=== PATIENT | female | born 1965 | race Caucasian/White ===

== ENCOUNTER → 2018-04-14 | Outpatient (CLI) | payer OTHER ==
[~2018-04-14] MED LIST: ACET-1487 PO; ALBUAER2 INH; ALPR-411 PO; ASPI81TA28 PO; CALCTAB5 PO; CHOL100010 PO; CYAN100T PO; DICL1GEL12 TOP; IPRASOL4 INH; LEVO50TA6 PO; LINA1CAP2 PO; LPT40 PO; METO25TA56 PO; MOME200A INH; OMEP20CA9 PO; PARO1TAB29 PO; PRED10TA PO; TIOTCAP INH; ZNF/4 PO
== END | disposition home or self-care (01) ==
LOC: C.LAB 15:24
PROVIDERS: ATTEND Nurse Practitioner Family
DX: J44.9 Chronic obstructive pulmonary disease, unspecified (principal); G47.34 Idiopathic sleep related nonobstructive alveolar hypoventilation

== ENCOUNTER 2019-08-23 18:13 | Inpatient (IN) ==
[2019-08-23] MEDS ORDERED: methylPREDNISolone 125 MG/2 ML VIAL IV STA (20:21)
[2019-08-23] MEDS ORDERED: ALBUT/IPRATROP 3MG/0.5MG NEB 3 ML VIAL NEB ONE (20:21)
--- NOTE | 2019-08-23 21:10 | XRay Report ---
XR chest 1V portable CLINICAL HISTORY: sob, fever COMPARISON STUDY: Chest CT February 04, 2016. FINDINGS: Severe emphysema is noted. Postoperative findings within the left lung apex are noted. No p neumothorax or pleural effusion. There is no consolidation to suggest pneumonia. Cardiomediastinal si lhouette is normal. Appearance of the chest is unchanged. IMPRESSION: 1. No acute cardiopulmonary findings. 2. Severe emphysema. Electronically signed by: Shaheed Xiong M.D. 08/23/2019 9:09 PM
[2019-08-23 21:14] LABS: Basophils # (auto) 0.02 K/uL (0-0.2); Basophils % (auto) 0.1 %; Eosinophils # (auto) 0.22 K/uL (0-0.5); Eosinophils % (auto) 1.5 %; Hemoglobin 15.3 g/dL (12.0-16.0); Immature Granulocytes # (auto) 0.04 K/uL (0.00-0.02); Immature Granulocytes % (auto) 0.3 %; Lymphocytes # (auto) 2.85 K/uL (1.2-3.4); Mean Corpuscular Hemoglobin 33.7 pg (25-34); Mean Corpuscular Hgb Conc 35.6 g/dL (32-36); Mean Corpuscular Volume 94.7 fL (80-100); Mean Platelet Volume 9.6 fL (7.4-10.4); Monocytes # (auto) 0.78 K/uL (0.11-0.59); Monocytes % (auto) 5.2 %; Neutrophils # (auto) 11.07 K/uL (1.4-6.5); Neutrophils % (auto) 73.9 %; Platelet Count 328 K/uL (130-400); RDW Coefficient of Variation 13.1 % (11.5-14.5); RDW Standard Deviation 45.5 fL (36.4-46.3); Red Blood Count 4.54 M/uL (4.2-5.4); White Blood Count 14.98 K/uL (4.8-10.8)
[2019-08-23 21:29] LABS: INR 1.1 (0.9-1.1); Partial Thromboplastin Ratio 1.1; Partial Thromboplastin Time 28.8 Seconds (21.0-31.0); Prothrombin Time 11.3 Seconds (9.0-12.0)
[2019-08-23 21:53] LABS: Alanine Aminotransferase 31 U/L (12-78); Albumin Globulin Ratio 1.1 (0.9-2); Albumin Level 3.5 gm/dl (3.4-5.0); Alkaline Phosphatase 82 U/L (45-117); Aspartate Aminotransferase 11 U/L (15-37); BUN Creatinine Ratio 7.1 (10-20); Bilirubin,Total 0.7 mg/dl (0.2-1); Blood Urea Nitrogen 6 mg/dl (7-18); Calcium 8.7 mg/dl (8.5-10.1); Carbon Dioxide 33 mmol/L (21-32); Chloride 101 mmol/L (98-107); Creatinine Clr Calc Pharmacy 75.6 ml/min; Est GFR (African American) 94.8; Est GFR (Non-African American) 81.8; Globulin 3.2 gm/dl (2.5-4.0); Glucose 114 mg/dl (70-99); Lipase 42 U/L (73-393); Potassium 2.5 mmol/L (3.5-5.1); Sodium 140 mmol/L (136-145); Total Protein 6.7 gm/dl (6.4-8.2); Troponin I < 0.015 ng/ml (0-0.045)
[2019-08-23] MEDS ORDERED: POTASSIUM CHLORIDE 20 MEQ TABCR PO STA ×2 (21:57→23:46)
[2019-08-23] MEDS ORDERED: POTASSIUM CHLORIDE / WTR 10 MEQ/100 ML PLCT IV ONE (21:57)
[2019-08-23 22:39] LABS: Magnesium 2.3 mg/dl (1.8-2.4); Phosphorus 2.5 mg/dl (2.5-4.9); Thyroid Stimulating Hormone 2.67 uIu/ml (0.300-4.500)
[2019-08-23] MEDS ORDERED: MAGNESIUM SULFATE / D5W 1 GM/100 ML BAG IV STA (22:49)
[2019-08-23 23:18] LABS: Influenza A virus by PCR Neg for Influ A (Neg); Influenza B virus by PCR Neg for Influ B (Neg)
--- NOTE | 2019-08-23 23:43 | History & Physical Report ---
Date of Service August 23, 2019 Assessment & Plan (1) COPD exacerbation: Complicated bronchitis No sepsis Failed outpatient treatment Hemoptysis secondary to above Rule out PE given pleuritic chest pain complaints chronic systolic heart failure (EF 45% TTE 2017), patient euvolemic to dry CAD status post angioplasty/stent Hypokalemia secondary to emesis symptoms hypertension, slight elevated Abdominal pain nausea emesis secondary to acute viral gastroenteritis rule out bowel obstruction hx cerebellar angioma stable as per outpatient [facility] [place] neurosurgery follow-up 2015 Hyperglycemia secondary to recent outpatient steroid administration, possible prediabetes, outpatient hemoglobin A1c of 5.29 September 2018 Medical telemetry Doxycycline, nebs, prednisone course CT chest PE study RE hemoptysis, chest pain Pulmonary consult RE hemoptysis Trend H&H, appropriate to hold aspirin for now given hemoptysis symptoms Replace potassium CT abdomen pelvis RE abdominal pain Insulin sliding scale, basal insulin given anticipated hyperglycemia from steroid Rx, check hemoglobin A1c DVT prophylaxis. SCDs RE hemoptysis. May need anticoagulation if CT chest shows pulmonary embolism. Full code History of Present Illness Chief Complaint: Hemoptysis, S OB Primary Care Provider: Chery Khan MD History obtained from patient and records. Medical history significant for chronic systolic heart failure (EF 45% TTE 2018), CAD status post angioplasty/stent, COPD, history recurrent spontaneous pneumothorax status post thoracotomy, past tobacco abuse, hypertension, gastroparesis, neurofibromatosis, cerebellar angioma as per records, IBS constipation predominant Recent confinement November 2014 for COPD exacerbation. One week history of worsening junky cough symptoms occasionally blood streaked followed by emesis, pleuritic chest pain with palpitations and worsening shortness of breath. Generalized achy abdominal discomfort without diarrhea/dysuria symptoms. Unsure if she had sick contacts as she had visited a new grandchild in the hospital. 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 Respiratory PCR positive for rhinovirus/enterovirus. IV steroids administered. No improvement in symptoms. At the ER, patient received Solu-Medrol and neb treatment for COPD exacerbation. Medical History as above Surgical History : Current section, cervical conization, diagnostic laparoscopy, BTL, tonsillectomy, ganglion cyst removal, hernia repair, lung thoracotomy Family History : Rheumatoid arthritis, lymphoma, diabetes, heart disease, stroke Personal/Social history : Past tobacco abuse, occasional EtOH intake, disabled Allergies Allergy/AdvReac Type Severity Reaction Status Date / Time adhesive Allergy Unknown BANDAIDS Verified 10/01/19 20:35 SKIN ABRASION milk Allergy Unknown PATIENT Verified 08/23/19 20:35 REPORTS HIVES TO COOL WHIP Sulfa (Sulfonamide Allergy Unknown HIVES Verified 08/23/19 20:35 Antibiotics) tramadol Allergy Unknown . Verified 08/23/19 20:35 meperidine AdvReac Unknown MOOD SWINGS Verified 08/23/19 20:35 Home Medications Home Medications Medication Instructions Recorded Confirmed Type albuterol sulfate [Ventolin HFA] 2 puff INHALATION Q4H PRN #0 12/25/08 08/23/19 History metoprolol tartrate 25 mg PO QAM #0 02/26/11 08/23/19 History acetaminophen 650 mg PO Q8H PRN #0 tab 09/17/14 08/23/19 History omeprazole magnesium [Prilosec OTC] 20 mg PO BID #0 cap 09/17/14 08/23/19 History aspirin 81 mg PO QAM #0 12/12/14 08/23/19 History atorvastatin [Lipitor] 40 mg PO DAILY #0 12/12/14 08/23/19 History ipratropium-albuterol 3 ml INHALATION TID PRN #0 inh 12/12/14 08/23/19 History levothyroxine [Synthroid] 75 mcg PO QAM #0 12/12/14 08/23/19 History linaclotide [Linzess] 290 mcg PO DAILY PRN #0 12/12/14 08/23/19 History tizanidine 4 mg PO BID PRN #0 12/12/14 08/23/19 History thpjwobzpie-gjoaqears-ofresvxq 1 inh INHALATION QAM 08/23/19 08/23/19 History [Trelegy Ellipta] ondansetron HCl [Zofran] 4 mg PO QAM PRN 08/23/19 08/23/19 History Past Med/Surg History Social History Preferred Language: Mohawk Communication Ability: Effective Adult Remedial Education Instructor Required: No Beliefs That Will Affect Care: None Current Living Situation: Spouse Other Information That Helps Us Care for You: No Feels Safe at Home: Yes Safety Concerns: Feels Safe At This Time Smoking Status: Former smoker Tobacco Type: cigarettes ; Do You Dip or Chew Tobacco: No ; Second Hand Exposure: Yes ; Hx Alcohol Use: Yes Hx Substance Use: No Review of Systems Review of Systems: As per HPI, all 10 systems reviewed, all other ROS negative Physical Exam Physical Exam: GENERAL: Slightly uncomfortable, slightly anxious, no respiratory distress SKIN: Normal color, warm HEENT: [employer] palpebral conjunctivae, no ptosis, dry buccal mucosa NECK : Supple, no tenderness CHEST : Decreased breath sounds, expiratory wheezes , no tenderness HEART : Tachycardic, systolic murmur ABDOMEN: Some distention, nontender EXTREMITIES : No LE swelling/tenderness, no other conspicuous deformities noted NEUROLOGIC : Coherent, no facial asymmetry, no other gross focality Results & Data Vital Signs (Past 12 Hours) Vital Signs Temp Pulse Pulse Resp BP Pulse Ox 08/23/19 21:00 90 27 H 134/87 99 08/23/19 20:31 91 H 16 93 08/23/19 18:43 37.2 C 87 20 106/74 94 Laboratory Results Laboratory Results WBC 14.98 K/uL (4.8-10.8) H 08/23/19 19:46 RBC 4.54 M/uL (4.2-5.4) 08/23/19 19:46 Hgb 15.3 g/dL (12.0-16.0) 08/23/19 19:46 Hct 43.0 % (37-47) 08/23/19 19:46 MCV 94.7 fL (80-100) 08/23/19 19:46 MCH 33.7 pg (25-34) 08/23/19 19:46 MCHC 35.6 g/dL (32-36) 08/23/19 19:46 RDW Std Deviation 45.5 fL (36.4-46.3) 08/23/19 19:46 RDW Coeff of Akiko 13.1 % (11.5-14.5) 08/23/19 19:46 Plt Count 328 K/uL (130-400) 08/23/19 19:46 MPV 9.6 fL (7.4-10.4) 08/23/19 19:46 Immature Gran % (Auto) 0.3 % 08/23/19 19:46 Neut % (Auto) 73.9 % 08/23/19 19:46 Lymph % (Auto) 19.0 % 08/23/19 19:46 [place] % (Auto) 5.2 % 08/23/19 19:46 Eos % (Auto) 1.5 % 08/23/19 19:46 Baso % (Auto) 0.1 % 08/23/19 19:46 Immature Gran # (Auto) 0.04 K/uL (0.00-0.02) H 08/23/19 19:46 Neut # (Auto) 11.07 K/uL (1.4-6.5) H 08/23/19 19:46 Lymph # (Auto) 2.85 K/uL (1.2-3.4) 08/23/19 19:46 [place] # (Auto) 0.78 K/uL (0.11-0.59) H 08/23/19 19:46 Eos # (Auto) 0.22 K/uL (0-0.5) 08/23/19 19:46 Baso # (Auto) 0.02 K/uL (0-0.2) 08/23/19 19:46 PT 11.3 Seconds (9.0-12.0) 08/23/19 19:46 INR 1.1 (0.9-1.1) 08/23/19 19:46 APTT 28.8 Seconds (21.0-31.0) 08/23/19 19:46 PTT Ratio 1.1 08/23/19 19:46 Sodium 140 mmol/L (136-145) 08/23/19 19:46 Potassium 2.5 mmol/L (3.5-5.1) L* 08/23/19 19:46 Chloride 101 mmol/L (98-107) 08/23/19 19:46 Carbon Dioxide 33 mmol/L (21-32) H 08/23/19 19:46 Anion Gap 5.0 (3-11) 08/23/19 19:46 BUN 6 mg/dl (7-18) L 08/23/19 19:46 Creatinine 0.81 mg/dl (0.6-1.2) 08/23/19 19:46 Est Cr Clr Drug Dosing 75.6 ml/min 08/23/19 19:46 Est GFR ( Amer) 94.8 08/23/19 19:46 Est GFR (Non-Af Amer) 81.8 08/23/19 19:46 BUN/Creatinine Ratio 7.1 (10-20) L 08/23/19 19:46 Glucose 114 mg/dl (70-99) H 08/23/19 19:46 Lactate 1.1 mmol/L (0.4-2.0) 08/23/19 20:46 Calcium 8.7 mg/dl (8.5-10.1) 08/23/19 19:46 Phosphorus 2.5 mg/dl (2.5-4.9) 08/23/19 19:46 Magnesium 2.3 mg/dl (1.8-2.4) 08/23/19 19:46 Total Bilirubin 0.7 mg/dl (0.2-1) 08/23/19 19:46 AST 11 U/L (15-37) L 08/23/19 19:46 ALT 31 U/L (12-78) 08/23/19 19:46 Alkaline Phosphatase 82 U/L (45-117) 08/23/19 19:46 Troponin I < 0.015 ng/ml (0-0.045) 08/23/19 19:46 Total Protein 6.7 gm/dl (6.4-8.2) 08/23/19 19:46 Albumin 3.5 gm/dl (3.4-5.0) 08/23/19 19:46 Globulin 3.2 gm/dl (2.5-4.0) 08/23/19 19:46 Albumin/Globulin Ratio 1.1 (0.9-2) 08/23/19 19:46 Lipase 42 U/L (73-393) L 08/23/19 19:46 TSH 2.670 uIu/ml (0.300-4.500) 08/23/19 19:46 Influenza Type A Ag Neg for Influ A (Neg) 08/23/19 20:46 Influenza Type A (PCR) Neg for Influ A (Neg) 08/23/19 20:48 Influenza Type B Ag Neg for Influ B (Neg) 08/23/19 20:46 Influenza Type B (PCR) Neg for Influ B (Neg) 08/23/19 20:48 Diagnostic Findings Chest x-ray : Severe emphysema EKG as per my interpretation : Rate 80, NSR, normal axis, incomplete right bundle branch block, T wave flattening lateral leads
[2019-08-24] MEDS ORDERED: GLUCAGON FOR INJ 1 MG VIAL SQ PRN (00:10)
[2019-08-24] MEDS ORDERED: GLUCOSE 40% GEL 15 GM TUBE PO PRN (00:10)
[2019-08-24] MEDS ORDERED: DEXTROSE 50% 50 ML SYRINGE IV PRN (00:10)
[2019-08-24] MEDS ORDERED: OPTIRAY 320 125ml IV PRN (00:10)
[2019-08-24] MEDS ORDERED: GLUCOSE 10 TABS/TUBE PO PRN (00:10)
[2019-08-24] MEDS ORDERED: CARBOHYDRATES FOR HYPOGLYCEMIA PO PRN (00:10)
--- NOTE | 2019-08-24 00:42 | Emergency Department Note ---
Entered by Dottie Kirk acting as a scribe for Berlin Chen M.D. History of Present Illness General Chief complaint: Illness Stated complaint: FEVER, VOMITING, +ASTROVIRUS- <3 AND LUNG ISSUES Source: patient and family History of Present Illness Provider complaint: illness Onset (ago): week(s) 1 Pain Consistency: + other (episode) Maximum Pain Intensity: 7 Quality: + other (illness) Associated symptoms: + cough (productive with green mucous), + fever/chills, + nausea/vomiting and + other (gassy, hard to stand up, O2 sat has been running low in the 80's and worsens with movement, chest and back hurt when she breaths, drastic weight loss recently, thought she was having a heart attack 3 days ago) Treatments prior to arrival: NSAID (Tylenol) The patient is a 54 year old female who presents to the ED with complaints of an episode of an illness that started 1 week ago. The patient states that she saw her PCP and they said she had a virus so they prescribed her Solu-Medrol. The patient states that once the medication ran out, her fever and vomiting came back. The patient states that she feels gassy and it is hard to stand up. The patient notes that she also has a productive cough and has been bringing up green mucous. The patient states that she normally wears O2 at home, but notes that her O2 sat has been running low in the 80s. The patient states that her O2 sat decreases even more when she is moving around. The patient notes that her chest and back hurt when she breathes. Per daughter, the patient has lost a lot of weight recently secondary to trouble eating, nausea, vomiting and low oxygen levels. The patient states that she thought she was having a heart attack 3 days ago. The patient notes that she took Tylenol today to control the fever. Home Medications Home Medications Medication Instructions Recorded Confirmed Type albuterol sulfate [Ventolin HFA] 2 puff INHALATION Q4H PRN #0 12/25/08 08/23/19 History metoprolol tartrate 25 mg PO QAM #0 02/26/11 08/23/19 History acetaminophen 650 mg PO Q8H PRN #0 tab 09/17/14 08/23/19 History omeprazole magnesium [Prilosec OTC] 20 mg PO BID #0 cap 09/17/14 08/23/19 History aspirin 81 mg PO QAM #0 12/12/14 08/23/19 History atorvastatin [Lipitor] 40 mg PO DAILY #0 12/12/14 08/23/19 History ipratropium-albuterol 3 ml INHALATION TID PRN #0 inh 12/12/14 08/23/19 History levothyroxine [Synthroid] 75 mcg PO QAM #0 12/12/14 08/23/19 History linaclotide [Linzess] 290 mcg PO DAILY PRN #0 12/12/14 08/23/19 History tizanidine 4 mg PO BID PRN #0 12/12/14 08/23/19 History qydymwsggup-twpsemwav-hlfaxswd 1 inh INHALATION QAM 08/23/19 08/23/19 History [Trelegy Ellipta] ondansetron HCl [Zofran] 4 mg PO QAM PRN 08/23/19 08/23/19 History Allergies Allergy/AdvReac Type Severity Reaction Status Date / Time adhesive Allergy Unknown BANDAIDS Verified 08/23/19 20:35 SKIN ABRASION milk Allergy Unknown PATIENT Verified 08/23/19 20:35 REPORTS HIVES TO COOL WHIP Sulfa (Sulfonamide Allergy Unknown HIVES Verified 08/23/19 20:35 Antibiotics) tramadol Allergy Unknown . Verified 08/23/19 20:35 meperidine AdvReac Unknown MOOD SWINGS Verified 08/23/19 20:35 Past Med/Surg History Medical History Cellulitis (Acute) Gastroparesis (Chronic) Pneumothorax (Resolved) Acute bronchitis (Acute) Acute exacerbation of chronic obstructive pulmonary disease (COPD) (Acute) Asthma exacerbation in COPD (Acute) Hypokalemia (Acute) Seizure (Acute) Myocardial infarction Surgical History History of hernia repair Social History Preferred Language: Thai Feels Safe at Home: Yes Smoking Status: Former smoker Review of Systems See HPI for pertinent positives & negatives. and A total of 10 systems reviewed and were otherwise negative Physical Exam Vital Signs Vital Signs - 24 hr 08/23/19 18:43 08/23/19 20:31 08/23/19 21:00 Temperature 37.2 C Temperature Source Oral Sepsis Recent Fever Within 48 Hours No Sepsis New/Unexplained Change in Mental Status No Sepsis Action Taken by Nursing No Action Required Pulse Rate 87 90 Pulse Rate [Right Radial] 91 H Pulse Rate from SpO2 Sensor 92 H Pulse Rhythm Regular Pulse Strength Normal Respiratory Rate 20 16 27 H Respiratory Effort / Characteristics Non-Labored Spontaneous Non-Labored Spontaneous Respiratory Depth Normal Respiratory Pattern Regular Blood Pressure 106/74 134/87 Blood Pressure Mean 84 102 Blood Pressure Position Sitting Pulse Oximetry 94 93 99 Oxygen Delivery Method Room Air Room Air Nebulizer 08/23/19 22:00 08/23/19 23:00 08/24/19 00:22 Temperature Temperature Source Sepsis Recent Fever Within 48 Hours Sepsis New/Unexplained Change in Mental Status Sepsis Action Taken by Nursing Pulse Rate 100 H 109 H Pulse Rate [Right Radial] Pulse Rate from SpO2 Sensor 98 H 111 H 90 Pulse Rhythm Pulse Strength Respiratory Rate 22 29 H Respiratory Effort / Characteristics Respiratory Depth Respiratory Pattern Blood Pressure 128/68 122/98 128/82 Blood Pressure Mean 88 106 97 Blood Pressure Position Pulse Oximetry 92 95 92 Oxygen Delivery Method Room Air 08/24/19 00:30 Temperature Temperature Source Sepsis Recent Fever Within 48 Hours Sepsis New/Unexplained Change in Mental Status Sepsis Action Taken by Nursing Pulse Rate Pulse Rate [Right Radial] Pulse Rate from SpO2 Sensor Pulse Rhythm Pulse Strength Respiratory Rate Respiratory Effort / Characteristics Respiratory Depth Respiratory Pattern Blood Pressure Blood Pressure Mean Blood Pressure Position Pulse Oximetry Oxygen Delivery Method Room Air GENERAL: Awake, alert, fatigued-appearing HENT: Normocephalic, atraumatic. EYES: Normal conjunctiva. Sclera non-icteric. NECK: Supple. No nuchal rigidity. RESPIRATORY: Expiratory wheezes. Slight increased work of breathing. CARDIAC: Normal rate. Normal rhythm. Extremities warm and well perfused. GI: Soft, non-distended. Slight epigastric tenderness to palpation. No rebound. No masses. RECTAL: Deferred. MUSCULOSKELETAL: Atraumatic. Chest examination reveals no tenderness. LOWER EXTREMITIES: Calves are equal size bilaterally and non-tender. No edema NEURO: Normal sensorium. No sensory or motor deficits noted. No facial droop. SKIN: Warm and dry. No rash or jaundice noted. Course 2011: Past medical records reviewed. The patient was evaluated in room C9. A complete history and physical exam was performed. 2155: I updated the patient on the test results and plan fro admission. She verbally agrees and understands. 2202: I discussed the patient's case with Dr. Bethel Rogel Hospitalist. He will evaluate the patient for further management. Consultations Consultation #1: I discussed the patient's [facility] He will evaluate the patient for further management. Time: 22:03 Administered Medications Ioversol (Optiray 320 125ml) 118 ml IV ONCE PRN PRN Reason: Interaction Checking Stop: 08/28/19 00:09 Last Admin: 08/24/19 00:11 Dose: 118 ml Documented by: [id number] Discontinued Medications Albuterol (Duoneb) 12 ml NEB ONE ONE Stop: 08/23/19 20:22 Last Admin: 08/23/19 20:28 Dose: 12 ml Documented by: [id number] Potassium Chloride (K Pete / Wtr) 10 meq in 100 mls @ 100 mls/hr IV ONE ONE Stop: 08/23/19 22:56 Last Infusion: 08/23/19 23:16 Dose: 0 mls/hr Documented by: [id number] Admin: 08/23/19 22:20 Dose: 100 mls/hr Documented by: [id number] Methylprednisolone (Solumedrol) 125 mg IV NOW STA Stop: 08/23/19 20:22 Last Admin: 08/23/19 20:45 Dose: 125 mg Documented by: [id number] Potassium Chloride (Klor-Con M20) 40 meq PO NOW STA Stop: 08/23/19 21:58 Last Admin: 08/24/19 00:23 Dose: 40 meq Documented by: [id number] Medical Decision Making Differential Diagnosis Differential diagnosis: Etiologies such as infections, reactive airway disease, COPD, pneumonia, pleural effusion, pulmonary edema, ARDS, pneumothorax, CHF, cardiac ischemia, cardiac tamponade, dysrhythmia, anemia, pulmonary embolism, musculoskeletal, gastrointestinal process, as well as others were entertained. Medical Records Attestation: I reviewed the patient's medical records. Home Medications Current Medication List: was personally reviewed by me Laboratory Data Attestation: I reviewed the patient's lab results. Result diagrams: 08/23/19 19:46 08/23/19 19:46 Lab Results 08/23/19 08/23/19 08/23/19 Range/Units 19:46 19:46 19:46 WBC 14.98 H (4.8-10.8) K/uL RBC 4.54 (4.2-5.4) M/uL Hgb 15.3 (12.0-16.0) g/dL Hct 43.0 (37-47) % MCV 94.7 (80-100) fL MCH 33.7 (25-34) pg MCHC 35.6 (32-36) g/dL RDW Std Deviation 45.5 (36.4-46.3) fL RDW Coeff of Akiko 13.1 (11.5-14.5) % Plt Count 328 (130-400) K/uL MPV 9.6 (7.4-10.4) fL Immature Gran % (Auto) 0.3 % Neut % (Auto) 73.9 % Lymph % (Auto) 19.0 % [place] % (Auto) 5.2 % Eos % (Auto) 1.5 % Baso % (Auto) 0.1 % Immature Gran # (Auto) 0.04 H (0.00-0.02) K/uL Neut # (Auto) 11.07 H (1.4-6.5) K/uL Lymph # (Auto) 2.85 (1.2-3.4) K/uL [place] # (Auto) 0.78 H (0.11-0.59) K/uL Eos # (Auto) 0.22 (0-0.5) K/uL Baso # (Auto) 0.02 (0-0.2) K/uL PT 11.3 (9.0-12.0) Seconds INR 1.1 (0.9-1.1) APTT 28.8 (21.0-31.0) Seconds PTT Ratio 1.1 Sodium 140 (136-145) mmol/L Potassium 2.5 L* (3.5-5.1) mmol/L Chloride 101 (98-107) mmol/L Carbon Dioxide 33 H (21-32) mmol/L Anion Gap 5.0 (3-11) BUN 6 L (7-18) mg/dl Creatinine 0.81 (0.6-1.2) mg/dl Est Cr Clr Drug Dosing 75.6 ml/min Est GFR ( Amer) 94.8 Est GFR (Non-Af Amer) 81.8 BUN/Creatinine Ratio 7.1 L (10-20) Glucose 114 H (70-99) mg/dl Lactate (0.4-2.0) mmol/L Calcium 8.7 (8.5-10.1) mg/dl Phosphorus (2.5-4.9) mg/dl Magnesium (1.8-2.4) mg/dl Total Bilirubin 0.7 (0.2-1) mg/dl AST 11 L (15-37) U/L ALT 31 (12-78) U/L Alkaline Phosphatase 82 (45-117) U/L Troponin I < 0.015 (0-0.045) ng/ml Total Protein 6.7 (6.4-8.2) gm/dl Albumin 3.5 (3.4-5.0) gm/dl Globulin 3.2 (2.5-4.0) gm/dl Albumin/Globulin Ratio 1.1 (0.9-2) Lipase 42 L (73-393) U/L TSH (0.300-4.500) uIu/ml Influenza Type A Ag (Neg) Influenza Type A (PCR) (Neg) Influenza Type B Ag (Neg) Influenza Type B (PCR) (Neg) 08/23/19 08/23/19 08/23/19 Range/Units 19:46 20:46 20:46 WBC (4.8-10.8) K/uL RBC (4.2-5.4) M/uL Hgb (12.0-16.0) g/dL Hct (37-47) % MCV (80-100) fL MCH (25-34) pg MCHC (32-36) g/dL RDW Std Deviation (36.4-46.3) fL RDW Coeff of Akiko (11.5-14.5) % Plt Count (130-400) K/uL MPV (7.4-10.4) fL Immature Gran % (Auto) % Neut % (Auto) % Lymph % (Auto) % [place] % (Auto) % Eos % (Auto) % Baso % (Auto) % Immature Gran # (Auto) (0.00-0.02) K/uL Neut # (Auto) (1.4-6.5) K/uL Lymph # (Auto) (1.2-3.4) K/uL [place] # (Auto) (0.11-0.59) K/uL Eos # (Auto) (0-0.5) K/uL Baso # (Auto) (0-0.2) K/uL PT (9.0-12.0) Seconds INR (0.9-1.1) APTT (21.0-31.0) Seconds PTT Ratio Sodium (136-145) mmol/L Potassium (3.5-5.1) mmol/L Chloride (98-107) mmol/L Carbon Dioxide (21-32) mmol/L Anion Gap (3-11) BUN (7-18) mg/dl Creatinine (0.6-1.2) mg/dl Est Cr Clr Drug Dosing ml/min Est GFR ( Amer) Est GFR (Non-Af Amer) BUN/Creatinine Ratio (10-20) Glucose (70-99) mg/dl Lactate 1.1 (0.4-2.0) mmol/L Calcium (8.5-10.1) mg/dl Phosphorus 2.5 (2.5-4.9) mg/dl Magnesium 2.3 (1.8-2.4) mg/dl Total Bilirubin (0.2-1) mg/dl AST (15-37) U/L ALT (12-78) U/L Alkaline Phosphatase (45-117) U/L Troponin I (0-0.045) ng/ml Total Protein (6.4-8.2) gm/dl Albumin (3.4-5.0) gm/dl Globulin (2.5-4.0) gm/dl Albumin/Globulin Ratio (0.9-2) Lipase (73-393) U/L TSH 2.670 (0.300-4.500) uIu/ml Influenza Type A Ag Neg for Influ A (Neg) Influenza Type A (PCR) (Neg) Influenza Type B Ag Neg for Influ B (Neg) Influenza Type B (PCR) (Neg) 08/23/19 Range/Units 20:48 WBC (4.8-10.8) K/uL RBC (4.2-5.4) M/uL Hgb (12.0-16.0) g/dL Hct (37-47) % MCV (80-100) fL MCH (25-34) pg MCHC (32-36) g/dL RDW Std Deviation (36.4-46.3) fL RDW Coeff of Akiko (11.5-14.5) % Plt Count (130-400) K/uL MPV (7.4-10.4) fL Immature Gran % (Auto) % Neut % (Auto) % Lymph % (Auto) % [place] % (Auto) % Eos % (Auto) % Baso % (Auto) % Immature Gran # (Auto) (0.00-0.02) K/uL Neut # (Auto) (1.4-6.5) K/uL Lymph # (Auto) (1.2-3.4) K/uL [place] # (Auto) (0.11-0.59) K/uL Eos # (Auto) (0-0.5) K/uL Baso # (Auto) (0-0.2) K/uL PT (9.0-12.0) Seconds INR (0.9-1.1) APTT (21.0-31.0) Seconds PTT Ratio Sodium (136-145) mmol/L Potassium (3.5-5.1) mmol/L Chloride (98-107) mmol/L Carbon Dioxide (21-32) mmol/L Anion Gap (3-11) BUN (7-18) mg/dl Creatinine (0.6-1.2) mg/dl Est Cr Clr Drug Dosing ml/min Est GFR ( Amer) Est GFR (Non-Af Amer) BUN/Creatinine Ratio (10-20) Glucose (70-99) mg/dl Lactate (0.4-2.0) mmol/L Calcium (8.5-10.1) mg/dl Phosphorus (2.5-4.9) mg/dl Magnesium (1.8-2.4) mg/dl Total Bilirubin (0.2-1) mg/dl AST (15-37) U/L ALT (12-78) U/L Alkaline Phosphatase (45-117) U/L Troponin I (0-0.045) ng/ml Total Protein (6.4-8.2) gm/dl Albumin (3.4-5.0) gm/dl Globulin (2.5-4.0) gm/dl Albumin/Globulin Ratio (0.9-2) Lipase (73-393) U/L TSH (0.300-4.500) uIu/ml Influenza Type A Ag (Neg) Influenza Type A (PCR) Neg for Influ A (Neg) Influenza Type B Ag (Neg) Influenza Type B (PCR) Neg for Influ B (Neg) Imaging Data Radiologist's Impression: Radiology results as stated below per my review and the radiologist's interpretation: XR chest 1V portable CLINICAL HISTORY: sob, fever COMPARISON STUDY: Chest CT February 04, 2016. FINDINGS: Severe emphysema is noted. Postoperative findings within the left lung apex are noted. No pneumothorax or pleural effusion. There is no consolidation to suggest pneumonia. Cardiomediastinal silhouette is normal. Appearance of the chest is unchanged. IMPRESSION: 1. No acute cardiopulmonary findings. 2. Severe emphysema. Electronically signed by: Shaheed Xiong M.D. 08/23/2019 9:09 PM ECG Data Attestation: I personally reviewed and interpreted this ECG as follows: Indication: vomiting Rate (beats per minute): 79 Rhythm: sinus with SA Findings: + RBBB (incomplete); no ST elevation Blood Pressure Blood Pressure Findings: Elevated blood pressure Blood Pressure Disposition: further management by hospitalist VIJI Narrative Patient is a 54-year-old female with a history of COPD and gastroparesis as well as a prior cardiac history presenting today complaining of fever and vomiting intermittently over the past week. Had some breathing issues last week and cough associated with this. Her outpatient administrative hearing officer gave her 2 days of Solu-Medrol in the outpatient setting. Tested positive for a viral illness. Today worsened again with fever and difficulty breathing. States her pulse ox has dropped into the 80s and normally does not wear oxygen during the day. Wheezing on exam. X-ray obtained to exclude pneumonia. Doubt pneumothorax, PE, dissection. EKG troponin was sent to exclude ACS. Basic labs are completed including lipase. No significant abdominal tenderness and doubt acute surgical intra-abdominal process. No evidence of hepatitis or pancreatitis. Given Solu- Medrol here and a DuoNeb. Patient did have some improvement of respiratory status with this. Flu antigen testing negative. Lactate normal. Leukocytosis of almost 15 notable. Patient hypokalemic with a potassium of 2.5. Oral and IV repletion ordered. Likely COPD exacerbation now requiring electrolyte correction. Again do not see evidence of pneumonia.Discussed with the patient recommendation for admission and she was in agreement. Discussed with the [facility] betancourt hospitalist. Impression & Plan COPD exacerbation, Hypokalemia, Nausea Discharge Plan Visit Data Chief Complaint: Illness Stated Complaint: FEVER, VOMITING, +ASTROVIRUS- <3 AND LUNG ISSUES ED Provider: Berlin Chen Discharge Problem: COPD exacerbation, Hypokalemia, Nausea Patient Disposition: Being Evaluated by Hospitalist Discharge Instructions Interventions: ED Discharge Assessment Last Done: 08/24/19 00:30 Forms Stand Alone Forms: My [facility] Prescriptions Prescriptions: No Action albuterol sulfate [Ventolin HFA] 90 mcg/actuation Hfa Aerosol Inhaler 2 puff INHALATION Q4H PRN (Reason: Shortness Of Breath) Qty: 0 RF: 0 metoprolol tartrate 25 mg Tablet 25 mg PO QAM Qty: 0 RF: 0 acetaminophen 325 mg Tablet 650 mg PO Q8H PRN (Reason: Pain) Qty: 0 RF: 0 Prilosec OTC 20 mg Tablet,Delayed Release (Dr/Ec) 20 mg PO BID Qty: 0 RF: 0 atorvastatin [Lipitor] 40 mg Tablet 40 mg PO DAILY Qty: 0 RF: 0 ipratropium-albuterol 0.5 mg-3 mg(2.5 mg base)/3 mL Solution For Nebulization 3 ml INHALATION TID PRN (Reason: copd) Qty: 0 RF: 0 tizanidine 4 mg Tablet 4 mg PO BID PRN (Reason: Muscle Spasm) Qty: 0 RF: 0 levothyroxine [Synthroid] 75 mcg Tablet 75 mcg PO QAM Qty: 0 RF: 0 Linzess 290 mcg Capsule 290 mcg PO DAILY PRN (Reason: Gastrointestinal Spasms Or Cramping) Qty: 0 RF: 0 aspirin 81 mg Tablet,Delayed Release (Dr/Ec) 81 mg PO QAM Qty: 0 RF: 0 ondansetron HCl [Zofran] 4 mg Tablet 4 mg PO QAM PRN (Reason: Nausea) RF: 0 Trelegy Ellipta 100-62.5-25 mcg Blister With Device 1 inh INHALATION QAM RF: 0 Referrals Referrals: Chery Khan MD [Primary Care Provider] - The scribe's documentation has been prepared under my direction and personally reviewed by me in its entirety. I confirm that the note above accurately reflects all work, treatment, procedures, and medical decision making performed by me.
[2019-08-24] MEDS ORDERED: DOXYCYCLINE HYCLATE 100 MG in DEXTROSE 5% 100 ML IV STA (01:37)
[2019-08-24] MEDS ORDERED: PROMETHAZINE HCL 12.5 MG in SODIUM CHLORIDE 0.9% 50 ML IV PRN (01:59)
[2019-08-24] MEDS ORDERED: NITROGLYCERIN SL 0.4 MG/TAB TAB SL PRN (01:59)
[2019-08-24] MEDS ORDERED: OXYCODONE HCL IR 5 MG TAB (IMMEDIATE RELEASE) PO PRN (01:59)
[2019-08-24] MEDS ORDERED: TIZANIDINE HCL 4 MG TABLET PO PRN (01:59)
[2019-08-24] MEDS ORDERED: MoRPHine SULFATE 2 MG/ML CARP IV PRN (01:59)
[2019-08-24] MEDS ORDERED: ACETAMINOPHEN 325 MG TAB PO PRN (01:59)
[2019-08-24] MEDS ORDERED: XOPENEX/ATROVENT 1.25mg/0.5MG NEB COMBO NEB SCH (01:59)
[2019-08-24] MEDS: METOPROLOL SUCC 25MG EXT REL TAB PO SCH (02:26)
[2019-08-24] MEDS ORDERED: LANTUS PER UNIT CHARGE SQ ONE (02:30)
[2019-08-24] MEDS: INSULIN ASPART 100 UNITS/ML 3 ML PEN SC SCH ×5 (02:31→20:33)
[2019-08-24] MEDS ORDERED: POTASSIUM CHLORIDE 10 MEQ TABCR PO ONE (02:45)
[2019-08-24] MEDS: POTASSIUM CHLORIDE 40 MEQ in SODIUM CHLORIDE 0.9% 1000ML 1,000 ML IV SCH ×2 (02:48→15:51)
[2019-08-24] MEDS ORDERED: INSULIN GLARGINE SOLOSTAR 100 UNITS/ML 3 ML PEN SQ STA (03:01)
[2019-08-24] MEDS: TRAZODONE HCL 100 MG TAB PO SCH ×2 (03:54→20:32)
[2019-08-24 05:39] LABS: Appearance Urine Clear (Clear); Bacteria Urine Automated 4+ (Negative); Bilirubin Urine Negative (Negative); Blood Urine Negative (Negative); Cast Urine Automated 0 /lpf (0-5); Color Urine Yellow; Glucose Urine UA 2+ (Negative); Ketones Urine Negative (Negative); Leukocyte Esterase Urine Negative (Negative); Nitrite Urine Positive (Negative); Protein Urine Negative (Negative); RBC Urine Automated 0-4 /hpf (0-4); Urobilinogen Urine Negative (Negative)
[2019-08-24] MEDS: LEVOTHYROXINE SODIUM 75 MCG TABLET PO SCH (06:14)
[2019-08-24] MEDS ORDERED: INFLUENZA ADMINISTRATION CHARGE ONE (06:45)
[2019-08-24] MEDS ORDERED: INFLUENZA VIRUS QUAD VACCINE 0.5 ML SYR IM ONE (06:45)
--- NOTE | 2019-08-24 06:51 | CT Scan Report ---
CT ANGIOGRAM OF THE CHEST CLINICAL HISTORY: Severe cough, shortness of breath. Possible pulmonary embolism. COMPARISON STUDY: 02/04/2016 TECHNIQUE: Following the IV administration of 118 mL of Optiray-320, CT angiogram of the thorax was p erformed from the thoracic inlet to the lung bases utilizing the pulmonary embolus protocol. Images a re reviewed in the axial, sagittal, and coronal planes. IV contrast was administered without complica tion. MIP imaging was performed. A dose lowering technique was utilized adhering to the principles o f ALARA. CT DOSE: 548.99 mGy.cm FINDINGS: There is hepatic steatosis. No pathologically enlarged axillary mediastinal or hilar lymph nodes were visualized. There was no evidence of thoracic aortic dilatation. There were no pulmonary artery filling defects to indicate acute pulmonary embolism. No pleural effusions are visualized. There is pulmonary emphysema. There is apical scarring. There is a stable 6 mm left apical pulmonary nodule. There is no acute parenchymal consolidation. There are areas of lower lobe bronchial wall thi ckening and mucous plugging. There is a focally dilated 6 mm right lower lobe bronchus with surroundi ng bronchial wall thickening, versus a small cavitary nodule. A six-month follow-up CT scan is recomm ended.. There is a stable 1 cm left paraspinal nodule. There is a small pericardial effusion. IMPRESSION: 1. No evidence of acute pulmonary embolism 2. Severe pulmonary emphysema 3. No evidence of acute parenchymal consolidation 4. Lower lobe bronchial wall thickening and mucous plugging 5. Focally dilated 6 mm right lower lobe bronchus versus small cavitary nodule. A six-month follow-up CT scan is recommended 6. Stable 1 cm left paraspinal nodule Electronically signed by: Umer Lam M.D. 08/24/2019 6:49 AM
[2019-08-24 07:33] LABS: Basophils # (auto) 0.01 K/uL (0-0.2); Basophils % (auto) 0.1 %; Hematocrit (blood only) 40.8 % (37-47); Hemoglobin 14.1 g/dL (12.0-16.0); Immature Granulocytes # (auto) 0.04 K/uL (0.00-0.02); Immature Granulocytes % (auto) 0.4 %; Lymphocytes # (auto) 0.89 K/uL (1.2-3.4); Lymphocytes % (auto) 8.2 %; Mean Corpuscular Hemoglobin 32.9 pg (25-34); Mean Corpuscular Hgb Conc 34.6 g/dL (32-36); Mean Corpuscular Volume 95.1 fL (80-100); Mean Platelet Volume 9.5 fL (7.4-10.4); Monocytes % (auto) 0.9 %; Neutrophils # (auto) 9.78 K/uL (1.4-6.5); Neutrophils % (auto) 90.4 %; Platelet Count 276 K/uL (130-400); RDW Coefficient of Variation 13.2 % (11.5-14.5); RDW Standard Deviation 45.9 fL (36.4-46.3); Red Blood Count 4.29 M/uL (4.2-5.4); White Blood Count 10.82 K/uL (4.8-10.8)
[2019-08-24] MEDS: LEVALBUTEROL 1.25MG/0.5ML NEB INH SCH ×3 (07:54→18:42)
[2019-08-24] MEDS: IPRATROPIUM BROMIDE NEB SOLN 0.02% 2.5 ML VIAL INH SCH ×3 (07:55→18:42)
[2019-08-24 08:01] LABS: Estimated Average Glucose 120 mg/dl; Hemoglobin A1C 5.8 % (4.5-5.6)
--- NOTE | 2019-08-24 08:01 | CT Scan Report ---
CT abd pelvis IV con only CLINICAL HISTORY: 54 years-old Female presenting with severe coughing and vomiting today, generalized abdominal pain. TECHNIQUE: Multidetector CT of the abdomen and pelvis was performed after the administration of intra venous contrast. IV contrast: 180 mL of Optiray 320. One or more dose lowering techniques were used c onsistent with the principles of ALARA (as low as reasonably achievable), including automatic exposur e control, mA or kV adjustment to individual patient size, and/or use of iterative reconstruction. COMPARISON: PET/CT from 2012. CT DOSE (mGy.cm): The estimated cumulative dose is 548.99. FINDINGS: Distribution System Operator topogram: Unremarkable. Lung bases: Normal heart size. No pericardial or pleural effusion. Centrilobular emphysema, which is severe. Cystic nodule at the right lung base measuring 7 mm (series 6 image 25). Please see separatel y dictated CTA chest. Liver: Normal morphology. Density consistent with hepatic steatosis. More severe focal fat deposition or perfusional variation noted along the fissure for the ligament teres. No focal lesion. Patent hep atic vasculature. Biliary: No intrahepatic or extrahepatic biliary ductal dilatation. Gallbladder likely physiologicall y distended. No gallbladder wall thickening or pericholecystic diameter change. Pancreas: Mild parenchymal atrophy. Spleen: Normal. Adrenal glands: Normal. 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 No nephrolithiasis or hydronephrosis. Bladder: Circumferential bladder wall thickening. Pelvic organs: Uterus and ovaries normal. Bowel: Apparent mild wall thickening of the ascending colon and cecum with suspected intramural fat d eposition, nonspecific and likely chronic. Normal appendix. No bowel obstruction. Peritoneal cavity: No free fluid or intraperitoneal gas. Lymph nodes: No enlarged lymph nodes in the abdomen or pelvis. Vasculature: Atherosclerosis of the normal caliber abdominal aorta. IVC patent. Abdominal wall: Normal. Musculoskeletal: Degenerative changes of the spine. IMPRESSION: 1. Bladder wall thickening could be due to underdistention or suggest cystitis. Correlate with urina lysis. 2. No other evidence of acute intra-abdominal pathology. Electronically signed by: Issa Bethea M.D. 08/24/2019 8:00 AM
[2019-08-24 08:10] LABS: BUN Creatinine Ratio 6.3 (10-20); Blood Urea Nitrogen 5 mg/dl (7-18); Calcium 8.7 mg/dl (8.5-10.1); Carbon Dioxide 28 mmol/L (21-32); Chloride 106 mmol/L (98-107); Creatinine Clr Calc Pharmacy 84.5 ml/min; Est GFR (African American) 107.5; Est GFR (Non-African American) 92.7; Glucose 141 mg/dl (70-99); Potassium 3.7 mmol/L (3.5-5.1); Sodium 140 mmol/L (136-145)
[2019-08-24] MEDS: BENZONATATE 100 MG CAPSULE PO PRN ×2 (08:18→17:42)
[2019-08-24 08:19] LABS: Troponin I < 0.015 ng/ml (0-0.045)
[2019-08-24] MEDS: predniSONE 20 MG TAB PO SCH (08:19)
[2019-08-24] MEDS: ATORVASTATIN 40 MG TAB PO SCH (08:19)
[2019-08-24] MEDS: PANTOprazole 40 MG TAB PO SCH ×2 (08:19→20:32)
[2019-08-24] MEDS ORDERED: ONDANSETRON 4 MG OD TAB PO PRN (10:35)
--- NOTE | 2019-08-24 12:18 | Pulmonary Consultation ---
Date of Consultation August 24, 2019 Assessment & Plan (1) Acute exacerbation of chronic obstructive pulmonary disease (COPD): Patient follows with [facility] medical group at [facility] and has been seen both in [place] and in [place] Most recently seen in the office as an outpatient received IM injection of methylprednisolone on 08/20/2019 Patient received methylprednisolone on arrival in the emergency department as well and is currently on 40 mg p.o. of prednisone daily Would agree with steroids but would change back to methylprednisolone 40 mg 3 times daily Patient also afebrile with no leukocytosis * Continue 5-day course of antibiotics There is no sputum production. Will provide antitussive support Patient observed with liquid diet. Appears to have some level of aspiration * Place swallow eval request Continue supportive care (2) Pneumothorax: History of resolved pneumothorax Prior pneumothoraces included spontaneous pneumothorax on the right and left Patient had blebectomy completed on the left at [facility] Patient with pleurodesis on the right at [facility] Last pneumothorax was several years ago Severe emphysema on CT scan Follow clinically (3) Hypokalemia: Potassium is repleted Magnesium 2.3 Follow serial labs Thank you for including us in the care of this patient. Please refer to Dr. Munoz's addendum for further recommendations. (4) Pulmonary nodule: Patient has left upper lobe pulmonary nodule which has been present since 2012 unchanged. Patient has right lower lobe nodule like density could very well likely be inflamed bronc. We will just repeat CT chest in 6 months. Present on Admission?: Yes Supervising Physician Co-Signing Physician Notes I saw and evaluated the patient with Bihn Vargas, and agree with findings and plan as documented in the note. Patient CAT scan personally reviewed and compared to previous CAT scan the last one being in 2011. Patient has severe paraseptal and central emphysema. Left upper lobe nodule has been unchanged since 2012. Right lower lobe nodular density we will follow-up in 6 months. Patient is already on triple therapy at home. Continue with steroids, antibiotic for 5 days. Inhaled therapy. If patient still has more than 1 COPD exacerbation in a year chronic azithromycin could be considered. [facility] Will let them decide whether the patient is candidate for Roflumilast as they have her PFTs. History of Present Illness Attending Physician: Prince Ugalde MD History of Present Illness Attending: Dr. Munoz Is a very pleasant 54-year-old female with a long history of emphysema originally diagnosed when she was 24 years old. She is a smoking history beginning at age 11. She quit smoking approximately 1 year ago. She typically would smoke 1 pack/day. She is and her also is a smoker but smokes just 3 to 4 cigarettes/day. [place] she [place] part of a family. She has a history of blebectomy on the left and pleuro desis on the right for multiple spontaneous pneumothoraces. She is followed with [facility] pulmonology for many years. She is scheduled for repeat PFTs at the end of this month at [facility] with the [facility] pulmonology group. The patient was not feeling well for the past several days and presented emergency department where she was found to be in respiratory distress as well as hypokalemic with a potassium of 2.5. Her other electrolytes were balanced including a magnesium level of 2.3 Patient states that she has intermittently followed with pulmonary and is much as after Dr. Perez had his stroke there was no real consistent pulmonology coverage. She has continued with mandatory testing and is mentioned above is scheduled for PFTs at the end of this month. She is on supplemental O2 at 2 L/min via nasal cannula at bedtime and during the day as needed with exertion. She does have a personal pulse oximeter and states that the lowest her SaO2 is been is 87% with exertion. The patient does not have CPAP or other noninvasive ventilator modalities at home. She does have a history of recurrent bronchitis as well as history of pneumonia. Home pulmonary medications include DuoNeb nebulizer which she uses up to 3 times a day when she is short of breath and feeling ill. She also has a albuterol rescue inhaler. She was recently started on Trelegy Ellipta. She denies prev ious use of Pulmicort, Symbicort, or Spiriva. She was previously on Advair Diskus but reports that this caused nausea and vomiting. The patient denies any history of aspiration. She has no fever, chills, sweats, rigors. She has no hemoptysis. She denies any chest pain or tightness other than associated with long periods of cough. She has no other acute complaints at this time. Allergies Allergy/AdvReac Type Severity Reaction Status Date / Time adhesive Allergy Unknown BANDAIDS Verified 08/23/19 20:35 SKIN ABRASION milk Allergy Unknown PATIENT Verified 08/23/19 20:35 REPORTS HIVES TO COOL WHIP Sulfa (Sulfonamide Allergy Unknown HIVES Verified 08/23/19 20:35 Antibiotics) tramadol Allergy Unknown . Verified 08/23/19 20:35 meperidine AdvReac Unknown MOOD SWINGS Verified 08/23/19 20:35 Home Medications Home Medications Medication Instructions Recorded Confirmed Type albuterol sulfate [Ventolin HFA] 2 puff INHALATION Q4H PRN #0 12/25/08 08/23/19 History metoprolol tartrate 25 mg PO QAM #0 02/26/11 08/23/19 History acetaminophen 650 mg PO Q8H PRN #0 tab 09/17/14 08/23/19 History omeprazole magnesium [Prilosec OTC] 20 mg PO BID #0 cap 09/17/14 08/23/19 History aspirin 81 mg PO QAM #0 12/12/14 08/23/19 History atorvastatin [Lipitor] 40 mg PO DAILY #0 12/12/14 08/23/19 History ipratropium-albuterol 3 ml INHALATION TID PRN #0 inh 12/12/14 08/23/19 History levothyroxine [Synthroid] 75 mcg PO QAM #0 12/12/14 08/23/19 History linaclotide [Linzess] 290 mcg PO DAILY PRN #0 12/12/14 08/23/19 History tizanidine 4 mg PO BID PRN #0 12/12/14 08/23/19 History uuctedwcoti-nvkhqwwgt-ihnurkkq 1 inh INHALATION QAM 08/23/19 08/23/19 History [Trelegy Ellipta] ondansetron HCl [Zofran] 4 mg PO QAM PRN 08/23/19 08/23/19 History Patient History Medical History Cellulitis (Acute) Gastroparesis (Chronic) Pneumothorax (Resolved) Acute bronchitis (Acute) Acute exacerbation of chronic obstructive pulmonary disease (COPD) (Acute) Asthma exacerbation in COPD (Acute) Hypokalemia (Acute) Seizure (Acute) Myocardial infarction Surgical History History of hernia repair Family History Father Lung disease Severe emphysema Social History Preferred Language: Malawian Communication Ability: Effective Shank Piece Tacker Required: No Beliefs That Will Affect Care: None Current Living Situation: Spouse Other Information That Helps Us Care for You: No Feels Safe at Home: Yes Safety Concerns: Feels Safe At This Time Smoking Status: Former smoker Tobacco Type: cigarettes ; Age Started Using Tobacco: 11 ; Age Quit Using Tobacco: 53 ; packs per day: 1 ; Years Smoked: 42 ; Do You Dip or Chew Tobacco: No ; Number of Years Since Quit: 1 ; Second Hand Exposure: Yes ; Hx Alcohol Use: Yes Hx Substance Use: No Review of Systems Review of Systems: All systems reviewed & are unremarkable except as noted in HPI & below Physical Exam Physical Exam: GENERAL : No acute distress at rest. Patient did develop significant cough with talking EYES: No icterus, gaze conjugate NOSE: No evidence of epistaxis MOUTH: No lesions or candidiasis. Patient wears upper and lower dentures which are currently not in place. No evidence of abrasion to the gingiva NECK: Supple. No evidence of stridor LUNGS: Scattered wheezes. Decreased breath sounds at the bases HEART: Regular, rate controlled in the 80s ABDOMEN: Soft, NT, ND, BS Present EXTREMITIES: No LE edema, pedal pulses intact NEURO: A&OX3 Results & Data Vital Signs (Past 12 Hours) Vital Signs Temp Pulse Pulse Pulse Resp BP BP 08/24/19 07:58 78 16 08/24/19 07:45 71 08/24/19 07:43 36.6 C 74 18 96/64 L 08/24/19 05:29 85 08/24/19 04:09 36.8 C 84 20 145/60 H 08/24/19 03:12 36.7 C 75 20 93/60 L 08/24/19 00:22 128/82 Pulse Ox 08/24/19 07:58 92 08/24/19 07:45 08/24/19 07:43 95 08/24/19 05:29 08/24/19 04:09 90 08/24/19 03:12 96 08/24/19 00:22 92 Laboratory Results 08/24/19 06:53 08/24/19 06:[address] ANGIOGRAM OF THE CHEST CLINICAL HISTORY: Severe cough, shortness of breath. Possible pulmonary embolism. COMPARISON STUDY: 02/04/2016 TECHNIQUE: Following the IV administration of 118 mL of Optiray-320, CT angiogram of the thorax was performed from the thoracic inlet to the lung bases utilizing the pulmonary embolus protocol. Images are reviewed in the axial, sagittal, and coronal planes. IV contrast was administered without complication. MIP imaging was performed. A dose lowering technique was utilized adhering to the principles of ALARA. CT DOSE: 548.99 mGy.cm FINDINGS: There is hepatic steatosis. No pathologically enlarged axillary mediastinal or hilar lymph nodes were visualized. There was no evidence of thoracic aortic dilatation. There were no pulmonary artery filling defects to indicate acute pulmonary embolism. No pleural effusions are visualized. There is pulmonary emphysema. There is apical scarring. There is a stable 6 mm left apical pulmonary nodule. There is no acute parenchymal consolidation. There are areas of lower lobe bronchial wall thickening and mucous plugging. There is a focally dilated 6 mm right lower lobe bronchus with surrounding bronchial wall thickening, versus a small cavitary nodule. A six-month follow-up CT scan is recommended.. There is a stable 1 cm left paraspinal nodule. There is a small pericardial effusion. IMPRESSION: 1. No evidence of acute pulmonary embolism 2. Severe pulmonary emphysema 3. No evidence of acute parenchymal consolidation 4. Lower lobe bronchial wall thickening and mucous plugging 5. Focally dilated 6 mm right lower lobe bronchus versus small cavitary nodule. A six-month follow-up CT scan is recommended 6. Stable 1 cm left paraspinal nodule Electronically signed by: Umer Lam M.D. 08/24/2019 6:49 AM PG Care Time/CCT Total # of Minutes Spent Total Time Spent with Patient: Total time spent is greater than 50% in coordina tion of care (as documented) at patient's floor/unit and/or counseling patient: 60
[2019-08-24] MEDS: HYDROCODONE/HOMATROPINE SYRUP 5MG/1.5MG 5ML UDP PO PRN ×2 (12:43→20:40)
[2019-08-24] MEDS: NYSTATIN SUSP 500,000 U/5 ML UDC PO SCH ×2 (17:55→20:31)
--- NOTE | 2019-08-24 18:01 | Hospitalist Progress Note ---
Date of Service August 24, 2019 Assessment & Plan (1) COPD exacerbation: Complicated bronchitis No sepsis Failed outpatient treatment Hemoptysis secondary to above CT of the chest-no pulmonary embolism but showed severe pulmonary emphysema. A small cavitary lesion right lower lobe-recommended recent CT Rule out PE given pleuritic chest pain complaints Has been on steroid and will continue for 5 days in total Continue bronchodilators Appreciate pulmonary input and recommendation Clinically better this morning History of pneumothorax with pleurodesis No pneumothorax as per CT of the chest Chronic systolic heart failure (EF 45% TTE 2017), patient euvolemic to dry CAD status post angioplasty/stent We will continue current medication Hypertension, slight elevated Abdominal pain nausea emesis secondary to acute viral gastroenteritis rule out bowel obstruction CT of the abdomen and pelvis: Possible bladder wall thickening could be due to under distention versus a cystitis. Urine examination has been negative History of cerebellar angioma stable as per outpatient [facility] neurosurgery follow- up 2015 No acute symptoms Hyperglycemia secondary to recent outpatient steroid administration, possible prediabetes, outpatient hemoglobin A1c of 5.29 September 2018 Insulin sliding scale, basal insulin given anticipated hyperglycemia from steroid Rx, Check hemoglobin A1c-5.8 DVT prophylaxis. SCDs RE hemoptysis. Full code Subjective 08/24 The patient was seen and examined in medical floor She has been complaining of a lot of cough but no more shortness of breath at rest Denies any chest pain no palpitation No fever and/or chills Review of Systems Review of Systems: All systems reviewed and are unremarkable except as noted below Respiratory: + cough and + dyspnea on exertion Physical Exam Physical Exam: Lying in bed comfortably Constitutional: well developed and well nourished; no acute distress and not ill appearing Eyes: PERRL, conjunctivae normal, anicteric sclerae ENMT: external ear and nose normal, oropharynx normal Neck: trachea midline, no thyromegaly Respiratory: normal respiratory effort Auscultation: + diminished lung sounds and + crackles (Minimal crackles and wheezing bibasilar) Cardiovascular: Rate/Rhythm: regular rate and regular rhythm Heart Sounds: no murmur Gastrointestinal (Abdomen): Inspection/Auscultation: abdomen normal to inspection and normal bowel sounds Percussion/Palpation: abdomen soft Musculoskeletal: No acute arthritis in any of the joint Neurologic: moves all extremities; no focal motor deficits Results & Data Vital Signs (Past 12 Hours) Vital Signs Temp Pulse Pulse Pulse Resp BP Pulse Ox 08/24/19 16:00 67 08/24/19 15:21 37 C 72 16 96/62 L 92 08/24/19 13:52 69 20 97 08/24/19 07:58 78 16 92 08/24/19 07:45 71 08/24/19 07:43 36.6 C 74 18 96/64 L 95 Laboratory Results Short CBC 08/23/19 08/24/19 Range/Units 19:46 06:53 WBC 14.98 H 10.82 H (4.8-10.8) K/uL Hgb 15.3 14.1 (12.0-16.0) g/dL Hct 43.0 40.8 (37-47) % Plt Count 328 276 (130-400) K/uL BMP 08/23/19 08/24/19 19:46 06:53 Sodium 140 140 Potassium 2.5 L* 3.7 D Chloride 101 106 Carbon Dioxide 33 H 28 BUN 6 L 5 L Creatinine 0.81 0.73 Glucose 114 H 141 H Calcium 8.7 8.7 Cardiac Enzymes 08/23/19 08/24/19 Range/Units 19:46 06:53 Troponin I < 0.015 < 0.015 (0-0.045) ng/ml Liver Function 08/23/19 Range/Units 19:46 Total Bilirubin 0.7 (0.2-1) mg/dl AST 11 L (15-37) U/L ALT 31 (12-78) U/L Alkaline Phosphatase 82 (45-117) U/L Albumin 3.5 (3.4-5.0) gm/dl Urine 08/24/19 Range/Units Unknown Urine Color Yellow Urine Appearance Clear (Clear) Urine pH 7.0 (4.5-7.5) Ur Specific [place] 1.030 (1.000-1.030) Urine Protein Negative (Negative) Urine Glucose (UA) 2+ H (Negative) Medications Administered Current Inpatient Medications Acetaminophen (Tylenol) 650 mg PO Q4H PRN PRN Reason: Pain or Fever Stop: 09/23/19 01:58 Atorvastatin Calcium (Lipitor) 40 mg PO DAILY JUDITH Stop: 09/23/19 08:59 Last Admin: 08/24/19 08:19 Dose: 40 mg Documented by: Benzonatate (Tessalon Perle) 100 mg PO TID PRN PRN Reason: Cough Stop: 09/23/19 01:58 Last Admin: 08/24/19 08:18 Dose: 100 mg Documented by: Dextrose (Dextrose 50%) 25 - 50 ml IV UD PRN; Protocol PRN Reason: Hypoglycemia Protocol Stop: 09/23/19 00:09 Doxycycline Hyclate (Vibramycin) 100 mg PO BID JUDITH Stop: 08/31/19 20:59 Glucagon (Glucagen) 1 mg SQ UD PRN; Protocol PRN Reason: Hypoglycemia Protocol Stop: 09/23/19 00:09 Glucose (Dex4 Glucose) 4 - 8 tabs PO UD PRN; Protocol PRN Reason: Hypoglycemia Protocol Stop: 09/23/19 00:09 Glucose (Glucose 40%) 15 - 30 gm PO UD PRN; Protocol PRN Reason: Hypoglycemia Protocol Stop: 09/23/19 00:09 Hydrocodone Bit/Homatropine Methylb (Hycodan) 5 ml PO Q6H PRN PRN Reason: Cough Stop: 09/07/19 12:25 Last Admin: 08/24/19 12:43 Dose: 5 ml Documented by: Potassium Chloride 40 meq/ (Sodium Chloride) 1,020 mls @ 75 mls/hr IV .[id number] [facility] Stop: 09/23/19 01:59 Last Admin: 08/24/19 15:51 Dose: 75 mls/hr Documented by: Promethazine HCl 12.5 mg/ (Sodium Chloride) 50.5 mls @ 202 mls/hr IV Q6H PRN PRN Reason: Nausea And Vomiting Stop: 09/23/19 01:58 Insulin Aspart (Novolog Flexpen) 0 units SC ACHS [facility] Stop: 09/23/19 02:29 Last Admin: 08/24/19 17:46 Dose: Not Given Documented by: Insulin Glargine (Lantus Solostar Pen) 10 units SQ DAILY [facility] Stop: 09/24/19 08:59 Ioversol (Optiray 320 125ml) 118 ml IV ONCE PRN PRN Reason: Interaction Checking Stop: 08/28/19 00:09 Last Admin: 08/24/19 00:11 Dose: 118 ml Documented by: Ipratropium [place] (Atrovent 0.02% 0.5mg/2.5ml) 0.5 mg INH Q6R [facility] Stop: 09/23/19 06:59 Last Admin: 08/24/19 13:50 Dose: 0.5 mg Documented by: Levalbuterol HCl (Xopenex 1.25mg/0.5ml Neb) 1.25 mg INH Q6R [facility] Stop: 09/23/19 06:59 Last Admin: 08/24/19 13:50 Dose: 1.25 mg Documented by: Levothyroxine Sodium (Synthroid) 75 mcg PO DAILYBB [facility] Stop: 09/23/19 06:29 Last Admin: 08/24/19 06:14 Dose: 75 mcg Documented by: Metoprolol Succinate (Toprol Xl) 25 mg PO QAM [facility] Stop: 09/23/19 00:39 Last Admin: 08/24/19 02:26 Dose: 25 mg Documented by: Miscellaneous (Carbohydrates For Hypoglycemia) 15 - 30 gm PO UD PRN PRN Reason: Hypoglycemia Treatment Stop: 09/23/19 00:09 Miscellaneous (Order Awaiting Action) 1 ea N/A QS [facility] Stop: 09/23/19 07:59 Last Admin: 08/24/19 16:50 Dose: Not Given Documented by: Morphine Sulfate (Morphine Sulfate) 2 mg IV Q4H PRN PRN Reason: Pain Stop: 09/07/19 01:58 Nitroglycerin (Nitrostat) 0.4 mg SL UD PRN PRN Reason: Chest Pain Stop: 09/23/19 01:58 Nystatin (Mycostatin) 5 ml PO QID [facility] Stop: 08/27/19 16:59 Ondansetron HCl (Zofran Odt) 4 mg PO Q6H PRN PRN Reason: Nausea Stop: 09/23/19 10:34 Oxycodone HCl (Roxicodone Immediate Rel) 5 mg PO Q4H PRN PRN Reason: Pain Stop: 09/07/19 01:58 Pantoprazole Sodium (Protonix) 40 mg PO BID [facility] Stop: 09/23/19 08:59 Last Admin: 08/24/19 08:19 Dose: 40 mg Documented by: Prednisone (Prednisone) 40 mg PO DAILY [facility] Stop: 08/28/19 08:59 Last Admin: 08/24/19 08:19 Dose: 40 mg Documented by: Tizanidine HCl (Zanaflex) 4 mg PO BID PRN PRN Reason: Muscle Spasm Stop: 09/23/19 01:58 Trazodone HCl (Desyrel) 100 mg PO [facility] Stop: 09/23/19 03:29 Last Admin: 08/24/19 03:54 Dose: 100 mg Documented by:
[2019-08-24] MEDS: DOXYCYCLINE HYCLATE 100 MG CAP PO SCH (20:33)
[2019-08-25] MEDS: IPRATROPIUM BROMIDE NEB SOLN 0.02% 2.5 ML VIAL INH SCH ×4 (01:07→19:37)
[2019-08-25] MEDS: LEVALBUTEROL 1.25MG/0.5ML NEB INH SCH ×4 (01:07→19:37)
[2019-08-25] MEDS: POTASSIUM CHLORIDE 40 MEQ in SODIUM CHLORIDE 0.9% 1000ML 1,000 ML IV SCH ×2 (05:36→18:25)
[2019-08-25] MEDS: LEVOTHYROXINE SODIUM 75 MCG TABLET PO SCH (05:49)
[2019-08-25 06:51] LABS: Basophils # (auto) 0.01 K/uL (0-0.2); Basophils % (auto) 0.1 %; Eosinophils # (auto) 0.02 K/uL (0-0.5); Eosinophils % (auto) 0.2 %; Hematocrit (blood only) 37.5 % (37-47); Hemoglobin 12.4 g/dL (12.0-16.0); Immature Granulocytes # (auto) 0.05 K/uL (0.00-0.02); Immature Granulocytes % (auto) 0.5 %; Lymphocytes # (auto) 1.98 K/uL (1.2-3.4); Lymphocytes % (auto) 18.1 %; Mean Corpuscular Hemoglobin 32.5 pg (25-34); Mean Corpuscular Hgb Conc 33.1 g/dL (32-36); Mean Corpuscular Volume 98.4 fL (80-100); Mean Platelet Volume 9.4 fL (7.4-10.4); Monocytes # (auto) 0.75 K/uL (0.11-0.59); Monocytes % (auto) 6.9 %; Neutrophils # (auto) 8.12 K/uL (1.4-6.5); Neutrophils % (auto) 74.2 %; Platelet Count 258 K/uL (130-400); RDW Coefficient of Variation 13.8 % (11.5-14.5); RDW Standard Deviation 49.6 fL (36.4-46.3); Red Blood Count 3.81 M/uL (4.2-5.4); White Blood Count 10.93 K/uL (4.8-10.8)
[2019-08-25 07:24] LABS: BUN Creatinine Ratio 7.7 (10-20); Calcium 8.1 mg/dl (8.5-10.1); Creatinine Clr Calc Pharmacy 85.2 ml/min; Est GFR (African American) 111.1; Est GFR (Non-African American) 95.9; Magnesium 1.8 mg/dl (1.8-2.4); Potassium 4.4 mmol/L (3.5-5.1)
[2019-08-25] MEDS: INSULIN ASPART 100 UNITS/ML 3 ML PEN SC SCH ×4 (08:03→21:02)
[2019-08-25] MEDS: DOXYCYCLINE HYCLATE 100 MG CAP PO SCH ×2 (08:05→20:23)
[2019-08-25] MEDS: ATORVASTATIN 40 MG TAB PO SCH (08:05)
[2019-08-25] MEDS: METOPROLOL SUCC 25MG EXT REL TAB PO SCH (08:05)
[2019-08-25] MEDS: predniSONE 20 MG TAB PO SCH (08:05)
[2019-08-25] MEDS: PANTOprazole 40 MG TAB PO SCH ×2 (08:05→20:23)
[2019-08-25] MEDS: INSULIN GLARGINE SOLOSTAR 100 UNITS/ML 3 ML PEN SQ SCH (08:06)
[2019-08-25] MEDS: NYSTATIN SUSP 500,000 U/5 ML UDC PO SCH ×4 (08:06→20:22)
[2019-08-25] MEDS: HYDROCODONE/HOMATROPINE SYRUP 5MG/1.5MG 5ML UDP PO PRN ×3 (08:15→21:24)
[2019-08-25] MEDS ORDERED: INSULIN GLARGINE SOLOSTAR 100 UNITS/ML 3 ML PEN SQ SCH (09:00)
--- NOTE | 2019-08-25 14:14 | Pulmonology Progress Note ---
Date of Service August 25, 2019 Assessment & Plan (1) Acute exacerbation of chronic obstructive pulmonary disease (COPD): Patient follows with [facility] medical group at [facility] and has been seen both in [place] and in [place] Most recently seen in the office as an outpatient received IM injection of methylprednisolone on 08/20/2019 Patient received methylprednisolone on arrival in the emergency department as well and is currently on 40 mg p.o. of prednisone daily Patient also afebrile with no leukocytosis * Complete 5-day course of antibiotics Sputum is yellow with no hemoptysis Cough is improved Swallow eval requested (2) Pneumothorax: History of resolved pneumothorax Prior pneumothoraces included spontaneous pneumothorax on the right and left Patient had blebectomy completed on the left at [facility] Patient with pleurodesis on the right at [facility] Last pneumothorax was several years ago Severe emphysema on CT scan but no evidence of current pneumothorax (3) Hypokalemia: Potassium is repleted Follow serial labs Thank you for including us in the care of this patient. Please refer to Dr. Munoz's addendum for further recommendations. (4) Pulmonary nodule: Patient has left upper lobe pulmonary nodule which has been present since 2012 unchanged. Patient has right lower lobe nodule like density could very well likely be inflamed bronc. We will just repeat CT chest in 6 months. Supervising Physician Co-Signing Physician Notes I saw and evaluated the patient with Binh Vargas, and agree with findings and plan as documented in the note. Patient doing better than yesterday. No wheezing appreciated on auscultation. Patient still states that she gets short of breath. She is saturating 98% on 1 L nasal cannula with heart rate of 88 at rest. Recommend tapering of steroids give 40 mg of prednisone for 3 days followed by 20 mg for 3 days. Patient is to follow with her pulmonary doctor within 1 to 2 weeks of discharge. Patient already has continuous home O2. Continue with Trelegy inhaler on discharge. Patient follows up with pulmonology with [facility]. Will let them decide whether the patient is candidate for Roflumilast as they have her PFTs. No further recommendation from pulmonary perspective. Recall if necessary. Subjective Attending: Dr. Munoz Patient states that she is doing much better today. Cough is now productive of yellow sputum. No hemoptysis. No chest pain or tightness. Denies fever or chills. Feels "worn out". No acute complaints Review of Systems Review of Systems: All systems reviewed & are unremarkable except as noted in HPI & below Physical Exam Constitutional: No acute distress. Pleasant Eyes: PERRL, conjunctivae normal, anicteric sclerae Neck: No appreciation of stridor or carotid bruits Respiratory: normal respiratory effort; no respiratory distress Auscultation: lungs clear to auscultation bilaterally and + diminished lung sounds Cardiovascular: Rate/Rhythm: regular rate and regular rhythm Musculoskeletal: Head/Neck/Chest: + abnormal palpation of chest wall Neurologic: A&OX3. Results & Data Vital Signs (Past 12 Hours) Vital Signs Temp Pulse Pulse Pulse Resp BP Pulse Ox 08/25/19 13:25 72 18 97 08/25/19 11:15 37.1 C 72 18 114/77 94 08/25/19 08:12 77 08/25/19 07:01 80 18 99 08/25/19 06:53 36.7 C 77 18 103/74 96 08/25/19 03:48 36.7 C 86 16 102/69 96 Laboratory Results 08/25/19 06:10 08/25/19 06:10 Diagnostic Findings No new diagnostic imaging since 08/23/19 PG Care Time/CCT Total # of Minutes Spent Total Time Spent with Patient: Total time spent is greater than 50% in coordination of care (as documented) at patient's floor/unit and/or counseling patient: 30
--- NOTE | 2019-08-25 14:25 | Hospitalist Progress Note ---
Date of Service August 25, 2019 Assessment & Plan (1) COPD exacerbation: Complicated bronchitis No sepsis Failed outpatient treatment Hemoptysis secondary to above CT of the chest-no pulmonary embolism but showed severe pulmonary emphysema. A small cavitary lesion right lower lobe-recommended recent CT Rule out PE given pleuritic chest pain complaints Has been on steroid and will continue for 5 days in total Continue bronchodilators Appreciate pulmonary input and recommendation Clinically better this morning He has been ambulating without any difficulty Will discharge home tomorrow History of pneumothorax with pleurodesis No pneumothorax as per CT of the chest Chronic systolic heart failure (EF 45% TTE 2018), patient euvolemic to dry CAD status post angioplasty/stent We will continue current medication No symptoms of fluid overload Hypertension, slight elevated Abdominal pain nausea emesis secondary to acute viral gastroenteritis rule out bowel obstruction CT of the abdomen and pelvis: Possible bladder wall thickening could be due to under distention versus a cystitis. Urine examination has been negative History of cerebellar angioma stable as per outpatient [facility] [place] follow- up 2015 No acute symptoms Hyperglycemia secondary to recent outpatient steroid administration, possible prediabetes, outpatient hemoglobin A1c of 5.29 September 2018 Insulin sliding scale, basal insulin given anticipated hyperglycemia from steroid Rx, Check hemoglobin A1c-5.8 DVT prophylaxis. SCDs RE hemoptysis. Full code Subjective 08/24 The patient was seen and examined in medical floor She has been complaining of a lot of cough but no more shortness of breath at rest Denies any chest pain no palpitation No fever and/or chills 08/25 The patient was seen and examined in the medical floor She has been feeling a lot better Less cough less shortness of breath Has been ambulating without any difficulty Review of Systems Review of Systems: All systems reviewed and are unremarkable except as noted below Respiratory: + cough and + dyspnea on exertion Physical Exam Physical Exam: Lying in bed comfortably Constitutional: well developed and well nourished; no acute distress and not ill appearing Eyes: PERRL, conjunctivae normal, anicteric sclerae ENMT: external ear and nose normal, oropharynx normal Neck: trachea midline, no thyromegaly Respiratory: normal respiratory effort; no respiratory distress Auscultation: + diminished lung sounds (Diminished lung sounds bilaterally secondary to severe emphysema) and + crackles (Minimal crackles and wheezing bibasilar) Cardiovascular: Rate/Rhythm: regular rate and regular rhythm Heart Sounds: no murmur Gastrointestinal (Abdomen): Inspection/Auscultation: abdomen normal to inspection and normal bowel sounds Percussion/Palpation: abdomen soft Neurologic: moves all extremities; no focal motor deficits Lymphatic: no cervical or axillary lymphadenopathy Results & Data Vital Signs (Past 12 Hours) Vital Signs Temp Pulse Pulse Pulse Resp BP Pulse Ox 08/25/19 13:25 72 18 97 08/25/19 11:15 37.1 C 72 18 114/77 94 08/25/19 08:12 77 08/25/19 07:01 80 18 99 08/25/19 06:53 36.7 C 77 18 103/74 96 08/25/19 03:48 36.7 C 86 16 102/69 96 Laboratory Results Short CBC 08/25/19 Range/Units 06:10 WBC 10.93 H (4.8-10.8) K/uL Hgb 12.4 (12.0-16.0) g/dL Hct 37.5 (37-47) % Plt Count 258 (130-400) K/uL BMP 08/25/19 06:10 Sodium 143 Potassium 4.4 D Chloride 111 H Carbon Dioxide 26 BUN 6 L Creatinine 0.71 Glucose 119 H Calcium 8.1 L Medications Administered Current Inpatient Medications Acetaminophen (Tylenol) 650 mg PO Q4H PRN PRN Reason: Pain or Fever Stop: 09/23/19 01:58 Atorvastatin Calcium (Lipitor) 40 mg PO DAILY [facility] Stop: 09/23/19 08:59 Last Admin: 08/25/19 08:05 Dose: 40 mg Documented by: Benzonatate (Tessalon Perle) 100 mg PO TID PRN PRN Reason: Cough Stop: 09/23/19 01:58 Last Admin: 08/24/19 17:42 Dose: 100 mg Documented by: Dextrose (Dextrose 50%) 25 - 50 ml IV UD PRN; Protocol PRN Reason: Hypoglycemia Protocol Stop: 09/23/19 00:09 Doxycycline Hyclate (Vibramycin) 100 mg PO BID [facility] Stop: 08/31/19 20:59 Last Admin: 08/25/19 08:05 Dose: 100 mg Documented by: Glucagon (Glucagen) 1 mg SQ UD PRN; Protocol PRN Reason: Hypoglycemia Protocol Stop: 09/23/19 00:09 Glucose (Dex4 Glucose) 4 - 8 tabs PO UD PRN; Protocol PRN Reason: Hypoglycemia Protocol Stop: 09/23/19 00:09 Glucose (Glucose 40%) 15 - 30 gm PO UD PRN; Protocol PRN Reason: Hypoglycemia Protocol Stop: 09/23/19 00:09 Hydrocodone Bit/Homatropine Methylb (Hycodan) 5 ml PO Q6H PRN PRN Reason: Cough Stop: 09/07/19 12:25 Last Admin: 08/25/19 08:15 Dose: 5 ml Documented by: Potassium Chloride 40 meq/ (Sodium Chloride) 1,020 mls @ 75 mls/hr IV .[id number] [facility] Stop: 09/23/19 01:59 Last Admin: 08/25/19 05:36 Dose: 75 mls/hr Documented by: Promethazine HCl 12.5 mg/ (Sodium Chloride) 50.5 mls @ 202 mls/hr IV Q6H PRN PRN Reason: Nausea And Vomiting Stop: 09/23/19 01:58 Insulin Aspart (Novolog Flexpen) 0 units SC ACHS [facility] Stop: 09/23/19 02:29 Last Admin: 08/25/19 12:18 Dose: Not Given Documented by: Insulin Glargine (Lantus Solostar Pen) 10 units SQ DAILY [facility] Stop: 09/24/19 08:59 Last Admin: 08/25/19 08:06 Dose: 10 units Documented by: Ioversol (Optiray 320 125ml) 118 ml IV ONCE PRN PRN Reason: Interaction Checking Stop: 08/28/19 00:09 Last Admin: 08/24/19 00:11 Dose: 118 ml Documented by: Ipratropium [place] (Atrovent 0.02% 0.5mg/2.5ml) 0.5 mg INH Q6R [facility] Stop: 09/23/19 06:59 Last Admin: 08/25/19 13:19 Dose: 0.5 mg Documented by: Levalbuterol HCl (Xopenex 1.25mg/0.5ml Neb) 1.25 mg INH Q6R [facility] Stop: 09/23/19 06:59 Last Admin: 08/25/19 13:19 Dose: 1.25 mg Documented by: Levothyroxine Sodium (Synthroid) 75 mcg PO DAILYBB [facility] Stop: 09/23/19 06:29 Last Admin: 08/25/19 05:49 Dose: 75 mcg Documented by: Metoprolol Succinate (Toprol Xl) 25 mg PO QAM [facility] Stop: 09/23/19 00:39 Last Admin: 08/25/19 08:05 Dose: 25 mg Documented by: Miscellaneous (Carbohydrates For Hypoglycemia) 15 - 30 gm PO UD PRN PRN Reason: Hypoglycemia Treatment Stop: 09/23/19 00:09 Miscellaneous (Order Awaiting Action) 1 ea N/A QS [facility] Stop: 09/23/19 07:59 Last Admin: 08/25/19 08:02 Dose: Not Given Documented by: Morphine Sulfate (Morphine Sulfate) 2 mg IV Q4H PRN PRN Reason: Pain Stop: 09/07/19 01:58 Nitroglycerin (Nitrostat) 0.4 mg SL UD PRN PRN Reason: Chest Pain Stop: 09/23/19 01:58 Nystatin (Mycostatin) 5 ml PO QID [facility] Stop: 08/27/19 16:59 Last Admin: 08/25/19 14:00 Dose: 5 ml Documented by: Ondansetron HCl (Zofran Odt) 4 mg PO Q6H PRN PRN Reason: Nausea Stop: 09/23/19 10:34 Oxycodone HCl (Roxicodone Immediate Rel) 5 mg PO Q4H PRN PRN Reason: Pain Stop: 09/07/19 01:58 Pantoprazole Sodium (Protonix) 40 mg PO BID [facility] Stop: 09/23/19 08:59 Last Admin: 08/25/19 08:05 Dose: 40 mg Documented by: Prednisone (Prednisone) 40 mg PO DAILY [facility] Stop: 08/28/19 08:59 Last Admin: 08/25/19 08:05 Dose: 40 mg Documented by: Tizanidine HCl (Zanaflex) 4 mg PO BID PRN PRN Reason: Muscle Spasm Stop: 09/23/19 01:58 Trazodone HCl (Desyrel) 100 mg PO HS [facility] Stop: 09/23/19 03:29 Last Admin: 08/24/19 20:32 Dose: 100 mg Documented by:
[2019-08-25] MEDS: TRAZODONE HCL 100 MG TAB PO SCH (20:23)
[2019-08-26] MEDS: IPRATROPIUM BROMIDE NEB SOLN 0.02% 2.5 ML VIAL INH SCH ×3 (01:19→13:06)
[2019-08-26] MEDS: LEVALBUTEROL 1.25MG/0.5ML NEB INH SCH ×3 (01:19→13:06)
[2019-08-26] MEDS: POTASSIUM CHLORIDE 40 MEQ in SODIUM CHLORIDE 0.9% 1000ML 1,000 ML IV SCH (05:58)
[2019-08-26] MEDS: LEVOTHYROXINE SODIUM 75 MCG TABLET PO SCH (05:59)
[2019-08-26] MEDS: HYDROCODONE/HOMATROPINE SYRUP 5MG/1.5MG 5ML UDP PO PRN ×2 (06:04→12:49)
[2019-08-26] MEDS: INSULIN ASPART 100 UNITS/ML 3 ML PEN SC SCH ×2 (08:12→12:06)
[2019-08-26] MEDS: INSULIN GLARGINE SOLOSTAR 100 UNITS/ML 3 ML PEN SQ SCH (08:12)
[2019-08-26] MEDS: NYSTATIN SUSP 500,000 U/5 ML UDC PO SCH ×2 (08:13→12:07)
[2019-08-26] MEDS: ATORVASTATIN 40 MG TAB PO SCH (08:13)
[2019-08-26] MEDS: PANTOprazole 40 MG TAB PO SCH (08:14)
[2019-08-26] MEDS: DOXYCYCLINE HYCLATE 100 MG CAP PO SCH (08:14)
[2019-08-26] MEDS: predniSONE 20 MG TAB PO SCH (08:14)
[2019-08-26] MEDS: METOPROLOL SUCC 25MG EXT REL TAB PO SCH (08:21)
--- NOTE | 2019-08-26 09:23 | Pulmonology Progress Note ---
Date of Service August 26, 2019 Assessment & Plan (1) Acute exacerbation of chronic obstructive pulmonary disease (COPD): Patient follows with [facility] medical group at [facility] and has been seen both in [place] and in [place] Most recently seen in the office as an outpatient received IM injection of methylprednisolone on 08/20/2019 Patient received methylprednisolone on arrival in the emergency department as well and is currently on 40 mg p.o. of prednisone daily Patient also afebrile with no leukocytosis * Complete total 5-day course of antibiotics * Taper steroids over the next 5 days 40mg for 3 days followed by 20mg for 2 days. No further pulmonary recommendation. Will sign off. Recall if necessary. (2) Pneumothorax: History of resolved pneumothorax Prior pneumothoraces included spontaneous pneumothorax on the right and left Patient had blebectomy completed on the left at [facility] Patient with pleurodesis on the right at [facility] Last pneumothorax was several years ago Severe emphysema on CT scan but no evidence of current pneumothorax (3) Pulmonary nodule: Patient has left upper lobe pulmonary nodule which has been present since 2011 unchanged. Patient has right lower lobe nodule like density could very well likely be inflamed bronc. We will just repeat CT chest in 6 months. Subjective Patient seen and examined at bedside. No acute distress, no adverse events overnight. Patient was sleeping calmly. On waking up patient states she feels much better. Shortness of breath is improved, cough is decreased in intensity. No headache, no nausea, no vomiting, no chest pain. Patient saturating 98% on 1.5 L nasal cannula with heart rate of 76 at rest. Review of Systems Review of Systems: All systems reviewed & are unremarkable except as noted in HPI & below Physical Exam Physical Exam: Constitutional: No acute distress. Eyes: PERRL, conjunctivae normal, anicteric sclerae Neck: No appreciation of stridor or carotid bruits Respiratory: normal respiratory effort; no respiratory distress Auscultation: lungs clear to auscultation bilaterally and + diminished lung sounds, no wheeze or crackles Cardiovascular: Rate/Rhythm: regular rate and regular rhythm Musculoskeletal: Head/Neck/Chest Neurologic: A&OX3. Skin: no rashes, warm and dry Lymphatic: no cervical or axillary lymphadenopathy Results & Data Vital Signs (Past 12 Hours) Vital Signs Temp Pulse Pulse Resp BP Pulse Ox 08/26/19 08:22 83 08/26/19 07:07 36.5 C 57 L 18 121/77 99 08/26/19 07:00 64 16 99 08/26/19 03:36 36.8 C 73 18 121/77 98 08/26/19 01:19 81 16 98 08/25/19 23:11 36.8 C 63 18 124/81 98 Laboratory Results 08/25/19 06:10 08/25/19 06:10 PG Care Time/CCT Total # of Minutes Spent Total Time Spent with Patient: Total time spent is greater than 50% in coordination of care (as documented) at patient's floor/unit and/or counseling patient:
[2019-08-26] MEDS ORDERED: LINACLOTIDE 72 MCG CAPSULE PO PRN (09:32)
--- NOTE | 2019-08-26 11:29 | Hospitalist Progress Note ---
Date of Service August 26, 2019 Assessment & Plan (1) COPD exacerbation: Complicated bronchitis No sepsis Failed outpatient treatment Hemoptysis secondary to above CT of the chest-no pulmonary embolism but showed severe pulmonary emphysema. A small cavitary lesion right lower lobe-recommended recent CT Rule out PE given pleuritic chest pain complaints Has been on steroid and will continue for 5 days in total-will liz steroid slowly Continue bronchodilators Appreciate pulmonary input and recommendation Clinically better this morning He has been ambulating without any difficulty Will discharge home tomorrow History of pneumothorax with pleurodesis No pneumothorax as per CT of the chest Chronic systolic heart failure (EF 45% TTE 2018), patient euvolemic to dry CAD status post angioplasty/stent We will continue current medication No symptoms of fluid overload Hypertension, slight elevated Abdominal pain nausea emesis secondary to acute viral gastroenteritis rule out bowel obstruction CT of the abdomen and pelvis: Possible bladder wall thickening could be due to under distention versus a cystitis. Urine examination has been negative History of cerebellar angioma stable as per outpatient [facility] [place] neurosurgery follow- up 2015 No acute symptoms Hyperglycemia secondary to recent outpatient steroid administration, possible prediabetes, outpatient hemoglobin A1c of 5.29 September 2018 Insulin sliding scale, basal insulin given anticipated hyperglycemia from steroid Rx, Check hemoglobin A1c-5.8 DVT prophylaxis. SCDs RE hemoptysis. Full code Discharge home this afternoon Subjective 10/2 The patient was seen and examined in medical floor She has been complaining of a lot of cough but no more shortness of breath at rest Denies any chest pain no palpitation No fever and/or chills 103 The patient was seen and examined in the medical floor She has been feeling a lot better Less cough less shortness of breath Has been ambulating without any difficulty 08/26 The patient was seen and examined in the medical floor He has been feeling a lot Denies any cough no shortness of breath at rest Has been ambulating Sent home today Review of Systems Review of Systems: All systems reviewed and unremarkable except as noted below Respiratory: + dyspnea on exertion; no cough and no dyspnea Physical Exam Physical Exam: Lying in bed comfortably Constitutional: well developed and well nourished; no acute distress and not ill appearing Eyes: PERRL, conjunctivae normal, anicteric sclerae ENMT: external ear and nose normal, oropharynx normal Neck: trachea midline, no thyromegaly Respiratory: normal respiratory effort; no respiratory distress Auscultation: + diminished lung sounds (Diminished lung sounds bilaterally secondary to severe emphysema) and + crackles (Minimal crackles and wheezing bibasilar) Cardiovascular: Rate/Rhythm: regular rate and regular rhythm Heart Sounds: no murmur Gastrointestinal (Abdomen): Inspection/Auscultation: abdomen normal to inspection and normal bowel sounds Percussion/Palpation: abdomen soft Musculoskeletal: No acute joint Neurologic: moves all extremities; no focal motor deficits Lymphatic: no cervical or axillary lymphadenopathy Results & Data Vital Signs (Past 12 Hours) Vital Signs Temp Pulse Pulse Pulse Resp BP BP 08/26/19 11:07 36.8 C 82 18 106/76 08/26/19 08:22 83 08/26/19 08:15 66 08/26/19 07:07 36.5 C 57 L 18 121/77 08/26/19 07:00 64 16 08/26/19 03:36 36.8 C 73 18 121/77 08/26/19 01:19 81 16 Pulse Ox 08/26/19 11:07 96 08/26/19 08:22 08/26/19 08:15 08/26/19 07:07 99 08/26/19 07:00 99 08/26/19 03:36 98 08/26/19 01:19 98 Medications Administered Current Inpatient Medications Acetaminophen (Tylenol) 650 mg PO Q4H PRN PRN Reason: Pain or Fever Stop: 09/23/19 01:58 Atorvastatin Calcium (Lipitor) 40 mg PO DAILY [facility] BEDS AT [facility] Stop: 09/23/19 08:59 Last Admin: 08/26/19 08:13 Dose: 40 mg Documented by: Benzonatate (Tessalon Perle) 100 mg PO TID PRN PRN Reason: Cough Stop: 09/23/19 01:58 Last Admin: 08/24/19 17:42 Dose: 100 mg Documented by: Dextrose (Dextrose 50%) 25 - 50 ml IV UD PRN; Protocol PRN Reason: Hypoglycemia Protocol Stop: 09/23/19 00:09 Doxycycline Hyclate (Vibramycin) 100 mg PO BID [facility]S [facility]CLUDE 234 BEDS AT [facility] Stop: 08/31/19 20:59 Last Admin: 08/26/19 08:14 Dose: 100 mg Documented by: Glucagon (Glucagen) 1 mg SQ UD PRN; Protocol PRN Reason: Hypoglycemia Protocol Stop: 09/23/19 00:09 Glucose (Dex4 Glucose) 4 - 8 tabs PO UD PRN; Protocol PRN Reason: Hypoglycemia Protocol Stop: 09/23/19 00:09 Glucose (Glucose 40%) 15 - 30 gm PO UD PRN; Protocol PRN Reason: Hypoglycemia Protocol Stop: 09/23/19 00:09 Hydrocodone Bit/Homatropine Methylb (Hycodan) 5 ml PO Q6H PRN PRN Reason: Cough Stop: 09/07/19 12:25 Last Admin: 08/26/19 06:04 Dose: 5 ml Documented by: Potassium Chloride 40 meq/ (Sodium Chloride) 1,020 mls @ 75 mls/hr IV .[id number] COUNTS INCLUDE 234 BEDS AT [facility] Stop: 09/23/19 01:59 Last Admin: 08/26/19 05:58 Dose: 75 mls/hr Documented by: Promethazine HCl 12.5 mg/ (Sodium Chloride) 50.5 mls @ 202 mls/hr IV Q6H PRN PRN Reason: Nausea And Vomiting Stop: 09/23/19 01:58 Insulin Aspart (Novolog Flexpen) 0 units SC ACHS [facility]S [facility]CLUDE 234 BEDS AT [facility] Stop: 09/23/19 02:29 Last Admin: 08/26/19 08:12 Dose: Not Given Documented by: Insulin Glargine (Lantus Solostar Pen) 10 units SQ DAILY [facility] Stop: 09/24/19 08:59 Last Admin: 08/26/19 08:12 Dose: 10 units Documented by: Ioversol (Optiray 320 125ml) 118 ml IV ONCE PRN PRN Reason: Interaction Checking Stop: 08/28/19 00:09 Last Admin: 08/24/19 00:11 Dose: 118 ml Documented by: Ipratropium [place] (Atrovent 0.02% 0.5mg/2.5ml) 0.5 mg INH Q6R [facility] Stop: 09/23/19 06:59 Last Admin: 08/26/19 07:00 Dose: 0.5 mg Documented by: Levalbuterol HCl (Xopenex 1.25mg/0.5ml Neb) 1.25 mg INH Q6R [facility] Stop: 09/23/19 06:59 Last Admin: 08/26/19 07:00 Dose: 1.25 mg Documented by: Levothyroxine Sodium (Synthroid) 75 mcg PO DAILYBB COUNTS INCLUDE 234 BEDS AT [facility] Stop: 09/23/19 06:29 Last Admin: 08/26/19 05:59 Dose: 75 mcg Documented by: Linaclotide (Linzess) 288 mcg PO DAILY PRN PRN Reason: gi spasm Stop: 09/25/19 09:31 Metoprolol Succinate (Toprol Xl) 25 mg PO QAM [facility]S INCLUDE 234 BEDS AT [facility] Stop: 09/23/19 00:39 Last Admin: 08/26/19 08:21 Dose: 25 mg Documented by: Miscellaneous (Carbohydrates For Hypoglycemia) 15 - 30 gm PO UD PRN PRN Reason: Hypoglycemia Treatment Stop: 09/23/19 00:09 Morphine Sulfate (Morphine Sulfate) 2 mg IV Q4H PRN PRN Reason: Pain Stop: 09/07/19 01:58 Nitroglycerin (Nitrostat) 0.4 mg SL UD PRN PRN Reason: Chest Pain Stop: 09/23/19 01:58 Nystatin (Mycostatin) 5 ml PO QID [facility]CLUDE 234 BEDS AT [facility] Stop: 08/27/19 16:59 Last Admin: 08/26/19 08:13 Dose: 5 ml Documented by: Ondansetron HCl (Zofran Odt) 4 mg PO Q6H PRN PRN Reason: Nausea Stop: 09/23/19 10:34 Oxycodone HCl (Roxicodone Immediate Rel) 5 mg PO Q4H PRN PRN Reason: Pain Stop: 09/07/19 01:58 Pantoprazole Sodium (Protonix) 40 mg PO BID [facility]S [facility]CLUDE 234 BEDS AT [facility] Stop: 09/23/19 08:59 Last Admin: 08/26/19 08:14 Dose: 40 mg Documented by: Prednisone (Prednisone) 40 mg PO DAILY [facility]CLUDE 234 BEDS AT [facility] Stop: 08/28/19 08:59 Last Admin: 08/26/19 08:14 Dose: 40 mg Documented by: Tizanidine HCl (Zanaflex) 4 mg PO BID PRN PRN Reason: Muscle Spasm Stop: 09/23/19 01:58 Trazodone HCl (Desyrel) 100 mg PO HS [facility]S [facility]CLUDE 234 BEDS AT [facility] Stop: 09/23/19 03:29 Last Admin: 08/25/19 20:23 Dose: 100 mg Documented by:
--- NOTE | 2019-08-26 17:34 | Discharge Summary ---
Date of Service August 26, 2019 Admission HPI Per Admitting Provider History obtained from patient and records. Medical history significant for chronic systolic heart failure (EF 45% TTE 2018), CAD status post angioplasty/stent, COPD, history recurrent spontaneous pneumothorax status post thoracotomy, past tobacco abuse, hypertension, gastroparesis, neurofibromatosis, cerebellar angioma as per records, IBS constipation predominant Recent confinement November 2014 for COPD exacerbation. One week history of worsening junky cough symptoms occasionally blood streaked followed by emesis, pleuritic chest pain with palpitations and worsening shortness of breath. Generalized achy abdominal discomfort without diarrhea/dysuria symptoms. Unsure if she had sick contacts as she had visited a new grandchild in the hospital. Patient seen at director of medical staff services office last week. Respiratory PCR positive for rhinovirus/enterovirus. IV steroids administered. No improvement in symptoms. At the ER, patient received Solu-Medrol and neb treatment for COPD exacerbation. Medical History as above Surgical History : Current section, cervical conization, diagnostic laparoscopy, BTL, tonsillectomy, ganglion cyst removal, hernia repair, lung thoracotomy Family History : Rheumatoid arthritis, lymphoma, diabetes, heart disease, stroke Personal/Social history : Past tobacco abuse, occasional EtOH intake, disabled Admission Exam Per Admitting Provider Physical Exam: GENERAL: Slightly uncomfortable, slightly anxious, no respiratory distress SKIN: Normal color, warm HEENT: [place] palpebral conjunctivae, no ptosis, dry buccal mucosa NECK : Supple, no tenderness CHEST : Decreased breath sounds, expiratory wheezes , no tenderness HEART : Tachycardic, systolic murmur ABDOMEN: Some distention, nontender EXTREMITIES : No LE swelling/tenderness, no other conspicuous deformities noted NEUROLOGIC : Coherent, no facial asymmetry, no other gross focality Principal Diagnosis COPD exacerbation, complicated bronchitis, hypertension, chronic systolic heart failure Discharge Exam Constitutional well developed and well nourished; no acute distress and not ill appearing Eyes PERRL, conjunctivae normal, anicteric sclerae ENMT external ear and nose normal, oropharynx normal Neck trachea midline, no thyromegaly Respiratory normal respiratory effort; no respiratory distress Auscultation: + diminished lung sounds (Diminished lung sounds bilaterally secondary to severe emphysema) and + crackles (Minimal crackles and wheezing bibasilar) Cardiovascular Rate/Rhythm: regular rate and regular rhythm Heart Sounds: no murmur Gastrointestinal (Abdomen) Inspection/Auscultation: abdomen normal to inspection and normal bowel sounds Percussion/Palpation: abdomen soft Neurologic moves all extremities; no focal motor deficits Lymphatic no cervical or axillary lymphadenopathy Discharge Data Allergies Allergy/AdvReac Type Severity Reaction Status Date / Time adhesive Allergy Unknown BANDAIDS Verified 08/23/19 20:35 SKIN ABRASION milk Allergy Unknown PATIENT Verified 08/23/19 20:35 REPORTS HIVES TO COOL WHIP Sulfa (Sulfonamide Allergy Unknown HIVES Verified 08/23/19 20:35 Antibiotics) tramadol Allergy Unknown . Verified 08/23/19 20:35 meperidine AdvReac Unknown MOOD SWINGS Verified 08/23/19 20:35 Consultations 08/23/19 22:03 ED Decision to Admit Stat 08/24/19 01:59 Consult Pulmonology Routine Ordered Studies 08/23/19 22:20 CT abd pelvis IV con only Urgent CT angio chest PE protocol Urgent Hospital Course (1) COPD exacerbation: Complicated bronchitis No sepsis Failed outpatient treatment Hemoptysis secondary to above CT of the chest-no pulmonary embolism but showed severe pulmonary emphysema. A small cavitary lesion right lower lobe-recommended recent CT Rule out PE given pleuritic chest pain complaints Has been on steroid and will continue for 5 days in total-will liz steroid slowly Continue bronchodilators Appreciate pulmonary input and recommendation Clinically better this morning He has been ambulating without any difficulty Will discharge home tomorrow History of pneumothorax with pleurodesis No pneumothorax as per CT of the chest Chronic systolic heart failure (EF 45% TTE 2018), patient euvolemic to dry CAD status post angioplasty/stent We will continue current medication No symptoms of fluid overload Hypertension, slight elevated Abdominal pain nausea emesis secondary to acute viral gastroenteritis rule out bowel obstruction CT of the abdomen and pelvis: Possible bladder wall thickening could be due to under distention versus a cystitis. Urine examination has been negative History of cerebellar angioma stable as per outpatient [facility] [place] follow- up 2015 No acute symptoms Hyperglycemia secondary to recent outpatient steroid administration, possible prediabetes, outpatient hemoglobin A1c of 5.29 September 2018 Insulin sliding scale, basal insulin given anticipated hyperglycemia from steroid Rx, Check hemoglobin A1c-5.8 DVT prophylaxis. SCDs RE hemoptysis. Full code Discharge home this afternoon Total Time Total Time Spent Total Time Spent (In Minutes): 35 minutes Total Time Includes: Examination of the Patient, Discharge Planning, Medication Reconciliation and Communication With Other Providers Discharge Plan Discharge Items Patient Disposition: Home - Self-Care Reason For Visit: COPD EXACERBATION Discharge Diagnosis: COPD exacerbation, complicated bronchitis, hypertension, chronic systolic heart failure Condition on Discharge: Good Activity: Resume your previous activity Non-emergency contact: Primary Care Provider Call non-emergency contact if: you have any medication questions and your symptoms worsen Follow-up/Referrals: Chery Khan MD [Primary Care Provider] - (Please keep your appointments with your PCP and director of medical staff services.) Diet: Carb Consistent or DM2 and Heart Healthy Addtl Attending Provider Instructions: Take precaution to avoid falls Avoid any precipitants to avoid an attack as advised Continue oxygen as before Pending Studies at Discharge: No Stand-Alone Forms: My [facility] SiTime Medications and DC Order Prescriptions: New nystatin 100,000 unit/mL Suspension 5 ml PO QID 5 Days Qty: 100 RF: 0 doxycycline hyclate 100 mg Capsule 100 mg PO BID 5 Days Qty: 10 RF: 0 prednisone 10 mg tablet 10 mg PO UD Qty: 18 RF: 0 Continued albuterol sulfate [Ventolin HFA] 90 mcg/actuation Hfa Aerosol Inhaler 2 puff INHALATION Q4H PRN (Reason: Shortness Of Breath) Qty: 0 RF: 0 metoprolol tartrate 25 mg Tablet 25 mg PO QAM Qty: 0 RF: 0 acetaminophen 325 mg Tablet 650 mg PO Q8H PRN (Reason: Pain) Qty: 0 RF: 0 Prilosec OTC 20 mg Tablet,Delayed Release (Dr/Ec) 20 mg PO BID Qty: 0 RF: 0 atorvastatin [Lipitor] 40 mg Tablet 40 mg PO DAILY Qty: 0 RF: 0 ipratropium-albuterol 0.5 mg-3 mg(2.5 mg base)/3 mL Solution For Nebulization 3 ml INHALATION TID PRN (Reason: copd) Qty: 0 RF: 0 tizanidine 4 mg Tablet 4 mg PO BID PRN (Reason: Muscle Spasm) Qty: 0 RF: 0 levothyroxine [Synthroid] 75 mcg Tablet 75 mcg PO QAM Qty: 0 RF: 0 Linzess 290 mcg Capsule 290 mcg PO DAILY PRN (Reason: Gastrointestinal Spasms Or Cramping) Qty: 0 RF: 0 aspirin 81 mg Tablet,Delayed Release (Dr/Ec) 81 mg PO QAM Qty: 0 RF: 0 ondansetron HCl [Zofran] 4 mg Tablet 4 mg PO QAM PRN (Reason: Nausea) RF: 0 Trelegy Ellipta 100-62.5-25 mcg Blister With Device 1 inh INHALATION QAM RF: 0 Discharge Orders: Discharge Order (Routine); Ordered 08/26/19 Ordered By: Prince Ugalde Admission Data Admit Date/Time: 08/23/19 23:46 Attending Provider: Prince Ugalde Admit Provider: Lopez Eubanks Primary Care Provider: Chery Khan Other Providers: Lopez Eubanks ; Lopez Claudio Other Interventions: Discharge Summary Assessment (RN) Last Done: 08/26/19 13:41 DC Date/Time DO NOT enter until pt leaves facility: 08/26/19 14:21
== END 2019-08-26 14:21 | disposition home or self-care (01) | DRG 191 ==
LOC: ED 18:13 → 2W 08-24 00:30

== ENCOUNTER 2021-03-10 12:35 | Inpatient (IN) ==
[2021-03-10] MEDS ORDERED: ONDANSETRON INJ 2 MG/ML 2 ML VIAL IV STA (13:13)
[2021-03-10] MEDS ORDERED: SODIUM CHLORIDE 0.9% 1000ML 1,000 ML IV SCH (13:15)
--- NOTE | 2021-03-10 13:27 | Emergency Department Note ---
Impression & Plan Acute renal failure due to rhabdomyolysis, Hypokalemia, Weakness ED Provider Note NAME: ANISHA KINGSLEY AGE: 55 SEX: F : 1965 ARRIVES VIA: Walk-In INFORMANT: Patient, ED PROVIDER(S): Berlin Orona DO CHIEF COMPLAINT: Weakness HPI: The patient is a 55-year-old female who presented to the emergency department with multiple complaints. The patient states she has been getting weak. She describes the weakness as bilateral in both lower extremities. She states the weakness has been worsening over the course of the last 2 weeks. She denies having any vomiting but has had some nausea. She denies having any headache or recent falls. The patient also states she is getting short of breath with any exertion as well. She denies having any black or bloody bowel movements. The patient has not been seen by her primary care physician for the symptoms. The patient states symptoms are worsened with any exertion and re lieved partially with rest. The patient states that she has had similar symptoms in the past when her potassium is very low and she is dehydrated. The patient tried increasing her fluid intake without resolution of her symptoms. She was walking through her home today and noticed that her symptoms were significantly worse so she presented to the emergency department for further evaluation. ROS: See above HPI for pertinent positives & negatives. A total of 10 systems reviewed and were otherwise negative. PAST MEDICAL HISTORY: See Below PAST SURGICAL HISTORY: See Below FAMILY HISTORY: See Below SOCIAL HISTORY: See Below HOME MEDICATIONS: See Below ALLERGIES: See Below VITALS: See Below PHYSICAL EXAMINATION: GENERAL: Patient is awake alert in no acute distress patient is resting comfortably and showing no signs of anxiety EYES: The conjunctivae are clear. The pupils are round and reactive. EARS, NOSE, MOUTH AND THROAT: The nose is without any evidence of any deformity. Mucous membranes are moist. Tongue is midline. NECK: The neck is nontender and supple. RESPIRATORY: Normal respiratory effort is noted there is no evidence of wheezing rhonchi or rales CARDIOVASCULAR: Regular rate and rhythm noted there no murmurs rubs or gallops normal S1 normal S2. GASTROINTESTINAL: The abdomen is soft. Abdomen is nontender. MUSCULOSKELETAL/EXTREMITIES: There is no evidence of gross deformity full range of motion is noted in the hips and shoulders. SKIN: Skin is cool and dry. Skin is pale. There is no significant pedal edema. NEUROLOGIC: Patient is awake alert and oriented x3 strength is symmetric patellar reflexes are 2+ bilaterally MEDICAL DECISION MAKING: The patient is a 55-year-old female who presented to the emergency department with bilateral lower extremity weakness. The patient had no focal neurologic deficit but did have significant muscle pain. The patient was found to be in rhabdomyolysis with renal failure. Her potassium was also very low and I feel this is likely the reason for the muscle weakness. The patient was treated with IV fluids as well as oral potassium replacement. She was reevaluated multiple times. I discussed the patient's laboratory and radiographic studies with her. I also discussed her case with the on-call [facility]. They have agreed to evaluate the patient in the emergency department for further management and disposition. Triage Nursing notes reviewed. Prior medical records reviewed Vital Signs: reviewed and remarkable for no significant abnormalities Differential diagnosis: Infection, dehydration, metabolic abnormality, hypo/hyperglycemia, electrolyte disturbance, anemia, hypoxia, cardiac sources, intracerebral event, toxicologic, neurologic, as well as other pathologies. ER treatment provided: See below Diagnostics interpreted by me: ECG: EKG was obtained in the emergency department. My interpretation is sinus rhythm at 76 bpm. Frequent PVCs were noted. There was no acute ST segment abnormalities noted. This was compared to a tracing from November 222018. The ectopy is new otherwise no significant change compared to previous tracing. Cardiac Monitoring: An order was placed for continuous cardiac monitoring. The monitor shows a rate of 85 bpm with sinus rhythm. Laboratory studies: As stated above and show below. Imaging studies: See below Consultation(s): 1500: I discussed this case with Danae who is on-call for the [facility] group. They will evaluate the patient in the emergency department. Past Med/Surg History Medical History (Updated 03/10/21 @ 16:09 by Cecy Ribera PA-C) Acute exacerbation of chronic obstructive pulmonary disease (COPD) SEVERE EMPHYSEMA Gastroparesis Hx of bronchitis Hypokalemia CAN NOT TOLERATE PO POTASSIUM PILLS DUE TO GASTROPARESIS Myocardial infarction 2010 - CHEST PAIN -[facility] ER AND HAD HEART CATH WITH ONE STENT (BARE METAL) FOLLOW WITH [facility] C[facility] Pneumothorax AGE 24 - SURGERY TO REPAIR THE LEFT SIDE AND CHEMICAL TREATMENT ON THE RIGHT SIDE AT [facility] Seizure 2013 ONLY HAD ONE -- ADMITTED TO [facility] --- METABOLIC RELATED ---- NO MEDICATION Surgical History History of hernia repair UMBILICAL Hx of cardiac cath 2011 HEART CATH WITH ONE STENT Hx of section X2 Hx of colonoscopy Hx of vaginal surgery 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 Family History Father Lung disease Severe emphysema Social History Smoking Status: Current every day smoker Age Started Using Tobacco: 11; Age Quit Using Tobacco: 53; packs per day: 1; Years Smoked: 42; Number of Years Since Quit: 1; Second Hand Exposure: No; Hx Alcohol Use: Yes Hx Substance Use: No Preferred Language: Korean Communication Ability: Effective Forensic Specialist Required: No Beliefs That Will Affect Care: None Current Living Situation: Spouse Feels Safe at Home: Yes Assistive Devices: Denture - Upper and Denture - Lower Allergies Allergies Allergy/AdvReac Type Severity Reaction Status Date / Time adhesive Allergy Unknown BANDAIDS Verified 03/10/21 15:01 SKIN ABRASION milk Allergy Unknown PATIENT Verified 03/10/21 15:01 REPORTS HIVES TO COOL WHIP Sulfa (Sulfonamide Allergy Unknown HIVES Verified 03/10/21 15:01 Antibiotics) tramadol Allergy Unknown . Verified 03/10/21 15:01 meperidine AdvReac Unknown MOOD SWINGS Verified 03/10/21 15:01 Home Meds Home Medications Medication Instructions Recorded Confirmed albuterol sulfate [Ventolin HFA] 2 puff INHALATION Q4H PRN #0 12/25/08 03/10/21 omeprazole magnesium [Prilosec OTC] 20 mg PO BID #0 cap 09/17/14 03/10/21 aspirin 81 mg PO QAM #0 12/12/14 03/10/21 ipratropium-albuterol 3 ml INHALATION QID PRN #0 inh 12/12/14 03/10/21 levothyroxine [Synthroid] 75 mcg PO QAM #0 12/12/14 03/10/21 tizanidine 4 mg PO BID PRN #0 12/12/14 03/10/21 Trelegy Ellipta 1 inh INHALATION QAM 08/23/19 03/10/21 ondansetron HCl [Zofran] 4 mg PO QAM PRN 08/23/19 03/10/21 trazodone 25 mg PO HS 11/17/19 03/10/21 trazodone 100 mg PO HS 11/17/19 03/10/21 acetaminophen [Tylenol Extra 500 mg PO Q6H PRN 11/22/19 03/10/21 Strength] ibuprofen 600 mg PO Q6H PRN 11/22/19 03/10/21 prednisone 10 mg PO UD PRN 11/22/19 03/10/21 metoprolol succinate 37.5 mg PO UD 03/10/21 03/10/21 pregabalin 75 mg PO BID 03/10/21 03/10/21 rosuvastatin 40 mg PO DAILY 03/10/21 03/10/21 Results & Data (ED) Vital Signs Vital Signs - 24 hr 03/10/21 12:51 Temperature 36.9 C Temperature Source Temporal Artery Scan Pulse Rate 51 L Respiratory Rate 18 Respiratory Effort / Characteristics Non-Labored Respiratory Depth Normal Blood Pressure 148/46 H Blood Pressure Mean 80 Pulse Oximetry 98 Oxygen Delivery Method Room Air Sepsis Recent Fever Within 48 Hours No Sepsis New/Unexplained Change in Mental Status No Sepsis Action Taken by Nursing No Action Required Home Medications Current Medication List: was personally reviewed by me Laboratory Data Attestation: I reviewed the patient's lab results. Result diagrams: 03/10/21 13:37 03/10/21 13:37 Lab Results 03/10/21 03/10/21 03/10/21 Range/Units 13:37 13:37 13:37 WBC 8.63 (4.8-10.8) K/uL RBC 4.45 (4.2-5.4) M/uL Hgb 14.3 (12.0-16.0) g/dL Hct 39.0 (37-47) % MCV 87.6 (80-100) fL MCH 32.1 (25-34) pg MCHC 36.7 H (32-36) g/dL RDW Std Deviation 43.0 (36.4-46.3) fL RDW Coeff of Akiko 13.3 (11.5-14.5) % Plt Count 194 (130-400) K/uL MPV 10.6 H (7.4-10.4) fL Immature Gran % (Auto) 0.0 % Neut % (Auto) 71.9 % Lymph % (Auto) 18.4 % [place] % (Auto) 9.3 % Eos % (Auto) 0.3 % Baso % (Auto) 0.1 % Neut # (Auto) 6.20 (1.4-6.5) K/uL Lymph # (Auto) 1.59 (1.2-3.4) K/uL [place] # (Auto) 0.80 H (0.11-0.59) K/uL Eos # (Auto) 0.03 (0-0.5) K/uL Baso # (Auto) 0.01 (0-0.2) K/uL Immature Gran # (Auto) 0.00 (0.00-0.02) K/uL PT 10.4 (9.0-12.0) Seconds INR 1.0 (0.9-1.1) APTT 28.7 (21.0-31.0) Seconds PTT Ratio 1.1 Sodium 136 (136-145) mmol/L Potassium 2.7 L (3.5-5.1) mmol/L Chloride 99 (98-107) mmol/L Carbon Dioxide 24 (21-32) mmol/L Anion Gap 13.0 H (3-11) BUN 56 H (7-18) mg/dl Creatinine 6.06 H* (0.6-1.2) mg/dl Est Cr Clr Drug Dosing Not Reportable Est GFR ( Amer) 8.3 Est GFR (Non-Af Amer) 7.1 BUN/Creatinine Ratio 9.3 L (10-20) Glucose 129 H (70-99) mg/dl Calcium 8.6 (8.5-10.1) mg/dl Magnesium 2.6 H (1.8-2.4) mg/dl Total Bilirubin 0.3 (0.2-1) mg/dl AST 518 H (15-37) U/L ALT 318 H (12-78) U/L Alkaline Phosphatase 94 (45-117) U/L Total Creatine Kinase 76959 H (26-192) U/L Troponin I < 0.015 (0-0.045) ng/ml Total Protein 6.9 (6.4-8.2) gm/dl Albumin 3.0 L (3.4-5.0) gm/dl Globulin 3.9 (2.5-4.0) gm/dl Albumin/Globulin Ratio 0.8 L (0.9-2) TSH 0.112 L (0.300-4.500) uIu/ml Free T4 1.47 (0.8-1.6) ng/dl Administered Medications Discontinued Medications Sodium Chloride (Nss 1000ml) 1,000 mls @ 999 mls/hr IV .Q1H1M JUDITH Stop: 03/10/21 14:15 Last Admin: 03/10/21 13:58 Dose: 999 mls/hr Documented by: [id number] Sodium Chloride (Nss 1000ml) 1,000 mls @ 999 mls/hr IV .Q1H1M ONE Stop: 03/10/21 15:44 Last Admin: 03/10/21 16:39 Dose: 999 mls/hr Documented by: [id number] Potassium Chloride (K Pete / Wtr) 10 meq in 100 mls @ 100 mls/hr IV Q1H STA Stop: 03/10/21 16:57 Last Admin: 03/10/21 16:39 Dose: 100 mls/hr Documented by: [id number] Ondansetron HCl (Ondansetron Inj 2 Mg/Ml 2 Ml Vial) 4 mg IV NOW STA Stop: 03/10/21 13:14 Last Admin: 03/10/21 13:58 Dose: 4 mg Documented by: [id number] Potassium Chloride (Potassium Chloride Crtab 20 Meq Tabcr) 20 meq PO NOW STA Stop: 03/10/21 14:45 Last Admin: 03/10/21 16:41 Dose: 20 meq Documented by: [id number] Potassium Chloride (Potassium Chloride 10 Meq Tabcr) 20 meq PO NOW STA Stop: 03/10/21 15:59 Last Admin: 03/10/21 16:39 Dose: 20 meq Documented by: [id number] Imaging Data Radiologist's Impression: Chest X-Ray 03/10/21 13:13 XR chest 1V portable CLINICAL HISTORY: weakness COMPARISON STUDY: 11/22/2019 FINDINGS: The patient is hyperinflated. The heart is normal in size. There is no failure. There is no focal pulmonary consolidation. There are no pleural effusions.[Postsurgical changes involve the right lung apex. There is underlying pulmonary emphysema. IMPRESSION: Pulmonary emphysema. No acute findings. ACT 112: Negative or not required by law. Electronically signed by: Umer Lam M.D. 03/10/2021 1:[address] 03/10/21 13:13 CT head/brain wo con CLINICAL HISTORY: weakness COMPARISON STUDY: MRI the brain dated 04/06/2014, CT scan the head dated 03/19/2014 TECHNIQUE: Axial CT of the brain is performed from the vertex to the skull base. IV contrast was not administered for this examination. A dose lowering technique was utilized adhering to the principles of ALARA. CT DOSE: 537.48 mGy.cm FINDINGS: There is a 15 mm right cerebellar lesion, previously demonstrated to represent a cavernoma. There is no CT evidence of acute cortical infarction. There is no evidence of midline shift. There is no evidence of acute hemorrhage. There is no evidence of pathologic ventricular dilatation. There is no evidence of acute sinusitis IMPRESSION: 1. 15 mm right cerebellar lesion, consistent with the patient's known cavernous hemangioma 2. No acute intracranial findings. ACT 112: Negative or not required by law. Electronically signed by: Umer Lam M.D. 03/10/2021 1:56 PM Discharge Plan Visit Data Chief Complaint: Illness Stated Complaint: BLOOD IN URINE,CANT WALK,WEAKNESS ED Provider: Berlin Orona Discharge Problem: Acute renal failure due to rhabdomyolysis, Hypokalemia, Weakness Patient Disposition: Admitted As Inpatient Condition: Good Discharge Instructions Interventions: ED Discharge Assessment Last Done: 03/10/21 17:47
--- NOTE | 2021-03-10 13:43 | XRay Report ---
XR chest 1V portable CLINICAL HISTORY: weakness COMPARISON STUDY: 11/22/2019 FINDINGS: The patient is hyperinflated. The heart is normal in size. There is no failure. There is no focal pulmonary consolidation. There are no pleural effusions.[Postsurgical changes involve the righ t lung apex. There is underlying pulmonary emphysema. IMPRESSION: Pulmonary emphysema. No acute findings. ACT 112: Negative or not required by law. Electronically signed by: Umer Lam M.D. 03/10/2021 1:42 PM
[2021-03-10 13:45] LABS: Basophils # (auto) 0.01 K/uL (0-0.2); Basophils % (auto) 0.1 %; Eosinophils # (auto) 0.03 K/uL (0-0.5); Eosinophils % (auto) 0.3 %; Hemoglobin 14.3 g/dL (12.0-16.0); Lymphocytes # (auto) 1.59 K/uL (1.2-3.4); Lymphocytes % (auto) 18.4 %; Mean Corpuscular Hemoglobin 32.1 pg (25-34); Mean Corpuscular Hgb Conc 36.7 g/dL (32-36); Mean Corpuscular Volume 87.6 fL (80-100); Mean Platelet Volume 10.6 fL (7.4-10.4); Monocytes % (auto) 9.3 %; Neutrophils % (auto) 71.9 %; Platelet Count 194 K/uL (130-400); RDW Coefficient of Variation 13.3 % (11.5-14.5); Red Blood Count 4.45 M/uL (4.2-5.4); White Blood Count 8.63 K/uL (4.8-10.8)
--- NOTE | 2021-03-10 13:58 | CT Scan Report ---
CT head/brain wo con CLINICAL HISTORY: weakness COMPARISON STUDY: MRI the brain dated 04/06/2014, CT scan the head dated 03/19/2014 TECHNIQUE: Axial CT of the brain is performed from the vertex to the skull base. IV contrast was not administered for this examination. A dose lowering technique was utilized adhering to the principles of ALARA. CT DOSE: 537.48 mGy.cm FINDINGS: There is a 15 mm right cerebellar lesion, previously demonstrated to represent a cavernoma. There is no CT evidence of acute cortical infarction. There is no evidence of midline shift. There is no evide nce of acute hemorrhage. There is no evidence of pathologic ventricular dilatation. There is no evidence of acute sinusitis IMPRESSION: 1. 15 mm right cerebellar lesion, consistent with the patient's known cavernous hemangioma 2. No acute intracranial findings. ACT 112: Negative or not required by law. Electronically signed by: Umer Lam M.D. 03/10/2021 1:56 PM
[2021-03-10 14:08] LABS: Partial Thromboplastin Ratio 1.1; Partial Thromboplastin Time 28.7 Seconds (21.0-31.0); Prothrombin Time 10.4 Seconds (9.0-12.0)
[2021-03-10 14:16] LABS: Alanine Aminotransferase 318 U/L (12-78); Albumin Globulin Ratio 0.8 (0.9-2); Alkaline Phosphatase 94 U/L (45-117); Aspartate Aminotransferase 518 U/L (15-37); BUN Creatinine Ratio 9.3 (10-20); Bilirubin,Total 0.3 mg/dl (0.2-1); Blood Urea Nitrogen 56 mg/dl (7-18); Calcium 8.6 mg/dl (8.5-10.1); Carbon Dioxide 24 mmol/L (21-32); Chloride 99 mmol/L (98-107); Est GFR (African American) 8.3; Est GFR (Non-African American) 7.1; Globulin 3.9 gm/dl (2.5-4.0); Glucose 129 mg/dl (70-99); Magnesium 2.6 mg/dl (1.8-2.4); Potassium 2.7 mmol/L (3.5-5.1); Sodium 136 mmol/L (136-145); Total Protein 6.9 gm/dl (6.4-8.2); Troponin I < 0.015 ng/ml (0-0.045)
[2021-03-10 14:36] LABS: Thyroid Stimulating Hormone 0.112 uIu/ml (0.300-4.500)
[2021-03-10] MEDS ORDERED: SODIUM CHLORIDE 0.9% 1000ML 1,000 ML IV ONE (14:44)
[2021-03-10] MEDS ORDERED: POTASSIUM CHLORIDE CRTAB 20 MEQ TABCR PO STA (14:44)
[2021-03-10 14:48] LABS: Creatine Kinase 29078 U/L (26-192)
[2021-03-10 14:58] LABS: T4 Free Thyroxine 1.47 ng/dl (0.8-1.6)
--- NOTE | 2021-03-10 15:12 | History & Physical Report ---
Date of Service March 10, 2021 Assessment & Plan (1) Acute renal failure: -Admit to [facility] with telemetry -Creatinine elevated at 6.06 on admission, has a baseline of 0.6-0.8 as an outpatient -Likely worsened secondary to rhabdomyolysis with creatinine kinase of 29,078 -Question if this is secondary to statin therapy, has been on Crestor for many years, no other new medications or changes in dosages, no recent trauma or injury sustained, no changes in diet/p.o. intake. -Hold Crestor -Consult nephrology secondary to acute renal failure -Given 1L NSS in the ER, continue hydration with NSS x3 L at 150 mL/h, encourage oral hydration -Recheck BMP at 1999 (2) Rhabdomyolysis: -Elevated creatinine kinase as above, will aggressively hydrate (3) Hypokalemia: -2.7 on admission, replace with total of 40 meq p.o. and 40 meq IV -Repeat BMP this evening (4) CAD (coronary artery disease): -Follows with Angeline Madsen as an outpatient -Had most recent nuclear stress test echo on 02/21/2021 which showed normal LVEF of 55 to 59%, Moderate MR There is a small/moderate pericardial effusion, with fibrous strands suggesting this is a chronic issue. When looking back at old echo reports, she has had a small/moderate sized effusion for many years and is unchanged. -Continue ASA 81mg daily -Holding Crestor as above, will need to discuss with cardiology regarding luevano ging statin or discontinuing altogether (5) HLD (hyperlipidemia): -Statin as above (6) COPD (chronic obstructive pulmonary disease): - History of smoking 25-50 pack years, currently still smoking 1/2 pack daily, started at age 11, denies need for nicotine patch -Uses O2 2L via NC at bedtime and with exertion at baseline (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, stable as per CT of the head and brain -Follows with neurology as an outpatient but has not seen them in some time (8) Neurofibromatosis: -History of such, stable (9) Seizure: -Occurred 1 time many years ago, no further seizure-like events (10) Gastroparesis: -Stable, has been able to tolerate p.o., some mild nausea prior to presentation today improved with Zofran (11) DVT prophylaxis: - teds, scds, ambulatory CODE: Full code Dispo: From home, likely to remain in the hospital x 1-2 days History of Present Illness Primary Care Provider: Jayme Chamberlain MD PMHx Sheryl is a 55-year-old female with CAD (prior inferior STEMI BMS to RCA in 2010), HLD, severe COPD previously being evaluated for lung transplant at [place] in [place] for lung transplant however turned down because of history of neurofibromatosis), neurofibromatosis, small pericardial effusion and supraventricular ectopy. History of cerebellar cavernoma and possible history of remote hemorrhage., Neurology has followed her and has seen repeat findings on MRI of the brain showing cavernous malformation, however unfortunately location and risk of bleeding and possible if hemorrhage occurred it was deemed high risk to proceed with ischemic work-up including need for dual antiplatelet therapy therefore that has not been done. Patient presents to the ER today with feeling of weakness in her bilateral lower extremities. She reports feeling like her potassium was low and that she was dehydrated so has been drinking lots of fluids. This started 5 days ago. She reports that her muscle pain in her legs and in the left arm has progressively been getting worse. She also notices that her urine went from being a clear yellow to being cloudy and [id number]. She has only peed 2 times today. Patient has been able to tolerate p.o. intake until this morning when she became nauseous. Zofran has been given and is helping. Of note she has been taking all her medication as prescribed. Patient has been on Crestor for many years. She continues to smoke 1/2 pack cigarettes per day, wears supplemental oxygen at night at 2 L via NC as well as 2 L on exertion. Patient lives at home with her who is present here at bedside Today upon blood work completion, she was found to be in rhabdomyolysis with a creatinine kinase which is significantly elevated, and renal failure with creatinine of 6.06, and elevated AST and ALT. Allergies Allergy/AdvReac Type Severity Reaction Status Date / Time adhesive Allergy Unknown BANDAIDS Verified 03/10/21 15:01 SKIN ABRASION milk Allergy Unknown PATIENT Verified 03/10/21 15:01 REPORTS HIVES TO COOL WHIP Sulfa (Sulfonamide Allergy Unknown HIVES Verified 03/10/21 15:01 Antibiotics) tramadol Allergy Unknown . Verified 03/10/21 15:01 meperidine AdvReac Unknown MOOD SWINGS Verified 03/10/21 15:01 Home Medications Medication Instructions Recorded Confirmed Type albuterol sulfate [Ventolin HFA] 2 puff INHALATION Q4H PRN #0 12/25/08 03/10/21 History omeprazole magnesium [Prilosec OTC] 20 mg PO BID #0 cap 09/17/14 03/10/21 History aspirin 81 mg PO QAM #0 12/12/14 03/10/21 History ipratropium-albuterol 3 ml INHALATION QID PRN #0 inh 12/12/14 03/10/21 History levothyroxine [Synthroid] 75 mcg PO QAM #0 12/12/14 03/10/21 History tizanidine 4 mg PO BID PRN #0 12/12/14 03/10/21 History Trelegy Ellipta 1 inh INHALATION QAM 08/23/19 03/10/21 History ondansetron HCl [Zofran] 4 mg PO QAM PRN 08/23/19 03/10/21 History trazodone 25 mg PO HS 11/17/19 03/10/21 History trazodone 100 mg PO HS 11/17/19 03/10/21 History acetaminophen [Tylenol Extra 500 mg PO Q6H PRN 11/22/19 03/10/21 History Strength] ibuprofen 600 mg PO Q6H PRN 11/22/19 03/10/21 History prednisone 10 mg PO UD PRN 11/22/19 03/10/21 History metoprolol succinate 37.5 mg PO UD 03/10/21 03/10/21 History pregabalin 75 mg PO BID 03/10/21 03/10/21 History rosuvastatin 40 mg PO DAILY 03/10/21 03/10/21 History Past Med/Surg History Medical History (Updated 03/10/21 @ 16:09 by Cecy Ribera PA-C) Acute exacerbation of chronic obstructive pulmonary disease (COPD) SEVERE EMPHYSEMA Gastroparesis Hx of bronchitis Hypokalemia CAN NOT TOLERATE PO POTASSIUM PILLS DUE TO GASTROPARESIS Myocardial infarction 2010 - CHEST PAIN -[facility] ER AND HAD HEART CATH WITH ONE STENT (BARE METAL) FOLLOW WITH [facility] Pneumothorax AGE 24 - SURGERY TO REPAIR THE LEFT SIDE AND CHEMICAL TREATMENT ON THE RIGHT SIDE AT [facility] 2013 ONLY HAD ONE -- ADMITTED TO [facility] --- METABOLIC RELATED ---- NO MEDICATION Surgical History History of hernia repair UMBILICAL Hx of cardiac cath 2011 HEART CATH WITH ONE STENT Hx of section X2 Hx of colonoscopy Hx of vaginal surgery 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 Family History Father Lung disease Severe emphysema Social History Smoking Status: Current every day smoker Age Started Using Tobacco: 11; Age Quit Using Tobacco: 53; packs per day: 1; Years Smoked: 42; Number of Years Since Quit: 1; Second Hand Exposure: No; Hx Alcohol Use: Yes Hx Substance Use: No Preferred Language: [place] Communication Ability: Effective Probate Paralegal Required: No Beliefs That Will Affect Care: None Current Living Situation: Spouse Feels Safe at Home: Yes Assistive Devices: Denture - Upper and Denture - Lower Review of Systems Review of Systems: Constitutional: No fever, sweats or chills Eyes: No diplopia, no worsening or blurred vision ENT: normal hearing, no trouble swallowing Respiratory: + Chronic dry cough, no sputum, no dyspnea at rest or on exertion, wears supplemental O2 as per HPI Cardiovascular: No chest pain, tightness or palpitations Abdomen: + Lower abdominal pain, + nausea, no vomiting, diarrhea or constipation : Patient reports darkening urine, cloudy, urination x2 today Musculoskeletal: No joint pain, calf pain, swelling Neurologic: + Generalized weakness, no numbness/tingling, or balance problems Psychiatric: No anxiety or depression Skin: No rash or itch Physical Exam Physical Exam: General: awake, alert, no apparent distress, + thin Head: Normocephalic, atraumatic ENT: PERRL, EOMI, no pharyngeal exudate, mucous membranes moist Chest: + Barrel chested, on room air, + dry smoker's cough, diminished breath sounds throughout, no wheeze whereas no rhonchi Cardiac: Regular rate and rhythm, no murmur, no JVD, normal peripheral pulses, good capillary refill Abdominal: NABS x 4 quadrants, soft, nondistended, minimally tender in suprapubic region, otherwise nontender to palpation, no rebound or guarding Back: No CVA tenderness Extremities: Normal inspection, no peripheral edema or erythema, calfs nontender to palpation Psych: Normal mood and affect Neuro: AAO x 3, strength intact bilaterally and rated 5/5, no motor deficits, speech is clear, no peripheral sensory deficits Results & Data Results & Data ([facility]) Vital Signs (Past 12 Hours) Vital Signs Temp Pulse Resp BP Pulse Ox 03/10/21 12:51 36.9 C 51 L 18 148/46 H 98 Diagnostic Findings Chest X-Ray 03/10/21 13:13 XR chest 1V portable CLINICAL HISTORY: weakness COMPARISON STUDY: 11/22/2019 FINDINGS: The patient is hyperinflated. The heart is normal in size. There is no failure. There is no focal pulmonary consolidation. There are no pleural effusions.[Postsurgical changes involve the right lung apex. There is underlying pulmonary emphysema. IMPRESSION: Pulmonary emphysema. No acute findings. ACT 112: Negative or not required by law. Electronically signed by: Umer Lam M.D. 03/10/2021 1:[address] 03/10/21 13:13 CT head/brain wo con CLINICAL HISTORY: weakness COMPARISON STUDY: MRI the brain dated 04/06/2014, CT scan the head dated 03/19 TECHNIQUE: Axial CT of the brain is performed from the vertex to the skull base. IV contrast was not administered for this examination. A dose lowering technique was utilized adhering to the principles of ALARA. CT DOSE: 537.48 mGy.cm FINDINGS: There is a 15 mm right cerebellar lesion, previously demonstrated to represent a cavernoma. There is no CT evidence of acute cortical infarction. There is no evidence of midline shift. There is no evidence of acute hemorrhage. There is no evidence of pathologic ventricular dilatation. There is no evidence of acute sinusitis IMPRESSION: 1. 15 mm right cerebellar lesion, consistent with the patient's known cavernous hemangioma 2. No acute intracranial findings. ACT 112: Negative or not required by law. Electronically signed by: Umer Lam M.D. 03/10/2021 1:56 PM Code Status & VTE Plan Code Status Full code VTE Prophylaxis Plan VTE Prophylaxis will be ordered: Yes Supervising Physician Co-Signing Physician Notes Attending addendum: The patient was seen and examined in the emergency room in presence of the She has been complaining of pain in the legs and also right upper extremity for more than 1 week Has been having dark urine and weakness of the legs as well for the last day or 2 Denies any fever and/or chills, any abdominal pain, nausea and/or vomiting, no chest pain and/or palpitation On examination No apparent distress at rest Hemodynamically stable Chest-decreased breath sounds with occasional wheezing bilaterally Heart-S1-S2, regular Abdomen-benign, nontender, bowel sounds present Extremitiestrace edema bilaterally CNSalert, awake and oriented x3. No focal sensory and motor deficit appreciated Her labs, EKG and imaging studies reviewed Significant findings where increasing BUN and creatinine and hypokalemia with very high CPK level and abnormal liver function test Has rhabdomyolysis with UNRULY Will give generous IV fluid and monitor PRP and CK level Nephrology consulted Agree with assessment and plan as outlined above by Cecy Ugalde
[2021-03-10] MEDS ORDERED: POTASSIUM CHLORIDE / WTR 10 MEQ/100 ML PLCT IV STA (15:58)
[2021-03-10] MEDS ORDERED: POTASSIUM CHLORIDE 10 MEQ TABCR PO STA (15:58)
[2021-03-10 16:56] LABS: Influenza A virus by PCR Negative (Neg); Influenza B virus by PCR Negative (Neg); RSV by PCR Negative (Neg); SARS CoV2 RNA(COVID-19) InHosp NEGATIVE (Negative)
[2021-03-10] MEDS: SODIUM CHLORIDE 0.9% 1000ML 1,000 ML IV SCH (19:18)
[2021-03-10] MEDS ORDERED: MoRPHine SULFATE 2 MG/ML CARP IV STA (20:02)
[2021-03-10 20:38] LABS: BUN Creatinine Ratio 9.6 (10-20); Calcium 7.1 mg/dl (8.5-10.1); Creatinine Clr Calc Pharmacy 11.2 ml/min; Est GFR (African American) 9.8; Est GFR (Non-African American) 8.5; Potassium 3.3 mmol/L (3.5-5.1); Troponin I 0.038 ng/ml (0-0.045)
[2021-03-10] MEDS ORDERED: POTASSIUM CHLORIDE CRTAB 20 MEQ TABCR PO ONE (21:00)
[2021-03-10] MEDS: traZODone HCL 50 MG TAB PO SCH (21:12)
[2021-03-10] MEDS: PANTOprazole 40 MG TAB PO SCH (21:12)
[2021-03-10] MEDS: METOPROLOL SUCC 25MG EXT REL TAB PO SCH (21:15)
[2021-03-10 21:52] LABS: Appearance Urine Turbid (Clear); Bacteria Urine Automated Negative (Negative); Bilirubin Urine Negative (Negative); Blood Urine 3+ (Negative); Cast Urine Automated 0 /lpf (0-5); Color Urine Yellow; Glucose Urine UA Negative (Negative); Ketones Urine Negative (Negative); Leukocyte Esterase Urine 3+ (Negative); Nitrite Urine Positive (Negative); Protein Urine 2+ (Negative); RBC Urine Automated 0-4 /hpf (0-4); Urobilinogen Urine Negative (Negative); WBC Urine Automated >30 /hpf (0-5); pH Urine 5.5 (4.5-7.5)
[2021-03-11] MEDS: SODIUM CHLORIDE 0.9% 1000ML 1,000 ML IV SCH ×2 (01:04→06:03)
[2021-03-11] MEDS: LEVOTHYROXINE SODIUM 75 MCG TABLET PO SCH (06:03)
[2021-03-11 07:05] LABS: Hematocrit (blood only) 34.7 % (37-47); Hemoglobin 12.5 g/dL (12.0-16.0); Mean Corpuscular Hemoglobin 31.8 pg (25-34); Mean Corpuscular Volume 88.3 fL (80-100); Mean Platelet Volume 10.6 fL (7.4-10.4); Platelet Count 154 K/uL (130-400); RDW Coefficient of Variation 13.5 % (11.5-14.5); RDW Standard Deviation 44.4 fL (36.4-46.3); Red Blood Count 3.93 M/uL (4.2-5.4); White Blood Count 7.01 K/uL (4.8-10.8)
[2021-03-11] MEDS: ASPIRIN 81 MG ECTAB PO SCH (07:36)
[2021-03-11] MEDS: PANTOprazole 40 MG TAB PO SCH ×2 (07:37→20:50)
[2021-03-11] MEDS: FLUTICASONE FUROATE 100MCG 14 PUFFS/INHALER INH SCH (07:37)
[2021-03-11] MEDS: METOPROLOL SUCC 25MG EXT REL TAB PO SCH ×2 (07:37→20:53)
[2021-03-11] MEDS: UMECLIDINIUM/VILANTEROL 62.5/25MCG 7 PUFFS/INHALER INH SCH (07:37)
[2021-03-11 07:52] LABS: Alanine Aminotransferase 287 U/L (12-78); Albumin Globulin Ratio 0.7 (0.9-2); Albumin Level 2.1 gm/dl (3.4-5.0); Alkaline Phosphatase 70 U/L (45-117); Aspartate Aminotransferase 470 U/L (15-37); BUN Creatinine Ratio 8.8 (10-20); Bilirubin Direct < 0.1 mg/dl (0-0.2); Bilirubin,Total 0.3 mg/dl (0.2-1); Blood Urea Nitrogen 44 mg/dl (7-18); Calcium 7.8 mg/dl (8.5-10.1); Carbon Dioxide 17 mmol/L (21-32); Chloride 115 mmol/L (98-107); Creatinine Clr Calc Pharmacy 12.2 ml/min; Est GFR (African American) 10.4; Globulin 3.1 gm/dl (2.5-4.0); Glucose 87 mg/dl (70-99); Magnesium 2.1 mg/dl (1.8-2.4); Phosphorus 4.8 mg/dl (2.5-4.9); Potassium 3.8 mmol/L (3.5-5.1); Sodium 141 mmol/L (136-145); Total Protein 5.2 gm/dl (6.4-8.2); Troponin I 0.041 ng/ml (0-0.045)
--- NOTE | 2021-03-11 08:50 | Nephrology Consultation ---
Date of Consultation March 11, 2021 Assessment & Plan (1) Rhabdomyolysis: meets criteria for rhadomyolysis by CK and urine findings (dipstick blood w/o RBC on micro) supports this as well. Certainly the statin may have a role here. However rhabdomyolysis can also come on from hypokalemia and hyperthyroidism. Additionally, hypokalemia in the setting of statin use for example can pose heightened risk for rhabdomyolysis. Possible that her hypokalemia is brought on by NSAID use; few othe rfactors Trend basic metabolic panel and CK and uric acid, phos every 8 hours >> repeat CK stable essentially She needs continued aggressive fluid resuscitation, as aggressive as she can tolerate physically: will start her on bicarb gtt with K for now at 250 mL/hourly -Strict I's and O's are critical for this patient for the next 24 to 48 hours at least care coordinated w/ Dr Ugalde Present on Admission?: Yes (2) Acute renal failure: Baseline creatinine 0.9. Presenting creatinine 6.1 on March 10. Improved to 5 this morning. In the setting of rhabdomyolysis likely multifactorial. Significant hypokalemia on presentation which is improving; however with emerging nongap acidosis. Report of oliguria prior to admission, this has thankfully not been observed here. No obstruction or other lesions on ult rasound. 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 -Labs as above No current indication for dialysis but cannot rule out the need -Avoid all NSAIDs -would also minimize/avoid morphine w/ her degree of renal failure and ensure that other pain meds are redosed for current degree of renal failure (3) Transaminitis: Improving since admission with transaminases in the 100s and downtrending currently Check transaminases daily -Again no NSAIDs (4) Electrolyte abnormality: Hypokalemia on presentation. Patient with remote history of this. No offending medications apart from high-dose ibuProfen use dosed multiple times daily. -as above History of Present Illness Reason for Consultation: Acute renal failure, rhabdomyolysis Requesting Physician: Dr Owens Attending Physician: Prince Ugalde MD History of Present Illness 55-year-old female whom I am asked to evaluate for acute renal failure and rhabdomyolysis after she was admitted yesterday afternoon for same in the wake of presenting with 1.5 weeks of bilateral lower extremity weakness concerning to her for low potassium. Past medical history includes coronary artery disease (status post 2011 coronary stent), neurofibromatosis w/ associated lung disease >> severe centrilobular emphysema and hypoxia requiring 2 L oxygen with exertion and at bedtime, active tobacco abuse 1 pack/day, hypothyroid, sicca syndrome, gastroparesis, irritable bowel syndrome, degenerative disc disease, right cerebellar cavernoma deemed a bleeding risk by neurology and not a candidate for dual platelet therapy. She was evaluated previously for lung transplant but deemed not a candidate (?d/t neurofibromatosis). Also w/ known pelvic R kidney. Her baseline creatinine is 0.8-0.9, though last check is April 2020. She has had issues in the past with hypokalemia, with potassium running in the low threes at times; last issue with this was 2017. Does not take potassium supplements as an outpatient, reportedly not tolerated due to gastroparesis. She does take ibuprofen, at least bid 600 mg and at times more frequently. Her presenting creatinine was 6.1 yesterday afternoon, improved to 5 this morning with aggressive fluid resuscitation w/ NS. Admission chemistries remarkable also for presenting potassium 2.7. Improved to 3.8 this morning. Her bicarb was 24 on presentation, down to 17 this morning. Chloride has increa sed from normal range as well to 115 this morning. Phosphorus, calcium, magnesium within normal limits on presentation; albumin 3.0 on presentation. Creatinine kinase on presentation 29,078. Repeat level pending. Her presenting TSH was 0.112. Admission urine was remarkable for Blood and protein with some white cells and no bacteria. The patient reported concern for oliguria prior to admission and a few episodes of dark red/ "asael" urine. She has made in excess of 850 mL of urine since presentation (1 uncounted void). She has also received 5 L of fluid intra venously. She states that for past 1.5 weeks her breathing has been better but w/ intermittent gross hematuria above was concerned for UTI. No other voiding sx; no change in chronic urgency/frequency which hsa bene stable. She endorses ongoing full body cramps/aches, worse with extending her limbs, improved by staying "balled up." No edema, no increased abd girth. Ongoing generalized weakness: states that pulling up blankets "is a chore." Denies missed or doubled/increased doses of thryoid medication. No diarrhea, n/v; her gastroparesis has been stable. Allergies Allergy/AdvReac Type Severity Reaction Status Date / Time adhesive Allergy Unknown BANDAIDS Verified 03/10/21 15:01 SKIN ABRASION milk Allergy Unknown PATIENT Verified 03/10/21 15:01 REPORTS HIVES TO COOL WHIP Sulfa (Sulfonamide Allergy Unknown HIVES Verified 03/10/21 15:01 Antibiotics) tramadol Allergy Unknown . Verified 03/10/21 15:01 meperidine AdvReac Unknown MOOD SWINGS Verified 03/10/21 15:01 Home Medications Medication Instructions Recorded Confirmed Type albuterol sulfate [Ventolin HFA] 2 puff INHALATION Q4H PRN #0 12/25/08 03/10/21 History omeprazole magnesium [Prilosec OTC] 20 mg PO BID #0 cap 09/17/14 03/10/21 History aspirin 81 mg PO QAM #0 12/12/14 03/10/21 History ipratropium-albuterol 3 ml INHALATION QID PRN #0 inh 12/12/14 03/10/21 History levothyroxine [Synthroid] 75 mcg PO QAM #0 12/12/14 03/10/21 History tizanidine 4 mg PO BID PRN #0 12/12/14 03/10/21 History Trelegy Ellipta 1 inh INHALATION QAM 08/23/19 03/10/21 History ondansetron HCl [Zofran] 4 mg PO QAM PRN 08/23/19 03/10/21 History trazodone 25 mg PO HS 11/17/19 03/10/21 History trazodone 100 mg PO HS 11/17/19 03/10/21 History acetaminophen [Tylenol Extra 500 mg PO Q6H PRN 11/22/19 03/10/21 History Strength] ibuprofen 600 mg PO Q6H PRN 11/22/19 03/10/21 History prednisone 10 mg PO UD PRN 11/22/19 03/10/21 History metoprolol succinate 37.5 mg PO UD 03/10/21 03/10/21 History pregabalin 75 mg PO BID 03/10/21 03/10/21 History rosuvastatin 40 mg PO DAILY 03/10/21 03/10/21 History Patient History Medical History Acute exacerbation of chronic obstructive pulmonary disease (COPD) SEVERE EMPHYSEMA CAD (coronary artery disease) Cavernous hemangioma of brain Gastroparesis Hx of bronchitis Hypokalemia CAN NOT TOLERATE PO POTASSIUM PILLS DUE TO GASTROPARESIS Myocardial infarction 2010 - CHEST PAIN -[facility] AND HAD HEART CATH WITH ONE STENT (BARE METAL) FOLLOW WITH [facility] Neurofibromatosis Pneumothorax AGE 24 - SURGERY TO REPAIR THE LEFT SIDE AND CHEMICAL TREATMENT ON THE RIGHT SIDE AT [facility] 2013 ONLY HAD ONE -- ADMITTED TO [facility] --- METABOLIC RELATED ---- NO MEDICATION Surgical History History of hernia repair UMBILICAL Hx of cardiac cath 2010 HEART CATH WITH ONE STENT Hx of section X2 Hx of colonoscopy Hx of vaginal surgery 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 Family History Father Lung disease Severe emphysema, pneumothorax Social History Smoking Status: Current every day smoker Age Started Using Tobacco: 11; Age Quit Using Tobacco: 53; packs per day: 1; Years Smoked: 42; Cigarettes Per Day: 6; Number of Years Since Quit: 1; Second Hand Exposure: No; Do You Dip or Chew Tobacco: No; Tobacco Cessation Education Requested by Patient: No Hx Alcohol Use: Yes Alcohol type: hard liquor Hx Substance Use: Yes Last Used Substance: Days (ago) Preferred Language: Belarusian Communication Ability: Effective Airplane Coverer Required: No Beliefs That Will Affect Care: Roman Catholic Current Living Situation: Spouse and Family Other Information That Helps Us Care for You: No Feels Safe at Home: Yes Safety Concerns: Feels Safe At This Time Assistive Devices: Denture - Upper, Denture - Lower and Oxygen - at Night Review of Systems Review of Systems: All systems reviewed & are unremarkable except as noted in HPI & below Physical Exam Constitutional: well developed, well nourished, + thin and cooperative; no acute distress lying flat in bed on RA, maneuvers readily for exam Eyes: EOM intact bilaterally ENMT: Ears: no external ear abnormality Nose: no external nose abnormality Mouth: + dry oral mucous membranes and + edentulous Neck: no nuchal rigidity Respiratory: normal respiratory effort Auscultation: + diminished lung sounds (minimal air mvt); no crackles, no rales, no rhonchi and no wheezes Cardiovascular: RRR, no murmur, no edema Gastrointestinal (Abdomen): Inspection/Auscultation: normal bowel sounds; abdomen not distended Percussion/Palpation: abdomen soft; abdomen nontender Musculoskeletal: Extremities: strength 5/5 throughout Skin: no rashes, warm and dry Neurologic: norman, fluent speech, no tremor Psychiatric: Orientation: alert and oriented x 3 Speech: normal rate/rhythm/volume of speech Affect: + anxious affect and + tearful affect Genitourinary: no burton Results & Data ([facility]) Vital Signs (Past 12 Hours) Vital Signs Temp Pulse Pulse Resp BP BP Pulse Ox 03/11/21 07:13 36.4 C L 77 18 140/87 96 03/11/21 03:25 36.8 C 70 18 97/63 L 95 03/10/21 23:59 70 03/10/21 22:45 36.7 C 73 18 92/60 L 98 03/10/21 21:15 80 131/80 Laboratory Results 03/11/21 06:48 03/11/21 06:48 Covid, influenza, RSV PCR all negative Yesterday's urinalysis: Turbid yellow urine pH 5.5 specific gravity 1010, 2+ protein, 3+ blood, positive nitrates, positive leukocyte Estrace, greater than 30 white cells, 10-20 epithelial cells, no bacteria, no bilirubin no urobilinogen no ketones no glucose, 0-4 RBC/[place] [id number] Diagnostic Findings Renal ultrasound this morning FINDINGS: There is a right pelvic kidney. The kidney measures 9.4 cm in length. The left kidney measures 10.5 cm. There is no evidence of hydronephrosis. Th ere are no renal masses. There is suspected slight increase in renal cortical echogenicity. This may indicate medical renal disease There is a lobular bladder wall thickening. Urine within the bladder is somewhat echogenic. IMPRESSION : 1. Right-sided pelvic kidney 2. No evidence of hydronephrosis 2. Suspected slight increase in renal cortical echogenicity. This may indicate medical renal disease 4. Nonspecific lobular bladder wall thickening. Nonemergent urology consultation recommended. Head CT yesterday 1. 15 mm right cerebellar lesion, consistent with the patient's known cavernous hemangioma 2. No acute intracranial findings. Chest x-ray yesterday IMPRESSION: Pulmonary emphysema. No acute findings. (1) Acute renal failure Acute renal failure type: unspecified Qualified Code(s): N17.9 - Acute kidney failure, unspecified (2) Rhabdomyolysis Rhabdomyolysis type: non-traumatic Qualified Code(s): M62.82 - Rhabdomyolysis
[2021-03-11] MEDS ORDERED: PREGABALIN 75 MG CAP PO SCH ×2 (09:00→21:00)
--- NOTE | 2021-03-11 09:02 | Ultrasound Report ---
EXAMINATION: RENAL ULTRASOUND CLINICAL HISTORY: class 3 acute renal failure/ rhabdomyolysis COMPARISON STUDY: CT scan dated 08/23/2019 FINDINGS: There is a right pelvic kidney. The kidney measures 9.4 cm in length. The left kidney measu res 10.5 cm. There is no evidence of hydronephrosis. There are no renal masses. There is suspected slight increase in renal cortical echogenicity. This may indicate medical renal disease There is a lobular bladder wall thickening. Urine within the bladder is somewhat echogenic. IMPRESSION : 1. Right-sided pelvic kidney 2. No evidence of hydronephrosis 2. Suspected slight increase in renal cortical echogenicity. This may indicate medical renal disease 4. Nonspecific lobular bladder wall thickening. Nonemergent urology consultation recommended. ACT 112: Positive. There are findings on this exam that require communication between the performing entity and the patient following Patient Test Result Information Act ([place] Act 112) guidelines. Electronically signed by: Umer Lam M.D. 03/11/2021 9:00 AM
[2021-03-11] MEDS: oxyCODONE HCL SOLN 5 MG/5 ML UDC PO PRN ×3 (11:00→23:34)
[2021-03-11] MEDS ORDERED: SODIUM BICARBONATE 8.4% 150 MEQ, POTASSIUM CHLORIDE 20 MEQ in DEXTROSE 5% 1,000 ML IV STA (11:27)
[2021-03-11] MEDS: cefTRIAXone SODIUM 1,000 MG in DEXTROSE 5% 50 ML IV SCH (12:04)
--- NOTE | 2021-03-11 14:13 | Hospitalist Progress Note ---
Date of Service March 11, 2021 Assessment & Plan (1) Acute renal failure: -Creatinine elevated at 6.06 on admission, has a baseline of 0.6-0.8 as an outpatient -Likely worsened secondary to rhabdomyolysis with creatinine kinase of 29,078 -Question if this is secondary to statin therapy, has been on Crestor for many years, no other new medications or changes in dosages, no recent trauma or injury sustained, no changes in diet/p.o. intake. -Hold Crestor -Consult nephrology secondary to acute renal failure -Given 1L NSS in the ER, continue hydration with NSS x3 L at 200 mL/h, encourage oral hydration -Creatinine has been improving -Appreciate nephrology input and recommendation -Ultrasound of the kidney did not show right-sided pelvic kidney without any other significant abnormalities -Has been getting bicarb drip and will monitor PRP (2) Rhabdomyolysis: -Elevated creatinine kinase as above, will aggressively hydrate -Creatine kinase increased a little bit -We will continue with aggressive intravenous fluid with bicarb and monitor CK l evel (3) Hypokalemia: -2.7 on admission, replace with total of 40 meq p.o. and 40 meq IV -Getting potassium replacement -Monitor PRP (4) CAD (coronary artery disease): -Follows with Angeline Madsen as an outpatient -Had most recent nuclear stress test echo on 02/21/2021 which showed normal LVEF of 55 to 59%, Moderate MR There is a small/moderate pericardial effusion, with fibrous strands suggesting this is a chronic issue. When looking back at old echo reports, she has had a small/moderate sized effusion for many years and is unchanged. 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, stable as per CT of the head and brain -Follows with neurology as an outpatient but has not seen them in some time (8) Neurofibromatosis: -History of such, stable (9) Seizure: -Occurred 1 time many years ago, no further seizure-like events (10) Gastroparesis: -Stable, has been able to tolerate p.o., some mild nausea prior to presentation today improved with Zofran (11) DVT prophylaxis: - teds, scds, ambulatory CODE: Full code Dispo: From home, likely to remain in the hospital x 1-2 days Admission and Anticipated Discharge Date Admission Date: March 10, 2021 Subjective 03/11/2021 The patient was seen and examined in medical telemetry unit She was admitted with aches and pains in lower extremities right upper extremity with associated weakness Still complains to have some pain but feels better Denies any fever and/or chills Has been voiding normally Review of Systems Review of Systems: All systems reviewed and are unremarkable except as noted below Gastrointestinal: no abdominal pain, no nausea and no vomiting Musculoskeletal: Pain involving the muscles mostly lower extremities Physical Exam Physical Exam: Lying in bed comfortably Constitutional: + ill appearing and average body habitus Eyes: PERRL, conjunctivae normal, anicteric sclerae ENMT: external ear and nose normal, oropharynx normal Neck: trachea midline, no thyromegaly Respiratory: no respiratory distress Auscultation: + diminished lung sounds and + crackles (Occasional crackles) Cardiovascular: Rate/Rhythm: regular rate and regular rhythm Heart Sounds: no murmur Extremities: no edema Gastrointestinal (Abdomen): Inspection/Auscultation: normal bowel sounds; abdomen not distended Percussion/Palpation: abdomen soft; abdomen nontender Musculoskeletal: Pain in the muscles more than in joints Neurologic: Alert, awake and oriented x3 Psychiatric: A+Ox3, euthymic affect Lymphatic: no cervical or axillary lymphadenopathy Results & Data Results & Data ([facility]) Vital Signs (Past 12 Hours) Vital Signs Temp Pulse Pulse Resp BP BP Pulse Ox 03/11/21 11:37 36.9 C 63 16 120/83 97 03/11/21 08:00 75 03/11/21 07:13 36.4 C L 77 18 140/87 96 03/11/21 03:25 36.8 C 70 18 97/63 L 95 Laboratory Results Short CBC 03/11/21 Range/Units 06:48 WBC 7.01 (4.8-10.8) K/uL Hgb 12.5 (12.0-16.0) g/dL Hct 34.7 L (37-47) % Plt Count 154 (130-400) K/uL BMP 03/10/21 03/10/21 03/11/21 13:37 19:53 06:48 Sodium 136 140 141 Potassium 2.7 L 3.3 L D 3.8 D Chloride 99 110 H 115 H Carbon Dioxide 24 21 17 L BUN 56 H 51 H 44 H Creatinine 6.06 H* 5.25 H* D 4.99 H* Glucose 129 H 120 H 87 Calcium 8.6 7.1 L D 7.8 L Cardiac Enzymes 03/10/21 03/10/21 03/11/21 Range/Units 13:37 19:53 06:48 Total Creatine Kinase 77502 H (26-192) U/L Troponin I < 0.015 0.038 0.041 (0-0.045) ng/ml 03/11/21 Range/Units 06:48 Total Creatine Kinase 92967 H (26-192) U/L Troponin I (0-0.045) ng/ml Liver Function 03/10/21 03/11/21 Range/Units 13:37 06:48 Total Bilirubin 0.3 0.3 (0.2-1) mg/dl Direct Bilirubin < 0.1 (0-0.2) mg/dl AST 518 H 470 H (15-37) U/L ALT 318 H 287 H (12-78) U/L Alkaline Phosphatase 94 70 (45-117) U/L Albumin 3.0 L 2.1 L (3.4-5.0) gm/dl Urine 03/10/21 Range/Units 21:35 Urine Color Yellow Urine Appearance Turbid A (Clear) Urine pH 5.5 (4.5-7.5) Ur Specific [place] 1.010 (1.000-1.030) Urine Protein 2+ H (Negative) Urine Glucose (UA) Negative (Negative) Medications Administered Current Inpatient Medications Acetaminophen (Acetaminophen 325 Mg Tab) 650 mg PO Q4H PRN PRN Reason: Moderate Pain Stop: 04/09/21 18:22 Albuterol (Albuterol Hfa 8 Gm Inhaler) 2 puffs INH Q4R PRN PRN Reason: Shortness Of Breath Stop: 04/10/21 08:11 Albuterol (Albut/Ipratrop 3mg/0.5mg Neb 3 Ml Vial) 3 ml INH QIDR PRN PRN Reason: copd Stop: 04/10/21 08:11 Aspirin (Aspirin 81 Mg Ectab) [facility] Stop: 04/10/21 08:59 Last Admin: 03/11/21 07:36 Dose: 81 mg Documented by: Fluticasone Furoate (Fluticasone Furoate 100mcg 14 Puffs/Inhaler) 1 puffs INH [facility]; Protocol Stop: 04/10/21 08:59 Last Admin: 03/11/21 07:37 Dose: 1 puffs Documented by: Ceftriaxone Sodium 1,000 mg/ (Dextrose) 50 mls @ 100 mls/hr IV Q24H [facility]; Protocol Stop: 03/16/21 11:59 Last Infusion: 03/11/21 12:43 Dose: Infused Documented by: Sodium Bicarbonate 150 meq/Potassium Chloride 20 meq/Dextrose 1,160 mls @ 200 mls/hr IV .Q5H48M [facility] Stop: 03/11/21 17:14 Last Infusion: 03/11/21 12:44 Dose: 200 mls/hr Documented by: Levothyroxine Sodium (Levothyroxine Sodium 75 Mcg Tablet) [facility] Stop: 04/10/21 06:29 Last Admin: 03/11/21 06:03 Dose: 75 mcg Documented by: Metoprolol Succinate (Metoprolol Succ 25mg Ext Rel Tab) 25 mg [facility] Stop: 04/10/21 08:59 Last Admin: 03/11/21 07:37 Dose: 25 mg Documented by: Metoprolol Succinate (Metoprolol Succ 25mg Ext Rel Tab) 12.5 mg PO QPM [facility] Stop: 04/09/21 20:59 Last Admin: 03/10/21 21:15 Dose: 12.5 mg Documented by: Ondansetron HCl (Ondansetron Inj 2 Mg/Ml 2 Ml Vial) 4 mg IV Q4H PRN PRN Reason: Nausea And Vomiting Stop: 04/09/21 18:22 Oxycodone HCl (Oxycodone Hcl Soln 5 Mg/5 Ml Udc) 5 mg PO Q6H PRN PRN Reason: Pain Stop: 03/25/21 10:45 Last Admin: 03/11/21 11:00 Dose: 5 mg Documented by: Pantoprazole Sodium (Pantoprazole 40 Mg Tab) 40 mg PO BID [facility]; Protocol Stop: 04/09/21 20:59 Last Admin: 03/11/21 07:37 Dose: 40 mg Documented by: Pregabalin (Pregabalin 75 Mg Cap) 75 mg PO QAM [facility] Stop: 04/10/21 08:59 Last Admin: 03/11/21 08:14 Dose: 75 mg Documented by: Trazodone HCl (Trazodone Hcl 50 Mg Tab) 125 mg PO HS [facility] Stop: 04/09/21 20:59 Last Admin: 03/10/21 21:12 Dose: 125 mg Documented by: Umeclidinium/Vilanterol (Umeclidinium/Vilanterol 62.5/25mcg 7 Puffs/Inhaler) 1 puffs [facility]H [facility]; Protocol Stop: 04/10/21 08:59 Last Admin: 03/11/21 07:37 Dose: 1 puffs Documented by: (1) Acute renal failure Acute renal failure type: unspecified Qualified Code(s): N17.9 - Acute kidney failure, unspecified (2) Rhabdomyolysis Rhabdomyolysis type: non-traumatic Qualified Code(s): M62.82 - Rhabdomyolysis
[2021-03-11] MEDS: ACETAMINOPHEN 325 MG TAB PO PRN (15:57)
[2021-03-11 16:10] LABS: BUN Creatinine Ratio 8.6 (10-20); Calcium 7.4 mg/dl (8.5-10.1); Est GFR (African American) 10.2; Est GFR (Non-African American) 8.8; Phosphorus 4.5 mg/dl (2.5-4.9); Potassium 4.1 mmol/L (3.5-5.1)
--- NOTE | 2021-03-11 17:27 | Electrocardiogram Report ---
Test Reason : Blood Pressure : / mmHG Vent. Rate : 076 BPM Atrial Rate : 076 BPM P-R Int : 182 ms QRS Dur : 112 ms QT Int : 386 ms P-R-T Axes : 087 079 071 degrees QTc Int : 434 ms Sinus rhythm with sinus arrhythmia with frequent Premature ventricular complexes Incomplete right bundle branch block Borderline ECG When compared with ECG of 22-NOV-2019 14:20, Premature ventricular complexes are now Present Confirmed by Jesus Garzon ([id number]) on 03/11/2021 5:27:10 PM Referred By: REFERRED SELF Confirmed By:Connor Garzon
--- NOTE | 2021-03-11 17:31 | Electrocardiogram Report ---
Test Reason : Blood Pressure : / mmHG Vent. Rate : 083 BPM Atrial Rate : 083 BPM P-R Int : 194 ms QRS Dur : 096 ms QT Int : 360 ms P-R-T Axes : 074 076 054 degrees QTc Int : 423 ms Sinus rhythm with sinus arrhythmia with occasional Premature ventricular complexes Incomplete right bundle branch block Nonspecific ST and T wave abnormality Abnormal ECG When compared with ECG of 10-MAR-2021 15:01, (unconfirmed) ST now depressed in Anterior leads Confirmed by Jesus Garzon ([id number]) on 03/11/2021 5:30:52 PM Referred By: REFERRED SELF Confirmed By:Connor Garzon
[2021-03-11] MEDS: SODIUM BICARBONATE 8.4% 75 MEQ in SODIUM CHLORIDE 0.45 % 1,000 ML IV SCH ×2 (18:18→23:32)
[2021-03-11] MEDS: POTASSIUM CHLORIDE 10 MEQ TABCR PO SCH (20:48)
[2021-03-11] MEDS: traZODone HCL 50 MG TAB PO SCH (20:49)
[2021-03-11] MEDS: ONDANSETRON INJ 2 MG/ML 2 ML VIAL IV PRN (21:37)
[2021-03-12] MEDS: SODIUM BICARBONATE 8.4% 75 MEQ in SODIUM CHLORIDE 0.45 % 1,000 ML IV SCH ×2 (05:02→10:23)
[2021-03-12] MEDS: LEVOTHYROXINE SODIUM 75 MCG TABLET PO SCH (06:01)
[2021-03-12 06:23] LABS: Basophils # (auto) 0.02 K/uL (0-0.2); Basophils % (auto) 0.2 %; Eosinophils # (auto) 0.08 K/uL (0-0.5); Hematocrit (blood only) 35.4 % (37-47); Hemoglobin 12.4 g/dL (12.0-16.0); Lymphocytes # (auto) 1.46 K/uL (1.2-3.4); Mean Corpuscular Hemoglobin 30.8 pg (25-34); Mean Corpuscular Volume 88.1 fL (80-100); Mean Platelet Volume 10.4 fL (7.4-10.4); Monocytes # (auto) 0.67 K/uL (0.11-0.59); Monocytes % (auto) 8.3 %; Neutrophils # (auto) 5.86 K/uL (1.4-6.5); Neutrophils % (auto) 72.5 %; Platelet Count 164 K/uL (130-400); RDW Coefficient of Variation 13.4 % (11.5-14.5); RDW Standard Deviation 43.4 fL (36.4-46.3); Red Blood Count 4.02 M/uL (4.2-5.4); White Blood Count 8.09 K/uL (4.8-10.8)
[2021-03-12] MEDS: oxyCODONE HCL SOLN 5 MG/5 ML UDC PO PRN ×2 (06:36→20:17)
[2021-03-12 07:02] LABS: Albumin Globulin Ratio 0.7 (0.9-2); Albumin Level 2.2 gm/dl (3.4-5.0); BUN Creatinine Ratio 9.2 (10-20); Bilirubin,Total 0.5 mg/dl (0.2-1); Calcium 7.5 mg/dl (8.5-10.1); Creatinine Clr Calc Pharmacy 12.9 ml/min; Est GFR (African American) 11.2; Est GFR (Non-African American) 9.6; Globulin 3.2 gm/dl (2.5-4.0); Potassium 3.4 mmol/L (3.5-5.1); Total Protein 5.4 gm/dl (6.4-8.2)
--- NOTE | 2021-03-12 07:54 | Nephrology Progress Note ---
Date of Service March 12, 2021 Assessment & Plan (1) Rhabdomyolysis: meets criteria for rhadomyolysis by CK and urine findings (dipstick blood w/o RBC on micro) supports this as well. Certainly the statin may have a role here. However rhabdomyolysis can also come on from hypokalemia and hy perthyroidism. Additionally, hypokalemia in the setting of statin use for example can pose heightened risk for rhabdomyolysis. Possible that her hypokalemia is brought on by NSAID use; few other factors cont to Trend basic metabolic panel and CK and uric acid, phos every 8 hours >> CK remains plateau'd since admission, somewhat concerning but at least not uptrending She needs continued aggressive fluid resuscitation, as aggressive as she can tolerate physically: cont 1/2 NS w/ 75 mEq/L Na bic at 250 mL hourly; added K 10 mEq/L this am to IVF; may tolerate LR if needs more K than this -Strict I's and O's remain critical for this patient for the next 24 to 48 hours at least (2) Acute renal failure: Stage 3 nonoliguric UNRULY; baseline creatinine 0.9. Presenting creatinine 6.1 on March 10. Improved slowly to 4.7 this morning. In the setting of rhabdomyolysis likely multifactorial. Significant hypokalemia on presentation which is improving; w/ medical mgt, resolution of nongap acidosis. Report of oliguria prior to admission, this has thankfully not been observed here. No obstruction or other lesions on ultrasound. 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 -Labs as above No current indication for dialysis but cannot rule out the need -Avoid all NSAIDs now and at d/c -would also minimize/avoid morphine w/ her degree of renal failure and ensure that other pain meds are dosed for current degree of renal failure (3) Transaminitis: no longer downtrending; ? from statin Check transaminases daily -Again no NSAIDs >>defer to primary service > consider abd u/s >>given her medical complexity and multiorgan failure, low threshold for GI evaluation (4) Electrolyte abnormality: Hypokalemia on presentation. Patient with remote history of this. No offending medications apart from high-dose ibuProfen use dosed multiple times daily. -as above Admission and Anticipated Discharge Date Admission Date: March 10, 2021 Subjective slept well; no sob but notes more abd fullness; no edema; very worried about her family Review of Systems Review of Systems: All systems reviewed & are unremarkable except as noted in Subjective Physical Exam Constitutional: well developed, well nourished, + thin and cooperative; no acute distress Eyes: EOM intact bilaterally ENMT: Ears: no external ear abnormality Nose: no external nose abnormality Mouth: + dry oral mucous membranes and + edentulous Neck: no nuchal rigidity Respiratory: normal respiratory effort, able to speak in complete sentences and + tachypneic (slight); no respiratory distress and no cough Auscultation: + diminished lung sounds (minimal air mvt); no crackles, no rales, no rhonchi and no wheezes on RA Cardiovascular: RRR, no murmur, no edema Gastrointestinal (Abdomen): Inspection/Auscultation: normal bowel sounds; abdomen not distended Percussion/Palpation: abdomen soft; abdomen nontender Musculoskeletal: Extremities: strength 5/5 throughout Skin: no rashes, warm and dry Neurologic: norman, fluent speech, slight tremors noted Psychiatric: Orientation: alert and oriented x 3 Motor Behavior: + psychomotor retardation Affect: + anxious affect and + tearful affect Results & Data ([facility]) Vital Signs (Past 12 Hours) Vital Signs Temp Pulse Pulse Resp BP BP Pulse Ox 03/12/21 07:00 66 03/12/21 02:53 36.5 C 80 18 120/93 90 03/12/21 00:21 76 03/11/21 22:25 36.4 C L 74 18 119/77 95 03/11/21 20:52 67 114/68 Laboratory Results 03/12/21 05:27 03/12/21 05:27 (1) Acute renal failure Acute renal failure type: unspecified Qualified Code(s): N17.9 - Acute kidney failure, unspecified (2) Rhabdomyolysis Rhabdomyolysis type: non-traumatic Qualified Code(s): M62.82 - Rhabdomyolysis
[2021-03-12] MEDS: ASPIRIN 81 MG ECTAB PO SCH (08:03)
[2021-03-12] MEDS: UMECLIDINIUM/VILANTEROL 62.5/25MCG 7 PUFFS/INHALER INH SCH (08:03)
[2021-03-12] MEDS: FLUTICASONE FUROATE 100MCG 14 PUFFS/INHALER INH SCH (08:03)
[2021-03-12] MEDS: PANTOprazole 40 MG TAB PO SCH ×2 (08:03→20:19)
[2021-03-12] MEDS: METOPROLOL SUCC 25MG EXT REL TAB PO SCH ×2 (08:04→20:19)
[2021-03-12] MEDS: POTASSIUM CHLORIDE 10 MEQ TABCR PO SCH ×2 (08:04→20:20)
--- NOTE | 2021-03-12 10:01 | Ultrasound Report ---
US liver CLINICAL HISTORY: High transaminases COMPARISON STUDY: CT of the abdomen and pelvis August 23, 2019. FINDINGS: No hepatic lesions are identified. No intrahepatic biliary ductal dilatation is identified. Portal and dilatation of the common bile duct measuring 7 mm is noted. No common bile duct calculi a re identified by sonography. The gallbladder is mildly distended. There is no gallbladder wall thicke mejia. No gallstones are noted. The pancreas is obscured by overlying bowel gas. There is no right hyd ronephrosis. IMPRESSION: 1. No gallstones. Mild gallbladder distention without gallbladder wall thickening. 2. Top normal caliber common bile duct. 3. Obscured pancreas. ACT 112: Negative or not required by law. Electronically signed by: Shaheed Xiong M.D. 03/12/2021 9:59 AM
[2021-03-12] MEDS: ONDANSETRON INJ 2 MG/ML 2 ML VIAL IV PRN ×2 (10:15→23:08)
[2021-03-12] MEDS: SODIUM BICARBONATE 8.4% 75 MEQ, POTASSIUM CHLORIDE 10 MEQ in SODIUM CHLORIDE 0.45 % 1,0... IV SCH ×3 (10:16→20:04)
[2021-03-12] MEDS: PROMETHAZINE HCL 6.25 MG in SODIUM CHLORIDE 0.9% 50 ML IV PRN (12:03)
--- NOTE | 2021-03-12 12:31 | Hospitalist Progress Note ---
Date of Service March 12, 2021 Assessment & Plan (1) Acute renal failure: -Creatinine elevated at 6.06 on admission, has a baseline of 0.6-0.8 as an outpatient -Likely worsened secondary to rhabdomyolysis with creatinine kinase of 29,078 -Question if this is secondary to statin therapy, has been on Crestor for many years, no other new medications or changes in dosages, no recent trauma or injury sustained, no changes in diet/p.o. intake. -Hold Crestor -Consult nephrology secondary to acute renal failure -Given 1L NSS in the ER, continue hydration with NSS x3 L at 200 mL/h, encourage oral hydration -Creatinine has been improving -Appreciate nephrology input and recommendation -Ultrasound of the kidney did not show right-sided pelvic kidney without any other significant abnormalities -Kidney function has been improving with creatinine down to 4.72 today -Continue current intravenous fluid as advised by the husbandry technician (2) Rhabdomyolysis: -Elevated creatinine kinase as above, will aggressively hydrate -Creatine kinase increased a little bit -We will continue with aggressive intravenous fluid with bicarb and monitor CK level -CK level is minimally improved at 26,630 from 30,000 721 -We will monitor CPK Elevated hepatic enzymes Likely secondary to side effect of Crestor Does not seems to be obstructive and ultrasound of the liver was unremarkable We will monitor liver enzymes (3) Hypokalemia: -2.7 on admission, replace with total of 40 meq p.o. and 40 meq IV -Getting potassium replacement -Monitor PRP (4) CAD (coronary artery disease): -Follows with Angeline Madsen as an outpatient -Had most recent nuclear stress test echo on 02/21/2021 which showed normal LVEF of 55 to 59%, Moderate MR There is a small/moderate pericardial effusion, with fibrous strands suggesting this is a chronic issue. When looking back at old echo reports, she has had a small/moderate sized effusion for many years and is unchanged. 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, stable as per CT of the head and brain -Follows with neurology as an outpatient but has not seen them in some time (8) Neurofibromatosis: -History of such, stable (9) Seizure: -Occurred 1 time many years ago, no further seizure-like events (10) Gastroparesis: -Stable, has been able to tolerate p.o., some mild nausea prior to presentation today improved with Zofran (11) DVT prophylaxis: - teds, scds, ambulatory CODE: Full code Dispo: From home, likely to remain in the hospital x 1-2 days Admission and Anticipated Discharge Date Admission Date: March 10, 2021 Subjective 03/11/2021 The patient was seen and examined in medical telemetry unit She was admitted with aches and pains in lower extremities right upper extremity with associated weakness Still complains to have some pain but feels better Denies any fever and/or chills Has been voiding normally 03/12/2021 The patient was seen and examined in medical telemetry unit She still complains to have aches and pains in multiple areas of the body but no joint pain Complaints of nausea and is not controlled with intravenous Zofran Does not seems to be in acute confusion Review of Systems Review of Systems: All systems reviewed and are unremarkable except as noted below Musculoskeletal: Pain involving the muscles mostly lower extremities Physical Exam Physical Exam: Lying in bed some distress due to muscle pain Constitutional: + ill appearing and average body habitus Eyes: PERRL, conjunctivae normal, anicteric sclerae ENMT: external ear and nose normal, oropharynx normal Neck: trachea midline, no thyromegaly Respiratory: no respiratory distress Auscultation: + diminished lung sounds and + crackles (Occasional crackles) Cardiovascular: Rate/Rhythm: regular rate and regular rhythm Heart Sounds: no murmur Extremities: no edema Gastrointestinal (Abdomen): Inspection/Auscultation: normal bowel sounds; abdomen not distended Percussion/Palpation: abdomen soft; abdomen nontender Musculoskeletal: No acute arthritis in any joint Neurologic: Alert, awake and oriented x3. Generally weak but no focal neuro deficit Psychiatric: A+Ox3, euthymic affect Lymphatic: no cervical or axillary lymphadenopathy Results & Data Results & Data ([facility]) Vital Signs (Past 12 Hours) Vital Signs Temp Pulse Pulse Resp BP Pulse Ox 03/12/21 08:23 36.7 C 73 18 121/81 92 03/12/21 08:00 36.6 C 82 18 117/72 03/12/21 07:00 66 03/12/21 02:53 36.5 C 80 18 120/93 90 Laboratory Results Short CBC 03/12/21 Range/Units 05:27 WBC 8.09 (4.8-10.8) K/uL Hgb 12.4 (12.0-16.0) g/dL Hct 35.4 L (37-47) % Plt Count 164 (130-400) K/uL BMP 03/11/21 03/12/21 15:09 05:27 Sodium 139 139 Potassium 4.1 3.4 L D Chloride 112 H 106 Carbon Dioxide 21 29 BUN 43 H 44 H Creatinine 5.10 H* 4.72 H* D Glucose 116 H 95 Calcium 7.4 L 7.5 L Cardiac Enzymes 03/11/21 03/12/21 Range/Units 15:09 05:27 Total Creatine Kinase 54543 H 92867 H (26-192) U/L Liver Function 03/12/21 Range/Units 05:27 Total Bilirubin 0.5 (0.2-1) mg/dl AST 518 H (15-37) U/L ALT 376 H (12-78) U/L Alkaline Phosphatase 73 (45-117) U/L Albumin 2.2 L (3.4-5.0) gm/dl Medications Administered Current Inpatient Medications Acetaminophen (Acetaminophen 325 Mg Tab) 650 mg PO Q4H PRN PRN Reason: Moderate Pain Stop: 04/09/21 18:22 Last Admin: 03/11/21 15:57 Dose: 650 mg Documented by: Albuterol (Albuterol Hfa 8 Gm Inhaler) 2 puffs INH Q4R PRN PRN Reason: Shortness Of Breath Stop: 04/10/21 08:11 Albuterol (Albut/Ipratrop 3mg/0.5mg Neb 3 Ml Vial) 3 ml INH QIDR PRN PRN Reason: copd Stop: 04/10/21 08:11 Aspirin (Aspirin 81 Mg Ectab) 81 mg PO QAM [facility] Stop: 04/10/21 08:59 Last Admin: 03/12/21 08:03 Dose: 81 mg Documented by: Fluticasone Furoate (Fluticasone Furoate 100mcg 14 Puffs/Inhaler) 1 puffs INH [facility]; Protocol Stop: 04/10/21 08:59 Last Admin: 03/12/21 08:03 Dose: 1 puffs Documented by: Ceftriaxone Sodium 1,000 mg/ (Dextrose) 50 mls @ 100 mls/hr IV Q24H [facility]; Protocol Stop: 03/16/21 11:59 Last Infusion: 03/11/21 12:43 Dose: Infused Documented by: Sodium Bicarbonate 75 meq/Potassium Chloride 10 meq/Sodium Chloride 1,080 mls @ 250 mls/hr IV .Q4H20M [facility] Stop: 04/11/21 10:29 Last Infusion: 03/12/21 12:05 Dose: 0 mls/hr Documented by: Promethazine HCl 6.25 mg/ (Sodium Chloride) 50.25 mls @ 201 mls/hr IV Q6H PRN PRN Reason: Nausea And Vomiting Stop: 04/11/21 11:19 Last Admin: 03/12/21 12:03 Dose: 201 mls/hr Documented by: Levothyroxine Sodium (Levothyroxine Sodium 75 Mcg Tablet) [facility] Stop: 04/10/21 06:29 Last Admin: 03/12/21 06:01 Dose: 75 mcg Documented by: Metoprolol Succinate (Metoprolol Succ 25mg Ext Rel Tab) [facility] Stop: 04/10/21 08:59 Last Admin: 03/12/21 08:04 Dose: 25 mg Documented by: Metoprolol Succinate (Metoprolol Succ 25mg Ext Rel Tab) 12.5 mg PO QPM [facility] Stop: 04/09/21 20:59 Last Admin: 03/11/21 20:53 Dose: 12.5 mg Documented by: Ondansetron HCl (Ondansetron Inj 2 Mg/Ml 2 Ml Vial) 4 mg IV Q4H PRN PRN Reason: Nausea And Vomiting Stop: 04/09/21 18:22 Last Admin: 03/12/21 10:15 Dose: 4 mg Documented by: Oxycodone HCl (Oxycodone Hcl Soln 5 Mg/5 Ml Udc) 5 mg PO Q6H PRN PRN Reason: Pain Stop: 03/25/21 10:45 Last Admin: 03/12/21 06:36 Dose: 5 mg Documented by: Pantoprazole Sodium (Pantoprazole 40 Mg Tab) 40 mg PO BID [facility]; Protocol Stop: 04/09/21 20:59 Last Admin: 03/12/21 08:03 Dose: 40 mg Documented by: Potassium Chloride (Potassium Chloride 10 Meq Tabcr) 10 meq PO BID [facility] Stop: 04/10/21 20:59 Last Admin: 03/12/21 08:04 Dose: 10 meq Documented by: Trazodone HCl (Trazodone Hcl 50 Mg Tab) 125 mg PO HS [facility] Stop: 04/09/21 20:59 Last Admin: 03/11/21 20:49 Dose: 100 mg Documented by: Umeclidinium/Vilanterol (Umeclidinium/Vilanterol 62.5/25mcg 7 Puffs/Inhaler) 1 puffs INH QAM [facility]; Protocol Stop: 04/10/21 08:59 Last Admin: 03/12/21 08:03 Dose: 1 puffs Documented by: (1) Acute renal failure Acute renal failure type: unspecified Qualified Code(s): N17.9 - Acute kidney failure, unspecified (2) Rhabdomyolysis Rhabdomyolysis type: non-traumatic Qualified Code(s): M62.82 - Rhabdomyolysis
[2021-03-12] MEDS: cefTRIAXone SODIUM 1,000 MG in DEXTROSE 5% 50 ML IV SCH (14:00)
[2021-03-12 15:32] LABS: BUN Creatinine Ratio 8.9 (10-20); Calcium 7.9 mg/dl (8.5-10.1); Creatinine Clr Calc Pharmacy 13.2 ml/min; Est GFR (African American) 11.5; Est GFR (Non-African American) 9.9; Potassium 3.6 mmol/L (3.5-5.1)
[2021-03-12] MEDS: ALBUT/IPRATROP 3MG/0.5MG NEB 3 ML VIAL INH PRN (16:52)
[2021-03-12] MEDS ORDERED: Nursing to Pharmacy Communication SCH (19:15)
[2021-03-12] MEDS: LACTATED RINGER'S 1,000 ML IV SCH (19:52)
[2021-03-12] MEDS: traZODone HCL 50 MG TAB PO SCH (20:20)
[2021-03-13] MEDS: LACTATED RINGER'S 1,000 ML IV SCH ×3 (03:42→21:08)
[2021-03-13] MEDS: LEVOTHYROXINE SODIUM 75 MCG TABLET PO SCH (06:19)
[2021-03-13] MEDS: PROMETHAZINE HCL 6.25 MG in SODIUM CHLORIDE 0.9% 50 ML IV PRN ×2 (07:50→18:17)
[2021-03-13 08:06] LABS: Hematocrit (blood only) 34.9 % (37-47); Hemoglobin 12.3 g/dL (12.0-16.0); Mean Corpuscular Hemoglobin 31.4 pg (25-34); Mean Corpuscular Hgb Conc 35.2 g/dL (32-36); Mean Platelet Volume 10.7 fL (7.4-10.4); Platelet Count 167 K/uL (130-400); RDW Coefficient of Variation 13.7 % (11.5-14.5); RDW Standard Deviation 45.2 fL (36.4-46.3); Red Blood Count 3.92 M/uL (4.2-5.4); White Blood Count 7.37 K/uL (4.8-10.8)
[2021-03-13 08:13] LABS: INR 1.1 (0.9-1.1); Prothrombin Time 10.9 Seconds (9.0-12.0)
--- NOTE | 2021-03-13 08:36 | Nephrology Progress Note ---
Date of Service March 13, 2021 Assessment & Plan (1) Rhabdomyolysis: meets criteria for rhadomyolysis by CK and urine findings (dipstick blood w/o RBC on micro) supports this as well. Certainly the statin is likeliest culprit here. However rhabdomyolysis can also come on from hypokalemia and hyperthyroidism. Additionally, hypokalemia in the setting of statin use for example can pose heightened risk for rhabdomyolysis. Possible that her hypokalemia at admission was brought on by NSAID use; few other factors contributing cont to Trend basic metabolic panel and CK and uric acid, phos every 12-24 hours >> CK had improved last evening to 13,000, a promising trend but back up to 21K today >?if outlier yesterday She needs continued aggressive fluid resuscitation, though we can scale back somewhat: For now continue lactated Ringer's at 125 mL/h -Strict I's and O's remain critical for this patient for the next 24 to 48 hours at least Care coordinated w/ Dr Olvera >> he reports concerns late this afternoon about more sob >> plan to ck CXR; will also repeat bmp (2) Acute renal failure: Stage 3 nonoliguric UNRULY; baseline creatinine 0.9. Presenting creatinine 6.1 on March 10. Improved slowly to 4.7 this morning. In the setting of rhabdomyolysis likely multifactorial. Significant hypokalemia on presentation which is improving; w/ medical mgt, resolution of nongap acidosis. Report of oliguria prior to admission, this has thankfully not been observed here. No obstruction or other lesions on ultrasound. 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 At this point do not believe she will need dialysis emergently. -Labs as above pending and as above -Avoid all NSAIDs now and at d/c -would also minimize/avoid morphine w/ her degree of renal failure and ensure that other pain meds are dosed for current degree of renal failure -Potassium rich fluid and potassium supplements as above. We will likely be able to stop potassium supplements this morning but await labs (3) Transaminitis: no longer downtrending as of yesterday with today's labs pending; ? from statin Check transaminases daily -Again no NSAIDs >>defer to primary service > consider abd u/s >>given her medical complexity and multiorgan failure, low threshold for GI evaluation (4) Electrolyte abnormality: Hypokalemia on presentation. Patient with remote history of this. No offending medications apart from high-dose ibuProfen use dosed multiple times daily. -as above Admission and Anticipated Discharge Date Admission Date: March 10, 2021 Subjective pt seen and evaluated on rounds at 0930; very anxious about her course; needs to know how long she'll be admitted, some worsening sob, some cough; challenging to walk d/t weakness and gluteal/quad pain; no voiding concerns, no n/v/d Review of Systems Review of Systems: All systems reviewed & are unremarkable except as noted in Subjective Physical Exam Constitutional: well developed, well nourished, + acute distress (anxious, t earful), + thin and cooperative Eyes: EOM intact bilaterally ENMT: Ears: no external ear abnormality Nose: no external nose abnormality Mouth: + dry oral mucous membranes and + edentulous Neck: no nuchal rigidity Respiratory: normal respiratory effort, + cough (dry), able to speak in complete sentences and + tachypneic (slight); no respiratory distress Auscultation: + diminished lung sounds (minimal air mvt); no crackles, no rales, no rhonchi and no wheezes Cardiovascular: RRR, no murmur, no edema Gastrointestinal (Abdomen): Inspection/Auscultation: normal bowel sounds; abdomen not distended Percussion/Palpation: abdomen soft; abdomen nontender Musculoskeletal: Extremities: strength 5/5 throughout Skin: no rashes, warm and dry Neurologic: norman, fluent speech, no tremor Psychiatric: Orientation: alert and oriented x 3 Speech: normal rate /rhythm/volume of speech Affect: + anxious affect and + tearful affect Results & Data ([facility]) Vital Signs (Past 12 Hours) Vital Signs Temp Pulse Pulse Resp BP Pulse Ox 03/13/21 08:04 36.6 C 74 18 130/80 94 03/13/21 07:00 74 03/13/21 02:38 36.6 C 66 18 110/68 96 03/13/21 00:20 72 03/12/21 22:33 36.7 C 88 18 107/67 97 Laboratory Results 03/13/21 07:39 03/13/21 07:39 ck [id number] (1) Acute renal failure Acute renal failure type: unspecified Qualified Code(s): N17.9 - Acute kidney failure, unspecified (2) Rhabdomyolysis Rhabdomyolysis type: non-traumatic Qualified Code(s): M62.82 - Rhabdomyolysis
[2021-03-13] MEDS: ASPIRIN 81 MG ECTAB PO SCH (08:38)
[2021-03-13] MEDS: FLUTICASONE FUROATE 100MCG 14 PUFFS/INHALER INH SCH (08:38)
[2021-03-13] MEDS: POTASSIUM CHLORIDE 10 MEQ TABCR PO SCH ×2 (08:38→20:54)
[2021-03-13] MEDS: METOPROLOL SUCC 25MG EXT REL TAB PO SCH ×2 (08:38→20:54)
[2021-03-13] MEDS: UMECLIDINIUM/VILANTEROL 62.5/25MCG 7 PUFFS/INHALER INH SCH (08:39)
[2021-03-13] MEDS: PANTOprazole 40 MG TAB PO SCH ×2 (08:39→20:54)
[2021-03-13 09:03] LABS: Albumin Globulin Ratio 0.7 (0.9-2); Albumin Level 2.1 gm/dl (3.4-5.0); BUN Creatinine Ratio 8.6 (10-20); Bilirubin,Total 0.4 mg/dl (0.2-1); Calcium 8.3 mg/dl (8.5-10.1); Creatinine Clr Calc Pharmacy 13.5 ml/min; Est GFR (African American) 11.8; Est GFR (Non-African American) 10.2; Potassium 3.6 mmol/L (3.5-5.1); Total Protein 5.1 gm/dl (6.4-8.2)
[2021-03-13] MEDS: oxyCODONE HCL SOLN 5 MG/5 ML UDC PO PRN (10:52)
[2021-03-13] MEDS: cefTRIAXone SODIUM 1,000 MG in DEXTROSE 5% 50 ML IV SCH (12:17)
--- NOTE | 2021-03-13 12:47 | Hospitalist Progress Note ---
Date of Service March 13, 2021 Assessment & Plan (1) Acute renal failure: -Creatinine elevated at 6.06 on admission, has a baseline of 0.6-0.8 as an outpatient. -Today down to 4.52. -CK of 29,000 on admission. Today 21,000 from 13,000 yesterday -Possibly contributed by Crestor however patient has been on it for many years. -Appreciate nephrology input. -Continue with maintenance IV fluids. -Continue monitor daily ins and outs. -Ultrasound of the kidney did not show right-sided pelvic kidney without any other significant abnormalities. (2) Rhabdomyolysis: CK of 29,000 on admission, today 21,000 from 13,000 yesterday. Continue aggressive fluid resuscitation. Continue to monitor daily CK levels. Elevated hepatic enzymes Likely secondary to side effect of Crestor Does not seems to be obstructive and ultrasound of the liver was unremarkable (3) Hypokalemia: resolved (4) CAD (coronary artery disease): -Follows with Angeline Madsen as an outpatient -Had most recent nuclear stress test echo on 02/21/2021 which showed normal LVEF of 55 to 59%, Moderate MR There is a small/moderate pericardial effusion, with fibrous strands suggesting this is a chronic issue. When looking back at old echo reports, she has had a small/moderate sized effusion for many years and is unchanged. 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, stable as per CT of the head and brain -Follows with neurology as an outpatient but has not seen them in some time (8) Neurofibromatosis: -History of such, stable (9) Seizure: -Occurred 1 time many years ago, no further seizure-like events (10) Gastroparesis: -Stable, has been able to tolerate p.o., some mild nausea prior to presentation today improved with Zofran (11) DVT prophylaxis: - teds, scds, ambulatory CODE: Full code Dispo: From home, likely to remain in the hospital x 1-2 days Admission and Anticipated Discharge Date Admission Date: March 10, 2021 Subjective Patient reports she is not feeling good. Reports her body is very crampy. Feeling fatigue. Denies any chest pain, shortness of breath, abdominal pain, diarrhea or dysuria. Denies any headache or dizziness. Review of Systems Review of Systems: All systems reviewed & are unremarkable except as noted in HPI & below Physical Exam Physical Exam: General: A&Ox3 HENT: NCAT, MMM, EOMI Eyes: PERRLA Neck: Supple, normal range of motion CVS: normal rate and rhythm Resp: b/l good breath sounds Abdomen: Soft, ND/NT, +BS Extremities: No c/c/e Neuro: face symmetric, no gross focal deficits appreciated Skin: warm and dry, no rashes/lesions/errythema MSK: normal ROM, no joint swelling/erythema Results & Data Results & Data ([facility]) Vital Signs (Past 12 Hours) Vital Signs Temp Pulse Pulse Resp BP Pulse Ox 03/13/21 11:50 36.8 C 81 20 122/89 97 03/13/21 08:04 36.6 C 74 18 130/80 94 03/13/21 07:00 74 03/13/21 02:38 36.6 C 66 18 110/68 96 (1) Acute renal failure Acute renal failure type: unspecified Qualified Code(s): N17.9 - Acute kidney failure, unspecified (2) Rhabdomyolysis Rhabdomyolysis type: non-traumatic Qualified Code(s): M62.82 - Rhabdomyolysis
[2021-03-13] MEDS ORDERED: DOCUSATE SODIUM 100 MG CAP PO STA (16:41)
[2021-03-13] MEDS ORDERED: POLYETHYLENE (MIRALAX) 17 GM PACK PO ONE (16:45)
[2021-03-13] MEDS: ONDANSETRON INJ 2 MG/ML 2 ML VIAL IV PRN (17:04)
[2021-03-13] MEDS: SENNA 8.6 MG TAB PO SCH (17:06)
[2021-03-13] MEDS: ALBUT/IPRATROP 3MG/0.5MG NEB 3 ML VIAL INH PRN (17:41)
--- NOTE | 2021-03-13 17:47 | XRay Report ---
XR chest 1V portable CLINICAL HISTORY: Hypoxia COMPARISON STUDY: 03/10/2021 FINDINGS: The heart is normal in size. There is pulmonary emphysema. There is apical pleural thickeni ng. Postsurgical changes are present at the left apex.[There is subtle interstitial thickening within the left mid to lower lung zone. IMPRESSION: 1. Pulmonary emphysema 2. Subtle nonspecific interstitial thickening within the left mid to lower lung zone. This could repr esent a subtle interstitial infectious/inflammatory process. Clinical and radiographic follow-up alphonso mmended. ACT 112: Negative or not required by law. Electronically signed by: Umer Lam M.D. 03/13/2021 5:46 PM
[2021-03-13 18:38] LABS: Albumin Globulin Ratio 0.6 (0.9-2); BUN Creatinine Ratio 8.2 (10-20); Bilirubin,Total 0.4 mg/dl (0.2-1); Calcium 8.4 mg/dl (8.5-10.1); Creatinine Clr Calc Pharmacy 13.7 ml/min; Est GFR (Non-African American) 10.4; Globulin 3.3 gm/dl (2.5-4.0); Total Protein 5.3 gm/dl (6.4-8.2)
[2021-03-13 19:15] LABS: Potassium 3.3 mmol/L (3.5-5.1)
[2021-03-13] MEDS: traZODone HCL 50 MG TAB PO SCH (20:54)
--- NOTE | 2021-03-13 22:26 | Communication Note ---
Date of Service: March 13, 2021 cxr this evening clear; labs this evening w/ slow improvement in creatinine and lower K > increased bid K supplement to 40 mEq bid first dose this evening; also had 10 mEq at 2100; may need to add K to ivf in am; >overnight will continue ivf at current rate unless worsening hypoxia
[2021-03-13] MEDS: POTASSIUM CHLORIDE CRTAB 20 MEQ TABCR PO SCH (23:33)
[2021-03-14] MEDS: oxyCODONE HCL SOLN 5 MG/5 ML UDC PO PRN ×3 (00:23→19:40)
[2021-03-14] MEDS: ALBUTEROL HFA 8 GM INHALER INH PRN (05:10)
[2021-03-14] MEDS: ALBUT/IPRATROP 3MG/0.5MG NEB 3 ML VIAL INH PRN ×3 (05:15→16:23)
[2021-03-14] MEDS: LACTATED RINGER'S 1,000 ML IV SCH ×3 (05:16→19:41)
[2021-03-14] MEDS: LEVOTHYROXINE SODIUM 75 MCG TABLET PO SCH (06:12)
[2021-03-14 06:40] LABS: Basophils # (auto) 0.02 K/uL (0-0.2); Basophils % (auto) 0.2 %; Eosinophils # (auto) 0.07 K/uL (0-0.5); Eosinophils % (auto) 0.8 %; Hematocrit (blood only) 33.2 % (37-47); Hemoglobin 11.6 g/dL (12.0-16.0); Immature Granulocytes # (auto) 0.01 K/uL (0.00-0.02); Immature Granulocytes % (auto) 0.1 %; Lymphocytes # (auto) 1.26 K/uL (1.2-3.4); Lymphocytes % (auto) 15.3 %; Mean Corpuscular Hemoglobin 31.3 pg (25-34); Mean Corpuscular Hgb Conc 34.9 g/dL (32-36); Mean Corpuscular Volume 89.5 fL (80-100); Mean Platelet Volume 10.7 fL (7.4-10.4); Monocytes # (auto) 0.59 K/uL (0.11-0.59); Monocytes % (auto) 7.2 %; Neutrophils % (auto) 76.4 %; Platelet Count 147 K/uL (130-400); RDW Coefficient of Variation 13.9 % (11.5-14.5); RDW Standard Deviation 45.8 fL (36.4-46.3); Red Blood Count 3.71 M/uL (4.2-5.4); White Blood Count 8.25 K/uL (4.8-10.8)
[2021-03-14 07:08] LABS: BUN Creatinine Ratio 8.3 (10-20); Calcium 8.1 mg/dl (8.5-10.1); Creatinine Clr Calc Pharmacy 13.8 ml/min; Est GFR (African American) 12.1; Est GFR (Non-African American) 10.4
[2021-03-14 07:36] LABS: Albumin Globulin Ratio 0.6 (0.9-2); Bilirubin,Total 0.4 mg/dl (0.2-1); Globulin 3.1 gm/dl (2.5-4.0); Total Protein 5.1 gm/dl (6.4-8.2)
[2021-03-14] MEDS: ASPIRIN 81 MG ECTAB PO SCH (08:22)
[2021-03-14] MEDS: POTASSIUM CHLORIDE CRTAB 20 MEQ TABCR PO SCH ×2 (08:23→20:21)
[2021-03-14] MEDS: METOPROLOL SUCC 25MG EXT REL TAB PO SCH ×2 (08:23→20:20)
[2021-03-14] MEDS: PANTOprazole 40 MG TAB PO SCH ×2 (08:23→20:21)
[2021-03-14] MEDS: FLUTICASONE FUROATE 100MCG 14 PUFFS/INHALER INH SCH (08:24)
[2021-03-14] MEDS: UMECLIDINIUM/VILANTEROL 62.5/25MCG 7 PUFFS/INHALER INH SCH (08:24)
[2021-03-14] MEDS: SENNA 8.6 MG TAB PO SCH (08:25)
[2021-03-14] MEDS ORDERED: ALPRAZolam 0.5 MG TABLET PO ONE ×2 (09:17→15:36)
[2021-03-14] MEDS: cefTRIAXone SODIUM 1,000 MG in DEXTROSE 5% 50 ML IV SCH (11:36)
--- NOTE | 2021-03-14 11:45 | Hospitalist Progress Note ---
Date of Service March 14, 2021 Assessment & Plan (1) Acute renal failure: -Creatinine elevated at 6.06 on admission, has a baseline of 0.6-0.8 as an outpatient. Today down to 4.42. -[place] of 29,000 [place] [id number] from . -Possibly contributed by Crestor however patient has been on it for many years. -Continue with maintenance IV fluids. -Continue monitor daily ins and outs. -Appreciate nephrology input. No indication for emergent dialsysi. -Ultrasound of the kidney did not show right-sided pelvic kidney without any other significant abnormalities. Work with PT/OT today. Overall patient appears to doing okay. She is requesting for alprazolam for anxiety which she used to occasionally take at home. (2) Rhabdomyolysis: [place] of 29,000 [place] [id number] [place] . Continue aggressive fluid resuscitation. Continue to monitor daily CK levels. Elevated hepatic enzymes Likely secondary to side effect of Crestor Does not seems to be obstructive and ultrasound of the liver was unremarkable. Contineu to monitor LFTs. (3) Hypokalemia: resolved (4) CAD (coronary artery disease): -Follows with Angeline Madsen as an outpatient -Had most recent nuclear stress test echo on 02/21/2021 which showed normal LVEF of 55 to 59%, Moderate MR There is a small/moderate pericardial effusion, with fibrous strands suggesting this is a chronic issue. When looking back at old echo reports, she has had a small/moderate sized effusion for many years and is unchanged. 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, stable as per CT of the head and brain -Follows with neurology as an outpatient but has not seen them in some time (8) Neurofibromatosis: -History of such, stable (9) Seizure: -Occurred 1 time many years ago, no further seizure-like events (10) Gastroparesis: -Stable, has been able to tolerate p.o., some mild nausea prior to presentation today improved with Zofran (11) DVT prophylaxis: - teds, scds, ambulatory CODE: Full code Dispo: From home, likely to remain in the hospital x 1-2 days Admission and Anticipated Discharge Date Admission Date: March 10, 2021 Subjective Reports she is not feeling good. She continues to feel short of breath along with nonproductive cough. Currently on 2 L of nasal cannula that she uses at home. Denies any chest pain or abdominal pain. Denies any diarrhea or dysuria. Urine output has been adequate. Review of Systems Review of Systems: All systems reviewed & are unremarkable except as noted in HPI & below Physical Exam Physical Exam: General: A&Ox3 HENT: NCAT, MMM, EOMI Eyes: PERRLA Neck: Supple, normal range of motion CVS: normal rate and rhythm Resp: b/l good breath sounds Abdomen: Soft, ND/NT, +BS Extremities: No c/c/e Neuro: face symmetric, no gross focal deficits appreciated Skin: warm and dry, no rashes/lesions/errythema MSK: normal ROM, no joint swelling/erythema Results & Data Results & Data ([facility]) Vital Signs (Past 12 Hours) Vital Signs Temp Pulse Pulse Resp BP BP Pulse Ox 03/14/21 11:19 36.6 C 86 18 86/54 L 94 03/14/21 08:30 79 03/14/21 07:46 91 H 16 96 03/14/21 07:40 36.3 C L 82 18 105/71 99 03/14/21 05:15 94 H 18 94 03/14/21 05:10 94 H 18 94 03/14/21 03:46 36.9 C 71 16 117/66 96 03/14/21 00:10 80 (1) Acute renal failure Acute renal failure type: unspecified Qualified Code(s): N17.9 - Acute kidney failure, unspecified (2) Rhabdomyolysis Rhabdomyolysis type: non-traumatic Qualified Code(s): M62.82 - Rhabdomyolysis
--- NOTE | 2021-03-14 14:39 | Nephrology Progress Note ---
Date of Service March 14, 2021 Assessment & Plan (1) Rhabdomyolysis: meets criteria for rhadomyolysis by CK and urine findings (dipstick blood w/o RBC on micro) supports this as well. Certainly the statin is likeliest culprit here. However rhabdomyolysis can also come on from hypokalemia and hyperthyroidism. Additionally, hypokalemia in the setting of statin use for example can pose heightened risk for rhabdomyolysis. Possible that her hypokalemia at admission was brought on by NSAID use; few other factors contributing cont to Trend basic metabolic panel and CK every 24 hours >> CK improved this morning to 13,000, a promising trend She needs continued aggressive fluid resuscitation but has fluid overload, so we have scaled back somewhat: For now continue lactated Ringer's at 125 mL/h -continue aggressive potassium supplements but will lower dose from 40 mEq bid to 20 mEq -Strict I's and O's remain critical for this patient for the next 24 to 48 hours at least Care coordinated w/ Dr Olvera >> he reports concerns late this afternoon about more sob >> plan to ck CXR; will also repeat bmp (2) Acute renal failure: Stage 3 nonoliguric UNRULY; baseline creatinine 0.9. Presenting creatinine 6.1 on March 10. Improved slowly to 4.5 this morning. In the setting of rhabdomyolysis likely multifactorial. Significant hypokalemia on presentation which is improving; w/ medical mgt, resolution of nongap acidosis. Report of oliguria prior to admission, this has thankfully not been observed here. No obstruction or other lesions on ultrasound. 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 At this point do not believe she will need dialysis emergently. -Labs as above pending and as above -Avoid all NSAIDs now and at d/c -would also minimize/avoid morphine w/ her degree of renal failure and ensure that other pain meds are dosed for current degree of renal failure -Potassium rich fluid and potassium supplements as above. (3) Transaminitis: very slow downtrend; ? from statin Check transaminases daily -Again no NSAIDs >>defer to primary service >>given her medical complexity and multiorgan failure, low threshold for GI evaluation (4) Electrolyte abnormality: Hypokalemia on presentation. Patient with remote history of this. No offending medications apart from high-dose ibuProfen use dosed multiple times daily. -as above Admission and Anticipated Discharge Date Admission Date: March 10, 2021 Subjective Had Xanax and feels calmer and thinking more clearly she states. Very worried about weight gain and fullness of her bilateral thighs. I feels breathing at baseline. Review of Systems Review of Systems: All systems reviewed & are unremarkable except as noted in Subjective Physical Exam Constitutional: well developed, well nourished, + thin and cooperative; no acute distress (But still anxious, tearful) Eyes: EOM intact bilaterally ENMT: Ears: no external ear abnormality Nose: no external nose abnormality Mouth: + dry oral mucous membranes and + edentulous Neck: no nuchal rigidity Respiratory: normal respiratory effort, + cough (dry), able to speak in complete sentences and + tachypneic (slight); no respiratory distress Auscultation: + diminished lung sounds (minimal air mvt); no crackles, no rales, no rhonchi and no wheezes Cardiovascular: Rate/Rhythm: regular rate and regular rhythm Heart Sounds: no murmur Extremities: + edema (Trace lower extremity edema) Gastrointestinal (Abdomen): Inspection/Auscultation: normal bowel sounds; abd omen not distended Percussion/Palpation: abdomen soft; abdomen nontender Musculoskeletal: Extremities: strength 5/5 throughout Skin: no rashes, warm and dry Psychiatric: Orientation: alert and oriented x 3 Motor Behavior: + psychomotor retardation Speech: normal rate/rhythm/volume of speech Affect: + anxious affect and + tearful affect Results & Data ([facility]) Vital Signs (Past 12 Hours) Vital Signs Temp Pulse Pulse Resp BP BP Pulse Ox 03/14/21 11:19 36.6 C 86 18 86/54 L 94 03/14/21 08:30 79 03/14/21 07:46 91 H 16 96 03/14/21 07:40 36.3 C L 82 18 105/71 99 03/14/21 05:15 94 H 18 94 03/14/21 05:10 94 H 18 94 03/14/21 03:46 36.9 C 71 16 117/66 96 Laboratory Results 03/14/21 06:19 03/14/21 06:19 (1) Rhabdomyolysis Rhabdomyolysis type: non-traumatic Qualified Code(s): M62.82 - Rhabdomyolysis (2) Acute renal failure Acute renal failure type: unspecified Qualified Code(s): N17.9 - Acute kidney failure, unspecified
[2021-03-14] MEDS: traZODone HCL 50 MG TAB PO SCH (20:21)
[2021-03-14] MEDS: ACETAMINOPHEN 325 MG TAB PO PRN (20:23)
[2021-03-15] MEDS: LACTATED RINGER'S 1,000 ML IV SCH ×3 (04:17→21:16)
[2021-03-15] MEDS: LEVOTHYROXINE SODIUM 75 MCG TABLET PO SCH (06:18)
[2021-03-15] MEDS: ALBUT/IPRATROP 3MG/0.5MG NEB 3 ML VIAL INH PRN ×4 (07:29→23:14)
[2021-03-15 08:31] LABS: BUN Creatinine Ratio 8.4 (10-20); Calcium 8.7 mg/dl (8.5-10.1); Creatinine Clr Calc Pharmacy 14.3 ml/min; Est GFR (African American) 12.6; Est GFR (Non-African American) 10.9; Potassium 4.6 mmol/L (3.5-5.1)
--- NOTE | 2021-03-15 08:47 | XRay Report ---
XR chest 1V portable CLINICAL HISTORY: Shortness of breath COMPARISON STUDY: 03/13/2021 FINDINGS: There is radiographic evidence of pulmonary emphysema. There are small bilateral pleural ef fusions. There are left basilar airspace opacities, atelectatic versus pneumonia.[ IMPRESSION: 1. Pulmonary emphysema 2. Small lateral pleural effusions 2. Left basilar airspace opacities, atelectasis versus pneumonia. ACT 112: Negative or not required by law. Electronically signed by: Umer Lam M.D. 03/15/2021 8:45 AM
--- NOTE | 2021-03-15 08:47 | Nephrology Progress Note ---
Date of Service March 15, 2021 Assessment & Plan (1) Rhabdomyolysis: meets criteria for rhadomyolysis by CK and urine findings (dipstick blood w/o RBC on micro): statin is likeliest culprit here. However rhabdomyolysis can also come from hypokalemia and hyperthyroidism. Additionally, hypokalemia in the setting of statin use for example can pose heightened risk for rhabdomyolysis. Possible that her hypokalemia at admission was brought on by NSAID use; few other factors contributing cont to Trend basic metabolic panel and CK every 24 hours >> CK improved 03/14 morning to 13,000, a promising trend > down to 8922 today >>>She needs continued aggressive fluid resuscitation but has mild fluid overload, so we have scaled back somewhat: For now continue lactated Ringer's at 125 mL/h when she will allow; she asked to have it stopped today d/t her sx >> we stopped in am >>stopped potassium supplements bid 20 mEq -Strict I's and O's remain critical for this patient for the next 24 to 48 hours at least (2) Acute renal failure: Stage 3 nonoliguric UNRULY; baseline creatinine 0.9. Presenting creatinine 6.1 on March 10. Improved slowly to 4.3 this morning. In the setting of rhabdomyolysis likely multifactorial. Significant hypokalemia on presentation which is improving; w/ medical mgt, resolution of nongap acidosis. Report of oliguria prior to admission, this has thankfully not been observed here. No obstruction or other lesions on ultrasound. 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 At this point do not believe she will need dialysis emergently. -Labs as above pending and as above -Avoid all NSAIDs now and at d/c -would also minimize/avoid morphine w/ her degree of renal failure and ensure that other pain meds are dosed for current degree of renal failure -stopped K supplements for now; cont K rich fluids if she will allow (3) Transaminitis: very slow downtrend as of yesterday; ? from statin -Again no NSAIDs >>defer to primary service >>given her medical complexity and multiorgan failure, low threshold for GI evaluation IP or outpt (4) Electrolyte abnormality: Hypokalemia on presentation. Patient with remote history of this. No offending medications apart from high-dose ibuProfen use dosed multiple times d aily. -as above Admission and Anticipated Discharge Date Admission Date: March 10, 2021 Subjective remains agitated about d/c plan; very concerned about weight gain, "tight legs," about sob, about generalized weakness Review of Systems Review of Systems: All systems reviewed & are unremarkable except as noted in Subjective Physical Exam Constitutional: well developed, well nourished, + thin and cooperative; no acute distress (But still anxious, tearful) Eyes: EOM intact bilaterally ENMT: Ears: no external ear abnormality Nose: no external nose abnormality Mouth: + dry oral mucous membranes and + edentulous Neck: no nuchal rigidity Respiratory: normal respiratory effort, + cough (dry) and able to speak in complete sentences; no respiratory distress and not tachypneic Auscultation: + diminished lung sounds (minimal air mvt) and + wheezes (today for first time R base); no crackles, no rales and no rhonchi Cardiovascular: RRR, no murmur, no edema Rate/Rhythm: regular rate and regular rhythm Heart Sounds: no murmur Extremities: + edema (Trace lower extremity edema) Gastrointestinal (Abdomen): Inspection/Auscultation: normal bowel sounds; abdomen not distended Percussion/Palpation: abdomen soft; abdomen nontender Musculoskeletal: Extremities: strength 5/5 throughout Skin: no rashes, warm and dry Psychiatric: Orientation: alert and oriented x 3 Motor Behavior: + psychomotor retardation Speech: normal rate/rhythm/volume of speech Affect: + anxious affect and + tearful affect Results & Data ([facility]) Vital Signs (Past 12 Hours) Vital Signs Temp Pulse Pulse Resp BP BP Pulse Ox 03/15/21 07:47 36.3 C L 91 H 16 127/83 95 03/15/21 07:30 19 95 03/15/21 04:54 36.6 C 75 20 90/55 L 92 03/14/21 23:51 82 03/14/21 23:24 36.8 C 78 20 96/61 L 94 Laboratory Results 03/14/21 06:19 03/15/21 07:43 (1) Acute renal failure Acute renal failure type: unspecified Qualified Code(s): N17.9 - Acute kidney failure, unspecified (2) Rhabdomyolysis Rhabdomyolysis type: non-traumatic Qualified Code(s): M62.82 - Rhabdomyolysis
[2021-03-15] MEDS: SENNA 8.6 MG TAB PO SCH (08:52)
[2021-03-15] MEDS: METOPROLOL SUCC 25MG EXT REL TAB PO SCH ×2 (08:52→21:18)
[2021-03-15] MEDS: POTASSIUM CHLORIDE CRTAB 20 MEQ TABCR PO SCH (08:52)
[2021-03-15] MEDS: FLUTICASONE FUROATE 100MCG 14 PUFFS/INHALER INH SCH (08:53)
[2021-03-15] MEDS: PANTOprazole 40 MG TAB PO SCH ×2 (08:53→21:17)
[2021-03-15] MEDS: UMECLIDINIUM/VILANTEROL 62.5/25MCG 7 PUFFS/INHALER INH SCH (08:53)
[2021-03-15] MEDS: ASPIRIN 81 MG ECTAB PO SCH (08:54)
[2021-03-15] MEDS: oxyCODONE HCL SOLN 5 MG/5 ML UDC PO PRN (08:57)
[2021-03-15] MEDS: cefTRIAXone SODIUM 1,000 MG in DEXTROSE 5% 50 ML IV SCH (12:42)
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
[2021-03-15] MEDS: LORazepam 0.5 MG TAB PO PRN (13:06)
[2021-03-15] MEDS ORDERED: Nursing to Pharmacy Communication SCH (17:45)
--- NOTE | 2021-03-15 18:31 | Hospitalist Progress Note ---
Date of Service March 15, 2021 Assessment & Plan (1) Acute renal failure: -Creatinine elevated at 6.06 on admission, has a baseline of 0.6-0.8 as an outpatient. Today down to 4.26 -CK of 29,000 [place] admission[place] [id number] from . -Possibly contributed by Crestor however patient has been on it for many years. -Continue with maintenance IV fluids. -Continue monitor daily ins and outs. -Appreciate nephrology input. No indication for emergent dialsysi. -Ultrasound of the kidney did not show right-sided pelvic kidney without any other significant abnormalities. -has been refused IVF -Discussed with patient and agreed to resume the IVF later -Pt was encouraged to increased her oral intake -Continue monitor BMP (2) Rhabdomyolysis: CK of 29,000 on admission CPK continue to trend down from 29k--> 21k--> 13K --> 8922 Continue IV fluid, but pt has been refused it Continue to monitor daily CK levels. Elevated hepatic enzymes Likely secondary to side effect of Crestor Does not seems to be obstructive and ultrasound of the liver was unremarkable. Continue to monitor LFTs. (3) Hypokalemia: K 4.6 Resolved (4) CAD (coronary artery disease): -Follows with Angeline Madsen as an outpatient -Had most recent nuclear stress test echo on 02/21/2021 which showed normal LVEF of 55 to 59%, Moderate MR There is a small/moderate pericardial effusion, with fibrous strands suggesting this is a chronic issue. When looking back at old echo reports, she has had a small/moderate sized effusion for many years and is unchanged. -Continue ASA 81mg daily -Holding Crestor as above, will need to discuss with cardiology regarding changing statin or discontinuing altogether (5) HLD (hyperlipidemia): Continue to hols statin (6) COPD (chronic obstructive pulmonary disease): - History of smoking 25-50 pack years, currently still smoking 1/2 pack daily, started at age 11, denies need for nicotine patch -Uses O2 2L via NC at bedtime and with exertion at baseline -Continue with her usual inhalers and nebulized bronchodilator -Continue oxygen supplement -Monitor resp status if narcotic and benzo given (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, stable as per CT of the head and brain -Follows with neurology as an outpatient but has not seen them in some time (8) Neurofibromatosis: -History of such, stable (9) Anxiety: (10) Depression: Pt has been asking for benzo Psych on board recommended hydroxyzine 25mg po, but pt declined to start it Pt might benefit as well from SSRI, but does not want to start it now 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 (11) Seizure: -Occurred 1 time many years ago, no further seizure-like events (12) Gastroparesis: -Stable, has been able to tolerate p.o., some mild nausea prior to presentation today improved with Zofran (13) DVT prophylaxis: - teds, scds, ambulatory CODE: Full code Dispo: From home, likely to remain in the hospital x 1-2 days Admission and Anticipated Discharge Date Admission Date: March 10, 2021 Subjective Pt was seen and examined for follow up of rhabdo Sitting in bed with no distress Pt said that she has been getting too much fluid She has been refused the IVF She said that she is very anxious and asking for benzo She said that she had dyspnea early while walking to the bathroom Review of Systems Review of Systems: All systems reviewed & are unremarkable except as noted in Subjective Physical Exam Physical Exam: General: A&Ox3 HENT: NCAT, MMM, EOMI Eyes: PERRLA Neck: Supple, normal range of motion CVS: normal rate and rhythm Resp: b/l good breath sounds Abdomen: Soft, ND/NT, +BS Extremities: No c/c/e Neuro: face symmetric, no gross focal deficits appreciated Skin: warm and dry, no rashes/lesions/errythema MSK: normal ROM, no joint swelling/erythema Results & Data Results & Data ([facility]) Vital Signs (Past 12 Hours) Vital Signs Temp Pulse Pulse Resp BP Pulse Ox Pulse Ox 03/15/21 15:36 36.8 C 78 16 99/65 L 98 03/15/21 15:13 95 03/15/21 12:02 36.8 C 90 16 111/69 95 03/15/21 11:20 91 H 19 94 03/15/21 08:00 65 03/15/21 07:47 36.3 C L 91 H 16 127/83 95 03/15/21 07:30 19 95 (1) Acute renal failure Acute renal failure type: unspecified Qualified Code(s): N17.9 - Acute kidney failure, unspecified (2) Rhabdomyolysis Rhabdomyolysis type: non-traumatic Qualified Code(s): M62.82 - Rhabdomyolysis
[2021-03-15] MEDS: traZODone HCL 50 MG TAB PO SCH (21:22)
[2021-03-16] MEDS: LACTATED RINGER'S 1,000 ML IV SCH ×2 (04:41→14:33)
[2021-03-16] MEDS: LEVOTHYROXINE SODIUM 75 MCG TABLET PO SCH (07:20)
[2021-03-16] MEDS: ALBUT/IPRATROP 3MG/0.5MG NEB 3 ML VIAL INH PRN (07:32)
[2021-03-16] MEDS: PANTOprazole 40 MG TAB PO SCH ×2 (08:03→20:57)
[2021-03-16] MEDS: METOPROLOL SUCC 25MG EXT REL TAB PO SCH ×2 (08:03→20:55)
[2021-03-16] MEDS: UMECLIDINIUM/VILANTEROL 62.5/25MCG 7 PUFFS/INHALER INH SCH (08:04)
[2021-03-16] MEDS: SENNA 8.6 MG TAB PO SCH (08:04)
[2021-03-16] MEDS: ASPIRIN 81 MG ECTAB PO SCH (08:04)
[2021-03-16] MEDS: FLUTICASONE FUROATE 100MCG 14 PUFFS/INHALER INH SCH (08:05)
[2021-03-16] MEDS: oxyCODONE HCL SOLN 5 MG/5 ML UDC PO PRN ×2 (08:16→14:33)
[2021-03-16 08:23] LABS: BUN Creatinine Ratio 7.6 (10-20); Calcium 8.2 mg/dl (8.5-10.1); Creatinine Clr Calc Pharmacy 14.3 ml/min; Est GFR (African American) 12.6; Est GFR (Non-African American) 10.9; Potassium 4.5 mmol/L (3.5-5.1)
[2021-03-16] MEDS: ALBUTEROL HFA 8 GM INHALER INH PRN (09:08)
--- NOTE | 2021-03-16 09:59 | Nephrology Progress Note ---
Date of Service March 16, 2021 Assessment & Plan (1) Rhabdomyolysis: meets criteria for rhadomyolysis by CK and urine findings (dipstick blood w/o RBC on micro): statin is likeliest culprit here. However rhabdomyolysis can also come from hypokalemia and hyperthyroidism. Additionally, hypokalemia in the setting of statin use for example can pose heightened risk for rhabdomyolysis. CK is down to 5000 on 03/16/2021 For now continue lactated Ringer's at 125 mL/h -Strict I's and O's (2) Acute renal failure: Stage 3 nonoliguric UNRULY; baseline creatinine 0.9. Presenting creatinine 6.1 on March 10. Creatinine stable at 4.2. In the setting of rhabdomyolysis likely multifactorial. Significant hypokalemia on presentation which is improving; w/ medical mgt, resolution of nongap acidosis. Report of oliguria prior to admission, this has thankfully not been observed here. No obstruction or other lesions on ultrasound. 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 At this point do not believe she will need dialysis emergently. -Daily BMP -Avoid all NSAIDs now and at d/c -would also minimize/avoid morphine w/ her degree of renal failure and ensure that other pain meds are dosed for current degree of renal failure (3) Transaminitis: Improving -Again no NSAIDs -Continue conservative management (4) Electrolyte abnormality: Hypokalemia on presentation. Patient with remote history of this. No offending medications apart from high-dose ibuProfen use dosed multiple times daily. -as above Admission and Anticipated Discharge Date Admission Date: March 10, 2021 Subjective Seen in follow-up for acute kidney injury. Main complaint this morning is shortness of breath. She is not moving her bowels. Creatinine stable. Review of Systems Review of Systems: All systems reviewed & are unremarkable except as noted in HPI & below Physical Exam Physical Exam: General exam: Appears comfortable, no acute distress HEENT: Pupils are equal and reactive to light Neck: No JVD, neck is supple trachea is midline Respiratory system: Clear breath sounds bilaterally. Gastrointestinal: Abdomen is soft, non distended, non tender, bowel sounds are present CVS: Regular rate and rhythm. No murmurs, rubs or gallops Musculoskeletal: No joint or muscle tenderness Extremities: Non tender, 1+ edema, peripheral pulses are present Neuro: Oriented, no tremors, no focal neurological deficits Skin: No rashes Results & Data ([facility]) Vital Signs (Past 12 Hours) Vital Signs Temp Pulse Pulse Resp BP Pulse Ox 03/16/21 09:09 23 03/16/21 07:37 88 03/16/21 07:33 94 H 18 96 03/16/21 07:01 37.0 C 93 H 20 118/74 98 03/16/21 04:04 36.9 C 88 20 98/64 L 93 03/16/21 01:32 99 H 03/15/21 23:25 37.0 C 64 18 111/67 94 03/15/21 23:14 97 H 20 94 Laboratory Results 03/16/21 07:36 (1) Rhabdomyolysis Rhabdomyolysis type: non-traumatic Qualified Code(s): M62.82 - Rhabdomyolysis (2) Acute renal failure Acute renal failure type: unspecified Qualified Code(s): N17.9 - Acute kidney failure, unspecified
--- NOTE | 2021-03-16 12:35 | Hospitalist Progress Note ---
Date of Service March 16, 2021 Assessment & Plan (1) Acute renal failure: -Creatinine elevated at 6.06 on admission, has a baseline of 0.6-0.8 as an outpatient. Today down to 4.26 -[place] 29,000 [place] [address] [place] . -Possibly contributed by Crestor however patient has been on it for many years. -Continue with maintenance IV fluids. -Continue monitor daily ins and outs. -Appreciate nephrology input. No indication for emergent dialsysi. -Ultrasound of the kidney did not show right-sided pelvic kidney without any other significant abnormalities. -has been refused IVF -Pt was encouraged to increased her oral intake -Will decrease IVF to half -Continue monitor BMP (2) Rhabdomyolysis: CK of 29,000 on admission CPK continue to trend down from 29k--> 21k--> 13K --> 8922 -> 5510 Continue IV fluid, but pt has been refused it Continue to monitor daily CK levels. Elevated hepatic enzymes Likely secondary to side effect of Crestor Does not seems to be obstructive and ultrasound of the liver was unremarkable. Continue to monitor LFTs. (3) Hypokalemia: K 4.5 Resolved (4) CAD (coronary artery disease): -Follows with Angeline Madsen as an outpatient -Had most recent nuclear stress test echo on 02/21/2021 which showed normal LVEF of 55 to 59%, Moderate MR There is a small/moderate pericardial effusion, with fibrous strands suggesting this is a chronic issue. When looking back at old echo reports, she has had a small/moderate sized effusion for many years and is unchanged. -Continue ASA 81mg daily -Holding Crestor as above, will need to discuss with cardiology regarding changing statin or discontinuing altogether (5) HLD (hyperlipidemia): Continue to hols statin (6) COPD (chronic obstructive pulmonary disease): - History of smoking 25-50 pack years, currently still smoking 1/2 pack daily, started at age 11, denies need for nicotine patch -Uses O2 2L via NC at bedtime and with exertion at baseline -Continue with her usual inhalers and nebulized bronchodilator (Order modify that she can get her Neb treatment QID) -Continue oxygen supplement -Monitor resp status if narcotic and benzo given (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, stable as per CT of the head and brain -Follows with neurology as an outpatient but has not seen them in some time (8) Neurofibromatosis: -History of such, stable (9) Anxiety: (10) Depression: Pt has been asking for benzo Psych on board recommended hydroxyzine 25mg po, but pt declined to start it Pt might benefit as well from SSRI, but does not want to start it now 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 (11) Seizure: -Occurred 1 time many years ago, no further seizure-like events (12) Gastroparesis: -Stable, has been able to tolerate p.o., some mild nausea prior to presentation today improved with Zofran (13) DVT prophylaxis: - teds, scds, ambulatory CODE: Full code Dispo: From home, likely to remain in the hospital x 1-2 days Admission and Anticipated Discharge Date Admission Date: March 10, 2021 Subjective Pt was seen and examined for follow up of rhabdo Sitting in bed with no distress watching TV Pt said that because of her COPD/advanced lung disease, any exertion she becomes SOB She said that she takes Neb treatment QID and rescue inhaler in between She said that she has been getting too much IVF She said that she is very anxious and asking for benzo She wants her rescue inhaler to stay at her baseline that she can have access to it when she needs She has been asking to transfer to [place] because she is not happy with her car I explained to her about the transfer process that we transfer when there is a service that we cannot provide at our facility and [facility] I told her that if the transfer is because of family preference that she might get a bill in the mail for the transfer Review of Systems Review of Systems: All systems reviewed & are unremarkable except as noted in Subjective Physical Exam Physical Exam: General: A&Ox3 HENT: NCAT, MMM, EOMI Eyes: PERRLA Neck: Supple, normal range of motion CVS: normal rate and rhythm Resp: b/l good breath sounds Abdomen: Soft, ND/NT, +BS Extremities: No c/c/e Neuro: face symmetric, no gross focal deficits appreciated Skin: warm and dry, no rashes/lesions/errythema MSK: normal ROM, no joint swelling/erythema Results & Data Results & Data ([facility]) Vital Signs (Past 12 Hours) Vital Signs Temp Pulse Pulse Resp BP Pulse Ox 03/16/21 12:14 36.8 C 91 H 18 113/77 96 03/16/21 09:09 23 03/16/21 07:37 88 03/16/21 07:33 94 H 18 96 03/16/21 07:01 37.0 C 93 H 20 118/74 98 03/16/21 04:04 36.9 C 88 20 98/64 L 93 03/16/21 01:32 99 H (1) Acute renal failure Acute renal failure type: unspecified Qualified Code(s): N17.9 - Acute kidney failure, unspecified (2) Rhabdomyolysis Rhabdomyolysis type: non-traumatic Qualified Code(s): M62.82 - Rhabdomyolysis
[2021-03-16] MEDS: guaiFENesin SUGAR FREE 200 MG/10 ML UDC PO SCH ×2 (14:34→20:53)
[2021-03-16] MEDS: ALBUT/IPRATROP 3MG/0.5MG NEB 3 ML VIAL INH SCH ×2 (15:23→19:41)
[2021-03-16] MEDS: ONDANSETRON INJ 2 MG/ML 2 ML VIAL IV PRN (19:35)
[2021-03-16] MEDS ORDERED: Nursing to Pharmacy Communication SCH (20:45)
[2021-03-16] MEDS: LORazepam 0.5 MG TAB PO PRN (20:57)
[2021-03-16] MEDS: traZODone HCL 50 MG TAB PO SCH (22:52)
[2021-03-17] MEDS: ALBUT/IPRATROP 3MG/0.5MG NEB 3 ML VIAL INH SCH ×4 (04:16→19:52)
[2021-03-17] MEDS: guaiFENesin SUGAR FREE 200 MG/10 ML UDC PO SCH ×3 (04:43→20:12)
[2021-03-17 06:34] LABS: BUN Creatinine Ratio 7.5 (10-20); Calcium 8.5 mg/dl (8.5-10.1); Creatinine Clr Calc Pharmacy 13.9 ml/min; Est GFR (African American) 12.1; Est GFR (Non-African American) 10.5; Potassium 4.2 mmol/L (3.5-5.1)
[2021-03-17] MEDS: LEVOTHYROXINE SODIUM 75 MCG TABLET PO SCH (07:04)
[2021-03-17] MEDS: LACTATED RINGER'S 1,000 ML IV SCH (07:05)
--- NOTE | 2021-03-17 09:31 | Nephrology Progress Note ---
Date of Service March 17, 2021 Assessment & Plan (1) Rhabdomyolysis: meets criteria for rhadomyolysis by CK and urine findings (dipstick blood w/o RBC on micro): statin is likeliest culprit here. However rhabdomyolysis can also come from hypokalemia and hyperthyroidism. Additionally, hypokalemia in the setting of statin use for example can pose heightened risk for rhabdomyolysis. CK is down to 4.4k on 03/17/2021 For now continue lactated Ringer's at 60 mL/h -Strict I's and O's (2) Acute renal failure: Stage 3 nonoliguric UNRULY; baseline creatinine 0.9. Presenting creatinine 6.1 on March 10. Creatinine stable at 4.4. In the setting of rhabdomyolysis likely multifactorial. Significant hypokalemia on presentation which is improving; w/ medical mgt, resolution of nongap acidosis. Report of oliguria prior to admission, this has thankfully not been observed here. No obstruction or other lesions on ultrasound. 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 -Daily BMP -Avoid all NSAIDs now and at d/c -would also minimize/avoid morphine w/ her degree of renal failure and ensure that other pain meds are dosed for current degree of renal failure (3) Transaminitis: Improving -Again no NSAIDs -Continue conservative management (4) Electrolyte abnormality: Hypokalemia on presentation. Patient with remote history of this. No offending medications apart from high-dose ibuProfen use dosed multiple times daily. -as above Admission and Anticipated Discharge Date Admission Date: March 10, 2021 Subjective Seen in follow-up for acute kidney injury and rhabdo. Her breathing is better today. She wants to have a rescue inhaler at her disposal. She is also asking for pulmonology consult. She is making urine. Creatinine levelling off around 4.4 today Review of Systems Review of Systems: All systems reviewed & are unremarkable except as noted in HPI & below Physical Exam Physical Exam: General exam: Appears comfortable, no acute distress HEENT: Pupils are equal and reactive to light Neck: No JVD, neck is supple trachea is midline Respiratory system: Clear breath sounds bilaterally. Gastrointestinal: Abdomen is soft, non distended, non tender, bowel sounds are present CVS: Regular rate and rhythm. No murmurs, rubs or gallops Musculoskeletal: No joint or muscle tenderness Extremities: Non tender, 1+ edema, peripheral pulses are present Neuro: Oriented, no tremors, no focal neurological deficits Skin: No rashes Results & Data ([facility]) Vital Signs (Past 12 Hours) Vital Signs Temp Pulse Pulse Resp BP BP Pulse Ox 03/17/21 08:00 36.9 C 86 18 101/68 95 03/17/21 04:23 36.7 C 99 H 20 126/79 91 03/17/21 04:16 98 H 18 96 03/17/21 03:24 90 03/16/21 23:44 37.0 C 89 20 103/64 92 Laboratory Results 03/17/21 05:16 (1) Rhabdomyolysis Rhabdomyolysis type: non-traumatic Qualified Code(s): M62.82 - Rhabdomyolysis (2) Acute renal failure Acute renal failure type: unspecified Qualified Code(s): N17.9 - Acute kidney failure, unspecified
[2021-03-17] MEDS: oxyCODONE HCL SOLN 5 MG/5 ML UDC PO PRN (09:35)
[2021-03-17] MEDS: FLUTICASONE FUROATE 100MCG 14 PUFFS/INHALER INH SCH (09:36)
[2021-03-17] MEDS: ASPIRIN 81 MG ECTAB PO SCH (09:36)
[2021-03-17] MEDS: UMECLIDINIUM/VILANTEROL 62.5/25MCG 7 PUFFS/INHALER INH SCH (09:36)
[2021-03-17] MEDS: SENNA 8.6 MG TAB PO SCH (09:36)
[2021-03-17] MEDS: PANTOprazole 40 MG TAB PO SCH ×2 (09:36→21:29)
[2021-03-17] MEDS: METOPROLOL SUCC 25MG EXT REL TAB PO SCH ×2 (09:36→21:28)
[2021-03-17] MEDS: ALBUTEROL HFA 8 GM INHALER INH PRN (13:33)
--- NOTE | 2021-03-17 15:22 | Hospitalist Progress Note ---
Date of Service March 17, 2021 Assessment & Plan (1) Acute renal failure: -Creatinine elevated at 6.06 on admission, has a baseline of 0.6-0.8 as an outpatient. Creatinine increased to 4.4 today -[place] of 29,000 [place] [address] [place] . -Possibly contributed by Crestor however patient has been on it for many years. -Continue with maintenance IV fluids. -Continue monitor daily ins and outs. -Appreciate nephrology input. No indication for emergent dialsysi. -Ultrasound of the kidney did not show right-sided pelvic kidney without any other significant abnormalities. -has been refused IVF due to her advanced lung disease -Continue gentle IV hydration for now -Continue monitor BMP -Continue monitor while for volume overload while on IVF (2) Rhabdomyolysis: CK of 29,000 on admission CPK continue to trend down from 29k--> 21k--> 13K --> 8922 -> 5510-->4446 Continue IV fluid, but pt has been refused it Continue to monitor daily CK levels. Elevated hepatic enzymes Likely secondary to side effect of Crestor Does not seems to be obstructive and ultrasound of the liver was unremarkable. Continue to monitor LFTs. (3) Hypokalemia: K 4.5 Resolved (4) CAD (coronary artery disease): -Follows with Angeline Madsen as an outpatient -Had most recent nuclear stress test echo on 02/21/2021 which showed normal LVEF of 55 to 59%, Moderate MR There is a small/moderate pericardial effusion, with fibrous strands suggesting this is a chronic issue. When looking back at old echo reports, she has had a small/moderate sized effusion for many years and is unchanged. -Continue ASA 81mg daily -Holding Crestor as above, will need to discuss with cardiology regarding changing statin or discontinuing altogether (5) HLD (hyperlipidemia): Continue to hols statin (6) COPD (chronic obstructive pulmonary disease): - History of smoking 25-50 pack years, currently still smoking 1/2 pack daily, started at age 11, denies need for nicotine patch -Uses O2 2L via NC at bedtime and with exertion at baseline -Continue with her usual inhalers and nebulized bronchodilator (Order modify that she can get her Neb treatment QID) -Continue oxygen supplement -Monitor resp status if narcotic and benzo given - Will get CXR today -Pulm consult as per pt request since she said that her breathing has been getting worst (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, stable as per CT of the head and brain -Follows with neurology as an outpatient but has not seen them in some time (8) Neurofibromatosis: -History of such, stable (9) Anxiety: (10) Depression: Pt has been asking for benzo Psych on board recommended hydroxyzine 25mg po, but pt declined to start it Pt might benefit as well from SSRI, but does not want to start it now 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 Will add hydroxyzine prn consider to avoid benzo due to her respiratory status (11) Seizure: -Occurred 1 time many years ago, no further seizure-like events (12) Gastroparesis: -Stable, has been able to tolerate p.o., some mild nausea prior to presentation today improved with Zofran (13) DVT prophylaxis: - teds, scds, ambulatory CODE: Full code Disposition Consider inpatient rehab Admission and Anticipated Discharge Date Admission Date: March 10, 2021 Subjective Pt was seen and examined for follow up of rhabdo Sitting in bed with no acute distress Pt said that because of her COPD/advanced lung disease, any exertion she becomes SOB She continues complaint about getting too much IVF She said that she is very anxious and asking for benzo and tearful about it She wants her rescue inhaler to stay at her baseline, but ok for it to stay in the cabinet in her home She requested to see pulmonology while in the hospital for her COPD She is interested to go to rehab before she feels weak Review of Systems Review of Systems: All systems reviewed & are unremarkable except as noted in Subjective Physical Exam Physical Exam: General: A&Ox3 HENT: NCAT, MMM, EOMI Eyes: PERRLA Neck: Supple, normal range of motion CVS: normal rate and rhythm Resp: b/l good breath sounds Abdomen: Soft, ND/NT, +BS Extremities: No c/c/e Neuro: face symmetric, no gross focal deficits appreciated Skin: warm and dry, no rashes/lesions/errythema MSK: normal ROM, no joint swelling/erythema Results & Data Results & Data ([facility]) Vital Signs (Past 12 Hours) Vital Signs Temp Pulse Pulse Resp BP BP Pulse Ox 03/17/21 11:24 92 H 18 93 03/17/21 08:00 36.9 C 90 86 18 101/68 95 03/17/21 04:23 36.7 C 99 H 20 126/79 91 03/17/21 04:16 98 H 18 96 03/17/21 03:24 90 (1) Acute renal failure Acute renal failure type: unspecified Qualified Code(s): N17.9 - Acute kidney failure, unspecified (2) Rhabdomyolysis Rhabdomyolysis type: non-traumatic Qualified Code(s): M62.82 - Rhabdomyolysis
--- NOTE | 2021-03-17 17:59 | XRay Report ---
XR chest 1V portable CLINICAL HISTORY: Shortness of breath COMPARISON STUDY: Chest radiograph March 15, 2021. FINDINGS: There is no pneumothorax. Small bilateral pleural effusions, left larger than right, are ag ain noted. Left basilar opacity is noted. There is subtle interstitial thickening. Underlying emphyse ma is present. Cardiac size is normal. IMPRESSION: 1. Small bilateral pleural effusions with interstitial thickening suggestive of mild pulmonary edema. 2. Left basilar opacity which may reflect consolidation or atelectasis. Radiographic follow up is rec ommended. ACT 112: Negative or not required by law. Electronically signed by: Shaheed Xiong M.D. 03/17/2021 5:58 PM
[2021-03-17] MEDS: PROMETHAZINE HCL 6.25 MG in SODIUM CHLORIDE 0.9% 50 ML IV PRN (18:14)
[2021-03-17] MEDS: traZODone HCL 50 MG TAB PO SCH (22:17)
[2021-03-18] MEDS: ALBUTEROL HFA 8 GM INHALER INH PRN (03:41)
[2021-03-18] MEDS: guaiFENesin SUGAR FREE 200 MG/10 ML UDC PO SCH ×3 (04:22→19:50)
[2021-03-18] MEDS: LEVOTHYROXINE SODIUM 75 MCG TABLET PO SCH (05:43)
[2021-03-18] MEDS: ALBUT/IPRATROP 3MG/0.5MG NEB 3 ML VIAL INH SCH ×4 (07:01→20:03)
[2021-03-18 07:54] LABS: Albumin Globulin Ratio 0.6 (0.9-2); Albumin Level 1.8 gm/dl (3.4-5.0); BUN Creatinine Ratio 7.1 (10-20); Bilirubin,Total 0.3 mg/dl (0.2-1); Calcium 8.5 mg/dl (8.5-10.1); Creatinine Clr Calc Pharmacy 13.3 ml/min; Est GFR (African American) 11.6; Globulin 3.3 gm/dl (2.5-4.0); Potassium 4.2 mmol/L (3.5-5.1); Total Protein 5.1 gm/dl (6.4-8.2)
[2021-03-18] MEDS: PROMETHAZINE HCL 6.25 MG in SODIUM CHLORIDE 0.9% 50 ML IV PRN ×2 (08:38→22:11)
[2021-03-18] MEDS ORDERED: POTASSIUM CHLORIDE CRTAB 20 MEQ TABCR PO STA (09:16)
--- NOTE | 2021-03-18 09:31 | Progress Notes ---
DATE: 03/18/2021 NEPHROLOGY PROGRESS NOTE SUBJECTIVE: Overnight, IV fluid was stopped because of increasing lower extremity edema. Her urine output is not adequate for her current condition. She made about 900 mL of urine. She is still complaining of some shortness of breath, although she feels slightly better today. OBJECTIVE: VITAL SIGNS: Blood pressure 106/74, pulse rate 96, and 96% on room air, although she has a clearcut pursed lip consistent with emphysema. NECK: Supple. No jugular venous distention. HEENT: Mucous membrane is moist. RESPIRATORY: Decreased breath sounds bilaterally with occasional wheezing. CARDIOVASCULAR: Regular rate and rhythm, no murmur heard. EXTREMITIES: Show 1-2+ edema bilaterally, pitting type. SKIN: No rashes, although skin over her lower extremities seems very stressed and thin. LABORATORY TESTS: Creatinine this morning was 4.59, which is similar to what she has had for the last few days. Her admission creatinine was 6.06. Chest x-ray done yesterday shows bilateral pleural effusion with interstitial thickening suggestive of mild pulmonary edema. ASSESSMENT AND PLAN: A 55-year-old female admitted with acute renal failure secondary to rhabdomyolysis. At this time, rhabdomyolysis is presumed from statin, although could be from hypokalemia and hyperthyroidism also. RECOMMENDATION FOR TODAY: 1. She needs to have more urine output than 900 per day. She has pulmonary edema, shortness of breath and significant lower extremity edema. Given this, I would give her Lasix 80 mg IV now and twice daily. Regardless of the creatinine, we need to make the volume status better to avoid full blown respiratory failure. 2. Daily labs at this point. 3. Correct electrolytes appropriately. I would also give her 20 mEq of potassium to compensate for the IV Lasix.
[2021-03-18] MEDS: UMECLIDINIUM/VILANTEROL 62.5/25MCG 7 PUFFS/INHALER INH SCH (10:22)
[2021-03-18] MEDS: FLUTICASONE FUROATE 100MCG 14 PUFFS/INHALER INH SCH (10:22)
[2021-03-18] MEDS: FUROSEMIDE 80 MG in SYRINGE 0 ML IV SCH ×2 (10:22→16:29)
[2021-03-18] MEDS: SENNA 8.6 MG TAB PO SCH (10:23)
[2021-03-18] MEDS: ASPIRIN 81 MG ECTAB PO SCH (10:23)
[2021-03-18] MEDS: PANTOprazole 40 MG TAB PO SCH ×2 (10:24→22:01)
[2021-03-18] MEDS: METOPROLOL SUCC 25MG EXT REL TAB PO SCH ×2 (10:24→21:56)
--- NOTE | 2021-03-18 13:04 | Hospitalist Progress Note ---
Date of Service March 18, 2021 Assessment & Plan (1) Acute renal failure: -Creatinine elevated at 6.06 on admission, has a baseline of 0.6-0.8 as an outpatient. Creatinine increased to 4.59 today -CK of 29,000 on admission. Today down to 2617 -Possibly contributed by Crestor however patient has been on it for many years. -Continue monitor daily ins and outs. -Appreciate nephrology input. No indication for emergent dialsyis. Started on Lasix 80 mg BID. -Ultrasound of the kidney did not show right-sided pelvic kidney without any other significant abnormalities. -Continue monitor BMP. (2) Rhabdomyolysis: CK of 29,000 on admission CPK continue to trend down from 29k--> 21k--> 13K --> 8922 -> 5510-->4446-->2617 Continue IV fluid, but pt has been refused it Continue to monitor daily CK levels. Elevated hepatic enzymes Likely secondary to side effect of Crestor Does not seems to be obstructive and ultrasound of the liver was unremarkable. Continue to monitor LFTs. (3) Hypokalemia: K 4.2 Resolved (4) CAD (coronary artery disease): -Follows with Angeline Madsen as an outpatient -Had most recent nuclear stress test echo on 02/21/2021 which showed normal LVEF of 55 to 59%, Moderate MR There is a small/moderate pericardial effusion, with fibrous strands suggesting this is a chronic issue. When looking back at old echo reports, she has had a small/moderate sized effusion for many years and is unchanged. -Continue ASA 81mg daily -Holding Crestor as above, will need to discuss with cardiology regarding changing statin or discontinuing altogether (5) HLD (hyperlipidemia): Continue to hols statin (6) COPD (chronic obstructive pulmonary disease): - History of smoking 25-50 pack years, currently still smoking 1/2 pack daily, started at age 11, denies need for nicotine patch -Uses O2 2L via NC at bedtime and with exertion at baseline -Continue with her usual inhalers and nebulized bronchodilator (Order modify that she can get her Neb treatment QID) -Continue oxygen supplement -Monitor resp status if narcotic and benzo given - CXR with Small bilateral pleural effusions with interstitial thickening suggestive of mild pulmonary edema. 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 (11) Seizure: -Occurred 1 time many years ago, no further seizure-like events (12) Gastroparesis: -Stable, has been able to tolerate p.o. (13) DVT prophylaxis: - teds, scds, ambulatory CODE: Full code Disposition Consider inpatient rehab Admission and Anticipated Discharge Date Admission Date: March 10, 2021 Subjective Reports she feels better but she continues to feel weak. States her shortness of breath is improved. Anxiety continues to be her primary issue. Denies any chest pain or abdominal pain. Denies any further nausea or vomiting. Does have persistent cough. Review of Systems Review of Systems: All systems reviewed & are unremarkable except as noted in HPI & below Physical Exam Physical Exam: General: A&Ox3 HENT: NCAT, MMM, EOMI Eyes: PERRLA Neck: Supple, normal range of motion CVS: normal rate and rhythm Resp: b/l good breath sounds Abdomen: Soft, ND/NT, +BS Extremities: No c/c/e Neuro: face symmetric, no gross focal deficits appreciated Skin: warm and dry, no rashes/lesions/errythema MSK: normal ROM, no joint swelling/erythema Results & Data Results & Data ([facility]) Vital Signs (Past 12 Hours) Vital Signs Temp Pulse Pulse Resp BP BP Pulse Ox 03/18/21 12:22 37.3 C 100 H 24 120/81 95 03/18/21 11:15 99 H 16 94 03/18/21 07:38 96 H 03/18/21 07:21 36.9 C 98 H 18 106/74 96 03/18/21 07:04 81 16 98 03/18/21 06:38 103 H 03/18/21 04:00 36.8 C 96 H 18 117/75 97 (1) Acute renal failure Acute renal failure type: unspecified Qualified Code(s): N17.9 - Acute kidney failure, unspecified (2) Rhabdomyolysis Rhabdomyolysis type: non-traumatic Qualified Code(s): M62.82 - Rhabdomyolysis
[2021-03-18] MEDS: oxyCODONE HCL SOLN 5 MG/5 ML UDC PO PRN ×2 (13:07→19:51)
--- NOTE | 2021-03-18 15:35 | Pulmonary Consultation ---
Date of Consultation March 18, 2021 Assessment & Plan (1) Shortness of breath: 55-year-old female with a past medical history of COPD, chronic hypoxemic respiratory failure and anxiety who now has severe volume overload secondary to acute kidney injury from rhabdomyolysis. She is mildly hypoxemic requiring 2 L of nasal cannula. Shortness of breath: Multifactorial related to her longstanding history of COPD and exacerbated by pulmonary edema and volume overload state given her UNRULY from rhabdomyolysis. She is fluid overloaded at this time and receiving IV diuretics as ordered by nephrology. I do not think that she is currently in a COPD exacerbation. I suspect her shortness of breath will improve with diuresis. She is currently 18 L positive. Anxiolysis per primary team. Psychiatry is also involved and has seen the patient. COPD: Continue her current inhaler regimen. Follow-up with her outpatient is project manager. Discharge her home on Trelegy which is her home inhaler upon discharge. No other specific interventions from pulmonary at this time. Thank you for the consultation. We are available on an as-needed basis. Please do not hesitate to call with questions. (2) Acute respiratory failure with hypoxia: (3) COPD (chronic obstructive pulmonary disease): (4) Volume overload: (5) Acute renal failure: Acute renal failure type: unspecified Qualified Code(s): N17.9 - Acute kidney failure, unspecified History of Present Illness Reason for Consultation: Acute hypoxic respiratory failure Attending Physician: Jonatan Olvera MD History of Present Illness 55-year-old female with a past medical history of coronary artery disease, hyperlipidemia, COPD dependent on chronic oxygen, neurofibromatosis and supraventricular tachycardia who presents to the hospital due to weakness and dehydration. She was found to be in rhabdomyolysis thought to be secondary to statin induced myopathy. She has had trouble with shortness of breath during her hospitalization and is clearly volume overloaded. She notes that she has been progressively feeling more short of breath and her legs have been progressively more edematous since the beginning of her hospitalization. Her rhabdomyolysis has been improving and her CPK has been trending down. Nephrology is following the patient and she was given 80 mg of IV Lasix today. She notes that she has been very emotional and anxious lately. She was requesting alprazolam earlier during the hospitalization and was becoming frustrated that she was not getting the medications that she wanted including albuterol inhaler available in her room. Psychiatry was consulted and hydroxyzine was recommended to be used as needed for anxiety. She has an extensive smoking history. She smoked for 42 years starting at the age of 11. She smoked roughly 1 to 1.5 packs/day. She quit approximately 1 year ago. She is currently on disability. 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 She does endorse a mildly productive cough. No hemoptysis. No chest pain presently. No fevers or chills. Allergies Allergy/AdvReac Type Severity Reaction Status Date / Time adhesive Allergy Unknown BANDAIDS Verified 03/10/21 15:01 SKIN ABRASION Sulfa (Sulfonamide Allergy Unknown HIVES Verified 03/10/21 15:01 Antibiotics) tramadol Allergy Unknown . Verified 03/10/21 15:01 meperidine AdvReac Unknown MOOD SWINGS Verified 03/10/21 15:01 Home Medications Medication Instructions Recorded Confirmed Type albuterol sulfate [Ventolin HFA] 2 puff INHALATION Q4H PRN #0 12/25/08 03/10/21 History omeprazole magnesium [Prilosec OTC] 20 mg PO BID #0 cap 09/17/14 03/10/21 History aspirin 81 mg PO QAM #0 12/12/14 03/10/21 History ipratropium-albuterol 3 ml INHALATION QID PRN #0 inh 12/12/14 03/10/21 History levothyroxine [Synthroid] 75 mcg PO QAM #0 12/12/14 03/10/21 History tizanidine 4 mg PO BID PRN #0 12/12/14 03/10/21 History Trelegy Ellipta 1 inh INHALATION QAM 08/23/19 03/10/21 History ondansetron HCl [Zofran] 4 mg PO QAM PRN 08/23/19 03/10/21 History trazodone 25 mg PO HS 11/17/19 03/10/21 History trazodone 100 mg PO HS 11/17/19 03/10/21 History acetaminophen [Tylenol Extra 500 mg PO Q6H PRN 11/22/19 03/10/21 History Strength] ibuprofen 600 mg PO Q6H PRN 11/22/19 03/10/21 History prednisone 10 mg PO UD PRN 11/22/19 03/10/21 History metoprolol succinate 37.5 mg PO UD 03/10/21 03/10/21 History pregabalin 75 mg PO BID 03/10/21 03/10/21 History rosuvastatin 40 mg PO DAILY 03/10/21 03/10/21 History Patient History Medical History Acute exacerbation of chronic obstructive pulmonary disease (COPD) SEVERE EMPHYSEMA CAD (coronary artery disease) Cavernous hemangioma of brain Gastroparesis Hx of bronchitis Hypokalemia CAN NOT TOLERATE PO POTASSIUM PILLS DUE TO GASTROPARESIS Myocardial infarction 2010 - CHEST PAIN -[facility] ER AND HAD HEART CATH WITH ONE STENT (BARE METAL) FOLLOW WITH [facility] Neurofibromatosis Pneumothorax AGE 24 - SURGERY TO REPAIR THE LEFT SIDE AND CHEMICAL TREATMENT ON THE RIGHT SIDE AT [facility] 2014 ONLY HAD ONE -- ADMITTED TO [facility] --- METABOLIC RELATED ---- NO MEDICATION Surgical History History of hernia repair UMBILICAL Hx of cardiac cath 2010 HEART CATH WITH ONE STENT Hx of section X2 Hx of colonoscopy Hx of vaginal surgery 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 Family History Father Lung disease Severe emphysema, pneumothorax Social History Smoking Status: Current every day smoker Age Started Using Tobacco: 11; Age Quit Using Tobacco: 53; packs per day: 1; Years Smoked: 42; Cigarettes Per Day: 6; Number of Years Since Quit: 1; Second Hand Exposure: No; Do You Dip or Chew Tobacco: No; Tobacco Cessation Education Requested by Patient: No Hx Alcohol Use: Yes Alcohol type: hard liquor Hx Substance Use: Yes Last Used Substance: Days (ago) Preferred Language: Dutch Communication Ability: Effective Brake Rider Required: No Beliefs That Will Affect Care: Hoahaoism marital status: Current Living Situation: Spouse and Family Other Information That Helps Us Care for You: No Feels Safe at Home: Yes Safety Concerns: Feels Safe At This Time Assistive Devices: Oxygen - at Night, Oxygen - Continuous and Walker Review of Systems Review of Systems: All systems reviewed & are unremarkable except as noted in HPI & below Physical Exam Constitutional: Frail and thin appearing female no apparent distress. Nasal cannula in place. Eyes: PERRL, conjunctivae normal, anicteric sclerae Respiratory: Bilateral crackles noted with diminished lung sounds at the bases. Cardiovascular: Rate/Rhythm: regular rate and regular rhythm Heart Sounds: normal S1 and normal S2 Extremities: + edema Gastrointestinal (Abdomen): normal bowel sounds, soft, nontender, no hepatosplenomegaly Musculoskeletal: no cyanosis or clubbing, extremities motor strength 5/5 Skin: no rashes, warm and dry Neurologic: PERRL, EOMI, accommodation nl, no face palsy, no dysarthria Psychiatric: A+Ox3, euthymic affect Results & Data Results & Data ([facility]) Vital Signs (Past 12 Hours) Vital Signs Temp Pulse Pulse Pulse Resp BP BP 03/18/21 15:13 99.0 F 91 H 18 97/65 L 03/18/21 15:07 97 H 18 03/18/21 12:22 99.1 F 100 H 24 120/81 03/18/21 11:15 99 H 16 03/18/21 07:38 96 H 03/18/21 07:21 98.4 F 98 H 18 106/74 03/18/21 07:04 81 16 03/18/21 06:38 103 H 03/18/21 04:00 98.2 F 96 H 18 117/75 Pulse Ox 03/18/21 15:13 95 03/18/21 15:07 94 03/18/21 12:22 95 03/18/21 11:15 94 03/18/21 07:38 03/18/21 07:21 96 03/18/21 07:04 98 03/18/21 06:38 03/18/21 04:00 97 vital signs, labs and imaging reviewed. No significant leukocytosis seen. Chest x-ray completed 03/17/2021 reviewed which demonstrated small bilateral ef fusions and interstitial thickening consistent with pulmonary edema. Left basilar opacity noted likely atelectasis. PG Care Time/CCT Total # of Minutes Spent Total Time Spent with Patient: Total time spent is greater than 50% in coordination of care (as documented) at patient's floor/unit and/or counseling patient: Coding Level of Care Code 55839 Inpt Consult Level 4 Diagnoses Shortness of breath R06.02 Acute respiratory failure with hypoxia J96.01 COPD (chronic obstructive pulmonary disease) J44.9 Volume overload E87.70 Acute renal failure N17.9 Acute renal failure type: unspecified
[2021-03-18] MEDS: traZODone HCL 50 MG TAB PO SCH (21:58)
[2021-03-19] MEDS: guaiFENesin SUGAR FREE 200 MG/10 ML UDC PO SCH ×3 (03:41→21:54)
[2021-03-19] MEDS: LEVOTHYROXINE SODIUM 75 MCG TABLET PO SCH (06:17)
[2021-03-19] MEDS: ALBUT/IPRATROP 3MG/0.5MG NEB 3 ML VIAL INH SCH ×4 (07:08→20:01)
[2021-03-19] MEDS: ONDANSETRON INJ 2 MG/ML 2 ML VIAL IV PRN (08:15)
[2021-03-19] MEDS: METOPROLOL SUCC 25MG EXT REL TAB PO SCH ×2 (08:17→21:57)
[2021-03-19] MEDS: PANTOprazole 40 MG TAB PO SCH ×2 (08:17→21:55)
[2021-03-19] MEDS: ASPIRIN 81 MG ECTAB PO SCH (08:18)
[2021-03-19] MEDS: FLUTICASONE FUROATE 100MCG 14 PUFFS/INHALER INH SCH (08:19)
[2021-03-19] MEDS: FUROSEMIDE 80 MG in SYRINGE 0 ML IV SCH ×2 (08:19→17:07)
[2021-03-19] MEDS: SENNA 8.6 MG TAB PO SCH (08:19)
[2021-03-19] MEDS: UMECLIDINIUM/VILANTEROL 62.5/25MCG 7 PUFFS/INHALER INH SCH (09:10)
[2021-03-19 09:13] LABS: Albumin Globulin Ratio 0.6 (0.9-2); Albumin Level 2.1 gm/dl (3.4-5.0); BUN Creatinine Ratio 6.3 (10-20); Bilirubin,Total 0.5 mg/dl (0.2-1); Calcium 8.6 mg/dl (8.5-10.1); Creatinine Clr Calc Pharmacy 12.8 ml/min; Est GFR (Non-African American) 9.5; Globulin 3.5 gm/dl (2.5-4.0); Potassium 3.7 mmol/L (3.5-5.1); Total Protein 5.6 gm/dl (6.4-8.2)
--- NOTE | 2021-03-19 11:41 | Hospitalist Progress Note ---
Date of Service March 19, 2021 Assessment & Plan (1) Acute renal failure: -Creatinine elevated at 6.06 on admission, has a baseline of 0.6-0.8 as an outpatient. Creatinine increased to 4.78 today -CK of 29,000 on admission. Today down to 2124 -Possibly contributed by Crestor however patient has been on it for many years. -Continue monitor daily ins and outs. -Appreciate nephrology input. No indication for emergent dialsyis. Started on Lasix 80 mg BID. -Ultrasound of the kidney did not show right-sided pelvic kidney without any other significant abnormalities. -Continue monitor BMP. (2) Rhabdomyolysis: CK of 29,000 on admission CPK continue to trend down from 29k--> 21k--> 13K --> 8922 -> 5510-->4446-->2617--->2125 Continue IV fluid, but pt has been refused it Continue to monitor daily CK levels. Elevated hepatic enzymes Likely secondary to side effect of Crestor Does not seems to be obstructive and ultrasound of the liver was unremarkable. Continue to monitor LFTs. (3) Hypokalemia: K 3.7 Resolved (4) CAD (coronary artery disease): -Follows with Angeline Madsen as an outpatient -Had most recent nuclear stress test echo on 02/21/2021 which showed normal LVEF of 55 to 59%, Moderate MR There is a small/moderate pericardial effusion, with fibrous strands suggesting this is a chronic issue. When looking back at old echo reports, she has had a small/moderate sized effusion for many years and is unchanged. -Continue ASA 81mg daily -Holding Crestor as above, will need to discuss with cardiology regarding changing statin or discontinuing altogether (5) HLD (hyperlipidemia): Continue to hols statin (6) COPD (chronic obstructive pulmonary disease): - History of smoking 25-50 pack years, currently still smoking 1/2 pack daily, started at age 11, denies need for nicotine patch -Uses O2 2L via NC at bedtime and with exertion at baseline -Continue with her usual inhalers and nebulized bronchodilator (Order modify that she can get her Neb treatment QID) -Continue oxygen supplement -Monitor resp status if narcotic and benzo given - CXR with Small bilateral pleural effusions with interstitial thickening suggestive of mild pulmonary edema. -Appreciate pulmonary medicine input. Follow-up as an outpatient. (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, stable as per CT of the head and brain -Follows with neurology as an outpatient but has not seen them in some time (8) Neurofibromatosis: -History of such, stable (9) Anxiety: (10) Depression: Pt has been asking for benzo Psych on board recommended hydroxyzine 25mg po, but pt declined to start it Pt might benefit as well from SSRI, but does not want to start it now Will avoid Benzo due to respiratory/SHROUDMAN depression and opioid and marijuana used Will add hydroxyzine prn. (11) Seizure: -Occurred 1 time many years ago, no further seizure-like events (12) Gastroparesis: -Stable, has been able to tolerate p.o. (13) DVT prophylaxis: - teds, scds, ambulatory CODE: Full code Disposition Consider inpatient rehab Admission and Anticipated Discharge Date Admission Date: March 10, 2021 Subjective Reports she feels better today. Breathing is much better. Continues to have nonproductive cough. Review of systems negative. Review of Systems Review of Systems: All systems reviewed & are unremarkable except as noted in HPI & below Physical Exam Physical Exam: General: A&Ox3 HENT: NCAT, MMM, EOMI Eyes: PERRLA Neck: Supple, normal range of motion CVS: normal rate and rhythm Resp: b/l good breath sounds Abdomen: Soft, ND/NT, +BS Extremities: No c/c/e Neuro: face symmetric, no gross focal deficits appreciated Skin: warm and dry, no rashes/lesions/errythema MSK: normal ROM, no joint swelling/erythema Results & Data Results & Data ([facility]) Vital Signs (Past 12 Hours) Vital Signs Temp Pulse Pulse Pulse Resp BP BP 03/19/21 11:34 37.0 C 93 H 18 91/57 L 03/19/21 10:48 79 20 03/19/21 09:42 115 H 03/19/21 08:11 37.1 C 91 H 19 97/67 L 03/19/21 07:09 87 20 03/19/21 04:07 36.9 C 91 H 18 83/54 L 03/19/21 00:31 36.8 C 89 18 81/52 L 03/19/21 00:17 87 Pulse Ox 03/19/21 11:34 93 03/19/21 10:48 94 03/19/21 09:42 03/19/21 08:11 95 03/19/21 07:09 92 03/19/21 04:07 94 03/19/21 00:31 95 03/19/21 00:17 (1) Acute renal failure Acute renal failure type: unspecified Qualified Code(s): N17.9 - Acute kidney failure, unspecified (2) Rhabdomyolysis Rhabdomyolysis type: non-traumatic Qualified Code(s): M62.82 - Rhabdomyolysis
--- NOTE | 2021-03-19 11:45 | Nephrology Progress Note ---
Date of Service March 19, 2021 Assessment & Plan Admission and Anticipated Discharge Date Admission Date: March 10, 2021 Subjective NEPHROLOGY PROGRESS NOTE SUBJECTIVE: Overnight, iv lasix and made about 4 litre urine. Still SOB but better OBJECTIVE: NECK: Supple. No jugular venous distention. HEENT: Mucous membrane is moist. RESPIRATORY: Decreased breath sounds bilaterally with occasional wheezing. CARDIOVASCULAR: Regular rate and rhythm, no murmur heard. EXTREMITIES: Show 1-2+ edema bilaterally, pitting type. SKIN: No rashes, although skin over her lower extremities seems very stressed and thin. LABORATORY TESTS: Creatinine this morning was 4.7 which is slightly higher. Her admission creatinine was 6.06. Chest x-ray done yesterday shows bilateral pleural effusion with interstitial thickening suggestive of mild pulmonary edema. ASSESSMENT AND PLAN: A 55-year-old female admitted with acute renal failure secondary to rhabdomyolysis. At this time, rhabdomyolysis is presumed from statin, although could be from hypokalemia and hyperthyroidism also. RECOMMENDATION FOR TODAY: 1. Continue iv lasix 80 iv bid. She has pulmonary edema, shortness of breath and significant lower extremity edema. Regardless of the creatinine, we need to make the volume status better to avoid full blown respiratory failure. No need of dialysis today 2. Daily labs at this point. 3. Correct electrolytes appropriately. Results & Data ([facility]) Vital Signs (Past 12 Hours) Vital Signs Temp Pulse Pulse Pulse Resp BP BP 03/19/21 11:34 37.0 C 93 H 18 91/57 L 03/19/21 10:48 79 20 03/19/21 09:42 115 H 03/19/21 08:11 37.1 C 91 H 19 97/67 L 03/19/21 07:09 87 20 03/19/21 04:07 36.9 C 91 H 18 83/54 L 03/19/21 00:31 36.8 C 89 18 81/52 L 03/19/21 00:17 87 Pulse Ox 03/19/21 11:34 93 03/19/21 10:48 94 03/19/21 09:42 03/19/21 08:11 95 03/19/21 07:09 92 03/19/21 04:07 94 03/19/21 00:31 95 03/19/21 00:17
[2021-03-19] MEDS: POTASSIUM CHLORIDE CRTAB 20 MEQ TABCR PO SCH ×2 (12:56→21:59)
--- NOTE | 2021-03-19 14:10 | Electrocardiogram Report ---
Test Reason : Blood Pressure : / mmHG Vent. Rate : 093 BPM Atrial Rate : 093 BPM P-R Int : 130 ms QRS Dur : 096 ms QT Int : 368 ms P-R-T Axes : 078 074 207 degrees QTc Int : 457 ms Normal sinus rhythm with sinus arrhythmia T wave abnormality, consider anterolateral ischemia Abnormal ECG When compared with ECG of 10-MAR-2021 19:33, Premature ventricular complexes are no longer Present ST no longer depressed in Anterior leads Nonspecific T wave abnormality now evident in Inferior leads T wave inversion more evident in Anterolateral leads Confirmed by Berlin Rod ([id number]) on 03/19/2021 2:10:08 PM Referred By: REFERRED SELF Confirmed By:Berlin Rod
[2021-03-19] MEDS: LORazepam 0.5 MG TAB PO PRN (17:06)
[2021-03-19] MEDS: oxyCODONE HCL SOLN 5 MG/5 ML UDC PO PRN (20:14)
[2021-03-19] MEDS: traZODone HCL 50 MG TAB PO SCH (22:05)
[2021-03-20] MEDS: guaiFENesin SUGAR FREE 200 MG/10 ML UDC PO SCH ×3 (04:12→21:38)
[2021-03-20] MEDS: LEVOTHYROXINE SODIUM 75 MCG TABLET PO SCH (04:17)
[2021-03-20] MEDS: ALBUT/IPRATROP 3MG/0.5MG NEB 3 ML VIAL INH SCH ×4 (07:22→19:16)
[2021-03-20] MEDS: ASPIRIN 81 MG ECTAB PO SCH (09:00)
[2021-03-20] MEDS: POTASSIUM CHLORIDE CRTAB 20 MEQ TABCR PO SCH ×2 (09:21→21:39)
[2021-03-20] MEDS: SENNA 8.6 MG TAB PO SCH (09:21)
[2021-03-20] MEDS: PANTOprazole 40 MG TAB PO SCH ×2 (09:22→21:39)
[2021-03-20] MEDS: METOPROLOL SUCC 25MG EXT REL TAB PO SCH ×2 (09:22→21:37)
[2021-03-20] MEDS: UMECLIDINIUM/VILANTEROL 62.5/25MCG 7 PUFFS/INHALER INH SCH (09:23)
[2021-03-20] MEDS: FLUTICASONE FUROATE 100MCG 14 PUFFS/INHALER INH SCH (09:23)
--- NOTE | 2021-03-20 09:33 | Nephrology Progress Note ---
Date of Service March 20, 2021 Assessment & Plan Admission and Anticipated Discharge Date Admission Date: March 10, 2021 Subjective NEPHROLOGY PROGRESS NOTE SUBJECTIVE: Overnight, iv lasix and made about 4.8 litre urine. Still SOB but better. BP low. OBJECTIVE: NECK: Supple. No jugular venous distention. HEENT: Mucous membrane is moist. RESPIRATORY: Decreased breath sounds bilaterally with occasional wheezing. CARDIOVASCULAR: Regular rate and rhythm, no murmur heard. EXTREMITIES: Show 1-2+ edema bilaterally, pitting type. SKIN: No rashes, although skin over her lower extremities seems very stressed and thin. LABORATORY TESTS: Creatinine this morning was 4.7 which is slightly higher. Her admission creatinine was 6.06. Chest x-ray done yesterday shows bilateral pleural effusion with interstitial thickening suggestive of mild pulmonary edema. ASSESSMENT AND PLAN: A 55-year-old female admitted with acute renal failure secondary to rhabdomyolysis. At this time, rhabdomyolysis is presumed from statin, although could be from hypokalemia and hyperthyroidism also. RECOMMENDATION FOR TODAY: 1. Stop iv lasix given low BP. She has pulmonary edema, shortness of breath and significant lower extremity edema. Regardless of the creatinine, we need to make the volume status better to avoid full blown respiratory failure. No need of dialysis today 2. Daily labs at this point. pending today 3. Correct electrolytes appropriately. 4 Change to lasix 80 po bid. 5 Also use midodrine 5 tid po for raising BP. Not senior living though. Results & Data ([facility]) Vital Signs (Past 12 Hours) Vital Signs Temp Pulse Pulse Pulse Resp BP Pulse Ox 03/20/21 08:14 87/58 L 03/20/21 07:34 93 H 03/20/21 07:23 82 19 98 03/20/21 07:22 36.8 C 96 H 18 80/56 L 96 03/20/21 04:15 105 H 18 90/56 L 03/20/21 03:00 36.9 C 81 18 72/54 L 95 03/20/21 01:40 93 H 03/19/21 23:00 36.9 C 76 20 92/63 L 94
[2021-03-20] MEDS: FUROSEMIDE 80 MG in SYRINGE 0 ML IV SCH (10:03)
[2021-03-20] MEDS: ONDANSETRON INJ 2 MG/ML 2 ML VIAL IV PRN ×2 (11:23→21:55)
[2021-03-20] MEDS: MIDODRINE HCL 2.5 MG TAB PO SCH ×2 (13:17→18:18)
[2021-03-20] MEDS: LORazepam 0.5 MG TAB PO PRN (13:20)
--- NOTE | 2021-03-20 15:22 | Hospitalist Progress Note ---
Date of Service March 20, 2021 Assessment & Plan (1) Acute renal failure: Acute renal failure on CKD stage III -Possible secondary to rhabdomyolysis, Crestor discontinued -Creatinine elevated at 6.06 on admission, has a baseline of 0.6-0.8 as an outpatient. -CK of 29,000 on admission. Gradually improving -Possibly contributed by Crestor however patient has been on it for many years. -s. -Appreciate nephrology input. No indication for emergent dialsyis. Patient was started on IV Lasix, will hold today's dose secondary to hypotension -Ultrasound of the kidney did not show right-sided pelvic kidney without any other significant abnormalities. -Continue monitor BMP. Hypotension SBP remains 90s80s Order to hold Lasix for today, Started on midodrine by nephrology, continue to monitor (2) Rhabdomyolysis: CK of 29,000 on admission CPK continue to trend down Statin is discontinued, will be added to patient's drug allergies/adverse reaction list Continue to monitor daily CK levels. Elevated hepatic enzymes Secondary to rhabdomyolysis ultrasound of the liver was unremarkable. Does not have any GI symptoms (3) Hypokalemia: (4) CAD (coronary artery disease): -Follows with Angeline Madsen as an outpatient -Had most recent nuclear stress test echo on 02/21/2021 which showed normal LVEF of 55 to 59%, Moderate MR There is a small/moderate pericardial effusion, with fibrous strands suggesting this is a chronic issue. When looking back at old echo reports, she has had a small/moderate sized effusion for many years and is unchanged. -Continue ASA 81mg daily -Crestor discontinued for rhabdomyolysis (5) HLD (hyperlipidemia): Crestor discontinued for rhabdomyolysis (6) COPD (chronic obstructive pulmonary disease): - History of smoking 25-50 pack years, currently still smoking 1/2 pack daily, started at age 11, denies need for nicotine patch -Uses O2 2L via NC at bedtime and with exertion at baseline -Continue with her usual inhalers and nebulized bronchodilator (Order modify that she can get her Neb treatment QID) -Continue oxygen supplement -Does not have any episode of exacerbation - -Appreciate pulmonary medicine input. Follow-up as an outpatient. 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 (13) DVT prophylaxis: - teds, scds, ambulatory CODE: Full code Disposition Order for PT OT Consider inpatient rehab Admission and Anticipated Discharge Date Admission Date: March 10, 2021 Subjective Patient states that she is feeling better her cough and shortness of breath improved Worried that she did not had a repeat chest x-ray for last couple of days No complaint of abdominal pain or discomfort, no cough no fever or chills, Remains persistently hypotensive, patient denies of any dizzy spell or lightheadedness Review of Systems Review of Systems: All systems reviewed & are unremarkable except as noted in Subjective Physical Exam Physical Exam: Physical exam: General: No acute distress, alert awake oriented x3 HEENT: PERRLA, EOMI, Heart: Regular S1-S2, no carotid bruit, no JVD, bilaterally +1 pitting edema edema Lungs: Clear to auscultate, no wheeze or rales Abdomen: Soft nontender, no organomegaly Extremity: +12 pitting edema bilaterally Neuro: No focal neurological deficit normal speech, normal visual field, Motor strength : normal both upper and lower extremity, sensation intact Psych: Alert awake oriented x3, normal affect Results & Data Results & Data ([facility]) Vital Signs (Past 12 Hours) Vital Signs Temp Pulse Pulse Pulse Resp BP Pulse Ox 03/20/21 11:14 37.0 C 90 18 82/49 L 92 03/20/21 11:09 87 18 94 03/20/21 08:14 87/58 L 03/20/21 07:34 93 H 03/20/21 07:23 82 19 98 03/20/21 07:22 36.8 C 96 H 18 80/56 L 96 03/20/21 04:15 105 H 18 90/56 L (1) Acute renal failure Acute renal failure type: unspecified Qualified Code(s): N17.9 - Acute kidney failure, unspecified (2) Rhabdomyolysis Rhabdomyolysis type: non-traumatic Qualified Code(s): M62.82 - Rhabdomyolysis
[2021-03-20] MEDS ORDERED: FUROSEMIDE 80 MG TAB PO SCH (17:00)
[2021-03-20] MEDS: oxyCODONE HCL SOLN 5 MG/5 ML UDC PO PRN (18:18)
[2021-03-20] MEDS: traZODone HCL 50 MG TAB PO SCH (21:46)
[2021-03-21] MEDS: LEVOTHYROXINE SODIUM 75 MCG TABLET PO SCH (06:03)
[2021-03-21] MEDS: guaiFENesin SUGAR FREE 200 MG/10 ML UDC PO SCH ×3 (06:04→19:39)
[2021-03-21 06:17] LABS: Basophils # (auto) 0.03 K/uL (0-0.2); Basophils % (auto) 0.4 %; Eosinophils # (auto) 0.39 K/uL (0-0.5); Eosinophils % (auto) 5.1 %; Hematocrit (blood only) 27.8 % (37-47); Hemoglobin 9.3 g/dL (12.0-16.0); Immature Granulocytes # (auto) 0.01 K/uL (0.00-0.02); Immature Granulocytes % (auto) 0.1 %; Lymphocytes # (auto) 1.44 K/uL (1.2-3.4); Lymphocytes % (auto) 18.9 %; Mean Corpuscular Hemoglobin 31.4 pg (25-34); Mean Corpuscular Hgb Conc 33.5 g/dL (32-36); Mean Corpuscular Volume 93.9 fL (80-100); Mean Platelet Volume 9.6 fL (7.4-10.4); Monocytes # (auto) 0.59 K/uL (0.11-0.59); Monocytes % (auto) 7.7 %; Neutrophils # (auto) 5.16 K/uL (1.4-6.5); Neutrophils % (auto) 67.8 %; Platelet Count 268 K/uL (130-400); RDW Coefficient of Variation 14.7 % (11.5-14.5); RDW Standard Deviation 50.3 fL (36.4-46.3); Red Blood Count 2.96 M/uL (4.2-5.4); White Blood Count 7.62 K/uL (4.8-10.8)
[2021-03-21] MEDS: ONDANSETRON INJ 2 MG/ML 2 ML VIAL IV PRN (06:34)
[2021-03-21 07:03] LABS: BUN Creatinine Ratio 5.1 (10-20); Calcium 7.7 mg/dl (8.5-10.1); Creatinine Clr Calc Pharmacy 11.8 ml/min; Est GFR (Non-African American) 8.6; Potassium 3.4 mmol/L (3.5-5.1)
[2021-03-21] MEDS: ALBUT/IPRATROP 3MG/0.5MG NEB 3 ML VIAL INH SCH ×4 (07:06→19:06)
[2021-03-21] MEDS: FLUTICASONE FUROATE 100MCG 14 PUFFS/INHALER INH SCH (08:59)
[2021-03-21] MEDS: UMECLIDINIUM/VILANTEROL 62.5/25MCG 7 PUFFS/INHALER INH SCH (08:59)
[2021-03-21] MEDS: MIDODRINE HCL 2.5 MG TAB PO SCH (09:00)
[2021-03-21] MEDS: PANTOprazole 40 MG TAB PO SCH ×2 (09:00→22:24)
[2021-03-21] MEDS: ASPIRIN 81 MG ECTAB PO SCH (09:00)
[2021-03-21] MEDS: POTASSIUM CHLORIDE CRTAB 20 MEQ TABCR PO SCH (09:01)
[2021-03-21] MEDS: SENNA 8.6 MG TAB PO SCH (09:02)
[2021-03-21] MEDS: METOPROLOL SUCC 25MG EXT REL TAB PO SCH ×2 (09:02→19:39)
--- NOTE | 2021-03-21 10:06 | Nephrology Progress Note ---
Date of Service March 21, 2021 Assessment & Plan Admission and Anticipated Discharge Date Admission Date: March 10, 2021 Subjective NEPHROLOGY PROGRESS NOTE SUBJECTIVE: Overnight, iv lasix and made about 2.1 litre urine. Still SOB but better. BP low. OBJECTIVE: NECK: Supple. No jugular venous distention. HEENT: Mucous membrane is moist. RESPIRATORY: Decreased breath sounds bilaterally with occasional wheezing. CARDIOVASCULAR: Regular rate and rhythm, no murmur heard. EXTREMITIES: Show 1+ edema bilaterally, pitting type. SKIN: No rashes, although skin over her lower extremities seems very stressed and thin. LABORATORY TESTS: Creatinine this morning was slightly higher. Her admission creatinine was 6.06. Chest x-ray done yesterday shows bilateral pleural effusion with interstitial thickening suggestive of mild pulmonary edema. ASSESSMENT AND PLAN: A 55-year-old female admitted with acute renal failure secondary to rhabdomyolysis. At this time, rhabdomyolysis is presumed from statin, although could be from hypokalemia and hyperthyroidism also. RECOMMENDATION FOR TODAY: 1. Stop lasix given low BP. No dialysis today 2. Daily labs at this point. 3. Correct electrolytes appropriately. 4 raise midodrine 10 tid po for raising BP. Not intermediate though. 5 Look for other causes of Low BP also Results & Data ([facility]) Vital Signs (Past 12 Hours) Vital Signs Temp Pulse Pulse Resp BP Pulse Ox 03/21/21 07:35 101 H 03/21/21 07:20 37.3 C 107 H 18 86/60 L 94 03/21/21 07:06 94 H 18 94 03/21/21 03:33 36.9 C 96 H 22 85/55 L 92 03/20/21 23:11 36.9 C 94 H 20 89/63 L 94 03/20/21 22:20 87
[2021-03-21] MEDS: hydrOXYzine HCl 25 MG TAB PO PRN (10:55)
[2021-03-21] MEDS: MIDODRINE HCL 10 MG TAB PO SCH ×2 (13:10→16:58)
--- NOTE | 2021-03-21 14:14 | Communication Note ---
Date of Service: March 21, 2021 pt is very upset and angry , that nothing has been done for her in the last 8 days she is still feeling very sick , her kidney functions are not getting better she has end stage lung disease , no one paid attention to it she has very serious anxiety issues , upset instead of talking to her and addressing her concern Psych was consulted no one took care of her or bathed her since she is been here she is very dissatisfied with care at [facility] , want to be transferred to [place] pt is counselled , transferred to higher level of care is required or approved in cases where care / speciality is not available in current hospital she has been very slowly improving , [place] [facility] most likely refuse to accept the pt for transfer , as no different care will be provided there D/w Assistant Manager Bilingual : given her acute renal failure due to Rhabdomyolysis , it will take time for renal function to be improved her volume status currently stable was treated with Lasix initially but later had to be kept on hold due to low BP pt complains of not getting boost , nutirtionist consulted upset that no lung specialist has seen her when she has end stage emphysema pt was seen by Safety Advisor on 03/18/21, she is not happy with that ," every one just spends few minutes , when she needs more care given complexitiy of her medical condition . will ask Pulm to have a visit to pt again ordered for Chest Xray Hypotension improved , SBP in 99 with out any dizzy spell or lightheadness Midodrine dose adjusted will call [place] transfer center later today with request for transfer Natalie Royal MD
--- NOTE | 2021-03-21 14:20 | XRay Report ---
XR chest 1V portable HISTORY: 55 years-old Female CHF acute shortness of breath with congestive heart failure COMPARISON: Chest radiograph 03/17/2021, CTA chest 11/22/2019 TECHNIQUE: Portable AP view of the chest FINDINGS: Cardiac silhouette is normal in size. Severe emphysema with chronic interstitial coarsening. Postoper ative changes of the left lung apex. Chronic blunting of the costophrenic angles. There is improved a eration with mild persistent ill-defined opacities of the left lung base. Pulmonary vascular congesti on. IMPRESSION: 1. Pulmonary vascular congestion without overt pulmonary edema. 2. Severe emphysema with chronic interstitial coarsening. 3. Improved aeration of the left lung base with mild persistent opacities suggestive of atelectasis v ersus pneumonitis. ACT 112: Negative or not required by law. The above report was generated using voice recognition software. It may contain grammatical, syntax o r spelling errors. Electronically signed by: Po Santos M.D. 03/21/2021 2:19 PM
--- NOTE | 2021-03-21 15:35 | Hospitalist Progress Note ---
Date of Service March 21, 2021 Assessment & Plan (1) Acute renal failure: Acute renal failure on CKD stage III -Possible secondary to rhabdomyolysis/statin induced: Crestor discontinued -Creatinine elevated at 6.06 on admission, has a baseline of 0.6-0.8 as an outpatient. -CK of 29,000 on admission. Gradually improving -Possibly contributed by Crestor however patient has been on it for many years. -Appreciate nephrology input. Mariana kept on hold secondary to hypotension Discussed at length with nephrology, given acute renal failure secondary to rhabdomyolysis -recovery is going to remain slow given underlying comorbidities So far patient had noted need dialysis wants to hold off as patient is still able to make urine -. -Continue monitor BMP. Hypotension SBP remains 90s80s Continue to hold Lasix Started on midodrine by nephrology dose increased to 10 mg 3 times daily (2) Rhabdomyolysis: CK of 29,000 on admission CPK continue to trend down 600 today Statin is discontinued, will be added to patient's drug allergies/adverse reaction list Avoid IV hydration for concern of volume overload Elevated hepatic enzymes Secondary to rhabdomyolysis ultrasound of the liver was unremarkable. Does not have any GI symptoms (3) Hypokalemia: K 3.7 Resolved (4) CAD (coronary artery disease): -Follows with Angeline Madsen as an outpatient -Had most recent nuclear stress test echo on 02/21/2021 which showed normal LVEF of 55 to 59%, Moderate MR -Continue ASA 81mg daily -Crestor discontinued for rhabdomyolysis (5) HLD (hyperlipidemia): Crestor discontinued for rhabdomyolysis (6) COPD (chronic obstructive pulmonary disease): - History of smoking 25-50 pack years, currently still smoking 1/2 pack daily, started at age 11, denies need for nicotine patch -Uses O2 2L via NC at bedtime and with exertion at baseline -Continue with her usual inhalers and nebulized bronchodilator (Order modify that she can get her Neb treatment QID) -Continue oxygen supplement -Does not have any episode of exacerbation -Chest x-ray shows improvement of pulmonary congestion -Appreciate pulmonary medicine input. Follow-up as an outpatient. (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, stable as per CT of the head and brain -Follows with neurology as an outpatient but has not seen them in some time (8) Neurofibromatosis: -History of such, stable (9) Anxiety: (10) Depression: Psych on board recommended hydroxyzine 25mg po, but pt declined to start it Pt might benefit as well from SSRI, but does not want to start it now Will avoid Benzo due to respiratory/[employer] depression and opioid and marijuana used (11) Seizure: - (12) Gastroparesis: -Stable, has been able to tolerate p.o. (13) DVT prophylaxis: - teds, scds, ambulatory CODE: Full code Disposition Patient is dissatisfied with care at [facility] Request to be transferred to [facility], Will reach out to [facility] hospitalist Admission and Anticipated Discharge Date Admission Date: March 10, 2021 Subjective No chest pain or discomfort no orthopnea, Said that she is not getting better after being in the hospital more than 7 days Does not appear to be volume overloaded still able to urinate in spite of creatinine continues to worsen No fever or chills no cough Review of Systems Review of Systems: All systems reviewed & are unremarkable except as noted in Subjective Physical Exam Physical Exam: Physical exam: General: No acute distress, alert awake oriented x3 HEENT: PERRLA, EOMI, Heart: Regular S1-S2, no carotid bruit, no JVD, bilaterally +1 pitting edema edema Lungs: Clear to auscultate, no wheeze or rales Abdomen: Soft nontender, no organomegaly Extremity: +12 pitting edema bilaterally Neuro: No focal neurological deficit normal speech, normal visual field, Motor strength : normal both upper and lower extremity, sensation intact Psych: Alert awake oriented x3, normal affect Results & Data Results & Data ([facility]) Vital Signs (Past 12 Hours) Vital Signs Temp Pulse Pulse Resp BP BP Pulse Ox 03/21/21 15:07 37.1 C 100 H 18 85/56 L 94 03/21/21 14:19 79 H 95 03/21/21 11:40 37.1 C 86 18 99/66 L 94 03/21/21 11:03 89 18 95 03/21/21 07:35 101 H 03/21/21 07:20 37.3 C 107 H 18 86/60 L 94 03/21/21 07:06 94 H 18 94 03/21/21 03:33 36.9 C 96 H 22 85/55 L 92 (1) Acute renal failure Acute renal failure type: unspecified Qualified Code(s): N17.9 - Acute kidney failure, unspecified (2) Rhabdomyolysis Rhabdomyolysis type: non-traumatic Qualified Code(s): M62.82 - Rhabdomyolysis
[2021-03-21] MEDS: oxyCODONE HCL SOLN 5 MG/5 ML UDC PO PRN (16:59)
--- NOTE | 2021-03-21 17:36 | Communication Note ---
Date of Service: March 21, 2021 Reached out to [facility], currently does not have any available bed, Transfer may not happen today or late tomorrow. Patient and family updated Natalie Royal MD
--- NOTE | 2021-03-21 17:56 | Communication Note ---
Date of Service: March 21, [address] Jerel Muñoz , pt can be transferred to [place] no bed available in [place] currently , pt will be on list Pt's and pt updated Natalie Royal MD
[2021-03-21] MEDS: traZODone HCL 50 MG TAB PO SCH (22:23)
[2021-03-22 05:59] LABS: Basophils # (auto) 0.03 K/uL (0-0.2); Basophils % (auto) 0.4 %; Eosinophils # (auto) 0.43 K/uL (0-0.5); Eosinophils % (auto) 5.9 %; Hematocrit (blood only) 29.1 % (37-47); Hemoglobin 9.4 g/dL (12.0-16.0); Immature Granulocytes # (auto) 0.01 K/uL (0.00-0.02); Immature Granulocytes % (auto) 0.1 %; Lymphocytes # (auto) 1.53 K/uL (1.2-3.4); Mean Corpuscular Hemoglobin 30.9 pg (25-34); Mean Corpuscular Hgb Conc 32.3 g/dL (32-36); Mean Corpuscular Volume 95.7 fL (80-100); Mean Platelet Volume 9.5 fL (7.4-10.4); Monocytes # (auto) 0.57 K/uL (0.11-0.59); Monocytes % (auto) 7.8 %; Neutrophils # (auto) 4.72 K/uL (1.4-6.5); Neutrophils % (auto) 64.8 %; Platelet Count 265 K/uL (130-400); RDW Coefficient of Variation 14.8 % (11.5-14.5); RDW Standard Deviation 51.5 fL (36.4-46.3); Red Blood Count 3.04 M/uL (4.2-5.4); White Blood Count 7.29 K/uL (4.8-10.8)
[2021-03-22] MEDS: guaiFENesin SUGAR FREE 200 MG/10 ML UDC PO SCH ×4 (06:16→20:46)
[2021-03-22] MEDS: PROMETHAZINE HCL 6.25 MG in SODIUM CHLORIDE 0.9% 50 ML IV PRN (06:26)
[2021-03-22 06:34] LABS: BUN Creatinine Ratio 5.3 (10-20); Calcium 7.9 mg/dl (8.5-10.1); Creatinine Clr Calc Pharmacy 12.3 ml/min; Est GFR (African American) 10.5; Est GFR (Non-African American) 9.1; Potassium 3.4 mmol/L (3.5-5.1)
[2021-03-22] MEDS: LEVOTHYROXINE SODIUM 75 MCG TABLET PO SCH (06:50)
[2021-03-22] MEDS: ALBUT/IPRATROP 3MG/0.5MG NEB 3 ML VIAL INH SCH ×4 (07:24→19:17)
[2021-03-22] MEDS: SENNA 8.6 MG TAB PO SCH (08:43)
[2021-03-22] MEDS: ASPIRIN 81 MG ECTAB PO SCH (08:43)
[2021-03-22] MEDS: METOPROLOL SUCC 25MG EXT REL TAB PO SCH ×2 (08:43→20:45)
[2021-03-22] MEDS: PANTOprazole 40 MG TAB PO SCH ×2 (08:44→20:45)
[2021-03-22] MEDS: MIDODRINE HCL 10 MG TAB PO SCH ×3 (08:44→17:00)
[2021-03-22] MEDS: FLUTICASONE FUROATE 100MCG 14 PUFFS/INHALER INH SCH (08:46)
[2021-03-22] MEDS: UMECLIDINIUM/VILANTEROL 62.5/25MCG 7 PUFFS/INHALER INH SCH (08:46)
[2021-03-22] MEDS: hydrOXYzine HCl 25 MG TAB PO PRN (09:13)
--- NOTE | 2021-03-22 09:17 | Nephrology Progress Note ---
Date of Service March 22, 2021 Assessment & Plan Admission and Anticipated Discharge Date Admission Date: March 10, 2021 Subjective NEPHROLOGY PROGRESS NOTE SUBJECTIVE: patient angry that she is still here and wanted to be transferred to [facility] even though there is no medical reason to. Making urine. BP slightly better. Labs trending better now. OBJECTIVE: NECK: Supple. No jugular venous distention. HEENT: Mucous membrane is moist. RESPIRATORY: Decreased breath sounds bilaterally with occasional wheezing. CARDIOVASCULAR: Regular rate and rhythm, no murmur heard. EXTREMITIES: Show 1+ edema bilaterally, pitting type--but getting less SKIN: No rashes, although skin over her lower extremities seems very stressed and thin. LABORATORY TESTS: Creatinine this morning was slightly lower. Her admission creatinine was 6.06. ASSESSMENT AND PLAN: A 55-year-old female admitted with acute renal failure secondary to rhabdomyolysis. At this time, rhabdomyolysis is presumed from statin, although could be from hypokalemia and hyperthyroidism also. RECOMMENDATION FOR TODAY: 1. Creat trending down now finally after many days. NO ivf and no iv lasix. BP slightly better. 2. Daily labs at this point. 3. Correct electrolytes appropriately. 4 Continue midodrine 10 tid po for raising BP. Not long term care administrator though. 5 I tried to explain that creat trending down means she has started the slow recovery process from ARF from rhabdo and will likely trend better in the coming days. Most likely discharge within next 2 days or so. I told her that it makes no sense to transfer her but she is adamant to be transferred. Results & Data ([facility]) Vital Signs (Past 12 Hours) Vital Signs Temp Pulse Pulse Resp BP Pulse Ox 03/22/21 07:50 80 03/22/21 07:24 85 16 97 03/22/21 07:00 37 C 83 18 93/61 L 95 03/22/21 03:00 37 C 81 20 99/66 L 95 03/21/21 22:28 37.2 C 88 20 100/67 94
[2021-03-22] MEDS: ONDANSETRON INJ 2 MG/ML 2 ML VIAL IV PRN (11:00)
--- NOTE | 2021-03-22 11:20 | Hospitalist Progress Note ---
Date of Service March 22, 2021 Assessment & Plan (1) Acute renal failure: Acute renal failure on CKD stage III -secondary to rhabdomyolysis/statin induced: Crestor discontinued -Creatinine elevated at 6.06 on admission, has a baseline of 0.6-0.8 as an outpatient. -CK was 29,000 on admission. Improved to 400 today -Possibly contributed by Crestor however patient has been on it for many years. Patient developed volume overload after receiving IV fluids for rhabdomyolysis Was treated with IV Lasix -Appreciate nephrology input. 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 Does not have any GI symptoms (3) Hypokalemia: K 3.7 Resolved (4) CAD (coronary artery disease): -Follows with Angeline Madsen as an outpatient -Had most recent nuclear stress test echo on 02/21/2021 which showed normal LVEF of 55 to 59%, Moderate MR -Continue ASA 81mg daily -Crestor discontinued for rhabdomyolysis (5) HLD (hyperlipidemia): Crestor discontinued for rhabdomyolysis (6) COPD (chronic obstructive pulmonary disease): - History of smoking 25-50 pack years, currently still smoking 1/2 pack daily, started at age 11, denies need for nicotine patch -Uses O2 2L via NC at bedtime and with exertion at baseline -Continue with her usual inhalers and nebulized bronchodilator (Order modify that she can get her Neb treatment QID) -Continue oxygen supplement -Does not have any episode of exacerbation -Chest x-ray shows improvement of pulmonary congestion -Appreciate pulmonary medicine input. Follow-up as an outpatient. (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, stable as per CT of the head and brain -Follows with neurology as an outpatient but has not seen them in some time (8) Neurofibromatosis: -History of such, stable (9) Anxiety: (10) Depression: Psych on board recommended hydroxyzine 25mg po, but pt declined to start it Pt might benefit as well from SSRI, but does not want to start it now Will avoid Benzo due to respiratory/[employer] depression and opioid and marijuana used (11) Seizure: - (12) Gastroparesis: -Stable, has been able to tolerate p.o. (13) DVT prophylaxis: - teds, scds, ambulatory CODE: Full code Disposition [facility] in [place] was reached out yesterday for possible transfer, Patient was accepted but stayed overnight secondary to bed issue, Will call back to transfer center again today Admission and Anticipated Discharge Date Admission Date: March 10, 2021 Subjective Patient is sitting up, no complaint of shortness of breath or orthopnea Cough has improved, no fever or chills Upset thatshe is still not being transferred to [facility], Patient is updated regarding bed situation in [place], will reach out to transfer center again today Review of Systems Review of Systems: All systems reviewed & are unremarkable except as noted in Subjective Physical Exam Physical Exam: Physical exam: General: No acute distress, alert awake oriented x3 HEENT: PERRLA, EOMI, Heart: Regular S1-S2, no carotid bruit, no JVD, bilaterally +1 pitting edema edema Lungs: Clear to auscultate, no wheeze or rales Abdomen: Soft nontender, no organomegaly Extremity: +12 pitting edema bilaterally Neuro: No focal neurological deficit normal speech, normal visual field, Motor strength : normal both upper and lower extremity, sensation intact Psych: Alert awake oriented x3, normal affect Results & Data Results & Data ([facility]) Vital Signs (Past 12 Hours) Vital Signs Temp Pulse Pulse Resp BP Pulse Ox 03/22/21 11:11 37.2 C 66 18 93/65 L 99 03/22/21 07:50 80 03/22/21 07:24 85 16 97 03/22/21 07:00 37 C 83 18 93/61 L 95 03/22/21 03:00 37 C 81 20 99/66 L 95 (1) Acute renal failure Acute renal failure type: unspecified Qualified Code(s): N17.9 - Acute kidney failure, unspecified (2) Rhabdomyolysis Rhabdomyolysis type: non-traumatic Qualified Code(s): M62.82 - Rhabdomyolysis
[2021-03-22] MEDS: oxyCODONE HCL SOLN 5 MG/5 ML UDC PO PRN ×2 (12:24→18:43)
--- NOTE | 2021-03-22 16:20 | Communication Note ---
Date of Service: March 22, 2021 Reached out to [facility] today spoke with triage hospitalist Dr. Kamari Irwin [facility] does not have any available bed, very unlikely any bed will be available overnight, Currently they have almost 21 patient waiting for bed. Understands that patient is clinically improving, transfer to [place] is entirely patient's decision/choice there is no underlying medical necessity There is no need for higher level of care, medical care will be same in [facility] Given the current bed situation, patient cannot be accepted to be transferred Asked to call back in a.m. to assess bed opening in [place] Mrs. Brown updated regarding no bed available in [place], and no transfer can be done today, she is agreeable Natalie Royal MD
[2021-03-22] MEDS: traZODone HCL 50 MG TAB PO SCH (21:04)
[2021-03-23] MEDS ORDERED: diphenhydrAMINE Capsule 25 MG CAP PO ONE (00:55)
[2021-03-23] MEDS: guaiFENesin SUGAR FREE 200 MG/10 ML UDC PO SCH ×3 (02:24→20:49)
[2021-03-23 06:04] LABS: Basophils # (auto) 0.03 K/uL (0-0.2); Basophils % (auto) 0.4 %; Eosinophils # (auto) 0.36 K/uL (0-0.5); Eosinophils % (auto) 4.3 %; Hematocrit (blood only) 30.8 % (37-47); Immature Granulocytes # (auto) 0.02 K/uL (0.00-0.02); Immature Granulocytes % (auto) 0.2 %; Lymphocytes # (auto) 1.45 K/uL (1.2-3.4); Lymphocytes % (auto) 17.4 %; Mean Corpuscular Hgb Conc 32.5 g/dL (32-36); Mean Corpuscular Volume 95.4 fL (80-100); Mean Platelet Volume 9.6 fL (7.4-10.4); Monocytes # (auto) 0.56 K/uL (0.11-0.59); Monocytes % (auto) 6.7 %; Neutrophils # (auto) 5.92 K/uL (1.4-6.5); Platelet Count 291 K/uL (130-400); RDW Standard Deviation 52.8 fL (36.4-46.3); Red Blood Count 3.23 M/uL (4.2-5.4); White Blood Count 8.34 K/uL (4.8-10.8)
[2021-03-23] MEDS: PROMETHAZINE HCL 6.25 MG in SODIUM CHLORIDE 0.9% 50 ML IV PRN (06:19)
[2021-03-23 06:37] LABS: BUN Creatinine Ratio 5.5 (10-20); Calcium 7.8 mg/dl (8.5-10.1); Creatinine Clr Calc Pharmacy 12.9 ml/min; Est GFR (African American) 11.2; Est GFR (Non-African American) 9.6; Potassium 3.4 mmol/L (3.5-5.1)
[2021-03-23] MEDS: LEVOTHYROXINE SODIUM 75 MCG TABLET PO SCH (06:59)
[2021-03-23] MEDS: ALBUT/IPRATROP 3MG/0.5MG NEB 3 ML VIAL INH SCH ×4 (07:16→19:16)
[2021-03-23] MEDS: MIDODRINE HCL 10 MG TAB PO SCH ×3 (07:48→16:12)
[2021-03-23] MEDS: METOPROLOL SUCC 25MG EXT REL TAB PO SCH (07:48)
[2021-03-23] MEDS: ASPIRIN 81 MG ECTAB PO SCH (07:48)
[2021-03-23] MEDS: SENNA 8.6 MG TAB PO SCH (07:48)
[2021-03-23] MEDS: UMECLIDINIUM/VILANTEROL 62.5/25MCG 7 PUFFS/INHALER INH SCH (07:49)
[2021-03-23] MEDS: FLUTICASONE FUROATE 100MCG 14 PUFFS/INHALER INH SCH (07:49)
[2021-03-23] MEDS: PANTOprazole 40 MG TAB PO SCH ×2 (07:49→22:01)
[2021-03-23] MEDS ORDERED: POTASSIUM CHLORIDE CRTAB 20 MEQ TABCR PO ONE (08:30)
[2021-03-23] MEDS: hydrOXYzine HCl 25 MG TAB PO PRN (11:26)
--- NOTE | 2021-03-23 12:52 | Nephrology Progress Note ---
Date of Service March 23, 2021 Assessment & Plan (1) Rhabdomyolysis: meets criteria for rhadomyolysis by CK and urine findings (dipstick blood w/o RBC on micro): statin is likeliest culprit here. However rhabdomyolysis can also come from hypokalemia and hyperthyroidism. Additionally, hypokalemia in the setting of statin use for example can pose heightened risk for rhabdomyolysis. CK is down to 450s today. cont to monitor. no indication for ivf at this point (2) Acute renal failure: Severe/ stage 3 nonoliguric UNRULY; baseline creatinine 0.9. Presenting creatinine 6.1 on March 10. Creatinine improved slightly to 4.7 today from 5 yesterday. In the setting of rhabdomyolysis likely multifactorial. Significant hypokalemia on presentation which is improving though still needing potassium supplementation; w/ medical mgt, resolution of nongap acidosis. Report of oliguria prior to admission, this has thankfully not been observed here. No obstruction or other lesions on ultrasound. 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 ->>Daily BMP -Avoid all NSAIDs now and at d/c -would also minimize/avoid morphine w/ her degree of renal failure and ensure that other pain meds are dosed for current degree of renal failure ->>Still with significant renal failure and unclear how much recovery she will have ->>Continue blood pressure support; no indication today for IV fluids or for Lasix (3) Transaminitis: Improving as of 03/19 but still significant >>>> Recommend recheck 03/24 and so ordered -Again no NSAIDs -Continue conservative management (4) Electrolyte abnormality: Hypokalemia on presentation. Patient with remote history of this. No offending medications apart from high-dose ibuProfen use dosed multiple times daily. -as above >> supplement as needed (5) Hypotension: unexpected >> ? if d/t increased betablocker in setting of narcotics but given fluid overload ongoing and hypotension despite max dose midodrine, reasonable to check TTE; did d/w Dr Royal but will leave to primary service to d/w pt -cont midodrine -? if possible to titrate down on beta lynne (though she is on home dose currently) Present on Admission?: Yes (6) Shortness of breath: Improving/at baseline. She is satting 93% on room air but prefers to wear oxygen. cxr from 03/21 still w/ plm vasc congestion Present on Admission?: Yes (7) Anxiety: A chronic issue for her. per hospitalist. I tried repeatedly today to reassure her that her opinions matter, that we are listening to her and trying to balance her clinical needs; I apologized for her feeling like she is not being listened to. Present on Admission?: Yes Admission and Anticipated Discharge Date Admission Date: March 10, 2021 Subjective ongoing hypotension; pain with reasonable control. Ongoing and significant anxiety. Ongoing cough. Tolerating p.o. No voiding concerns. Feels her edema is pretty much resolved. Goal is on her standpoint [facility]. Continues to feel her clinical needs have not been met at [facility] Review of Systems Review of Systems: All systems reviewed & are unremarkable except as noted in Subjective Physical Exam Constitutional: well developed, well nourished, + thin and cooperative; no acute distress (But still anxious) Eyes: EOM intact bilaterally ENMT: Ears: no external ear abnormality Nose: no external nose abnormality Mouth: + dry oral mucous membranes and + edentulous Neck: no nuchal rigidity Respiratory: normal respiratory effort, + cough (dry) and able to speak in complete sentences; no respiratory distress and not tachypneic Auscultation: + diminished lung sounds (minimal air mvt) and + rhonchi (Occasional); no crackles, no rales and no wheezes Cardiovascular: Rate/Rhythm: regular rate and regular rhythm Heart Sounds: no murmur Extremities: + edema (2+ pedal right) Gastrointestinal (Abdomen): Inspection/Auscultation: normal bowel sounds; abdomen not distended Percussion/Palpation: abdomen soft; abdomen nontender Musculoskeletal: Extremities: + abnormal strength (Generalized weakness and notable muscle atrophy lateral upper and lower ext) Skin: no rashes, warm and dry Neurologic: Moves all extremities, fluent speech, mild resting right upper extremity tremor Psychiatric: Orientation: alert and oriented x 3 Speech: normal rate/rhythm/volume of speech Affect: + anxious affect Insight: good insight and + limited insight Judgement: good judgement and + limited judgement Results & Data ([facility]) Vital Signs (Past 12 Hours) Vital Signs Temp Pulse Pulse Resp BP Pulse Ox 03/23/21 11:32 36.9 C 79 18 92/63 L 93 03/23/21 10:10 81 18 95 03/23/21 08:00 80 03/23/21 07:49 36.8 C 71 18 92/60 L 96 03/23/21 07:16 83 18 95 03/23/21 03:17 36.8 C 85 18 90/65 L 95 Laboratory Results 03/23/21 05:54 03/23/21 05:54 (1) Acute renal failure Acute renal failure type: unspecified Qualified Code(s): N17.9 - Acute kidney failure, unspecified (2) Rhabdomyolysis Rhabdomyolysis type: non-traumatic Qualified Code(s): M62.82 - Rhabdomyolysis
[2021-03-23] MEDS: oxyCODONE HCL SOLN 5 MG/5 ML UDC PO PRN (13:13)
--- NOTE | 2021-03-23 13:42 | Hospitalist Progress Note ---
Date of Service March 23, 2021 Assessment & Plan (1) Acute renal failure: Acute renal failure on CKD stage III -secondary to rhabdomyolysis/statin induced: Crestor discontinued -Creatinine elevated at 6.06 on admission, has a baseline of 0.6-0.8 as an outpatient. -CK was 29,000 on admission. continues to improve - Patient developed volume overload after receiving IV fluids for rhabdomyolysis Was treated with IV Lasix -Appreciate nephrology input. Volume status has been stable, Lasix has been kept on hold Creatinine gradually improving 4.7 today urine out put adequate, vol status and electroyte remains stable pt feels much better since admission wiling to stay in [facility] and later possibly getting discharged to rehab early next week Hypotension SBP remains 90s80s No symptoms of dizzy spell lightheadedness Started on midodrine by nephrology dose increased to 10 mg 3 times daily ECHO in am (2) Rhabdomyolysis: CK of 29,000 on admission CPK continue to trend down 600-400 Statin is discontinued, added to patient's drug allergies/adverse reaction list Elevated hepatic enzymes Secondary to rhabdomyolysis ultrasound of the liver was unremarkable. Does not have any GI symptoms (3) Hypokalemia: K 3.7 Resolved (4) CAD (coronary artery disease): stable , no complain of chest pain , sob -Follows with Angeline Madsen as an outpatient -Had most recent nuclear stress test echo on 02/21/2021 which showed normal LVEF of 55 to 59%, Moderate MR -Continue ASA 81mg daily -Crestor discontinued for rhabdomyolysis (5) HLD (hyperlipidemia): Crestor discontinued for rhabdomyolysis (6) COPD (chronic obstructive pulmonary disease): - History of smoking 25-50 pack years, currently still smoking 1/2 pack daily, started at age 11, denies need for nicotine patch -Uses O2 2L via NC at bedtime and with exertion at baseline -Continue with her usual inhalers and nebulized bronchodilator (Order modify that she can get her Neb treatment QID) -Continue oxygen supplement -Does not have any episode of exacerbation -Chest x-ray shows improvement of pulmonary congestion -Appreciate pulmonary medicine input. Follow-up as an outpatient. 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 (11) Seizure: - (12) Gastroparesis: -Stable, has been able to tolerate p.o.diet (13) DVT prophylaxis: - will order SC heparin CODE: Full code Disposition pt is wiling to stay at [facility] , wants to be discharged to rehab at [place] when medically stable CM updated Admission and Anticipated Discharge Date Admission Date: March 10, 2021 Subjective pt says she feels better today does not feel short of breath , cough has resolved no fever or chills complains of heart healthy diet as it does not have any seasoning as she is continuing to do well , she may be able to be discharged to rehab on thursday going to [place] then getting discharge will not be be appropriate pt agrees , willing to stay and getting treatment at [facility] Review of Systems Review of Systems: All systems reviewed & are unremarkable except as noted in Subjective Physical Exam Physical Exam: Physical exam: General: No acute distress, alert awake oriented x3 HEENT: PERRLA, EOMI, Heart: Regular S1-S2, no carotid bruit, no JVD, bilaterally +1 pitting edema ed jewel Lungs: Clear to auscultate, no wheeze or rales Abdomen: Soft nontender, no organomegaly Extremity: +12 pitting edema bilaterally Neuro: No focal neurological deficit normal speech, normal visual field, Motor strength : normal both upper and lower extremity, sensation intact Psych: Alert awake oriented x3, normal affect Results & Data Results & Data ([facility]) Vital Signs (Past 12 Hours) Vital Signs Temp Pulse Pulse Resp BP Pulse Ox 03/23/21 11:32 36.9 C 79 18 92/63 L 93 03/23/21 10:10 81 18 95 03/23/21 08:00 80 03/23/21 07:49 36.8 C 71 18 92/60 L 96 03/23/21 07:16 83 18 95 03/23/21 03:17 36.8 C 85 18 90/65 L 95 (1) Acute renal failure Acute renal failure type: unspecified Qualified Code(s): N17.9 - Acute kidney failure, unspecified (2) Rhabdomyolysis Rhabdomyolysis type: non-traumatic Qualified Code(s): M62.82 - Rhabdomyolysis
[2021-03-23] MEDS: SODIUM CHLORIDE 0.65% NA SOLN 45 ML (OCEAN) SCH ×2 (14:35→20:49)
[2021-03-23] MEDS: HEPARIN SOD 5,000 UNIT/0.5 ML VIAL SQ SCH ×2 (16:11→22:02)
--- NOTE | 2021-03-23 16:55 | Communication Note ---
Date of Service: March 23, 2021 pt remains hypotensive 85/59 d/w Nephrology , echo ordered beta lynne dose adjusted ( HR in 80-70's ) Toprol XL 12.5 mg PO daily was on 25 mg in Am /12.5 mg in PM not on IV morphine any more utilizing oxycodone 5 mg Q6 hrs PRN will reduce Trazodone to 100 mg HS cont to monitor
[2021-03-23] MEDS: traZODone HCL 100 MG TAB PO SCH (22:01)
[2021-03-24] MEDS: SODIUM CHLORIDE 0.65% NA SOLN 45 ML (OCEAN) SCH ×4 (01:47→20:54)
[2021-03-24] MEDS: ONDANSETRON INJ 2 MG/ML 2 ML VIAL IV PRN ×2 (03:18→17:21)
[2021-03-24] MEDS: LEVOTHYROXINE SODIUM 75 MCG TABLET PO SCH (05:02)
[2021-03-24] MEDS: guaiFENesin SUGAR FREE 200 MG/10 ML UDC PO SCH ×3 (05:02→21:33)
[2021-03-24] MEDS: HEPARIN SOD 5,000 UNIT/0.5 ML VIAL SQ SCH ×3 (05:03→21:35)
[2021-03-24 06:12] LABS: BUN Creatinine Ratio 5.4 (10-20); Bilirubin Direct 0.2 mg/dl (0-0.2); Calcium 7.7 mg/dl (8.5-10.1); Creatinine Clr Calc Pharmacy 13.9 ml/min; Est GFR (African American) 12.2; Est GFR (Non-African American) 10.6; Potassium 3.4 mmol/L (3.5-5.1)
[2021-03-24 06:15] LABS: Bilirubin,Total 0.5 mg/dl (0.2-1); Total Protein 5.5 gm/dl (6.4-8.2)
[2021-03-24] MEDS: ALBUT/IPRATROP 3MG/0.5MG NEB 3 ML VIAL INH SCH ×4 (07:38→19:37)
[2021-03-24] MEDS: oxyCODONE HCL SOLN 5 MG/5 ML UDC PO PRN (08:17)
[2021-03-24] MEDS: SENNA 8.6 MG TAB PO SCH ×2 (08:18→08:25)
[2021-03-24] MEDS: METOPROLOL SUCC 25MG EXT REL TAB PO SCH (08:19)
[2021-03-24] MEDS: MIDODRINE HCL 10 MG TAB PO SCH ×3 (08:19→17:18)
[2021-03-24] MEDS: PANTOprazole 40 MG TAB PO SCH ×2 (08:19→21:34)
[2021-03-24] MEDS: ASPIRIN 81 MG ECTAB PO SCH (08:20)
[2021-03-24] MEDS: FLUTICASONE FUROATE 100MCG 14 PUFFS/INHALER INH SCH (08:20)
[2021-03-24] MEDS: UMECLIDINIUM/VILANTEROL 62.5/25MCG 7 PUFFS/INHALER INH SCH (08:21)
--- NOTE | 2021-03-24 08:25 | Communication Note ---
Date of Service: March 24, 2021 AM lab reviewed, Creatinine improved to 4.3, normal CK level Normal LFTs, Clinically continues to improve, BP : 101/68 Plan to discharge to rehab tomorrow, if insurance approval and bed availability confirmed Natalie Royal MD
[2021-03-24] MEDS ORDERED: POTASSIUM CHLORIDE CRTAB 20 MEQ TABCR PO ONE (09:00)
--- NOTE | 2021-03-24 09:45 | XRay Report ---
XR chest 1V portable HISTORY: 55 years-old Female SOB acute shortness of breath COMPARISON: Chest radiograph 03/21/2021 TECHNIQUE: Portable AP view of the chest FINDINGS: Cardiomediastinal and hilar silhouettes are within normal limits. Pulmonary vascular congestion. Reba re emphysema with chronic interstitial coarsening. Mildly progressed left lung base opacities. Chroni c blunting of the costophrenic angles. No pneumothorax. Postoperative changes of the left lung apex. Degenerative changes of the shoulders and spine. IMPRESSION: 1. Mildly progressed left lung base opacities suspicious for pneumonia. 2. Severe emphysema. ACT 112: Negative or not required by law. The above report was generated using voice recognition software. It may contain grammatical, syntax o r spelling errors. Electronically signed by: Po Santos M.D. 03/24/2021 9:43 AM
[2021-03-24] MEDS: DOXYCYCLINE HYCLATE 100 MG CAP PO SCH ×2 (14:01→21:34)
--- NOTE | 2021-03-24 14:33 | Hospitalist Progress Note ---
Date of Service March 24, 2021 Assessment & Plan (1) Acute renal failure: Acute renal failure on CKD stage III -secondary to rhabdomyolysis CK was 29,000 on admission. /statin induced was on Crestor: Discontinued -Creatinine elevated at 6.06 on admission, has a baseline of 0.6-0.8 as an outpatient. -Renal function continues to improve --Appreciate nephrology input. Volume status has been stable, Lasix has been kept on hold Creatinine gradually improving 4.7 -4.3 urine out put adequate, Avoid NSAIDs and contrast studies, repeat BMP in a.m.' Patient will need weekly outpatient lab: BMP check until renal function improves to baseline pt feels much better since admission Patient is comfortable to receive her care at [facility] with expectation to be discharged in next 24-48 hours Hypotension Not sure of the etiology, no evidence of sepsis, no dehydration noted, normal p.o. intake BP has improved, 102/67 No symptoms of dizzy spell lightheadedness We will hold off antihypertensive/beta-lynne Started on midodrine by nephrology dose increased to 10 mg 3 times daily ECHO in am (2) Rhabdomyolysis: Statin induced-resolved now/CK level normalized Crestor discontinued/added to patient's drug allergies/adverse reaction list CK of 29,000 on admission Received IV fluids on admission as per standard treatment guidelines for rhabdomyolysis/acute renal failure Later developed volume overload, was treated with IV Lasix Volume status has been stable since, has not required any IV fluids or Lasix for last few days Joint Cutter being involved closely CPK continued to trended down CK normal level today Patient updated of the test result Elevated hepatic enzymes Secondary to rhabdomyolysis Left is normalized with resolution of rhabdomyolysis ultrasound of the liver was unremarkable. (3) Hypokalemia: Corrected (4) CAD (coronary artery disease): stable , no complain of chest pain , sob -Follows with Angeline Madsen as an outpatient -Had most recent nuclear stress test echo on 02/21/2021 which showed normal LVEF of 55 to 59%, Moderate MR -Continue ASA 81mg daily -Crestor discontinued for rhabdomyolysis DC beta-lynne for persistent hypotension, (5) HLD (hyperlipidemia): Crestor discontinued for rhabdomyolysis Patient may not be a candidate for statin treatment in future for severe advanced reaction Will be followed up by her cardiology for all alternative treatment as indicated (6) COPD (chronic obstructive pulmonary disease): Speech status stable no wheeze, no shortness of breath, no hypoxia - History of smoking 25-50 pack years, currently still smoking 1/2 pack daily, started at age 11, denies need for nicotine patch -Uses O2 2L via NC at bedtime and with exertion at baseline -Continue with her usual inhalers and nebulized bronchodilator (Order modify that she can get her Neb treatment QID) -Continue oxygen supplement -Appreciate pulmonary medicine input. Follow-up as an outpatient. Chest x-ray today shows severe emphysema, improvement of pulmonary congestion, possible left basilar pneumonia Started on p.o. 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 history of opioid and marijuana abuse Patient will be encouraged to follow-up with psychiatry as outpatient (11) Seizure: -No episode (12) Gastroparesis: -Stable, has been able to tolerate p.o.diet (13) DVT prophylaxis: - Subcu heparin CODE: Full code Disposition pt is wiling to stay at [facility] , wants to be discharged to rehab at [place] when medically stable Patient wishes to go to [facility] only CM updated , referral made to [facility] over the weekend, Patient will need updated PT OT evaluation, ordered Admission and Anticipated Discharge Date Admission Date: March 10, 2021 Subjective Patient reports of feeling well today, has nonproductive cough, which has been unchanged since admission: No shortness of breath, no dyspnea on exertion, no fever or chills Denies of any orthopnea, lower extremity edema has completely resolved Normal appetite, no nausea or abdominal pain Admitted under creatinine level has been improving with normalization of CK level Hopeful to be discharged to rehab/[facility] tomorrow Patient feels returning home with home health is not an option Her works full-time there is nobody at home during the daytime to take care of her. Review of Systems Review of Systems: All systems reviewed & are unremarkable except as noted in Subjective Physical Exam Physical Exam: Physical exam: General: No acute distress, alert awake oriented x3 HEENT: PERRLA, EOMI, Heart: Regular S1-S2, no carotid bruit, no JVD, bilaterally , no lower extremity edema Lungs: Diminished breath sound no wheeze or rales Abdomen: Soft nontender, no organomegaly Extremity: No rash or deformity, Neuro: No focal neurological deficit normal speech, normal visual field, Motor strength : normal both upper and lower extremity, sensation intact Psych: Alert awake oriented x3, normal affect Results & Data Results & Data ([facility]) Vital Signs (Past 12 Hours) Vital Signs Temp Pulse Resp BP Pulse Ox 03/24/21 11:20 64 102/67 03/24/21 11:08 83 20 93 03/24/21 07:40 36.9 C 87 20 101/68 92 03/24/21 03:26 37.0 C 87 18 92/59 L 96 (1) Acute renal failure Acute renal failure type: unspecified Qualified Code(s): N17.9 - Acute kidney failure, unspecified (2) Rhabdomyolysis Rhabdomyolysis type: non-traumatic Qualified Code(s): M62.82 - Rhabdomyolysis
[2021-03-24] MEDS: hydrOXYzine HCl 25 MG TAB PO PRN (17:18)
[2021-03-24] MEDS: ALBUTEROL HFA 8 GM INHALER INH PRN (20:59)
[2021-03-24] MEDS: PROMETHAZINE HCL 6.25 MG in SODIUM CHLORIDE 0.9% 50 ML IV PRN (21:12)
[2021-03-24] MEDS: traZODone HCL 100 MG TAB PO SCH (21:34)
[2021-03-25] MEDS: SODIUM CHLORIDE 0.65% NA SOLN 45 ML (OCEAN) SCH ×4 (01:55→20:07)
[2021-03-25] MEDS: guaiFENesin SUGAR FREE 200 MG/10 ML UDC PO SCH ×3 (05:09→20:42)
[2021-03-25] MEDS: HEPARIN SOD 5,000 UNIT/0.5 ML VIAL SQ SCH ×3 (06:09→20:43)
[2021-03-25] MEDS: LEVOTHYROXINE SODIUM 75 MCG TABLET PO SCH (06:09)
[2021-03-25] MEDS: ONDANSETRON INJ 2 MG/ML 2 ML VIAL IV PRN ×2 (06:19→20:40)
[2021-03-25 07:18] LABS: Albumin Level 2.1 gm/dl (3.4-5.0); BUN Creatinine Ratio 5.4 (10-20); Bilirubin Direct 0.2 mg/dl (0-0.2); Calcium 8.7 mg/dl (8.5-10.1); Creatinine Clr Calc Pharmacy 14.8 ml/min; Est GFR (African American) 13.2; Est GFR (Non-African American) 11.4; Potassium 3.4 mmol/L (3.5-5.1)
[2021-03-25 07:21] LABS: Bilirubin,Total 0.6 mg/dl (0.2-1); Total Protein 5.9 gm/dl (6.4-8.2)
[2021-03-25] MEDS: ALBUT/IPRATROP 3MG/0.5MG NEB 3 ML VIAL INH SCH ×4 (07:22→19:17)
[2021-03-25] MEDS ORDERED: POTASSIUM CHLORIDE CRTAB 20 MEQ TABCR PO STA (07:31)
[2021-03-25] MEDS: hydrOXYzine HCl 25 MG TAB PO PRN (08:31)
--- NOTE | 2021-03-25 08:31 | Nephrology Progress Note ---
Date of Service March 25, 2021 Assessment & Plan (1) Rhabdomyolysis: now resolved; at admission met criteria for rhabdomyolysis by CK and urine findings (dipstick blood w/o RBC on micro): statin is likeliest culprit here, complicated by chronic hypokalemia and hypothyroidism. CK has normalized as of March 24. Complicated by stage III acute kidney injury and transaminitis (2) Acute renal failure: Severe/ stage 3 nonoliguric UNRULY; baseline creatinine 0.9. Presenting creatinine 6.1 on March 10. Creatinine improved again today to 4.1. In the setting of rhabdomyolysis likely multifactorial. Significant hypokalemia on presentation which is improving though still needing potassium supplementation; no other significant electrolyte issues apart from metabolic acidosis at admission resolved. Also with significant hypotension and new onset systolic heart failure. Report of oliguria prior to admission, this has thankfully not been observed here. No obstruction or other lesions on ultrasound. 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 Still with significant renal insufficiency and unclear what her new baseline will be ->>Daily BMP -Avoid all NSAIDs now and at d/c -would also minimize/avoid morphine w/ her degree of renal failure and ensure that other pain meds are dosed for current degree of renal failure ->>Continue blood pressure support; no indication today for IV fluids or for Lasix -will collect repeat urine specimen and prot/creat prior to hospital d/c DISCHARGE RECS: -lower midodrine to 5 mg bid at d/c Started potassium 20 mEq twice daily which should continue at discharge >>>NO NSAIDS; will need alternate pain mgt program >>will need weekly bmp and urine testing after d/c (to be ordered by my nursing staff) and f/u w/ me or Dr Khan in CKD clinic w/in 2-3 wks of hospital d/c -est w/ cardiology as OP; pulmonary also recommended OP pulm f/u if not already doing so Care coordinated w/ Dr Royal (3) Hypotension: unexpected but not new. Her outpatient blood pressures run generally 90s to 100s systolic for at least the past year and longer>> ? Due to biventricular heart failure -We will lower midodrine to 5 mg 3 times daily, since blood pressure is at baseline Beta-lynne on hold and would not resume for cardiology follow-up as outpatient (4) Shortness of breath: Improving/at baseline. She is satting 93% on room air but prefers to wear oxygen. cxr from 03/21 still w/ plm vasc congestion>> left lung base findings concerning for pneumonia (despite exam), still with vascular congestion x-ray in the setting of severe emphysema (5) Anxiety: A chronic issue for her. per hospitalist. I tried repeatedly today to reassure her that her opinions matter, that we are listening to her and trying to balance her clinical needs; I apologized for her feeling like she is not being listened to. Hydroxyzine can prolong the QT interval and needs to be used with caution in COPD patients. Recommend rechecking ECG Admission and Anticipated Discharge Date Admission Date: March 10, 2021 Subjective no interval events. N and R arm pain when I saw her this am > getting phenergan. no worsening sob or cough or edema. Review of Systems Review of Systems: All systems reviewed & are unremarkable except as noted in Subjective Physical Exam 2 Constitutional: well developed, well nourished, + thin and cooperative; no acute distress (But still anxious) Eyes: EOM intact bilaterally ENMT: Ears: no external ear abnormality Nose: no external nose abnormality Mouth: + dry oral mucous membranes and + edentulous Neck: no nuchal rigidity Respiratory: normal respiratory effort, + cough (dry) and able to speak in complete sentences; no respiratory distress and not tachypneic Auscultation: + diminished lung sounds (minimal air mvt) and + crackles (R base); no rales, no rhonchi and no wheezes Cardiovascular: RRR, no murmur, no edema Heart Sounds: no murmur Gastrointestinal (Abdomen): Inspection/Auscultation: normal bowel sounds; abdomen not distended Percussion/Palpation: abdomen soft; abdomen nontender Musculoskeletal: Extremities: + abnormal strength (Generalized weakness and notable muscle atrophy lateral upper and lower ext) Skin: no rashes, warm and dry Neurologic: norman, fluent speech, no tremor Psychiatric: Orientation: alert and oriented x 3 Motor Behavior: + psychomotor retardation (slight) Speech: normal rate/rhythm/volume of speech Affect: + anxious affect Insight: good insight and + limited insight Judgement: good judgement and + limited judgement Results & Data ([facility]) Vital Signs (Past 12 Hours) Vital Signs Temp Pulse Resp BP Pulse Ox 03/25/21 08:00 36.4 C L 66 12 102/78 100 03/25/21 07:23 88 18 97 03/24/21 22:57 37.2 C 92 H 18 89/57 L 96 Laboratory Results 03/23/21 05:54 03/25/21 06:21 Diagnostic Findings TTE March 24 Mild concentric LVH. No significant valvular pathology. Ejection fraction 45%. Grade 1 diastolic dysfunction. Mild to moderate right ventricular hypertrophy. (1) Acute renal failure Acute renal failure type: unspecified Qualified Code(s): N17.9 - Acute kidney failure, unspecified (2) Rhabdomyolysis Rhabdomyolysis type: non-traumatic Qualified Code(s): M62.82 - Rhabdomyolysis
[2021-03-25] MEDS: PANTOprazole 40 MG TAB PO SCH ×2 (08:32→20:46)
[2021-03-25] MEDS: SENNA 8.6 MG TAB PO SCH (08:33)
[2021-03-25] MEDS: ASPIRIN 81 MG ECTAB PO SCH (08:33)
[2021-03-25] MEDS: DOXYCYCLINE HYCLATE 100 MG CAP PO SCH ×2 (08:34→20:45)
[2021-03-25] MEDS: MIDODRINE HCL 10 MG TAB PO SCH (08:34)
[2021-03-25] MEDS: UMECLIDINIUM/VILANTEROL 62.5/25MCG 7 PUFFS/INHALER INH SCH (08:35)
[2021-03-25] MEDS: FLUTICASONE FUROATE 100MCG 14 PUFFS/INHALER INH SCH (08:36)
[2021-03-25] MEDS: oxyCODONE HCL SOLN 5 MG/5 ML UDC PO PRN (10:19)
[2021-03-25] MEDS: PROMETHAZINE HCL 6.25 MG in SODIUM CHLORIDE 0.9% 50 ML IV PRN (10:45)
[2021-03-25] MEDS: MIDODRINE HCL 2.5 MG TAB PO SCH ×2 (12:54→17:18)
[2021-03-25] MEDS: traZODone HCL 100 MG TAB PO SCH (20:45)
[2021-03-25] MEDS: POTASSIUM CHLORIDE CRTAB 20 MEQ TABCR PO SCH (20:47)
[2021-03-25] MEDS ORDERED: oxyCODONE HCL IR 5 MG TAB (IMMEDIATE RELEASE) PO STA (20:47)
[2021-03-25 22:26] LABS: Appearance Urine Clear (Clear); Bacteria Urine Automated Negative (Negative); Bilirubin Urine Negative (Negative); Blood Urine Trace (Negative); Color Urine Yellow; Epithelial Cell Urine Auto >30 /lpf (0-5); Glucose Urine UA Negative (Negative); Ketones Urine Negative (Negative); Leukocyte Esterase Urine Negative (Negative); Nitrite Urine Negative (Negative); Specific Gravity Urine 1.012 (1.000-1.030); Urobilinogen Urine Negative (Negative); pH Urine >= 9.0 (4.5-7.5)
[2021-03-25 22:38] LABS: Protein Urine 1+ (Negative)
[2021-03-25 22:40] LABS: Creatinine Urine Random 64.5 mg/dl; Protein Creatinine Ratio Urine 1.3 (0-0.2); Total Protein Urine Random 83.7 mg/dl (0-11.9)
--- NOTE | 2021-03-25 23:24 | Hospitalist Progress Note ---
Date of Service March 25, 2021 Assessment & Plan (1) Acute renal failure: Acute renal failure on CKD stage III -secondary to rhabdomyolysis CK was 29,000 on admission. /statin induced was on Crestor: Discontinued -Creatinine elevated at 6.06 on admission, has a baseline of 0.6-0.8 as an outpatient. -Renal function continues to improve --Appreciate nephrology input. Volume status has been stable, Lasix has been kept on hold Creatinine gradually improving 4.7 -4.3-. 4.1 urine out put adequate, Avoid NSAIDs and contrast studies, repeat BMP in a.m.' Patient will need weekly outpatient lab: BMP check until renal function improves to baseline Appreciate input from nephrology, patient will need weekly kidney function check on discharge, Nephrology follow-up in clinic in 4 weeks Due to generalized deconditioning will need to go to rehab after discharge from hospital Hypotension BP has improved, 102/67 No symptoms of dizzy spell lightheadedness Melissa kept on hold for hypotension bradycardia Midodrine dose reduced, echo shows CHF with systolic dysfunction EF of 35% Patient currently appears to be in stable volume status (2) Rhabdomyolysis: Resolved, CK level normalized Statin induced-resolved now/CK level normalized Crestor discontinued/added to patient's drug allergies/adverse reaction list CK of 29,000 on admission Received IV fluids on admission as per standard treatment guidelines for rhabdomyolysis/acute renal failure Later developed volume overload, was treated with IV Lasix Volume status has been stable since, has not required any IV fluids or Lasix for last few days Gut Dropper being involved closely CK normal level today Patient updated of the test result Elevated hepatic enzymes Secondary to rhabdomyolysis Liver function normalized with resolution of rhabdomyolysis ultrasound of the liver was unremarkable. (3) Hypokalemia: Corrected (4) CAD (coronary artery disease): stable , no complain of chest pain , sob -Follows with Angeline Madsen as an outpatient -Had most recent nuclear stress test echo on 02/21/2021 which showed normal LVEF of 55 to 59%, Moderate MR Echo shows worsening of ejection fraction to 35% -Continue ASA 81mg daily -Crestor discontinued for rhabdomyolysis The melissa kept on hold for bradycardia, hypotension (5) HLD (hyperlipidemia): Crestor discontinued for rhabdomyolysis Patient may not be a candidate for statin treatment in future for severe advanced reaction Will be followed up by her cardiology for all alternative treatment as indicated (6) COPD (chronic obstructive pulmonary disease): Speech status stable no wheeze, no shortness of breath, no hypoxia - History of smoking 25-50 pack years, currently still smoking 1/2 pack daily, started at age 11, denies need for nicotine patch -Uses O2 2L via NC at bedtime and with exertion at baseline -Continue with her usual inhalers and nebulized bronchodilator (Order modify that she can get her Neb treatment QID) -Continue oxygen supplement -Appreciate pulmonary medicine input. Follow-up as an outpatient. Chest x-ray today shows severe emphysema, improvement of pulmonary congestion, possible left basilar pneumonia Started on p.o. doxycycline, will need 5-7 days of treatment (7) Cavernous hemangioma of brain: -stable as per CT of the head and brain -Follows with neurology as an outpatient but has not seen them in some time (8) Neurofibromatosis: -, stable (9) Anxiety: (10) Depression: Psych on board recommended hydroxyzine 25mg po as needed, but pt declined to start it Pt might benefit as well from SSRI, but does not want to start it now We will try to avoid benzo due to respiratory/[employer] depression and history of opioid and marijuana abuse Patient will be encouraged to follow-up with psychiatry as outpatient (11) Seizure: -No episode (12) Gastroparesis: -Stable, has been able to tolerate p.o.diet (13) DVT prophylaxis: - Subcu heparin CODE: Full code Disposition pt is wiling to stay at [facility] -to complete her treatment, does not want to be transferred to [place] , wants to be discharged to rehab/ Patient wishes to go to [facility] only CM updated , Had OT evaluation today showed needs rehab, PT evaluation pending Admission and Anticipated Discharge Date Admission Date: March 10, 2021 Subjective Patient was very upset, frustrated that the OT person evaluated to her in the morning, left her sitting at the bedside, and never came back She she is upset with almost everybody in the hospital, including myself(not listening to her complaint, not getting adequate treatment, she has been lying in this hospital bed for 2 weeks not getting any better) Very frustrated on the nursing staff It takes her hours to get anything after requesting. Feels like she is getting charged, mistreated, neglected Says nobody made her bed, she did not get cleaned days , finally after much requesting managed to get clean up Then physical therapy showed up in the afternoon She refused PT as she was already too exhausted after sitting on the bedside for extended time, Very frustrated, tearful in evening, as she still does not have any insurance authorization to go to [facility] yet, None of the care: PT /OT /nursing was coordinated Very difficult situation, will continue to work with her closely, Told her that I will try to coordinate first thing in the morning with physical therapy so the PT note can be faxed and insurance authorization can be obtained timely. Kidney function continues to improve, patient worries about her shortness of breath, lung condition, now sign of developing pneumonia in chest x-ray. Does not have any fever or chills, Has nonproductive cough Blood pressure remains borderline systolic in the 90s heart rate in 80s/70s with no dizzy spell or lightheadedness standing up Review of Systems Review of Systems: All systems reviewed & are unremarkable except as noted in Subjective Physical Exam Physical Exam: Physical exam: General: No acute distress, alert awake oriented x3 HEENT: PERRLA, EOMI, Heart: Regular S1-S2, no carotid bruit, no JVD, bilaterally , no lower extremity edema Lungs: Diminished breath sound no wheeze or rales Abdomen: Soft nontender, no organomegaly Extremity: No rash or deformity, Neuro: No focal neurological deficit normal speech, normal visual field, Motor strength : normal both upper and lower extremity, sensation intact Psych: Alert awake oriented x3, normal affect Results & Data Results & Data ([facility]) Vital Signs (Past 12 Hours) Vital Signs Temp Pulse Pulse Pulse Resp BP Pulse Ox 03/25/21 22:00 36.8 C 91 H 18 117/71 93 03/25/21 20:15 37.0 C 106 H 18 125/86 94 03/25/21 19:31 37.1 C 72 18 96/65 L 95 03/25/21 19:18 79 18 96 03/25/21 16:00 36.6 C 80 22 104/70 95 03/25/21 15:57 79 18 96 03/25/21 11:45 99 H 18 94 (1) Acute renal failure Acute renal failure type: unspecified Qualified Code(s): N17.9 - Acute kidney failure, unspecified (2) Rhabdomyolysis Rhabdomyolysis type: non-traumatic Qualified Code(s): M62.82 - Rhabdomyolysis
[2021-03-26] MEDS: SODIUM CHLORIDE 0.65% NA SOLN 45 ML (OCEAN) SCH ×4 (02:27→21:15)
[2021-03-26] MEDS: HEPARIN SOD 5,000 UNIT/0.5 ML VIAL SQ SCH ×3 (06:04→21:15)
[2021-03-26] MEDS: guaiFENesin SUGAR FREE 200 MG/10 ML UDC PO SCH ×2 (06:04→12:16)
[2021-03-26] MEDS: LEVOTHYROXINE SODIUM 75 MCG TABLET PO SCH (06:05)
[2021-03-26] MEDS: ALBUT/IPRATROP 3MG/0.5MG NEB 3 ML VIAL INH SCH ×4 (07:35→19:56)
[2021-03-26] MEDS: ONDANSETRON INJ 2 MG/ML 2 ML VIAL IV PRN (07:44)
[2021-03-26] MEDS: hydrOXYzine HCl 25 MG TAB PO PRN (07:54)
--- NOTE | 2021-03-26 08:41 | Electrocardiogram Report ---
Test Reason : Blood Pressure : / mmHG Vent. Rate : 082 BPM Atrial Rate : 082 BPM P-R Int : 142 ms QRS Dur : 096 ms QT Int : 436 ms P-R-T Axes : 080 075 140 degrees QTc Int : 509 ms Normal sinus rhythm T wave abnormality, consider anterolateral ischemia Prolonged QT Abnormal ECG When compared with ECG of 19-MAR-2021 13:04, QT has lengthened Otherwise no significant change Confirmed by Raul Godfrey ([id number]) on 03/26/2021 8:40:45 AM Referred By: REFERRED SELF Confirmed By:Raul Godfrey
[2021-03-26] MEDS: DOXYCYCLINE HYCLATE 100 MG CAP PO SCH ×2 (08:58→21:15)
[2021-03-26] MEDS: ASPIRIN 81 MG ECTAB PO SCH (08:58)
[2021-03-26] MEDS: FLUTICASONE FUROATE 100MCG 14 PUFFS/INHALER INH SCH (08:59)
[2021-03-26] MEDS: UMECLIDINIUM/VILANTEROL 62.5/25MCG 7 PUFFS/INHALER INH SCH (08:59)
[2021-03-26] MEDS: PANTOprazole 40 MG TAB PO SCH ×2 (09:01→21:15)
[2021-03-26] MEDS: SENNA 8.6 MG TAB PO SCH (09:01)
[2021-03-26] MEDS ORDERED: LORazepam 0.5 MG/1 ML VIAL IV STA (09:22)
[2021-03-26] MEDS ORDERED: NITROGLYCERIN SL 0.4 MG/TAB TAB SL STA (09:22)
[2021-03-26] MEDS ORDERED: NITROGLYCERIN SL 0.4 MG/TAB TAB ONE (09:23)
[2021-03-26] MEDS ORDERED: METOPROLOL TARTRATE 25 MG TAB PO SCH (09:30)
--- NOTE | 2021-03-26 09:35 | Electrocardiogram Report ---
Test Reason : Blood Pressure : / mmHG Vent. Rate : 102 BPM Atrial Rate : 102 BPM P-R Int : 130 ms QRS Dur : 094 ms QT Int : 350 ms P-R-T Axes : 081 071 142 degrees QTc Int : 456 ms Poor data quality, interpretation may be adversely affected Sinus tachycardia T wave abnormality, consider anterolateral ischemia Abnormal ECG When compared with ECG of 25-MAR-2021 15:04, T-wave inversion in Anterior leads less pronounced Confirmed by Raul Godfrey ([id number]) on 03/26/2021 9:34:45 AM Referred By: REFERRED SELF Confirmed By:Raul Godfrey
[2021-03-26] MEDS: MIDODRINE HCL 2.5 MG TAB PO SCH (09:37)
[2021-03-26] MEDS: POTASSIUM CHLORIDE CRTAB 20 MEQ TABCR PO SCH ×2 (09:37→21:15)
--- NOTE | 2021-03-26 10:14 | Nephrology Progress Note ---
Date of Service March 26, 2021 Assessment & Plan (1) Rhabdomyolysis: now resolved; at admission met criteria for rhabdomyolysis by CK and urine findings (dipstick blood w/o RBC on micro): statin is likeliest culprit here, complicated by chronic hypokalemia and hypothyroidism. CK has normalized as of March 24. Complicated by stage III acute kidney injury and transaminitis (2) Acute renal failure: Severe/ stage 3 nonoliguric UNRULY; baseline creatinine 0.9. Presenting creatinine 6.1 on March 10. Creatinine improved again yesterday to 4.1; today's lab pending (3.9). In the setting of rhabdomyolysis likely multifactorial. Significant hypokalemia on presentation which is improving though still needing potassium supplementation; no other significant electrolyte issues apart from metabolic acidosis at admission resolved. Also with significant hypotension and new onset systolic heart failure. Report of oliguria prior to admission, this has thankfully not been observed here. No obstruction or other lesions on ultrasound. 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 Still with significant renal insufficiency and unclear what her new baseline will be. On repeat urine specimen and prot/creat prior to hospital d/c >> still w/ microhematuria and proteinuria, read here as 1.3 gm/day ->>Daily BMP -Avoid all NSAIDs now and at d/c -would also minimize/avoid morphine w/ her degree of renal failure and ensure that other pain meds are dosed for current degree of renal failure ->>Continue blood pressure support; no indication today for IV fluids or for Lasix DISCHARGE RECS: -lower midodrine to 5 mg bid at d/c current order for potassium 20 mEq twice daily should continue at discharge >>>NO NSAIDS; will need alternate pain mgt program >>will need weekly bmp and urine testing after d/c (to be ordered by my nursing staff) and f/u w/ me or Dr Khan in CKD clinic w/in 2-3 wks of hospital d/c -est w/ cardiology as OP; pulmonary also recommended OP pulm f/u if not already doing so (3) Hypotension: unexpected but not new. Her outpatient blood pressures run generally 90s to 100s systolic for at least the past year and longer>> ? Due to biventricular heart failure -We yesterday lowered midodrine to 5 mg 3 times daily >> did put hold parameters on midodrine today Beta-lynne has been resumed w/ chest pain for cardiology follow-up as outpatient (4) Shortness of breath: Improving/at baseline. She was satting 93% on room air but prefers to wear oxygen. cxr from 03/21 still w/ plm vasc congestion>> left lung base findi ngs concerning for pneumonia (despite exam), still with vascular congestion x- ray in the setting of severe emphysema; CXR 03/26 improved from volume standpoint -obtain sats on RA; have impression 02nc more for comfort than hypoxia at least at times (5) Anxiety: A chronic issue for her. per hospitalist. Hydroxyzine can prolong the QT interval and needs to be used with caution in COPD patients. QTc is stable after tx w/ this med, however Admission and Anticipated Discharge Date Admission Date: March 10, 2021 Subjective pt moved to telemetry this am after she developed chest pain and dyspnea while emotionally agitated and tearful; she was frustrated at not transferring to [facility]. ECG w/o ST-T wave changes. PT eval pending. she denies any cp, worsenign sob, cough, worsening edema when i evaluated her at about 11 am, after ativan and BB Review of Systems Review of Systems: All systems reviewed & are unremarkable except as noted in Subjective Physical Exam Constitutional: well developed, well nourished, + thin and cooperative; no acute distress Eyes: EOM intact bilaterally ENMT: Ears: no external ear abnormality Nose: no external nose abnormality Mouth: + dry oral mucous membranes and + edentulous Neck: no nuchal rigidity Respiratory: normal respiratory effort, + cough (dry) and able to speak in complete sentences; no respiratory distress and not tachypneic Auscultation: + diminished lung sounds (minimal air mvt); no crackles, no rales, no rhonchi and no wheezes Cardiovascular: RRR, no murmur, no edema Rate/Rhythm: regular rate and regular rhythm Heart Sounds: no murmur Extremities: + edema (trace BL ankles) Gastrointestinal (Abdomen): Inspection/Auscultation: normal bowel sounds; abdomen not distended Percussion/Palpation: abdomen soft; abdomen nontender Musculoskeletal: Extremities: + abnormal strength (Generalized weakness and notable muscle atrophy lateral upper and lower ext) Skin: no rashes, warm and dry Psychiatric: Orientation: alert and oriented x 3 Motor Behavior: + psychomotor retardation (slight) Speech: normal rate/rhythm/volume of speech Affect: + blunted affect Results & Data ([facility]) Vital Signs (Past 12 Hours) Vital Signs Temp Pulse Resp BP Pulse Ox 03/26/21 08:53 108 H 18 142/90 H 94 03/26/21 07:35 103 H 18 95 03/26/21 07:17 37.0 C 103 H 16 123/83 95 Laboratory Results 03/23/21 05:54 bmp from today reviewed Diagnostic Findings cxr today reviewed > ? L pl effusion; no other fluid issues (1) Acute renal failure Acute renal failure type: unspecified Qualified Code(s): N17.9 - Acute kidney failure, unspecified (2) Rhabdomyolysis Rhabdomyolysis type: non-traumatic Qualified Code(s): M62.82 - Rhabdomyolysis
[2021-03-26 10:19] LABS: Calcium 8.5 mg/dl (8.5-10.1); Creatinine Clr Calc Pharmacy 15.8 ml/min; Est GFR (African American) 14.2; Est GFR (Non-African American) 12.3; Potassium 3.8 mmol/L (3.5-5.1)
--- NOTE | 2021-03-26 11:16 | XRay Report ---
XR chest 1V portable HISTORY: 55 years-old Female pneumonia /CHF chronic shortness of breath with pneumonia COMPARISON: Chest radiograph 03/24/2021 TECHNIQUE: Portable AP view of the chest FINDINGS: Emphysema. Cardiac mediastinal and hilar silhouettes are unchanged. Mild bibasilar opacities, left gr eater than right. Slightly improved aeration of the left lung base. Equivocal left pleural effusion. Degenerative changes of the shoulders and spine. IMPRESSION: 1. Mild bibasilar opacities have slightly improved on the left. 2. Emphysema. ACT 112: Negative or not required by law. The above report was generated using voice recognition software. It may contain grammatical, syntax o r spelling errors. Electronically signed by: Po Santos M.D. 03/26/2021 11:15 AM
[2021-03-26] MEDS ORDERED: hydrOXYzine HCl 25 MG TAB PO PRN (11:37)
[2021-03-26] MEDS: BENZONATATE 100 MG CAPSULE PO SCH ×3 (12:16→21:15)
--- NOTE | 2021-03-26 14:05 | Hospitalist Progress Note ---
Date of Service March 26, 2021 Assessment & Plan (1) Acute renal failure: Acute renal failure on CKD stage III -secondary to rhabdomyolysis CK was 29,000 on admission. /statin induced was on Crestor: Discontinued -Creatinine elevated at 6.06 on admission, has a baseline of 0.6-0.8 as an outpatient. -Renal function continues to improve; 3.7 --Appreciate nephrology input. Volume status has been stable, Lasix has been kept on hold urine out put adequate, Avoid NSAIDs and contrast studies Patient will need weekly outpatient lab: BMP check until renal function improves to baseline Appreciate input from nephrology, patient will need weekly kidney function check on discharge, Nephrology follow-up in clinic in 4 weeks Due to generalized deconditioning will need to go to rehab after discharge from hospital Had OT eval yesterday -recommends rehab pt noted to have significant deconditioning during PT eval , tachypnic , tachycardic , per PT -pt will require rehab on discharge from hospital Hypotension SBP was 140 this AM , with Tachycardia, pt was symptomatic : SOB , Diaphoretic , chest heaviness symptoms improved after SL nitro and PRN Ativan Lopressor resumed in lower dose 12.5 mg DC Mododrine , (2) Rhabdomyolysis: Resolved, CK level normalized Statin induced-resolved now/CK level normalized Crestor discontinued/added to patient's drug allergies/adverse reaction list CK of 29,000 on admission Received IV fluids on admission as per standard treatment guidelines for rhabdomyolysis/acute renal failure Later developed volume overload, was treated with IV Lasix Volume status has been stable since, has not required any IV fluids or Lasix for last few days Clinical Lab Specialist being involved closely Elevated hepatic enzymes Secondary to rhabdomyolysis Liver function normalized with resolution of rhabdomyolysis ultrasound of the liver was unremarkable. (3) Hypokalemia: Corrected (4) CAD (coronary artery disease): -Follows with Angeline Madsen as an outpatient Chronic CHF with systolic dysfunction : echo shows CHF with sysolic dysfunction EF of 45% ( mildly reduced from prior EF or 55% on 02/21 ) Vol status stable cont to hold diuretics due to renal failure once renal function normalized pt will need either ACEI or low dose lasix for chronic CHF need to follow up with Cardiology for recommendation Patient currently appears to be in stable volume status -Continue ASA 81mg daily -Crestor discontinued for rhabdomyolysis beta lynne resumed : as pt developed tachycardia , hypertensive episode this AM (5) HLD (hyperlipidemia): Crestor discontinued for rhabdomyolysis Patient may not be a candidate for statin treatment in future for severe advanced reaction Will be followed up by her cardiology for all alternative treatment as indicated (6) COPD (chronic obstructive pulmonary disease): Speech status stable no wheeze, no shortness of breath, no hypoxia - History of smoking 25-50 pack years, currently still smoking 1/2 pack daily, started at age 11, denies need for nicotine patch -Uses O2 2L via NC at bedtime and with exertion at baseline -Continue with her usual inhalers and nebulized bronchodilator (Order modify that she can get her Neb treatment QID) -Continue oxygen supplement -Appreciate pulmonary medicine input. Follow-up as an outpatient. Chest x-ray today shows severe emphysema, improvement of pulmonary congestion, possible left basilar pneumonia Started on p.o. doxycycline, will need 5-7 days of treatment (7) Cavernous hemangioma of brain: -stable as per CT of the head and brain -Follows with neurology as an outpatient but has not seen them in some time (8) Neurofibromatosis: -, stable (9) Anxiety: (10) Depression: Psych on board recommended hydroxyzine 25mg po as needed, but pt declined to start it Pt might benefit as well from SSRI, but does not want to start it now We will try to avoid benzo due to respiratory/[employer] depression and history of opioid and marijuana abuse Patient will be encouraged to follow-up with psychiatry as outpatient (11) Seizure: -No episode (12) Gastroparesis: -Stable, has been able to tolerate p.o.diet (13) DVT prophylaxis: - Subcu heparin CODE: Full code Disposition pt will need in patient rehab on discharged from hospital PT/OT polaal appreciated referral made to [facility] to dc to rehab tomorrow if insurance auth approved Admission and Anticipated Discharge Date Admission Date: March 10, 2021 Subjective pt was upset and tearful -developed chest pain , SOB this am as tachycardic HR in 100's , SHIRA 140/80 she felt like getting a heart attack bed side ekg shows sinus tachycardia with no ST-T wave changes given Iv Ativan , and lopressor , HR and BP improved pt and her upset -why there is continued delay for her to go to [facility] was told by Thursday she should be discharged from hospital had OT eval yesterday , PT eval still pending insurance Auth can not be obtained without both PT and OT eval unable to participate in PT is am pt is transferred to medical floor PT is asked to eval pt in afternoon when she is settled down a bit has non productive cough , symptoms worsened today , worried about her pneumonia getting worse Review of Systems Review of Systems: All systems reviewed and are unremarkable except as noted below Respiratory: + cough and + dyspnea Musculoskeletal: Pain involving the muscles mostly lower extremities Psychiatric: + irritability and + panic attacks Physical Exam Physical Exam: Physical exam: General: No acute distress, alert awake oriented x3 HEENT: PERRLA, EOMI, Heart: tchycardic Lungs: Diminished breath sound no wheeze or rales Abdomen: Soft nontender, no organomegaly Extremity: No rash or deformity, Neuro: No focal neurological deficit normal speech, normal visual field, Motor strength : normal both upper and lower extremity, sensation intact Psych: Alert awake oriented x3, normal affect Results & Data Results & Data ([facility]) Vital Signs (Past 12 Hours) Vital Signs Temp Pulse Pulse Resp BP BP Pulse Ox 03/26/21 12:37 102 H 03/26/21 12:30 102 H 20 03/26/21 12:19 106 H 28 H 96/74 L 03/26/21 12:00 114 H 17 03/26/21 11:30 108 H 29 H 03/26/21 11:13 90 18 96 03/26/21 11:00 86 17 03/26/21 10:16 101 H 28 H 114/62 94 03/26/21 08:53 108 H 18 142/90 H 94 03/26/21 07:35 103 H 18 95 03/26/21 07:17 37.0 C 103 H 16 123/83 95 (1) Acute renal failure Acute renal failure type: unspecified Qualified Code(s): N17.9 - Acute kidney failure, unspecified (2) Rhabdomyolysis Rhabdomyolysis type: non-traumatic Qualified Code(s): M62.82 - Rhabdomyolysis
[2021-03-26] MEDS: guaiFENesin/DEXTROM SYRUP 100MG/10MG 5ML UDC PO PRN (14:49)
[2021-03-26] MEDS: LORazepam 0.5 MG TAB PO PRN (16:52)
[2021-03-26] MEDS: ACETAMINOPHEN 325 MG TAB PO PRN (18:00)
[2021-03-26] MEDS ORDERED: PREGABALIN 75 MG CAP PO STA (20:54)
[2021-03-26] MEDS: traZODone HCL 100 MG TAB PO SCH (21:15)
[2021-03-27] MEDS: guaiFENesin/DEXTROM SYRUP 100MG/10MG 5ML UDC PO PRN (00:56)
[2021-03-27] MEDS: ALBUTEROL HFA 8 GM INHALER INH PRN (01:00)
[2021-03-27] MEDS: SODIUM CHLORIDE 0.65% NA SOLN 45 ML (OCEAN) SCH ×2 (05:54→07:49)
[2021-03-27] MEDS: HEPARIN SOD 5,000 UNIT/0.5 ML VIAL SQ SCH (05:54)
[2021-03-27] MEDS: LEVOTHYROXINE SODIUM 75 MCG TABLET PO SCH (05:54)
[2021-03-27 06:24] LABS: BUN Creatinine Ratio 5.5 (10-20); Calcium 8.2 mg/dl (8.5-10.1); Creatinine Clr Calc Pharmacy 15.5 ml/min; Est GFR (African American) 14.3; Est GFR (Non-African American) 12.3; Potassium 3.8 mmol/L (3.5-5.1)
[2021-03-27] MEDS: ALBUT/IPRATROP 3MG/0.5MG NEB 3 ML VIAL INH SCH ×2 (07:09→11:10)
[2021-03-27] MEDS: LORazepam 0.5 MG TAB PO PRN ×2 (07:49→12:03)
[2021-03-27] MEDS: FLUTICASONE FUROATE 100MCG 14 PUFFS/INHALER INH SCH (07:51)
[2021-03-27] MEDS: DOXYCYCLINE HYCLATE 100 MG CAP PO SCH (07:51)
[2021-03-27] MEDS: UMECLIDINIUM/VILANTEROL 62.5/25MCG 7 PUFFS/INHALER INH SCH (07:51)
[2021-03-27] MEDS: ASPIRIN 81 MG ECTAB PO SCH (07:52)
[2021-03-27] MEDS: METOPROLOL SUCC 25MG EXT REL TAB PO SCH (07:53)
[2021-03-27] MEDS: PANTOprazole 40 MG TAB PO SCH (07:54)
[2021-03-27] MEDS: BENZONATATE 100 MG CAPSULE PO SCH (07:54)
[2021-03-27] MEDS: SENNA 8.6 MG TAB PO SCH (07:55)
[2021-03-27] MEDS: POTASSIUM CHLORIDE CRTAB 20 MEQ TABCR PO SCH (07:55)
[2021-03-27] MEDS: PROMETHAZINE HCL 6.25 MG in SODIUM CHLORIDE 0.9% 50 ML IV PRN (08:15)
[2021-03-27] MEDS ORDERED: LORazepam 0.5 MG TAB PO STA (12:40)
[2021-03-27] MEDS ORDERED: ALBUT/IPRATROP 3MG/0.5MG NEB 3 ML VIAL NEB PRN (12:56)
--- NOTE | 2021-03-27 13:18 | Discharge Summary ---
Date of Service March 27, 2021 Principal Diagnosis Acute renal failure due to rhabdomyolysis-improved Rhabdomyolysis possible statin induced-resolved Advanced COPD chronic respiratory failure-chronic Chronic CHF with systolic dysfunction Discharge Exam Physical exam: General: No acute distress, alert awake oriented x3 HEENT: PERRLA, EOMI, Heart: Regular S1-S2, no carotid bruit, no JVD, no lower extremity edema Lungs: Clear to auscultate, no wheeze or rales Abdomen: Soft nontender, no organomegaly Extremity: No cyanosis, no deformity, normal strength 5 out of 5 with upper and lower Neuro: No focal neurological deficit normal speech, normal visual field, Motor strength : normal both upper and lower extremity, sensation intact Psych: Alert awake oriented x3, normal affect Discharge Data Allergies Allergy/AdvReac Type Severity Reaction Status Date / Time adhesive Allergy Unknown BANDAIDS Verified 03/10/21 15:01 SKIN ABRASION Sulfa (Sulfonamide Allergy Unknown HIVES Verified 03/10/21 15:01 Antibiotics) tramadol Allergy Unknown . Verified 03/10/21 15:01 rosuvastatin [From Crestor] AdvReac Intermediate Weakness Verified 03/21/21 13: 56 meperidine AdvReac Unknown MOOD SWINGS Verified 03/10/21 15:01 Consultations 03/10/21 15:01 ED Decision to Admit Stat 03/10/21 18:23 Consult Nephrology Routine 03/14/21 15:37 Consult Psychiatry Routine 03/18/21 07:53 Consult Pulmonology Routine Ordered Studies 03/10/21 13:13 CT head/brain wo con Stat 03/11/21 07:27 US renal/blad retro comp Stat 03/12/21 09:30 US liver Routine Hospital Course (1) Acute renal failure: Acute renal failure on CKD stage III -secondary to rhabdomyolysis CK was 29,000 on admission. /statin induced was on Crestor: Discontinued -Creatinine elevated at 6.06 on admission, has a baseline of 0.6-0.8 as an outpatient. -Renal function continues to improve; 3.7 -3.4 --Appreciate nephrology input. Volume status has been stable, Lasix has been kept on hold urine out put adequate, Avoid NSAIDs and contrast studies Patient will need weekly outpatient lab: BMP check until renal function improves to baseline Appreciate input from nephrology, patient will need weekly kidney function check on discharge, Nephrology follow-up in clinic in 4 weeks Patient did not receive insurance authorization for [facility]. Wants to be discharged home today Blood pressure/hypotension. Resolved, blood pressure remained stable, episode of tachycardia noted Toprol-XL resumed 25 mg p.o. daily(was on 37.5 mg daily) Hyperthyroidism: TSH very low with elevated T4 Levothyroxine dose adjusted/reduced to 50 MCG daily, was on 75 MCG daily Repeat TSH in 6 weeks (2) Rhabdomyolysis: Resolved, CK level normalized Statin induced-resolved now/CK level normalized Crestor discontinued/added to patient's drug allergies/adverse reaction list CK of 29,000 on admission Received IV fluids on admission as per standard treatment guidelines for rhabdomyolysis/acute renal failure Later developed volume overload, was treated with IV Lasix Volume status has been stable since, has not required any IV fluids or Lasix for last few days Die Caster being involved closely Elevated hepatic enzymes Secondary to rhabdomyolysis Liver function normalized with resolution of rhabdomyolysis ultrasound of the liver was unremarkable. (3) Hypokalemia: Corrected (4) CAD (coronary artery disease): -Follows with Angeline Madsen as an outpatient Chronic CHF with systolic dysfunction : echo shows CHF with sysolic dysfunction EF of 45% ( mildly reduced from prior EF or 55% on 02/21 ) Vol status stable cont to hold diuretics due to renal failure once renal function normalized pt will need either ACEI or low dose lasix for chronic CHF need to follow up with Cardiology for recommendation Patient currently appears to be in stable volume status -Continue ASA 81mg daily -Crestor discontinued for rhabdomyolysis beta lynne resumed : Discharged on Toprol-XL 25 mg daily (5) HLD (hyperlipidemia): Crestor discontinued for rhabdomyolysis Patient may not be a candidate for statin treatment in future for severe advanced reaction Will be followed up by her cardiology for all alternative treatment as indicated (6) COPD (chronic obstructive pulmonary disease): Speech status stable no wheeze, no shortness of breath, no hypoxia - History of smoking 25-50 pack years, currently still smoking 1/2 pack daily, started at age 11, denies need for nicotine patch -Uses O2 2L via NC at bedtime and with exertion at baseline -Continue with her usual inhalers and nebulized bronchodilator (Order modify that she can get her Neb treatment QID) -Continue oxygen supplement -Appreciate pulmonary medicine input. Follow-up as an outpatient. Chest x-ray today shows severe emphysema, improvement of pulmonary congestion, possible left basilar pneumonia Started on p.o. doxycycline, will need 5-7 days of treatment (7) Cavernous hemangioma of brain: -stable as per CT of the head and brain -Follows with neurology as an outpatient but has not seen them in some time (8) Neurofibromatosis: -, stable (9) Anxiety: (10) Depression: Psych on board recommended hydroxyzine 25mg po as needed, but pt declined to start it Pt might benefit as well from SSRI, but does not want to start it now Patient will be encouraged to follow-up with psychiatry as outpatient (11) Seizure: -No episode (12) Gastroparesis: -Stable, has been able to tolerate p.o.diet (13) DVT prophylaxis: - Subcu heparin CODE: Full code Disposition Patient did not receive insurance authorization for [facility] today, Very upset with over all hospital stay, once to go home, plans to follow-up with [facility] in [place] after discharge Patient has stable blood pressure, lab work looks acceptable, discharged home today with home health Total Time Total Time Spent Total Time Spent (In Minutes): Approximately 35 minutes Total Time Includes: Examination of the Patient, Discharge Planning and Medication Reconciliation Discharge Plan Discharge Items Patient Disposition: Home - Home Health Services Reason For Visit: ACUTE RENAL FAILURE, RHABDOMYOLYSIS Discharge Diagnosis: Acute renal failure due to rhabdomyolysis-improved Rhabdomyolysis possible statin induced-resolved Advanced COPD chronic respiratory failure-chronic Chronic CHF with systolic dysfunction Condition on Discharge: Good Activity: Resume your previous activity Non-emergency contact: Primary Care Provider Call non-emergency contact if: you have any medication questions Follow-up/Referrals: Naveed Khan MD [Surgeon] - 04/12/21 3:00 pm (Date & Time 04/12/2021 3:00 PM Provider Naveed Khan MD Department Nephrology, [facility] ) Mónica Chamberlain MD [Physician] - (Date & Time 04/02/2021 2:00 PM Provider Mónica Chamberlain MD Department General Internal Medicine [facility] ) Angeline Madsen PA-C [Physician [employer]] - (Cardiology follow up in 4 weeks ) Diet: Heart Healthy Addtl Attending Provider Instructions: Please take all medications as instructed on discharge list below. It is recommended that you follow-up with your primary care physician within 1-2 weeks of hospital discharge to ensure you are still doing well. DO NOT TAKE CRESTOR Please call if you have any questions or problems. You can reach a [facility] hospitalist on duty at [facility] 24 hours a day by calling [phone] Antibiotic : take Doxycycline for 5 more days : Pneumonia Repeat Chest Xray in 1 week : left basilar pneumonia /end stage COPD Lab work: Basic metabolic panel in a 1 week and weekly untill seen by Die Caster Follow-up with nephrology as scheduled levothyroxine dose reduced to 50 mcg daily ( was on 75 mcg daily ) repeat TSH level /thyroid function test in 6 weeks Metoprolol XL dose reduced to 25 mg daily Discharge recommendations: weekly basic metabolic panel checked, nephrology clinic will order for that Follow up with [facility] Cardiology in 4 weeks need to establish with [facility] clinic Call your Primary Care doctor if any of the following symptoms or problems start or get worse: * Shortness of breath or difficulty breathing * Wake up at night short of breath * Chest pain * Cough * Swelling of your hands, feet, or legs * More fatigued or tired with your normal activity * Palpitations - sudden fast heart beats WEIGHT * Weigh yourself every morning after using the bathroom. * Use the same scale. * Wear the same amount of clothing. * Write your weight down on a chart. * Call your Primary Care doctor if you gain more than 2-3 pounds in 1-2 days. MEDICATIONS * Use this discharge instruction sheet for medication instructions. * Take your medications at the time your doctor ordered. * Do not skip a dose of your medicines. * If you miss a dose of medicine, take it as soon as possible, but DO NOT DOUBLE A DOSE. * Read your medicine information when you get home. * Know all of the side effects of your medicine. If in doubt, ask your pharmacist * Call your Primary Care doctor's office if you have any side effects. * Be sure all of your doctors know what medicine and herbs you take (including cold, flu, and herbal medicine). Take the following with you to your follow-up doctor appointments: * Weight Chart * Medication List * List of questions Do not drink excessive alcohol, beer or wine. Addtl Set Staff Fitter Provider Instructions: Do not take group of medications belonging to NSAIDs group -can cause worsening of your kidney function. List Of these medications includes but not limited to: Diclofenac Ibuprofen, Motrin, Advil Toradol,ketorolac Naproxen, Aleve, Naprosyn You can take Tylenol as needed for pain or fever When buying [id number] pain medications please consult with pharmacy if you are not sure regarding ingredients, as a lot of the pain medications have combination of NSAIDs and Tylenol. Pending Studies at Discharge: No Stand-Alone Forms: My [facility] Events, Smoking Cessation Medications and DC Order Prescriptions: New doxycycline hyclate 100 mg Capsule 100 mg PO BID Qty: 10 RF: 0 potassium chloride [Klor-Con M20] 20 mEq Tablet,Er Particles/Crystals 20 meq PO BID Qty: 60 RF: 0 benzonatate [Tessalon Perles] 100 mg Capsule 100 mg PO TID PRN (Reason: cough) 30 Days Qty: 90 RF: 0 levothyroxine 50 mcg capsule 50 mcg PO DAILY Qty: 30 RF: 0 metoprolol succinate 25 mg capsule,sprinkle,ER 24hr 25 mg PO DAILY Qty: 30 RF: 2 lorazepam [Ativan] 0.5 mg tablet 0.5 mg PO Q12H PRN (Reason: anxiety) Qty: 20 RF: 0 Continued albuterol sulfate [Ventolin HFA] 90 mcg/actuation Hfa Aerosol Inhaler 2 puff INHALATION Q4H PRN (Reason: Shortness Of Breath) Qty: 0 RF: 0 omeprazole magnesium [Prilosec OTC] 20 mg Tablet,Delayed Release (Dr/Ec) 20 mg PO BID Qty: 0 RF: 0 ipratropium-albuterol 0.5 mg-3 mg(2.5 mg base)/3 mL Solution For Nebulization 3 ml INHALATION QID PRN (Reason: copd) Qty: 0 RF: 0 tizanidine 4 mg Tablet 4 mg PO BID PRN (Reason: Muscle Spasm) Qty: 0 RF: 0 aspirin 81 mg Tablet,Delayed Release (Dr/Ec) 81 mg PO QAM Qty: 0 RF: 0 trazodone 50 mg Tablet 25 mg PO HS RF: 0 trazodone 100 mg Tablet 100 mg PO HS RF: 0 acetaminophen [Tylenol Extra Strength] 500 mg Tablet 500 mg PO Q6H PRN (Reason: Pain) RF: 0 prednisone 10 mg tablet 10 mg PO UD PRN (Reason: Rescue) RF: 0 ondansetron HCl [Zofran] 4 mg Tablet 4 mg PO QAM PRN (Reason: Nausea) RF: 0 Trelegy Ellipta 100-62.5-25 mcg Blister With Device 1 inh INHALATION QAM RF: 0 pregabalin 75 mg capsule 75 mg PO BID RF: 0 Discontinued levothyroxine [Synthroid] 75 mcg Tablet 75 mcg PO QAM Qty: 0 RF: 0 ibuprofen 200 mg Tablet 600 mg PO Q6H PRN (Reason: Pain) RF: 0 metoprolol succinate 25 mg 37.5 mg PO UD RF: 0 rosuvastatin 40 mg tablet 40 mg PO DAILY RF: 0 Discharge Orders: Discharge Order (Routine); Ordered 03/27/21 Ordered By: Natalie Royal Admission Data Admit Date/Time: 03/10/21 15:16 Attending Provider: Natalie Royal Admit Provider: Prince Ugalde Primary Care Provider: Jayme Chamberlain Other Providers: Jonatan Olvera ; [facility] ; [facility] ; Prince Ugalde ; Naveed Khan ; Antonia Stewart ; Lex Modi Other Interventions: Discharge Summary Assessment (RN) Last Done: 03/27/21 12:35
== END 2021-03-27 13:25 | disposition home health service (06) | DRG 682 ==
LOC: ED 12:35 → SUATTDRO 15:16 → 2N 15:16 → 3N 03-25 20:22 → 1E 03-26 09:25 → 2S 03-26 19:07

== ENCOUNTER 2022-03-10 03:46 | Inpatient (IN) ==
--- NOTE | 2022-03-10 04:32 | Emergency Department Note ---
Impression & Plan Influenza A, Acute respiratory distress, Acute exacerbation of chronic obstructive pulmonary disease Admit to the [facility] ED Provider Note NAME: ANISHA KINGSLEY AGE: 56 SEX: F ARRIVES VIA: Ambulance INFORMANT: Patient ED PROVIDER(S): Sho Glass DO CHIEF COMPLAINT: Shortness of breath and fever PLAN: Disposition: Admit to the [facility] Condition: Guarded MEDICAL DECISION MAKING: This is a 56-year-old female patient with history of COPD who presents to the emergency department with increasing shortness of breath cough, and fever. The patient was brought to the emergency department on CPAP by EMS maintaining O2 saturations. She was given IV acetaminophen by EMS and her temp came down by the time she reached the emergency department. She was switched over to BiPAP. She had mild leukocytosis with a normal-appearing chest x-ray. Influenza A was positive. Covid testing was negative. Patient had increased oxygen r equirements and was maintained on BiPAP. I suggested we use IV Solu-Medrol as the patient had been wheezing quite a bit earlier but used her own DuoNeb treatment at home. She refused steroids stating that she had been told in the past she should not receive them because of her kidneys. I discussed the case with the [facility]ist and they will evaluate for further management. Triage Nursing notes reviewed and agree with them. Additional history obtained from EMS Prior medical records reviewed Vital Signs: reviewed and unremarkable Differential diagnosis: Pneumonia, bronchitis, COVID-19, influenza, COPD exacerbation ER treatment provided: Diagnostics interpreted by me: ECG: Normal sinus rhythm at a rate of 100 with PVCs. There is no obvious ischemia noted. Cardiac Monitoring: Normal sinus rhythm ED Laboratory studies: See below Imaging studies: See below HPI: 56/F arrives for evaluation of shortness of breath and fever. Patient explains that she developed increasing shortness of breath 3 days ago. She then developed a nonproductive cough and a fever over the past 24 hours. Patient has been vaccinated and booster against COVID-19. She tried using a DuoNeb treatment at home but got no relief of her increasing shortness of breath. EMS administered Tylenol for a fever of 103.5. Upon arrival here in the emergency department, the fever has subsided. ROS: See above HPI for pertinent positives & negatives. A total of 10 systems reviewed and were otherwise negative. PAST MEDICAL HISTORY:COPD PAST SURGICAL HISTORY:See Below FAMILY HISTORY:See Below SOCIAL HISTORY:The patient still smokes 5 cigarettes/day HOME MEDICATIONS:See Below ALLERGIES:See Below VITALS:See Below PHYSICAL EXAMINATION: HEENT: Head - normocephalic and atraumatic. Pupils are equal, round, and reactive to light. Extraocular eye muscles are intact, and sclera are anicteric. Nose - moist nasal mucosa without discharge. Mouth - moist buccal mucosa. Oropharynx is nonerythematous and there is no tonsillar exudate or edema noted. Neck: Supple; no JVD or cervical lymphadenopathy Heart: Regular rate and rhythm. There is a normal S1 and S2 with no murmurs, clicks, or gallops appreciated. Lungs: Manage breath sounds in all lung jerry with rhonchi at both bases. Abdomen: Soft, completely nontender, nondistended, with good bowel sounds. There are no palpable pulsatile masses or hepatosplenomegaly. There is no guarding, rigidity, or rebound noted. Extremities: No evidence of cyanosis, clubbing, or edema. There are easily palpable peripheral pulses. Skin: warm and dry with good turgor and no rashes. ED COURSE: Times/Reassessments: 0400: The patient was evaluated in room A3. A complete history and physical was performed. Laboratory studies were drawn as above. Septic protocol was completed. A Covid/influenza/RSV test was obtained. A portable chest x-ray was performed. A twelve-lead EKG was obtained. An order was placed for continuous cardiac monitoring. Patient was in a normal sinus rhythm at a rate of 88. I ordered IV Solu-Medrol but the patient refused stating that would affect her kidneys and she was told that she should never take steroids. Sho Glass DO Past Med/Surg History Social History Smoking Status: Current every day smoker Tobacco Type: Cigarettes Results & Data (ED) Vital Signs Vital Signs - 24 hr 03/10/22 03:56 03/10/22 03:58 03/10/22 04:08 Temperature 37.5 C Temperature Source Oral Pulse Rate 79 52 L 103 H Pulse Rate from SpO2 Sensor Respiratory Rate 22 19 38 H Respiratory Effort / Characteristics Short of Breath Labored Respiratory Depth Deep Deep Respiratory Pattern Tachypnea Tachypnea Blood Pressure 122/99 122/99 Blood Pressure Mean 106 106 Pulse Oximetry 98 99 97 Oxygen Delivery Method BiPAP BiPAP Fraction of Inspired Oxygen 40 Sepsis Recent Fever Within 48 Hours Yes Sepsis New/Unexplained Change in Mental Status No Sepsis Action Taken by Nursing No Action Required 03/10/22 04:10 03/10/22 04:18 03/10/22 04:22 Temperature Temperature Source Pulse Rate Pulse Rate from SpO2 Sensor Respiratory Rate Respiratory Effort / Characteristics Labored Respiratory Depth Respiratory Pattern Blood Pressure Blood Pressure Mean Pulse Oximetry 100 100 Oxygen Delivery Method BiPAP BiPAP BiPAP Fraction of Inspired Oxygen Sepsis Recent Fever Within 48 Hours Sepsis New/Unexplained Change in Mental Status Sepsis Action Taken by Nursing 03/10/22 04:25 03/10/22 04:31 03/10/22 04:40 Temperature Temperature Source Pulse Rate 80 97 H Pulse Rate from SpO2 Sensor 76 Respiratory Rate 35 H 27 H Respiratory Effort / Characteristics Accessory Muscle Use Labored Short of Breath Labored Respiratory Depth Deep Respiratory Pattern Gasping Rapid/Deep Tachypnea Blood Pressure 97/73 L Blood Pressure Mean 81 Pulse Oximetry 99 98 Oxygen Delivery Method BiPAP Fraction of Inspired Oxygen 30 Sepsis Recent Fever Within 48 Hours Sepsis New/Unexplained Change in Mental Status Sepsis Action Taken by Nursing 03/10/22 05:00 03/10/22 05:30 03/10/22 06:00 Temperature Temperature Source Pulse Rate 79 90 88 Pulse Rate from SpO2 Sensor Respiratory Rate 27 H 23 19 Respiratory Effort / Characteristics Labored Labored Respiratory Depth Respiratory Pattern Blood Pressure 103/69 122/69 117/75 Blood Pressure Mean 80 86 89 Pulse Oximetry 95 94 97 Oxygen Delivery Method BiPAP BiPAP BiPAP Fraction of Inspired Oxygen Sepsis Recent Fever Within 48 Hours Sepsis New/Unexplained Change in Mental Status Sepsis Action Taken by Nursing 03/10/22 06:58 Temperature Temperature Source Pulse Rate 88 Pulse Rate from SpO2 Sensor Respiratory Rate 23 Respiratory Effort / Characteristics Spontaneous Short of Breath Respiratory Depth Normal Respiratory Pattern Regular Blood Pressure Blood Pressure Mean Pulse Oximetry 98 Oxygen Delivery Method Fraction of Inspired Oxygen 30 Sepsis Recent Fever Within 48 Hours Sepsis New/Unexplained Change in Mental Status Sepsis Action Taken by Nursing Laboratory Data Result diagrams: 03/10/22 04:37 03/10/22 04:37 Lab Results 03/10/22 03/10/22 03/10/22 Range/Units 04:00 04:13 04:37 WBC 5.97 (4.8-10.8) K/uL RBC 3.99 L (4.2-5.4) M/uL Hgb 12.7 (12.0-16.0) g/dL Hct 37.7 (37-47) % MCV 94.5 (80-100) fL MCH 31.8 (25-34) pg MCHC 33.7 (32-36) g/dL RDW Std Deviation 46.2 (36.4-46.3) fL RDW Coeff of Akiko 13.3 (11.5-14.5) % Plt Count 174 (130-400) K/uL MPV 10.7 H (7.4-10.4) fL Immature Gran % (Auto) 0.0 % Neut % (Auto) 80.8 % Lymph % (Auto) 12.1 % [place] % (Auto) 6.9 % Eos % (Auto) 0.0 % Baso % (Auto) 0.2 % Neut # (Auto) 4.83 (1.4-6.5) K/uL Lymph # (Auto) 0.72 L (1.2-3.4) K/uL [place] # (Auto) 0.41 (0.11-0.59) K/uL Eos # (Auto) 0.00 (0-0.5) K/uL Baso # (Auto) 0.01 (0-0.2) K/uL Immature Gran # (Auto) 0.00 (0.00-0.02) K/uL PT (9.0-12.0) Seconds INR (0.9-1.1) APTT (21.0-31.0) Seconds PTT Ratio Sodium (136-145) mmol/L Potassium (3.5-5.1) mmol/L Chloride (98-107) mmol/L Carbon Dioxide (21-32) mmol/L Anion Gap (3-11) BUN (6-23) mg/dl Creatinine (0.6-1.2) mg/dl Est Cr Clr Drug Dosing ml/min Est GFR ( Amer) ml/min Est GFR (Non-Af Amer) ml/min BUN/Creatinine Ratio (10-20) Glucose (70-99(Fasting)) mg/dl Lactate 0.8 (0.4-2.0) mmol/L Calcium (8.5-10.1) mg/dl Magnesium (1.7-2.4) mg/dl Total Bilirubin (0.2-1.0) mg/dl AST (13-39) U/L ALT (7-52) U/L Alkaline Phosphatase (34-104) U/L Total Protein (6.0-8.3) gm/dl Albumin (3.4-5.0) gm/dl Globulin (2.5-4.0) gm/dl Albumin/Globulin Ratio (0.9-2) SARS-CoV-2 (PCR) NEGATIVE (Negative) Influenza Type A (PCR) Positive A* (Neg) Influenza Type B (PCR) Negative (Neg) RSV (RT-PCR) Negative (Neg) 03/10/22 03/10/22 Range/Units 04:37 04:37 WBC (4.8-10.8) K/uL RBC (4.2-5.4) M/uL Hgb (12.0-16.0) g/dL Hct (37-47) % MCV (80-100) fL MCH (25-34) pg MCHC (32-36) g/dL RDW Std Deviation (36.4-46.3) fL RDW Coeff of Akiko (11.5-14.5) % Plt Count (130-400) K/uL MPV (7.4-10.4) fL Immature Gran % (Auto) % Neut % (Auto) % Lymph % (Auto) % [place] % (Auto) % Eos % (Auto) % Baso % (Auto) % Neut # (Auto) (1.4-6.5) K/uL Lymph # (Auto) (1.2-3.4) K/uL [place] # (Auto) (0.11-0.59) K/uL Eos # (Auto) (0-0.5) K/uL Baso # (Auto) (0-0.2) K/uL Immature Gran # (Auto) (0.00-0.02) K/uL PT 10.9 (9.0-12.0) Seconds INR 1.0 (0.9-1.1) APTT 35.1 H (21.0-31.0) Seconds PTT Ratio 1.3 Sodium 135 L (136-145) mmol/L Potassium 3.3 L (3.5-5.1) mmol/L Chloride 104 (98-107) mmol/L Carbon Dioxide 25 (21-32) mmol/L Anion Gap 6 (3-11) BUN 9 (6-23) mg/dl Creatinine 1.22 H (0.6-1.2) mg/dl Est Cr Clr Drug Dosing 46.8 ml/min Est GFR ( Amer) 56.9 ml/min Est GFR (Non-Af Amer) 49.1 ml/min BUN/Creatinine Ratio 7.4 L (10-20) Glucose 142 H (70-99(Fasting)) mg/dl Lactate (0.4-2.0) mmol/L Calcium 8.2 L (8.5-10.1) mg/dl Magnesium 1.8 (1.7-2.4) mg/dl Total Bilirubin 0.3 (0.2-1.0) mg/dl AST 12 L (13-39) U/L ALT 5 L (7-52) U/L Alkaline Phosphatase 45 (34-104) U/L Total Protein 6.5 (6.0-8.3) gm/dl Albumin 3.6 (3.4-5.0) gm/dl Globulin 2.9 (2.5-4.0) gm/dl Albumin/Globulin Ratio 1.2 (0.9-2) SARS-CoV-2 (PCR) (Negative) Influenza Type A (PCR) (Neg) Influenza Type B (PCR) (Neg) RSV (RT-PCR) (Neg) Administered Medications Potassium Chloride (K Pete / Wtr) 10 meq in 100 mls @ 100 mls/hr IV Q1H STA; Protocol Stop: 03/10/22 07:38 Last Admin: 03/10/22 06:46 Dose: Not Given Documented by: [id number] Discontinued Medications Methylprednisolone (Methylprednisolone 125 Mg/2 Ml Vial) 125 mg IV NOW STA Stop: 03/10/22 04:39 Last Admin: 03/10/22 04:46 Dose: Not Given Documented by: [id number] Oseltamivir Phosphate (Oseltamivir Phosphate 75 Mg Cap) 75 mg PO NOW STA; Protocol Stop: 03/10/22 06:39 Last Admin: 03/10/22 06:45 Dose: 75 mg Documented by: [id number] Discharge Plan Visit Data Chief Complaint: Shortness of Breath/Dyspnea Stated Complaint: Fever, SOB ED Provider: Sho Glass Discharge Problem: Influenza A, Acute respiratory distress, Acute exacerbation of chronic obstructive pulmonary disease Forms Stand Alone Forms: My [facility] Referrals Referrals: PCP,NO [Physician] -
[2022-03-10] MEDS ORDERED: methylPREDNISolone 125 MG/2 ML VIAL IV STA (04:38)
[2022-03-10 04:53] LABS: Basophils # (auto) 0.01 K/uL (0-0.2); Basophils % (auto) 0.2 %; Hematocrit (blood only) 37.7 % (37-47); Hemoglobin 12.7 g/dL (12.0-16.0); Lymphocytes # (auto) 0.72 K/uL (1.2-3.4); Lymphocytes % (auto) 12.1 %; Mean Corpuscular Hemoglobin 31.8 pg (25-34); Mean Corpuscular Hgb Conc 33.7 g/dL (32-36); Mean Corpuscular Volume 94.5 fL (80-100); Mean Platelet Volume 10.7 fL (7.4-10.4); Monocytes # (auto) 0.41 K/uL (0.11-0.59); Monocytes % (auto) 6.9 %; Neutrophils # (auto) 4.83 K/uL (1.4-6.5); Neutrophils % (auto) 80.8 %; Platelet Count 174 K/uL (130-400); RDW Coefficient of Variation 13.3 % (11.5-14.5); RDW Standard Deviation 46.2 fL (36.4-46.3); Red Blood Count 3.99 M/uL (4.2-5.4); White Blood Count 5.97 K/uL (4.8-10.8)
[2022-03-10 05:02] LABS: Influenza B virus by PCR Negative (Neg); RSV by PCR Negative (Neg); SARS CoV2 RNA(COVID-19) InHosp NEGATIVE (Negative)
[2022-03-10 05:04] LABS: Partial Thromboplastin Ratio 1.3; Partial Thromboplastin Time 35.1 Seconds (21.0-31.0); Prothrombin Time 10.9 Seconds (9.0-12.0)
[2022-03-10 05:12] LABS: Albumin Globulin Ratio 1.2 (0.9-2); Albumin Level 3.6 gm/dl (3.4-5.0); BUN Creatinine Ratio 7.4 (10-20); Bilirubin,Total 0.3 mg/dl (0.2-1.0); Calcium 8.2 mg/dl (8.5-10.1); Creatinine Clr Calc Pharmacy 46.8 ml/min; Est GFR (African American) 56.9 ml/min; Est GFR (Non-African American) 49.1 ml/min; Globulin 2.9 gm/dl (2.5-4.0); Magnesium 1.8 mg/dl (1.7-2.4); Potassium 3.3 mmol/L (3.5-5.1); Total Protein 6.5 gm/dl (6.0-8.3)
[2022-03-10 05:49] LABS: Influenza A virus by PCR Positive (Neg)
[2022-03-10] MEDS ORDERED: OSELTAMIVIR PHOSPHATE 75 MG CAP PO STA (06:38)
[2022-03-10] MEDS ORDERED: POTASSIUM CHLORIDE / WTR 10 MEQ/100 ML PLCT IV STA (06:39)
[2022-03-10 07:24] LABS: Allen Test Pos (Pos); HCO3 ABG 26 mmol/L (19-24); Oxygen Saturation ABG 98.4 % (90-95); PCO2 ABG 46 mmHg (35-46); PO2 ABG 122 mmHg (80-95); pH ABG 7.37 (7.35-7.45)
--- NOTE | 2022-03-10 08:19 | XRay Report ---
XR chest 1V portable CLINICAL HISTORY: SEPSIS TECHNIQUE: Single frontal radiograph of the chest was obtained. Comparison: None available at the time of this dictation. FINDINGS: No lines and tubes are seen. The cardiomediastinal silhouette is normal. The lungs are clear. No evid ence of pleural effusion or pneumothorax. IMPRESSION: No acute chest disease. ACT 112: Negative or not required by law. Electronically signed by: Jose Antonio Doll M.D. 03/10/2022 8:18 AM
[2022-03-10] MEDS ORDERED: XOPENEX/ATROVENT 1.25mg/0.5MG NEB COMBO NEB STA (08:21)
[2022-03-10] MEDS ORDERED: IPRATROPIUM BROMIDE NEB SOLN 0.02% 2.5 ML VIAL ONE (08:34)
[2022-03-10] MEDS ORDERED: LEVALBUTEROL 1.25MG/0.5ML NEB ONE (08:34)
--- NOTE | 2022-03-10 09:44 | History and Physical Report ---
DATE OF ADMISSION: 03/10/2022. CHIEF COMPLAINT: Shortness of breath. HISTORY OF PRESENT ILLNESS: This 56-year-old female with past medical history significant for hypothyroidism, hyperlipidemia, COPD on home oxygen 2lts, history of chronic diastolic congestive heart failure, history of cerebellar hemangioma, history of pericardial effusion, history of irritable bowel syndrome with constipation, history of gastroparesis, vitamin D deficiency, chronic kidney disease stage III, degenerative disk disease, generalized osteoarthritis, chronic pain, ongoing tobacco abuse, smokes five cigarettes every day, CAD status post stent placement, mixed incontinence, generalized anxiety disorder, depression, statin intolerance, lives at home, comes with shortness of breath. Shortness of breath has been going since last Thursday, got progressively worse and also having cough and fever since last Thursday. Today, temperature was 103. Because of ongoing symptoms, she called EMS and EMS placed her on CPAP brought to the hospital.In ER placed On BiPAP she is saturating okay. Her labs were okay except for potassium of 3.3. She is vaccinated for COVID and her COVID is negative but influenza A PCR came back positive. Somewhat tachypneic. The patient does not want the steroids, because she says the steroids is going to damage her kidneys. Denies any chest pain, has some headache, no blurred visions. Has some runny nose. No sore throat. No nausea, no abdominal pain. Normal bowel and bladder movements. ALLERGIES: TRAMADOL, CRESTOR, DEMEROL, IBUPROFEN, MEPERIDINE, NSAIDS, SULFA ANTIBIOTICS. PAST MEDICAL HISTORY: As mentioned above. PAST SURGICAL HISTORY: , colonoscopy, conization of cervix, EGD, EGD with biopsy, injection of lumbar cervical spine, laparoscopic diagnostic for fertility problems, ligation of oviduct, rectal-vaginal fistula, tonsillectomy, removal of the left wrist ganglion, repair of incisional hernia, thoracotomy with repair of the lung or pneumothorax. MEDICATIONS: As per [facility], patient is on Repatha subcutaneous every month, Synthroid 75 mcg p.o. daily, Zanaflex 2 mg p.o. t.i.d. p.r.n., metoprolol succinate 25 mg in a.m. and 12.5 mg in p.m., Ativan 0.5 mg p.o. daily p.r.n., cyanocobalamin 1000 mcg injection every 30 days, calcium tablet daily, vitamin C 500 mg daily, vitamin D 50 mcg daily, folic acid 1 mg daily, DuoNebs q.i.d. p.r.n., pregabalin 75 mg p.o. t.i.d., albuterol HFA 2 puffs every 4 hours p.r.n., Flovent HFA 110 mcg 2 puffs b.i.d., Stiolto Respimat 2 puffs daily, trazodone 100 mg p.o. at bedtime, omeprazole 20 mg p.o. b.i.d., Zofran 4 mg p.o. q. 8 hours p.r.n., aspirin 81 mg p.o. daily. FAMILY HISTORY: Significant for mother has rheumatoid arthritis; father has NM, stroke; aunt has colon cancer, brother has diabetes, sister has diabetes and stroke, daughter has arthritis. SOCIAL HISTORY: . Currently smokes patient says five cigarettes a day for many years. Alcohol, rarely. No drug use. REVIEW OF SYSTEMS: As per HPI. Rest of the review of systems is negative. PHYSICAL EXAMINATION: GENERAL: The patient is alert and awake, no respiratory distress. VITAL SIGNS: Temperature 37.5, pulse 80, respiratory rate 19, blood pressure 117/75, oxygen 97% on BiPAP. HEENT: Pupils equal, round and reactive to light. NECK: No JVD, no neck masses. CARDIOVASCULAR: S1 and S2 heard. Regular rate and rhythm. No murmur, no gallop. RESPIRATORY SYSTEM: Normal AP diameter. Some tachypnea present. Diminished breath sounds. No wheezing, no crackles. ABDOMEN: Soft, bowel sounds present, nontender, no distention. CENTRAL NERVOUS SYSTEM: Cranial nerves II-XII grossly intact, nonfocal. EXTREMITIES: No edema, no erythema. LABORATORY DATA: WBC 5.9, hemoglobin 12.7, hematocrit 37.7, platelets 174. PT 10.9, INR 1, APTT 35.1. Sodium 135, potassium 3.3, chloride 104, bicarbonate 25, BUN 9, creatinine 1.2, serum glucose 122. Lactate 0.8, calcium 8.2, magnesium 1.8, total bilirubin 0.3, AST 12, ALT 5, alkaline phosphatase 45. SARS-CoV-2 PCR negative. RSV PCR negative. Influenza A PCR positive. Influenza A and B PCR negative. IMAGING DATA: Chest x-ray, no acute findings. EKG: Poor quality undetermined rhythm, rate of 100, Incomplete right bundle- branch block. ASSESSMENT AND PLAN: This is a 56-year-old female who presents with shortness of breath found to have acute on chronic respiratory failure. 1. Acute on chronic respiratory failure secondary to chronic obstructive pulmonary disease exacerbation and secondary to influenza A. The patient does not want to be on steroids. We will place her on Tamiflu. Nebs around the clock and p.r.n. inhalers. We will follow the ABG . Will Follow the troponin levels. Closely monitor in the tele floor. Consult Pulmonary for further recommendations. 2. History of coronary artery disease, status post stent, on aspirin. The patient gets Repatha infusions and metoprolol. Follow troponin levels. 3. History of hypothyroidism, continue Synthroid. 4. Chronic kidney disease stage III, her creatinine is at 1.2 which is baseline, we will follow the labs. 5. Ongoing tobacco abuse, needs counseling. 6. Gastroesophageal reflux disease, on omeprazole. 7. Deep venous thrombosis prophylaxis, we will place on Lovenox. DISPOSITION: Closely monitor in tele floor. Level 1 full code. PT, OT prior to discharge. Social service to help with discharge planning. Job ID: [id number] [facility]ITALVitaly
[2022-03-10] MEDS ORDERED: tiZANidine HCL 4 MG TABLET PO PRN (10:32)
[2022-03-10] MEDS ORDERED: LEVALBUTEROL 1.25MG/0.5ML NEB INH SCH (10:32)
[2022-03-10] MEDS ORDERED: POLYETHYLENE (MIRALAX) 17 GM PACK PO PRN (10:32)
[2022-03-10] MEDS ORDERED: XOPENEX/ATROVENT 1.25mg/0.5MG NEB COMBO NEB SCH (10:32)
[2022-03-10] MEDS ORDERED: NITROGLYCERIN SL 0.4 MG/TAB TAB SL PRN (10:32)
[2022-03-10] MEDS: LORazepam 0.5 MG TAB PO PRN (11:15)
[2022-03-10] MEDS: FLUTICASONE FUROATE 200MCG 14 PUFFS/INHALER INH SCH (11:16)
[2022-03-10] MEDS: UMECLIDINIUM BROMIDE 62.5MCG/BLISTER 7 PUFFS/INHALER INH SCH (11:16)
--- NOTE | 2022-03-10 11:20 | Pulmonary Consultation ---
Date of Consultation March 10, 2022 Assessment & Plan (1) Acute exacerbation of chronic obstructive pulmonary disease: Patient agreeable to initiating IV steroids for a short period of time. We will give the patient 80 mg IV Solu-Medrol now and then continue with 40 mg twice daily likely switch to p.o. in the next 1 to 2 days. Suspect that her COPD was exacerbated by influenza. Continue with DuoNebs every 6 hours. Continue with doxycycline. Complete smoking cessation advised. Patient would benefit from updated PFTs as an outpatient. She may have an asthma component and may benefit from biologics as an outpatient. Consider RAST testing and IgE level as an outpatient. (2) Influenza A: Agree with Tamiflu. (3) Acute respiratory distress: Continue with supplemental oxygen and BiPAP support as needed. Avoid hyperoxia. Maintain sats of 88 to 92%. I did world travel counselor the patient regarding her diagnosis and treatment plan and she expressed understanding. Greater than 50% of the time was spent [id number] with the patient counseling them on their diagnosis and treatment plan. This note was dictated using voice recognition software and may include gr ammatical errors, extra words, word substitutions and other inaccuracies due to errors in the voice recognition software and differences in speech patterns. History of Present Illness Reason for Consultation: Acute on chronic hypoxic respiratory failure Attending Physician: Lopez Shane MD History of Present Illness 56-year-old female with a past medical history of coronary artery disease, hyperlipidemia, COPD dependent on chronic oxygen, neurofibromatosis, supraventricular tachycardia and a history of tobacco abuse since the age of 11 presenting to the hospital due to increasing shortness of breath. She was brought via EMS on CPAP. She was switched over to BiPAP in the emergency department. She was found to have influenza A on testing today. Apparently the patient was refusing steroids despite being told that she has a COPD exacerbation. Patient endorses increasing cough, shortness of breath and chest tightness. Labs reviewed including CBC without any evidence of leukocytosis. Mild lymphopenia seen. Eosinophil count 0. ABG reviewed with a pH of 7.37. PCO2 46. PO2 122. Chest x-ray demonstrates hyperinflation with no acute infiltrate. Last echo in our system was 03/24/2021. EF 45 to 50%. Grade 1 diastolic dysfunction. Mild to moderate right ventricular hypertrophy. Small loculated pericardial effusion. Allergies Allergy/AdvReac Type Severity Reaction Status Date / Time ibuprofen Allergy Intermediate Unknown Verified 03/10/22 08:38 NSAIDS (Non-Steroidal Allergy Intermediate Unknown Verified 03/10/22 08:38 Anti-Inflamma Sulfa (Sulfonamide Allergy Intermediate HIVES Verified 03/10/22 08:38 Antibiotics) adhesive Allergy Mild BANDAIDS Verified 03/10/22 08:38 SKIN ABRASION ketorolac [From Toradol] Allergy Mild Unknown Verified 03/10/22 08:38 adhesive tape Allergy Unknown Unknown Verified 03/10/22 08:38 tramadol Allergy Unknown . Verified 03/10/22 08:19 rosuvastatin [From Crestor] AdvReac Intermediate Weakness Verified 03/10/22 08:19 prednisone AdvReac Mild Patient Unverified 03/10/22 08:38 Reports Contraindication in Kidney Failure meperidine AdvReac Unknown MOOD SWINGS Verified 03/10/22 08:19 Home Medications Medication Instructions Recorded Confirmed Type albuterol sulfate 90 mcg/actuation 2 puff INHALATION Q4H PRN 03/10/22 03/10/22 History aerosol inhaler ascorbic acid (vitamin C) 500 mg 500 mg PO DAILY 03/10/22 03/10/22 History tablet (Vitamin C) aspirin 81 mg tablet,delayed 81 mg PO DAILY 03/10/22 03/10/22 History release calcium carbonate 600 mg-vitamin 1 tab PO DAILY 03/10/22 03/10/22 History D3 10 mcg (400 unit) tablet (Calcium 600 + D(3)) cholecalciferol (vitamin D3) 50 50 mcg PO DAILY 03/10/22 03/10/22 History mcg (2,000 unit) tablet (Vitamin D3) cyanocobalamin (vitamin B-12) 100 mcg IM MO 03/10/22 03/10/22 History 1,000 mcg/mL injection solution evolocumab 420 mg/3.5 mL 420 mg SUBCUT MO 03/10/22 03/10/22 History subcutaneous wearable injector (Repatha Pushtronex) fluticasone propionate 110 2 puff INHALATION BID 03/10/22 03/10/22 History mcg/actuation HFA aerosol inhaler (Flovent HFA) folic acid 1 mg tablet 1 mg PO DAILY 03/10/22 03/10/22 History ipratropium 0.5 mg-albuterol 3 mg 3 ml INHALATION QID PRN 03/10/22 03/10/22 History (2.5 mg base)/3 mL nebulization soln levothyroxine 75 mcg tablet 75 mcg PO DAILY 03/10/22 03/10/22 History (Synthroid) lorazepam 0.5 mg tablet 0.5 mg PO DAILY PRN 03/10/22 03/10/22 History metoprolol succinate 25 mg 12.5 mg PO HS 03/10/22 03/10/22 History tablet,extended release 24 hr metoprolol succinate 25 mg 25 mg PO QAM 03/10/22 03/10/22 History tablet,extended release 24 hr omeprazole 20 mg capsule,delayed 20 mg PO BID 03/10/22 03/10/22 History release pregabalin 75 mg capsule 75 mg PO TID 03/10/22 03/10/22 History tiotropium 2.5 mcg-olodaterol 2.5 2 puff INHALATION DAILY 03/10/22 03/10/22 History mcg/actuation mist for inhalation (Stiolto Respimat) tizanidine 4 mg tablet 2 mg PO Q8H PRN 03/10/22 03/10/22 History trazodone 100 mg tablet 100 mg PO HS 03/10/22 03/10/22 History Patient History Medical History (Updated 03/10/22 @ 08:19 by Nancy Fowler) Acute exacerbation of chronic obstructive pulmonary disease (COPD) SEVERE EMPHYSEMA Acute respiratory failure with hypoxia CAD (coronary artery disease) Cavernous hemangioma of brain Gastroparesis Hx of bronchitis Hypokalemia CAN NOT TOLERATE PO POTASSIUM PILLS DUE TO GASTROPARESIS Myocardial infarction 2010 - CHEST PAIN -[facility] ER AND HAD HEART CATH WITH ONE STENT (BARE METAL) FOLLOW WITH [facility] Neurofibromatosis Pneumothorax AGE 24 - SURGERY TO REPAIR THE LEFT SIDE AND CHEMICAL TREATMENT ON THE RIGHT SIDE AT [facility] 2013 ONLY HAD ONE -- ADMITTED TO [facility] --- METABOLIC RELATED ---- NO MEDICATION Shortness of breath Volume overload Surgical History (System 03/10/22 @ 08:19 by Nancy Fowler) History of hernia repair UMBILICAL Hx of cardiac cath 2010 HEART CATH WITH ONE STENT Hx of section X2 Hx of colonoscopy Hx of vaginal surgery 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 Family History Father Lung disease Severe emphysema, pneumothorax Social History (System 03/10/22 @ 08:19 by Nancy Fowler) Smoking Status: Current every day smoker Tobacco Type: Cigarettes Age Started Using Tobacco: 11; Age Quit Using Tobacco: 53; packs per day: 1; Years Smoked: 42; Cigarettes Per Day: 5; Number of Years Since Quit: 1; Second Hand Exposure: No; Hx Alcohol Use: No Hx Substance Use: No Preferred Language: Dominican Communication Ability: Effective Genetic Physician Required: No Beliefs That Will Affect Care: None marital status: Current Living Situation: Spouse Other Information That Helps Us Care for You: No Feels Safe at Home: Yes Safety Concerns: Feels Safe At This Time Assistive Devices: Denture - Upper, Denture - Lower and Oxygen - Continuous Review of Systems Review of Systems: 10 point ROS negative unless noted elsewhere Physical Exam Physical Exam: Constitutional: Frail appearing female laying in bed. No apparent distress. BiPAP mask in place. Eyes: Pupils are equal round and reactive to light. Conjunctivae are normal. Anicteric sclera. Ears nose, mouth and throat: Difficult to examine given the BiPAP mask placement. Neck: Trachea is midline. Visual inspection is normal. Respiratory: Diminished lung sounds bilaterally. Diffuse end expiratory wheezes with mildly increased work of breathing. Cardiovascular: Regular rate and rhythm. No murmurs. No edema. Gastrointestinal: Normal bowel sounds, soft, nontender and nondistended. No hepatosplenomegaly noted. Musculoskeletal: No cyanosis. Patient is able to move all extremities. Skin: No rashes, warm dry and intact. Neurologic: No obvious focal neurological deficits seen. Psychiatric: Mildly anxious appearing. Alert and oriented x3. Results & Data Results & Data ([facility]) Vital Signs (Past 12 Hours) Vital Signs Temp Pulse Pulse Pulse Resp BP BP 03/10/22 10:15 36.6 C 95 H 26 H 115/93 03/10/22 10:11 90 36 H 03/10/22 09:30 88 20 115/84 03/10/22 09:01 86 20 115/84 03/10/22 09:00 91 H 22 03/10/22 08:40 86 98 H 21 03/10/22 08:30 83 24 03/10/22 08:01 85 26 H 106/84 03/10/22 08:00 89 22 03/10/22 07:30 93 H 13 126/85 03/10/22 07:18 87 15 117/74 03/10/22 07:00 85 18 03/10/22 06:58 88 23 03/10/22 06:00 88 19 117/75 03/10/22 05:30 90 23 122/69 03/10/22 05:00 79 27 H 103/69 03/10/22 04:40 97 H 27 H 03/10/22 04:31 97/73 L 03/10/22 04:25 80 35 H 03/10/22 04:18 03/10/22 04:10 03/10/22 04:08 103 H 38 H 122/99 03/10/22 03:58 37.5 C 52 L 19 122/99 03/10/22 03:56 79 22 Pulse Ox 03/10/22 10:15 95 03/10/22 10:11 95 03/10/22 09:30 97 03/10/22 09:01 95 03/10/22 09:00 95 03/10/22 08:40 98 03/10/22 08:30 97 03/10/22 08:01 97 03/10/22 08:00 96 03/10/22 07:30 95 03/10/22 07:18 98 03/10/22 07:00 96 03/10/22 06:58 98 03/10/22 06:00 97 03/10/22 05:30 94 03/10/22 05:00 95 03/10/22 04:40 98 03/10/22 04:31 03/10/22 04:25 99 03/10/22 04:18 100 03/10/22 04:10 100 03/10/22 04:08 97 03/10/22 03:58 99 03/10/22 03:56 98 PG Care Time/CCT Total # of Minutes Spent Total Time Spent with Patient: Total time spent is greater than 50% in coordination of care (as documented) at patient's floor/unit and/or counseling patient: Coding Level of Care Code 09216 Inpt Consult Level 5 Diagnoses Influenza A J10.1 Acute respiratory distress R06.03 Acute exacerbation of chronic obstructive pulmonary disease J44.1
[2022-03-10] MEDS: LEVALBUTEROL HCL 1.25 MG/3 ML NEB NEB PRN ×3 (11:24→22:39)
[2022-03-10] MEDS: IPRATROPIUM BROMIDE NEB SOLN 0.02% 2.5 ML VIAL INH PRN ×2 (11:24→22:38)
[2022-03-10] MEDS ORDERED: methylPREDNISolone 80 MG in SYRINGE 0 ML IV ONE (11:45)
[2022-03-10] MEDS: ASPIRIN 81 MG ECTAB PO SCH (12:00)
[2022-03-10] MEDS: ENOXAPARIN INJ 40 MG/0.4 ML SYR SQ SCH (12:00)
[2022-03-10] MEDS: DOXYCYCLINE HYCLATE 100 MG CAP PO SCH ×2 (12:01→21:18)
[2022-03-10] MEDS: METOPROLOL SUCC 25MG EXT REL TAB PO SCH (12:01)
[2022-03-10] MEDS: PANTOprazole 40 MG TAB PO SCH (12:01)
[2022-03-10] MEDS: FOLIC ACID 1 MG TAB PO SCH (12:02)
[2022-03-10] MEDS: CHOLECALCIFEROL 1,000 UNITS 25 MCG TAB PO SCH (12:03)
[2022-03-10] MEDS: PREGABALIN 75 MG CAP PO SCH ×2 (12:05→21:15)
[2022-03-10] MEDS: LEVALBUTEROL 1.25MG/0.5ML NEB INH SCH ×2 (13:24→19:15)
[2022-03-10] MEDS: IPRATROPIUM BROMIDE NEB SOLN 0.02% 2.5 ML VIAL INH SCH ×2 (13:24→19:15)
--- NOTE | 2022-03-10 14:07 | Communication Note ---
Date of Service: March 10, 2022 Patient was seen and examined at bedside in presence of family. Admitted earlier today for acute respiratory distress due to COPD exacerbation from influenza A. Remains on BIPAP but feels improving. AAOx3, chest with decreased breath sounds, minimal wheezes during my exam, normal heart sounds, abdomen benign, no edema. She has been started on tamiflu. Seen by pulm, now agreeable and started on solumedrol. Continue nebs and doxy. Will start on gentle IVF. Trial off of bipap as tolerated. Will follow. Refer to H&P note for other details.
--- NOTE | 2022-03-10 14:10 | Electrocardiogram Report ---
Test Reason : Blood Pressure : / mmHG Vent. Rate : 100 BPM Atrial Rate : 100 BPM P-R Int : 134 ms QRS Dur : 096 ms QT Int : 354 ms P-R-T Axes : 082 085 080 degrees QTc Int : 456 ms Poor data quality, interpretation may be adversely affected Sinus rhythm with frequent and consecutive PVCs Incomplete right bundle branch block Right atrial enlargement Borderline ECG No previous ECGs available Confirmed by Jesus Garzon ([id number]) on 03/10/2022 2:10:13 PM Referred By: REFERRED SELF Confirmed By:Connor Garzon
[2022-03-10] MEDS: SODIUM CHLORIDE 0.9% 1000ML 1,000 ML IV SCH (14:42)
[2022-03-10 16:05] LABS: Appearance Urine Cloudy (Clear); Bacteria Urine Automated 2+ (Negative); Bilirubin Urine Negative (Negative); Blood Urine 1+ (Negative); Color Urine Yellow; Epithelial Cell Urine Auto >30 /lpf (0-5); Glucose Urine UA Negative (Negative); Ketones Urine Negative (Negative); Leukocyte Esterase Urine 3+ (Negative); Nitrite Urine Negative (Negative); Protein Urine 1+ (Negative); RBC Urine Automated 0-4 /hpf (0-4); Specific Gravity Urine 1.015 (1.000-1.030); Urobilinogen Urine Negative (Negative); WBC Urine Automated >30 /hpf (0-5)
[2022-03-10] MEDS: cefTRIAXone SODIUM 1,000 MG in DEXTROSE 5% 50 ML IV SCH (16:57)
[2022-03-10] MEDS: ONDANSETRON INJ 2 MG/ML 2 ML VIAL IV PRN (20:55)
[2022-03-10] MEDS ORDERED: traZODone HCL 100 MG TAB PO SCH (21:00)
[2022-03-10] MEDS ORDERED: OSELTAMIVIR PHOSPHATE 75 MG CAP PO SCH (21:00)
[2022-03-10] MEDS ORDERED: METOPROLOL SUCC 25MG EXT REL TAB PO SCH (21:00)
[2022-03-10] MEDS: OSELTAMIVIR PHOSPHATE SUSP 30 MG/5 ML UDP PO SCH (21:16)
[2022-03-10] MEDS: methylPREDNISolone 40 MG in SYRINGE 0 ML IV SCH (21:16)
[2022-03-11] MEDS: IPRATROPIUM BROMIDE NEB SOLN 0.02% 2.5 ML VIAL INH SCH ×4 (00:54→20:04)
[2022-03-11] MEDS: LEVALBUTEROL 1.25MG/0.5ML NEB INH SCH ×4 (00:54→20:04)
[2022-03-11] MEDS: SODIUM CHLORIDE 0.9% 1000ML 1,000 ML IV SCH ×2 (02:16→11:39)
[2022-03-11] MEDS: IPRATROPIUM BROMIDE NEB SOLN 0.02% 2.5 ML VIAL INH PRN ×3 (03:35→13:22)
[2022-03-11] MEDS: LEVALBUTEROL HCL 1.25 MG/3 ML NEB NEB PRN ×3 (03:35→13:22)
[2022-03-11] MEDS: LORazepam 0.5 MG TAB PO PRN ×2 (03:51→07:36)
[2022-03-11 05:54] LABS: Basophils # (auto) 0.01 K/uL (0-0.2); Basophils % (auto) 0.2 %; Hematocrit (blood only) 40.2 % (37-47); Hemoglobin 13.3 g/dL (12.0-16.0); Immature Granulocytes # (auto) 0.01 K/uL (0.00-0.02); Immature Granulocytes % (auto) 0.2 %; Lymphocytes # (auto) 0.61 K/uL (1.2-3.4); Lymphocytes % (auto) 10.6 %; Mean Corpuscular Hemoglobin 30.8 pg (25-34); Mean Corpuscular Hgb Conc 33.1 g/dL (32-36); Mean Corpuscular Volume 93.1 fL (80-100); Mean Platelet Volume 11.1 fL (7.4-10.4); Monocytes # (auto) 0.18 K/uL (0.11-0.59); Monocytes % (auto) 3.1 %; Neutrophils # (auto) 4.95 K/uL (1.4-6.5); Neutrophils % (auto) 85.9 %; Platelet Count 180 K/uL (130-400); RDW Coefficient of Variation 13.2 % (11.5-14.5); RDW Standard Deviation 44.9 fL (36.4-46.3); Red Blood Count 4.32 M/uL (4.2-5.4); White Blood Count 5.76 K/uL (4.8-10.8)
[2022-03-11 06:12] LABS: BUN Creatinine Ratio 18.7 (10-20); Calcium 8.5 mg/dl (8.5-10.1); Creatinine Clr Calc Pharmacy 56.6 ml/min; Est GFR (African American) 81.2 ml/min; Magnesium 1.9 mg/dl (1.7-2.4); Potassium 3.6 mmol/L (3.5-5.1)
[2022-03-11] MEDS: LEVOTHYROXINE SODIUM 75 MCG TABLET PO SCH (06:16)
[2022-03-11] MEDS: ONDANSETRON INJ 2 MG/ML 2 ML VIAL IV PRN (07:32)
--- NOTE | 2022-03-11 08:21 | Pulmonology Progress Note ---
Date of Service March 11, 2022 Assessment & Plan (1) Acute exacerbation of chronic obstructive pulmonary disease: Plan: Continue with IV Solu-Medrol 40 twice daily for today and then transition to p.o. prednisone tomorrow for a 5 to 7 day course. COPD exacerbation possibly exacerbated by influenza.Continue with DuoNebs every 6 hours. Continue with doxycycline. Complete smoking cessation advised. Patient would benefit from updated PFTs as an outpatient. She may have an asthma component and may benefit from biologics as an outpatient. Consider RAST testing and IgE level as an outpatient. (2) Influenza A: Plan: Agree with Tamiflu. (3) Acute respiratory distress: Plan: Continue with supplemental oxygen and BiPAP support as needed. Avoid hyperoxia. Maintain sats of 88 to 92%. She notes that she is on 2 L of oxygen at home. Plan: I did rehabilitation counsellor the patient regarding her diagnosis and treatment plan and she expressed understanding. Greater than 50% of the time was spent [id number] with the patient counseling them on their diagnosis and treatment plan. This note was dictated using voice recognition software and may include grammatical errors, extra words, word substitutions and other inaccuracies due to errors in the voice recognition software and differences in speech patterns. Admission and Anticipated Discharge Date Admission Date: March 10, 2022 Subjective Patient less anxious this morning. She was unable to tolerate being off BiPAP however for longer than 5 to 10 minutes. She is on minimal BiPAP settings. She is able to communicate easily through the BiPAP. She denies any chest pain, wheezing or fever. She does have shortness of breath with mild exertion. She is currently on 21% FiO2 via BiPAP. Review of Systems Review of Systems: All systems reviewed & are unremarkable except as noted in HPI & below Physical Exam Physical Exam: Constitutional: Frail appearing female laying in bed. No apparent distress. BiPAP mask in place. Eyes: Pupils are equal round and reactive to light. Conjunctivae are normal. Anicteric sclera. Ears nose, mouth and throat: Difficult to examine given the BiPAP mask placement. Neck: Trachea is midline. Visual inspection is normal. Respiratory: Prolonged phase of exhalation. Wheezing has diminished. Cardiovascular: Regular rate and rhythm. No murmurs. No edema. Gastrointestinal: Normal bowel sounds, soft, nontender and nondistended. No hepatosplenomegaly noted. Musculoskeletal: No cyanosis. Patient is able to move all extremities. Skin: No rashes, warm dry and intact. Neurologic: No obvious focal neurological deficits seen. Psychiatric: Mildly anxious appearing. Alert and oriented x3. Results & Data Results & Data ([facility]) Vital Signs (Past 12 Hours) Vital Signs Temp Pulse Pulse Resp BP BP Pulse Ox 03/11/22 07:05 105 H 24 99 03/11/22 04:00 36.6 C 93 H 16 140/98 98 03/11/22 03:36 91 H 91 H 24 97 03/11/22 00:55 87 22 98 03/10/22 22:58 36.6 C 94 H 18 138/90 97 03/10/22 22:41 101 H 101 H 24 98 PG Care Time/CCT Total # of Minutes Spent Total Time Spent with Patient: Total time spent is greater than 50% in coordination of care (as documented) at patient's floor/unit and/or counseling patient: Coding Level of Care Code 63121 Subseq Hosp Care Lvl 2 Diagnoses Acute exacerbation of chronic obstructive pulmonary disease J44.1 Influenza A J10.1 Acute respiratory distress R06.03
[2022-03-11] MEDS: methylPREDNISolone 40 MG in SYRINGE 0 ML IV SCH ×2 (09:39→21:01)
[2022-03-11] MEDS: ENOXAPARIN INJ 40 MG/0.4 ML SYR SQ SCH (09:41)
[2022-03-11] MEDS ORDERED: LORazepam 2 MG/1 ML VIAL IV PRN (11:05)
[2022-03-11] MEDS: FOLIC ACID 1 MG TAB PO SCH (11:35)
[2022-03-11] MEDS: DOXYCYCLINE HYCLATE 100 MG CAP PO SCH (11:35)
[2022-03-11] MEDS: ASPIRIN 81 MG ECTAB PO SCH (11:35)
[2022-03-11] MEDS: CHOLECALCIFEROL 1,000 UNITS 25 MCG TAB PO SCH (11:35)
[2022-03-11] MEDS: FLUTICASONE FUROATE 200MCG 14 PUFFS/INHALER INH SCH (11:35)
[2022-03-11] MEDS: UMECLIDINIUM BROMIDE 62.5MCG/BLISTER 7 PUFFS/INHALER INH SCH (11:36)
[2022-03-11] MEDS: OSELTAMIVIR PHOSPHATE SUSP 30 MG/5 ML UDP PO SCH ×2 (11:36→20:03)
[2022-03-11] MEDS: METOPROLOL SUCC 25MG EXT REL TAB PO SCH (11:36)
[2022-03-11] MEDS: PANTOprazole 40 MG TAB PO SCH (11:36)
[2022-03-11] MEDS: DOXYCYCLINE HYCLATE 100 MG in DEXTROSE 5% 100 ML IV SCH ×2 (12:00→21:02)
[2022-03-11] MEDS ORDERED: FLUMAZENIL 0.1 MG/1 ML 10 ML VIAL IV ONE (12:48)
[2022-03-11 12:53] LABS: iSTAT Allen Test Pass; iSTAT Art Bld Gas pCO2 Correct 101 mmHg (35-46); iSTAT Art Bld Gas pH Corrected 6.976 (7.35-7.45); iSTAT Arterial Blood Gas HCO3 24 meg/L (19-24); iSTAT Arterial Blood Gas pCO2 101 mmHg (35-46); iSTAT Arterial Blood Gas pH 6.98 (7.35-7.45); iSTAT Arterial Blood Gas pO2 > 420 mmHg (80-95); iSTAT Arterial Blood Gas pO2 C 429; iSTAT Carbon Dioxide 27 mmol/L (24-31); iSTAT FiO2 100 %; iSTAT Hematocrit 39 % (37-47); iSTAT Hemoglobin 13.3 g/dl (12.0-16.0); iSTAT Potassium 4.5 mmol/L (3.3-5.0); iSTAT Site R Radial; iSTAT Sodium 141 mmol/L (135-144)
[2022-03-11] MEDS ORDERED: STAT IV Infusion **Titration per Protocol STA ×2 (12:55→18:17)
[2022-03-11] MEDS: dexMEDEtomidine 200 MCG/50 ML BAG IV SCH ×3 (13:09→22:01)
--- NOTE | 2022-03-11 13:48 | XRay Report ---
XR chest 1V portable HISTORY: 56 years-old Female eval hypoxia acute hypoxia COMPARISON: Chest radiograph 03/10/2022, CTA chest 11/22/2019. TECHNIQUE: Portable AP view of the chest FINDINGS: The cardiomediastinal and hilar silhouettes are within normal limits. Postoperative changes of the le ft lung apex. There is no pneumothorax, or large pleural effusion. Ill-defined nodule versus airspace disease of the left lung apex. There is severe pulmonary emphysema with chronic interstitial coarsen ing. There are mildly progressed interstitial opacities noted within the left lung. Degenerative luevano ges of the shoulders and spine. IMPRESSION: 1. Severe emphysema with chronic interstitial coarsening. There are mildly progressed interstitial op acities throughout the left lung suggestive of asymmetric pulmonary edema versus a developing pneumon itis. 2. Ill-defined nodule versus airspace disease of the left upper lobe. Attention at follow-up recommen ded. ACT 112: Negative or not required by law. The above report was generated using voice recognition software. It may contain grammatical, syntax o r spelling errors. Electronically signed by: Silas Santos M.D. 03/11/2022 1:46 PM
[2022-03-11] MEDS ORDERED: FUROSEMIDE INJ 20 MG/2 ML VIAL IV ONE (13:54)
[2022-03-11] MEDS ORDERED: PREGABALIN 75 MG CAP PO SCH (14:00)
--- NOTE | 2022-03-11 14:02 | Communication Note ---
Date of Service: March 11, 2022 I was called by the hospitalist due to the patient's worsening hypercapnic respiratory failure upstairs. She received 2 doses of Ativan 0.5 mg earlier tonavid martinez due to anxiety. She had increasing work of breathing and confusion in the afternoon. An ABG was obtained which demonstrated severe hypercapnic respiratory failure with a metabolic acidosis component as well likely due to increased work of breathing. When I saw her in the ICU she was essentially obtunded. I gave her 0.2 mg of flumazenil with improvement of her mental status. She then had increasing anxiety and agitation. She was placed in restraints. Precedex infusion was ordered with improvement of her agitation. She remains tenuous with her respiratory status. She is currently on BiPAP. She was hyperoxic on her ABG so we are trying to avoid hyperoxygenation. Chest x-ray reviewed from today which demonstrates hyperinflation and mildly increased interstitial markings. We will give the patient 20 mg IV Lasix. DuoNeb given at bedside as well given wheezing and poor air movement. We will leave the patient on BiPAP today. Continue IV Solu-Medrol 40 mg twice daily. Continue broad-spectrum antibiotics. Urinalysis reviewed and is growing E. coli. Troponin ordered. Troponin from yesterday was trending upwards. We will need to consider anticoagulation with heparin and cardiology consultation depending on next troponin. Echo from 03/24/2021 reviewed with an LVEF of 45 to 50%. Moderate right ventricular hypertrophy. Grade 1 diastolic dysfunction. We will repeat an echo. Likely has cor pulmonale. Low threshold for intubation and mechanical ventilation. Will need close outpatient pulmonary monitoring with PFTs and evaluation for allergic asthma. CRITICAL CARE TIME - I have personally spent 44 minutes of critical care time in the direct management of this patient. This is a life/limb threatening event. This includes time spent evaluating patient, direct bedside care, chart review, placing orders, interpretation of diagnostic studies, discussion with consultants, patient, and family members, as well as other required patient management activities. This time is exclusive of all separately billable procedures, and teaching time and separate from and in addition to any other critical care service time. Coding Level of Care Code Critical Care 1st 30-74 mins Time Spent (min) 44
--- NOTE | 2022-03-11 14:26 | Electrocardiogram Report ---
Test Reason : Blood Pressure : / mmHG Vent. Rate : 118 BPM Atrial Rate : 118 BPM P-R Int : 112 ms QRS Dur : 098 ms QT Int : 444 ms P-R-T Axes : 092 083 100 degrees QTc Int : 622 ms Poor data quality, interpretation may be adversely affected Sinus tachycardia Incomplete right bundle branch block Prolonged QT Abnormal ECG When compared with ECG of 26-MAR-2021 09:27, Non-specific change in ST segment in Lateral leads T wave inversion less evident in Anterior leads Confirmed by Jesus Garzon ([id number]) on 03/11/2022 2:26:16 PM Referred By: REFERRED SELF Confirmed By:Connor Garzon
[2022-03-11 14:34] LABS: iSTAT Allen Test Pass; iSTAT Art Bld Gas pCO2 Correct 53 mmHg (35-46); iSTAT Art Bld Gas pH Corrected 7.218 (7.35-7.45); iSTAT Arterial Blood Gas HCO3 22 meg/L (19-24); iSTAT Arterial Blood Gas pCO2 54 mmHg (35-46); iSTAT Arterial Blood Gas pH 7.21 (7.35-7.45); iSTAT Arterial Blood Gas pO2 64 mmHg (80-95); iSTAT Arterial Blood Gas pO2 C 62; iSTAT Carbon Dioxide 23 mmol/L (24-31); iSTAT FiO2 24 %; iSTAT Hematocrit 36 % (37-47); iSTAT Hemoglobin 12.2 g/dl (12.0-16.0); iSTAT Potassium 3.9 mmol/L (3.3-5.0); iSTAT Site R Radial; iSTAT Sodium 140 mmol/L (135-144)
[2022-03-11] MEDS: PREGABALIN 75 MG CAP PO SCH (15:26)
--- NOTE | 2022-03-11 16:45 | Hospitalist Progress Note ---
Date of Service March 11, 2022 Assessment & Plan (1) Acute respiratory distress: (2) Acute respiratory failure with hypercapnia: (3) Influenza A: (4) Anxiety: Plan: Acute respiratory distress Acute hypercarbic respiratory failure COPD exacerbation Influenza A - Patient has tenuous respiratory status and unable to wean off BIPAP. Had increasing work of breathing with ABG showing severe hypercapnia and acidosis and transferred to ICU for closer monitoring and possible need for intubation. BIPAP setting uptitrated, repeat ABG. On precedex for anxiety. Hold off on benzos. - On steroids, nebs, ABx for COPD exacerbation - On tamiflu for influenza A - CXR shows mildly incrased interstitial markings- given a dose of lasix- monitor I and Os. IVF stopped. Echo pending - Repeat ABG shows improvement - Low threshold for intubation and mechanical ventilation - Further management per photostat operator Elevated trop- possible demand ischemia from respiratory distress. Trop trending up- continue to trend. Echo pending. On tele. Consider cardio eval. Anxiety- hold off on benzos. Now on precedex drip. CAD s/p stenting- on aspirin, betablocker. Gets repatha infusion as OP GERD- On PPI Hypothyroidism- on synthroid Sinus tachycardia- improving. Will consider changing oral betablocker to iv lopressor if unable to take po. DVT prophylaxis- sc lovenox Dispo- Transfer to ICU Admission and Anticipated Discharge Date Admission Date: March 10, 2022 Subjective Patient was seen and examined multiple times today. During my evaluation earlier today, she was on BIPAP, relatively stable from yesterday but was refusing all po meds as she was scared and unable to come off of BIPAP. Upon arrival to PCU, she was anxious, agitated and uncooperative and pulled off BIPAP and had an episode of urinary incontinence. She was given a dose of iv ativan. I was called at bedside. Upon my arrival, she was awake but responsive to painful stimuli, not answering any questions. She was in visible respiratory distress on BIPAP with her RR in 30, HR in 120s and increased work of breathing. Stat ABG was done which showed severe hypercarbia and acidosis. Updated photostat operator and transferred patient to ICU for possible need for intubation. She was given a dose of flumazenil, put on restraint, her BIPAP setting was uptitrated and started on precedex for her anxiety. Upon reevaluation, she was still agitated, anxious and not responding to me and her respiratory status were about the same. Physical Exam Physical Exam: General: Lying in bed on BIPAP, anxious, agitated, uncooperative HEENT: EOMI, BRITNI Chest: Increased work of breathing, tachypneic, diminished breath sounds CVS: Tachycardic, regular, normal heart sounds Abdomen: Soft, non tender, not distended, normal bowel sounds Neuro: Awake but not responding to questions Extremities: No cyanosis, clubbing or edema Results & Data Results & Data ([facility]) Vital Signs (Past 12 Hours) Vital Signs Pulse Pulse Resp BP BP Pulse Ox 03/11/22 14:25 110 H 24 94 03/11/22 14:00 109 H 31 H 107/74 92 03/11/22 13:25 127 H 32 H 92 03/11/22 12:53 128 H 20 142/83 H 96 03/11/22 12:15 124 H 124 H 26 H 96 03/11/22 11:30 128 H 35 H 140/90 99 03/11/22 10:13 124 H 22 92 03/11/22 09:53 102 H 22 96 03/11/22 08:00 92 H 26 H 122/89 98 03/11/22 07:05 105 H 24 99 03/11/22 07:00 105 H 20 97 Laboratory Results Short CBC 03/11/22 Range/Units 04:53 WBC 5.76 (4.8-10.8) K/uL Hgb 13.3 (12.0-16.0) g/dL Hct 40.2 (37-47) % Plt Count 180 (130-400) K/uL BMP 03/11/22 04:53 Sodium 139 Potassium 3.6 Chloride 107 Carbon Dioxide 22 BUN 17 Creatinine 0.91 D Glucose 131 H Calcium 8.5 Diagnostic Findings Chest X-Ray 03/11/22 13:30 XR chest 1V portable HISTORY: 56 years-old Female eval hypoxia acute hypoxia COMPARISON: Chest radiograph 03/10/2022, CTA chest 11/22/2019. TECHNIQUE: Portable AP view of the chest FINDINGS: The cardiomediastinal and hilar silhouettes are within normal limits. Postoperative changes of the left lung apex. There is no pneumothorax, or large pleural effusion. Ill-defined nodule versus airspace disease of the left lung apex. There is severe pulmonary emphysema with chronic interstitial coarsening. There are mildly progressed interstitial opacities noted within the left lung. Degenerative changes of the shoulders and spine. IMPRESSION: 1. Severe emphysema with chronic interstitial coarsening. There are mildly progressed interstitial opacities throughout the left lung suggestive of asymmetric pulmonary edema versus a developing pneumonitis. 2. Ill-defined nodule versus airspace disease of the left upper lobe. Attention at follow-up recommended. ACT 112: Negative or not required by law. The above report was generated using voice recognition software. It may contain grammatical, syntax or spelling errors. Electronically signed by: Silas Santos M.D. 03/11/2022 1:46 PM Medications Administered Current Inpatient Medications Acetaminophen (Acetaminophen 325 Mg Tab) 650 mg PO Q4H PRN PRN Reason: Pain or Fever Stop: 04/09/22 10:31 Aspirin (Aspirin 81 Mg Ectab) 81 mg PO DAILY [facility] Stop: 04/09/22 10:31 Last Admin: 03/11/22 11:35 Dose: Not Given Documented by: Enoxaparin Sodium (Enoxaparin Inj 40 Mg/0.4 Ml Syr) 40 mg SQ QAM [facility] Stop: 04/09/22 10:31 Last Admin: 03/11/22 09:41 Dose: 40 mg Documented by: Fluticasone Furoate (Fluticasone Furoate 200mcg 14 Puffs/Inhaler) 1 puffs INH DAILY [facility]; Protocol Stop: 04/09/22 10:59 Last Admin: 03/11/22 11:35 Dose: Not Given Documented by: Folic Acid (Folic Acid 1 Mg Tab) 1 mg PO QAM [facility] Stop: 04/09/22 10:31 Last Admin: 03/11/22 11:35 Dose: Not Given Documented by: Methylprednisolone 40 mg/ (Syringe) 0.64 mls @ 1.5 mls/min IV BID [facility] Stop: 04/09/22 20:59 Last Admin: 03/11/22 09:39 Dose: 1.5 mls/min Documented by: Ceftriaxone Sodium 1,000 mg/ (Dextrose) 50 mls @ 100 mls/hr IV Q24H [facility]; Protocol Stop: 03/15/22 16:29 Last Infusion: 03/10/22 17:39 Dose: Infused Documented by: Doxycycline Hyclate 100 mg/ (Dextrose) 110 mls @ 50 mls/hr IV Q12 [facility]; Protocol Stop: 03/18/22 11:29 Last Infusion: 03/11/22 14:12 Dose: Infused Documented by: Dexmedetomidine/Sodium Chloride (Precedex) 200 mcg in 50 mls @ 5.28 mls/hr IV .Q9H29M [facility]; Protocol Stop: 03/15/22 12:59 Last Titration: 03/11/22 16:05 Dose: 0.6 mcg/kg/hr, 7.9 mls/hr Documented by: Ipratropium [place] (Ipratropium [place] Neb Soln 0.02% 2.5 Ml Vial) 0.5 mg INH Q2R PRN PRN Reason: Shortness Of Breath Or Wheezing Stop: 04/09/22 10:31 Last Admin: 03/11/22 13:22 Dose: 0.5 mg Documented by: Ipratropium [place] (Ipratropium [place] Neb Soln 0.02% 2.5 Ml Vial) 0.5 mg INH Q6R [facility] Stop: 04/09/22 12:59 Last Admin: 03/11/22 12:14 Dose: 0.5 mg Documented by: Levalbuterol HCl (Levalbuterol Hcl 1.25 Mg/3 Ml Neb) 1.25 mg NEB Q2R PRN; Protocol PRN Reason: Shortness Of Breath Or Wheezing Stop: 04/09/22 10:31 Last Admin: 03/11/22 13:22 Dose: 1.25 mg Documented by: Levalbuterol HCl (Levalbuterol 1.25mg/0.5ml Neb) 1.25 mg INH Q6R [facility] Stop: 04/09/22 12:59 Last Admin: 03/11/22 12:14 Dose: 1.25 mg Documented by: Levothyroxine Sodium (Levothyroxine Sodium 75 Mcg Tablet) 75 mcg PO DAILYBB [facility] Stop: 04/10/22 06:29 Last Admin: 03/11/22 06:16 Dose: Not Given Documented by: Metoprolol Succinate (Metoprolol Succ 25mg Ext Rel Tab) 25 mg PO QAM [facility] Stop: 04/09/22 10:31 Last Admin: 03/11/22 11:36 Dose: Not Given Documented by: Metoprolol Succinate (Metoprolol Succ 25mg Ext Rel Tab) 12.5 mg PO QPM [facility] Stop: 04/09/22 20:59 Last Admin: 03/10/22 21:17 Dose: 12.5 mg Documented by: Nitroglycerin (Nitroglycerin Sl 0.4 Mg/Tab Tab) 0.4 mg SL UD PRN PRN Reason: Chest Pain Stop: 04/09/22 10:31 Ondansetron HCl (Ondansetron Inj 2 Mg/Ml 2 Ml Vial) 4 mg IV Q6H PRN PRN Reason: Nausea And Vomiting Stop: 04/09/22 20:41 Last Admin: 03/11/22 07:32 Dose: 4 mg Documented by: Oseltamivir Phosphate (Oseltamivir Phosphate Susp 30 Mg/5 Ml Udp) 30 mg PO BID [facility]; Protocol Stop: 03/14/22 21:01 Last Admin: 03/11/22 11:36 Dose: Not Given Documented by: Pantoprazole Sodium (Pantoprazole 40 Mg Tab) 40 mg PO DAILY [facility] Stop: 04/09/22 10:31 Last Admin: 03/11/22 11:36 Dose: Not Given Documented by: Polyethylene Glycol (Polyethylene (Miralax) 17 Gm Pack) 17 gm PO DAILY PRN PRN Reason: Constipation Stop: 04/09/22 10:31 Pregabalin (Pregabalin 75 Mg Cap) 75 mg PO TID [facility] Stop: 04/10/22 13:59 Last Admin: 03/11/22 14:14 Dose: Not Given Documented by: Tizanidine HCl (Tizanidine Hcl 4 Mg Tablet) 2 mg PO TID PRN PRN Reason: Muscle Spasm Stop: 04/09/22 10:31 Last Admin: 03/10/22 12:02 Dose: 2 mg Documented by: Umeclidinium [place] (Umeclidinium [place] 62.5mcg/Blister 7 Puffs/Inhaler) 1 puffs INH [facility]; Protocol Stop: 04/09/22 10:59 Last Admin: 03/11/22 11:36 Dose: Not Given Documented by: Vitamin D (Cholecalciferol 1,000 Units 25 Mcg Tab) 2,000 units PO QAM [facility] Stop: 04/09/22 10:31 Last Admin: 03/11/22 11:35 Dose: Not Given Documented by:
[2022-03-11] MEDS: cefTRIAXone SODIUM 1,000 MG in DEXTROSE 5% 50 ML IV SCH (16:47)
[2022-03-11] MEDS ORDERED: Heparin IV Adult Wt-Based Standard *NO* Bolus Protocol IV SCH (18:19)
[2022-03-11] MEDS: DOBUTamine / D5W 500 MG/250 ML BAG IV SCH (18:24)
[2022-03-11] MEDS ORDERED: HEPARIN 25000 UNIT/500 ML D5W IV ONE (18:36)
[2022-03-11] MEDS: HEPARIN SODIUM/DEXTROSE 25,000 UNITS/500 ML BAG IV SCH (19:38)
[2022-03-12] MEDS: IPRATROPIUM BROMIDE NEB SOLN 0.02% 2.5 ML VIAL INH SCH ×5 (00:34→20:18)
[2022-03-12] MEDS: LEVALBUTEROL 1.25MG/0.5ML NEB INH SCH ×4 (00:34→20:18)
[2022-03-12] MEDS: dexMEDEtomidine 200 MCG/50 ML BAG IV SCH ×3 (02:19→08:51)
[2022-03-12 03:01] LABS: Partial Thromboplastin Time 108.7 Seconds (21.0-31.0)
[2022-03-12] MEDS: LEVOTHYROXINE SODIUM 75 MCG TABLET PO SCH (04:19)
[2022-03-12 05:52] LABS: iSTAT Allen Test Pass; iSTAT Arterial Blood Gas HCO3 23 meg/L (19-24); iSTAT Arterial Blood Gas pCO2 44 mmHg (35-46); iSTAT Arterial Blood Gas pH 7.33 (7.35-7.45); iSTAT Arterial Blood Gas pO2 257 mmHg (80-95); iSTAT Carbon Dioxide 25 mmol/L (24-31); iSTAT FiO2 28 %; iSTAT Site R Radial
[2022-03-12 06:14] LABS: Basophils # (auto) 0.01 K/uL (0-0.2); Basophils % (auto) 0.1 %; Hematocrit (blood only) 38.3 % (37-47); Immature Granulocytes # (auto) 0.01 K/uL (0.00-0.02); Immature Granulocytes % (auto) 0.1 %; Lymphocytes # (auto) 1.01 K/uL (1.2-3.4); Lymphocytes % (auto) 10.6 %; Mean Corpuscular Hemoglobin 31.6 pg (25-34); Mean Corpuscular Hgb Conc 33.9 g/dL (32-36); Mean Corpuscular Volume 93.2 fL (80-100); Mean Platelet Volume 10.5 fL (7.4-10.4); Monocytes % (auto) 4.2 %; Neutrophils # (auto) 8.14 K/uL (1.4-6.5); Platelet Count 152 K/uL (130-400); RDW Coefficient of Variation 13.3 % (11.5-14.5); RDW Standard Deviation 45.7 fL (36.4-46.3); Red Blood Count 4.11 M/uL (4.2-5.4); White Blood Count 9.57 K/uL (4.8-10.8)
[2022-03-12 06:51] LABS: Troponin I High Sensitivity 89.5 pg/ml (0-14)
[2022-03-12] MEDS: LEVALBUTEROL HCL 1.25 MG/3 ML NEB NEB PRN ×3 (07:25→12:55)
--- NOTE | 2022-03-12 08:06 | Critical Care Progress Note ---
Date of Service March 12, 2022 Assessment & Plan (1) Acute respiratory failure with hypercapnia: (2) Acute exacerbation of chronic obstructive pulmonary disease: (3) Acute systolic heart failure: (4) Anxiety: Plan: 56-year-old female with a past medical history of coronary artery disease and advanced COPD presenting to the hospital due to a COPD exacerbation and now found to have acute systolic CHF with an LVEF of 20 to 25%. Neurologic: Patient remains agitated and anxious. Currently on Precedex infusion. Avoid sedating medications otherwise given the risk of hypercapnic respiratory failure. Pulmonary: Unable to wean off BiPAP at this time due to his severity of her COPD exacerbation and underlying systolic CHF. Methylprednisone increased to 40 mg 3 times daily 03/12/2022. Low threshold for intubation or mechanical ventilation. ABG today demonstrates improving hypercapnic respiratory failure. She was apparently evaluated for lung transplant at an outside facility in the past and was not deemed a good candidate. Cardiovascular: Acute decompensated systolic CHF. Continue low-dose dobutamine infusion. Cardiology consultation appreciated. Considering left and right heart catheterization versus transfer to a tertiary care center for mechanical support of her cardiac output. Heparin drip is ordered due to high troponin levels and concern for coronary ischemia. Troponin levels appear to have plateaued and trending down. proBNP ordered for today. Viral myocarditis remains a possibility given her acute influenza infection. CK-MB levels ordered. Loculated pericardial effusion seen on echo as well. No indication for pericardiocentesis per cardiology at this time. Gastrointestinal: LFTs unremarkable 03/10/2022 Renal: Replace electrolytes per protocol. Urine output adequate. Lactic acid level ordered. Infectious disease: Influenza positive on Tamiflu. Urine and blood cultures negative to date. Patient empirically on Rocephin and doxycycline. Obtain procalcitonin today. If Pro-Jin negative, will discontinue antibiotics. Hematologic: Heparin infusion. Hemoglobin and platelet count Stable. Endocrine: TSH mildly low, but free T4 limits. F/E/N: N.p.o. Lines and tubes: Peripheral IV [place] catheter in place VTE prophylaxis: Heparin infusion CODE STATUS: Full code Family at bedside: Not available bedside at this time Disposition: ICU I have personally spent 52 minutes of critical care time in the direct ma nagement of this patient. This is a life/limb threatening event. This includes time spent evaluating patient, direct bedside care, chart review, placing orders, interpretation of diagnostic studies, discussion with consultants, patient, and family members, as well as other required patient management activities. This time is exclusive of all separately billable procedures, and teaching time and separate from and in addition to any other critical care service time. Thank you for allowing us to participate in the care of this patient. Admission and Anticipated Discharge Date Admission Date: March 10, 2022 Subjective Patient seen and examined this morning. Continues to be very anxious still requiring BiPAP support. She has increased work of breathing. She describes that she is short of breath. Denies chest pain. He is currently on a dobutamine infusion, Precedex infusion and heparin infusion. Review of Systems Review of Systems: All systems reviewed & are unremarkable except as noted in HPI & below Physical Exam Physical Exam: Constitutional: Frail appearing female laying in bed. Mild distress. BiPAP mask in place. Eyes: Pupils are equal round and reactive to light. Conjunctivae are normal. Anicteric sclera. Ears nose, mouth and throat: Difficult to examine given the BiPAP mask place ment. Neck: Trachea is midline. Visual inspection is normal. Respiratory: Prolonged phase of exhalation. Diffuse expiratory wheeze. Cardiovascular: Tachycardic. Regular rhythm.No murmurs. No edema. Gastrointestinal: Normal bowel sounds, soft, nontender and nondistended. No hepatosplenomegaly noted. Musculoskeletal: No cyanosis. Patient is able to move all extremities. Skin: No rashes, warm dry and intact. Neurologic: No obvious focal neurological deficits seen. Psychiatric: Mildly anxious appearing. Alert and oriented x3. Results & Data Results & Data ([facility]) Vital Signs (Past 12 Hours) Vital Signs Temp Pulse Pulse Resp BP Pulse Ox 03/12/22 07:26 113 H 113 H 22 97 03/12/22 06:00 93 H 7 L 141/96 H 97 03/12/22 05:24 101 H 101 H 24 99 03/12/22 05:00 106 H 7 L 148/101 H 100 03/12/22 04:00 36.5 C 93 H 10 L 138/95 100 03/12/22 03:30 92 H 22 99 03/12/22 03:00 93 H 26 H 137/107 H 100 03/12/22 02:15 93 H 22 123/99 100 03/12/22 01:00 92 H 21 122/87 100 03/12/22 00:37 90 21 99 03/12/22 00:31 92 H 26 H 133/92 100 03/12/22 00:00 36.6 C 92 H 19 112/88 100 03/11/22 23:39 83 23 99 03/11/22 23:00 90 22 133/86 100 03/11/22 22:00 90 21 125/89 100 03/11/22 21:00 89 20 117/82 100 03/11/22 20:05 96 H 96 H 25 H 99 03/11/22 20:00 36.5 C 98 H 26 H 125/92 100 Coding Level of Care Code Critical Care 1st 30-74 mins Diagnoses Acute respiratory failure with hypercapnia J96.02 Acute exacerbation of chronic obstructive pulmonary disease J44.1 Acute systolic heart failure I50.21 Anxiety F41.9 Time Spent (min) 52
[2022-03-12] MEDS: ASPIRIN 81 MG ECTAB PO SCH (08:44)
[2022-03-12] MEDS: methylPREDNISolone 40 MG in SYRINGE 0 ML IV SCH ×3 (08:44→20:46)
[2022-03-12] MEDS: FOLIC ACID 1 MG TAB PO SCH (08:45)
[2022-03-12] MEDS: CHOLECALCIFEROL 1,000 UNITS 25 MCG TAB PO SCH (08:45)
[2022-03-12] MEDS: UMECLIDINIUM BROMIDE 62.5MCG/BLISTER 7 PUFFS/INHALER INH SCH (08:45)
[2022-03-12] MEDS: FLUTICASONE FUROATE 200MCG 14 PUFFS/INHALER INH SCH (08:45)
[2022-03-12] MEDS: OSELTAMIVIR PHOSPHATE SUSP 30 MG/5 ML UDP PO SCH (08:46)
[2022-03-12] MEDS: DOXYCYCLINE HYCLATE 100 MG in DEXTROSE 5% 100 ML IV SCH ×2 (08:51→20:46)
[2022-03-12] MEDS: IPRATROPIUM BROMIDE NEB SOLN 0.02% 2.5 ML VIAL INH PRN (10:08)
--- NOTE | 2022-03-12 10:16 | Cardiology Consultation ---
Date of Consultation March 12, 2022 Assessment & Plan (1) Acute systolic heart failure: (2) Acute respiratory failure with hypercapnia: (3) Influenza A: (4) Neurofibromatosis: (5) Acute exacerbation of chronic obstructive pulmonary disease: (6) Cavernous hemangioma of brain: (7) Chronic pericarditis with effusion: Very complex patient admitted with influenza way and respiratory failure. Which is multifactorial including exacerbation of COPD and systolic heart failure. Agree with the management so far. History of Present Illness Attending Physician: Sanchez Hutchinson MD History of Present Illness This is a very complicated 56-year-old female. She has been seen in our clinic most recently in January. She has a history of coronary artery disease and had an inferior wall myocardial infarction interrupted with a bare-metal stent in 2010. She also has a history of severe COPD and previous smoking history. She was evaluated for lung transplant at [facility] in [place] and was turned down. She has a history of a chronic pericardial effusion and on the most recent echoes has remained stable and small. She has a history of a cerebellar cavernoma. The cavernosum malformation has been deemed as a risk for bleeding if started on dual antiplatelet therapy or long-term anticoagulation. She has a history of acute renal failure and rhabdomyolysis after starting Crestor. She has a history of symptomatic PACs that have been treated with metoprolol. The patient was admitted to the ICU Influenza a, hypercapnia and respiratory failure. An echocardiogram obtained this hospital admission shows a dilated left ventricle with severe global hypokinesis and estimated left ventricular ejection fraction of around 20 to 25%. It also shows thickening of the pericardium and a small pericardial effusion consistent with chronic pericarditis. Probable not tamponade but certainly possibility of constrictive process cannot be excluded by echocardiography. Earlier this morning the patient was intubated and placed on a respirator. She is receiving dobutamine for inotropic support. Currently stable. Past medical history: 1.History of CAD (BMS to RCA in 2010), negative nuclear stress test 02/2021. No anginal symptoms. 2.COPD - f/u with pulm. Oxygen dependent. 3.Supraventricular ectopy and SVT - controlled with metoprolol. 4.Rhabdomyolysis March 2021 due to statin. Statin contraindicated 5.Dyslipidemia - goal < 70 given history of CAD 6.Right cerebellar cavernoma - high risk for bleeding/hemorrhage per neurology and recent MRI, avoid dual antiplatelet therapy/anticoagulation. 7.Pericardial effusion, small/chronic - unchanged 8.Hypotension - asymptomatic. Allergies Allergy/AdvReac Type Severity Reaction Status Date / Time ibuprofen Allergy Intermediate Unknown Verified 03/10/22 08:38 NSAIDS (Non-Steroidal Allergy Intermediate Unknown Verified 03/10/22 08:38 Anti-Inflamma Sulfa (Sulfonamide Allergy Intermediate HIVES Verified 03/10/22 08:38 Antibiotics) adhesive Allergy Mild BANDAIDS Verified 03/10/22 08:38 SKIN ABRASION ketorolac [From Toradol] Allergy Mild Unknown Verified 03/10/22 08:38 adhesive tape Allergy Unknown Unknown Verified 03/10/22 08:38 tramadol Allergy Unknown . Verified 03/10/22 08:19 rosuvastatin [From Crestor] AdvReac Intermediate Weakness Verified 03/10/22 08:19 prednisone AdvReac Mild Patient Unverified 03/10/22 08:38 Reports Contraindication in Kidney Failure meperidine AdvReac Unknown MOOD SWINGS Verified 03/10/22 08:19 Home Medications Medication Instructions Recorded Confirmed Type albuterol sulfate 90 mcg/actuation 2 puff INHALATION Q4H PRN 03/10/22 03/10/22 History aerosol inhaler ascorbic acid (vitamin C) 500 mg 500 mg PO DAILY 03/10/22 03/10/22 History tablet (Vitamin C) aspirin 81 mg tablet,delayed 81 mg PO DAILY 03/10/22 03/10/22 History release calcium carbonate 600 mg-vitamin 1 tab PO DAILY 03/10/22 03/10/22 History D3 10 mcg (400 unit) tablet (Calcium 600 + D(3)) cholecalciferol (vitamin D3) 50 50 mcg PO DAILY 03/10/22 03/10/22 History mcg (2,000 unit) tablet (Vitamin D3) cyanocobalamin (vitamin B-12) 100 mcg IM MO 03/10/22 03/10/22 History 1,000 mcg/mL injection solution evolocumab 420 mg/3.5 mL 420 mg SUBCUT MO 03/10/22 03/10/22 History subcutaneous wearable injector (Repatha Pushtronex) fluticasone propionate 110 2 puff INHALATION BID 03/10/22 03/10/22 History mcg/actuation HFA aerosol inhaler (Flovent HFA) folic acid 1 mg tablet 1 mg PO DAILY 03/10/22 03/10/22 History ipratropium 0.5 mg-albuterol 3 mg 3 ml INHALATION QID PRN 03/10/22 03/10/22 History (2.5 mg base)/3 mL nebulization soln levothyroxine 75 mcg tablet 75 mcg PO DAILY 03/10/22 03/10/22 History (Synthroid) lorazepam 0.5 mg tablet 0.5 mg PO DAILY PRN 03/10/22 03/10/22 History metoprolol succinate 25 mg 12.5 mg PO HS 03/10/22 03/10/22 History tablet,extended release 24 hr metoprolol succinate 25 mg 25 mg PO QAM 03/10/22 03/10/22 History tablet,extended release 24 hr omeprazole 20 mg capsule,delayed 20 mg PO BID 03/10/22 03/10/22 History release pregabalin 75 mg capsule 75 mg PO TID 03/10/22 03/10/22 History tiotropium 2.5 mcg-olodaterol 2.5 2 puff INHALATION DAILY 03/10/22 03/10/22 History mcg/actuation mist for inhalation (Stiolto Respimat) tizanidine 4 mg tablet 2 mg PO Q8H PRN 03/10/22 03/10/22 History trazodone 100 mg tablet 100 mg PO HS 03/10/22 03/10/22 History Patient History Medical History (Updated 03/13/22 @ 08:40 by Lex Modi MD) Acute exacerbation of chronic obstructive pulmonary disease (COPD) SEVERE EMPHYSEMA Acute respiratory failure with hypoxia Acute systolic heart failure UNRULY (acute kidney injury) CAD (coronary artery disease) Cavernous hemangioma of brain Gastroparesis Hx of bronchitis Hypokalemia CAN NOT TOLERATE PO POTASSIUM PILLS DUE TO GASTROPARESIS Myocardial infarction 2010 - CHEST PAIN -[facility] ER AND HAD HEART CATH WITH ONE STENT (BARE METAL) FOLLOW WITH [facility] Neurofibromatosis Pneumothorax AGE 24 - SURGERY TO REPAIR THE LEFT SIDE AND CHEMICAL TREATMENT ON THE RIGHT SIDE AT [facility] 2013 ONLY HAD ONE -- ADMITTED TO [facility] --- METABOLIC RELATED ---- NO MEDICATION Shortness of breath Volume overload Surgical History History of hernia repair UMBILICAL Hx of cardiac cath 2010 HEART CATH WITH ONE STENT Hx of section X2 Hx of colonoscopy Hx of vaginal surgery 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 Family History Father Lung disease Severe emphysema, pneumothorax Social History Smoking Status: Current every day smoker Tobacco Type: Cigarettes Age Started Using Tobacco: 11; Age Quit Using Tobacco: 53; packs per day: 1; Years Smoked: 42; Cigarettes Per Day: 5; Number of Years Since Quit: 1; Second Hand Exposure: No; Hx Alcohol Use: No Hx Substance Use: No Preferred Language: Icelandic Communication Ability: Unable Sorter Operator Required: No Beliefs That Will Affect Care: None marital status: Current Living Situation: Spouse Other Information That Helps Us Care for You: No Feels Safe at Home: Yes Safety Concerns: Feels Safe At This Time Assistive Devices: Denture - Upper, Denture - Lower and Oxygen - Continuous Review of Systems Review of Systems: Not obtainable Physical Exam Physical Exam: General: Sedated and on the ventilator Head: normocephalic, no masses, lesions, tenderness or abnormalities Eyes: conjunctiva are pink and non-injected, sclera clear Neck: supple, no adenopathy, no bruits, normal jugular venous pulse, no hepatojugular reflux Chest: normal shape and normal respiratory effort Lungs: clear to auscultation and percussion Cardiac Exam: - regular rate & rhythm, no murmurs gallops or rubs - normal S1, normal S2 Pulses: 2(+) throughout Abdomen: abdomen soft, non-tender, no abnormal masses and no hepatosplenomegaly Musculoskeletal: no gait disturbance, no joint inflammation, no deforming arthritis Extremities: no edema and no cyanosis Neuro: grossly normal exam Results & Data ([facility]) Vital Signs (Past 12 Hours) Vital Signs Temp Pulse Pulse Resp BP Pulse Ox 03/12/22 10:09 103 H 105 H 20 98 03/12/22 07:26 113 H 113 H 22 97 03/12/22 06:00 93 H 7 L 141/96 H 97 03/12/22 05:24 101 H 101 H 24 99 03/12/22 05:00 106 H 7 L 148/101 H 100 03/12/22 04:00 36.5 C 93 H 10 L 138/95 100 03/12/22 03:30 92 H 22 99 03/12/22 03:00 93 H 26 H 137/107 H 100 03/12/22 02:15 93 H 22 123/99 100 03/12/22 01:00 92 H 21 122/87 100 03/12/22 00:37 90 21 99 03/12/22 00:31 92 H 26 H 133/92 100 03/12/22 00:00 36.6 C 92 H 19 112/88 100 03/11/22 23:39 83 23 99 03/11/22 23:00 90 22 133/86 100 Laboratory Results Laboratory Results - last 24 hr 03/11/22 03/11/22 03/11/22 13:56 14:19 18:14 WBC RBC Hgb POC Hgb 12.2 Hct POC Hct 36 L MCV MCH MCHC RDW Std Deviation RDW Coeff of Akiko Plt Count MPV Immature Gran % (Auto) Neut % (Auto) Lymph % (Auto) [place] % (Auto) Eos % (Auto) Baso % (Auto) Neut # (Auto) Lymph # (Auto) [place] # (Auto) Eos # (Auto) Baso # (Auto) Immature Gran # (Auto) APTT PTT Ratio Sample Site R Radial POC pH 7.21 L POC pCO2 54 H POC pO2 64 L POC HCO3 22 POC Total CO2 23 L POC Base Excess -6.0 ABG pH (Temp Correct) 7.218 L ABG pCO2 (Temp Corrct 53 H POC ABG pO2 at Pt Temp 62 POC ABG O2 Sat 87.0 L Joao Test Pass O2 Delivery Device BIPAP POC O2 Rate 18 Minute Ventilation POC FiO2 24 Tidal Volume PEEP IPAP 16 POC Sodium 140 Sodium POC Potassium 3.9 Potassium Chloride Carbon Dioxide Anion Gap BUN Creatinine Est Cr Clr Drug Dosing Est GFR ( Amer) Est GFR (Non-Af Amer) BUN/Creatinine Ratio Glucose POC Glucose 152 H Lactate Calcium Phosphorus Magnesium Creatine Kinase Total Creatine Kinase CK-MM (CK-3) CK-MB (CK-2) CK-BB (CK-1) Creatine Kinase Interp Troponin I High Sens 96.8 H* D B-Natriuretic Peptide Procalcitonin Nasal Screen MRSA (PCR) 03/11/22 03/11/22 03/12/22 19:14 19:14 01:48 WBC RBC Hgb POC Hgb Hct POC Hct MCV MCH MCHC RDW Std Deviation RDW Coeff of Akiko Plt Count MPV Immature Gran % (Auto) Neut % (Auto) Lymph % (Auto) [place] % (Auto) Eos % (Auto) Baso % (Auto) Neut # (Auto) Lymph # (Auto) [place] # (Auto) Eos # (Auto) Baso # (Auto) Immature Gran # (Auto) APTT PTT Ratio Sample Site POC pH POC pCO2 POC pO2 POC HCO3 POC Total CO2 POC Base Excess ABG pH (Temp Correct) ABG pCO2 (Temp Corrct POC ABG pO2 at Pt Temp POC ABG O2 Sat Joao Test O2 Delivery Device POC O2 Rate Minute Ventilation POC FiO2 Tidal Volume PEEP IPAP POC Sodium Sodium POC Potassium Potassium Chloride Carbon Dioxide Anion Gap BUN Creatinine Est Cr Clr Drug Dosing Est GFR ( Amer) Est GFR (Non-Af Amer) BUN/Creatinine Ratio Glucose POC Glucose Lactate Calcium Phosphorus Magnesium Creatine Kinase Pending Total Creatine Kinase 340 H CK-MM (CK-3) Pending CK-MB (CK-2) Pending CK-BB (CK-1) Pending Creatine Kinase Interp Pending Troponin I High Sens 130.1 H* D B-Natriuretic Peptide Procalcitonin Nasal Screen MRSA (PCR) 03/12/22 03/12/22 03/12/22 01:48 05:36 05:53 WBC 9.57 RBC 4.11 L Hgb 13.0 POC Hgb Hct 38.3 POC Hct MCV 93.2 MCH 31.6 MCHC 33.9 RDW Std Deviation 45.7 RDW Coeff of Akiko 13.3 Plt Count 152 MPV 10.5 H Immature Gran % (Auto) 0.1 Neut % (Auto) 85.0 Lymph % (Auto) 10.6 [place] % (Auto) 4.2 Eos % (Auto) 0.0 Baso % (Auto) 0.1 Neut # (Auto) 8.14 H Lymph # (Auto) 1.01 L [place] # (Auto) 0.40 Eos # (Auto) 0.00 Baso # (Auto) 0.01 Immature Gran # (Auto) 0.01 APTT 108.7 H* PTT Ratio 4.0 Sample Site R Radial POC pH 7.33 L POC pCO2 44 POC pO2 257 H POC HCO3 23 POC Total CO2 25 POC Base Excess -3.0 ABG pH (Temp Correct) ABG pCO2 (Temp Corrct POC ABG pO2 at Pt Temp POC ABG O2 Sat 100.0 H Joao Test Pass O2 Delivery Device BIPAP POC O2 Rate 18 Minute Ventilation POC FiO2 28 Tidal Volume PEEP IPAP 16 POC Sodium Sodium POC Potassium Potassium Chloride Carbon Dioxide Anion Gap BUN Creatinine Est Cr Clr Drug Dosing Est GFR ( Amer) Est GFR (Non-Af Amer) BUN/Creatinine Ratio Glucose POC Glucose Lactate Calcium Phosphorus Magnesium Creatine Kinase Total Creatine Kinase CK-MM (CK-3) CK-MB (CK-2) CK-BB (CK-1) Creatine Kinase Interp Troponin I High Sens B-Natriuretic Peptide Procalcitonin Nasal Screen MRSA (PCR) 03/12/22 03/12/22 03/12/22 05:53 08:31 08:31 WBC RBC Hgb POC Hgb Hct POC Hct MCV MCH MCHC RDW Std Deviation RDW Coeff of Akiko Plt Count MPV Immature Gran % (Auto) Neut % (Auto) Lymph % (Auto) [place] % (Auto) Eos % (Auto) Baso % (Auto) Neut # (Auto) Lymph # (Auto) [place] # (Auto) Eos # (Auto) Baso # (Auto) Immature Gran # (Auto) APTT PTT Ratio Sample Site POC pH POC pCO2 POC pO2 POC HCO3 POC Total CO2 POC Base Excess ABG pH (Temp Correct) ABG pCO2 (Temp Corrct POC ABG pO2 at Pt Temp POC ABG O2 Sat Joao Test O2 Delivery Device POC O2 Rate Minute Ventilation POC FiO2 Tidal Volume PEEP IPAP POC Sodium Sodium Pending POC Potassium Potassium Pending Chloride Pending Carbon Dioxide Pending Anion Gap Pending BUN Pending Creatinine Pending Est Cr Clr Drug Dosing Pending Est GFR ( Amer) Pending Est GFR (Non-Af Amer) Pending BUN/Creatinine Ratio Pending Glucose Pending POC Glucose Lactate 0.8 Calcium Pending Phosphorus Pending Magnesium Pending Creatine Kinase Total Creatine Kinase CK-MM (CK-3) CK-MB (CK-2) CK-BB (CK-1) Creatine Kinase Interp Troponin I High Sens 89.5 H* D 97.3 H* B-Natriuretic Peptide Procalcitonin Nasal Screen MRSA (PCR) 03/12/22 03/12/22 03/12/22 08:31 08:31 09:45 WBC RBC Hgb POC Hgb Hct POC Hct MCV MCH MCHC RDW Std Deviation RDW Coeff of Akiko Plt Count MPV Immature Gran % (Auto) Neut % (Auto) Lymph % (Auto) [place] % (Auto) Eos % (Auto) Baso % (Auto) Neut # (Auto) Lymph # (Auto) [place] # (Auto) Eos # (Auto) Baso # (Auto) Immature Gran # (Auto) APTT PTT Ratio Sample Site POC pH POC pCO2 POC pO2 POC HCO3 POC Total CO2 POC Base Excess ABG pH (Temp Correct) ABG pCO2 (Temp Corrct POC ABG pO2 at Pt Temp POC ABG O2 Sat Joao Test O2 Delivery Device POC O2 Rate Minute Ventilation POC FiO2 Tidal Volume PEEP IPAP POC Sodium Sodium POC Potassium Potassium Chloride Carbon Dioxide Anion Gap BUN Creatinine Est Cr Clr Drug Dosing Est GFR ( Amer) Est GFR (Non-Af Amer) BUN/Creatinine Ratio Glucose POC Glucose Lactate Calcium Phosphorus Magnesium Creatine Kinase Total Creatine Kinase CK-MM (CK-3) CK-MB (CK-2) CK-BB (CK-1) Creatine Kinase Interp Troponin I High Sens B-Natriuretic Peptide 682 H Procalcitonin 5.92 H Nasal Screen MRSA (PCR) Pending 03/12/22 03/12/22 10:04 12:50 WBC RBC Hgb POC Hgb Hct POC Hct MCV MCH MCHC RDW Std Deviation RDW Coeff of Akiko Plt Count MPV Immature Gran % (Auto) Neut % (Auto) Lymph % (Auto) [place] % (Auto) Eos % (Auto) Baso % (Auto) Neut # (Auto) Lymph # (Auto) [place] # (Auto) Eos # (Auto) Baso # (Auto) Immature Gran # (Auto) APTT 73.4 H* PTT Ratio 2.7 Sample Site R Radial POC pH 7.27 L POC pCO2 48 H POC pO2 82 POC HCO3 22 POC Total CO2 23 L POC Base Excess -5.0 ABG pH (Temp Correct) ABG pCO2 (Temp Corrct POC ABG pO2 at Pt Temp POC ABG O2 Sat 94.0 Joao Test Pass O2 Delivery Device Ventilator POC O2 Rate 20 Minute Ventilation 8 POC FiO2 40 Tidal Volume 400 PEEP 5 IPAP POC Sodium Sodium POC Potassium Potassium Chloride Carbon Dioxide Anion Gap BUN Creatinine Est Cr Clr Drug Dosing Est GFR ( Amer) Est GFR (Non-Af Amer) BUN/Creatinine Ratio Glucose POC Glucose Lactate Calcium Phosphorus Magnesium Creatine Kinase Total Creatine Kinase CK-MM (CK-3) CK-MB (CK-2) CK-BB (CK-1) Creatine Kinase Interp Troponin I High Sens B-Natriuretic Peptide Procalcitonin Nasal Screen MRSA (PCR) Medications Administered Current Inpatient Medications Acetaminophen (Acetaminophen 325 Mg Tab) 650 mg PO Q4H PRN PRN Reason: Pain or Fever Stop: 04/09/22 10:31 Aspirin (Aspirin 81 Mg Ectab) 81 mg PO DAILY [facility] Stop: 04/09/22 10:31 Last Admin: 03/12/22 08:44 Dose: 81 mg Documented by: Enoxaparin Sodium (Enoxaparin Inj 40 Mg/0.4 Ml Syr) 40 mg SQ QAM [facility] Stop: 04/09/22 10:31 Last Admin: 03/11/22 09:41 Dose: 40 mg Documented by: Enteral Nutritional Formula (Peptamen 1.5 Jin 1,000 Ml Bag) 1,000 ml OG UD [facility]; Protocol Stop: 04/11/22 13:14 Fentanyl Citrate (Fentanyl Bolus From Bag) 50 mcg IV Q60M PRN PRN Reason: Pain or Agitation Stop: 03/26/22 10:46 Fluticasone/Vilanterol (Fluticasone/Vilanterol 100/25mcg 14 Puffs/Inhaler) 1 puffs INH DAILY [facility] Stop: 04/11/22 10:59 Last Admin: 03/12/22 11:03 Dose: Not Given Documented by: Folic Acid (Folic Acid 1 Mg Tab) 1 mg PO QAM [facility] Stop: 04/09/22 10:31 Last Admin: 03/12/22 08:45 Dose: Not Given Documented by: Doxycycline Hyclate 100 mg/ (Dextrose) 110 mls @ 50 mls/hr IV Q12 [facility]; Protocol Stop: 03/18/22 11:29 Last Infusion: 03/12/22 11:57 Dose: Infused Documented by: Dexmedetomidine/Sodium Chloride (Precedex) 200 mcg in 50 mls @ 5.28 mls/hr IV .Q9H29M [facility]; Protocol Stop: 03/15/22 12:59 Last Titration: 03/12/22 11:57 Dose: Infused Documented by: Dobutamine HCl/Dextrose (Dobutamine / D5w) 500 mg in 250 mls @ 3.96 mls/hr IV .Q24H [facility]; Protocol Stop: 04/10/22 18:29 Last Titration: 03/12/22 11:57 Dose: 2.5 mcg/kg/min, 4 mls/hr Documented by: Heparin Sodium/Dextrose (Heparin Sodium/Dextrose) 25,000 units in 500 mls @ 15 mls/hr IV .Q24H [facility]; Protocol Stop: 04/10/22 18:44 Last Titration: 03/12/22 12:02 Dose: 750 units/hr, 15 mls/hr Documented by: Methylprednisolone 40 mg/ (Syringe) 0.64 mls @ 1.5 mls/min IV TID [facility] Stop: 04/11/22 08:59 Last Admin: 03/12/22 08:44 Dose: 1.5 mls/min Documented by: Pantoprazole Sodium 40 mg/ (Syringe) 10 mls @ 5 mls/min IV DAILY@1100 [facility] Stop: 04/11/22 10:59 Last Admin: 03/12/22 11:04 Dose: 5 mls/min Documented by: Propofol (Diprivan) 1,000 mg in 100 mls @ 6.372 mls/hr IV .[id number] [facility]; Protocol Stop: 03/15/22 10:59 Last Titration: 03/12/22 11:57 Dose: 20 mcg/kg/min, 6.4 mls/hr Documented by: Fentanyl Citrate (Fentanyl Citrate) 2,500 mcg in 250 mls @ 15 mls/hr IV .[id number] [facility]; Protocol Stop: 03/26/22 10:59 Last Titration: 03/12/22 11:57 Dose: 150 mcg/hr, 15 mls/hr Documented by: Cefepime HCl 2,000 mg/ Syringe 20 mls @ 5 mls/min IV Q12H [facility]; Protocol Stop: 03/19/22 11:59 Last Admin: 03/12/22 12:02 Dose: 5 mls/min Documented by: Ipratropium [place] (Ipratropium [place] Neb Soln 0.02% 2.5 Ml Vial) 0.5 mg INH Q2R PRN PRN Reason: Shortness Of Breath Or Wheezing Stop: 04/09/22 10:31 Last Admin: 03/12/22 10:08 Dose: 0.5 mg Documented by: Ipratropium [place] (Ipratropium [place] Neb Soln 0.02% 2.5 Ml Vial) 0.5 mg INH Q6R [facility] Stop: 04/09/22 12:59 Last Admin: 03/12/22 12:55 Dose: 0.5 mg Documented by: Levalbuterol HCl (Levalbuterol Hcl 1.25 Mg/3 Ml Neb) 1.25 mg NEB Q2R PRN; Protocol PRN Reason: Shortness Of Breath Or Wheezing Stop: 04/09/22 10:31 Last Admin: 03/12/22 12:55 Dose: 1.25 mg Documented by: Levalbuterol HCl (Levalbuterol 1.25mg/0.5ml Neb) 1.25 mg INH Q6R [facility] Stop: 04/09/22 12:59 Last Admin: 03/12/22 12:55 Dose: Not Given Documented by: Levothyroxine Sodium (Levothyroxine Sodium 75 Mcg Tablet) 75 mcg PO DAILYBB [facility] Stop: 04/10/22 06:29 Last Admin: 03/12/22 04:19 Dose: Not Given Documented by: Metoprolol Succinate (Metoprolol Succ 25mg Ext Rel Tab) 25 mg PO QAM [facility] Stop: 04/09/22 10:31 Last Admin: 03/11/22 11:36 Dose: Not Given Documented by: Metoprolol Succinate (Metoprolol Succ 25mg Ext Rel Tab) 12.5 mg PO QPM [facility] Stop: 04/09/22 20:59 Last Admin: 03/10/22 21:17 Dose: 12.5 mg Documented by: Nitroglycerin (Nitroglycerin Sl 0.4 Mg/Tab Tab) 0.4 mg SL UD PRN PRN Reason: Chest Pain Stop: 04/09/22 10:31 Ondansetron HCl (Ondansetron Inj 2 Mg/Ml 2 Ml Vial) 4 mg IV Q6H PRN PRN Reason: Nausea And Vomiting Stop: 04/09/22 20:41 Last Admin: 03/11/22 07:32 Dose: 4 mg Documented by: Pantoprazole Sodium (Pantoprazole 40 Mg Tab) 40 mg PO DAILY [facility] Stop: 04/09/22 10:31 Last Admin: 03/11/22 11:36 Dose: Not Given Documented by: Polyethylene Glycol (Polyethylene (Miralax) 17 Gm Pack) 17 gm PO DAILY PRN PRN Reason: Constipation Stop: 04/09/22 10:31 Pregabalin (Pregabalin 75 Mg Cap) 75 mg PO TID [facility] Stop: 04/10/22 13:59 Last Admin: 03/11/22 14:14 Dose: Not Given Documented by: Propofol (Propofol Bolus From Bag) 20 mg IV Q5M PRN PRN Reason: Sedation Stop: 03/15/22 10:46 Sterile Water (Tube Feeding Water Flush) 30 ml OG Q4H [facility] Stop: 04/11/22 12:59 Tizanidine HCl (Tizanidine Hcl 4 Mg Tablet) 2 mg PO TID PRN PRN Reason: Muscle Spasm Stop: 04/09/22 10:31 Last Admin: 03/10/22 12:02 Dose: 2 mg Documented by: Umeclidinium [place] (Umeclidinium [place] 62.5mcg/Blister 7 Puffs/Inhaler) 1 puffs INH [facility]; Protocol Stop: 04/09/22 10:59 Last Admin: 03/12/22 08:45 Dose: 1 puffs Documented by: Vitamin D (Cholecalciferol 1,000 Units 25 Mcg Tab) 2,000 units PO QAM [facility] Stop: 04/09/22 10:31 Last Admin: 03/12/22 08:45 Dose: Not Given Documented by:
[2022-03-12] MEDS ORDERED: STAT IV Infusion **Titration per Protocol STA ×2 (10:47→17:13)
[2022-03-12] MEDS ORDERED: ROCURONIUM BROMIDE 10 MG/ML 5 ML VIAL IV STA (10:47)
[2022-03-12] MEDS ORDERED: ETOMIDATE 2 MG/ML 20 ML VIAL IV ONE (10:47)
[2022-03-12 10:55] LABS: Partial Thromboplastin Ratio 2.7
[2022-03-12] MEDS: fentaNYL citrate 2,500 MCG/250 ML BAG IV SCH ×2 (11:03→22:07)
[2022-03-12] MEDS: FLUTICASONE/VILANTEROL 100/25MCG 14 PUFFS/INHALER INH SCH (11:03)
[2022-03-12] MEDS: propofoL 1,000 MG/100 ML VIAL IV SCH ×2 (11:03→20:00)
[2022-03-12] MEDS: PANTOprazole 40 MG in SYRINGE 0 ML IV SCH (11:04)
--- NOTE | 2022-03-12 11:39 | Procedure Note ---
Procedure Note Date of Service March 12, 2022 Supervising Physician Co-Signing Physician Notes INTUBATION PROCEDURE NOTE: Dr. Lex Modi A time-out was completed verifying correct patient, procedure, site, positioning. Patient was evaluated and required intubation for hypoxemic respiratory failure Sedative agent used: 20 mg of etomidate Paralysis agent used: 35 mg rocuronium Emergent consent was implied given patients rapidly declining clinical status and need for airway protection. Number of attempts: 1 The patient was prepared in the appropriate fashion. Sedation was achieved utilizing etomidate and rocuronium. The patient was easily ventilated using [id number] to achieve adequate oxygenation. A 7.5 Filipino endotracheal tube was placed under video laryngoscope guidance to 22 cm at the lip. The stylette was removed and balloon was inflated with 10mL of air. Appropriate Colorimetric change was appreciated. Bilateral breath sounds were heard without air sounds in the abdomen. Post Intubation Chest X-ray ordered Patient tolerated the procedure well and there were no immediate complications. Coding CPT Codes Resuscitation - Resuscitation: 56535 Endotracheal Intubation, emergency ([id number]) [facility] [place] Procedure Codes (Charges) Resuscitation Resuscitation: 13535 Endotracheal Intubation, emergency
[2022-03-12 11:41] LABS: Partial Thromboplastin Time 73.4 Seconds (21.0-31.0)
[2022-03-12] MEDS: CEFEPIME 2,000 MG in SYRINGE 0 ML IV SCH ×2 (12:02→23:25)
--- NOTE | 2022-03-12 12:07 | XRay Report ---
XR chest 1V portable CLINICAL HISTORY: s/p intubation COMPARISON STUDY: Chest radiograph March 11, 2022. FINDINGS: Tip of endotracheal tube is 3.7 cm above the yue. Tip of nasogastric tube is below the l ower aspect of this image but at least within the body of the stomach. No pneumothorax or pleural eff usion is noted. Emphysema is present. Mild left lung airspace opacities have improved. Left apical po stoperative findings are incidentally noted. IMPRESSION: 1. Satisfactory positioning of the endotracheal tube. 2. Interval improvement in left lung airspace opacities. 3. Emphysema. ACT 112: Negative or not required by law. Electronically signed by: Shaheed Xiong M.D. 03/12/2022 12:05 PM
[2022-03-12 13:14] LABS: iSTAT Allen Test Pass; iSTAT Arterial Blood Gas HCO3 22 meg/L (19-24); iSTAT Arterial Blood Gas pCO2 48 mmHg (35-46); iSTAT Arterial Blood Gas pH 7.27 (7.35-7.45); iSTAT Arterial Blood Gas pO2 82 mmHg (80-95); iSTAT Carbon Dioxide 23 mmol/L (24-31); iSTAT FiO2 40 %; iSTAT Site R Radial
[2022-03-12] MEDS: TUBE FEEDING WATER FLUSH OG SCH ×3 (14:01→20:47)
[2022-03-12 14:54] LABS: Calcium 8.9 mg/dl (8.5-10.1); Magnesium 2.2 mg/dl (1.7-2.4); Potassium 4.3 mmol/L (3.5-5.1)
[2022-03-12 15:03] LABS: BUN Creatinine Ratio 26.9 (10-20); Creatinine Clr Calc Pharmacy 43.7 ml/min; Est GFR (African American) 58.7 ml/min; Est GFR (Non-African American) 50.6 ml/min; Phosphorus 3.5 mg/dl (2.5-4.9)
--- NOTE | 2022-03-12 15:31 | Hospitalist Progress Note ---
Date of Service March 12, 2022 Assessment & Plan (1) Acute respiratory distress: Plan: Acute hypercarbic respiratory failure COPD exacerbation Influenza A CXR showed Ill-defined nodule versus airspace disease of the left upper lobe. Repeat CXR showed Interval improvement in left lung airspace opacities. - Patient has tenuous respiratory status and unable to wean off BIPAP. Had increasing work of breathing with ABG showing severe hypercapnia and acidosis and transferred to ICU for closer monitoring and possible need for intubation. 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 IVF stopped. Echo pending - Continue monitor closely in the ICU Elevated trop possible demand ischemia from respiratory distress. Trop slightly increased to 0.041 Currently on heparin drip Cadiology on board Systolic heart failure BNP on admission 682 ECHO showed dilated left ventricle with severe global hypokinesis and estimated left ventricular ejection fraction of around 20 to 25%.Thickening of the pericardium and a small pericardial effusion consistent with chronic pericarditis. Intubated on Vent support Cardiology on board Anxiety- hold off on benzos. Now on precedex drip. CAD s/p stenting Continue aspirin, betablocker and IV heparin drip GERD- On PPI Hypothyroidism- on synthroid DVT prophylaxis- Heparin drip Disposition Continue monitor closely in the ICU Admission and Anticipated Discharge Date Admission Date: March 10, 2022 Subjective Pt was seen and examined for follow up of respiratory failure Sedated and Intubated on vent support Nurse said pt asked to get intubated this morning because she said that she could not breath When I entered her room, was present. Pt opened eyed and she was gaging Nurse was able to suctioning her Review of Systems Review of Systems: All systems reviewed & are unremarkable except as noted in Subjective Physical Exam Physical Exam: General- Vent support on sedation Head- atraumatic Eyes- PERRL, EOMI, ENT- Intubated Neck- supple, no JVD Lungs- Diminished BS Heart- regular rhythm; no murmur Abdomen- normal bowel sounds, soft, nontender Extremities- no calf tenderness Neuro- Vent support, sedated Skin- warm & dry Results & Data Results & Data ([facility]) Vital Signs (Past 12 Hours) Vital Signs Temp Pulse Pulse Resp BP Pulse Ox 03/12/22 15:00 36.8 C 107 H 24 81/61 L 99 03/12/22 14:19 36.7 C 116 H 24 97/68 L 100 03/12/22 14:00 36.6 C 110 H 24 99 03/12/22 13:30 36.7 C 113 H 24 93/66 L 03/12/22 13:25 36.7 C 120 H 24 111/77 92 03/12/22 13:15 36.8 C 107 H 24 03/12/22 13:10 36.8 C 122 H 24 89/68 L 03/12/22 13:08 36.8 C 125 H 24 99/72 L 100 03/12/22 13:07 36.8 C 124 H 24 89/65 L 100 03/12/22 13:03 36.8 C 90 24 98 03/12/22 13:00 36.8 C 88 20 03/12/22 12:00 97 H 20 115/83 99 03/12/22 11:40 99 H 20 173/111 H 100 03/12/22 11:38 105 H 18 174/114 H 100 03/12/22 11:35 118 H 18 184/121 H 100 03/12/22 11:33 116 H 18 178/126 H 100 03/12/22 11:30 94 H 18 156/103 H 100 03/12/22 11:27 92 H 157/107 H 100 03/12/22 11:25 101 H 18 150/108 H 100 03/12/22 11:23 95 H 21 149/112 H 100 03/12/22 11:20 95 H 20 163/105 H 100 03/12/22 11:17 100 H 27 H 150/97 H 100 03/12/22 11:15 106 H 18 130/90 100 03/12/22 11:13 109 H 18 178/108 H 100 03/12/22 11:00 110 H 21 167/114 H 97 03/12/22 10:17 105 H 24 183/105 H 100 03/12/22 10:09 103 H 105 H 20 98 03/12/22 10:00 36.5 C 108 H 20 98 03/12/22 09:00 107 H 18 125/101 H 96 03/12/22 08:30 109 H 152/95 H 96 03/12/22 08:00 112 H 22 121/94 98 03/12/22 07:30 110 H 23 153/108 H 100 03/12/22 07:26 113 H 113 H 22 97 03/12/22 07:00 116 H 25 H 153/106 H 97 03/12/22 06:00 93 H 7 L 141/96 H 97 03/12/22 05:24 101 H 101 H 24 99 03/12/22 05:00 106 H 7 L 148/101 H 100 03/12/22 04:00 36.5 C 93 H 10 L 138/95 100 03/12/22 03:30 92 H 22 99
[2022-03-12] MEDS: PEPTAMEN 1.5 CAL 1,000 ML BAG OG SCH (16:02)
[2022-03-12] MEDS ORDERED: NOREPINEPHRINE/D5W 8 MG/508 ML IV ONE (17:14)
[2022-03-12] MEDS ORDERED: NOREPINEPHRINE/D5W 8 MG/508 ML BAG IV SCH (17:15)
[2022-03-12 19:36] LABS: Partial Thromboplastin Ratio 3.2
[2022-03-12 19:41] LABS: Partial Thromboplastin Time 88.2 Seconds (21.0-31.0)
[2022-03-13] MEDS: IPRATROPIUM BROMIDE NEB SOLN 0.02% 2.5 ML VIAL INH SCH ×4 (00:57→19:28)
[2022-03-13] MEDS: LEVALBUTEROL 1.25MG/0.5ML NEB INH SCH ×4 (00:57→19:28)
[2022-03-13] MEDS: TUBE FEEDING WATER FLUSH OG SCH ×6 (02:08→20:23)
[2022-03-13 02:26] LABS: Partial Thromboplastin Ratio 2.1
[2022-03-13 02:29] LABS: Partial Thromboplastin Time 57.1 Seconds (21.0-31.0)
[2022-03-13] MEDS: HEPARIN SODIUM/DEXTROSE 25,000 UNITS/500 ML BAG IV SCH (05:28)
[2022-03-13] MEDS: DOBUTamine / D5W 500 MG/250 ML BAG IV SCH ×2 (05:28→18:14)
[2022-03-13] MEDS: propofoL 1,000 MG/100 ML VIAL IV SCH ×2 (05:29→17:17)
[2022-03-13 06:00] LABS: iSTAT Allen Test Pass; iSTAT Art Bld Gas pCO2 Correct 44 mmHg (35-46); iSTAT Art Bld Gas pH Corrected 7.315 (7.35-7.45); iSTAT Arterial Blood Gas HCO3 23 meg/L (19-24); iSTAT Arterial Blood Gas pCO2 45 mmHg (35-46); iSTAT Arterial Blood Gas pH 7.31 (7.35-7.45); iSTAT Arterial Blood Gas pO2 90 mmHg (80-95); iSTAT Arterial Blood Gas pO2 C 87; iSTAT Carbon Dioxide 24 mmol/L (24-31); iSTAT FiO2 30 %; iSTAT Hematocrit 34 % (37-47); iSTAT Hemoglobin 11.6 g/dl (12.0-16.0); iSTAT Potassium 3.6 mmol/L (3.3-5.0); iSTAT Site R Radial; iSTAT Sodium 140 mmol/L (135-144)
[2022-03-13 06:01] LABS: Basophils # (auto) 0.02 K/uL (0-0.2); Basophils % (auto) 0.3 %; Hematocrit (blood only) 36.5 % (37-47); Hemoglobin 12.2 g/dL (12.0-16.0); Immature Granulocytes # (auto) 0.02 K/uL (0.00-0.02); Immature Granulocytes % (auto) 0.3 %; Lymphocytes # (auto) 0.64 K/uL (1.2-3.4); Mean Corpuscular Hemoglobin 31.1 pg (25-34); Mean Corpuscular Hgb Conc 33.4 g/dL (32-36); Mean Corpuscular Volume 93.1 fL (80-100); Mean Platelet Volume 10.6 fL (7.4-10.4); Monocytes # (auto) 0.25 K/uL (0.11-0.59); Monocytes % (auto) 4.3 %; Neutrophils # (auto) 4.88 K/uL (1.4-6.5); Neutrophils % (auto) 84.1 %; Platelet Count 158 K/uL (130-400); RDW Coefficient of Variation 13.9 % (11.5-14.5); RDW Standard Deviation 47.4 fL (36.4-46.3); Red Blood Count 3.92 M/uL (4.2-5.4); White Blood Count 5.81 K/uL (4.8-10.8)
[2022-03-13] MEDS: LEVOTHYROXINE SODIUM 75 MCG TABLET PO SCH (06:10)
[2022-03-13 06:29] LABS: Partial Thromboplastin Ratio 1.9
[2022-03-13 06:31] LABS: BUN Creatinine Ratio 26.7 (10-20); Calcium 8.3 mg/dl (8.5-10.1); Creatinine Clr Calc Pharmacy 43.9 ml/min; Est GFR (African American) 52.3 ml/min; Est GFR (Non-African American) 45.1 ml/min; Magnesium 2.2 mg/dl (1.7-2.4); Phosphorus 2.6 mg/dl (2.5-4.9); Potassium 3.6 mmol/L (3.5-5.1)
[2022-03-13 06:58] LABS: Partial Thromboplastin Time 52.8 Seconds (21.0-31.0)
[2022-03-13 07:00] LABS: Troponin I High Sensitivity 64.6 pg/ml (0-14)
--- NOTE | 2022-03-13 07:02 | XRay Report ---
XR chest 1V portable HISTORY: 56 years-old Female f/u acute respiratory failure COMPARISON: Chest radiograph 03/12/2022 TECHNIQUE: Portable AP view of the chest FINDINGS: Endotracheal tube overlies the midline, 3.1 cm superior to the yue. Enteric tube courses below the diaphragm with distal tip outside the [id number]. Surgical suture material of the left lung apex. The cardiomediastinal and hilar silhouettes are within normal limits. There is no pneumothorax, pleu ral effusion or overt pulmonary edema. Emphysema with chronic interstitial coarsening. Mild persisten t asymmetric left lung ill-defined interstitial opacities. The bones appear grossly intact. IMPRESSION: 1. The endotracheal and enteric tubes appear to be in satisfactory positioning. 2. Emphysema with mild persistent left lung opacities which may represent asymmetric pulmonary edema versus pneumonia. ACT 112: Negative or not required by law. The above report was generated using voice recognition software. It may contain grammatical, syntax o r spelling errors. Electronically signed by: Silas Santos M.D. 03/13/2022 7:01 AM
[2022-03-13] MEDS: LEVALBUTEROL HCL 1.25 MG/3 ML NEB NEB PRN ×2 (07:06→13:10)
[2022-03-13] MEDS: FOLIC ACID 1 MG TAB PO SCH (07:42)
[2022-03-13] MEDS: CHOLECALCIFEROL 1,000 UNITS 25 MCG TAB PO SCH (07:42)
[2022-03-13] MEDS: FLUTICASONE/VILANTEROL 100/25MCG 14 PUFFS/INHALER INH SCH (07:43)
[2022-03-13] MEDS: ASPIRIN 81 MG ECTAB PO SCH (07:43)
[2022-03-13] MEDS: UMECLIDINIUM BROMIDE 62.5MCG/BLISTER 7 PUFFS/INHALER INH SCH (07:44)
[2022-03-13] MEDS: methylPREDNISolone 40 MG in SYRINGE 0 ML IV SCH ×3 (07:50→20:23)
[2022-03-13] MEDS: DOXYCYCLINE HYCLATE 100 MG in DEXTROSE 5% 100 ML IV SCH ×2 (07:51→20:23)
[2022-03-13] MEDS ORDERED: ASPIRIN 81 MG CHEW ONE (07:59)
[2022-03-13] MEDS: ASPIRIN 81 MG CHEW NG SCH (08:00)
[2022-03-13] MEDS: fentaNYL citrate 2,500 MCG/250 ML BAG IV SCH ×2 (08:00→20:22)
--- NOTE | 2022-03-13 08:38 | Critical Care Progress Note ---
Date of Service March 13, 2022 Assessment & Plan (1) Acute respiratory failure with hypercapnia: (2) Acute exacerbation of chronic obstructive pulmonary disease: (3) Acute systolic heart failure: (4) Anxiety: (5) UNRULY (acute kidney injury): Plan: 56-year-old female with a past medical history of coronary artery disease and advanced COPD presenting to the hospital due to a COPD exacerbation and now found to have acute systolic CHF with an LVEF of 20 to 25%. Neurologic: Currently sedated with propofol and fentanyl. No evidence of encephalopathy prior to intubation. Pulmonary: Intubated 03/12/2022 due to hypercapnic respiratory failure. Continue 40 mg Solu -Medrol 3 times daily. She was apparently evaluated for lung transplant at an outside facility in the past and was not deemed a good candidate. Cardiovascular: Acute decompensated systolic CHF. Continue low-dose dobutamine infusion. Cardiology consultation appreciated. Considering left and right heart catheterization versus transfer to a tertiary care center for mechanical support of her cardiac output if her condition worsens. Heparin drip for 48 hours total. Troponin levels appear to have plateaued and trending down. proBNP 682. Viral myocarditis remains a possibility given her acute influenza infection. CK-MB levels ordered. Loculated pericardial effusion seen on echo as well. No indication for pericardiocentesis per cardiology at this time. Gastrointestinal: LFTs unremarkable 03/10/2022 Renal: Replace electrolytes per protocol. Urine output adequate. Mild UNRULY likely due to hypotension. Infectious disease: Influenza positive. Urine and blood cultures negative to date. Patient empirically on Rocephin and doxycycline. Obtain procalcitonin today. If Pro- Jin negative, will discontinue antibiotics. Hematologic: Heparin infusion. Hemoglobin and platelet count Stable. Endocrine: TSH mildly low, but free T4 limits. F/E/N: N.p.o. Lines and tubes: Peripheral IV Altamirano catheter in place VTE prophylaxis: Heparin infusion CODE STATUS: Full code Family at bedside: Not available bedside at this time Disposition: ICU I have personally spent 39 minutes of critical care time in the direct management of this patient. This is a life/limb threatening event. This includes time spent evaluating patient, direct bedside care, chart review, placing orders, interpretation of diagnostic studies, discussion with consultants, patient, and family members, as well as other required patient management activities. This time is exclusive of all separately billable procedures, and teaching time and separate from and in addition to any other critical care service time. Thank you for allowing us to participate in the care of this patient. Admission and Anticipated Discharge Date Admission Date: March 10, 2022 Subjective Patient seen and examined. Intubated and sedated presently. Appears comfortable. No significant rhinitis. Remains on low-dose Levophed and dobutamine. Review of Systems Review of Systems: Unobtainable due to endotracheal tube Physical Exam Physical Exam: Constitutional: Intubated and sedated Eyes: Pupils are equal round and reactive to light. Conjunctivae are normal. Anicteric sclera. Ears nose, mouth and throat: ET tube in place. Neck: Trachea is midline. Visual inspection is normal. Respiratory: Prolonged phase of exhalation. Diffuse expiratory wheeze. Cardiovascular: Tachycardic. Regular rhythm. No murmurs. No edema. Gastrointestinal: Normal bowel sounds, soft, nontender and nondistended. No hepatosplenomegaly noted. Musculoskeletal: No cyanosis. Patient is able to move all extremities. Skin: No rashes, warm dry and intact. Neurologic: Follows intermittent commands Psychiatric: Unable to assess due to intubation status Results & Data Results & Data ([facility]) Vital Signs (Past 12 Hours) Vital Signs Temp Pulse Pulse Resp BP Pulse Ox 03/13/22 07:05 103 H 24 97 03/13/22 07:00 37.0 C 103 H 24 103/68 96 03/13/22 06:00 37.1 C 108 H 24 93/64 L 97 03/13/22 05:00 36.9 C 98 H 24 117/76 98 03/13/22 04:30 36.9 C 102 H 24 117/78 98 03/13/22 04:00 36.9 C 107 H 24 119/83 98 03/13/22 03:30 36.8 C 107 H 24 116/77 98 03/13/22 03:00 36.8 C 107 H 24 109/75 98 03/13/22 02:30 36.8 C 111 H 24 99/75 L 97 03/13/22 02:00 36.8 C 114 H 24 105/69 97 03/13/22 01:30 36.7 C 114 H 24 99/71 L 98 03/13/22 01:14 36.6 C 111 H 24 107/70 98 03/13/22 01:02 110 H 24 97 04/21/22 01:00 36.6 C 104 H 21 106/73 96 03/13/22 00:00 36.6 C 112 H 24 105/78 97 03/12/22 23:53 36.6 C 106 H 25 H 114/77 97 03/12/22 23:30 36.2 C L 103 H 24 128/88 97 03/12/22 23:01 25.6 C L 111 H 24 117/82 89 L 03/12/22 23:00 36.5 C 112 H 24 95 03/12/22 22:30 36.7 C 111 H 24 115/73 95 03/12/22 22:00 36.7 C 116 H 24 103/66 03/12/22 21:02 94 H 24 98 03/12/22 21:00 36.6 C 120 H 24 111/77 97 Coding Level of Care Code Critical Care 1st 30-74 mins Diagnoses Acute respiratory failure with hypercapnia J96.02 Acute exacerbation of chronic obstructive pulmonary disease J44.1 Acute systolic heart failure I50.21 Anxiety F41.9 UNRULY (acute kidney injury) N17.9 Time Spent (min) 39
[2022-03-13] MEDS ORDERED: CALCIUM GLUCONATE 10% 1,000 MG in DEXTROSE 5% 50 ML IV ONE (08:40)
[2022-03-13] MEDS ORDERED: STAT IV STA (08:40)
--- NOTE | 2022-03-13 09:53 | Cardiology Progress Note ---
Date of Service March 13, 2022 Assessment & Plan (1) Acute systolic heart failure: (2) Acute respiratory failure with hypercapnia: (3) Influenza A: (4) Neurofibromatosis: (5) Acute exacerbation of chronic obstructive pulmonary disease: (6) Cavernous hemangioma of brain: (7) Chronic pericarditis with effusion: Plan: Very complex patient admitted with influenza A and respiratory failure. Which is multifactorial including exacerbation of COPD and systolic heart failure. The patient is making some progress. She is currently on a small amount of dobutamine and a small amount of Levophed was added for blood pressure while on propofol. Urine output is adequate. Hopefully she will move towards extubation soon. Admission and Anticipated Discharge Date Admission Date: March 10, 2022 Subjective The patient is intubated and sedated. Review of Systems Review of Systems: Not obtainable Physical Exam Physical Exam: General: Sedated and on the ventilator Head: normocephalic, no masses, lesions, tenderness or abnormalities Eyes: conjunctiva are pink and non-injected, sclera clear Neck: supple, no adenopathy, no bruits, normal jugular venous pulse, no hepatojugular reflux Chest: normal shape and normal respiratory effort Lungs: clear to auscultation and percussion Cardiac Exam: - regular rate & rhythm, no murmurs gallops or rubs - normal S1, normal S2 Pulses: 2(+) throughout Abdomen: abdomen soft, non-tender, no abnormal masses and no hepatosplenomegaly Musculoskeletal: no gait disturbance, no joint inflammation, no deforming a rthritis Extremities: no edema and no cyanosis Neuro: grossly normal exam Results & Data ([facility]) Vital Signs (Past 12 Hours) Vital Signs Temp Pulse Pulse Resp BP Pulse Ox 03/13/22 07:05 103 H 24 97 03/13/22 07:00 37.0 C 103 H 24 103/68 96 03/13/22 06:00 37.1 C 108 H 24 93/64 L 97 03/13/22 05:00 36.9 C 98 H 24 117/76 98 03/13/22 04:30 36.9 C 102 H 24 117/78 98 03/13/22 04:00 36.9 C 107 H 24 119/83 98 03/13/22 03:30 36.8 C 107 H 24 116/77 98 03/13/22 03:00 36.8 C 107 H 24 109/75 98 03/13/22 02:30 36.8 C 111 H 24 99/75 L 97 03/13/22 02:00 36.8 C 114 H 24 105/69 97 03/13/22 01:30 36.7 C 114 H 24 99/71 L 98 03/13/22 01:14 36.6 C 111 H 24 107/70 98 03/13/22 01:02 110 H 24 97 03/13/22 01:00 36.6 C 104 H 21 106/73 96 03/13/22 00:00 36.6 C 112 H 24 105/78 97 03/12/22 23:53 36.6 C 106 H 25 H 114/77 97 03/12/22 23:30 36.2 C L 103 H 24 128/88 97 03/12/22 23:01 25.6 C L 111 H 24 117/82 89 L 03/12/22 23:00 36.5 C 112 H 24 95 03/12/22 22:30 36.7 C 111 H 24 115/73 95 03/12/22 22:00 36.7 C 116 H 24 103/66 Laboratory Results Laboratory Results - last 24 hr 03/12/22 03/12/22 03/12/22 05:53 08:31 09:45 WBC RBC Hgb POC Hgb Hct POC Hct MCV MCH MCHC RDW Std Deviation RDW Coeff of Akiko Plt Count MPV Immature Gran % (Auto) Neut % (Auto) Lymph % (Auto) Cache % (Auto) Eos % (Auto) Baso % (Auto) Neut # (Auto) Lymph # (Auto) Cache # (Auto) Eos # (Auto) Baso # (Auto) Immature Gran # (Auto) APTT PTT Ratio Sample Site POC pH POC pCO2 POC pO2 POC HCO3 POC Total CO2 POC Base Excess ABG pH (Temp Correct) ABG pCO2 (Temp Corrct POC ABG pO2 at Pt Temp POC ABG O2 Sat Joao Test O2 Delivery Device POC O2 Rate Minute Ventilation POC FiO2 Tidal Volume PEEP POC Sodium Sodium 150 H D POC Potassium Potassium 4.3 Chloride 119 H Carbon Dioxide 14 L Anion Gap 17 H BUN 32 H Creatinine 1.19 Est Cr Clr Drug Dosing 43.7 Est GFR ( Amer) 58.7 Est GFR (Non-Af Amer) 50.6 BUN/Creatinine Ratio 26.9 H Glucose 149 H Calcium 8.9 Phosphorus 3.5 Magnesium 2.2 Troponin I High Sens Procalcitonin 5.92 H Nasal Screen MRSA (PCR) Uninterpretable 03/12/22 03/12/22 03/12/22 10:04 12:50 18:42 WBC RBC Hgb POC Hgb Hct POC Hct MCV MCH MCHC RDW Std Deviation RDW Coeff of Akiko Plt Count MPV Immature Gran % (Auto) Neut % (Auto) Lymph % (Auto) Cache % (Auto) Eos % (Auto) Baso % (Auto) Neut # (Auto) Lymph # (Auto) Cache # (Auto) Eos # (Auto) Baso # (Auto) Immature Gran # (Auto) APTT 73.4 H* 88.2 H* PTT Ratio 2.7 3.2 Sample Site R Radial POC pH 7.27 L POC pCO2 48 H POC pO2 82 POC HCO3 22 POC Total CO2 23 L POC Base Excess -5.0 ABG pH (Temp Correct) ABG pCO2 (Temp Corrct POC ABG pO2 at Pt Temp POC ABG O2 Sat 94.0 Joao Test Pass O2 Delivery Device Ventilator POC O2 Rate 20 Minute Ventilation 8 POC FiO2 40 Tidal Volume 400 PEEP 5 POC Sodium Sodium POC Potassium Potassium Chloride Carbon Dioxide Anion Gap BUN Creatinine Est Cr Clr Drug Dosing Est GFR ( Amer) Est GFR (Non-Af Amer) BUN/Creatinine Ratio Glucose Calcium Phosphorus Magnesium Troponin I High Sens Procalcitonin Nasal Screen MRSA (PCR) 03/13/22 03/13/22 03/13/22 01:50 05:47 05:52 WBC 5.81 RBC 3.92 L Hgb 12.2 POC Hgb 11.6 L Hct 36.5 L POC Hct 34 L MCV 93.1 MCH 31.1 MCHC 33.4 RDW Std Deviation 47.4 H RDW Coeff of Akiko 13.9 Plt Count 158 MPV 10.6 H Immature Gran % (Auto) 0.3 Neut % (Auto) 84.1 Lymph % (Auto) 11.0 Cache % (Auto) 4.3 Eos % (Auto) 0.0 Baso % (Auto) 0.3 Neut # (Auto) 4.88 Lymph # (Auto) 0.64 L Cache # (Auto) 0.25 Eos # (Auto) 0.00 Baso # (Auto) 0.02 Immature Gran # (Auto) 0.02 APTT 57.1 H* PTT Ratio 2.1 Sample Site R Radial POC pH 7.31 L POC pCO2 45 POC pO2 90 POC HCO3 23 POC Total CO2 24 POC Base Excess -4.0 ABG pH (Temp Correct) 7.315 L ABG pCO2 (Temp Corrct 44 POC ABG pO2 at Pt Temp 87 POC ABG O2 Sat 96.0 H Jooa Test Pass O2 Delivery Device Ventilator POC O2 Rate 24 Minute Ventilation 9.6 POC FiO2 30 Tidal Volume 400 PEEP 5 POC Sodium 140 Sodium POC Potassium 3.6 Potassium Chloride Carbon Dioxide Anion Gap BUN Creatinine Est Cr Clr Drug Dosing Est GFR ( Amer) Est GFR (Non-Af Amer) BUN/Creatinine Ratio Glucose Calcium Phosphorus Magnesium Troponin I High Sens Procalcitonin Nasal Screen MRSA (PCR) 03/13/22 03/13/22 03/13/22 05:52 05:52 05:52 WBC RBC Hgb POC Hgb Hct POC Hct MCV MCH MCHC RDW Std Deviation RDW Coeff of Akiko Plt Count MPV Immature Gran % (Auto) Neut % (Auto) Lymph % (Auto) Cache % (Auto) Eos % (Auto) Baso % (Auto) Neut # (Auto) Lymph # (Auto) Cache # (Auto) Eos # (Auto) Baso # (Auto) Immature Gran # (Auto) APTT 52.8 H* PTT Ratio 1.9 Sample Site POC pH POC pCO2 POC pO2 POC HCO3 POC Total CO2 POC Base Excess ABG pH (Temp Correct) ABG pCO2 (Temp Corrct POC ABG pO2 at Pt Temp POC ABG O2 Sat Joao Test O2 Delivery Device POC O2 Rate Minute Ventilation POC FiO2 Tidal Volume PEEP POC Sodium Sodium 138 D POC Potassium Potassium 3.6 Chloride 108 H Carbon Dioxide 22 Anion Gap 8 BUN 35 H Creatinine 1.31 H Est Cr Clr Drug Dosing 43.9 Est GFR ( Amer) 52.3 Est GFR (Non-Af Amer) 45.1 BUN/Creatinine Ratio 26.7 H Glucose 206 H Calcium 8.3 L Phosphorus 2.6 Magnesium 2.2 Troponin I High Sens 64.6 H* D Procalcitonin Pending Nasal Screen MRSA (PCR) Medications Administered Current Inpatient Medications Acetaminophen (Acetaminophen 325 Mg Tab) 650 mg PO Q4H PRN PRN Reason: Pain or Fever Stop: 04/09/22 10:31 Aspirin (Aspirin 81 Mg Chew) 81 mg NG QAM [facility] Stop: 04/12/22 08:59 Last Admin: 03/13/22 08:00 Dose: 81 mg Documented by: Enoxaparin Sodium (Enoxaparin Inj 40 Mg/0.4 Ml Syr) 40 mg SQ QAM [facility] Stop: 04/09/22 10:31 Last Admin: 03/11/22 09:41 Dose: 40 mg Documented by: Enteral Nutritional Formula (Peptamen 1.5 Jin 1,000 Ml Bag) 1,000 ml OG UD [facility]; Protocol Stop: 04/11/22 13:14 Last Admin: 03/12/22 16:02 Dose: 1,000 ml Documented by: Fentanyl Citrate (Fentanyl Bolus From Bag) 50 mcg IV Q60M PRN PRN Reason: Pain or Agitation Stop: 03/26/22 10:46 Fluticasone/Vilanterol (Fluticasone/Vilanterol 100/25mcg 14 Puffs/Inhaler) 1 puffs INH DAILY [facility] Stop: 04/11/22 10:59 Last Admin: 03/13/22 07:43 Dose: Not Given Documented by: Folic Acid (Folic Acid 1 Mg Tab) 1 mg PO QAM [facility] Stop: 04/09/22 10:31 Last Admin: 03/13/22 07:42 Dose: 1 mg Documented by: Doxycycline Hyclate 100 mg/ (Dextrose) 110 mls @ 50 mls/hr IV Q12 [facility]; Protocol Stop: 03/18/22 11:29 Last Admin: 03/13/22 07:51 Dose: 50 mls/hr Documented by: Dexmedetomidine/Sodium Chloride (Precedex) 200 mcg in 50 mls @ 5.28 mls/hr IV .Q9H29M [facility]; Protocol Stop: 03/15/22 12:59 Last Titration: 03/12/22 11:57 Dose: Infused Documented by: Dobutamine HCl/Dextrose (Dobutamine / D5w) 500 mg in 250 mls @ 3.96 mls/hr IV .Q24H [facility]; Protocol Stop: 04/10/22 18:29 Last Titration: 03/13/22 07:01 Dose: 4.99 mcg/kg/min, 7.9 mls/hr Documented by: Heparin Sodium/Dextrose (Heparin Sodium/Dextrose) 25,000 units in 500 mls @ 13 mls/hr IV .Q24H [facility]; Protocol Stop: 04/10/22 18:44 Last Titration: 03/13/22 07:01 Dose: 650 units/hr, 13 mls/hr Documented by: Methylprednisolone 40 mg/ (Syringe) 0.64 mls @ 1.5 mls/min IV TID [facility] Stop: 04/11/22 08:59 Last Admin: 03/13/22 07:50 Dose: 1.5 mls/min Documented by: Pantoprazole Sodium 40 mg/ (Syringe) 10 mls @ 5 mls/min IV DAILY@1100 [facility] Stop: 04/11/22 10:59 Last Admin: 03/12/22 11:04 Dose: 5 mls/min Documented by: Propofol (Diprivan) 1,000 mg in 100 mls @ 9.558 mls/hr IV .[id number] [facility]; Protocol Stop: 03/15/22 10:59 Last Titration: 03/13/22 07:02 Dose: 30 mcg/kg/min, 9.6 mls/hr Documented by: Fentanyl Citrate (Fentanyl Citrate) 2,500 mcg in 250 mls @ 20 mls/hr IV .[id number] [facility]; Protocol Stop: 03/26/22 10:59 Last Admin: 03/13/22 08:00 Dose: 200 mcg/hr, 20 mls/hr Documented by: Cefepime HCl 2,000 mg/ Syringe 20 mls @ 5 mls/min IV Q12H [facility]; Protocol Stop: 03/19/22 11:59 Last Admin: 03/12/22 23:25 Dose: 5 mls/min Documented by: Norepinephrine Bitartrate (Levophed/D5w) 8 mg in 508 mls @ 4.046 mls/hr IV .Q24H [facility]; Protocol Stop: 04/11/22 17:14 Last Titration: 03/13/22 07:03 Dose: 0.02 mcg/kg/min, 4 mls/hr Documented by: Ipratropium [place] (Ipratropium [place] Neb Soln 0.02% 2.5 Ml Vial) 0.5 mg INH Q2R PRN PRN Reason: Shortness Of Breath Or Wheezing Stop: 04/09/22 10:31 Last Admin: 03/12/22 10:08 Dose: 0.5 mg Documented by: Ipratropium [place] (Ipratropium [place] Neb Soln 0.02% 2.5 Ml Vial) 0.5 mg INH Q6R [facility] Stop: 04/09/22 12:59 Last Admin: 03/13/22 07:07 Dose: 0.5 mg Documented by: Levalbuterol HCl (Levalbuterol Hcl 1.25 Mg/3 Ml Neb) 1.25 mg NEB Q2R PRN; Protocol PRN Reason: Shortness Of Breath Or Wheezing Stop: 04/09/22 10:31 Last Admin: 03/13/22 07:06 Dose: 1.25 mg Documented by: Levalbuterol HCl (Levalbuterol 1.25mg/0.5ml Neb) 1.25 mg INH Q6R [facility] Stop: 04/09/22 12:59 Last Admin: 03/13/22 07:07 Dose: Not Given Documented by: Levothyroxine Sodium (Levothyroxine Sodium 75 Mcg Tablet) 75 mcg PO DAILYBB [facility] Stop: 04/10/22 06:29 Last Admin: 03/13/22 06:10 Dose: 75 mcg Documented by: Metoprolol Succinate (Metoprolol Succ 25mg Ext Rel Tab) 25 mg PO QAM [facility] Stop: 04/09/22 10:31 Last Admin: 03/11/22 11:36 Dose: Not Given Documented by: Metoprolol Succinate (Metoprolol Succ 25mg Ext Rel Tab) 12.5 mg PO QPM [facility] Stop: 04/09/22 20:59 Last Admin: 03/10/22 21:17 Dose: 12.5 mg Documented by: Nitroglycerin (Nitroglycerin Sl 0.4 Mg/Tab Tab) 0.4 mg SL UD PRN PRN Reason: Chest Pain Stop: 04/09/22 10:31 Ondansetron HCl (Ondansetron Inj 2 Mg/Ml 2 Ml Vial) 4 mg IV Q6H PRN PRN Reason: Nausea And Vomiting Stop: 04/09/22 20:41 Last Admin: 03/11/22 07:32 Dose: 4 mg Documented by: Pantoprazole Sodium (Pantoprazole 40 Mg Tab) 40 mg PO DAILY [facility] Stop: 04/09/22 10:31 Last Admin: 03/11/22 11:36 Dose: Not Given Documented by: Polyethylene Glycol (Polyethylene (Miralax) 17 Gm Pack) 17 gm PO DAILY PRN PRN Reason: Constipation Stop: 04/09/22 10:31 Pregabalin (Pregabalin 75 Mg Cap) 75 mg PO TID [facility] Stop: 04/10/22 13:59 Last Admin: 03/11/22 14:14 Dose: Not Given Documented by: Propofol (Propofol Bolus From Bag) 20 mg IV Q5M PRN PRN Reason: Sedation Stop: 03/15/22 10:46 Sterile Water (Tube Feeding Water Flush) 30 ml OG Q4H [facility] Stop: 04/11/22 12:59 Last Admin: 03/13/22 07:43 Dose: 30 ml Documented by: Tizanidine HCl (Tizanidine Hcl 4 Mg Tablet) 2 mg PO TID PRN PRN Reason: Muscle Spasm Stop: 04/09/22 10:31 Last Admin: 03/10/22 12:02 Dose: 2 mg Documented by: Umeclidinium [place] (Umeclidinium [place] 62.5mcg/Blister 7 Puffs/Inhaler) 1 puffs [facility]; Protocol Stop: 04/09/22 10:59 Last Admin: 03/13/22 07:44 Dose: Not Given Documented by: Vitamin D (Cholecalciferol 1,000 Units 25 Mcg Tab) 2,000 units PO QAM [facility] Stop: 04/09/22 10:31 Last Admin: 03/13/22 07:42 Dose: 2,000 units Documented by:
[2022-03-13] MEDS: PANTOprazole 40 MG in SYRINGE 0 ML IV SCH (10:18)
[2022-03-13] MEDS ORDERED: POTASSIUM CHLORIDE 20 MEQ/15 ML UDC PO ONE (10:45)
[2022-03-13] MEDS: SENNOSIDES 8.8 MG/5 ML UDC PO SCH ×2 (11:35→20:23)
[2022-03-13] MEDS: DOCUSATE SODIUM SYRUP 100 MG/10 ML UDC PO SCH ×2 (11:35→20:24)
[2022-03-13] MEDS: LANSOPRAZOLE 30 MG SOLTAB NG SCH (11:36)
[2022-03-13] MEDS: CEFEPIME 2,000 MG in SYRINGE 0 ML IV SCH (11:40)
[2022-03-13] MEDS ORDERED: LACTATED RINGER'S 500 ML IV ONE (14:17)
--- NOTE | 2022-03-13 16:37 | Hospitalist Progress Note ---
Date of Service March 13, 2022 Assessment & Plan (1) Acute respiratory distress: Plan: Acute hypercarbic respiratory failure COPD exacerbation Influenza A CXR showed Ill-defined nodule versus airspace disease of the left upper lobe. Repeat CXR showed Interval improvement in left lung airspace opacities. - Patient has tenuous respiratory status and unable to wean off BIPAP. Had increasing work of breathing with ABG showing severe hypercapnia and acidosis and transferred to ICU for closer monitoring and possible need for intubation. 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 IVF stopped. Echo pending - Continue monitor closely in the ICU Elevated trop possible demand ischemia from respiratory distress. Trop slightly increased to 0.041 Currently on heparin drip Cadiology on board Systolic heart failure BNP on admission 682 ECHO showed dilated left ventricle with severe global hypokinesis and estimated left ventricular ejection fraction of around 20 to 25%.Thickening of the pericardium and a small pericardial effusion consistent with chronic pericarditis. Intubated on Vent support Continue Low dose Dobutamine drip Cardiology on board Hypotension Levophed discontinued BP stable Anxiety- hold off on benzos. Now on precedex drip. CAD s/p stenting Continue aspirin, betablocker and IV heparin drip GERD- On PPI Hypothyroidism- on synthroid DVT prophylaxis- Heparin drip Disposition Continue monitor closely in the ICU Admission and Anticipated Discharge Date Admission Date: March 10, 2022 Subjective Pt was seen and examined for follow up of respiratory failure Sedated and Intubated on vent support with at bedside She was able to open her eyes when I touched her legs does not seem to be in any acute distress Review of Systems Review of Systems: All systems reviewed & are unremarkable except as noted in Subjective Physical Exam Physical Exam: General- Vent support on sedation Head- atraumatic Eyes- PERRL, EOMI, ENT- Intubated Neck- supple, no JVD Lungs- Diminished BS Heart- regular rhythm; no murmur Abdomen- normal bowel sounds, soft, nontender Extremities- no calf tenderness Neuro- Vent support, sedated Skin- warm & dry Results & Data Results & Data ([facility]) Vital Signs (Past 12 Hours) Vital Signs Temp Pulse Resp BP Pulse Ox 03/13/22 16:00 98 H 03/13/22 15:30 37.3 C 92 H 24 122/73 95 03/13/22 15:00 37.3 C 93 H 24 116/81 98 03/13/22 14:30 37.4 C 94 H 24 102/67 96 03/13/22 14:10 100 H 24 98 03/13/22 14:00 37.3 C 94 H 24 112/66 96 03/13/22 13:30 37.3 C 92 H 24 108/68 97 03/13/22 13:02 103 H 98 03/13/22 13:00 37.3 C 82 24 118/68 98 03/13/22 12:30 37.4 C 87 24 118/74 97 03/13/22 12:00 37.5 C 87 24 109/69 96 03/13/22 11:31 33.7 C L 96 H 24 121/70 94 03/13/22 11:00 37.0 C 90 24 108/66 96 03/13/22 10:40 100 H 24 98 03/13/22 10:00 37.1 C 99 H 21 117/74 98 03/13/22 09:30 37.1 C 99 H 24 106/64 97 03/13/22 09:00 37.1 C 104 H 24 105/66 97 03/13/22 08:30 37.1 C 111 H 24 98/68 L 97 03/13/22 08:00 37.1 C 115 H 24 104/68 97 03/13/22 07:30 37.0 C 113 H 24 91/63 L 03/13/22 07:05 103 H 24 97 03/13/22 07:00 37.0 C 103 H 24 103/68 96 03/13/22 06:00 37.1 C 108 H 24 93/64 L 97 03/13/22 05:00 36.9 C 98 H 24 117/76 98
[2022-03-13 16:43] LABS: BUN Creatinine Ratio 27.3 (10-20); Calcium 8.5 mg/dl (8.5-10.1); Creatinine Clr Calc Pharmacy 44.9 ml/min; Est GFR (African American) 53.7 ml/min; Est GFR (Non-African American) 46.4 ml/min; Potassium 4.5 mmol/L (3.5-5.1)
[2022-03-13] MEDS: ICU ELECTROLYTE REPLACEMENT PROTOCOL SCH (16:50)
[2022-03-13] MEDS: PEPTAMEN 1.5 CAL 1,000 ML BAG OG SCH (19:41)
[2022-03-13] MEDS: HEPARIN SOD 5,000 UNIT/0.5 ML VIAL SC SCH (20:23)
[2022-03-14] MEDS: CEFEPIME 2,000 MG in SYRINGE 0 ML IV SCH ×3 (00:05→23:36)
[2022-03-14] MEDS: LEVALBUTEROL 1.25MG/0.5ML NEB INH SCH ×4 (01:21→19:35)
[2022-03-14] MEDS: IPRATROPIUM BROMIDE NEB SOLN 0.02% 2.5 ML VIAL INH SCH ×4 (01:21→19:34)
[2022-03-14] MEDS: TUBE FEEDING WATER FLUSH OG SCH ×6 (01:55→20:19)
[2022-03-14] MEDS: ACETAMINOPHEN 325 MG TAB PO PRN ×3 (01:55→20:18)
[2022-03-14] MEDS: propofoL 1,000 MG/100 ML VIAL IV SCH ×3 (02:22→12:34)
[2022-03-14] MEDS: dexMEDEtomidine 200 MCG/50 ML BAG IV SCH ×4 (02:56→21:56)
[2022-03-14] MEDS: PROPOFOL BOLUS FROM BAG IV PRN ×2 (03:30→05:11)
[2022-03-14 05:54] LABS: Basophils # (auto) 0.01 K/uL (0-0.2); Basophils % (auto) 0.1 %; Hematocrit (blood only) 34.5 % (37-47); Hemoglobin 11.2 g/dL (12.0-16.0); Immature Granulocytes # (auto) 0.04 K/uL (0.00-0.02); Immature Granulocytes % (auto) 0.6 %; Lymphocytes % (auto) 8.6 %; Mean Corpuscular Hemoglobin 31.2 pg (25-34); Mean Corpuscular Hgb Conc 32.5 g/dL (32-36); Mean Corpuscular Volume 96.1 fL (80-100); Mean Platelet Volume 11.2 fL (7.4-10.4); Monocytes # (auto) 0.43 K/uL (0.11-0.59); Monocytes % (auto) 6.2 %; Neutrophils # (auto) 5.89 K/uL (1.4-6.5); Neutrophils % (auto) 84.5 %; Platelet Count 179 K/uL (130-400); RDW Coefficient of Variation 14.1 % (11.5-14.5); RDW Standard Deviation 50.2 fL (36.4-46.3); Red Blood Count 3.59 M/uL (4.2-5.4); White Blood Count 6.97 K/uL (4.8-10.8)
[2022-03-14 06:00] LABS: Partial Thromboplastin Ratio 0.9; Partial Thromboplastin Time 24.9 Seconds (21.0-31.0)
[2022-03-14] MEDS: LEVOTHYROXINE SODIUM 75 MCG TABLET PO SCH (06:24)
[2022-03-14 06:32] LABS: Est GFR (African American) 55.8 ml/min; Est GFR (Non-African American) 48.2 ml/min
[2022-03-14 06:33] LABS: Calcium 8.6 mg/dl (8.5-10.1); Creatinine Clr Calc Pharmacy 46.4 ml/min; Magnesium 2.3 mg/dl (1.7-2.4)
[2022-03-14] MEDS ORDERED: GLUCAGON FOR INJ 1 MG VIAL SQ PRN ×2 (06:38→06:39)
[2022-03-14] MEDS ORDERED: DEXTROSE 50% 50 ML SYRINGE IV PRN ×2 (06:38→06:39)
[2022-03-14] MEDS ORDERED: GLUCOSE 40% GEL 15 GM TUBE PO PRN ×2 (06:38→06:39)
[2022-03-14] MEDS ORDERED: GLUCOSE 10 TABS/TUBE PO PRN ×2 (06:38→06:39)
[2022-03-14] MEDS ORDERED: CARBOHYDRATES FOR HYPOGLYCEMIA PO PRN ×2 (06:38→06:39)
[2022-03-14] MEDS ORDERED: PHARMACY GLYCEMIC MGMT CONSULT PRN (06:39)
[2022-03-14] MEDS: LEVALBUTEROL HCL 1.25 MG/3 ML NEB NEB PRN ×3 (07:16→14:50)
[2022-03-14] MEDS ORDERED: INSULIN ASPART PER UNIT SC SCH (07:30)
[2022-03-14 07:31] LABS: iSTAT Allen Test Pass; iSTAT Arterial Blood Gas HCO3 24 meg/L (19-24); iSTAT Arterial Blood Gas pCO2 47 mmHg (35-46); iSTAT Arterial Blood Gas pH 7.32 (7.35-7.45); iSTAT Arterial Blood Gas pO2 80 mmHg (80-95); iSTAT Carbon Dioxide 25 mmol/L (24-31); iSTAT FiO2 30 %; iSTAT Site L Radial
[2022-03-14] MEDS ORDERED: SODIUM PHOSPHATE 3 MMOL/1 ML INFUSION IV STA (08:27)
[2022-03-14 08:34] LABS: Estimated Average Glucose 114 mg/dl; Hemoglobin A1C 5.6 % (4.5-5.6)
[2022-03-14] MEDS: ICU ELECTROLYTE REPLACEMENT PROTOCOL SCH ×2 (08:35→14:41)
[2022-03-14] MEDS ORDERED: LORazepam 0.5 MG TAB PO STA (08:48)
--- NOTE | 2022-03-14 08:48 | Critical Care Progress Note ---
Date of Service March 14, 2022 Assessment & Plan (1) Acute systolic heart failure: (2) Acute respiratory failure with hypercapnia: (3) Influenza A: (4) Chronic pericarditis with effusion: (5) Anxiety: Plan: 56-year-old female with a past medical history of coronary artery disease and advanced COPD presenting to the hospital due to a COPD exacerbation and now found to have acute systolic CHF with an LVEF of 20 to 25%. Neurologic: Patient currently on sedation vacation. May need to add Precedex given anxiety. Patient normally on Lyrica 75 mg p.o. 3 times daily. We will change her to gabapentin 100 TID. We will give a dose of 0.5 mg p.o. Ativan now due to anxiety. Pulmonary: Intubated 03/12/2022 due to hypercapnic respiratory failure. Continue 40 mg Solu-Medrol 3 times daily. She was apparently evaluated for lung transplant at an outside facility in the past and was not deemed a good candidate. Cardiovascular: Acute decompensated systolic CHF. Dobutamine held at this time. Considering left and right heart catheterization versus transfer to a tertiary care center for mechanical support of her cardiac output if her condition worsens. Heparin drip discontinued. Troponin levels appear to have plateaued and trending down. proBNP 682. Viral myocarditis remains a possibility given her acute influenza infection. CK-MB levels ordered. Loculated pericardial effusion seen on echo as well. No indication for pericardiocentesis per cardiology at this time. Gastrointestinal: LFTs unremarkable 03/10/2022. Renal: Replace electrolytes per protocol. Urine output adequate. URNULY improving with fluid administration. Infectious disease: Influenza positive. Urine and blood cultures negative to date. Patient empirically on Rocephin and doxycycline.Procalcitonin remains elevated, will continue with antibiotics. We will obtain a new MRSA screen given that the last 1 was "uninterpretable". Hematologic: CBC stable. Endocrine: TSH mildly low, but free T4 limits. F/E/N: Tube feeds Lines and tubes: Peripheral IV Altamirano catheter in place VTE prophylaxis: Heparin 5000 units subcu twice daily CODE STATUS: Full code Family at bedside: Not available bedside at this time Disposition: ICU I have personally spent 44 minutes of critical care time in the direct management of this patient. This is a life/limb threatening event. This includes time spent evaluating patient, direct bedside care, chart review, placing orders, interpretation of diagnostic studies, discussion with consultants, patient, and family members, as well as other required patient management activities. This time is exclusive of all separately billable procedures, and teaching time and separate from and in addition to any other critical care service time. Thank you for allowing us to participate in the care of this patient. Admission and Anticipated Discharge Date Admission Date: March 10, 2022 Subjective Patient seen and examined. She was placed on a sedation vacation. She does follow commands intermittently. She became tachycardic during the spontaneous breathing trial to the heart rate in the 140s. We have discontinued the dobutamine at this time. She is off of Levophed as well. Tube feeds are on hold. No significant overnight events. Blood pressure remained stable. Review of Systems Review of Systems: All systems reviewed & are unremarkable except as noted in HPI & below Physical Exam Physical Exam: Constitutional: Intubated and appears anxious. Eyes: Pupils are equal round and reactive to light. Conjunctivae are normal. Anicteric sclera. Ears nose, mouth and throat: ET tube in place. Neck: Trachea is midline. Visual inspection is normal. Respiratory: Prolonged phase of exhalation. Wheezing improved compared to yesterday. Cardiovascular: Tachycardic. Regular rhythm. No murmurs. No edema. Gastrointestinal: Normal bowel sounds, soft, nontender and nondistended. No hepatosplenomegaly noted. Musculoskeletal: No cyanosis. Patient is able to move all extremities. Skin: No rashes, warm dry and intact. Neurologic: Follows intermittent commands Psychiatric: Unable to assess due to intubation status Results & Data Results & Data ([facility]) Vital Signs (Past 12 Hours) Vital Signs Temp Pulse Resp BP Pulse Ox 03/14/22 07:05 86 25 H 97 03/14/22 06:00 37.7 C H 80 24 96/54 L 96 03/14/22 05:41 37.7 C H 85 24 100/63 97 03/14/22 05:30 37.7 C H 85 24 100/63 96 03/14/22 05:12 37.7 C H 103 H 24 94/64 L 95 03/14/22 05:00 37.6 C H 129 H 22 98/68 L 95 03/14/22 04:30 37.5 C 85 24 112/64 96 03/14/22 04:00 37.5 C 83 24 108/61 97 03/14/22 03:46 37.5 C 82 24 112/66 98 03/14/22 03:45 96 H 25 H 97 03/14/22 03:30 37.5 C 85 24 110/65 97 03/14/22 03:00 37.5 C 86 24 116/66 97 03/14/22 02:30 37.5 C 97 H 24 132/58 L 97 03/14/22 02:00 37.6 C H 88 24 101/61 97 03/14/22 01:30 37.5 C 92 H 24 119/65 97 03/14/22 01:25 89 97 03/14/22 01:00 37.5 C 80 24 121/76 98 03/14/22 00:30 37.6 C H 77 24 123/68 97 03/14/22 00:00 37.6 C H 79 24 116/66 98 03/13/22 23:30 37.7 C H 87 24 116/73 96 03/13/22 23:00 37.7 C H 99 H 24 116/75 94 03/13/22 22:57 37.6 C H 97 H 24 118/77 93 03/13/22 22:55 105 H 25 H 97 03/13/22 22:30 37.6 C H 100 H 24 161/101 H 94 03/13/22 22:00 37.5 C 87 24 141/83 H 97 03/13/22 21:53 37.5 C 90 24 147/85 H 97 03/13/22 21:30 37.5 C 96 H 24 148/90 H 97 03/13/22 21:00 37.5 C 87 24 118/72 97 Coding Level of Care Code Critical Care 1st 30-74 mins Diagnoses Acute systolic heart failure I50.21 Acute respiratory failure with hypercapnia J96.02 Influenza A J10.1 Chronic pericarditis with effusion I31.8 Anxiety F41.9 Time Spent (min) 44
[2022-03-14] MEDS: INSULIN ASPART PER UNIT SC SCH ×5 (08:51→23:36)
[2022-03-14] MEDS: methylPREDNISolone 40 MG in SYRINGE 0 ML IV SCH ×2 (08:52→20:19)
[2022-03-14] MEDS: HEPARIN SOD 5,000 UNIT/0.5 ML VIAL SC SCH ×2 (08:52→20:19)
[2022-03-14] MEDS ORDERED: SODIUM PHOSPHATE 15 MMOL in SODIUM CHLORIDE 0.9% 250 ML IV ONE (09:00)
--- NOTE | 2022-03-14 09:01 | Cardiology Progress Note ---
Date of Service March 14, 2022 Assessment & Plan (1) Acute systolic heart failure: (2) Acute respiratory failure with hypercapnia: (3) Influenza A: (4) Neurofibromatosis: (5) Acute exacerbation of chronic obstructive pulmonary disease: (6) Cavernous hemangioma of brain: (7) Chronic pericarditis with effusion: Plan: The patient is having a trial off sedation to see if she is ready to be extubated. Currently off of dobutamine. Admission and Anticipated Discharge Date Admission Date: March 10, 2022 Subjective Intubated. Alert off sedation. Review of Systems Review of Systems: Not obtainable Physical Exam Physical Exam: General: Alert currently off sedation Head: normocephalic, no masses, lesions, tenderness or abnormalities Eyes: conjunctiva are pink and non-injected, sclera clear Neck: supple, no adenopathy, no bruits, normal jugular venous pulse, no hepatojugular reflux Chest: normal shape and normal respiratory effort Lungs: clear to auscultation and percussion Cardiac Exam: - regular rate & rhythm, no murmurs gallops or rubs - normal S1, normal S2 Pulses: 2(+) throughout Abdomen: abdomen soft, non-tender, no abnormal masses and no hepatosplenomegaly Musculoskeletal: no gait disturbance, no joint inflammation, no deforming arthritis Extremities: no edema and no cyanosis Neuro: grossly normal exam Results & Data ([facility]) Vital Signs (Past 12 Hours) Vital Signs Temp Pulse Resp BP Pulse Ox 03/14/22 07:05 86 25 H 97 03/14/22 06:00 37.7 C H 80 24 96/54 L 96 03/14/22 05:41 37.7 C H 85 24 100/63 97 03/14/22 05:30 37.7 C H 85 24 100/63 96 03/14/22 05:12 37.7 C H 103 H 24 94/64 L 95 03/14/22 05:00 37.6 C H 129 H 22 98/68 L 95 03/14/22 04:30 37.5 C 85 24 112/64 96 03/14/22 04:00 37.5 C 83 24 108/61 97 03/14/22 03:46 37.5 C 82 24 112/66 98 03/14/22 03:45 96 H 25 H 97 03/14/22 03:30 37.5 C 85 24 110/65 97 03/14/22 03:00 37.5 C 86 24 116/66 97 03/14/22 02:30 37.5 C 97 H 24 132/58 L 97 03/14/22 02:00 37.6 C H 88 24 101/61 97 03/14/22 01:30 37.5 C 92 H 24 119/65 97 03/14/22 01:25 89 97 03/14/22 01:00 37.5 C 80 24 121/76 98 03/14/22 00:30 37.6 C H 77 24 123/68 97 03/14/22 00:00 37.6 C H 79 24 116/66 98 03/13/22 23:30 37.7 C H 87 24 116/73 96 03/13/22 23:00 37.7 C H 99 H 24 116/75 94 03/13/22 22:57 37.6 C H 97 H 24 118/77 93 03/13/22 22:55 105 H 25 H 97 03/13/22 22:30 37.6 C H 100 H 24 161/101 H 94 03/13/22 22:00 37.5 C 87 24 141/83 H 97 03/13/22 21:53 37.5 C 90 24 147/85 H 97 03/13/22 21:30 37.5 C 96 H 24 148/90 H 97 03/13/22 21:00 37.5 C 87 24 118/72 97 Laboratory Results Laboratory Results - last 24 hr 03/13/22 03/13/22 03/13/22 05:52 15:58 15:58 WBC RBC Hgb Hct MCV MCH MCHC RDW Std Deviation RDW Coeff of Akiko Plt Count MPV Immature Gran % (Auto) Neut % (Auto) Lymph % (Auto) Bartholomew % (Auto) Eos % (Auto) Baso % (Auto) Neut # (Auto) Lymph # (Auto) Bartholomew # (Auto) Eos # (Auto) Baso # (Auto) Immature Gran # (Auto) APTT PTT Ratio Sample Site POC pH POC pCO2 POC pO2 POC HCO3 POC Total CO2 POC Base Excess POC ABG O2 Sat Joao Test O2 Delivery Device POC O2 Rate POC FiO2 Tidal Volume PEEP Sodium 135 L Potassium 4.5 D Chloride 108 H Carbon Dioxide 22 Anion Gap 5 BUN 35 H Creatinine 1.28 H Est Cr Clr Drug Dosing 44.9 Est GFR ( Amer) 53.7 Est GFR (Non-Af Amer) 46.4 BUN/Creatinine Ratio 27.3 H Glucose 203 H POC Glucose Estimat Average Glucose Hemoglobin A1c Lactate 1.0 Calcium 8.5 Phosphorus Magnesium Procalcitonin 4.57 H 03/14/22 03/14/22 03/14/22 05:11 05:11 05:11 WBC 6.97 RBC 3.59 L Hgb 11.2 L Hct 34.5 L MCV 96.1 MCH 31.2 MCHC 32.5 RDW Std Deviation 50.2 H RDW Coeff of Akiko 14.1 Plt Count 179 MPV 11.2 H Immature Gran % (Auto) 0.6 Neut % (Auto) 84.5 Lymph % (Auto) 8.6 Bartholomew % (Auto) 6.2 Eos % (Auto) 0.0 Baso % (Auto) 0.1 Neut # (Auto) 5.89 Lymph # (Auto) 0.60 L Bartholomew # (Auto) 0.43 Eos # (Auto) 0.00 Baso # (Auto) 0.01 Immature Gran # (Auto) 0.04 H APTT 24.9 PTT Ratio 0.9 Sample Site POC pH POC pCO2 POC pO2 POC HCO3 POC Total CO2 POC Base Excess POC ABG O2 Sat Joao Test O2 Delivery Device POC O2 Rate POC FiO2 Tidal Volume PEEP Sodium 135 L Potassium Chloride 108 H Carbon Dioxide 23 Anion Gap 4 BUN 31 H Creatinine 1.24 H Est Cr Clr Drug Dosing 46.4 Est GFR ( Amer) 55.8 Est GFR (Non-Af Amer) 48.2 BUN/Creatinine Ratio 25.0 H Glucose 226 H POC Glucose Estimat Average Glucose Hemoglobin A1c Lactate Calcium 8.6 Phosphorus 2.0 L Magnesium 2.3 Procalcitonin 03/14/22 03/14/22 03/14/22 05:11 07:15 07:17 WBC RBC Hgb Hct MCV MCH MCHC RDW Std Deviation RDW Coeff of Akiko Plt Count MPV Immature Gran % (Auto) Neut % (Auto) Lymph % (Auto) Bartholomew % (Auto) Eos % (Auto) Baso % (Auto) Neut # (Auto) Lymph # (Auto) Bartholomew # (Auto) Eos # (Auto) Baso # (Auto) Immature Gran # (Auto) APTT PTT Ratio Sample Site L Radial POC pH 7.32 L POC pCO2 47 H POC pO2 80 POC HCO3 24 POC Total CO2 25 POC Base Excess -2.0 POC ABG O2 Sat 94.0 Joao Test Pass O2 Delivery Device Ventilator POC O2 Rate 24 POC FiO2 30 Tidal Volume 400 PEEP 5 Sodium Potassium 4.5 Chloride Carbon Dioxide Anion Gap BUN Creatinine Est Cr Clr Drug Dosing Est GFR ( Amer) Est GFR (Non-Af Amer) BUN/Creatinine Ratio Glucose POC Glucose Estimat Average Glucose 114 Hemoglobin A1c 5.6 Lactate Calcium Phosphorus Magnesium Procalcitonin 03/14/22 08:30 WBC RBC Hgb Hct MCV MCH MCHC RDW Std Deviation RDW Coeff of Akiko Plt Count MPV Immature Gran % (Auto) Neut % (Auto) Lymph % (Auto) Bartholomew % (Auto) Eos % (Auto) Baso % (Auto) Neut # (Auto) Lymph # (Auto) Bartholomew # (Auto) Eos # (Auto) Baso # (Auto) Immature Gran # (Auto) APTT PTT Ratio Sample Site POC pH POC pCO2 POC pO2 POC HCO3 POC Total CO2 POC Base Excess POC ABG O2 Sat Joao Test O2 Delivery Device POC O2 Rate POC FiO2 Tidal Volume PEEP Sodium Potassium Chloride Carbon Dioxide Anion Gap BUN Creatinine Est Cr Clr Drug Dosing Est GFR ( Amer) Est GFR (Non-Af Amer) BUN/Creatinine Ratio Glucose POC Glucose 195 H Estimat Average Glucose Hemoglobin A1c Lactate Calcium Phosphorus Magnesium Procalcitonin Medications Administered Current Inpatient Medications Acetaminophen (Acetaminophen 325 Mg Tab) 650 mg PO Q4H PRN PRN Reason: Pain or Fever Stop: 04/09/22 10:31 Last Admin: 03/14/22 01:55 Dose: 650 mg Documented by: Aspirin (Aspirin 81 Mg Chew) 81 mg NG QAM [facility] Stop: 04/12/22 08:59 Last Admin: 03/13/22 08:00 Dose: 81 mg Documented by: Dextrose (Dextrose 50% 50 Ml Syringe) 25 - 50 ml IV UD PRN; Protocol PRN Reason: Hypoglycemia Protocol Stop: 04/13/22 06:38 Docusate Sodium (Docusate Sodium Syrup 100 Mg/10 Ml Udc) 100 mg PO BID [facility] Stop: 04/12/22 10:44 Last Admin: 03/13/22 20:24 Dose: 100 mg Documented by: Enteral Nutritional Formula (Peptamen 1.5 Jin 1,000 Ml Bag) 1,000 ml OG UD JUDITH; Protocol Stop: 04/11/22 13:14 Last Admin: 03/13/22 19:41 Dose: 1,000 ml Documented by: Fentanyl Citrate (Fentanyl Bolus From Bag) 50 mcg IV Q60M PRN PRN Reason: Pain or Agitation Stop: 03/26/22 10:46 Last Admin: 03/14/22 05:00 Dose: 50 mcg Documented by: Fluticasone/Vilanterol (Fluticasone/Vilanterol 100/25mcg 14 Puffs/Inhaler) 1 puffs INH DAILY [facility]ITH Stop: 04/11/22 10:59 Last Admin: 03/13/22 07:43 Dose: Not Given Documented by: Folic Acid (Folic Acid 1 Mg Tab) 1 mg PO QAM [facility] Stop: 04/09/22 10:31 Last Admin: 03/13/22 07:42 Dose: 1 mg Documented by: Gabapentin (Gabapentin 100 Mg Cap) 100 mg PO TID [facility] Stop: 04/13/22 08:59 Glucagon (Glucagon For Inj 1 Mg Vial) 1 mg SQ UD PRN; Protocol PRN Reason: Hypoglycemia Protocol Stop: 04/13/22 06:38 Glucose (Glucose 10 Tabs/Tube) 4 - 8 tabs PO UD PRN; Protocol PRN Reason: Hypoglycemia Protocol Stop: 04/13/22 06:38 Glucose (Glucose 40% Gel 15 Gm Tube) 15 - 30 gm PO UD PRN; Protocol PRN Reason: Hypoglycemia Protocol Stop: 04/13/22 06:38 Heparin Sodium (Porcine) (Heparin Sod 5,000 Unit/0.5 Ml Vial) 5,000 units SC Q12 [facility] Stop: 04/12/22 20:59 Last Admin: 03/14/22 08:52 Dose: 5,000 units Documented by: Doxycycline Hyclate 100 mg/ (Dextrose) 110 mls @ 50 mls/hr IV Q12 [facility]; Protocol Stop: 03/18/22 11:29 Last Infusion: 03/13/22 23:09 Dose: Infused Documented by: Dobutamine HCl/Dextrose (Dobutamine / D5w) 500 mg in 250 mls @ 3.96 mls/hr IV .Q24H [facility]; Protocol Stop: 04/10/22 18:29 Last Titration: 03/14/22 08:38 Dose: 0 mcg/kg/min, 0 mls/hr Documented by: Methylprednisolone 40 mg/ (Syringe) 0.64 mls @ 1.5 mls/min IV TID JUDITH Stop: 04/11/22 08:59 Last Admin: 03/14/22 08:52 Dose: 1.5 mls/min Documented by: Propofol (Diprivan) 1,000 mg in 100 mls @ 11.151 mls/hr IV .Q8H59M JUDITH; Protocol Stop: 03/15/22 10:59 Last Titration: 03/14/22 06:51 Dose: 35 mcg/kg/min, 11.2 mls/hr Documented by: Fentanyl Citrate (Fentanyl Citrate) 2,500 mcg in 250 mls @ 20 mls/hr IV .[id number] JUDITH; Protocol Stop: 03/26/22 10:59 Last Titration: 03/14/22 06:51 Dose: 200 mcg/hr, 20 mls/hr Documented by: Cefepime HCl 2,000 mg/ Syringe 20 mls @ 5 mls/min IV Q12H [facility]; Protocol Stop: 03/19/22 11:59 Last Admin: 03/14/22 00:05 Dose: 5 mls/min Documented by: Norepinephrine Bitartrate (Levophed/D5w) 8 mg in 508 mls @ 0 mls/hr IV .Q0M JUDITH; Protocol Stop: 04/11/22 17:14 Last Titration: 03/13/22 18:47 Dose: 0 mcg/kg/min, 0 mls/hr Documented by: Sodium Phosphate 15 mmol/ (Sodium Chloride) 255 mls @ 88 mls/hr IV ONE ONE Stop: 03/14/22 11:53 Last Admin: 03/14/22 08:52 Dose: 88 mls/hr Documented by: Insulin Aspart (Insulin Aspart Per Unit) 0 units SC Q4 [facility]; Protocol Stop: 04/13/22 07:29 Last Admin: 03/14/22 08:51 Dose: 7 units Documented by: Ipratropium [place] (Ipratropium [place] Neb Soln 0.02% 2.5 Ml Vial) 0.5 mg INH Q2R PRN PRN Reason: Shortness Of Breath Or Wheezing Stop: 04/09/22 10:31 Last Admin: 03/12/22 10:08 Dose: 0.5 mg Documented by: Ipratropium [place] (Ipratropium [place] Neb Soln 0.02% 2.5 Ml Vial) 0.5 mg INH Q6R [facility] Stop: 04/09/22 12:59 Last Admin: 03/14/22 07:16 Dose: 0.5 mg Documented by: Lansoprazole (Lansoprazole 30 Mg Soltab) 30 mg NG QAM [facility] Stop: 04/12/22 10:44 Last Admin: 03/13/22 11:36 Dose: 30 mg Documented by: Levalbuterol HCl (Levalbuterol Hcl 1.25 Mg/3 Ml Neb) 1.25 mg NEB Q2R PRN; Protocol PRN Reason: Shortness Of Breath Or Wheezing Stop: 04/09/22 10:31 Last Admin: 03/14/22 07:16 Dose: 1.25 mg Documented by: Levalbuterol HCl (Levalbuterol 1.25mg/0.5ml Neb) 1.25 mg INH Q6R [facility] Stop: 04/09/22 12:59 Last Admin: 03/14/22 07:16 Dose: Not Given Documented by: Levothyroxine Sodium (Levothyroxine Sodium 75 Mcg Tablet) [facility] Stop: 04/10/22 06:29 Last Admin: 03/14/22 06:24 Dose: 75 mcg Documented by: Metoprolol Succinate (Metoprolol Succ 25mg Ext Rel Tab) 25 [facility] [place] Stop: 04/09/22 10:31 Last Admin: 03/11/22 11:36 Dose: Not Given Documented by: Metoprolol Succinate (Metoprolol Succ 25mg Ext Rel Tab) 12.5 mg PO QPM [facility] Stop: 04/09/22 20:59 Last Admin: 03/10/22 21:17 Dose: 12.5 mg Documented by: Miscellaneous (Icu Electrolyte Replacement Protocol) 1 ea N/A BID@ [facility]; Protocol Stop: 03/20/22 17:59 Last Admin: 03/14/22 08:35 Dose: 1 ea Documented by: Miscellaneous (Carbohydrates For Hypoglycemia ) 15 - 30 gm PO UD PRN PRN Reason: Hypoglycemia Protocol Stop: 04/13/22 06:38 Miscellaneous Information (Pharmacy Glycemic Mgmt Consult) 1 ea N/A UD PRN; Protocol PRN Reason: Consult Stop: 04/13/22 06:38 Nitroglycerin (Nitroglycerin Sl 0.4 Mg/Tab Tab) 0.4 mg SL UD PRN PRN Reason: Chest Pain Stop: 04/09/22 10:31 Ondansetron HCl (Ondansetron Inj 2 Mg/Ml 2 Ml Vial) 4 mg IV Q6H PRN PRN Reason: Nausea And Vomiting Stop: 04/09/22 20:41 Last Admin: 03/11/22 07:32 Dose: 4 mg Documented by: Polyethylene Glycol (Polyethylene (Miralax) 17 Gm Pack) 17 gm PO DAILY PRN PRN Reason: Constipation Stop: 04/09/22 10:31 Pregabalin (Pregabalin 75 Mg Cap) 75 mg PO TID [facility] Stop: 04/10/22 13:59 Last Admin: 03/11/22 14:14 Dose: Not Given Documented by: Propofol (Propofol Bolus From Bag) 20 mg IV Q5M PRN PRN Reason: Sedation Stop: 03/15/22 10:46 Last Admin: 03/14/22 05:11 Dose: 20 mg Documented by: Sennosides (Sennosides 8.8 Mg/5 Ml Udc) 8.8 mg PO BID [facility] Stop: 04/12/22 10:44 Last Admin: 03/13/22 20:23 Dose: 8.8 mg Documented by: Sterile Water (Tube Feeding Water Flush) 30 ml OG Q4H [facility] Stop: 04/11/22 12:59 Last Admin: 03/14/22 06:18 Dose: 30 ml Documented by: Tizanidine HCl (Tizanidine Hcl 4 Mg Tablet) 2 mg PO TID PRN PRN Reason: Muscle Spasm Stop: 04/09/22 10:31 Last Admin: 03/10/22 12:02 Dose: 2 mg Documented by: Umeclidinium [place] (Umeclidinium [place] 62.5mcg/Blister 7 Puffs/Inhaler) 1 p uffs INH [facility]; Protocol Stop: 04/09/22 10:59 Last Admin: 03/13/22 07:44 Dose: Not Given Documented by: Vitamin D (Cholecalciferol 1,000 Units 25 Mcg Tab) 2,000 units PO [facility] Stop: 04/09/22 10:31 Last Admin: 03/13/22 07:42 Dose: 2,000 units Documented by:
[2022-03-14] MEDS ORDERED: METOPROLOL TARTRATE 1 MG/ML VIAL IV ONE (09:02)
[2022-03-14] MEDS: DOXYCYCLINE HYCLATE 100 MG in DEXTROSE 5% 100 ML IV SCH ×2 (09:17→20:19)
[2022-03-14] MEDS: GABAPENTIN 100 MG CAP PO SCH ×3 (09:44→21:02)
[2022-03-14] MEDS: CHOLECALCIFEROL 1,000 UNITS 25 MCG TAB PO SCH (09:45)
[2022-03-14] MEDS: DOCUSATE SODIUM SYRUP 100 MG/10 ML UDC PO SCH ×2 (09:45→20:19)
[2022-03-14] MEDS: ASPIRIN 81 MG CHEW NG SCH (09:45)
[2022-03-14] MEDS: FOLIC ACID 1 MG TAB PO SCH (09:46)
[2022-03-14] MEDS: LANSOPRAZOLE 30 MG SOLTAB NG SCH (09:46)
[2022-03-14] MEDS: SENNOSIDES 8.8 MG/5 ML UDC PO SCH ×2 (09:46→20:19)
[2022-03-14] MEDS: FLUTICASONE/VILANTEROL 100/25MCG 14 PUFFS/INHALER INH SCH (10:05)
[2022-03-14] MEDS: UMECLIDINIUM BROMIDE 62.5MCG/BLISTER 7 PUFFS/INHALER INH SCH (10:05)
[2022-03-14] MEDS ORDERED: STAT IV Infusion **Titration per Protocol STA ×2 (10:07→14:16)
[2022-03-14 10:53] LABS: Appearance Urine Clear (Clear); Bacteria Urine Automated Negative (Negative); Bilirubin Urine Negative (Negative); Blood Urine Negative (Negative); Color Urine Yellow; Glucose Urine UA Negative (Negative); Ketones Urine Trace (Negative); Leukocyte Esterase Urine Negative (Negative); Nitrite Urine Negative (Negative); Protein Urine 1+ (Negative); RBC Urine Automated 0-4 /hpf (0-4); Specific Gravity Urine 1.025 (1.000-1.030); Urobilinogen Urine Negative (Negative); pH Urine 6.5 (4.5-7.5)
--- NOTE | 2022-03-14 10:58 | Pharmacy Report ---
Pharmacy Glycemic Short Note 2 - Date of Service March 14, 2022 - Glycemic Short BSG Results (Last 24 hours): 03/13/22 03/14/22 03/14/22 15:58 05:11 08:30 Glucose 203 H 226 H POC Glucose 195 H OUTPATIENT ANTIDIABETIC REGIMEN: * None * HbA1c = 5.6% (03/14/22) ASSESSMENT: * 56 yo F admitted on 03/10/22 secondary to acute exacerbation of COPD. Acute respiratory failure progressed throughout stay, and patient was intubated on 03/12/22. Peptamen 1.5 tube feeds started on 03/12/22 as well. Patient was also on IV methylprednisolone at the time for COPD. * Combination of steroid-induced hyperglycemia, increased stressors and addition of tube feeds lead to ICU hyperglycemia protocol being met. * Remains intubated today. TF at 40 cc/hr. Solumedrol weaned from TID to BID. * Will start Novolog based on weight/stress of three with accuchecks q4h to mimic basal insulin. Targeting lower goal range of 110-140 mg/dL. PLAN FOR INPATIENT GLYCEMIC CONTROL: * Basal insulin * None * Bolus insulin * NovoLog per scale ACHS or Q6hrs while NPO * Goal Range: Low 110 mg/dL - High 140 mg/dL * Correction Factor: 25 mg/dL/unit * Nutritional / Prandial insulin per carb ratio of 1 unit per 8 grams CHO consumed DISCHARGE RECOMMENDATIONS: * Patient is not diabetic. Will not require any diabetic medications upon discharge regardless of steroid use.
[2022-03-14] MEDS: fentaNYL citrate 2,500 MCG/250 ML BAG IV SCH (12:09)
[2022-03-14] MEDS ORDERED: NOREPINEPHRINE/D5W 8 MG/508 ML BAG IV SCH (14:30)
[2022-03-14] MEDS: IPRATROPIUM BROMIDE NEB SOLN 0.02% 2.5 ML VIAL INH PRN (14:50)
[2022-03-14] MEDS: DOBUTamine / D5W 500 MG/250 ML BAG IV SCH (15:46)
[2022-03-14] MEDS ORDERED: fentaNYL citrate 100 MCG/2 ML VIAL IV STA (19:54)
[2022-03-14] MEDS: PEPTAMEN 1.5 CAL 1,000 ML BAG OG SCH (20:22)
--- NOTE | 2022-03-14 22:34 | Hospitalist Progress Note ---
Date of Service March 14, 2022 Assessment & Plan (1) Acute respiratory distress: Plan: Acute hypercarbic respiratory failure COPD exacerbation Influenza A CXR showed Ill-defined nodule versus airspace disease of the left upper lobe. Repeat CXR showed Interval improvement in left lung airspace opacities. - Patient has tenuous respiratory status and unable to wean off BIPAP. Had increasing work of breathing with ABG showing severe hypercapnia and acidosis and transferred to ICU for closer monitoring and possible need for intubation. - Intubated on vent support management by outpatient coder - Continue IV cefepime and IV doxycycline - Continue Precedex and propofo - Continue IV steroids, nebs treatment - Continue tamiflu for influenza A - CXR shows mildly incrased interstitial markings- given a dose of lasix- monitor I and Os. IVF stopped. - ECHO showed pericardial space suggests organizing pericardial effusion -Failed Weaning trial with HR increased and tachypneic -Continue monitor closely in the ICU Elevated trop possible demand ischemia from respiratory distress. Trop slightly increased to 0.041 Currently on heparin drip Cadiology on board Systolic heart failure BNP on admission 682 ECHO showed dilated left ventricle with severe global hypokinesis and estimated left ventricular ejection fraction of around 20 to 25%.Thickening of the pericardium and a small pericardial effusion consistent with chronic pericar ditis. Intubated on Vent support Continue Low dose Dobutamine drip Cardiology on board Hypotension Levophed discontinued BP stable Anxiety- hold off on benzos. Now on precedex drip. CAD s/p stenting Continue aspirin, betablocker and IV heparin drip GERD- On PPI Hypothyroidism- on synthroid DVT prophylaxis- Heparin drip Disposition Continue monitor closely in the ICU Admission and Anticipated Discharge Date Admission Date: March 10, 2022 Subjective Pt was seen and examined for follow up of respiratory failure Sedated and Intubated on vent support with at bedside She seems to be calm and comfortable She became tachycardia when they tried weaning her off the vent Denies any chest pain, palpitation, dizziness and SOB Review of Systems Review of Systems: All systems reviewed & are unremarkable except as noted in Subjective Physical Exam Physical Exam: General- Vent support on sedation Head- atraumatic Eyes- PERRL, EOMI, ENT- Intubated Neck- supple, no JVD Lungs- Diminished BS Heart- regular rhythm; no murmur Abdomen- normal bowel sounds, soft, nontender Extremities- no calf tenderness Neuro- Vent support, sedated Skin- warm & dry Results & Data Results & Data ([facility]) Vital Signs (Past 12 Hours) Vital Signs Temp Pulse Resp BP Pulse Ox 03/14/22 19:35 112 H 28 H 99 03/14/22 18:00 37.3 C 73 24 108/68 99 03/14/22 17:45 37.4 C 74 24 106/64 99 03/14/22 17:30 37.4 C 76 24 106/66 98 03/14/22 17:15 37.4 C 79 24 103/66 98 03/14/22 17:00 37.4 C 82 24 131/76 98 03/14/22 16:45 37.4 C 84 24 145/84 H 98 03/14/22 16:30 37.3 C 98 H 23 155/93 H 98 03/14/22 16:15 37.3 C 102 H 23 156/90 H 97 03/14/22 16:00 37.2 C 97 H 26 H 141/85 H 98 03/14/22 15:45 37.2 C 83 24 126/79 97 03/14/22 15:30 37.2 C 77 24 124/76 99 03/14/22 15:15 37.3 C 72 24 120/74 99 03/14/22 15:00 37.3 C 77 24 119/71 99 03/14/22 14:55 37.3 C 77 24 124/76 98 03/14/22 14:50 37.3 C 70 24 119/71 98 03/14/22 14:45 37.4 C 78 22 113/70 98 03/14/22 14:40 37.4 C 77 22 107/70 98 03/14/22 14:35 37.4 C 79 22 117/69 98 03/14/22 14:30 37.4 C 79 24 129/73 97 03/14/22 14:25 37.4 C 82 25 H 135/79 97 03/14/22 14:20 37.4 C 91 H 23 143/92 H 97 03/14/22 14:15 37.4 C 98 H 23 147/82 H 96 03/14/22 14:10 37.4 C 111 H 25 H 151/89 H 96 03/14/22 14:05 37.4 C 87 25 H 124/73 97 03/14/22 14:00 37.4 C 81 25 H 115/72 96 03/14/22 13:55 37.4 C 87 24 96/60 L 96 03/14/22 13:50 37.4 C 83 24 84/57 L 97 03/14/22 13:45 37.4 C 83 24 83/53 L 96 03/14/22 13:40 37.4 C 84 24 87/54 L 96 03/14/22 13:35 37.5 C 86 22 82/53 L 96 03/14/22 13:30 37.5 C 86 24 82/55 L 96 03/14/22 13:25 37.5 C 86 24 83/54 L 96 03/14/22 13:20 37.5 C 88 24 92/55 L 96 03/14/22 13:15 37.5 C 95 H 24 101/67 95 03/14/22 13:12 37.5 C 94 H 24 92/61 L 97 03/14/22 13:11 37.5 C 88 24 69/41 L 95 03/14/22 13:10 37.6 C H 88 21 71/47 L 95 03/14/22 13:05 37.6 C H 87 24 71/50 L 96 03/14/22 13:04 37.6 C H 89 24 78/46 L 96 03/14/22 13:00 37.6 C H 89 24 71/47 L 96 03/14/22 12:30 37.7 C H 108 H 24 127/76 96 03/14/22 12:01 37.6 C H 134 H 26 H 180/95 H 92 03/14/22 12:00 37.6 C H 131 H 24 91 03/14/22 11:30 37.7 C H 104 H 24 138/86 95 03/14/22 11:00 38.1 C H 116 H 24 130/85 93
[2022-03-15] MEDS: LEVALBUTEROL 1.25MG/0.5ML NEB INH SCH ×6 (00:03→23:31)
[2022-03-15] MEDS: IPRATROPIUM BROMIDE NEB SOLN 0.02% 2.5 ML VIAL INH SCH ×6 (00:03→23:30)
[2022-03-15] MEDS: dexMEDEtomidine 200 MCG/50 ML BAG IV SCH ×4 (00:32→07:38)
[2022-03-15] MEDS: TUBE FEEDING WATER FLUSH OG SCH ×5 (01:26→20:55)
[2022-03-15] MEDS ORDERED: fentaNYL citrate 100 MCG/2 ML VIAL IV PRN (02:33)
[2022-03-15] MEDS ORDERED: fentaNYL citrate 100 MCG/2 ML VIAL ONE (02:35)
[2022-03-15] MEDS: GABAPENTIN 100 MG CAP PO SCH ×4 (02:47→20:51)
[2022-03-15] MEDS: INSULIN ASPART PER UNIT SC SCH ×6 (03:24→23:31)
[2022-03-15 04:35] LABS: Basophils # (auto) 0.01 K/uL (0-0.2); Basophils % (auto) 0.1 %; Hematocrit (blood only) 34.9 % (37-47); Hemoglobin 11.5 g/dL (12.0-16.0); Immature Granulocytes # (auto) 0.06 K/uL (0.00-0.02); Immature Granulocytes % (auto) 0.9 %; Lymphocytes # (auto) 0.75 K/uL (1.2-3.4); Mean Corpuscular Hemoglobin 31.4 pg (25-34); Mean Corpuscular Volume 95.4 fL (80-100); Mean Platelet Volume 10.9 fL (7.4-10.4); Monocytes # (auto) 0.38 K/uL (0.11-0.59); Monocytes % (auto) 5.6 %; Neutrophils % (auto) 82.4 %; Platelet Count 154 K/uL (130-400); RDW Coefficient of Variation 13.8 % (11.5-14.5); RDW Standard Deviation 48.1 fL (36.4-46.3); Red Blood Count 3.66 M/uL (4.2-5.4)
[2022-03-15 04:58] LABS: BUN Creatinine Ratio 31.4 (10-20); Est GFR (African American) 70.7 ml/min; Magnesium 2.1 mg/dl (1.7-2.4); Phosphorus 2.2 mg/dl (2.5-4.9); Potassium 4.6 mmol/L (3.5-5.1)
[2022-03-15 05:28] LABS: iSTAT Allen Test Pass; iSTAT Art Bld Gas pCO2 Correct 48 mmHg (35-46); iSTAT Art Bld Gas pH Corrected 7.257 (7.35-7.45); iSTAT Arterial Blood Gas HCO3 21 meg/L (19-24); iSTAT Arterial Blood Gas pCO2 47 mmHg (35-46); iSTAT Arterial Blood Gas pH 7.27 (7.35-7.45); iSTAT Arterial Blood Gas pO2 92 mmHg (80-95); iSTAT Arterial Blood Gas pO2 C 96; iSTAT Carbon Dioxide 23 mmol/L (24-31); iSTAT FiO2 30 %; iSTAT Hematocrit 37 % (37-47); iSTAT Hemoglobin 12.6 g/dl (12.0-16.0); iSTAT Potassium 4.4 mmol/L (3.3-5.0); iSTAT Site R Radial; iSTAT Sodium 135 mmol/L (135-144)
[2022-03-15] MEDS ORDERED: INSULIN HUMAN REGULAR PER UNIT 6 UNITS in SYRINGE 0 ML IV ONE (05:30)
[2022-03-15] MEDS: ICU ELECTROLYTE REPLACEMENT PROTOCOL SCH ×2 (05:43→16:44)
[2022-03-15] MEDS ORDERED: SODIUM PHOSPHATE 3 MMOL/1 ML INFUSION IV STA (05:45)
[2022-03-15] MEDS ORDERED: SODIUM PHOSPHATE 15 MMOL in SODIUM CHLORIDE 0.9% 250 ML IV ONE (06:00)
[2022-03-15] MEDS: LEVOTHYROXINE SODIUM 75 MCG TABLET PO SCH (06:05)
[2022-03-15] MEDS: methylPREDNISolone 40 MG in SYRINGE 0 ML IV SCH (07:17)
[2022-03-15] MEDS: SENNOSIDES 8.8 MG/5 ML UDC PO SCH ×2 (07:18→20:54)
[2022-03-15] MEDS: FOLIC ACID 1 MG TAB PO SCH (07:19)
[2022-03-15] MEDS: DOCUSATE SODIUM SYRUP 100 MG/10 ML UDC PO SCH ×2 (07:19→20:51)
[2022-03-15] MEDS: CHOLECALCIFEROL 1,000 UNITS 25 MCG TAB PO SCH (07:19)
[2022-03-15] MEDS: ASPIRIN 81 MG CHEW NG SCH (07:20)
[2022-03-15] MEDS: HEPARIN SOD 5,000 UNIT/0.5 ML VIAL SC SCH ×2 (07:20→20:53)
[2022-03-15] MEDS: LANSOPRAZOLE 30 MG SOLTAB NG SCH (07:21)
[2022-03-15] MEDS: UMECLIDINIUM BROMIDE 62.5MCG/BLISTER 7 PUFFS/INHALER INH SCH (07:22)
[2022-03-15] MEDS ORDERED: MoRPHine SULFATE 2 MG/ML CARP IV STA (07:41)
--- NOTE | 2022-03-15 07:44 | Critical Care Progress Note ---
Date of Service March 15, 2022 Assessment & Plan (1) Acute systolic heart failure: (2) Acute respiratory failure with hypercapnia: (3) Influenza A: (4) Chronic pericarditis with effusion: (5) Anxiety: Plan: 56-year-old female with a past medical history of coronary artery disease and advanced COPD presenting to the hospital due to a COPD exacerbation and now found to have acute systolic CHF with an LVEF of 20 to 25%. Neurologic: Continue Precedex for anxiety. Patient normally on Lyrica 75 mg p.o. 3 times daily. Gabapentin 100 mg 3 times daily added 03/14. We will schedule Ativan. We will give a dose of 2 mg IV morphine now. Pulmonary: Intubated 03/12/2022 due to hypercapnic respiratory failure. Continue 40 mg Solu-Medrol 2 times daily. She was apparently evaluated for lung transplant at an outside facility in the past and was not deemed a good candidate. If patient unable to be successfully intubated, will need to consider tracheostomy. Cardiovascular: Acute decompensated systolic CHF. Dobutamine held at this time. Considering left and right heart catheterization versus transfer to a tertiary care center for mechanical support of her cardiac output if her condition worsens. Heparin drip discontinued. Troponin levels appear to have plateaued and trending down. proBNP 682. Viral myocarditis remains a possibility given her acute influenza infection. CK-MB levels ordered. Loculated pericardial effusion seen on echo as well. No indication for pericardiocentesis per cardiology at this time. Metoprolol on hold. Maintain mean arterial pressure above 65 mmHg. Gastrointestinal: LFTs unremarkable 03/10/2022. Renal: Replace electrolytes per protocol. Urine output adequate. UNRULY improved. Infectious disease: Influenza positive. Urine and blood cultures negative to date. Patient empirically on Rocephin and doxycycline. Procalcitonin remains elevated, will continue with antibiotics. MRSA screen negative. Hematologic: CBC stable. Endocrine: TSH mildly low, but free T4 limits. F/E/N: Tube feeds Lines and tubes: Peripheral IV Altamirano catheter in place VTE prophylaxis: Heparin 5000 units subcu twice daily CODE STATUS: Full code Family at bedside: Not available bedside at this time Disposition: ICU I have personally spent 42 minutes of critical care time in the direct management of this patient. This is a life/limb threatening event. This includes time spent evaluating patient, direct bedside care, chart review, placing orders, interpretation of diagnostic studies, discussion with consultants, patient, and family members, as well as other required patient management activities. This time is exclusive of all separately billable procedures, and teaching time and separate from and in addition to any other critical care service time. Thank you for allowing us to participate in the care of this patient. Admission and Anticipated Discharge Date Admission Date: March 10, 2022 Subjective Patient seen and examined this morning. She is alert and oriented. She is tachypneic on the ventilator. She is currently on spontaneous breathing trial. Hemodynamically stable. No overnight events. Review of Systems Review of Systems: All systems reviewed & are unremarkable except as noted in HPI & below Physical Exam Physical Exam: Constitutional: Intubated and appears anxious. Eyes: Pupils are equal round and reactive to light. Conjunctivae are normal. Anicteric sclera. Ears nose, mouth and throat: ET tube in place. Neck: Trachea is midline. Visual inspection is normal. Respiratory: Prolonged phase of exhalation. Wheezing improved compared to yesterday. Cardiovascular: Tachycardic. Regular rhythm. No murmurs. No edema. Gastrointestinal: Normal bowel sounds, soft, nontender and nondistended. No hepatosplenomegaly noted. Musculoskeletal: No cyanosis. Patient is able to move all extremities. Skin: No rashes, warm dry and intact. Neurologic: Follows intermittent commands Psychiatric: Unable to assess due to intubation status Results & Data Results & Data ([facility]) Vital Signs (Past 12 Hours) Vital Signs Temp Pulse Pulse Resp BP BP Pulse Ox 03/15/22 06:30 37.6 C H 89 26 H 98 03/15/22 06:00 37.7 C H 95 H 94 H 29 H 153/101 H 168/100 H 97 03/15/22 05:47 37.7 C H 95 H 34 H 119/93 96 03/15/22 05:41 37.7 C H 98 H 32 H 162/95 H 96 03/15/22 05:30 37.7 C H 113 H 31 H 96 03/15/22 05:15 26 H 03/15/22 05:00 37.5 C 116 H 28 H 189/109 H 97 03/15/22 04:30 37.3 C 105 H 28 H 179/110 H 99 03/15/22 04:22 37.3 C 84 19 159/102 H 98 04/23/22 04:00 37.3 C 90 23 160/91 H 98 03/15/22 03:30 37.2 C 88 22 137/76 98 03/15/22 03:00 37.1 C 92 H 20 140/89 99 03/15/22 02:50 109 H 29 H 98 03/15/22 02:30 37.0 C 105 H 24 175/106 H 99 03/15/22 02:00 36.9 C 83 22 133/77 98 03/15/22 01:30 37.0 C 84 22 119/76 99 03/15/22 01:00 37.0 C 86 24 150/83 H 98 03/15/22 00:35 37.0 C 87 24 99 03/15/22 00:04 87 24 99 03/15/22 00:00 37.1 C 74 24 147/83 H 99 03/14/22 23:30 37.2 C 81 24 132/79 99 03/14/22 23:25 37.2 C 76 24 121/71 03/14/22 23:04 96 H 27 H 99 03/14/22 23:00 37.2 C 86 25 H 111/77 99 03/14/22 22:30 37.2 C 89 25 H 123/85 99 03/14/22 22:05 37.3 C 91 H 25 H 145/90 H 98 03/14/22 22:00 37.3 C 91 H 23 129/72 99 03/14/22 21:30 37.5 C 93 H 26 H 128/77 98 03/14/22 21:00 37.8 C H 100 H 26 H 150/88 H 97 03/14/22 20:30 37.9 C H 102 H 24 119/76 98 03/14/22 20:25 37.9 C H 103 H 23 98 03/14/22 20:24 38.0 C H 104 H 23 109/70 03/14/22 20:09 37.9 C H 136 H 23 96 Coding Level of Care Code Critical Care 1st 30-74 mins Diagnoses Acute systolic heart failure I50.21 Acute respiratory failure with hypercapnia J96.02 Influenza A J10.1 Chronic pericarditis with effusion I31.8 Anxiety F41.9 Time Spent (min) 42
[2022-03-15] MEDS ORDERED: LORazepam 0.5 MG TAB ONE (07:57)
[2022-03-15] MEDS: LORazepam 0.5 MG TAB PO SCH ×3 (07:58→20:51)
[2022-03-15] MEDS ORDERED: METOPROLOL TARTRATE 1 MG/ML VIAL IV STA ×4 (07:59→20:25)
--- NOTE | 2022-03-15 08:51 | XRay Report ---
XR chest 1V portable CLINICAL HISTORY: Respiratory failure. COMPARISON STUDY: Chest radiograph March 13, 2022. FINDINGS: Tip of endotracheal tube is 5.2 cm above the yue. Tip of nasogastric tube is at least wi thin the body of the stomach. There is no pneumothorax or pleural effusion. No evidence for pulmonary edema. Emphysema is present. Subtle reticulonodular interstitial thickening within the left lung is unchanged. IMPRESSION: 1. Satisfactory positioning of the endotracheal tube. 2. Emphysema. 3. No change in subtle reticulonodular interstitial thickening within the left lung. This could refle ct an infectious process. ACT 112: Negative or not required by law. Electronically signed by: Shaheed Xiong M.D. 03/15/2022 8:49 AM
[2022-03-15] MEDS: DOXYCYCLINE HYCLATE 100 MG in DEXTROSE 5% 100 ML IV SCH ×2 (09:27→20:50)
[2022-03-15] MEDS: FLUTICASONE/VILANTEROL 100/25MCG 14 PUFFS/INHALER INH SCH (09:35)
--- NOTE | 2022-03-15 11:47 | Cardiology Progress Note ---
Date of Service March 15, 2022 Assessment & Plan (1) Acute respiratory failure with hypoxia: (2) Acute systolic heart failure: (3) Influenza A: Plan: 56-year-old female with history of COPD, significant left lung disease that she had been referred for consideration of lung transplantation in the past (felt to not be a good candidate). Presented with progressive respiratory insufficiency, influenza A, ultimately requiring ventilator support. Has previous history of mild left ventricular systolic dysfunction, nonischemic past stress testing, and acute LV systolic dysfunction this admission with a somewhat mild and flat elevation in her HS troponin. Question if echo is entry level marketing representative of an acute decline in LV systolic function due to stress-induced cardiomyopathy. Continue supportive care. Resume metoprolol as heart and blood pressure tolerate. Continue aspirin. Agree with antibiotic therapy and corticosteroid therapy as ordered by critical care. Continue subcutaneous heparin for DVT prophylaxis. Admission and Anticipated Discharge Date Admission Date: March 10, 2022 Subjective Patient seen in cardiology follow-up, previously followed by Dr. Monaco this hospital stay. At the time my assessment in ICU room 102, preparations were in process for weaning her from the ventilator, and she has since been transitioned to BiPAP FiO2 30%. Dobutamine and norepinephrine infusions had been weaned. Telemetry with findings of sinus rhythm in the 80s. Physical Exam Constitutional: no acute distress Respiratory: Reduced breath sounds bilaterally at the bases Cardiovascular: RRR, no murmur, no edema Gastrointestinal (Abdomen): normal bowel sounds, soft, nontender, no hepatosplenomegaly Results & Data ([facility]) Vital Signs (Past 12 Hours) Vital Signs Temp Pulse Pulse Resp BP BP Pulse Ox 03/15/22 10:00 37.2 C 84 20 115/68 97 03/15/22 09:45 37.3 C 84 16 122/68 99 03/15/22 09:38 84 14 99 03/15/22 09:30 37.3 C 87 17 128/76 96 03/15/22 09:15 37.4 C 81 9 L 119/67 97 03/15/22 09:00 37.4 C 90 11 L 112/68 97 03/15/22 08:45 37.5 C 90 16 131/75 99 03/15/22 08:30 37.6 C H 93 H 10 L 130/84 100 03/15/22 08:15 37.6 C H 97 H 13 128/94 100 04/23/22 08:00 37.6 C H 109 H 23 168/97 H 99 03/15/22 07:45 37.5 C 112 H 32 H 95 03/15/22 07:39 113 H 30 H 97 03/15/22 07:30 37.4 C 94 H 26 H 168/102 H 99 03/15/22 07:15 37.4 C 84 36 H 98 03/15/22 07:00 37.4 C 84 36 H 135/86 98 03/15/22 06:45 37.5 C 87 32 H 98 03/15/22 06:30 37.6 C H 89 26 H 98 03/15/22 06:00 37.7 C H 95 H 94 H 29 H 153/101 H 168/100 H 97 03/15/22 05:47 37.7 C H 95 H 34 H 119/93 96 03/15/22 05:41 37.7 C H 98 H 32 H 162/95 H 96 03/15/22 05:30 37.7 C H 113 H 31 H 96 03/15/22 05:15 26 H 03/15/22 05:00 37.5 C 116 H 28 H 189/109 H 97 03/15/22 04:30 37.3 C 105 H 28 H 179/110 H 99 03/15/22 04:22 37.3 C 84 19 159/102 H 98 03/15/22 04:00 37.3 C 90 23 160/91 H 98 03/15/22 03:30 37.2 C 88 22 137/76 98 03/15/22 03:00 37.1 C 92 H 20 140/89 99 03/15/22 02:50 109 H 29 H 98 03/15/22 02:30 37.0 C 105 H 24 175/106 H 99 03/15/22 02:00 36.9 C 83 22 133/77 98 03/15/22 01:30 37.0 C 84 22 119/76 99 03/15/22 01:00 37.0 C 86 24 150/83 H 98 03/15/22 00:35 37.0 C 87 24 99 03/15/22 00:04 87 24 99 03/15/22 00:00 37.1 C 74 24 147/83 H 99 Diagnostic Findings EKG performed 03/11/2022 revealed sinus tachycardia at 118 bpm, with incomplete right bundle branch block, nonspecific T wave flattening Echocardiogram performed this admission 03/11/2022 with images reviewed independently, severe diffuse global left ventricular hypokinesis noted, LVEF 20-25%. A small circumferential, mostly anterior pericardial effusion noted. Compared to prior study performed at this institution 03/24/2022, there have been interval decline in the left ventricular systolic function, with LVEF in the range of 45 to 50% at that time. The pericardial effusion is unchanged.
[2022-03-15] MEDS: LEVALBUTEROL HCL 1.25 MG/3 ML NEB NEB PRN ×2 (11:56→23:30)
[2022-03-15] MEDS ORDERED: MoRPHine SULFATE 2 MG/ML CARP IM PRN (12:30)
[2022-03-15] MEDS: METOPROLOL TARTRATE 25 MG TAB PO SCH (13:03)
[2022-03-15] MEDS: MoRPHine SULFATE 2 MG/ML CARP IV PRN (13:36)
[2022-03-15] MEDS: CEFEPIME 2,000 MG in SYRINGE 0 ML IV SCH (13:49)
[2022-03-15] MEDS ORDERED: INSULIN ASPART PER UNIT SC ONE (14:15)
--- NOTE | 2022-03-15 17:07 | Hospitalist Progress Note ---
Date of Service March 15, 2022 Assessment & Plan (1) Acute respiratory distress: Plan: Acute hypercarbic respiratory failure COPD exacerbation Influenza A CXR showed Ill-defined nodule versus airspace disease of the left upper lobe. Repeat CXR showed Interval improvement in left lung airspace opacities. - Patient has tenuous respiratory status and unable to wean off BIPAP. Had increasing work of breathing with ABG showing severe hypercapnia and acidosis and transferred to ICU for closer monitoring and possible need for intubation. -S/P mechanical vent support, then extuabetd on 03/15 -Propofol and Precedex drips discontinued - Continue IV doxycycline. IV cefepime changed to Zosyn - Continue IV steroids, nebs treatment - CXR shows mildly incrased interstitial markings - Repeat cxr showed no change in subtle reticulonodular interstitial thickening within the left lung. This could reflect an infectious process. - Continue monitor closely in the ICU - Will consult speech Elevated troponin possible demand ischemia from respiratory distress. Trop slightly increased to 0.041 IV heparin drip was discontinued Cardiology on board Metoprolol resumed and continue aspirin Systolic heart failure BNP on admission 682 ECHO showed dilated left ventricle with severe global hypokinesis and estimated left ventricular ejection fraction of around 20 to 25%.Thickening of the pericardium and a small pericardial effusion consistent with chronic pericarditis. Dobutamine drip discontinued Cardiology on board Hypotension Levophed discontinued BP stable Anxiety IV precedex drip discontinued Continue gabapentin CAD s/p stenting Continue aspirin, betablocker GERD- On PPI Hypothyroidism Continue synthroid DVT prophylaxis- Heparin subq Disposition Continue monitor closely in the ICU Admission and Anticipated Discharge Date Admission Date: March 10, 2022 Subjective Pt was seen and examined for follow up of respiratory failure Lying in bed with no acute distress with at bedside. Pt was extubated this morning Denies any chest pain, palpitation, dizziness and near Review of Systems Review of Systems: All systems reviewed & are unremarkable except as noted in Subjective Physical Exam Physical Exam: General- Vent support on sedation Head- atraumatic Eyes- PERRL, EOMI, ENT- Intubated Neck- supple, no JVD Lungs- Diminished BS Heart- regular rhythm; no murmur Abdomen- normal bowel sounds, soft, nontender Extremities- no calf tenderness Neuro- Vent support, sedated Skin- warm & dry Results & Data Results & Data ([facility]) Vital Signs (Past 12 Hours) Vital Signs Temp Pulse Pulse Resp BP BP Pulse Ox 03/15/22 16:00 38.2 C H 117 H 17 196/109 H 99 03/15/22 15:44 109 H 18 100 03/15/22 15:30 38.2 C H 109 H 17 176/106 H 100 03/15/22 15:00 38.2 C H 111 H 19 185/109 H 100 03/15/22 14:30 38.1 C H 115 H 21 185/109 H 99 03/15/22 14:00 38.1 C H 108 H 21 98 03/15/22 13:30 37.9 C H 124 H 45 H 218/127 H 88 L 03/15/22 13:21 37.8 C H 118 H 18 191/126 H 03/15/22 13:16 37.8 C H 107 H 35 H 205/142 H 75 L 03/15/22 13:00 37.6 C H 101 H 28 H 177/105 H 100 03/15/22 12:45 37.4 C 96 H 16 175/98 H 99 03/15/22 12:30 37.2 C 120 H 28 H 213/154 H 97 03/15/22 12:15 37.1 C 115 H 22 177/118 H 99 03/15/22 12:00 37.0 C 89 14 155/86 H 98 03/15/22 11:52 88 18 98 03/15/22 11:45 37.0 C 81 13 140/80 98 03/15/22 11:30 37.0 C 81 15 146/79 H 98 03/15/22 11:15 37.0 C 75 17 108/66 97 03/15/22 11:00 37.0 C 76 17 100/68 97 03/15/22 10:45 37.1 C 78 16 112/64 97 03/15/22 10:30 37.1 C 79 17 106/69 97 03/15/22 10:15 37.2 C 79 17 105/69 97 03/15/22 10:00 37.2 C 84 20 115/68 97 03/15/22 09:45 37.3 C 84 16 122/68 99 03/15/22 09:38 84 14 99 03/15/22 09:30 37.3 C 87 17 128/76 96 03/15/22 09:15 37.4 C 81 9 L 119/67 97 03/15/22 09:00 37.4 C 90 11 L 112/68 97 03/15/22 08:45 37.5 C 90 16 131/75 99 03/15/22 08:30 37.6 C H 93 H 10 L 130/84 100 03/15/22 08:15 37.6 C H 97 H 13 128/94 100 03/15/22 08:00 37.6 C H 109 H 23 168/97 H 99 03/15/22 07:45 37.5 C 112 H 32 H 95 03/15/22 07:39 113 H 30 H 97 03/15/22 07:30 37.4 C 94 H 26 H 168/102 H 99 03/15/22 07:15 37.4 C 84 36 H 98 03/15/22 07:00 37.4 C 84 36 H 135/86 98 03/15/22 06:45 37.5 C 87 32 H 98 03/15/22 06:30 37.6 C H 89 26 H 98 03/15/22 06:00 37.7 C H 95 H 94 H 29 H 153/101 H 168/100 H 97 03/15/22 05:47 37.7 C H 95 H 34 H 119/93 96 03/15/22 05:41 37.7 C H 98 H 32 H 162/95 H 96 03/15/22 05:30 37.7 C H 113 H 31 H 96 03/15/22 05:15 26 H
[2022-03-15 17:24] LABS: CK Iso Interpretation BB BAND PRESENT.; CK Total 331 U/L (29-143); CK-MB 11 % (<5); CK-MM 88 % (95-100)
[2022-03-15] MEDS ORDERED: PIPERACILL/TAZOBAC CONSULT ACTIVE PRN (20:24)
[2022-03-15] MEDS ORDERED: ACETAMINOPHEN 1,000 MG/100 ML VIAL IV STA (20:28)
--- NOTE | 2022-03-15 20:29 | Communication Note ---
Date of Service: March 15, 2022 RN requesting for PCU transfer orders. (0K with ICU provider as patient not on ICU patient list as per ICU provider as per RN.) Patient noted to be febrile and tachycardic. A.m. chest x-ray showed subtle reticulonodular interstitial thickening within the left lung. (Not present on 03/10 admission CXR) AP Sepsis secondary to HAP/possible aspiration given history of recent endotracheal intubation Continue doxycycline Change Cefepime to Zosyn for additional anaerobic coverage Will relay to AM provider.
[2022-03-15] MEDS ORDERED: PIPERACILLIN/TAZOBACTAM 4.5 GM in DEXTROSE 5% 100 ML IV ONE (21:00)
[2022-03-16] MEDS: PIPERACILLIN/TAZOBACTAM 3.375 GM in DEXTROSE 5% 100 ML IV SCH ×3 (01:13→16:58)
[2022-03-16] MEDS: TUBE FEEDING WATER FLUSH OG SCH ×6 (01:13→20:51)
[2022-03-16] MEDS ORDERED: METOPROLOL TARTRATE 1 MG/ML VIAL IV STA (02:41)
[2022-03-16] MEDS: INSULIN ASPART PER UNIT SC SCH ×6 (04:04→23:45)
[2022-03-16 04:35] LABS: Nucleated RBC # (auto) 0.02 K/uL (0-0); Nucleated RBC % (auto) 0.1 %
[2022-03-16 04:49] LABS: Hematocrit (blood only) 39.4 % (37-47); Hemoglobin 13.3 g/dL (12.0-16.0); Mean Corpuscular Hemoglobin 31.4 pg (25-34); Mean Corpuscular Hgb Conc 33.8 g/dL (32-36); Mean Corpuscular Volume 93.1 fL (80-100); Mean Platelet Volume 10.3 fL (7.4-10.4); Platelet Count 302 K/uL (130-400); RDW Coefficient of Variation 13.9 % (11.5-14.5); RDW Standard Deviation 47.3 fL (36.4-46.3); Red Blood Count 4.23 M/uL (4.2-5.4); White Blood Count 16.52 K/uL (4.8-10.8)
[2022-03-16 05:01] LABS: BUN Creatinine Ratio 31.2 (10-20); Calcium 8.4 mg/dl (8.5-10.1); Creatinine Clr Calc Pharmacy 60.7 ml/min; Est GFR (African American) 79.1 ml/min; Est GFR (Non-African American) 68.2 ml/min; Phosphorus 1.9 mg/dl (2.5-4.9); Potassium 4.2 mmol/L (3.5-5.1)
[2022-03-16] MEDS: METOPROLOL TARTRATE 1 MG/ML VIAL IV SCH ×3 (05:46→16:59)
[2022-03-16] MEDS: LEVOTHYROXINE SODIUM 75 MCG TABLET PO SCH (05:51)
[2022-03-16 06:42] LABS: Basophilic Stippling 1+; Basophils # (auto) 0.01 K/uL (0-0.2); Basophils % (auto) 0.1 %; Eosinophils # (auto) 0.03 K/uL (0-0.5); Eosinophils % (auto) 0.2 %; Immature Granulocytes # (auto) 0.22 K/uL (0.00-0.02); Immature Granulocytes % (auto) 1.3 %; Lymphocytes # (auto) 3.88 K/uL (1.2-3.4); Lymphocytes % (auto) 23.5 %; Monocytes # (auto) 1.61 K/uL (0.11-0.59); Monocytes % (auto) 9.7 %; Neutrophils # (auto) 10.77 K/uL (1.4-6.5); Neutrophils % (auto) 65.2 %
[2022-03-16] MEDS: LEVALBUTEROL 1.25MG/0.5ML NEB INH SCH ×4 (06:59→23:07)
[2022-03-16] MEDS: LEVALBUTEROL HCL 1.25 MG/3 ML NEB NEB PRN ×3 (06:59→23:06)
[2022-03-16] MEDS: IPRATROPIUM BROMIDE NEB SOLN 0.02% 2.5 ML VIAL INH SCH ×4 (06:59→23:06)
[2022-03-16] MEDS: FLUTICASONE/VILANTEROL 100/25MCG 14 PUFFS/INHALER INH SCH (08:09)
[2022-03-16] MEDS: UMECLIDINIUM BROMIDE 62.5MCG/BLISTER 7 PUFFS/INHALER INH SCH (08:10)
[2022-03-16] MEDS: HEPARIN SOD 5,000 UNIT/0.5 ML VIAL SC SCH ×2 (08:11→20:44)
[2022-03-16] MEDS: DOXYCYCLINE HYCLATE 100 MG in DEXTROSE 5% 100 ML IV SCH ×2 (08:12→20:43)
[2022-03-16] MEDS ORDERED: SODIUM PHOSPHATE 3 MMOL/1 ML INFUSION IV STA (08:19)
[2022-03-16] MEDS ORDERED: SODIUM PHOSPHATE 12 MMOL in SODIUM CHLORIDE 0.9% 250 ML IV ONE (08:45)
--- NOTE | 2022-03-16 08:50 | Cardiology Progress Note ---
Date of Service March 16, 2022 Assessment & Plan (1) Acute respiratory failure with hypoxia: (2) Acute systolic heart failure: (3) Influenza A: Plan: 56-year-old female with history of COPD, significant left lung disease that she had been referred for consideration of lung transplantation in the past (felt to not be a good candidate). Presented with progressive respiratory insufficiency, influenza A, ultimately requiring ventilator support. Has previous history of mild left ventricular systolic dysfunction, nonischemic past stress testing, and acute LV systolic dysfunction this admission with a somewhat mild and flat elevation in her HS troponin. Question if echo is retail field representative of an acute decline in LV systolic function due to stress-induced cardiomyopathy. Volume status appears stable based on exam and CXR from 03/15/22. Resume beta lynne , short acting metoprolol tartrate for now. If BP allows , will consider adding Entresto tomorrow as BP allows and perhaps spironolactone. Admission and Anticipated Discharge Date Admission Date: March 10, 2022 Subjective Patient seen in cardiology followup. Since yesterday, she was successfully weaned from the ventilator and from Bipap. Still with significant oxygen requirement. Sinus tachyardia at 107 bpm noted on telemetery. No acute complaints. Denies chest pain. Review of Systems Review of Systems: All systems reviewed & are unremarkable except as noted in HPI & below Physical Exam Constitutional: + ill appearing; no acute distress Respiratory: mildly decreased BS at the bases , otherwise clear Cardiovascular: RRR, no murmur, no edema Gastrointestinal (Abdomen): normal bowel sounds, soft, nontender, no hepatosplenomegaly Neurologic: PERRL, EOMI, accommodation nl, no face palsy, no dysarthria Results & Data ([facility] [place]) Vital Signs (Past 12 Hours) Vital Signs Temp Pulse Pulse Resp BP BP Pulse Ox 03/16/22 07:02 102 H 98 H 20 97 03/16/22 06:00 37.9 C H 99 H 16 157/98 H 97 03/16/22 05:46 98 H 165/95 H 03/16/22 05:00 37.9 C H 96 H 23 97 03/16/22 04:00 37.9 C H 97 H 19 165/95 H 97 03/16/22 03:57 37.8 C H 95 H 160/99 H 03/16/22 03:56 37.9 C H 97 H 14 160/99 H 97 03/16/22 03:29 109 H 15 97 03/16/22 03:07 108 H 156/99 H 03/16/22 03:00 37.9 C H 109 H 20 97 03/16/22 02:00 37.9 C H 110 H 17 156/99 H 97 03/16/22 01:51 37.9 C H 112 H 14 162/101 H 97 03/16/22 01:00 38.0 C H 113 H 24 97 03/16/22 00:11 116 H 03/16/22 00:00 37.9 C H 113 H 16 181/106 H 97 03/15/22 23:31 100 H 16 97 03/15/22 23:00 37.9 C H 98 H 21 97 03/15/22 22:51 95 H 16 97 03/15/22 22:30 37.9 C H 98 H 13 161/100 H 97 03/15/22 22:00 37.9 C H 96 H 16 173/102 H 98 03/15/22 21:30 38.0 C H 93 H 15 166/91 H 98 03/15/22 21:00 38.0 C H 106 H 16 98 03/15/22 20:50 105 H 183/101 H
[2022-03-16] MEDS ORDERED: ACETAMINOPHEN 65 ML IV ONE ×2 (09:00→18:00)
[2022-03-16] MEDS: ONDANSETRON INJ 2 MG/ML 2 ML VIAL IV PRN ×3 (09:32→20:55)
[2022-03-16] MEDS: GABAPENTIN 100 MG CAP PO SCH ×3 (10:45→20:51)
[2022-03-16] MEDS: LORazepam 0.5 MG TAB PO SCH ×3 (10:45→20:51)
--- NOTE | 2022-03-16 11:30 | Pulmonology Progress Note ---
Date of Service March 16, 2022 Assessment & Plan (1) Acute respiratory failure with hypercapnia: Plan: Continue with BiPAP at all times while sleeping and as needed with shortness of breath. Continue prednisone therapy for total 5 to 7 days. She transitioned off IV Solu-Medrol earlier this hospital course. Continue her maintenance inhalers and as needed nebs. She would benefit as an outpatient from pulmonary rehab and likely benefit from noninvasive ventilation such as trilogy. Recommend getting out of bed to chair. Flutter and incentive spirometer will be ordered. Continue empiric antibiotics at this time. (2) Acute systolic heart failure: Plan: EF found to be decreased to 20 to 25% this hospitalization. Cardiology managing. (3) Influenza A: Plan: Symptoms improved (4) Chronic pericarditis with effusion: Plan: Cardiology managing (5) Anxiety: Plan: Continue with as needed anxiolysis, but dose judiciously given propensity to go into hypercapnic respiratory failure. Plan: Pulmonary will sign off. Please call with questions. Thank you for the consult. Admission and Anticipated Discharge Date Admission Date: March 10, 2022 Subjective Patient seen and examined. Doing much better today. Shortness of breath is significantly improved. No fevers or chills this morning. No chest pain. She did spike fevers overnight. Cefepime was changed to Zosyn. Physical Exam Physical Exam: Constitutional: Frail appearing female laying in bed. No apparent distress. Eyes: Pupils are equal round and reactive to light. Conjunctivae are normal. Anicteric sclera. Ears nose, mouth and throat: Difficult to examine given the BiPAP mask placement. Neck: Trachea is midline. Visual inspection is normal. Respiratory: Prolonged phase of exhalation. Wheezing has diminished. Cardiovascular: Regular rate and rhythm. No murmurs. No edema. Gastrointestinal: Normal bowel sounds, soft, nontender and nondistended. No hepatosplenomegaly noted. Musculoskeletal: No cyanosis. Patient is able to move all extremities. Skin: No rashes, warm dry and intact. Neurologic: No obvious focal neurological deficits seen. Psychiatric: Mildly anxious appearing. Alert and oriented x3. Results & Data Results & Data ([facility]) Vital Signs (Past 12 Hours) Vital Signs Temp Pulse Pulse Resp BP BP Pulse Ox 03/16/22 10:16 99 H 03/16/22 10:00 38.0 C H 96 H 17 150/90 H 97 04/24/22 09:30 38.0 C H 105 H 15 98 03/16/22 09:00 38.0 C H 100 H 16 97 03/16/22 08:30 37.9 C H 107 H 19 98 03/16/22 08:00 37.9 C H 109 H 16 152/94 H 97 03/16/22 07:02 102 H 98 H 20 97 03/16/22 06:00 37.9 C H 99 H 16 157/98 H 97 03/16/22 05:46 98 H 165/95 H 03/16/22 05:00 37.9 C H 96 H 23 97 03/16/22 04:00 37.9 C H 97 H 19 165/95 H 97 03/16/22 03:57 37.8 C H 95 H 160/99 H 03/16/22 03:56 37.9 C H 97 H 14 160/99 H 97 03/16/22 03:29 109 H 15 97 03/16/22 03:07 108 H 156/99 H 03/16/22 03:00 37.9 C H 109 H 20 97 03/16/22 02:00 37.9 C H 110 H 17 156/99 H 97 03/16/22 01:51 37.9 C H 112 H 14 162/101 H 97 03/16/22 01:00 38.0 C H 113 H 24 97 03/16/22 00:11 116 H 03/16/22 00:00 37.9 C H 113 H 16 181/106 H 97 03/15/22 23:31 100 H 16 97 PG Care Time/CCT Total # of Minutes Spent Total Time Spent with Patient: Total time spent is greater than 50% in coordination of care (as documented) at patient's floor/unit and/or counseling patient: Coding Level of Care Code 12026 Subseq Hosp Care Lvl 2 Diagnoses Acute systolic heart failure I50.21 Acute respiratory failure with hypercapnia J96.02 Influenza A J10.1 Chronic pericarditis with effusion I31.8 Anxiety F41.9
--- NOTE | 2022-03-16 12:03 | Electrocardiogram Report ---
Test Reason : Blood Pressure : / mmHG Vent. Rate : 098 BPM Atrial Rate : 098 BPM P-R Int : 120 ms QRS Dur : 086 ms QT Int : 374 ms P-R-T Axes : 087 094 101 degrees QTc Int : 477 ms Poor data quality, interpretation may be adversely affected Sinus rhythm with occasional Premature ventricular complexes Right atrial enlargement Rightward axis T wave abnormality, consider anterolateral ischemia Prolonged QT Abnormal ECG When compared with ECG of 11-MAR-2022 13:46, Premature ventricular complexes are now Present Non-specific change in ST segment in Lateral leads T wave inversion more evident in Lateral leads Confirmed by Berlin Rod ([id number]) on 03/16/2022 12:02:34 PM Referred By: REFERRED SELF Confirmed By:Berlin Rod
[2022-03-16] MEDS: SENNOSIDES 8.8 MG/5 ML UDC PO SCH ×2 (12:23→20:51)
[2022-03-16] MEDS: FOLIC ACID 1 MG TAB PO SCH (12:23)
[2022-03-16] MEDS: METOPROLOL TARTRATE 25 MG TAB PO SCH (12:23)
[2022-03-16] MEDS: LANSOPRAZOLE 30 MG SOLTAB NG SCH (12:23)
[2022-03-16] MEDS: DOCUSATE SODIUM SYRUP 100 MG/10 ML UDC PO SCH ×2 (12:23→20:51)
[2022-03-16] MEDS: predniSONE 20 MG TAB PO SCH (12:23)
[2022-03-16] MEDS: CHOLECALCIFEROL 1,000 UNITS 25 MCG TAB PO SCH (12:24)
[2022-03-16] MEDS: ASPIRIN 81 MG CHEW NG SCH (12:24)
--- NOTE | 2022-03-16 13:25 | Pharmacy Report ---
Pharmacy Glycemic Short Note 2 - Date of Service March 16, 2022 - Glycemic Short BSG Results (Last 24 hours): 03/15/22 03/15/22 03/15/22 13:45 16:25 20:05 Glucose POC Glucose 206 H 130 H 105 H 03/15/22 03/16/22 03/16/22 23:24 04:02 04:20 Glucose 150 H POC Glucose 125 H 144 H 03/16/22 03/16/22 08:05 12:17 Glucose POC Glucose 171 H 127 H OUTPATIENT ANTIDIABETIC REGIMEN: * None * HbA1c = 5.6% (03/14/22) ASSESSMENT: 03/16/22 * BSGs yesterday were 249-287 (received IV 10 unit bolus)-[phone] mg/dL. Today's BSGs are 144-171-127 mg/dL. * Patient transitioned from Solu-Medrol 40 mg IV BID (received 1 dose on 03/15/22) to prednisone 40 mg daily today. * Patient extubated yesterday. Tube feedings stopped yesterday and patient subsequently NPO. * Patient is not diabetic at home so attempting to not use basal insulin. Patient does correct appropriate. Will continue with tight correction factor to prevent hypoglycemia from basal insulin. Background * 56 yo F admitted on 03/10/22 secondary to acute exacerbation of COPD. Acute respiratory failure progressed throughout stay, and patient was intubated on 03/12/22. Peptamen 1.5 tube feeds started on 03/12/22 as well. Patient was also on IV methylprednisolone at the time for COPD. * Combination of steroid-induced hyperglycemia, increased stressors and addition of tube feeds lead to ICU hyperglycemia protocol being met. * Remains intubated today. TF at 40 cc/hr. Solumedrol weaned from TID to BID. * Will start Novolog based on weight/stress of three with accuchecks q4h to mimic basal insulin. Targeting lower goal range of 110-140 mg/dL. PLAN FOR INPATIENT GLYCEMIC CONTROL: * Basal insulin * None * Bolus insulin * NovoLog per scale ACHS or Q6hrs while NPO * Goal Range: Low 110 mg/dL - High 140 mg/dL * Correction Factor: 20 mg/dL/unit * Nutritional / Prandial insulin per carb ratio of 1 unit per 7 grams CHO consumed DISCHARGE RECOMMENDATIONS: * Patient is not diabetic. Will not require any diabetic medications upon discharge regardless of steroid use.
--- NOTE | 2022-03-16 13:56 | Hospitalist Progress Note ---
Date of Service March 16, 2022 Assessment & Plan (1) Acute respiratory distress: Plan: Acute hypercarbic respiratory failure COPD exacerbation Influenza A CXR showed Ill-defined nodule versus airspace disease of the left upper lobe. Repeat CXR showed Interval improvement in left lung airspace opacities. - Patient has tenuous respiratory status and unable to wean off BIPAP. Had increasing work of breathing with ABG showing severe hypercapnia and acidosis and transferred to ICU for closer monitoring and possible need for intubation. -S/P mechanical vent support, then extuabetd on 03/15 -Propofol and Precedex drips discontinued - Continue IV doxycycline. IV cefepime changed to Zosyn - Continue IV steroids, nebs treatment - CXR shows mildly incrased interstitial markings - Repeat cxr showed no change in subtle reticulonodular interstitial thickening within the left lung. This could reflect an infectious process. - Continue monitor closely in the ICU - Speech on board - Pt does poor during swallow eval Elevated troponin possible demand ischemia from respiratory distress. Trop slightly increased to 0.041 IV heparin drip was discontinued Cardiology on board Metoprolol changed to IV since pt is NPO Continue aspirin Dysphagia Speech on board - Pt does poor during swallow eval Will keep NPO for now Plan for FEES tomorrow Systolic heart failure BNP on admission 682 ECHO showed dilated left ventricle with severe global hypokinesis and estimated left ventricular ejection fraction of around 20 to 25%.Thickening of the pericardium and a small pericardial effusion consistent with chronic pericarditis. Dobutamine drip discontinued Cardiology on board Hypotension Levophed discontinued BP stable Resolved Anxiety IV Precedex drip discontinued Continue gabapentin CAD s/p stenting Continue aspirin, betablocker GERD- On PPI Hypothyroidism Continue synthroid DVT prophylaxis- Heparin subq Disposition Will transfer out of ICU Admission and Anticipated Discharge Date Admission Date: March 10, 2022 Subjective Pt was seen and examined for follow up of respiratory failure Lying in bed with no acute distress Pt said that her breathing is getting better She spikes a fever this morning Nurse said that she did not do well during the swallow eval Denies any chest pain, palpitation, dizziness and SOB Review of Systems Review of Systems: All systems reviewed & are unremarkable except as noted in Subjective Physical Exam Physical Exam: General- Vent support on sedation Head- atraumatic Eyes- PERRL, EOMI, ENT- No trachea deviation, tongue midline Neck- supple, no JVD Lungs- Diminished BS Heart- regular rhythm; no murmur Abdomen- normal bowel sounds, soft, nontender Extremities- no calf tenderness Neuro- AA0x3, move all 4 extremities, EOMI Skin- warm & dry Results & Data Results & Data ([facility]) Vital Signs (Past 12 Hours) Vital Signs Temp Pulse Pulse Resp BP BP Pulse Ox 03/16/22 13:12 84 20 98 03/16/22 12:21 85 151/88 H 03/16/22 10:16 99 H 03/16/22 10:00 38.0 C H 96 H 17 150/90 H 97 03/16/22 09:30 38.0 C H 105 H 15 98 03/16/22 09:00 38.0 C H 100 H 16 97 03/16/22 08:30 37.9 C H 107 H 19 98 03/16/22 08:00 37.9 C H 109 H 16 152/94 H 97 03/16/22 07:02 102 H 98 H 20 97 03/16/22 06:00 37.9 C H 99 H 16 157/98 H 97 03/16/22 05:46 98 H 165/95 H 03/16/22 05:00 37.9 C H 96 H 23 97 03/16/22 04:00 37.9 C H 97 H 19 165/95 H 97 03/16/22 03:57 37.8 C H 95 H 160/99 H 03/16/22 03:56 37.9 C H 97 H 14 160/99 H 97 03/16/22 03:29 109 H 15 97 03/16/22 03:07 108 H 156/99 H 03/16/22 03:00 37.9 C H 109 H 20 97 03/16/22 02:00 37.9 C H 110 H 17 156/99 H 97
[2022-03-16] MEDS: MoRPHine SULFATE 2 MG/ML CARP IV PRN (23:14)
[2022-03-17] MEDS: METOPROLOL TARTRATE 1 MG/ML VIAL IV SCH ×4 (00:11→17:41)
[2022-03-17] MEDS: TUBE FEEDING WATER FLUSH OG SCH ×3 (00:11→08:38)
[2022-03-17] MEDS: PIPERACILLIN/TAZOBACTAM 3.375 GM in DEXTROSE 5% 100 ML IV SCH ×3 (00:11→17:06)
[2022-03-17] MEDS: INSULIN ASPART PER UNIT SC SCH ×4 (03:47→21:08)
[2022-03-17] MEDS: LEVOTHYROXINE SODIUM 75 MCG TABLET PO SCH (05:30)
[2022-03-17] MEDS: ONDANSETRON INJ 2 MG/ML 2 ML VIAL IV PRN (06:17)
[2022-03-17 06:36] LABS: BUN Creatinine Ratio 24.4 (10-20); Calcium 8.1 mg/dl (8.5-10.1); Creatinine Clr Calc Pharmacy 64.6 ml/min; Est GFR (African American) 82.3 ml/min; Phosphorus 2.4 mg/dl (2.5-4.9); Potassium 3.7 mmol/L (3.5-5.1)
[2022-03-17] MEDS: IPRATROPIUM BROMIDE NEB SOLN 0.02% 2.5 ML VIAL INH SCH ×4 (06:54→23:56)
[2022-03-17] MEDS: LEVALBUTEROL 1.25MG/0.5ML NEB INH SCH ×4 (06:54→23:56)
--- NOTE | 2022-03-17 08:16 | Pharmacy Report ---
Pharmacy Glycemic Short Note 2 - Date of Service March 17, 2022 - Glycemic Short BSG Results (Last 24 hours): 03/16/22 03/16/22 03/16/22 12:17 16:20 21:07 Glucose POC Glucose 127 H 137 H 124 H 03/16/22 03/17/22 03/17/22 23:32 03:22 05:54 Glucose 119 H POC Glucose 130 H 124 H 03/17/22 07:09 Glucose POC Glucose 129 H OUTPATIENT ANTIDIABETIC REGIMEN: * None * HbA1c = 5.6% (03/14/22) ASSESSMENT: 03/17/22 * Stressors stable - remains NPO on prednisone 40 mg daily * A total of 2 units of correctional insulin was required yesterday * Will extend interval from q4h to q6h and utilize regular insulin for now (in the event that tubefeeds are restarted) * Will loosen Novolog parameters as BSG's have been well controlled on minimal/no insulin and current parameters are quite tight 03/16/22 * BSGs yesterday were 249-287 (received IV 10 unit bolus)-[phone] mg/dL. Today's BSGs are 144-171-127 mg/dL. * Patient transitioned from Solu-Medrol 40 mg IV BID (received 1 dose on 03/15/22) to prednisone 40 mg daily today. * Patient extubated yesterday. Tube feedings stopped yesterday and patient subsequently NPO. * Patient is not diabetic at home so attempting to not use basal insulin. Patient does correct appropriate. Will continue with tight correction factor to prevent hypoglycemia from basal insulin. Background * 56 yo F admitted on 03/10/22 secondary to acute exacerbation of COPD. Acute respiratory failure progressed throughout stay, and patient was intubated on 03/12/22. Peptamen 1.5 tube feeds started on 03/12/22 as well. Patient was also on IV methylprednisolone at the time for COPD. * Combination of steroid-induced hyperglycemia, increased stressors and addition of tube feeds lead to ICU hyperglycemia protocol being met. * Remains intubated today. TF at 40 cc/hr. Solumedrol weaned from TID to BID. * Will start Novolog based on weight/stress of three with accuchecks q4h to mimic basal insulin. Targeting lower goal range of 110-140 mg/dL. PLAN FOR INPATIENT GLYCEMIC CONTROL: * Basal insulin * None * Bolus insulin * REGULAR INSULIN per scale Q6hrs while NPO * Goal Range: Low 110 mg/dL - High 140 mg/dL * Correction Factor: 30 mg/dL/unit * Nutritional / Prandial insulin per carb ratio of 1 unit per 10 grams CHO consumed DISCHARGE RECOMMENDATIONS: * Patient is not diabetic. Will not require any diabetic medications upon discharge regardless of steroid use.
[2022-03-17] MEDS: DOXYCYCLINE HYCLATE 100 MG in DEXTROSE 5% 100 ML IV SCH ×2 (08:19→20:39)
[2022-03-17] MEDS: HEPARIN SOD 5,000 UNIT/0.5 ML VIAL SC SCH ×2 (08:31→19:58)
[2022-03-17] MEDS: GABAPENTIN 100 MG CAP PO SCH ×3 (08:34→19:58)
[2022-03-17] MEDS: LORazepam 0.5 MG TAB PO SCH ×4 (08:35→20:32)
[2022-03-17] MEDS: ASPIRIN 81 MG CHEW NG SCH (08:35)
[2022-03-17] MEDS: CHOLECALCIFEROL 1,000 UNITS 25 MCG TAB PO SCH (08:35)
[2022-03-17] MEDS: LANSOPRAZOLE 30 MG SOLTAB NG SCH (08:35)
[2022-03-17] MEDS: FOLIC ACID 1 MG TAB PO SCH (08:35)
[2022-03-17] MEDS: DOCUSATE SODIUM SYRUP 100 MG/10 ML UDC PO SCH ×3 (08:35→20:04)
[2022-03-17] MEDS: FLUTICASONE/VILANTEROL 100/25MCG 14 PUFFS/INHALER INH SCH (08:36)
[2022-03-17] MEDS: predniSONE 20 MG TAB PO SCH (08:36)
[2022-03-17] MEDS: SENNOSIDES 8.8 MG/5 ML UDC PO SCH ×2 (08:36→20:01)
[2022-03-17] MEDS: UMECLIDINIUM BROMIDE 62.5MCG/BLISTER 7 PUFFS/INHALER INH SCH (08:37)
[2022-03-17] MEDS ORDERED: POTASSIUM PHOS 3 MMOL/1 ML INFUSION IV STA (11:00)
--- NOTE | 2022-03-17 11:05 | Cardiology Progress Note ---
Date of Service March 17, 2022 Assessment & Plan (1) Acute respiratory failure with hypoxia: (2) Acute systolic heart failure: (3) Influenza A: Plan: 56-year-old female with history of COPD, significant left lung disease that she had been referred for consideration of lung transplantation in the past (felt to not be a good candidate). Presented with progressive respiratory insufficiency, influenza A, ultimately requiring ventilator support. Has previous history of mild left ventricular systolic dysfunction, nonischemic past stress testing, and acute LV systolic dysfunction this admission with a somewhat mild and flat elevation in her HS troponin. Question if echo is rental representative of an acute decline in LV systolic function due to stress-induced cardiomyopathy. Volume status appears stable. Continue IV metoprolol, until confident with regards to aspiration risk, then change to oral. Will consider adding additional oral agents as tolerated once tolerating oral medication with confidence. Admission and Anticipated Discharge Date Admission Date: March 10, 2022 Subjective Pt seen in cardiology follow up of shortness of breath, LV systolic dysfunction. She is now in room 206. Pulse oxymetry 96% on 2 L oxymask, utilized BiPap overnight. Physical Exam Constitutional: + ill appearing; no acute distress Cardiovascular: RRR, no murmur, no edema Gastrointestinal (Abdomen): normal bowel sounds, soft, nontender, no hepatosplenomegaly Neurologic: PERRL, EOMI, accommodation nl, no face palsy, no dysarthria Results & Data ([facility] [place]) Vital Signs (Past 12 Hours) Vital Signs Temp Pulse Pulse Resp BP BP Pulse Ox 03/17/22 10:59 36.7 C 104 H 17 141/84 H 96 03/17/22 08:00 102 H 03/17/22 07:18 36.6 C 107 H 17 121/87 97 03/17/22 06:56 98 H 18 98 03/17/22 05:31 88 97/73 L 03/17/22 03:18 36.6 C 98 H 20 97/73 L 97 03/17/22 02:17 94 H 22 97 03/17/22 00:11 96 H 112/78 03/16/22 23:46 96 H 03/16/22 23:10 37.1 C 95 H 16 112/78 95 03/16/22 23:08 96 H 17 95
[2022-03-17] MEDS ORDERED: POTASSIUM PHOSPHATE 9 MMOL in SODIUM CHLORIDE 0.9% 250 ML IV ONE (11:30)
[2022-03-17] MEDS: MoRPHine SULFATE 2 MG/ML CARP IV PRN ×2 (11:44→22:36)
[2022-03-17] MEDS ORDERED: NovoLIN-R INSULIN PER UNIT CHARGE SQ SCH ×2 (12:00)
[2022-03-17] MEDS: LEVALBUTEROL HCL 1.25 MG/3 ML NEB NEB PRN (12:56)
[2022-03-17] MEDS: ACETAMINOPHEN 325 MG TAB PO PRN (20:03)
--- NOTE | 2022-03-17 20:38 | Hospitalist Progress Note ---
Date of Service March 17, 2022 Assessment & Plan (1) Acute respiratory distress: Plan: Acute hypercarbic respiratory failure COPD exacerbation Influenza A CXR showed Ill-defined nodule versus airspace disease of the left upper lobe. Repeat CXR showed Interval improvement in left lung airspace opacities. - Patient has tenuous respiratory status and unable to wean off BIPAP. Had increasing work of breathing with ABG showing severe hypercapnia and acidosis and transferred to ICU for closer monitoring and possible need for intubation. -S/P mechanical vent support, then extuabetd on 03/15 -Propofol and Precedex drips discontinued - Continue IV doxycycline. IV cefepime changed to Zosyn - Continue IV steroids, nebs treatment - CXR shows mildly increased interstitial markings - Repeat cxr showed no change in subtle reticulonodular interstitial thickening within the left lung. This could reflect an infectious process. - Continue monitor closely in the ICU - Speech on board- started on full liquid diet -PT/OT eval Elevated troponin possible demand ischemia from respiratory distress. Trop slightly increased to 0.041 IV heparin drip was discontinued Cardiology on board Metoprolol changed to IV since pt is NPO Continue aspirin Dysphagia Speech on board Starting on Full liquid diet, will advance Aspiration precaution Systolic heart failure BNP on admission 682 ECHO showed dilated left ventricle with severe global hypokinesis and estimated left ventricular ejection fraction of around 20 to 25%.Thickening of the pericardium and a small pericardial effusion consistent with chronic pericarditis. Dobutamine drip discontinued Cardiology on board Hypotension Levophed discontinued BP stable Resolved Anxiety IV Precedex drip discontinued Continue gabapentin CAD s/p stenting Continue aspirin, betablocker GERD- On PPI Hypothyroidism Continue synthroid DVT prophylaxis- Heparin subq Disposition Continue monitor in PCU Admission and Anticipated Discharge Date Admission Date: March 10, 2022 Subjective Pt was seen and examined for follow up of respiratory failure Lying in bed with no acute distress Pt said that her breathing is better She said that she is on 2 LNC oxygen at home Denies any chest pain, palpitation, dizziness and SOB Review of Systems Review of Systems: All systems reviewed & are unremarkable except as noted in Subjective Physical Exam Physical Exam: General- Vent support on sedation Head- atraumatic Eyes- PERRL, EOMI, ENT- No trachea deviation, tongue midline Neck- supple, no JVD Lungs- Diminished BS Heart- regular rhythm; no murmur Abdomen- normal bowel sounds, soft, nontender Extremities- no calf tenderness Neuro- AA0x3, move all 4 extremities, EOMI Skin- warm & dry Results & Data Results & Data ([facility]) Vital Signs (Past 12 Hours) Vital Signs Temp Pulse Pulse Resp BP BP Pulse Ox 03/17/22 19:15 96 H 18 98 03/17/22 19:08 36.9 C 98 H 18 140/85 97 03/17/22 17:41 101 H 123/74 03/17/22 16:00 90 03/17/22 15:09 36.9 C 93 H 18 127/73 97 03/17/22 12:58 94 H 20 98 03/17/22 11:39 101 H 141/84 H 03/17/22 10:59 36.7 C 104 H 17 141/84 H 96
[2022-03-17] MEDS ORDERED: DOXYCYCLINE HYCLATE 100 MG CAP PO STA (22:25)
[2022-03-18] MEDS: METOPROLOL TARTRATE 1 MG/ML VIAL IV SCH ×3 (00:27→17:25)
[2022-03-18] MEDS: PIPERACILLIN/TAZOBACTAM 3.375 GM in DEXTROSE 5% 100 ML IV SCH ×2 (00:36→17:25)
[2022-03-18] MEDS: oxyCODONE HCL IR 5 MG TAB (IMMEDIATE RELEASE) PO PRN ×3 (01:05→20:42)
[2022-03-18] MEDS: LEVOTHYROXINE SODIUM 75 MCG TABLET PO SCH (05:46)
[2022-03-18 06:39] LABS: Hematocrit (blood only) 35.5 % (37-47); Hemoglobin 11.9 g/dL (12.0-16.0); Mean Corpuscular Hemoglobin 31.1 pg (25-34); Mean Corpuscular Hgb Conc 33.5 g/dL (32-36); Mean Corpuscular Volume 92.7 fL (80-100); Mean Platelet Volume 9.9 fL (7.4-10.4); Platelet Count 302 K/uL (130-400); RDW Coefficient of Variation 13.9 % (11.5-14.5); RDW Standard Deviation 47.5 fL (36.4-46.3); Red Blood Count 3.83 M/uL (4.2-5.4); White Blood Count 12.24 K/uL (4.8-10.8)
[2022-03-18] MEDS: LORazepam 0.5 MG TAB PO SCH ×3 (06:49→20:43)
[2022-03-18] MEDS: LEVALBUTEROL HCL 1.25 MG/3 ML NEB NEB PRN (07:04)
[2022-03-18 07:05] LABS: BUN Creatinine Ratio 21.3 (10-20); Calcium 8.1 mg/dl (8.5-10.1); Creatinine Clr Calc Pharmacy 65.3 ml/min; Est GFR (African American) 83.4 ml/min; Est GFR (Non-African American) 71.9 ml/min; Phosphorus 2.8 mg/dl (2.5-4.9); Potassium 3.4 mmol/L (3.5-5.1)
[2022-03-18] MEDS: IPRATROPIUM BROMIDE NEB SOLN 0.02% 2.5 ML VIAL INH SCH (07:05)
[2022-03-18] MEDS: LEVALBUTEROL 1.25MG/0.5ML NEB INH SCH (07:05)
[2022-03-18] MEDS: INSULIN ASPART PER UNIT SC SCH ×4 (08:18→20:46)
[2022-03-18] MEDS ORDERED: POTASSIUM CHLORIDE 10 MEQ TABCR PO STA (08:38)
--- NOTE | 2022-03-18 09:20 | Electrocardiogram Report ---
Test Reason : Blood Pressure : / mmHG Vent. Rate : 109 BPM Atrial Rate : 109 BPM P-R Int : 116 ms QRS Dur : 090 ms QT Int : 360 ms P-R-T Axes : 084 089 097 degrees QTc Int : 484 ms Poor data quality, interpretation may be adversely affected Sinus tachycardia with frequent , and consecutive Premature ventricular complexes Right atrial enlargement T wave abnormality, consider anterior ischemia Abnormal ECG When compared with ECG of 17-MAR-2022 13:56, (unconfirmed) Premature ventricular complexes are now Present Nonspecific T wave abnormality has replaced inverted T waves in Lateral leads Confirmed by Berlin Rod ([id number]) on 03/18/2022 9:20:40 AM Referred By: REFERRED SELF Confirmed By:Berlin Rod
--- NOTE | 2022-03-18 09:20 | Electrocardiogram Report ---
Test Reason : Blood Pressure : / mmHG Vent. Rate : 098 BPM Atrial Rate : 098 BPM P-R Int : 122 ms QRS Dur : 090 ms QT Int : 340 ms P-R-T Axes : 082 089 097 degrees QTc Int : 434 ms Normal sinus rhythm Right atrial enlargement Abnormal ECG When compared with ECG of 16-MAR-2022 05:16, Premature ventricular complexes are no longer Present Confirmed by Berlin Rod ([id number]) on 03/18/2022 9:20:28 AM Referred By: REFERRED SELF Confirmed By:Berlin Rod
[2022-03-18] MEDS: CHOLECALCIFEROL 1,000 UNITS 25 MCG TAB PO SCH (09:30)
[2022-03-18] MEDS: ASPIRIN 81 MG CHEW NG SCH (09:30)
[2022-03-18] MEDS: DOXYCYCLINE HYCLATE 100 MG CAP PO SCH ×2 (09:31→21:37)
[2022-03-18] MEDS: DOCUSATE SODIUM SYRUP 100 MG/10 ML UDC PO SCH ×2 (09:32→21:37)
[2022-03-18] MEDS: FOLIC ACID 1 MG TAB PO SCH (09:33)
[2022-03-18] MEDS: GABAPENTIN 100 MG CAP PO SCH ×3 (09:33→20:43)
[2022-03-18] MEDS: SENNOSIDES 8.8 MG/5 ML UDC PO SCH ×2 (09:40→21:36)
[2022-03-18] MEDS: FLUTICASONE/VILANTEROL 100/25MCG 14 PUFFS/INHALER INH SCH (09:42)
[2022-03-18] MEDS: UMECLIDINIUM BROMIDE 62.5MCG/BLISTER 7 PUFFS/INHALER INH SCH (09:43)
[2022-03-18] MEDS: predniSONE 20 MG TAB PO SCH (09:43)
[2022-03-18] MEDS: LANSOPRAZOLE 30 MG SOLTAB NG SCH (09:44)
[2022-03-18] MEDS: HEPARIN SOD 5,000 UNIT/0.5 ML VIAL SC SCH ×2 (09:50→21:36)
--- NOTE | 2022-03-18 10:45 | Pharmacy Report ---
Pharmacy Glycemic Short Note 2 - Date of Service March 18, 2022 - Glycemic Short BSG Results (Last 24 hours): 03/17/22 03/17/22 03/17/22 11:23 16:07 20:31 Glucose POC Glucose 176 H 83 108 H 03/18/22 03/18/22 06:07 07:19 Glucose 102 H POC Glucose 101 H OUTPATIENT ANTIDIABETIC REGIMEN: * None * HbA1c = 5.6% (03/14/22) ASSESSMENT: 03/18: * Full liquid diet ordered - pt tolerating but poor appetite to start * Did not receive Prednisone on 03/16 or 03/17 due to NPO status. Did take Prednisone 40 mg this AM. * Received 3 units of correctional insulin yesterday - BSG trended down sharply after 3 units. * Was going to loosen parameters but will hold off given first dose of Prednisone this AM. 03/17: * Stressors stable - remains NPO on prednisone 40 mg daily * A total of 2 units of correctional insulin was required yesterday * Will extend interval from q4h to q6h and utilize regular insulin for now (in the event that tubefeeds are restarted) * Will loosen Novolog parameters as BSG's have been well controlled on minimal/no insulin and current parameters are quite tight 03/16: * BSGs yesterday were 249-287 (received IV 10 unit bolus)-185-229-390-105-125 mg/dL. Today's BSGs are 144-171-127 mg/dL. * Patient transitioned from Solu-Medrol 40 mg IV BID (received 1 dose on 03/15/22) to prednisone 40 mg daily today. * Patient extubated yesterday. Tube feedings stopped yesterday and patient subs equently NPO. * Patient is not diabetic at home so attempting to not use basal insulin. Patient does correct appropriate. Will continue with tight correction factor to prevent hypoglycemia from basal insulin. Background * 56 yo F admitted on 03/10/22 secondary to acute exacerbation of COPD. Acute respiratory failure progressed throughout stay, and patient was intubated on 03/12/22. Peptamen 1.5 tube feeds started on 03/12/22 as well. Patient was also on IV methylprednisolone at the time for COPD. * Combination of steroid-induced hyperglycemia, increased stressors and addition of tube feeds lead to ICU hyperglycemia protocol being met. * Remains intubated today. TF at 40 cc/hr. Solumedrol weaned from TID to BID. * Will start Novolog based on weight/stress of three with accuchecks q4h to [facility] basal insulin. Targeting lower goal range of 110-140 mg/dL. PLAN FOR INPATIENT GLYCEMIC CONTROL: * Basal insulin * None * Bolus insulin * REGULAR INSULIN per scale Q6hrs while NPO * Goal Range: Low 110 mg/dL - High 140 mg/dL * Correction Factor: 30 mg/dL/unit * Nutritional / Prandial insulin per carb ratio of 1 unit per 10 grams CHO consumed DISCHARGE RECOMMENDATIONS: * Patient is not diabetic. Will not require any diabetic medications upon discharge regardless of steroid use.
[2022-03-18] MEDS: ONDANSETRON INJ 2 MG/ML 2 ML VIAL IV PRN ×3 (11:04→23:20)
[2022-03-18] MEDS: AMOXICILLIN/CLAVULANATE 875 MG TAB PO SCH ×2 (11:04→21:36)
--- NOTE | 2022-03-18 14:47 | Cardiology Progress Note ---
Date of Service March 18, 2022 Assessment & Plan (1) Acute respiratory failure with hypoxia: (2) Acute systolic heart failure: (3) Influenza A: Plan: 56-year-old female with history of COPD, significant left lung disease that she had been referred for consideration of lung transplantation in the past (felt to not be a good candidate). Presented with progressive respiratory insufficiency, influenza A, ultimately requiring ventilator support. Has previous history of mild left ventricular systolic dysfunction, nonischemic past stress testing, and acute LV systolic dysfunction this admission with a somewhat mild and flat elevation in her HS troponin. Question if echo is sales representative printing of an acute decline in LV systolic function due to stress-induced cardiomyopathy. Volume status appears stable. Swallowing pills without difficulty , transition back to oral metoprolol succinate. Consider adding Entresto tomorrow. SQ heparin for DVT prophylaxis. Admission and Anticipated Discharge Date Admission Date: March 10, 2022 Subjective Pt seen in cardiology follow up. She is less energetic today and states she feels her breathing is more labored. Pule ox =97% on Oxymask, unchanged. Telemetry reveals sinus tachycardia 100-108 bpm. Physical Exam Constitutional: + ill appearing; no acute distress Cardiovascular: RRR, no murmur, no edema Gastrointestinal (Abdomen): normal bowel sounds, soft, nontender, no hepatosplenomegaly Neurologic: PERRL, EOMI, accommodation nl, no face palsy, no dysarthria Results & Data ([facility]) Vital Signs (Past 12 Hours) Vital Signs Temp Pulse Pulse Resp BP BP Pulse Ox 03/18/22 11:08 36.7 C 97 H 17 149/97 H 97 03/18/22 08:52 94 H 03/18/22 07:20 37.0 C 107 H 18 143/84 H 97 03/18/22 07:05 94 H 20 96 03/18/22 05:46 84 112/71 03/18/22 04:23 84 21 95 03/18/22 03:57 36.7 C 83 18 112/71 96
[2022-03-18] MEDS: METOPROLOL SUCC 25MG EXT REL TAB PO SCH (15:12)
--- NOTE | 2022-03-18 21:04 | Hospitalist Progress Note ---
Date of Service March 18, 2022 Assessment & Plan (1) Acute respiratory distress: Plan: Acute hypercarbic respiratory failure COPD exacerbation Influenza A CXR showed Ill-defined nodule versus airspace disease of the left upper lobe. Repeat CXR showed Interval improvement in left lung airspace opacities. - Patient has tenuous respiratory status and unable to wean off BIPAP. Had increasing work of breathing with ABG showing severe hypercapnia and acidosis and transferred to ICU for closer monitoring and possible need for intubation. -S/P mechanical vent support, then extuabetd on 03/15 -Propofol and Precedex drips discontinued - Continue IV doxycycline. IV cefepime changed to Zosyn - Continue IV steroids, nebs treatment - CXR shows mildly increased interstitial markings - Repeat cxr showed no change in subtle reticulonodular interstitial thickening within the left lung. This could reflect an infectious process. - Will d/c IV Zosyn then transition to augmentin - Will complete Doxycycline course tomorrow - Speech on board- Diet advanced to low fiber -Continue PT/OT eval - might require inpatient rehab Elevated troponin possible demand ischemia from respiratory distress. Trop slightly increased to 0.041 IV heparin drip was discontinued Cardiology on board Metoprolol changed to IV since pt is NPO Continue aspirin Dysphagia Speech on board Starting on Full liquid diet, will advance Aspiration precaution Systolic heart failure BNP on admission 682 ECHO showed dilated left ventricle with severe global hypokinesis and estimated left ventricular ejection fraction of around 20 to 25%.Thickening of the pericardium and a small pericardial effusion consistent with chronic pericarditis. Dobutamine drip discontinued Cardiology on board Plan to start on entresto in am Hypotension Levophed discontinued BP stable Resolved Anxiety IV Precedex drip discontinued Continue gabapentin /Lorazepam CAD s/p stenting Continue aspirin, betablocker GERD- On PPI Hypothyroidism Continue synthroid DVT prophylaxis- Heparin subq Disposition Continue monitor in PCU Admission and Anticipated Discharge Date Admission Date: March 10, 2022 Subjective Pt was seen and examined for follow up of respiratory failure Lying in bed with no acute distress Patient said she felt dizzy this morning when walking with therapy Denies any chest pain, palpitation, dizziness and SOB Review of Systems Review of Systems: All systems reviewed & are unremarkable except as noted in Subjective Physical Exam Physical Exam: General- Vent support on sedation Head- atraumatic Eyes- PERRL, EOMI, ENT- No trachea deviation, tongue midline Neck- supple, no JVD Lungs- Diminished BS Heart- regular rhythm; no murmur Abdomen- normal bowel sounds, soft, nontender Extremities- no calf tenderness Neuro- AA0x3, move all 4 extremities, EOMI Skin- warm & dry Results & Data Results & Data ([facility]) Vital Signs (Past 12 Hours) Vital Signs Temp Pulse Resp BP Pulse Ox 03/18/22 19:35 36.9 C 108 H 20 147/92 H 96 03/18/22 15:43 36.9 C 96 H 19 141/84 H 100 03/18/22 11:08 36.7 C 97 H 17 149/97 H 97
[2022-03-18] MEDS: MoRPHine SULFATE 2 MG/ML CARP IV PRN (22:38)
[2022-03-19] MEDS: oxyCODONE HCL IR 5 MG TAB (IMMEDIATE RELEASE) PO PRN ×4 (01:31→20:51)
[2022-03-19] MEDS: LEVOTHYROXINE SODIUM 75 MCG TABLET PO SCH (06:44)
[2022-03-19 08:06] LABS: BUN Creatinine Ratio 23.5 (10-20); Creatinine Clr Calc Pharmacy 68.4 ml/min; Est GFR (African American) 88.2 ml/min; Est GFR (Non-African American) 76.1 ml/min; Magnesium 2.1 mg/dl (1.7-2.4); Phosphorus 2.7 mg/dl (2.5-4.9)
[2022-03-19] MEDS: INSULIN ASPART PER UNIT SC SCH ×4 (08:10→21:58)
[2022-03-19] MEDS: LORazepam 0.5 MG TAB PO PRN ×3 (08:16→20:51)
[2022-03-19 08:19] LABS: Hematocrit (blood only) 39.4 % (37-47); Hemoglobin 13.3 g/dL (12.0-16.0); Mean Corpuscular Hemoglobin 30.6 pg (25-34); Mean Corpuscular Hgb Conc 33.8 g/dL (32-36); Mean Corpuscular Volume 90.8 fL (80-100); Platelet Count 421 K/uL (130-400); RDW Coefficient of Variation 13.7 % (11.5-14.5); RDW Standard Deviation 45.3 fL (36.4-46.3); Red Blood Count 4.34 M/uL (4.2-5.4); White Blood Count 18.43 K/uL (4.8-10.8)
[2022-03-19] MEDS: CHOLECALCIFEROL 1,000 UNITS 25 MCG TAB PO SCH (08:19)
[2022-03-19] MEDS: AMOXICILLIN/CLAVULANATE 875 MG TAB PO SCH ×2 (08:19→17:09)
[2022-03-19] MEDS: ASPIRIN 81 MG CHEW NG SCH (08:19)
[2022-03-19] MEDS: DOCUSATE SODIUM SYRUP 100 MG/10 ML UDC PO SCH ×2 (08:19→21:59)
[2022-03-19] MEDS: FLUTICASONE/VILANTEROL 100/25MCG 14 PUFFS/INHALER INH SCH (08:21)
[2022-03-19] MEDS: UMECLIDINIUM BROMIDE 62.5MCG/BLISTER 7 PUFFS/INHALER INH SCH (08:21)
[2022-03-19] MEDS: HEPARIN SOD 5,000 UNIT/0.5 ML VIAL SC SCH ×2 (08:22→20:50)
[2022-03-19] MEDS: GABAPENTIN 100 MG CAP PO SCH ×3 (08:22→20:51)
[2022-03-19] MEDS: METOPROLOL SUCC 25MG EXT REL TAB PO SCH (08:22)
[2022-03-19] MEDS: FOLIC ACID 1 MG TAB PO SCH (08:22)
[2022-03-19] MEDS: LANSOPRAZOLE 30 MG SOLTAB NG SCH (08:22)
[2022-03-19] MEDS: predniSONE 20 MG TAB PO SCH (08:23)
[2022-03-19] MEDS: SENNOSIDES 8.8 MG/5 ML UDC PO SCH ×2 (08:23→20:50)
--- NOTE | 2022-03-19 08:40 | Pharmacy Report ---
Pharmacy Glycemic Sign Off Nt - Date of Service March 19, 2022 - Assessment & Plan ASSESSMENT: * Pharmacy was consulted by Gallo Santiago PA-C, on 03/14/22 for glycemic control and to write orders per [facility] inpatient glycemic control protocol. * Patient is not a diabetic and has only required small amounts of correctional insulin given steroid use * Patient has been receiving/requiring 2-3 units of Novolog per day for adequate glycemic control * BSGs ranging 101-144 mg/dl * Patient remains on Prednisone 40 mg PO daily which will be tapered per provider. Appetite is still poor and may improve over the next 24-48 hours. However, do not expect BSGs to be elevated enough to warrant basal insulin. * Patient will not require any anti-diabetic medications upon discharge. PLAN FOR INPATIENT GLYCEMIC CONTROL: No changes needed to current regimen. * No basal insulin required * Continue NovoLog per scale ACHS/Q6hrs while NPO * Goal range = 110-140 mg/dl * CF = 45 mg/dl/unit * CR = 1 unit for ever 15 g CHO consumed * Pharmacy is signing off of glycemic consult and will no longer be making adjustments to inpatient regimen. Please feel free to re-consult if needed. Thank you.
[2022-03-19] MEDS: DOXYCYCLINE HYCLATE 100 MG CAP PO SCH ×2 (10:50→20:51)
[2022-03-19] MEDS: COLCHICINE 0.6 MG TAB PO SCH ×2 (11:35→20:51)
[2022-03-19] MEDS ORDERED: tiZANidine HCL 4 MG TABLET PO ONE (11:45)
--- NOTE | 2022-03-19 12:58 | Cardiology Progress Note ---
Date of Service March 19, 2022 Assessment & Plan (1) Acute respiratory failure with hypoxia: (2) Acute systolic heart failure: (3) Influenza A: Plan: 56-year-old female with history of COPD, significant left lung disease that she had been referred for consideration of lung transplantation in the past (felt to not be a good candidate). Presented with progressive respiratory insufficiency, influenza A, ultimately requiring ventilator support. Has previous history of mild left ventricular systolic dysfunction, nonischemic past stress testing, and acute LV systolic dysfunction this admission with a somewhat mild and flat elevation in her HS troponin. Question if echo is bank representative of an acute decline in LV systolic function due to stress-induced cardiomyopathy. Volume status appears stable. Repeat echo 03/19/22 reveals interval subtle improvement in the LVEF from 25% on 03/11/22 to 35-40%. The pericardial effusion however is a little bigger , moderate, no tamponade. Add Entresto to metoprolol. Add Colchicine to prednisone. OOBed to chair as tolerated. SQ heparin for DVT prophylaxis. Admission and Anticipated Discharge Date Admission Date: March 10, 2022 Subjective Pt seen in follow up. Resting comfortably in bed. Remains on oxymask 2L/m , pulse ox 96% Telemetry reveals SR in the 90s. Physical Exam Constitutional: + ill appearing; no acute distress Cardiovascular: RRR, no murmur, no edema Gastrointestinal (Abdomen): normal bowel sounds, soft, nontender, no hepatosplenomegaly Neurologic: PERRL, EOMI, accommodation nl, no face palsy, no dysarthria Results & Data ([facility]) Vital Signs (Past 12 Hours) Vital Signs Temp Pulse Pulse Resp BP Pulse Ox 03/19/22 11:12 36.9 C 89 18 148/85 H 96 03/19/22 07:49 90 03/19/22 06:57 36.6 C 112 H 18 166/97 H 96 03/19/22 03:49 37.0 C 81 18 127/84 95
[2022-03-19] MEDS: VALSARTAN/SACUBITRIL 26/24MG TAB PO SCH ×2 (13:35→20:49)
[2022-03-19] MEDS: ONDANSETRON INJ 2 MG/ML 2 ML VIAL IV PRN (16:05)
--- NOTE | 2022-03-19 16:42 | Hospitalist Progress Note ---
Date of Service March 19, 2022 Assessment & Plan (1) Acute respiratory distress: Plan: Acute hypercarbic respiratory failure COPD exacerbation Influenza A CXR showed Ill-defined nodule versus airspace disease of the left upper lobe. Repeat CXR showed Interval improvement in left lung airspace opacities. - Patient has tenuous respiratory status and unable to wean off BIPAP. Had increasing work of breathing with ABG showing severe hypercapnia and acidosis and transferred to ICU for closer monitoring and possible need for intubation. -S/P mechanical vent support, then extuabetd on 03/15 -Propofol and Precedex drips discontinued - Continue IV doxycycline. IV cefepime changed to Zosyn - Currently on PO prednisone, will taper prednisone - CXR shows mildly increased interstitial markings - Repeat cxr showed no change in subtle reticulonodular interstitial thickening within the left lung. This could reflect an infectious process. - IV Zosyn discontinued then transition to Augmentin - Will Complete Doxycycline course today - Speech on board- Diet advanced to low fiber - Continue PT/OT eval - Consider inpatient rehab Elevated troponin Stress induce d cardiomyopathy Trop slightly increased to 0.041 IV heparin drip was discontinued Cardiology on board Metoprolol changed to IV since pt is NPO Repeat ECHO showed Moderate diffuse Left ventricular Hypokinesis with EF 35-39% Continue aspirin and metoprolol Pericardial effusion ECHO showed moderate sized, loculated anterior and right lateral pericardial effusion Starting on Colchicine and prednisone Continue monitor Dysphagia Speech on board Starting on Full liquid diet, will advance Aspiration precaution Systolic heart failure BNP on admission 682 ECHO showed dilated left ventricle with severe global hypokinesis and estimated left ventricular ejection fraction of around 20 to 25%.Thickening of the pericardium and a small pericardial effusion consistent with chronic pericarditis. Repeat ECHO showed Moderate diffuse Left ventricular Hypokinesis with EF 35-39% Cardiology on board Starting on Entresto by cardiology Will monitor BMP Hypotension Levophed discontinued BP stable Resolved Anxiety IV Precedex drip discontinued Continue gabapentin /Lorazepam CAD s/p stenting Continue aspirin, metoprolol GERD- On PPI Hypothyroidism Continue Synthroid DVT prophylaxis- Heparin subq Disposition Continue monitor in PCU Admission and Anticipated Discharge Date Admission Date: March 10, 2022 Subjective Pt was seen and examined for follow up of respiratory failure Lying in bed with no acute distress She said that she is having alot of pain in her left arm that is chronic She did not want to participate in therapy this morning Denies any chest pain, palpitation, dizziness and SOB Review of Systems Review of Systems: All systems reviewed & are unremarkable except as noted in Subjective Physical Exam Physical Exam: General- Vent support on sedation Head- atraumatic Eyes- PERRL, EOMI, ENT- No trachea deviation, tongue midline Neck- supple, no JVD Lungs- Diminished BS Heart- regular rhythm; no murmur Abdomen- normal bowel sounds, soft, nontender Extremities- no calf tenderness, +left arm release Neuro- AA0x3, move all 4 extremities, EOMI Skin- warm & dry Results & Data Results & Data ([facility]) Vital Signs (Past 12 Hours) Vital Signs Temp Pulse Pulse Resp BP Pulse Ox 03/19/22 15:19 36.6 C 87 18 116/83 97 03/19/22 11:12 36.9 C 89 18 148/85 H 96 03/19/22 07:49 90 03/19/22 06:57 36.6 C 112 H 18 166/97 H 96
[2022-03-19] MEDS: tiZANidine HCL 4 MG TABLET PO SCH (20:49)
[2022-03-20] MEDS: ONDANSETRON INJ 2 MG/ML 2 ML VIAL IV PRN ×3 (02:50→22:12)
[2022-03-20] MEDS: oxyCODONE HCL IR 5 MG TAB (IMMEDIATE RELEASE) PO PRN ×3 (02:50→20:11)
[2022-03-20] MEDS: LORazepam 0.5 MG TAB PO PRN ×3 (02:50→20:21)
[2022-03-20] MEDS: INSULIN ASPART PER UNIT SC SCH ×4 (07:50→20:21)
[2022-03-20 08:49] LABS: BUN Creatinine Ratio 26.9 (10-20); Calcium 8.6 mg/dl (8.5-10.1); Est GFR (African American) 97.8 ml/min; Est GFR (Non-African American) 84.4 ml/min; Magnesium 1.9 mg/dl (1.7-2.4); Phosphorus 3.2 mg/dl (2.5-4.9); Potassium 3.8 mmol/L (3.5-5.1)
[2022-03-20] MEDS: FLUTICASONE/VILANTEROL 100/25MCG 14 PUFFS/INHALER INH SCH (08:55)
[2022-03-20] MEDS: COLCHICINE 0.6 MG TAB PO SCH ×2 (08:55→20:13)
[2022-03-20] MEDS: CHOLECALCIFEROL 1,000 UNITS 25 MCG TAB PO SCH (08:55)
[2022-03-20] MEDS: DOCUSATE SODIUM SYRUP 100 MG/10 ML UDC PO SCH ×2 (08:56→20:14)
[2022-03-20] MEDS: FOLIC ACID 1 MG TAB PO SCH (08:56)
[2022-03-20] MEDS: GABAPENTIN 100 MG CAP PO SCH ×3 (08:56→20:13)
[2022-03-20] MEDS: METOPROLOL SUCC 25MG EXT REL TAB PO SCH (08:58)
[2022-03-20] MEDS: LANSOPRAZOLE 30 MG SOLTAB NG SCH (08:58)
[2022-03-20] MEDS: SENNOSIDES 8.8 MG/5 ML UDC PO SCH ×2 (08:58→20:14)
[2022-03-20] MEDS: predniSONE 20 MG TAB PO SCH (08:58)
[2022-03-20] MEDS: tiZANidine HCL 4 MG TABLET PO SCH ×2 (08:59→20:12)
[2022-03-20] MEDS: UMECLIDINIUM BROMIDE 62.5MCG/BLISTER 7 PUFFS/INHALER INH SCH (08:59)
[2022-03-20] MEDS: VALSARTAN/SACUBITRIL 26/24MG TAB PO SCH ×2 (09:00→20:13)
[2022-03-20] MEDS: LEVOTHYROXINE SODIUM 75 MCG TABLET PO SCH (09:02)
[2022-03-20] MEDS: ASPIRIN 81 MG CHEW NG SCH (09:03)
[2022-03-20] MEDS: AMOXICILLIN/CLAVULANATE 875 MG TAB PO SCH ×2 (09:03→17:32)
[2022-03-20] MEDS: HEPARIN SOD 5,000 UNIT/0.5 ML VIAL SC SCH ×2 (09:04→20:11)
[2022-03-20 09:09] LABS: Thyroid Stimulating Hormone 8.775 uIu/ml (0.300-4.500)
[2022-03-20 09:46] LABS: T4 Free Thyroxine 1.04 ng/dl (0.61-1.60)
--- NOTE | 2022-03-20 10:33 | Hospitalist Progress Note ---
Date of Service March 20, 2022 Assessment & Plan (1) Acute respiratory distress: Plan: Acute hypercarbic respiratory failure COPD exacerbation Influenza A CXR showed Ill-defined nodule versus airspace disease of the left upper lobe. Repeat CXR showed Interval improvement in left lung airspace opacities. - Patient has tenuous respiratory status and unable to wean off BIPAP. Had increasing work of breathing with ABG showing severe hypercapnia and acidosis and transferred to ICU for closer monitoring and possible need for intubation. -S/P mechanical vent support, then extuabetd on 03/15 -Propofol and Precedex drips discontinued - Continue IV doxycycline. IV cefepime changed to Zosyn - Currently on PO prednisone, Continue taper prednisone - CXR shows mildly increased interstitial markings - Repeat cxr showed no change in subtle reticulonodular interstitial thickening within the left lung. This could reflect an infectious process. - IV Zosyn discontinued then transition to Augmentin - Continue Augmentin for now - Completed Doxycycline course - Speech on board- Diet advanced to low fiber - Continue PT/OT eval - Consider inpatient rehab Elevated troponin Stress induce d cardiomyopathy Trop slightly increased to 0.041 IV heparin drip was discontinued Cardiology on board Metoprolol changed to IV since pt is NPO Repeat ECHO showed Moderate diffuse Left ventricular Hypokinesis with EF 35-39% Continue aspirin and metoprolol Pericardial effusion ECHO showed moderate sized, loculated anterior and right lateral pericardial effusion Continue Colchicine and prednisone 20mg daily Continue monitor Dysphagia Speech on board Tolerated low fiber diet Aspiration precaution Systolic heart failure BNP on admission 682 ECHO showed dilated left ventricle with severe global hypokinesis and estimated left ventricular ejection fraction of around 20 to 25%.Thickening of the pericardium and a small pericardial effusion consistent with chronic pericarditis. Repeat ECHO showed Moderate diffuse Left ventricular Hypokinesis with EF 35-39% Cardiology on board Continue Entresto starting yesterday by cardiology Continue monitor BMP Hypotension Levophed discontinued BP stable Resolved Anxiety IV Precedex drip discontinued while in the ICU Continue gabapentin /Lorazepam CAD s/p stenting Continue aspirin, metoprolol GERD- On PPI Hypothyroidism Continue Synthroid DVT prophylaxis- Heparin subq Disposition Continue monitor in PCU Admission and Anticipated Discharge Date Admission Date: March 10, 2022 Subjective Pt was seen and examined for follow up of respiratory failure Lying in bed with no acute distress watching TV She said that she was able to wash herself She feels a lot better today She said her left arm pain improves significantly Denies any chest pain, palpitation, dizziness and SOB Review of Systems Review of Systems: All systems reviewed & are unremarkable except as noted in Subjective Physical Exam Physical Exam: General- Vent support on sedation Head- atraumatic Eyes- PERRL, EOMI, ENT- No trachea deviation, tongue midline Neck- supple, no JVD Lungs- Diminished BS Heart- regular rhythm; no murmur Abdomen- normal bowel sounds, soft, nontender Extremities- no calf tenderness, +left arm release Neuro- AA0x3, move all 4 extremities, EOMI Skin- warm & dry Results & Data Results & Data ([facility]) Vital Signs (Past 12 Hours) Vital Signs Temp Pulse Resp BP Pulse Ox 03/20/22 03:00 36.8 C 83 20 120/70 98 03/19/22 23:11 36.5 C 71 16 92/66 L 100
--- NOTE | 2022-03-20 10:55 | Cardiology Progress Note ---
Date of Service March 20, 2022 Assessment & Plan (1) Acute respiratory failure with hypoxia: (2) Left ventricular systolic dysfunction: (3) Pericardial effusion: (4) Influenza A: Plan: 56-year-old female with history of COPD, significant left lung disease that she had been referred for consideration of lung transplantation in the past (felt to not be a good candidate). Presented with progressive respiratory insufficiency, influenza A, ultimately requiring ventilator support. Has previous history of mild left ventricular systolic dysfunction, nonischemic past stress testing, and acute LV systolic dysfunction this admission with a somewhat mild and flat elevation in her HS troponin. Question if echo is artist's representative of an acute decline in LV systolic function due to stress-induced cardiomyopathy. Repeat echo 03/19/22 reveals interval subtle improvement in the LVEF from 25% on 03/11/22 to 35-40%. The pericardial effusion however is a little bigger , moderate sized , no tamponade. Pt appears normovolemic. Oxygen requirement improving. Continue aspirin, metoprolol, Entresto (added 03/19/22), Prednisone, colchicine. -Consider removing [place]. SQ heparin for DVT prophylaxis. Admission and Anticipated Discharge Date Admission Date: March 10, 2022 Subjective Patient seen in cardiology follow-up. Noted interval improvement. She is in the process of being assisted from the bed to the bedside chair. Telemetry reveals improved rates, sinus rhythm in the range of 80 to 90 bpm, on her prior to hospital dose of oral metoprolol. Physical Exam Constitutional: + thin; no acute distress Respiratory: Auscultation: lungs clear to auscultation bilaterally Cardiovascular: RRR, no murmur, no edema Gastrointestinal (Abdomen): normal bowel sounds, soft, nontender, no hepatosplenomegaly Neurologic: PERRL, EOMI, accommodation nl, no face palsy, no dysarthria Results & Data ([facility]) Vital Signs (Past 12 Hours) Vital Signs Temp Pulse Resp BP Pulse Ox 03/20/22 03:00 36.8 C 83 20 120/70 98 03/19/22 23:11 36.5 C 71 16 92/66 L 100 Laboratory Results Comprehensive Metabolic Panel 03/20/22 Range/Units 07:51 Sodium 138 (136-145) mmol/L Potassium 3.8 (3.5-5.1) mmol/L Chloride 102 (98-107) mmol/L Carbon Dioxide 30 (21-32) mmol/L BUN 21 (6-23) mg/dl Creatinine 0.78 (0.6-1.2) mg/dl Glucose 96 (70-99(Fasting)) mg/dl Calcium 8.6 (8.5-10.1) mg/dl Intake and Output 03/19/22 03/20/22 03/20/22 22:59 06:59 14:59 Output Total 550 / 1050 Balance -550 / -1050 Output: Urine Amount (Catheter) 550 / 1050 [place]/Indwelling 550 / 1050 Other: Weight 58.9 kg Weight Measurement Method Built in [facility]
[2022-03-20] MEDS: MoRPHine SULFATE 2 MG/ML CARP IV PRN (22:12)
[2022-03-21] MEDS: oxyCODONE HCL IR 5 MG TAB (IMMEDIATE RELEASE) PO PRN ×4 (05:09→21:01)
[2022-03-21] MEDS: LEVOTHYROXINE SODIUM 75 MCG TABLET PO SCH (05:09)
[2022-03-21] MEDS: tiZANidine HCL 4 MG TABLET PO SCH ×2 (05:33→21:03)
[2022-03-21] MEDS: ONDANSETRON INJ 2 MG/ML 2 ML VIAL IV PRN ×2 (05:38→17:04)
[2022-03-21 05:59] LABS: Hematocrit (blood only) 41.6 % (37-47); Hemoglobin 13.7 g/dL (12.0-16.0); Mean Corpuscular Hemoglobin 30.9 pg (25-34); Mean Corpuscular Hgb Conc 32.9 g/dL (32-36); Mean Corpuscular Volume 93.9 fL (80-100); Mean Platelet Volume 9.8 fL (7.4-10.4); Platelet Count 391 K/uL (130-400); RDW Standard Deviation 47.4 fL (36.4-46.3); Red Blood Count 4.43 M/uL (4.2-5.4); White Blood Count 14.34 K/uL (4.8-10.8)
[2022-03-21] MEDS ORDERED: LOPERAMIDE HCL 2 MG CAP PO STA (06:00)
[2022-03-21 06:24] LABS: BUN Creatinine Ratio 20.7 (10-20); Calcium 8.7 mg/dl (8.5-10.1); Creatinine Clr Calc Pharmacy 61.5 ml/min; Est GFR (African American) 80.1 ml/min; Est GFR (Non-African American) 69.1 ml/min; Potassium 3.4 mmol/L (3.5-5.1)
[2022-03-21] MEDS: DOCUSATE SODIUM SYRUP 100 MG/10 ML UDC PO SCH ×2 (07:22→21:02)
[2022-03-21] MEDS: SENNOSIDES 8.8 MG/5 ML UDC PO SCH ×2 (07:22→21:03)
[2022-03-21] MEDS: METOPROLOL SUCC 25MG EXT REL TAB PO SCH (07:34)
[2022-03-21] MEDS: COLCHICINE 0.6 MG TAB PO SCH ×2 (07:36→21:10)
[2022-03-21] MEDS: predniSONE 20 MG TAB PO SCH (07:36)
[2022-03-21] MEDS: VALSARTAN/SACUBITRIL 26/24MG TAB PO SCH (07:36)
[2022-03-21] MEDS: FOLIC ACID 1 MG TAB PO SCH (07:36)
[2022-03-21] MEDS: AMOXICILLIN/CLAVULANATE 875 MG TAB PO SCH ×2 (07:36→17:08)
[2022-03-21] MEDS: LANSOPRAZOLE 30 MG SOLTAB NG SCH (07:36)
[2022-03-21] MEDS: HEPARIN SOD 5,000 UNIT/0.5 ML VIAL SC SCH ×2 (07:37→21:10)
[2022-03-21] MEDS: FLUTICASONE/VILANTEROL 100/25MCG 14 PUFFS/INHALER INH SCH (07:37)
[2022-03-21] MEDS: GABAPENTIN 100 MG CAP PO SCH ×3 (07:37→21:03)
[2022-03-21] MEDS: CHOLECALCIFEROL 1,000 UNITS 25 MCG TAB PO SCH (07:38)
[2022-03-21] MEDS: ASPIRIN 81 MG CHEW NG SCH (07:44)
[2022-03-21] MEDS ORDERED: SODIUM CHLORIDE 0.9% 1000ML 1,000 ML IV SCH (07:45)
[2022-03-21] MEDS: INSULIN ASPART PER UNIT SC SCH ×4 (09:18→21:10)
[2022-03-21] MEDS ORDERED: POTASSIUM CHLORIDE CRTAB 20 MEQ TABCR PO STA (09:19)
[2022-03-21] MEDS: UMECLIDINIUM BROMIDE 62.5MCG/BLISTER 7 PUFFS/INHALER INH SCH (09:52)
[2022-03-21] MEDS: LORazepam 0.5 MG TAB PO PRN ×2 (09:58→21:01)
--- NOTE | 2022-03-21 11:03 | Cardiology Progress Note ---
Date of Service March 21, 2022 Assessment & Plan (1) Acute respiratory failure with hypoxia: (2) Left ventricular systolic dysfunction: (3) Pericardial effusion: (4) Influenza A: Plan: 56-year-old female with history of COPD, significant left lung disease that she had been referred for consideration of lung transplantation in the past (felt to not be a good candidate). Presented with progressive respiratory insufficiency, influenza A, ultimately requiring ventilator support. Has previous history of mild left ventricular systolic dysfunction, nonischemic past stress testing, and acute LV systolic dysfunction this admission with a somewhat mild and flat elevation in her HS troponin. Question if echo is billing customer service representative of an acute decline in LV systolic function due to stress-induced cardiomyopathy. Per my discussion with patient, she describes symptoms that prompted her presentation as feeling like she "had the flu". Intubated of 03/12/22, and weaned on 02/2322. Oxygen requirements improved. Patient describes history of complex regional pain syndrome with resultant left arm pain and her most significant concern is getting back on her home pain regimen. Repeat echo 03/19/22 reveals interval subtle improvement in the LVEF from 25% on 03/11/22 to 35-40%. The pericardial effusion however is a little bigger , moderate sized , no tamponade. Continue aspirin, metoprolol, Prednisone, colchicine. Entresto (added 03/19/22), will hold today, 03/21, as pt state systolic BP in the 90s is usual for her at time. This may explain why she is not on ACEI / or ARB as outpatient. Recommend as short a course possible of IV fluids. SQ heparin for DVT prophylaxis. Admission and Anticipated Discharge Date Admission Date: March 10, 2022 Subjective Pt seen in cardiology follow up. Sinus rhythm in the 90s noted. Pt describes having had loose stool, SBP now 90s, and to my surprise patient now on IV fluide normal saline at 125 ml/hr started at 7:45 am. Physical Exam Constitutional: + ill appearing and + thin; no acute distress Respiratory: Auscultation: lungs clear to auscultation bilaterally Cardiovascular: RRR, no murmur, no edema Gastrointestinal (Abdomen): normal bowel sounds, soft, nontender, no hepatosplenomegaly Neurologic: PERRL, EOMI, accommodation nl, no face palsy, no dysarthria Results & Data ([facility]) Vital Signs (Past 12 Hours) Vital Signs Temp Pulse Pulse Resp BP BP Pulse Ox 03/21/22 09:43 76 03/21/22 07:27 36.7 C 79 16 87/57 L 97 03/21/22 04:50 36.8 C 99 H 14 91/62 L 95 03/21/22 02:15 100/64 03/21/22 01:07 92/57 L 03/21/22 00:30 36.5 C 73 14 81/55 L 98 03/21/22 00:00 76
[2022-03-21] MEDS: MoRPHine SULFATE 2 MG/ML CARP IV PRN ×3 (11:17→23:56)
--- NOTE | 2022-03-21 13:47 | Electrocardiogram Report ---
Test Reason : Blood Pressure : / mmHG Vent. Rate : 084 BPM Atrial Rate : 084 BPM P-R Int : 120 ms QRS Dur : 092 ms QT Int : 366 ms P-R-T Axes : 087 089 142 degrees QTc Int : 432 ms Normal sinus rhythm with sinus arrhythmia Biatrial enlargement Abnormal ECG When compared with ECG of 17-MAR-2022 14:06, Premature ventricular complexes are no longer Present Nonspecific T wave abnormality now evident in Inferior leads QT has shortened Confirmed by Berlin Rod ([id number]) on 03/21/2022 1:46:56 PM Referred By: REFERRED SELF Confirmed By:Berlin Rod
--- NOTE | 2022-03-21 15:20 | Hospitalist Progress Note ---
Date of Service March 21, 2022 Assessment & Plan (1) Acute exacerbation of chronic obstructive pulmonary disease: Plan: Acute hypoxic and hypercarbic respiratory failure COPD exacerbation Complicated by Influenza A CXR showedIll-defined nodule versus airspace disease of the left upper lobe. Repeat CXR showed Interval improvement in left lung airspace opacities. - Patient has tenuous respiratory status and unable to wean off BIPAP. Had incr easing work of breathing with ABG showing severe hypercapnia and acidosis and transferred to ICU for closer monitoring and possible need for intubation. -S/P mechanical vent support, then extuabetd on 03/15 -Propofol and Precedex drips discontinued - Continue IV doxycycline. IV cefepime changed to Zosyn - Currently on PO prednisone, Continue taper prednisone - CXR shows mildly increased interstitial markings - Repeat cxrshowed no change in subtle reticulonodular interstitial thickening within the left lung. This could reflect an infectious process. - IV Zosyn discontinued then transition to Augmentin - Continue Augmentin for now - Completed Doxycycline course - Speech on board for issue with dysphagia- diet advanced to low fiber - Continue PT/OT eval - Consider inpatient rehab -Clinically stable and denies any significant symptoms -Awaiting placement (2) Influenza A: Plan: As above Finish the course of Tamiflu (3) Acute respiratory failure with hypoxia: Plan: As above Appreciate pulmonary input and recommendation (4) Left ventricular systolic dysfunction: Plan: Systolic heart failure BNP on admission 682 ECHO showed dilated left ventricle with severe global hypokinesis and estimated left ventricular ejection fraction of around 20 to 25%.Thickening of the pericardium and a small pericardial effusion consistent with chronic pericarditis. Repeat ECHO showed Moderate diffuse Left ventricular Hypokinesis with EF 35-39% Cardiology on board-appreciate input and recommendation Continue Entresto starting yesterday 03/19/22 by cardiology Continue monitor BMP (5) Pericardial effusion: Plan: Pericardial effusion ECHO showed moderate sized, loculated anterior and right lateral pericardial effusion Continue Colchicine and prednisone 20mg daily as per recommendation Continue monitor (6) CAD (coronary artery disease): Plan: Status post cardiac stent No acute cardiac symptoms right now Continue current medications Anxiety Received intravenous Precedex and Dilaudid discontinued while in ICU Will continue with gabapentin/lorazepam Hypothyroidism Continue supplement DVT prophylaxis Subcu heparin Admission and Anticipated Discharge Date Admission Date: March 10, 2022 Subjective 03/21/2022 The patient was seen and examined in telemetry unit She has been feeling much better and denies any significant symptoms She has noted to have low blood pressure at systolics 87 this morning and received a small volume of intravenous fluid Denies any shortness of breath, palpitation, chest pain, abdominal pain nausea and vomiting Review of Systems Review of Systems: All systems reviewed and are unremarkable except as noted below Physical Exam Physical Exam: Lying in bed comfortably Constitutional: well developed, well nourished, + ill appearing and + obese Eyes: PERRL, conjunctivae normal, anicteric sclerae ENMT: external ear and nose normal, oropharynx normal Neck: trachea midline, no thyromegaly Respiratory: no respiratory distress Auscultation: + diminished lung sounds and + crackles (Minimal crackles at the bases) Cardiovascular: Rate/Rhythm: regular rate and regular rhythm; not tachycardic Heart Sounds: normal S1 and normal S2; no murmur Extremities: no edema Gastrointestinal (Abdomen): Inspection/Auscultation: abdomen normal to inspection Percussion/Palpation: abdomen soft; abdomen nontender Musculoskeletal: No acute arthritis in any joint Neurologic: Alert, awake and oriented x3. Generally weak but no focal sensory and motor deficit appreciated Psychiatric: A+Ox3, euthymic affect Lymphatic: no cervical or axillary lymphadenopathy Results & Data Results & Data ([facility]) Vital Signs (Past 12 Hours) Vital Signs Temp Pulse Pulse Resp BP BP Pulse Ox 03/21/22 14:55 71 03/21/22 11:28 36.8 C 91 H 18 117/87 96 03/21/22 09:43 76 03/21/22 07:27 36.7 C 79 16 87/57 L 97 03/21/22 04:50 36.8 C 99 H 14 91/62 L 95 Laboratory Results Short CBC 03/21/22 Range/Units 05:40 WBC 14.34 H (4.8-10.8) K/uL Hgb 13.7 (12.0-16.0) g/dL Hct 41.6 (37-47) % Plt Count 391 (130-400) K/uL BMP 03/21/22 05:40 Sodium 136 Potassium 3.4 L Chloride 101 Carbon Dioxide 27 BUN 19 Creatinine 0.92 Glucose 107 H Calcium 8.7 Medications Administered Current Inpatient Medications Acetaminophen (Acetaminophen 325 Mg Tab) 650 mg PO Q6H PRN PRN Reason: Fever/pain Stop: 04/16/22 19:22 Last Admin: 03/17/22 20:03 Dose: 650 mg Documented by: Amoxicillin/Clavulanate Potassium (Amoxicillin/Clavulanate 875 Mg Tab) 1 tab PO BIDM [facility] Stop: 03/25/22 10:44 Last Admin: 03/21/22 07:36 Dose: 1 tab Documented by: Aspirin (Aspirin 81 Mg Chew) 81 mg NG QAM [facility] Stop: 04/12/22 08:59 Last Admin: 03/21/22 07:44 Dose: 81 mg Documented by: Colchicine (Colchicine 0.6 Mg Tab) 0.6 mg PO BID [facility] Stop: 04/18/22 11:14 Last Admin: 03/21/22 07:36 Dose: 0.6 mg Documented by: Dextrose (Dextrose 50% 50 Ml Syringe) 25 - 50 ml IV UD PRN; Protocol PRN Reason: Hypoglycemia Protocol Stop: 04/13/22 06:38 Docusate Sodium (Docusate Sodium Syrup 100 Mg/10 Ml Udc) 100 mg PO BID [facility] Stop: 04/12/22 10:44 Last Admin: 03/21/22 07:22 Dose: Not Given Documented by: Fluticasone/Vilanterol (Fluticasone/Vilanterol 100/25mcg 14 Puffs/Inhaler) 1 puffs INH DAILY [facility] Stop: 04/11/22 10:59 Last Admin: 03/21/22 07:37 Dose: 1 puffs Documented by: Folic Acid (Folic Acid 1 Mg Tab) 1 mg PO QAM [facility] Stop: 04/09/22 10:31 Last Admin: 03/21/22 07:36 Dose: 1 mg Documented by: Gabapentin (Gabapentin 100 Mg Cap) 100 mg PO TID [facility] Stop: 04/13/22 08:59 Last Admin: 03/21/22 14:16 Dose: 100 mg Documented by: Glucagon (Glucagon For Inj 1 Mg Vial) 1 mg SQ UD PRN; Protocol PRN Reason: Hypoglycemia Protocol Stop: 04/13/22 06:38 Glucose (Glucose 10 Tabs/Tube) 4 - 8 tabs PO UD PRN; Protocol PRN Reason: Hypoglycemia Protocol Stop: 04/13/22 06:38 Glucose (Glucose 40% Gel 15 Gm Tube) 15 - 30 gm PO UD PRN; Protocol PRN Reason: Hypoglycemia Protocol Stop: 04/13/22 06:38 Heparin Sodium (Porcine) (Heparin Sod 5,000 Unit/0.5 Ml Vial) 5,000 units SC Q12 [facility] Stop: 04/12/22 20:59 Last Admin: 03/21/22 07:37 Dose: 5,000 units Documented by: Insulin Aspart (Insulin Aspart Per Unit) 0 units SC ACHS [facility]; Protocol Stop: 04/16/22 16:29 Last Admin: 03/21/22 12:06 Dose: Not Given Documented by: Ipratropium [place] (Ipratropium [place] Neb Soln 0.02% 2.5 Ml Vial) 0.5 mg INH Q2R PRN PRN Reason: Shortness Of Breath Or Wheezing Stop: 04/09/22 10:31 Last Admin: 03/14/22 14:50 Dose: 0.5 mg Documented by: Lansoprazole (Lansoprazole 30 Mg Soltab) [facility] Stop: 04/12/22 10:44 Last Admin: 03/21/22 07:36 Dose: 30 mg Documented by: Levalbuterol HCl (Levalbuterol Hcl 1.25 Mg/3 Ml Neb) 1.25 mg NEB Q2R PRN; Protocol PRN Reason: Shortness Of Breath Or Wheezing Stop: 04/09/22 10:31 Last Admin: 03/18/22 07:04 Dose: 1.25 mg Documented by: Levothyroxine Sodium (Levothyroxine Sodium 75 Mcg Tablet) 75 mcg PO DAILYBB [facility] Stop: 04/10/22 06:29 Last Admin: 03/21/22 05:09 Dose: 75 mcg Documented by: Lorazepam (Lorazepam 0.5 Mg Tab) 0.5 mg PO TID PRN PRN Reason: Anxiety Stop: 04/17/22 06:29 Last Admin: 03/21/22 09:58 Dose: 0.5 mg Documented by: Metoprolol Succinate (Metoprolol Succ 25mg Ext Rel Tab) 25 mg PO QAM [facility] Stop: 04/17/22 14:14 Last Admin: 03/21/22 07:34 Dose: Not Given Documented by: Miscellaneous (Carbohydrates For Hypoglycemia ) 15 - 30 gm PO UD PRN PRN Reason: Hypoglycemia Protocol Stop: 04/13/22 06:38 Morphine Sulfate (Morphine Sulfate 2 Mg/Ml Carp) 2 mg IV Q8H PRN PRN Reason: pain not relieved by po meds Stop: 03/29/22 12:29 Last Admin: 03/21/22 11:17 Dose: 2 mg Documented by: Ondansetron HCl (Ondansetron Inj 2 Mg/Ml 2 Ml Vial) 4 mg IV Q6H PRN PRN Reason: Nausea And Vomiting Stop: 04/09/22 20:41 Last Admin: 03/21/22 05:38 Dose: 4 mg Documented by: Oxycodone HCl (Oxycodone Hcl Ir 5 Mg Tab (Immediate Release)) 5 mg PO Q4H PRN PRN Reason: Pain Stop: 03/31/22 22:05 Last Admin: 03/21/22 09:52 Dose: 5 mg Documented by: Prednisone (Prednisone 20 Mg Tab) 20 mg PO DAILY [facility] Stop: 04/19/22 08:59 Last Admin: 03/21/22 07:36 Dose: 20 mg Documented by: Pregabalin (Pregabalin 75 Mg Cap) 75 mg PO TID [facility] Stop: 04/10/22 13:59 Last Admin: 03/11/22 14:14 Dose: Not Given Documented by: Sacubitril/Valsartan (Valsartan/Sacubitril 26/24mg Tab) 1 tab PO BID [facility] Stop: 04/18/22 12:59 Last Admin: 03/21/22 07:36 Dose: 1 tab Documented by: Sennosides (Sennosides 8.8 Mg/5 Ml Udc) 8.8 mg PO BID [facility] Stop: 04/12/22 10:44 Last Admin: 03/21/22 07:22 Dose: Not Given Documented by: Tizanidine HCl (Tizanidine Hcl 4 Mg Tablet) 2 mg PO TID PRN PRN Reason: Muscle Spasm Stop: 04/09/22 10:31 Last Admin: 03/10/22 12:02 Dose: 2 mg Documented by: Tizanidine HCl (Tizanidine Hcl 4 Mg Tablet) 2 mg PO BID [facility] Stop: 04/18/22 20:59 Last Admin: 03/21/22 05:33 Dose: 2 mg Documented by: Umeclidinium [place] (Umeclidinium [place] 62.5mcg/Blister 7 Puffs/Inhaler) 1 puffs INH QAM [facility]; Protocol Stop: 04/09/22 10:59 Last Admin: 03/21/22 09:52 Dose: 1 puffs Documented by: Vitamin D (Cholecalciferol 1,000 Units 25 Mcg Tab) 2,000 units PO QAM [facility] Stop: 04/09/22 10:31 Last Admin: 03/21/22 07:38 Dose: 2,000 units Documented by:
[2022-03-21] MEDS: ACETAMINOPHEN 325 MG TAB PO PRN (23:55)
[2022-03-22] MEDS: oxyCODONE HCL IR 5 MG TAB (IMMEDIATE RELEASE) PO PRN ×4 (02:29→23:34)
[2022-03-22] MEDS: LEVOTHYROXINE SODIUM 75 MCG TABLET PO SCH (06:33)
[2022-03-22] MEDS: INSULIN ASPART PER UNIT SC SCH ×4 (08:44→20:42)
[2022-03-22] MEDS: AMOXICILLIN/CLAVULANATE 875 MG TAB PO SCH ×2 (09:08→17:27)
[2022-03-22] MEDS: FOLIC ACID 1 MG TAB PO SCH (09:09)
[2022-03-22] MEDS: predniSONE 20 MG TAB PO SCH (09:09)
[2022-03-22] MEDS: tiZANidine HCL 4 MG TABLET PO SCH ×2 (09:09→20:09)
[2022-03-22] MEDS: METOPROLOL SUCC 25MG EXT REL TAB PO SCH (09:09)
[2022-03-22] MEDS: GABAPENTIN 100 MG CAP PO SCH ×3 (09:10→20:09)
[2022-03-22] MEDS: COLCHICINE 0.6 MG TAB PO SCH ×2 (09:10→20:09)
[2022-03-22] MEDS: CHOLECALCIFEROL 1,000 UNITS 25 MCG TAB PO SCH (09:11)
[2022-03-22] MEDS: LANSOPRAZOLE 30 MG SOLTAB NG SCH (09:11)
[2022-03-22] MEDS: HEPARIN SOD 5,000 UNIT/0.5 ML VIAL SC SCH ×2 (09:12→20:09)
[2022-03-22] MEDS: FLUTICASONE/VILANTEROL 100/25MCG 14 PUFFS/INHALER INH SCH (09:12)
[2022-03-22] MEDS: DOCUSATE SODIUM SYRUP 100 MG/10 ML UDC PO SCH ×2 (09:12→20:08)
[2022-03-22] MEDS: MoRPHine SULFATE 2 MG/ML CARP IV PRN ×2 (09:13→17:18)
[2022-03-22] MEDS: SENNOSIDES 8.8 MG/5 ML UDC PO SCH ×2 (09:13→20:08)
[2022-03-22] MEDS: UMECLIDINIUM BROMIDE 62.5MCG/BLISTER 7 PUFFS/INHALER INH SCH (09:13)
--- NOTE | 2022-03-22 09:31 | Cardiology Progress Note ---
Date of Service March 22, 2022 Assessment & Plan (1) Acute respiratory failure with hypoxia: (2) Acute exacerbation of chronic obstructive pulmonary disease: (3) Influenza A: (4) CAD (coronary artery disease): (5) Left ventricular systolic dysfunction: (6) HLD (hyperlipidemia): Plan: Complex 56-year-old female admitted with acute respiratory failure requiring mechanical intubation. Course notable for reduced ejection fraction on echocardiogram and component of systolic heart failure. Patient appears to be gradually improving. LV function has improved though not return to full normal. Patient with documented history of chronic stable ischemic heart disease, hyperlipidemia with past statin induced rhabdomyolysis on Repatha Attempts to add Entresto to her regimen resulted in hypotension Current exam without heart failure Recommendations: Continue current therapies including metoprolol succinate 25 mg/day. Colchicine given history of chronic pericardial effusion Will trial low-dose ARB, losartan 25mg given limited tolerance of initial dose of Entresto Anticipate resuming Repatha on discharge Admission and Anticipated Discharge Date Admission Date: March 10, 2022 Subjective Patient was seen and examined, chart, medications, telemetry reviewed. Patient denies any acute complaints. Hemodynamically stable overnight. No productive cough though still wheezing. No fevers or chills. "Awaiting rehab" Review of Systems Review of Systems: All systems reviewed & are unremarkable except as noted in Subjective Physical Exam Constitutional: + thin; no acute distress Respiratory: Auscultation: + diminished lung sounds and + wheezes (With cough) Cardiovascular: Rate/Rhythm: regular rate and regular rhythm Heart Sounds: no murmur and no cardiac rub Vessels: no JVD Extremities: no edema Gastrointestinal (Abdomen): Percussion/Palpation: abdomen soft; abdomen nonte nder Results & Data ([facility]) Vital Signs (Past 12 Hours) Vital Signs Temp Pulse Pulse Resp BP Pulse Ox 03/22/22 08:08 36.7 C 93 H 19 125/78 94 03/22/22 04:01 36.8 C 65 18 110/59 L 98 03/21/22 23:50 36.8 C 80 16 115/57 L 99 03/21/22 22:20 73 Laboratory Results Laboratory Results - last 24 hr 03/21/22 03/21/22 03/22/22 11:16 20:46 07:22 POC Glucose 114 H 133 H 99
[2022-03-22 10:07] LABS: Basophils # (auto) 0.01 K/uL (0-0.2); Basophils % (auto) 0.1 %; Eosinophils # (auto) 0.31 K/uL (0-0.5); Eosinophils % (auto) 2.6 %; Hematocrit (blood only) 40.3 % (37-47); Hemoglobin 13.2 g/dL (12.0-16.0); Immature Granulocytes # (auto) 0.15 K/uL (0.00-0.02); Immature Granulocytes % (auto) 1.2 %; Lymphocytes # (auto) 4.77 K/uL (1.2-3.4); Lymphocytes % (auto) 39.6 %; Mean Corpuscular Hemoglobin 30.5 pg (25-34); Mean Corpuscular Hgb Conc 32.8 g/dL (32-36); Mean Corpuscular Volume 93.1 fL (80-100); Mean Platelet Volume 10.1 fL (7.4-10.4); Monocytes # (auto) 0.79 K/uL (0.11-0.59); Monocytes % (auto) 6.6 %; Neutrophils # (auto) 6.03 K/uL (1.4-6.5); Neutrophils % (auto) 49.9 %; Platelet Count 369 K/uL (130-400); RDW Coefficient of Variation 14.3 % (11.5-14.5); RDW Standard Deviation 48.5 fL (36.4-46.3); Red Blood Count 4.33 M/uL (4.2-5.4); White Blood Count 12.06 K/uL (4.8-10.8)
[2022-03-22 10:34] LABS: BUN Creatinine Ratio 14.5 (10-20); Calcium 8.9 mg/dl (8.5-10.1); Creatinine Clr Calc Pharmacy 62.8 ml/min; Est GFR (African American) 90.7 ml/min; Est GFR (Non-African American) 78.3 ml/min; Potassium 3.5 mmol/L (3.5-5.1)
[2022-03-22] MEDS: LOSARTAN POTASSIUM 25 MG TAB PO SCH (10:49)
[2022-03-22] MEDS: ASPIRIN 81 MG CHEW NG SCH (10:49)
[2022-03-22] MEDS: LORazepam 0.5 MG TAB PO PRN ×2 (12:52→20:12)
--- NOTE | 2022-03-22 15:48 | Hospitalist Progress Note ---
Date of Service March 22, 2022 Assessment & Plan (1) Acute exacerbation of chronic obstructive pulmonary disease: Plan: Acute hypoxic and hypercarbic respiratory failure COPD exacerbation Complicated by Influenza A CXR showedIll-defined nodule versus airspace disease of the left upper lobe. Repeat CXR showed Interval improvement in left lung airspace opacities. - Patient has tenuous respiratory status and unable to wean off BIPAP. Had incr easing work of breathing with ABG showing severe hypercapnia and acidosis and transferred to ICU for closer monitoring and possible need for intubation. -S/P mechanical vent support, then extuabetd on 03/15 -Propofol and Precedex drips discontinued - Continue IV doxycycline. IV cefepime changed to Zosyn - Currently on PO prednisone, Continue taper prednisone - CXR shows mildly increased interstitial markings - Repeat cxrshowed no change in subtle reticulonodular interstitial thickening within the left lung. This could reflect an infectious process. - IV Zosyn discontinued then transition to Augmentin - Continue Augmentin for now - Completed Doxycycline course - Speech on board for issue with dysphagia- diet advanced to low fiber - Continue PT/OT eval - Consider inpatient rehab -Clinically stable and denies any significant symptoms -Awaiting placement (2) Influenza A: Plan: As above Finished the course of Tamiflu (3) Acute respiratory failure with hypoxia: Plan: As above Appreciate pulmonary input and recommendation (4) Left ventricular systolic dysfunction: Plan: Systolic heart failure BNP on admission 682 ECHO showed dilated left ventricle with severe global hypokinesis and estimated left ventricular ejection fraction of around 20 to 25%.Thickening of the pericardium and a small pericardial effusion consistent with chronic pericarditis. Repeat ECHO showed Moderate diffuse Left ventricular Hypokinesis with EF 35-39% Cardiology on board-appreciate input and recommendation Continue Entresto starting yesterday 03/19/22 by cardiology Cardiac medications have been readjusted by the floor tiling professional with metoprolol succinate 25 mg/day, low-dose ARB, losartan 25 mg and continue colchicine for now PIP remains unremarkable (5) Pericardial effusion: Plan: Pericardial effusion ECHO showed moderate sized, loculated anterior and right lateral pericardial effusion Continue Colchicine and prednisone 20mg daily as per recommendation Continue monitor (6) CAD (coronary artery disease): Plan: Status post cardiac stent No acute cardiac symptoms right now Continue current medications Anxiety Received intravenous Precedex and Dilaudid discontinued while in ICU Will continue with gabapentin/lorazepam Hypothyroidism Continue supplement DVT prophylaxis Subcu heparin Admission and Anticipated Discharge Date Admission Date: March 10, 2022 Subjective 03/21/2022 The patient was seen and examined in telemetry unit She has been feeling much better and denies any significant symptoms She has noted to have low blood pressure at systolics 87 this morning and received a small volume of intravenous fluid Denies any shortness of breath, palpitation, chest pain, abdominal pain nausea and vomiting 03/22/2022 The patient was seen and examined in telemetry unit She has been stable without any acute symptoms Review of Systems Review of Systems: All systems reviewed and are unremarkable except as noted below Musculoskeletal: Remains generally weak and lethargic Physical Exam Physical Exam: Lying in bed comfortably Constitutional: well developed, well nourished, + ill appearing and + obese Eyes: PERRL, conjunctivae normal, anicteric sclerae ENMT: external ear and nose normal, oropharynx normal Neck: trachea midline, no thyromegaly Respiratory: no respiratory distress Auscultation: + diminished lung sounds and + crackles (Minimal crackles at the bases) Cardiovascular: Rate/Rhythm: regular rate and regular rhythm; not tachycardic Heart Sounds: normal S1 and normal S2; no murmur Extremities: no edema Gastrointestinal (Abdomen): Inspection/Auscultation: abdomen normal to inspection Percussion/Palpation: abdomen soft; abdomen nontender Psychiatric: A+Ox3, euthymic affect Lymphatic: no cervical or axillary lymphadenopathy Results & Data Results & Data ([facility]) Vital Signs (Past 12 Hours) Vital Signs Temp Pulse Pulse Resp BP Pulse Ox 03/22/22 15:29 36.8 C 74 18 131/70 94 03/22/22 11:54 36.8 C 75 18 107/66 92 03/22/22 08:08 36.7 C 93 H 19 125/78 94 03/22/22 08:00 67 03/22/22 04:01 36.8 C 65 18 110/59 L 98 Laboratory Results Short CBC 03/22/22 Range/Units 09:22 WBC 12.06 H (4.8-10.8) K/uL Hgb 13.2 (12.0-16.0) g/dL Hct 40.3 (37-47) % Plt Count 369 (130-400) K/uL BMP 03/22/22 09:22 Sodium 140 Potassium 3.5 Chloride 101 Carbon Dioxide 31 BUN 12 Creatinine 0.83 Glucose 98 Calcium 8.9 Medications Administered Current Inpatient Medications Acetaminophen (Acetaminophen 325 Mg Tab) 650 mg PO Q6H PRN PRN Reason: Fever/pain Stop: 04/16/22 19:22 Last Admin: 03/21/22 23:55 Dose: 650 mg Documented by: Amoxicillin/Clavulanate Potassium (Amoxicillin/Clavulanate 875 Mg Tab) 1 tab PO BIDM [facility] Stop: 03/25/22 10:44 Last Admin: 03/22/22 09:08 Dose: 1 tab Documented by: Aspirin (Aspirin 81 Mg Chew) 81 mg NG QAM [facility] Stop: 04/12/22 08:59 Last Admin: 03/22/22 10:49 Dose: 81 mg Documented by: Colchicine (Colchicine 0.6 Mg Tab) 0.6 mg PO BID [facility] Stop: 04/18/22 11:14 Last Admin: 03/22/22 09:10 Dose: 0.6 mg Documented by: Dextrose (Dextrose 50% 50 Ml Syringe) 25 - 50 ml IV UD PRN; Protocol PRN Reason: Hypoglycemia Protocol Stop: 04/13/22 06:38 Docusate Sodium (Docusate Sodium Syrup 100 Mg/10 Ml Udc) 100 mg PO BID [facility] Stop: 04/12/22 10:44 Last Admin: 03/22/22 09:12 Dose: Not Given Documented by: Fluticasone/Vilanterol (Fluticasone/Vilanterol 100/25mcg 14 Puffs/Inhaler) 1 puffs INH DAILY [facility] Stop: 04/11/22 10:59 Last Admin: 03/22/22 09:12 Dose: 1 puffs Documented by: Folic Acid (Folic Acid 1 Mg Tab) 1 mg PO QAM [facility] Stop: 04/09/22 10:31 Last Admin: 03/22/22 09:09 Dose: 1 mg Documented by: Gabapentin (Gabapentin 100 Mg Cap) 100 mg PO TID [facility] Stop: 04/13/22 08:59 Last Admin: 03/22/22 14:17 Dose: 100 mg Documented by: Glucagon (Glucagon For Inj 1 Mg Vial) 1 mg SQ UD PRN; Protocol PRN Reason: Hypoglycemia Protocol Stop: 04/13/22 06:38 Glucose (Glucose 10 Tabs/Tube) 4 - 8 tabs PO UD PRN; Protocol PRN Reason: Hypoglycemia Protocol Stop: 04/13/22 06:38 Glucose (Glucose 40% Gel 15 Gm Tube) 15 - 30 gm PO UD PRN; Protocol PRN Reason: Hypoglycemia Protocol Stop: 04/13/22 06:38 Heparin Sodium (Porcine) (Heparin Sod 5,000 Unit/0.5 Ml Vial) 5,000 units SC Q12 [facility] Stop: 04/12/22 20:59 Last Admin: 03/22/22 09:12 Dose: 5,000 units Documented by: Insulin Aspart (Insulin Aspart Per Unit) 0 units SC ACHS [facility]; Protocol Stop: 04/16/22 16:29 Last Admin: 03/22/22 12:14 Dose: 3 units Documented by: Ipratropium [place] (Ipratropium [place] Neb Soln 0.02% 2.5 Ml Vial) 0.5 mg INH Q2R PRN PRN Reason: Shortness Of Breath Or Wheezing Stop: 04/09/22 10:31 Last Admin: 03/14/22 14:50 Dose: 0.5 mg Documented by: Lansoprazole (Lansoprazole 30 Mg Soltab) 30 mg [facility] Stop: 04/12/22 10:44 Last Admin: 03/22/22 09:11 Dose: 30 mg Documented by: Levalbuterol HCl (Levalbuterol Hcl 1.25 Mg/3 Ml Neb) 1.25 mg NEB Q2R PRN; Protocol PRN Reason: Shortness Of Breath Or Wheezing Stop: 04/09/22 10:31 Last Admin: 03/18/22 07:04 Dose: 1.25 mg Documented by: Levothyroxine Sodium (Levothyroxine Sodium 75 Mcg Tablet) 75 mcg PO DAILYBB [facility] Stop: 04/10/22 06:29 Last Admin: 03/22/22 06:33 Dose: 75 mcg Documented by: Lorazepam (Lorazepam 0.5 Mg Tab) 0.5 mg PO TID PRN PRN Reason: Anxiety Stop: 04/17/22 06:29 Last Admin: 03/22/22 12:52 Dose: 0.5 mg Documented by: Losartan Potassium (Losartan Potassium 25 Mg Tab) 25 mg PO QAM [facility] Stop: 04/21/22 09:44 Last Admin: 03/22/22 10:49 Dose: 25 mg Documented by: Metoprolol Succinate (Metoprolol Succ 25mg Ext Rel Tab) 25 mg PO QAM [facility] Stop: 04/17/22 14:14 Last Admin: 03/22/22 09:09 Dose: 25 mg Documented by: Miscellaneous (Carbohydrates For Hypoglycemia ) 15 - 30 gm PO UD PRN PRN Reason: Hypoglycemia Protocol Stop: 04/13/22 06:38 Morphine Sulfate (Morphine Sulfate 2 Mg/Ml Carp) 2 mg IV Q8H PRN PRN Reason: pain not relieved by po meds Stop: 03/29/22 12:29 Last Admin: 03/22/22 09:13 Dose: 2 mg Documented by: Ondansetron HCl (Ondansetron Inj 2 Mg/Ml 2 Ml Vial) 4 mg IV Q6H PRN PRN Reason: Nausea And Vomiting Stop: 04/09/22 20:41 Last Admin: 03/21/22 17:04 Dose: 4 mg Documented by: Oxycodone HCl (Oxycodone Hcl Ir 5 Mg Tab (Immediate Release)) 5 mg PO Q4H PRN PRN Reason: Pain Stop: 03/31/22 22:05 Last Admin: 03/22/22 12:51 Dose: 5 mg Documented by: Prednisone (Prednisone 20 Mg Tab) 20 mg PO DAILY [facility] Stop: 04/19/22 08:59 Last Admin: 03/22/22 09:09 Dose: 20 mg Documented by: Pregabalin (Pregabalin 75 Mg Cap) 75 mg PO TID [facility] Stop: 04/10/22 13:59 Last Admin: 03/11/22 14:14 Dose: Not Given Documented by: Sacubitril/Valsartan (Valsartan/Sacubitril 26/24mg Tab) 1 tab PO BID [facility] Stop: 04/18/22 12:59 Last Admin: 03/21/22 07:36 Dose: 1 tab Documented by: Sennosides (Sennosides 8.8 Mg/5 Ml Udc) 8.8 mg PO BID [facility] Stop: 04/12/22 10:44 Last Admin: 03/22/22 09:13 Dose: Not Given Documented by: Tizanidine HCl (Tizanidine Hcl 4 Mg Tablet) 2 mg PO TID PRN PRN Reason: Muscle Spasm Stop: 04/09/22 10:31 Last Admin: 03/10/22 12:02 Dose: 2 mg Documented by: Tizanidine HCl (Tizanidine Hcl 4 Mg Tablet) 2 mg PO BID [facility] Stop: 04/18/22 20:59 Last Admin: 03/22/22 09:09 Dose: 2 mg Documented by: Umeclidinium [place] (Umeclidinium [place] 62.5mcg/Blister 7 Puffs/Inhaler) 1 puffs [facility]H [facility] [place]; Protocol Stop: 04/09/22 10:59 Last Admin: 03/22/22 09:13 Dose: 1 puffs Documented by: Vitamin D (Cholecalciferol 1,000 Units 25 Mcg Tab) 2,000 units PO [facility] [place] Stop: 04/09/22 10:31 Last Admin: 03/22/22 09:11 Dose: 2,000 units Documented by:
[2022-03-23] MEDS: MoRPHine SULFATE 2 MG/ML CARP IV PRN (02:04)
[2022-03-23] MEDS: oxyCODONE HCL IR 5 MG TAB (IMMEDIATE RELEASE) PO PRN ×3 (06:14→22:26)
[2022-03-23] MEDS: LEVOTHYROXINE SODIUM 75 MCG TABLET PO SCH (06:14)
[2022-03-23] MEDS: INSULIN ASPART PER UNIT SC SCH ×4 (07:56→22:34)
[2022-03-23] MEDS: UMECLIDINIUM BROMIDE 62.5MCG/BLISTER 7 PUFFS/INHALER INH SCH (08:06)
[2022-03-23] MEDS: FLUTICASONE/VILANTEROL 100/25MCG 14 PUFFS/INHALER INH SCH (08:07)
[2022-03-23] MEDS: HEPARIN SOD 5,000 UNIT/0.5 ML VIAL SC SCH ×2 (08:08→22:36)
[2022-03-23] MEDS: COLCHICINE 0.6 MG TAB PO SCH ×2 (08:08→22:36)
[2022-03-23] MEDS: GABAPENTIN 100 MG CAP PO SCH ×3 (08:08→22:37)
[2022-03-23] MEDS: AMOXICILLIN/CLAVULANATE 875 MG TAB PO SCH ×2 (08:08→16:57)
[2022-03-23] MEDS: tiZANidine HCL 4 MG TABLET PO SCH ×2 (08:08→22:28)
[2022-03-23] MEDS: METOPROLOL SUCC 25MG EXT REL TAB PO SCH (08:09)
[2022-03-23] MEDS: LOSARTAN POTASSIUM 25 MG TAB PO SCH (08:09)
[2022-03-23] MEDS: LANSOPRAZOLE 30 MG SOLTAB NG SCH (08:09)
[2022-03-23] MEDS: predniSONE 20 MG TAB PO SCH (08:09)
[2022-03-23] MEDS: FOLIC ACID 1 MG TAB PO SCH (08:09)
[2022-03-23] MEDS: CHOLECALCIFEROL 1,000 UNITS 25 MCG TAB PO SCH (08:10)
[2022-03-23] MEDS: SENNOSIDES 8.8 MG/5 ML UDC PO SCH ×2 (08:10→22:31)
[2022-03-23] MEDS: DOCUSATE SODIUM SYRUP 100 MG/10 ML UDC PO SCH ×2 (08:10→22:31)
[2022-03-23] MEDS: ASPIRIN 81 MG CHEW NG SCH (08:13)
[2022-03-23] MEDS: LORazepam 0.5 MG TAB PO PRN (08:13)
--- NOTE | 2022-03-23 10:00 | Cardiology Progress Note ---
Date of Service March 23, 2022 Assessment & Plan (1) Acute respiratory failure with hypoxia: (2) Acute exacerbation of chronic obstructive pulmonary disease: (3) Influenza A: (4) CAD (coronary artery disease): (5) Left ventricular systolic dysfunction: (6) HLD (hyperlipidemia): Plan: Complex 56-year-old female admitted with acute respiratory failure requiring mechanical intubation. Course notable for reduced ejection fraction on echocardiogram and component of systolic heart failure. Patient appears to be gradually improving. LV function has improved though not return to full normal. Patient with documented history of chronic stable ischemic heart disease, hyperlipidemia with past statin induced rhabdomyolysis on Repatha Attempts to add Entresto to her regimen resulted in hypotension Current exam without heart failure Recommendations: Continue current therapies including metoprolol succinate 25 mg/day. Colchicine given history of chronic pericardial effusion Continue losartan 25 mg/day for afterload reduction. Tolerating from blood pressure standpoint I's and O's equal without volume overload. Admission and Anticipated Discharge Date Admission Date: March 10, 2022 Subjective Patient was seen and examined, chart, medications, telemetry reviewed. Daily improvement. Hemodynamically stable without further hypotension. No respiratory distress. Still requiring pain medications. No chest pain or shortness of breath no productive cough Review of Systems Review of Systems: All systems reviewed & are unremarkable except as noted in Subjective Physical Exam Constitutional: + thin; no acute distress Respiratory: Auscultation: + diminished lung sounds and + wheezes (With cough) Cardiovascular: Rate/Rhythm: regular rate and regular rhythm Heart Sounds: no murmur and no cardiac rub Vessels: no JVD Extremities: no edema Gastrointestinal (Abdomen): Percussion/Palpation: abdomen soft; abdomen nontender Results & Data ([facility]) Vital Signs (Past 12 Hours) Vital Signs Temp Pulse Pulse Resp BP BP Pulse Ox 03/23/22 07:52 36.7 C 79 18 106/68 92 03/23/22 07:50 77 03/23/22 04:01 36.9 C 60 18 112/56 L 99 03/22/22 23:31 36.9 C 69 18 111/53 L 99 03/22/22 22:20 58 L Laboratory Results Laboratory Results - last 24 hr 03/22/22 03/22/22 03/22/22 09:22 09:22 11:20 WBC 12.06 H RBC 4.33 Hgb 13.2 Hct 40.3 MCV 93.1 MCH 30.5 MCHC 32.8 RDW Std Deviation 48.5 H RDW Coeff of Akiko 14.3 Plt Count 369 MPV 10.1 Immature Gran % (Auto) 1.2 Neut % (Auto) 49.9 Lymph % (Auto) 39.6 [place] % (Auto) 6.6 Eos % (Auto) 2.6 Baso % (Auto) 0.1 Neut # (Auto) 6.03 Lymph # (Auto) 4.77 H [place] # (Auto) 0.79 H Eos # (Auto) 0.31 Baso # (Auto) 0.01 Immature Gran # (Auto) 0.15 H Sodium 140 Potassium 3.5 Chloride 101 Carbon Dioxide 31 Anion Gap 8 BUN 12 Creatinine 0.83 Est Cr Clr Drug Dosing 62.8 Est GFR ( Amer) 90.7 Est GFR (Non-Af Amer) 78.3 BUN/Creatinine Ratio 14.5 Glucose 98 POC Glucose 95 Calcium 8.9 03/22/22 03/22/22 03/23/22 16:38 20:35 07:09 WBC RBC Hgb Hct MCV MCH MCHC RDW Std Deviation RDW Coeff of [place] Plt Count MPV Immature Gran % (Auto) Neut % (Auto) Lymph % (Auto) [place] % (Auto) Eos % (Auto) Baso % (Auto) Neut # (Auto) Lymph # (Auto) [place] # (Auto) Eos # (Auto) Baso # (Auto) Immature Gran # (Auto) Sodium Potassium Chloride Carbon Dioxide Anion Gap BUN Creatinine Est Cr Clr Drug Dosing Est GFR ( Amer) Est GFR (Non-Af Amer) BUN/Creatinine Ratio Glucose POC Glucose 121 H 124 H 88 Calcium
[2022-03-23] MEDS: ONDANSETRON INJ 2 MG/ML 2 ML VIAL IV PRN (12:05)
--- NOTE | 2022-03-23 14:14 | Hospitalist Progress Note ---
Date of Service March 23, 2022 Assessment & Plan (1) Acute exacerbation of chronic obstructive pulmonary disease: Plan: Acute hypoxic and hypercarbic respiratory failure COPD exacerbation Complicated by Influenza A CXR showedIll-defined nodule versus airspace disease of the left upper lobe. Repeat CXR showed Interval improvement in left lung airspace opacities. - Patient has tenuous respiratory status and unable to wean off BIPAP. Had increasing work of breathing with ABG showing severe hypercapnia and acidosis and transferred to ICU for closer monitoring and possible need for intubation. -S/P mechanical vent support, then extuabetd on 03/15 -Propofol and Precedex drips discontinued - Continue IV doxycycline. IV cefepime changed to Zosyn - Currently on PO prednisone, Continue taper prednisone - CXR shows mildly increased interstitial markings - Repeat cxrshowed no change in subtle reticulonodular interstitial thickening within the left lung. This could reflect an infectious process. - IV Zosyn discontinued then transition to Augmentin - Continue Augmentin for now - Completed Doxycycline course - Speech on board for issue with dysphagia- diet advanced to low fiber - Continue PT/OT eval - Consider inpatient rehab -Clinically stable and denies any significant symptoms -Remains stable and will decrease prednisone to 10 mg daily -Awaiting placement (2) Influenza A: Plan: As above Finished the course of Tamiflu (3) Acute respiratory failure with hypoxia: Plan: As above Appreciate pulmonary input and recommendation (4) Left ventricular systolic dysfunction: Plan: Systolic heart failure BNP on admission 682 ECHO showed dilated left ventricle with severe global hypokinesis and estimated left ventricular ejection fraction of around 20 to 25%.Thickening of the pericardium and a small pericardial effusion consistent with chronic pericarditis. 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 and corrosion engineer with metoprolol succinate 25 mg/day, low-dose ARB, losartan 25 mg and continue colchicine for now Kidney function has remained stable (5) Pericardial effusion: Plan: Pericardial effusion ECHO showed moderate sized, loculated anterior and right lateral pericardial effusion Continue Colchicine and prednisone 20mg daily as per recommendation Continue monitor (6) CAD (coronary artery disease): Plan: Status post cardiac stent No acute cardiac symptoms right now Continue current medications Anxiety Received intravenous Precedex and Dilaudid discontinued while in ICU Will continue with gabapentin/lorazepam Hypothyroidism Continue supplement DVT prophylaxis Subcu heparin Admission and Anticipated Discharge Date Admission Date: March 10, 2022 Subjective 03/21/2022 The patient was seen and examined in telemetry unit She has been feeling much better and denies any significant symptoms She has noted to have low blood pressure at systolics 87 this morning and received a small volume of intravenous fluid Denies any shortness of breath, palpitation, chest pain, abdominal pain nausea and vomiting 03/22/2022 The patient was seen and examined in telemetry unit She has been stable without any acute symptoms 03/23/2022 The patient was seen and examined in telemetry unit She denies any symptoms today and has been waiting to be placed No cough, wheezing and no shortness of breath Review of Systems Review of Systems: All systems reviewed and are unremarkable except as noted below Musculoskeletal: Remains generally weak and lethargic Physical Exam Physical Exam: Lying in bed comfortably Constitutional: well developed, well nourished, + ill appearing and + obese Eyes: PERRL, conjunctivae normal, anicteric sclerae ENMT: external ear and nose normal, oropharynx normal Neck: trachea midline, no thyromegaly Respiratory: no respiratory distress Auscultation: + diminished lung sounds and + crackles (Minimal crackles at the bases) Cardiovascular: Rate/Rhythm: regular rate and regular rhythm; not tachycardic Heart Sounds: normal S1 and normal S2; no murmur Extremities: no edema Gastrointestinal (Abdomen): Inspection/Auscultation: abdomen normal to inspection Percussion/Palpation: abdomen soft; abdomen nontender Musculoskeletal: No acute arthritis in any joint Neurologic: Alert, awake and oriented x3. No focal sensory or no motor deficit appreciated Psychiatric: A+Ox3, euthymic affect Lymphatic: no cervical or axillary lymphadenopathy Results & Data Results & Data ([facility]) Vital Signs (Past 12 Hours) Vital Signs Temp Pulse Pulse Resp BP BP Pulse Ox 03/23/22 11:43 36.6 C 77 19 107/58 L 93 03/23/22 07:52 36.7 C 79 18 106/68 92 03/23/22 07:50 77 03/23/22 04:01 36.9 C 60 18 112/56 L 99 Medications Administered Current Inpatient Medications Acetaminophen (Acetaminophen 325 Mg Tab) 650 mg PO Q6H PRN PRN Reason: Fever/pain Stop: 04/16/22 19:22 Last Admin: 03/21/22 23:55 Dose: 650 mg Documented by: Amoxicillin/Clavulanate Potassium (Amoxicillin/Clavulanate 875 Mg Tab) 1 tab PO BIDM [facility] Stop: 03/25/22 10:44 Last Admin: 03/23/22 08:08 Dose: 1 tab Documented by: Aspirin (Aspirin 81 Mg Chew) 81 mg NG QAM [facility] Stop: 04/12/22 08:59 Last Admin: 03/23/22 08:13 Dose: 81 mg Documented by: Colchicine (Colchicine 0.6 Mg Tab) 0.6 mg PO BID [facility] Stop: 04/18/22 11:14 Last Admin: 03/23/22 08:08 Dose: 0.6 mg Documented by: Dextrose (Dextrose 50% 50 Ml Syringe) 25 - 50 ml IV UD PRN; Protocol PRN Reason: Hypoglycemia Protocol Stop: 04/13/22 06:38 Docusate Sodium (Docusate Sodium Syrup 100 Mg/10 Ml Udc) 100 mg PO BID [facility] Stop: 04/12/22 10:44 Last Admin: 03/23/22 08:10 Dose: Not Given Documented by: Fluticasone/Vilanterol (Fluticasone/Vilanterol 100/25mcg 14 Puffs/Inhaler) 1 puffs INH DAILY [facility] Stop: 04/11/22 10:59 Last Admin: 03/23/22 08:07 Dose: 1 puffs Documented by: Folic Acid (Folic Acid 1 Mg Tab) 1 mg PO QAM [facility] Stop: 04/09/22 10:31 Last Admin: 03/23/22 08:09 Dose: 1 mg Documented by: Gabapentin (Gabapentin 100 Mg Cap) 100 mg PO TID JUDITH Stop: 04/13/22 08:59 Last Admin: 03/23/22 08:08 Dose: 100 mg Documented by: Glucagon (Glucagon For Inj 1 Mg Vial) 1 mg SQ UD PRN; Protocol PRN Reason: Hypoglycemia Protocol Stop: 04/13/22 06:38 Glucose (Glucose 10 Tabs/Tube) 4 - 8 tabs PO UD PRN; Protocol PRN Reason: Hypoglycemia Protocol Stop: 04/13/22 06:38 Glucose (Glucose 40% Gel 15 Gm Tube) 15 - 30 gm PO UD PRN; Protocol PRN Reason: Hypoglycemia Protocol Stop: 04/13/22 06:38 Heparin Sodium (Porcine) (Heparin Sod 5,000 Unit/0.5 Ml Vial) 5,000 units SC Q12 [facility] Stop: 04/12/22 20:59 Last Admin: 03/23/22 08:08 Dose: 5,000 units Documented by: Insulin Aspart (Insulin Aspart Per Unit) 0 units SC ACHS [facility]; Protocol Stop: 04/16/22 16:29 Last Admin: 03/23/22 11:46 Dose: 3 units Documented by: Ipratropium [place] (Ipratropium [place] Neb Soln 0.02% 2.5 Ml Vial) 0.5 mg INH Q2R PRN PRN Reason: Shortness Of Breath Or Wheezing Stop: 04/09/22 10:31 Last Admin: 03/14/22 14:50 Dose: 0.5 mg Documented by: Lansoprazole (Lansoprazole 30 Mg Soltab) 30 mg NG [facility] Stop: 04/12/22 10:44 Last Admin: 03/23/22 08:09 Dose: 30 mg Documented by: Levalbuterol HCl (Levalbuterol Hcl 1.25 Mg/3 Ml Neb) 1.25 mg NEB Q2R PRN; Protocol PRN Reason: Shortness Of Breath Or Wheezing Stop: 04/09/22 10:31 Last Admin: 03/18/22 07:04 Dose: 1.25 mg Documented by: Levothyroxine Sodium (Levothyroxine Sodium 75 Mcg Tablet) 75 mcg PO DAILYBB [facility] Stop: 04/10/22 06:29 Last Admin: 03/23/22 06:14 Dose: 75 mcg Documented by: Lorazepam (Lorazepam 0.5 Mg Tab) 0.5 mg PO TID PRN PRN Reason: Anxiety Stop: 04/17/22 06:29 Last Admin: 03/23/22 08:13 Dose: 0.5 mg Documented by: Losartan Potassium (Losartan Potassium 25 Mg Tab) 25 mg PO [facility] Stop: 04/21/22 09:44 Last Admin: 03/23/22 08:09 Dose: 25 mg Documented by: Metoprolol Succinate (Metoprolol Succ 25mg Ext Rel Tab) 25 mg PO [facility] Stop: 04/17/22 14:14 Last Admin: 03/23/22 08:09 Dose: 25 mg Documented by: Miscellaneous (Carbohydrates For Hypoglycemia ) 15 - 30 gm PO UD PRN PRN Reason: Hypoglycemia Protocol Stop: 04/13/22 06:38 Morphine Sulfate (Morphine Sulfate 2 Mg/Ml [place]) 2 mg IV Q8H PRN PRN Reason: pain not relieved by po meds Stop: 03/29/22 12:29 Last Admin: 03/23/22 02:04 Dose: 2 mg Documented by: Ondansetron HCl (Ondansetron Inj 2 Mg/Ml 2 Ml Vial) 4 mg IV Q6H PRN PRN Reason: Nausea And Vomiting Stop: 04/09/22 20:41 Last Admin: 03/23/22 12:05 Dose: 4 mg Documented by: Oxycodone HCl (Oxycodone Hcl Ir 5 Mg Tab (Immediate Release)) 5 mg PO Q4H PRN PRN Reason: Pain Stop: 03/31/22 22:05 Last Admin: 03/23/22 06:14 Dose: 5 mg Documented by: Prednisone (Prednisone 20 Mg Tab) 20 mg PO DAILY [facility] Stop: 04/19/22 08:59 Last Admin: 03/23/22 08:09 Dose: 20 mg Documented by: Pregabalin (Pregabalin 75 Mg Cap) 75 mg PO TID [facility] Stop: 04/10/22 13:59 Last Admin: 03/11/22 14:14 Dose: Not Given Documented by: Sacubitril/Valsartan (Valsartan/Sacubitril 26/24mg Tab) 1 tab PO BID [facility] Stop: 04/18/22 12:59 Last Admin: 03/21/22 07:36 Dose: 1 tab Documented by: Sennosides (Sennosides 8.8 Mg/5 Ml Udc) 8.8 mg PO BID [facility] Stop: 04/12/22 10:44 Last Admin: 03/23/22 08:10 Dose: Not Given Documented by: Tizanidine HCl (Tizanidine Hcl 4 Mg Tablet) 2 mg PO TID PRN PRN Reason: Muscle Spasm Stop: 04/09/22 10:31 Last Admin: 03/10/22 12:02 Dose: 2 mg Documented by: Tizanidine HCl (Tizanidine Hcl 4 Mg Tablet) 2 mg PO BID [facility] Stop: 04/18/22 20:59 Last Admin: 03/23/22 08:08 Dose: 2 mg Documented by: Umeclidinium [place] (Umeclidinium [place] 62.5mcg/Blister 7 Puffs/Inhaler) 1 puffs INH QAM [facility]; Protocol Stop: 04/09/22 10:59 Last Admin: 03/23/22 08:06 Dose: 1 puffs Documented by: Vitamin D (Cholecalciferol 1,000 Units 25 Mcg Tab) 2,000 units PO QAM [facility] Stop: 04/09/22 10:31 Last Admin: 03/23/22 08:10 Dose: 2,000 units Documented by:
[2022-03-23] MEDS: LEVALBUTEROL HCL 1.25 MG/3 ML NEB NEB PRN (20:54)
[2022-03-23] MEDS: IPRATROPIUM BROMIDE NEB SOLN 0.02% 2.5 ML VIAL INH PRN (20:55)
[2022-03-24] MEDS: MoRPHine SULFATE 2 MG/ML CARP IV PRN (01:18)
[2022-03-24] MEDS ORDERED: MoRPHine SULFATE 2 MG/ML CARP IV STA (05:33)
[2022-03-24] MEDS: LEVOTHYROXINE SODIUM 75 MCG TABLET PO SCH (05:52)
[2022-03-24 06:29] LABS: Basophils # (auto) 0.01 K/uL (0-0.2); Basophils % (auto) 0.1 %; Eosinophils # (auto) 0.17 K/uL (0-0.5); Eosinophils % (auto) 1.4 %; Hematocrit (blood only) 38.3 % (37-47); Hemoglobin 12.5 g/dL (12.0-16.0); Immature Granulocytes # (auto) 0.06 K/uL (0.00-0.02); Immature Granulocytes % (auto) 0.5 %; Lymphocytes # (auto) 4.68 K/uL (1.2-3.4); Lymphocytes % (auto) 37.7 %; Mean Corpuscular Hemoglobin 30.4 pg (25-34); Mean Corpuscular Hgb Conc 32.6 g/dL (32-36); Mean Corpuscular Volume 93.2 fL (80-100); Mean Platelet Volume 9.6 fL (7.4-10.4); Monocytes # (auto) 0.89 K/uL (0.11-0.59); Monocytes % (auto) 7.2 %; Neutrophils # (auto) 6.62 K/uL (1.4-6.5); Neutrophils % (auto) 53.1 %; Platelet Count 321 K/uL (130-400); RDW Coefficient of Variation 14.6 % (11.5-14.5); RDW Standard Deviation 48.9 fL (36.4-46.3); Red Blood Count 4.11 M/uL (4.2-5.4); White Blood Count 12.43 K/uL (4.8-10.8)
[2022-03-24 06:41] LABS: Calcium 8.9 mg/dl (8.5-10.1); Creatinine Clr Calc Pharmacy 60.6 ml/min; Est GFR (African American) 79.1 ml/min; Est GFR (Non-African American) 68.2 ml/min; Magnesium 1.8 mg/dl (1.7-2.4); Potassium 3.4 mmol/L (3.5-5.1)
[2022-03-24] MEDS: LEVALBUTEROL HCL 1.25 MG/3 ML NEB NEB PRN ×2 (07:22→19:55)
[2022-03-24] MEDS: IPRATROPIUM BROMIDE NEB SOLN 0.02% 2.5 ML VIAL INH PRN ×2 (07:22→19:55)
[2022-03-24] MEDS: SENNOSIDES 8.8 MG/5 ML UDC PO SCH ×2 (07:46→21:33)
[2022-03-24] MEDS: DOCUSATE SODIUM SYRUP 100 MG/10 ML UDC PO SCH ×2 (07:46→21:32)
[2022-03-24] MEDS ORDERED: POTASSIUM CHLORIDE CRTAB 20 MEQ TABCR PO STA (07:49)
[2022-03-24] MEDS: INSULIN ASPART PER UNIT SC SCH ×5 (07:57→21:32)
[2022-03-24] MEDS: GABAPENTIN 100 MG CAP PO SCH ×3 (09:21→21:36)
[2022-03-24] MEDS: tiZANidine HCL 4 MG TABLET PO SCH ×2 (09:21→21:35)
[2022-03-24] MEDS: COLCHICINE 0.6 MG TAB PO SCH ×2 (09:21→21:37)
[2022-03-24] MEDS: AMOXICILLIN/CLAVULANATE 875 MG TAB PO SCH ×2 (09:22→17:14)
[2022-03-24] MEDS: FOLIC ACID 1 MG TAB PO SCH (09:22)
[2022-03-24] MEDS: LANSOPRAZOLE 30 MG SOLTAB NG SCH (09:22)
[2022-03-24] MEDS: LOSARTAN POTASSIUM 25 MG TAB PO SCH (09:23)
[2022-03-24] MEDS: predniSONE 10 MG TABLET PO SCH (09:23)
[2022-03-24] MEDS: METOPROLOL SUCC 25MG EXT REL TAB PO SCH ×2 (09:23→09:30)
[2022-03-24] MEDS: CHOLECALCIFEROL 1,000 UNITS 25 MCG TAB PO SCH (09:24)
[2022-03-24] MEDS: FLUTICASONE/VILANTEROL 100/25MCG 14 PUFFS/INHALER INH SCH (09:24)
[2022-03-24] MEDS: UMECLIDINIUM BROMIDE 62.5MCG/BLISTER 7 PUFFS/INHALER INH SCH (09:24)
[2022-03-24] MEDS: HEPARIN SOD 5,000 UNIT/0.5 ML VIAL SC SCH ×2 (09:25→21:38)
[2022-03-24] MEDS: ASPIRIN 81 MG CHEW NG SCH (09:27)
[2022-03-24] MEDS: LORazepam 0.5 MG TAB PO PRN ×2 (10:46→18:32)
[2022-03-24] MEDS ORDERED: SODIUM CHLORIDE 0.9% 250 ML IV SCH (12:00)
--- NOTE | 2022-03-24 16:12 | Hospitalist Progress Note ---
Date of Service March 24, 2022 Assessment & Plan (1) Acute exacerbation of chronic obstructive pulmonary disease: Plan: Acute hypoxic and hypercarbic respiratory failure COPD exacerbation Complicated by Influenza A CXR showedIll-defined nodule versus airspace disease of the left upper lobe. Repeat CXR showed Interval improvement in left lung airspace opacities. - Patient has tenuous respiratory status and unable to wean off BIPAP. Had increasing work of breathing with ABG showing severe hypercapnia and acidosis and transferred to ICU for closer monitoring and possible need for intubation. -S/P mechanical vent support, then extuabetd on 03/15 -Propofol and Precedex drips discontinued - Continue IV doxycycline. IV cefepime changed to Zosyn - Currently on PO prednisone, Continue taper prednisone - CXR shows mildly increased interstitial markings - Repeat cxrshowed no change in subtle reticulonodular interstitial thickening within the left lung. This could reflect an infectious process. - IV Zosyn discontinued then transition to Augmentin - Continue Augmentin for now - Completed Doxycycline course - Speech on board for issue with dysphagia- diet advanced to low fiber - Continue PT/OT eval - Consider inpatient rehab -Clinically stable and denies any significant symptoms -Remains stable and will decrease prednisone to 10 mg daily -No acute symptoms. Medically stable to be discharged (2) Influenza A: Plan: As above Finished the course of Tamiflu (3) Acute respiratory failure with hypoxia: Plan: As above Appreciate pulmonary input and recommendation (4) Left ventricular systolic dysfunction: Plan: Systolic heart failure BNP on admission 682 ECHO showed dilated left ventricle with severe global hypokinesis and estimated left ventricular ejection fraction of around 20 to 25%.Thickening of the pericardium and a small pericardial effusion consistent with chronic pericarditis. Repeat ECHO showed Moderate diffuse Left ventricular Hypokinesis with EF 35-39% Cardiology on board-appreciate input and recommendation Continue Entresto starting yesterday 03/19/22 by cardiology Cardiac medications have been readjusted by the auto heater mechanic with metoprolol succinate 25 mg/day, low-dose ARB, losartan 25 mg and continue colchicine for now Kidney function has remained stable Noted to have low blood pressure and responded well to small volume of normal saline infusion (5) Pericardial effusion: Plan: Pericardial effusion ECHO showed moderate sized, loculated anterior and right lateral pericardial effusion Continue Colchicine and prednisone 20mg daily as per recommendation Continue monitor Prednisone dose has been decreased to 10 mg daily (6) CAD (coronary artery disease): Plan: Status post cardiac stent No acute cardiac symptoms right now Continue current medications Anxiety Received intravenous Precedex and Dilaudid discontinued while in ICU Will continue with gabapentin/lorazepam Hypothyroidism Continue supplement DVT prophylaxis Subcu heparin Admission and Anticipated Discharge Date Admission Date: March 10, 2022 Subjective 03/21/2022 The patient was seen and examined in telemetry unit She has been feeling much better and denies any significant symptoms She has noted to have low blood pressure at systolics 87 this morning and received a small volume of intravenous fluid Denies any shortness of breath, palpitation, chest pain, abdominal pain nausea and vomiting 03/22/2022 The patient was seen and examined in telemetry unit She has been stable without any acute symptoms 03/23/2022 The patient was seen and examined in telemetry unit She denies any symptoms today and has been waiting to be placed No cough, wheezing and no shortness of breath 03/24/2022 The patient was seen and examined in telemetry unit She has been stable and waiting to be transferred to rehab Denies any significant symptoms Review of Systems Review of Systems: All systems reviewed and are unremarkable except as noted below Musculoskeletal: Remains generally weak and lethargic Physical Exam Physical Exam: Lying in bed comfortably Constitutional: well developed, well nourished, + ill appearing and + obese Eyes: PERRL, conjunctivae normal, anicteric sclerae ENMT: external ear and nose normal, oropharynx normal Neck: trachea midline, no thyromegaly Respiratory: no respiratory distress Auscultation: + diminished lung sounds and + crackles (Minimal crackles at the bases) Cardiovascular: Rate/Rhythm: regular rate and regular rhythm; not tachycardic Heart Sounds: normal S1 and normal S2; no murmur Extremities: no edema Gastrointestinal (Abdomen): Inspection/Auscultation: abdomen normal to inspection Percussion/Palpation: abdomen soft; abdomen nontender Musculoskeletal: No acute arthritis in any joint Neurologic: normal touch/pain/proprioception and CN's II-XI intact bilaterally Psychiatric: A+Ox3, euthymic affect Lymphatic: no cervical or axillary lymphadenopathy Results & Data Results & Data ([facility]) Vital Signs (Past 12 Hours) Vital Signs Temp Pulse Pulse Resp BP Pulse Ox 03/24/22 15:00 71 03/24/22 14:57 97/64 L 03/24/22 13:08 85/50 L 03/24/22 11:50 82/50 L 03/24/22 11:32 65 03/24/22 08:00 83 03/24/22 07:28 36.6 C 69 18 106/52 L 100 03/24/22 07:22 67 20 97 03/24/22 05:07 82 18 133/79 97 Laboratory Results Short CBC 03/24/22 Range/Units 05:46 WBC 12.43 H (4.8-10.8) K/uL Hgb 12.5 (12.0-16.0) g/dL Hct 38.3 (37-47) % Plt Count 321 (130-400) K/uL BMP 03/24/22 05:46 Sodium 139 Potassium 3.4 L Chloride 101 Carbon Dioxide 30 BUN 13 Creatinine 0.93 Glucose 93 Calcium 8.9 Medications Administered Current Inpatient Medications Acetaminophen (Acetaminophen 325 Mg Tab) 650 mg PO Q6H PRN PRN Reason: Fever/pain Stop: 04/16/22 19:22 Last Admin: 03/21/22 23:55 Dose: 650 mg Documented by: Amoxicillin/Clavulanate Potassium (Amoxicillin/Clavulanate 875 Mg Tab) 1 tab PO BIDM [facility] Stop: 03/25/22 10:44 Last Admin: 03/24/22 09:22 Dose: 1 tab Documented by: Aspirin (Aspirin 81 Mg Chew) 81 mg NG QAM [facility] Stop: 04/12/22 08:59 Last Admin: 03/24/22 09:27 Dose: 81 mg Documented by: Colchicine (Colchicine 0.6 Mg Tab) 0.6 mg PO BID [facility] Stop: 04/18/22 11:14 Last Admin: 03/24/22 09:21 Dose: 0.6 mg Documented by: Dextrose (Dextrose 50% 50 Ml Syringe) 25 - 50 ml IV UD PRN; Protocol PRN Reason: Hypoglycemia Protocol Stop: 04/13/22 06:38 Docusate Sodium (Docusate Sodium Syrup 100 Mg/10 Ml Udc) 100 mg PO BID [facility] Stop: 04/12/22 10:44 Last Admin: 03/24/22 07:46 Dose: Not Given Documented by: Fluticasone/Vilanterol (Fluticasone/Vilanterol 100/25mcg 14 Puffs/Inhaler) 1 puffs INH DAILY [facility] Stop: 04/11/22 10:59 Last Admin: 03/24/22 09:24 Dose: 1 puffs Documented by: Folic Acid (Folic Acid 1 Mg Tab) 1 mg PO QAM [facility] Stop: 04/09/22 10:31 Last Admin: 03/24/22 09:22 Dose: 1 mg Documented by: Gabapentin (Gabapentin 100 Mg Cap) 100 mg PO TID [facility] Stop: 04/13/22 08:59 Last Admin: 03/24/22 13:06 Dose: 100 mg Documented by: Glucagon (Glucagon For Inj 1 Mg Vial) 1 mg SQ UD PRN; Protocol PRN Reason: Hypoglycemia Protocol Stop: 04/13/22 06:38 Glucose (Glucose 10 Tabs/Tube) 4 - 8 tabs PO UD PRN; Protocol PRN Reason: Hypoglycemia Protocol Stop: 04/13/22 06:38 Glucose (Glucose 40% Gel 15 Gm Tube) 15 - 30 gm PO UD PRN; Protocol PRN Reason: Hypoglycemia Protocol Stop: 04/13/22 06:38 Heparin Sodium (Porcine) (Heparin Sod 5,000 Unit/0.5 Ml Vial) 5,000 units SC Q12 [facility] Stop: 04/12/22 20:59 Last Admin: 03/24/22 09:25 Dose: 5,000 units Documented by: Insulin Aspart (Insulin Aspart Per Unit) 0 units SC ACHS [facility]; Protocol Stop: 04/16/22 16:29 Last Admin: 03/24/22 11:23 Dose: Not Given Documented by: Ipratropium [place] (Ipratropium [place] Neb Soln 0.02% 2.5 Ml Vial) 0.5 mg INH Q2R PRN PRN Reason: Shortness Of Breath Or Wheezing Stop: 04/09/22 10:31 Last Admin: 03/24/22 07:22 Dose: 0.5 mg Documented by: Lansoprazole (Lansoprazole 30 Mg Soltab) 30 mg NG QAM [facility] Stop: 04/12/22 10:44 Last Admin: 03/24/22 09:22 Dose: 30 mg Documented by: Levalbuterol HCl (Levalbuterol Hcl 1.25 Mg/3 Ml Neb) 1.25 mg NEB Q2R PRN; Protocol PRN Reason: Shortness Of Breath Or Wheezing Stop: 04/09/22 10:31 Last Admin: 03/24/22 07:22 Dose: 1.25 mg Documented by: Levothyroxine Sodium (Levothyroxine Sodium 75 Mcg Tablet) 75 mcg PO DAILYBB [facility] Stop: 04/10/22 06:29 Last Admin: 03/24/22 05:52 Dose: 75 mcg Documented by: Lorazepam (Lorazepam 0.5 Mg Tab) 0.5 mg PO TID PRN PRN Reason: Anxiety Stop: 04/17/22 06:29 Last Admin: 03/24/22 10:46 Dose: 0.5 mg Documented by: Losartan Potassium (Losartan Potassium 25 Mg Tab) [facility] Stop: 04/21/22 09:44 Last Admin: 03/24/22 09:23 Dose: 25 mg Documented by: Metoprolol Succinate (Metoprolol Succ 25mg Ext Rel Tab) 25 mg PO QAM [facility] Stop: 04/17/22 14:14 Last Admin: 03/24/22 09:23 Dose: 25 mg Documented by: Miscellaneous (Carbohydrates For Hypoglycemia ) 15 - 30 gm PO UD PRN PRN Reason: Hypoglycemia Protocol Stop: 04/13/22 06:38 Morphine Sulfate (Morphine Sulfate 2 Mg/Ml Carp) 2 mg IV Q8H PRN PRN Reason: pain not relieved by po meds Stop: 03/29/22 12:29 Last Admin: 03/24/22 01:18 Dose: 2 mg Documented by: Ondansetron HCl (Ondansetron Inj 2 Mg/Ml 2 Ml Vial) 4 mg IV Q6H PRN PRN Reason: Nausea And Vomiting Stop: 04/09/22 20:41 Last Admin: 03/23/22 12:05 Dose: 4 mg Documented by: Oxycodone HCl (Oxycodone Hcl Ir 5 Mg Tab (Immediate Release)) 5 mg PO Q4H PRN PRN Reason: Pain Stop: 03/31/22 22:05 Last Admin: 03/23/22 22:26 Dose: 5 mg Documented by: Prednisone (Prednisone 10 Mg Tablet) 10 mg PO DAILY [facility] Stop: 04/23/22 08:59 Last Admin: 03/24/22 09:23 Dose: 10 mg Documented by: Pregabalin (Pregabalin 75 Mg Cap) 75 mg PO TID [facility] Stop: 04/10/22 13:59 Last Admin: 03/11/22 14:14 Dose: Not Given Documented by: Sacubitril/Valsartan (Valsartan/Sacubitril 26/24mg Tab) 1 tab PO BID [facility] Stop: 04/18/22 12:59 Last Admin: 03/21/22 07:36 Dose: 1 tab Documented by: Sennosides (Sennosides 8.8 Mg/5 Ml Udc) 8.8 mg PO BID [facility] Stop: 04/12/22 10:44 Last Admin: 03/24/22 07:46 Dose: Not Given Documented by: Tizanidine HCl (Tizanidine Hcl 4 Mg Tablet) 2 mg PO TID PRN PRN Reason: Muscle Spasm Stop: 04/09/22 10:31 Last Admin: 03/10/22 12:02 Dose: 2 mg Documented by: Tizanidine HCl (Tizanidine Hcl 4 Mg Tablet) 2 mg PO BID [facility] Stop: 04/18/22 20:59 Last Admin: 03/24/22 09:21 Dose: 2 mg Documented by: Umeclidinium [place] (Umeclidinium [place] 62.5mcg/Blister 7 Puffs/Inhaler) [facility]; Protocol Stop: 04/09/22 10:59 Last Admin: 03/24/22 09:24 Dose: 1 puffs Documented by: Vitamin D (Cholecalciferol 1,000 Units 25 Mcg Tab) 2,000 units PO QAM [facility] Stop: 04/09/22 10:31 Last Admin: 03/24/22 09:24 Dose: 2,000 units Documented by:
[2022-03-25] MEDS ORDERED: SODIUM CHLORIDE 0.9% 1000ML 250 ML IV ONE ×2 (00:40→23:45)
[2022-03-25] MEDS: oxyCODONE HCL IR 5 MG TAB (IMMEDIATE RELEASE) PO PRN ×2 (04:04→16:16)
[2022-03-25 06:32] LABS: Hematocrit (blood only) 35.7 % (37-47); Hemoglobin 11.7 g/dL (12.0-16.0); Mean Corpuscular Hemoglobin 30.7 pg (25-34); Mean Corpuscular Hgb Conc 32.8 g/dL (32-36); Mean Corpuscular Volume 93.7 fL (80-100); Mean Platelet Volume 9.9 fL (7.4-10.4); Platelet Count 277 K/uL (130-400); RDW Coefficient of Variation 15.1 % (11.5-14.5); RDW Standard Deviation 50.2 fL (36.4-46.3); Red Blood Count 3.81 M/uL (4.2-5.4); White Blood Count 11.49 K/uL (4.8-10.8)
[2022-03-25] MEDS: LEVOTHYROXINE SODIUM 75 MCG TABLET PO SCH (06:39)
[2022-03-25] MEDS: DOCUSATE SODIUM SYRUP 100 MG/10 ML UDC PO SCH ×2 (07:09→19:46)
[2022-03-25] MEDS: LOSARTAN POTASSIUM 25 MG TAB PO SCH (07:09)
[2022-03-25] MEDS: IPRATROPIUM BROMIDE NEB SOLN 0.02% 2.5 ML VIAL INH PRN ×3 (07:16→15:17)
[2022-03-25] MEDS: LEVALBUTEROL HCL 1.25 MG/3 ML NEB NEB PRN ×3 (07:16→15:17)
[2022-03-25] MEDS: INSULIN ASPART PER UNIT SC SCH ×4 (07:33→20:10)
[2022-03-25] MEDS: UMECLIDINIUM BROMIDE 62.5MCG/BLISTER 7 PUFFS/INHALER INH SCH (07:38)
[2022-03-25] MEDS: FLUTICASONE/VILANTEROL 100/25MCG 14 PUFFS/INHALER INH SCH (07:38)
[2022-03-25] MEDS: tiZANidine HCL 4 MG TABLET PO SCH ×2 (07:39→19:48)
[2022-03-25] MEDS: COLCHICINE 0.6 MG TAB PO SCH ×3 (07:39→19:54)
[2022-03-25] MEDS: CHOLECALCIFEROL 1,000 UNITS 25 MCG TAB PO SCH (07:40)
[2022-03-25] MEDS: predniSONE 10 MG TABLET PO SCH (07:40)
[2022-03-25] MEDS: FOLIC ACID 1 MG TAB PO SCH (07:40)
[2022-03-25] MEDS: AMOXICILLIN/CLAVULANATE 875 MG TAB PO SCH (07:40)
[2022-03-25] MEDS: METOPROLOL SUCC 25MG EXT REL TAB PO SCH ×2 (07:41→07:59)
[2022-03-25] MEDS: GABAPENTIN 100 MG CAP PO SCH ×3 (07:41→19:46)
[2022-03-25] MEDS: LANSOPRAZOLE 30 MG SOLTAB NG SCH (07:41)
[2022-03-25] MEDS: SENNOSIDES 8.8 MG/5 ML UDC PO SCH ×2 (07:42→19:47)
[2022-03-25] MEDS: HEPARIN SOD 5,000 UNIT/0.5 ML VIAL SC SCH ×2 (07:42→19:47)
[2022-03-25] MEDS: ASPIRIN 81 MG CHEW NG SCH (07:44)
[2022-03-25] MEDS ORDERED: SODIUM CHLORIDE 0.9% 1000ML 500 ML IV SCH (10:45)
[2022-03-25] MEDS: LORazepam 0.5 MG TAB PO PRN (11:45)
--- NOTE | 2022-03-25 14:57 | Hospitalist Progress Note ---
Date of Service March 25, 2022 Assessment & Plan (1) Acute exacerbation of chronic obstructive pulmonary disease: Plan: Acute hypoxic and hypercarbic respiratory failure COPD exacerbation Complicated by Influenza A CXR showedIll-defined nodule versus airspace disease of the left upper lobe. Repeat CXR showed Interval improvement in left lung airspace opacities. - Patient has tenuous respiratory status and unable to wean off BIPAP. Had increasing work of breathing with ABG showing severe hypercapnia and acidosis and transferred to ICU for closer monitoring and possible need for intubation. -S/P mechanical vent support, then extuabetd on 03/15 -Propofol and Precedex drips discontinued - Continue IV doxycycline. IV cefepime changed to Zosyn - Currently on PO prednisone, Continue taper prednisone - CXR shows mildly increased interstitial markings - Repeat cxrshowed no change in subtle reticulonodular interstitial thickening within the left lung. This could reflect an infectious process. - IV Zosyn discontinued then transition to Augmentin - Continue Augmentin for now - Completed Doxycycline course - Speech on board for issue with dysphagia- diet advanced to low fiber - Continue PT/OT eval - Consider inpatient rehab -Clinically stable and denies any significant symptoms -Remains stable and will decrease prednisone to 10 mg daily -No acute symptoms. Medically stable to be discharged -Have awaiting placement Low blood pressure Blood pressure medicine is on hold Will decrease the medications on discharge (2) Influenza A: Plan: As above Finished the course of Tamiflu (3) Acute respiratory failure with hypoxia: Plan: As above Appreciate pulmonary input and recommendation (4) Left ventricular systolic dysfunction: Plan: Systolic heart failure BNP on admission 682 ECHO showed dilated left ventricle with severe global hypokinesis and estimated left ventricular ejection fraction of around 20 to 25%.Thickening of the pericardium and a small pericardial effusion consistent with chronic pericarditis. Repeat ECHO showed Moderate diffuse Left ventricular Hypokinesis with EF 35-39% Cardiology on board-appreciate input and recommendation Continue Entresto starting yesterday 03/19/22 by cardiology Cardiac medications have been readjusted by the clinical operations manager with metoprolol succinate 25 mg/day, low-dose ARB, losartan 25 mg and continue colchicine for now Kidney function has remained stable Noted to have low blood pressure and responded well to small volume of normal saline infusion (5) Pericardial effusion: Plan: Pericardial effusion ECHO showed moderate sized, loculated anterior and right lateral pericardial effusion Continue Colchicine and prednisone 20mg daily as per recommendation Continue monitor Prednisone dose has been decreased to 10 mg daily (6) CAD (coronary artery disease): Plan: Status post cardiac stent No acute cardiac symptoms right now Continue current medications Anxiety Received intravenous Precedex and Dilaudid discontinued while in ICU Will continue with gabapentin/lorazepam Has been very anxious as she is not being accepted yet Hypothyroidism Continue supplement DVT prophylaxis Subcu heparin Admission and Anticipated Discharge Date Admission Date: March 10, 2022 Subjective 03/21/2022 The patient was seen and examined in telemetry unit She has been feeling much better and denies any significant symptoms She has noted to have low blood pressure at systolics 87 this morning and received a small volume of intravenous fluid Denies any shortness of breath, palpitation, chest pain, abdominal pain nausea and vomiting 03/22/2022 The patient was seen and examined in telemetry unit She has been stable without any acute symptoms 03/23/2022 The patient was seen and examined in telemetry unit She denies any symptoms today and has been waiting to be placed No cough, wheezing and no shortness of breath 03/24/2022 The patient was seen and examined in telemetry unit She has been stable and waiting to be transferred to rehab Denies any significant symptoms 03/25/2022 The patient was seen and examined in telemetry unit She has been stable and is very anxious to get out of the hospital She has not been accepted yet Has been running low blood pressure and required a small bolus today Review of Systems Review of Systems: All systems reviewed and are unremarkable except as noted below Musculoskeletal: Remains generally weak and lethargic Physical Exam Physical Exam: Lying in bed comfortably Constitutional: well developed, well nourished, + ill appearing and + obese Eyes: PERRL, conjunctivae normal, anicteric sclerae ENMT: external ear and nose normal, oropharynx normal Neck: trachea midline, no thyromegaly Respiratory: no respiratory distress Auscultation: + diminished lung sounds and + crackles (Minimal crackles at the bases) Cardiovascular: Rate/Rhythm: regular rate and regular rhythm; not tachycardic Heart Sounds: normal S1 and normal S2; no murmur Extremities: no edema Gastrointestinal (Abdomen): Inspection/Auscultation: abdomen normal to inspection Percussion/Palpation: abdomen soft; abdomen nontender Musculoskeletal: No acute arthritis in any joint Neurologic: normal touch/pain/proprioception and CN's II-XI intact bilaterally Psychiatric: A+Ox3, euthymic affect Lymphatic: no cervical or axillary lymphadenopathy Results & Data Results & Data ([facility]) Vital Signs (Past 12 Hours) Vital Signs Temp Pulse Pulse Resp BP BP Pulse Ox 03/25/22 11:33 36.8 C 79 18 93/57 L 94 03/25/22 11:08 90/55 L 03/25/22 10:57 78 16 96 03/25/22 08:00 80 03/25/22 07:46 80 91/46 L 95 03/25/22 07:17 79 16 95 03/25/22 03:58 36.8 C 77 18 118/64 99 Laboratory Results Short CBC 03/25/22 Range/Units 05:46 WBC 11.49 H (4.8-10.8) K/uL Hgb 11.7 L (12.0-16.0) g/dL Hct 35.7 L (37-47) % Plt Count 277 (130-400) K/uL Medications Administered Current Inpatient Medications Acetaminophen (Acetaminophen 325 Mg Tab) 650 mg PO Q6H PRN PRN Reason: Fever/pain Stop: 04/16/22 19:22 Last Admin: 03/21/22 23:55 Dose: 650 mg Documented by: Aspirin (Aspirin 81 Mg Chew) 81 mg NG QAM [facility] Stop: 04/12/22 08:59 Last Admin: 03/25/22 07:44 Dose: 81 mg Documented by: Colchicine (Colchicine 0.6 Mg Tab) 0.6 mg PO BID [facility] Stop: 04/18/22 11:14 Last Admin: 03/25/22 07:39 Dose: 0.6 mg Documented by: Dextrose (Dextrose 50% 50 Ml Syringe) 25 - 50 ml IV UD PRN; Protocol PRN Reason: Hypoglycemia Protocol Stop: 04/13/22 06:38 Docusate Sodium (Docusate Sodium Syrup 100 Mg/10 Ml Udc) 100 mg PO BID [facility] Stop: 04/12/22 10:44 Last Admin: 03/25/22 07:09 Dose: Not Given Documented by: Fluticasone/Vilanterol (Fluticasone/Vilanterol 100/25mcg 14 Puffs/Inhaler) 1 puffs INH DAILY [facility] Stop: 04/11/22 10:59 Last Admin: 03/25/22 07:38 Dose: 1 puffs Documented by: Folic Acid (Folic Acid 1 Mg Tab) 1 mg PO QAM [facility] Stop: 04/09/22 10:31 Last Admin: 03/25/22 07:40 Dose: 1 mg Documented by: Gabapentin (Gabapentin 100 Mg Cap) 100 mg PO TID [facility] Stop: 04/13/22 08:59 Last Admin: 03/25/22 13:05 Dose: 100 mg Documented by: Glucagon (Glucagon For Inj 1 Mg Vial) 1 mg SQ UD PRN; Protocol PRN Reason: Hypoglycemia Protocol Stop: 04/13/22 06:38 Glucose (Glucose 10 Tabs/Tube) 4 - 8 tabs PO UD PRN; Protocol PRN Reason: Hypoglycemia Protocol Stop: 04/13/22 06:38 Glucose (Glucose 40% Gel 15 Gm Tube) 15 - 30 gm PO UD PRN; Protocol PRN Reason: Hypoglycemia Protocol Stop: 04/13/22 06:38 Heparin Sodium (Porcine) (Heparin Sod 5,000 Unit/0.5 Ml Vial) 5,000 units SC Q12 [facility] Stop: 04/12/22 20:59 Last Admin: 03/25/22 07:42 Dose: 5,000 units Documented by: Insulin Aspart (Insulin Aspart Per Unit) 0 units SC ACHS [facility]; Protocol Stop: 04/16/22 16:29 Last Admin: 03/25/22 11:40 Dose: 7 units Documented by: Ipratropium [place] (Ipratropium [place] Neb Soln 0.02% 2.5 Ml Vial) 0.5 mg INH Q2R PRN PRN Reason: Shortness Of Breath Or Wheezing Stop: 04/09/22 10:31 Last Admin: 03/25/22 10:57 Dose: 0.5 mg Documented by: Lansoprazole (Lansoprazole 30 Mg Soltab) 30 mg NG QAM [facility] Stop: 04/12/22 10:44 Last Admin: 03/25/22 07:41 Dose: 30 mg Documented by: Levalbuterol HCl (Levalbuterol Hcl 1.25 Mg/3 Ml Neb) 1.25 mg NEB Q2R PRN; Protocol PRN Reason: Shortness Of Breath Or Wheezing Stop: 04/09/22 10:31 Last Admin: 03/25/22 10:57 Dose: 1.25 mg Documented by: Levothyroxine Sodium (Levothyroxine Sodium 75 Mcg Tablet) 75 mcg PO DAILYBB [facility] Stop: 04/10/22 06:29 Last Admin: 03/25/22 06:39 Dose: 75 mcg Documented by: Lorazepam (Lorazepam 0.5 Mg Tab) 0.5 mg PO TID PRN PRN Reason: Anxiety Stop: 04/17/22 06:29 Last Admin: 03/25/22 11:45 Dose: 0.5 mg Documented by: Losartan Potassium (Losartan Potassium 25 Mg Tab) 25 mg PO QAM [facility] Stop: 04/21/22 09:44 Last Admin: 03/25/22 07:09 Dose: Not Given Documented by: Metoprolol Succinate (Metoprolol Succ 25mg Ext Rel Tab) [facility] [place] Stop: 04/17/22 14:14 Last Admin: 03/25/22 07:59 Dose: Not Given Documented by: Miscellaneous (Carbohydrates For Hypoglycemia ) 15 - 30 gm PO UD PRN PRN Reason: Hypoglycemia Protocol Stop: 04/13/22 06:38 Morphine Sulfate (Morphine Sulfate 2 Mg/Ml Carp) 2 mg IV Q8H PRN PRN Reason: pain not relieved by po meds Stop: 03/29/22 12:29 Last Admin: 03/24/22 01:18 Dose: 2 mg Documented by: Ondansetron HCl (Ondansetron Inj 2 Mg/Ml 2 Ml Vial) 4 mg IV Q6H PRN PRN Reason: Nausea And Vomiting Stop: 04/09/22 20:41 Last Admin: 03/23/22 12:05 Dose: 4 mg Documented by: Oxycodone HCl (Oxycodone Hcl Ir 5 Mg Tab (Immediate Release)) 5 mg PO Q4H PRN PRN Reason: Pain Stop: 03/31/22 22:05 Last Admin: 03/25/22 04:04 Dose: 5 mg Documented by: Prednisone (Prednisone 10 Mg Tablet) 10 mg PO DAILY [facility] Stop: 04/23/22 08:59 Last Admin: 03/25/22 07:40 Dose: 10 mg Documented by: Pregabalin (Pregabalin 75 Mg Cap) 75 mg PO TID [facility] Stop: 04/10/22 13:59 Last Admin: 03/11/22 14:14 Dose: Not Given Documented by: Sacubitril/Valsartan (Valsartan/Sacubitril 26/24mg Tab) 1 tab PO BID [facility] Stop: 04/18/22 12:59 Last Admin: 03/21/22 07:36 Dose: 1 tab Documented by: Sennosides (Sennosides 8.8 Mg/5 Ml Udc) 8.8 mg PO BID [facility] Stop: 04/12/22 10:44 Last Admin: 03/25/22 07:42 Dose: Not Given Documented by: Tizanidine HCl (Tizanidine Hcl 4 Mg Tablet) 2 mg PO TID PRN PRN Reason: Muscle Spasm Stop: 04/09/22 10:31 Last Admin: 03/10/22 12:02 Dose: 2 mg Documented by: Tizanidine HCl (Tizanidine Hcl 4 Mg Tablet) 2 mg PO BID [facility] Stop: 04/18/22 20:59 Last Admin: 03/25/22 07:39 Dose: 2 mg Documented by: Umeclidinium [place] (Umeclidinium [place] 62.5mcg/Blister 7 Puffs/Inhaler) 1 puffs INH [facility]; Protocol Stop: 04/09/22 10:59 Last Admin: 03/25/22 07:38 Dose: 1 puffs Documented by: Vitamin D (Cholecalciferol 1,000 Units 25 Mcg Tab) 2,000 units PO QAM [facility] Stop: 04/09/22 10:31 Last Admin: 03/25/22 07:40 Dose: 2,000 units Documented by:
[2022-03-25] MEDS: MoRPHine SULFATE 2 MG/ML CARP IV PRN (19:37)
[2022-03-26] MEDS: oxyCODONE HCL IR 5 MG TAB (IMMEDIATE RELEASE) PO PRN ×3 (01:22→20:37)
[2022-03-26] MEDS: LEVOTHYROXINE SODIUM 75 MCG TABLET PO SCH (06:10)
[2022-03-26] MEDS: LEVALBUTEROL HCL 1.25 MG/3 ML NEB NEB PRN ×2 (07:15→15:23)
[2022-03-26] MEDS: IPRATROPIUM BROMIDE NEB SOLN 0.02% 2.5 ML VIAL INH PRN ×2 (07:15→15:23)
[2022-03-26] MEDS: INSULIN ASPART PER UNIT SC SCH ×4 (08:32→20:55)
[2022-03-26] MEDS: ONDANSETRON INJ 2 MG/ML 2 ML VIAL IV PRN (08:32)
[2022-03-26] MEDS: LORazepam 0.5 MG TAB PO PRN ×3 (09:48→20:37)
[2022-03-26] MEDS: COLCHICINE 0.6 MG TAB PO SCH ×2 (10:00→20:37)
[2022-03-26] MEDS: GABAPENTIN 100 MG CAP PO SCH ×3 (10:00→20:37)
[2022-03-26] MEDS: FOLIC ACID 1 MG TAB PO SCH (10:00)
[2022-03-26] MEDS: ASPIRIN 81 MG CHEW NG SCH (10:00)
[2022-03-26] MEDS: CHOLECALCIFEROL 1,000 UNITS 25 MCG TAB PO SCH (10:00)
[2022-03-26] MEDS: LANSOPRAZOLE 30 MG SOLTAB NG SCH (10:01)
[2022-03-26] MEDS: LOSARTAN POTASSIUM 25 MG TAB PO SCH (10:02)
[2022-03-26] MEDS: METOPROLOL SUCC 25MG EXT REL TAB PO SCH (10:02)
[2022-03-26] MEDS: tiZANidine HCL 4 MG TABLET PO SCH ×2 (10:02→20:37)
[2022-03-26] MEDS: predniSONE 10 MG TABLET PO SCH (10:02)
[2022-03-26] MEDS: HEPARIN SOD 5,000 UNIT/0.5 ML VIAL SC SCH ×2 (10:07→20:33)
[2022-03-26] MEDS: DOCUSATE SODIUM SYRUP 100 MG/10 ML UDC PO SCH ×2 (10:08→20:30)
[2022-03-26] MEDS: FLUTICASONE/VILANTEROL 100/25MCG 14 PUFFS/INHALER INH SCH (10:08)
[2022-03-26] MEDS: SENNOSIDES 8.8 MG/5 ML UDC PO SCH ×2 (10:08→20:31)
[2022-03-26] MEDS: UMECLIDINIUM BROMIDE 62.5MCG/BLISTER 7 PUFFS/INHALER INH SCH (10:09)
--- NOTE | 2022-03-26 13:37 | Electrocardiogram Report ---
Test Reason : Blood Pressure : / mmHG Vent. Rate : 082 BPM Atrial Rate : 082 BPM P-R Int : 140 ms QRS Dur : 094 ms QT Int : 340 ms P-R-T Axes : 086 086 102 degrees QTc Int : 397 ms Normal sinus rhythm with sinus arrhythmia Abnormal ECG When compared with ECG of 21-MAR-2022 05:47, No significant change was found Confirmed by Oswaldo Avalos ([id number]) on 03/26/2022 1:37:03 PM Referred By: REFERRED SELF Confirmed By:Oswaldo Avalos
--- NOTE | 2022-03-26 15:17 | Hospitalist Progress Note ---
Date of Service March 26, 2022 Assessment & Plan (1) Acute exacerbation of chronic obstructive pulmonary disease: Plan: Acute hypoxic and hypercarbic respiratory failure COPD exacerbation Complicated by Influenza A CXR showedIll-defined nodule versus airspace disease of the left upper lobe. Repeat CXR showed Interval improvement in left lung airspace opacities. - Patient has tenuous respiratory status and unable to wean off BIPAP. Had increasing work of breathing with ABG showing severe hypercapnia and acidosis and transferred to ICU for closer monitoring and possible need for intubation. -S/P mechanical vent support, then extuabetd on 03/15 -Propofol and Precedex drips discontinued - Continue IV doxycycline. IV cefepime changed to Zosyn - Currently on PO prednisone, Continue taper prednisone - CXR shows mildly increased interstitial markings - Repeat cxrshowed no change in subtle reticulonodular interstitial thickening within the left lung. This could reflect an infectious process. - IV Zosyn discontinued then transition to Augmentin - Continue Augmentin for now - Completed Doxycycline course - Speech on board for issue with dysphagia- diet advanced to low fiber - Continue PT/OT eval - Consider inpatient rehab -Clinically stable and denies any significant symptoms -Remains stable and will decrease prednisone to 10 mg daily -No acute symptoms. Medically stable to be discharged -Has had PT evaluation and recommended rehab-awaiting placement Low blood pressure Blood pressure medicine is on hold Will decrease the medications on discharge We will decrease the blood pressure medication (2) Influenza A: Plan: As above Finished the course of Tamiflu (3) Acute respiratory failure with hypoxia: Plan: As above Appreciate pulmonary input and recommendation (4) Left ventricular systolic dysfunction: Plan: Systolic heart failure BNP on admission 682 ECHO showed dilated left ventricle with severe global hypokinesis and estimated left ventricular ejection fraction of around 20 to 25%.Thickening of the pericardium and a small pericardial effusion consistent with chronic pericarditis. Repeat ECHO showed Moderate diffuse Left ventricular Hypokinesis with EF 35-39% Cardiology on board-appreciate input and recommendation Continue Entresto starting yesterday 03/19/22 by cardiology Cardiac medications have been readjusted by the paving contractor with metoprolol succinate 25 mg/day, low-dose ARB, losartan 25 mg and continue colchicine for now Kidney function has remained stable Noted to have low blood pressure and responded well to small volume of normal saline infusion Was advised to drink more fluid (5) Pericardial effusion: Plan: Pericardial effusion ECHO showed moderate sized, loculated anterior and right lateral pericardial effusion Continue Colchicine and prednisone 20mg daily as per recommendation Continue monitor Prednisone dose has been decreased to 10 mg daily Will discontinue prednisone after about 2 to 3 days (6) CAD (coronary artery disease): Plan: Status post cardiac stent No acute cardiac symptoms right now Continue current medications Anxiety Received intravenous Precedex and Dilaudid discontinued while in ICU Will continue with gabapentin/lorazepam Has been very anxious as she is not being accepted yet Hypothyroidism Continue supplement DVT prophylaxis Subcu heparin Admission and Anticipated Discharge Date Admission Date: March 10, 2022 Subjective 03/21/2022 The patient was seen and examined in telemetry unit She has been feeling much better and denies any significant symptoms She has noted to have low blood pressure at systolics 87 this morning and received a small volume of intravenous fluid Denies any shortness of breath, palpitation, chest pain, abdominal pain nausea and vomiting 03/22/2022 The patient was seen and examined in telemetry unit She has been stable without any acute symptoms 03/23/2022 The patient was seen and examined in telemetry unit She denies any symptoms today and has been waiting to be placed No cough, wheezing and no shortness of breath 03/24/2022 The patient was seen and examined in telemetry unit She has been stable and waiting to be transferred to rehab Denies any significant symptoms 03/25/2022 The patient was seen and examined in telemetry unit She has been stable and is very anxious to get out of the hospital She has not been accepted yet Has been running low blood pressure and required a small bolus today 03/26/2022 The patient was seen and examined in telemetry unit He has been very upset this morning when she was told that she is doing pretty good and does not require any rehab Things are settling down right now Denies any significant symptoms but is noted to have low blood pressure without any symptoms We will get PT reevaluation Review of Systems Review of Systems: All systems reviewed and are unremarkable except as noted below Musculoskeletal: Remains generally weak and lethargic Physical Exam Physical Exam: Lying in bed comfortably Constitutional: well developed, well nourished, + ill appearing and + obese Eyes: PERRL, conjunctivae normal, anicteric sclerae ENMT: external ear and nose normal, oropharynx normal Neck: trachea midline, no thyromegaly Respiratory: no respiratory distress Auscultation: + diminished lung sounds and + crackles (Minimal crackles at the bases) Cardiovascular: Rate/Rhythm: regular rate and regular rhythm; not tachycardic Heart Sounds: normal S1 and normal S2; no murmur Extremities: no edema Gastrointestinal (Abdomen): Inspection/Auscultation: abdomen normal to inspection Percussion/Palpation: abdomen soft; abdomen nontender Musculoskeletal: No acute arthritis in any joint Neurologic: normal touch/pain/proprioception and CN's II-XI intact bilaterally Psychiatric: A+Ox3, euthymic affect Lymphatic: no cervical or axillary lymphadenopathy Results & Data Results & Data ([facility]) Vital Signs (Past 12 Hours) Vital Signs Temp Pulse Resp BP Pulse Ox 03/26/22 12:35 36.9 C 83 16 81/47 L 97 03/26/22 11:50 36.7 C 80 18 72/40 L 98 03/26/22 09:57 104 H 20 126/99 95 03/26/22 07:21 36.8 C 73 18 97/64 L 100 03/26/22 07:16 75 19 96 03/26/22 04:09 37 C 69 18 110/59 L 96 Medications Administered Current Inpatient Medications Acetaminophen (Acetaminophen 325 Mg Tab) 650 mg PO Q6H PRN PRN Reason: Fever/pain Stop: 04/16/22 19:22 Last Admin: 03/21/22 23:55 Dose: 650 mg Documented by: Aspirin (Aspirin 81 Mg Chew) 81 mg NG QAM [facility] Stop: 04/12/22 08:59 Last Admin: 03/26/22 10:00 Dose: 81 mg Documented by: Colchicine (Colchicine 0.6 Mg Tab) 0.6 mg PO BID [facility] Stop: 04/18/22 11:14 Last Admin: 03/26/22 10:00 Dose: 0.6 mg Documented by: Dextrose (Dextrose 50% 50 Ml Syringe) 25 - 50 ml IV UD PRN; Protocol PRN Reason: Hypoglycemia Protocol Stop: 04/13/22 06:38 Docusate Sodium (Docusate Sodium Syrup 100 Mg/10 Ml Udc) 100 mg PO BID [facility] Stop: 04/12/22 10:44 Last Admin: 03/26/22 10:08 Dose: Not Given Documented by: Fluticasone/Vilanterol (Fluticasone/Vilanterol 100/25mcg 14 Puffs/Inhaler) 1 pu ffs INH DAILY [facility] Stop: 04/11/22 10:59 Last Admin: 03/26/22 10:08 Dose: 1 puffs Documented by: Folic Acid (Folic Acid 1 Mg Tab) 1 mg PO QAM [facility] Stop: 04/09/22 10:31 Last Admin: 03/26/22 10:00 Dose: 1 mg Documented by: Gabapentin (Gabapentin 100 Mg Cap) 100 mg PO TID [facility] Stop: 04/13/22 08:59 Last Admin: 03/26/22 14:21 Dose: 100 mg Documented by: Glucagon (Glucagon For Inj 1 Mg Vial) 1 mg SQ UD PRN; Protocol PRN Reason: Hypoglycemia Protocol Stop: 04/13/22 06:38 Glucose (Glucose 10 Tabs/Tube) 4 - 8 tabs PO UD PRN; Protocol PRN Reason: Hypoglycemia Protocol Stop: 04/13/22 06:38 Glucose (Glucose 40% Gel 15 Gm Tube) 15 - 30 gm PO UD PRN; Protocol PRN Reason: Hypoglycemia Protocol Stop: 04/13/22 06:38 Heparin Sodium (Porcine) (Heparin Sod 5,000 Unit/0.5 Ml Vial) 5,000 units SC Q12 [facility] Stop: 04/12/22 20:59 Last Admin: 03/26/22 10:07 Dose: 5,000 units Documented by: Insulin Aspart (Insulin Aspart Per Unit) 0 units SC ACHS [facility]; Protocol Stop: 04/16/22 16:29 Last Admin: 03/26/22 12:30 Dose: 3 units Documented by: Ipratropium [place] (Ipratropium [place] Neb Soln 0.02% 2.5 Ml Vial) 0.5 mg INH Q2R PRN PRN Reason: Shortness Of Breath Or Wheezing Stop: 04/09/22 10:31 Last Admin: 03/26/22 07:15 Dose: 0.5 mg Documented by: Lansoprazole (Lansoprazole 30 Mg Soltab) 30 mg NG QAM [facility] Stop: 04/12/22 10:44 Last Admin: 03/26/22 10:01 Dose: 30 mg Documented by: Levalbuterol HCl (Levalbuterol Hcl 1.25 Mg/3 Ml Neb) 1.25 mg NEB Q2R PRN; Protocol PRN Reason: Shortness Of Breath Or Wheezing Stop: 04/09/22 10:31 Last Admin: 03/26/22 07:15 Dose: 1.25 mg Documented by: Levothyroxine Sodium (Levothyroxine Sodium 75 Mcg Tablet) 75 mcg PO DAILYBB [facility] Stop: 04/10/22 06:29 Last Admin: 03/26/22 06:10 Dose: 75 mcg Documented by: Lorazepam (Lorazepam 0.5 Mg Tab) 0.5 mg PO TID PRN PRN Reason: Anxiety Stop: 04/17/22 06:29 Last Admin: 03/26/22 14:30 Dose: 0.5 mg Documented by: Losartan Potassium (Losartan Potassium 25 Mg Tab) [facility]: 04/21/22 09:44 Last Admin: 03/26/22 10:02 Dose: 25 mg Documented by: Metoprolol Succinate (Metoprolol Succ 25mg Ext Rel Tab) [facility] Stop: 04/17/22 14:14 Last Admin: 03/26/22 10:02 Dose: 25 mg Documented by: Miscellaneous (Carbohydrates For Hypoglycemia ) 15 - 30 gm PO UD PRN PRN Reason: Hypoglycemia Protocol Stop: 04/13/22 06:38 Morphine Sulfate (Morphine Sulfate 2 Mg/Ml Carp) 2 mg IV Q8H PRN PRN Reason: pain not relieved by po meds Stop: 03/29/22 12:29 Last Admin: 03/25/22 19:37 Dose: 2 mg Documented by: Ondansetron HCl (Ondansetron Inj 2 Mg/Ml 2 Ml Vial) 4 mg IV Q6H PRN PRN Reason: Nausea And Vomiting Stop: 04/09/22 20:41 Last Admin: 03/26/22 08:32 Dose: 4 mg Documented by: Oxycodone HCl (Oxycodone Hcl Ir 5 Mg Tab (Immediate Release)) 5 mg PO Q4H PRN PRN Reason: Pain Stop: 03/31/22 22:05 Last Admin: 03/26/22 01:22 Dose: 5 mg Documented by: Prednisone (Prednisone 10 Mg Tablet) 10 mg PO DAILY [facility] Stop: 04/23/22 08:59 Last Admin: 03/26/22 10:02 Dose: 10 mg Documented by: Pregabalin (Pregabalin 75 Mg Cap) 75 mg PO TID [facility] Stop: 04/10/22 13:59 Last Admin: 03/11/22 14:14 Dose: Not Given Documented by: Sacubitril/Valsartan (Valsartan/Sacubitril 26/24mg Tab) 1 tab PO BID [facility] Stop: 04/18/22 12:59 Last Admin: 03/21/22 07:36 Dose: 1 tab Documented by: Sennosides (Sennosides 8.8 Mg/5 Ml Udc) 8.8 mg PO BID [facility] Stop: 04/12/22 10:44 Last Admin: 03/26/22 10:08 Dose: Not Given Documented by: Tizanidine HCl (Tizanidine Hcl 4 Mg Tablet) 2 mg PO TID PRN PRN Reason: Muscle Spasm Stop: 04/09/22 10:31 Last Admin: 03/10/22 12:02 Dose: 2 mg Documented by: Tizanidine HCl (Tizanidine Hcl 4 Mg Tablet) 2 mg PO BID [facility] Stop: 04/18/22 20:59 Last Admin: 03/26/22 10:02 Dose: 2 mg Documented by: Umeclidinium [place] (Umeclidinium [place] 62.5mcg/Blister 7 Puffs/Inhaler) 1 puffs INH [facility]; Protocol Stop: 04/09/22 10:59 Last Admin: 03/26/22 10:09 Dose: 1 puffs Documented by: Vitamin D (Cholecalciferol 1,000 Units 25 Mcg Tab) 2,000 [facility] Stop: 04/09/22 10:31 Last Admin: 03/26/22 10:00 Dose: 2,000 units Documented by:
[2022-03-27] MEDS: oxyCODONE HCL IR 5 MG TAB (IMMEDIATE RELEASE) PO PRN ×3 (00:53→16:16)
[2022-03-27] MEDS: LEVOTHYROXINE SODIUM 75 MCG TABLET PO SCH (05:53)
[2022-03-27 06:38] LABS: Basophils # (auto) 0.01 K/uL (0-0.2); Basophils % (auto) 0.1 %; Eosinophils # (auto) 0.15 K/uL (0-0.5); Eosinophils % (auto) 1.4 %; Hemoglobin 12.2 g/dL (12.0-16.0); Immature Granulocytes # (auto) 0.02 K/uL (0.00-0.02); Immature Granulocytes % (auto) 0.2 %; Lymphocytes # (auto) 4.18 K/uL (1.2-3.4); Lymphocytes % (auto) 39.4 %; Mean Corpuscular Hemoglobin 30.3 pg (25-34); Mean Corpuscular Hgb Conc 32.1 g/dL (32-36); Mean Corpuscular Volume 94.3 fL (80-100); Mean Platelet Volume 9.7 fL (7.4-10.4); Monocytes # (auto) 0.57 K/uL (0.11-0.59); Monocytes % (auto) 5.4 %; Neutrophils # (auto) 5.69 K/uL (1.4-6.5); Neutrophils % (auto) 53.5 %; Platelet Count 250 K/uL (130-400); RDW Coefficient of Variation 15.3 % (11.5-14.5); RDW Standard Deviation 52.1 fL (36.4-46.3); Red Blood Count 4.03 M/uL (4.2-5.4); White Blood Count 10.62 K/uL (4.8-10.8)
[2022-03-27 06:52] LABS: BUN Creatinine Ratio 10.1 (10-20); Calcium 8.9 mg/dl (8.5-10.1); Creatinine Clr Calc Pharmacy 63.6 ml/min; Est GFR (African American) 83.4 ml/min; Est GFR (Non-African American) 71.9 ml/min; Magnesium 1.7 mg/dl (1.7-2.4); Potassium 3.5 mmol/L (3.5-5.1)
[2022-03-27] MEDS: IPRATROPIUM BROMIDE NEB SOLN 0.02% 2.5 ML VIAL INH PRN (07:11)
[2022-03-27] MEDS: LEVALBUTEROL HCL 1.25 MG/3 ML NEB NEB PRN (07:11)
[2022-03-27] MEDS: DOCUSATE SODIUM SYRUP 100 MG/10 ML UDC PO SCH ×3 (08:39→20:22)
[2022-03-27] MEDS: SENNOSIDES 8.8 MG/5 ML UDC PO SCH ×2 (08:39→20:22)
[2022-03-27] MEDS: predniSONE 10 MG TABLET PO SCH (08:41)
[2022-03-27] MEDS: tiZANidine HCL 4 MG TABLET PO SCH ×2 (08:42→20:16)
[2022-03-27] MEDS: METOPROLOL SUCC 25MG EXT REL TAB PO SCH (08:43)
[2022-03-27] MEDS: CHOLECALCIFEROL 1,000 UNITS 25 MCG TAB PO SCH (08:43)
[2022-03-27] MEDS: HEPARIN SOD 5,000 UNIT/0.5 ML VIAL SC SCH ×2 (08:44→20:16)
[2022-03-27] MEDS: COLCHICINE 0.6 MG TAB PO SCH ×2 (08:45→20:16)
[2022-03-27] MEDS: GABAPENTIN 100 MG CAP PO SCH ×3 (08:45→20:16)
[2022-03-27] MEDS: FOLIC ACID 1 MG TAB PO SCH (08:46)
[2022-03-27] MEDS: FLUTICASONE/VILANTEROL 100/25MCG 14 PUFFS/INHALER INH SCH (08:47)
[2022-03-27] MEDS: LANSOPRAZOLE 30 MG SOLTAB NG SCH (08:48)
[2022-03-27] MEDS: LOSARTAN POTASSIUM 25 MG TAB PO SCH (08:48)
[2022-03-27] MEDS: UMECLIDINIUM BROMIDE 62.5MCG/BLISTER 7 PUFFS/INHALER INH SCH (08:49)
[2022-03-27] MEDS: ASPIRIN 81 MG CHEW NG SCH (08:57)
[2022-03-27] MEDS: LORazepam 0.5 MG TAB PO PRN ×3 (08:57→23:51)
[2022-03-27] MEDS: INSULIN ASPART PER UNIT SC SCH ×4 (09:58→21:04)
--- NOTE | 2022-03-27 14:01 | Hospitalist Progress Note ---
Date of Service March 27, 2022 Assessment & Plan (1) Acute exacerbation of chronic obstructive pulmonary disease: Plan: Acute hypoxic and hypercarbic respiratory failure COPD exacerbation Complicated by Influenza A CXR showedIll-defined nodule versus airspace disease of the left upper lobe. Repeat CXR showed Interval improvement in left lung airspace opacities. - Patient has tenuous respiratory status and unable to wean off BIPAP. Had increasing work of breathing with ABG showing severe hypercapnia and acidosis and transferred to ICU for closer monitoring and possible need for intubation. -S/P mechanical vent support, then extuabetd on 03/15 -Propofol and Precedex drips discontinued - Continue IV doxycycline. IV cefepime changed to Zosyn - Currently on PO prednisone, Continue taper prednisone - CXR shows mildly increased interstitial markings - Repeat cxrshowed no change in subtle reticulonodular interstitial thickening within the left lung. This could reflect an infectious process. - IV Zosyn discontinued then transition to Augmentin - Continue Augmentin for now - Completed Doxycycline course - Speech on board for issue with dysphagia- diet advanced to low fiber - Continue PT/OT eval - Consider inpatient rehab -Clinically stable and denies any significant symptoms -Remains stable and will decrease prednisone to 10 mg daily -No acute symptoms. Medically stable to be discharged -Has had PT evaluation and recommended rehab-awaiting placement -Continue physical therapy continue physical therapy Low blood pressure Blood pressure medicine is on hold Will decrease the medications on discharge We will decrease the blood pressure medication Blood pressure remains stable (2) Influenza A: Plan: As above Finished the course of Tamiflu (3) Acute respiratory failure with hypoxia: Plan: As above Appreciate pulmonary input and recommendation (4) Left ventricular systolic dysfunction: Plan: Systolic heart failure BNP on admission 682 ECHO showed dilated left ventricle with severe global hypokinesis and estimated left ventricular ejection fraction of around 20 to 25%.Thickening of the pericardium and a small pericardial effusion consistent with chronic pericarditis. Repeat ECHO showed Moderate diffuse Left ventricular Hypokinesis with EF 35-39% Cardiology on board-appreciate input and recommendation Continue Entresto starting yesterday 03/19/22 by cardiology Cardiac medications have been readjusted by the esl teacher with metoprolol succinate 25 mg/day, low-dose ARB, losartan 25 mg and continue colchicine for now Kidney function has remained stable Noted to have low blood pressure and responded well to small volume of normal saline infusion Was advised to drink more fluid (5) Pericardial effusion: Plan: Pericardial effusion ECHO showed moderate sized, loculated anterior and right lateral pericardial effusion Continue Colchicine and prednisone 20mg daily as per recommendation Continue monitor Prednisone dose has been decreased to 10 mg daily Will discontinue prednisone after about 2 to 3 days (6) CAD (coronary artery disease): Plan: Status post cardiac stent No acute cardiac symptoms right now Continue current medications Anxiety Received intravenous Precedex and Dilaudid discontinued while in ICU Will continue with gabapentin/lorazepam Has been very anxious as she is not being accepted yet Hypothyroidism Continue supplement DVT prophylaxis Subcu heparin Admission and Anticipated Discharge Date Admission Date: March 10, 2022 Subjective 03/21/2022 The patient was seen and examined in telemetry unit She has been feeling much better and denies any significant symptoms She has noted to have low blood pressure at systolics 87 this morning and received a small volume of intravenous fluid Denies any shortness of breath, palpitation, chest pain, abdominal pain nausea and vomiting 03/22/2022 The patient was seen and examined in telemetry unit She has been stable without any acute symptoms 03/23/2022 The patient was seen and examined in telemetry unit She denies any symptoms today and has been waiting to be placed No cough, wheezing and no shortness of breath 03/24/2022 The patient was seen and examined in telemetry unit She has been stable and waiting to be transferred to rehab Denies any significant symptoms 03/25/2022 The patient was seen and examined in telemetry unit She has been stable and is very anxious to get out of the hospital She has not been accepted yet Has been running low blood pressure and required a small bolus today 03/26/2022 The patient was seen and examined in telemetry unit He has been very upset this morning when she was told that she is doing pretty good and does not require any rehab Things are settling down right now Denies any significant symptoms but is noted to have low blood pressure without any symptoms We will get PT reevaluation 03/27/2022 Patient was seen and examined in telemetry unit She has been getting physical therapy and recommendation was to discharge to rehab Denies any symptoms except weakness Blood pressure seems to be stable Review of Systems Review of Systems: All systems reviewed and are unremarkable except as noted below Musculoskeletal: Remains generally weak and lethargic Physical Exam Physical Exam: Lying in bed comfortably Constitutional: well developed, well nourished, + ill appearing and + obese Eyes: PERRL, conjunctivae normal, anicteric sclerae ENMT: external ear and nose normal, oropharynx normal Neck: trachea midline, no thyromegaly Respiratory: no respiratory distress Auscultation: + diminished lung sounds and + crackles (Minimal crackles at the bases) Cardiovascular: Rate/Rhythm: regular rate and regular rhythm; not tachycardic Heart Sounds: normal S1 and normal S2; no murmur Extremities: no edema Gastrointestinal (Abdomen): Inspection/Auscultation: abdomen normal to inspection Percussion/Palpation: abdomen soft; abdomen nontender Musculoskeletal: No acute arthritis in any joint Neurologic: normal touch/pain/proprioception and CN's II-XI intact bilaterally Psychiatric: A+Ox3, euthymic affect Lymphatic: no cervical or axillary lymphadenopathy Results & Data Results & Data ([facility]) Vital Signs (Past 12 Hours) Vital Signs Temp Pulse Resp BP BP Pulse Ox 03/27/22 11:29 36.9 C 62 18 84/44 L 132/72 97 03/27/22 07:27 36.9 C 71 18 93/46 L 99 03/27/22 07:11 62 20 96 03/27/22 02:53 36.9 C 68 14 121/56 L 98 Laboratory Results Short CBC 03/27/22 Range/Units 06:05 WBC 10.62 (4.8-10.8) K/uL Hgb 12.2 (12.0-16.0) g/dL Hct 38.0 (37-47) % Plt Count 250 (130-400) K/uL BMP 03/27/22 06:05 Sodium 136 Potassium 3.5 Chloride 101 Carbon Dioxide 28 BUN 9 Creatinine 0.89 Glucose 86 Calcium 8.9 Medications Administered Current Inpatient Medications Acetaminophen (Acetaminophen 325 Mg Tab) 650 mg PO Q6H PRN PRN Reason: Fever/pain Stop: 04/16/22 19:22 Last Admin: 03/21/22 23:55 Dose: 650 mg Documented by: Aspirin (Aspirin 81 Mg Chew) 81 mg NG QAM [facility] Stop: 04/12/22 08:59 Last Admin: 03/27/22 08:57 Dose: 81 mg Documented by: Colchicine (Colchicine 0.6 Mg Tab) 0.6 mg PO BID [facility] Stop: 04/18/22 11:14 Last Admin: 03/27/22 08:45 Dose: 0.6 mg Documented by: Dextrose (Dextrose 50% 50 Ml Syringe) 25 - 50 ml IV UD PRN; Protocol PRN Reason: Hypoglycemia Protocol Stop: 04/13/22 06:38 Docusate Sodium (Docusate Sodium Syrup 100 Mg/10 Ml Udc) 100 mg PO BID [facility] Stop: 04/12/22 10:44 Last Admin: 03/27/22 08:52 Dose: Not Given Documented by: Fluticasone/Vilanterol (Fluticasone/Vilanterol 100/25mcg 14 Puffs/Inhaler) 1 puffs INH DAILY [facility] Stop: 04/11/22 10:59 Last Admin: 03/27/22 08:47 Dose: 1 puffs Documented by: Folic Acid (Folic Acid 1 Mg Tab) 1 mg PO QAM [facility] Stop: 04/09/22 10:31 Last Admin: 03/27/22 08:46 Dose: 1 mg Documented by: Gabapentin (Gabapentin 100 Mg Cap) 100 mg PO TID [facility] Stop: 04/13/22 08:59 Last Admin: 03/27/22 08:45 Dose: 100 mg Documented by: Glucagon (Glucagon For Inj 1 Mg Vial) 1 mg SQ UD PRN; Protocol PRN Reason: Hypoglycemia Protocol Stop: 04/13/22 06:38 Glucose (Glucose 10 Tabs/Tube) 4 - 8 tabs PO UD PRN; Protocol PRN Reason: Hypoglycemia Protocol Stop: 04/13/22 06:38 Glucose (Glucose 40% Gel 15 Gm Tube) 15 - 30 gm PO UD PRN; Protocol PRN Reason: Hypoglycemia Protocol Stop: 04/13/22 06:38 Heparin Sodium (Porcine) (Heparin Sod 5,000 Unit/0.5 Ml Vial) 5,000 units SC Q12 [facility] Stop: 04/12/22 20:59 Last Admin: 03/27/22 08:44 Dose: 5,000 units Documented by: Insulin Aspart (Insulin Aspart Per Unit) 0 units SC ACHS [facility]; Protocol Stop: 04/26/22 07:29 Last Admin: 03/27/22 12:19 Dose: 4 units Documented by: Ipratropium [place] (Ipratropium [place] Neb Soln 0.02% 2.5 Ml Vial) 0.5 mg INH Q2R PRN PRN Reason: Shortness Of Breath Or Wheezing Stop: 04/09/22 10:31 Last Admin: 03/27/22 07:11 Dose: 0.5 mg Documented by: Lansoprazole (Lansoprazole 30 Mg Soltab) 30 mg NG [facility] Stop: 04/12/22 10:44 Last Admin: 03/27/22 08:48 Dose: 30 mg Documented by: Levalbuterol HCl (Levalbuterol Hcl 1.25 Mg/3 Ml Neb) 1.25 mg NEB Q2R PRN; Protocol PRN Reason: Shortness Of Breath Or Wheezing Stop: 04/09/22 10:31 Last Admin: 03/27/22 07:11 Dose: 1.25 mg Documented by: Levothyroxine Sodium (Levothyroxine Sodium 75 Mcg Tablet) [facility] Stop: 04/10/22 06:29 Last Admin: 03/27/22 05:53 Dose: 75 mcg Documented by: Lorazepam (Lorazepam 0.5 Mg Tab) 0.5 mg PO TID PRN PRN Reason: Anxiety Stop: 04/17/22 06:29 Last Admin: 03/27/22 08:57 Dose: 0.5 mg Documented by: Losartan Potassium (Losartan Potassium 25 Mg Tab) 25 mg PO [facility] Stop: 04/21/22 09:44 Last Admin: 03/27/22 08:48 Dose: 25 mg Documented by: Metoprolol Succinate (Metoprolol Succ 25mg Ext Rel Tab) 25 mg PO [facility] Stop: 04/17/22 14:14 Last Admin: 03/27/22 08:43 Dose: 25 mg Documented by: Miscellaneous (Carbohydrates For Hypoglycemia ) 15 - 30 gm PO UD PRN PRN Reason: Hypoglycemia Protocol Stop: 04/13/22 06:38 Last Admin: 03/26/22 20:56 Dose: 15 gm Documented by: Morphine Sulfate (Morphine Sulfate 2 Mg/Ml Carp) 2 mg IV Q8H PRN PRN Reason: pain not relieved by po meds Stop: 03/29/22 12:29 Last Admin: 03/25/22 19:37 Dose: 2 mg Documented by: Ondansetron HCl (Ondansetron Inj 2 Mg/Ml 2 Ml Vial) 4 mg IV Q6H PRN PRN Reason: Nausea And Vomiting Stop: 04/09/22 20:41 Last Admin: 03/26/22 08:32 Dose: 4 mg Documented by: Oxycodone HCl (Oxycodone Hcl Ir 5 Mg Tab (Immediate Release)) 5 mg PO Q4H PRN PRN Reason: Pain Stop: 03/31/22 22:05 Last Admin: 03/27/22 04:52 Dose: 5 mg Documented by: Prednisone (Prednisone 10 Mg Tablet) 10 mg PO DAILY [facility] Stop: 04/23/22 08:59 Last Admin: 03/27/22 08:41 Dose: 10 mg Documented by: Pregabalin (Pregabalin 75 Mg Cap) 75 mg PO TID [facility] Stop: 04/10/22 13:59 Last Admin: 03/11/22 14:14 Dose: Not Given Documented by: Sacubitril/Valsartan (Valsartan/Sacubitril 26/24mg Tab) 1 tab PO BID [facility] Stop: 04/18/22 12:59 Last Admin: 03/21/22 07:36 Dose: 1 tab Documented by: Sennosides (Sennosides 8.8 Mg/5 Ml Udc) 8.8 mg PO BID [facility] Stop: 04/12/22 10:44 Last Admin: 03/27/22 08:39 Dose: 8.8 mg Documented by: Tizanidine HCl (Tizanidine Hcl 4 Mg Tablet) 2 mg PO TID PRN PRN Reason: Muscle Spasm Stop: 04/09/22 10:31 Last Admin: 03/10/22 12:02 Dose: 2 mg Documented by: Tizanidine HCl (Tizanidine Hcl 4 Mg Tablet) 2 mg PO BID [facility] Stop: 04/18/22 20:59 Last Admin: 03/27/22 08:42 Dose: 2 mg Documented by: Umeclidinium [place] (Umeclidinium [place] 62.5mcg/Blister 7 Puffs/Inhaler) 1 puffs INH [facility]; Protocol Stop: 04/09/22 10:59 Last Admin: 03/27/22 08:49 Dose: 1 puffs Documented by: Vitamin D (Cholecalciferol 1,000 Units 25 Mcg Tab) 2,000 units PO QAM [facility] Stop: 04/09/22 10:31 Last Admin: 03/27/22 08:43 Dose: 2,000 units Documented by:
[2022-03-27] MEDS: MoRPHine SULFATE 2 MG/ML CARP IV PRN (17:16)
[2022-03-28] MEDS: oxyCODONE HCL IR 5 MG TAB (IMMEDIATE RELEASE) PO PRN ×2 (03:39→15:55)
[2022-03-28] MEDS: MoRPHine SULFATE 2 MG/ML CARP IV PRN ×2 (05:26→10:37)
[2022-03-28] MEDS: LEVOTHYROXINE SODIUM 75 MCG TABLET PO SCH (06:09)
[2022-03-28 06:43] LABS: Hematocrit (blood only) 36.8 % (37-47); Hemoglobin 11.9 g/dL (12.0-16.0); Mean Corpuscular Hemoglobin 30.7 pg (25-34); Mean Corpuscular Hgb Conc 32.3 g/dL (32-36); Mean Corpuscular Volume 94.8 fL (80-100); Mean Platelet Volume 9.8 fL (7.4-10.4); Platelet Count 233 K/uL (130-400); RDW Standard Deviation 50.7 fL (36.4-46.3); Red Blood Count 3.88 M/uL (4.2-5.4); White Blood Count 10.45 K/uL (4.8-10.8)
[2022-03-28] MEDS: INSULIN ASPART PER UNIT SC SCH ×4 (08:30→20:53)
[2022-03-28] MEDS: LANSOPRAZOLE 30 MG SOLTAB NG SCH (08:52)
[2022-03-28] MEDS: METOPROLOL SUCC 25MG EXT REL TAB PO SCH (08:52)
[2022-03-28] MEDS: LOSARTAN POTASSIUM 25 MG TAB PO SCH (08:53)
[2022-03-28] MEDS: tiZANidine HCL 4 MG TABLET PO SCH ×2 (08:54→20:44)
[2022-03-28] MEDS: FOLIC ACID 1 MG TAB PO SCH (08:54)
[2022-03-28] MEDS: CHOLECALCIFEROL 1,000 UNITS 25 MCG TAB PO SCH (08:54)
[2022-03-28] MEDS: COLCHICINE 0.6 MG TAB PO SCH ×2 (08:55→20:43)
[2022-03-28] MEDS: predniSONE 10 MG TABLET PO SCH (08:55)
[2022-03-28] MEDS: FLUTICASONE/VILANTEROL 100/25MCG 14 PUFFS/INHALER INH SCH (08:55)
[2022-03-28] MEDS: GABAPENTIN 100 MG CAP PO SCH ×3 (08:55→20:43)
[2022-03-28] MEDS: HEPARIN SOD 5,000 UNIT/0.5 ML VIAL SC SCH ×2 (08:55→20:43)
[2022-03-28] MEDS: LORazepam 0.5 MG TAB PO PRN ×3 (09:29→22:03)
[2022-03-28] MEDS: DOCUSATE SODIUM SYRUP 100 MG/10 ML UDC PO SCH ×2 (09:30→20:44)
[2022-03-28] MEDS: ASPIRIN 81 MG CHEW NG SCH (09:30)
[2022-03-28] MEDS: SENNOSIDES 8.8 MG/5 ML UDC PO SCH ×2 (09:30→20:44)
[2022-03-28] MEDS: UMECLIDINIUM BROMIDE 62.5MCG/BLISTER 7 PUFFS/INHALER INH SCH (10:26)
--- NOTE | 2022-03-28 17:05 | Hospitalist Progress Note ---
Date of Service March 28, 2022 Assessment & Plan (1) Acute exacerbation of chronic obstructive pulmonary disease: Plan: Acute hypoxic and hypercarbic respiratory failure COPD exacerbation Complicated by Influenza A CXR showedIll-defined nodule versus airspace disease of the left upper lobe. Repeat CXR showed Interval improvement in left lung airspace opacities. - Patient has tenuous respiratory status and unable to wean off BIPAP. Had increasing work of breathing with ABG showing severe hypercapnia and acidosis and transferred to ICU for closer monitoring and possible need for intubation. -S/P mechanical vent support, then extuabetd on 03/15 -Propofol and Precedex drips discontinued - Continue IV doxycycline. IV cefepime changed to Zosyn - Currently on PO prednisone, Continue taper prednisone - CXR shows mildly increased interstitial markings - Repeat cxrshowed no change in subtle reticulonodular interstitial thickening within the left lung. This could reflect an infectious process. - IV Zosyn discontinued then transition to Augmentin - Continue Augmentin for now - Completed Doxycycline course - Speech on board for issue with dysphagia- diet advanced to low fiber - Continue PT/OT eval - Consider inpatient rehab -Clinically stable and denies any significant symptoms -Remains stable and will decrease prednisone to 10 mg daily -No acute symptoms. Medically stable to be discharged -Has had PT evaluation and recommended rehab-awaiting placement -Continue physical therapy continue physical therapy -Awaiting placement Low blood pressure Blood pressure medicine is on hold Will decrease the medications on discharge We will decrease the blood pressure medication Blood pressure remains stable Blood pressure remains in the lower side of normal at 90/59 without any symptom (2) Influenza A: Plan: As above Finished the course of Tamiflu (3) Acute respiratory failure with hypoxia: Plan: As above Appreciate pulmonary input and recommendation (4) Left ventricular systolic dysfunction: Plan: Systolic heart failure BNP on admission 682 ECHO showed dilated left ventricle with severe global hypokinesis and estimated left ventricular ejection fraction of around 20 to 25%.Thickening of the pericardium and a small pericardial effusion consistent with chronic pericarditis. Repeat ECHO showed Moderate diffuse Left ventricular Hypokinesis with EF 35-39% Cardiology on board-appreciate input and recommendation Continue Entresto starting yesterday 03/19/22 by cardiology Cardiac medications have been readjusted by the aquatics assistant department head with metoprolol succinate 25 mg/day, low-dose ARB, losartan 25 mg and continue colchicine for now Kidney function has remained stable Noted to have low blood pressure and responded well to small volume of normal saline infusion Was advised to drink more fluid (5) Pericardial effusion: Plan: Pericardial effusion ECHO showed moderate sized, loculated anterior and right lateral pericardial effusion Continue Colchicine and prednisone 20mg daily as per recommendation Continue monitor Prednisone dose has been decreased to 10 mg daily Will discontinue prednisone after about 2 to 3 days (6) CAD (coronary artery disease): Plan: Status post cardiac stent No acute cardiac symptoms right now Continue current medications Anxiety Received intravenous Precedex and Dilaudid discontinued while in ICU Will continue with gabapentin/lorazepam Has been very anxious as she is not being accepted yet Hypothyroidism Continue supplement DVT prophylaxis Subcu heparin Admission and Anticipated Discharge Date Admission Date: March 10, 2022 Subjective 03/21/2022 The patient was seen and examined in telemetry unit She has been feeling much better and denies any significant symptoms She has noted to have low blood pressure at systolics 87 this morning and received a small volume of intravenous fluid Denies any shortness of breath, palpitation, chest pain, abdominal pain nausea and vomiting 03/22/2022 The patient was seen and examined in telemetry unit She has been stable without any acute symptoms 03/23/2022 The patient was seen and examined in telemetry unit She denies any symptoms today and has been waiting to be placed No cough, wheezing and no shortness of breath 03/24/2022 The patient was seen and examined in telemetry unit She has been stable and waiting to be transferred to rehab Denies any significant symptoms 03/25/2022 The patient was seen and examined in telemetry unit She has been stable and is very anxious to get out of the hospital She has not been accepted yet Has been running low blood pressure and required a small bolus today 03/26/2022 The patient was seen and examined in telemetry unit He has been very upset this morning when she was told that she is doing pretty good and does not require any rehab Things are settling down right now Denies any significant symptoms but is noted to have low blood pressure without any symptoms We will get PT reevaluation 03/27/2022 Patient was seen and examined in telemetry unit She has been getting physical therapy and recommendation was to discharge to rehab Denies any symptoms except weakness Blood pressure seems to be stable 03/28/2022 The patient was seen and examined in telemetry unit in presence of the She has been stable and denies any significant symptoms She has been waiting to be placed Review of Systems Review of Systems: All systems reviewed and are unremarkable except as noted below Musculoskeletal: Remains generally weak and lethargic Physical Exam Physical Exam: Lying in bed comfortably Constitutional: well developed, well nourished, + ill appearing and + obese Eyes: PERRL, conjunctivae normal, anicteric sclerae ENMT: external ear and nose normal, oropharynx normal Neck: trachea midline, no thyromegaly Respiratory: no respiratory distress Auscultation: + diminished lung sounds and + crackles (Minimal crackles at the bases) Cardiovascular: Rate/Rhythm: regular rate and regular rhythm; not tachycardic Heart Sounds: normal S1 and normal S2; no murmur Extremities: no edema Gastrointestinal (Abdomen): Inspection/Auscultation: abdomen normal to inspection Percussion/Palpation: abdomen soft; abdomen nontender Musculoskeletal: No acute arthritis in any joint Neurologic: normal touch/pain/proprioception and CN's II-XI intact bilaterally Psychiatric: A+Ox3, euthymic affect Lymphatic: no cervical or axillary lymphadenopathy Results & Data Results & Data ([facility]) Vital Signs (Past 12 Hours) Vital Signs Temp Pulse Pulse Pulse Resp BP Pulse Ox 03/28/22 16:21 36.4 C L 87 18 90/59 L 97 03/28/22 12:47 93/60 L 03/28/22 12:32 37.0 C 67 16 82/46 L 95 03/28/22 11:52 68 03/28/22 10:30 95 03/28/22 08:50 99 H 104/57 L 03/28/22 08:41 36.9 C 92 H 16 124/66 16 L 03/28/22 05:25 109/65 Laboratory Results Short CBC 03/28/22 Range/Units 06:26 WBC 10.45 (4.8-10.8) K/uL Hgb 11.9 L (12.0-16.0) g/dL Hct 36.8 L (37-47) % Plt Count 233 (130-400) K/uL Medications Administered Current Inpatient Medications Acetaminophen (Acetaminophen 325 Mg Tab) 650 mg PO Q6H PRN PRN Reason: Fever/pain Stop: 04/16/22 19:22 Last Admin: 03/21/22 23:55 Dose: 650 mg Documented by: Aspirin (Aspirin 81 Mg Chew) 81 mg NG QAM [facility] Stop: 04/12/22 08:59 Last Admin: 03/28/22 09:30 Dose: 81 mg Documented by: Colchicine (Colchicine 0.6 Mg Tab) 0.6 mg PO BID JUDITH Stop: 04/18/22 11:14 Last Admin: 03/28/22 08:55 Dose: 0.6 mg Documented by: Dextrose (Dextrose 50% 50 Ml Syringe) 25 - 50 ml IV UD PRN; Protocol PRN Reason: Hypoglycemia Protocol Stop: 04/13/22 06:38 Docusate Sodium (Docusate Sodium Syrup 100 Mg/10 Ml Udc) 100 mg PO BID [facility] Stop: 04/12/22 10:44 Last Admin: 03/28/22 09:30 Dose: Not Given Documented by: Fluticasone/Vilanterol (Fluticasone/Vilanterol 100/25mcg 14 Puffs/Inhaler) 1 puffs INH DAILY JUDITH Stop: 04/11/22 10:59 Last Admin: 03/28/22 08:55 Dose: 1 puffs Documented by: Folic Acid (Folic Acid 1 Mg Tab) 1 mg PO QAM [facility] Stop: 04/09/22 10:31 Last Admin: 03/28/22 08:54 Dose: 1 mg Documented by: Gabapentin (Gabapentin 100 Mg Cap) 100 mg PO TID JUDITH Stop: 04/13/22 08:59 Last Admin: 03/28/22 13:56 Dose: 100 mg Documented by: Glucagon (Glucagon For Inj 1 Mg Vial) 1 mg SQ UD PRN; Protocol PRN Reason: Hypoglycemia Protocol Stop: 04/13/22 06:38 Glucose (Glucose 10 Tabs/Tube) 4 - 8 tabs PO UD PRN; Protocol PRN Reason: Hypoglycemia Protocol Stop: 04/13/22 06:38 Glucose (Glucose 40% Gel 15 Gm Tube) 15 - 30 gm PO UD PRN; Protocol PRN Reason: Hypoglycemia Protocol Stop: 04/13/22 06:38 Heparin Sodium (Porcine) (Heparin Sod 5,000 Unit/0.5 Ml Vial) 5,000 units SC Q12 JUDITH Stop: 04/12/22 20:59 Last Admin: 03/28/22 08:55 Dose: 5,000 units Documented by: Insulin Aspart (Insulin Aspart Per Unit) 0 units SC ACHS [facility]; Protocol Stop: 04/26/22 07:29 Last Admin: 03/28/22 12:11 Dose: Not Given Documented by: Ipratropium [place] (Ipratropium [place] Neb Soln 0.02% 2.5 Ml Vial) 0.5 mg INH Q2R PRN PRN Reason: Shortness Of Breath Or Wheezing Stop: 04/09/22 10:31 Last Admin: 03/27/22 07:11 Dose: 0.5 mg Documented by: Lansoprazole (Lansoprazole 30 Mg Soltab) [address] [facility] Stop: 04/12/22 10:44 Last Admin: 03/28/22 08:52 Dose: 30 mg Documented by: Levalbuterol HCl (Levalbuterol Hcl 1.25 Mg/3 Ml Neb) 1.25 mg NEB Q2R PRN; Protocol PRN Reason: Shortness Of Breath Or Wheezing Stop: 04/09/22 10:31 Last Admin: 03/27/22 07:11 Dose: 1.25 mg Documented by: Levothyroxine Sodium (Levothyroxine Sodium 75 Mcg Tablet) 75 mcg PO DAILYPSYCHIATRIC Stop: 04/10/22 06:29 Last Admin: 03/28/22 06:09 Dose: 75 mcg Documented by: Lorazepam (Lorazepam 0.5 Mg Tab) 0.5 mg PO TID PRN PRN Reason: Anxiety Stop: 04/17/22 06:29 Last Admin: 03/28/22 09:29 Dose: 0.5 mg Documented by: Losartan Potassium (Losartan Potassium 25 Mg Tab) [address] [facility] Stop: 04/21/22 09:44 Last Admin: 03/28/22 08:53 Dose: 25 mg Documented by: Metoprolol Succinate (Metoprolol Succ 25mg Ext Rel Tab) [address] [facility] Stop: 04/17/22 14:14 Last Admin: 03/28/22 08:52 Dose: 25 mg Documented by: Miscellaneous (Carbohydrates For Hypoglycemia ) 15 - 30 gm PO UD PRN PRN Reason: Hypoglycemia Protocol Stop: 04/13/22 06:38 Last Admin: 03/26/22 20:56 Dose: 15 gm Documented by: Morphine Sulfate (Morphine Sulfate 2 Mg/Ml Carp) 2 mg IV Q8H PRN PRN Reason: pain not relieved by po meds Stop: 03/29/22 12:29 Last Admin: 03/28/22 10:37 Dose: 2 mg Documented by: Ondansetron HCl (Ondansetron Inj 2 Mg/Ml 2 Ml Vial) 4 mg IV Q6H PRN PRN Reason: Nausea And Vomiting Stop: 04/09/22 20:41 Last Admin: 03/26/22 08:32 Dose: 4 mg Documented by: Oxycodone HCl (Oxycodone Hcl Ir 5 Mg Tab (Immediate Release)) 5 mg PO Q4H PRN PRN Reason: Pain Stop: 03/31/22 22:05 Last Admin: 03/28/22 15:55 Dose: 5 mg Documented by: Prednisone (Prednisone 10 Mg Tablet) 10 mg PO DAILY [facility] Stop: 04/23/22 08:59 Last Admin: 03/28/22 08:55 Dose: 10 mg Documented by: Pregabalin (Pregabalin 75 Mg Cap) 75 mg PO TID [facility] Stop: 04/10/22 13:59 Last Admin: 03/11/22 14:14 Dose: Not Given Documented by: Sacubitril/Valsartan (Valsartan/Sacubitril 26/24mg Tab) 1 tab PO BID [facility] Stop: 04/18/22 12:59 Last Admin: 03/21/22 07:36 Dose: 1 tab Documented by: Sennosides (Sennosides 8.8 Mg/5 Ml Udc) 8.8 mg PO BID [facility] Stop: 04/12/22 10:44 Last Admin: 03/28/22 09:30 Dose: Not Given Documented by: Tizanidine HCl (Tizanidine Hcl 4 Mg Tablet) 2 mg PO TID PRN PRN Reason: Muscle Spasm Stop: 04/09/22 10:31 Last Admin: 03/10/22 12:02 Dose: 2 mg Documented by: Tizanidine HCl (Tizanidine Hcl 4 Mg Tablet) 2 mg PO BID [facility] Stop: 04/18/22 20:59 Last Admin: 03/28/22 08:54 Dose: 2 mg Documented by: Umeclidinium [place] (Umeclidinium [place] 62.5mcg/Blister 7 Puffs/Inhaler) [address] [facility]; Protocol Stop: 04/09/22 10:59 Last Admin: 03/28/22 10:26 Dose: 1 puffs Documented by: Vitamin D (Cholecalciferol 1,000 Units 25 Mcg Tab) 2,[address] [facility] Stop: 04/09/22 10:31 Last Admin: 03/28/22 08:54 Dose: 2,000 units Documented by:
[2022-03-29] MEDS: MoRPHine SULFATE 2 MG/ML CARP IV PRN (05:26)
[2022-03-29] MEDS: LEVOTHYROXINE SODIUM 75 MCG TABLET PO SCH (06:04)
[2022-03-29] MEDS: INSULIN ASPART PER UNIT SC SCH ×4 (08:33→21:16)
[2022-03-29] MEDS: tiZANidine HCL 4 MG TABLET PO SCH ×2 (08:42→21:17)
[2022-03-29] MEDS: predniSONE 10 MG TABLET PO SCH (08:42)
[2022-03-29] MEDS: FLUTICASONE/VILANTEROL 100/25MCG 14 PUFFS/INHALER INH SCH ×2 (08:42→11:24)
[2022-03-29] MEDS: METOPROLOL SUCC 25MG EXT REL TAB PO SCH (08:43)
[2022-03-29] MEDS: LORazepam 0.5 MG TAB PO PRN ×2 (08:43→17:06)
[2022-03-29] MEDS: UMECLIDINIUM BROMIDE 62.5MCG/BLISTER 7 PUFFS/INHALER INH SCH (08:43)
[2022-03-29] MEDS: DOCUSATE SODIUM SYRUP 100 MG/10 ML UDC PO SCH ×2 (08:47→21:16)
[2022-03-29] MEDS: SENNOSIDES 8.8 MG/5 ML UDC PO SCH ×2 (08:48→21:16)
[2022-03-29] MEDS: CHOLECALCIFEROL 1,000 UNITS 25 MCG TAB PO SCH (08:59)
[2022-03-29] MEDS: COLCHICINE 0.6 MG TAB PO SCH ×2 (08:59→21:15)
[2022-03-29] MEDS: LOSARTAN POTASSIUM 25 MG TAB PO SCH (09:00)
[2022-03-29] MEDS: LANSOPRAZOLE 30 MG SOLTAB NG SCH (09:00)
[2022-03-29] MEDS: HEPARIN SOD 5,000 UNIT/0.5 ML VIAL SC SCH ×2 (09:00→21:16)
[2022-03-29] MEDS: FOLIC ACID 1 MG TAB PO SCH (09:00)
[2022-03-29] MEDS: GABAPENTIN 100 MG CAP PO SCH ×3 (09:00→21:16)
[2022-03-29] MEDS: ASPIRIN 81 MG CHEW NG SCH (11:24)
[2022-03-29] MEDS: oxyCODONE HCL IR 5 MG TAB (IMMEDIATE RELEASE) PO PRN ×2 (11:32→21:15)
--- NOTE | 2022-03-29 13:52 | Hospitalist Progress Note ---
Date of Service March 29, 2022 Assessment & Plan (1) Acute exacerbation of chronic obstructive pulmonary disease: Plan: Acute hypoxic and hypercarbic respiratory failure COPD exacerbation Complicated by Influenza A CXR showedIll-defined nodule versus airspace disease of the left upper lobe. Repeat CXR showed Interval improvement in left lung airspace opacities. - Patient has tenuous respiratory status and unable to wean off BIPAP. Had increasing work of breathing with ABG showing severe hypercapnia and acidosis and transferred to ICU for closer monitoring and possible need for intubation. -S/P mechanical vent support, then extuabetd on 03/15 -Propofol and Precedex drips discontinued - Continue IV doxycycline. IV cefepime changed to Zosyn - Currently on PO prednisone, Continue taper prednisone - CXR shows mildly increased interstitial markings - Repeat cxrshowed no change in subtle reticulonodular interstitial thickening within the left lung. This could reflect an infectious process. - IV Zosyn discontinued then transition to Augmentin - Continue Augmentin for now - Completed Doxycycline course - Speech on board for issue with dysphagia- diet advanced to low fiber - Continue PT/OT eval - Consider inpatient rehab -Clinically stable and denies any significant symptoms -Remains stable and will decrease prednisone to 10 mg daily -No acute symptoms. Medically stable to be discharged -Has had PT evaluation and recommended rehab-awaiting placement -Continue physical therapy continue physical therapy -We will discontinue oral prednisone -Remains stable Low blood pressure Blood pressure medicine is on hold Will decrease the medications on discharge We will decrease the blood pressure medication Blood pressure remains stable Blood pressure remains in the lower side of normal at 90/59 without any symptom Blood pressure seems to be in the lower side at 102/67 (2) Influenza A: Plan: As above Finished the course of Tamiflu (3) Acute respiratory failure with hypoxia: Plan: As above Appreciate pulmonary input and recommendation (4) Left ventricular systolic dysfunction: Plan: Systolic heart failure BNP on admission 682 ECHO showed dilated left ventricle with severe global hypokinesis and estimated left ventricular ejection fraction of around 20 to 25%.Thickening of the pericardium and a small pericardial effusion consistent with chronic pericarditis. Repeat ECHO showed Moderate diffuse Left ventricular Hypokinesis with EF 35-39% Cardiology on board-appreciate input and recommendation Continue Entresto starting yesterday 03/19/22 by cardiology Cardiac medications have been readjusted by the rubber goods tester water with metoprolol succinate 25 mg/day, low-dose ARB, losartan 25 mg and continue colchicine for now Kidney function has remained stable Noted to have low blood pressure and responded well to small volume of normal saline infusion Was advised to drink more fluid (5) Pericardial effusion: Plan: Pericardial effusion ECHO showed moderate sized, loculated anterior and right lateral pericardial effusion Continue Colchicine and prednisone 20mg daily as per recommendation Continue monitor Prednisone dose has been decreased to 10 mg daily Will discontinue prednisone after about 2 to 3 days Prednisone has been discontinued (6) CAD (coronary artery disease): Plan: Status post cardiac stent No acute cardiac symptoms right now Continue current medications Anxiety Received intravenous Precedex and Dilaudid discontinued while in ICU Will continue with gabapentin/lorazepam Has been very anxious as she is not being accepted yet Hypothyroidism Continue supplement DVT prophylaxis Subcu heparin Admission and Anticipated Discharge Date Admission Date: March 10, 2022 Subjective 03/21/2022 The patient was seen and examined in telemetry unit She has been feeling much better and denies any significant symptoms She has noted to have low blood pressure at systolics 87 this morning and received a small volume of intravenous fluid Denies any shortness of breath, palpitation, chest pain, abdominal pain nausea and vomiting 03/22/2022 The patient was seen and examined in telemetry unit She has been stable without any acute symptoms 03/23/2022 The patient was seen and examined in telemetry unit She denies any symptoms today and has been waiting to be placed No cough, wheezing and no shortness of breath 03/24/2022 The patient was seen and examined in telemetry unit She has been stable and waiting to be transferred to rehab Denies any significant symptoms 03/25/2022 The patient was seen and examined in telemetry unit She has been stable and is very anxious to get out of the hospital She has not been accepted yet Has been running low blood pressure and required a small bolus today 03/26/2022 The patient was seen and examined in telemetry unit He has been very upset this morning when she was told that she is doing pretty good and does not require any rehab Things are settling down right now Denies any significant symptoms but is noted to have low blood pressure without any symptoms We will get PT reevaluation 03/27/2022 Patient was seen and examined in telemetry unit She has been getting physical therapy and recommendation was to discharge to rehab Denies any symptoms except weakness Blood pressure seems to be stable 03/28/2022 The patient was seen and examined in telemetry unit in presence of the She has been stable and denies any significant symptoms She has been waiting to be placed 03/29/2022 The patient was seen and examined in medical telemetry unit She has been stable and remains weak and lethargic Denies any other symptoms except ongoing pain involving the extremities Review of Systems Review of Systems: All systems reviewed and are unremarkable except as noted below Physical Exam Physical Exam: Lying in bed comfortably Constitutional: well developed, well nourished, + ill appearing and + obese Eyes: PERRL, conjunctivae normal, anicteric sclerae ENMT: external ear and nose normal, oropharynx normal Neck: trachea midline, no thyromegaly Respiratory: no respiratory distress Auscultation: + diminished lung sounds and + crackles (Minimal crackles at the bases) Cardiovascular: Rate/Rhythm: regular rate and regular rhythm; not tachycardic Heart Sounds: normal S1 and normal S2; no murmur Extremities: no edema Gastrointestinal (Abdomen): Inspection/Auscultation: abdomen normal to inspection Percussion/Palpation: abdomen soft; abdomen nontender Musculoskeletal: Extremities: extremities normal to inspection No acute arthritis in any joint Neurologic: normal touch/pain/proprioception and CN's II-XI intact bilaterally Psychiatric: A+Ox3, euthymic affect Lymphatic: no cervical or axillary lymphadenopathy Results & Data Results & Data ([facility]) Vital Signs (Past 12 Hours) Vital Signs Temp Pulse Pulse Resp BP Pulse Ox 03/29/22 11:38 36.6 C 82 20 102/67 99 03/29/22 08:00 67 03/29/22 07:56 36.8 C 78 18 103/68 93 03/29/22 03:14 36.6 C 62 18 91/52 L 93 Medications Administered Current Inpatient Medications Acetaminophen (Acetaminophen 325 Mg Tab) 650 mg PO Q6H PRN PRN Reason: Fever/pain Stop: 04/16/22 19:22 Last Admin: 03/21/22 23:55 Dose: 650 mg Documented by: Aspirin (Aspirin 81 Mg Chew) 81 mg NG QAM [facility] Stop: 04/12/22 08:59 Last Admin: 03/29/22 11:24 Dose: 81 mg Documented by: Colchicine (Colchicine 0.6 Mg Tab) 0.6 mg PO BID [facility] Stop: 04/18/22 11:14 Last Admin: 03/29/22 08:59 Dose: 0.6 mg Documented by: Dextrose (Dextrose 50% 50 Ml Syringe) 25 - 50 ml IV UD PRN; Protocol PRN Reason: Hypoglycemia Protocol Stop: 04/13/22 06:38 Docusate Sodium (Docusate Sodium Syrup 100 Mg/10 Ml Udc) 100 mg PO BID [facility] Stop: 04/12/22 10:44 Last Admin: 03/29/22 08:47 Dose: Not Given Documented by: Fluticasone/Vilanterol (Fluticasone/Vilanterol 100/25mcg 14 Puffs/Inhaler) 1 puffs INH DAILY [facility] Stop: 04/11/22 10:59 Last Admin: 03/29/22 11:24 Dose: 1 puffs Documented by: Folic Acid (Folic Acid 1 Mg Tab) 1 mg PO QAM [facility] Stop: 04/09/22 10:31 Last Admin: 03/29/22 09:00 Dose: 1 mg Documented by: Gabapentin (Gabapentin 100 Mg Cap) 100 mg PO TID [facility] Stop: 04/13/22 08:59 Last Admin: 03/29/22 09:00 Dose: 100 mg Documented by: Glucagon (Glucagon For Inj 1 Mg Vial) 1 mg SQ UD PRN; Protocol PRN Reason: Hypoglycemia Protocol Stop: 04/13/22 06:38 Glucose (Glucose 10 Tabs/Tube) 4 - 8 tabs PO UD PRN; Protocol PRN Reason: Hypoglycemia Protocol Stop: 04/13/22 06:38 Glucose (Glucose 40% Gel 15 Gm Tube) 15 - 30 gm PO UD PRN; Protocol PRN Reason: Hypoglycemia Protocol Stop: 04/13/22 06:38 Heparin Sodium (Porcine) (Heparin Sod 5,000 Unit/0.5 Ml Vial) 5,000 units SC Q12 [facility] Stop: 04/12/22 20:59 Last Admin: 03/29/22 09:00 Dose: 5,000 units Documented by: Insulin Aspart (Insulin Aspart Per Unit) 0 units SC ACHS [facility]; Protocol Stop: 04/26/22 07:29 Last Admin: 03/29/22 11:41 Dose: Not Given Documented by: Ipratropium Haugen (Ipratropium Haugen Neb Soln 0.02% 2.5 Ml Vial) 0.5 mg INH Q2R PRN PRN Reason: Shortness Of Breath Or Wheezing Stop: 04/09/22 10:31 Last Admin: 03/27/22 07:11 Dose: 0.5 mg Documented by: Lansoprazole (Lansoprazole 30 Mg Soltab) 30 mg NG [facility] Stop: 04/12/22 10:44 Last Admin: 03/29/22 09:00 Dose: 30 mg Documented by: Levalbuterol HCl (Levalbuterol Hcl 1.25 Mg/3 Ml Neb) 1.25 mg NEB Q2R PRN; Protocol PRN Reason: Shortness Of Breath Or Wheezing Stop: 04/09/22 10:31 Last Admin: 03/27/22 07:11 Dose: 1.25 mg Documented by: Levothyroxine Sodium ([facility]othyroxine Sodium 75 Mcg Tablet) [facility] Stop: 04/10/22 06:29 Last Admin: 03/29/22 06:04 Dose: 75 mcg Documented by: Lorazepam (Lorazepam 0.5 Mg Tab) 0.5 mg PO TID PRN PRN Reason: Anxiety Stop: 04/17/22 06:29 Last Admin: 03/29/22 08:43 Dose: 0.5 mg Documented by: Losartan Potassium (Losartan Potassium 25 Mg Tab) 25 mg PO [facility] Stop: 04/21/22 09:44 Last Admin: 03/29/22 09:00 Dose: 25 mg Documented by: Metoprolol Succinate (Metoprolol Succ 25mg Ext Rel Tab) 25 mg PO [facility] Stop: 04/17/22 14:14 Last Admin: 03/29/22 08:43 Dose: 25 mg Documented by: Miscellaneous (Carbohydrates For Hypoglycemia ) 15 - 30 gm PO UD PRN PRN Reason: Hypoglycemia Protocol Stop: 04/13/22 06:38 Last Admin: 03/26/22 20:56 Dose: 15 gm Documented by: Ondansetron HCl (Ondansetron Inj 2 Mg/Ml 2 Ml Vial) 4 mg IV Q6H PRN PRN Reason: Nausea And Vomiting Stop: 04/09/22 20:41 Last Admin: 03/26/22 08:32 Dose: 4 mg Documented by: Oxycodone HCl (Oxycodone Hcl Ir 5 Mg Tab (Immediate Release)) 5 mg PO Q4H PRN PRN Reason: Pain Stop: 03/31/22 22:05 Last Admin: 03/29/22 11:32 Dose: 5 mg Documented by: Prednisone (Prednisone 10 Mg Tablet) 10 mg PO DAILY [facility] Stop: 04/23/22 08:59 Last Admin: 03/29/22 08:42 Dose: 10 mg Documented by: Pregabalin (Pregabalin 75 Mg Cap) 75 mg PO TID [facility] Stop: 04/10/22 13:59 Last Admin: 03/11/22 14:14 Dose: Not Given Documented by: Sennosides (Sennosides 8.8 Mg/5 Ml Udc) 8.8 mg PO BID [facility] Stop: 04/12/22 10:44 Last Admin: 03/29/22 08:48 Dose: Not Given Documented by: Tizanidine HCl (Tizanidine Hcl 4 Mg Tablet) 2 mg PO TID PRN PRN Reason: Muscle Spasm Stop: 04/09/22 10:31 Last Admin: 03/10/22 12:02 Dose: 2 mg Documented by: Tizanidine HCl (Tizanidine Hcl 4 Mg Tablet) 2 mg PO BID [facility] Stop: 04/18/22 20:59 Last Admin: 03/29/22 08:42 Dose: 2 mg Documented by: Umeclidinium Haugen (Umeclidinium Haugen 62.5mcg/Blister 7 Puffs/Inhaler) 1 puffs INH [facility]; Protocol Stop: 04/09/22 10:59 Last Admin: 03/29/22 08:43 Dose: 1 puffs Documented by: Vitamin D (Cholecalciferol 1,000 Units 25 Mcg Tab) 2,000 units PO QAM [facility] Stop: 04/09/22 10:31 Last Admin: 03/29/22 08:59 Dose: 2,000 units Documented by:
[2022-03-29] MEDS: ONDANSETRON INJ 2 MG/ML 2 ML VIAL IV PRN (14:30)
[2022-03-30] MEDS: LORazepam 0.5 MG TAB PO PRN ×3 (00:07→16:21)
[2022-03-30] MEDS: oxyCODONE HCL IR 5 MG TAB (IMMEDIATE RELEASE) PO PRN ×4 (03:34→19:17)
[2022-03-30] MEDS: LEVOTHYROXINE SODIUM 75 MCG TABLET PO SCH (05:36)
[2022-03-30] MEDS: INSULIN ASPART PER UNIT SC SCH ×4 (08:43→20:07)
[2022-03-30] MEDS: UMECLIDINIUM BROMIDE 62.5MCG/BLISTER 7 PUFFS/INHALER INH SCH (08:48)
[2022-03-30] MEDS: FLUTICASONE/VILANTEROL 100/25MCG 14 PUFFS/INHALER INH SCH (08:48)
[2022-03-30] MEDS: LOSARTAN POTASSIUM 25 MG TAB PO SCH (08:49)
[2022-03-30] MEDS: tiZANidine HCL 4 MG TABLET PO SCH ×2 (08:49→20:07)
[2022-03-30] MEDS: METOPROLOL SUCC 25MG EXT REL TAB PO SCH (08:49)
[2022-03-30] MEDS: FOLIC ACID 1 MG TAB PO SCH (08:50)
[2022-03-30] MEDS: LANSOPRAZOLE 30 MG SOLTAB NG SCH (08:50)
[2022-03-30] MEDS: GABAPENTIN 100 MG CAP PO SCH ×3 (08:50→20:06)
[2022-03-30] MEDS: COLCHICINE 0.6 MG TAB PO SCH ×2 (08:50→20:07)
[2022-03-30] MEDS: SENNOSIDES 8.8 MG/5 ML UDC PO SCH ×2 (08:51→20:07)
[2022-03-30] MEDS: CHOLECALCIFEROL 1,000 UNITS 25 MCG TAB PO SCH (08:51)
[2022-03-30] MEDS: DOCUSATE SODIUM SYRUP 100 MG/10 ML UDC PO SCH ×2 (08:52→20:07)
[2022-03-30] MEDS: HEPARIN SOD 5,000 UNIT/0.5 ML VIAL SC SCH ×2 (08:52→20:06)
[2022-03-30] MEDS: ASPIRIN 81 MG CHEW NG SCH (12:16)
--- NOTE | 2022-03-30 15:16 | Hospitalist Progress Note ---
Date of Service March 30, 2022 Assessment & Plan (1) Acute exacerbation of chronic obstructive pulmonary disease: Plan: Acute hypoxic and hypercarbic respiratory failure COPD exacerbation Complicated by Influenza A CXR showedIll-defined nodule versus airspace disease of the left upper lobe. Repeat CXR showed Interval improvement in left lung airspace opacities. - Patient has tenuous respiratory status and unable to wean off BIPAP. Had increasing work of breathing with ABG showing severe hypercapnia and acidosis and transferred to ICU for closer monitoring and possible need for intubation. -S/P mechanical vent support, then extuabetd on 03/15 -Propofol and Precedex drips discontinued - Continue IV doxycycline. IV cefepime changed to Zosyn - Currently on PO prednisone, Continue taper prednisone - CXR shows mildly increased interstitial markings - Repeat cxrshowed no change in subtle reticulonodular interstitial thickening within the left lung. This could reflect an infectious process. - IV Zosyn discontinued then transition to Augmentin - Continue Augmentin for now - Completed Doxycycline course - Speech on board for issue with dysphagia- diet advanced to low fiber - Continue PT/OT eval - Consider inpatient rehab -Clinically stable and denies any significant symptoms -Remains stable and will decrease prednisone to 10 mg daily -No acute symptoms. Medically stable to be discharged -Has had PT evaluation and recommended rehab-awaiting placement -Continue physical therapy continue physical therapy -We will discontinue oral prednisone -Remains stable and ready to be discharged Low blood pressure Blood pressure medicine is on hold Will decrease the medications on discharge We will decrease the blood pressure medication Blood pressure remains stable Blood pressure remains in the lower side of normal at 90/59 without any symptom Blood pressure seems to be in the lower side at 102/67-remains in the lower side at 92/60 without any symptom We will decrease losartan to 12.5 mg daily (2) Influenza A: Plan: As above Finished the course of Tamiflu (3) Acute respiratory failure with hypoxia: Plan: As above Appreciate pulmonary input and recommendation Has been requiring 2 L via nasal cannula continuously (4) Left ventricular systolic dysfunction: Plan: Systolic heart failure BNP on admission 682 ECHO showed dilated left ventricle with severe global hypokinesis and estimated left ventricular ejection fraction of around 20 to 25%.Thickening of the pericardium and a small pericardial effusion consistent with chronic pericarditis. 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 with metoprolol succinate 25 mg/day, low-dose ARB, losartan 25 mg and continue colchicine for now Kidney function has remained stable Noted to have low blood pressure and responded well to small volume of normal saline infusion Was advised to drink more fluid (5) Pericardial effusion: Plan: Pericardial effusion ECHO showed moderate sized, loculated anterior and right lateral pericardial effusion Continue Colchicine and prednisone 20mg daily as per recommendation Continue monitor Prednisone dose has been decreased to 10 mg daily Will discontinue prednisone after about 2 to 3 days Prednisone has been discontinued (6) CAD (coronary artery disease): Plan: Status post cardiac stent No acute cardiac symptoms right now Continue current medications Anxiety Received intravenous Precedex and Dilaudid discontinued while in ICU Will continue with gabapentin/lorazepam Has been very anxious as she is not being accepted yet Hypothyroidism Continue supplement DVT prophylaxis Subcu heparin Likely be discharged tomorrow on approval Admission and Anticipated Discharge Date Admission Date: March 10, 2022 Subjective 03/21/2022 The patient was seen and examined in telemetry unit She has been feeling much better and denies any significant symptoms She has noted to have low blood pressure at systolics 87 this morning and received a small volume of intravenous fluid Denies any shortness of breath, palpitation, chest pain, abdominal pain nausea and vomiting 03/22/2022 The patient was seen and examined in telemetry unit She has been stable without any acute symptoms 03/23/2022 The patient was seen and examined in telemetry unit She denies any symptoms today and has been waiting to be placed No cough, wheezing and no shortness of breath 03/24/2022 The patient was seen and examined in telemetry unit She has been stable and waiting to be transferred to rehab Denies any significant symptoms 03/25/2022 The patient was seen and examined in telemetry unit She has been stable and is very anxious to get out of the hospital She has not been accepted yet Has been running low blood pressure and required a small bolus today 03/26/2022 The patient was seen and examined in telemetry unit He has been very upset this morning when she was told that she is doing pretty good and does not require any rehab Things are settling down right now Denies any significant symptoms but is noted to have low blood pressure without any symptoms We will get PT reevaluation 03/27/2022 Patient was seen and examined in telemetry unit She has been getting physical therapy and recommendation was to discharge to rehab Denies any symptoms except weakness Blood pressure seems to be stable 03/28/2022 The patient was seen and examined in telemetry unit in presence of the She has been stable and denies any significant symptoms She has been waiting to be placed 03/29/2022 The patient was seen and examined in medical telemetry unit She has been stable and remains weak and lethargic Denies any other symptoms except ongoing pain involving the extremities 03/30/2022 The patient was seen and examined in medical telemetry unit She remains stable and complains to have some weakness at rest Her pain seems to be controlled She has been waiting to be placed Review of Systems Review of Systems: All systems reviewed and are unremarkable except as noted below Musculoskeletal: Remains generally weak and lethargic Physical Exam Physical Exam: Lying in bed comfortably Constitutional: well developed, well nourished, + ill appearing and + obese Eyes: PERRL, conjunctivae normal, anicteric sclerae ENMT: external ear and nose normal, oropharynx normal Neck: trachea midline, no thyromegaly Respiratory: no respiratory distress Auscultation: + diminished lung sounds and + crackles (Minimal crackles at the bases) Cardiovascular: Rate/Rhythm: regular rate and regular rhythm; not tachycardic Heart Sounds: normal S1 and normal S2; no murmur Extremities: no edema Gastrointestinal (Abdomen): Inspection/Auscultation: abdomen normal to inspection Percussion/Palpation: abdomen soft; abdomen nontender Musculoskeletal: Extremities: extremities normal to inspection Neurologic: normal touch/pain/proprioception and CN's II-XI intact bilaterally Psychiatric: A+Ox3, euthymic affect Lymphatic: no cervical or axillary lymphadenopathy Results & Data Results & Data ([facility]) Vital Signs (Past 12 Hours) Vital Signs Temp Pulse Pulse Resp BP Pulse Ox 03/30/22 11:53 36.9 C 80 18 92/60 L 99 03/30/22 07:18 36.7 C 70 18 104/71 99 03/30/22 07:07 64 03/30/22 03:33 36.4 C L 69 16 102/64 96 Medications Administered Current Inpatient Medications Acetaminophen (Acetaminophen 325 Mg Tab) 650 mg PO Q6H PRN PRN Reason: Fever/pain Stop: 04/16/22 19:22 Last Admin: 03/21/22 23:55 Dose: 650 mg Documented by: Aspirin (Aspirin 81 Mg Chew) 81 mg NG QAM [facility] Stop: 04/12/22 08:59 Last Admin: 03/30/22 12:16 Dose: 81 mg Documented by: Colchicine (Colchicine 0.6 Mg Tab) 0.6 mg PO BID JUDITH Stop: 04/18/22 11:14 Last Admin: 03/30/22 08:50 Dose: 0.6 mg Documented by: Dextrose (Dextrose 50% 50 Ml Syringe) 25 - 50 ml IV UD PRN; Protocol PRN Reason: Hypoglycemia Protocol Stop: 04/13/22 06:38 Docusate Sodium (Docusate Sodium Syrup 100 Mg/10 Ml Udc) 100 mg PO BID JUDITH Stop: 04/12/22 10:44 Last Admin: 03/30/22 08:52 Dose: Not Given Documented by: Fluticasone/Vilanterol (Fluticasone/Vilanterol 100/25mcg 14 Puffs/Inhaler) 1 puffs INH DAILY JUDITH Stop: 04/11/22 10:59 Last Admin: 03/30/22 08:48 Dose: 1 puffs Documented by: Folic Acid (Folic Acid 1 Mg Tab) 1 mg PO QAM [facility] Stop: 04/09/22 10:31 Last Admin: 03/30/22 08:50 Dose: 1 mg Documented by: Gabapentin (Gabapentin 100 Mg Cap) 100 mg PO TID JUDITH Stop: 04/13/22 08:59 Last Admin: 03/30/22 13:38 Dose: 100 mg Documented by: Glucagon (Glucagon For Inj 1 Mg Vial) 1 mg SQ UD PRN; Protocol PRN Reason: Hypoglycemia Protocol Stop: 04/13/22 06:38 Glucose (Glucose 10 Tabs/Tube) 4 - 8 tabs PO UD PRN; Protocol PRN Reason: Hypoglycemia Protocol Stop: 04/13/22 06:38 Glucose (Glucose 40% Gel 15 Gm Tube) 15 - 30 gm PO UD PRN; Protocol PRN Reason: Hypoglycemia Protocol Stop: 04/13/22 06:38 Heparin Sodium (Porcine) (Heparin Sod 5,000 Unit/0.5 Ml Vial) 5,000 units SC Q12 JUDITH Stop: 04/12/22 20:59 Last Admin: 03/30/22 08:52 Dose: 5,000 units Documented by: Insulin Aspart (Insulin Aspart Per Unit) 0 units SC [facility]; Protocol Stop: 04/26/22 07:29 Last Admin: 03/30/22 11:46 Dose: Not Given Documented by: Ipratropium [place] (Ipratropium [place] Neb Soln 0.02% 2.5 Ml Vial) 0.5 mg INH Q2R PRN PRN Reason: Shortness Of Breath Or Wheezing Stop: 04/09/22 10:31 Last Admin: 03/27/22 07:11 Dose: 0.5 mg Documented by: Lansoprazole (Lansoprazole 30 Mg Soltab) [address] [facility] Stop: 04/12/22 10:44 Last Admin: 03/30/22 08:50 Dose: 30 mg Documented by: Levalbuterol HCl (Levalbuterol Hcl 1.25 Mg/3 Ml Neb) 1.25 mg NEB Q2R PRN; Protocol PRN Reason: Shortness Of Breath Or Wheezing Stop: 04/09/22 10:31 Last Admin: 03/27/22 07:11 Dose: 1.25 mg Documented by: Levothyroxine Sodium (Levothyroxine Sodium 75 Mcg Tablet) [facility] Stop: 04/10/22 06:29 Last Admin: 03/30/22 05:36 Dose: 75 mcg Documented by: Lorazepam (Lorazepam 0.5 Mg Tab) 0.5 mg PO TID PRN PRN Reason: Anxiety Stop: 04/17/22 06:29 Last Admin: 03/30/22 08:51 Dose: 0.5 mg Documented by: Losartan Potassium (Losartan Potassium 25 Mg Tab) [address] [facility] Stop: 04/21/22 09:44 Last Admin: 03/30/22 08:49 Dose: 25 mg Documented by: Metoprolol Succinate (Metoprolol Succ 25mg Ext Rel Tab) [address] [facility] Stop: 04/17/22 14:14 Last Admin: 03/30/22 08:49 Dose: 25 mg Documented by: Miscellaneous (Carbohydrates For Hypoglycemia ) 15 - 30 gm PO UD PRN PRN Reason: Hypoglycemia Protocol Stop: 04/13/22 06:38 Last Admin: 03/26/22 20:56 Dose: 15 gm Documented by: Ondansetron HCl (Ondansetron Inj 2 Mg/Ml 2 Ml Vial) 4 mg IV Q6H PRN PRN Reason: Nausea And Vomiting Stop: 04/09/22 20:41 Last Admin: 03/29/22 14:30 Dose: 4 mg Documented by: Oxycodone HCl (Oxycodone Hcl Ir 5 Mg Tab (Immediate Release)) 5 mg PO Q4H PRN PRN Reason: Pain Stop: 03/31/22 22:05 Last Admin: 03/30/22 13:38 Dose: 5 mg Documented by: Pregabalin (Pregabalin 75 Mg Cap) 75 mg PO TID [facility] Stop: 04/10/22 13:59 Last Admin: 03/11/22 14:14 Dose: Not Given Documented by: Sennosides (Sennosides 8.8 Mg/5 Ml Udc) 8.8 mg PO BID [facility] Stop: 04/12/22 10:44 Last Admin: 03/30/22 08:51 Dose: Not Given Documented by: Tizanidine HCl (Tizanidine Hcl 4 Mg Tablet) 2 mg PO TID PRN PRN Reason: Muscle Spasm Stop: 04/09/22 10:31 Last Admin: 03/10/22 12:02 Dose: 2 mg Documented by: Tizanidine HCl (Tizanidine Hcl 4 Mg Tablet) 2 mg PO BID [facility] Stop: 04/18/22 20:59 Last Admin: 03/30/22 08:49 Dose: 2 mg Documented by: Umeclidinium [place] (Umeclidinium [place] 62.5mcg/Blister 7 Puffs/Inhaler) [address] [facility]; Protocol Stop: 04/09/22 10:59 Last Admin: 03/30/22 08:48 Dose: 1 puffs Documented by: Vitamin D (Cholecalciferol 1,000 Units 25 Mcg Tab) 2,[address] [facility] Stop: 04/09/22 10:31 Last Admin: 03/30/22 08:51 Dose: 2,000 units Documented by:
[2022-03-31] MEDS: oxyCODONE HCL IR 5 MG TAB (IMMEDIATE RELEASE) PO PRN ×4 (02:39→21:52)
[2022-03-31] MEDS: LEVOTHYROXINE SODIUM 75 MCG TABLET PO SCH (05:31)
[2022-03-31 07:34] LABS: Basophils # (auto) 0.02 K/uL (0-0.2); Basophils % (auto) 0.3 %; Eosinophils # (auto) 0.36 K/uL (0-0.5); Eosinophils % (auto) 4.6 %; Hematocrit (blood only) 38.1 % (37-47); Hemoglobin 12.5 g/dL (12.0-16.0); Immature Granulocytes # (auto) 0.02 K/uL (0.00-0.02); Immature Granulocytes % (auto) 0.3 %; Lymphocytes % (auto) 44.9 %; Mean Corpuscular Hemoglobin 31.4 pg (25-34); Mean Corpuscular Hgb Conc 32.8 g/dL (32-36); Mean Corpuscular Volume 95.7 fL (80-100); Mean Platelet Volume 9.7 fL (7.4-10.4); Monocytes % (auto) 6.4 %; Neutrophils % (auto) 43.5 %; Platelet Count 249 K/uL (130-400); RDW Coefficient of Variation 14.6 % (11.5-14.5); RDW Standard Deviation 51.2 fL (36.4-46.3); Red Blood Count 3.98 M/uL (4.2-5.4)
[2022-03-31 07:37] LABS: BUN Creatinine Ratio 15.2 (10-20); Calcium 8.9 mg/dl (8.5-10.1); Creatinine Clr Calc Pharmacy 59.5 ml/min; Est GFR (African American) 80.1 ml/min; Est GFR (Non-African American) 69.1 ml/min; Potassium 3.3 mmol/L (3.5-5.1)
[2022-03-31] MEDS: LOSARTAN POTASSIUM 25 MG TAB PO SCH (07:55)
[2022-03-31] MEDS: tiZANidine HCL 4 MG TABLET PO SCH ×2 (07:55→21:49)
[2022-03-31] MEDS: METOPROLOL SUCC 25MG EXT REL TAB PO SCH (07:56)
[2022-03-31] MEDS: LORazepam 0.5 MG TAB PO PRN ×2 (08:00→16:05)
[2022-03-31] MEDS: UMECLIDINIUM BROMIDE 62.5MCG/BLISTER 7 PUFFS/INHALER INH SCH (08:01)
[2022-03-31] MEDS: FLUTICASONE/VILANTEROL 100/25MCG 14 PUFFS/INHALER INH SCH (08:01)
[2022-03-31] MEDS: CHOLECALCIFEROL 1,000 UNITS 25 MCG TAB PO SCH (08:02)
[2022-03-31] MEDS: GABAPENTIN 100 MG CAP PO SCH ×3 (08:02→21:47)
[2022-03-31] MEDS: COLCHICINE 0.6 MG TAB PO SCH ×2 (08:02→21:46)
[2022-03-31] MEDS: LANSOPRAZOLE 30 MG SOLTAB NG SCH (08:02)
[2022-03-31] MEDS: FOLIC ACID 1 MG TAB PO SCH (08:02)
[2022-03-31] MEDS: HEPARIN SOD 5,000 UNIT/0.5 ML VIAL SC SCH ×2 (08:02→21:47)
[2022-03-31] MEDS: INSULIN ASPART PER UNIT SC SCH ×4 (08:31→21:48)
[2022-03-31] MEDS: ASPIRIN 81 MG CHEW NG SCH (08:32)
[2022-03-31] MEDS: SENNOSIDES 8.8 MG/5 ML UDC PO SCH ×3 (08:32→21:54)
[2022-03-31] MEDS: DOCUSATE SODIUM SYRUP 100 MG/10 ML UDC PO SCH ×3 (08:32→21:54)
[2022-03-31] MEDS ORDERED: POTASSIUM CHLORIDE 10 MEQ TABCR PO STA (09:41)
--- NOTE | 2022-03-31 22:31 | Hospitalist Progress Note ---
Date of Service March 31, 2022 Assessment & Plan (1) Acute exacerbation of chronic obstructive pulmonary disease: (2) Acute respiratory failure with hypercapnia: (3) Influenza A: Plan: Acute hypercarbic respiratory failure COPD exacerbation Influenza A CXR showedIll-defined nodule versus airspace disease of the left upper lobe. Repeat CXR showed Interval improvement in left lung airspace opacities. - Patient has tenuous respiratory status and unable to wean off BIPAP. Had increasing work of breathing with ABG showing severe hypercapnia and acidosis and transferred to ICU for closer monitoring and possible need for intubation. -S/P mechanical vent support, then extuabetd on 03/15 -Propofol and Precedex drips discontinued - IV doxycycline. IV cefepime changed to Zosyn - Currently on PO prednisone, Continue taper prednisone - CXR shows mildly increased interstitial markings - Repeat cxrshowed no change in subtle reticulonodular interstitial thickening within the left lung. This could reflect an infectious process. -She has been on many abx with doxycycline, Cefepime, and Zosyn and Augmentin - Completed the course of the antibiotic with augmentin and doxycycline - Speech on board- Diet advanced to low fiber - Continue PT/OT eval - Consider inpatient rehab- But she was denies by rehab since she has been doing better - She said that she does not feel safe to go home with home health because her works - Nurse said that pt has been doing well by taking care herself here - She is frustrated because she thought the hospital made the decision not to send her to rehab Elevated troponin Stress induce d cardiomyopathy Trop slightly increased to 0.041 IV heparin drip was discontinued Cardiology on board Metoprolol changed to IV since pt is NPO Repeat ECHO showed Moderate diffuse Left ventricular Hypokinesis with EF 35-39% Continue aspirin and metoprolol Pericardial effusion ECHO showed moderate sized, loculated anterior and right lateral pericardial effusion Continue Colchicine BID Completed the course of the prednisone Stable Dysphagia Speech on board Tolerated low fiber diet Aspiration precaution Systolic heart failure BNP on admission 682 ECHO showed dilated left ventricle with severe global hypokinesis and estimated left ventricular ejection fraction of around 20 to 25%.Thickening of the pericardium and a small pericardial effusion consistent with chronic pericarditis. Repeat ECHO showed Moderate diffuse Left ventricular Hypokinesis with EF 35-39% Cardiology on board Continue Metoprolol 25mg daily and low dose Losartan Continue monitor BMP Hypotension Levophed discontinued BP has been running in the low side Continue Losartan 12.5 mg and Metoprolol 25mg Continue monitor BP Anxiety IV Precedex drip discontinued while in the ICU Continue gabapentin /Lorazepam CAD s/p stenting Continue aspirin, metoprolol GERD- On PPI Hypothyroidism Continue Synthroid DVT prophylaxis- Heparin subq Disposition She was not accepted by rehab. She is very frustrated about the decision She is planning to appeal it. if appeal fails, plan to discharge home with home health Admission and Anticipated Discharge Date Admission Date: March 10, 2022 Subjective Pt was seen and examined for follow up Lying in bed with no acute distress Pt is getting upset because she was denied rehab since she has been doing well She said that she does not feel safe to go home with home health because her works Nurse said that pt has been doing well by taking care herself here She is frustrated because she thought i made the decision not to send her to rehab I tried to explained to her the process by getting to rehab but she was not willing to listen by interrupting me When I saw her early she in the morning she was nice and did not have any complaint Review of Systems Review of Systems: All systems reviewed & are unremarkable except as noted in Subjective Physical Exam Physical Exam: General- Vent support on sedation Head- atraumatic Eyes- PERRL, EOMI, ENT- No trachea deviation, tongue midline Neck- supple, no JVD Lungs- Diminished BS Heart- regular rhythm; no murmur Abdomen- normal bowel sounds, soft, nontender Extremities- no calf tenderness Neuro- AA0x3, move all 4 extremities, EOMI Skin- warm & dry Results & Data Results & Data ([facility]) Vital Signs (Past 12 Hours) Vital Signs Temp Pulse Pulse Resp BP BP Pulse Ox 03/31/22 19:41 36.8 C 64 18 91/55 L 98 03/31/22 15:56 37 C 69 18 94/63 L 98 03/31/22 11:27 36.8 C 68 17 88/55 L 100 03/31/22 10:36 69
[2022-04-01] MEDS: LORazepam 0.5 MG TAB PO PRN ×3 (01:26→21:18)
[2022-04-01] MEDS: LEVOTHYROXINE SODIUM 75 MCG TABLET PO SCH (05:52)
[2022-04-01] MEDS: oxyCODONE HCL IR 5 MG TAB (IMMEDIATE RELEASE) PO PRN ×4 (06:16→21:18)
[2022-04-01] MEDS: SENNOSIDES 8.8 MG/5 ML UDC PO SCH ×2 (08:35→20:33)
[2022-04-01] MEDS: FLUTICASONE/VILANTEROL 100/25MCG 14 PUFFS/INHALER INH SCH (08:35)
[2022-04-01] MEDS: UMECLIDINIUM BROMIDE 62.5MCG/BLISTER 7 PUFFS/INHALER INH SCH (08:35)
[2022-04-01] MEDS: DOCUSATE SODIUM SYRUP 100 MG/10 ML UDC PO SCH ×2 (08:35→20:32)
[2022-04-01] MEDS: ASPIRIN 81 MG CHEW NG SCH (08:36)
[2022-04-01] MEDS: tiZANidine HCL 4 MG TABLET PO SCH ×2 (08:36→20:34)
[2022-04-01] MEDS: COLCHICINE 0.6 MG TAB PO SCH ×2 (08:36→20:32)
[2022-04-01] MEDS: HEPARIN SOD 5,000 UNIT/0.5 ML VIAL SC SCH ×2 (08:36→20:33)
[2022-04-01] MEDS: GABAPENTIN 100 MG CAP PO SCH ×3 (08:37→20:32)
[2022-04-01] MEDS: LOSARTAN POTASSIUM 25 MG TAB PO SCH (08:37)
[2022-04-01] MEDS: CHOLECALCIFEROL 1,000 UNITS 25 MCG TAB PO SCH (08:37)
[2022-04-01] MEDS: LANSOPRAZOLE 30 MG SOLTAB NG SCH (08:38)
[2022-04-01] MEDS: METOPROLOL SUCC 25MG EXT REL TAB PO SCH (08:38)
[2022-04-01] MEDS: FOLIC ACID 1 MG TAB PO SCH (08:38)
[2022-04-01] MEDS: INSULIN ASPART PER UNIT SC SCH ×4 (08:39→20:33)
[2022-04-01 10:08] LABS: BUN Creatinine Ratio 12.1 (10-20); Calcium 9.1 mg/dl (8.5-10.1); Creatinine Clr Calc Pharmacy 56.2 ml/min; Est GFR (African American) 81.2 ml/min; Potassium 3.6 mmol/L (3.5-5.1)
[2022-04-01] MEDS: ONDANSETRON INJ 2 MG/ML 2 ML VIAL IV PRN (15:55)
--- NOTE | 2022-04-01 17:02 | Hospitalist Progress Note ---
Date of Service April 01, 2022 Assessment & Plan (1) Acute exacerbation of chronic obstructive pulmonary disease: (2) Acute respiratory failure with hypercapnia: (3) Influenza A: Plan: Acute hypercarbic respiratory failure COPD exacerbation Influenza A CXR showedIll-defined nodule versus airspace disease of the left upper lobe. Repeat CXR showed Interval improvement in left lung airspace opacities. -Patient has tenuous respiratory status and unable to wean off BIPAP. Had increasing work of breathing with ABG showing severe hypercapnia and acidosis and transferred to ICU for closer monitoring and possible need for intubation. -S/P mechanical vent support, then extuabetd on 03/15 -Propofol and Precedex drips discontinued - IV doxycycline. IV cefepime changed to Zosyn - Currently on PO prednisone, Continue taper prednisone - CXR shows mildly increased interstitial markings - Repeat cxrshowed no change in subtle reticulonodular interstitial thickening within the left lung. This could reflect an infectious process. -She has been on many abx with doxycycline, Cefepime, and Zosyn and Augmentin - Completed the course of the antibiotic with augmentin and doxycycline - Speech on board- Diet advanced to low fiber - Continue PT/OT eval - Consider inpatient rehab- But she was denies by rehab since she has been doing better - She said that she does not feel safe to go home with home health because her works - Nurse said that pt has been doing well by taking care herself here - She is frustrated because she thought the hospital made the decision not to send her to rehab - waiting for decision from [facility]. if denies, will discharge home with HH Elevated troponin Stress induce d cardiomyopathy Trop slightly increased to 0.041 IV heparin drip was discontinued Cardiology on board Metoprolol changed to IV since pt is NPO Repeat ECHO showed Moderate diffuse Left ventricular Hypokinesis with EF 35-39% Continue aspirin and metoprolol Pericardial effusion ECHO showed moderate sized, loculated anterior and right lateral pericardial effusion Continue Colchicine BID Completed the course of the prednisone Stable Dysphagia Speech on board Tolerated low fiber diet Aspiration precaution Systolic heart failure BNP on admission 682 ECHO showed dilated left ventricle with severe global hypokinesis and estimated left ventricular ejection fraction of around 20 to 25%.Thickening of the pericardium and a small pericardial effusion consistent with chronic pericarditis. Repeat ECHO showed Moderate diffuse Left ventricular Hypokinesis with EF 35-39% Cardiology on board Continue Metoprolol 25mg daily and low dose Losartan Continue monitor BMP Hypotension Levophed discontinued BP has been running in the low side Continue Losartan 12.5 mg and Metoprolol 25mg Continue monitor BP Anxiety IV Precedex drip discontinued while in the ICU Continue gabapentin /Lorazepam CAD s/p stenting Continue aspirin, metoprolol GERD- On PPI Hypothyroidism Continue Synthroid DVT prophylaxis- Heparin subq Disposition She was not accepted by rehab. She is very frustrated about the decision She is planning to appeal it. if appeal fails, plan to discharge home with home health Admission and Anticipated Discharge Date Admission Date: March 10, 2022 Subjective Pt was seen and examined for follow up Lying in bed with no acute distress Pt participated in therapy today She said that she feels Ok Pt said that she appealed for the discharge because she does not feel safe to go home denies any chest pain, palpitation, dizziness and SOB Review of Systems Review of Systems: All systems reviewed & are unremarkable except as noted in Subjective Physical Exam Physical Exam: General- Vent support on sedation Head- atraumatic Eyes- PERRL, EOMI, ENT- No trachea deviation, tongue midline Neck- supple, no JVD Lungs- Diminished BS Heart- regular rhythm; no murmur Abdomen- normal bowel sounds, soft, nontender Extremities- no calf tenderness Neuro- AA0x3, move all 4 extremities, EOMI Skin- warm & dry Results & Data Results & Data ([facility]) Vital Signs (Past 12 Hours) Vital Signs Temp Pulse Pulse Pulse Resp BP BP 04/01/22 15:12 88 04/01/22 11:52 37.0 C 69 16 98/52 L 04/01/22 08:30 86 102/76 04/01/22 07:19 83 04/01/22 06:36 36.8 C 77 18 96/62 L Pulse Ox 04/01/22 15:12 04/01/22 11:52 99 04/01/22 08:30 04/01/22 07:19 04/01/22 06:36 94
[2022-04-02] MEDS: oxyCODONE HCL IR 5 MG TAB (IMMEDIATE RELEASE) PO PRN ×4 (03:13→18:16)
[2022-04-02] MEDS: LEVOTHYROXINE SODIUM 75 MCG TABLET PO SCH (06:41)
[2022-04-02] MEDS: INSULIN ASPART PER UNIT SC SCH ×4 (08:09→20:17)
[2022-04-02] MEDS: HEPARIN SOD 5,000 UNIT/0.5 ML VIAL SC SCH ×2 (08:10→20:16)
[2022-04-02] MEDS: tiZANidine HCL 4 MG TABLET PO SCH ×2 (08:10→20:17)
[2022-04-02] MEDS: METOPROLOL SUCC 25MG EXT REL TAB PO SCH (08:12)
[2022-04-02] MEDS: FOLIC ACID 1 MG TAB PO SCH (08:13)
[2022-04-02] MEDS: CHOLECALCIFEROL 1,000 UNITS 25 MCG TAB PO SCH (08:13)
[2022-04-02] MEDS: ASPIRIN 81 MG CHEW NG SCH (08:13)
[2022-04-02] MEDS: GABAPENTIN 100 MG CAP PO SCH ×3 (08:14→20:16)
[2022-04-02] MEDS: LANSOPRAZOLE 30 MG SOLTAB NG SCH (08:14)
[2022-04-02] MEDS: COLCHICINE 0.6 MG TAB PO SCH ×2 (08:14→20:14)
[2022-04-02] MEDS: FLUTICASONE/VILANTEROL 100/25MCG 14 PUFFS/INHALER INH SCH (08:15)
[2022-04-02] MEDS: DOCUSATE SODIUM SYRUP 100 MG/10 ML UDC PO SCH ×2 (08:15→20:15)
[2022-04-02] MEDS: UMECLIDINIUM BROMIDE 62.5MCG/BLISTER 7 PUFFS/INHALER INH SCH (08:15)
[2022-04-02] MEDS: SENNOSIDES 8.8 MG/5 ML UDC PO SCH ×2 (08:15→20:17)
[2022-04-02] MEDS: LORazepam 0.5 MG TAB PO PRN ×2 (12:06→19:12)
--- NOTE | 2022-04-02 16:55 | Hospitalist Progress Note ---
Date of Service April 02, 2022 Assessment & Plan (1) Acute exacerbation of chronic obstructive pulmonary disease: (2) Acute respiratory failure with hypercapnia: (3) Influenza A: Plan: Acute hypercarbic respiratory failure COPD exacerbation Influenza A CXR showedIll-defined nodule versus airspace disease of the left upper lobe. Repeat CXR showed Interval improvement in left lung airspace opacities. -Patient has tenuous respiratory status and unable to wean off BIPAP. Had increasing work of breathing with ABG showing severe hypercapnia and acidosis and transferred to ICU for closer monitoring and possible need for intubation. -S/P mechanical vent support, then extuabetd on 03/15 -Propofol and Precedex drips discontinued - IV doxycycline. IV cefepime changed to Zosyn - Currently on PO prednisone, Continue taper prednisone - CXR shows mildly increased interstitial markings - Repeat cxrshowed no change in subtle reticulonodular interstitial thickening within the left lung. This could reflect an infectious process. -She has been on many abx with doxycycline, Cefepime, and Zosyn and Augmentin - Completed the course of the antibiotic with augmentin and doxycycline - Speech on board- Diet advanced to low fiber - Continue PT/OT eval - Consider inpatient rehab- But she was denies by rehab since she has been doing better - She said that she does not feel safe to go home with home health because her works - Nurse said that pt has been doing well by taking care herself here - She is frustrated because she thought the hospital made the decision not to send her to rehab - waiting for decision from [facility]. if denies, will discharge home with - Just found out from telephonic case manager that insurance denied SNF Elevated troponin Stress induce d cardiomyopathy Trop slightly increased to 0.041 IV heparin drip was discontinued Cardiology on board Metoprolol changed to IV since pt is NPO Repeat ECHO showed Moderate diffuse Left ventricular Hypokinesis with EF 35-39% Continue aspirin and metoprolol Pericardial effusion ECHO showed moderate sized, loculated anterior and right lateral pericardial effusion Continue Colchicine BID Completed the course of the prednisone Stable Dysphagia Speech on board Tolerated low fiber diet Aspiration precaution Systolic heart failure BNP on admission 682 ECHO showed dilated left ventricle with severe global hypokinesis and estimated left ventricular ejection fraction of around 20 to 25%.Thickening of the pericardium and a small pericardial effusion consistent with chronic pericarditis. Repeat ECHO showed Moderate diffuse Left ventricular Hypokinesis with EF 35-39% Cardiology on board Continue Metoprolol 25mg daily and low dose Losartan Continue monitor BMP Hypotension Levophed discontinued BP has been running in the low side Will hold Losartan 12.5 mg and Metoprolol 25mg Continue monitor BP Anxiety IV Precedex drip discontinued while in the ICU Continue gabapentin /Lorazepam CAD s/p stenting Continue aspirin, metoprolol GERD- On PPI Hypothyroidism Continue Synthroid DVT prophylaxis- Heparin subq Disposition She was not accepted by rehab. She is very frustrated about the decision She is planning to appeal it. if appeal fails, plan to discharge home with home health Admission and Anticipated Discharge Date Admission Date: March 10, 2022 Subjective Pt was seen and examined for follow up Lying in bed with no acute distress She said that she feels Ok denies any chest pain, palpitation, dizziness and SOB Review of Systems Review of Systems: All systems reviewed & are unremarkable except as noted in Subjective Physical Exam Physical Exam: General- Vent support on sedation Head- atraumatic Eyes- PERRL, EOMI, ENT- No trachea deviation, tongue midline Neck- supple, no JVD Lungs- Diminished BS Heart- regular rhythm; no murmur Abdomen- normal bowel sounds, soft, nontender Extremities- no calf tenderness Neuro- AA0x3, move all 4 extremities, EOMI Skin- warm & dry Results & Data Results & Data ([facility]) Vital Signs (Past 12 Hours) Vital Signs Temp Pulse Pulse Pulse Resp BP Pulse Ox 04/02/22 15:40 88/52 L 04/02/22 14:53 82 04/02/22 14:27 37.0 C 76 18 87/54 L 99 04/02/22 11:12 36.9 C 71 18 92/48 L 99 04/02/22 08:22 94/54 L 04/02/22 07:40 36.7 C 76 18 87/62 L 99 04/02/22 07:11 69
[2022-04-02] MEDS: ONDANSETRON INJ 2 MG/ML 2 ML VIAL IV PRN (21:16)
[2022-04-03] MEDS: LEVOTHYROXINE SODIUM 75 MCG TABLET PO SCH (05:42)
[2022-04-03] MEDS: CHOLECALCIFEROL 1,000 UNITS 25 MCG TAB PO SCH (07:48)
[2022-04-03] MEDS: COLCHICINE 0.6 MG TAB PO SCH ×2 (07:48→20:19)
[2022-04-03] MEDS: INSULIN ASPART PER UNIT SC SCH ×2 (07:48→12:20)
[2022-04-03] MEDS: FOLIC ACID 1 MG TAB PO SCH (07:49)
[2022-04-03] MEDS: METOPROLOL SUCC 25MG EXT REL TAB PO SCH (07:49)
[2022-04-03] MEDS: ASPIRIN 81 MG CHEW NG SCH (07:49)
[2022-04-03] MEDS: LANSOPRAZOLE 30 MG SOLTAB NG SCH (07:50)
[2022-04-03] MEDS: GABAPENTIN 100 MG CAP PO SCH ×3 (07:50→20:22)
[2022-04-03] MEDS: HEPARIN SOD 5,000 UNIT/0.5 ML VIAL SC SCH ×2 (07:50→20:21)
[2022-04-03] MEDS: DOCUSATE SODIUM SYRUP 100 MG/10 ML UDC PO SCH ×2 (07:51→20:20)
[2022-04-03] MEDS: SENNOSIDES 8.8 MG/5 ML UDC PO SCH ×2 (07:51→20:21)
[2022-04-03] MEDS: FLUTICASONE/VILANTEROL 100/25MCG 14 PUFFS/INHALER INH SCH (07:52)
[2022-04-03] MEDS: UMECLIDINIUM BROMIDE 62.5MCG/BLISTER 7 PUFFS/INHALER INH SCH (07:52)
[2022-04-03] MEDS: tiZANidine HCL 4 MG TABLET PO SCH ×2 (07:52→20:20)
[2022-04-03 08:01] LABS: Hematocrit (blood only) 36.4 % (37-47); Hemoglobin 12.1 g/dL (12.0-16.0); Mean Corpuscular Hgb Conc 33.2 g/dL (32-36); Mean Corpuscular Volume 93.3 fL (80-100); Mean Platelet Volume 9.6 fL (7.4-10.4); Platelet Count 218 K/uL (130-400); RDW Coefficient of Variation 14.6 % (11.5-14.5); White Blood Count 4.97 K/uL (4.8-10.8)
[2022-04-03] MEDS: LORazepam 0.5 MG TAB PO PRN ×2 (08:04→15:25)
[2022-04-03] MEDS: oxyCODONE HCL IR 5 MG TAB (IMMEDIATE RELEASE) PO PRN ×3 (08:04→17:06)
[2022-04-03 08:35] LABS: BUN Creatinine Ratio 10.7 (10-20); Calcium 8.9 mg/dl (8.5-10.1); Creatinine Clr Calc Pharmacy 58.9 ml/min; Est GFR (African American) 89.4 ml/min; Est GFR (Non-African American) 77.2 ml/min; Potassium 3.5 mmol/L (3.5-5.1)
[2022-04-03] MEDS ORDERED: SODIUM CHLORIDE 0.9% 500 ML IV STA (11:33)
--- NOTE | 2022-04-03 11:35 | Hospitalist Progress Note ---
Date of Service April 03, 2022 Assessment & Plan (1) Acute exacerbation of chronic obstructive pulmonary disease: Plan: AskedAcute hypoxic and hypercarbic respiratory failure COPD exacerbation Complicated by Influenza A CXR showedIll-defined nodule versus airspace disease of the left upper lobe. Repeat CXR showed Interval improvement in left lung airspace opacities. - Patient has tenuous respiratory status and unable to wean off BIPAP. Had i ncreasing work of breathing with ABG showing severe hypercapnia and acidosis and transferred to ICU for closer monitoring and possible need for intubation. -S/P mechanical vent support, then extuabetd on 03/15 -Propofol and Precedex drips discontinued - Continue IV doxycycline. IV cefepime changed to Zosyn - Currently on PO prednisone, Continue taper prednisone - CXR shows mildly increased interstitial markings - Repeat cxrshowed no change in subtle reticulonodular interstitial thickening within the left lung. This could reflect an infectious process. - IV Zosyn discontinued then transition to Augmentin - Continue Augmentin for now - Completed Doxycycline course - Speech on board for issue with dysphagia- diet advanced to low fiber - Continue PT/OT eval - Consider inpatient rehab -Clinically stable and denies any significant symptoms -Remains stable and will decrease prednisone to 10 mg daily -No acute symptoms. Medically stable to be discharged -Has had PT evaluation and recommended rehab-awaiting placement -Continue physical therapy continue physical therapy -We will discontinue oral prednisone -Has been stable and is accepted to [facility] -[facility]-2 KS is done and she will be going tomorrow Low blood pressure Blood pressure medicine is on hold Will decrease the medications on discharge We will decrease the blood pressure medication Blood pressure remains stable Blood pressure remains in the lower side of normal at 90/59 without any symptom Blood pressure seems to be in the lower side at 102/67-remains in the lower side at 92/60 without any symptom We will decrease losartan to 12.5 mg daily Losartan has been discontinued due to low blood pressure We will continue with beta-lynne and she was advised to increase more fluid (2) Influenza A: Plan: As above Finished the course of Tamiflu (3) Acute respiratory failure with hypoxia: Plan: As above Appreciate pulmonary input and recommendation Has been requiring 2 L via nasal cannula continuously (4) Left ventricular systolic dysfunction: Plan: Systolic heart failure BNP on admission 682 ECHO showed dilated left ventricle with severe global hypokinesis and estimated left ventricular ejection fraction of around 20 to 25%.Thickening of the pericardium and a small pericardial effusion consistent with chronic pericarditis. Repeat ECHO showed Moderate diffuse Left ventricular Hypokinesis with EF 35-39% Cardiology on board-appreciate input and recommendation Continue Entresto starting yesterday 03/19/22 by cardiology Cardiac medications have been readjusted by the restaurant hourly manager with metoprolol succinate 25 mg/day, low-dose ARB, losartan 25 mg and continue colchicine for now Kidney function has remained stable Noted to have low blood pressure and responded well to small volume of normal saline infusion Was advised to drink more fluid (5) Pericardial effusion: Plan: Pericardial effusion ECHO showed moderate sized, loculated anterior and right lateral pericardial effusion Continue Colchicine and prednisone 20mg daily as per recommendation Continue monitor Prednisone dose has been decreased to 10 mg daily Will discontinue prednisone after about 2 to 3 days Prednisone has been discontinued (6) CAD (coronary artery disease): Plan: Status post cardiac stent No acute cardiac symptoms right now Continue current medications Anxiety Received intravenous Precedex and Dilaudid discontinued while in ICU Will continue with gabapentin/lorazepam Has been very anxious as she is not being accepted yet Hypothyroidism Continue supplement DVT prophylaxis Subcu heparin She has been accepted and is approved to go to [facility] Admission and Anticipated Discharge Date Admission Date: March 10, 2022 Subjective 03/21/2022 The patient was seen and examined in telemetry unit She has been feeling much better and denies any significant symptoms She has noted to have low blood pressure at systolics 87 this morning and receiv ed a small volume of intravenous fluid Denies any shortness of breath, palpitation, chest pain, abdominal pain nausea and vomiting 03/22/2022 The patient was seen and examined in telemetry unit She has been stable without any acute symptoms 03/23/2022 The patient was seen and examined in telemetry unit She denies any symptoms today and has been waiting to be placed No cough, wheezing and no shortness of breath 03/24/2022 The patient was seen and examined in telemetry unit She has been stable and waiting to be transferred to rehab Denies any significant symptoms 03/25/2022 The patient was seen and examined in telemetry unit She has been stable and is very anxious to get out of the hospital She has not been accepted yet Has been running low blood pressure and required a small bolus today 03/26/2022 The patient was seen and examined in telemetry unit He has been very upset this morning when she was told that she is doing pretty good and does not require any rehab Things are settling down right now Denies any significant symptoms but is noted to have low blood pressure without any symptoms We will get PT reevaluation 03/27/2022 Patient was seen and examined in telemetry unit She has been getting physical therapy and recommendation was to discharge to rehab Denies any symptoms except weakness Blood pressure seems to be stable 03/28/2022 The patient was seen and examined in telemetry unit in presence of the She has been stable and denies any significant symptoms She has been waiting to be placed 03/29/2022 The patient was seen and examined in medical telemetry unit She has been stable and remains weak and lethargic Denies any other symptoms except ongoing pain involving the extremities 03/30/2022 The patient was seen and examined in medical telemetry unit She remains stable and complains to have some weakness at rest Her pain seems to be controlled She has been waiting to be placed 04/03/2022 The patient was seen and examined in medical telemetry unit She was noted to have a very low blood pressure this morning at systolic 70 Did not have any symptoms associated with it She received 500 mL of normal saline bolus Denies any symptoms Review of Systems Review of Systems: All systems reviewed and are unremarkable except as noted below Musculoskeletal: Remains generally weak and lethargic Physical Exam Physical Exam: Lying in bed comfortably Constitutional: well developed, well nourished, + ill appearing and + obese Eyes: PERRL, conjunctivae normal, anicteric sclerae ENMT: external ear and nose normal, oropharynx normal Neck: trachea midline, no thyromegaly Respiratory: no respiratory distress Auscultation: + diminished lung sounds and + crackles (Minimal crackles at the bases) Cardiovascular: Rate/Rhythm: regular rate and regular rhythm; not tachycardic Heart Sounds: normal S1 and normal S2; no murmur Extremities: no edema Gastrointestinal (Abdomen): Inspection/Auscultation: abdomen normal to inspection Percussion/Palpation: abdomen soft; abdomen nontender Musculoskeletal: Extremities: extremities normal to inspection Neurologic: normal touch/pain/proprioception and CN's II-XI intact bilaterally Psychiatric: A+Ox3, euthymic affect Lymphatic: no cervical or axillary lymphadenopathy Results & Data Results & Data ([facility]) Vital Signs (Past 12 Hours) Vital Signs Temp Pulse Resp BP Pulse Ox 04/03/22 11:21 36.7 C 78 18 74/53 L 97 04/03/22 07:12 36.6 C 72 18 96/63 L 98 04/03/22 03:26 37 C 77 18 96/55 L 98 Laboratory Results Short CBC 04/03/22 Range/Units 07:26 WBC 4.97 (4.8-10.8) K/uL Hgb 12.1 (12.0-16.0) g/dL Hct 36.4 L (37-47) % Plt Count 218 (130-400) K/uL BMP 04/03/22 07:26 Sodium 136 Potassium 3.5 Chloride 104 Carbon Dioxide 26 BUN 9 Creatinine 0.84 Glucose 90 Calcium 8.9 Medications Administered Current Inpatient Medications Acetaminophen (Acetaminophen 325 Mg Tab) 650 mg PO Q6H PRN PRN Reason: Fever/pain Stop: 04/16/22 19:22 Last Admin: 03/21/22 23:55 Dose: 650 mg Documented by: Aspirin (Aspirin 81 Mg Chew) 81 mg NG QAM JUDITH Stop: 04/12/22 08:59 Last Admin: 04/03/22 07:49 Dose: 81 mg Documented by: Colchicine (Colchicine 0.6 Mg Tab) 0.6 mg PO BID JUDITH Stop: 04/18/22 11:14 Last Admin: 04/03/22 07:48 Dose: 0.6 mg Documented by: Dextrose (Dextrose 50% 50 Ml Syringe) 25 - 50 ml IV UD PRN; Protocol PRN Reason: Hypoglycemia Protocol Stop: 04/13/22 06:38 Docusate Sodium (Docusate Sodium Syrup 100 Mg/10 Ml Udc) 100 mg PO BID JUDITH Stop: 04/12/22 10:44 Last Admin: 04/03/22 07:51 Dose: Not Given Documented by: Fluticasone/Vilanterol (Fluticasone/Vilanterol 100/25mcg 14 Puffs/Inhaler) 1 puffs INH DAILY JUDITH Stop: 04/11/22 10:59 Last Admin: 04/03/22 07:52 Dose: 1 puffs Documented by: Folic Acid (Folic Acid 1 Mg Tab) 1 mg PO QAM JUDITH Stop: 04/09/22 10:31 Last Admin: 04/03/22 07:49 Dose: 1 mg Documented by: Gabapentin (Gabapentin 100 Mg Cap) 100 mg PO TID JUDITH Stop: 04/13/22 08:59 Last Admin: 04/03/22 07:50 Dose: 100 mg Documented by: Glucagon (Glucagon For Inj 1 Mg Vial) 1 mg SQ UD PRN; Protocol PRN Reason: Hypoglycemia Protocol Stop: 04/13/22 06:38 Glucose (Glucose 10 Tabs/Tube) 4 - 8 tabs PO UD PRN; Protocol PRN Reason: Hypoglycemia Protocol Stop: 04/13/22 06:38 Glucose (Glucose 40% Gel 15 Gm Tube) 15 - 30 gm PO UD PRN; Protocol PRN Reason: Hypoglycemia Protocol Stop: 04/13/22 06:38 Heparin Sodium (Porcine) (Heparin Sod 5,000 Unit/0.5 Ml Vial) 5,000 units SC Q12 JUDITH Stop: 04/12/22 20:59 Last Admin: 04/03/22 07:50 Dose: 5,000 units Documented by: Sodium Chloride (Nss) 500 mls @ 999 mls/hr IV .Q31M STA Stop: 04/03/22 12:03 Insulin Aspart (Insulin Aspart Per Unit) 0 units SC ACHS JUDITH; Protocol Stop: 04/26/22 07:29 Last Admin: 04/03/22 07:48 Dose: Not Given Documented by: [employer]prat[employer]ium [employer] (Ipratropium [employer] Neb Soln 0.02% 2.5 Ml Vial) 0.5 mg INH Q2R PRN PRN Reason: Shortness Of Breath Or Wheezing Stop: 04/09/22 10:31 Last Admin: 03/27/22 07:11 Dose: 0.5 mg Documented by: Lansoprazole (Lansoprazole 30 Mg Soltab) 30 mg NG QAM JUDITH Stop: 04/12/22 10:44 Last Admin: 04/03/22 07:50 Dose: 30 mg Documented by: Levalbuterol HCl (Levalbuterol Hcl 1.25 Mg/3 Ml Neb) 1.25 mg NEB Q2R PRN; Protocol PRN Reason: Shortness Of Breath Or Wheezing Stop: 04/09/22 10:31 Last Admin: 03/27/22 07:11 Dose: 1.25 mg Documented by: Levothyroxine Sodium (Levothyroxine Sodium 75 Mcg Tablet) 75 mcg PO DAILYBB [facility] Stop: 04/10/22 06:29 Last Admin: 04/03/22 05:42 Dose: 75 mcg Documented by: Lorazepam (Lorazepam 0.5 Mg Tab) 0.5 mg PO TID PRN PRN Reason: Anxiety Stop: 04/17/22 06:29 Last Admin: 04/03/22 08:04 Dose: 0.5 mg Documented by: Losartan Potassium (Losartan Potassium 25 Mg Tab) [facility] Stop: 04/30/22 08:59 Last Admin: 04/01/22 08:37 Dose: 12.5 mg Documented by: Metoprolol Succinate (Metoprolol Succ 25mg Ext Rel Tab) [address] [facility] Stop: 04/17/22 14:14 Last Admin: 04/03/22 07:49 Dose: Not Given Documented by: Miscellaneous (Carbohydrates For Hypoglycemia ) 15 - 30 gm PO UD PRN PRN Reason: Hypoglycemia Protocol Stop: 04/13/22 06:38 Last Admin: 03/26/22 20:56 Dose: 15 gm Documented by: Ondansetron HCl (Ondansetron Inj 2 Mg/Ml 2 Ml Vial) 4 mg IV Q6H PRN PRN Reason: Nausea And Vomiting Stop: 04/09/22 20:41 Last Admin: 04/02/22 21:16 Dose: 4 mg Documented by: Oxycodone HCl (Oxycodone Hcl Ir 5 Mg Tab (Immediate Release)) 5 mg PO Q4H PRN PRN Reason: Pain Stop: 04/15/22 06:04 Last Admin: 04/03/22 08:04 Dose: 5 mg Documented by: Pregabalin (Pregabalin 75 Mg Cap) 75 mg PO TID [facility] Stop: 04/10/22 13:59 Last Admin: 03/11/22 14:14 Dose: Not Given Documented by: Sennosides (Sennosides 8.8 Mg/5 Ml Udc) 8.8 mg PO BID [facility] Stop: 04/12/22 10:44 Last Admin: 04/03/22 07:51 Dose: Not Given Documented by: Tizanidine HCl (Tizanidine Hcl 4 Mg Tablet) 2 mg PO TID PRN PRN Reason: Muscle Spasm Stop: 04/09/22 10:31 Last Admin: 03/10/22 12:02 Dose: 2 mg Documented by: Tizanidine HCl (Tizanidine Hcl 4 Mg Tablet) 2 mg PO BID [facility] Stop: 04/18/22 20:59 Last Admin: 04/03/22 07:52 Dose: 2 mg Documented by: [employer]clidinium [employer] (Umeclidinium [employer] 62.5mcg/Blister 7 Puffs/Inhaler) 1 puffs INH [facility]; Protocol Stop: 04/09/22 10:59 Last Admin: 04/03/22 07:52 Dose: 1 puffs Documented by: Vitamin D (Cholecalciferol 1,000 Units 25 Mcg Tab) 2,000 units PO QAM [facility] Stop: 04/09/22 10:31 Last Admin: 04/03/22 07:48 Dose: 2,000 units Documented by:
[2022-04-04] MEDS: oxyCODONE HCL IR 5 MG TAB (IMMEDIATE RELEASE) PO PRN (04:28)
[2022-04-04] MEDS: LEVOTHYROXINE SODIUM 75 MCG TABLET PO SCH (06:32)
[2022-04-04] MEDS: FLUTICASONE/VILANTEROL 100/25MCG 14 PUFFS/INHALER INH SCH (09:06)
[2022-04-04] MEDS: DOCUSATE SODIUM SYRUP 100 MG/10 ML UDC PO SCH (09:06)
[2022-04-04] MEDS: ASPIRIN 81 MG CHEW NG SCH (09:06)
[2022-04-04] MEDS: SENNOSIDES 8.8 MG/5 ML UDC PO SCH (09:07)
[2022-04-04] MEDS: tiZANidine HCL 4 MG TABLET PO SCH (09:07)
[2022-04-04] MEDS: METOPROLOL SUCC 25MG EXT REL TAB PO SCH (09:07)
--- NOTE | 2022-04-04 09:28 | Hospitalist Progress Note ---
Date of Service April 04, 2022 Assessment & Plan (1) Acute exacerbation of chronic obstructive pulmonary disease: Plan: AskedAcute hypoxic and hypercarbic respiratory failure COPD exacerbation Complicated by Influenza A CXR showedIll-defined nodule versus airspace disease of the left upper lobe. Repeat CXR showed Interval improvement in left lung airspace opacities. - Patient has tenuous respiratory status and unable to wean off BIPAP. Had i ncreasing work of breathing with ABG showing severe hypercapnia and acidosis and transferred to ICU for closer monitoring and possible need for intubation. -S/P mechanical vent support, then extuabetd on 03/15 -Propofol and Precedex drips discontinued - Continue IV doxycycline. IV cefepime changed to Zosyn - Currently on PO prednisone, Continue taper prednisone - CXR shows mildly increased interstitial markings - Repeat cxrshowed no change in subtle reticulonodular interstitial thickening within the left lung. This could reflect an infectious process. - IV Zosyn discontinued then transition to Augmentin - Continue Augmentin for now - Completed Doxycycline course - Speech on board for issue with dysphagia- diet advanced to low fiber - Continue PT/OT eval - Consider inpatient rehab -Clinically stable and denies any significant symptoms -Remains stable and will decrease prednisone to 10 mg daily -No acute symptoms. Medically stable to be discharged -Has had PT evaluation and recommended rehab-awaiting placement -Continue physical therapy continue physical therapy -We will discontinue oral prednisone -She remains medically stable with some generalized weakness -[facility] and will be discharged around 12 today Low blood pressure Blood pressure medicine is on hold Will decrease the medications on discharge We will decrease the blood pressure medication Blood pressure remains stable Blood pressure remains in the lower side of normal at 90/59 without any symptom Blood pressure seems to be in the lower side at 102/67-remains in the lower side at 92/60 without any symptom We will decrease losartan to 12.5 mg daily Losartan has been discontinued due to low blood pressure We will continue with beta-lynne and she was advised to increase more fluid Blood pressure remains on the lower side of normal at 92/58 She is strongly advised to take precaution to avoid falls (2) Influenza A: Plan: As above Finished the course of Tamiflu (3) Acute respiratory failure with hypoxia: Plan: As above Appreciate pulmonary input and recommendation Has been requiring 2 L via nasal cannula continuously (4) Left ventricular systolic dysfunction: Plan: Systolic heart failure BNP on admission 682 ECHO showed dilated left ventricle with severe global hypokinesis and estimated left ventricular ejection fraction of around 20 to 25%.Thickening of the pericardium and a small pericardial effusion consistent with chronic pericarditis. Repeat ECHO showed Moderate diffuse Left ventricular Hypokinesis with EF 35-39% Cardiology on board-appreciate input and recommendation Continue Entresto starting yesterday 03/19/22 by cardiology Cardiac medications have been readjusted by the house player with metoprolol succinate 25 mg/day, low-dose ARB, losartan 25 mg and continue colchicine for now Kidney function has remained stable Noted to have low blood pressure and responded well to small volume of normal saline infusion Was advised to drink more fluid (5) Pericardial effusion: Plan: Pericardial effusion ECHO showed moderate sized, loculated anterior and right lateral pericardial effusion Continue Colchicine and prednisone 20mg daily as per recommendation Continue monitor Prednisone dose has been decreased to 10 mg daily Will discontinue prednisone after about 2 to 3 days Prednisone has been discontinued Will continue colchicine as advised (6) CAD (coronary artery disease): Plan: Status post cardiac stent No acute cardiac symptoms right now Continue current medications Anxiety Received intravenous Precedex and Dilaudid discontinued while in ICU Will continue with gabapentin/lorazepam Has been very anxious as she is not being accepted yet Hypothyroidism Continue supplement DVT prophylaxis Subcu heparin She has been accepted and is approved to go to [facility] Admission and Anticipated Discharge Date Admission Date: March 10, 2022 Subjective 03/21/2022 The patient was seen and examined in telemetry unit She has been feeling much better and denies any significant symptoms She has noted to have low blood pressure at systolics 87 this morning and received a small volume of intravenous fluid Denies any shortness of breath, palpitation, chest pain, abdominal pain nausea and vomiting 03/22/2022 The patient was seen and examined in telemetry unit She has been stable without any acute symptoms 03/23/2022 The patient was seen and examined in telemetry unit She denies any symptoms today and has been waiting to be placed No cough, wheezing and no shortness of breath 03/24/2022 The patient was seen and examined in telemetry unit She has been stable and waiting to be transferred to rehab Denies any significant symptoms 03/25/2022 The patient was seen and examined in telemetry unit She has been stable and is very anxious to get out of the hospital She has not been accepted yet Has been running low blood pressure and required a small bolus today 03/26/2022 The patient was seen and examined in telemetry unit He has been very upset this morning when she was told that she is doing pretty good and does not require any rehab Things are settling down right now Denies any significant symptoms but is noted to have low blood pressure without any symptoms We will get PT reevaluation 03/27/2022 Patient was seen and examined in telemetry unit She has been getting physical therapy and recommendation was to discharge to rehab Denies any symptoms except weakness Blood pressure seems to be stable 03/28/2022 The patient was seen and examined in telemetry unit in presence of the She has been stable and denies any significant symptoms She has been waiting to be placed 03/29/2022 The patient was seen and examined in medical telemetry unit She has been stable and remains weak and lethargic Denies any other symptoms except ongoing pain involving the extremities 03/30/2022 The patient was seen and examined in medical telemetry unit She remains stable and complains to have some weakness at rest Her pain seems to be controlled She has been waiting to be placed 04/03/2022 The patient was seen and examined in medical telemetry unit She was noted to have a very low blood pressure this morning at systolic 70 Did not have any symptoms associated with it She received 500 mL of normal saline bolus Denies any symptoms 04/04/2022 The patient was seen and examined in medical telemetry unit She remains stable and denies any symptoms in bed Her blood pressure remains on the lower side of normal at 92/58 Denies any dizziness with ambulation Review of Systems Review of Systems: All systems reviewed and are unremarkable except as noted below Musculoskeletal: Remains generally weak and lethargic Physical Exam Physical Exam: Lying in bed comfortably Constitutional: well developed and well nourished; not ill appearing and not obese Eyes: PERRL, conjunctivae normal, anicteric sclerae ENMT: external ear and nose normal, oropharynx normal Neck: trachea midline, no thyromegaly Respiratory: no respiratory distress Auscultation: + diminished lung sounds and + crackles (Minimal crackles at the bases) Cardiovascular: Rate/Rhythm: regular rate and regular rhythm; not tachycardic Heart Sounds: normal S1 and normal S2; no murmur Extremities: no edema Gastrointestinal (Abdomen): Inspection/Auscultation: abdomen normal to inspection Percussion/Palpation: abdomen soft; abdomen nontender Musculoskeletal: Extremities: extremities normal to inspection Neurologic: normal touch/pain/proprioception and CN's II-XI intact bilaterally (Generally weak without any focal neurodeficit) Psychiatric: A+Ox3, euthymic affect Lymphatic: no cervical or axillary lymphadenopathy Results & Data Results & Data ([facility]) Vital Signs (Past 12 Hours) Vital Signs Temp Pulse Pulse Resp BP BP BP 04/04/22 08:00 36.7 C 86 16 92/58 L 04/04/22 07:09 79 04/04/22 03:51 36.6 C 70 16 94/52 L 04/04/22 01:29 68 04/03/22 23:11 36.7 C 75 16 87/48 L Pulse Ox 04/04/22 08:00 97 04/04/22 07:09 04/04/22 03:51 97 04/04/22 01:29 04/03/22 23:11 99 Medications Administered Current Inpatient Medications Acetaminophen (Acetaminophen 325 Mg Tab) 650 mg PO Q6H PRN PRN Reason: Fever/pain Stop: 04/16/22 19:22 Last Admin: 03/21/22 23:55 Dose: 650 mg Documented by: Aspirin (Aspirin 81 Mg Chew) 81 mg NG QAM [facility] Stop: 04/12/22 08:59 Last Admin: 04/04/22 09:06 Dose: 81 mg Documented by: Colchicine (Colchicine 0.6 Mg Tab) 0.6 mg PO BID [facility] Stop: 04/18/22 11:14 Last Admin: 04/03/22 20:19 Dose: 0.6 mg Documented by: Dextrose (Dextrose 50% 50 Ml Syringe) 25 - 50 ml IV UD PRN; Protocol PRN Reason: Hypoglycemia Protocol Stop: 04/13/22 06:38 Docusate Sodium (Docusate Sodium Syrup 100 Mg/10 Ml Udc) 100 mg PO BID [facility] Stop: 04/12/22 10:44 Last Admin: 04/04/22 09:06 Dose: Not Given Documented by: Fluticasone/Vilanterol (Fluticasone/Vilanterol 100/25mcg 14 Puffs/Inhaler) 1 puffs INH DAILY [facility] Stop: 04/11/22 10:59 Last Admin: 04/04/22 09:06 Dose: 1 puffs Documented by: Folic Acid (Folic Acid 1 Mg Tab) 1 mg PO QAM [facility] Stop: 04/09/22 10:31 Last Admin: 04/03/22 07:49 Dose: 1 mg Documented by: Gabapentin (Gabapentin 100 Mg Cap) 100 mg PO TID [facility] Stop: 04/13/22 08:59 Last Admin: 04/03/22 20:22 Dose: 100 mg Documented by: Glucagon (Glucagon For Inj 1 Mg Vial) 1 mg SQ UD PRN; Protocol PRN Reason: Hypoglycemia Protocol Stop: 04/13/22 06:38 Glucose (Glucose 10 Tabs/Tube) 4 - 8 tabs PO UD PRN; Protocol PRN Reason: Hypoglycemia Protocol Stop: 04/13/22 06:38 Glucose (Glucose 40% Gel 15 Gm Tube) 15 - 30 gm PO UD PRN; Protocol PRN Reason: Hypoglycemia Protocol Stop: 04/13/22 06:38 Heparin Sodium (Porcine) (Heparin Sod 5,000 Unit/0.5 Ml Vial) 5,000 units SC Q12 JUDITH Stop: 04/12/22 20:59 Last Admin: 04/03/22 20:21 Dose: 5,000 units Documented by: Ipratropium [place] (Ipratropium [place] Neb Soln 0.02% 2.5 Ml Vial) 0.5 mg INH Q2R PRN PRN Reason: Shortness Of Breath Or Wheezing Stop: 04/09/22 10:31 Last Admin: 03/27/22 07:11 Dose: 0.5 mg Documented by: Lansoprazole (Lansoprazole 30 Mg Soltab) 30 mg NG QAM [facility] Stop: 04/12/22 10:44 Last Admin: 04/03/22 07:50 Dose: 30 mg Documented by: Levalbuterol HCl (Levalbuterol Hcl 1.25 Mg/3 Ml Neb) 1.25 mg NEB Q2R PRN; Protocol PRN Reason: Shortness Of Breath Or Wheezing Stop: 04/09/22 10:31 Last Admin: 03/27/22 07:11 Dose: 1.25 mg Documented by: Levothyroxine Sodium (Levothyroxine Sodium 75 Mcg Tablet) 75 mcg PO DAILYBB [facility] Stop: 04/10/22 06:29 Last Admin: 04/04/22 06:32 Dose: 75 mcg Documented by: Lorazepam (Lorazepam 0.5 Mg Tab) 0.5 mg PO TID PRN PRN Reason: Anxiety Stop: 04/17/22 06:29 Last Admin: 04/03/22 15:25 Dose: 0.5 mg Documented by: Losartan Potassium (Losartan Potassium 25 Mg Tab) 12.5 mg PO QAM [facility] Stop: 04/30/22 08:59 Last Admin: 04/01/22 08:37 Dose: 12.5 mg Documented by: Metoprolol Succinate (Metoprolol Succ 25mg Ext Rel Tab) 25 mg PO QAM [facility] Stop: 04/17/22 14:14 Last Admin: 04/04/22 09:07 Dose: 25 mg Documented by: Miscellaneous (Carbohydrates For Hypoglycemia ) 15 - 30 gm PO UD PRN PRN Reason: Hypoglycemia Protocol Stop: 04/13/22 06:38 Last Admin: 03/26/22 20:56 Dose: 15 gm Documented by: Ondansetron HCl (Ondansetron Inj 2 Mg/Ml 2 Ml Vial) 4 mg IV Q6H PRN PRN Reason: Nausea And Vomiting Stop: 04/09/22 20:41 Last Admin: 04/02/22 21:16 Dose: 4 mg Documented by: Oxycodone HCl (Oxycodone Hcl Ir 5 Mg Tab (Immediate Release)) 5 mg PO Q4H PRN PRN Reason: Pain Stop: 04/15/22 06:04 Last Admin: 04/04/22 04:28 Dose: 5 mg Documented by: Pregabalin (Pregabalin 75 Mg Cap) 75 mg PO TID [facility] Stop: 04/10/22 13:59 Last Admin: 03/11/22 14:14 Dose: Not Given Documented by: Sennosides (Sennosides 8.8 Mg/5 Ml Udc) 8.8 mg PO BID [facility] Stop: 04/12/22 10:44 Last Admin: 04/04/22 09:07 Dose: Not Given Documented by: Tizanidine HCl (Tizanidine Hcl 4 Mg Tablet) 2 mg PO TID PRN PRN Reason: Muscle Spasm Stop: 04/09/22 10:31 Last Admin: 03/10/22 12:02 Dose: 2 mg Documented by: Tizanidine HCl (Tizanidine Hcl 4 Mg Tablet) 2 mg PO BID [facility] Stop: 04/18/22 20:59 Last Admin: 04/04/22 09:07 Dose: 2 mg Documented by: Umeclidinium [place] (Umeclidinium [place] 62.5mcg/Blister 7 Puffs/Inhaler) [facility] [place] Stop: 04/09/22 10:59 Last Admin: 04/03/22 07:52 Dose: 1 puffs Documented by: Vitamin D (Cholecalciferol 1,000 Units 25 Mcg Tab) 2,000 [place] [facility] [place]: 04/09/22 10:31 Last Admin: 04/03/22 07:48 Dose: 2,000 units Documented by:
[2022-04-04] MEDS: FOLIC ACID 1 MG TAB PO SCH (10:06)
[2022-04-04] MEDS: GABAPENTIN 100 MG CAP PO SCH (10:06)
[2022-04-04] MEDS: HEPARIN SOD 5,000 UNIT/0.5 ML VIAL SC SCH (10:07)
[2022-04-04] MEDS: COLCHICINE 0.6 MG TAB PO SCH (10:07)
[2022-04-04] MEDS: CHOLECALCIFEROL 1,000 UNITS 25 MCG TAB PO SCH (10:07)
[2022-04-04] MEDS: LANSOPRAZOLE 30 MG SOLTAB NG SCH (10:07)
--- NOTE | 2022-04-04 17:25 | Discharge Summary ---
Date of Service April 04, 2022 Admission HPI Per Admitting Provider DICTATED BY:Micky Owens MD DATE OF ADMISSION: 03/10/2022. CHIEF COMPLAINT: Shortness of breath. HISTORY OF PRESENT ILLNESS: This 56-year-old female with past medical history significant for hypothyroidism, hyperlipidemia, COPD on home oxygen 2lts, history of chronic diastolic congestive heart failure, history of cerebellar hemangioma, history of pericardial effusion, history of irritable bowel syndrome with constipation, history of gastroparesis, vitamin D deficiency, chronic kidney disease stage III, degenerative disk disease, generalized osteoarthritis, chronic pain, ongoing tobacco abuse, smokes five cigarettes every day, CAD status post stent placement, mixed incontinence, generalized anxiety disorder, depression, statin intolerance, lives at home, comes with shortness of breath. Shortness of breath has been going since last Thursday, got progressively worse and also having cough and fever since last Thursday. Today, temperature was 103. Because of ongoing symptoms, she called EMS and EMS placed her on CPAP brought to the hospital.In ER placed On BiPAP she is saturating okay. Her labs were okay except for potassium of 3.3. She is vaccinated for COVID and her COVID is negative but influenza A PCR came back positive. Somewhat tachypneic. The patient does not want the steroids, because she says the steroids is going to damage her kidneys. Denies any chest pain, has some headache, no blurred visions. Has some runny nose. No sore throat. No nausea, no abdominal pain. Normal bowel and bladder movements. Admission Exam Per Admitting Provider GENERAL: The patient is alert and awake, no respiratory distress. VITAL SIGNS: Temperature 37.5, pulse 80, respiratory rate 19, blood pressure 117/75, oxygen 97% on BiPAP. HEENT: Pupils equal, round and reactive to light. NECK: No JVD, no neck masses. CARDIOVASCULAR: S1 and S2 heard. Regular rate and rhythm. No murmur, no gallop. RESPIRATORY SYSTEM: Normal AP diameter. Some tachypnea present. Diminished breath sounds. No wheezing, no crackles. ABDOMEN: Soft, bowel sounds present, nontender, no distention. CENTRAL NERVOUS SYSTEM: Cranial nerves II-XII grossly intact, nonfocal. EXTREMITIES: No edema, no erythema. Principal Diagnosis Acute exacerbation of COPD, acute respiratory failure with hypoxia, left ventricular systolic dysfunction, pericardial effusion, CAD, hypertension Discharge Exam Lying in bed comfortably Constitutional well developed and well nourished; not ill appearing and not obese Eyes PERRL, conjunctivae normal, anicteric sclerae ENMT external ear and nose normal, oropharynx normal Neck trachea midline, no thyromegaly Respiratory no respiratory distress Auscultation: + diminished lung sounds and + crackles (Minimal crackles at the bases) Cardiovascular Rate/Rhythm: regular rate and regular rhythm; not tachycardic Heart Sounds: normal S1 and normal S2; no murmur Extremities: no edema Gastrointestinal (Abdomen) Inspection/Auscultation: abdomen normal to inspection Percussion/Palpation: abdomen soft; abdomen nontender Musculoskeletal Extremities: extremities normal to inspection Neurologic normal touch/pain/proprioception and CN's II-XI intact bilaterally (Generally weak without any focal neurodeficit) Psychiatric A+Ox3, euthymic affect Lymphatic no cervical or axillary lymphadenopathy Discharge Data Allergies Allergy/AdvReac Type Severity Reaction Status Date / Time ibuprofen Allergy Intermediate Unknown Verified 03/10/22 08:38 NSAIDS (Non-Steroidal Allergy Intermediate Unknown Verified 03/10/22 08:38 Anti-Inflamma Sulfa (Sulfonamide Allergy Intermediate HIVES Verified 03/10/22 08:38 Antibiotics) adhesive Allergy Mild BANDAIDS Verified 03/10/22 08:38 SKIN ABRASION ketorolac [From Toradol] Allergy Mild Unknown Verified 03/10/22 08:38 adhesive tape Allergy Unknown Unknown Verified 03/10/22 08:38 tramadol Allergy Unknown . Verified 03/10/22 08:19 rosuvastatin [From Crestor] AdvReac Intermediate Weakness Verified 03/10/22 08:19 prednisone AdvReac Mild Patient Unverified 03/10/22 08:38 Reports Contraindication in Kidney Failure meperidine AdvReac Unknown MOOD SWINGS Verified 03/10/22 08:19 Consultations 03/10/22 05:54 ED Decision to Admit Stat 03/12/22 07:56 Consult Cardiology Routine Hospital Course (1) Acute exacerbation of chronic obstructive pulmonary disease: AskedAcute hypoxic and hypercarbic respiratory failure COPD exacerbation Complicated by Influenza A CXR showedIll-defined nodule versus airspace disease of the left upper lobe. Repeat CXR showed Interval improvement in left lung airspace opacities. - Patient has tenuous respiratory status and unable to wean off BIPAP. Had increasing work of breathing with ABG showing severe hypercapnia and acidosis and transferred to ICU for closer monitoring and possible need for intubation. -S/P mechanical vent support, then extuabetd on 03/15 -Propofol and Precedex drips discontinued - Continue IV doxycycline. IV cefepime changed to Zosyn - Currently on PO prednisone, Continue taper prednisone - CXR shows mildly increased interstitial markings - Repeat cxrshowed no change in subtle reticulonodular interstitial thickening within the left lung. This could reflect an infectious process. - IV Zosyn discontinued then transition to Augmentin - Continue Augmentin for now - Completed Doxycycline course - Speech on board for issue with dysphagia- diet advanced to low fiber - Continue PT/OT eval - Consider inpatient rehab -Clinically stable and denies any significant symptoms -Remains stable and will decrease prednisone to 10 mg daily -No acute symptoms. Medically stable to be discharged -Has had PT evaluation and recommended rehab-awaiting placement -Continue physical therapy continue physical therapy -We will discontinue oral prednisone -She remains medically stable with some generalized weakness -[facility] and will be discharged around 12 today Low blood pressure Blood pressure medicine is on hold Will decrease the medications on discharge We will decrease the blood pressure medication Blood pressure remains stable Blood pressure remains in the lower side of normal at 90/59 without any symptom Blood pressure seems to be in the lower side at 102/67-remains in the lower side at 92/60 without any symptom We will decrease losartan to 12.5 mg daily Losartan has been discontinued due to low blood pressure We will continue with beta-lynne and she was advised to increase more fluid Blood pressure remains on the lower side of normal at 92/58 She is strongly advised to take precaution to avoid falls (2) Influenza A: As above Finished the course of Tamiflu (3) Acute respiratory failure with hypoxia: As above Appreciate pulmonary input and recommendation Has been requiring 2 L via nasal cannula continuously (4) Left ventricular systolic dysfunction: Systolic heart failure BNP on admission 682 ECHO showed dilated left ventricle with severe global hypokinesis and estimated left ventricular ejection fraction of around 20 to 25%.Thickening of the pericardium and a small pericardial effusion consistent with chronic pericarditis. Repeat ECHO showed Moderate diffuse Left ventricular Hypokinesis with EF 35-39% Cardiology on board-appreciate input and recommendation Continue Entresto starting yesterday 03/19/22 by cardiology Cardiac medications have been readjusted by the finish repair worker with metoprolol succinate 25 mg/day, low-dose ARB, losartan 25 mg and continue colchicine for now Kidney function has remained stable Noted to have low blood pressure and responded well to small volume of normal saline infusion Was advised to drink more fluid (5) Pericardial effusion: Pericardial effusion ECHO showed moderate sized, loculated anterior and right lateral pericardial effusion Continue Colchicine and prednisone 20mg daily as per recommendation Continue monitor Prednisone dose has been decreased to 10 mg daily Will discontinue prednisone after about 2 to 3 days Prednisone has been discontinued Will continue colchicine as advised (6) CAD (coronary artery disease): Status post cardiac stent No acute cardiac symptoms right now Continue current medications Anxiety Received intravenous Precedex and Dilaudid discontinued while in ICU Will continue with gabapentin/lorazepam Has been very anxious as she is not being accepted yet Hypothyroidism Continue supplement DVT prophylaxis Subcu heparin She has been accepted and is approved to go [facility] Total Time Total Time Spent Total Time Spent (In Minutes): 45 minutes Discharge Plan Discharge Items Patient Disposition: Transfer [facility] Reason For Visit: Fever, SOB Discharge Diagnosis: Acute exacerbation of COPD, acute respiratory failure with hypoxia, left ventricular systolic dysfunction, pericardial effusion, CAD, hypertension Condition on Discharge: Fair Activity: Resume your previous activity Non-emergency contact: Primary Care Provider Call non-emergency contact if: you have any medication questions and your symp toms worsen Follow-up/Referrals: Mónica Chamberlain MD [Outside Practitioners] - (Date & Time 04/01/2022 11:20 AM Provider Mónica Chamberlain MD Department General Internal Medicine [facility] ) Diet: Heart Healthy Addtl Attending Provider Instructions: Please take precautions to avoid fall. Please take some time to initiate any activity to avoid dizziness Try to drink more fluid as advised Take your medications as advised Losartan was discontinued due to persistently low blood pressure Please keep appointments with your healthcare providers Pending Studies at Discharge: No Stand-Alone Forms: My [employer] Skilled Items Patient informed of condition?: Yes DNR: No Discharge Level of Care: Skilled Communicable Disease: No Discharge Prognosis: Stable Lines: None Urinary Catheter: Yes Medications and DC Order Prescriptions: New gabapentin 100 mg Capsule 100 mg PO TID 30 Days Qty: 90 RF: 0 colchicine [Colcrys] 0.6 mg Tablet 0.6 mg PO BID 30 Days Qty: 60 RF: 0 oxycodone 5 mg Tablet 5 mg PO Q4H PRN (Reason: pain) 5 Days Qty: 15 RF: 0 Continued ipratropium-albuterol 0.5 mg-3 mg(2.5 mg base)/3 mL solution for nebulization 3 ml INHALATION QID PRN (Reason: Cough, Shortness of Breath or Wheezing) RF: 0 tizanidine 4 mg tablet 2 mg PO Q8H PRN (Reason: Muscle Spasm) RF: 0 aspirin 81 mg Tablet,Delayed Release (Dr/Ec) 81 mg PO DAILY RF: 0 levothyroxine [Synthroid] 75 mcg tablet 75 mcg PO DAILY RF: 0 lorazepam 0.5 mg tablet 0.5 mg PO DAILY PRN (Reason: Anxiety) RF: 0 ascorbic acid (vitamin C) [Vitamin C] 500 mg Tablet 500 mg PO DAILY RF: 0 trazodone 100 mg tablet 100 mg PO HS RF: 0 cyanocobalamin (vitamin B-12) 1,000 mcg/mL Solution 100 mcg IM MO RF: 0 omeprazole 20 mg capsule,delayed release(DR/EC) 20 mg PO BID RF: 0 folic acid 1 mg Tablet 1 mg PO DAILY RF: 0 metoprolol succinate 25 mg tablet extended release 24 hr 25 mg PO QAM RF: 0 albuterol sulfate 90 mcg/actuation HFA aerosol inhaler 2 puff INHALATION Q4H PRN (Reason: Shortness Of Breath) RF: 0 Flovent HFA 110 mcg/actuation Hfa Aerosol Inhaler 2 puff INHALATION BID RF: 0 pregabalin 75 mg capsule 75 mg PO TID RF: 0 calcium carbonate-vitamin D3 [Calcium 600 + D(3)] 600 mg-10 mcg (400 unit) Tablet 1 tab PO DAILY RF: 0 cholecalciferol (vitamin D3) [Vitamin D3] 50 mcg (2,000 unit) Tablet 50 mcg PO DAILY RF: 0 Stiolto Respimat 2.5-2.5 mcg/actuation mist 2 puff INHALATION DAILY RF: 0 Repatha Pushtronex 420 mg/3.5 mL wearable injector 420 mg SUBCUT MO RF: 0 Discontinued metoprolol succinate 25 mg tablet extended release 24 hr 12.5 mg PO HS RF: 0 Discharge Orders: Discharge Order (Routine); Ordered 04/04/22 Ordered By: Prince Escalante/Other Patient Handouts: Anxiety Disorders Tx, Understanding Anxiety Disorders Admission Data Admit Date/Time: 03/10/22 06:38 Attending Provider: Prince Ugalde Admit Provider: Micky Owens Primary Care Provider: Jayme Chamberlain Other Providers: Lopez Shane ; [place] ; [facility] ; Micky Owens ; [facility] [place] ; Prince Ugalde Other Interventions: Discharge Summary Assessment (RN) Last Done: 04/04/22 10:49
== END 2022-04-04 12:18 | DRG 208 ==
LOC: MERGE 03:46 → ED 03:46 → 1E 06:38 → SUATTDRO 06:38 → 1E 09:37 → 2E 03-11 11:29 → 1E 03-11 13:09 → 2E 03-16 15:09 → 2W 03-28 18:42

== ENCOUNTER 2022-04-13 03:30 | Inpatient (IN) ==
[2022-04-13] MEDS ORDERED: SODIUM CHLORIDE 0.9% 1000ML 1,000 ML IV SCH (03:45)
--- NOTE | 2022-04-13 03:52 | Emergency Department Note ---
History of Present Illness General Chief complaint: Vomiting Stated complaint: Vomiting, Nausea Time Seen by Provider: 04/13/22 03:31 History of Present Illness This is a 56-year-old female presenting to the emergency department via EMS from home for evaluation of right-sided abdominal pain, nausea, and vomiting. The patient has a fairly complicated recent medical history. She was admitted to this facility for an extended period of time following an episode of respiratory failure that did require intubation and ICU care. Ultimately the patient had nearly a full 1 month stay at this facility, and many of her symptoms seem to be attributed to having influenza A as the causative agent in her disease. The patient ultimately was accepted and dispositioned to the [facility], where she states that she stayed for a few days before going home. She does live at home with her and her daughter who recently moved back into help around the house. The patient did have a post discharge appointment with her primary care physician and she states they are tinkering with some of her medications. She states that today she had multiple episodes of emesis and pain, making her feel more weak than normal. The patient feels like her breathing is better than when she was admitted to this facility a month ago, and the belly pain is new. She has had some diarrheal illness but this sounds very sporadic. No distinct fever is reported. She rates her current discomfort a 7/10. Home Medications Medication Instructions Recorded Confirmed Type albuterol sulfate 90 mcg/actuation 2 puff INHALATION Q4H PRN 03/10/22 03/10/22 History aerosol inhaler ascorbic acid (vitamin C) 500 mg 500 mg PO DAILY 03/10/22 03/10/22 History tablet (Vitamin C) aspirin 81 mg tablet,delayed 81 mg PO DAILY 03/10/22 03/10/22 History release calcium carbonate 600 mg-vitamin 1 tab PO DAILY 03/10/22 03/10/22 History D3 10 mcg (400 unit) tablet (Calcium 600 + D(3)) cholecalciferol (vitamin D3) 50 50 mcg PO DAILY 03/10/22 03/10/22 History mcg (2,000 unit) tablet (Vitamin D3) cyanocobalamin (vitamin B-12) 100 mcg IM MO 03/10/22 03/10/22 History 1,000 mcg/mL injection solution evolocumab 420 mg/3.5 mL 420 mg SUBCUT MO 03/10/22 03/10/22 History subcutaneous wearable injector (Repatha Pushtronex) fluticasone propionate 110 2 puff INHALATION BID 03/10/22 03/10/22 History mcg/actuation HFA aerosol inhaler (Flovent HFA) folic acid 1 mg tablet 1 mg PO DAILY 03/10/22 03/10/22 History ipratropium 0.5 mg-albuterol 3 mg 3 ml INHALATION QID PRN 03/10/22 03/10/22 H istory (2.5 mg base)/3 mL nebulization soln levothyroxine 75 mcg tablet 75 mcg PO DAILY 03/10/22 03/10/22 History (Synthroid) lorazepam 0.5 mg tablet 0.5 mg PO DAILY PRN 03/10/22 03/10/22 History metoprolol succinate 25 mg 25 mg PO QAM 03/10/22 03/10/22 History tablet,extended release 24 hr omeprazole 20 mg capsule,delayed 20 mg PO BID 03/10/22 03/10/22 History release pregabalin 75 mg capsule 75 mg PO TID 03/10/22 03/10/22 History tiotropium 2.5 mcg-olodaterol 2.5 2 puff INHALATION DAILY 03/10/22 03/10/22 History mcg/actuation mist for inhalation (Stiolto Respimat) tizanidine 4 mg tablet 2 mg PO Q8H PRN 03/10/22 03/10/22 History trazodone 100 mg tablet 100 mg PO HS 03/10/22 03/10/22 History colchicine 0.6 mg tablet (Colcrys) 0.6 mg PO BID 30 Days #60 tab 04/04/22 Rx gabapentin 100 mg capsule 100 mg PO TID 30 Days #90 cap 04/04/22 Rx Allergies Allergy/AdvReac Type Severity Reaction Status Date / Time ibuprofen Allergy Intermediate Unknown Verified 03/10/22 08:38 NSAIDS (Non-Steroidal Allergy Intermediate Unknown Verified 03/10/22 08:38 Anti-Inflamma Sulfa (Sulfonamide Allergy Intermediate HIVES Verified 03/10/22 08:38 Antibiotics) adhesive Allergy Mild BANDAIDS Verified 03/10/22 08:38 SKIN ABRASION ketorolac [From Toradol] Allergy Mild Unknown Verified 03/10/22 08:38 adhesive tape Allergy Unknown Unknown Verified 03/10/22 08:38 tramadol Allergy Unknown . Verified 03/10/22 08:19 rosuvastatin [From Crestor] AdvReac Intermediate Weakness Verified 03/10/22 08:19 prednisone AdvReac Mild Patient Unverified 03/10/22 08:38 Reports Contraindication in Kidney Failure meperidine AdvReac Unknown MOOD SWINGS Verified 03/10/22 08:19 Past Med/Surg History Medical History Acute exacerbation of chronic obstructive pulmonary disease (COPD) SEVERE EMPHYSEMA Acute respiratory failure with hypoxia UNRULY (acute kidney injury) Anxiety CAD (coronary artery disease) Cavernous hemangioma of brain Gastroparesis Hx of bronchitis Hypokalemia CAN NOT TOLERATE PO POTASSIUM PILLS DUE TO GASTROPARESIS Myocardial infarction 2010 - CHEST PAIN -[facility] ER AND HAD HEART CATH WITH ONE STENT (BARE METAL) FOLLOW WITH [facility] Neurofibromatosis Pneumothorax AGE 24 - SURGERY TO REPAIR THE LEFT SIDE AND CHEMICAL TREATMENT ON THE RIGHT SIDE AT [facility] 2013 ONLY HAD ONE -- ADMITTED TO [facility] --- METABOLIC RELATED ---- NO MEDICATION Shortness of breath Volume overload Surgical History History of hernia repair UMBILICAL Hx of cardiac cath 2010 HEART CATH WITH ONE STENT Hx of section X2 Hx of colonoscopy Hx of vaginal surgery 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 Family History Father Lung disease Severe emphysema, pneumothorax Social History Smoking Status: Former smoker Tobacco Type: Cigarettes Age Started Using Tobacco: 11; Age Quit Using Tobacco: 53; packs per day: 1; Years Smoked: 42; Cigarettes Per Day: 5; Number of Years Since Quit: 1; Second Hand Exposure: No; Hx Alcohol Use: No Hx Substance Use: No Preferred Language: Cook Islander Communication Ability: Unable Manager Park Required: No Beliefs That Will Affect Care: None marital status: Current Living Situation: Spouse Feels Safe at Home: Yes Assistive Devices: Denture - Upper, Denture - Lower and Oxygen - Continuous Review of Systems A total of 10 systems reviewed and were otherwise negative Physical Exam Vital Signs Vital Signs - 24 hr 04/13/22 03:32 04/13/22 04:00 04/13/22 04:44 Temperature 36.7 C Temperature Source Temporal Artery Scan Pulse Rate 110 H 103 H 106 H Pulse Rate from SpO2 Sensor Pulse Rhythm Regular Pulse Strength Normal Respiratory Rate 20 16 21 Respiratory Effort / Characteristics Non-Labored Respiratory Depth Normal Blood Pressure 131/84 113/80 118/86 Blood Pressure Mean 99 91 96 Blood Pressure Position Sitting Pulse Oximetry 98 97 99 Oxygen Delivery Method Room Air Nasal Cannula Oxygen Flow Rate 2 Sepsis Recent Fever Within 48 Hours No Sepsis New/Unexplained Change in Mental Status N/A Sepsis Action Taken by Nursing No Action Required 04/13/22 05:01 04/13/22 05:30 Temperature Temperature Source Pulse Rate 104 H Pulse Rate from SpO2 Sensor 108 H Pulse Rhythm Pulse Strength Respiratory Rate 12 24 Respiratory Effort / Characteristics Respiratory Depth Blood Pressure 132/100 126/91 Blood Pressure Mean 110 102 Blood Pressure Position Pulse Oximetry 96 98 Oxygen Delivery Method Nasal Cannula Nasal Cannula Oxygen Flow Rate 2 2 Sepsis Recent Fever Within 48 Hours Sepsis New/Unexplained Change in Mental Status Sepsis Action Taken by Nursing VITALS: Vitals are noted on the nurse's note and reviewed by myself. Vital signs with tachycardia at 110 GENERAL: Chronically ill-appearing white female who is in no acute distress. She is resting comfortably in the ER bed. HEAD: Normocephalic atraumatic. MOUTH: Mucous membranes moist. Tonsils are not enlarged. Pharynx without erythema, blood, or exudate. Uvula midline. Airway patent. NECK: Supple without nuchal rigidity. No lymphadenopathy. No thyromegaly. Cervical spine is nontender. HEART: Tachycardic rate with regular rhythm LUNGS: Distant breath sounds with scattered rhonchi ABDOMEN: Positive normal bowel sounds x 4. Soft with mild right-sided tenderness. No rebound or guarding. MUSCULOSKELETAL: No muscle atrophy, erythema, or edema noted. Full range of motion in all extremities NEURO: Patient was alert and oriented to person place and time. CN II through XII grossly intact. Course Administered Medications Discontinued Medications Sodium Chloride (Nss 1000ml) 1,000 mls @ 500 mls/hr IV .Q2H JUDITH Stop: 04/13/22 05:44 Last Admin: 04/13/22 04:44 Dose: 500 mls/hr Documented by: [id number] Potassium Chloride (K Pete / Wtr) 10 meq in 100 mls @ 100 mls/hr IV ONE ONE; Protocol Stop: 04/13/22 05:26 Last Admin: 04/13/22 04:53 Dose: 100 mls/hr Documented by: [id number] Magnesium Sulfate/Dextrose (Magnesium Sulfate / D5w) 1 gm in 100 mls @ 100 mls/hr IV NOW STA Stop: 04/13/22 05:27 Last Admin: 04/13/22 04:52 Dose: 100 mls/hr Documented by: [id number] Ondansetron HCl (Ondansetron Inj 2 Mg/Ml 2 Ml Vial) 4 mg IV NOW STA Stop: 04/13/22 04:59 Last Admin: 04/13/22 05:00 Dose: 4 mg Documented by: [id number] Medical Decision Making Differential Diagnosis Differential diagnosis: Etiologies such as biliary colic, cholecystitis, hepatitis, pancreatitis, cardiac disease, pancreatitis, gastritis, peptic ulcer disease, appendicitis, cystitis, diverticulitis, mesenteric ischemia, inflammatory bowel disease, ileus, bowel obstruction, testicular/adnexal torsion, aortic pathology, shingles, as well as others were considered Laboratory Data Result diagrams: 04/13/22 03:10 04/13/22 03:10 Lab Results 04/13/22 04/13/22 04/13/22 Range/Units 03:10 03:10 03:10 WBC 4.75 L (4.8-10.8) K/uL RBC 4.22 (4.2-5.4) M/uL Hgb 13.1 (12.0-16.0) g/dL Hct 38.6 (37-47) % MCV 91.5 (80-100) fL MCH 31.0 (25-34) pg MCHC 33.9 (32-36) g/dL RDW Std Deviation 48.3 H (36.4-46.3) fL RDW Coeff of Akiko 14.5 (11.5-14.5) % Plt Count 333 (130-400) K/uL MPV 11.2 H (7.4-10.4) fL Immature Gran % (Auto) 0.2 % Neut % (Auto) 66.3 % Lymph % (Auto) 17.3 % [place] % (Auto) 15.2 % Eos % (Auto) 0.6 % Baso % (Auto) 0.4 % Neut # (Auto) 3.15 (1.4-6.5) K/uL Lymph # (Auto) 0.82 L (1.2-3.4) K/uL [place] # (Auto) 0.72 H (0.11-0.59) K/uL Eos # (Auto) 0.03 (0-0.5) K/uL Baso # (Auto) 0.02 (0-0.2) K/uL Immature Gran # (Auto) 0.01 (0.00-0.02) K/uL ESR 28 (0-30) mm/hr PT Cancelled INR Cancelled APTT Cancelled PTT Ratio Cancelled Sodium (136-145) mmol/L Potassium (3.5-5.1) mmol/L Chloride (98-107) mmol/L Carbon Dioxide (21-32) mmol/L Anion Gap (3-11) BUN (6-23) mg/dl Creatinine (0.6-1.2) mg/dl Est Cr Clr Drug Dosing ml/min Est GFR ( Amer) ml/min Est GFR (Non-Af Amer) ml/min BUN/Creatinine Ratio (10-20) Glucose (70-99(Fasting)) mg/dl Lactate (0.4-2.0) mmol/L Calcium (8.5-10.1) mg/dl Magnesium (1.7-2.4) mg/dl Total Bilirubin (0.2-1.0) mg/dl AST (13-39) U/L ALT (7-52) U/L Alkaline Phosphatase (34-104) U/L Total Creatine Kinase (26-192) U/L Troponin I High Sens (0-14) pg/ml C-Reactive Protein (0-0.5) mg/dl B-Natriuretic Peptide (0-100) pg/ml Total Protein (6.0-8.3) gm/dl Albumin (3.4-5.0) gm/dl Globulin (2.5-4.0) gm/dl Albumin/Globulin Ratio (0.9-2) Lipase (11-82) U/L Procalcitonin (0-0.5) ng/ml Adenovirus (PCR) (NotDetected) B. pertussis DNA (PCR) (NotDetected) B.parapertussis DNA PCR (NotDetected) C. pneumoniae DNA (PCR) (NotDetected) Coronavirus OC43 (PCR) (NotDetected) Coronavirus HKU1 (PCR) (NotDetected) Coronavirus 229E (PCR) (NotDetected) SARS-CoV-2 (PCR) (NotDetected) Coronavirus NL63 (PCR) (NotDetected) Human Metapneumovir PCR (NotDetected) Influenza Type A (PCR) (NotDetected) Influenza Type B (PCR) (NotDetected) M. pneumoniae (PCR) (NotDetected) Parainfluenza 1 (PCR) (NotDetected) Parainfluenza 2 (PCR) (NotDetected) Parainfluenza 3 (PCR) (NotDetected) Parainfluenza 4 (PCR) (NotDetected) RSV (PCR) (NotDetected) Entero/Rhino (PCR) (NotDetected) 04/13/22 04/13/22 04/13/22 Range/Units 03:10 03:10 03:45 WBC (4.8-10.8) K/uL RBC (4.2-5.4) M/uL Hgb (12.0-16.0) g/dL Hct (37-47) % MCV (80-100) fL MCH (25-34) pg MCHC (32-36) g/dL RDW Std Deviation (36.4-46.3) fL RDW Coeff of Akiko (11.5-14.5) % Plt Count (130-400) K/uL MPV (7.4-10.4) fL Immature Gran % (Auto) % Neut % (Auto) % Lymph % (Auto) % [place] % (Auto) % Eos % (Auto) % Baso % (Auto) % Neut # (Auto) (1.4-6.5) K/uL Lymph # (Auto) (1.2-3.4) K/uL [place] # (Auto) (0.11-0.59) K/uL Eos # (Auto) (0-0.5) K/uL Baso # (Auto) (0-0.2) K/uL Immature Gran # (Auto) (0.00-0.02) K/uL ESR (0-30) mm/hr PT INR APTT PTT Ratio Sodium 138 (136-145) mmol/L Potassium 3.0 L (3.5-5.1) mmol/L Chloride 92 L (98-107) mmol/L Carbon Dioxide 36 H (21-32) mmol/L Anion Gap 10 (3-11) BUN 18 (6-23) mg/dl Creatinine 0.90 (0.6-1.2) mg/dl Est Cr Clr Drug Dosing 53.7 ml/min Est GFR ( Amer) 82.3 ml/min Est GFR (Non-Af Amer) 71.0 ml/min BUN/Creatinine Ratio 20.0 (10-20) Glucose 123 H (70-99(Fasting)) mg/dl Lactate (0.4-2.0) mmol/L Calcium 8.7 (8.5-10.1) mg/dl Magnesium 1.4 L (1.7-2.4) mg/dl Total Bilirubin 1.0 (0.2-1.0) mg/dl AST 48 H (13-39) U/L ALT 66 H (7-52) U/L Alkaline Phosphatase 125 H (34-104) U/L Total Creatine Kinase 114 (26-192) U/L Troponin I High Sens 11.1 (0-14) pg/ml C-Reactive Protein 9.41 H (0-0.5) mg/dl B-Natriuretic Peptide (0-100) pg/ml Total Protein 6.3 (6.0-8.3) gm/dl Albumin 3.6 (3.4-5.0) gm/dl Globulin 2.7 (2.5-4.0) gm/dl Albumin/Globulin Ratio 1.3 (0.9-2) Lipase < 3 L (11-82) U/L Procalcitonin 0.19 (0-0.5) ng/ml Adenovirus (PCR) Not Detected (NotDetected) B. pertussis DNA (PCR) Not Detected (NotDetected) B.parapertussis DNA PCR Not Detected (NotDetected) C. pneumoniae DNA (PCR) Not Detected (NotDetected) Coronavirus OC43 (PCR) Not Detected (NotDetected) Coronavirus HKU1 (PCR) Not Detected (NotDetected) Coronavirus 229E (PCR) Not Detected (NotDetected) SARS-CoV-2 (PCR) Not Detected (NotDetected) Coronavirus NL63 (PCR) Not Detected (NotDetected) Human Metapneumovir PCR Not Detected (NotDetected) Influenza Type A (PCR) Not Detected (NotDetected) Influenza Type B (PCR) Not Detected (NotDetected) M. pneumoniae (PCR) Not Detected (NotDetected) Parainfluenza 1 (PCR) Not Detected (NotDetected) Parainfluenza 2 (PCR) Not Detected (NotDetected) Parainfluenza 3 (PCR) Not Detected (NotDetected) Parainfluenza 4 (PCR) Not Detected (NotDetected) RSV (PCR) Not Detected (NotDetected) Entero/Rhino (PCR) Not Detected (NotDetected) 04/13/22 04/13/22 04/13/22 Range/Units 04:26 04:26 04:26 WBC (4.8-10.8) K/uL RBC (4.2-5.4) M/uL Hgb (12.0-16.0) g/dL Hct (37-47) % MCV (80-100) fL MCH (25-34) pg MCHC (32-36) g/dL RDW Std Deviation (36.4-46.3) fL RDW Coeff of Akiko (11.5-14.5) % Plt Count (130-400) K/uL MPV (7.4-10.4) fL Immature Gran % (Auto) % Neut % (Auto) % Lymph % (Auto) % [place] % (Auto) % Eos % (Auto) % Baso % (Auto) % Neut # (Auto) (1.4-6.5) K/uL Lymph # (Auto) (1.2-3.4) K/uL [place] # (Auto) (0.11-0.59) K/uL Eos # (Auto) (0-0.5) K/uL Baso # (Auto) (0-0.2) K/uL Immature Gran # (Auto) (0.00-0.02) K/uL ESR (0-30) mm/hr PT 12.0 INR 1.1 APTT 31.3 H PTT Ratio 1.1 Sodium (136-145) mmol/L Potassium (3.5-5.1) mmol/L Chloride (98-107) mmol/L Carbon Dioxide (21-32) mmol/L Anion Gap (3-11) BUN (6-23) mg/dl Creatinine (0.6-1.2) mg/dl Est Cr Clr Drug Dosing ml/min Est GFR ( Amer) ml/min Est GFR (Non-Af Amer) ml/min BUN/Creatinine Ratio (10-20) Glucose (70-99(Fasting)) mg/dl Lactate 0.6 (0.4-2.0) mmol/L Calcium (8.5-10.1) mg/dl Magnesium (1.7-2.4) mg/dl Total Bilirubin (0.2-1.0) mg/dl AST (13-39) U/L ALT (7-52) U/L Alkaline Phosphatase (34-104) U/L Total Creatine Kinase (26-192) U/L Troponin I High Sens (0-14) pg/ml C-Reactive Protein (0-0.5) mg/dl B-Natriuretic Peptide 39 (0-100) pg/ml Total Protein (6.0-8.3) gm/dl Albumin (3.4-5.0) gm/dl Globulin (2.5-4.0) gm/dl Albumin/Globulin Ratio (0.9-2) Lipase (11-82) U/L Procalcitonin (0-0.5) ng/ml Adenovirus (PCR) (NotDetected) B. pertussis DNA (PCR) (NotDetected) B.parapertussis DNA PCR (NotDetected) C. pneumoniae DNA (PCR) (NotDetected) Coronavirus OC43 (PCR) (NotDetected) Coronavirus HKU1 (PCR) (NotDetected) Coronavirus 229E (PCR) (NotDetected) SARS-CoV-2 (PCR) (NotDetected) Coronavirus NL63 (PCR) (NotDetected) Human Metapneumovir PCR (NotDetected) Influenza Type A (PCR) (NotDetected) Influenza Type B (PCR) (NotDetected) M. pneumoniae (PCR) (NotDetected) Parainfluenza 1 (PCR) (NotDetected) Parainfluenza 2 (PCR) (NotDetected) Parainfluenza 3 (PCR) (NotDetected) Parainfluenza 4 (PCR) (NotDetected) RSV (PCR) (NotDetected) Entero/Rhino (PCR) (NotDetected) Imaging Data Radiologist's Impression: Preliminary Findings Only See Final Report For Complete Findings CT CHEST Without Contrast: Severe diffuse emphysematous changes including bullae, greatest in the bilateral upper lobes. Apical pleural-parenchymal scarring. No focal lobar consolidation. No thoracic aortic aneurysm. Atherosclerotic vascular calcifications. Heart is normal in size. Small amount of pericardial fluid or thickening. No significant mediastinal or hilar lymph nodes are present. No pleural effusion or pneumothorax. No acute fracture is identified. CT ABDOMEN & PELVIS Without Contrast: Fluid-filled stomach. No bowel obstruction or ileus. Normal caliber small bowel with scattered air-fluid levels mildly thickened vicente. Abundant stool and gas throughout the colon to the rectum with associated mild wall thickening. Appearance is consistent with a nonspecific enterocolitis. Appendix is not identified. No secondary evidence for appendicitis. No evidence for diverticulitis. No free fluid. Liver is unremarkable. Gallbladder is unremarkable and without gallstones. No evidence for biliary ductal dilation. Pancreas is unremarkable. Spleen is unremarkable. Left kidney not visualized. No left-sided obstructive uropathy. [place] left kidney is unremarkable. Right pelvic transplant kidney is unremarkable without hydronephrosis. Urinary bladder is normal in appearance. Uterus is grossly unremarkable. Ovaries are not distinctly visualized. No abdominal aortic aneurysm. Atherosclerotic vascular calcifications. Spine degenerative changes. MDM Narrative Physical exam and history were performed. Nursing notes, EMR, and Medication List were personally reviewed. Patient appears to have nausea, vomiting, and right-sided abdominal pain bringing her to the ER. She does have a concerning recent medical history with extended admission including intubation and [facility]. IV access was established and labs were obtained. She does have a history of CHF and kidney disease, and I did elect to hydrate her with 1 L of normal saline at 500 mL/h to not fluid overload her. CT scans of her chest and belly were ordered. She was given IV Zofran for comfort. Blood cultures and lactic were performed. Bio fire was gathered. Stool studies were ordered. An order was placed for continuous cardiac monitoring. The monitor shows a rate of 104 with sinus tachycardic rhythm. The patient's blood work is as above and was reviewed. She does not have a significantly elevated white blood cell count or gross anemia. INR is 1.1 she is hypokalemic at 3.0 as well as hypomagnesemic at 1.4. Each of these was repleted through her IV. Glucose is 123. Transaminases are slightly elevated but this does seem chronic when reviewing old labs. CK today is normal. Troponin x1 is negative. Her CRP is notably elevated at 9.4. Lipase is normal. Bio fire is negative. Patient has not provided stool sample at the time of this dictation. Lactic is negative. Patient was reevaluated multiple times throughout the course of her stay. She did have some recurrent vomiting after returning from CT scan. CT scan is as above and was reviewed. She does not appear to have an acute surgical process of the abdomen. Overall I am concerned for the patient's wellbeing. She is with nausea and vomiting at home with electrolyte abnormalities. She is not overly healthy at baseline. The case was discussed with the on-call hospitalist who agreed to evaluate patient here in the ER. Please see their dictation for further patient course, plan, and disposition. The chart was completed utilizing [employer] Speech Voice Recognition Software. Grammatical errors, random word insertions, pronoun errors, and incomplete sentences are an occasional consequence of this system due to software limitations, ambient noise, and hardware issues. Any formal questions or concerns about the content, text, or information contained within the body of this dictation should be directly addressed to the provider for clarification. . Impression & Plan Generalized abdominal pain, Hypokalemia, Nausea and vomiting, Hypomagnesemia Discharge Plan Visit Data Chief Complaint: Vomiting Stated Complaint: Vomiting, Nausea ED Provider: Sho Glass ED Midlevel Provider: Calvin Lawrence Discharge Problem: Generalized abdominal pain, Hypokalemia, Nausea and vomiting, Hypomagnesemia Forms Stand Alone Forms: [employer] Prescriptions Prescriptions: No Action ipratropium-albuterol 0.5 mg-3 mg(2.5 mg base)/3 mL solution for nebulization 3 ml INHALATION QID PRN (Reason: Cough, Shortness of Breath or Wheezing) RF: 0 tizanidine 4 mg tablet 2 mg PO Q8H PRN (Reason: Muscle Spasm) RF: 0 aspirin 81 mg Tablet,Delayed Release (Dr/Ec) 81 mg PO DAILY RF: 0 levothyroxine [Synthroid] 75 mcg tablet 75 mcg PO DAILY RF: 0 lorazepam 0.5 mg tablet 0.5 mg PO DAILY PRN (Reason: Anxiety) RF: 0 ascorbic acid (vitamin C) [Vitamin C] 500 mg Tablet 500 mg PO DAILY RF: 0 trazodone 100 mg tablet 100 mg PO HS RF: 0 cyanocobalamin (vitamin B-12) 1,000 mcg/mL Solution 100 mcg IM MO RF: 0 omeprazole 20 mg capsule,delayed release(DR/EC) 20 mg PO BID RF: 0 folic acid 1 mg Tablet 1 mg PO DAILY RF: 0 metoprolol succinate 25 mg tablet extended release 24 hr 25 mg PO QAM RF: 0 albuterol sulfate 90 mcg/actuation HFA aerosol inhaler 2 puff INHALATION Q4H PRN (Reason: Shortness Of Breath) RF: 0 Flovent HFA 110 mcg/actuation Hfa Aerosol Inhaler 2 puff INHALATION BID RF: 0 pregabalin 75 mg capsule 75 mg PO TID RF: 0 calcium carbonate-vitamin D3 [Calcium 600 + D(3)] 600 mg-10 mcg (400 unit) Tablet 1 tab PO DAILY RF: 0 cholecalciferol (vitamin D3) [Vitamin D3] 50 mcg (2,000 unit) Tablet 50 mcg PO DAILY RF: 0 Stiolto Respimat 2.5-2.5 mcg/actuation mist 2 puff INHALATION DAILY RF: 0 Repatha Pushtronex 420 mg/3.5 mL wearable injector 420 mg SUBCUT MO RF: 0 gabapentin 100 mg Capsule 100 mg PO TID 30 Days Qty: 90 RF: 0 colchicine [Colcrys] 0.6 mg Tablet 0.6 mg PO BID 30 Days Qty: 60 RF: 0 Referrals Referrals: Jayme Chamberlain MD [Primary Care Provider] -
[2022-04-13 03:58] LABS: Basophils # (auto) 0.02 K/uL (0-0.2); Basophils % (auto) 0.4 %; Eosinophils # (auto) 0.03 K/uL (0-0.5); Eosinophils % (auto) 0.6 %; Hematocrit (blood only) 38.6 % (37-47); Hemoglobin 13.1 g/dL (12.0-16.0); Immature Granulocytes # (auto) 0.01 K/uL (0.00-0.02); Immature Granulocytes % (auto) 0.2 %; Lymphocytes # (auto) 0.82 K/uL (1.2-3.4); Lymphocytes % (auto) 17.3 %; Mean Corpuscular Hgb Conc 33.9 g/dL (32-36); Mean Corpuscular Volume 91.5 fL (80-100); Mean Platelet Volume 11.2 fL (7.4-10.4); Monocytes # (auto) 0.72 K/uL (0.11-0.59); Monocytes % (auto) 15.2 %; Neutrophils # (auto) 3.15 K/uL (1.4-6.5); Neutrophils % (auto) 66.3 %; Platelet Count 333 K/uL (130-400); RDW Coefficient of Variation 14.5 % (11.5-14.5); RDW Standard Deviation 48.3 fL (36.4-46.3); Red Blood Count 4.22 M/uL (4.2-5.4); White Blood Count 4.75 K/uL (4.8-10.8)
[2022-04-13 04:25] LABS: Alanine Aminotransferase 66 U/L (7-52); Albumin Globulin Ratio 1.3 (0.9-2); Albumin Level 3.6 gm/dl (3.4-5.0); Alkaline Phosphatase 125 U/L (34-104); Anion Gap 10 (3-11); Aspartate Aminotransferase 48 U/L (13-39); Blood Urea Nitrogen 18 mg/dl (6-23); C Reactive Protein 9.41 mg/dl (0-0.5); Calcium 8.7 mg/dl (8.5-10.1); Carbon Dioxide 36 mmol/L (21-32); Chloride 92 mmol/L (98-107); Creatine Kinase 114 U/L (26-192); Creatinine Clr Calc Pharmacy 53.7 ml/min; Est GFR (African American) 82.3 ml/min; Globulin 2.7 gm/dl (2.5-4.0); Glucose 123 mg/dl (70-99(Fasting)); Lipase < 3 U/L (11-82); Magnesium 1.4 mg/dl (1.7-2.4); Sodium 138 mmol/L (136-145); Total Protein 6.3 gm/dl (6.0-8.3)
[2022-04-13] MEDS ORDERED: POTASSIUM CHLORIDE / WTR 10 MEQ/100 ML PLCT IV ONE (04:27)
[2022-04-13] MEDS ORDERED: MAGNESIUM SULFATE / D5W 1 GM/100 ML BAG IV STA (04:28)
[2022-04-13 04:29] LABS: Troponin I High Sensitivity 11.1 pg/ml (0-14)
[2022-04-13 04:52] LABS: INR 1.1 (0.9-1.1); Partial Thromboplastin Ratio 1.1; Partial Thromboplastin Time 31.3 Seconds (21.0-31.0)
[2022-04-13 04:56] LABS: Adenovirus PCR Not Detected (NotDetected); Bordetella parapertussis PCR Not Detected (NotDetected); Bordetella pertussis PCR Not Detected (NotDetected); Chlamydia pneumoniae PCR Not Detected (NotDetected); Coronavirus 229E PCR Not Detected (NotDetected); Coronavirus CoV-2 (COVID19)PCR Not Detected (NotDetected); Coronavirus HKU1 PCR Not Detected (NotDetected); Coronavirus NL63 PCR Not Detected (NotDetected); Coronavirus OC43PCR Not Detected (NotDetected); Human Metapneumovirus PCR Not Detected (NotDetected); Influenza A PCR Not Detected (NotDetected); Influenza B PCR Not Detected (NotDetected); Mycoplasma pneumoniae PCR Not Detected (NotDetected); Parainfluenza Virus 1 PCR Not Detected (NotDetected); Parainfluenza Virus 2 PCR Not Detected (NotDetected); Parainfluenza Virus 3 PCR Not Detected (NotDetected); Parainfluenza Virus 4 PCR Not Detected (NotDetected); Respiratory Syncytial VirusPCR Not Detected (NotDetected); Rhinovirus/Enterovirus PCR Not Detected (NotDetected)
[2022-04-13] MEDS ORDERED: ONDANSETRON INJ 2 MG/ML 2 ML VIAL IV STA (04:58)
--- NOTE | 2022-04-13 05:54 | History & Physical Report ---
Date of Service April 13, 2022 Assessment & Plan (1) Electrolyte abnormality: Plan: Hypokalemia, hypomagnesemia Secondary to diarrheal illness ? Secondary to colchicine for pericardial effusion Rule out C. difficile given recent hospital stay/antibiotic Rx chronic systolic heart failure (EF 35 to 39%, TTE 2021), patient on the dry side hx CAD status post angioplasty/stent COPD, lung status at baseline hypertension, stable Possible deconditioning Malnutrition low BMI past tobacco abuse. Medical telemetry Replace electrolytes Supportive management for diarrheal illness for now Appropriate to hold colchicine for now. Stool C. difficile Nutrition consult Re: Low BMI PT OT eval DVT prophylaxis. Heparin subcu Full code Text document was generated using [employer] voice recognition software. It may contain grammatical or spelling errors. Kindly contact undersigned for clarification of any documentation item in question. History of Present Illness Chief Complaint: Abdominal pain, nausea, vomiting Primary Care Provider: Dr. Mónica Chamberlain History obtained from patient and records. Medical history significant for chronic systolic heart failure (EF 35 to 39%, TTE 2021), CAD status post angioplasty/stent, COPD, history recurrent spontaneous pneumothorax status post thoracotomy,hypertension, neurofibromatosis, pericardial effusion ongoing colchicine Rx, IBS constipation predominant, gastroparesis as per records, past tobacco abuse. Recent confinement March 10 to April 04, 2022 for respiratory failure secondary to COPD exacerbation secondary to influenza status post intubation. Pericardial effusion found during confinement. Patient discharged on colchicine course. Patient discharged to [facility] for rehab where she stayed for 4 days before returning home. As per patient, she has not felt well since leaving the hospital 10 days ago. Few days history of achy right-sided abdominal pain followed by nausea, vomiting, watery diarrhea. Patient denies chest pain, SOB. Cannot keep anything down. Patient denies fever, chills. Patient consulted ER for evaluation. Medical Historyas above Surgical History : Current section, cervical conization, diagnostic laparoscopy, BTL, tonsillectomy, ganglion cyst removal, hernia repair, lung thoracotomy Family History : Rheumatoid arthritis, lymphoma, diabetes, heart disease, stroke Personal/Social history : Past tobacco abuse, occasional EtOH intake, disabled Allergies Allergy/AdvReac Type Severity Reaction Status Date / Time ibuprofen Allergy Intermediate Unknown Verified 03/10/22 08:38 NSAIDS (Non-Steroidal Allergy Intermediate Unknown Verified 03/10/22 08:38 Anti-Inflamma Sulfa (Sulfonamide Allergy Intermediate HIVES Verified 03/10/22 08:38 Antibiotics) adhesive Allergy Mild BANDAIDS Verified 03/10/22 08:38 SKIN ABRASION ketorolac [From Toradol] Allergy Mild Unknown Verified 03/10/22 08:38 adhesive tape Allergy Unknown Unknown Verified 03/10/22 08:38 tramadol Allergy Unknown . Verified 03/10/22 08:19 rosuvastatin [From Crestor] AdvReac Intermediate Weakness Verified 03/10/22 08:19 prednisone AdvReac Mild Patient Unverified 03/10/22 08:38 Reports Contraindication in Kidney Failure meperidine AdvReac Unknown MOOD SWINGS Verified 03/10/22 08:19 Home Medications Medication Instructions Recorded Confirmed Type albuterol sulfate 90 mcg/actuation 2 puff INHALATION Q4H PRN 03/10/22 03/10/22 History aerosol inhaler ascorbic acid (vitamin C) 500 mg 500 mg PO DAILY 03/10/22 03/10/22 History tablet (Vitamin C) aspirin 81 mg tablet,delayed 81 mg PO DAILY 03/10/22 03/10/22 History release calcium carbonate 600 mg-vitamin 1 tab PO DAILY 03/10/22 03/10/22 History D3 10 mcg (400 unit) tablet (Calcium 600 + D(3)) cholecalciferol (vitamin D3) 50 50 mcg PO DAILY 03/10/22 03/10/22 History mcg (2,000 unit) tablet (Vitamin D3) cyanocobalamin (vitamin B-12) 100 mcg IM MO 03/10/22 03/10/22 History 1,000 mcg/mL injection solution evolocumab 420 mg/3.5 mL 420 mg SUBCUT MO 03/10/22 03/10/22 History subcutaneous wearable injector (Repatha Pushtronex) fluticasone propionate 110 2 puff INHALATION BID 03/10/22 03/10/22 History mcg/actuation HFA aerosol inhaler (Flovent HFA) folic acid 1 mg tablet 1 mg PO DAILY 03/10/22 03/10/22 History ipratropium 0.5 mg-albuterol 3 mg 3 ml INHALATION QID PRN 03/10/22 03/10/22 History (2.5 mg base)/3 mL nebulization soln levothyroxine 75 mcg tablet 75 mcg PO DAILY 03/10/22 03/10/22 History (Synthroid) lorazepam 0.5 mg tablet 0.5 mg PO DAILY PRN 03/10/22 03/10/22 History metoprolol succinate 25 mg 25 mg PO QAM 03/10/22 03/10/22 History tablet,extended release 24 hr omeprazole 20 mg capsule,delayed 20 mg PO BID 03/10/22 03/10/22 History release pregabalin 75 mg capsule 75 mg PO TID 03/10/22 03/10/22 History tiotropium 2.5 mcg-olodaterol 2.5 2 puff INHALATION DAILY 03/10/22 03/10/22 History mcg/actuation mist for inhalation (Stiolto Respimat) tizanidine 4 mg tablet 2 mg PO Q8H PRN 03/10/22 03/10/22 History trazodone 100 mg tablet 100 mg PO HS 03/10/22 03/10/22 History colchicine 0.6 mg tablet (Colcrys) 0.6 mg PO BID 30 Days #60 tab 04/04/22 Rx gabapentin 100 mg capsule 100 mg PO TID 30 Days #90 cap 04/04/22 Rx Past Med/Surg History Medical History Acute exacerbation of chronic obstructive pulmonary disease (COPD) SEVERE EMPHYSEMA Acute respiratory failure with hypoxia UNRULY (acute kidney injury) Anxiety CAD (coronary artery disease) Cavernous hemangioma of brain Gastroparesis Hx of bronchitis Hypokalemia CAN NOT TOLERATE PO POTASSIUM PILLS DUE TO GASTROPARESIS Myocardial infarction 2010 - CHEST PAIN -[facility] ER AND HAD HEART CATH WITH ONE STENT (BARE METAL) FOLLOW WITH [facility] Neurofibromatosis Pneumothorax AGE 24 - SURGERY TO REPAIR THE LEFT SIDE AND CHEMICAL TREATMENT ON THE RIGHT SIDE AT [facility] 2013 ONLY HAD ONE -- ADMITTED TO [facility] --- METABOLIC RELATED ---- NO MEDICATION Shortness of breath Volume overload Surgical History History of hernia repair UMBILICAL Hx of cardiac cath 2010 HEART CATH WITH ONE STENT Hx of section X2 Hx of colonoscopy Hx of vaginal surgery 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 Family History Father Lung disease Severe emphysema, pneumothorax Social History Smoking Status: Former smoker Tobacco Type: Cigarettes Age Started Using Tobacco: 11; Age Quit Using Tobacco: 53; packs per day: 1; Years Smoked: 42; Cigarettes Per Day: 5; Number of Years Since Quit: 1; Second Hand Exposure: No; Hx Alcohol Use: No Hx Substance Use: No Preferred Language: Greenlandic Communication Ability: Unable Truck Washer Required: No Beliefs That Will Affect Care: None marital status: Current Living Situation: Spouse Feels Safe at Home: Yes Assistive Devices: Denture - Upper, Denture - Lower and Oxygen - Continuous Review of Systems Review of Systems: As per HPI, all other systems reviewed and negative Physical Exam Physical Exam: GENERAL: Slightly uncomfortable, underweight, no respiratory distress SKIN: Normal color, warm HEENT: [place] palpebral conjunctivae, no ptosis, dry buccal mucosa NECK : Supple, no tenderness CHEST : Decreased breath sounds, no tenderness HEART : Tachycardic, no murmur ABDOMEN: Some distention, right-sided abdominal tenderness EXTREMITIES : No LE swelling/tenderness, no other conspicuous deformities noted NEUROLOGIC : Coherent, no facial asymmetry, no other gross focality Results & Data Results & Data ([facility]) Vital Signs (Past 12 Hours) Vital Signs Temp Pulse Resp BP Pulse Ox 04/13/22 05:30 104 H 24 126/91 98 04/13/22 05:01 12 132/100 96 04/13/22 04:44 106 H 21 118/86 99 04/13/22 04:00 103 H 16 113/80 97 04/13/22 03:32 36.7 C 110 H 20 131/84 98 Laboratory Results Laboratory Results WBC 4.75 K/uL (4.8-10.8) L 04/13/22 03:10 RBC 4.22 M/uL (4.2-5.4) 04/13/22 03:10 Hgb 13.1 g/dL (12.0-16.0) 04/13/22 03:10 Hct 38.6 % (37-47) 04/13/22 03:10 MCV 91.5 fL (80-100) 04/13/22 03:10 MCH 31.0 pg (25-34) 04/13/22 03:10 MCHC 33.9 g/dL (32-36) 04/13/22 03:10 RDW Std Deviation 48.3 fL (36.4-46.3) H 04/13/22 03:10 RDW Coeff of Akiko 14.5 % (11.5-14.5) 04/13/22 03:10 Plt Count 333 K/uL (130-400) 04/13/22 03:10 MPV 11.2 fL (7.4-10.4) H 04/13/22 03:10 Immature Gran % (Auto) 0.2 % 04/13/22 03:10 Neut % (Auto) 66.3 % 04/13/22 03:10 Lymph % (Auto) 17.3 % 04/13/22 03:10 [place] % (Auto) 15.2 % 04/13/22 03:10 Eos % (Auto) 0.6 % 04/13/22 03:10 Baso % (Auto) 0.4 % 04/13/22 03:10 Neut # (Auto) 3.15 K/uL (1.4-6.5) 04/13/22 03:10 Lymph # (Auto) 0.82 K/uL (1.2-3.4) L 04/13/22 03:10 Gladwin # (Auto) 0.72 K/uL (0.11-0.59) H 04/13/22 03:10 Eos # (Auto) 0.03 K/uL (0-0.5) 04/13/22 03:10 Baso # (Auto) 0.02 K/uL (0-0.2) 04/13/22 03:10 Immature Gran # (Auto) 0.01 K/uL (0.00-0.02) 04/13/22 03:10 ESR 28 mm/hr (0-30) 04/13/22 03:10 PT 12.0 Seconds (9.0-12.0) 04/13/22 04:26 INR 1.1 (0.9-1.1) 04/13/22 04:26 APTT 31.3 Seconds (21.0-31.0) H 04/13/22 04:26 PTT Ratio 1.1 04/13/22 04:26 Sodium 138 mmol/L (136-145) 04/13/22 03:10 Potassium 3.0 mmol/L (3.5-5.1) L 04/13/22 03:10 Chloride 92 mmol/L (98-107) L 04/13/22 03:10 Carbon Dioxide 36 mmol/L (21-32) H 04/13/22 03:10 Anion Gap 10 (3-11) 04/13/22 03:10 BUN 18 mg/dl (6-23) 04/13/22 03:10 Creatinine 0.90 mg/dl (0.6-1.2) 04/13/22 03:10 Est Cr Clr Drug Dosing 53.7 ml/min 04/13/22 03:10 Est GFR ( Amer) 82.3 ml/min 04/13/22 03:10 Est GFR (Non-Af Amer) 71.0 ml/min 04/13/22 03:10 BUN/Creatinine Ratio 20.0 (10-20) 04/13/22 03:10 Glucose 123 mg/dl (70-99(Fasting)) H 04/13/22 03:10 Lactate 0.6 mmol/L (0.4-2.0) 04/13/22 04:26 Calcium 8.7 mg/dl (8.5-10.1) 04/13/22 03:10 Magnesium 1.4 mg/dl (1.7-2.4) L 04/13/22 03:10 Total Bilirubin 1.0 mg/dl (0.2-1.0) 04/13/22 03:10 AST 48 U/L (13-39) H 04/13/22 03:10 ALT 66 U/L (7-52) H 04/13/22 03:10 Alkaline Phosphatase 125 U/L (34-104) H 04/13/22 03:10 Total Creatine Kinase 114 U/L (26-192) 04/13/22 03:10 Troponin I High Sens 11.1 pg/ml (0-14) 04/13/22 03:10 C-Reactive Protein 9.41 mg/dl (0-0.5) H 04/13/22 03:10 B-Natriuretic Peptide 39 pg/ml (0-100) 04/13/22 04:26 Total Protein 6.3 gm/dl (6.0-8.3) 04/13/22 03:10 Albumin 3.6 gm/dl (3.4-5.0) 04/13/22 03:10 Globulin 2.7 gm/dl (2.5-4.0) 04/13/22 03:10 Albumin/Globulin Ratio 1.3 (0.9-2) 04/13/22 03:10 Lipase < 3 U/L (11-82) L 04/13/22 03:10 Procalcitonin 0.19 ng/ml (0-0.5) 04/13/22 03:10 Adenovirus (PCR) Not Detected (NotDetected) 04/13/22 03:45 B. pertussis DNA (PCR) Not Detected (NotDetected) 04/13/22 03:45 B.parapertussis DNA PCR Not Detected (NotDetected) 04/13/22 03:45 C. pneumoniae DNA (PCR) Not Detected (NotDetected) 04/13/22 03:45 Coronavirus OC43 (PCR) Not Detected (NotDetected) 04/13/22 03:45 Coronavirus HKU1 (PCR) Not Detected (NotDetected) 04/13/22 03:45 Coronavirus 229E (PCR) Not Detected (NotDetected) 04/13/22 03:45 SARS-CoV-2 (PCR) Not Detected (NotDetected) 04/13/22 03:45 Coronavirus NL63 (PCR) Not Detected (NotDetected) 04/13/22 03:45 Human Metapneumovir PCR Not Detected (NotDetected) 04/13/22 03:45 Influenza Type A (PCR) Not Detected (NotDetected) 04/13/22 03:45 Influenza Type B (PCR) Not Detected (NotDetected) 04/13/22 03:45 M. pneumoniae (PCR) Not Detected (NotDetected) 04/13/22 03:45 Parainfluenza 1 (PCR) Not Detected (NotDetected) 04/13/22 03:45 Parainfluenza 2 (PCR) Not Detected (NotDetected) 04/13/22 03:45 Parainfluenza 3 (PCR) Not Detected (NotDetected) 04/13/22 03:45 Parainfluenza 4 (PCR) Not Detected (NotDetected) 04/13/22 03:45 RSV (PCR) Not Detected (NotDetected) 04/13/22 03:45 Entero/Rhino (PCR) Not Detected (NotDetected) 04/13/22 03:[address] CHEST Without Contrast initial read: Severe diffuse emphysematous changes including bullae, greatest in the bilateral upper lobes. Apical pleural-parenchymal scarring. No focal lobar consolidation. No thoracic aortic aneurysm. Atherosclerotic vascular calcifications. Heart is normal in size. Small amount of pericardial fluid or thickening. No significant mediastinal or hilar lymph nodes are present. No pleural effusion or pneumothorax. No acute fracture is identified. CT ABDOMEN & PELVIS Without Contrast initial read: Fluid-filled stomach. No bowel obstruction or ileus. Normal caliber small bowel with scattered air-fluid levels mildly thickened vicente. Abundant stool and gas throughout the colon to the rectum with associated mild wall thickening. Appearance is consistent with a nonspecific enterocolitis. Appendix is not identified. No secondary evidence for appendicitis. No evidence for diverticulitis. No free fluid. Liver is unremarkable. Gallbladder is unremarkable and without gallstones. No evidence for biliary ductal dilation. Pancreas is unremarkable. Spleen is unremarkable. Left kidney not visualized. No left-sided obstructive uropathy. [place] left kidney is unremarkable. Right pelvic transplant kidney is unremarkable without hydronephrosis. Urinary bladder is normal in appearance. Uterus is grossly unremarkable. Ovaries are not distinctly visualized. No abdominal aortic aneurysm. Atherosclerotic vascular calcifications. Spine degenerative changes. EKG as per my interpretation rate 105, sinus tachycardia, normal axis, T wave abnormalities anterolateral leads, PVCs
[2022-04-13] MEDS ORDERED: LACTATED RINGER'S 1,000 ML IV ONE (05:55)
--- NOTE | 2022-04-13 06:04 | Emergency Department Note ---
ED Visit Note I was consulted by the Advanced Practice Provider. I saw the patient personally and performed a substantive portion of the visit. This includes aspects of the HPI, MDM, diagnostic interpretations, and disposition/plan. .
[2022-04-13] MEDS: MAGNESIUM SULFATE / D5W 1 GM/100 ML BAG IV SCH ×2 (06:18→07:59)
[2022-04-13] MEDS ORDERED: ACETAMINOPHEN 325 MG TAB PO PRN (06:25)
[2022-04-13] MEDS ORDERED: PROMETHAZINE HCL 6.25 MG in SODIUM CHLORIDE 0.9% 50 ML IV PRN (06:25)
[2022-04-13] MEDS ORDERED: oxyCODONE HCL IR 5 MG TAB (IMMEDIATE RELEASE) PO PRN (06:25)
[2022-04-13] MEDS: POTASSIUM CHLORIDE / WTR 10 MEQ/100 ML PLCT IV SCH ×4 (06:27→16:31)
--- NOTE | 2022-04-13 07:41 | CT Scan Report ---
CT OF THE CHEST WITHOUT IV CONTRAST CLINICAL HISTORY: atypical abdominal pain. Recent hx respiratory failure COMPARISON STUDY: Chest radiograph March 15, 2022. Chest CT November 22, 2019. CT DOSE: 470.07 mGy.cm TECHNIQUE: Axial images of the chest were obtained without IV contrast. Images were reviewed in the axial, sagittal, and coronal planes. IV contrast was not administered for this examination. Automat ed exposure control was utilized for the study. A dose lowering technique was utilized adhering to t he principles of ALARA. FINDINGS: No enlarged axillary, mediastinal or hilar lymph nodes are present. Size of the heart is n ormal. There is no significant pericardial effusion. A oval-shaped 1.4 cm left paravertebral extraple ural nodule on axial image 254 of [address] of November 22, 2019. This is benign. Sev ere emphysema is noted. No pneumothorax or pleural effusion is noted. A irregular 2.1 x 1.2 cm subple ural right upper lobe density on axial image 94 of [address] of November 22, 2019. The jessica fredy of the biapical opacities are unchanged and favor scarring. A 1.2 cm lingular nodular density o n axial image 215 is also new. No acute fracture or suspicious lesion is identified within the visual ized bony thorax. Abdomen and pelvis CT will be reported separately. IMPRESSION: 1. 2.1 x 1.2 cm subpleural irregular density within the right upper lobe, new since chest CT of Decem 2018. This may reflect scarring or a resolving infectious process. However, a chest CT in 6 m cox monett is recommended to exclude the possibility of a pulmonary lesion. This finding will be called/fa xed to the ordering provider at time of dictation. 2. New 1.2 cm lingular nodule which is low suspicion. However, this can be assessed on follow-up exam . This is probably benign. 3. Severe emphysema. ACT 112: Positive. There are findings on this exam that require communication between the performing entity and the patient following Patient Test Result Information Act ([place] Act 112) guidelines. Electronically signed by: Shaheed Xiong M.D. 04/13/2022 7:39 AM
--- NOTE | 2022-04-13 07:50 | CT Scan Report ---
CT OF THE ABDOMEN AND PELVIS WITHOUT CONTRAST CLINICAL HISTORY: Right-sided abdominal pain. Nausea and vomiting. COMPARISON STUDY: CT of the abdomen and pelvis August 23, 2019. Right upper quadrant ultrasound Apri l 2020. TECHNIQUE: Axial images of the abdomen and pelvis were obtained without IV contrast. Images were revi ewed in the axial, sagittal, and coronal planes. Automated exposure control was utilized for the shubham dy. A dose lowering technique was utilized adhering to the principles of ALARA. FINDINGS: Please note that the chest CT will be reported separately. No pneumatosis, free air or port al venous gas is present. Evaluation of the abdomen and pelvis is suboptimal as unenhanced exam. Live r, spleen, adrenal glands, left kidney and pancreas are unremarkable. There is no biliary or pancreat ic ductal dilatation. Right pelvic kidney is noted. Note is made of mild wall thickening of the entir e colon with pericolonic stranding. A moderate amount stool within the colon is present. There is no free air or abscess. No evidence for acute appendicitis. There are multiple prominent fluid-filled lo ops of small bowel. Transition point is not identified. There is trace interloop ascites. No abdomina l or pelvic lymphadenopathy is present. No acute fracture or suspicious lesion within the visualized skeletal structures. IMPRESSION: 1. Pancolonic wall thickening with pericolonic stranding. Prominent fluid-filled loops of small bowel . The findings suggest a nonspecific enterocolitis. A partial small bowel obstruction is within the d ifferential but considered less likely. No evidence for acute appendicitis. 2. Moderate amount of stool within the colon. 3. Right pelvic kidney. ACT 112: Negative or not required by law. Electronically signed by: Shaheed Xiong M.D. 04/13/2022 7:49 AM
[2022-04-13] MEDS ORDERED: PROMETHAZINE 25 MG/51 ML NSS IV ONE (07:55)
[2022-04-13] MEDS ORDERED: LORazepam 0.5 MG TAB PO PRN (09:27)
[2022-04-13] MEDS ORDERED: tiZANidine HCL 4 MG TABLET PO PRN (09:27)
[2022-04-13] MEDS: ASPIRIN 81 MG ECTAB PO SCH (10:41)
[2022-04-13] MEDS: FOLIC ACID 1 MG TAB PO SCH (10:41)
[2022-04-13] MEDS: METOPROLOL SUCC 25MG EXT REL TAB PO SCH (10:42)
[2022-04-13] MEDS: LEVOTHYROXINE SODIUM 75 MCG TABLET PO SCH (10:42)
--- NOTE | 2022-04-13 15:04 | Electrocardiogram Report ---
Test Reason : Blood Pressure : / mmHG Vent. Rate : 106 BPM Atrial Rate : 106 BPM P-R Int : 148 ms QRS Dur : 100 ms QT Int : 332 ms P-R-T Axes : 079 072 086 degrees QTc Int : 441 ms Poor data quality, interpretation may be adversely affected Sinus tachycardia with occasional Premature ventricular complexes Cannot rule out Inferior infarct , age undetermined Abnormal ECG When compared with ECG of 24-MAR-2022 05:18, Premature ventricular complexes are now Present Minimal criteria for Inferior infarct are now Present Nonspecific T wave abnormality has replaced inverted T waves in Lateral leads Confirmed by Berlin Rod ([id number]) on 04/13/2022 3:04:09 PM Referred By: REFERRED SELF Confirmed By:Belrin Rod
[2022-04-13] MEDS: PREGABALIN 75 MG CAP PO SCH ×2 (16:18→22:07)
[2022-04-13] MEDS: HEPARIN SOD 5,000 UNIT/0.5 ML VIAL SQ SCH ×2 (16:18→22:00)
[2022-04-13 16:42] LABS: Adenovirus F 40/41 PCR Not Detected (NotDetected); Astrovirus PCR Not Detected (NotDetected); Campylobacter PCR Not Detected (NotDetected); Clostridium diff Toxin A/B PCR Not Detected (NotDetected); Cryptosporidium PCR Not Detected (NotDetected); Cyclospora cayetanensis PCR Not Detected (NotDetected); Entamoeba histolytica PCR Not Detected (NotDetected); Enteropathogenic E.coli (EPEC) Not Detected (NotDetected); Enterotoxigenic E.coli (ETEC) Not Detected (NotDetected); Giardia lamblia PCR Not Detected (NotDetected); Norovirus GI/GII PCR Not Detected (NotDetected); Plesiomonas shigelloides PCR Not Detected (NotDetected); Rotavirus A PCR Not Detected (NotDetected); Salmonella PCR Not Detected (NotDetected); Sapovirus PCR Not Detected (NotDetected); Shiga-like Toxin E.coli (STEC) Not Detected (NotDetected); Shigella/Enteroinvasive E.coli Not Detected (NotDetected); Vibrio cholerae PCR Not Detected (NotDetected); Vibrio species PCR Not Detected (NotDetected); Yersinia enterocolitica PCR Not Detected (NotDetected)
[2022-04-13 16:52] LABS: Enteroaggregative E.coli(EAEC) DETECTED (NotDetected)
[2022-04-13] MEDS: CIPROFLOXACIN / D5W 400 MG/200 ML BAG IV SCH (20:07)
[2022-04-13] MEDS ORDERED: GABAPENTIN 100 MG CAP PO SCH (21:00)
[2022-04-13] MEDS ORDERED: traZODone HCL 100 MG TAB PO SCH (21:00)
[2022-04-13] MEDS ORDERED: METOCLOPRAMIDE HCL INJ 5 MG/ML 2 ML VIAL IV PRN (21:34)
[2022-04-13] MEDS: PANTOprazole 40 MG TAB PO SCH (21:59)
[2022-04-13] MEDS: metroNIDAZOLE 500 MG TAB PO SCH (22:08)
--- NOTE | 2022-04-13 23:27 | Communication Note ---
Date of Service: April 13, 2022 Pt was seen today for follow up of right-sided abdominal pain associated with nausea, vomiting, watery diarrhea.Pt said that she cannot keep anything down her stomach. Patient denies chest pain, SOB, fever, chills. CT abd/ pelvis showed pancolonic wall thickening with pericolonic stranding. Prominent fluid- filled loops of small bowel. The findings suggest a nonspecific enterocolitis. A partial small bowel obstruction is within the differential but considered less likely. No evidence for acute appendicitis. Will start on IV cipro and Flagyl. Stool sent for Cdiff, pcr and culture. Will advance diet as tolerated. Continue monitor closely. MD Evangelina
[2022-04-14] MEDS ORDERED: CYANOCOBALAMIN 1000 MCG/ML VIAL IM SCH (06:16)
[2022-04-14] MEDS: LEVOTHYROXINE SODIUM 75 MCG TABLET PO SCH (06:26)
[2022-04-14] MEDS: HEPARIN SOD 5,000 UNIT/0.5 ML VIAL SQ SCH ×2 (06:27→13:11)
[2022-04-14 08:05] LABS: Appearance Urine Cloudy (Clear); Bilirubin Urine Negative (Negative); Blood Urine Negative (Negative); Color Urine Dark Yellow; Glucose Urine UA Negative (Negative); Ketones Urine 1+ (Negative); Leukocyte Esterase Urine 1+ (Negative); Nitrite Urine Negative (Negative); Protein Urine Negative (Negative); RBC Urine Automated 0-4 /hpf (0-4); Specific Gravity Urine 1.022 (1.000-1.030); Urobilinogen Urine Negative (Negative)
[2022-04-14 08:35] LABS: Basophils # (auto) 0.02 K/uL (0-0.2); Basophils % (auto) 0.4 %; Eosinophils # (auto) 0.05 K/uL (0-0.5); Hematocrit (blood only) 33.9 % (37-47); Hemoglobin 11.7 g/dL (12.0-16.0); Immature Granulocytes # (auto) 0.02 K/uL (0.00-0.02); Immature Granulocytes % (auto) 0.4 %; Lymphocytes # (auto) 1.28 K/uL (1.2-3.4); Lymphocytes % (auto) 24.9 %; Mean Corpuscular Hemoglobin 31.5 pg (25-34); Mean Corpuscular Hgb Conc 34.5 g/dL (32-36); Mean Corpuscular Volume 91.4 fL (80-100); Mean Platelet Volume 10.6 fL (7.4-10.4); Monocytes # (auto) 0.71 K/uL (0.11-0.59); Monocytes % (auto) 13.8 %; Neutrophils # (auto) 3.06 K/uL (1.4-6.5); Neutrophils % (auto) 59.5 %; Platelet Count 338 K/uL (130-400); RDW Coefficient of Variation 14.7 % (11.5-14.5); RDW Standard Deviation 48.9 fL (36.4-46.3); Red Blood Count 3.71 M/uL (4.2-5.4); White Blood Count 5.14 K/uL (4.8-10.8)
[2022-04-14 08:54] LABS: Bacteria Urine Automated 1+ (Negative)
[2022-04-14] MEDS: metroNIDAZOLE 500 MG TAB PO SCH ×2 (08:55→13:11)
[2022-04-14] MEDS: CIPROFLOXACIN / D5W 400 MG/200 ML BAG IV SCH (08:55)
[2022-04-14] MEDS: METOPROLOL SUCC 25MG EXT REL TAB PO SCH (08:56)
[2022-04-14] MEDS: PANTOprazole 40 MG TAB PO SCH (08:56)
[2022-04-14] MEDS: FOLIC ACID 1 MG TAB PO SCH (08:56)
[2022-04-14] MEDS: ASPIRIN 81 MG ECTAB PO SCH (08:56)
[2022-04-14 08:58] LABS: Albumin Globulin Ratio 1.3 (0.9-2); Albumin Level 3.1 gm/dl (3.4-5.0); BUN Creatinine Ratio 18.1 (10-20); Bilirubin,Total 0.8 mg/dl (0.2-1.0); Creatinine Clr Calc Pharmacy 60.6 ml/min; Est GFR (African American) 90.7 ml/min; Est GFR (Non-African American) 78.3 ml/min; Globulin 2.3 gm/dl (2.5-4.0); Potassium 3.3 mmol/L (3.5-5.1); Total Protein 5.4 gm/dl (6.0-8.3)
[2022-04-14] MEDS: PREGABALIN 75 MG CAP PO SCH ×2 (08:59→13:13)
[2022-04-14] MEDS ORDERED: FLUTICASONE FUROATE 200MCG 14 PUFFS/INHALER INH SCH (09:00)
[2022-04-14] MEDS ORDERED: UMECLIDINIUM/VILANTEROL 62.5/25MCG 7 PUFFS/INHALER INH SCH (09:00)
[2022-04-14] MEDS ORDERED: POTASSIUM CHLORIDE CRTAB 20 MEQ TABCR PO STA (12:58)
--- NOTE | 2022-04-18 14:54 | Coding Query ---
MALNUTRITION To promote full compliance with coding requirements relating to patient care, physician participation is requested in all cases of audiology technician uncertainty. Please assist us with the question(s) below: Please place an X within the parenthesis (x). If other, please document: "Malnutrition" is documented in this record on the H&P. If possible, please check the box that provides a more specific diagnosis: ( ) Mild malnutrition (x ) Moderate malnutrition ( ) Severe malnutrition ( ) Protein malnutrition (kwashiorkor) ( ) Severe protein calorie malnutrition ( ) Protein calorie malnutrition, unspecified ( ) Other (please specify): Thank you Rachel LEDESMA
--- NOTE | 2022-04-24 09:21 | Discharge Summary ---
Date of Service April 14, 2022 Admission HPI Per Admitting Provider History obtained from patient and records. Medical history significant for chronic systolic heart failure (EF 35 to 39%, TTE 2021), CAD status post angioplasty/stent, COPD, history recurrent spontaneous pneumothorax status post thoracotomy,hypertension, neurofibromatosis, pericardial effusion ongoing colchicine Rx, IBS constipation predominant, gastroparesis as per records, past tobacco abuse. Recent confinement March 10 to April 04, 2022 for respiratory failure secondary to COPD exacerbation secondary to influenza status post intubation. Pericardial effusion found during confinement. Patient discharged on colchicine course. Patient discharged to [facility] for rehab where she stayed for 4 days before returning home. As per patient, she has not felt well since leaving the hospital 10 days ago. Few days history of achy right-sided abdominal pain followed by nausea, vomiting, watery diarrhea. Patient denies chest pain, SOB. Cannot keep anything down. Patient denies fever, chills. Patient consulted ER for evaluation. Medical Historyas above Surgical History : Current section, cervical conization, diagnostic laparoscopy, BTL, tonsillectomy, ganglion cyst removal, hernia repair, lung thoracotomy Family History : Rheumatoid arthritis, lymphoma, diabetes, heart disease, stroke Personal/Social history : Past tobacco abuse, occasional EtOH intake, disabled Admission Exam Per Admitting Provider GENERAL: Slightly uncomfortable, underweight, no respiratory distress SKIN: Normal color, warm HEENT: [place] palpebral conjunctivae, no ptosis, dry buccal mucosa NECK : Supple, no tenderness CHEST : Decreased breath sounds, no tenderness HEART : Tachycardic, no murmur ABDOMEN: Some distention, right-sided abdominal tenderness EXTREMITIES : No LE swelling/tenderness, no other conspicuous deformities noted NEUROLOGIC : Coherent, no facial asymmetry, no other gross focality Principal Diagnosis Colitis Abdominal pain Electrolytes abnormality Discharge Exam General- Vent support on sedation Head- atraumatic Eyes- PERRL, EOMI, ENT- No trachea deviation, tongue midline Neck- supple, no JVD Lungs- Diminished BS Heart- regular rhythm; no murmur Abdomen- normal bowel sounds, soft, nontender on palpation Extremities- no calf tenderness Neuro- AA0x3, move all 4 extremities, EOMI Skin- warm & dry Discharge Data Allergies Allergy/AdvReac Type Severity Reaction Status Date / Time ibuprofen Allergy Intermediate Unknown Verified 04/22/22 17:00 NSAIDS (Non-Steroidal Allergy Intermediate Unknown Verified 04/22/22 17:00 Anti-Inflamma Sulfa (Sulfonamide Allergy Intermediate HIVES Verified 04/22/22 17:00 Antibiotics) adhesive Allergy Mild BANDAIDS Verified 04/22/22 17:00 SKIN ABRASION ketorolac [From Toradol] Allergy Mild Unknown Verified 04/22/22 17:00 adhesive tape Allergy Unknown Unknown Verified 04/22/22 17:00 tramadol Allergy Unknown . Verified 04/22/22 17:00 rosuvastatin [From Crestor] AdvReac Intermediate Weakness Verified 04/22/22 17:00 prednisone AdvReac Mild Patient Verified 04/22/22 17:00 Reports Contraindication in Kidney Failure meperidine AdvReac Unknown MOOD SWINGS Verified 04/22/22 17:00 Consultations 04/13/22 05:38 ED Decision to Admit Stat Ordered Studies 04/13/22 03:44 CT abd pelvis wo con Urgent CT chest diagnostic wo con Urgent CT OF THE CHEST WITHOUT IV CONTRAST CLINICAL HISTORY: atypical abdominal pain. Recent hx respiratory failure COMPARISON STUDY: Chest radiograph March 15, 2022. Chest CT November 22, 2019. CT DOSE: 470.07 mGy.cm TECHNIQUE: Axial images of the chest were obtained without IV contrast. Images were reviewed in the axial, sagittal, and coronal planes. IV contrast was not administered for this examination. Automated exposure control was utilized for the study. A dose lowering technique was utilized adhering to the principles of ALARA. FINDINGS: No enlarged axillary, mediastinal or hilar lymph nodes are present. Size of the heart is normal. There is no significant pericardial effusion. A oval-shaped 1.4 cm left paravertebral extrapleural nodule on axial image 254 of [address] of November 22, 2019. This is benign. Severe emphysema is noted. No pneumothorax or pleural effusion is noted. A irregular 2.1 x 1.2 cm subpleural right upper lobe density on axial image 94 of [address] of November 22, 2019. The remainder of the biapical opacities are unchanged and favor scarring. A 1.2 cm lingular nodular density on axial image 215 is also new. No acute fracture or suspicious lesion is identified within the visualized bony thorax. Abdomen and pelvis CT will be reported separately. IMPRESSION: 1. 2.1 x 1.2 cm subpleural irregular density within the right upper lobe, new since chest CT of November 22, 2019. This may reflect scarring or a resolving infectious process. However, a chest CT in 6 months is recommended to exclude the possibility of a pulmonary lesion. This finding will be called/faxed to the ordering provider at time of dictation. 2. New 1.2 cm lingular nodule which is low suspicion. However, this can be assessed on follow-up exam. This is probably benign. 3. Severe emphysema. ACT 112: Positive. There are findings on this exam that require communication between the performing entity and the patient following Patient Test Result Information Act ([place] Act 112) guidelines. Electronically signed by: Shaheed Xiong M.D. 04/13/2022 7:39 AM Dictated:04/13/22728 Transcribed: 04/13/22728 CT OF THE ABDOMEN AND PELVIS WITHOUT CONTRAST CLINICAL HISTORY: Right-sided abdominal pain. Nausea and vomiting. COMPARISON STUDY: CT of the abdomen and pelvis August 23, 2019. Right upper quadrant ultrasound March 12, 2021. TECHNIQUE: Axial images of the abdomen and pelvis were obtained without IV contrast. Images were reviewed in the axial, sagittal, and coronal planes. Automated exposure control was utilized for the study. A dose lowering technique was utilized adhering to the principles of ALARA. FINDINGS: Please note that the chest CT will be reported separately. No pneumatosis, free air or portal venous gas is present. Evaluation of the abdomen and pelvis is suboptimal as unenhanced exam. Liver, spleen, adrenal glands, left kidney and pancreas are unremarkable. There is no biliary or pancreatic ductal dilatation. Right pelvic kidney is noted. Note is made of mild wall thickening of the entire colon with pericolonic stranding. A moderate amount stool within the colon is present. There is no free air or abscess. No evidence for acute appendicitis. There are multiple prominent fluid-filled loops of small bowel. Transition point is not identified. There is trace interloop ascites. No abdominal or pelvic lymphadenopathy is present. No acute fracture or suspicious lesion within the visualized skeletal structures. IMPRESSION: 1. Pancolonic wall thickening with pericolonic stranding. Prominent fluid-filled loops of small bowel. The findings suggest a nonspecific enterocolitis. A partial small bowel obstruction is within the differential but considered less likely. No evidence for acute appendicitis. 2. Moderate amount of stool within the colon. 3. Right pelvic kidney. ACT 112: Negative or not required by law. Electronically signed by: Shaheed Xiong M.D. 04/13/2022 7:49 AM Dictated:04/13/22 0741 Transcribed: 04/13/22740 Hospital Course (1) Electrolyte abnormality: Present on admission with abdominal pain associated with N/V Potassium 3 and magnesium 1.4 on admission Electrolytes replaced Will check BMP in 1 week Abdominal pain associated with Diarrhea/N/V Colitis Maybe related to colchicine vs infectious diarrhea CT abd/pelvis on admission showed Pancolonic wall thickening with pericolonic stranding. Prominent fluid-filled loops of small bowel. The findings suggest a nonspecific enterocolitis. Stool PCR positive for enteroaggressive E coli Stool for Cdiff She was starting on Cipro and Flagyl Due to risk of QTC prolongation Cipro was changed to Cefdinir Will complete course of the antibiotic Tolerated diet Diarrhea and abdominal pain resolved Lung Nodule CT showed 2.1 x 1.2 cm subpleural irregular density within the right upper lobe, new since chest CT of November 22, 2019. New 1.2 cm lingular nodule which is low suspicion. Will need a repeat chest CT in 6 months is recommended to exclude the possibility of a pulmonary lesion. Pericardial effusion ECHO showed moderate sized, loculated anterior and right lateral pericardial effusion Will resume Colchicine BID Stable Systolic heart failure BNP on admission 682 ECHO showed dilated left ventricle with severe global hypokinesis and estimated left ventricular ejection fraction of around 20 to 25%.Thickening of the pericardium and a small pericardial effusion consistent with chronic pericarditis. Repeat ECHO showed Moderate diffuse Left ventricular Hypokinesis with EF 35-39% Cardiology on board Continue Metoprolol 25mg daily and low dose Losartan Continue monitor BMP Anxiety IV Precedex drip discontinued while in the ICU Continue gabapentin /Lorazepam CAD s/p stenting Continue aspirin, metoprolol GERD- On PPI Hypothyroidism Continue Synthroid DVT prophylaxis- Heparin subq Full code Total Time Total Time Spent Total Time Spent (In Minutes): 35 minutes Discharge Plan Discharge Items Patient Disposition: Home - Home Health Services Reason For Visit: HYPOK, HYPOMAG Discharge Diagnosis: Colitis Abdominal pain Electrolytes abnormality Activity: Resume your previous activity Non-emergency contact: Primary Care Provider and Machine Stamper Call non-emergency contact if: you have any medication questions and your temperature is above 101 Follow-up/Referrals: Jayme Chamberlain MD [Primary Care Provider] - Diet: Low Fiber Addtl Attending Provider Instructions: Follow up with your primary care provider within 1 week Follow up with your gastroenterology for the colitis Continue physical and occupational therapy Advance diet slowly as tolerated Seek medical attention if your diarrhea worsening Continue oxygen supplement Check BMP in 1 week to monitor your electrolytes Fall precaution Pending Studies at Discharge: No Stand-Alone Forms: My [facility], Smoking Cessation Medications and DC Order Prescriptions: Continued ipratropium-albuterol 0.5 mg-3 mg(2.5 mg base)/3 mL solution for nebulization 3 ml INHALATION QID PRN (Reason: Cough, Shortness of Breath or Wheezing) RF: 0 tizanidine 4 mg tablet 2 mg PO Q8H PRN (Reason: Muscle Spasm) RF: 0 aspirin 81 mg Tablet,Delayed Release (Dr/Ec) 81 mg PO DAILY RF: 0 levothyroxine [Synthroid] 75 mcg tablet 75 mcg PO DAILY RF: 0 lorazepam 0.5 mg tablet 0.5 mg PO DAILY PRN (Reason: Anxiety) RF: 0 ascorbic acid (vitamin C) [Vitamin C] 500 mg Tablet 500 mg PO DAILY RF: 0 trazodone 100 mg tablet 100 mg PO HS RF: 0 cyanocobalamin (vitamin B-12) 1,000 mcg/mL Solution 100 mcg IM MONTHLY RF: 0 omeprazole 20 mg capsule,delayed release(DR/EC) 20 mg PO BID RF: 0 folic acid 1 mg Tablet 1 mg PO DAILY RF: 0 metoprolol succinate 25 mg tablet extended release 24 hr 25 mg PO QAM RF: 0 albuterol sulfate 90 mcg/actuation HFA aerosol inhaler 2 puff INHALATION Q4H PRN (Reason: Shortness Of Breath) RF: 0 Flovent HFA 110 mcg/actuation Hfa Aerosol Inhaler 2 puff INHALATION BID RF: 0 pregabalin 75 mg capsule 75 mg PO TID RF: 0 calcium carbonate-vitamin D3 [Calcium 600 + D(3)] 600 mg-10 mcg (400 unit) Tablet 1 tab PO DAILY RF: 0 cholecalciferol (vitamin D3) [Vitamin D3] 50 mcg (2,000 unit) Tablet 50 mcg PO DAILY RF: 0 Stiolto Respimat 2.5-2.5 mcg/actuation mist 2 puff INHALATION DAILY RF: 0 Repatha Pushtronex 420 mg/3.5 mL wearable injector 420 mg SUBCUT MONTHLY RF: 0 colchicine [Colcrys] 0.6 mg Tablet 0.6 mg PO BID 30 Days Qty: 60 RF: 0 Discontinued gabapentin 100 mg Capsule 100 mg PO TID 30 Days Qty: 90 RF: 0 Discharge Orders: Discharge Order (Routine); Ordered 04/14/22 Ordered By: Sanchez Hutchinson Admission Data Admit Date/Time: 04/13/22 06:23 Attending Provider: Sanchez Hutchinson Admit Provider: Lopez Eubanks Primary Care Provider: Jayme Chamberlain Other Interventions: Discharge Summary Assessment (RN) Last Done: 04/14/22 17:27
== END 2022-04-14 18:49 | disposition home health service (06) | DRG 394 ==
LOC: ED 03:30 → EDINP 06:23 → 2W 09:28

== ENCOUNTER 2022-04-22 13:53 | Inpatient (IN) ==
[2022-04-22 15:55] LABS: Basophils # (auto) 0.02 K/uL (0-0.2); Basophils % (auto) 0.1 %; Hematocrit (blood only) 39.4 % (37-47); Hemoglobin 13.9 g/dL (12.0-16.0); Immature Granulocytes # (auto) 0.15 K/uL (0.00-0.02); Immature Granulocytes % (auto) 0.9 %; Lymphocytes # (auto) 2.46 K/uL (1.2-3.4); Mean Corpuscular Hemoglobin 32.2 pg (25-34); Mean Corpuscular Hgb Conc 35.3 g/dL (32-36); Mean Corpuscular Volume 91.2 fL (80-100); Mean Platelet Volume 10.5 fL (7.4-10.4); Monocytes # (auto) 1.24 K/uL (0.11-0.59); Neutrophils # (auto) 13.72 K/uL (1.4-6.5); Platelet Count 564 K/uL (130-400); RDW Coefficient of Variation 15.8 % (11.5-14.5); RDW Standard Deviation 51.9 fL (36.4-46.3); Red Blood Count 4.32 M/uL (4.2-5.4); White Blood Count 17.59 K/uL (4.8-10.8)
[2022-04-22 16:19] LABS: Alanine Aminotransferase 39 U/L (7-52); Albumin Globulin Ratio 1.4 (0.9-2); Albumin Level 3.9 gm/dl (3.4-5.0); Alkaline Phosphatase 89 U/L (34-104); Anion Gap 17 (3-11); BUN Creatinine Ratio 23.5 (10-20); Bilirubin,Total 0.9 mg/dl (0.2-1.0); Blood Urea Nitrogen 23 mg/dl (6-23); Calcium 8.9 mg/dl (8.5-10.1); Carbon Dioxide 24 mmol/L (21-32); Chloride 96 mmol/L (98-107); Est GFR (African American) 74.2 ml/min; Globulin 2.7 gm/dl (2.5-4.0); Glucose 97 mg/dl (70-99(Fasting)); Lipase 8 U/L (11-82); Sodium 137 mmol/L (136-145); Total Protein 6.6 gm/dl (6.0-8.3)
[2022-04-22] MEDS ORDERED: PROMETHAZINE 12.5 MG/50.5 ML BAG IV STA ×2 (16:52→20:35)
[2022-04-22] MEDS ORDERED: SODIUM CHLORIDE 0.9% 1000ML 1,000 ML IV ONE (16:52)
--- NOTE | 2022-04-22 16:55 | Emergency Department Note ---
History of Present Illness General Chief complaint: Abdominal Pain Stated complaint: NAUSEA, VOMITING, AB PAIN Time Seen by Provider: 04/22/22 16:38 Source: patient and family (Family may member who is at the) Mode of arrival: ambulatory Limitations: no limitations History of Present Illness Maximum Pain Intensity: 10 This patient is a 56-year-old female who comes in after nausea vomiting diarrhea abdominal pain for least 3 days. She was seen here on the and admitted for couple days had colitis she is on antibiotics she is gotten worse over the last couple days no fever no cough no COVID exposure. No blood or melena stool no dysuria. No trauma. She was intubated for influenza over but that got better. Home Medications Medication Instructions Recorded Confirmed Type albuterol sulfate 90 mcg/actuation 2 puff INHALATION Q4H PRN 03/10/22 04/22/22 History aerosol inhaler ascorbic acid (vitamin C) 500 mg 500 mg PO DAILY 03/10/22 04/22/22 History tablet (Vitamin C) aspirin 81 mg tablet,delayed 81 mg PO DAILY 03/10/22 04/22/22 History release calcium carbonate 600 mg-vitamin 1 tab PO DAILY 03/10/22 04/22/22 History D3 10 mcg (400 unit) tablet (Calcium 600 + D(3)) cholecalciferol (vitamin D3) 50 50 mcg PO DAILY 03/10/22 04/22/22 History mcg (2,000 unit) tablet (Vitamin D3) cyanocobalamin (vitamin B-12) 100 mcg IM MONTHLY 03/10/22 04/22/22 History 1,000 mcg/mL injection solution evolocumab 420 mg/3.5 mL 420 mg SUBCUT MONTHLY 03/10/22 04/22/22 History subcutaneous wearable injector (Repatha Pushtronex) fluticasone propionate 110 2 puff INHALATION BID 03/10/22 04/22/22 History mcg/actuation HFA aerosol inhaler (Flovent HFA) folic acid 1 mg tablet 1 mg PO DAILY 03/10/22 04/22/22 History ipratropium 0.5 mg-albuterol 3 mg 3 ml INHALATION QID PRN 03/10/22 04/22/22 History (2.5 mg base)/3 mL nebulization soln levothyroxine 75 mcg tablet 75 mcg PO DAILY 03/10/22 04/22/22 History (Synthroid) lorazepam 0.5 mg tablet 0.5 mg PO DAILY PRN 03/10/22 04/22/22 History metoprolol succinate 25 mg 25 mg PO QAM 03/10/22 04/22/22 History tablet,extended release 24 hr omeprazole 20 mg capsule,delayed 20 mg PO BID 03/10/22 04/22/22 History release pregabalin 75 mg capsule 75 mg PO TID 03/10/22 04/22/22 History tiotropium 2.5 mcg-olodaterol 2.5 2 puff INHALATION DAILY 03/10/22 04/22/22 History mcg/actuation mist for inhalation (Stiolto Respimat) tizanidine 4 mg tablet 2 mg PO Q8H PRN 03/10/22 04/22/22 History trazodone 100 mg tablet 100 mg PO HS 03/10/22 04/22/22 History colchicine 0.6 mg tablet (Colcrys) 0.6 mg PO BID 30 Days #60 tab 04/04/22 04/22/22 Rx Allergies Allergy/AdvReac Type Severity Reaction Status Date / Time ibuprofen Allergy Intermediate Unknown Verified 04/22/22 17:00 NSAIDS (Non-Steroidal Allergy Intermediate Unknown Verified 04/22/22 17:00 Anti-Inflamma Sulfa (Sulfonamide Allergy Intermediate HIVES Verified 04/22/22 17:00 Antibiotics) adhesive Allergy Mild BANDAIDS Verified 04/22/22 17:00 SKIN ABRASION ketorolac [From Toradol] Allergy Mild Unknown Verified 04/22/22 17:00 adhesive tape Allergy Unknown Unknown Verified 04/22/22 17:00 tramadol Allergy Unknown . Verified 04/22/22 17:00 rosuvastatin [From Crestor] AdvReac Intermediate Weakness Verified 04/22/22 1 7:00 prednisone AdvReac Mild Patient Verified 04/22/22 17:00 Reports Contraindication in Kidney Failure meperidine AdvReac Unknown MOOD SWINGS Verified 04/22/22 17:00 Past Med/Surg History Medical History Acute exacerbation of chronic obstructive pulmonary disease (COPD) SEVERE EMPHYSEMA Acute respiratory failure with hypoxia UNRULY (acute kidney injury) Anxiety CAD (coronary artery disease) Cavernous hemangioma of brain Gastroparesis Hx of bronchitis Hypokalemia CAN NOT TOLERATE PO POTASSIUM PILLS DUE TO GASTROPARESIS Myocardial infarction 2010 - CHEST PAIN -[facility] ER AND HAD HEART CATH WITH ONE STENT (BARE METAL) FOLLOW WITH [facility] Neurofibromatosis Pneumothorax AGE 24 - SURGERY TO REPAIR THE LEFT SIDE AND CHEMICAL TREATMENT ON THE RIGHT SIDE AT [facility] 2013 ONLY HAD ONE -- ADMITTED TO [facility] --- METABOLIC RELATED ---- NO MEDICA TION Shortness of breath Volume overload Surgical History History of hernia repair UMBILICAL Hx of cardiac cath 2010 HEART CATH WITH ONE STENT Hx of section X2 Hx of colonoscopy Hx of vaginal surgery 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 Family History Father Lung disease Severe emphysema, pneumothorax Social History Smoking Status: Former smoker Tobacco Type: Cigarettes Age Started Using Tobacco: 11; Age Quit Using Tobacco: 53; packs per day: 1; Years Smoked: 42; Cigarettes Per Day: 5; Number of Years Since Quit: 1; Second Hand Exposure: No; Do You Dip or Chew Tobacco: No; Tobacco Cessation Education Requested by Patient: No Hx Alcohol Use: Yes Alcohol type: beer, wine and hard liquor Hx Substance Use: No Preferred Language: Sami Communication Ability: Effective Incident Response Consultant Required: No Beliefs That Will Affect Care: None marital status: Current Living Situation: Spouse How many Children do You have: 3 Other Information That Helps Us Care for You: No Feels Safe at Home: Yes Safety Concerns: Feels Safe At This Time Assistive Devices: Oxygen - Continuous Review of Systems A total of 10 systems reviewed and were otherwise negative Physical Exam Vital Signs Vital Signs - 24 hr 04/22/22 14:14 04/22/22 18:50 04/22/22 19:27 Temperature 36.9 C Temperature Source Temporal Artery Scan Pulse Rate 118 H 86 Pulse Rate [Bilateral Apical] 111 H Respiratory Rate 20 20 20 Respiratory Effort / Characteristics Non-Labored Respiratory Depth Normal Blood Pressure 118/83 161/90 H Blood Pressure [Left Arm] 150/109 H Blood Pressure Mean 94 113 Blood Pressure Mean [Left Arm] 122 Blood Pressure Position Sitting Pulse Oximetry 99 100 100 Oxygen Delivery Method Room Air Nasal Cannula Nasal Cannula Oxygen Flow Rate 2 2 Sepsis Recent Fever Within 48 Hours No Sepsis New/Unexplained Change in Mental Status N/A Sepsis Action Taken by Nursing No Action Required 04/22/22 20:29 Temperature Temperature Source Pulse Rate Pulse Rate [Bilateral Apical] 103 H Respiratory Rate 20 Respiratory Effort / Characteristics Respiratory Depth Blood Pressure Blood Pressure [Left Arm] 168/96 H Blood Pressure Mean Blood Pressure Mean [Left Arm] 120 Blood Pressure Position Pulse Oximetry 100 Oxygen Delivery Method Nasal Cannula Oxygen Flow Rate 2 Sepsis Recent Fever Within 48 Hours Sepsis New/Unexplained Change in Mental Status Sepsis Action Taken by Nursing General: Well developed well nourished slender middle-aged female who is com of nausea and diarrhea but in no acute repiratory distress, breathing comfortably on room air. Normal speech HEENT: Normal cephalic atraumatic. Pupils are equal round and reactive to light. Extraocular movements are intact. Oropharynx is pink with moist mucous membranes. No swelling of the mouth lips or tongue. Neck: Supple with a midline trachea. No meningeal signs or stiffness, no JVD or bruits. No Stridor. Chest: Clear to auscultation bilaterally. No wheezes or rhonchi. No increased work of breathing. Heart: Regular rate and rhythm without murmurs or gallops. Abdomen: Soft nontender, nondistended without rebound guarding or rigidity. Extremities: No cyanosis clubbing or edema. No calf tenderness or assymetry Spine/Back. Non tender to palpation. No CVA tenderness Skin: Good turgor without rashes. Neurologic exam: Cranial nerves two through 12 are intact. Motor and sensation are intact and symmetrical throughout. Course Administered Medications Acetaminophen (Acetaminophen 325 Mg Tab) 650 mg PO Q4H PRN PRN Reason: Pain or Fever Stop: 05/22/22 22:22 Last Admin: 04/22/22 22:50 Dose: 650 mg Documented by: [id number] Colchicine (Colchicine 0.6 Mg Tab) 0.6 mg PO BID JUDITH Stop: 05/22/22 22:22 Last Admin: 04/22/22 22:50 Dose: Not Given Documented by: [id number] Enoxaparin Sodium (Enoxaparin Inj 40 Mg/0.4 Ml Syr) 40 mg SQ HS JUDITH Stop: 05/22/22 22:44 Last Admin: 04/22/22 23:01 Dose: 40 mg Documented by: [id number] Dextrose/Sodium Chloride (D5w And Nss) 1,000 mls @ 75 mls/hr IV .[id number] JUDITH Stop: 05/22/22 22:22 Last Admin: 04/22/22 22:39 Dose: 75 mls/hr Documented by: [id number] Morphine Sulfate (Morphine Sulfate 2 Mg/Ml Carp) 2 mg IV Q3H PRN PRN Reason: Pain Stop: 05/06/22 22:22 Last Admin: 04/22/22 22:50 Dose: 2 mg Documented by: [id number] Pantoprazole Sodium (Pantoprazole 40 Mg Tab) 40 mg PO BID JUDITH Stop: 05/22/22 22:59 Last Admin: 04/22/22 23:01 Dose: 40 mg Documented by: [id number] Pregabalin (Pregabalin 75 Mg Cap) 75 mg PO TID JUDITH Stop: 05/22/22 22:22 Last Admin: 04/22/22 22:50 Dose: 75 mg Documented by: [id number] Trazodone HCl (Trazodone Hcl 100 Mg Tab) 100 mg PO HS JUDITH Stop: 05/22/22 22:22 Last Admin: 04/22/22 22:50 Dose: Not Given Documented by: [id number] Discontinued Medications Sodium Chloride (Nss 1000ml) 1,000 mls @ 999 mls/hr IV .[id number] ONE Stop: 04/22/22 17:52 Last Infusion: 04/22/22 18:38 Dose: 0 mls/hr Documented by: [id number] Admin: 04/22/22 17:36 Dose: 999 mls/hr Documented by: [id number] Promethazine HCl (Phenergan) 12.5 mg in 50.5 mls @ 202 mls/hr IV NOW STA Stop: 04/22/22 17:06 Last Infusion: 04/22/22 17:50 Dose: 0 mls/hr Documented by: [id number] Admin: 04/22/22 17:35 Dose: 202 mls/hr Documented by: [id number] Sodium Chloride (Nss) 500 mls @ 999 mls/hr IV .Q31M ONE Stop: 04/22/22 19:42 Last Infusion: 04/22/22 20:18 Dose: 0 mls/hr Documented by: [id number] Admin: 04/22/22 19:44 Dose: 999 mls/hr Documented by: [id number] Promethazine HCl (Phenergan) 12.5 mg in 50.5 mls @ 202 mls/hr IV NOW STA Stop: 04/22/22 20:49 Last Infusion: 04/22/22 21:15 Dose: 0 mls/hr Documented by: [id number] Admin: 04/22/22 20:42 Dose: 202 mls/hr Documented by: [id number] Lorazepam (Lorazepam 1 Mg Tab) 0.5 mg SL NOW STA Stop: 04/22/22 19:13 Last Admin: 04/22/22 19:42 Dose: 0.5 mg Documented by: [id number] Metoprolol Tartrate (Metoprolol Tartrate 25 Mg Tab) 25 mg PO NOW STA Stop: 04/22/22 23:11 Last Admin: 04/22/22 23:28 Dose: 25 mg Documented by: [id number] Potassium Chloride (Potassium Chloride Crtab 20 Meq Tabcr) 40 meq PO NOW STA Stop: 04/22/22 19:23 Last Admin: 04/22/22 19:42 Dose: 40 meq Documented by: [id number] Medical Decision Making Differential Diagnosis Dehydration, colitis, electrolyte or metabolic abnormality, infection, sepsis Medical Records Attestation: I reviewed the patient's medical records. Home Medications Current Medication List: was personally reviewed by me Laboratory Data Attestation: I reviewed the patient's lab results. Result diagrams: 04/22/22 15:31 04/22/22 17:05 Lab Results 04/22/22 04/22/22 04/22/22 Range/Units 15: 15: 17:05 WBC 17.59 H (4.8-10.8) K/uL RBC 4.32 (4.2-5.4) M/uL Hgb 13.9 (12.0-16.0) g/dL Hct 39.4 (37-47) % MCV 91.2 (80-100) fL MCH 32.2 (25-34) pg MCHC 35.3 (32-36) g/dL RDW Std Deviation 51.9 H (36.4-46.3) fL RDW Coeff of Akiko 15.8 H (11.5-14.5) % Plt Count 564 H (130-400) K/uL MPV 10.5 H (7.4-10.4) fL Immature Gran % (Auto) 0.9 % Neut % (Auto) 78.0 % Lymph % (Auto) 14.0 % Burnet % (Auto) 7.0 % Eos % (Auto) 0.0 % Baso % (Auto) 0.1 % Neut # (Auto) 13.72 H (1.4-6.5) K/uL Lymph # (Auto) 2.46 (1.2-3.4) K/uL Burnet # (Auto) 1.24 H (0.11-0.59) K/uL Eos # (Auto) 0.00 (0-0.5) K/uL Baso # (Auto) 0.02 (0-0.2) K/uL Immature Gran # (Auto) 0.15 H (0.00-0.02) K/uL Sodium 137 (136-145) mmol/L Potassium 3.2 L (3.5-5.1) mmol/L Chloride 96 L (98-107) mmol/L Carbon Dioxide 24 (21-32) mmol/L Anion Gap 17 H (3-11) BUN 23 (6-23) mg/dl Creatinine 0.98 (0.6-1.2) mg/dl Est Cr Clr Drug Dosing Not Reportable Est GFR ( Amer) 74.2 ml/min Est GFR (Non-Af Amer) 64.0 ml/min BUN/Creatinine Ratio 23.5 H (10-20) Glucose 97 (70-99(Fasting)) mg/dl Lactate (0.4-2.0) mmol/L Calcium 8.9 (8.5-10.1) mg/dl Magnesium (1.7-2.4) mg/dl Total Bilirubin 0.9 (0.2-1.0) mg/dl AST 24 (13-39) U/L ALT 39 (7-52) U/L Alkaline Phosphatase 89 (34-104) U/L Troponin I High Sens (0-14) pg/ml Total Protein 6.6 (6.0-8.3) gm/dl Albumin 3.9 (3.4-5.0) gm/dl Globulin 2.7 (2.5-4.0) gm/dl Albumin/Globulin Ratio 1.4 (0.9-2) Lipase 8 L (11-82) U/L SARS-CoV-2, RNA, NAAT (NEGATIVE) 04/22/22 04/22/22 04/22/22 Range/Units 17:05 17:05 17:12 WBC (4.8-10.8) K/uL RBC (4.2-5.4) M/uL Hgb (12.0-16.0) g/dL Hct (37-47) % MCV (80-100) fL MCH (25-34) pg MCHC (32-36) g/dL RDW Std Deviation (36.4-46.3) fL RDW Coeff of Akiko (11.5-14.5) % Plt Count (130-400) K/uL MPV (7.4-10.4) fL Immature Gran % (Auto) % Neut % (Auto) % Lymph % (Auto) % Burnet % (Auto) % Eos % (Auto) % Baso % (Auto) % Neut # (Auto) (1.4-6.5) K/uL Lymph # (Auto) (1.2-3.4) K/uL Burnet # (Auto) (0.11-0.59) K/uL Eos # (Auto) (0-0.5) K/uL Baso # (Auto) (0-0.2) K/uL Immature Gran # (Auto) (0.00-0.02) K/uL Sodium (136-145) mmol/L Potassium (3.5-5.1) mmol/L Chloride (98-107) mmol/L Carbon Dioxide (21-32) mmol/L Anion Gap (3-11) BUN (6-23) mg/dl Creatinine (0.6-1.2) mg/dl Est Cr Clr Drug Dosing Est GFR ( Amer) ml/min Est GFR (Non-Af Amer) ml/min BUN/Creatinine Ratio (10-20) Glucose (70-99(Fasting)) mg/dl Lactate 1.2 (0.4-2.0) mmol/L Calcium (8.5-10.1) mg/dl Magnesium 1.9 (1.7-2.4) mg/dl Total Bilirubin (0.2-1.0) mg/dl AST (13-39) U/L ALT (7-52) U/L Alkaline Phosphatase (34-104) U/L Troponin I High Sens (0-14) pg/ml Total Protein (6.0-8.3) gm/dl Albumin (3.4-5.0) gm/dl Globulin (2.5-4.0) gm/dl Albumin/Globulin Ratio (0.9-2) Lipase (11-82) U/L SARS-CoV-2, RNA, NAAT NEGATIVE (NEGATIVE) 04/22/22 Range/Units 20:16 WBC (4.8-10.8) K/uL RBC (4.2-5.4) M/uL Hgb (12.0-16.0) g/dL Hct (37-47) % MCV (80-100) fL MCH (25-34) pg MCHC (32-36) g/dL RDW Std Deviation (36.4-46.3) fL RDW Coeff of Akiko (11.5-14.5) % Plt Count (130-400) K/uL MPV (7.4-10.4) fL Immature Gran % (Auto) % Neut % (Auto) % Lymph % (Auto) % Burnet % (Auto) % Eos % (Auto) % Baso % (Auto) % Neut # (Auto) (1.4-6.5) K/uL Lymph # (Auto) (1.2-3.4) K/uL Burnet # (Auto) (0.11-0.59) K/uL Eos # (Auto) (0-0.5) K/uL Baso # (Auto) (0-0.2) K/uL Immature Gran # (Auto) (0.00-0.02) K/uL Sodium (136-145) mmol/L Potassium (3.5-5.1) mmol/L Chloride (98-107) mmol/L Carbon Dioxide (21-32) mmol/L Anion Gap (3-11) BUN (6-23) mg/dl Creatinine (0.6-1.2) mg/dl Est Cr Clr Drug Dosing Est GFR ( Amer) ml/min Est GFR (Non-Af Amer) ml/min BUN/Creatinine Ratio (10-20) Glucose (70-99(Fasting)) mg/dl Lactate (0.4-2.0) mmol/L Calcium (8.5-10.1) mg/dl Magnesium (1.7-2.4) mg/dl Total Bilirubin (0.2-1.0) mg/dl AST (13-39) U/L ALT (7-52) U/L Alkaline Phosphatase (34-104) U/L Troponin I High Sens 18.9 H D (0-14) pg/ml Total Protein (6.0-8.3) gm/dl Albumin (3.4-5.0) gm/dl Globulin (2.5-4.0) gm/dl Albumin/Globulin Ratio (0.9-2) Lipase (11-82) U/L SARS-CoV-2, RNA, NAAT (NEGATIVE) Imaging Data Radiologist's Impression: Abdomen/Pelvis CT 04/22/22 16:53 CT OF THE ABDOMEN AND PELVIS WITHOUT CONTRAST CLINICAL HISTORY: Nausea, abdominal pain and diarrhea. Evaluate for colitis. COMPARISON STUDY: CT of the abdomen and pelvis April 13, 2022. TECHNIQUE: Axial images of the abdomen and pelvis were obtained without IV contrast. Images were reviewed in the axial, sagittal, and coronal planes. Automated exposure control was utilized for the study. A dose lowering technique was utilized adhering to the principles of ALARA. FINDINGS: Severe emphysema is noted within the visualized lower lungs. Small hiatal hernia is present. No pneumatosis, free air or portal venous gas is present. Evaluation of the abdomen and pelvis is suboptimal on this unenhanced examination. Unenhanced images of the liver, spleen, adrenal glands, left kidney and pancreas are unremarkable. Right pelvic kidney is noted. There is no hydronephrosis. There is no evidence for a bowel obstruction. Persistent wall thickening and mild pericolonic infiltration of the colon is again noted. This involves the majority of the colon. Appearance is similar slightly improved since CT of April 13, 2022. Moderate amount of stool is noted within the colon. No lymphadenopathy is present. There is no evidence for acute appendicitis. Hyperdense material within the appendix is noted. There are no urinary calculi. No acute fracture or suspicious lesion within the visualized skeletal structures is present. IMPRESSION: 1. Wall thickening with pericolonic infiltration which involves the majority of the colon. This is stable to slightly improved since CT of April 13, 2022. This represents a persistent nonspecific colitis. No free air or abscess. Moderate amount stool within the colon and rectum. 2. No bowel obstruction. 3. Right pelvic kidney. ACT 112: Negative or not required by law. Electronically signed by: Shaheed Xiong M.D. 04/22/2022 6:52 PM ECG Data Attestation: I personally reviewed and interpreted this ECG as follows: Indication: + chest pain and + other (Electrolyte/metabolic) Rate (beats per minute): 111 Rhythm: + sinus tachycardia ECG Intervals/blocks: + Incomplete right bundle branch block, + Normal QT and + Normal [place] ECG ST segments: + Nonspecific ST abnormalities ECG Findings: no PACs or no PVCs Comparison ECG Date: from (04/13/22) Change: no significant change Additional Comments: EKG #2: Tachycardia with nonspecific ST and T wave abnormalities. No significant change compared to EKG #1. Incomplete right bundle branch block. MDM Narrative This patient comes in as described above. She was placed in room number B 10 on a pulmonary physician. She has had nausea, vomiting, diarrhea, abdominal cramping. she has known colitis. IV access was established and she was given IV fluid bolus gently. She was also given Phenergan 12.5 mg IV for nausea she tells me has had this before without difficulties and tells me that the Zofran that she is been taking at home has not been working. EKG and CAT scan were obtained as well. She is reassessed frequently. Potassium is mildly low at 3.2. COVID testing was negative. While she was here she started feeling some mild chest discomfort which he said felt more just like shortness of breath she thought she was anxious I repeat her EKG is no change. EKG #1. Her initial troponin was only mildly elevated on the high-sensitivity troponin. She was given Ativan 0.5 mg sublingual which she typically takes. She was also given additional Phenergan for some more nausea while she was here. I do think she needs to be admitted/observed have consulted the [facility] team to see her for these measures. Her lactic acid was not elevated her white count is moderately elevated her CAT scan appears unchanged compared to previous is no abscess Continuous cardiac monitoring: Orders placed in EMR for continuous cardiac monitoring. Upon my interpretation patient noted to be sinus tachycardia with a rate of 110 Impression & Plan Colitis, Acute dehydration, Nausea & vomiting, Lab test negative for COVID-19 virus, Diarrhea Discharge Plan Visit Data Chief Complaint: Abdominal Pain Stated Complaint: NAUSEA, VOMITING, AB PAIN ED Provider: Bart Shepard Discharge Problem: Colitis, Acute dehydration, Nausea & vomiting, Lab test negative for COVID-19 virus, Diarrhea Patient Disposition: Admitted As Inpatient Discharge Instructions Interventions: ED Discharge Assessment Last Done: 04/22/22 21:52
[2022-04-22 17:41] LABS: Potassium 3.2 mmol/L (3.5-5.1)
--- NOTE | 2022-04-22 18:54 | CT Scan Report ---
CT OF THE ABDOMEN AND PELVIS WITHOUT CONTRAST CLINICAL HISTORY: Nausea, abdominal pain and diarrhea. Evaluate for colitis. COMPARISON STUDY: CT of the abdomen and pelvis April 13, 2022. TECHNIQUE: Axial images of the abdomen and pelvis were obtained without IV contrast. Images were revi ewed in the axial, sagittal, and coronal planes. Automated exposure control was utilized for the shubham dy. A dose lowering technique was utilized adhering to the principles of ALARA. FINDINGS: Severe emphysema is noted within the visualized lower lungs. Small hiatal hernia is present . No pneumatosis, free air or portal venous gas is present. Evaluation of the abdomen and pelvis is s uboptimal on this unenhanced examination. Unenhanced images of the liver, spleen, adrenal glands, lef t kidney and pancreas are unremarkable. Right pelvic kidney is noted. There is no hydronephrosis. The re is no evidence for a bowel obstruction. Persistent wall thickening and mild pericolonic infiltrati on of the colon is again noted. This involves the majority of the colon. Appearance is similar slight ly improved since CT of April 13, 2022. Moderate amount of stool is noted within the colon. No lymphade nopathy is present. There is no evidence for acute appendicitis. Hyperdense material within the appen brendan is noted. There are no urinary calculi. No acute fracture or suspicious lesion within the visuali zed skeletal structures is present. IMPRESSION: 1. Wall thickening with pericolonic infiltration which involves the majority of the colon. This is st able to slightly improved since CT of April 13, 2022. This represents a persistent nonspecific colitis. No free air or abscess. Moderate amount stool within the colon and rectum. 2. No bowel obstruction. 3. Right pelvic kidney. ACT 112: Negative or not required by law. Electronically signed by: Shaheed Xiong M.D. 04/22/2022 6:52 PM
[2022-04-22] MEDS ORDERED: SODIUM CHLORIDE 0.9% 500 ML IV ONE (19:12)
[2022-04-22] MEDS ORDERED: LORazepam 1 MG TAB SL STA (19:12)
[2022-04-22] MEDS ORDERED: POTASSIUM CHLORIDE CRTAB 20 MEQ TABCR PO STA (19:22)
[2022-04-22] MEDS ORDERED: ALBUTEROL HFA 8 GM INHALER INH PRN (22:23)
[2022-04-22] MEDS ORDERED: PANTOprazole 40 MG TAB PO SCH (22:23)
[2022-04-22] MEDS ORDERED: NITROGLYCERIN SL 0.4 MG/TAB TAB SL PRN (22:23)
[2022-04-22] MEDS: D5W AND NSS 1,000 ML IV SCH (22:39)
[2022-04-22] MEDS: ACETAMINOPHEN 325 MG TAB PO PRN (22:50)
[2022-04-22] MEDS: MoRPHine SULFATE 2 MG/ML CARP IV PRN (22:50)
[2022-04-22] MEDS: PREGABALIN 75 MG CAP PO SCH (22:50)
[2022-04-22] MEDS: traZODone HCL 100 MG TAB PO SCH (22:50)
[2022-04-22] MEDS: COLCHICINE 0.6 MG TAB PO SCH (22:50)
--- NOTE | 2022-04-22 22:58 | History and Physical Report ---
DATE OF ADMISSION: 04/22/2022 CHIEF COMPLAINT: Abdominal pain, chest pain, persistent nausea, vomiting, and diarrhea. HISTORY OF PRESENT ILLNESS: This is a 56-year-old female with a past medical history significant for chronic systolic heart failure with EF of 35%-39%, history of CAD, status post angioplasty and stents, history of COPD, history of recurrent spontaneous pneumothorax, status post thoracotomy, history of hypertension, neurofibromatosis, history of pericardial effusion, on ongoing colchicine treatment, history of IBS, constipation predominant, history of gastroparesis as per records, history of past tobacco use. She was in the hospital from 03/10/2022 to 04/04/2022 for respiratory failure secondary to COPD exacerbation secondary to influenza, status post intubation and found to have pericardial effusion during that admission and the patient was discharged on colchicine course. She was again in the hospital for nausea, vomiting and diarrhea, thought to be from colchicine and colitis, and the patient was in the hospital for a couple of days and got discharged. Again was in the ER on last Thursday, but again was discharged and then comes here back because of persistent nausea, vomiting and diarrhea. Not able to eat anything, not able to keep anything down, and also having severe abdominal pain. In the ER today, she also has some chest pain. Currently resting comfortably and hemodynamically stable. She states she is on oxygen 2 liters all the time. No headache, no blurred visions, no earache, no runny nose, no sore throat. Normal bowel and bladder movements. ALLERGIES: IBUPROFEN, NSAIDS, SULFA ANTIBIOTICS, ADHESIVES, TRAMADOL, CRESTOR, PREDNISONE, MEPERIDINE. PAST MEDICAL HISTORY: As mentioned above. PAST SURGICAL HISTORY: , colonoscopy, conization of cervix, EGD with biopsy, injection of lumbosacral and cervical spine, diagnostic laparoscopy for infertility problems, ligation of oviducts, tonsillectomy, excision of left ganglion in , repair of ventral hernia, thoracotomy with repair of lung in 1988 and 1990. MEDICATIONS: The patient is on albuterol 2 puffs inhalation q.4 hours p.r.n., vitamin C 500 mg p.o. daily, aspirin 81 mg p.o. daily, calcium carbonate plus vitamin D 1 tablet p.o. daily, colchicine 0.6 mg p.o. b.i.d., vitamin B12 100 mcg IM monthly, Flovent HFA 2 puffs inhalation b.i.d., folic acid 1 mg p.o. daily, DuoNeb q.i.d. p.r.n., levothyroxine 75 mcg p.o. daily, lorazepam 0.5 mg p.o. daily p.r.n., metoprolol succinate 25 mg p.o. a.m., omeprazole 20 mg p.o. b.i.d., pregabalin 75 mg p.o. t.i.d., Repatha 420 mg subcutaneous monthly, Stiolto Respimat 2 puffs inhalation daily, tizanidine 2 mg p.o. q.8 hours p.r.n., trazodone 100 mg p.o. at bedtime. FAMILY HISTORY: Significant for mother has arthritis; father had stroke, heart disorder; maternal grandfather had lymphoma; paternal grandfather had cancer, heart disorder. SOCIAL HISTORY: . Smokes 1 pack a day for 45 years. Alcohol rarely. No drug use. Lives with her daughter and her . REVIEW OF SYSTEMS: As per HPI. Rest of the review of systems is negative. PHYSICAL EXAMINATION: GENERAL: The patient is of moderate build, not in acute distress. VITAL SIGNS: Temperature 36.9, pulse 103, respiratory rate 20, blood pressure 168/96, oxygen 100% on 2 liters. HEENT: Pupils equal, round and reactive to light. Oral mucosa moist. NECK: No JVD. No neck masses. CARDIOVASCULAR: S1 and S2 heard. Regular rate and rhythm. No murmur, no gallop. RESPIRATORY SYSTEM: Normal AP diameter. No accessory muscle use. No wheezing, no crackles. ABDOMEN: Soft. Bowel sounds are present. Mild diffuse discomfort. No guarding, no rigidity, no distention. CENTRAL NERVOUS SYSTEM: Cranial nerves II through XII are grossly intact, nonfocal. EXTREMITIES: No edema, no erythema. LABORATORIES: WBC 17.5, hemoglobin 13.9, hematocrit 39.4, platelets 564. Sodium 137, potassium 3.2, chloride 96, bicarb 24, BUN 23, creatinine 0.9, serum glucose 97, lactate 1.2, calcium 8.9, magnesium 1.9, total bilirubin 0.9, AST 24, ALT 39, alkaline phosphatase 89. Troponin I high sensitivity 11.1. Troponin x3 results are pending. Lipase 8. SARS-CoV-2 rapid test negative. IMAGING: CT of abdomen and pelvis without contrast: Wall thickening and pericolonic infiltration, which involves the majority of the colon, this is stable to slightly improved since the CAT scan on 04/18/2022. This represent a persistent nonspecific colitis. No free air or abscess. Moderate amount of stool within the colon and rectum. No bowel obstruction. EKG: Sinus tachycardia at a rate of 111. Bilateral atrial enlargement, incomplete right bundle-branch block, nonspecific ST-T wave abnormalities. ASSESSMENT AND PLAN: This 56-year-old female who presents with persistent nausea, vomiting, abdominal pain, and new-onset chest pain. 1. Persistent nausea, vomiting, and abdominal pain. CAT scan showing persistent nonspecific colitis. We will check stool for Clostridium difficile, stool for stool cultures and place her on clear liquid diet, IV fluids, antiemetics, and pain medicines and closely monitor in the hospital and gastrointestinal consult in the a.m. 2. Chest pain. We will follow troponins and EKG and serial enzymes. Because of recent pericardial effusion, we will consult cardiology in the a.m. 3. Pericardial effusion. Currently on colchicine. Colchicine could be a cause of her current symptoms. 4. History of chronic obstructive pulmonary disease and chronic respiratory failure, on oxygen 2 liters all the time. Continue home inhalers and oxygen. 5. Chronic diastolic and systolic congestive heart failure, ejection fraction of 35%-39%. Getting fluids. The patient is not on any diuretics. We will monitor for any volume overload. 6. Hypothyroidism, on Synthroid. 7. Deep venous thrombosis prophylaxis, placed on Lovenox. DISPOSITION: Closely monitor in the med-tele. PT/OT prior to discharge. Social service to help with discharge planning. Job ID: [id number] [facility]
[2022-04-22] MEDS: PANTOprazole 40 MG TAB PO SCH (23:01)
[2022-04-22] MEDS: ENOXAPARIN INJ 40 MG/0.4 ML SYR SQ SCH (23:01)
[2022-04-22] MEDS ORDERED: METOPROLOL TARTRATE 25 MG TAB PO STA (23:10)
[2022-04-23 00:17] LABS: Adenovirus F 40/41 PCR Not Detected (NotDetected); Astrovirus PCR Not Detected (NotDetected); Campylobacter PCR Not Detected (NotDetected); Clostridium diff Toxin A/B PCR Not Detected (NotDetected); Cryptosporidium PCR Not Detected (NotDetected); Cyclospora cayetanensis PCR Not Detected (NotDetected); Entamoeba histolytica PCR Not Detected (NotDetected); Enteropathogenic E.coli (EPEC) Not Detected (NotDetected); Enterotoxigenic E.coli (ETEC) Not Detected (NotDetected); Giardia lamblia PCR Not Detected (NotDetected); Norovirus GI/GII PCR Not Detected (NotDetected); Plesiomonas shigelloides PCR Not Detected (NotDetected); Rotavirus A PCR Not Detected (NotDetected); Salmonella PCR Not Detected (NotDetected); Sapovirus PCR Not Detected (NotDetected); Shiga-like Toxin E.coli (STEC) Not Detected (NotDetected); Shigella/Enteroinvasive E.coli Not Detected (NotDetected); Vibrio cholerae PCR Not Detected (NotDetected); Vibrio species PCR Not Detected (NotDetected); Yersinia enterocolitica PCR Not Detected (NotDetected)
[2022-04-23 00:20] LABS: Enteroaggregative E.coli(EAEC) DETECTED (NotDetected)
[2022-04-23] MEDS: LEVOTHYROXINE SODIUM 75 MCG TABLET PO SCH (05:36)
[2022-04-23 06:02] LABS: Basophils # (auto) 0.01 K/uL (0-0.2); Basophils % (auto) 0.1 %; Eosinophils # (auto) 0.04 K/uL (0-0.5); Eosinophils % (auto) 0.3 %; Hematocrit (blood only) 32.5 % (37-47); Hemoglobin 11.2 g/dL (12.0-16.0); Immature Granulocytes # (auto) 0.09 K/uL (0.00-0.02); Immature Granulocytes % (auto) 0.7 %; Lymphocytes # (auto) 2.49 K/uL (1.2-3.4); Mean Corpuscular Hemoglobin 30.9 pg (25-34); Mean Corpuscular Hgb Conc 34.5 g/dL (32-36); Mean Corpuscular Volume 89.8 fL (80-100); Monocytes # (auto) 1.02 K/uL (0.11-0.59); Monocytes % (auto) 8.2 %; Neutrophils # (auto) 8.83 K/uL (1.4-6.5); Neutrophils % (auto) 70.7 %; Platelet Count 391 K/uL (130-400); RDW Coefficient of Variation 15.6 % (11.5-14.5); RDW Standard Deviation 51.3 fL (36.4-46.3); Red Blood Count 3.62 M/uL (4.2-5.4); White Blood Count 12.48 K/uL (4.8-10.8)
[2022-04-23 06:23] LABS: Est GFR (African American) 93.4 ml/min; Est GFR (Non-African American) 80.6 ml/min; Potassium 2.8 mmol/L (3.5-5.1)
[2022-04-23 06:24] LABS: BUN Creatinine Ratio 22.2 (10-20); Calcium 7.8 mg/dl (8.5-10.1); Creatinine Clr Calc Pharmacy 61.7 ml/min; Magnesium 1.7 mg/dl (1.7-2.4)
[2022-04-23] MEDS: MoRPHine SULFATE 2 MG/ML CARP IV PRN ×2 (07:00→21:01)
[2022-04-23] MEDS: COLCHICINE 0.6 MG TAB PO SCH (07:29)
[2022-04-23] MEDS: ASPIRIN 81 MG ECTAB PO SCH (07:39)
[2022-04-23] MEDS: FLUTICASONE FUROATE 200MCG 14 PUFFS/INHALER INH SCH (07:39)
[2022-04-23] MEDS: ASCORBIC ACID 500 MG TAB PO SCH (07:39)
[2022-04-23] MEDS: METOPROLOL SUCC 25MG EXT REL TAB PO SCH (07:40)
[2022-04-23] MEDS: PANTOprazole 40 MG TAB PO SCH ×2 (07:40→21:02)
[2022-04-23] MEDS: FOLIC ACID 1 MG TAB PO SCH (07:40)
[2022-04-23] MEDS: PREGABALIN 75 MG CAP PO SCH ×3 (07:41→21:01)
[2022-04-23] MEDS: UMECLIDINIUM/VILANTEROL 62.5/25MCG 7 PUFFS/INHALER INH SCH (07:41)
--- NOTE | 2022-04-23 08:22 | Cardiology Consultation ---
Date of Consultation April 23, 2022 Assessment & Plan (1) Nausea & vomiting: (2) Electrolyte abnormality: (3) Generalized abdominal pain: (4) Pericardial effusion: (5) Left ventricular systolic dysfunction: (6) Hypertension: (7) Prolonged QT interval: Patient admitted after weeks of abdominal pain, nausea, vomiting, diarrhea. Possibly colitis. GI consulted. Stop colchicine which may be offending agent. Echo updated this admission with improved pericardial effusion, now small in si ze. LVEF improved as well, now 45%. Stable cardiac symptoms. No further cardiac testing warranted. Prolonged QT noted on last EKG. Avoid Zofran and QT prolonging agents. repeat EKG this morning. Continue metoprolol 25 mg daily. Her HR's were initially elevated yesterday in the ER, but now improved on telemetry. Currently NSR. BP also elevated on arrival, but trending down. Will monitor. BP likely will improve as her abdominal complaints improve. Supplement potassium and magnesium. Ordered. Case discussed with Dr. Kearns. will follow. Supervising Physician Co-Signing Physician Notes Supervising Physician Attestation: I have personally performed a history and physical examination on the patient. I agree with the physician emergency medicine physician assistant's findings and plan as documented with the following additions. Subjective: Patient subjectively improved. Denies chest discomfort. Denies shortness of breath. States her abdominal complaints are trending toward improvement. She actually looks great compared to when I had seen her during her past hospital stay. Telemetry reveals sinus rhythm in the 70s to 80s. Exam: Cardiovascular regular rhythm no murmurs No edema Lungs clear to auscultation bilaterally Data: Echo results as noted above Assessment and Plan: As noted, discontinue colchicine, as pericardial effusion has trended toward improvement and limiting this medicine may help ease her GI complaints. DVT prophylaxis: Subcutaneous Lovenox 40 mg daily at bedtime Calvin Kearns, DO History of Present Illness Reason for Consultation: Abd pain/chest pain; history of CHF and pericardial effusion Requesting Physician: Dr. Owens Attending Physician: Dr. Kearns History of Present Illness Patient is a 56 year old female with complex history known to [facility] cardiology with recent admissions for respiratory failure in setting of influenza infection, CHF with interval decline in LVEF, moderate pericardial effusion in February 2022. She was started on colchicine on discharge for pericardial effusion. Over the last few weeks patient has reported worsening abdominal pain, nausea, vomiting, lack of appetite. She was evaluated at [facility] last week for persistent diarrhea and electrolyte disturbances, diagnosed with colitis. Symptoms improved during admission. Unfortunately patient returned to [facility] yesterday with recurrent symptoms of abdominal pain, diarrhea, hypokalemia. Has not been able to eat in 'weeks' per the patient. Upon admission, Abd CT scan consistent with colitis. Potassium low. Cardio was consulted due to history of CHF, pericardial effusion. Echo was updated this morning demonstrated mild improvement in her LVEF and small pericardial effusion, improved from prior evaluation. At time of consult, patient reports feeling slightly better. Notes ongoing abdominal pain and diahrrhea. No chest pain. SOB at baseline. BP has been slightly high. HR's were also elevated on arrival, but improved on telemetry this morning. No orthopnea, PND or edema. No sense of palpitations or dizziness. History includes: 1.History of CAD (BMS to RCA in 2010), negative nuclear stress test 02/2021. 2.COPD - Oxygen dependent. 3.Supraventricular ectopy and SVT - controlled with metoprolol. 4.Rhabdomyolysis March 2021 due to statin. Statin contraindicated 5.Dyslipidemia - goal < 70 given history of CAD 6.Right cerebellar cavernoma - high risk for bleeding/hemorrhage per neurology and recent MRI, avoid dual antiplatelet therapy/anticoagulation. 7.Pericardial effusion, small/chronic 8.Hypotension - asymptomatic 9. Recent admission for acute respiratory failure, requiring intubation in setting of influenza infection, CHF. Moderate pericardial effusion noted during that admission. No tamponade. Colchicine initiated. LVEF improved to 35% prior to discharge. Allergies Allergy/AdvReac Type Severity Reaction Status Date / Time ibuprofen Allergy Intermediate Unknown Verified 04/22/22 17:00 NSAIDS (Non-Steroidal Allergy Intermediate Unknown Verified 04/22/22 17:00 Anti-Inflamma Sulfa (Sulfonamide Allergy Intermediate HIVES Verified 04/22/22 17:00 Antibiotics) adhesive Allergy Mild BANDAIDS Verified 04/22/22 17:00 SKIN ABRASION ketorolac [From Toradol] Allergy Mild Unknown Verified 04/22/22 17:00 adhesive tape Allergy Unknown Unknown Verified 04/22/22 17:00 tramadol Allergy Unknown . Verified 04/22/22 17:00 rosuvastatin [From Crestor] AdvReac Intermediate Weakness Verified 04/22/22 17:00 prednisone AdvReac Mild Patient Verified 04/22/22 17:00 Reports Contraindication in Kidney Failure meperidine AdvReac Unknown MOOD SWINGS Verified 04/22/22 17:00 Home Medications Medication Instructions Recorded Confirmed Type albuterol sulfate 90 mcg/actuation 2 puff INHALATION Q4H PRN 03/10/22 04/22/22 History aerosol inhaler ascorbic acid (vitamin C) 500 mg 500 mg PO DAILY 03/10/22 04/22/22 History tablet (Vitamin C) aspirin 81 mg tablet,delayed 81 mg PO DAILY 03/10/22 04/22/22 History release calcium carbonate 600 mg-vitamin 1 tab PO DAILY 03/10/22 04/22/22 History D3 10 mcg (400 unit) tablet (Calcium 600 + D(3)) cholecalciferol (vitamin D3) 50 50 mcg PO DAILY 03/10/22 04/22/22 History mcg (2,000 unit) tablet (Vitamin D3) cyanocobalamin (vitamin B-12) 100 mcg IM MONTHLY 03/10/22 04/22/22 History 1,000 mcg/mL injection solution evolocumab 420 mg/3.5 mL 420 mg SUBCUT MONTHLY 03/10/22 04/22/22 History subcutaneous wearable injector (Repatha Pushtronex) fluticasone propionate 110 2 puff INHALATION BID 03/10/22 04/22/22 History mcg/actuation HFA aerosol inhaler (Flovent HFA) folic acid 1 mg tablet 1 mg PO DAILY 03/10/22 04/22/22 History ipratropium 0.5 mg-albuterol 3 mg 3 ml INHALATION QID PRN 03/10/22 04/22/22 History (2.5 mg base)/3 mL nebulization soln levothyroxine 75 mcg tablet 75 mcg PO DAILY 03/10/22 04/22/22 History (Synthroid) lorazepam 0.5 mg tablet 0.5 mg PO DAILY PRN 03/10/22 04/22/22 History metoprolol succinate 25 mg 25 mg PO QAM 03/10/22 04/22/22 History tablet,extended release 24 hr omeprazole 20 mg capsule,delayed 20 mg PO BID 03/10/22 04/22/22 History release pregabalin 75 mg capsule 75 mg PO TID 03/10/22 04/22/22 History tiotropium 2.5 mcg-olodaterol 2.5 2 puff INHALATION DAILY 03/10/22 04/22/22 History mcg/actuation mist for inhalation (Stiolto Respimat) tizanidine 4 mg tablet 2 mg PO Q8H PRN 03/10/22 04/22/22 History trazodone 100 mg tablet 100 mg PO HS 03/10/22 04/22/22 History colchicine 0.6 mg tablet (Colcrys) 0.6 mg PO BID 30 Days #60 tab 04/04/22 04/22/22 Rx Patient History Medical History Acute exacerbation of chronic obstructive pulmonary disease (COPD) SEVERE EMPHYSEMA Acute respiratory failure with hypoxia UNRULY (acute kidney injury) Anxiety CAD (coronary artery disease) Cavernous hemangioma of brain Gastroparesis Hx of bronchitis Hypokalemia CAN NOT TOLERATE PO POTASSIUM PILLS DUE TO GASTROPARESIS Myocardial infarction 2010 - CHEST PAIN -[facility] ER AND HAD HEART CATH WITH ONE STENT (BARE METAL) FOLLOW WITH S CARDIO Neurofibromatosis Pneumothorax AGE 24 - SURGERY TO REPAIR THE LEFT SIDE AND CHEMICAL TREATMENT ON THE RIGHT SIDE AT [facility] 2013 ONLY HAD ONE -- ADMITTED TO [facility] --- METABOLIC RELATED ---- NO MEDICATION Shortness of breath Volume overload Surgical History History of hernia repair UMBILICAL Hx of cardiac cath 2010 HEART CATH WITH ONE STENT Hx of section X2 Hx of colonoscopy Hx of vaginal surgery 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 Family History Father Lung disease Severe emphysema, pneumothorax Social History Smoking Status: Former smoker Tobacco Type: Cigarettes Age Started Using Tobacco: 11; Age Quit Using Tobacco: 53; packs per day: 1; Years Smoked: 42; Cigarettes Per Day: 5; Number of Years Since Quit: 1; Second Hand Exposure: No; Do You Dip or Chew Tobacco: No; Tobacco Cessation Education Requested by Patient: No Hx Alcohol Use: Yes Alcohol type: beer, wine and hard liquor Hx Substance Use: No Preferred Language: Bulgarian Communication Ability: Effective Fulfillment Coordinator Required: No Beliefs That Will Affect Care: None marital status: Current Living Situation: Spouse How many Children do You have: 3 Other Information That Helps Us Care for You: No Feels Safe at Home: Yes Safety Concerns: Feels Safe At This Time Assistive Devices: Oxygen - Continuous Review of Systems Review of Systems: All systems reviewed & are unremarkable except as noted in HPI & below Physical Exam Constitutional: WD/WN, vitals as above + thin; no acute distress Neck: trachea midline, no thyromegaly Respiratory: no respiratory distress Auscultation: + diminished lung sounds; no crackles, no rales and no wheezes Cardiovascular: Rate/Rhythm: regular rate and regular rhythm Heart Sounds: normal S1 and normal S2; no murmur Vessels: no JVD Extremities: no edema Gastrointestinal (Abdomen): Inspection/Auscultation: abdomen normal to inspection and normal bowel sounds; abdomen not distended Percussion/Palpation: + abdomen tender (mild, diffuse tenderness) Skin: no rashes, warm and dry Neurologic: PERRL, EOMI, accommodation nl, no face palsy, no dysarthria Results & Data ([facility]) Vital Signs (Past 12 Hours) Vital Signs Temp Pulse Pulse Pulse Resp BP BP 04/23/22 06:29 37.1 C 78 16 150/90 H 04/23/22 03:10 36.9 C 97 H 16 155/100 H 04/22/22 23:25 37.4 C 104 H 16 134/85 04/22/22 22:23 37.8 C H 116 H 116 H 18 165/107 H 04/22/22 21:48 104 H 20 150/93 H 04/22/22 20:29 103 H 20 168/96 H Pulse Ox Pulse Ox 04/23/22 06:29 99 04/23/22 03:10 100 04/22/22 23:25 99 04/22/22 22:23 99 99 04/22/22 21:48 98 04/22/22 20:29 100 Laboratory Results Cardiac Enzymes 04/23/22 04/23/22 04/23/22 Range/Units 05:29 10:38 17:00 Troponin I High Sens 33.8 H D 28.0 H 26.7 H (0-14) pg/ml CBC 04/23/22 Range/Units 05:29 WBC 12.48 H (4.8-10.8) K/uL RBC 3.62 L (4.2-5.4) M/uL Hgb 11.2 L (12.0-16.0) g/dL Hct 32.5 L (37-47) % Plt Count 391 (130-400) K/uL Neut # (Auto) 8.83 H (1.4-6.5) K/uL Lymph # (Auto) 2.49 (1.2-3.4) K/uL Crockett # (Auto) 1.02 H (0.11-0.59) K/uL Eos # (Auto) 0.04 (0-0.5) K/uL Baso # (Auto) 0.01 (0-0.2) K/uL Comprehensive Metabolic Panel 04/23/22 Range/Units 05:29 Sodium 137 (136-145) mmol/L Potassium 2.8 L (3.5-5.1) mmol/L Chloride 104 (98-107) mmol/L Carbon Dioxide 26 (21-32) mmol/L BUN 18 (6-23) mg/dl Creatinine 0.81 (0.6-1.2) mg/dl Glucose 105 H (70-99(Fasting)) mg/dl Calcium 7.8 L (8.5-10.1) mg/dl Intake and Output 04/23/22 04/23/22 04/23/22 06:59 14:59 22:59 Intake Total 1335.084 / 1435.084 100 / 1435.084 Output Total 650 / 650 300 / 300 Balance -650 / 951.0 1035.084 / 1135.084 100 / 1135.084 Intake: IV 1135.084 / 1235.084 100 / 1235.084 D5w and Nss 1,000 ml @ 75 mls/ 940 / 940 hr IV .[id number] JUDITH Rx#:[id number] Potassium Chloride / Wtr 10 meq 195.084 / 295.084 100 / 295.084 In 100 ml @ 100 mls/hr IV Q1H JUDITH Rx#:[id number] Oral 200 / 200 Output: Urine 300 / 300 Urine Amount (Catheter) 650 / 650 Straight 650 / 650 Other: Weight 51 kg Weight Measurement Method Built in [facility] Diagnostic Findings Telemetry reviewed: Normal sinus rhythm, heart rates ranging 80-100's. no concerning arrhythmias. EKG on admission: Sinus tachycardia Biatrial enlargement Incomplete right bundle branch block Nonspecific ST and T wave abnormality When compared with prior EKG, no significant changes noted. Repeat EKG: Sinus tachycardia Incomplete right bundle branch block ST & T wave abnormality consider anterior ischemia Prolonged QT echo report reviewed from today, 04/23/22: LV systolic function is mildly reduced. EF 40-45% Severe hypokinesis to akinesis of the basal inferior wall, inferoseptum. Otherwise mild diffuse hypokinesis. Mild MR Small loculated anterior and right lateral pericardial effusion with moderate organization No evidence of tamponade Compared to prior study dated 03/11/22, LV systolic function has improved. Pericardial effusion previously reported as moderate, now appears small. Echo report reviewed dated 03/19/22: Focused study completed Moderate diffuse LV hypokinesis is present. LV systolic function is moderately reduced. LVEF 35-39% Moderate sized loculated anterior and right lateral pericardial effusion Fibrinous strands are present, consistent wiht some degree of chronicity of the effusion Compared to prior study dated 03/11/22 there has been an interval increase in size of the pericardial effusion. THere has been an interval subtle improvement in the LV systolic function, however moderate LV dysfunction persists. Medications Administered Current Inpatient Medications Acetaminophen (Acetaminophen 325 Mg Tab) 650 mg PO Q4H PRN PRN Reason: Pain or Fever Stop: 05/22/22 22:22 Last Admin: 04/22/22 22:50 Dose: 650 mg Documented by: Albuterol (Albuterol Hfa 8 Gm Inhaler) 2 puffs INH Q4H PRN PRN Reason: Shortness Of Breath Stop: 05/22/22 22:22 Albuterol (Albut/Ipratrop 3mg/0.5mg Neb 3 Ml Vial) 3 ml INH QID PRN; Protocol PRN Reason: Cough, Shortness of Breath or Wheezing Stop: 05/22/22 22:22 Ascorbic Acid (Ascorbic Acid 500 Mg Tab) 500 mg PO DAILY [facility] Stop: 05/23/22 08:59 Last Admin: 04/23/22 07:39 Dose: 500 mg Documented by: Aspirin (Aspirin 81 Mg Ectab) 81 mg PO DAILY [facility] Stop: 05/23/22 08:59 Last Admin: 04/23/22 07:39 Dose: 81 mg Documented by: Enoxaparin Sodium (Enoxaparin Inj 40 Mg/0.4 Ml Syr) 40 mg SQ HS [facility] Stop: 05/22/22 22:44 Last Admin: 04/22/22 23:01 Dose: 40 mg Documented by: Fluticasone Furoate (Fluticasone Furoate 200mcg 14 Puffs/Inhaler) 1 puffs INH DAILY [facility] Stop: 05/23/22 08:59 Last Admin: 04/23/22 07:39 Dose: 1 puffs Documented by: Folic Acid (Folic Acid 1 Mg Tab) 1 mg PO DAILY [facility] Stop: 05/23/22 08:59 Last Admin: 04/23/22 07:40 Dose: 1 mg Documented by: Dextrose/Sodium Chloride (D5w And Nss) 1,000 mls @ 75 mls/hr IV .[id number] [facility] Stop: 05/22/22 22:22 Last Admin: 04/22/22 22:39 Dose: 75 mls/hr Documented by: Potassium Chloride (K Pete / Wtr) 10 meq in 100 mls @ 100 mls/hr IV Q1H [facility]; Protocol Stop: 04/23/22 11:59 Last Infusion: 04/23/22 09:51 Dose: 65 mls/hr Documented by: Levothyroxine Sodium (Levothyroxine Sodium 75 Mcg Tablet) 75 mcg PO DAILYBB [facility] Stop: 05/23/22 06:29 Last Admin: 04/23/22 05:36 Dose: 75 mcg Documented by: Lorazepam (Lorazepam 0.5 Mg Tab) 0.5 mg PO DAILY PRN PRN Reason: Anxiety Stop: 05/22/22 22:22 Metoprolol Succinate (Metoprolol Succ 25mg Ext Rel Tab) 25 mg PO QAM [facility] Stop: 05/23/22 08:59 Last Admin: 04/23/22 07:40 Dose: 25 mg Documented by: Morphine Sulfate (Morphine Sulfate 2 Mg/Ml Carp) 2 mg IV Q3H PRN PRN Reason: Pain Stop: 05/06/22 22:22 Last Admin: 04/23/22 07:00 Dose: 2 mg Documented by: Nitroglycerin (Nitroglycerin Sl 0.4 Mg/Tab Tab) 0.4 mg SL UD PRN PRN Reason: Chest Pain Stop: 05/22/22 22:22 Ondansetron HCl (Ondansetron Inj 2 Mg/Ml 2 Ml Vial) 4 mg IV Q6H PRN PRN Reason: Nausea Stop: 05/22/22 22:22 Pantoprazole Sodium (Pantoprazole 40 Mg Tab) 40 mg PO BID [facility] Stop: 05/22/22 22:59 Last Admin: 04/23/22 07:40 Dose: 40 mg Documented by: Pregabalin (Pregabalin 75 Mg Cap) 75 mg PO TID [facility] Stop: 05/22/22 22:22 Last Admin: 04/23/22 07:41 Dose: 75 mg Documented by: Tizanidine HCl (Tizanidine Hcl 4 Mg Tablet) 2 mg PO Q8H PRN PRN Reason: Muscle Spasm Stop: 05/22/22 22:22 Trazodone HCl (Trazodone Hcl 100 Mg Tab) 100 mg PO HS [facility] Stop: 05/22/22 22:22 Last Admin: 04/22/22 22:50 Dose: Not Given Documented by: Umeclidinium/Vilanterol (Umeclidinium/Vilanterol 62.5/25mcg 7 Puffs/Inhaler) 1 puffs INH DAILY [facility] Stop: 05/23/22 08:59 Last Admin: 04/23/22 07:41 Dose: 1 puffs Documented by: (1) Nausea & vomiting Vomiting type: unspecified Qualified Code(s): R11.2 - Nausea with vomiting, unspecified
[2022-04-23] MEDS ORDERED: POTASSIUM CHLORIDE CRTAB 20 MEQ TABCR PO STA (08:35)
[2022-04-23] MEDS: POTASSIUM CHLORIDE / WTR 10 MEQ/100 ML PLCT IV SCH ×3 (09:44→12:52)
[2022-04-23] MEDS: D5W AND NSS 1,000 ML IV SCH (11:11)
--- NOTE | 2022-04-23 15:26 | Gastrointestinal Consultation ---
Date of Consultation April 23, 2022 Assessment & Plan (1) Nausea & vomiting: (2) Diarrhea: Suspect that the N/V/D may be side effects of the colchicine, which has been AK'ed today. She has a hx of gastroparesis which likely contributes. 1. Appreciate stopping the colchicine and following pt clinically. 2. Would reach out to ID to ask if E COli EAEC should be treated again. 3. Will see the pt in GI clinic in a month and if continued diarrhea at that time, then will arrange OP colonoscopy w biopsies. 4. OK to use Imodium prn. 5. GI will sign off. Please notify us of new/worsening GI issues. Supervising Physician Co-Signing Physician Notes Attending attestation I have seen, examined this patient, and agree with the findings and above by our mid-level provider ALIYAH Jones, with the following additions: Stool improved being more solid, not sure if persistant infection vs colchine. Can ask ID, but would treat E Coli given clinical status, with azithromycin and or fluoroquine. Also can consider sending sensitivities. History of Present Illness Reason for Consultation: N/V/Diarrhea Requesting Physician: Dr. Owens Attending Physician: Sanchez Hutchinson MD History of Present Illness Ms. Santiago is a 56 yr old female pt of Dr. Caicedo with a hx of CAD post stenting and angioplasty, CHFw EF of 35%-39%, COPD, HTN, neurofibrosis who was admitted for pericardial effusion in February and was tx with colchicine. Pt tells us that she began w diarrhea, up to 4 times a day, loose to liquid and was seen in the ED for this on 04/[address] suggested a mild geller colitis an dstool studies were (+) for E Coli and she completed a course of Cipro/Flagyl which did not improve the symptoms. Stools studies on arrival for this admission, again showed the E Coli EAEC. C-diff was (-) both times. Non contrast CTAP on arrival this admission showed slight improvement in the geller colitis. With the diarrhea, she has also had abnormal taste and aversion to foods. In the past week, if she tries to eat anything, she typically vomits. She has had some chest burning in the past week but otherwise no reflux and she has not had any abdominal pain, blood in BMs.She has had a significant weight loss, about 15 lbs. Her most recent colonoscopy was in 2019 and was endoscopically normal. A 10mm adenomatous polyp was removed and she was recommended surveillance in 2022. Most recent EGD was in 2013 for weight loss and diarrhea and it showed gastritis. Allergies Allergy/AdvReac Type Severity Reaction Status Date / Time ibuprofen Allergy Intermediate Unknown Verified 04/22/22 17:00 NSAIDS (Non-Steroidal Allergy Intermediate Unknown Verified 04/22/22 17:00 Anti-Inflamma Sulfa (Sulfonamide Allergy Intermediate HIVES Verified 04/22/22 17:00 Antibiotics) adhesive Allergy Mild BANDAIDS Verified 04/22/22 17:00 SKIN ABRASION ketorolac [From Toradol] Allergy Mild Unknown Verified 04/22/22 17:00 adhesive tape Allergy Unknown Unknown Verified 04/22/22 17:00 tramadol Allergy Unknown . Verified 04/22/22 17:00 rosuvastatin [From Crestor] AdvReac Intermediate Weakness Verified 04/22/22 17:00 prednisone AdvReac Mild Patient Verified 04/22/22 17:00 Reports Contraindication in Kidney Failure meperidine AdvReac Unknown MOOD SWINGS Verified 04/22/22 17:00 Home Medications Medication Instructions Recorded Confirmed Type albuterol sulfate 90 mcg/actuation 2 puff INHALATION Q4H PRN 03/10/22 04/22/22 History aerosol inhaler ascorbic acid (vitamin C) 500 mg 500 mg PO DAILY 03/10/22 04/22/22 History tablet (Vitamin C) aspirin 81 mg tablet,delayed 81 mg PO DAILY 03/10/22 04/22/22 History release calcium carbonate 600 mg-vitamin 1 tab PO DAILY 03/10/22 04/22/22 History D3 10 mcg (400 unit) tablet (Calcium 600 + D(3)) cholecalciferol (vitamin D3) 50 50 mcg PO DAILY 03/10/22 04/22/22 History mcg (2,000 unit) tablet (Vitamin D3) cyanocobalamin (vitamin B-12) 100 mcg IM MONTHLY 03/10/22 04/22/22 History 1,000 mcg/mL injection solution evolocumab 420 mg/3.5 mL 420 mg SUBCUT MONTHLY 03/10/22 04/22/22 History subcutaneous wearable injector (Repatha Pushtronex) fluticasone propionate 110 2 puff INHALATION BID 03/10/22 04/22/22 History mcg/actuation HFA aerosol inhaler (Flovent HFA) folic acid 1 mg tablet 1 mg PO DAILY 03/10/22 04/22/22 History ipratropium 0.5 mg-albuterol 3 mg 3 ml INHALATION QID PRN 03/10/22 04/22/22 History (2.5 mg base)/3 mL nebulization soln levothyroxine 75 mcg tablet 75 mcg PO DAILY 03/10/22 04/22/22 History (Synthroid) lorazepam 0.5 mg tablet 0.5 mg PO DAILY PRN 03/10/22 04/22/22 History metoprolol succinate 25 mg 25 mg PO QAM 03/10/22 04/22/22 History tablet,extended release 24 hr omeprazole 20 mg capsule,delayed 20 mg PO BID 03/10/22 04/22/22 History release pregabalin 75 mg capsule 75 mg PO TID 03/10/22 04/22/22 History tiotropium 2.5 mcg-olodaterol 2.5 2 puff INHALATION DAILY 03/10/22 04/22/22 History mcg/actuation mist for inhalation (Stiolto Respimat) tizanidine 4 mg tablet 2 mg PO Q8H PRN 03/10/22 04/22/22 History trazodone 100 mg tablet 100 mg PO HS 03/10/22 04/22/22 History colchicine 0.6 mg tablet (Colcrys) 0.6 mg PO BID 30 Days #60 tab 04/04/22 04/22/22 Rx Patient History Medical History Acute exacerbation of chronic obstructive pulmonary disease (COPD) SEVERE EMPHYSEMA Acute respiratory failure with hypoxia UNRULY (acute kidney injury) Anxiety CAD (coronary artery disease) Cavernous hemangioma of brain Gastroparesis Hx of bronchitis Hypokalemia CAN NOT TOLERATE PO POTASSIUM PILLS DUE TO GASTROPARESIS Myocardial infarction 2010 - CHEST PAIN -[facility] AND HAD HEART CATH WITH ONE STENT (BARE METAL) FOLLOW WITH [facility]IO Neurofibromatosis Pneumothorax AGE 24 - SURGERY TO REPAIR THE LEFT SIDE AND CHEMICAL TREATMENT ON THE RIGHT SIDE AT [facility] 2013 ONLY HAD ONE -- ADMITTED TO [facility] --- METABOLIC RELATED ---- NO MEDICATION Shortness of breath Volume overload Surgical History History of hernia repair UMBILICAL Hx of cardiac cath 2011 HEART CATH WITH ONE STENT Hx of section X2 Hx of colonoscopy Hx of vaginal surgery 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 Family History Father Lung disease Severe emphysema, pneumothorax Social History Smoking Status: Former smoker Tobacco Type: Cigarettes Age Started Using Tobacco: 11; Age Quit Using Tobacco: 53; packs per day: 1; Years Smoked: 42; Cigarettes Per Day: 5; Number of Years Since Quit: 1; Second Hand Exposure: No; Do You Dip or Chew Tobacco: No; Tobacco Cessation Education Requested by Patient: No Hx Alcohol Use: Yes Alcohol type: beer, wine and hard liquor Hx Substance Use: No Preferred Language: Serbian Communication Ability: Effective Edge Trimmer Required: No Beliefs That Will Affect Care: None marital status: Current Living Situation: Spouse How many Children do You have: 3 Other Information That Helps Us Care for You: No Feels Safe at Home: Yes Safety Concerns: Feels Safe At This Time Assistive Devices: Oxygen - Continuous Review of Systems Review of Systems: ROS: Gen: + weakness, + fatigue + weight loss; no fevers Eyes: No eye redness, or pain, no recent vision changes Resp: No SOB, no cough Cardio: No palpitations/irregular beats, no chest pain GI: See HPI, otherwise (-) : Denies pain on urination Skin: No jaundice, itching or new rashes Physical Exam Constitutional: well developed, + ill appearing, + thin and cooperative Eyes: PERRL, conjunctivae normal, anicteric sclerae Neck: trachea midline, no thyromegaly Respiratory: normal respiratory effort, lungs clear to auscultation O2 at 2L/min by NC. Cardiovascular: RRR, no murmur, no edema Gastrointestinal (Abdomen): normal bowel sounds, soft, nontender, no hepatosplenomegaly Skin: no rashes, warm and dry normal turgor and + pallor Neurologic: PERRL, EOMI, accommodation nl, no face palsy, no dysarthria awake; not confused Psychiatric: A+Ox3, euthymic affect Orientation: alert, oriented x 3 and cooperative Results & Data ([place]) Vital Signs (Past 12 Hours) Vital Signs Temp Pulse Pulse Resp BP BP Pulse Ox 04/23/22 11:38 36.9 C 74 17 137/82 100 04/23/22 08:00 96 H 04/23/22 06:29 37.1 C 78 16 150/90 H 99 Laboratory Results WBC 12.48, Hct 11.2, Hct 32, Plts 391,Na 137, K 2.8, Cl 104, CO2 26, BUN 18, Cr 0.81, glucose 105 Diagnostic Findings CTAP, non contrast 04/22/22: 1. Wall thickening with pericolonic infiltration which involves the majority of the colon. This is stable to slightly improved since CT of April 13, 2022. This represents a persistent nonspecific colitis. No free air or abscess. Moderate amount stool within the colon and rectum. 2. No bowel obstruction. 3. Right pelvic kidney. (1) Diarrhea Diarrhea type: unspecified type Qualified Code(s): R19.7 - Diarrhea, unspecified (2) Nausea & vomiting Vomiting type: unspecified Qualified Code(s): R11.2 - Nausea with vomiting, unspecified
[2022-04-23] MEDS: ONDANSETRON INJ 2 MG/ML 2 ML VIAL IV PRN (21:01)
[2022-04-23] MEDS: ENOXAPARIN INJ 40 MG/0.4 ML SYR SQ SCH (21:02)
[2022-04-23] MEDS: traZODone HCL 100 MG TAB PO SCH (21:03)
--- NOTE | 2022-04-23 23:43 | Hospitalist Progress Note ---
Date of Service April 23, 2022 Assessment & Plan (1) Nausea & vomiting: (2) Diarrhea: (3) Generalized abdominal pain: Plan: Present on admission with abdominal pain associated with N/V Maybe related to colchicine vs infectious CT abd/pelvis showed wall thickening with pericolonic infiltration which involves the majority of the colon. This is stable to slightly improved since CT of April 13, 2022. This represents a persistent nonspecific colitis.. Moderate amount stool within the colon and rectum. Stool PCR positive for enteroaggressive E coli Stool for Cdiff Completed a short course of antibiotic for 5 days (with cipro and flagyl initially, then cipro changed to Cefdinir) Will discussed with ID if pt needs to get treated again for the enteroaggressive E coli in stool Colchicine discontinued by cardio Diarrhea improved Gastro on board OK to use Imodium prn. Follow up with gastroenterology in 1 month for OP colonoscopy Electrolytes imbalance Potassium 3.2 on admission, K 2.8 today Electrolytes replaced Continue monitor BP Pericardial effusion Colchicine discontinued by cardiology due to GI symptoms ( Diarrhea/Vomiting and abdominal pain) Repeat ECHO showed small loculated anterior and right lateral pericardial effusi on with moderate organization. LV systolic function mildly reduced with EF 40-45 % Severe hypokinesis to akinesis of the basal inferior wall cardiology on board Stable Lung Nodule Last CT chest on 04/13 showed2.1 x 1.2 cm subpleural irregular density within the right upper lobe, new since chest CT of November 22, 2019. New 1.2 cm lingular nodule which is low suspicion. Will need a repeat chest CT in 6 months is recommended to exclude the possibility of a pulmonary lesion. Systolic heart failure BNP on admission 682 ECHO showed dilated left ventricle with severe global hypokinesis and estimated left ventricular ejection fraction of around 20 to 25%.Thickening of the pericardium and a small pericardial effusion consistent with chronic pericarditis. Repeat ECHO showed Moderate diffuse Left ventricular Hypokinesis with EF 35-39% Cardiology on board Continue Metoprolol 25mg daily and low dose Losartan Continue monitor BMP Anxiety Continue Lorazepam prn CAD s/p stenting Continue aspirin, metoprolol GERD- On PPI Hypothyroidism Continue Synthroid DVT prophylaxis- On Lovenox Full code Admission and Anticipated Discharge Date Admission Date: April 22, 2022 Subjective Patient was seen and evaluated for follow-up of abdominal pain associated with N/V and diarrhea Patient said her abdominal pain improved significantly She said she had a formed stool earlier today Currently she is not having any abdominal pain nausea and vomiting Tolerated clear liquid diet denies any chest pain, Palpitations, dizziness Review of Systems Review of Systems: All systems reviewed & are unremarkable except as noted in Subjective Physical Exam Physical Exam: General- No acute distress Head- atraumatic Eyes- PERRL, EOMI, ENT- oropharynx clear Neck- supple, no JVD Lungs- clear to auscultation Heart- regular rhythm; no murmur Abdomen- normal bowel sounds, soft, nontender Extremities- no calf tenderness Neuro- alert, oriented x 3; PERRL, EOMI; no facial palsy; no dysarthria Skin- warm & dry Results & Data Results & Data ([facility]) Vital Signs (Past 12 Hours) Vital Signs Temp Pulse Pulse Resp BP Pulse Ox 04/23/22 23:34 89 04/23/22 23:27 37.0 C 87 18 99/66 L 98 04/23/22 19:21 36.8 C 83 20 126/74 99 04/23/22 15:20 36.8 C 83 19 137/86 97 04/23/22 15:00 80 (1) Diarrhea Diarrhea type: unspecified type Qualified Code(s): R19.7 - Diarrhea, unspecified (2) Nausea & vomiting Vomiting type: unspecified Qualified Code(s): R11.2 - Nausea with vomiting, unspecified
[2022-04-24] MEDS: D5W AND NSS 1,000 ML IV SCH ×2 (01:24→14:53)
[2022-04-24] MEDS: CEFEPIME 2,000 MG in SYRINGE 0 ML IV SCH ×3 (05:42→18:03)
[2022-04-24] MEDS: LEVOTHYROXINE SODIUM 75 MCG TABLET PO SCH (05:44)
[2022-04-24] MEDS: tiZANidine HCL 4 MG TABLET PO PRN (07:51)
[2022-04-24] MEDS: METOPROLOL SUCC 25MG EXT REL TAB PO SCH (07:51)
[2022-04-24] MEDS: FOLIC ACID 1 MG TAB PO SCH (07:52)
[2022-04-24] MEDS: ASPIRIN 81 MG ECTAB PO SCH (07:52)
[2022-04-24] MEDS: ASCORBIC ACID 500 MG TAB PO SCH (07:52)
[2022-04-24] MEDS: FLUTICASONE FUROATE 200MCG 14 PUFFS/INHALER INH SCH (07:53)
[2022-04-24] MEDS: PANTOprazole 40 MG TAB PO SCH ×2 (07:53→20:58)
[2022-04-24] MEDS: UMECLIDINIUM/VILANTEROL 62.5/25MCG 7 PUFFS/INHALER INH SCH (07:53)
[2022-04-24] MEDS: ACETAMINOPHEN 325 MG TAB PO PRN (07:56)
[2022-04-24] MEDS: PREGABALIN 75 MG CAP PO SCH ×3 (07:56→20:58)
[2022-04-24] MEDS: MoRPHine SULFATE 2 MG/ML CARP IV PRN ×2 (08:56→20:58)
[2022-04-24 10:21] LABS: BUN Creatinine Ratio 11.2 (10-20); Calcium 7.3 mg/dl (8.5-10.1); Creatinine Clr Calc Pharmacy 56.1 ml/min; Est GFR (African American) 83.4 ml/min; Est GFR (Non-African American) 71.9 ml/min; Potassium 3.7 mmol/L (3.5-5.1)
[2022-04-24 10:22] LABS: Hematocrit (blood only) 31.5 % (37-47); Hemoglobin 10.5 g/dL (12.0-16.0); Mean Corpuscular Hgb Conc 33.3 g/dL (32-36); Mean Corpuscular Volume 92.9 fL (80-100); Mean Platelet Volume 10.5 fL (7.4-10.4); Platelet Count 314 K/uL (130-400); RDW Coefficient of Variation 15.9 % (11.5-14.5); RDW Standard Deviation 53.8 fL (36.4-46.3); Red Blood Count 3.39 M/uL (4.2-5.4)
--- NOTE | 2022-04-24 13:02 | Electrocardiogram Report ---
Test Reason : Blood Pressure : / mmHG Vent. Rate : 111 BPM Atrial Rate : 111 BPM P-R Int : 136 ms QRS Dur : 096 ms QT Int : 346 ms P-R-T Axes : 085 077 080 degrees QTc Int : 470 ms Sinus tachycardia Biatrial enlargement Incomplete right bundle branch block Diffuse Nonspecific ST abnormality Abnormal ECG When compared with ECG of 13-APR-2022 03:39, Premature ventricular complexes are no longer Present Incomplete right bundle branch block is now Present Confirmed by Raul Godfrey ([id number]) on 04/24/2022 1:02:19 PM Referred By: REFERRED SELF Confirmed By:Raul Godfrey
--- NOTE | 2022-04-24 13:13 | Electrocardiogram Report ---
Test Reason : Blood Pressure : / mmHG Vent. Rate : 115 BPM Atrial Rate : 115 BPM P-R Int : 136 ms QRS Dur : 094 ms QT Int : 440 ms P-R-T Axes : 081 079 090 degrees QTc Int : 608 ms Sinus tachycardia Incomplete right bundle branch block Diffuse Nonspecific ST abnormality Prolonged QT Abnormal ECG When compared with ECG of 22-APR-2022 17:10, No significant change was found Confirmed by Raul Godfrey ([id number]) on 04/24/2022 1:13:08 PM Referred By: REFERRED SELF Confirmed By:Raul Godfrey
--- NOTE | 2022-04-24 13:52 | Electrocardiogram Report ---
Test Reason : Blood Pressure : / mmHG Vent. Rate : 091 BPM Atrial Rate : 091 BPM P-R Int : 138 ms QRS Dur : 090 ms QT Int : 360 ms P-R-T Axes : 083 077 066 degrees QTc Int : 442 ms Normal sinus rhythm Normal ECG When compared with ECG of 22-APR-2022 19:40, Nonspecific ST abnormality no longer present Incomplete right bundle branch block is no longer Present Confirmed by Raul Godfrey ([id number]) on 04/24/2022 1:51:28 PM Referred By: REFERRED SELF Confirmed By:Raul Godfrey
[2022-04-24] MEDS: traZODone HCL 100 MG TAB PO SCH (20:55)
[2022-04-24] MEDS: ENOXAPARIN INJ 40 MG/0.4 ML SYR SQ SCH (20:57)
--- NOTE | 2022-04-24 22:13 | Hospitalist Progress Note ---
Date of Service April 24, 2022 Assessment & Plan (1) Nausea & vomiting: (2) Diarrhea: (3) Generalized abdominal pain: Plan: Present on admission with abdominal pain associated with N/V Maybe related to colchicine vs infectious CT abd/pelvis showed wall thickening with pericolonic infiltration which involves the majority of the colon. This is stable to slightly improved since CT of April 13, 2022. This represents a persistent nonspecific colitis.. Moderate amount stool within the colon and rectum. Stool PCR positive for enteroaggressive E coli Stool for Cdiff Completed a short course of antibiotic for 5 days (with cipro and flagyl initially, then cipro changed to Cefdinir) Will discussed with ID if pt needs to get treated again for the enteroaggressive E coli in stool Colchicine discontinued by cardio Diarrhea improved Gastro on board OK to use Imodium prn. Follow up with gastroenterology in 1 month for OP colonoscopy Bacteremia Blood cx grew gram negative bacilli Starting on IV Cefepime ID consult Will repeat blood cx Continue monitor Electrolytes imbalance Potassium 3.2 on admission, K 3.7 today Continue monitor BP Pericardial effusion Colchicine discontinued by cardiology due to GI symptoms ( Diarrhea/Vomiting and abdominal pain) Repeat ECHO showed small loculated anterior and right lateral pericardial effusion with moderate organization. LV systolic function mildly reduced with EF 40-45 % Severe hypokinesis to akinesis of the basal inferior wall cardiology on board Stable Lung Nodule Last CT chest on 04/13 showed2.1 x 1.2 cm subpleural irregular density within the right upper lobe, new since chest CT of November 22, 2019. New 1.2 cm lingular nodule which is low suspicion. Will need a repeat chest CT in 6 months is recommended to exclude the possibility of a pulmonary lesion. Systolic heart failure BNP on admission 682 ECHO showed dilated left ventricle with severe global hypokinesis and estimated left ventricular ejection fraction of around 20 to 25%.Thickening of the pericardium and a small pericardial effusion consistent with chronic pericarditis. Repeat ECHO showed Moderate diffuse Left ventricular Hypokinesis with EF 35-39% Cardiology on board Continue Metoprolol 25mg daily and low dose Losartan Continue monitor BMP Anxiety Continue Lorazepam prn CAD s/p stenting Continue aspirin, metoprolol GERD- On PPI Hypothyroidism Continue Synthroid DVT prophylaxis- On Lovenox Full code Admission and Anticipated Discharge Date Admission Date: April 24, 2022 Subjective Patient was seen and evaluated for follow-up of abdominal pain associated with N/V and diarrhea Lying in bed with no acute distress watching TV Pt said that she is feeling much better She said that she tolerated her clear liquid diet denies any chest pain, Palpitations, dizziness Review of Systems Review of Systems: All systems reviewed & are unremarkable except as noted in Subjective Physical Exam Physical Exam: General- No acute distress Head- atraumatic Eyes- PERRL, EOMI, ENT- oropharynx clear Neck- supple, no JVD Lungs- clear to auscultation Heart- regular rhythm; no murmur Abdomen- normal bowel sounds, soft, nontender Extremities- no calf tenderness Neuro- alert, oriented x 3; PERRL, EOMI; no facial palsy; no dysarthria Skin- warm & dry Results & Data Results & Data ([facility]) Vital Signs (Past 12 Hours) Vital Signs Temp Pulse Pulse Resp BP Pulse Ox 04/24/22 18:49 36.8 C 88 18 93/62 L 99 04/24/22 16:17 82 04/24/22 15:11 36.7 C 84 18 88/61 L 100 04/24/22 11:42 89/58 L 04/24/22 11:39 36.4 C 71 18 73/52 L 100 (1) Diarrhea Diarrhea type: unspecified type Qualified Code(s): R19.7 - Diarrhea, unspecified (2) Nausea & vomiting Vomiting type: unspecified Qualified Code(s): R11.2 - Nausea with vomiting, unspecified
[2022-04-25] MEDS: D5W AND NSS 1,000 ML IV SCH ×2 (04:13→18:29)
[2022-04-25] MEDS: CEFEPIME 2,000 MG in SYRINGE 0 ML IV SCH ×3 (06:09→20:36)
[2022-04-25] MEDS: LEVOTHYROXINE SODIUM 75 MCG TABLET PO SCH (06:09)
[2022-04-25] MEDS: MoRPHine SULFATE 2 MG/ML CARP IV PRN ×2 (08:35→20:34)
[2022-04-25] MEDS: ASPIRIN 81 MG ECTAB PO SCH (08:37)
[2022-04-25] MEDS: PANTOprazole 40 MG TAB PO SCH ×2 (08:37→20:36)
[2022-04-25] MEDS: METOPROLOL SUCC 25MG EXT REL TAB PO SCH (08:37)
[2022-04-25] MEDS: PREGABALIN 75 MG CAP PO SCH ×3 (08:37→20:35)
[2022-04-25] MEDS: tiZANidine HCL 4 MG TABLET PO PRN (08:37)
[2022-04-25] MEDS: FOLIC ACID 1 MG TAB PO SCH (08:38)
[2022-04-25] MEDS: ASCORBIC ACID 500 MG TAB PO SCH (08:38)
[2022-04-25] MEDS: UMECLIDINIUM/VILANTEROL 62.5/25MCG 7 PUFFS/INHALER INH SCH (08:39)
[2022-04-25] MEDS: FLUTICASONE FUROATE 200MCG 14 PUFFS/INHALER INH SCH (08:39)
[2022-04-25 09:47] LABS: Hemoglobin 12.6 g/dL (12.0-16.0); Mean Corpuscular Hemoglobin 30.7 pg (25-34); Mean Corpuscular Hgb Conc 33.2 g/dL (32-36); Mean Corpuscular Volume 92.7 fL (80-100); Mean Platelet Volume 10.9 fL (7.4-10.4); Platelet Count 363 K/uL (130-400); RDW Standard Deviation 53.5 fL (36.4-46.3); White Blood Count 9.12 K/uL (4.8-10.8)
[2022-04-25 10:07] LABS: BUN Creatinine Ratio 12.8 (10-20); Calcium 7.8 mg/dl (8.5-10.1); Creatinine Clr Calc Pharmacy 68.3 ml/min; Est GFR (African American) 97.8 ml/min; Est GFR (Non-African American) 84.4 ml/min
[2022-04-25] MEDS: LORazepam 0.5 MG TAB PO PRN ×2 (12:51→20:35)
[2022-04-25] MEDS: traZODone HCL 100 MG TAB PO SCH (20:24)
[2022-04-25] MEDS: ENOXAPARIN INJ 40 MG/0.4 ML SYR SQ SCH (20:35)
--- NOTE | 2022-04-25 23:57 | Hospitalist Progress Note ---
Date of Service April 25, 2022 Assessment & Plan (1) Nausea & vomiting: (2) Diarrhea: (3) Generalized abdominal pain: Plan: Present on admission with abdominal pain associated with N/V Maybe related to colchicine vs infectious CT abd/pelvis showed wall thickening with pericolonic infiltration which involves the majority of the colon. This is stable to slightly improved since CT of April 13, 2022. This represents a persistent nonspecific colitis.. Moderate amount stool within the colon and rectum. Stool PCR positive for enteroaggressive E coli Stool for Cdiff Completed a short course of antibiotic for 5 days (with cipro and flagyl initially, then cipro changed to Cefdinir) Case discussed with ID - No treatment needed for the enteroaggressive E coli as per ID. Colchicine discontinued by cardio Diarrhea improved Gastro on board OK to use Imodium prn. Follow up with gastroenterology in 1 month for OP colonoscopy Bacteremia Blood cx grew gram negative bacilli Possible due to contamination ID on board Continue on IV Cefepime repeat blood cx pending If cx negative, will consider PO Augmentin Continue monitor Electrolytes imbalance Potassium 3.2 on admission, K 3 today Will replace potassium Continue monitor BP Pericardial effusion Colchicine discontinued by cardiology due to GI symptoms ( Diarrhea/Vomiting and abdominal pain) Repeat ECHO showed small loculated anterior and right lateral pericardial effusion with moderate organization. LV systolic function mildly reduced with EF 40-45 % Severe hypokinesis to akinesis of the basal inferior wall cardiology on board Stable Lung Nodule Last CT chest on 04/13 showed2.1 x 1.2 cm subpleural irregular density within the right upper lobe, new since chest CT of November 22, 2019. New 1.2 cm lingular nodule which is low suspicion. Will need a repeat chest CT in 6 months is recommended to exclude the possibility of a pulmonary lesion. Systolic heart failure BNP on admission 682 ECHO showed dilated left ventricle with severe global hypokinesis and estimated left ventricular ejection fraction of around 20 to 25%.Thickening of the pericardium and a small pericardial effusion consistent with chronic pericarditis. Repeat ECHO showed Moderate diffuse Left ventricular Hypokinesis with EF 35-39% Cardiology on board Continue Metoprolol 25mg daily and low dose Losartan Continue monitor BMP Anxiety Continue Lorazepam prn CAD s/p stenting Continue aspirin, metoprolol GERD- On PPI Hypothyroidism Continue Synthroid DVT prophylaxis- On Lovenox Full code Admission and Anticipated Discharge Date Admission Date: April 24, 2022 Subjective Patient was seen and evaluated for follow-up of abdominal pain associated with N/V and diarrhea Lying in bed with no acute distress She said that this morning after eating breakfast that she had abdominal tenderness denies any chest pain, Palpitations, dizziness Review of Systems Review of Systems: All systems reviewed & are unremarkable except as noted in Subjective Physical Exam Physical Exam: General- No acute distress Head- atraumatic Eyes- PERRL, EOMI, ENT- oropharynx clear Neck- supple, no JVD Lungs- clear to auscultation Heart- regular rhythm; no murmur Abdomen- normal bowel sounds, soft, +tender with deep palpation Extremities- no calf tenderness Neuro- alert, oriented x 3; PERRL, EOMI; no facial palsy; no dysarthria Skin- warm & dry Results & Data Results & Data ([facility]) Vital Signs (Past 12 Hours) Vital Signs Temp Pulse Pulse Resp BP Pulse Ox 04/25/22 23:26 36.8 C 86 20 92/61 L 97 04/25/22 20:33 84 101/64 04/25/22 19:40 36.8 C 96 H 18 82/54 L 100 04/25/22 16:00 36.8 C 77 18 86/60 L 99 04/25/22 15:39 85 (1) Diarrhea Diarrhea type: unspecified type Qualified Code(s): R19.7 - Diarrhea, unspecified (2) Nausea & vomiting Vomiting type: unspecified Qualified Code(s): R11.2 - Nausea with vomiting, unspecified
[2022-04-26] MEDS: LEVOTHYROXINE SODIUM 75 MCG TABLET PO SCH (06:08)
[2022-04-26] MEDS: CEFEPIME 2,000 MG in SYRINGE 0 ML IV SCH ×3 (06:08→21:37)
[2022-04-26] MEDS: ASPIRIN 81 MG ECTAB PO SCH (07:44)
[2022-04-26] MEDS: PANTOprazole 40 MG TAB PO SCH ×2 (07:44→21:38)
[2022-04-26] MEDS: UMECLIDINIUM/VILANTEROL 62.5/25MCG 7 PUFFS/INHALER INH SCH (07:44)
[2022-04-26] MEDS: ASCORBIC ACID 500 MG TAB PO SCH (07:44)
[2022-04-26] MEDS: FLUTICASONE FUROATE 200MCG 14 PUFFS/INHALER INH SCH (07:44)
[2022-04-26] MEDS: FOLIC ACID 1 MG TAB PO SCH (07:44)
[2022-04-26] MEDS: MoRPHine SULFATE 2 MG/ML CARP IV PRN ×2 (07:49→21:34)
[2022-04-26] MEDS: PREGABALIN 75 MG CAP PO SCH ×3 (07:49→21:34)
[2022-04-26] MEDS: METOPROLOL SUCC 25MG EXT REL TAB PO SCH (07:53)
[2022-04-26 08:24] LABS: Calcium 7.4 mg/dl (8.5-10.1); Magnesium 1.4 mg/dl (1.7-2.4); Potassium 3.2 mmol/L (3.5-5.1)
[2022-04-26 08:29] LABS: BUN Creatinine Ratio 11.5 (10-20); Creatinine Clr Calc Pharmacy 68.1 ml/min; Est GFR (African American) 97.8 ml/min; Est GFR (Non-African American) 84.4 ml/min
[2022-04-26] MEDS ORDERED: POTASSIUM CHLORIDE CRTAB 20 MEQ TABCR PO STA (10:48)
[2022-04-26] MEDS: MAGNESIUM SULFATE / D5W 1 GM/100 ML BAG IV SCH (11:28)
[2022-04-26] MEDS: tiZANidine HCL 4 MG TABLET PO PRN (11:29)
[2022-04-26] MEDS: LORazepam 0.5 MG TAB PO PRN (13:56)
[2022-04-26] MEDS ORDERED: SODIUM CHLORIDE 0.9% 500 ML IV SCH (15:15)
[2022-04-26] MEDS: SODIUM CHLORIDE 0.9% 500 ML IV SCH (15:34)
--- NOTE | 2022-04-26 19:23 | Hospitalist Progress Note ---
Date of Service April 26, 2022 Assessment & Plan (1) Nausea & vomiting: (2) Diarrhea: (3) Generalized abdominal pain: Plan: Present on admission with abdominal pain associated with N/V Maybe related to colchicine vs infectious CT abd/pelvis showed wall thickening with pericolonic infiltration which involves the majority of the colon. This is stable to slightly improved since CT of April 13, 2022. This represents a persistent nonspecific colitis.. Moderate amount stool within the colon and rectum. Stool PCR positive for enteroaggressive E coli Stool for Cdiff Completed a short course of antibiotic for 5 days (with cipro and flagyl initially, then cipro changed to Cefdinir) Case discussed with ID - No treatment needed for the enteroaggressive E coli as per ID. Colchicine discontinued by cardio Diarrhea improved Gastro on board OK to use Imodium prn. Follow up with gastroenterology in 1 month for OP colonoscopy Bacteremia Blood cx grew gram negative bacilli Possible due to contamination ID on board Continue on IV Cefepime repeat blood cx no growth If cx negative, will considerto transition PO Augmentin Continue monitor Hypotension BP 88/55 currently Asymptomatic Will give gently IVF about 500cc total Will hold metoprolol Continue monitor BP Electrolytes imbalance Potassium 3.2 on admission, K 3.2 today K replaced Continue monitor BP Pericardial effusion Colchicine discontinued by cardiology due to GI symptoms ( Diarrhea/Vomiting and abdominal pain) Repeat ECHO showed small loculated anterior and right lateral pericardial effusion with moderate organization. LV systolic function mildly reduced with EF 40-45 % Severe hypokinesis to akinesis of the basal inferior wall cardiology on board Stable Lung Nodule Last CT chest on 04/13 showed2.1 x 1.2 cm subpleural irregular density within the right upper lobe, new since chest CT of November 22, 2019. New 1.2 cm lingular nodule which is low suspicion. Will need a repeat chest CT in 6 months is recommended to exclude the possib ility of a pulmonary lesion. Systolic heart failure BNP on admission 682 ECHO showed dilated left ventricle with severe global hypokinesis and estimated left ventricular ejection fraction of around 20 to 25%.Thickening of the pericardium and a small pericardial effusion consistent with chronic pericarditis. Repeat ECHO showed Moderate diffuse Left ventricular Hypokinesis with EF 35-39% Cardiology on board Continue Metoprolol 25mg daily and low dose Losartan Continue monitor BMP Anxiety Continue Lorazepam prn CAD s/p stenting Continue aspirin, metoprolol GERD- On PPI Hypothyroidism Continue Synthroid DVT prophylaxis- On Lovenox Full code Admission and Anticipated Discharge Date Admission Date: April 24, 2022 Subjective Patient was seen and evaluated for follow-up of abdominal pain Sitting on the commode with no acute distress She said that she feels much better Her BP is running low, but denies any symptoms denies any chest pain, Palpitations, dizziness Review of Systems Review of Systems: All systems reviewed & are unremarkable except as noted in Subjective Physical Exam Physical Exam: General- No acute distress Head- atraumatic Eyes- PERRL, EOMI, ENT- oropharynx clear Neck- supple, no JVD Lungs- clear to auscultation Heart- regular rhythm; no murmur Abdomen- normal bowel sounds, soft, +tender with deep palpation Extremities- no calf tenderness Neuro- alert, oriented x 3; PERRL, EOMI; no facial palsy; no dysarthria Skin- warm & dry Results & Data Results & Data ([facility]) Vital Signs (Past 12 Hours) Vital Signs Temp Pulse Pulse Resp BP Pulse Ox 04/26/22 16:57 88/55 L 04/26/22 15:07 36.3 C L 79 73/40 L 04/26/22 11:47 36.5 C 82 20 87/54 L 99 04/26/22 08:22 36.8 C 88 20 98/66 L 98 04/26/22 08:00 81 04/26/22 07:54 99 H 113/71 (1) Diarrhea Diarrhea type: unspecified type Qualified Code(s): R19.7 - Diarrhea, unspecified (2) Nausea & vomiting Vomiting type: unspecified Qualified Code(s): R11.2 - Nausea with vomiting, unspecified
[2022-04-26] MEDS: traZODone HCL 100 MG TAB PO SCH (20:23)
[2022-04-26] MEDS: ENOXAPARIN INJ 40 MG/0.4 ML SYR SQ SCH (21:37)
[2022-04-27] MEDS: SODIUM CHLORIDE 0.9% 500 ML IV SCH ×3 (02:54→22:06)
[2022-04-27] MEDS: LEVOTHYROXINE SODIUM 75 MCG TABLET PO SCH (05:26)
[2022-04-27] MEDS: CEFEPIME 2,000 MG in SYRINGE 0 ML IV SCH ×2 (05:27→14:35)
[2022-04-27] MEDS: MoRPHine SULFATE 2 MG/ML CARP IV PRN ×3 (06:43→20:29)
[2022-04-27 07:22] LABS: Hematocrit (blood only) 30.1 % (37-47); Hemoglobin 10.3 g/dL (12.0-16.0); Mean Corpuscular Hemoglobin 31.8 pg (25-34); Mean Corpuscular Hgb Conc 34.2 g/dL (32-36); Mean Corpuscular Volume 92.9 fL (80-100); Mean Platelet Volume 10.6 fL (7.4-10.4); Platelet Count 314 K/uL (130-400); RDW Coefficient of Variation 16.4 % (11.5-14.5); RDW Standard Deviation 55.7 fL (36.4-46.3); Red Blood Count 3.24 M/uL (4.2-5.4); White Blood Count 9.83 K/uL (4.8-10.8)
[2022-04-27 07:39] LABS: BUN Creatinine Ratio 14.1 (10-20); Calcium 7.8 mg/dl (8.5-10.1); Creatinine Clr Calc Pharmacy 68.1 ml/min; Est GFR (African American) 97.8 ml/min; Est GFR (Non-African American) 84.4 ml/min; Potassium 3.6 mmol/L (3.5-5.1)
[2022-04-27] MEDS: FOLIC ACID 1 MG TAB PO SCH (08:56)
[2022-04-27] MEDS: PREGABALIN 75 MG CAP PO SCH ×3 (08:56→21:59)
[2022-04-27] MEDS: ASCORBIC ACID 500 MG TAB PO SCH (08:56)
[2022-04-27] MEDS: FLUTICASONE FUROATE 200MCG 14 PUFFS/INHALER INH SCH (08:57)
[2022-04-27] MEDS: PANTOprazole 40 MG TAB PO SCH ×2 (08:57→21:59)
[2022-04-27] MEDS: ASPIRIN 81 MG ECTAB PO SCH (08:57)
[2022-04-27] MEDS: UMECLIDINIUM/VILANTEROL 62.5/25MCG 7 PUFFS/INHALER INH SCH (08:57)
--- NOTE | 2022-04-27 20:59 | Hospitalist Progress Note ---
Date of Service April 27, 2022 Assessment & Plan (1) Nausea & vomiting: (2) Diarrhea: (3) Generalized abdominal pain: Plan: Present on admission with abdominal pain associated with N/V Maybe related to colchicine vs infectious CT abd/pelvis showed wall thickening with pericolonic infiltration which involves the majority of the colon. This is stable to slightly improved since CT of April 13, 2022. This represents a persistent nonspecific colitis.. Moderate amount stool within the colon and rectum. Stool PCR positive for enteroaggressive E coli Stool for Cdiff Completed a short course of antibiotic for 5 days (with cipro and flagyl initially, then cipro changed to Cefdinir) Case discussed with ID - No treatment needed for the enteroaggressive E coli as per ID. Colchicine discontinued by cardio Diarrhea improved Gastro on board OK to use Imodium prn. Follow up with gastroenterology in 1 month for OP colonoscopy Resolved Bacteremia Blood cx grew gram negative bacilli Possible due to contamination ID on board Continue on IV Cefepime repeat blood cx no growth If cx negative, will transition PO Augmentin and doxycycline through 05/02 Continue monitor Hypotension BP 90/63 currently Asymptomatic Received gentle IVF Continue to hold metoprolol Continue monitor BP Electrolytes imbalance Potassium 3.2 on admission, K 3.6 today Continue monitor BP Pericardial effusion Colchicine discontinued by cardiology due to GI symptoms ( Diarrhea/Vomiting and abdominal pain) Repeat ECHO showed small loculated anterior and right lateral pericardial effusion with moderate organization. LV systolic function mildly reduced with EF 40-45 % Severe hypokinesis to akinesis of the basal inferior wall cardiology on board Stable Lung Nodule Last CT chest on 04/13 showed2.1 x 1.2 cm subpleural irregular density within the right upper lobe, new since chest CT of November 22, 2019. New 1.2 cm lingular nodule which is low suspicion. Will need a repeat chest CT in 6 months is recommended to exclude the possibility of a pulmonary lesion. Systolic heart failure BNP on admission 682 ECHO showed dilated left ventricle with severe global hypokinesis and estimated left ventricular ejection fraction of around 20 to 25%.Thickening of the pericardium and a small pericardial effusion consistent with chronic pericarditis. Repeat ECHO showed Moderate diffuse Left ventricular Hypokinesis with EF 35-39% Cardiology on board Continue Metoprolol 25mg daily and low dose Losartan Continue monitor BMP Anxiety Continue Lorazepam prn CAD s/p stenting Continue aspirin, metoprolol GERD- On PPI Hypothyroidism Continue Synthroid DVT prophylaxis- On Lovenox Full code Admission and Anticipated Discharge Date Admission Date: April 24, 2022 Subjective Patient was seen and evaluated for follow-up of abdominal pain and bacteremia Lying in bed with no acute distress denies any chest pain, Palpitations, dizziness Review of Systems Review of Systems: All systems reviewed & are unremarkable except as noted in Subjective Physical Exam Physical Exam: General- No acute distress Head- atraumatic Eyes- PERRL, EOMI, ENT- oropharynx clear Neck- supple, no JVD Lungs- clear to auscultation Heart- regular rhythm; no murmur Abdomen- normal bowel sounds, soft, +tender with deep palpation Extremities- no calf tenderness Neuro- alert, oriented x 3; PERRL, EOMI; no facial palsy; no dysarthria Skin- warm & dry Results & Data Results & Data ([facility]) Vital Signs (Past 12 Hours) Vital Signs Temp Pulse Pulse Resp BP Pulse Ox 04/27/22 18:43 37.1 C 87 20 90/63 L 98 04/27/22 16:24 90 04/27/22 15:22 37.1 C 95 H 20 107/70 94 04/27/22 11:41 36.9 C 94 H 20 96/64 L 97 (1) Nausea & vomiting Vomiting type: unspecified Qualified Code(s): R11.2 - Nausea with vomiting, unspecified (2) Diarrhea Diarrhea type: unspecified type Qualified Code(s): R19.7 - Diarrhea, unspecified
[2022-04-27] MEDS: traZODone HCL 100 MG TAB PO SCH (21:55)
[2022-04-27] MEDS: ENOXAPARIN INJ 40 MG/0.4 ML SYR SQ SCH (22:00)
[2022-04-28] MEDS: LEVOTHYROXINE SODIUM 75 MCG TABLET PO SCH (05:59)
[2022-04-28] MEDS: MoRPHine SULFATE 2 MG/ML CARP IV PRN ×5 (06:03→22:28)
[2022-04-28 07:58] LABS: Creatinine Clr Calc Pharmacy 88.2 ml/min; Est GFR (African American) 117.3 ml/min; Est GFR (Non-African American) 101.2 ml/min; Potassium 3.5 mmol/L (3.5-5.1)
[2022-04-28] MEDS: SODIUM CHLORIDE 0.9% 500 ML IV SCH (08:25)
[2022-04-28] MEDS ORDERED: DOXYCYCLINE HYCLATE 100 MG CAP PO SCH (09:00)
[2022-04-28] MEDS: FLUTICASONE FUROATE 200MCG 14 PUFFS/INHALER INH SCH (09:22)
[2022-04-28] MEDS: UMECLIDINIUM/VILANTEROL 62.5/25MCG 7 PUFFS/INHALER INH SCH (09:22)
[2022-04-28] MEDS: ASPIRIN 81 MG ECTAB PO SCH (09:23)
[2022-04-28] MEDS: FOLIC ACID 1 MG TAB PO SCH (09:23)
[2022-04-28] MEDS: ASCORBIC ACID 500 MG TAB PO SCH (09:23)
[2022-04-28] MEDS: AMOXICILLIN/CLAVULANATE 875 MG TAB PO SCH ×2 (09:23→17:25)
[2022-04-28] MEDS: PANTOprazole 40 MG TAB PO SCH ×2 (09:23→20:18)
[2022-04-28] MEDS: PREGABALIN 75 MG CAP PO SCH ×3 (09:27→20:18)
[2022-04-28] MEDS: ONDANSETRON INJ 2 MG/ML 2 ML VIAL IV PRN (09:33)
[2022-04-28] MEDS: METOPROLOL SUCC 25MG EXT REL TAB PO SCH (09:56)
[2022-04-28] MEDS: traZODone HCL 100 MG TAB PO SCH (20:11)
[2022-04-28] MEDS: ENOXAPARIN INJ 40 MG/0.4 ML SYR SQ SCH (20:18)
--- NOTE | 2022-04-28 22:14 | Hospitalist Progress Note ---
Date of Service April 28, 2022 Assessment & Plan (1) Nausea & vomiting: (2) Diarrhea: (3) Generalized abdominal pain: Plan: Present on admission with abdominal pain associated with N/V Maybe related to colchicine vs infectious CT abd/pelvis showed wall thickening with pericolonic infiltration which involves the majority of the colon. This is stable to slightly improved since CT of April 13, 2022. This represents a persistent nonspecific colitis.. Moderate amount stool within the colon and rectum. Stool PCR positive for enteroaggressive E coli Stool for Cdiff Completed a short course of antibiotic for 5 days (with cipro and flagyl initially, then cipro changed to Cefdinir) Case discussed with ID - No treatment needed for the enteroaggressive E coli as per ID. Colchicine discontinued by cardio Diarrhea improved Gastro on board OK to use Imodium prn. Follow up with gastroenterology in 1 month for OP colonoscopy Resolved Bacteremia Blood cx grew gram negative bacilli Possible due to contamination called microbiology to ask about the sensitivity recycling technician said that they cannot identify the organism. seem to be contamination since 1 bottle out 2 set positive Specimen was sent to [facility] to identify repeat blood cx no growth ID on board IV Cefepime discontinued If cx negative, will transition PO Augmentin and doxycycline through 05/02 Case disccussed with ID Dr. Peguero that recommended to continue the Augmentin and discontinue the doxy since pt cannot tolerate it due to GI side effects Continue monitor Hypotension BP 90/63 currently Asymptomatic Received gentle IVF Continue to hold metoprolol Continue monitor BP Electrolytes imbalance Potassium 3.2 on admission, K 3.5 today Continue monitor BP Pericardial effusion Colchicine discontinued by cardiology due to GI symptoms ( Diarrhea/Vomiting and abdominal pain) Repeat ECHO showed small loculated anterior and right lateral pericardial effusion with moderate organization. LV systolic function mildly reduced with EF 40-45 % Severe hypokinesis to akinesis of the basal inferior wall cardiology on board Stable Lung Nodule Last CT chest on 04/13 showed2.1 x 1.2 cm subpleural irregular density within the right upper lobe, new since chest CT of November 22, 2019. New 1.2 cm lingular nodule which is low suspicion. Will need a repeat chest CT in 6 months is recommended to exclude the possibility of a pulmonary lesion. Systolic heart failure BNP on admission 682 ECHO showed dilated left ventricle with severe global hypokinesis and estimated left ventricular ejection fraction of around 20 to 25%.Thickening of the pericardium and a small pericardial effusion consistent with chronic pericarditis. Repeat ECHO showed Moderate diffuse Left ventricular Hypokinesis with EF 35-39% Cardiology on board Continue Metoprolol 25mg daily and low dose Losartan Continue monitor BMP Anxiety Continue Lorazepam prn CAD s/p stenting Continue aspirin, metoprolol GERD- On PPI Hypothyroidism Continue Synthroid DVT prophylaxis- On Lovenox Full code Disposition Will discharge home with HH in am Admission and Anticipated Discharge Date Admission Date: April 24, 2022 Subjective Patient was seen and evaluated for follow-up of abdominal pain and bacteremia Lying in bed with no acute distress Pt said tht she does not feel good today She said that she cannot tolerate the doxycycline due to the GI side effect denies any chest pain, Palpitations, dizziness Review of Systems Review of Systems: All systems reviewed & are unremarkable except as noted in Subjective Physical Exam Physical Exam: General- No acute distress Head- atraumatic Eyes- PERRL, EOMI, ENT- oropharynx clear Neck- supple, no JVD Lungs- clear to auscultation Heart- regular rhythm; no murmur Abdomen- normal bowel sounds, soft, +tender with deep palpation Extremities- no calf tenderness Neuro- alert, oriented x 3; PERRL, EOMI; no facial palsy; no dysarthria Skin- warm & dry Results & Data Results & Data ([facility]) Vital Signs (Past 12 Hours) Vital Signs Temp Pulse Pulse Resp BP Pulse Ox 04/28/22 19:00 37.2 C 82 18 103/60 98 04/28/22 15:57 81 04/28/22 15:00 36.9 C 76 18 96/63 L 98 04/28/22 11:18 36.8 C 89 20 106/72 98 (1) Nausea & vomiting Vomiting type: unspecified Qualified Code(s): R11.2 - Nausea with vomiting, unspecified (2) Diarrhea Diarrhea type: unspecified type Qualified Code(s): R19.7 - Diarrhea, unspecified
[2022-04-29] MEDS: MoRPHine SULFATE 2 MG/ML CARP IV PRN ×6 (04:44→23:03)
[2022-04-29] MEDS: LEVOTHYROXINE SODIUM 75 MCG TABLET PO SCH (05:58)
[2022-04-29 07:57] LABS: BUN Creatinine Ratio 10.8 (10-20); Calcium 8.2 mg/dl (8.5-10.1); Creatinine Clr Calc Pharmacy 81.4 ml/min; Est GFR (African American) 114.2 ml/min; Est GFR (Non-African American) 98.6 ml/min; Potassium 3.7 mmol/L (3.5-5.1)
[2022-04-29] MEDS: UMECLIDINIUM/VILANTEROL 62.5/25MCG 7 PUFFS/INHALER INH SCH (08:59)
[2022-04-29] MEDS: PANTOprazole 40 MG TAB PO SCH ×2 (08:59→20:03)
[2022-04-29] MEDS: PREGABALIN 75 MG CAP PO SCH ×3 (08:59→20:02)
[2022-04-29] MEDS: FLUTICASONE FUROATE 200MCG 14 PUFFS/INHALER INH SCH (08:59)
[2022-04-29] MEDS: ASPIRIN 81 MG ECTAB PO SCH (09:00)
[2022-04-29] MEDS: ASCORBIC ACID 500 MG TAB PO SCH (09:00)
[2022-04-29] MEDS: AMOXICILLIN/CLAVULANATE 875 MG TAB PO SCH ×2 (09:00→16:33)
[2022-04-29] MEDS: FOLIC ACID 1 MG TAB PO SCH (09:00)
[2022-04-29] MEDS: METOPROLOL SUCC 25MG EXT REL TAB PO SCH (09:01)
[2022-04-29] MEDS ORDERED: OPTIRAY 320 100ml IV ONE (16:06)
--- NOTE | 2022-04-29 16:36 | CT Scan Report ---
ABDOMEN AND PELVIS CT WITH IV CONTRAST CT DOSE: 275.93 mGycm HISTORY: Chronic generalized abdominal pain Ongoing abdominal pain TECHNIQUE: Multiaxial CT images of the abdomen and pelvis were performed following the IV administrat ion of 93 cc of Optiray, A dose lowering technique was utilized adhering to the principles of ALARA. COMPARISON STUDY: 04/22/2022 FINDINGS: Trace pericardial with small left pleural effusions. Pulmonary emphysema with bronchitis. M ildly motion degraded exam. No pneumatosis or pneumoperitoneum. Unremarkable spleen, atrophic pancrea s, adrenal glands, mildly distended gallbladder and liver. There is patency of the hepatic and portal veins. Normal appearing left kidney. Right-sided pelvic kidney. Urinary bladder wall thickening with partial distention perivesicular stranding. Unremarkable uterus. Atherosclerosis of aorta without an eurysm. Multifocal least mild to moderate stenosis of the iliac arteries. No lymphadenopathy. Mild nonspecific distal esophageal wall thickening. No small bowel obstruction. Wall thickening of th e colon with pericolonic inflammation is redemonstrated which appears similar to mildly improved from the prior study. Mild colonic diverticulosis. Moderate fecal retention. Normal appendix. Unremarkabl e soft tissues. Degenerative changes of the spine, pelvis and hips. IMPRESSION: 1. Wall thickening of the colon with pericolonic stranding compatible with a nonspecific colitis is s imilar to mildly improved from the 04/22/2022 study. 2. No bowel obstruction or pneumoperitoneum. 3. Nonspecific urinary bladder wall thickening. Correlate with urinalysis to exclude cystitis. 4. Pulmonary emphysema with bronchitis. 5. Right-sided pelvic kidney. ACT 112: Negative or not required by law. The above report was generated using voice recognition software. It may contain grammatical, syntax o r spelling errors. Electronically signed by: Silas Santos M.D. 04/29/2022 4:35 PM
--- NOTE | 2022-04-29 18:49 | Hospitalist Progress Note ---
Date of Service April 29, 2022 Assessment & Plan (1) Nausea & vomiting: (2) Diarrhea: (3) Generalized abdominal pain: Plan: Present on admission with abdominal pain associated with N/V Maybe related to colchicine vs infectious CT abd/pelvis showed wall thickening with pericolonic infiltration which involves the majority of the colon. This is stable to slightly improved since CT of April 13, 2022. This represents a persistent nonspecific colitis.. Moderate amount stool within the colon and rectum. Stool PCR positive for enteroaggressive E coli Stool for Cdiff negative Repeat CT abdominal showed Wall thickening of the colon with pericolonic stranding compatible with a nonspecific colitis is similar to mildly improved from the 04/22/2022 study. Completed a short course of antibiotic for 5 days (with cipro and flagyl initially, then cipro changed to Cefdinir) Case discussed with ID - No treatment needed for the enteroaggressive E coli as per ID. Colchicine discontinued by cardio Diarrhea improved Gastro on board OK to use Imodium prn. Follow up with gastroenterology in 1 month for OP colonoscopy Bacteremia Blood cx grew gram negative bacilli Possible due to contamination called microbiology to ask about the sensitivity communications engineering technician said that they cannot identify the organism. seem to be contamination since 1 bottle out 2 set positive Specimen was sent to [facility] to identify repeat blood cx no growth ID on board IV Cefepime discontinued If cx negative, will transition PO Augmentin and doxycycline through 05/02 Case disccussed with ID Dr. Peguero that recommended to continue the Augmentin and discontinue the doxy since pt cannot tolerate it due to GI side effects Continue monitor Hypotension BP 90/63 currently Asymptomatic Received gentle IVF Continue to hold metoprolol Continue monitor BP Electrolytes imbalance Potassium 3.2 on admission, K 3.5 today Continue monitor BP Pericardial effusion Colchicine discontinued by cardiology due to GI symptoms ( Diarrhea/Vomiting and abdominal pain) Repeat ECHO showed small loculated anterior and right lateral pericardial effusion with moderate organization. LV systolic function mildly reduced with EF 40-45 % Severe hypokinesis to akinesis of the basal inferior wall cardiology on board Stable Lung Nodule Last CT chest on 04/13 showed2.1 x 1.2 cm subpleural irregular density within the right upper lobe, new since chest CT of November 22, 2019. New 1.2 cm lingular nodule which is low suspicion. Will need a repeat chest CT in 6 months is recommended to exclude the possibility of a pulmonary lesion. Systolic heart failure BNP on admission 682 ECHO showed dilated left ventricle with severe global hypokinesis and estimated left ventricular ejection fraction of around 20 to 25%.Thickening of the pericardium and a small pericardial effusion consistent with chronic pericarditis. Repeat ECHO showed Moderate diffuse Left ventricular Hypokinesis with EF 35-39% Cardiology on board Continue Metoprolol 25mg daily and low dose Losartan Continue monitor BMP Anxiety Continue Lorazepam prn CAD s/p stenting Continue aspirin, metoprolol GERD- On PPI Hypothyroidism Continue Synthroid DVT prophylaxis- On Lovenox Full code Disposition Will discharge home with HH in am Admission and Anticipated Discharge Date Admission Date: April 24, 2022 Subjective Patient was seen and evaluated for follow-up of abdominal pain and bacteremia Lying in bed with no acute distress She said that she continue to have abx denies any chest pain, Palpitations, dizziness Review of Systems Review of Systems: All systems reviewed & are unremarkable except as noted in Subjective Physical Exam Physical Exam: General- No acute distress Head- atraumatic Eyes- PERRL, EOMI, ENT- oropharynx clear Neck- supple, no JVD Lungs- clear to auscultation Heart- regular rhythm; no murmur Abdomen- normal bowel sounds, soft, +tender with deep palpation Extremities- no calf tenderness Neuro- alert, oriented x 3; PERRL, EOMI; no facial palsy; no dysarthria Skin- warm & dry Results & Data Results & Data ([facility]) Vital Signs (Past 12 Hours) Vital Signs Temp Pulse Pulse Resp BP Pulse Ox 04/29/22 15:57 81 04/29/22 11:56 36.7 C 88 18 90/59 L 97 04/29/22 08:25 36.8 C 68 18 94/63 L 97 04/29/22 07:20 88 (1) Diarrhea Diarrhea type: unspecified type Qualified Code(s): R19.7 - Diarrhea, unspecified (2) Nausea & vomiting Vomiting type: unspecified Qualified Code(s): R11.2 - Nausea with vomiting, unspecified
[2022-04-29] MEDS: ENOXAPARIN INJ 40 MG/0.4 ML SYR SQ SCH (20:03)
[2022-04-29] MEDS: traZODone HCL 100 MG TAB PO SCH (20:04)
[2022-04-30] MEDS: MoRPHine SULFATE 2 MG/ML CARP IV PRN ×5 (03:51→21:56)
[2022-04-30] MEDS: LEVOTHYROXINE SODIUM 75 MCG TABLET PO SCH (05:55)
[2022-04-30] MEDS: UMECLIDINIUM/VILANTEROL 62.5/25MCG 7 PUFFS/INHALER INH SCH (07:32)
[2022-04-30] MEDS: METOPROLOL SUCC 25MG EXT REL TAB PO SCH (07:33)
[2022-04-30] MEDS: ASPIRIN 81 MG ECTAB PO SCH (07:33)
[2022-04-30] MEDS: PANTOprazole 40 MG TAB PO SCH ×2 (07:33→19:58)
[2022-04-30] MEDS: AMOXICILLIN/CLAVULANATE 875 MG TAB PO SCH ×2 (07:33→16:41)
[2022-04-30] MEDS: FLUTICASONE FUROATE 200MCG 14 PUFFS/INHALER INH SCH (07:33)
[2022-04-30] MEDS: ASCORBIC ACID 500 MG TAB PO SCH (07:33)
[2022-04-30] MEDS: FOLIC ACID 1 MG TAB PO SCH (07:33)
[2022-04-30] MEDS: PREGABALIN 75 MG CAP PO SCH ×3 (07:37→19:58)
[2022-04-30 12:39] LABS: Calcium 8.5 mg/dl (8.5-10.1); Creatinine Clr Calc Pharmacy 71.2 ml/min; Est GFR (African American) 111.5 ml/min; Est GFR (Non-African American) 96.2 ml/min; Potassium 3.8 mmol/L (3.5-5.1)
--- NOTE | 2022-04-30 17:59 | Hospitalist Progress Note ---
Date of Service April 30, 2022 Assessment & Plan (1) Nausea & vomiting: (2) Diarrhea: (3) Generalized abdominal pain: Plan: Present on admission with abdominal pain associated with N/V Maybe related to colchicine vs infectious CT abd/pelvis showed wall thickening with pericolonic infiltration which involves the majority of the colon. This is stable to slightly improved since CT of April 13, 2022. This represents a persistent nonspecific colitis.. Moderate amount stool within the colon and rectum. Stool PCR positive for enteroaggressive E coli Stool for Cdiff negative Repeat CT abdominal showed Wall thickening of the colon with pericolonic stranding compatible with a nonspecific colitis is similar to mildly improved from the 04/22/2022 study. Completed a short course of antibiotic for 5 days (with cipro and flagyl initially, then cipro changed to Cefdinir) Case discussed with ID - No treatment needed for the enteroaggressive E coli as per ID. Colchicine discontinued by cardio Diarrhea improved Gastro on board OK to use Imodium prn. Follow up with gastroenterology in 1 month for OP colonoscopy Bacteremia Blood cx grew gram negative bacilli Possible due to contamination called microbiology to ask about the sensitivity chief technician said that they cannot identify the organism. seem to be contamination since 1 bottle out 2 set positive Specimen was sent to [facility] to identify repeat blood cx no growth ID on board IV Cefepime discontinued If cx negative, will transition PO Augmentin and doxycycline through 05/02 Case disccussed with ID Dr. Peguero that recommended to continue the Augmentin and discontinue the doxy since pt cannot tolerate it due to GI side effects Continue monitor Hypotension BP continue to run in the SBP btw 80's to 90's Asymptomatic Received gentle IVF Continue to hold metoprolol Continue monitor BP Electrolytes imbalance Potassium 3.2 on admission, K 3.8 today Continue monitor BP Pericardial effusion Colchicine discontinued by cardiology due to GI symptoms ( Diarrhea/Vomiting and abdominal pain) Repeat ECHO showed small loculated anterior and right lateral pericardial effusion with moderate organization. LV systolic function mildly reduced with EF 40-45 % Severe hypokinesis to akinesis of the basal inferior wall cardiology on board Stable Lung Nodule Last CT chest on 04/13 showed2.1 x 1.2 cm subpleural irregular density within the right upper lobe, new since chest CT of November 22, 2019. New 1.2 cm lingular nodule which is low suspicion. Will need a repeat chest CT in 6 months is recommended to exclude the possi bility of a pulmonary lesion. Systolic heart failure BNP on admission 682 ECHO showed dilated left ventricle with severe global hypokinesis and estimated left ventricular ejection fraction of around 20 to 25%.Thickening of the pericardium and a small pericardial effusion consistent with chronic pericarditis. Repeat ECHO showed Moderate diffuse Left ventricular Hypokinesis with EF 35-39% Cardiology on board Continue Metoprolol 25mg daily and low dose Losartan Continue monitor BMP Anxiety Continue Lorazepam prn CAD s/p stenting Continue aspirin, metoprolol GERD- On PPI Hypothyroidism Continue Synthroid DVT prophylaxis- On Lovenox Full code Disposition Will discharge home with HH in am Admission and Anticipated Discharge Date Admission Date: April 24, 2022 Subjective Patient was seen and evaluated for follow-up of abdominal pain and bacteremia Lying in bed with no acute distress with daughter at bedside She said that she continues to have some abdominal pain. She was able to tolerated her diet Early today temp spiked alittle BP continues to be in the low side but asymptomatic ( during last admisison she had low BP as well) denies any chest pain, Palpitations, dizziness, fever and chills Review of Systems Review of Systems: All systems reviewed & are unremarkable except as noted in Subjective Physical Exam Physical Exam: General- No acute distress Head- atraumatic Eyes- PERRL, EOMI, ENT- oropharynx clear Neck- supple, no JVD Lungs- clear to auscultation Heart- regular rhythm; no murmur Abdomen- normal bowel sounds, soft, +tender with deep palpation Extremities- no calf tenderness Neuro- alert, oriented x 3; PERRL, EOMI; no facial palsy; no dysarthria Skin- warm & dry Results & Data Results & Data ([facility]) Vital Signs (Past 12 Hours) Vital Signs Temp Pulse Pulse Resp BP Pulse Ox 04/30/22 15:28 88 04/30/22 14:28 37.6 C H 86 18 86/54 L 96 04/30/22 13:12 102/66 04/30/22 11:26 38 C H 85 18 80/52 L 97 04/30/22 07:17 36.8 C 90 18 91/60 L 98 (1) Diarrhea Diarrhea type: unspecified type Qualified Code(s): R19.7 - Diarrhea, unspecified (2) Nausea & vomiting Vomiting type: unspecified Qualified Code(s): R11.2 - Nausea with vomiting, unspecified
[2022-04-30] MEDS: ENOXAPARIN INJ 40 MG/0.4 ML SYR SQ SCH (19:58)
[2022-04-30] MEDS: traZODone HCL 100 MG TAB PO SCH (19:58)
[2022-05-01] MEDS: MoRPHine SULFATE 2 MG/ML CARP IV PRN ×5 (03:37→17:33)
[2022-05-01] MEDS: LEVOTHYROXINE SODIUM 75 MCG TABLET PO SCH (05:53)
[2022-05-01 08:17] LABS: Hemoglobin 10.6 g/dL (12.0-16.0); Red Blood Count 3.36 M/uL (4.2-5.4); White Blood Count 7.73 K/uL (4.8-10.8)
[2022-05-01 08:18] LABS: Hematocrit (blood only) 31.8 % (37-47); Mean Corpuscular Hemoglobin 31.5 pg (25-34); Mean Corpuscular Hgb Conc 33.3 g/dL (32-36); Mean Corpuscular Volume 94.6 fL (80-100); Platelet Count 320 K/uL (130-400); RDW Coefficient of Variation 16.7 % (11.5-14.5); RDW Standard Deviation 57.5 fL (36.4-46.3)
[2022-05-01] MEDS: METOPROLOL SUCC 25MG EXT REL TAB PO SCH (08:22)
[2022-05-01] MEDS: ASCORBIC ACID 500 MG TAB PO SCH (08:22)
[2022-05-01] MEDS: PREGABALIN 75 MG CAP PO SCH ×3 (08:22→21:39)
[2022-05-01] MEDS: ASPIRIN 81 MG ECTAB PO SCH (08:23)
[2022-05-01] MEDS: FOLIC ACID 1 MG TAB PO SCH (08:23)
[2022-05-01] MEDS: AMOXICILLIN/CLAVULANATE 875 MG TAB PO SCH ×2 (08:23→17:04)
[2022-05-01] MEDS: FLUTICASONE FUROATE 200MCG 14 PUFFS/INHALER INH SCH (08:24)
[2022-05-01] MEDS: UMECLIDINIUM/VILANTEROL 62.5/25MCG 7 PUFFS/INHALER INH SCH (08:24)
[2022-05-01 08:33] LABS: Albumin Globulin Ratio 1.2 (0.9-2); Albumin Level 2.7 gm/dl (3.4-5.0); BUN Creatinine Ratio 11.7 (10-20); Bilirubin,Total 0.3 mg/dl (0.2-1.0); Calcium 8.3 mg/dl (8.5-10.1); Creatinine Clr Calc Pharmacy 84.8 ml/min; Est GFR (African American) 117.3 ml/min; Est GFR (Non-African American) 101.2 ml/min; Globulin 2.2 gm/dl (2.5-4.0); Magnesium 1.8 mg/dl (1.7-2.4); Potassium 3.7 mmol/L (3.5-5.1); Total Protein 4.9 gm/dl (6.0-8.3)
[2022-05-01] MEDS: PANTOprazole 40 MG TAB PO SCH ×2 (09:05→21:39)
--- NOTE | 2022-05-01 17:35 | Hospitalist Progress Note ---
Date of Service May 01, 2022 Assessment & Plan (1) Nausea & vomiting: Plan: resolved and she is eating although still reporting pain with this. Repeat imaging revealed persistent colitis with no changes. She is having normal daily BMs and there is some nausea with Augmentin, and 1 dose left in the morning. Will call GI to lend thoughts in am. A large problem here that causes gut slowing and hypotension as well as nausea is the consistent IV morphine she has been getting. Transition to oxycodone to be used for severe pain only. Discussed this with her now. Cont pregabalin per home regimen. Cont PPI. Await GI thougts who know her. (2) Diarrhea: Plan: Infectious diarrhea with E coli-resolved with abx. (3) Generalized abdominal pain: Plan: Persistent in setting of recent possible infectious colitis with E coli. She remains on Augmentin with last dose tomorrow. Pain persisting --plan as above for better control of this. No diarrhea, so from that standpoint, her infection seems to be improved. She did have a fever yesterday and had 1/4 bottles positive for moraxella on 04/22 which appears to have been a contaminant per ID. Repeat blood cultures were negative. If any further temp spikes may consider repeat blood cultures, but currently is clinically well aside from the persistent pain (but able to eat still). Will ask GI to see her again for thoughts. (4) Hypotension: Plan: 2/2 IV morphine, change pain meds as above. (5) Bacteremia: Plan: 1/4 bottles positive for moraxella Possible due to contamination sensitivity requested from [facility] technical services manager said that they cannot identify the organism Specimen was sent to [facility] to identify repeat blood cx no growth ID on board IV Cefepime discontinued Transitioned to PO Augmentin/Doxy until 05/02 Dr. Peguero aware that patient was intolerant of doxy and she is on Augmentin monotherapy at this point. (6) Pericardial effusion: Plan: cardiology aware that she is intolerant of her colchicine. Echo updated this admission. For now, they advised to continue metoprolol and ensure electrolyte disturbances in setting of GI infection were corrected. Recommend outpatient followup for effusion. (7) Pulmonary nodule: Plan: Lung Nodule Last CT chest on 04/13 showed2.1 x 1.2 cm subpleural irregular density within the right upper lobe, new since chest CT of November 22, 2019. New 1.2 cm lingular nodule which is low suspicion. Will need a repeat chest CT in 6 months is recommended to exclude the possibility of a pulmonary lesion. (8) DVT prophylaxis: Plan: Lovenox Full Code Dispo-uncertain at this time given ongoing uncontrolled pain. Evelia Beltran DO [facility] Hospitalist Admission and Anticipated Discharge Date Admission Date: April 24, 2022 Subjective 56 yo F with h/o gastroparesis presented with nausea and vomiting. She is reporting no nausea or vomiting today and is tolerating food She states that she is having dialy bowel movements and finding it easier to has a BM. When asked about history she went into colchicine as the cause of her colitis, kidney failure episode last year as a cause for her oxygen needs currently, etc. She blamed various doctors for not listening to her and was very upset to the point of tears. After listening and expressing empathy for her situation I told her it would be good to focus on the current facts and she was aggreable We discussed the consistent IV morphine and her low blood pressure and the concerns surrounding this We discussed oxycodone as an option which she has used as an outpatient for pain control at home recently She states that she was given this script from the rehab when discharged and on review of her PDMP I noted that she is not someone who has been using narcotics consistently. She voiced at the end of the encounter after 30-40- minutes of discussion and listening that she felt as though she were being treated like a drug seeker. I explained at least twice that wasn't my impression of her or anyone else's because we wouldn't have given her the morphine or oxycodone if we thought this. There was no fever today which was a concern yesterday. She reports persistent abdominal pain in her upper abdomen, worse with food and with antibiotics. Review of Systems Review of Systems: All systems were reviewed and negative except as indicated in HPI above. Physical Exam Physical Exam: CONSTITUTIONAL: WNWD, vitals as above, generally well- appearing, NAD EYES: normal conjunctivae, no scleral icterus, NAD ENT: external ear and nose normal, MMM NECK: trachea midline, RESPIRATORY: clear to auscultation bilaterally, no crackles, rales or wheezes, normal respiratory effort CARDIOVASCULAR: regular rate and rhythm, S1 and 2 heard without murmurs, gallops or rubs, no JVD, no peripheral edema CHEST: inspection of chest was normal GASTROINTESTINAL: soft, TTP in epigastric area, ND, no guarding MUSCULOSKELETAL: strength 5/5 throughout, head is normocephalic and atraumatic SKIN: warm and dry NEUROLOGIC: CN 2-12 grossly intact, no sensory deficit, normal cognition, normal speech, no tremor, no gross focal deficits. PSYCHIATRIC: alert cooperative and oriented to person, place and time. Results & Data Results & Data ([facility]) Vital Signs (Past 12 Hours) Vital Signs Temp Pulse Pulse Resp BP Pulse Ox 05/01/22 15:35 79 05/01/22 14:45 37 C 78 18 92/57 L 97 05/01/22 10:47 37 C 82 18 90/60 L 96 05/01/22 07:30 62 05/01/22 07:21 37.2 C 81 18 89/55 L 97 Laboratory Results Short CBC 05/01/22 Range/Units 07:42 WBC 7.73 (4.8-10.8) K/uL Hgb 10.6 L (12.0-16.0) g/dL Hct 31.8 L (37-47) % Plt Count 320 (130-400) K/uL BMP 05/01/22 07:42 Sodium 139 Potassium 3.7 Chloride 104 Carbon Dioxide 32 BUN 7 Creatinine 0.60 Glucose 87 Calcium 8.3 L Liver Function 05/01/22 Range/Units 07:42 Total Bilirubin 0.3 (0.2-1.0) mg/dl AST 12 L (13-39) U/L ALT 11 (7-52) U/L Alkaline Phosphatase 54 (34-104) U/L Albumin 2.7 L (3.4-5.0) gm/dl Medications Administered Current Inpatient Medications Acetaminophen (Acetaminophen 325 Mg Tab) 650 mg PO Q4H PRN PRN Reason: Pain or Fever Stop: 05/22/22 22:22 Last Admin: 04/24/22 07:56 Dose: 650 mg Documented by: Albuterol (Albuterol Hfa 8 Gm Inhaler) 2 puffs INH Q4H PRN PRN Reason: Shortness Of Breath Stop: 05/22/22 22:22 Albuterol (Albut/Ipratrop 3mg/0.5mg Neb 3 Ml Vial) 3 ml INH QID PRN; Protocol PRN Reason: Cough, Shortness of Breath or Wheezing Stop: 05/22/22 22:22 Amoxicillin/Clavulanate Potassium (Amoxicillin/Clavulanate 875 Mg Tab) 1 tab PO BIDM [facility]; Protocol Stop: 05/02/22 22:59 Last Admin: 05/01/22 17:04 Dose: 1 tab Documented by: Ascorbic Acid (Ascorbic Acid 500 Mg Tab) 500 mg PO DAILY [facility] Stop: 05/23/22 08:59 Last Admin: 05/01/22 08:22 Dose: 500 mg Documented by: Aspirin (Aspirin 81 Mg Ectab) 81 mg PO DAILY [facility] Stop: 05/23/22 08:59 Last Admin: 05/01/22 08:23 Dose: 81 mg Documented by: Enoxaparin Sodium (Enoxaparin Inj 40 Mg/0.4 Ml Syr) 40 mg SQ HS [facility] Stop: 05/22/22 22:44 Last Admin: 04/30/22 19:58 Dose: 40 mg Documented by: Fluticasone Furoate (Fluticasone Furoate 200mcg 14 Puffs/Inhaler) 1 puffs INH DAILY [facility] Stop: 05/23/22 08:59 Last Admin: 05/01/22 08:24 Dose: 1 puffs Documented by: Folic Acid (Folic Acid 1 Mg Tab) 1 mg PO DAILY [facility] Stop: 05/23/22 08:59 Last Admin: 05/01/22 08:23 Dose: 1 mg Documented by: Levothyroxine Sodium (Levothyroxine Sodium 75 Mcg Tablet) 75 mcg PO DAILYBB [facility] Stop: 05/23/22 06:29 Last Admin: 05/01/22 05:53 Dose: 75 mcg Documented by: Lorazepam (Lorazepam 0.5 Mg Tab) 0.5 mg PO DAILY PRN PRN Reason: Anxiety Stop: 05/22/22 22:22 Last Admin: 04/26/22 13:56 Dose: 0.5 mg Documented by: Metoprolol Succinate (Metoprolol Succ 25mg Ext Rel Tab) 25 mg PO QAM [facility] Stop: 05/23/22 08:59 Last Admin: 05/01/22 08:22 Dose: Not Given Documented by: Morphine Sulfate (Morphine Sulfate 2 Mg/Ml Carp) 2 mg IV Q3H PRN PRN Reason: Pain Stop: 05/06/22 22:22 Last Admin: 05/01/22 17:33 Dose: 2 mg Documented by: Nitroglycerin (Nitroglycerin Sl 0.4 Mg/Tab Tab) 0.4 mg SL UD PRN PRN Reason: Chest Pain Stop: 05/22/22 22:22 Ondansetron HCl (Ondansetron Inj 2 Mg/Ml 2 Ml Vial) 4 mg IV Q6H PRN PRN Reason: Nausea Stop: 05/22/22 22:22 Last Admin: 04/28/22 09:33 Dose: 4 mg Documented by: Pantoprazole Sodium (Pantoprazole 40 Mg Tab) 40 mg PO BID [facility] Stop: 05/22/22 22:59 Last Admin: 05/01/22 09:05 Dose: 40 mg Documented by: Pregabalin (Pregabalin 75 Mg Cap) 75 mg PO TID [facility] Stop: 05/22/22 22:22 Last Admin: 05/01/22 14:23 Dose: 75 mg Documented by: Tizanidine HCl (Tizanidine Hcl 4 Mg Tablet) 2 mg PO Q8H PRN PRN Reason: Muscle Spasm Stop: 05/22/22 22:22 Last Admin: 04/26/22 11:29 Dose: 2 mg Documented by: Trazodone HCl (Trazodone Hcl 100 Mg Tab) 100 mg PO HS [facility] Stop: 05/22/22 22:22 Last Admin: 04/30/22 19:58 Dose: 100 mg Documented by: Umeclidinium/Vilanterol (Umeclidinium/Vilanterol 62.5/25mcg 7 Puffs/Inhaler) 1 puffs INH DAILY [facility] Stop: 05/23/22 08:59 Last Admin: 05/01/22 08:24 Dose: 1 puffs Documented by: (1) Diarrhea Diarrhea type: unspecified type Qualified Code(s): R19.7 - Diarrhea, unspecified (2) Nausea & vomiting Vomiting type: unspecified Qualified Code(s): R11.2 - Nausea with vomiting, unspecified
[2022-05-01] MEDS: LORazepam 0.5 MG TAB PO PRN (21:39)
[2022-05-01] MEDS: traZODone HCL 100 MG TAB PO SCH ×2 (21:39→22:36)
[2022-05-01] MEDS: ENOXAPARIN INJ 40 MG/0.4 ML SYR SQ SCH (21:40)
[2022-05-01] MEDS: oxyCODONE HCL IR 5 MG TAB (IMMEDIATE RELEASE) PO PRN (21:41)
[2022-05-02] MEDS: LEVOTHYROXINE SODIUM 75 MCG TABLET PO SCH (05:45)
[2022-05-02] MEDS: LORazepam 0.5 MG TAB PO PRN (06:09)
[2022-05-02] MEDS: ONDANSETRON INJ 2 MG/ML 2 ML VIAL IV PRN ×2 (07:43→21:23)
[2022-05-02] MEDS: ASPIRIN 81 MG ECTAB PO SCH (07:48)
[2022-05-02] MEDS: PANTOprazole 40 MG TAB PO SCH ×2 (07:48→20:26)
[2022-05-02] MEDS: ASCORBIC ACID 500 MG TAB PO SCH (07:48)
[2022-05-02] MEDS: FLUTICASONE FUROATE 200MCG 14 PUFFS/INHALER INH SCH (07:48)
[2022-05-02] MEDS: UMECLIDINIUM/VILANTEROL 62.5/25MCG 7 PUFFS/INHALER INH SCH (07:48)
[2022-05-02] MEDS: FOLIC ACID 1 MG TAB PO SCH (07:48)
[2022-05-02] MEDS: METOPROLOL SUCC 25MG EXT REL TAB PO SCH (07:49)
[2022-05-02] MEDS: AMOXICILLIN/CLAVULANATE 875 MG TAB PO SCH ×2 (07:49→17:13)
[2022-05-02] MEDS: PREGABALIN 75 MG CAP PO SCH ×3 (07:54→20:26)
--- NOTE | 2022-05-02 10:07 | Gastroenterology Progress Note ---
Date of Service May 02, 2022 Assessment & Plan (1) Colitis: Plan: 56 year old medically complex female with umbilical abd pain w/ deep breathing and BM associated with nausea/vomiting/diarrhea. Since stopping colchicine, her diarrhea and emesis have improved and she now reports semi-formed BMs twice daily but persistent pain associated with the BMs. - Gastroparesis diet as tolerated - Would limit narcotic analgesia as this can worsen her discomfort and associat ed gastroparesis symptoms - Would trial Bentyl 10 mg three times daily - Agree with plan for OP colonoscopy and biopsy per initial consultation note Thank you for allowing us to participate in the care of this patient. Please call with any acute changes, questions or concerns. Please see addendum below with additional recommendation from my supervising physician. Admission and Anticipated Discharge Date Admission Date: April 24, 2022 Subjective GI asked to evaluate, chart reviewed. Since stopping colchine, ongoing symptoms Midline, umbilical pain Occurs with deep breathing only and moving bowels There is associated nausea but no vomiting She notes her diarrhea has resolved She is moving bowels twice daily, semiformed without any black or bloody stools. This makes her upset as she was used to moving bowels once every 7-10 days. She gets cramping with BMs CTAP 2021: Wall thickening of the colon with pericolonic stranding compatible with a nonspecific colitis is similar to mildly improved from the 04/22/2022 study. 2. No bowel obstruction or pneumoperitoneum. 3. Nonspecific urinary bladder wall thickening. Correlate with urinalysis to exclude cystitis. 4. Pulmonary emphysema with bronchitis. 5. Right-sided pelvic kidney. Colonoscopy 2019: One 10 mm polyp in the rectum, removed with a hot snare. Resected and retrieved. - Diverticulosis in the sigmoid colon. - The examination was otherwise normal. EGD 2013: Mild Gastritis. Biopsied. - Small Hiatus hernia Colonoscopy 2013: Preparation of the colon was poor. - One 5 mm polyp at the hepatic flexure. Resected and retrieved. - One 5 mm polyp in the transverse colon. Resected and retrieved. - One 5 mm polyp in the sigmoid colon. Resected and retrieved Colonoscopy 2008: Tortuous colon. - The examined portion of the ileum was normal EGD 2008: Normal esophagus. - Z-line regular, 39 cm from the incisors. - Hiatus hernia. - Gastric mucosal abnormality characterized by erythema. Biopsied. - Normal examined duodenum. This was biopsied Review of Systems Review of Systems: All systems reviewed & are unremarkable except as noted in HPI & below Physical Exam Constitutional: WD/WN, vitals as above Respiratory: normal respiratory effort, lungs clear to auscultation Cardiovascular: RRR, no murmur, no edema Gastrointestinal (Abdomen): Inspection/Auscultation: normal bowel sounds Percussion/Palpation: + abdomen tender and abdomen soft; no guarding and abdomen not rigid Skin: no rashes, warm and dry Results & Data ([facility]) Vital Signs (Past 12 Hours) Vital Signs Temp Pulse Pulse Resp BP Pulse Ox 05/02/22 08:00 37.2 C 96 H 16 115/70 98 05/02/22 03:01 36.8 C 86 18 90/55 L 98 05/01/22 23:33 124 H 05/01/22 22:55 37.1 C 102 H 18 91/58 L 98
--- NOTE | 2022-05-02 11:56 | Hospitalist Progress Note ---
Date of Service May 02, 2022 Assessment & Plan (1) Nausea & vomiting: (2) Diarrhea: (3) Generalized abdominal pain: Plan: Present on admission with abdominal pain associated with N/V Maybe related to colchicine vs infectious CT abd/pelvis showed wall thickening with pericolonic infiltration which involves the majority of the colon. This is stable to slightly improved since CT of April 13, 2022. This represents a persistent nonspecific colitis.. Moderate amount stool within the colon and rectum. Stool PCR positive for enteroaggressive E coli Stool for Cdiff negative Repeat CT abdominal showed Wall thickening of the colon with pericolonic stranding compatible with a nonspecific colitis is similar to mildly improved from the 04/22/2022 study. Completed a short course of antibiotic for 5 days (with cipro and flagyl initially, then cipro changed to Cefdinir) Case discussed with ID - No treatment needed for the enteroaggressive E coli as per ID. Colchicine discontinued by cardio Diarrhea resolved Gastro on board recommend to limit narcotic analgesia as this can worsen her discomfort and associated gastroparesis symptoms Would trial Bentyl 10 mg three times daily as per gastro Follow up with gastroenterology in 1 month for OP colonoscopy Bacteremia Blood cx grew gram negative bacilli Possible due to contamination called microbiology to ask about the sensitivity forestry aid technician said that they cannot identify the organism. seem to be contamination since 1 bottle out 2 set positive Specimen was sent to [facility] to identify repeat blood cx no growth ID on board IV Cefepime discontinued If cx negative, will transition PO Augmentin and doxycycline through 05/02 Case discussed with ID Dr. Peguero that recommended to continue the Augmentin and discontinue the doxy since pt cannot tolerate it due to GI side effects Will complete the course of Augmentin today Hypotension PT has low BP at baseline, but BP worsening in the setting of the IV morphine administered She is asymptomatic Continue monitor BP while on Metoprolol BP improved Electrolytes imbalance Potassium 3.2 on admission, K 3.7 on 05/02/22 Continue monitor BMP Pericardial effusion Colchicine discontinued by cardiology due to GI symptoms ( Diarrhea/Vomiting and abdominal pain) Repeat ECHO showed small loculated anterior and right lateral pericardial effusion with moderate organization. LV systolic function mildly reduced with EF 40-45 % Severe hypokinesis to akinesis of the basal inferior wall cardiology on board Stable Lung Nodule Last CT chest on 04/13 showed2.1 x 1.2 cm subpleural irregular density within the right upper lobe, new since chest CT of November 22, 2019. New 1.2 cm lingular nodule which is low suspicion. Will need a repeat chest CT in 6 months is recommended to exclude the possibility of a pulmonary lesion. Systolic heart failure BNP on admission 682 ECHO showed dilated left ventricle with severe global hypokinesis and estimated left ventricular ejection fraction of around 20 to 25%.Thickening of the pericardium and a small pericardial effusion consistent with chronic pericarditis. Repeat ECHO showed Moderate diffuse Left ventricular Hypokinesis with EF 35-39% Cardiology on board Continue Metoprolol 25mg daily Continue monitor BMP Anxiety Continue Lorazepam prn Might consider to add SSRI, will defer to PCP CAD s/p stenting Continue aspirin, metoprolol GERD- On PPI Hypothyroidism Continue Synthroid DVT prophylaxis- On Lovenox Full code Disposition Will discharge home with HH in am if stable Admission and Anticipated Discharge Date Admission Date: April 24, 2022 Subjective Pt was seen and examined for follow of abdominal pain Lying in bed with no acute distress but in tears She felt hurt because she feels my colleague thought she is in the hospital just for the morphine IV She said that she has legit abdominal pain and chronic left arm pain, but doctors are concerning only about narcotic when she is dealing with so much pain She said that Tizanidine seems to helps her with the right arm numbness Her last bowel movement was yesterday Denies any abdominal pain, nausea and vomiting Review of Systems Review of Systems: All systems reviewed & are unremarkable except as noted in Subjective Physical Exam Physical Exam: General- No acute distress, tears Head- atraumatic Eyes- PERRL, EOMI, ENT- oropharynx clear Neck- supple, no JVD Lungs- clear to auscultation Heart- regular rhythm; no murmur Abdomen- normal bowel sounds, soft, +tender with deep palpation Extremities- no calf tenderness Neuro- alert, oriented x 3; PERRL, EOMI; no facial palsy; no dysarthria Skin- warm & dry Results & Data Results & Data ([facility]) Vital Signs (Past 12 Hours) Vital Signs Temp Pulse Resp BP Pulse Ox 05/02/22 08:00 37.2 C 96 H 16 115/70 98 05/02/22 03:01 36.8 C 86 18 90/55 L 98 (1) Nausea & vomiting Vomiting type: unspecified Qualified Code(s): R11.2 - Nausea with vomiting, unspecified (2) Diarrhea Diarrhea type: unspecified type Qualified Code(s): R19.7 - Diarrhea, unspecified
[2022-05-02] MEDS: oxyCODONE HCL IR 5 MG TAB (IMMEDIATE RELEASE) PO PRN ×2 (12:07→18:53)
[2022-05-02] MEDS: tiZANidine HCL 4 MG TABLET PO PRN (12:47)
[2022-05-02] MEDS ORDERED: SODIUM CHLORIDE 0.9% 1000ML 500 ML IV ONE (14:53)
[2022-05-02] MEDS: DICYCLOMINE HCL 10 MG CAP PO SCH ×2 (15:02→20:27)
[2022-05-02] MEDS: ENOXAPARIN INJ 40 MG/0.4 ML SYR SQ SCH (20:27)
[2022-05-02] MEDS: traZODone HCL 100 MG TAB PO SCH (20:37)
[2022-05-03] MEDS: LEVOTHYROXINE SODIUM 75 MCG TABLET PO SCH (05:47)
[2022-05-03] MEDS: PANTOprazole 40 MG TAB PO SCH ×2 (09:12→20:09)
[2022-05-03] MEDS: PREGABALIN 75 MG CAP PO SCH ×3 (09:12→20:09)
[2022-05-03] MEDS: oxyCODONE HCL IR 5 MG TAB (IMMEDIATE RELEASE) PO PRN ×2 (09:12→21:45)
[2022-05-03] MEDS: ASPIRIN 81 MG ECTAB PO SCH (09:13)
[2022-05-03] MEDS: ASCORBIC ACID 500 MG TAB PO SCH (09:13)
[2022-05-03] MEDS: FOLIC ACID 1 MG TAB PO SCH (09:13)
[2022-05-03] MEDS: FLUTICASONE FUROATE 200MCG 14 PUFFS/INHALER INH SCH (09:14)
[2022-05-03] MEDS: DICYCLOMINE HCL 10 MG CAP PO SCH ×3 (09:14→20:08)
[2022-05-03] MEDS: UMECLIDINIUM/VILANTEROL 62.5/25MCG 7 PUFFS/INHALER INH SCH (09:14)
[2022-05-03] MEDS: METOPROLOL SUCC 25MG EXT REL TAB PO SCH (09:14)
[2022-05-03] MEDS: ONDANSETRON INJ 2 MG/ML 2 ML VIAL IV PRN ×2 (09:15→20:10)
[2022-05-03] MEDS: LORazepam 0.5 MG TAB PO PRN (13:05)
[2022-05-03] MEDS: tiZANidine HCL 4 MG TABLET PO PRN (15:08)
--- NOTE | 2022-05-03 17:09 | Hospitalist Progress Note ---
Date of Service May 03, 2022 Assessment & Plan (1) Nausea & vomiting: (2) Diarrhea: (3) Generalized abdominal pain: Plan: Colitis Diarrhea, vomiting improved after discontinuing colchicine Medication Vs Infectious colitis H/O Gastroparesis --CT ABD:Wall thickening of the colon with pericolonic stranding compatible with a nonspecific colitis is similar to mildly improved from the 04/22/2022 study. No bowel obstruction or pneumoperitoneum. Nonspecific urinary bladder wall thickening. Correlate with urinalysis to exclude cystitis. Pulmonary emphysema with bronchitis. Right-sided pelvic kidney. --Stool Studies positive for EAEC Limit narcotic use Bentyl trial Appreciate GI input Plan for outpatient colonoscopy Monitor volume status Completed 5-day course of Cipro/Cefdinir, Flagyl Prior hospitalist discussed with ID:No treatment needed for the enteroaggressive E coli as per ID. Diarrhea resolved Suspected Bacteremia: Likely Contamination Blood Cx 11/26:Moraxella Repeat blood cultures negative ID on board IV Cefepime discontinued >>completed Augmentin course Hypotension Continue monitor BP while on Metoprolol BP Stable today Electrolytes imbalance Replace electrolytes as needed Monitor Pericardial effusion Colchicine discontinued by cardiology due to GI symptoms ( Diarrhea/Vomiting and abdominal pain) Repeat ECHO showed small loculated anterior and right lateral pericardial effusion with moderate organization. LV systolic function mildly reduced with EF 40-45 % Severe hypokinesis to akinesis of the basal inferior wall Cardiology on board Needs follow-up with cardiology upon discharge Lung Nodule Last CT chest on 04/13 showed2.1 x 1.2 cm subpleural irregular density within the right upper lobe, new since chest CT of November 22, 2019. New 1.2 cm lingular nodule which is low suspicion. Will need a repeat chest CT in 6 months is recommended to exclude the possibility of a pulmonary lesion. Chronic Systolic heart failure BNP 682 ECHO showed dilated left ventricle with severe global hypokinesis and estimated left ventricular ejection fraction of around 20 to 25%.Thickening of the pericardium and a small pericardial effusion consistent with chronic per icarditis. Repeat ECHO showed Moderate diffuse Left ventricular Hypokinesis with EF 35-39% Cardiology on board Continue Metoprolol 25mg daily Continuevolume status Anxiety Continue Lorazepam prn CAD s/p stenting Continue aspirin, metoprolol GERD On PPI Hypothyroidism Continue Levothyroxine DVT Px: Lovenox SQ Code Status Full code Disposition Home with Admission and Anticipated Discharge Date Admission Date: April 24, 2022 Subjective Patient is seen and examined at bedside States having nausea, mild periumbilical abdominal pain Also reports having 3-4 bowel movements which is normal consistency Denies any chest pain, dyspnea, dizziness Offers no other complaints Review of Systems Review of Systems: All systems reviewed & are unremarkable except as noted in Subjective Physical Exam Physical Exam: Physical Exam: Vitals signs as noted above General Appearance:Thin, Frail, Chronic ill appearing, no apparent distress Head: normocephalic, Atraumatic Eyes: normal inspection, EOMI Neck: supple, Trachea midline Respiratory/Chest: Decreased breath sounds, CTA, No accessory muscle use Cardiovascular: S1, S2, No murmur Abdomen/GI:Soft, Non tender, Bowel sounds present Extremities/Musculoskeletal:normal inspection, no edema Neurologic/Psych:AAOX3, grossly no focal neurological deficits Skin: normal color, warm Results & Data Results & Data ([facility]) Vital Signs (Past 12 Hours) Vital Signs Temp Pulse Pulse Resp BP Pulse Ox 05/03/22 16:30 94 H 05/03/22 15:07 37.1 C 94 H 16 107/68 94 05/03/22 11:22 36.9 C 82 20 90/56 L 97 05/03/22 09:54 96 H 16 95 05/03/22 08:00 82 05/03/22 07:53 37.1 C 90 18 105/75 99 (1) Nausea & vomiting Vomiting type: unspecified Qualified Code(s): R11.2 - Nausea with vomiting, unspecified (2) Diarrhea Diarrhea type: unspecified type Qualified Code(s): R19.7 - Diarrhea, unspecified
[2022-05-03] MEDS: ENOXAPARIN INJ 40 MG/0.4 ML SYR SQ SCH (20:07)
[2022-05-03] MEDS: traZODone HCL 100 MG TAB PO SCH (20:08)
[2022-05-04] MEDS: LEVOTHYROXINE SODIUM 75 MCG TABLET PO SCH (05:40)
[2022-05-04 07:38] LABS: Hematocrit (blood only) 33.5 % (37-47); Hemoglobin 10.9 g/dL (12.0-16.0); Mean Corpuscular Hemoglobin 31.1 pg (25-34); Mean Corpuscular Hgb Conc 32.5 g/dL (32-36); Mean Corpuscular Volume 95.7 fL (80-100); Mean Platelet Volume 9.7 fL (7.4-10.4); Platelet Count 332 K/uL (130-400); RDW Coefficient of Variation 17.3 % (11.5-14.5); RDW Standard Deviation 60.1 fL (36.4-46.3); White Blood Count 7.37 K/uL (4.8-10.8)
[2022-05-04] MEDS: FOLIC ACID 1 MG TAB PO SCH (07:46)
[2022-05-04] MEDS: oxyCODONE HCL IR 5 MG TAB (IMMEDIATE RELEASE) PO PRN ×2 (07:46→17:40)
[2022-05-04] MEDS: ASCORBIC ACID 500 MG TAB PO SCH (07:47)
[2022-05-04] MEDS: ASPIRIN 81 MG ECTAB PO SCH (07:47)
[2022-05-04] MEDS: METOPROLOL SUCC 25MG EXT REL TAB PO SCH (07:48)
[2022-05-04] MEDS: FLUTICASONE FUROATE 200MCG 14 PUFFS/INHALER INH SCH (07:49)
[2022-05-04] MEDS: PANTOprazole 40 MG TAB PO SCH ×2 (07:49→20:24)
[2022-05-04] MEDS: UMECLIDINIUM/VILANTEROL 62.5/25MCG 7 PUFFS/INHALER INH SCH (07:49)
[2022-05-04] MEDS: DICYCLOMINE HCL 10 MG CAP PO SCH ×3 (07:49→20:23)
[2022-05-04 07:55] LABS: BUN Creatinine Ratio 9.7 (10-20); Calcium 8.1 mg/dl (8.5-10.1); Creatinine Clr Calc Pharmacy 66.3 ml/min; Est GFR (African American) 107.7 ml/min
[2022-05-04] MEDS: PREGABALIN 75 MG CAP PO SCH ×3 (07:56→20:23)
[2022-05-04] MEDS ORDERED: SODIUM CHLORIDE 0.9% 1000ML 500 ML IV ONE (12:25)
[2022-05-04] MEDS ORDERED: SODIUM CHLORIDE 0.9% 1000ML 1,000 ML IV ONE (12:25)
[2022-05-04] MEDS: tiZANidine HCL 4 MG TABLET PO PRN (13:44)
--- NOTE | 2022-05-04 16:52 | Hospitalist Progress Note ---
Date of Service May 04, 2022 Assessment & Plan (1) Nausea & vomiting: (2) Diarrhea: (3) Generalized abdominal pain: Plan: Colitis Diarrhea, vomiting improved after discontinuing colchicine Medication Vs Infectious colitis H/O Gastroparesis --CT ABD:Wall thickening of the colon with pericolonic stranding compatible with a nonspecific colitis is similar to mildly improved from the 04/22/2022 study. No bowel obstruction or pneumoperitoneum. Nonspecific urinary bladder wall thickening. Correlate with urinalysis to exclude cystitis. Pulmonary emphysema with bronchitis. Right-sided pelvic kidney. --Stool Studies positive for EAEC Limit narcotic use Bentyl trial Appreciate GI input Plan for outpatient colonoscopy Monitor volume status Completed 5-day course of Cipro/Cefdinir, Flagyl Prior hospitalist discussed with ID:No treatment needed for the enteroaggressive E coli as per ID. Diarrhea resolved Suspected Bacteremia: Likely Contamination Blood Cx 11/26:Moraxella Repeat blood cultures negative ID on board IV Cefepime discontinued >>completed Augmentin course Hypotension Blood pressure improved with IV fluids Trial of midodrine Monitor BP Electrolytes imbalance Replace electrolytes as needed Monitor Pericardial effusion Colchicine discontinued by cardiology due to GI symptoms ( Diarrhea/Vomiting and abdominal pain) Repeat ECHO showed small loculated anterior and right lateral pericardial effusion with moderate organization. LV systolic function mildly reduced with EF 40-45 % Severe hypokinesis to akinesis of the basal inferior wall Cardiology on board Needs follow-up with cardiology upon discharge Lung Nodule Last CT chest on 04/13 showed2.1 x 1.2 cm subpleural irregular density within the right upper lobe, new since chest CT of November 22, 2019. New 1.2 cm lingular nodule which is low suspicion. Will need a repeat chest CT in 6 months is recommended to exclude the possibility of a pulmonary lesion. Chronic Systolic heart failure BNP 682 ECHO showed dilated left ventricle with severe global hypokinesis and estimated left ventricular ejection fraction of around 20 to 25%.Thickening of the pericardium and a small pericardial effusion consistent with chronic pericarditis. Repeat ECHO showed Moderate diffuse Left ventricular Hypokinesis with EF 35-39% Cardiology on board Continue Metoprolol 25mg daily Continuevolume status Anxiety Continue Lorazepam prn CAD s/p stenting Continue aspirin, metoprolol GERD On PPI Hypothyroidism Continue Levothyroxine DVT Px: Lovenox SQ Code Status Full code Disposition Home with Admission and Anticipated Discharge Date Admission Date: April 24, 2022 Subjective Patient is seen and examined at bedside States feeling well today Offers no complaints Pressure dropped later this afternoon and patient complained dizziness Nausea, abdominal pain, diarrhea resolved Denies any chest pain, dyspnea Review of Systems Review of Systems: All systems reviewed & are unremarkable except as noted in Subjective Physical Exam Physical Exam: Physical Exam: Vitals signs as noted above General Appearance:Thin, Frail, Chronic ill appearing, no apparent distress Head: normocephalic, Atraumatic Eyes: normal inspection, EOMI Neck: supple, Trachea midline Respiratory/Chest: Decreased breath sounds, CTA, No accessory muscle use Cardiovascular: S1, S2, No murmur Abdomen/GI:Soft, Non tender, Bowel sounds present Extremities/Musculoskeletal:normal inspection, no edema Neurologic/Psych:AAOX3, grossly no focal neurological deficits Skin: normal color, warm Results & Data Results & Data ([facility]) Vital Signs (Past 12 Hours) Vital Signs Temp Pulse Resp BP Pulse Ox 05/04/22 15:22 36.6 C 90 18 93/58 L 90 05/04/22 13:29 88/50 L 05/04/22 11:32 36.8 C 68 18 90/58 L 97 05/04/22 07:43 37.0 C 90 18 101/66 97 Laboratory Results Short CBC 05/04/22 Range/Units 07:06 WBC 7.37 (4.8-10.8) K/uL Hgb 10.9 L (12.0-16.0) g/dL Hct 33.5 L (37-47) % Plt Count 332 (130-400) K/uL BMP 05/04/22 07:06 Sodium 140 Potassium 4.0 Chloride 106 Carbon Dioxide 29 BUN 7 Creatinine 0.72 Glucose 93 Calcium 8.1 L (1) Nausea & vomiting Vomiting type: unspecified Qualified Code(s): R11.2 - Nausea with vomiting, unspecified (2) Diarrhea Diarrhea type: unspecified type Qualified Code(s): R19.7 - Diarrhea, unspecified
[2022-05-04] MEDS: MIDODRINE HCL 2.5 MG TAB PO SCH (17:34)
[2022-05-04] MEDS: traZODone HCL 100 MG TAB PO SCH (20:18)
[2022-05-04] MEDS: LORazepam 0.5 MG TAB PO PRN (20:23)
[2022-05-04] MEDS: ENOXAPARIN INJ 40 MG/0.4 ML SYR SQ SCH (20:24)
[2022-05-04] MEDS: ALBUT/IPRATROP 3MG/0.5MG NEB 3 ML VIAL INH PRN (21:53)
[2022-05-05] MEDS: LEVOTHYROXINE SODIUM 75 MCG TABLET PO SCH (06:03)
[2022-05-05] MEDS: ALBUT/IPRATROP 3MG/0.5MG NEB 3 ML VIAL INH PRN (06:21)
[2022-05-05] MEDS: oxyCODONE HCL IR 5 MG TAB (IMMEDIATE RELEASE) PO PRN ×2 (07:12→14:28)
[2022-05-05] MEDS: FLUTICASONE FUROATE 200MCG 14 PUFFS/INHALER INH SCH (08:11)
[2022-05-05] MEDS: UMECLIDINIUM/VILANTEROL 62.5/25MCG 7 PUFFS/INHALER INH SCH (08:11)
[2022-05-05] MEDS: DICYCLOMINE HCL 10 MG CAP PO SCH ×3 (08:12→20:27)
[2022-05-05] MEDS: PANTOprazole 40 MG TAB PO SCH ×2 (08:13→20:27)
[2022-05-05] MEDS: METOPROLOL SUCC 25MG EXT REL TAB PO SCH (08:14)
[2022-05-05] MEDS: tiZANidine HCL 4 MG TABLET PO PRN ×2 (08:14→18:10)
[2022-05-05] MEDS: FOLIC ACID 1 MG TAB PO SCH (08:15)
[2022-05-05] MEDS: ASPIRIN 81 MG ECTAB PO SCH (08:15)
[2022-05-05] MEDS: MIDODRINE HCL 2.5 MG TAB PO SCH ×3 (08:15→17:04)
[2022-05-05] MEDS: ASCORBIC ACID 500 MG TAB PO SCH (08:15)
[2022-05-05] MEDS: PREGABALIN 75 MG CAP PO SCH ×3 (08:18→20:26)
[2022-05-05 09:08] LABS: BUN Creatinine Ratio 9.5 (10-20); Calcium 8.5 mg/dl (8.5-10.1); Creatinine Clr Calc Pharmacy 64.5 ml/min; Est GFR (African American) 104.2 ml/min; Est GFR (Non-African American) 89.9 ml/min; Potassium 3.9 mmol/L (3.5-5.1)
[2022-05-05] MEDS: LORazepam 0.5 MG TAB PO PRN ×2 (12:36→20:26)
--- NOTE | 2022-05-05 18:42 | Hospitalist Progress Note ---
Date of Service May 05, 2022 Assessment & Plan (1) Nausea & vomiting: (2) Diarrhea: (3) Generalized abdominal pain: Plan: Colitis Diarrhea, vomiting improved after discontinuing colchicine Medication Vs Infectious colitis H/O Gastroparesis --CT ABD:Wall thickening of the colon with pericolonic stranding compatible with a nonspecific colitis is similar to mildly improved from the 04/22/2022 study. No bowel obstruction or pneumoperitoneum. Nonspecific urinary bladder wall thickening. Correlate with urinalysis to exclude cystitis. Pulmonary emphysema with bronchitis. Right-sided pelvic kidney. --Stool Studies positive for EAEC Limit narcotic use Bentyl trial Appreciate GI input Plan for outpatient colonoscopy Monitor volume status Completed 5-day course of Cipro/Cefdinir, Flagyl Prior hospitalist discussed with ID:No treatment needed for the enteroaggressive E coli as per ID. Diarrhea resolved Needs follow-up with GI upon discharge Suspected Bacteremia: Likely Contamination Blood Cx 11/26:Moraxella Repeat blood cultures negative ID on board IV Cefepime discontinued >>completed Augmentin course Hypotension Blood pressure improved with IV fluids Trial of midodrine Monitor BP Blood pressure stable doing well off IV fluids Continue midodrine Electrolytes imbalance Replace electrolytes as needed Monitor Pericardial effusion Colchicine discontinued by cardiology due to GI symptoms ( Diarrhea/Vomiting and abdominal pain) Repeat ECHO showed small loculated anterior and right lateral pericardial effusion with moderate organization. LV systolic function mildly reduced with EF 40-45 % Severe hypokinesis to akinesis of the basal inferior wall Cardiology on board Needs follow-up with cardiology upon discharge Lung Nodule Last CT chest on 04/13 showed2.1 x 1.2 cm subpleural irregular density within the right upper lobe, new since chest CT of November 22, 2019. New 1.2 cm lingular nodule which is low suspicion. Will need a repeat chest CT in 6 months is recommended to exclude the possibility of a pulmonary lesion. Chronic Systolic heart failure BNP 682 ECHO showed dilated left ventricle with severe global hypokinesis and estimated left ventricular ejection fraction of around 20 to 25%.Thickening of the pericardium and a small pericardial effusion consistent with chronic pericarditis. Repeat ECHO showed Moderate diffuse Left ventricular Hypokinesis with EF 35-39% Cardiology on board Continue Metoprolol 25mg daily Monitor volume status Anxiety Continue Lorazepam prn CAD s/p stenting Continue aspirin, metoprolol GERD On PPI Hypothyroidism Continue Levothyroxine DVT Px: Lovenox SQ Code Status Full code Disposition Home with Admission and Anticipated Discharge Date Admission Date: April 24, 2022 Subjective Patient is seen and examined at bedside No new complaints BP stable today Dizziness resolved No recurrence of nausea, abdominal pain, diarrhea Denies any chest pain, dyspnea Review of Systems Review of Systems: All systems reviewed & are unremarkable except as noted in Subjective Physical Exam Physical Exam: Physical Exam: Vitals signs as noted above General Appearance:Thin, Frail, Chronic ill appearing, no apparent distress Head: normocephalic, Atraumatic Eyes: normal inspection, EOMI Neck: supple, Trachea midline Respiratory/Chest: Decreased breath sounds, CTA, No accessory muscle use Cardiovascular: S1, S2, No murmur Abdomen/GI:Soft, Non tender, Bowel sounds present Extremities/Musculoskeletal:normal inspection, no edema Neurologic/Psych:AAOX3, grossly no focal neurological deficits Skin: normal color, warm Results & Data Results & Data ([facility]) Vital Signs (Past 12 Hours) Vital Signs Temp Pulse Pulse Resp BP Pulse Ox 05/05/22 16:19 83 05/05/22 15:35 36.8 C 84 18 102/63 94 05/05/22 11:59 36.9 C 81 16 98/59 L 97 05/05/22 07:35 37 C 108 H 18 109/60 97 05/05/22 07:04 120 H Laboratory Results [facility] 05/05/22 08:15 Sodium 141 Potassium 3.9 Chloride 108 H Carbon Dioxide 26 BUN 7 Creatinine 0.74 Glucose 120 H Calcium 8.5 (1) Nausea & vomiting Vomiting type: unspecified Qualified Code(s): R11.2 - Nausea with vomiting, unspecified (2) Diarrhea Diarrhea type: unspecified type Qualified Code(s): R19.7 - Diarrhea, unspecified
[2022-05-05] MEDS: ENOXAPARIN INJ 40 MG/0.4 ML SYR SQ SCH (20:28)
[2022-05-05] MEDS: traZODone HCL 100 MG TAB PO SCH (20:28)
[2022-05-06] MEDS: oxyCODONE HCL IR 5 MG TAB (IMMEDIATE RELEASE) PO PRN ×3 (02:07→14:27)
[2022-05-06] MEDS: LEVOTHYROXINE SODIUM 75 MCG TABLET PO SCH (06:12)
[2022-05-06] MEDS: tiZANidine HCL 4 MG TABLET PO PRN (07:42)
[2022-05-06] MEDS: PREGABALIN 75 MG CAP PO SCH (08:21)
[2022-05-06] MEDS: FLUTICASONE FUROATE 200MCG 14 PUFFS/INHALER INH SCH (08:21)
[2022-05-06] MEDS: UMECLIDINIUM/VILANTEROL 62.5/25MCG 7 PUFFS/INHALER INH SCH (08:21)
[2022-05-06] MEDS: METOPROLOL SUCC 25MG EXT REL TAB PO SCH (08:22)
[2022-05-06] MEDS: MIDODRINE HCL 2.5 MG TAB PO SCH ×2 (08:22→12:12)
[2022-05-06] MEDS: PANTOprazole 40 MG TAB PO SCH (08:22)
[2022-05-06] MEDS: FOLIC ACID 1 MG TAB PO SCH (08:22)
[2022-05-06] MEDS: ASCORBIC ACID 500 MG TAB PO SCH (08:23)
[2022-05-06] MEDS: ASPIRIN 81 MG ECTAB PO SCH (08:23)
[2022-05-06] MEDS: DICYCLOMINE HCL 10 MG CAP PO SCH (08:23)
[2022-05-06] MEDS: LORazepam 0.5 MG TAB PO PRN (12:12)
--- NOTE | 2022-05-06 13:28 | Hospitalist Progress Note ---
Date of Service May 06, 2022 Assessment & Plan (1) Nausea & vomiting: (2) Diarrhea: (3) Generalized abdominal pain: Plan: Colitis Diarrhea, vomiting improved after discontinuing colchicine Medication Vs Infectious colitis H/O Gastroparesis --CT ABD:Wall thickening of the colon with pericolonic stranding compatible with a nonspecific colitis is similar to mildly improved from the 04/22/2022 study. No bowel obstruction or pneumoperitoneum. Nonspecific urinary bladder wall thickening. Correlate with urinalysis to exclude cystitis. Pulmonary emphysema with bronchitis. Right-sided pelvic kidney. --Stool Studies positive for EAEC Limit narcotic use Bentyl trial Appreciate GI input Plan for outpatient colonoscopy Monitor volume status Completed 5-day course of Cipro/Cefdinir, Flagyl Prior hospitalist discussed with ID:No treatment needed for the enteroaggressive E coli as per ID. Nausea, vomiting, diarrhea resolved Needs follow-up with GI upon discharge Plan to discharge home today Suspected Bacteremia: Likely Contamination Blood Cx 11/26:Moraxella Repeat blood cultures negative ID on board IV Cefepime discontinued >>completed Augmentin course Hypotension Blood pressure improved with IV fluids Trial of midodrine Monitor BP Blood pressure stable doing well off IV fluids Continue midodrine Electrolytes imbalance Replace electrolytes as needed Monitor Pericardial effusion Colchicine discontinued by cardiology due to GI symptoms ( Diarrhea/Vomiting and abdominal pain) Repeat ECHO showed small loculated anterior and right lateral pericardial effusion with moderate organization. LV systolic function mildly reduced with EF 40-45 % Severe hypokinesis to akinesis of the basal inferior wall Cardiology on board Needs follow-up with cardiology upon discharge Lung Nodule Last CT chest on 04/13 showed2.1 x 1.2 cm subpleural irregular density within the right upper lobe, new since chest CT of November 22, 2019. New 1.2 cm lingular nodule which is low suspicion. Will need a repeat chest CT in 6 months is recommended to exclude the possibility of a pulmonary lesion. Chronic Systolic heart failure BNP 682 ECHO showed dilated left ventricle with severe global hypokinesis and estimated left ventricular ejection fraction of around 20 to 25%.Thickening of the pericardium and a small pericardial effusion consistent with chronic pericarditis. Repeat ECHO showed Moderate diffuse Left ventricular Hypokinesis with EF 35-39% Cardiology on board Continue Metoprolol 25mg daily Monitor volume status Anxiety Continue Lorazepam prn CAD s/p stenting Continue aspirin, metoprolol GERD On PPI Hypothyroidism Continue Levothyroxine DVT Px: Lovenox SQ Code Status Full code Disposition Home with Admission and Anticipated Discharge Date Admission Date: April 24, 2022 Subjective Patient is seen and examined at bedside Doing well today Denies any chest pain, dyspnea, nausea, vomiting, abdominal pain BP stable Review of Systems Review of Systems: All systems reviewed & are unremarkable except as noted in Subjective Physical Exam Physical Exam: Physical Exam: Vitals signs as noted above General Appearance:Thin, Frail, Chronic ill appearing, no apparent distress Head: normocephalic, Atraumatic Eyes: normal inspection, EOMI Neck: supple, Trachea midline Respiratory/Chest: Decreased breath sounds, CTA, No accessory muscle use Cardiovascular: S1, S2, No murmur Abdomen/GI:Soft, Non tender, Bowel sounds present Extremities/Musculoskeletal:normal inspection, no edema Neurologic/Psych:AAOX3, grossly no focal neurological deficits Skin: normal color, warm Results & Data Results & Data ([facility]) Vital Signs (Past 12 Hours) Vital Signs Temp Pulse Pulse Resp BP Pulse Ox 05/06/22 12:55 36.9 C 73 18 101/63 98 05/06/22 10:56 36.9 C 73 18 101/63 98 05/06/22 08:30 36.9 C 93 H 18 115/76 96 05/06/22 07:24 81 05/06/22 03:30 36.9 C 84 18 119/72 98 05/06/22 03:04 79 (1) Nausea & vomiting Vomiting type: unspecified Qualified Code(s): R11.2 - Nausea with vomiting, unspecified (2) Diarrhea Diarrhea type: unspecified type Qualified Code(s): R19.7 - Diarrhea, unspecified
--- NOTE | 2022-05-06 13:50 | Discharge Summary ---
Date of Service May 06, 2022 Admission HPI Per Admitting Provider CHIEF COMPLAINT: Abdominal pain, chest pain, persistent nausea, vomiting, and diarrhea. HISTORY OF PRESENT ILLNESS: This is a 56-year-old female with a past medical history significant for chronic systolic heart failure with EF of 35%-39%, history of CAD, status post angioplasty and stents, history of COPD, history of recurrent spontaneous pneumothorax, status post thoracotomy, history of hypertension, neurofibromatosis, history of pericardial effusion, on ongoing colchicine treatment, history of IBS, constipation predominant, history of gastroparesis as per records, history of past tobacco use. She was in the hospital from 03/10/2022 to 04/04/2022 for respiratory failure secondary to COPD exacerbation secondary to influenza, status post intubation and found to have pericardial effusion during that admission and the patient was discharged on colchicine course. She was again in the hospital for nausea, vomiting and diarrhea, thought to be from colchicine and colitis, and the patient was in the hospital for a couple of days and got discharged. Again was in the ER on last Thursday, but again was discharged and then comes here back because of persistent nausea, vomiting and diarrhea. Not able to eat anything, not able to keep anything down, and also having severe abdominal pain. In the ER today, she also has some chest pain. Currently resting comfortably and hemodynamically stable. She states she is on oxygen 2 liters all the time. No headache, no blurred visions, no earache, no runny nose, no sore throat. Normal bowel and bladder movements. Admission Exam Per Admitting Provider PHYSICAL EXAMINATION: GENERAL: The patient is of moderate build, not in acute distress. VITAL SIGNS: Temperature 36.9, pulse 103, respiratory rate 20, blood pressure 168/96, oxygen 100% on 2 liters. HEENT: Pupils equal, round and reactive to light. Oral mucosa moist. NECK: No JVD. No neck masses. CARDIOVASCULAR: S1 and S2 heard. Regular rate and rhythm. No murmur, no gallop. RESPIRATORY SYSTEM: Normal AP diameter. No accessory muscle use. No wheezing, no crackles. ABDOMEN: Soft. Bowel sounds are present. Mild diffuse discomfort. No guarding, no rigidity, no distention. CENTRAL NERVOUS SYSTEM: Cranial nerves II through XII are grossly intact, nonfocal. EXTREMITIES: No edema, no erythema. Principal Diagnosis Colitis Hypotension Gastroparesis Lung nodule Discharge Data Allergies Allergy/AdvReac Type Severity Reaction Status Date / Time ibuprofen Allergy Intermediate Unknown Verified 04/22/22 17:00 NSAIDS (Non-Steroidal Allergy Intermediate Unknown Verified 04/22/22 17:00 Anti-Inflamma Sulfa (Sulfonamide Allergy Intermediate HIVES Verified 04/22/22 17:00 Antibiotics) adhesive Allergy Mild BANDAIDS Verified 04/22/22 17:00 SKIN ABRASION ketorolac [From Toradol] Allergy Mild Unknown Verified 04/22/22 17:00 adhesive tape Allergy Unknown Unknown Verified 04/22/22 17:00 tramadol Allergy Unknown . Verified 04/22/22 17:00 rosuvastatin [From Crestor] AdvReac Intermediate Weakness Verified 04/22/22 17:00 prednisone AdvReac Mild Patient Verified 04/22/22 17:00 Reports Contraindication in Kidney Failure meperidine AdvReac Unknown MOOD SWINGS Verified 04/22/22 17:00 Consultations 04/22/22 19:24 ED Decision to Admit Stat 04/23/22 08:00 Consult Cardiology Routine Consult Gastroenterology Routine 04/24/22 09:51 Consult Infectious Diseases Routine Ordered Studies 04/22/22 16:53 CT abd pelvis wo con Stat 04/29/22 15:14 CT abd pelvis IV con only Routine Hospital Course (1) Nausea & vomiting: (2) Diarrhea: (3) Generalized abdominal pain: Colitis Diarrhea, vomiting improved after discontinuing colchicine Medication Vs Infectious colitis H/O Gastroparesis --CT ABD:Wall thickening of the colon with pericolonic stranding compatible with a nonspecific colitis is similar to mildly improved from the 04/22/2022 study. No bowel obstruction or pneumoperitoneum. Nonspecific urinary bladder wall thickening. Correlate with urinalysis to exclude cystitis. Pulmonary emphysema with bronchitis. Right-sided pelvic kidney. --Stool Studies positive for EAEC Limit narcotic use Bentyl trial Appreciate GI input Plan for outpatient colonoscopy Monitor volume status Completed 5-day course of Cipro/Cefdinir, Flagyl Prior hospitalist discussed with ID:No treatment needed for the enteroaggressive E coli as per ID. Nausea, vomiting, diarrhea resolved Needs follow-up with GI upon discharge Plan to discharge home today Suspected Bacteremia: Likely Contamination Blood Cx 11/26:Moraxella Repeat blood cultures negative ID on board IV Cefepime discontinued >>completed Augmentin course Hypotension Blood pressure improved with IV fluids Trial of midodrine Monitor BP Blood pressure stable doing well off IV fluids Continue midodrine Electrolytes imbalance Replace electrolytes as needed Monitor Pericardial effusion Colchicine discontinued by cardiology due to GI symptoms ( Diarrhea/Vomiting and abdominal pain) Repeat ECHO showed small loculated anterior and right lateral pericardial effusion with moderate organization. LV systolic function mildly reduced with EF 40-45 % Severe hypokinesis to akinesis of the basal inferior wall Cardiology on board Needs follow-up with cardiology upon discharge Lung Nodule Last CT chest on 04/13 showed2.1 x 1.2 cm subpleural irregular density within the right upper lobe, new since chest CT of November 22, 2019. New 1.2 cm lingular nodule which is low suspicion. Will need a repeat chest CT in 6 months is recommended to exclude the possibility of a pulmonary lesion. Chronic Systolic heart failure BNP 682 ECHO showed dilated left ventricle with severe global hypokinesis and estimated left ventricular ejection fraction of around 20 to 25%.Thickening of the pericardium and a small pericardial effusion consistent with chronic pericarditis. Repeat ECHO showed Moderate diffuse Left ventricular Hypokinesis with EF 35-39% Cardiology on board Continue Metoprolol 25mg daily Monitor volume status Anxiety Continue Lorazepam prn CAD s/p stenting Continue aspirin, metoprolol GERD On PPI Hypothyroidism Continue Levothyroxine DVT Px: Lovenox SQ Code Status Full code Disposition Home with HH Total Time Total Time Spent Total Time Spent (In Minutes): 45 minutes Discharge Plan Discharge Items Patient Disposition: Home - Home Health Services Reason For Visit: NAUSEA, VOMITING, AB PAIN Discharge Diagnosis: Colitis Hypotension Gastroparesis Lung nodule Activity: Per Instructions section Exercise/Sports: Gradually increase as tolerated Non-emergency contact: Primary Care Provider and Clay Digger Call non-emergency contact if: you have any medication questions, your pain is concerning for you and you have a fever Follow-up/Referrals: Gillian Caicedo MD [Primary Care Provider] - (Date & Time 05/09/2022 10:40 AM Provider Vladimir Rodríguez PA-C Department General Internal Medicine [facility] ) Dietitian Info: Gastroparesis diet Diet: Heart Healthy Addtl Attending Provider Instructions: Follow-up with your primary care physician on 05/09/2022 10:40 AM Follow-up with your surgical appliance fitter for colonoscopy as outpatient as advised. --- You are incidentally found to have a lung nodule on CT scan. Follow-up with your physician for repeat CT scan in 6 months as advised. ---Your colchicine is discontinued as recommended by your school age lead teacher. Seek immediate medical attention if your symptoms reoccur or worsen Please take all medications as instructed on discharge list below. Please call if you have any questions or problems. You can reach a [facility] hospitalist on duty at [facility] 24 hours a day by calling [phone] Pending Studies at Discharge: No Stand-Alone Forms: My [facility] [employer] Online, Smoking Cessation Medications and DC Order Prescriptions: New dicyclomine 10 mg Capsule 10 mg PO TID PRN (Reason: Abdominal Pain) Qty: 30 RF: 0 midodrine 2.5 mg Tablet 2.5 mg PO TID@0800,1200,1700 Qty: 90 RF: 0 Continued ipratropium-albuterol 0.5 mg-3 mg(2.5 mg base)/3 mL solution for nebulization 3 ml INHALATION QID PRN (Reason: Cough, Shortness of Breath or Wheezing) RF: 0 tizanidine 4 mg tablet 2 mg PO Q8H PRN (Reason: Muscle Spasm) RF: 0 aspirin 81 mg Tablet,Delayed Release (Dr/Ec) 81 mg PO DAILY RF: 0 levothyroxine [Synthroid] 75 mcg tablet 75 mcg PO DAILY RF: 0 lorazepam 0.5 mg tablet 0.5 mg PO DAILY PRN (Reason: Anxiety) RF: 0 ascorbic acid (vitamin C) [Vitamin C] 500 mg Tablet 500 mg PO DAILY RF: 0 trazodone 100 mg tablet 100 mg PO HS RF: 0 cyanocobalamin (vitamin B-12) 1,000 mcg/mL Solution 100 mcg IM MONTHLY RF: 0 omeprazole 20 mg capsule,delayed release(DR/EC) 20 mg PO BID RF: 0 folic acid 1 mg Tablet 1 mg PO DAILY RF: 0 metoprolol succinate 25 mg tablet extended release 24 hr 25 mg PO QAM RF: 0 albuterol sulfate 90 mcg/actuation HFA aerosol inhaler 2 puff INHALATION Q4H PRN (Reason: Shortness Of Breath) RF: 0 Flovent HFA 110 mcg/actuation Hfa Aerosol Inhaler 2 puff INHALATION BID RF: 0 pregabalin 75 mg capsule 75 mg PO TID RF: 0 calcium carbonate-vitamin D3 [Calcium 600 + D(3)] 600 mg-10 mcg (400 unit) Tablet 1 tab PO DAILY RF: 0 cholecalciferol (vitamin D3) [Vitamin D3] 50 mcg (2,000 unit) Tablet 50 mcg PO DAILY RF: 0 Stiolto Respimat 2.5-2.5 mcg/actuation mist 2 puff INHALATION DAILY RF: 0 Repatha Pushtronex 420 mg/3.5 mL wearable injector 420 mg SUBCUT MONTHLY RF: 0 Discontinued colchicine [Colcrys] 0.6 mg Tablet 0.6 mg PO BID 30 Days Qty: 60 RF: 0 Discharge Orders: Discharge Order (Routine); Ordered 05/06/22 Ordered By: Mir Carreon Admission Data Admit Date/Time: 04/24/22 09:54 Attending Provider: Mir Carreon Admit Provider: Micky Owens Primary Care Provider: Gillian Caicedo Other Providers: Micky Owens ; Seven Teresa ; Calvin Kearns ; Madan Boudreaux ; Angel Castillo ; Kvng Monaco ; Pio Barnes ; Angeline Madsen ; Maricarmen Lira ; Joy Molina ; Singh Wills ; Ziggy Chapa ; [place] ; Del Henson ; Neelam Beckett ; Peng Peguero I. ; Pato Rutherford II ; Nelly Irizarry ; Pio Galeana ; Fabiano Maharaj Other Interventions: Discharge Summary Assessment (RN) Last Done: 05/06/22 12:55
[2022-05-06] MEDS: ONDANSETRON INJ 2 MG/ML 2 ML VIAL IV PRN (14:20)
== END 2022-05-06 14:59 | disposition home health service (06) | DRG 372 ==
LOC: ED 13:53 → 2W 13:53 → SUATTDRO 04-24 09:54 → 2W 05-02 17:42

== ENCOUNTER 2022-10-19 12:31 | Inpatient (IN) ==
--- NOTE | 2022-10-19 12:59 | Emergency Department Note ---
Impression & Plan COPD exacerbation, Hypoxia ED Provider Note NAME: ANISHA KINGSLEY AGE: 57 SEX: F : 1965 ARRIVES VIA: Ambulance INFORMANT: [Patient][, ] ED PROVIDER(S): [Jerel Naqvi MD] Chief Complaint: SOB, cough HPI: Patient presents w/ SOB and cough, ongoing several days, acutely worse in last 24 hours. Patient typically w/ productive cough but usually white and currently yellow/greenish. Smoker and chronically wears 2Ls at all times. She does have CRUZ, no significant orthopnea. Patient w/o CP. She does see Adela Rangel w/ heart failure service and recently prescribed aldactone but yet to start. Patient denies n/v or chest pain. No recent travel or known sick contacts. Her at home treatments have not improved her symptoms. She did receive a neb treatment en route via EMS which did help. Patient was intubated here in February. ROS: See HPI for pertinent positives and negatives. A total of 10 systems were r eviewed and otherwise negative. Past medical history: See below Surgical history: See below Social history: See below Physical Exam: GENERAL: Moderate distress, NC in place, tachypnea EYE EXAM: Normal conjunctiva. PERRL, no anisocoria and EOM's grossly intact w/o pain. NECK: Supple, no nuchal rigidity, no adenopathy, non-tender. No signs of meningismus. FROM of the neck with good chin to chest and neck extension. No stridor. LUNGS: Decreased breath sounds throughout, mild wheezing. Tachypnea noted. HEART: Tachycardic and regular, no MRG. ABDOMEN: Abdomen soft, non-tender, normo-active bowel sounds, no masses, no rebound or guarding. BACK: No CVA TTP. SKIN: No rashes and no bruising. UPPER EXTREMITIES: Upper extremities are grossly normal. LOWER EXTREMITIES: Grossly normal, trace edema w/o calf pain or erythema. NEURO EXAM: A&O x3, cranial nerves II-XII grossly intact, normal speech, moves all 4 extremities. Differential diagnoses: Reactive airway disease, pneumonia, pneumothorax, COPD, CHF, infections, cardiac ischemia, pulmonary embolism, musculoskeletal, gastrointestinal, as well as other pathologies. Course: Patient was seen and evaluated the bedside. Full history physical exam was performed. EKG interpreted by me Sinus tach 115, prolonged QT, no significant changef Imaging Studies: See Below Cardiac monitoring: An order was placed for continuous cardiac monitoring. The monitor shows a rate of 115 with tachycardic and regular rhythm. Procedures: Limited Point of Care Cardiac Ultrasound performed by me: Indication: SOB, h/o pericardial effusion Findings: Limited echocardiography revealed no significant pericardial fluid. There may be trace fluid. HR 100s Impression: No tamponade MDM: Patient presents due to concern for shortness of breath and cough. Blood work was obtained along with a VBG EKG and cultures. Ordered breathing treatment, mag, and steroids. The patient was ordered empiric antibiotics. Patient was not ordered significant IV fluids due to concern for CHF. [id number] limited ultrasound was technically limited but did not show significant pericardial effusion. Patient denies any chest pains. The patient initially did not want be placed on BiPAP as the patient was fairly anxious. The patient did not have significant white count the patient was not anemic. Procalcitonin slightly elevated. VBG with no significant acidemia. Upon subsequent reassessment the patient stated that she felt like she was having increased difficulty with breathing. Patient was willing to try BiPAP. The patient was ordered 0.25 of Ativan and placed on BiPAP. Patient was reassessed several times thereafter and the patient did have improvement in symptoms. I did speak with the on-call hospitalist Gianna Peguero PA-C and the patient was admitted to the [facility] medical service. Critical Care: I have personally spent 77 minutes of critical care time in direct management of this patient. This includes bedside care, interpretation of diagnostic studies, and testing, discussion with consultants, patient, and family members, and other require inpatient management activities. This 77 minutes is in excess of all separately billable procedures. Past Med/Surg History Medical History Acute respiratory failure with hypoxia UNRULY (acute kidney injury) Anxiety CAD (coronary artery disease) Cavernous hemangioma of brain Chronic pain CKD (chronic kidney disease), stage III Gastroparesis HFrEF (heart failure with reduced ejection fraction) Hx of bronchitis Hypokalemia CAN NOT TOLERATE PO POTASSIUM PILLS DUE TO GASTROPARESIS Myocardial infarction 2010 - CHEST PAIN -[facility] ER AND HAD HEART CATH WITH ONE STENT (BARE METAL) FOLLOW WITH [facility] Neurofibromatosis Pneumothorax AGE 24 - SURGERY TO REPAIR THE LEFT SIDE AND CHEMICAL TREATMENT ON THE RIGHT SIDE AT [facility] 2014 ONLY HAD ONE -- ADMITTED TO [facility] --- METABOLIC RELATED ---- NO MEDICATION Shortness of breath Statin intolerance Volume overload Surgical History History of hernia repair UMBILICAL Hx of cardiac cath 2011 HEART CATH WITH ONE STENT Hx of section X2 Hx of colonoscopy Hx of vaginal surgery 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 Family History Father Lung disease Severe emphysema, pneumothorax Social History Smoking Status: Former smoker Tobacco Type: Cigarettes Age Started Using Tobacco: 11; Age Quit Using Tobacco: 53; packs per day: 1; Cigarettes Per Day: 5; Second Hand Exposure: No; Hx Alcohol Use: Yes Alcohol type: beer, wine and hard liquor Hx Substance Use: No Preferred Language: Persian Communication Ability: Effective Completion Manager Required: No Beliefs That Will Affect Care: None marital status: Current Living Situation: Spouse How many Children do You have: 3 Feels Safe at Home: Yes Safety Concerns: Feels Safe At This Time Assistive Devices: Oxygen - Continuous Allergies Allergies Allergy/AdvReac Type Severity Reaction Status Date / Time ibuprofen Allergy Intermediate Unknown Verified 10/19/22 15:56 NSAIDS (Non-Steroidal Allergy Intermediate Unknown Verified 10/19/22 15:56 Anti-Inflamma Sulfa (Sulfonamide Allergy Intermediate HIVES Verified 10/19/22 15:56 Antibiotics) adhesive Allergy Mild BANDAIDS Verified 10/19/22 15:56 SKIN ABRASION ketorolac [From Toradol] Allergy Mild Unknown Verified 10/19/22 15:56 adhesive tape Allergy Unknown Unknown Verified 10/19/22 15:56 tramadol Allergy Unknown . Verified 10/19/22 15:56 rosuvastatin [From Crestor] AdvReac Intermediate Weakness Verified 10/19/22 15:56 prednisone AdvReac Mild Patient Verified 10/19/22 15:56 Reports Contraindication in Kidney Failure meperidine AdvReac Unknown MOOD SWINGS Verified 10/19/22 15:56 Home Meds Home Medications Medication Instructions Recorded Confirmed albuterol sulfate 90 mcg/actuation 2 puff inhalation Q4H PRN 03/10/22 10/19/22 aerosol inhaler cough,SOB or wheezing ascorbic acid (vitamin C) 500 mg 500 mg PO DAILY 03/10/22 10/19/22 tablet (Vitamin C) aspirin 81 mg tablet,delayed 81 mg PO QAM 03/10/22 10/19/22 release calcium carbonate 600 mg-vitamin 1 tab PO DAILY 03/10/22 10/19/22 D3 10 mcg (400 unit) tablet (Calcium 600 + D(3)) cyanocobalamin (vitamin B-12) 1,000 mcg IM MONTHLY 03/10/22 10/19/22 1,000 mcg/mL injection solution evolocumab 420 mg/3.5 mL 420 mg subcut MONTHLY 03/10/22 10/19/22 subcutaneous wearable injector (Repatha Pushtronex) fluticasone propionate 110 2 puff inhalation [facility] 03/10/22 10/19/22 mcg/actuation HFA aerosol inhaler (Flovent HFA) folic acid 1 mg tablet 1 mg PO QAM 03/10/22 10/19/22 ipratropium 0.5 mg-albuterol 3 mg 3 ml inhalation QID PRN Cough, 03/10/22 10/19/22 (2.5 mg base)/3 mL nebulization Shortness of Breath or Wheezing soln levothyroxine 75 mcg tablet 75 mcg PO DAILYBB 03/10/22 10/19/22 (Synthroid) lorazepam 0.5 mg tablet 0.5 mg PO DAILY PRN Anxiety 03/10/22 10/19/22 metoprolol succinate 25 mg 37.5 mg PO QAM 03/10/22 10/19/22 tablet,extended release 24 hr omeprazole 20 mg capsule,delayed 20 mg PO BID 03/10/22 10/19/22 release pregabalin 75 mg capsule 75 mg PO TID 03/10/22 10/19/22 tiotropium 2.5 mcg-olodaterol 2.5 2 puff inhalation QAM 03/10/22 10/19/22 mcg/actuation mist for inhalation (Stiolto Respimat) acetaminophen 325 mg tablet 325 mg PO Q6 PRN Fever Or Pain 10/19/22 10/19/22 cholecalciferol (vitamin D3) 25 50 mcg PO QAM 10/19/22 10/19/22 mcg (1,000 unit) tablet (Vitamin D3) duloxetine 30 mg capsule,delayed 30 mg PO QAM 10/19/22 10/19/22 release food supplemt, lactose-reduced 1 - 2 ea PO DAILY 10/19/22 10/19/22 methocarbamol 500 mg tablet 500 mg PO TID PRN muscle spasms 10/19/22 10/19/22 ondansetron HCl 4 mg tablet 4 mg PO Q8 PRN Nausea 10/19/22 10/19/22 potassium chloride 20 mEq/15 mL 20 meq PO QAM 10/19/22 10/19/22 oral liquid sacubitril 24 mg-valsartan 26 mg 1 tab PO BID 10/19/22 10/19/22 tablet (Entresto) spironolactone 25 mg tablet 12.5 mg PO QAM 10/19/22 10/19/22 Previous Rx's Medication Instructions Recorded dicyclomine 10 mg capsule 10 mg PO TID PRN Abdominal Pain 05/06/22 #30 caps midodrine 2.5 mg tablet 2.5 mg PO TID@0800,1200,1700 #90 05/06/22 tabs Results & Data (ED) Vital Signs Vital Signs - 24 hr 10/19/22 12:36 10/19/22 12:36 10/19/22 12:46 Temperature 37.1 C Temperature Source Oral Pulse Rate 113 H Pulse Rate [Right Finger] 112 H Respiratory Rate 21 Respiratory Effort / Characteristics Respiratory Depth Respiratory Pattern Blood Pressure [Right Arm] Blood Pressure Mean [Right Arm] Pulse Oximetry 96 96 Oxygen Delivery Method Nasal Cannula Nasal Cannula Nasal Cannula Oxygen Flow Rate 2 2 2 Fraction of Inspired Oxygen Sepsis Recent Fever Within 48 Hours Yes Sepsis New/Unexplained Change in Mental Status No Sepsis Action Taken by Nursing No Action Required Pulse Oximetry Post Tiitration 96 10/19/22 13:27 10/19/22 13:28 10/19/22 13:32 Temperature Temperature Source Pulse Rate Pulse Rate [Right Finger] 108 H 107 H Respiratory Rate 24 Respiratory Effort / Characteristics Spontaneous Respiratory Depth Respiratory Pattern Blood Pressure [Right Arm] 131/83 Blood Pressure Mean [Right Arm] 99 Pulse Oximetry 96 96 98 Oxygen Delivery Method Nasal Cannula Nasal Cannula Nasal Cannula Oxygen Flow Rate 2 2 3 Fraction of Inspired Oxygen Sepsis Recent Fever Within 48 Hours Sepsis New/Unexplained Change in Mental Status Sepsis Action Taken by Nursing Pulse Oximetry Post Tiitration 10/19/22 13:41 10/19/22 14:12 10/19/22 14:24 Temperature Temperature Source Pulse Rate 126 H Pulse Rate [Right Finger] 111 H 131 H Respiratory Rate 28 H Respiratory Effort / Characteristics Spontaneous Labored Respiratory Depth Normal Respiratory Pattern Tachypnea Blood Pressure [Right Arm] 138/109 H Blood Pressure Mean [Right Arm] 118 Pulse Oximetry 97 93 100 Oxygen Delivery Method Nasal Cannula Nebulizer Nasal Cannula Nebulizer Oxygen Flow Rate Fraction of Inspired Oxygen 30 Sepsis Recent Fever Within 48 Hours Sepsis New/Unexplained Change in Mental Status Sepsis Action Taken by Nursing Pulse Oximetry Post Tiitration 10/19/22 14:33 10/19/22 14:40 10/19/22 15:08 Temperature Temperature Source Pulse Rate Pulse Rate [Right Finger] 128 H 124 H 115 H Respiratory Rate Respiratory Effort / Characteristics Respiratory Depth Respiratory Pattern Blood Pressure [Right Arm] 113/41 L 77/63 L Blood Pressure Mean [Right Arm] 65 67 Pulse Oximetry 97 97 95 Oxygen Delivery Method Room Air BiPAP BiPAP Oxygen Flow Rate Fraction of Inspired Oxygen Sepsis Recent Fever Within 48 Hours Sepsis New/Unexplained Change in Mental Status Sepsis Action Taken by Nursing Pulse Oximetry Post Tiitration 10/19/22 15:12 Temperature Temperature Source Pulse Rate Pulse Rate [Right Finger] Respiratory Rate Respiratory Effort / Characteristics Respiratory Depth Respiratory Pattern Blood Pressure [Right Arm] 128/84 Blood Pressure Mean [Right Arm] 98 Pulse Oximetry Oxygen Delivery Method Oxygen Flow Rate Fraction of Inspired Oxygen Sepsis Recent Fever Within 48 Hours Sepsis New/Unexplained Change in Mental Status Sepsis Action Taken by Nursing Pulse Oximetry Post Tiitration Home Medications Current Medication List: was personally reviewed by me Laboratory Data Attestation: I reviewed the patient's lab results. Result diagrams: 10/21/22 06:50 10/21/22 06:50 Lab Results 10/19/22 10/19/22 10/19/22 Range/Units 11:23 12:54 13:30 WBC 10.05 (4.8-10.8) K/ul RBC 4.05 (3.93-5.22) M/uL Hgb 12.9 (12.0-16.0) g/dl Hct 37.7 (34.1-44.9) % MCV 93.1 (80.0-100.0) fL MCH 31.9 (25.0-34.0) pg MCHC 34.2 (32.0-36.0) g/dL RDW Std Deviation 49.3 H (36.4-46.3) fL RDW Coeff of Akiko 14.6 H (11.5-14.5) % Plt Count 222 (130-400) K/uL MPV 11.4 (9.4-12.3) fL Immature Gran % (Auto) 0.7 % Neut % (Auto) 79.8 % Lymph % (Auto) 9.9 % [place] % (Auto) 9.1 % Eos % (Auto) 0.1 % Baso % (Auto) 0.4 % Neut # (Auto) 8.03 H (1.4-6.5) K/uL Lymph # (Auto) 0.99 L (1.2-3.4) K/uL [place] # (Auto) 0.91 H (0.24-0.82) K/uL Eos # (Auto) 0.01 (0-0.50) K/uL Baso # (Auto) 0.04 (0-0.2) K/uL Immature Gran # (Auto) 0.07 H (0.00-0.02) K/uL PT 11.2 (9.0-12.0) Seconds INR 1.1 (0.9-1.1) APTT 33.9 H (21.0-31.0) Seconds PTT Ratio 1.2 VBG pH (7.36-7.41) VBG pCO2 (38-50) mmHg VBG pO2 mmHg VBG HCO3 mmol/L VBG O2 Saturation % VBG Base Excess mEq/L Sodium (136-145) mmol/L Potassium (3.5-5.1) mmol/L Chloride (98-107) mmol/L Carbon Dioxide (21-32) mmol/L Anion Gap (3-11) BUN (6-23) mg/dl Creatinine (0.6-1.2) mg/dl Est Cr Clr Drug Dosing ml/min Est GFR ( Amer) ml/min Est GFR (Non-Af Amer) ml/min BUN/Creatinine Ratio (10-20) Glucose (70-99(Fasting)) mg/dl Lactate (0.4-2.0) mmol/L Calcium (8.5-10.1) mg/dl Magnesium (1.7-2.4) mg/dl Total Bilirubin (0.2-1.0) mg/dl Direct Bilirubin (0-0.2) mg/dl AST (13-39) U/L ALT (7-52) U/L Alkaline Phosphatase (34-104) U/L Troponin I High Sens (0-14) pg/ml B-Natriuretic Peptide (0-100) pg/ml Total Protein (6.0-8.3) gm/dl Albumin (3.4-5.0) gm/dl Procalcitonin (0-0.5) ng/ml Nasal Screen MRSA (PCR) Negative (Negative) SARS-CoV-2 (PCR) (Negative) Influenza Type A (PCR) (Neg) Influenza Type B (PCR) (Neg) RSV (RT-PCR) (Neg) 10/19/22 10/19/22 10/19/22 Range/Units 13:30 13:30 13:30 WBC (4.8-10.8) K/ul RBC (3.93-5.22) M/uL Hgb (12.0-16.0) g/dl Hct (34.1-44.9) % MCV (80.0-100.0) fL MCH (25.0-34.0) pg MCHC (32.0-36.0) g/dL RDW Std Deviation (36.4-46.3) fL RDW Coeff of Akiko (11.5-14.5) % Plt Count (130-400) K/uL MPV (9.4-12.3) fL Immature Gran % (Auto) % Neut % (Auto) % Lymph % (Auto) % [place] % (Auto) % Eos % (Auto) % Baso % (Auto) % Neut # (Auto) (1.4-6.5) K/uL Lymph # (Auto) (1.2-3.4) K/uL [place] # (Auto) (0.24-0.82) K/uL Eos # (Auto) (0-0.50) K/uL Baso # (Auto) (0-0.2) K/uL Immature Gran # (Auto) (0.00-0.02) K/uL PT (9.0-12.0) Seconds INR (0.9-1.1) APTT (21.0-31.0) Seconds PTT Ratio VBG pH (7.36-7.41) VBG pCO2 (38-50) mmHg VBG pO2 mmHg VBG HCO3 mmol/L VBG O2 Saturation % VBG Base Excess mEq/L Sodium 138 (136-145) mmol/L Potassium 3.7 (3.5-5.1) mmol/L Chloride 106 (98-107) mmol/L Carbon Dioxide 22 (21-32) mmol/L Anion Gap 10 (3-11) BUN 14 (6-23) mg/dl Creatinine 1.03 (0.6-1.2) mg/dl Est Cr Clr Drug Dosing 52.2 ml/min Est GFR ( Amer) 69.4 ml/min Est GFR (Non-Af Amer) 59.9 ml/min BUN/Creatinine Ratio 13.6 (10-20) Glucose 129 H (70-99(Fasting)) mg/dl Lactate 1.3 (0.4-2.0) mmol/L Calcium 9.7 (8.5-10.1) mg/dl Magnesium 1.9 (1.7-2.4) mg/dl Total Bilirubin 0.8 (0.2-1.0) mg/dl Direct Bilirubin 0.1 (0-0.2) mg/dl AST 8 L (13-39) U/L ALT 4 L (7-52) U/L Alkaline Phosphatase 58 (34-104) U/L Troponin I High Sens 12.4 D (0-14) pg/ml B-Natriuretic Peptide (0-100) pg/ml Total Protein 7.6 (6.0-8.3) gm/dl Albumin 4.3 (3.4-5.0) gm/dl Procalcitonin 0.58 H (0-0.5) ng/ml Nasal Screen MRSA (PCR) (Negative) SARS-CoV-2 (PCR) (Negative) Influenza Type A (PCR) (Neg) Influenza Type B (PCR) (Neg) RSV (RT-PCR) (Neg) 10/19/22 10/19/22 10/19/22 Range/Units 13:41 13:45 13:45 WBC (4.8-10.8) K/ul RBC (3.93-5.22) M/uL Hgb (12.0-16.0) g/dl Hct (34.1-44.9) % MCV (80.0-100.0) fL MCH (25.0-34.0) pg MCHC (32.0-36.0) g/dL RDW Std Deviation (36.4-46.3) fL RDW Coeff of Akiko (11.5-14.5) % Plt Count (130-400) K/uL MPV (9.4-12.3) fL Immature Gran % (Auto) % Neut % (Auto) % Lymph % (Auto) % [place] % (Auto) % Eos % (Auto) % Baso % (Auto) % Neut # (Auto) (1.4-6.5) K/uL Lymph # (Auto) (1.2-3.4) K/uL [place] # (Auto) (0.24-0.82) K/uL Eos # (Auto) (0-0.50) K/uL Baso # (Auto) (0-0.2) K/uL Immature Gran # (Auto) (0.00-0.02) K/uL PT (9.0-12.0) Seconds INR (0.9-1.1) APTT (21.0-31.0) Seconds PTT Ratio VBG pH 7.37 (7.36-7.41) VBG pCO2 42 (38-50) mmHg VBG pO2 81 mmHg VBG HCO3 24 mmol/L VBG O2 Saturation 97.9 % VBG Base Excess -1.1 mEq/L Sodium (136-145) mmol/L Potassium (3.5-5.1) mmol/L Chloride (98-107) mmol/L Carbon Dioxide (21-32) mmol/L Anion Gap (3-11) BUN (6-23) mg/dl Creatinine (0.6-1.2) mg/dl Est Cr Clr Drug Dosing ml/min Est GFR ( Amer) ml/min Est GFR (Non-Af Amer) ml/min BUN/Creatinine Ratio (10-20) Glucose (70-99(Fasting)) mg/dl Lactate (0.4-2.0) mmol/L Calcium (8.5-10.1) mg/dl Magnesium (1.7-2.4) mg/dl Total Bilirubin (0.2-1.0) mg/dl Direct Bilirubin (0-0.2) mg/dl AST (13-39) U/L ALT (7-52) U/L Alkaline Phosphatase (34-104) U/L Troponin I High Sens (0-14) pg/ml B-Natriuretic Peptide 123 H (0-100) pg/ml Total Protein (6.0-8.3) gm/dl Albumin (3.4-5.0) gm/dl Procalcitonin (0-0.5) ng/ml Nasal Screen MRSA (PCR) (Negative) SARS-CoV-2 (PCR) NEGATIVE (Negative) Influenza Type A (PCR) Negative (Neg) Influenza Type B (PCR) Negative (Neg) RSV (RT-PCR) Negative (Neg) Administered Medications Albuterol (Albut/Ipratrop 3mg/0.5mg Neb 3 Ml Vial) 3 ml NEB QIDR PRN; Protocol PRN Reason: Shortness Of Breath Or Wheezing Stop: 11/18/22 18:59 Last Admin: 10/21/22 13:37 Dose: 3 ml Documented By: [facility] Ascorbic Acid (Ascorbic Acid 500 Mg Tab) 500 mg PO DAILY JUDITH Stop: 11/19/22 08:59 Last Admin: 10/21/22 08:23 Dose: 500 mg Documented By: Admin: 10/20/22 08:08 Dose: Not Given Documented By: [facility] Aspirin (Aspirin 81 Mg Ectab) 81 mg PO QAM JUDITH Stop: 11/19/22 08:59 Last Admin: 10/21/22 08:23 Dose: 81 mg Documented By: Admin: 10/20/22 08:01 Dose: 81 mg Documented By: [facility] Calcium/Vitamin D (Calcium 600mg + Vit D 400 Iu Tab) 1 tab PO DAILY JUDITH Stop: 11/19/22 08:59 Last Admin: 10/21/22 08:27 Dose: Not Given Documented By: Admin: 10/20/22 08:11 Dose: Not Given Documented By: [facility] Duloxetine HCl (Duloxetine Hcl 30 Mg Cap) 30 mg PO 1300 JUDITH Stop: 11/19/22 12:59 Last Admin: 10/21/22 12:24 Dose: 30 mg Documented By: Admin: 10/20/22 11:57 Dose: 30 mg Documented By: BIMAL Enoxaparin Sodium (Enoxaparin Inj 40 Mg/0.4 Ml Syr) 40 mg SQ Q24H JUDITH Stop: 11/18/22 17:59 Last Admin: 10/20/22 16:55 Dose: 40 mg Documented By: Admin: 10/19/22 18:01 Dose: 40 mg Documented By: BIMAL Fluticasone Furoate (Fluticasone Furoate 200mcg 14 Puffs/Inhaler) 1 puffs INH DAILY JUDITH Stop: 11/19/22 08:59 Last Admin: 10/21/22 08:24 Dose: 1 puffs Documented By: Admin: 10/20/22 08:01 Dose: 1 puffs Documented By: BIMAL Folic Acid (Folic Acid 1 Mg Tab) 1 mg PO QAM JUDITH Stop: 11/19/22 08:59 Last Admin: 10/21/22 08:23 Dose: 1 mg Documented By: Admin: 10/20/22 08:03 Dose: 1 mg Documented By: BIMAL Methylprednisolone 40 mg/ (Syringe) 0.64 mls @ 1.5 mls/min IV BID JUDITH Stop: 11/18/22 20:59 Last Admin: 10/21/22 08:23 Dose: 1.5 mls/min Documented By: Admin: 10/20/22 19:49 Dose: 1.5 mls/min Documented By: Admin: 10/20/22 09:27 Dose: 1.5 mls/min Documented By: Admin: 10/19/22 20:09 Dose: 1.5 mls/min Documented By: YEIMI Ceftriaxone Sodium 2,000 mg/ (Dextrose) 70 mls @ 100 mls/hr IV Q24H JUDITH; Protocol Stop: 10/25/22 20:41 Last Infusion: 10/20/22 21:03 Dose: 0 mls/hr Documented By: Admin: 10/20/22 19:48 Dose: 100 mls/hr Documented By: Infusion: 10/19/22 20:25 Dose: 0 mls/hr Documented By: Admin: 10/19/22 19:43 Dose: 100 mls/hr Documented By: YEIMI Levothyroxine Sodium (Levothyroxine Sodium 75 Mcg Tablet) 75 mcg PO 0400 [facility] Stop: 11/20/22 03:59 Last Admin: 10/21/22 03:49 Dose: 75 mcg Documented By: CECILIA Lorazepam (Lorazepam 0.5 Mg Tab) 0.5 mg PO DAILY PRN PRN Reason: Anxiety Stop: 11/18/22 18:50 Last Admin: 10/20/22 23:34 Dose: 0.5 mg Documented By: Admin: 10/19/22 23:37 Dose: 0.5 mg Documented By: YEIMI Methocarbamol (Methocarbamol 500 Mg Tablet) 500 mg PO DAILY@0600,1300,2000 [facility] Stop: 11/19/22 19:59 Last Admin: 10/21/22 12:25 Dose: 500 mg Documented By: Admin: 10/21/22 06:04 Dose: 500 mg Documented By: Admin: 10/20/22 19:50 Dose: 500 mg Documented By: CECILIA Metoprolol Succinate (Metoprolol Succ 25mg Ext Rel Tab) 37.5 mg PO 0600 [facility] Stop: 11/19/22 07:14 Last Admin: 10/21/22 06:03 Dose: 37.5 mg Documented By: Admin: 10/20/22 08:00 Dose: 37.5 mg Documented By: BIMAL Midodrine (Midodrine Hcl 2.5 Mg Tab) 5 mg PO TID@0800,1200,1700 [facility] Stop: 11/19/22 11:59 Last Admin: 10/21/22 16:18 Dose: 5 mg Documented By: Admin: 10/21/22 11:20 Dose: 5 mg Documented By: Admin: 10/21/22 08:23 Dose: 5 mg Documented By: Admin: 10/20/22 16:54 Dose: 5 mg Documented By: Admin: 10/20/22 11:57 Dose: 5 mg Documented By: BIMAL Ondansetron HCl (Ondansetron Inj 2 Mg/Ml 2 Ml Vial) 4 mg IV Q6H PRN PRN Reason: Nausea Stop: 11/18/22 17:16 Last Admin: 10/21/22 08:29 Dose: 4 mg Documented By: Admin: 10/20/22 19:44 Dose: 4 mg Documented By: Admin: 10/19/22 22:14 Dose: 4 mg Documented By: YEIMI Pantoprazole Sodium (Pantoprazole 40 Mg Tab) 40 mg PO BID@1300,1999 [facility] Stop: 11/19/22 12:59 Last Admin: 10/21/22 12:25 Dose: 40 mg Documented By: Admin: 10/20/22 19:50 Dose: 40 mg Documented By: Admin: 10/20/22 11:57 Dose: 40 mg Documented By: JUDSON Potassium Chloride (Potassium Chloride 20 Meq/15 Ml Udc) 20 meq PO QAM JUDITH Stop: 11/19/22 08:59 Last Admin: 10/21/22 08:26 Dose: Not Given Documented By: Admin: 10/20/22 08:03 Dose: 20 meq Documented By: JUDSON Pregabalin (Pregabalin 75 Mg Cap) 75 mg PO 0600,1300,1999 [facility] Stop: 11/19/22 07:14 Last Admin: 10/21/22 12:24 Dose: 75 mg Documented By: Admin: 10/21/22 06:03 Dose: 75 mg Documented By: Admin: 10/20/22 19:49 Dose: 75 mg Documented By: Admin: 10/20/22 11:57 Dose: 75 mg Documented By: Admin: 10/20/22 08:01 Dose: 75 mg Documented By: JUDSON Sacubitril/Valsartan (Valsartan/Sacubitril 26/24mg Tab) 1 tab PO 599,1999 [facility] Stop: 11/19/22 07:14 Last Admin: 10/21/22 06:04 Dose: 1 tab Documented By: Admin: 10/20/22 19:50 Dose: 1 tab Documented By: Admin: 10/20/22 07:55 Dose: 1 tab Documented By: JUDSON Spironolactone (Spironolactone 12.5 Mg Tab) 12.5 mg PO 0600 [facility] Stop: 11/19/22 07:14 Last Admin: 10/21/22 06:04 Dose: 12.5 mg Documented By: Admin: 10/20/22 07:56 Dose: 12.5 mg Documented By: JUDSON Umeclidinium/Vilanterol (Umeclidinium/Vilanterol 62.5/25mcg 7 Puffs/Inhaler) 1 puffs INH QAM JUDITH Stop: 11/19/22 08:59 Last Admin: 10/21/22 08:24 Dose: 1 puffs Documented By: Admin: 10/20/22 08:01 Dose: 1 puffs Documented By: BIMAL Vitamin D (Cholecalciferol 1,000 Units 25 Mcg Tab) 2,000 units PO QAM JUDITH Stop: 11/19/22 08:59 Last Admin: 10/21/22 08:26 Dose: Not Given Documented By: Admin: 10/20/22 08:02 Dose: 2,000 units Documented By: BIMAL Discontinued Medications Albuterol (Albut/Ipratrop 3mg/0.5mg Neb 3 Ml Vial) 12 ml NEB ONE ONE; Protocol Stop: 10/19/22 13:25 Last Admin: 10/19/22 13:29 Dose: 12 ml Documented By: JACINDA Albuterol (Albut/Ipratrop 3mg/0.5mg Neb 3 Ml Vial) 6 ml INH ONE STA Stop: 10/19/22 14:53 Last Admin: 10/19/22 15:24 Dose: Not Given Documented By: JACINDA Albuterol (Albut/Ipratrop 3mg/0.5mg Neb 3 Ml Vial) 3 ml NEB QIDR JUDITH; Protocol Stop: 11/18/22 18:59 Last Admin: 10/21/22 05:11 Dose: 3 ml Documented By: Admin: 10/20/22 17:36 Dose: 3 ml Documented By: Admin: 10/20/22 14:44 Dose: 3 ml Documented By: Admin: 10/20/22 11:04 Dose: 3 ml Documented By: Admin: 10/20/22 05:42 Dose: 3 ml Documented By: Admin: 10/19/22 19:12 Dose: 3 ml Documented By: CS Cefepime HCl (Maxipime) 2,000 mg in 20 mls @ 5 mls/min IV NOW STA; Protocol Stop: 10/19/22 13:21 Last Admin: 10/19/22 13:36 Dose: 5 mls/min Documented By: MES Magnesium Sulfate/Dextrose (Magnesium Sulfate / D5w) 1 gm in 100 mls @ 200 mls/hr IV NOW STA Stop: 10/19/22 15:22 Last Infusion: 10/19/22 15:44 Dose: 0 mls/hr Documented By: Admin: 10/19/22 14:59 Dose: 200 mls/hr Documented By: SANDIP Doxycycline Hyclate 100 mg/ (Dextrose) 110 mls @ 50 mls/hr IV Q12H JUDITH Stop: 10/26/22 19:59 Last Infusion: 10/21/22 10:34 Dose: 0 mls/hr Documented By: Admin: 10/21/22 08:23 Dose: 50 mls/hr Documented By: Infusion: 10/21/22 00:21 Dose: 0 mls/hr Documented By: Admin: 10/20/22 20:57 Dose: 50 mls/hr Documented By: Infusion: 10/20/22 11:56 Dose: 0 mls/hr Documented By: Admin: 10/20/22 09:27 Dose: 50 mls/hr Documented By: Infusion: 10/19/22 23:16 Dose: 0 mls/hr Documented By: Infusion: 10/19/22 21:00 Dose: 50 mls/hr Documented By: Infusion: 10/19/22 20:24 Dose: 0 mls/hr Documented By: Admin: 10/19/22 20:19 Dose: 50 mls/hr Documented By: YEIMI Levothyroxine Sodium (Levothyroxine Sodium 75 Mcg Tablet) 75 mcg PO DAILYBB JUDITH Stop: 11/19/22 06:29 Last Admin: 10/20/22 06:10 Dose: 75 mcg Documented By: YEIMI Lorazepam (Lorazepam 1 Mg/1 Ml Syr) 0.25 mg IV NOW STA; Protocol Stop: 10/19/22 14:09 Last Admin: 10/19/22 14:14 Dose: 0.25 mg Documented By: ESTEFANÍA Methocarbamol (Methocarbamol 500 Mg Tablet) 500 mg PO TID PRN PRN Reason: muscle spasms Stop: 11/18/22 18:50 Last Admin: 10/20/22 13:18 Dose: 500 mg Documented By: Admin: 10/20/22 10:25 Dose: 500 mg Documented By: Admin: 10/19/22 20:08 Dose: 500 mg Documented By: YEIMI Methylprednisolone (Methylprednisolone 125 Mg/2 Ml Vial) 60 mg IV NOW STA Stop: 10/19/22 13:23 Last Admin: 10/19/22 13:36 Dose: 60 mg Documented By: SANDIP Methylprednisolone (Methylprednisolone 125 Mg/2 Ml Vial) 60 mg IV NOW STA Stop: 10/19/22 14:53 Last Admin: 10/19/22 14:58 Dose: 60 mg Documented By: SANDIP Midodrine (Midodrine Hcl 2.5 Mg Tab) 2.5 mg PO TID@0800,1200,1700 JUDITH Stop: 11/18/22 18:54 Last Admin: 10/20/22 07:56 Dose: 2.5 mg Documented By: Admin: 10/19/22 19:50 Dose: 2.5 mg Documented By: YEIMI Pantoprazole Sodium (Pantoprazole 40 Mg Tab) 40 mg PO BID JUDITH Stop: 11/18/22 20:59 Last Admin: 10/19/22 20:09 Dose: 40 mg Documented By: YEIMI Pregabalin (Pregabalin 75 Mg Cap) 75 mg PO TID JUDITH Stop: 11/18/22 18:54 Last Admin: 10/19/22 21:36 Dose: 75 mg Documented By: Admin: 10/19/22 19:49 Dose: 75 mg Documented By: YEIMI Sacubitril/Valsartan (Valsartan/Sacubitril 26/24mg Tab) 1 tab PO BID JUDITH Stop: 11/18/22 20:59 Last Admin: 10/19/22 20:09 Dose: 1 tab Documented By: YEIMI Imaging Data Radiologist's Impression: Chest X-Ray 10/19/22 13:18 XR chest 1V portable HISTORY: 57 years-old Female Sepsis acute sepsis with shortness of breath COMPARISON: Chest radiograph 05/23/2022 TECHNIQUE: AP view of the chest FINDINGS: Cardiomediastinal and hilar silhouettes are within normal limits. Biapical pleural-parenchymal scarring with postoperative changes of the left lung apex. No pneumothorax, pleural effusion, airspace consolidation or overt pulmonary edema. Emphysema with chronic interstitial coarsening. Degenerative changes of the shoulders and spine. IMPRESSION: 1. No acute process. 2. Emphysema with chronic interstitial coarsening. Emphysema without acute process. ACT 112: Negative or not required by law. The above report was generated using voice recognition software. It may contain grammatical, syntax or spelling errors. Electronically signed by: Silas Santos M.D. 10/19/2022 3:00 PM Discharge Plan Visit Data Chief Complaint: Shortness of Breath/Dyspnea Stated Complaint: SOB ED Provider: Jerel Naqvi Discharge Problem: COPD exacerbation, Hypoxia Patient Disposition: Admitted As Inpatient Discharge Instructions Interventions: ED Discharge Assessment Last Done: 10/19/22 16:18
[2022-10-19] MEDS ORDERED: CEFEPIME 2,000 MG/20 ML VIAL IV STA (13:18)
[2022-10-19] MEDS ORDERED: ALBUT/IPRATROP 3MG/0.5MG NEB 3 ML VIAL NEB STA (13:22)
[2022-10-19] MEDS ORDERED: methylPREDNISolone 125 MG/2 ML VIAL IV STA ×2 (13:22→14:52)
[2022-10-19] MEDS ORDERED: ALBUT/IPRATROP 3MG/0.5MG NEB 3 ML VIAL NEB ONE (13:24)
[2022-10-19 13:31] LABS: Basophils # (auto) 0.04 K/uL (0-0.2); Basophils % (auto) 0.4 %; Eosinophils # (auto) 0.01 K/uL (0-0.50); Eosinophils % (auto) 0.1 %; Hematocrit (blood only) 37.7 % (34.1-44.9); Hemoglobin 12.9 g/dl (12.0-16.0); Immature Granulocytes # (auto) 0.07 K/uL (0.00-0.02); Immature Granulocytes % (auto) 0.7 %; Lymphocytes # (auto) 0.99 K/uL (1.2-3.4); Lymphocytes % (auto) 9.9 %; Mean Corpuscular Hemoglobin 31.9 pg (25.0-34.0); Mean Corpuscular Hgb Conc 34.2 g/dL (32.0-36.0); Mean Corpuscular Volume 93.1 fL (80.0-100.0); Mean Platelet Volume 11.4 fL (9.4-12.3); Monocytes # (auto) 0.91 K/uL (0.24-0.82); Monocytes % (auto) 9.1 %; Neutrophils # (auto) 8.03 K/uL (1.4-6.5); Neutrophils % (auto) 79.8 %; Platelet Count 222 K/uL (130-400); RDW Coefficient of Variation 14.6 % (11.5-14.5); RDW Standard Deviation 49.3 fL (36.4-46.3); Red Blood Count 4.05 M/uL (3.93-5.22); White Blood Count 10.05 K/ul (4.8-10.8)
[2022-10-19 13:54] LABS: INR 1.1 (0.9-1.1); Partial Thromboplastin Ratio 1.2; Partial Thromboplastin Time 33.9 Seconds (21.0-31.0); Prothrombin Time 11.2 Seconds (9.0-12.0)
[2022-10-19 14:01] LABS: Albumin Level 4.3 gm/dl (3.4-5.0); BUN Creatinine Ratio 13.6 (10-20); Bilirubin Direct 0.1 mg/dl (0-0.2); Bilirubin,Total 0.8 mg/dl (0.2-1.0); Calcium 9.7 mg/dl (8.5-10.1); Creatinine Clr Calc Pharmacy 52.2 ml/min; Est GFR (African American) 69.4 ml/min; Est GFR (Non-African American) 59.9 ml/min; Magnesium 1.9 mg/dl (1.7-2.4); Potassium 3.7 mmol/L (3.5-5.1); Total Protein 7.6 gm/dl (6.0-8.3)
[2022-10-19 14:08] LABS: Troponin I High Sensitivity 12.4 pg/ml (0-14)
[2022-10-19] MEDS ORDERED: LORazepam 1 MG/1 ML SYR IV STA (14:08)
[2022-10-19 14:12] LABS: Base Excess VBG -1.1 mEq/L; HCO3 VBG 24 mmol/L; Oxygen Saturation VBG 97.9 %; PCO2 VBG 42 mmHg (38-50); PO2 VBG 81 mmHg; pH VBG 7.37 (7.36-7.41)
[2022-10-19 14:33] LABS: Influenza A virus by PCR Negative (Neg); Influenza B virus by PCR Negative (Neg); RSV by PCR Negative (Neg); SARS CoV2 RNA(COVID-19) Ceph NEGATIVE (Negative)
[2022-10-19] MEDS ORDERED: MAGNESIUM SULFATE / D5W 1 GM/100 ML BAG IV STA (14:53)
--- NOTE | 2022-10-19 15:01 | XRay Report ---
XR chest 1V portable HISTORY: 57 years-old Female Sepsis acute sepsis with shortness of breath COMPARISON: Chest radiograph 05/23/2022 TECHNIQUE: AP view of the chest FINDINGS: Cardiomediastinal and hilar silhouettes are within normal limits. Biapical pleural-parenchymal scarri ng with postoperative changes of the left lung apex. No pneumothorax, pleural effusion, airspace cons olidation or overt pulmonary edema. Emphysema with chronic interstitial coarsening. Degenerative luevano ges of the shoulders and spine. IMPRESSION: 1. No acute process. 2. Emphysema with chronic interstitial coarsening. Emphysema without acute process. ACT 112: Negative or not required by law. The above report was generated using voice recognition software. It may contain grammatical, syntax o r spelling errors. Electronically signed by: Silas Santos M.D. 10/19/2022 3:00 PM
[2022-10-19] MEDS: ALBUT/IPRATROP 3MG/0.5MG NEB 3 ML VIAL INH STA ×2 (15:22→15:24)
--- NOTE | 2022-10-19 15:38 | History & Physical Report ---
Date of Service October 19, 2022 Assessment & Plan (1) Acute on chronic respiratory failure with hypoxia: (2) Hypotension: (3) Anxiety: (4) HFrEF (heart failure with reduced ejection fraction): (5) CKD (chronic kidney disease), stage III: (6) Chronic pain: (7) Statin intolerance: Plan This is a 57-year-old female with PMH of chronic hypoxic respiratory failure on 2 L nasal cannula O2 secondary to COPD, combined systolic and diastolic heart failure, CAD, hypotension on midodrine, CKD 3, chronic neuropathic pain, tobacco use disorder, mood disorder and other medical problems listed below who presents with worsening shortness of breath and was found to have acute on chronic respiratory failure in the setting of COPD exacerbation and possible pneumonia. Acute on chronic respiratory failure with hypoxia COPD exacerbation Possible pneumonia Hypoxic prior to arrival on normal 2 L nasal cannula, saturating at 95% on BiPAP comfortably Likely viral etiology given sick family members however due to patient's intermittent fevers and elevated procalcitonin, will cover empirically with Rocephin and Doxy for now Chest x-ray without acute process. Evidence of chronic emphysema Cepheid panel with negative COVID, flu A/B and RSV Given IV steroids and nebulizer treatments in the ED. Continue with IV Solu- Medrol, DuoNebs QIDR, wean off of BiPAP as tolerated HFrEF Appears euvolemic on exam Continue spironolactone, Entresto, Toprol, low-sodium diet Hypotension BP normotensive currently. Continue midodrine Anxiety Continue duloxetine, lorazepam as needed CKD 3 Creatinine of 1 today (baseline ~0.8). Continue to monitor daily BMP Chronic pain Continue home regimen of methocarbamol, Lyrica DVT Ppx: SQ lovenox Code status: FULL PCP: Sascha Dispo: Admitted to PCU Patient seen in collaboration with Dr. Ugalde. Please see addendum. History of Present Illness Chief Complaint: Shortness of breath Primary Care Provider: Gillian Caicedo MD This is a 57-year-old female with PMH of chronic hypoxic respiratory failure on 2 L nasal cannula O2 secondary to COPD, combined systolic and diastolic heart failure, CAD, hypotension on midodrine, CKD 3, chronic neuropathic pain, tobacco use disorder, mood disorder and other medical problems listed below who presents with worsening shortness of breath. Has been requiring nebulizers at night that is gotten worse over the past 3 days. Has been around her grandson who had RSV and had a cold. States that she has had a fever of 101 the past 2 days and cough has productive green sputum. Endorsing chest tightness and decreased appetite. No headache, lightheadedness, chest pain, nausea, vomiting, abdominal pain, dysuria, diarrhea or constipation. Taking medications as prescribed. Allergies Allergy/AdvReac Type Severity Reaction Status Date / Time ibuprofen Allergy Intermediate Unknown Verified 10/19/22 15:56 NSAIDS (Non-Steroidal Allergy Intermediate Unknown Verified 10/19/22 15:56 Anti-Inflamma Sulfa (Sulfonamide Allergy Intermediate HIVES Verified 10/19/22 15:56 Antibiotics) adhesive Allergy Mild BANDAIDS Verified 10/19/22 15:56 SKIN ABRASION ketorolac [From Toradol] Allergy Mild Unknown Verified 10/19/22 15:56 adhesive tape Allergy Unknown Unknown Verified 10/19/22 15:56 tramadol Allergy Unknown . Verified 10/19/22 15:56 rosuvastatin [From Crestor] AdvReac Intermediate Weakness Verified 10/19/22 15:56 prednisone AdvReac Mild Patient Verified 10/19/22 15:56 Reports Contraindication in Kidney Failure meperidine AdvReac Unknown MOOD SWINGS Verified 10/19/22 15:56 Home Medications Medication Instructions Recorded Confirmed Type albuterol sulfate 90 mcg/actuation 2 puff inhalation Q4H PRN 03/10/22 10/19/22 History aerosol inhaler cough,SOB or wheezing ascorbic acid (vitamin C) 500 mg 500 mg PO DAILY 03/10/22 10/19/22 History tablet (Vitamin C) aspirin 81 mg tablet,delayed 81 mg PO QAM 03/10/22 10/19/22 History release calcium carbonate 600 mg-vitamin 1 tab PO DAILY 03/10/22 10/19/22 History D3 10 mcg (400 unit) tablet (Calcium 600 + D(3)) cyanocobalamin (vitamin B-12) 1,000 mcg IM MONTHLY 03/10/22 10/19/22 History 1,000 mcg/mL injection solution evolocumab 420 mg/3.5 mL 420 mg subcut MONTHLY 03/10/22 10/19/22 History subcutaneous wearable injector (Repatha Pushtronex) fluticasone propionate 110 2 puff inhalation AMHS 03/10/22 10/19/22 History mcg/actuation HFA aerosol inhaler (Flovent HFA) folic acid 1 mg tablet 1 mg PO QAM 03/10/22 10/19/22 History ipratropium 0.5 mg-albuterol 3 mg 3 ml inhalation QID PRN Cough, 03/10/22 10/19/22 History (2.5 mg base)/3 mL nebulization Shortness of Breath or Wheezing soln levothyroxine 75 mcg tablet 75 mcg PO DAILYBB 03/10/22 10/19/22 History (Synthroid) lorazepam 0.5 mg tablet 0.5 mg PO DAILY PRN Anxiety 03/10/22 10/19/22 History metoprolol succinate 25 mg 37.5 mg PO QAM 03/10/22 10/19/22 History tablet,extended release 24 hr omeprazole 20 mg capsule,delayed 20 mg PO BID 03/10/22 10/19/22 History release pregabalin 75 mg capsule 75 mg PO TID 03/10/22 10/19/22 History tiotropium 2.5 mcg-olodaterol 2.5 2 puff inhalation QAM 03/10/22 10/19/22 History mcg/actuation mist for inhalation (Stiolto Respimat) dicyclomine 10 mg capsule 10 mg PO TID PRN Abdominal Pain 05/06/22 10/19/22 Rx #30 caps midodrine 2.5 mg tablet 2.5 mg PO TID@0800,1200,1700 #90 05/06/22 10/19/22 Rx tabs acetaminophen 325 mg tablet 325 mg PO Q6 PRN Fever Or Pain 10/19/22 10/19/22 History cholecalciferol (vitamin D3) 25 50 mcg PO QAM 10/19/22 10/19/22 History mcg (1,000 unit) tablet (Vitamin D3) duloxetine 30 mg capsule,delayed 30 mg PO QAM 10/19/22 10/19/22 History release food supplemt, lactose-reduced 1 - 2 ea PO DAILY 10/19/22 10/19/22 History methocarbamol 500 mg tablet 500 mg PO TID PRN muscle spasms 10/19/22 10/19/22 History ondansetron HCl 4 mg tablet 4 mg PO Q8 PRN Nausea 10/19/22 10/19/22 History potassium chloride 20 mEq/15 mL 20 meq PO QAM 10/19/22 10/19/22 History oral liquid sacubitril 24 mg-valsartan 26 mg 1 tab PO BID 10/19/22 10/19/22 History tablet (Entresto) spironolactone 25 mg tablet 12.5 mg PO QAM 10/19/22 10/19/22 History Past Med/Surg History Medical History (Updated 10/19/22 @ 21:27 by Gianna Peguero PA-C) Acute respiratory failure with hypoxia UNRULY (acute kidney injury) Anxiety CAD (coronary artery disease) Cavernous hemangioma of brain Chronic pain CKD (chronic kidney disease), stage III Gastroparesis HFrEF (heart failure with reduced ejection fraction) Hx of bronchitis Hypokalemia CAN NOT TOLERATE PO POTASSIUM PILLS DUE TO GASTROPARESIS Myocardial infarction 2010 - CHEST PAIN -[facility] ER AND HAD HEART CATH WITH ONE STENT (BARE METAL) FOLLOW WITH [facility] Neurofibromatosis Pneumothorax AGE 24 - SURGERY TO REPAIR THE LEFT SIDE AND CHEMICAL TREATMENT ON THE RIGHT SIDE AT [facility] 2013 ONLY HAD ONE -- ADMITTED TO [facility] --- METABOLIC RELATED ---- NO MEDICATION Shortness of breath Statin intolerance Volume overload Surgical History History of hernia repair UMBILICAL Hx of cardiac cath 2010 HEART CATH WITH ONE STENT Hx of section X2 Hx of colonoscopy Hx of vaginal surgery 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 Family History Father Lung disease Severe emphysema, pneumothorax Social History Smoking Status: Former smoker Tobacco Type: Cigarettes Age Started Using Tobacco: 11; Age Quit Using Tobacco: 53; packs per day: 1; Cigarettes Per Day: 5; Second Hand Exposure: No; Hx Alcohol Use: Yes Alcohol type: beer, wine and hard liquor Hx Substance Use: No Preferred Language: Indonesian Communication Ability: Effective Pony Edger Required: No Beliefs That Will Affect Care: None marital status: Current Living Situation: Spouse How many Children do You have: 3 Feels Safe at Home: Yes Safety Concerns: Feels Safe At This Time Assistive Devices: Oxygen - Continuous Review of Systems Review of Systems: At least ten systems reviewed and negative except as noted in the HPI. Physical Exam Physical Exam: General Appearance: WD/WN, vitals as above, NAD, sitting up in bed with BiPAP mask on, minimal shortness of breath noted and able to talk comfortably Head: normocephalic, atraumatic Eyes: normal inspection, PERRL, conjunctivae normal, anicteric sclerae ENT: external ear and nose normal, bipap mask Neck: normal visual inspection, trachea midline, no thyromegaly Respiratory: slightly increased respiratory effort,decreased breath sound bilaterally, no wheezing or rales. No accessory muscle use Cardiovascular: tachycardic rate, regular rhythm, no murmur, normal peripheral pulses, no BLE edema. Vessels: no JVD Chest: normal inspection of chest Abdomen/GI: normal bowel sounds, soft, nontender, no hepatosplenomegaly Extremities/Musculoskeletal: no cyanosis or clubbing, extremities motor strength 5/5 Neurologic: PERRL, EOMI, accommodation nl, no face palsy, no dysarthria, CN's II-XI intact bilaterally and moves all extremities Psychiatric: A+Ox3, euthymic affect Skin: no rashes, normal color, warm/dry Results & Data Results & Data ([facility]) Vital Signs (Past 12 Hours) Vital Signs Temp Pulse Pulse Resp BP Pulse Ox O2 Del Method 10/19/22 15:12 128/84 10/19/22 15:08 115 H 77/63 L 95 BiPAP 10/19/22 14:40 124 H 97 10/19/22 14:33 128 H 113/41 L 97 Room Air, BiPAP 10/19/22 14:24 126 H 28 H 100 10/19/22 14:12 131 H 93 Nasal Cannula, Nebulizer 10/19/22 13:41 111 H 138/109 H 97 Nasal Cannula, Nebulizer 10/19/22 13:32 107 H 24 98 Nasal Cannula 10/19/22 13:28 96 Nasal Cannula 10/19/22 13:27 108 H 131/83 96 Nasal Cannula 10/19/22 12:46 112 H 96 Nasal Cannula 10/19/22 12:36 Nasal Cannula 10/19/22 12:36 37.1 C 113 H 21 96 Nasal Cannula O2 Flow Rate FiO2 10/19/22 15:12 10/19/22 15:08 10/19/22 14:40 10/19/22 14:33 10/19/22 14:24 30 10/19/22 14:12 10/19/22 13:41 10/19/22 13:32 3 10/19/22 13:28 2 10/19/22 13:27 2 10/19/22 12:46 2 10/19/22 12:36 2 10/19/22 12:36 2 Laboratory Results Short CBC 10/19/22 Range/Units 12:54 WBC 10.05 (4.8-10.8) K/ul Hgb 12.9 (12.0-16.0) g/dl Hct 37.7 (34.1-44.9) % Plt Count 222 (130-400) K/uL BMP 10/19/22 13:30 Sodium 138 Potassium 3.7 Chloride 106 Carbon Dioxide 22 BUN 14 Creatinine 1.03 Glucose 129 H Calcium 9.7 Liver Function 10/19/22 Range/Units 13:30 Total Bilirubin 0.8 (0.2-1.0) mg/dl Direct Bilirubin 0.1 (0-0.2) mg/dl AST 8 L (13-39) U/L ALT 4 L (7-52) U/L Alkaline Phosphatase 58 (34-104) U/L Albumin 4.3 (3.4-5.0) gm/dl Diagnostic Findings Chest X-Ray 10/19/22 13:18 XR chest 1V portable HISTORY: 57 years-old Female Sepsis acute sepsis with shortness of breath COMPARISON: Chest radiograph 05/23/2022 TECHNIQUE: AP view of the chest FINDINGS: Cardiomediastinal and hilar silhouettes are within normal limits. Biapical pleural-parenchymal scarring with postoperative changes of the left lung apex. No pneumothorax, pleural effusion, airspace consolidation or overt pulmonary edema. Emphysema with chronic interstitial coarsening. Degenerative changes of the shoulders and spine. IMPRESSION: 1. No acute process. 2. Emphysema with chronic interstitial coarsening. Emphysema without acute process. ACT 112: Negative or not required by law. The above report was generated using voice recognition software. It may contain grammatical, syntax or spelling errors. Electronically signed by: Silas Santos M.D. 10/19/2022 3:00 PM Code Status & VTE Plan VTE Prophylaxis Plan VTE Prophylaxis will be ordered: Yes Supervising Physician Co-Signing Physician Notes Date of Service: October 19, 2022 Attending addendum: The patient was seen and examined in the emergency room She has been complaining of increasing shortness of breath with fever for the last 2 days Has greenish phlegm but the same time Denies any chest pain and/or palpitation. No abdominal pain nausea no vomiti ng. 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 No focal sensory or motor deficit appreciated Labs, EKG, and chest x-ray reviewed Has COPD exacerbation likely viral Procalcitonin minimally elevated No pneumonia on chest x-ray Likely has bronchitis and urine is not showing any typical infection Will start intravenous ceftriaxone and doxycycline IV prednisone Agree with assessment plan as outlined above by Gianna Peguero PA-C. DR Melissa Ugalde
--- NOTE | 2022-10-19 16:29 | Communication Note ---
Date of Service: October 19, 2022 Attending addendum: The patient was seen and examined in the emergency room She has been complaining of increasing shortness of breath with fever for the last 2 days Has greenish phlegm but the same time Denies any chest pain and/or palpitation. No abdominal pain nausea no vomiting. 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 No focal sensory or motor deficit appreciated Labs, EKG, and chest x-ray reviewed Has COPD exacerbation likely viral Procalcitonin minimally elevated No pneumonia on chest x-ray Likely has bronchitis and urine is not showing any typical infection Will start intravenous ceftriaxone and doxycycline IV prednisone Agree with assessment plan as outlined above by Gianna Peguero PA-C. DR Melissa Ugalde
[2022-10-19 16:53] LABS: Base Excess ABG -1.9 mEq/L (-9-1.8); HCO3 ABG 22 mmol/L (19-24); Oxygen Saturation ABG 99.5 % (90-95); PCO2 ABG 35 mmHg (35-46); PO2 ABG 105 mmHg (80-95); pH ABG 7.41 (7.35-7.45)
[2022-10-19 17:06] LABS: Allen Test POS (Pos)
[2022-10-19] MEDS ORDERED: POLYETHYLENE (MIRALAX) 17 GM PACK PO PRN (17:17)
--- NOTE | 2022-10-19 17:57 | Electrocardiogram Report ---
Test Reason : Blood Pressure : / mmHG Vent. Rate : 115 BPM Atrial Rate : 115 BPM P-R Int : 128 ms QRS Dur : 090 ms QT Int : 454 ms P-R-T Axes : 090 085 079 degrees QTc Int : 628 ms Poor data quality, interpretation may be adversely affected Sinus tachycardia with occasional Premature ventricular complexes Nonspecific ST and T wave abnormality Prolonged QT Right atrial enlargement Abnormal ECG When compared with ECG of 23-MAY-2022 19:54, No significant change was found Confirmed by Jesus Garzon ([id number]) on 10/19/2022 5:56:52 PM Referred By: Confirmed By:Connor Garzon
[2022-10-19] MEDS: ENOXAPARIN INJ 40 MG/0.4 ML SYR SQ SCH (18:01)
[2022-10-19] MEDS ORDERED: ALBUTEROL HFA 8 GM INHALER INH PRN (18:51)
[2022-10-19] MEDS: ALBUT/IPRATROP 3MG/0.5MG NEB 3 ML VIAL NEB SCH (19:12)
[2022-10-19] MEDS: cefTRIAXone SODIUM 2,000 MG in DEXTROSE 5% 50 ML IV SCH (19:43)
[2022-10-19] MEDS: PREGABALIN 75 MG CAP PO SCH ×2 (19:49→21:36)
[2022-10-19] MEDS: MIDODRINE HCL 2.5 MG TAB PO SCH (19:50)
[2022-10-19] MEDS: METHOCARBAMOL 500 MG TABLET PO PRN (20:08)
[2022-10-19] MEDS: methylPREDNISolone 40 MG in SYRINGE 0 ML IV SCH (20:09)
[2022-10-19] MEDS: DOXYCYCLINE HYCLATE 100 MG in DEXTROSE 5% 100 ML IV SCH (20:19)
[2022-10-19] MEDS ORDERED: VALSARTAN/SACUBITRIL 26/24MG TAB PO SCH (21:00)
[2022-10-19] MEDS ORDERED: PANTOprazole 40 MG TAB PO SCH (21:00)
[2022-10-19] MEDS: ONDANSETRON INJ 2 MG/ML 2 ML VIAL IV PRN (22:14)
[2022-10-19] MEDS: LORazepam 0.5 MG TAB PO PRN (23:37)
[2022-10-20] MEDS: ALBUT/IPRATROP 3MG/0.5MG NEB 3 ML VIAL NEB SCH ×4 (05:42→17:36)
[2022-10-20] MEDS ORDERED: LEVOTHYROXINE SODIUM 75 MCG TABLET PO SCH (06:30)
[2022-10-20] MEDS ORDERED: Nursing to Pharmacy Communication SCH (06:30)
[2022-10-20] MEDS ORDERED: DULoxetine HCL 30 MG CAP PO SCH ×2 (07:15→09:00)
[2022-10-20 07:39] LABS: Hematocrit (blood only) 37.7 % (34.1-44.9); Mean Corpuscular Hemoglobin 31.4 pg (25.0-34.0); Mean Corpuscular Hgb Conc 34.5 g/dL (32.0-36.0); Mean Corpuscular Volume 91.1 fL (80.0-100.0); Platelet Count 269 K/uL (130-400); RDW Coefficient of Variation 14.4 % (11.5-14.5); RDW Standard Deviation 48.4 fL (36.4-46.3); Red Blood Count 4.14 M/uL (3.93-5.22); White Blood Count 7.45 K/ul (4.8-10.8)
[2022-10-20] MEDS: VALSARTAN/SACUBITRIL 26/24MG TAB PO SCH ×2 (07:55→19:50)
[2022-10-20] MEDS: MIDODRINE HCL 2.5 MG TAB PO SCH ×3 (07:56→16:54)
[2022-10-20] MEDS: SPIRONOLACTONE 12.5 MG TAB PO SCH (07:56)
[2022-10-20 07:58] LABS: BUN Creatinine Ratio 20.4 (10-20); Calcium 9.8 mg/dl (8.5-10.1); Creatinine Clr Calc Pharmacy 58.7 ml/min; Est GFR (African American) 78.5 ml/min; Est GFR (Non-African American) 67.7 ml/min; Magnesium 2.4 mg/dl (1.7-2.4); Potassium 3.8 mmol/L (3.5-5.1)
[2022-10-20] MEDS: METOPROLOL SUCC 25MG EXT REL TAB PO SCH (08:00)
[2022-10-20] MEDS: FLUTICASONE FUROATE 200MCG 14 PUFFS/INHALER INH SCH (08:01)
[2022-10-20] MEDS: UMECLIDINIUM/VILANTEROL 62.5/25MCG 7 PUFFS/INHALER INH SCH (08:01)
[2022-10-20] MEDS: PREGABALIN 75 MG CAP PO SCH ×3 (08:01→19:49)
[2022-10-20] MEDS: ASPIRIN 81 MG ECTAB PO SCH (08:01)
[2022-10-20] MEDS: CHOLECALCIFEROL 1,000 UNITS 25 MCG TAB PO SCH (08:02)
[2022-10-20] MEDS: FOLIC ACID 1 MG TAB PO SCH (08:03)
[2022-10-20] MEDS: POTASSIUM CHLORIDE 20 MEQ/15 ML UDC PO SCH (08:03)
[2022-10-20] MEDS: ASCORBIC ACID 500 MG TAB PO SCH (08:08)
[2022-10-20] MEDS: CALCIUM 600MG + VIT D 400 IU TAB PO SCH (08:11)
[2022-10-20] MEDS ORDERED: SPIRONOLACTONE 12.5 MG TAB PO SCH (09:00)
[2022-10-20] MEDS ORDERED: FOOD SUPPLEMT LACTOSE REDUCED PO SCH (09:00)
[2022-10-20] MEDS ORDERED: METOPROLOL SUCC 25MG EXT REL TAB PO SCH (09:00)
[2022-10-20] MEDS: DOXYCYCLINE HYCLATE 100 MG in DEXTROSE 5% 100 ML IV SCH ×2 (09:27→20:57)
[2022-10-20] MEDS: methylPREDNISolone 40 MG in SYRINGE 0 ML IV SCH ×2 (09:27→19:49)
[2022-10-20] MEDS: METHOCARBAMOL 500 MG TABLET PO PRN ×2 (10:25→13:18)
[2022-10-20] MEDS: DULoxetine HCL 30 MG CAP PO SCH (11:57)
[2022-10-20] MEDS: PANTOprazole 40 MG TAB PO SCH ×2 (11:57→19:50)
[2022-10-20 12:09] LABS: Appearance Urine Clear (Clear); Bacteria Urine Automated Negative (Negative); Bilirubin Urine Negative (Negative); Blood Urine Negative (Negative); Color Urine Yellow; Epithelial Cell Urine Auto >30 /lpf (0-5); Glucose Urine UA Negative (Negative); Ketones Urine 1+ (Negative); Leukocyte Esterase Urine 2+ (Negative); Nitrite Urine Negative (Negative); Protein Urine 1+ (Negative); RBC Urine Automated 0-4 /hpf (0-4); Urobilinogen Urine Negative (Negative); pH Urine 5.5 (4.5-7.5)
--- NOTE | 2022-10-20 15:16 | Hospitalist Progress Note ---
Date of Service October 20, 2022 Assessment & Plan (1) Acute on chronic respiratory failure with hypoxia: (2) Hypotension: (3) Anxiety: (4) HFrEF (heart failure with reduced ejection fraction): (5) CKD (chronic kidney disease), stage III: (6) Chronic pain: (7) Statin intolerance: Plan This is a 57-year-old female with PMH of chronic hypoxic respiratory failure on 2 L nasal cannula O2 secondary to COPD, combined systolic and diastolic heart failure, CAD, hypotension on midodrine, CKD 3, chronic neuropathic pain, tobacco use disorder, mood disorder and other medical problems listed below who presents with worsening shortness of breath and was found to have acute on chronic respiratory failure in the setting of COPD exacerbation and possible pneumonia. Acute on chronic respiratory failure with hypoxia COPD exacerbation Possible pneumonia Hypoxic prior to arrival on normal 2 L nasal cannula, saturating at 95% on BiPAP comfortably Likely viral etiology given sick family members however due to patient's intermittent fevers and elevated procalcitonin, will cover empirically with Rocephin and Doxy for now Chest x-ray without acute process. Evidence of chronic emphysema Cepheid panel with negative COVID, flu A/B and RSV Given IV steroids and nebulizer treatments in the ED. Continue with IV Solu- Medrol, DuoNebs QIDR, wean off of BiPAP as tolerated Clinically much better Maintaining normal saturation with 3 L of oxygen Cough is improved and is conversing normally We will continue current antibiotics and management HFrEF Appears euvolemic on exam Continue spironolactone, Entresto, Toprol, low-sodium diet No signs and or symptoms of fluid overload Hypotension BP normotensive currently. Continue midodrine Anxiety Continue duloxetine, lorazepam as needed CKD 3 Creatinine of 1 today (baseline ~0.8). Continue to monitor daily BMP Chronic pain Continue home regimen of methocarbamol, Lyrica DVT Ppx: SQ lovenox Code status: FULL PCP: Sascha Dispo: Admitted to PCU We will get PT and OT evaluation prior to discharge Admission and Anticipated Discharge Date Admission Date: October 19, 2022 Subjective 10/20/2022 The patient was seen and examined in telemetry unit She has been feeling much better today Breathing is better and conversing normally ,denies any other significant symptoms Review of Systems Review of Systems: All systems reviewed and are unremarkable except as noted below Respiratory: Minimal cough and minimal shortness of breath at rest Physical Exam Physical Exam: Lying in bed comfortably Constitutional: well developed, well nourished and + ill appearing Eyes: PERRL, conjunctivae normal, anicteric sclerae ENMT: external ear and nose normal, oropharynx normal Neck: trachea midline, no thyromegaly Respiratory: + respiratory distress (Minimal distress at rest) Auscultation: + diminished lung sounds; no crackles and no wheezes Cardiovascular: Rate/Rhythm: regular rate and regular rhythm; not tachycardic Heart Sounds: normal S1, normal S2 and + murmur Extremities: no edema Gastrointestinal (Abdomen): Inspection/Auscultation: abdomen not distended Percussion/Palpation: abdomen soft; abdomen nontender Musculoskeletal: No acute arthritis in any joint Neurologic: normal touch/pain/proprioception and moves all extremities; no focal motor deficits Psychiatric: A+Ox3, euthymic affect Lymphatic: no cervical or axillary lymphadenopathy Results & Data Results & Data ([facility]) Vital Signs (Past 12 Hours) Vital Signs Temp Pulse Pulse Resp BP Pulse Ox Pulse Ox 10/20/22 14:44 95 H 18 95 10/20/22 12:10 36.5 C 99 H 16 115/63 96 10/20/22 08:00 10/20/22 11:04 102 H 20 95 10/20/22 08:00 96 10/20/22 08:00 96 10/20/22 07:00 36.6 C 100 H 16 124/63 96 10/20/22 07:00 115 H 10/20/22 05:44 113 H 19 97 10/20/22 05:42 113 H 19 97 O2 Del Method O2 Del Method O2 Flow Rate FiO2 10/20/22 14:44 Nasal Cannula 3 10/20/22 12:10 Nasal Cannula 3 10/20/22 08:00 Nasal Cannula 3 10/20/22 11:04 Nasal Cannula 3 10/20/22 08:00 Nasal Cannula 4 10/20/22 08:00 BiPAP 10/20/22 07:00 BiPAP 10/20/22 07:00 10/20/22 05:44 25 10/20/22 05:42 BiPAP 25 Laboratory Results Short CBC 10/20/22 Range/Units 06:52 WBC 7.45 (4.8-10.8) K/ul Hgb 13.0 (12.0-16.0) g/dl Hct 37.7 (34.1-44.9) % Plt Count 269 (130-400) K/uL BMP 10/20/22 06:52 Sodium 137 Potassium 3.8 Chloride 105 Carbon Dioxide 21 BUN 19 Creatinine 0.93 Glucose 132 H Calcium 9.8 Urine 10/20/22 Range/Units 10:30 Urine Color Yellow Urine Appearance Clear (Clear) Urine pH 5.5 (4.5-7.5) Ur Specific [place] 1.020 (1.000-1.030) Urine Protein 1+ H (Negative) Urine Glucose (UA) Negative (Negative) Medications Administered Current Inpatient Medications Acetaminophen (Acetaminophen 325 Mg Tab) 650 mg PO Q4H PRN PRN Reason: Pain or Fever Stop: 11/18/22 17:16 Albuterol (Albut/Ipratrop 3mg/0.5mg Neb 3 Ml Vial) 3 ml NEB QIDR [facility]; Protocol Stop: 11/18/22 18:59 Last Admin: 10/20/22 14:44 Dose: 3 ml Albuterol (Albuterol Hfa 8 Gm Inhaler) 2 puffs INH Q4H PRN PRN Reason: cough,SOB or wheezing Stop: 11/18/22 18:50 Ascorbic Acid (Ascorbic Acid 500 Mg Tab) 500 mg PO DAILY [facility] Stop: 11/19/22 08:59 Last Admin: 10/20/22 08:08 Dose: Not Given Aspirin (Aspirin 81 Mg Ectab) 81 mg PO QAM [facility] Stop: 11/19/22 08:59 Last Admin: 10/20/22 08:01 Dose: 81 mg Calcium/Vitamin D (Calcium 600mg + Vit D 400 Iu Tab) 1 tab PO DAILY [facility] Stop: 11/19/22 08:59 Last Admin: 10/20/22 08:11 Dose: Not Given Dicyclomine HCl (Dicyclomine Hcl 10 Mg Cap) 10 mg PO TID PRN PRN Reason: Abdominal Pain Stop: 11/18/22 18:50 Duloxetine HCl (Duloxetine Hcl 30 Mg Cap) 30 mg PO 1300 [facility] Stop: 11/19/22 12:59 Last Admin: 10/20/22 11:57 Dose: 30 mg Enoxaparin Sodium (Enoxaparin Inj 40 Mg/0.4 Ml Syr) 40 mg SQ Q24H [facility] Stop: 11/18/22 17:59 Last Admin: 10/19/22 18:01 Dose: 40 mg Fluticasone Furoate (Fluticasone Furoate 200mcg 14 Puffs/Inhaler) 1 puffs INH DAILY [facility] Stop: 11/19/22 08:59 Last Admin: 10/20/22 08:01 Dose: 1 puffs Folic Acid (Folic Acid 1 Mg Tab) 1 mg PO QAM [facility] Stop: 11/19/22 08:59 Last Admin: 10/20/22 08:03 Dose: 1 mg Methylprednisolone 40 mg/ (Syringe) 0.64 mls @ 1.5 mls/min IV BID [facility] Stop: 11/18/22 20:59 Last Admin: 10/20/22 09:27 Dose: 1.5 mls/min Ceftriaxone Sodium 2,000 mg/ (Dextrose) 70 mls @ 100 mls/hr IV Q24H [facility]; Pro tocol Stop: 10/25/22 20:41 Last Infusion: 10/19/22 20:25 Dose: Infused Doxycycline Hyclate 100 mg/ (Dextrose) 110 mls @ 50 mls/hr IV Q12H [facility] Stop: 10/26/22 19:59 Last Infusion: 10/20/22 11:56 Dose: Infused Levothyroxine Sodium (Levothyroxine Sodium 75 Mcg Tablet) 75 mcg PO 0400 [facility] Stop: 11/20/22 03:59 Lorazepam (Lorazepam 0.5 Mg Tab) 0.5 mg PO DAILY PRN PRN Reason: Anxiety Stop: 11/18/22 18:50 Last Admin: 10/19/22 23:37 Dose: 0.5 mg Methocarbamol (Methocarbamol 500 Mg Tablet) 500 mg PO TID [facility] Stop: 11/19/22 20:59 Metoprolol Succinate (Metoprolol Succ 25mg Ext Rel Tab) 37.5 mg PO 0600 [facility] Stop: 11/19/22 07:14 Last Admin: 10/20/22 08:00 Dose: 37.5 mg Midodrine (Midodrine Hcl 2.5 Mg Tab) 5 mg PO TID@0800,1200,1700 [facility] Stop: 11/19/22 11:59 Last Admin: 10/20/22 11:57 Dose: 5 mg Ondansetron HCl (Ondansetron Inj 2 Mg/Ml 2 Ml Vial) 4 mg IV Q6H PRN PRN Reason: Nausea Stop: 11/18/22 17:16 Last Admin: 10/19/22 22:14 Dose: 4 mg Pantoprazole Sodium (Pantoprazole 40 Mg Tab) 40 mg PO BID@1300,1999 [facility] Stop: 11/19/22 12:59 Last Admin: 10/20/22 11:57 Dose: 40 mg Polyethylene Glycol (Polyethylene (Miralax) 17 Gm Pack) 17 gm PO DAILY PRN PRN Reason: Constipation Stop: 11/18/22 17:16 Potassium Chloride (Potassium Chloride 20 Meq/15 Ml Udc) [facility] [place]: 11/19/22 08:59 Last Admin: 10/20/22 08:03 Dose: 20 meq Pregabalin (Pregabalin 75 Mg Cap) 75 mg PO 0600,1300,1999 [facility] Stop: 11/19/22 07:14 Last Admin: 10/20/22 11:57 Dose: 75 mg Sacubitril/Valsartan (Valsartan/Sacubitril 26/24mg Tab) 1 tab PO 06,1999 [facility] Stop: 11/19/22 07:14 Last Admin: 10/20/22 07:55 Dose: 1 tab Spironolactone (Spironolactone 12.5 Mg Tab) 12.5 mg PO 0600 [facility] Stop: 11/19/22 07:14 Last Admin: 10/20/22 07:56 Dose: 12.5 mg Umeclidinium/Vilanterol (Umeclidinium/Vilanterol 62.5/25mcg 7 Puffs/Inhaler) [address] [facility] Stop: 11/19/22 08:59 Last Admin: 10/20/22 08:01 Dose: 1 puffs Vitamin D (Cholecalciferol 1,000 Units 25 Mcg Tab) 2,000 units PO QAM [facility] Stop: 11/19/22 08:59 Last Admin: 10/20/22 08:02 Dose: 2,000 units
[2022-10-20] MEDS: ENOXAPARIN INJ 40 MG/0.4 ML SYR SQ SCH (16:55)
[2022-10-20] MEDS: ONDANSETRON INJ 2 MG/ML 2 ML VIAL IV PRN (19:44)
[2022-10-20] MEDS: cefTRIAXone SODIUM 2,000 MG in DEXTROSE 5% 50 ML IV SCH (19:48)
[2022-10-20] MEDS: METHOCARBAMOL 500 MG TABLET PO SCH (19:50)
[2022-10-20] MEDS: LORazepam 0.5 MG TAB PO PRN (23:34)
[2022-10-21] MEDS: LEVOTHYROXINE SODIUM 75 MCG TABLET PO SCH (03:49)
[2022-10-21] MEDS: ALBUT/IPRATROP 3MG/0.5MG NEB 3 ML VIAL NEB SCH (05:11)
[2022-10-21] MEDS ORDERED: METOPROLOL SUCC 25MG EXT REL TAB PO SCH (06:00)
[2022-10-21] MEDS: METOPROLOL SUCC 25MG EXT REL TAB PO SCH (06:03)
[2022-10-21] MEDS: PREGABALIN 75 MG CAP PO SCH ×3 (06:03→19:35)
[2022-10-21] MEDS: SPIRONOLACTONE 12.5 MG TAB PO SCH (06:04)
[2022-10-21] MEDS: VALSARTAN/SACUBITRIL 26/24MG TAB PO SCH ×2 (06:04→19:34)
[2022-10-21] MEDS: METHOCARBAMOL 500 MG TABLET PO SCH ×3 (06:04→19:35)
[2022-10-21 07:33] LABS: Basophils # (auto) 0.01 K/uL (0-0.2); Basophils % (auto) 0.1 %; Hematocrit (blood only) 33.2 % (34.1-44.9); Hemoglobin 11.4 g/dl (12.0-16.0); Immature Granulocytes # (auto) 0.06 K/uL (0.00-0.02); Immature Granulocytes % (auto) 0.8 %; Lymphocytes # (auto) 0.84 K/uL (1.2-3.4); Lymphocytes % (auto) 10.6 %; Mean Corpuscular Hemoglobin 31.2 pg (25.0-34.0); Mean Corpuscular Hgb Conc 34.3 g/dL (32.0-36.0); Mean Platelet Volume 10.1 fL (9.4-12.3); Monocytes # (auto) 0.32 K/uL (0.24-0.82); Neutrophils # (auto) 6.73 K/uL (1.4-6.5); Neutrophils % (auto) 84.5 %; Platelet Count 260 K/uL (130-400); RDW Coefficient of Variation 14.4 % (11.5-14.5); RDW Standard Deviation 48.6 fL (36.4-46.3); Red Blood Count 3.65 M/uL (3.93-5.22); White Blood Count 7.96 K/ul (4.8-10.8)
[2022-10-21 07:56] LABS: BUN Creatinine Ratio 23.3 (10-20); Creatinine Clr Calc Pharmacy 53.8 ml/min; Est GFR (African American) 69.4 ml/min; Est GFR (Non-African American) 59.9 ml/min; Magnesium 2.1 mg/dl (1.7-2.4); Potassium 4.2 mmol/L (3.5-5.1)
[2022-10-21] MEDS: FOLIC ACID 1 MG TAB PO SCH (08:23)
[2022-10-21] MEDS: MIDODRINE HCL 2.5 MG TAB PO SCH ×3 (08:23→16:18)
[2022-10-21] MEDS: methylPREDNISolone 40 MG in SYRINGE 0 ML IV SCH ×2 (08:23→21:31)
[2022-10-21] MEDS: ASPIRIN 81 MG ECTAB PO SCH (08:23)
[2022-10-21] MEDS: ASCORBIC ACID 500 MG TAB PO SCH (08:23)
[2022-10-21] MEDS: DOXYCYCLINE HYCLATE 100 MG in DEXTROSE 5% 100 ML IV SCH (08:23)
[2022-10-21] MEDS: FLUTICASONE FUROATE 200MCG 14 PUFFS/INHALER INH SCH (08:24)
[2022-10-21] MEDS: UMECLIDINIUM/VILANTEROL 62.5/25MCG 7 PUFFS/INHALER INH SCH (08:24)
[2022-10-21] MEDS: CHOLECALCIFEROL 1,000 UNITS 25 MCG TAB PO SCH (08:26)
[2022-10-21] MEDS: POTASSIUM CHLORIDE 20 MEQ/15 ML UDC PO SCH (08:26)
[2022-10-21] MEDS: CALCIUM 600MG + VIT D 400 IU TAB PO SCH (08:27)
[2022-10-21] MEDS: ONDANSETRON INJ 2 MG/ML 2 ML VIAL IV PRN ×2 (08:29→21:32)
[2022-10-21] MEDS: DULoxetine HCL 30 MG CAP PO SCH (12:24)
[2022-10-21] MEDS: PANTOprazole 40 MG TAB PO SCH ×2 (12:25→19:35)
--- NOTE | 2022-10-21 13:09 | Hospitalist Progress Note ---
Date of Service October 21, 2022 Assessment & Plan (1) Acute on chronic respiratory failure with hypoxia: (2) Hypotension: (3) Anxiety: (4) HFrEF (heart failure with reduced ejection fraction): (5) CKD (chronic kidney disease), stage III: (6) Chronic pain: (7) Statin intolerance: Plan This is a 57-year-old female with PMH of chronic hypoxic respiratory failure on 2 L nasal cannula O2 secondary to COPD, combined systolic and diastolic heart failure, CAD, hypotension on midodrine, CKD 3, chronic neuropathic pain, tobacco use disorder, mood disorder and other medical problems listed below who presents with worsening shortness of breath and was found to have acute on chronic respiratory failure in the setting of COPD exacerbation and possible pneumonia. Acute on chronic respiratory failure with hypoxia COPD exacerbation Possible pneumonia Hypoxic prior to arrival on normal 2 L nasal cannula, saturating at 95% on BiPAP comfortably Likely viral etiology given sick family members however due to patient's intermittent fevers and elevated procalcitonin, will cover empirically with Rocephin and Doxy for now Chest x-ray without acute process. Evidence of chronic emphysema Cepheid panel with negative COVID, flu A/B and RSV Given IV steroids and nebulizer treatments in the ED. Continue with IV Solu- Medrol, DuoNebs QIDR, wean off of BiPAP as tolerated Clinically much better Maintaining normal saturation with 3 L of oxygen Cough is improved and is conversing normally Clinically much better today We will get PT and OT evaluation HFrEF Appears euvolemic on exam Continue spironolactone, Entresto, Toprol, low-sodium diet No signs and or symptoms of fluid overload Hypotension BP normotensive currently. Continue midodrine Anxiety Continue duloxetine, lorazepam as needed CKD 3 Creatinine of 1 today (baseline ~0.8). Continue to monitor daily BMP Chronic pain Continue home regimen of methocarbamol, Lyrica DVT Ppx: SQ lovenox Code status: FULL PCP: Sascha Dispo: Admitted to PCU We will get PT and OT evaluation prior to discharge Not yet ready to be discharged Admission and Anticipated Discharge Date Admission Date: October 19, 2022 Subjective 10/20/2022 The patient was seen and examined in telemetry unit She has been feeling much better today Breathing is better and conversing normally ,denies any other significant symptoms 10/21/2022 The patient was seen and examined in telemetry unit She has been feeling much better today Still gets shortness of breath with minimal activity Denies any chest pain or palpitation Review of Systems Review of Systems: All systems reviewed and are unremarkable except as noted below Respiratory: Minimal cough and minimal shortness of breath at rest Physical Exam Physical Exam: Lying in bed comfortably Constitutional: well developed, well nourished and + ill appearing Eyes: PERRL, conjunctivae normal, anicteric sclerae ENMT: external ear and nose normal, oropharynx normal Neck: trachea midline, no thyromegaly Respiratory: + respiratory distress (Minimal distress at rest) Auscultation: + diminished lung sounds; no crackles and no wheezes Cardiovascular: Rate/Rhythm: regular rate and regular rhythm; not tachycardic Heart Sounds: normal S1, normal S2 and + murmur Extremities: no edema Gastrointestinal (Abdomen): Inspection/Auscultation: abdomen not distended Percussion/Palpation: abdomen soft; abdomen nontender Musculoskeletal: No acute arthritis involving any joint Neurologic: normal touch/pain/proprioception and moves all extremities; no focal motor deficits Psychiatric: A+Ox3, euthymic affect Lymphatic: no cervical or axillary lymphadenopathy Results & Data Results & Data ([facility]) Vital Signs (Past 12 Hours) Vital Signs Temp Pulse Pulse Resp BP Pulse Ox O2 Del Method 10/21/22 11:50 36.9 C 86 18 113/83 97 Nasal Cannula 10/21/22 09:14 75 10/21/22 08:00 Nasal Cannula 10/21/22 08:00 36.7 C 74 18 132/66 96 Nasal Cannula 10/21/22 05:59 122/70 10/21/22 03:40 75 16 97 10/21/22 05:12 88 18 96 Nasal Cannula 10/21/22 03:46 36.7 C 86 18 124/74 97 CPAP O2 Flow Rate 10/21/22 11:50 10/21/22 09:14 10/21/22 08:00 3 10/21/22 08:00 10/21/22 05:59 10/21/22 03:40 3 10/21/22 05:12 3 10/21/22 03:46 3 Laboratory Results Short CBC 10/21/22 Range/Units 06:50 WBC 7.96 (4.8-10.8) K/ul Hgb 11.4 L (12.0-16.0) g/dl Hct 33.2 L (34.1-44.9) % Plt Count 260 (130-400) K/uL BMP 10/21/22 06:50 Sodium 133 L Potassium 4.2 Chloride 103 Carbon Dioxide 24 BUN 24 H Creatinine 1.03 Glucose 152 H Calcium 9.0 Medications Administered Current Inpatient Medications Acetaminophen (Acetaminophen 325 Mg Tab) 650 mg PO Q4H PRN PRN Reason: Pain or Fever Stop: 11/18/22 17:16 Albuterol (Albuterol Hfa 8 Gm Inhaler) 2 puffs INH Q4H PRN PRN Reason: cough,SOB or wheezing Stop: 11/18/22 18:50 Albuterol (Albut/Ipratrop 3mg/0.5mg Neb 3 Ml Vial) 3 ml NEB QIDR PRN; Protocol PRN Reason: Shortness Of Breath Or Wheezing Stop: 11/18/22 18:59 Ascorbic Acid (Ascorbic Acid 500 Mg Tab) 500 mg PO DAILY [facility] Stop: 11/19/22 08:59 Last Admin: 10/21/22 08:23 Dose: 500 mg Aspirin (Aspirin 81 Mg Ectab) 81 mg PO QAM [facility] Stop: 11/19/22 08:59 Last Admin: 10/21/22 08:23 Dose: 81 mg Calcium/Vitamin D (Calcium 600mg + Vit D 400 Iu Tab) 1 tab PO DAILY [facility] Stop: 11/19/22 08:59 Last Admin: 10/21/22 08:27 Dose: Not Given Dicyclomine HCl (Dicyclomine Hcl 10 Mg Cap) 10 mg PO TID PRN PRN Reason: Abdominal Pain Stop: 11/18/22 18:50 Doxycycline Hyclate (Doxycycline Hyclate 100 Mg Cap) 100 mg PO BID [facility] Stop: 10/26/22 20:59 Duloxetine HCl (Duloxetine Hcl 30 Mg Cap) 30 mg PO 1300 [facility] Stop: 11/19/22 12:59 Last Admin: 10/21/22 12:24 Dose: 30 mg Enoxaparin Sodium (Enoxaparin Inj 40 Mg/0.4 Ml Syr) 40 mg SQ Q24H [facility] Stop: 11/18/22 17:59 Last Admin: 10/20/22 16:55 Dose: 40 mg Fluticasone Furoate (Fluticasone Furoate 200mcg 14 Puffs/Inhaler) 1 puffs INH DAILY [facility] Stop: 11/19/22 08:59 Last Admin: 10/21/22 08:24 Dose: 1 puffs Folic Acid (Folic Acid 1 Mg Tab) 1 mg PO QAM [facility] Stop: 11/19/22 08:59 Last Admin: 10/21/22 08:23 Dose: 1 mg Methylprednisolone 40 mg/ (Syringe) 0.64 mls @ 1.5 mls/min IV BID [facility] Stop: 11/18/22 20:59 Last Admin: 10/21/22 08:23 Dose: 1.5 mls/min Ceftriaxone Sodium 2,000 mg/ (Dextrose) 70 mls @ 100 mls/hr IV Q24H [facility]; Protocol Stop: 10/25/22 20:41 Last Infusion: 10/20/22 21:03 Dose: Infused Levothyroxine Sodium (Levothyroxine Sodium 75 Mcg Tablet) 75 mcg PO 0400 [facility] Stop: 11/20/22 03:59 Last Admin: 10/21/22 03:49 Dose: 75 mcg Lorazepam (Lorazepam 0.5 Mg Tab) 0.5 mg PO DAILY PRN PRN Reason: Anxiety Stop: 11/18/22 18:50 Last Admin: 10/20/22 23:34 Dose: 0.5 mg Methocarbamol (Methocarbamol 500 Mg Tablet) 500 mg PO DAILY@0600,1300,2000 [facility] Stop: 11/19/22 19:59 Last Admin: 10/21/22 12:25 Dose: 500 mg Metoprolol Succinate (Metoprolol Succ 25mg Ext Rel Tab) 37.5 mg PO 0600 [facility] Stop: 11/19/22 07:14 Last Admin: 10/21/22 06:03 Dose: 37.5 mg Midodrine (Midodrine Hcl 2.5 Mg Tab) 5 mg PO TID@0800,1200,1700 [facility] Stop: 11/19/22 11:59 Last Admin: 10/21/22 11:20 Dose: 5 mg Ondansetron HCl (Ondansetron Inj 2 Mg/Ml 2 Ml Vial) 4 mg IV Q6H PRN PRN Reason: Nausea Stop: 11/18/22 17:16 Last Admin: 10/21/22 08:29 Dose: 4 mg Pantoprazole Sodium (Pantoprazole 40 Mg Tab) 40 mg PO BID@1300,1999 [facility] Stop: 11/19/22 12:59 Last Admin: 10/21/22 12:25 Dose: 40 mg Polyethylene Glycol (Polyethylene (Miralax) 17 Gm Pack) 17 gm PO DAILY PRN PRN Reason: Constipation Stop: 11/18/22 17:16 Potassium Chloride (Potassium Chloride 20 Meq/15 Ml Udc) 20 meq PO QAM [facility] Stop: 11/19/22 08:59 Last Admin: 10/21/22 08:26 Dose: Not Given Pregabalin (Pregabalin 75 Mg Cap) 75 mg PO 0600,1299,1999 [facility] Stop: 11/19/22 07:14 Last Admin: 10/21/22 12:24 Dose: 75 mg Sacubitril/Valsartan (Valsartan/Sacubitril 26/24mg Tab) 1 tab PO 599,1999 [facility] Stop: 11/19/22 07:14 Last Admin: 10/21/22 06:04 Dose: 1 tab Spironolactone (Spironolactone 12.5 Mg Tab) 12.5 mg PO 0600 [facility] Stop: 11/19/22 07:14 Last Admin: 10/21/22 06:04 Dose: 12.5 mg Umeclidinium/Vilanterol (Umeclidinium/Vilanterol 62.5/25mcg 7 Puffs/Inhaler) 1 puffs INH QAM [facility] Stop: 11/19/22 08:59 Last Admin: 10/21/22 08:24 Dose: 1 puffs Vitamin D (Cholecalciferol 1,000 Units 25 Mcg Tab) 2,000 units PO QAM [facility] Stop: 11/19/22 08:59 Last Admin: 10/21/22 08:26 Dose: Not Given
[2022-10-21] MEDS: ALBUT/IPRATROP 3MG/0.5MG NEB 3 ML VIAL NEB PRN (13:37)
[2022-10-21] MEDS: ENOXAPARIN INJ 40 MG/0.4 ML SYR SQ SCH (17:08)
[2022-10-21] MEDS: cefTRIAXone SODIUM 2,000 MG in DEXTROSE 5% 50 ML IV SCH (19:37)
[2022-10-21] MEDS: LORazepam 0.5 MG TAB PO PRN (19:58)
[2022-10-21] MEDS ORDERED: DOXYCYCLINE HYCLATE 100 MG CAP PO SCH (21:00)
[2022-10-22] MEDS: LEVOTHYROXINE SODIUM 75 MCG TABLET PO SCH (03:05)
[2022-10-22] MEDS: ONDANSETRON INJ 2 MG/ML 2 ML VIAL IV PRN ×2 (03:12→14:42)
[2022-10-22] MEDS: ALBUT/IPRATROP 3MG/0.5MG NEB 3 ML VIAL NEB PRN ×2 (03:13→19:48)
[2022-10-22] MEDS: guaiFENesin SUGAR FREE 200 MG/10 ML UDC PO PRN (04:09)
[2022-10-22 06:00] LABS: Hemoglobin 11.8 g/dl (12.0-16.0); Immature Granulocytes # (auto) 0.05 K/uL (0.00-0.02); Immature Granulocytes % (auto) 0.8 %; Lymphocytes # (auto) 0.82 K/uL (1.2-3.4); Lymphocytes % (auto) 13.7 %; Mean Corpuscular Hemoglobin 31.4 pg (25.0-34.0); Mean Corpuscular Hgb Conc 34.7 g/dL (32.0-36.0); Mean Corpuscular Volume 90.4 fL (80.0-100.0); Mean Platelet Volume 9.9 fL (9.4-12.3); Monocytes # (auto) 0.22 K/uL (0.24-0.82); Monocytes % (auto) 3.7 %; Neutrophils # (auto) 4.89 K/uL (1.4-6.5); Neutrophils % (auto) 81.8 %; Platelet Count 275 K/uL (130-400); RDW Coefficient of Variation 13.5 % (11.5-14.5); RDW Standard Deviation 45.4 fL (36.4-46.3); Red Blood Count 3.76 M/uL (3.93-5.22); White Blood Count 5.98 K/ul (4.8-10.8)
[2022-10-22] MEDS: PREGABALIN 75 MG CAP PO SCH ×3 (06:02→19:49)
[2022-10-22] MEDS: VALSARTAN/SACUBITRIL 26/24MG TAB PO SCH ×2 (06:03→19:49)
[2022-10-22] MEDS: SPIRONOLACTONE 12.5 MG TAB PO SCH (06:04)
[2022-10-22] MEDS: METHOCARBAMOL 500 MG TABLET PO SCH ×3 (06:04→19:50)
[2022-10-22] MEDS: METOPROLOL SUCC 25MG EXT REL TAB PO SCH (06:06)
[2022-10-22] MEDS ORDERED: PROMETHAZINE HCL 6.25 MG in SODIUM CHLORIDE 0.9% 50 ML IV PRN (06:26)
[2022-10-22 06:37] LABS: BUN Creatinine Ratio 22.8 (10-20); Creatinine Clr Calc Pharmacy 60.6 ml/min; Est GFR (African American) 79.6 ml/min; Est GFR (Non-African American) 68.6 ml/min; Potassium 4.5 mmol/L (3.5-5.1)
[2022-10-22] MEDS: MIDODRINE HCL 2.5 MG TAB PO SCH ×3 (08:04→17:03)
[2022-10-22] MEDS: CHOLECALCIFEROL 1,000 UNITS 25 MCG TAB PO SCH (08:05)
[2022-10-22] MEDS: ASPIRIN 81 MG ECTAB PO SCH (08:05)
[2022-10-22] MEDS: FOLIC ACID 1 MG TAB PO SCH (08:05)
[2022-10-22] MEDS: DOXYCYCLINE HYCLATE 100 MG in DEXTROSE 5% 100 ML IV SCH ×2 (08:06→20:24)
[2022-10-22] MEDS: FLUTICASONE FUROATE 200MCG 14 PUFFS/INHALER INH SCH (08:06)
[2022-10-22] MEDS: CALCIUM 600MG + VIT D 400 IU TAB PO SCH (08:07)
[2022-10-22] MEDS: methylPREDNISolone 40 MG in SYRINGE 0 ML IV SCH (08:07)
[2022-10-22] MEDS: POTASSIUM CHLORIDE 20 MEQ/15 ML UDC PO SCH (08:07)
[2022-10-22] MEDS: ASCORBIC ACID 500 MG TAB PO SCH (08:07)
[2022-10-22] MEDS: UMECLIDINIUM/VILANTEROL 62.5/25MCG 7 PUFFS/INHALER INH SCH (08:07)
[2022-10-22] MEDS: LORazepam 0.5 MG TAB PO PRN (10:40)
[2022-10-22] MEDS: ADVANCED PROBIOTIC 1250 MG CAPSULE PO SCH (13:11)
[2022-10-22] MEDS: PANTOprazole 40 MG TAB PO SCH ×2 (13:11→19:49)
[2022-10-22] MEDS: DULoxetine HCL 30 MG CAP PO SCH (13:11)
--- NOTE | 2022-10-22 14:12 | Hospitalist Progress Note ---
Date of Service October 22, 2022 Assessment & Plan (1) Acute on chronic respiratory failure with hypoxia: (2) Hypotension: (3) Anxiety: (4) HFrEF (heart failure with reduced ejection fraction): (5) CKD (chronic kidney disease), stage III: (6) Chronic pain: (7) Statin intolerance: Plan 57-year-old female with PMH of chronic hypoxic respiratory failure on 2 L nasal cannula O2 secondary to COPD, combined systolic and diastolic heart failure, CAD, hypotension on midodrine, CKD 3, chronic neuropathic pain, tobacco use disorder (smoking since age 11, reports quitting spring), mood disorder presented 10/19 with worsening shortness of breath and was found to have acute on chronic respiratory failure in the setting of COPD exacerbation and possible pneumonia. She is being managed for the following: Acute on chronic respiratory failure with hypoxia COPD exacerbation Possible atypical pneumonia Hypoxic prior to arrival on normal 2 L nasal cannula Likely viral etiology (flu, rsv, covid neg at presenation) given sick family members however due to patient's h/o intermittent fevers and elevated procalcitonin at presentation, started empirically on Rocephin and Doxy for now Admitting Chest x-ray without acute process. Evidence of chronic emphysema Will continue w/ iv antibiotic, c/w nebs, Wean down solu medrol 10/19 BID to daily 10/22. Pt doesn't want to be on PO atb (d/t gi side effects in past w/ atb) and on PO steroid (d/t mood issues when on PO steroid in past) On exam, no wheeze, back to 2L O2 which is her baseline but reports being tachycardia and increased O2 req w/ minimal activity; PT/OT to continue, might benefit from SNF???. Cough is improved and is conversing normally Mild Hyponatremia: Likely 2/2 decrease appetite, will continue to monitor. HFrEF Appears euvolemic on exam Continue spironolactone, Entresto, Toprol, low-sodium diet No signs and or symptoms of fluid overload Hypotension BP normotensive currently. Continue midodrine Anxiety Continue duloxetine, lorazepam as needed CKD 3: Stable. BMP as needed. Chronic pain Continue home regimen of methocarbamol, Lyrica DVT Ppx: SQ lovenox Code status: FULL PCP: Sascha Dispo: Admitted to PCU, PT/OT to eval, likely will need SNF d/t ongoing weakness, CM to assist w/ DC plan. expect in 1-2 days if to placement. Pt not willing to take PO antibiotic and po steroid. Admission and Anticipated Discharge Date Admission Date: October 19, 2022 Subjective Patient seen and examined at bedside as a follow-up of acute on chronic respiratory failure with hypoxia likely secondary to exacerbation of her COPD. Patient was lying in bed, on 2 L nasal cannula oxygen, NAD, reports feeling tired with minimal activity and increasing need for oxygen/increased heart rate with any minimal activity. Discussed about possible transition of her IV antibiotic and IV steroid to p.o. forms, patient adamantly refuses taking them as p.o. as he had some GI side effect from p.o. antibiotic in the past and mood swings with p.o. steroid in the past. Patient has peripheral IV line issues, likely will benefit from ultrasound-guided line. Given patient's condition and possible need for physical therapy, patient might likely benefit from going to SNF. Patient reports decreasing appetite, had a bowel movement 1 day ago, reports intermittent nausea. On examination no wheezing, minimal cough at bedside exam, bilateral decreased breath sounds. Physical Exam Physical Exam: GENERAL: Alert and oriented x3. NAD, on 2L NC O2, appears ill/weak/frail. HEENT: No pallor, no icterus. Pupils equal, round and reactive to light. Oral mucosa moist. NECK: No JVD, no neck masses. HEART: S1 and S2 heard. Regular rate and rhythm. No murmur, no gallop. RESPIRATORY SYSTEM: Normal AP diameter. No accessory muscle use. No wheezing, no crackles. Decreased breath sounds b/l. ABDOMEN: Soft, bowel sounds present, nontender, no distention. CENTRAL NERVOUS SYSTEM: No facial droop. Speech is clear. Obeys simple commands. Moves extremities. EXTREMITIES: No edema, no erythema seen. Results & Data Results & Data ([facility]) Vital Signs (Past 12 Hours) Vital Signs Temp Pulse Pulse Resp BP BP Pulse Ox 10/22/22 12:00 36.7 C 79 18 142/63 H 97 10/22/22 10:36 94 10/22/22 10:00 81 10/22/22 08:00 10/22/22 07:57 36.8 C 80 18 142/63 H 96 10/22/22 06:00 80 138/90 10/22/22 03:14 79 18 97 10/22/22 02:57 37 C 76 18 154/85 H 96 O2 Del Method O2 Flow Rate 10/22/22 12:00 Nasal Cannula 10/22/22 10:36 10/22/22 10:00 10/22/22 08:00 Nasal Cannula 3 10/22/22 07:57 Nasal Cannula 10/22/22 06:00 10/22/22 03:14 Nasal Cannula 3 10/22/22 02:57 CPAP
[2022-10-22] MEDS: ENOXAPARIN INJ 40 MG/0.4 ML SYR SQ SCH (17:04)
[2022-10-22] MEDS ORDERED: LORazepam 0.5 MG TAB PO STA (19:20)
[2022-10-22] MEDS: cefTRIAXone SODIUM 2,000 MG in DEXTROSE 5% 50 ML IV SCH (19:46)
[2022-10-22] MEDS: DICYCLOMINE HCL 10 MG CAP PO PRN (22:42)
[2022-10-23] MEDS: LEVOTHYROXINE SODIUM 75 MCG TABLET PO SCH (04:06)
[2022-10-23] MEDS: LORazepam 0.5 MG TAB PO PRN (04:08)
[2022-10-23] MEDS: METHOCARBAMOL 500 MG TABLET PO SCH ×3 (05:16→19:09)
[2022-10-23] MEDS: PREGABALIN 75 MG CAP PO SCH ×3 (05:16→19:12)
[2022-10-23] MEDS: METOPROLOL SUCC 25MG EXT REL TAB PO SCH (05:17)
[2022-10-23] MEDS: VALSARTAN/SACUBITRIL 26/24MG TAB PO SCH ×2 (05:17→19:09)
[2022-10-23] MEDS: guaiFENesin SUGAR FREE 200 MG/10 ML UDC PO PRN (05:17)
[2022-10-23] MEDS: SPIRONOLACTONE 12.5 MG TAB PO SCH (05:18)
[2022-10-23 07:12] LABS: Hematocrit (blood only) 35.6 % (34.1-44.9); Hemoglobin 12.3 g/dl (12.0-16.0); Mean Corpuscular Hemoglobin 31.5 pg (25.0-34.0); Mean Corpuscular Hgb Conc 34.6 g/dL (32.0-36.0); Mean Platelet Volume 9.8 fL (9.4-12.3); Platelet Count 298 K/uL (130-400); RDW Coefficient of Variation 13.5 % (11.5-14.5); RDW Standard Deviation 45.2 fL (36.4-46.3); Red Blood Count 3.91 M/uL (3.93-5.22); White Blood Count 10.08 K/ul (4.8-10.8)
[2022-10-23 07:32] LABS: BUN Creatinine Ratio 19.8 (10-20); Calcium 8.7 mg/dl (8.5-10.1); Creatinine Clr Calc Pharmacy 59.1 ml/min; Est GFR (African American) 75.6 ml/min; Est GFR (Non-African American) 65.2 ml/min; Magnesium 1.8 mg/dl (1.7-2.4); Phosphorus 2.6 mg/dl (2.5-4.9); Potassium 4.3 mmol/L (3.5-5.1)
[2022-10-23] MEDS ORDERED: methylPREDNISolone 40 MG in SYRINGE 0 ML IV SCH (09:00)
[2022-10-23] MEDS: MIDODRINE HCL 2.5 MG TAB PO SCH ×3 (09:30→17:09)
[2022-10-23] MEDS: FLUTICASONE FUROATE 200MCG 14 PUFFS/INHALER INH SCH (09:31)
[2022-10-23] MEDS: ASPIRIN 81 MG ECTAB PO SCH (09:31)
[2022-10-23] MEDS: UMECLIDINIUM/VILANTEROL 62.5/25MCG 7 PUFFS/INHALER INH SCH (09:31)
[2022-10-23] MEDS: FOLIC ACID 1 MG TAB PO SCH (09:32)
[2022-10-23] MEDS: ASCORBIC ACID 500 MG TAB PO SCH (09:33)
[2022-10-23] MEDS: DICYCLOMINE HCL 10 MG CAP PO PRN (09:33)
[2022-10-23] MEDS: CHOLECALCIFEROL 1,000 UNITS 25 MCG TAB PO SCH (09:34)
[2022-10-23] MEDS: CALCIUM 600MG + VIT D 400 IU TAB PO SCH (09:34)
[2022-10-23] MEDS: ADVANCED PROBIOTIC 1250 MG CAPSULE PO SCH (09:35)
[2022-10-23] MEDS: POTASSIUM CHLORIDE 20 MEQ/15 ML UDC PO SCH (09:35)
[2022-10-23] MEDS: DOXYCYCLINE HYCLATE 100 MG in DEXTROSE 5% 100 ML IV SCH ×2 (09:35→21:11)
[2022-10-23] MEDS: ONDANSETRON INJ 2 MG/ML 2 ML VIAL IV PRN (09:38)
[2022-10-23] MEDS ORDERED: LORazepam 0.5 MG TAB PO STA (11:43)
[2022-10-23] MEDS: DULoxetine HCL 30 MG CAP PO SCH (11:49)
[2022-10-23] MEDS: PANTOprazole 40 MG TAB PO SCH ×2 (11:49→19:09)
--- NOTE | 2022-10-23 12:28 | Cardiology Consultation ---
Date of Consultation October 23, 2022 Assessment & Plan (1) Acute on chronic heart failure with reduced ejection fraction and diastolic dysfunction: (2) Acute on chronic respiratory failure with hypoxia: (3) Acute respiratory failure with hypoxia: (4) COPD exacerbation: (5) Prolonged QT interval: (6) Pericardial effusion: Plan 49-year-old female admitted with COPD exacerbation. No signs/symptoms of acute decompensated heart failure. Entresto recently restarted in early July due to decline in LV function per echocardiogram noted above. Echocardiogram also reported moderate anterior pericardial fusion at that time. Recommend repeat resting 2D transthoracic echocardiogram. No role for IV diuretic therapy currently. Continue current evidence-based heart failure therapy including Aldactone, beta-lynne, and Entresto. Reduce dose of midodrine to 2.5 mg 3 times daily. Management of COPD exacerbation/bronchitis as per internal medicine. History of Present Illness Reason for Consultation: Chronic heart failure, acute hypoxic respiratory failure Requesting Physician: Dr. Barrera Attending Physician: eRbecca Barrera MD History of Present Illness 49-year-old female presented to the emergency department 10/19/2022 secondary to cough and shortness of breath. Diagnosed with acute exacerbation of COPD. Carries a history of severe COPD chronically wearing 2 L of oxygen supplementation. On the day of admission she felt acutely short of breath. No orthopnea, PND, weight gain, or lower extremity edema. Cardiovascular history of coronary disease with prior ST elevation [place] status post bare-metal stenting of the right coronary artery, chronic heart failure with mild reduced LV systolic function, anterior pericardial fusion, and prolonged QT intervals per ECG. Currently resting comfortably. Shortness of breath improved since admission. She appears anxious and frustrated by her ongoing medical conditions. She is very concerned about her history of congestive heart failure. States "I know I am dehydrated". She is wondering why she is not being treated with IV fluids at this time. Denies orthopnea, PND, or edema. She is not chronically treated with loop diuretic therapy in the outpatient setting. Entresto recently restarted due to resting 2D transthoracic echocardiogram demonstrating ejection fraction of 35-40%. Previous echo reporting an ejection fraction of 40-45%. Treated with midodrine for chronic hypotension, however, hypertensive over the past 48 hours. Allergies Allergy/AdvReac Type Severity Reaction Status Date / Time ibuprofen Allergy Intermediate Unknown Verified 10/19/22 15:56 NSAIDS (Non-Steroidal Allergy Intermediate Unknown Verified 10/19/22 15:56 Anti-Inflamma Sulfa (Sulfonamide Allergy Intermediate HIVES Verified 10/19/22 15:56 Antibiotics) adhesive Allergy Mild BANDAIDS Verified 10/19/22 15:56 SKIN ABRASION ketorolac [From Toradol] Allergy Mild Unknown Verified 10/19/22 15:56 adhesive tape Allergy Unknown Unknown Verified 10/19/22 15:56 tramadol Allergy Unknown . Verified 10/19/22 15:56 rosuvastatin [From Crestor] AdvReac Intermediate Weakness Verified 10/19/22 15:56 prednisone AdvReac Mild Patient Verified 10/19/22 15:56 Reports Contraindication in Kidney Failure meperidine AdvReac Unknown MOOD SWINGS Verified 10/19/22 15:56 Home Medications Medication Instructions Recorded Confirmed Type albuterol sulfate 90 mcg/actuation 2 puff inhalation Q4H PRN 03/10/22 10/19/22 History aerosol inhaler cough,SOB or wheezing ascorbic acid (vitamin C) 500 mg 500 mg PO DAILY 03/10/22 10/19/22 History tablet (Vitamin C) aspirin 81 mg tablet,delayed 81 mg PO QAM 03/10/22 10/19/22 History release calcium carbonate 600 mg-vitamin 1 tab PO DAILY 03/10/22 10/19/22 History D3 10 mcg (400 unit) tablet (Calcium 600 + D(3)) cyanocobalamin (vitamin B-12) 1,000 mcg IM MONTHLY 03/10/22 10/19/22 History 1,000 mcg/mL injection solution evolocumab 420 mg/3.5 mL 420 mg subcut MONTHLY 03/10/22 10/19/22 History subcutaneous wearable injector (Repatha Pushtronex) fluticasone propionate 110 2 puff inhalation AMHS 03/10/22 10/19/22 History mcg/actuation HFA aerosol inhaler (Flovent HFA) folic acid 1 mg tablet 1 mg PO QAM 03/10/22 10/19/22 History ipratropium 0.5 mg-albuterol 3 mg 3 ml inhalation QID PRN Cough, 03/10/22 10/19/22 History (2.5 mg base)/3 mL nebulization Shortness of Breath or Wheezing soln levothyroxine 75 mcg tablet 75 mcg PO DAILYBB 03/10/22 10/19/22 History (Synthroid) lorazepam 0.5 mg tablet 0.5 mg PO DAILY PRN Anxiety 03/10/22 10/19/22 History metoprolol succinate 25 mg 37.5 mg PO QAM 03/10/22 10/19/22 History tablet,extended release 24 hr omeprazole 20 mg capsule,delayed 20 mg PO BID 03/10/22 10/19/22 History release pregabalin 75 mg capsule 75 mg PO TID 03/10/22 10/19/22 History tiotropium 2.5 mcg-olodaterol 2.5 2 puff inhalation QAM 03/10/22 10/19/22 History mcg/actuation mist for inhalation (Stiolto Respimat) dicyclomine 10 mg capsule 10 mg PO TID PRN Abdominal Pain 05/06/22 10/19/22 Rx #30 caps midodrine 2.5 mg tablet 2.5 mg PO TID@0800,1200,1700 #90 05/06/22 10/19/22 Rx tabs acetaminophen 325 mg tablet 325 mg PO Q6 PRN Fever Or Pain 10/19/22 10/19/22 History cholecalciferol (vitamin D3) 25 50 mcg PO QAM 10/19/22 10/19/22 History mcg (1,000 unit) tablet (Vitamin D3) duloxetine 30 mg capsule,delayed 30 mg PO QAM 10/19/22 10/19/22 History release food supplemt, lactose-reduced 1 - 2 ea PO DAILY 10/19/22 10/19/22 History methocarbamol 500 mg tablet 500 mg PO TID PRN muscle spasms 10/19/22 10/19/22 H istory ondansetron HCl 4 mg tablet 4 mg PO Q8 PRN Nausea 10/19/22 10/19/22 History potassium chloride 20 mEq/15 mL 20 meq PO QAM 10/19/22 10/19/22 History oral liquid sacubitril 24 mg-valsartan 26 mg 1 tab PO BID 10/19/22 10/19/22 History tablet (Entresto) spironolactone 25 mg tablet 12.5 mg PO QAM 10/19/22 10/19/22 History Patient History Medical History Acute respiratory failure with hypoxia UNRULY (acute kidney injury) Anxiety CAD (coronary artery disease) Cavernous hemangioma of brain Chronic pain CKD (chronic kidney disease), stage III Gastroparesis HFrEF (heart failure with reduced ejection fraction) Hx of bronchitis Hypokalemia CAN NOT TOLERATE PO POTASSIUM PILLS DUE TO GASTROPARESIS Myocardial infarction 2010 - CHEST PAIN -[facility] AND HAD HEART CATH WITH ONE STENT (BARE METAL) FOLLOW WITH [facility] Neurofibromatosis Pneumothorax AGE 24 - SURGERY TO REPAIR THE LEFT SIDE AND CHEMICAL TREATMENT ON THE RIGHT SIDE AT [facility] 2013 ONLY HAD ONE -- ADMITTED TO [facility] --- METABOLIC RELATED ---- NO MEDICATION Shortness of breath Statin intolerance Volume overload Surgical History History of hernia repair UMBILICAL Hx of cardiac cath 2010 HEART CATH WITH ONE STENT Hx of section X2 Hx of colonoscopy Hx of vaginal surgery 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 Family History Father Lung disease Severe emphysema, pneumothorax Social History Smoking Status: Former smoker Tobacco Type: Cigarettes Age Started Using Tobacco: 11; Age Quit Using Tobacco: 53; packs per day: 1; Cigarettes Per Day: 5; Second Hand Exposure: No; Hx Alcohol Use: Yes Alcohol type: beer, wine and hard liquor Hx Substance Use: No Preferred Language: Macedonian Communication Ability: Effective Yard Conductor Required: No Beliefs That Will Affect Care: None marital status: Current Living Situation: Spouse How many Children do You have: 3 Feels Safe at Home: Yes Safety Concerns: Feels Safe At This Time Assistive Devices: Oxygen - Continuous Review of Systems Review of Systems: All systems reviewed & are unremarkable except as noted in Subjective Physical Exam Constitutional: well nourished and + ill appearing; no acute distress Respiratory: no respiratory distress, no labored breathing and no retractions Auscultation: + diminished lung sounds (Bilateral); no crackles, no rales, no rhonchi and no wheezes Cardiovascular: Rate/Rhythm: regular rate and regular rhythm Heart Sounds: normal S1 and normal S2; no murmur Palpation: normal PMI Vessels: no JVD and no carotid bruit Gastrointestinal (Abdomen): Inspection/Auscultation: normal bowel sounds; abdomen not distended and no abdominal edema Percussion/Palpation: abdomen soft; abdomen nontender, no guarding and abdomen not rigid Neurologic: CN's II-XI intact bilaterally and moves all extremities; no focal motor deficits Motor/Sensory: no tremor Psychiatric: Affect: + irritable affect Mood: + anxious mood Results & Data ([facility]) Vital Signs (Past 12 Hours) Vital Signs Temp Pulse Pulse Pulse Resp BP Pulse Ox 10/23/22 12:03 36.8 C 78 18 158/82 H 96 10/23/22 07:43 10/23/22 07:34 37 C 78 18 148/97 H 98 10/23/22 05:15 85 154/94 H 10/23/22 02:49 37.2 C 75 18 157/92 H 97 10/23/22 01:27 74 O2 Del Method O2 Flow Rate 10/23/22 12:03 Nasal Cannula 2 10/23/22 07:43 Nasal Cannula 2 10/23/22 07:34 Nasal Cannula 2 10/23/22 05:15 10/23/22 02:49 Nasal Cannula 2 10/23/22 01:27 Diagnostic Findings 2D echo 07/30/2022: The left ventricular cavity size is normal. The wall thickness is normal in segments with normal wall motion. There is moderate hypokinesis of the inferior and posterior wall with mild hypokinesis all other segments The left ventricular diastolic function is mildly abnormal (grade I). The qualitative LV ejection fraction is 35-39% (moderately reduced). The mitral valve leaflets thickness is moderately increased. The posterior leaflet has moderately decreased mobility. Moderate mitral regurgitation is present. The mitral regurgitation jet is posteriorly directed. A moderate sized anterior loculated pericardial effusion is present. The pericardial effusion contains fibrous strands Cardiac tamponade is absent on this assessment
--- NOTE | 2022-10-23 14:22 | Hospitalist Progress Note ---
Date of Service October 23, 2022 Assessment & Plan (1) Acute on chronic respiratory failure with hypoxia: (2) Hypotension: (3) Anxiety: (4) HFrEF (heart failure with reduced ejection fraction): (5) CKD (chronic kidney disease), stage III: (6) Chronic pain: (7) Statin intolerance: Plan 57-year-old female with PMH of chronic hypoxic respiratory failure on 2 L nasal cannula O2 secondary to COPD, combined systolic and diastolic heart failure, CAD, hypotension on midodrine, CKD 3, chronic neuropathic pain, tobacco use disorder (smoking since age 11, reports quitting spring), mood disorder presented 10/19 with worsening shortness of breath and was found to have acute on chronic respiratory failure in the setting of COPD exacerbation and possible pneumonia. She is being managed for the following: Acute on chronic respiratory failure with hypoxia COPD exacerbation Possible atypical pneumonia Hypoxic prior to arrival on normal 2 L nasal cannula Likely viral etiology (flu, rsv, covid neg at presenation) given sick family members however due to patient's h/o intermittent fevers and elevated procalcitonin at presentation, started empirically on Rocephin and Doxy for now Admitting Chest x-ray without acute process. Evidence of chronic emphysema Will continue w/ iv antibiotic, c/w nebs, Wean down solu medrol 10/19 BID to daily 10/22 to 20 mg for 2 days and stop. Pt doesn't want to be on PO atb (d/t gi side effects in past w/ atb) and on PO steroid (d/t mood issues when on PO steroid in past) On exam, no wheeze, back to 2L O2 which is her baseline ; PT/OT to continue. Cough is improved and is conversing normally Mild Hyponatremia: Likely 2/2 decrease appetite, will continue to monitor. HFrEF Appears euvolemic on exam Continue spironolactone, Entresto, Toprol, low-sodium diet No signs and or symptoms of fluid overload Pt asked for Cardiology to see her while in hospital. Hypotension BP normotensive currently. Continue midodrine, dose decreased to 2.5 mg tid from 5 tid. Anxiety Continue duloxetine, lorazepam as needed CKD 3: Stable. BMP as needed. Chronic pain Continue home regimen of methocarbamol, Lyrica DVT Ppx: SQ lovenox Code status: FULL PCP: Sascha Dispo: Admitted to PCU, PT/OT to [facility] to assist w/ DC plan. expect in 2 days if no placement. Pt not willing to take PO antibiotic and po steroid. Text document was generated using voice recognition software. It may contain grammatical or spelling errors. Kindly contact undersigned for clarification of any documentation item in question. Admission and Anticipated Discharge Date Admission Date: October 19, 2022 Subjective Patient seen and examined at bedside as a follow-up of acute on chronic respiratory failure with hypoxia likely secondary to exacerbation of her COPD. Patient was lying in bed, on 2 L nasal cannula oxygen, NAD, reports feeling better w/ cough/breathing and acitivity; still complains decreased appetite. Pt doesn't want to transition to PO atb or po steroid, will like to complete in IV forms. Pt asking to complete them here in hospital. Pt has usg guided iv line. Patient adamantly refuses taking them as p.o. as he had some GI side effect from p.o. antibiotic in the past and mood swings with p.o. steroid in the past. Pt was upset when discussion about discharge plan was initiated, wanted to see heart doctor while in hospital. Also wanted urinalysis be done, was asking if her kidney is not working fine, reassured her kidney function has so far been at her baseline. Physical Exam Physical Exam: GENERAL: Alert and oriented x3. NAD, on 2L NC O2. Appears older than age. HEENT: No pallor, no icterus. Pupils equal, round and reactive to light. Oral mucosa moist. NECK: No JVD, no neck masses. HEART: S1 and S2 heard. Regular rate and rhythm. No murmur, no gallop. RESPIRATORY SYSTEM: Normal AP diameter. No accessory muscle use. No wheezing, no crackles. Decreased breath sounds b/l. ABDOMEN: Soft, bowel sounds present, nontender, no distention. CENTRAL NERVOUS SYSTEM: No facial droop. Speech is clear. Obeys simple commands. Moves extremities. EXTREMITIES: No edema, no erythema seen. Results & Data Results & Data ([facility]) Vital Signs (Past 12 Hours) Vital Signs Temp Pulse Pulse Resp BP Pulse Ox O2 Del Method 10/23/22 12:03 36.8 C 78 18 158/82 H 96 Nasal Cannula 10/23/22 07:43 Nasal Cannula 10/23/22 07:34 37 C 78 18 148/97 H 98 Nasal Cannula 10/23/22 05:15 85 154/94 H 10/23/22 02:49 37.2 C 75 18 157/92 H 97 Nasal Cannula O2 Flow Rate 10/23/22 12:03 2 10/23/22 07:43 2 10/23/22 07:34 2 10/23/22 05:15 10/23/22 02:49 2
[2022-10-23] MEDS: ALBUT/IPRATROP 3MG/0.5MG NEB 3 ML VIAL NEB PRN (14:36)
[2022-10-23 14:50] LABS: Appearance Urine Clear (Clear); Bacteria Urine Automated Negative (Negative); Bilirubin Urine Negative (Negative); Blood Urine Negative (Negative); Cast Urine Automated 0 /lpf (0-5); Color Urine Yellow; Epithelial Cell Urine Auto 20-30 /lpf (0-5); Glucose Urine UA Negative (Negative); Ketones Urine Negative (Negative); Leukocyte Esterase Urine Trace (Negative); Nitrite Urine Negative (Negative); Protein Urine Negative (Negative); RBC Urine Automated 0-4 /hpf (0-4); Urobilinogen Urine Negative (Negative); pH Urine 6.5 (4.5-7.5)
[2022-10-23] MEDS: ENOXAPARIN INJ 40 MG/0.4 ML SYR SQ SCH (17:09)
[2022-10-23] MEDS: ACETAMINOPHEN 325 MG TAB PO PRN (17:12)
[2022-10-23] MEDS: cefTRIAXone SODIUM 2,000 MG in DEXTROSE 5% 50 ML IV SCH (19:06)
[2022-10-24] MEDS: LORazepam 0.5 MG TAB PO PRN (01:02)
[2022-10-24] MEDS: LEVOTHYROXINE SODIUM 75 MCG TABLET PO SCH (03:58)
[2022-10-24] MEDS: PREGABALIN 75 MG CAP PO SCH ×3 (05:20→19:37)
[2022-10-24] MEDS: METOPROLOL SUCC 25MG EXT REL TAB PO SCH (05:21)
[2022-10-24] MEDS: METHOCARBAMOL 500 MG TABLET PO SCH ×3 (05:21→19:34)
[2022-10-24] MEDS: SPIRONOLACTONE 12.5 MG TAB PO SCH (05:21)
[2022-10-24] MEDS: VALSARTAN/SACUBITRIL 26/24MG TAB PO SCH ×2 (05:21→19:34)
[2022-10-24 06:59] LABS: BUN Creatinine Ratio 18.6 (10-20); Calcium 8.8 mg/dl (8.5-10.1); Est GFR (African American) 74.6 ml/min; Est GFR (Non-African American) 64.4 ml/min; Magnesium 1.8 mg/dl (1.7-2.4)
[2022-10-24] MEDS: MIDODRINE HCL 2.5 MG TAB PO SCH ×3 (09:28→16:51)
[2022-10-24] MEDS: ASPIRIN 81 MG ECTAB PO SCH (09:29)
[2022-10-24] MEDS: ASCORBIC ACID 500 MG TAB PO SCH (09:29)
[2022-10-24] MEDS: FLUTICASONE FUROATE 200MCG 14 PUFFS/INHALER INH SCH (09:29)
[2022-10-24] MEDS: CALCIUM 600MG + VIT D 400 IU TAB PO SCH (09:29)
[2022-10-24] MEDS: DOXYCYCLINE HYCLATE 100 MG in DEXTROSE 5% 100 ML IV SCH ×2 (09:29→21:14)
[2022-10-24] MEDS: CHOLECALCIFEROL 1,000 UNITS 25 MCG TAB PO SCH (09:29)
[2022-10-24] MEDS: ADVANCED PROBIOTIC 1250 MG CAPSULE PO SCH (09:30)
[2022-10-24] MEDS: FOLIC ACID 1 MG TAB PO SCH (09:30)
[2022-10-24] MEDS: methylPREDNISolone 20 MG in SYRINGE 0 ML IV SCH (09:31)
[2022-10-24] MEDS: UMECLIDINIUM/VILANTEROL 62.5/25MCG 7 PUFFS/INHALER INH SCH (09:31)
[2022-10-24] MEDS: POTASSIUM CHLORIDE 20 MEQ/15 ML UDC PO SCH ×2 (09:31→09:36)
[2022-10-24] MEDS ORDERED: oxyCODONE/ACETAMINOPHEN 5mg/325mg TAB PO STA (10:28)
[2022-10-24] MEDS: DULoxetine HCL 30 MG CAP PO SCH (11:43)
[2022-10-24] MEDS: PANTOprazole 40 MG TAB PO SCH ×2 (11:44→19:34)
--- NOTE | 2022-10-24 14:25 | Hospitalist Progress Note ---
Date of Service October 24, 2022 Assessment & Plan (1) Acute on chronic respiratory failure with hypoxia: (2) Hypotension: (3) Anxiety: (4) HFrEF (heart failure with reduced ejection fraction): (5) CKD (chronic kidney disease), stage III: (6) Chronic pain: (7) Statin intolerance: Plan 57-year-old female with PMH of chronic hypoxic respiratory failure on 2 L nasal cannula O2 secondary to COPD, combined systolic and diastolic heart failure, CAD, hypotension on midodrine, CKD 3, chronic neuropathic pain, tobacco use disorder (smoking since age 11, reports quitting spring), mood disorder presented 10/19 with worsening shortness of breath and was found to have acute on chronic respiratory failure in the setting of COPD exacerbation and possible pneumonia. She is being managed for the following: Acute on chronic respiratory failure with hypoxia COPD exacerbation Possible atypical pneumonia Hypoxic prior to arrival on normal 2 L nasal cannula Likely viral etiology (flu, rsv, covid neg at presenation) given sick family members however due to patient's h/o intermittent fevers and elevated procalcitonin at presentation, started empirically on Rocephin and Doxy for now Admitting Chest x-ray without acute process. Evidence of chronic emphysema Will continue w/ iv antibiotic, c/w nebs, Wean down solu medrol 10/19 BID to daily 10/22 to 20 mg for 2 days and stop. Pt doesn't want to be on PO atb (d/t gi side effects in past w/ atb) and on PO steroid (d/t mood issues when on PO steroid in past) On exam, no wheeze, back to 2L O2 which is her baseline ; PT/OT to continue. Cough is improved and is conversing normally, appetite improved. Pt appreciated for quitting smoking and encouraged to maintain abstinence. Mild Hyponatremia: Likely 2/2 decrease appetite, will continue to monitor. getting better. HFrEF Appears euvolemic on exam Continue spironolactone, Entresto, Toprol, low-sodium diet No signs and or symptoms of fluid overload Pt asked for Cardiology to see her while in hospital, who evaled. Pt needs close f/u w/ cards as OP. Hypotension BP normotensive currently. Continue midodrine, dose decreased to 2.5 mg tid from 5 tid. Anxiety Continue duloxetine, lorazepam as needed CKD 3: Stable. BMP as needed. Chronic pain Continue home regimen of methocarbamol, Lyrica DVT Ppx: SQ lovenox Code status: FULL PCP: Sascha Dispo: Admitted to PCU, PT/OT to [facility] to assist w/ DC plan. expect raul. Pt not willing to take PO antibiotic and po steroid. Text document was generated using voice recognition software. It may contain grammatical or spelling errors. Kindly contact undersigned for clarification of any documentation item in question. Admission and Anticipated Discharge Date Admission Date: October 19, 2022 Subjective Patient seen and examined at bedside as a follow-up of acute on chronic respiratory failure with hypoxia likely secondary to exacerbation of her COPD. Patient was lying in bed, on 2 L nasal cannula oxygen, NAD, reports feeling better w/ cough/breathing and acitivity; Reports eating better and moving bowels ok. Pt doesn't want to transition to PO atb or po steroid, will like to complete in IV forms. Pt asking to complete them here in hospital. Pt has usg guided iv line. Patient adamantly refuses taking them as p.o. as he had some GI side effect from p.o. antibiotic in the past and mood swings with p.o. steroid in the past. Physical Exam Physical Exam: GENERAL: Alert and oriented x3. NAD, on 2L NC O2. Appears older than age. HEENT: No pallor, no icterus. Pupils equal, round and reactive to light. Oral mucosa moist. NECK: No JVD, no neck masses. HEART: S1 and S2 heard. Regular rate and rhythm. No murmur, no gallop. RESPIRATORY SYSTEM: Normal AP diameter. No accessory muscle use. No wheezing, no crackles. Decreased breath sounds b/l. ABDOMEN: Soft, bowel sounds present, nontender, no distention. CENTRAL NERVOUS SYSTEM: No facial droop. Speech is clear. Obeys simple commands. Moves extremities. EXTREMITIES: No edema, no erythema seen. Results & Data Results & Data ([facility]) Vital Signs (Past 12 Hours) Vital Signs Temp Pulse Pulse Pulse Resp BP Pulse Ox 10/24/22 11:18 37 C 80 18 132/76 97 10/24/22 07:55 10/24/22 05:19 37 C 70 82 17 135/85 97 10/24/22 04:50 86 10/24/22 02:45 37.1 C 77 18 146/93 H 98 O2 Del Method O2 Flow Rate 10/24/22 11:18 Nasal Cannula 2 10/24/22 07:55 Nasal Cannula 2 10/24/22 05:19 Nasal Cannula 2 10/24/22 04:50 10/24/22 02:45 Nasal Cannula 2
[2022-10-24] MEDS: ENOXAPARIN INJ 40 MG/0.4 ML SYR SQ SCH (16:51)
[2022-10-24] MEDS: cefTRIAXone SODIUM 2,000 MG in DEXTROSE 5% 50 ML IV SCH (19:32)
[2022-10-24] MEDS: ALBUT/IPRATROP 3MG/0.5MG NEB 3 ML VIAL NEB PRN (19:44)
[2022-10-24] MEDS: ACETAMINOPHEN 325 MG TAB PO PRN (23:52)
[2022-10-25] MEDS: LORazepam 0.5 MG TAB PO PRN (00:33)
[2022-10-25] MEDS: LEVOTHYROXINE SODIUM 75 MCG TABLET PO SCH (03:45)
[2022-10-25] MEDS: SPIRONOLACTONE 12.5 MG TAB PO SCH (05:36)
[2022-10-25] MEDS: PREGABALIN 75 MG CAP PO SCH ×2 (05:36→12:08)
[2022-10-25] MEDS: VALSARTAN/SACUBITRIL 26/24MG TAB PO SCH (05:37)
[2022-10-25] MEDS: METHOCARBAMOL 500 MG TABLET PO SCH ×2 (05:37→12:06)
[2022-10-25] MEDS: METOPROLOL SUCC 25MG EXT REL TAB PO SCH (05:38)
[2022-10-25] MEDS: ASPIRIN 81 MG ECTAB PO SCH (08:20)
[2022-10-25] MEDS: MIDODRINE HCL 2.5 MG TAB PO SCH ×2 (08:20→12:19)
[2022-10-25] MEDS: FLUTICASONE FUROATE 200MCG 14 PUFFS/INHALER INH SCH (08:21)
[2022-10-25] MEDS: CHOLECALCIFEROL 1,000 UNITS 25 MCG TAB PO SCH (08:21)
[2022-10-25] MEDS: CALCIUM 600MG + VIT D 400 IU TAB PO SCH (08:21)
[2022-10-25] MEDS: ASCORBIC ACID 500 MG TAB PO SCH (08:21)
[2022-10-25] MEDS: FOLIC ACID 1 MG TAB PO SCH (08:21)
[2022-10-25] MEDS: POTASSIUM CHLORIDE 20 MEQ/15 ML UDC PO SCH (08:22)
[2022-10-25] MEDS: ADVANCED PROBIOTIC 1250 MG CAPSULE PO SCH (08:22)
[2022-10-25] MEDS: UMECLIDINIUM/VILANTEROL 62.5/25MCG 7 PUFFS/INHALER INH SCH (08:22)
[2022-10-25] MEDS: methylPREDNISolone 20 MG in SYRINGE 0 ML IV SCH (08:22)
[2022-10-25] MEDS: DOXYCYCLINE HYCLATE 100 MG in DEXTROSE 5% 100 ML IV SCH (08:28)
[2022-10-25] MEDS: ACETAMINOPHEN 325 MG TAB PO PRN (10:09)
--- NOTE | 2022-10-25 10:57 | Discharge Summary ---
Date of Service October 25, 2022 Admission HPI Per Admitting Provider This is a 57-year-old female with PMH of chronic hypoxic respiratory failure on 2 L nasal cannula O2 secondary to COPD, combined systolic and diastolic heart failure, CAD, hypotension on midodrine, CKD 3, chronic neuropathic pain, tobacco use disorder, mood disorder and other medical problems listed below who presents with worsening shortness of breath. Has been requiring nebulizers at night that is gotten worse over the past 3 days. Has been around her grandson who had RSV and had a cold. States that she has had a fever of 101 the past 2 days and cough has productive green sputum. Endorsing chest tightness and decreased appetite. No headache, lightheadedness, chest pain, nausea, vomiting, abdominal pain, dysuria, diarrhea or constipation. Taking medications as prescribed. Admission Exam Per Admitting Provider General Appearance:WD/WN, vitals as above, NAD, sitting up in bed with BiPAP mask on, minimal shortness of breath noted and able to talk comfortably Head: normocephalic, atraumatic Eyes:normal inspection, PERRL, conjunctivae normal, anicteric sclerae ENT: external ear and nose normal, bipap mask Neck: normal visual inspection, trachea midline, no thyromegaly Respiratory:slightly increased respiratory effort,decreased breath sound bilaterally, no wheezing or rales. No accessory muscle use Cardiovascular: tachycardic rate, regular rhythm, no murmur, normal peripheral pulses, no BLE edema. Vessels: no JVD Chest: normal inspection of chest Abdomen/GI: normal bowel sounds, soft, nontender, no hepatosplenomegaly Extremities/Musculoskeletal: no cyanosis or clubbing, extremities motor strength 5/5 Neurologic: PERRL, EOMI, accommodation nl, no face palsy, no dysarthria, CN's II-XI intact bilaterally and moves all extremities Psychiatric:A+Ox3, euthymic affect Skin: no rashes, normal color, warm/dry Principal Diagnosis Acute on chronic respiratory failure with hypoxia COPD exacerbation Mild hyponatremia HFrEF, stable Discharge Exam GENERAL: Alert and oriented x3. NAD, on 2L NC O2. Appears older than age. HEENT: No pallor, no icterus. Pupils equal, round and reactive to light. Oral mucosa moist. NECK: No JVD, no neck masses. HEART: S1 and S2 heard. Regular rate and rhythm. No murmur, no gallop. RESPIRATORY SYSTEM: Normal AP diameter. No accessory muscle use. No wheezing, no crackles. Decreased breath sounds b/l. ABDOMEN: Soft, bowel sounds present, nontender, no distention. CENTRAL NERVOUS SYSTEM: No facial droop. Speech is clear. Obeys simple commands. Moves extremities. EXTREMITIES: No edema, no erythema seen. Discharge Data Allergies Allergy/AdvReac Type Severity Reaction Status Date / Time ibuprofen Allergy Intermediate Unknown Verified 10/19/22 15:56 NSAIDS (Non-Steroidal Allergy Intermediate Unknown Verified 10/19/22 15:56 Anti-Inflamma Sulfa (Sulfonamide Allergy Intermediate HIVES Verified 10/19/22 15:56 Antibiotics) adhesive Allergy Mild BANDAIDS Verified 10/19/22 15:56 SKIN ABRASION ketorolac [From Toradol] Allergy Mild Unknown Verified 10/19/22 15:56 adhesive tape Allergy Unknown Unknown Verified 10/19/22 15:56 tramadol Allergy Unknown . Verified 10/19/22 15:56 rosuvastatin [From Crestor] AdvReac Intermediate Weakness Verified 10/19/22 15:56 prednisone AdvReac Mild Patient Verified 10/19/22 15:56 Reports Contraindication in Kidney Failure meperidine AdvReac Unknown MOOD SWINGS Verified 10/19/22 15:56 Consultations 10/19/22 15:19 ED Decision to Admit Stat 10/23/22 10:22 Consult Cardiology Routine Hospital Course (1) Acute on chronic respiratory failure with hypoxia: (2) Hypotension: (3) Anxiety: (4) HFrEF (heart failure with reduced ejection fraction): (5) CKD (chronic kidney disease), stage III: (6) Chronic pain: (7) Statin intolerance: Plan 57-year-old female with PMH of chronic hypoxic respiratory failure on 2 L nasal cannula O2 secondary to COPD, combined systolic and diastolic heart failure, CAD, hypotension on midodrine, CKD 3, chronic neuropathic pain, tobacco use disorder (smoking since age 11, reports quitting spring), mood disorder presented 10/19 with worsening shortness of breath and was found to have acute on chronic respiratory failure in the setting of COPD exacerbation and possible pneumonia. She was managed for the following: Acute on chronic respiratory failure with hypoxia COPD exacerbation Possible atypical pneumonia Hypoxic prior to arrival on normal 2 L nasal cannula Likely viral etiology (flu, rsv, covid neg at presenation) given sick family members however due to patient's h/o intermittent fevers and elevated procalcitonin at presentation, started empirically on Rocephin and Doxy for now Admitting Chest x-ray without acute process. Evidence of chronic emphysema c/w nebs, s/p steroid and atb course, in iv form per pt preference Pt doesn't want to be on PO atb (d/t gi side effects in past w/ atb) and on PO steroid (d/t mood issues when on PO steroid in past) On exam, no wheeze, back to 2L O2 which is her baseline ; PT/OT to continue. Cough is improved and is conversing normally, appetite improved. Pt appreciated for quitting smoking and encouraged to maintain abstinence. Pt to f/u w/ PCP and oleg lung doctor as OP, PFT in 4-6 weeks. Pt aware. Mild Hyponatremia: Likely 2/2 decrease appetite, will continue to monitor. getting better. HFrEF Appears euvolemic on exam Continue spironolactone, Entresto, Toprol, low-sodium diet No signs and or symptoms of fluid overload Pt asked for Cardiology to see her while in hospital, who evaled. Pt needs close f/u w/ cards as OP. Pt aware. Hypotension BP normotensive currently. Continue midodrine, dose decreased to 2.5 mg tid from 5 tid. Anxiety Continue duloxetine, lorazepam as needed CKD 3: Stable. BMP as needed. Chronic pain Continue home regimen of methocarbamol, Lyrica DVT Ppx: SQ lovenox Code status: FULL PCP: Sascha Dispo: Admitted to PCU, PT/OT to NADER davidson to assist w/ DC plan. expect raul. Pt not willing to take PO antibiotic and po steroid. Text document was generated using voice recognition software. It may contain grammatical or spelling errors. Kindly contact undersigned for clarification of any documentation item in question. Patient being discharged home with home health with following instruction at the point of discharge: Follow-up with your primary care physician within 1 week time and likely you will need blood test CBC/CMP/magnesium level. You will need to establish lung doctor and follow-up with your lung doctor closely, communicate with your primary care physician for referral. Likely you will need pulmonary function test in 4 to 6 weeks. Follow closely with your heart doctor, in 2 to 4 weeks upon discharge. Take your medications as prescribed. Home Health Attestation I certify that this patient is under my care and that I, or a physicians zena brito working with me, had a face to-face encounter that meets the home health [id number] encounter requirements with this patient. The encounter with the patient was in whole, or in part, for the following medical condition, which is the primary reason for home health care (list medical condition): COPD exacerbation I certify that, based on my findings, the following services are medically necessary home health services: My clinical findings support the need for the above services because: Skilled Nsg Assessment Skilled Nsg Assess Pt Illness, Disease and Sx Monitoring Teach on Disease Management and Interventions Further, I certify that my clinical findings support that this patient is homebound (i.e. absences from home require considerable and taxing effort and are for medical reasons or rastafari services or infrequently or of short duration when for other reasons) because: Transportation Assistance/Unable to Leave Home Unassisted Certification for Home Health Services: Based on the above findings, I certify that this patient is confined to the home and needs intermittent shelter care, physical therapy and/or speech therapy or continues to need occupational therapy. The patient is under my care, and I have initiated the establishment of the plan of care. This patient will be followed by a physician who will periodically review the plan of care. Total Time Total Time Spent Total Time Spent (In Minutes): 40 Discharge Plan Discharge Items Patient Disposition: Home - Home Health Services Reason For Visit: COPD EXACERBATION Discharge Diagnosis: Acute on chronic respiratory failure with hypoxia COPD exacerbation Mild hyponatremia HFrEF, stable Activity: Resume your previous activity Non-emergency contact: Primary Care Provider Call non-emergency contact if: you have any medication questions, your symptoms worsen and your temperature is above 101 Follow-up/Referrals: [facility] [Other] (The Pulmonary office at [facility] will call you with an appointment. ) Ace Rodriguez DO [Outside Practitioners] - (Date & Time 10/30/2022 1:00 PM Provider Ace Rodriguez DO Department [facility] ) Diet: Heart Healthy and Low Sodium (2gm) Addtl Attending Provider Instructions: Follow-up with your primary care physician within 1 week time and likely you will need blood test CBC/CMP/magnesium level. You will need to establish lung doctor and follow-up with your lung doctor closely, communicate with your primary care physician for referral. Likely you will need pulmonary function test in 4 to 6 weeks. Follow closely with your heart doctor, in 2 to 4 weeks upon discharge. Take your medications as prescribed. Pending Studies at Discharge: No Stand-Alone Forms: My [facility], Smoking Cessation Medications and DC Order Prescriptions: Continued ipratropium-albuterol 0.5 mg-3 mg(2.5 mg base)/3 mL solution for nebulization 3 ml INHALATION QID PRN (Reason: Cough, Shortness of Breath or Wheezing) aspirin 81 mg Tablet,Delayed Release (Dr/Ec) 81 mg PO QAM levothyroxine [Synthroid] 75 mcg tablet 75 mcg PO DAILYBB lorazepam 0.5 mg tablet 0.5 mg PO DAILY PRN (Reason: Anxiety) ascorbic acid (vitamin C) [Vitamin C] 500 mg Tablet 500 mg PO DAILY cyanocobalamin (vitamin B-12) 1,000 mcg/mL Solution 1,000 mcg IM MONTHLY Rx Instructions: inject every 30 days omeprazole 20 mg capsule,delayed release(DR/EC) 20 mg PO BID folic acid 1 mg Tablet 1 mg PO QAM metoprolol succinate 25 mg tablet extended release 24 hr 37.5 mg PO QAM Rx Instructions: 1 & 1/2 tablet dose albuterol sulfate 90 mcg/actuation HFA aerosol inhaler 2 puff INHALATION Q4H PRN (Reason: cough,SOB or wheezing) fluticasone propionate [Flovent HFA] 110 mcg/actuation Hfa Aerosol Inhaler 2 puff INHALATION [facility] pregabalin 75 mg capsule 75 mg PO TID Rx Instructions: morning,noon and bedtime calcium carbonate-vitamin D3 [Calcium 600 + D(3)] 600 mg-10 mcg (400 unit) Tablet 1 tab PO DAILY Stiolto Respimat 2.5-2.5 mcg/actuation mist 2 puff INHALATION QAM Repatha Pushtronex 420 mg/3.5 mL wearable injector 420 mg SUBCUT MONTHLY Rx Instructions: remove from refrigerator 45 min prior to injection dicyclomine 10 mg Capsule 10 mg PO TID PRN (Reason: Abdominal Pain) Qty: 30 0RF midodrine 2.5 mg Tablet 2.5 mg PO TID@0800,1200,1700 Qty: 90 0RF methocarbamol 500 mg tablet 500 mg PO TID PRN (Reason: muscle spasms) spironolactone 25 mg tablet 12.5 mg PO QAM duloxetine 30 mg capsule,delayed release(DR/EC) 30 mg PO QAM cholecalciferol (vitamin D3) [Vitamin D3] 25 mcg (1,000 unit) Tablet 50 mcg PO QAM ondansetron HCl 4 mg tablet 4 mg PO Q8 PRN (Reason: Nausea) potassium chloride 20 mEq/15 mL liquid 20 meq PO QAM Entresto 24-26 mg Tablet 1 tab PO BID acetaminophen 325 mg Tablet 325 mg PO Q6 PRN (Reason: Fever Or Pain) Boost High Protein Powder 1 - 2 ea PO DAILY Rx Instructions: 1 - 2 drinks per day Discharge Orders: Discharge Order (Routine); Ordered 10/25/22 Ordered By: Rebecca Barrera Admission Data Admit Date/Time: 10/19/22 15:37 Attending Provider: Rebecca Barrera Admit Provider: Prince Ugalde Primary Care Provider: Gillian Caicedo Other Providers: Evelia Beltran ; [facility] ; Angel Castillo ; [facility]
[2022-10-25] MEDS ORDERED: Nursing to Pharmacy Communication SCH (11:30)
[2022-10-25] MEDS: DULoxetine HCL 30 MG CAP PO SCH (12:06)
[2022-10-25] MEDS: PANTOprazole 40 MG TAB PO SCH (12:07)
[2022-10-25 12:11] VITALS: TEMP 99.1
[2022-10-25] MEDS: ALBUT/IPRATROP 3MG/0.5MG NEB 3 ML VIAL NEB PRN (13:06)
[2022-10-25 13:08] VITALS: O2SAT 99
[2022-10-25 15:16] VITALS: BP 125/83; PULSE 82
[2022-10-25] MEDS ORDERED: cefTRIAXone SODIUM 2,000 MG in DEXTROSE 5% 50 ML IV SCH (16:00)
== END 2022-10-25 16:32 | disposition home health service (06) | DRG 190 ==
LOC: ED 12:31 → 2E 15:37 → SUATTDRO 15:37 → 2E 16:18

== ENCOUNTER 2023-06-22 14:24 | Inpatient (IN) ==
--- NOTE | 2023-06-22 16:41 | XRay Report ---
SINGLE VIEW CHEST CLINICAL HISTORY: Generalized weakness. FINDINGS: An AP upright chest radiograph is compared to study dated 10/19/2022 and correlated with est CT dated 05/23/2022. The cardiomediastinal silhouette is unremarkable noting advanced atherosclerot ic calcification. Advanced emphysema and chronic interstitial thickening is similar to previous. Apic al scarring is observed with postsurgical change on the left. Additional foci of parenchymal scarring are seen throughout both lungs. Interval shadow projects over the left lung base. Mild patchy airspa ce opacities are suggested throughout the left lung. No large pleural effusion or pneumothorax is see n. The skeletal structures are osteopenic. The bony thorax is grossly intact. IMPRESSION: 1. Advanced emphysema. 2. Mild patchy airspace opacities are suggested throughout the left lung. Correlate clinically for ev idence of a mild nonspecific pneumonitis. Radiographic follow-up to resolution is recommended. ACT 112: Negative or not required by law. Electronically signed by: Binh Henson M.D. 06/22/2023 4:40 PM
[2023-06-22 17:41] LABS: Basophils # (auto) 0.04 K/uL (0-0.2); Basophils % (auto) 0.4 %; Eosinophils # (auto) 0.11 K/uL (0-0.50); Eosinophils % (auto) 1.1 %; Hematocrit (blood only) 45.3 % (37.0-47.0); Hemoglobin 15.4 g/dl (12.0-16.0); Immature Granulocytes # (auto) 0.05 K/uL (0.01-0.20); Immature Granulocytes % (auto) 0.5 %; Lymphocytes # (auto) 1.22 K/uL (1.2-3.4); Lymphocytes % (auto) 12.3 %; Mean Corpuscular Hemoglobin 32.4 pg (25.0-34.0); Mean Corpuscular Volume 95.4 fL (80.0-100.0); Mean Platelet Volume 9.7 fL (9.4-12.4); Monocytes # (auto) 0.41 K/uL (0.11-0.59); Monocytes % (auto) 4.1 %; Neutrophils # (auto) 8.09 K/uL (1.40-6.50); Neutrophils % (auto) 81.6 %; Platelet Count 273 K/uL (130-400); RDW Coefficient of Variation 13.9 % (11.5-14.5); RDW Standard Deviation 49.1 fL (36.4-46.3); Red Blood Count 4.75 M/uL (4.20-5.40); White Blood Count 9.92 K/ul (4.8-10.8)
[2023-06-22 17:52] LABS: Alanine Aminotransferase 7 U/L (7-52); Albumin Globulin Ratio 1.4 (0.9-2); Albumin Level 4.8 gm/dl (3.4-5.0); Alkaline Phosphatase 71 U/L (34-104); Anion Gap 9 (3-11); Aspartate Aminotransferase 14 U/L (13-39); BUN Creatinine Ratio 23.9 (10-20); Bilirubin,Total 0.7 mg/dl (0.2-1.0); Blood Urea Nitrogen 26 mg/dl (6-23); Calcium 10.4 mg/dl (8.6-10.3); Carbon Dioxide 24 mmol/L (21-32); Chloride 107 mmol/L (98-107); Est GFR (African American) 64.8 ml/min; Est GFR (Non-African American) 55.9 ml/min; Globulin 3.4 gm/dl (2.5-4.0); Glucose 143 mg/dl (70-99(Fasting)); Magnesium 2.2 mg/dl (1.7-2.4); Sodium 140 mmol/L (136-145); Total Protein 8.2 gm/dl (6.0-8.3)
[2023-06-22 17:57] LABS: Troponin I High Sensitivity 8.8 pg/ml (0-14)
[2023-06-22 18:03] LABS: Partial Thromboplastin Ratio 0.9; Prothrombin Time 10.5 Seconds (9.0-12.0)
[2023-06-22] MEDS ORDERED: dexAMETHasone**PF** 10 MG/ML VIAL IV ONE (18:24)
[2023-06-22] MEDS ORDERED: ALBUT/IPRATROP 3MG/0.5MG NEB 3 ML VIAL NEB ONE (18:24)
[2023-06-22] MEDS ORDERED: MAGNESIUM SULFATE / D5W 1 GM/100 ML BAG IV STA (18:25)
--- NOTE | 2023-06-22 18:30 | Emergency Department Note ---
Impression & Plan Asthma exacerbation in COPD ED Provider Note Name: ANISHA KINGSLEY Age: 57 Sex: F Arrives Via: Walk-In Informant: Patient, family ED Provider: Milo Thornton MD Chief Complaint: Shortness of breath Impression: As per impression above Medical Decision Makin-year-old female with long history of lung disease who uses 2 L nasal cannula at home arrives for evaluation of worsening breathing difficulty. Patient is quite dyspneic on arrival and not really moving much air. She was given an hour-long nebulizer, Decadron, magnesium. Is started moving some air after this but continues to have increased work of breathing. She did appear a bit dehydrated thus was given some fluids as well. Work-up was essentially unremarkable other than questionable pneumonitis. She was given some IV Doxy. She is not septic I do not feel that blood cultures or 30 mL/kg IV fluids would be indicated in this patient. Patient did note some lower abdominal pain but on exam is pretty much benign other than some vague left lower quadrant discomfort. This is not peritonitis there is no white count elevation and she is otherwise without discomfort thus will hold off on CT imaging of the abdomen pelvis at this time. Patient is feeling much better but in the setting of difficulty breathing I think hospitalization would be indicated. She has a long history of COPD and this is very much similar to that thus I do not feel that rule out of PE or dissection would be necessary at this time. Patient and family are comfortable with this plan. [facility] and [facility] will come in for further management Prior Medical Record and Triage/Nursing Notes reviewed by Me Previous hospitalization records and discharge summaries reviewed Differentials:Pneumonia, pneumothorax, COPD, CHF, infections, cardiac ischemia, pulmonary embolism, musculoskeletal, gastrointestinal, as well as other pathologies. Vital Signs: reviewed and remarkable for tachycardic on arrival Interventions: DuoNeb, doxycycline IV, Decadron IV, magnesium IV, normal saline bolus Labs:Reviewed and remarkable for no significant abnormalities Imagin view chest x-ray as per my interpretation reveals bilateral pneumonitis type findings without overt fluid overload or lobar pneumonia. Emphysema noted EKG:Per My Interpretation: Indication SHOB: Sinus Tach 113 bpm, qtc 438. No Ectopy. No Ischemia but there is some lateral ST depressions. Compared to EKG 10/19/22, no significant changes. Cardiac/Tele Monitoring: Cardiac Monitoring: An Order was placed for continuous cardiac monitoring. The monitor shows a rate of 110 with a sinus tach rhythm. Consults:Dr Devin Rogel Hospitalist Plan: Disposition:Hospitalization. Condition: Fair History of Present Illness:57-year-old female arrives for evaluation of respiratory distress. Patient with 24 hours of worsening breathing difficulty. Patient states she just cannot get her breath. She has been increasingly confused throughout the day. She notes she just feels like she cannot catch her breath. Family notes she just seems to be having waxing and waning episodes of mild confusion.. They deny any falls, trauma, injuries recently. Patient denies any syncope chest pain back pain, nausea, vomiting or other concerning si gns or symptoms. Patient does note that her lower abdomen has been bothering her the last few days. No fevers, chills, urinary burning, diarrhea or other concerning symptoms with that though. She denies any specific pain other than possibly the left lower side is more uncomfortable than the right. Does have a history of diverticulitis Past History:See Below Home Medications:See Below Allergies:See Below Vitals:Blood Pressure: 131/83, Pulse 110, RR 18, T 36.4C, O2 97% on 2L NC (chronic) Physical Exam: GENERAL: Patient is unwell/uncomfortable appearing and in mild distress. Tired appearing RESPIRATORY: Significant dyspnea with gasping though not really tachypneic. Diffusely tight lung sounds no wheezing or crackles appreciated CARDIOVASCULAR: Tachycardic.No murmurs, rubs, gallops appreciated. GASTROINTESTINAL: Abdomen soft, non-tender other than vague mild left lower tenderness palpation, no peritonitis.Bowel sounds positive.No masses a ppreciated. EXTREMITIES: Normal motion all extremities, no cyanosis, no edema. NEUROLOGIC: Alert and oriented, no focal neurologic deficit appreciated SKIN: No rash, no jaundice, no diaphoresis. PSYCH: Appropriate GCS: 15 ED Course: Times/Reassessments: Patient is feeling much more comfortable. She is still breathing relatively heavily though and I do not feel she is ready for discharge. Denies current abdominal pain repeat exam benign. Milo Thornton MD Past Med/Surg History Medical History (Updated 06/23/23 @ 00:56 by Milo Thornton MD) Anxiety CAD (coronary artery disease) Cavernous hemangioma of brain STABLE Chronic pain Decreased mobility LEFT ARM / LIMB RESTRICTION/ CHRONIC REGIONAL PAIN SYNDROME. Emphysema lung Gastroparesis HFrEF (heart failure with reduced ejection fraction) HX History of anesthesia reaction DURING PAST COLONOSCOPIES: TALKED DURING SLEEP PER PT. History of colitis History of colon polyps History of influenza INFLUENZA A, February 2022 - [facility] hospitalization. History of renal failure Hx of bronchitis Hypokalemia HX / CAN NOT TOLERATE PO POTASSIUM PILLS DUE TO GASTROPARESIS Hypothyroidism Low blood pressure Myocardial infarction 2010 - CHEST PAIN -[facility] ER AND HAD HEART CATH WITH ONE STENT (BARE METAL) F OLLOW WITH [facility] CARDIO Neurofibromatosis Oxygen dependent 2 L o2 continuous. Pain syndrome, chronic chronic regional pain syndrome : left arm/received lidocaine injections in [place]/every three months/due may 2023. left limb restriction. Pneumothorax AGE 24 - SURGERY TO REPAIR THE LEFT SIDE AND CHEMICAL TREATMENT ON THE RIGHT SIDE AT [facility] PTSD (post-traumatic stress disorder) Seizure 2013 ONLY HAD ONE -- ADMITTED TO [facility] --- METABOLIC RELATED ---- NO MEDICATION Shortness of breath CHRONIC Statin intolerance Unique anesthetic considerations on preoperative anesthesia assessment HIGH LEVEL ANXIETY WHEN SEDATED/HX INTUBATED WITH INFLUENZA A ...PTSD. GET SCARED WHEN PUT TO SLEEP. 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 Family History Father Lung disease Severe emphysema, pneumothorax Brother Family history of diabetes mellitus Brother Family history of diabetes mellitus Family/Other Family history of cancer Aunt Family history of colonic polyps Grandfather Family history of lymphoma Social History Smoking Status: Current every day smoker Tobacco Type: Cigarettes Age Started Using Tobacco: 11; Age Quit Using Tobacco: 53; packs per day: 1; Cigarettes Per Day: "very little" patient could not tell how much; Second Hand Exposure: No; Do You Dip or Chew Tobacco: No; Hx Alcohol Use: Yes Alcohol type: beer, wine and hard liquor Hx Substance Use: No Preferred Language: Chinese Communication Ability: Effective Chinese Language Professor Required: No Beliefs That Will Affect Care: None marital status: Current Living Situation: Spouse How many Children do You have: 3 Other Information That Helps Us Care for You: No Feels Safe at Home: Yes Safety Concerns: Feels Safe At This Time Assistive Devices: Oxygen - Continuous Allergies Allergies Allergy/AdvReac Type Severity Reaction Status Date / Time tramadol Allergy Severe Seizure Verified 04/30/23 08:43 adhesive Allergy Mild BANDAIDS : Verified 04/30/23 08:43 SKIN ABRASION ketorolac [From Toradol] Allergy Mild HX KIDNEY Verified 04/30/23 08:43 FAILURE adhesive tape Allergy Unknown SKIN TEARS Verified 04/30/23 08:43 ibuprofen Allergy Unknown HX KIDNEY Verified 04/30/23 08:43 FAILURE NSAIDS (Non-Steroidal Allergy Unknown HX KIDNEY Verified 04/30/23 08:43 Anti-Inflamma FAILURE Sulfa (Sulfonamide Allergy Unknown HIVES Verified 04/30/23 08:43 Antibiotics) meperidine AdvReac Unknown NOT A Verified 04/30/23 08:43 VERIFIED RXN: MOOD SWINGS prednisone AdvReac Unknown Patient Verified 04/30/23 08:43 Reports Contraindication in Kidney Failure/SEE NOTES rosuvastatin [From Crestor] AdvReac Unknown Weakness, Verified 04/30/23 08:43 RHABDOMYLOSIS, ACUTE RENAL FAILURE Home Meds Home Medications Medication Instructions Recorded Confirmed albuterol sulfate 90 mcg/actuation 2 puff inhalation Q4H PRN 03/10/22 06/22/23 aerosol inhaler cough,SOB or wheezing aspirin 81 mg tablet,delayed 81 mg PO QAM 03/10/22 06/22/23 release cyanocobalamin (vitamin B-12) 1,000 mcg IM MONTHLY 03/10/22 06/22/23 1,000 mcg/mL injection solution evolocumab 420 mg/3.5 mL 420 mg subcut MONTHLY 03/10/22 06/22/23 subcutaneous wearable injector (Repatha Pushtronex) folic acid 1 mg tablet 1 mg PO QAM 03/10/22 06/22/23 ipratropium 0.5 mg-albuterol 3 mg 3 ml inhalation QID 03/10/22 06/22/23 (2.5 mg base)/3 mL nebulization soln levothyroxine 75 mcg tablet 75 mcg PO QAM 03/10/22 06/22/23 (Synthroid) lorazepam 0.5 mg tablet 0.5 mg PO DAILY PRN Anxiety 03/10/22 06/22/23 metoprolol succinate 25 mg 50 mg PO QAM 03/10/22 06/22/23 tablet,extended release 24 hr omeprazole 20 mg capsule,delayed 20 mg PO BID 03/10/22 06/22/23 release pregabalin 75 mg capsule 75 mg PO TID 03/10/22 06/22/23 acetaminophen 325 mg tablet 325 mg PO Q6 PRN Fever Or Pain 10/19/22 06/22/23 methocarbamol 500 mg tablet 500 mg PO TID PRN muscle spasms 10/19/22 06/22/23 ondansetron HCl 4 mg tablet 4 mg PO Q8 PRN Nausea 10/19/22 06/22/23 sacubitril 24 mg-valsartan 26 mg 1 tab PO BID 10/19/22 06/22/23 tablet (Entresto) spironolactone 25 mg tablet 12.5 mg PO QAM 10/19/22 06/22/23 ergocalciferol (vitamin D2) 1,250 1,250 mcg PO UD 04/28/23 06/22/23 mcg (50,000 unit) capsule (Vitamin D2) fluticasone fur. 100 mcg-umeclid 1 inh inhalation HS 04/28/23 06/22/23 62.5 mcg-vilant 25 mcg inhalat.powder (Trelegy Ellipta) food supplemt, lactose-reduced 1 ea PO UD 04/28/23 06/22/23 lidocaine HCl 4 % (40 mg/mL) kit 40 mg UD 04/28/23 06/22/23 metoprolol succinate 25 mg 25 mg PO HS 04/28/23 06/22/23 tablet,extended release 24 hr albuterol sulfate 2.5 mg/3 mL 2.5 mg continuous nebulization QID 06/22/23 06/22/23 (0.083 %) solution for nebulization PRN Wheezing Previous Rx's Medication Instructions Recorded dicyclomine 10 mg capsule 10 mg PO TID PRN Abdominal Pain 05/06/22 #30 caps midodrine 2.5 mg tablet 2.5 mg PO TID@0800,1200,1700 #90 05/06/22 tabs Results & Data (ED) Vital Signs Vital Signs - 24 hr 06/22/23 14:35 06/22/23 18:25 06/22/23 18:25 Temperature 36.4 C L Temperature Source Temporal Artery Scan Pulse Rate 110 H Pulse Rate [Right Finger] 104 H Pulse Rhythm [Right Finger] Regular Pulse Strength [Right Finger] Normal Respiratory Rate 18 18 Respiratory Effort / Characteristics Non-Labored Non-Labored Respiratory Depth Normal Normal Respiratory Pattern Regular Regular Blood Pressure 121/83 Blood Pressure [Right Arm] 127/94 Blood Pressure Mean 95 Blood Pressure Mean [Right Arm] 105 Blood Pressure Position [Right Arm] Lying Pulse Oximetry 97 98 98 Oxygen Delivery Method Nasal Cannula Nasal Cannula Nasal Cannula Oxygen Flow Rate 2 2 2 Sepsis Recent Fever Within 48 Hours No Sepsis New/Unexplained Change in Mental Status N/A Sepsis Action Taken by Nursing No Action Required 06/22/23 18:25 06/22/23 18:30 06/22/23 18:40 Temperature Temperature Source Pulse Rate 106 H Pulse Rate [Right Finger] 108 H Pulse Rhythm [Right Finger] Pulse Strength [Right Finger] Respiratory Rate 18 Respiratory Effort / Characteristics Spontaneous Respiratory Depth Respiratory Pattern Blood Pressure Blood Pressure [Right Arm] Blood Pressure Mean Blood Pressure Mean [Right Arm] Blood Pressure Position [Right Arm] Pulse Oximetry 99 Oxygen Delivery Method Room Air Nasal Cannula Oxygen Flow Rate 2 Sepsis Recent Fever Within 48 Hours Sepsis New/Unexplained Change in Mental Status Sepsis Action Taken by Nursing Laboratory Data 06/22/23 16:57 06/22/23 16:57 Lab Results 06/22/23 06/22/23 06/22/23 Range/Units 16:57 16:57 16:57 WBC 9.92 (4.8-10.8) K/ul RBC 4.75 (4.20-5.40) M/uL Hgb 15.4 (12.0-16.0) g/dl Hct 45.3 (37.0-47.0) % MCV 95.4 (80.0-100.0) fL MCH 32.4 (25.0-34.0) pg MCHC 34.0 (32.0-36.0) g/dL RDW Std Deviation 49.1 H (36.4-46.3) fL RDW Coeff of Akiko 13.9 (11.5-14.5) % Plt Count 273 (130-400) K/uL MPV 9.7 (9.4-12.4) fL Immature Gran % (Auto) 0.5 % Neut % (Auto) 81.6 % Lymph % (Auto) 12.3 % Woodson % (Auto) 4.1 % Eos % (Auto) 1.1 % Baso % (Auto) 0.4 % Neut # (Auto) 8.09 H (1.40-6.50) K/uL Lymph # (Auto) 1.22 (1.2-3.4) K/uL Woodson # (Auto) 0.41 (0.11-0.59) K/uL Eos # (Auto) 0.11 (0-0.50) K/uL Baso # (Auto) 0.04 (0-0.2) K/uL Immature Gran # (Auto) 0.05 (0.01-0.20) K/uL PT 10.5 (9.0-12.0) Seconds INR 1.0 (0.9-1.1) APTT 24.0 (21.0-31.0) Seconds PTT Ratio 0.9 VBG pH (7.36-7.41) VBG pCO2 (38-50) mmHg VBG pO2 mmHg VBG HCO3 mmol/L VBG O2 Saturation % VBG Base Excess mEq/L Sodium 140 (136-145) mmol/L Potassium 4.0 (3.5-5.1) mmol/L Chloride 107 (98-107) mmol/L Carbon Dioxide 24 (21-32) mmol/L Anion Gap 9 (3-11) BUN 26 H (6-23) mg/dl Creatinine 1.09 (0.6-1.2) mg/dl Est Cr Clr Drug Dosing Not Reportable Est GFR ( Amer) 64.8 ml/min Est GFR (Non-Af Amer) 55.9 ml/min BUN/Creatinine Ratio 23.9 H (10-20) Glucose 143 H (70-99(Fasting)) mg/dl Calcium 10.4 H (8.6-10.3) mg/dl Magnesium 2.2 (1.7-2.4) mg/dl Total Bilirubin 0.7 (0.2-1.0) mg/dl AST 14 (13-39) U/L ALT 7 (7-52) U/L Alkaline Phosphatase 71 (34-104) U/L Troponin I High Sens 8.8 (0-14) pg/ml Total Protein 8.2 (6.0-8.3) gm/dl Albumin 4.8 (3.4-5.0) gm/dl Globulin 3.4 (2.5-4.0) gm/dl Albumin/Globulin Ratio 1.4 (0.9-2) TSH (0.300-4.500) uIu/ml 06/22/23 06/22/23 Range/Units 16:57 18:39 WBC (4.8-10.8) K/ul RBC (4.20-5.40) M/uL Hgb (12.0-16.0) g/dl Hct (37.0-47.0) % MCV (80.0-100.0) fL MCH (25.0-34.0) pg MCHC (32.0-36.0) g/dL RDW Std Deviation (36.4-46.3) fL RDW Coeff of Akiko (11.5-14.5) % Plt Count (130-400) K/uL MPV (9.4-12.4) fL Immature Gran % (Auto) % Neut % (Auto) % Lymph % (Auto) % Woodson % (Auto) % Eos % (Auto) % Baso % (Auto) % Neut # (Auto) (1.40-6.50) K/uL Lymph # (Auto) (1.2-3.4) K/uL Woodson # (Auto) (0.11-0.59) K/uL Eos # (Auto) (0-0.50) K/uL Baso # (Auto) (0-0.2) K/uL Immature Gran # (Auto) (0.01-0.20) K/uL PT (9.0-12.0) Seconds INR (0.9-1.1) APTT (21.0-31.0) Seconds PTT Ratio VBG pH 7.38 (7.36-7.41) VBG pCO2 42 (38-50) mmHg VBG pO2 59 mmHg VBG HCO3 25 mmol/L VBG O2 Saturation 91.1 % VBG Base Excess -0.4 mEq/L Sodium (136-145) mmol/L Potassium (3.5-5.1) mmol/L Chloride (98-107) mmol/L Carbon Dioxide (21-32) mmol/L Anion Gap (3-11) BUN (6-23) mg/dl Creatinine (0.6-1.2) mg/dl Est Cr Clr Drug Dosing Est GFR ( Amer) ml/min Est GFR (Non-Af Amer) ml/min BUN/Creatinine Ratio (10-20) Glucose (70-99(Fasting)) mg/dl Calcium (8.6-10.3) mg/dl Magnesium (1.7-2.4) mg/dl Total Bilirubin (0.2-1.0) mg/dl AST (13-39) U/L ALT (7-52) U/L Alkaline Phosphatase (34-104) U/L Troponin I High Sens (0-14) pg/ml Total Protein (6.0-8.3) gm/dl Albumin (3.4-5.0) gm/dl Globulin (2.5-4.0) gm/dl Albumin/Globulin Ratio (0.9-2) TSH 4.870 H (0.300-4.500) uIu/ml Administered Medications Guaifenesin (Guaifenesin 600 Mg Tabcr) 1,200 mg PO Q12 JUDITH Stop: 07/22/23 20:59 Last Admin: 06/22/23 22:51 Dose: 1,200 mg Documented By: RADHA Sodium Chloride (Nss 1000ml) 1,000 mls @ 150 mls/hr IV .[id number] [facility] Stop: 06/23/23 04:39 Last Admin: 06/22/23 22:52 Dose: 150 mls/hr Documented By: Ceftriaxone Sodium 1,000 mg/ (Dextrose) 60 mls @ 100 mls/hr IV Q24H JUDITH; Protocol Stop: 06/29/23 22:29 Last Infusion: 06/22/23 23:52 Dose: 0 mls/hr Documented By: Admin: 06/22/23 22:50 Dose: 100 mls/hr Documented By: Metoprolol Succinate (Metoprolol Succ 25mg Ext Rel Tab) 25 mg PO HS JUDITH Stop: 07/22/23 20:59 Last Admin: 06/22/23 23:23 Dose: Not Given Documented By: RADHA Pantoprazole Sodium (Pantoprazole 40 Mg Tab) 40 mg PO BID JUDITH Stop: 07/22/23 20:59 Last Admin: 06/22/23 22:51 Dose: 40 mg Documented By: RADHA Pregabalin (Pregabalin 75 Mg Cap) 75 mg PO TID@0800,1200,2100 JUDITH Stop: 07/22/23 20:59 Last Admin: 06/22/23 22:51 Dose: 75 mg Documented By: RADHA Sacubitril/Valsartan (Valsartan/Sacubitril 26/24mg Tab) 1 tab PO BID JUDITH Stop: 07/22/23 20:59 Last Admin: 06/22/23 22:52 Dose: 1 tab Documented By: RADHA Discontinued Medications Albuterol (Albut/Ipratrop 3mg/0.5mg Neb 3 Ml Vial) 12 ml NEB ONE ONE; Protocol Stop: 06/22/23 18:25 Last Admin: 06/22/23 18:40 Dose: 12 ml Documented By: SATINDER Dexamethasone Sodium Phosphate (DexamethasonePf 10 Mg/Ml Vial) 10 mg IV NOW ONE Stop: 06/22/23 18:25 Last Admin: 06/22/23 18:46 Dose: 10 mg Documented By: ESTEFANÍA Magnesium Sulfate/Dextrose (Magnesium Sulfate / D5w) 1 gm in 100 mls @ 100 mls/ hr IV NOW STA Stop: 06/22/23 19:24 Last Infusion: 06/22/23 20:59 Dose: 0 mls/hr Documented By: Admin: 06/22/23 18:46 Dose: 100 mls/hr Documented By: ESTEFANÍA Doxycycline Hyclate 100 mg/ (Dextrose) 110 mls @ 50 mls/hr IV NOW STA Stop: 06/22/23 21:48 Last Infusion: 06/22/23 23:23 Dose: 0 mls/hr Documented By: Admin: 06/22/23 20:40 Dose: 50 mls/hr Documented By: ANNE Ceftriaxone Sodium 2,000 mg/ (Dextrose) 70 mls @ 100 mls/hr IV Q24H [facility]; Protocol Stop: 06/29/23 20:59 Last Admin: 06/22/23 22:14 Dose: Not Given Documented By: RADHA Imaging Data Radiologist's Impression: Chest X-Ray 06/22/23 14:45 SINGLE VIEW CHEST CLINICAL HISTORY: Generalized weakness. FINDINGS: An AP upright chest radiograph is compared to study dated 10/19/2022 and correlated with chest CT dated 05/23/2022. The cardiomediastinal silhouette is unremarkable noting advanced atherosclerotic calcification. Advanced emphysema and chronic interstitial thickening is similar to previous. Apical scarring is observed with postsurgical change on the left. Additional foci of parenchymal scarring are seen throughout both lungs. Interval shadow projects over the left lung base. Mild patchy airspace opacities are suggested throughout the left lung. No large pleural effusion or pneumothorax is seen. The skeletal structures are osteopenic. The bony thorax is grossly intact. IMPRESSION: 1. Advanced emphysema. 2. Mild patchy airspace opacities are suggested throughout the left lung. Correlate clinically for evidence of a mild nonspecific pneumonitis. Radi ographic follow-up to resolution is recommended. ACT 112: Negative or not required by law. Electronically signed by: Binh Henson M.D. 06/22/2023 4:40 PM Discharge Plan Visit Data Chief Complaint: Illness Stated Complaint: CONFUSION ED Provider: Milo Thornton Discharge Problem: Asthma exacerbation in COPD Patient Disposition: Admitted As Inpatient Discharge Instructions Interventions: ED Discharge Assessment Last Done: 06/22/23 20:57
[2023-06-22 19:07] LABS: Base Excess VBG -0.4 mEq/L; HCO3 VBG 25 mmol/L; Oxygen Saturation VBG 91.1 %; PCO2 VBG 42 mmHg (38-50); PO2 VBG 59 mmHg; pH VBG 7.38 (7.36-7.41)
[2023-06-22] MEDS ORDERED: DOXYCYCLINE HYCLATE 100 MG in DEXTROSE 5% 100 ML IV STA (19:37)
[2023-06-22] MEDS ORDERED: POLYETHYLENE (MIRALAX) 17 GM PACK PO PRN (20:01)
[2023-06-22] MEDS ORDERED: ALUMINUM/MAGNESIUM SUSP 30 ML UDC PO PRN (20:01)
[2023-06-22] MEDS ORDERED: MAGNESIUM HYDROXIDE SUSP 30 ML UDC PO PRN (20:01)
--- NOTE | 2023-06-22 20:13 | History & Physical Report ---
Date of Service June 22, 2023 Assessment & Plan (1) COPD exacerbation: (2) HFrEF (heart failure with reduced ejection fraction): (3) CAD (coronary artery disease): (4) Hypertension: (5) Depression: (6) Anxiety: (7) Hypothyroidism: (8) Left lower lobe pneumonia: (9) Acute metabolic encephalopathy: Plan 57 year old with SOB and AMS over past few days per family. (+) cough and not taking medications, including breathing treatment at home over past few days. Wears 2LNC / at home. WBC 9.92; CXR advanced emphysema with possible pneumonitis. Blood, urine and sputum cultures pending. Nebs QID + Q2 PRN, Doxy given in ED; continue with Rocephin pending cultures. Add'l PMH includes HFrEF, CAD s/p AMI, HTN, HLD, Hypothyroidism, GERD. COPD exacerbation: AMS: WBC 9.92 Wears 2LNC supplemental O2 at home.15/06 Chest x-ray reveals advanced emphysema with questionable pneumonitis to correlate clinically Blood, urine and sputum cultures pending COVID-negative Takes Trelegy; continue Albuterol for breakthrough; received neb in ED; tachycardic post tx Decadron 10 mg in ED; start Methylprednisone 125 Q12 06/23 Mucinex ordered PO Q12 Nebs QID + Q2 PRN Doxy IV in ED; continue and add Rocephin and adjust based on culture results If no improvement due to patient being sedentary with her advanced disease; consider PE workup HFrEF: Last ECHO: 03/14; reduced EF 35 to 39%, at that time loculated pericardial effusion, with moderate diffuse left ventricular hypokinesis. Obtain ECHO while inpt Takes Entresto and Jardiance; continue Takes midodrine; continue CAD: Status post AMI 2010; stent x1 placed Takes baby aspirin; continue HTN: Takes metoprolol; continue HLD: Was taking Repatha; not taking anymore per outpatient records Hypothyroidism: Takes levothyroxine; continue GERD: Takes omeprazole; continue Disposition: PCP: Code Status: Full Code VTE Prophylaxis: Lovenox SQ I spent a total of 88 minutes coordinating, documenting, and providing care for this patient excluding time spent in the performance of separately billed services. All of the aforementioned completed while collaborating with the assigned attending physician for a full treatment plan. Please see their addendum for further details. History of Present Illness Chief Complaint: SOB/COPD exacerbation Primary Care Provider: Ace Rodriguez DO Ms. Santiago is a 57 year old female presents with respiratory distress x24 hours coupled wit some AMS that started on Satuday. She wears 2LNC supplemental O2 at baseline. Urine and blood cultures obtained in the ED, COVID-negative. Chest x- ray raised suggestive of advanced emphysema questionable pneumonitis to correlate clinically. Borderline leukocytosis WBC 9.92, otherwise electrolytes unremarkable. VBG without hypercapnia or acidosis. Last ECHO: 03/14; reduced EF 35 to 39%, at that time loculated pericardial effusion, with moderate diffuse left ventricular hypokinesis. Additional past medical history includes HFrEF, COPD, CAD, history of seizure, hypothyroidism. Patient denies NUGENT, dizziness, visual or auditory changes, abdominal pain, N/V/D, recent falls or trauma. Overall poor appetite, only drinks pepsi during the day and is most often in her bed; without much ambulation. Suspect that patient has COPD exacerbation as family reports not taking medications or breathing treatments over past few days. Will treat for acute on chronic COPD exacerbation with IV abx, IV steroids, supportive treatment with Mucinex; await culture results. Obtain a recent echo due to HFrEF and tachycardia on monitor that I suspect is from recent neb tx instead of sepsis. Does not appear toxic, but generally chronically ill individual with suspected pneumonitis. Patient will be admitted for further evaluation and management. Please see A/P for further details. Allergies Allergy/AdvReac Type Severity Reaction Status Date / Time tramadol Allergy Severe Seizure Verified 04/30/23 08:43 adhesive Allergy Mild BANDAIDS : Verified 04/30/23 08:43 SKIN ABRASION ketorolac [From Toradol] Allergy Mild HX KIDNEY Verified 04/30/23 08:43 FAILURE adhesive tape Allergy Unknown SKIN TEARS Verified 04/30/23 08:43 ibuprofen Allergy Unknown HX KIDNEY Verified 04/30/23 08:43 FAILURE NSAIDS (Non-Steroidal Allergy Unknown HX KIDNEY Verified 04/30/23 08:43 Anti-Inflamma FAILURE Sulfa (Sulfonamide Allergy Unknown HIVES Verified 04/30/23 08:43 Antibiotics) meperidine AdvReac Unknown NOT A Verified 04/30/23 08:43 VERIFIED RXN: MOOD SWINGS prednisone AdvReac Unknown Patient Verified 04/30/23 08:43 Reports Contraindication in Kidney Failure/SEE NOTES rosuvastatin [From Crestor] AdvReac Unknown Weakness, Verified 04/30/23 08:43 RHABDOMYLOSIS, ACUTE RENAL FAILURE Home Medications Medication Instructions Recorded Confirmed Type albuterol sulfate 90 mcg/actuation 2 puff inhalation Q4H PRN 03/10/22 06/22/23 History aerosol inhaler cough,SOB or wheezing aspirin 81 mg tablet,delayed 81 mg PO QAM 03/10/22 06/22/23 History release cyanocobalamin (vitamin B-12) 1,000 mcg IM MONTHLY 03/10/22 06/22/23 History 1,000 mcg/mL injection solution evolocumab 420 mg/3.5 mL 420 mg subcut MONTHLY 03/10/22 06/22/23 History subcutaneous wearable injector (Repatha Pushtronex) folic acid 1 mg tablet 1 mg PO QAM 03/10/22 06/22/23 History ipratropium 0.5 mg-albuterol 3 mg 3 ml inhalation QID 03/10/22 06/22/23 History (2.5 mg base)/3 mL nebulization soln levothyroxine 75 mcg tablet 75 mcg PO QAM 03/10/22 06/22/23 History (Synthroid) lorazepam 0.5 mg tablet 0.5 mg PO DAILY PRN Anxiety 03/10/22 06/22/23 History metoprolol succinate 25 mg 50 mg PO QAM 03/10/22 06/22/23 History tablet,extended release 24 hr omeprazole 20 mg capsule,delayed 20 mg PO BID 03/10/22 06/22/23 History release pregabalin 75 mg capsule 75 mg PO TID 03/10/22 06/22/23 History dicyclomine 10 mg capsule 10 mg PO TID PRN Abdominal Pain 05/06/22 06/22/23 Rx #30 caps midodrine 2.5 mg tablet 2.5 mg PO TID@0800,1200,1700 #90 05/06/22 06/22/23 Rx tabs acetaminophen 325 mg tablet 325 mg PO Q6 PRN Fever Or Pain 10/19/22 06/22/23 History methocarbamol 500 mg tablet 500 mg PO TID PRN muscle spasms 10/19/22 06/22/23 History ondansetron HCl 4 mg tablet 4 mg PO Q8 PRN Nausea 10/19/22 06/22/23 History sacubitril 24 mg-valsartan 26 mg 1 tab PO BID 10/19/22 06/22/23 History tablet (Entresto) spironolactone 25 mg tablet 12.5 mg PO QAM 10/19/22 06/22/23 History ergocalciferol (vitamin D2) 1,250 1,250 mcg PO UD 04/28/23 06/22/23 History mcg (50,000 unit) capsule (Vitamin D2) fluticasone fur. 100 mcg-umeclid 1 inh inhalation HS 04/28/23 06/22/23 History 62.5 mcg-vilant 25 mcg inhalat.powder (Trelegy Ellipta) food supplemt, lactose-reduced 1 ea PO UD 04/28/23 06/22/23 History lidocaine HCl 4 % (40 mg/mL) kit 40 mg UD 04/28/23 06/22/23 History metoprolol succinate 25 mg 25 mg PO HS 04/28/23 06/22/23 History tablet,extended release 24 hr albuterol sulfate 2.5 mg/3 mL 2.5 mg continuous nebulization QID 06/22/23 06/22/23 History (0.083 %) solution for nebulization PRN Wheezing Past Med/Surg History Medical History (Updated 06/22/23 @ 21:50 by Evelia Beltran DO) Anxiety CAD (coronary artery disease) Cavernous hemangioma of brain STABLE Chronic pain Decreased mobility LEFT ARM / LIMB RESTRICTION/ CHRONIC REGIONAL PAIN SYNDROME. Emphysema lung Gastroparesis HFrEF (heart failure with reduced ejection fraction) HX History of anesthesia reaction DURING PAST COLONOSCOPIES: TALKED DURING SLEEP PER PT. History of colitis History of colon polyps History of influenza INFLUENZA A, February 2022 - [facility] hospitalization. 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 Pain syndrome, chronic chronic regional pain syndrome : left arm/received lidocaine injections in [place]/every three months/due may 2023. left limb restriction. Pneumothorax AGE 24 - SURGERY TO REPAIR THE LEFT SIDE AND CHEMICAL TREATMENT ON THE RIGHT SIDE AT [place] PTSD (post-traumatic stress disorder) Seizure 2014 ONLY HAD ONE -- ADMITTED TO [facility] --- METABOLIC RELATED ---- NO MEDICATION Shortness of breath CHRONIC Statin intolerance Unique anesthetic considerations on preoperative anesthesia assessment HIGH LEVEL ANXIETY WHEN SEDATED/HX INTUBATED WITH INFLUENZA A ...PTSD. GET SCARED WHEN PUT TO SLEEP. 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 Family History Father Lung disease Severe emphysema, pneumothorax Brother Family history of diabetes mellitus Brother Family history of diabetes mellitus Family/Other Family history of cancer Aunt Family history of colonic polyps Grandfather Family history of lymphoma Social History Smoking Status: Current every day smoker Tobacco Type: Cigarettes Age Started Using Tobacco: 11; Age Quit Using Tobacco: 53; packs per day: 1; Cigarettes Per Day: 5 PER DAY/ADVISED NPO; Second Hand Exposure: No; Do You Dip or Chew Tobacco: No; Hx Alcohol Use: Yes Alcohol type: beer, wine and hard liquor Hx Substance Use: No Preferred Language: Brazilian Communication Ability: Effective 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 Beliefs That Will Affect Care: None marital status: Current Living Situation: Spouse How many Children do You have: 3 Feels Safe at Home: Yes Assistive Devices: Denture - Upper, Denture - Lower, Glasses, Oxygen - Continuous and Other Review of Systems Review of Systems: Neuro: (-) Falls, trauma, slurred speech HEENT: (-) NUGENT, dizziness, dysphagia, visual or auditory changes CV: (-) CP, palpitations, swelling Resp: (-) SOB GI: (-) appetite changes, N/V/D, bowel changes : (-) urinary changes Skin: (-) rashes Psych: (-) anxiety, depression Physical Exam Physical Exam: Neuro: AAOx4, PERRLA, no aphagia, memory changes, CNII-XII grossly intact HEENT: head normocephalic, moist mucus membranes CV: S1/S2, (-) M/G/R, (-) edema, cap refill < 3 seconds Resp: Lungs CTA in all jerry. On RA GI: Abdomen S/NT/ND, Ax4 bowel sounds, (-) CVA tenderness Musculoskeletal: 5/5 B/L UE strength, 5/5 B/L LE strength. No gait disturbance Skin: (-) rashes , (-) erythema. Psych: euthymic mood Results & Data Results & Data Vital Signs (Past 12 Hours) Vital Signs Temp Pulse Pulse Resp BP BP Pulse Ox 06/22/23 18:40 108 H 18 99 06/22/23 18:30 106 H 06/22/23 18:25 06/22/23 18:25 104 H 18 127/94 98 06/22/23 18:25 98 06/22/23 14:35 36.4 C L 110 H 18 121/83 97 O2 Del Method O2 Flow Rate 06/22/23 18:40 Nasal Cannula 2 06/22/23 18:30 06/22/23 18:25 Room Air 06/22/23 18:25 Nasal Cannula 2 06/22/23 18:25 Nasal Cannula 2 06/22/23 14:35 Nasal Cannula 2 Laboratory Results Short CBC 06/22/23 Range/Units 16:57 WBC 9.92 (4.8-10.8) K/ul Hgb 15.4 (12.0-16.0) g/dl Hct 45.3 (37.0-47.0) % Plt Count 273 (130-400) K/uL BMP 06/22/23 16:57 Sodium 140 Potassium 4.0 Chloride 107 Carbon Dioxide 24 BUN 26 H Creatinine 1.09 Glucose 143 H Calcium 10.4 H Liver Function 06/22/23 Range/Units 16:57 Total Bilirubin 0.7 (0.2-1.0) mg/dl AST 14 (13-39) U/L ALT 7 (7-52) U/L Alkaline Phosphatase 71 (34-104) U/L Albumin 4.8 (3.4-5.0) gm/dl Diagnostic Findings Chest X-Ray 06/22/23 14:45 SINGLE VIEW CHEST CLINICAL HISTORY: Generalized weakness. FINDINGS: An AP upright chest radiograph is compared to study dated 10/19/2022 and correlated with chest CT dated 05/23/2022. The cardiomediastinal silhouette is unremarkable noting advanced atherosclerotic calcification. Advanced emphysema and chronic interstitial thickening is similar to previous. Apical scarring is observed with postsurgical change on the left. Additional foci of parenchymal scarring are seen throughout both lungs. Interval shadow projects over the left lung base. Mild patchy airspace opacities are suggested throughout the left lung. No large pleural effusion or pneumothorax is seen. The skeletal structures are osteopenic. The bony thorax is grossly intact. IMPRESSION: 1. Advanced emphysema. 2. Mild patchy airspace opacities are suggested throughout the left lung. Correlate clinically for evidence of a mild nonspecific pneumonitis. Radiographic follow-up to resolution is recommended. ACT 112: Negative or not required by law. Electronically signed by: Binh Henson M.D. 06/22/2023 4:40 PM Code Status & VTE Plan Code Status Full code in the event of cardiac or respiratory arrest VTE Prophylaxis Plan VTE Prophylaxis will be ordered: Yes Supervising Physician Co-Signing Physician Notes I have seen and examined the patient and have discussed the case with the provider above. I agree with the assessment and plan as stated with the following exceptions. 57 yo F with known COPD presents with worsening respiratory distress for 24 hours. She was increasingly confused today and understands that she was but couldnt clarify when that started in her mind. She is currently oriented and feeling about the same as she did in the ER. She is tremulous and tachycardic and states this is from the breathing treatments. When asked if she has been eating and drinking she says not much. She agrees that she is dehydrated and that she has a pneumonia, although she cannot specify why she feels that is the case. She denies any chest pain, fevers, chills, or urinary issues. On exam BP is 96/74, HR 123, RR 24, afebrile and 99% on 2L NC. She is not working to breathe. She appears to be mentating clearly. Tremulous as noted above. Skin is warm and dry. She is not wheezing, and has good airflow throughout. Labs/Imaging/meds reviewed. This does support dehydration given the mildly elevated BUN:creat ratio and the elevated calcium. She is not hypercarbic and doesnt appear to be septic. CXR with advanced emphysema and airspace opacities in the left lung possibly consistent with pneumonia. 1. COPD exacerbation 2/2 left lung pneumonia 2. Acute metabolic encephalopathy-resolved 3. Dehydration 4. Chronic HFrEF and diastolic dysfunction-compensated 5. Underweight Cont Rocephin/doxy to treat underlying pneumonia. Cont steroids and nebulized bronchodilators as needed for wheezing. Given her tachycardia and tremulousness will ensure these are PRN at this point. Mental status appears improved. Added some additional IVF for rehydration overnight cautiously given h/o heart failure. Cont to monitor on telemetry. DO Devin
[2023-06-22] MEDS ORDERED: NON-FORMULARY MEDICATION (Fluticasone-Umeclidin-Vilanter [Trelegy Ellipta] 100-62.5-25 mcg INH SCH (21:00)
[2023-06-22] MEDS ORDERED: cefTRIAXone SODIUM 2,000 MG in DEXTROSE 5% 50 ML IV SCH (21:00)
[2023-06-22] MEDS ORDERED: SODIUM CHLORIDE 0.9% 1000ML 1,000 ML IV SCH (22:00)
[2023-06-22] MEDS ORDERED: ALBUT/IPRATROP 3MG/0.5MG NEB 3 ML VIAL NEB PRN (22:04)
[2023-06-22] MEDS ORDERED: cefTRIAXone SODIUM 1,000 MG in DEXTROSE 5% 50 ML IV SCH (22:30)
[2023-06-22] MEDS: PANTOprazole 40 MG TAB PO SCH (22:51)
[2023-06-22] MEDS: guaiFENesin 600 MG TABCR PO SCH (22:51)
[2023-06-22] MEDS: PREGABALIN 75 MG CAP PO SCH (22:51)
[2023-06-22] MEDS: VALSARTAN/SACUBITRIL 26/24MG TAB PO SCH (22:52)
[2023-06-22] MEDS: METOPROLOL SUCC 25MG EXT REL TAB PO SCH (23:23)
[2023-06-23 02:36] LABS: Hematocrit (blood only) 36.8 % (37.0-47.0); Hemoglobin 12.4 g/dl (12.0-16.0); Mean Corpuscular Hemoglobin 31.9 pg (25.0-34.0); Mean Corpuscular Hgb Conc 33.7 g/dL (32.0-36.0); Mean Corpuscular Volume 94.6 fL (80.0-100.0); Mean Platelet Volume 9.5 fL (9.4-12.4); Platelet Count 231 K/uL (130-400); RDW Coefficient of Variation 13.8 % (11.5-14.5); RDW Standard Deviation 48.2 fL (36.4-46.3); Red Blood Count 3.89 M/uL (4.20-5.40); White Blood Count 6.83 K/ul (4.8-10.8)
--- NOTE | 2023-06-23 02:51 | Communication Note ---
Date of Service: June 23, 2023 SBP 80s, patient tachycardic, lactic acidosis on blood work as per RN. AP Severe sepsis SIRS plus lactic acid elevation Secondary to community-acquired pneumonia possible aspiration given encephalopathy Follow lactic acid response to IVF Zosyn in place of ceftriaxone continue Doxycycline Will relay to AM provider.
[2023-06-23] MEDS: MIDODRINE HCL 2.5 MG TAB PO SCH ×4 (02:58→17:50)
[2023-06-23] MEDS: PIPERACILLIN/TAZOBACTAM 4.5 GM in DEXTROSE 5% 100 ML IV SCH ×3 (03:20→20:12)
[2023-06-23] MEDS: LEVOTHYROXINE SODIUM 75 MCG TABLET PO SCH (06:10)
[2023-06-23 06:44] LABS: BUN Creatinine Ratio 23.6 (10-20); Calcium 9.5 mg/dl (8.6-10.3); Est GFR (Non-African American) 57.8 ml/min; Magnesium 2.3 mg/dl (1.7-2.4); Potassium 3.5 mmol/L (3.5-5.1)
[2023-06-23] MEDS ORDERED: ALBUT/IPRATROP 3MG/0.5MG NEB 3 ML VIAL NEB SCH (07:00)
[2023-06-23] MEDS: DOXYCYCLINE HYCLATE 100 MG in DEXTROSE 5% 100 ML IV SCH ×2 (07:31→17:54)
[2023-06-23] MEDS: PREGABALIN 75 MG CAP PO SCH ×3 (07:40→20:13)
[2023-06-23] MEDS: ENOXAPARIN INJ 40 MG/0.4 ML SYR SQ SCH (07:41)
[2023-06-23] MEDS: FLUTICASONE FUROATE 100MCG 14 PUFFS/INHALER INH SCH (07:41)
[2023-06-23] MEDS: guaiFENesin 600 MG TABCR PO SCH ×2 (07:42→20:13)
[2023-06-23] MEDS: METOPROLOL SUCC 50MG EXT REL TAB PO SCH (07:43)
[2023-06-23] MEDS: UMECLIDINIUM/VILANTEROL 62.5/25MCG 7 PUFFS/INHALER INH SCH (07:43)
[2023-06-23] MEDS: FOLIC ACID 1 MG TAB PO SCH (07:43)
[2023-06-23] MEDS: ASPIRIN 81 MG ECTAB PO SCH (07:44)
[2023-06-23] MEDS: PANTOprazole 40 MG TAB PO SCH ×2 (07:45→20:13)
[2023-06-23] MEDS: VALSARTAN/SACUBITRIL 26/24MG TAB PO SCH (07:46)
[2023-06-23] MEDS ORDERED: MIDODRINE HCL 2.5 MG TAB PO SCH (08:00)
[2023-06-23] MEDS ORDERED: methylPREDNISolone 125 MG/2 ML VIAL IV SCH (09:00)
[2023-06-23] MEDS ORDERED: methylPREDNISolone 125 MG in SYRINGE 0 ML IV SCH (09:00)
[2023-06-23] MEDS ORDERED: SPIRONOLACTONE 12.5 MG TAB PO SCH (09:00)
[2023-06-23 10:59] LABS: Thyroid Stimulating Hormone 1.608 uIu/ml (0.300-4.500)
[2023-06-23 11:00] LABS: T4 Free Thyroxine 0.82 ng/dl (0.61-1.60)
--- NOTE | 2023-06-23 11:00 | XRay Report ---
SINGLE VIEW CHEST CLINICAL HISTORY: COPD. FINDINGS: 2 AP upright chest radiographs are compared to study dated 06/22/2023 and correlated with est CT dated 05/23/2022. The cardiomediastinal silhouette is unremarkable noting atherosclerotic calcif ication of the thoracic aorta. Advanced emphysema and chronic interstitial thickening is similar to p revious. Apical scarring is observed with postsurgical change on the left. Additional foci of parench ymal scarring are seen throughout both lungs. No airspace consolidation or large pleural effusion is identified. No pneumothorax is seen. The skeletal structures are osteopenic. The bony thorax is gross ly intact. IMPRESSION: 1. Advanced emphysematous change with no acute cardiopulmonary abnormality identified. 2. Mild patchy airspace opacities suggested in the left lung on yesterday's examination are no longer appreciated. ACT 112: Negative or not required by law. Electronically signed by: Binh Henson M.D. 06/23/2023 10:58 AM
--- NOTE | 2023-06-23 16:07 | Hospitalist Progress Note ---
Date of Service June 23, 2023 Assessment & Plan (1) COPD exacerbation: (2) HFrEF (heart failure with reduced ejection fraction): (3) CAD (coronary artery disease): (4) Hypertension: (5) Depression: (6) Anxiety: (7) Hypothyroidism: (8) Left lower lobe pneumonia: (9) Acute metabolic encephalopathy: Plan Per admitting service notes with addendum: 57 year old with SOB and AMS over past few days per family. (+) cough and not taking medications, including breathing treatment at home over past few days. Wears 2LNC / at home. WBC 9.92; CXR advanced emphysema with possible pneumonitis. Blood, urine and sputum cultures pending. Nebs QID + Q2 PRN, Doxy given in ED; continue with Rocephin pending cultures. Add'l PMH includes HFrEF, CAD s/p AMI, HTN, HLD, Hypothyroidism, GERD. LEFT LOWER LOBE PNEUMONIA COPD EXACERBATION CHRONIC RESPIRATORY FAILURE ON HOME O2, 2 L ACUTE METABOLIC ENCEPHALOPATHY SECONDARY TO ABOVE WBC 9.92 Wears 2LNC supplemental O2 at home.15/06 Chest x-ray reveals advanced emphysema with questionable pneumonitis to correlat e clinically 06/23 Clinically improving Afebrile On 2 L of oxygen, which is her baseline Sputum culture: Pending Blood cultures: Pending Continue Zosyn IV day #2: Doxycycline IV day #2 Solu-Medrol 40 mg every 12 hours, transition to prednisone soon As needed nebs-patient experiencing tremors and tachycardia with nebs HFrEF: Last ECHO: 03/14; reduced EF 35 to 39%, at that time loculated pericardial effusion, with moderate diffuse left ventricular hypokinesis. Obtain ECHO while inpt --Patient appears to be euvolemic-on the dry side -- BP on the lower side Entresto held -- Continue Jardiance Continue midodrine Advised to increase fluid intake CAD: Status post AMI 2010; stent x1 placed Takes baby aspirin; continue HTN: Takes metoprolol; continue HLD: Was taking Repatha; not taking anymore per outpatient records Hypothyroidism: Takes levothyroxine; continue GERD: Takes omeprazole; continue Disposition: PCP: Code Status: Full Code VTE Prophylaxis: Lovenox SQ I spent a total of 88 minutes coordinating, documenting, and providing care for this patient excluding time spent in the performance of separately billed services. All of the aforementioned completed while collaborating with the assigned attending physician for a full treatment plan. Please see their addendum for further details. Admission and Anticipated Discharge Date Admission Date: June 22, 2023 Subjective Follow-up for COPD exacerbation, left lower lobe pneumonia, etc. Seen resting in bed, comfortable, not in distress On 2 L of oxygen by nasal cannula States that she feels slightly improved compared to yesterday Still having yellow sputum, intermittent cough Breathing is improving Feels cold, but no chills No other new symptoms Review of Systems Review of Systems: all noted and negative except for above Physical Exam Physical Exam: General- oriented x 3, not in distress, speaks in sentences with no effort or accessory muscle use Eyes- anicteric Neck- no JVD Lungs-positive mild possible left base, no wheezing Heart- normal rate, regular rhythm; no murmurs Abdomen- normal bowel sounds, nondistended, soft, nontender Extremities- no pretibial edema, no calf tenderness Neuro- alert, oriented x 3; no gross focal neurologic deficits Skin- warm & dry Results & Data Results & Data Vital Signs (Past 12 Hours) Vital Signs Temp Pulse Pulse Resp BP Pulse Ox O2 Del Method 06/23/23 15:22 37.1 C 92 H 16 104/68 96 Nasal Cannula 06/23/23 12:02 37.1 C 82 16 102/66 99 Room Air 06/23/23 08:00 Nasal Cannula 06/23/23 08:08 37.1 C 99 H 16 98/66 L 98 Nasal Cannula 06/23/23 06:59 93 H 06/23/23 04:27 99 H 111/74 O2 Flow Rate 06/23/23 15:22 2 06/23/23 12:02 06/23/23 08:00 2 06/23/23 08:08 2 06/23/23 06:59 06/23/23 04:27 all noted and reviewed including below
[2023-06-23] MEDS: ACETAMINOPHEN 325 MG TAB PO PRN (18:44)
[2023-06-23] MEDS: METOPROLOL SUCC 25MG EXT REL TAB PO SCH (20:13)
[2023-06-23] MEDS: methylPREDNISolone 40 MG in SYRINGE 0 ML IV SCH (20:24)
[2023-06-24] MEDS: METHOCARBAMOL 500 MG TABLET PO PRN ×3 (00:39→23:43)
[2023-06-24] MEDS: PIPERACILLIN/TAZOBACTAM 4.5 GM in DEXTROSE 5% 100 ML IV SCH ×3 (02:00→20:49)
[2023-06-24 02:44] LABS: Appearance Urine Clear (Clear); Bacteria Urine Automated Negative (Negative); Bilirubin Urine Negative (Negative); Blood Urine Negative (Negative); Cast Urine Automated 0 /lpf (0-5); Color Urine Yellow; Glucose Urine UA Negative (Negative); Ketones Urine Negative (Negative); Leukocyte Esterase Urine Trace (Negative); Nitrite Urine Negative (Negative); Protein Urine Negative (Negative); RBC Urine Automated 0-4 /hpf (0-4); Urobilinogen Urine Negative (Negative)
[2023-06-24] MEDS: ONDANSETRON INJ 2 MG/ML 2 ML VIAL IV PRN ×3 (03:09→19:12)
[2023-06-24] MEDS: LEVOTHYROXINE SODIUM 75 MCG TABLET PO SCH (05:19)
[2023-06-24] MEDS: ACETAMINOPHEN 325 MG TAB PO PRN ×2 (05:19→12:54)
[2023-06-24] MEDS: methylPREDNISolone 40 MG in SYRINGE 0 ML IV SCH ×2 (05:56→19:11)
[2023-06-24] MEDS: DOXYCYCLINE HYCLATE 100 MG in DEXTROSE 5% 100 ML IV SCH ×2 (05:56→18:16)
--- NOTE | 2023-06-24 06:28 | Electrocardiogram Report ---
Test Reason : Blood Pressure : / mmHG Vent. Rate : 113 BPM Atrial Rate : 113 BPM P-R Int : 136 ms QRS Dur : 084 ms QT Int : 320 ms P-R-T Axes : 088 089 049 degrees QTc Int : 438 ms Poor data quality, interpretation may be adversely affected Sinus tachycardia Biatrial enlargement Nonspecific ST and T wave abnormality Abnormal ECG When compared with ECG of 19-OCT-2022 12:38, Premature ventricular complexes are no longer Present Nonspecific T wave abnormality now evident in Inferior leads Confirmed by Tyrese Jackson ([id number]) on 06/24/2023 6:27:39 AM Referred By: REFERRED SELF Confirmed By:Tyrese Jackson
[2023-06-24] MEDS: ALBUT/IPRATROP 3MG/0.5MG NEB 3 ML VIAL NEB SCH ×3 (06:55→19:21)
[2023-06-24] MEDS: MIDODRINE HCL 2.5 MG TAB PO SCH ×3 (08:05→16:32)
[2023-06-24] MEDS: FLUTICASONE FUROATE 100MCG 14 PUFFS/INHALER INH SCH (08:14)
[2023-06-24] MEDS: PANTOprazole 40 MG TAB PO SCH ×2 (08:15→20:49)
[2023-06-24] MEDS: UMECLIDINIUM/VILANTEROL 62.5/25MCG 7 PUFFS/INHALER INH SCH (08:15)
[2023-06-24] MEDS: guaiFENesin 600 MG TABCR PO SCH ×2 (08:16→20:49)
[2023-06-24] MEDS: ASPIRIN 81 MG ECTAB PO SCH (08:17)
[2023-06-24] MEDS: METOPROLOL SUCC 50MG EXT REL TAB PO SCH (08:17)
[2023-06-24] MEDS: FOLIC ACID 1 MG TAB PO SCH (08:17)
[2023-06-24] MEDS: ENOXAPARIN INJ 40 MG/0.4 ML SYR SQ SCH (08:18)
[2023-06-24] MEDS: PREGABALIN 75 MG CAP PO SCH ×3 (08:26→21:05)
--- NOTE | 2023-06-24 08:54 | Hospitalist Progress Note ---
Date of Service June 24, 2023 Assessment & Plan (1) COPD exacerbation: (2) HFrEF (heart failure with reduced ejection fraction): (3) CAD (coronary artery disease): (4) Hypertension: (5) Depression: (6) Anxiety: (7) Hypothyroidism: (8) Left lower lobe pneumonia: (9) Acute metabolic encephalopathy: Plan 57 year old with SOB and AMS over past few days per family. (+) cough and not taking medications, including breathing treatment at home over past few days. Wears 2LNC / at home. WBC 9.92; CXR advanced emphysema with possible pneumonitis. Blood, urine and sputum cultures pending. Nebs QID + Q2 PRN, Doxy given in ED; continue with Rocephin pending cultures. Add'l PMH includes HFrEF, CAD s/p AMI, HTN, HLD, Hypothyroidism, GERD. LEFT LOWER LOBE PNEUMONIA COPD EXACERBATION CHRONIC RESPIRATORY FAILURE ON HOME O2, 2 L ACUTE METABOLIC ENCEPHALOPATHY SECONDARY TO ABOVE WBC 9.92 Wears 2LNC supplemental O2 at home.15/06 Chest x-ray reveals advanced emphysema with questionable pneumonitis to correlate clinically / Clinically improving Afebrile On 2 L of oxygen, which is her baseline Sputum culture: Pending Blood cultures: Pending Continue Zosyn IV and Doxycycline Solu-Medrol 40 mg every 12 hours, transition to prednisone soon As needed nebs-patient experiencing tremors and tachycardia with nebs HFrEF: Last ECHO: 03/14; reduced EF 35 to 39%, at that time loculated pericardial effusion, with moderate diffuse left ventricular hypokinesis. Obtained ECHO while inpt -there is borderline mild diffuse LV hypokinesis. LV systolic function is mildly reduced. LVEF 45 to 50%. RV appears small and underfilled suggestive of hypovolemia. There is a small to moderately sized anterior and right lateral pericardial effusion with fibrinous strands consistent with some degree of chronicity. There are no echocardiographic indications of cardiac tamponade. Compared to her prior study from October 2022, LVEF is unchanged. The size of the pericardial effusion is unchanged. Fibrinous strands now present. --Patient appears to be euvolemic-on the dry side -- BP on the lower side Entresto held -- Continue Jardiance Continue midodrine Advised to increase fluid intake CAD: Status post AMI 2010; stent x1 placed Takes baby aspirin; continue HTN: Takes metoprolol; continue HLD: Was taking Repatha; not taking anymore per outpatient records Hypothyroidism: Takes levothyroxine; continue GERD: Takes omeprazole; continue Disposition: PCP: Code Status: Full Code VTE Prophylaxis: Lovenox SQ Admission and Anticipated Discharge Date Admission Date: June 22, 2023 Subjective Pt seen in follow-up for COPD exacerbation, left lower lobe pneumonia, etc. Seen resting in bed, comfortable, not in distress On 2 L of oxygen by nasal cannula States that she feels improved compared to yesterday Still having yellow sputum, intermittent cough Breathing is improving Reports loose stools Review of Systems Review of Systems: All systems reviewed & are unremarkable except as noted in Subjective Physical Exam Physical Exam: General- oriented x 3, not in distress, speaks in sentences with no effort or accessory muscle use Eyes- anicteric Neck- no JVD Lungs-positive mild rhonchi left base, no wheezing Heart- normal rate, regular rhythm; no murmurs Abdomen- normal bowel sounds, nondistended, soft, nontender Extremities- no pretibial edema, no calf tenderness Neuro- alert, oriented x 3; no gross focal neurologic deficits Skin- warm & dry Results & Data Results & Data Vital Signs (Past 12 Hours) Vital Signs Temp Pulse Pulse Resp BP Pulse Ox O2 Del Method 06/24/23 07:47 36.6 C 75 16 96/61 L 98 Nasal Cannula 06/24/23 06:55 82 16 99 Nasal Cannula 06/24/23 02:57 36.5 C 52 L 18 121/74 99 Nasal Cannula 06/23/23 22:34 67 06/23/23 23:01 36.9 C 60 18 131/80 99 Nasal Cannula 06/23/23 22:02 Nasal Cannula O2 Flow Rate 06/24/23 07:47 2 06/24/23 06:55 2 06/24/23 02:57 2 06/23/23 22:34 06/23/23 23:01 2 06/23/23 22:02 2 Laboratory Results 06/24/23 06/23/23 06/23/23 Range/Units 02:25 Unknown 06:36 TSH 1.608 (0.300-4.500) uIu/ml Free T4 0.82 (0.61-1.60) ng/dl Urine Color Yellow Urine Appearance Clear (Clear) Urine pH 6.0 (4.5-7.5) Ur Specific [place] 1.010 (1.000-1.030) Urine Protein Negative (Negative) Urine Glucose (UA) Negative (Negative) Urine Ketones Negative (Negative) Urine Blood Negative (Negative) Urine Nitrite Negative (Negative) Urine Bilirubin Negative (Negative) Urine Urobilinogen Negative (Negative) Ur Leukocyte Esterase Trace H (Negative) Urine WBC (Auto) 1-5 (0-5) /hpf Urine RBC (Auto) 0-4 (0-4) /hpf U Hyaline Cast (Auto) 0 (0-5) /lpf U Epithel Cells (Auto) 10-20 H (0-5) /lpf Urine Bacteria (Auto) Negative (Negative) Nasal Screen MRSA (PCR) Negative (Negative) Medications Administered Current Inpatient Medications Acetaminophen (Acetaminophen 325 Mg Tab) 650 mg PO Q4H PRN PRN Reason: Pain or Fever Stop: 07/22/23 20:00 Last Admin: 06/24/23 05:19 Dose: 650 mg Al Hydrox/Mg Hydrox/Simethicone (Aluminum/Magnesium Susp 30 Ml Udc) 15 ml PO Q4H PRN PRN Reason: Dyspepsia Stop: 07/22/23 20:00 Albuterol (Albut/Ipratrop 3mg/0.5mg Neb 3 Ml Vial) 3 ml NEB QIDR PRN; Protocol PRN Reason: SOB/wheezing Stop: 07/23/23 06:59 Last Admin: 06/23/23 20:22 Dose: 3 ml Albuterol (Albut/Ipratrop 3mg/0.5mg Neb 3 Ml Vial) 3 ml NEB Q6R [facility]; Protocol Stop: 07/24/23 06:59 Last Admin: 06/24/23 06:55 Dose: 3 ml Aspirin (Aspirin 81 Mg Ectab) 81 mg PO QAM [facility] Stop: 07/23/23 08:59 Last Admin: 06/24/23 08:17 Dose: 81 mg Enoxaparin Sodium (Enoxaparin Inj 40 Mg/0.4 Ml Syr) 40 mg SQ QAM [facility] Stop: 07/23/23 08:59 Last Admin: 06/24/23 08:18 Dose: 40 mg Fluticasone Furoate (Fluticasone Furoate 100mcg 14 Puffs/Inhaler) 1 puffs INH DAILY [facility] Stop: 07/23/23 08:59 Last Admin: 06/24/23 08:14 Dose: 1 puffs Folic Acid (Folic Acid 1 Mg Tab) 1 mg PO QAM [facility] Stop: 07/23/23 08:59 Last Admin: 06/24/23 08:17 Dose: 1 mg Guaifenesin (Guaifenesin 600 Mg Tabcr) 1,200 mg PO Q12 [facility] Stop: 07/22/23 20:59 Last Admin: 06/24/23 08:16 Dose: 1,200 mg Doxycycline Hyclate 100 mg/ (Dextrose) 110 mls @ 50 mls/hr IV Q12H [facility] Stop: 06/30/23 06:59 Last Infusion: 06/24/23 08:24 Dose: Infused Piperacillin Sod/Tazobactam (Sod 4.5 gm/ Dextrose) 120 mls @ 30 mls/hr IV Q8H [facility]; Protocol Stop: 06/30/23 02:59 Last Infusion: 06/24/23 05:57 Dose: Infused Methylprednisolone 40 mg/ (Syringe) 0.64 mls @ 1.5 mls/min IV Q12H [facility] Stop: 07/23/23 18:59 Last Admin: 06/24/23 05:56 Dose: 1.5 mls/min Levothyroxine Sodium (Levothyroxine Sodium 75 Mcg Tablet) 75 mcg PO DAILYBB [facility] Stop: 07/23/23 06:29 Last Admin: 06/24/23 05:19 Dose: 75 mcg Magnesium Hydroxide (Magnesium Hydroxide Susp 30 Ml Udc) 30 ml PO Q12H PRN PRN Reason: Constipation Stop: 07/22/23 20:00 Methocarbamol (Methocarbamol 500 Mg Tablet) 500 mg PO TID PRN PRN Reason: muscle spasms Stop: 07/23/23 23:35 Last Admin: 06/24/23 00:39 Dose: 500 mg Metoprolol Succinate (Metoprolol Succ 25mg Ext Rel Tab) 25 mg PO HS [facility] Stop: 07/22/23 20:59 Last Admin: 06/23/23 20:13 Dose: 25 mg Metoprolol Succinate (Metoprolol Succ 50mg Ext Rel Tab) 50 mg PO QAM [facility] Stop: 07/23/23 08:59 Last Admin: 06/24/23 08:17 Dose: Not Given Midodrine (Midodrine Hcl 2.5 Mg Tab) 2.5 mg PO TID@0800,1200,1700 [facility] Stop: 07/23/23 02:24 Last Admin: 06/24/23 08:05 Dose: 2.5 mg Miscellaneous (Ergocalciferol: Order Awaiting Action) 1 each N/A DAILY [facility] Stop: 07/23/23 08:59 Last Admin: 06/23/23 07:44 Dose: 1 each Ondansetron HCl (Ondansetron Inj 2 Mg/Ml 2 Ml Vial) 4 mg IV Q6H PRN PRN Reason: Nausea Stop: 07/22/23 20:00 Last Admin: 06/24/23 03:09 Dose: 4 mg Pantoprazole Sodium (Pantoprazole 40 Mg Tab) 40 mg PO BID [facility] Stop: 07/22/23 20:59 Last Admin: 06/24/23 08:15 Dose: 40 mg Polyethylene Glycol (Polyethylene (Miralax) 17 Gm Pack) 17 gm PO DAILY PRN PRN Reason: Constipation Stop: 07/22/23 20:00 Pregabalin (Pregabalin 75 Mg Cap) 75 mg PO TID@0800,1200,2100 [facility] Stop: 07/22/23 20:59 Last Admin: 06/24/23 08:26 Dose: 75 mg Sacubitril/Valsartan (Valsartan/Sacubitril 26/24mg Tab) 1 tab PO BID [facility] Stop: 07/22/23 20:59 Last Admin: 06/23/23 07:46 Dose: 1 tab Umeclidinium/Vilanterol (Umeclidinium/Vilanterol 62.5/25mcg 7 Puffs/Inhaler) 1 puffs INH DAILY [facility] Stop: 07/23/23 08:59 Last Admin: 06/24/23 08:15 Dose: 1 puffs
[2023-06-24 10:02] LABS: Hemoglobin 12.2 g/dl (12.0-16.0); Mean Corpuscular Hemoglobin 32.1 pg (25.0-34.0); Mean Corpuscular Hgb Conc 33.9 g/dL (32.0-36.0); Mean Corpuscular Volume 94.7 fL (80.0-100.0); Mean Platelet Volume 9.5 fL (9.4-12.4); Platelet Count 224 K/uL (130-400); RDW Coefficient of Variation 13.9 % (11.5-14.5); RDW Standard Deviation 48.4 fL (36.4-46.3); White Blood Count 11.77 K/ul (4.8-10.8)
[2023-06-24 10:27] LABS: BUN Creatinine Ratio 17.8 (10-20); Calcium 8.9 mg/dl (8.6-10.3); Creatinine Clr Calc Pharmacy 38.9 ml/min; Est GFR (African American) 52.9 ml/min; Est GFR (Non-African American) 45.6 ml/min; Magnesium 1.8 mg/dl (1.7-2.4); Phosphorus 3.2 mg/dl (2.5-4.9); Potassium 3.5 mmol/L (3.5-5.1)
[2023-06-24] MEDS: ADVANCED PROBIOTIC 1250 MG CAPSULE PO SCH (17:12)
[2023-06-24] MEDS: METOPROLOL SUCC 25MG EXT REL TAB PO SCH (20:50)
[2023-06-25] MEDS: ALBUT/IPRATROP 3MG/0.5MG NEB 3 ML VIAL NEB SCH ×4 (00:49→19:30)
[2023-06-25] MEDS: PIPERACILLIN/TAZOBACTAM 4.5 GM in DEXTROSE 5% 100 ML IV SCH ×2 (02:03→11:22)
[2023-06-25] MEDS: ONDANSETRON INJ 2 MG/ML 2 ML VIAL IV PRN ×2 (04:30→23:19)
[2023-06-25] MEDS: methylPREDNISolone 40 MG in SYRINGE 0 ML IV SCH ×2 (06:16→18:03)
[2023-06-25] MEDS: DOXYCYCLINE HYCLATE 100 MG in DEXTROSE 5% 100 ML IV SCH ×2 (06:17→18:03)
[2023-06-25] MEDS: LEVOTHYROXINE SODIUM 75 MCG TABLET PO SCH (06:17)
[2023-06-25 08:07] LABS: Hematocrit (blood only) 35.1 % (37.0-47.0); Hemoglobin 11.6 g/dl (12.0-16.0); Mean Corpuscular Hemoglobin 32.3 pg (25.0-34.0); Mean Corpuscular Volume 97.8 fL (80.0-100.0); Mean Platelet Volume 9.6 fL (9.4-12.4); Platelet Count 223 K/uL (130-400); RDW Coefficient of Variation 14.2 % (11.5-14.5); RDW Standard Deviation 51.1 fL (36.4-46.3); Red Blood Count 3.59 M/uL (4.20-5.40); White Blood Count 8.96 K/ul (4.8-10.8)
[2023-06-25 08:13] LABS: Calcium 8.6 mg/dl (8.6-10.3); Magnesium 1.8 mg/dl (1.7-2.4); Potassium 3.2 mmol/L (3.5-5.1)
[2023-06-25 08:19] LABS: BUN Creatinine Ratio 17.7 (10-20); Creatinine Clr Calc Pharmacy 38.9 ml/min; Est GFR (African American) 52.4 ml/min; Est GFR (Non-African American) 45.2 ml/min; Phosphorus 2.8 mg/dl (2.5-4.9)
[2023-06-25] MEDS: UMECLIDINIUM/VILANTEROL 62.5/25MCG 7 PUFFS/INHALER INH SCH (08:30)
[2023-06-25] MEDS: FLUTICASONE FUROATE 100MCG 14 PUFFS/INHALER INH SCH (08:31)
[2023-06-25] MEDS: METOPROLOL SUCC 50MG EXT REL TAB PO SCH (08:31)
[2023-06-25] MEDS: PANTOprazole 40 MG TAB PO SCH ×2 (08:31→20:17)
[2023-06-25] MEDS: guaiFENesin 600 MG TABCR PO SCH ×2 (08:31→20:17)
[2023-06-25] MEDS: ASPIRIN 81 MG ECTAB PO SCH (08:32)
[2023-06-25] MEDS: ENOXAPARIN INJ 40 MG/0.4 ML SYR SQ SCH (08:32)
[2023-06-25] MEDS: FOLIC ACID 1 MG TAB PO SCH (08:32)
[2023-06-25] MEDS: MIDODRINE HCL 2.5 MG TAB PO SCH ×3 (08:32→16:49)
[2023-06-25] MEDS: ADVANCED PROBIOTIC 1250 MG CAPSULE PO SCH (08:32)
[2023-06-25] MEDS: PREGABALIN 75 MG CAP PO SCH ×3 (08:39→20:16)
[2023-06-25] MEDS ORDERED: POTASSIUM CHLORIDE CRTAB 20 MEQ TABCR PO STA (08:44)
--- NOTE | 2023-06-25 08:45 | Hospitalist Progress Note ---
Date of Service June 25, 2023 Assessment & Plan (1) COPD exacerbation: (2) HFrEF (heart failure with reduced ejection fraction): (3) CAD (coronary artery disease): (4) Hypertension: (5) Depression: (6) Anxiety: (7) Hypothyroidism: (8) Left lower lobe pneumonia: (9) Acute metabolic encephalopathy: Plan 57 year old with SOB and AMS over past few days per family. (+) cough and not taking medications, including breathing treatment at home over past few days. Wears 2LNC 15/06 at home. WBC 9.92; CXR advanced emphysema with possible pneumonitis. Blood, urine and sputum cultures pending. Nebs QID + Q2 PRN, Doxy given in ED; continue with Rocephin pending cultures. Add'l PMH includes HFrEF, CAD s/p AMI, HTN, HLD, Hypothyroidism, GERD. LEFT LOWER LOBE PNEUMONIA COPD EXACERBATION CHRONIC RESPIRATORY FAILURE ON HOME O2, 2 L ACUTE METABOLIC ENCEPHALOPATHY SECONDARY TO ABOVE WBC 9.92 Wears 2LNC supplemental O2 at home.15/06 Chest x-ray reveals advanced emphysema with questionable pneumonitis to correlate clinically / Clinically improving Afebrile On 2 L of oxygen, which is her baseline Sputum culture: normal zan Blood cultures: negat. in 48 hrs WBC down despite being on steroids Switch Zosyn IV to po augmentin and cont. Doxycycline Solu-Medrol 40 mg every 12 hours-> switch to daily , can't transition to prednisone as pt says she can't tolerate po prednisone As needed nebs-patient experiencing tremors and tachycardia with nebs HFrEF: Last ECHO: 03/14; reduced EF 35 to 39%, at that time loculated pericardial effusion, with moderate diffuse left ventricular hypokinesis. Obtained ECHO while inpt -there is borderline mild diffuse LV hypokinesis. LV systolic function is mildly reduced. LVEF 45 to 50%. RV appears small and underfilled suggestive of hypovolemia. There is a small to moderately sized anterior and right lateral pericardial effusion with fibrinous strands consistent with some degree of chronicity. There are no echocardiographic indications of cardiac tamponade. Compared to her prior study from October 2022, LVEF is unchanged. The size of the pericardial effusion is unchanged. Fibrinous strands now present. --Patient appears to be euvolemic-on the dry side -- BP on the lower side Entresto held -- Continue Jardiance Continue midodrine Advised to increase fluid intake CAD: Status post AMI 2010; stent x1 placed Takes baby aspirin; continue HTN: Takes metoprolol; continue HLD: Was taking Repatha; not taking anymore per outpatient records Hypothyroidism: Takes levothyroxine; continue GERD: Takes omeprazole; continue Disposition: PCP: Code Status: Full Code VTE Prophylaxis: Lovenox SQ Admission and Anticipated Discharge Date Admission Date: June 22, 2023 Subjective Pt seen in follow-up for COPD exacerbation, left lower lobe pneumonia, etc. Seen resting in bed, comfortable, not in distress Pt's daughters present at the bedside Pt on 2 L of oxygen by nasal cannula States that she feels improved, but still having yellow sputum, intermittent cough Breathing is improving Reports loose stools - c.diff checked and negative, pt on probiotics Review of Systems Review of Systems: All systems reviewed & are unremarkable except as noted in Subjective Physical Exam Physical Exam: General- oriented x 3, not in distress, speaks in sentences with no effort or accessory muscle use Eyes- anicteric Neck- no JVD Lungs-positive mild rhonchi left base, no wheezing Heart- normal rate, regular rhythm; no murmurs Abdomen- normal bowel sounds, nondistended, soft, nontender Extremities- no pretibial edema, no calf tenderness Neuro- alert, oriented x 3; no gross focal neurologic deficits Skin- warm & dry Results & Data Results & Data Vital Signs (Past 12 Hours) Vital Signs Temp Pulse Pulse Resp BP Pulse Ox O2 Del Method 06/25/23 07:38 36.6 C 90 16 127/73 98 Nebulizer 06/25/23 07:11 79 16 99 Nasal Cannula 06/25/23 02:37 36.7 C 92 H 16 104/62 96 Nasal Cannula 06/25/23 01:20 91 H 06/25/23 00:49 80 17 98 Nasal Cannula 06/24/23 23:25 Nasal Cannula 06/24/23 22:43 36.7 C 74 18 101/64 99 Nasal Cannula O2 Flow Rate 06/25/23 07:38 06/25/23 07:11 2 06/25/23 02:37 2 06/25/23 01:20 06/25/23 00:49 2 06/24/23 23:25 2 06/24/23 22:43 2 Laboratory Results 06/25/23 06/25/23 06/24/23 Range/Units 07:03 07:03 09:35 WBC 8.96 (4.8-10.8) K/ul RBC 3.59 L (4.20-5.40) M/uL Hgb 11.6 L (12.0-16.0) g/dl Hct 35.1 L (37.0-47.0) % MCV 97.8 (80.0-100.0) fL MCH 32.3 (25.0-34.0) pg MCHC 33.0 (32.0-36.0) g/dL RDW Std Deviation 51.1 H (36.4-46.3) fL RDW Coeff of [place]iko 14.2 (11.5-14.5) % Plt Count 223 (130-400) K/uL MPV 9.6 (9.4-12.4) fL Sodium 137 135 L (136-145) mmol/L Potassium 3.2 L 3.5 (3.5-5.1) mmol/L Chloride 109 H 105 (98-107) mmol/L Carbon Dioxide 20 L 23 (21-32) mmol/L Anion Gap 8 7 (3-11) BUN 23 23 (6-23) mg/dl Creatinine 1.30 H 1.29 H (0.6-1.2) mg/dl Est Cr Clr Drug Dosing 38.9 38.9 ml/min Est GFR ( Amer) 52.4 52.9 ml/min Est GFR (Non-Af Amer) 45.2 45.6 ml/min BUN/Creatinine Ratio 17.7 17.8 (10-20) Glucose 125 H 185 H (70-99(Fasting)) mg/dl Calcium 8.6 8.9 (8.6-10.3) mg/dl Phosphorus 2.8 3.2 (2.5-4.9) mg/dl Magnesium 1.8 1.8 (1.7-2.4) mg/dl 06/24/23 Range/Units 09:35 WBC 11.77 H (4.8-10.8) K/ul RBC 3.80 L (4.20-5.40) M/uL Hgb 12.2 (12.0-16.0) g/dl Hct 36.0 L (37.0-47.0) % MCV 94.7 (80.0-100.0) fL MCH 32.1 (25.0-34.0) pg MCHC 33.9 (32.0-36.0) g/dL RDW Std Deviation 48.4 H (36.4-46.3) fL RDW Coeff of [place]iko 13.9 (11.5-14.5) % Plt Count 224 (130-400) K/uL MPV 9.5 (9.4-12.4) fL Sodium (136-145) mmol/L Potassium (3.5-5.1) mmol/L Chloride (98-107) mmol/L Carbon Dioxide (21-32) mmol/L Anion Gap (3-11) BUN (6-23) mg/dl Creatinine (0.6-1.2) mg/dl Est Cr Clr Drug Dosing ml/min Est GFR ( Amer) ml/min Est GFR (Non-Af Amer) ml/min BUN/Creatinine Ratio (10-20) Glucose (70-99(Fasting)) mg/dl Calcium (8.6-10.3) mg/dl Phosphorus (2.5-4.9) mg/dl Magnesium (1.7-2.4) mg/dl Medications Administered Current Inpatient Medications Acetaminophen (Acetaminophen 325 Mg Tab) 650 mg PO Q4H PRN PRN Reason: Pain or Fever Stop: 07/22/23 20:00 Last Admin: 06/24/23 12:54 Dose: 650 mg Al Hydrox/Mg Hydrox/Simethicone (Aluminum/Magnesium Susp 30 Ml Udc) 15 ml PO Q4H PRN PRN Reason: Dyspepsia Stop: 07/22/23 20:00 Albuterol (Albut/Ipratrop 3mg/0.5mg Neb 3 Ml Vial) 3 ml NEB QIDR PRN; Protocol PRN Reason: SOB/wheezing Stop: 07/23/23 06:59 Last Admin: 06/23/23 20:22 Dose: 3 ml Albuterol (Albut/Ipratrop 3mg/0.5mg Neb 3 Ml Vial) 3 ml NEB Q6R [facility]; Protocol Stop: 07/24/23 06:59 Last Admin: 06/25/23 07:09 Dose: 3 ml Aspirin (Aspirin 81 Mg Ectab) 81 mg PO QAM [facility] Stop: 07/23/23 08:59 Last Admin: 06/25/23 08:32 Dose: 81 mg Enoxaparin Sodium (Enoxaparin Inj 40 Mg/0.4 Ml Syr) 40 mg SQ QAM [facility] Stop: 07/23/23 08:59 Last Admin: 06/25/23 08:32 Dose: 40 mg Ergocalciferol (Ergocalciferol 50,000 Units 1250 Mcg Cap) 50,000 units PO Q30D [facility] Stop: 07/25/23 08:59 Last Admin: 06/25/23 08:31 Dose: 50,000 units Fluticasone Furoate (Fluticasone Furoate 100mcg 14 Puffs/Inhaler) 1 puffs INH DAILY [facility] Stop: 07/23/23 08:59 Last Admin: 06/25/23 08:31 Dose: 1 puffs Folic Acid (Folic Acid 1 Mg Tab) 1 mg PO QAM [facility] Stop: 07/23/23 08:59 Last Admin: 06/25/23 08:32 Dose: 1 mg Guaifenesin (Guaifenesin 600 Mg Tabcr) 1,200 mg PO Q12 [facility] Stop: 07/22/23 20:59 Last Admin: 06/25/23 08:31 Dose: 1,200 mg Doxycycline Hyclate 100 mg/ (Dextrose) 110 mls @ 50 mls/hr IV Q12H [facility] Stop: 06/30/23 06:59 Last Admin: 06/25/23 06:17 Dose: 50 mls/hr Piperacillin Sod/Tazobactam (Sod 4.5 gm/ Dextrose) 120 mls @ 30 mls/hr IV Q8H [facility]; Protocol Stop: 06/30/23 02:59 Last Infusion: 06/25/23 06:17 Dose: Infused Methylprednisolone 40 mg/ (Syringe) 0.64 mls @ 1.5 mls/min IV Q12H [facility] Stop: 07/23/23 18:59 Last Admin: 06/25/23 06:16 Dose: 1.5 mls/min Lactobacillus Acidophilus (Advanced Probiotic 1250 Mg Capsule) 2 cap PO DAILY [facility] Stop: 07/24/23 16:44 Last Admin: 06/25/23 08:32 Dose: 2 cap Levothyroxine Sodium (Levothyroxine Sodium 75 Mcg Tablet) 75 mcg PO DAILYBB [facility] Stop: 07/23/23 06:29 Last Admin: 06/25/23 06:17 Dose: 75 mcg Magnesium Hydroxide (Magnesium Hydroxide Susp 30 Ml Udc) 30 ml PO Q12H PRN PRN Reason: Constipation Stop: 07/22/23 20:00 Methocarbamol (Methocarbamol 500 Mg Tablet) 500 mg PO TID PRN PRN Reason: muscle spasms Stop: 07/23/23 23:35 Last Admin: 06/24/23 23:43 Dose: 500 mg Metoprolol Succinate (Metoprolol Succ 25mg Ext Rel Tab) 25 mg PO HS [facility] Stop: 07/22/23 20:59 Last Admin: 06/24/23 20:50 Dose: Not Given Metoprolol Succinate (Metoprolol Succ 50mg Ext Rel Tab) 50 mg PO QAM [facility] Stop: 07/23/23 08:59 Last Admin: 06/25/23 08:31 Dose: 50 mg Midodrine (Midodrine Hcl 2.5 Mg Tab) 2.5 mg PO TID@0800,1200,1700 [facility] Stop: 07/23/23 02:24 Last Admin: 06/25/23 08:32 Dose: 2.5 mg Ondansetron HCl (Ondansetron Inj 2 Mg/Ml 2 Ml Vial) 4 mg IV Q6H PRN PRN Reason: Nausea Stop: 07/22/23 20:00 Last Admin: 06/25/23 04:30 Dose: 4 mg Pantoprazole Sodium (Pantoprazole 40 Mg Tab) 40 mg PO BID [facility] Stop: 07/22/23 20:59 Last Admin: 06/25/23 08:31 Dose: 40 mg Polyethylene Glycol (Polyethylene (Miralax) 17 Gm Pack) 17 gm PO DAILY PRN PRN Reason: Constipation Stop: 07/22/23 20:00 Pregabalin (Pregabalin 75 Mg Cap) 75 mg PO TID@0800,1200,2100 [facility] Stop: 07/22/23 20:59 Last Admin: 06/25/23 08:39 Dose: 75 mg Sacubitril/Valsartan (Valsartan/Sacubitril 26/24mg Tab) 1 tab PO BID [facility] Stop: 07/22/23 20:59 Last Admin: 06/23/23 07:46 Dose: 1 tab Umeclidinium/Vilanterol (Umeclidinium/Vilanterol 62.5/25mcg 7 Puffs/Inhaler) 1 puffs INH DAILY [facility] Stop: 07/23/23 08:59 Last Admin: 06/25/23 08:30 Dose: 1 puffs
[2023-06-25] MEDS ORDERED: ERGOCALCIFEROL 50,000 UNITS 1250 MCG CAP PO SCH (09:00)
[2023-06-25] MEDS ORDERED: LORazepam 0.5 MG TAB PO STA (12:11)
[2023-06-25] MEDS: METHOCARBAMOL 500 MG TABLET PO PRN (20:16)
[2023-06-25] MEDS: AMOXICILLIN/CLAVULANATE 875 MG TAB PO SCH (20:17)
[2023-06-25] MEDS: METOPROLOL SUCC 25MG EXT REL TAB PO SCH (20:17)
[2023-06-26] MEDS: DOXYCYCLINE HYCLATE 100 MG in DEXTROSE 5% 100 ML IV SCH ×2 (06:10→18:07)
[2023-06-26] MEDS: LEVOTHYROXINE SODIUM 75 MCG TABLET PO SCH (06:10)
[2023-06-26] MEDS: ALBUT/IPRATROP 3MG/0.5MG NEB 3 ML VIAL NEB SCH ×4 (07:21→19:16)
[2023-06-26] MEDS: MIDODRINE HCL 2.5 MG TAB PO SCH ×3 (07:57→16:34)
[2023-06-26] MEDS: METHOCARBAMOL 500 MG TABLET PO PRN ×2 (07:57→21:40)
[2023-06-26] MEDS: PREGABALIN 75 MG CAP PO SCH ×3 (07:57→21:33)
[2023-06-26] MEDS: PANTOprazole 40 MG TAB PO SCH ×2 (07:57→21:34)
[2023-06-26 07:58] LABS: Hemoglobin 13.6 g/dl (12.0-16.0); Mean Corpuscular Hemoglobin 32.5 pg (25.0-34.0); Mean Corpuscular Volume 95.7 fL (80.0-100.0); Mean Platelet Volume 9.9 fL (9.4-12.4); Platelet Count 268 K/uL (130-400); RDW Coefficient of Variation 14.1 % (11.5-14.5); RDW Standard Deviation 49.9 fL (36.4-46.3); Red Blood Count 4.18 M/uL (4.20-5.40); White Blood Count 10.42 K/ul (4.8-10.8)
[2023-06-26] MEDS: ADVANCED PROBIOTIC 1250 MG CAPSULE PO SCH (07:59)
[2023-06-26] MEDS: ASPIRIN 81 MG ECTAB PO SCH (08:31)
[2023-06-26] MEDS: guaiFENesin 600 MG TABCR PO SCH ×2 (08:31→21:35)
[2023-06-26] MEDS: AMOXICILLIN/CLAVULANATE 875 MG TAB PO SCH ×2 (08:31→21:35)
[2023-06-26] MEDS: METOPROLOL SUCC 50MG EXT REL TAB PO SCH (08:31)
[2023-06-26] MEDS: UMECLIDINIUM/VILANTEROL 62.5/25MCG 7 PUFFS/INHALER INH SCH (08:32)
[2023-06-26] MEDS: FLUTICASONE FUROATE 100MCG 14 PUFFS/INHALER INH SCH (08:32)
[2023-06-26] MEDS: FOLIC ACID 1 MG TAB PO SCH (08:36)
[2023-06-26] MEDS: ENOXAPARIN INJ 40 MG/0.4 ML SYR SQ SCH (08:36)
[2023-06-26 09:04] LABS: BUN Creatinine Ratio 21.5 (10-20); Calcium 9.4 mg/dl (8.6-10.3); Creatinine Clr Calc Pharmacy 41.6 ml/min; Est GFR (African American) 57.1 ml/min; Est GFR (Non-African American) 49.3 ml/min; Magnesium 1.8 mg/dl (1.7-2.4); Phosphorus 2.5 mg/dl (2.5-4.9); Potassium 3.9 mmol/L (3.5-5.1)
--- NOTE | 2023-06-26 09:12 | Hospitalist Progress Note ---
Date of Service June 26, 2023 Assessment & Plan (1) COPD exacerbation: (2) HFrEF (heart failure with reduced ejection fraction): (3) CAD (coronary artery disease): (4) Hypertension: (5) Depression: (6) Anxiety: (7) Hypothyroidism: (8) Left lower lobe pneumonia: (9) Acute metabolic encephalopathy: Plan 57 year old with SOB and AMS over past few days per family. (+) cough and not taking medications, including breathing treatment at home over past few days. Wears 2LNC 15/06 at home. WBC 9.92; CXR advanced emphysema with possible pneumonitis. Blood, urine and sputum cultures pending. Nebs QID + Q2 PRN, Doxy given in ED; continue with Rocephin pending cultures. Add'l PMH includes HFrEF, CAD s/p AMI, HTN, HLD, Hypothyroidism, GERD. LEFT LOWER LOBE PNEUMONIA COPD EXACERBATION CHRONIC RESPIRATORY FAILURE ON HOME O2, 2 L ACUTE METABOLIC ENCEPHALOPATHY SECONDARY TO ABOVE WBC 9.92 Wears 2LNC supplemental O2 at home.15/06 Chest x-ray reveals advanced emphysema with questionable pneumonitis to correlate clinically / Clinically improving Afebrile On 2 L of oxygen, which is her baseline Sputum culture: normal zan Blood cultures: negat. in 48 hrs WBC down despite being on steroids Switch Zosyn IV to po augmentin and cont. Doxycycline Solu-Medrol 40 mg every 12 hours-> switch to daily , can't transition to prednisone as pt says she can't tolerate po prednisone As needed nebs-patient experiencing tremors and tachycardia with nebs Diarrhea - c. diff negative - ok to give imodium HFrEF: Last ECHO: 03/14; reduced EF 35 to 39%, at that time loculated pericardial effusion, with moderate diffuse left ventricular hypokinesis. Obtained ECHO while inpt -there is borderline mild diffuse LV hypokinesis. LV systolic function is mildly reduced. LVEF 45 to 50%. RV appears small and underfilled suggestive of hypovolemia. There is a small to moderately sized anterior and right lateral pericardial effusion with fibrinous strands consistent with some degree of chronicity. There are no echocardiographic indications of cardiac tamponade. Compared to her prior study from October 2022, LVEF is unchanged. The size of the pericardial effusion is unchanged. Fibrinous strands now present. --Patient appears to be euvolemic-on the dry side -- BP on the lower side Entresto held -- Continue Jardiance Continue midodrine Advised to increase fluid intake CAD: Status post AMI 2010; stent x1 placed Takes baby aspirin; continue HTN: Takes metoprolol; continue HLD: Was taking Repatha; not taking anymore per outpatient records Hypothyroidism: Takes levothyroxine; continue GERD: Takes omeprazole; continue Disposition: PCP: Code Status: Full Code VTE Prophylaxis: Lovenox SQ Admission and Anticipated Discharge Date Admission Date: June 22, 2023 Subjective Pt seen in follow-up for COPD exacerbation, left lower lobe pneumonia, etc. Seen resting in bed, comfortable, not in distress Pt on 2 L of oxygen by nasal cannula States that she feels improved, but still having yellow sputum, intermittent cough Breathing is improving Reports loose stools - c.diff checked and negative, pt on probiotics. Diarrhea bothersome - reports she can't make it to the bathroom. will provide imodium as c. diff is negative Review of Systems Review of Systems: All systems reviewed & are unremarkable except as noted in Subjective Physical Exam Physical Exam: General- oriented x 3, not in distress, speaks in sentences with no effort or accessory muscle use Eyes- anicteric Neck- no JVD Lungs-positive mild rhonchi left base, no wheezing Heart- normal rate, regular rhythm; no murmurs Abdomen- normal bowel sounds, nondistended, soft, nontender Extremities- no pretibial edema, no calf tenderness Neuro- alert, oriented x 3; no gross focal neurologic deficits Skin- warm & dry Results & Data Results & Data Vital Signs (Past 12 Hours) Vital Signs Temp Pulse Pulse Resp BP Pulse Ox O2 Del Method 06/26/23 07:50 36.8 C 70 16 157/84 H 99 Nasal Cannula 06/26/23 07:21 66 22 96 Nasal Cannula 06/26/23 07:00 71 06/26/23 02:46 36.6 C 78 18 129/84 99 Nasal Cannula 06/25/23 23:30 36.6 C 77 16 135/79 98 Nasal Cannula 06/25/23 21:59 86 06/25/23 21:27 36.7 C 81 16 121/77 94 Nasal Cannula 06/25/23 21:18 Nasal Cannula O2 Flow Rate 06/26/23 07:50 2.5 06/26/23 07:21 2 08/04/23 07:00 06/26/23 02:46 2 06/25/23 23:30 2 06/25/23 21:59 06/25/23 21:27 2 06/25/23 21:18 2 Laboratory Results 06/26/23 06/26/23 06/25/23 Range/Units 07:05 07:05 Unknown WBC 10.42 (4.8-10.8) K/ul RBC 4.18 L (4.20-5.40) M/uL Hgb 13.6 (12.0-16.0) g/dl Hct 40.0 (37.0-47.0) % MCV 95.7 (80.0-100.0) fL MCH 32.5 (25.0-34.0) pg MCHC 34.0 (32.0-36.0) g/dL RDW Std Deviation 49.9 H (36.4-46.3) fL RDW Coeff of Akiko 14.1 (11.5-14.5) % Plt Count 268 (130-400) K/uL MPV 9.9 (9.4-12.4) fL Sodium 137 (136-145) mmol/L Potassium 3.9 D (3.5-5.1) mmol/L Chloride 108 H (98-107) mmol/L Carbon Dioxide 23 (21-32) mmol/L Anion Gap 6 (3-11) BUN 26 H (6-23) mg/dl Creatinine 1.21 H (0.6-1.2) mg/dl Est Cr Clr Drug Dosing 41.6 ml/min Est GFR ( Amer) 57.1 ml/min Est GFR (Non-Af Amer) 49.3 ml/min BUN/Creatinine Ratio 21.5 H (10-20) Glucose 92 (70-99(Fasting)) mg/dl Calcium 9.4 (8.6-10.3) mg/dl Phosphorus 2.5 (2.5-4.9) mg/dl Magnesium 1.8 (1.7-2.4) mg/dl Stl C. diff Tox B Gene Negative Cdiff Gene (Neg) Medications Administered Current Inpatient Medications Acetaminophen (Acetaminophen 325 Mg Tab) 650 mg PO Q4H PRN PRN Reason: Pain or Fever Stop: 07/22/23 20:00 Last Admin: 06/24/23 12:54 Dose: 650 mg Al Hydrox/Mg Hydrox/Simethicone (Aluminum/Magnesium Susp 30 Ml Udc) 15 ml PO Q4H PRN PRN Reason: Dyspepsia Stop: 07/22/23 20:00 Albuterol (Albut/Ipratrop 3mg/0.5mg Neb 3 Ml Vial) 3 ml NEB QIDR PRN; Protocol PRN Reason: SOB/wheezing Stop: 07/23/23 06:59 Last Admin: 06/23/23 20:22 Dose: 3 ml Albuterol (Albut/Ipratrop 3mg/0.5mg Neb 3 Ml Vial) 3 ml NEB Q6R [facility]; Protocol Stop: 07/24/23 06:59 Last Admin: 06/26/23 07:21 Dose: 3 ml Amoxicillin/Clavulanate Potassium (Amoxicillin/Clavulanate 875 Mg Tab) 1 tab PO BID [facility]; Protocol Stop: 07/02/23 20:59 Last Admin: 06/26/23 08:31 Dose: 1 tab Aspirin (Aspirin 81 Mg Ectab) 81 mg PO QAM [facility] Stop: 07/23/23 08:59 Last Admin: 06/26/23 08:31 Dose: 81 mg Enoxaparin Sodium (Enoxaparin Inj 40 Mg/0.4 Ml Syr) 40 mg SQ QAM [facility] Stop: 07/23/23 08:59 Last Admin: 06/26/23 08:36 Dose: 40 mg Ergocalciferol (Ergocalciferol 50,000 Units 1250 Mcg Cap) 50,000 units PO Q30D [facility] Stop: 07/25/23 08:59 Last Admin: 06/25/23 08:31 Dose: 50,000 units Fluticasone Furoate (Fluticasone Furoate 100mcg 14 Puffs/Inhaler) 1 puffs INH DAILY [facility] Stop: 07/23/23 08:59 Last Admin: 06/26/23 08:32 Dose: 1 puffs Folic Acid (Folic Acid 1 Mg Tab) 1 mg PO QAM [facility] Stop: 07/23/23 08:59 Last Admin: 06/26/23 08:36 Dose: 1 mg Guaifenesin (Guaifenesin 600 Mg Tabcr) 1,200 mg PO Q12 [facility] Stop: 07/22/23 20:59 Last Admin: 06/26/23 08:31 Dose: 1,200 mg Doxycycline Hyclate 100 mg/ (Dextrose) 110 mls @ 50 mls/hr IV Q12H [facility] Stop: 06/30/23 06:59 Last Infusion: 06/26/23 08:22 Dose: Infused Methylprednisolone 40 mg/ (Syringe) 0.64 mls @ 1.5 mls/min IV DAILY [facility] Stop: 07/26/23 08:59 Lactobacillus Acidophilus (Advanced Probiotic 1250 Mg Capsule) 2 cap PO DAILY [facility] Stop: 07/24/23 16:44 Last Admin: 06/26/23 07:59 Dose: 2 cap Levothyroxine Sodium (Levothyroxine Sodium 75 Mcg Tablet) 75 mcg PO DAILYBB [facility] Stop: 07/23/23 06:29 Last Admin: 06/26/23 06:10 Dose: 75 mcg Magnesium Hydroxide (Magnesium Hydroxide Susp 30 Ml Udc) 30 ml PO Q12H PRN PRN Reason: Constipation Stop: 07/22/23 20:00 Methocarbamol (Methocarbamol 500 Mg Tablet) 500 mg PO TID PRN PRN Reason: muscle spasms Stop: 07/23/23 23:35 Last Admin: 06/26/23 07:57 Dose: 500 mg Metoprolol Succinate (Metoprolol Succ 25mg Ext Rel Tab) 25 mg PO HS [facility] Stop: 07/22/23 20:59 Last Admin: 06/25/23 20:17 Dose: 25 mg Metoprolol Succinate (Metoprolol Succ 50mg Ext Rel Tab) 50 mg PO QAM [facility] Stop: 07/23/23 08:59 Last Admin: 06/26/23 08:31 Dose: 50 mg Midodrine (Midodrine Hcl 2.5 Mg Tab) 2.5 mg PO TID@0800,1200,1700 [facility] Stop: 07/23/23 02:24 Last Admin: 06/26/23 07:57 Dose: 2.5 mg Ondansetron HCl (Ondansetron Inj 2 Mg/Ml 2 Ml Vial) 4 mg IV Q6H PRN PRN Reason: Nausea Stop: 07/22/23 20:00 Last Admin: 06/25/23 23:19 Dose: 4 mg Pantoprazole Sodium (Pantoprazole 40 Mg Tab) 40 mg PO BID [facility] Stop: 07/22/23 20:59 Last Admin: 06/26/23 07:57 Dose: 40 mg Polyethylene Glycol (Polyethylene (Miralax) 17 Gm Pack) 17 gm PO DAILY PRN PRN Reason: Constipation Stop: 07/22/23 20:00 Pregabalin (Pregabalin 75 Mg Cap) 75 mg PO TID@0800,1200,2100 [facility] Stop: 07/22/23 20:59 Last Admin: 06/26/23 07:57 Dose: 75 mg Sacubitril/Valsartan (Valsartan/Sacubitril 26/24mg Tab) 1 tab PO BID [facility] Stop: 07/22/23 20:59 Last Admin: 06/23/23 07:46 Dose: 1 tab Umeclidinium/Vilanterol (Umeclidinium/Vilanterol 62.5/25mcg 7 Puffs/Inhaler) 1 puffs INH DAILY [facility] Stop: 07/23/23 08:59 Last Admin: 06/26/23 08:32 Dose: 1 puffs
[2023-06-26] MEDS: methylPREDNISolone 40 MG in SYRINGE 0 ML IV SCH (09:47)
[2023-06-26] MEDS ORDERED: LORazepam 0.5 MG TAB PO STA (11:45)
[2023-06-26] MEDS ORDERED: LOPERAMIDE HCL 2 MG CAP PO PRN (16:22)
[2023-06-26] MEDS: LOPERAMIDE HCL 2 MG CAP PO PRN (16:34)
[2023-06-26] MEDS: METOPROLOL SUCC 25MG EXT REL TAB PO SCH (21:34)
[2023-06-27] MEDS: ALBUT/IPRATROP 3MG/0.5MG NEB 3 ML VIAL NEB SCH ×4 (00:14→19:13)
[2023-06-27] MEDS: LEVOTHYROXINE SODIUM 75 MCG TABLET PO SCH (06:29)
[2023-06-27] MEDS: DOXYCYCLINE HYCLATE 100 MG in DEXTROSE 5% 100 ML IV SCH ×2 (07:46→18:08)
[2023-06-27] MEDS: MIDODRINE HCL 2.5 MG TAB PO SCH ×3 (07:50→17:14)
[2023-06-27] MEDS: METOPROLOL SUCC 50MG EXT REL TAB PO SCH (07:50)
[2023-06-27] MEDS: LOPERAMIDE HCL 2 MG CAP PO PRN ×2 (07:50→13:41)
[2023-06-27] MEDS: PREGABALIN 75 MG CAP PO SCH ×3 (07:50→19:54)
[2023-06-27] MEDS: METHOCARBAMOL 500 MG TABLET PO PRN (07:51)
[2023-06-27] MEDS: guaiFENesin 600 MG TABCR PO SCH ×2 (07:51→19:51)
[2023-06-27] MEDS: ASPIRIN 81 MG ECTAB PO SCH (07:51)
[2023-06-27] MEDS: ADVANCED PROBIOTIC 1250 MG CAPSULE PO SCH (07:51)
[2023-06-27] MEDS: PANTOprazole 40 MG TAB PO SCH ×2 (07:51→19:51)
[2023-06-27] MEDS: FOLIC ACID 1 MG TAB PO SCH (07:51)
[2023-06-27] MEDS: ENOXAPARIN INJ 40 MG/0.4 ML SYR SQ SCH (07:52)
[2023-06-27] MEDS: UMECLIDINIUM/VILANTEROL 62.5/25MCG 7 PUFFS/INHALER INH SCH (07:52)
[2023-06-27] MEDS: AMOXICILLIN/CLAVULANATE 875 MG TAB PO SCH (07:52)
[2023-06-27] MEDS: FLUTICASONE FUROATE 100MCG 14 PUFFS/INHALER INH SCH (07:53)
[2023-06-27] MEDS: methylPREDNISolone 40 MG in SYRINGE 0 ML IV SCH (08:31)
[2023-06-27 08:55] LABS: Hematocrit (blood only) 39.2 % (37.0-47.0); Hemoglobin 13.2 g/dl (12.0-16.0); Mean Corpuscular Hemoglobin 32.5 pg (25.0-34.0); Mean Corpuscular Hgb Conc 33.7 g/dL (32.0-36.0); Mean Corpuscular Volume 96.6 fL (80.0-100.0); Mean Platelet Volume 9.6 fL (9.4-12.4); Platelet Count 263 K/uL (130-400); RDW Coefficient of Variation 14.2 % (11.5-14.5); RDW Standard Deviation 50.6 fL (36.4-46.3); Red Blood Count 4.06 M/uL (4.20-5.40); White Blood Count 10.98 K/ul (4.8-10.8)
[2023-06-27 09:10] LABS: BUN Creatinine Ratio 23.2 (10-20); Calcium 9.1 mg/dl (8.6-10.3); Est GFR (African American) 54.9 ml/min; Est GFR (Non-African American) 47.4 ml/min; Magnesium 1.7 mg/dl (1.7-2.4); Potassium 3.7 mmol/L (3.5-5.1)
[2023-06-27] MEDS: ONDANSETRON INJ 2 MG/ML 2 ML VIAL IV PRN ×2 (13:44→19:50)
[2023-06-27] MEDS ORDERED: MAGNESIUM SULFATE / D5W 1 GM/100 ML BAG IV ONE (14:50)
--- NOTE | 2023-06-27 15:21 | Hospitalist Progress Note ---
Date of Service June 27, 2023 Assessment & Plan (1) COPD exacerbation: (2) HFrEF (heart failure with reduced ejection fraction): (3) CAD (coronary artery disease): (4) Hypertension: (5) Depression: (6) Anxiety: (7) Hypothyroidism: (8) Left lower lobe pneumonia: (9) Acute metabolic encephalopathy: Plan 57 year old with SOB and AMS over past few days per family. (+) cough and not taking medications, including breathing treatment at home over past few days. Wears 2LNC 15/06 at home. WBC 9.92; CXR advanced emphysema with possible pneumonitis. Blood, urine and sputum cultures pending. Nebs QID + Q2 PRN, Doxy given in ED; continue with Rocephin pending cultures. Add'l PMH includes HFrEF, CAD s/p AMI, HTN, HLD, Hypothyroidism, GERD. LEFT LOWER LOBE PNEUMONIA COPD EXACERBATION CHRONIC RESPIRATORY FAILURE ON HOME O2, 2 L ACUTE METABOLIC ENCEPHALOPATHY SECONDARY TO ABOVE WBC 9.92 Wears 2LNC supplemental O2 at home.15/06 Chest x-ray reveals advanced emphysema with questionable pneumonitis to correlate clinically Clinically improving Afebrile On 2 L of oxygen, which is her baseline Sputum culture: normal zan Blood cultures: negat. in 48 hrs WBC down despite being on steroids Switched Zosyn IV to po augmentin and cont. Doxycycline, stop augmentin now Solu-Medrol 40 mg every 12 hours-> switched to daily , can't transition to prednisone as pt says she can't tolerate po prednisone As needed nebs-patient experiencing tremors and tachycardia with nebs Diarrhea - c. diff negative - ok to give imodium HFrEF: Last ECHO: 03/14; reduced EF 35 to 39%, at that time loculated pericardial effusion, with moderate diffuse left ventricular hypokinesis. Obtained ECHO while inpt -there is borderline mild diffuse LV hypokinesis. LV systolic function is mildly reduced. LVEF 45 to 50%. RV appears small and un derfilled suggestive of hypovolemia. There is a small to moderately sized anterior and right lateral pericardial effusion with fibrinous strands consistent with some degree of chronicity. There are no echocardiographic indications of cardiac tamponade. Compared to her prior study from October 2022, LVEF is unchanged. The size of the pericardial effusion is unchanged. Fibrinous strands now present. --Patient appears to be euvolemic-on the dry side -- BP on the lower side Entresto held -- Continue Jardiance Continue midodrine Advised to increase fluid intake CAD: Status post AMI 2010; stent x1 placed Takes baby aspirin; continue HTN: Takes metoprolol; continue HLD: Was taking Repatha; not taking anymore per outpatient records Hypothyroidism: Takes levothyroxine; continue GERD: Takes omeprazole; continue Disposition: PCP: Code Status: Full Code VTE Prophylaxis: Lovenox SQ Admission and Anticipated Discharge Date Admission Date: June 22, 2023 Subjective Pt seen in follow-up for COPD exacerbation, left lower lobe pneumonia, etc. Seen resting in bed, comfortable, not in distress Pt on 2 L of oxygen by nasal cannula States that she feels improved Breathing is improving + Reports loose stools - c.diff checked and negative Family at the bedside and updated Review of Systems Review of Systems: All systems reviewed & are unremarkable except as noted in Subjective Physical Exam Physical Exam: General- oriented x 3, not in distress, speaks in sentences with no effort or accessory muscle use Eyes- anicteric Neck- no JVD Lungs- CTAB, no wheezing Heart- normal rate, regular rhythm; no murmurs Abdomen- normal bowel sounds, nondistended, soft, nontender Extremities- no pretibial edema, no calf tenderness Neuro- alert, oriented x 3; no gross focal neurologic deficits Skin- warm & dry Results & Data Results & Data Vital Signs (Past 12 Hours) Vital Signs Temp Pulse Pulse Resp BP Pulse Ox O2 Del Method 06/27/23 12:07 78 18 98 Nasal Cannula 06/27/23 11:18 36.9 C 71 18 95/61 L 99 Nasal Cannula 06/27/23 09:00 Room Air 06/27/23 08:00 71 06/27/23 08:07 36.9 C 82 18 116/79 99 Nasal Cannula 06/27/23 07:34 81 16 98 Nasal Cannula 06/27/23 06:36 36.7 C 72 16 109/66 96 Nasal Cannula O2 Flow Rate 06/27/23 12:07 2 06/27/23 11:18 2 06/27/23 09:00 06/27/23 08:00 06/27/23 08:07 2 06/27/23 07:34 2 06/27/23 06:36 2 Laboratory Results 06/27/23 06/27/23 Range/Units 08:42 08:42 WBC 10.98 H (4.8-10.8) K/ul RBC 4.06 L (4.20-5.40) M/uL Hgb 13.2 (12.0-16.0) g/dl Hct 39.2 (37.0-47.0) % MCV 96.6 (80.0-100.0) fL MCH 32.5 (25.0-34.0) pg MCHC 33.7 (32.0-36.0) g/dL RDW Std Deviation 50.6 H (36.4-46.3) fL RDW Coeff of Akiko 14.2 (11.5-14.5) % Plt Count 263 (130-400) K/uL MPV 9.6 (9.4-12.4) fL Sodium 138 (136-145) mmol/L Potassium 3.7 (3.5-5.1) mmol/L Chloride 109 H (98-107) mmol/L Carbon Dioxide 23 (21-32) mmol/L Anion Gap 6 (3-11) BUN 29 H (6-23) mg/dl Creatinine 1.25 H (0.6-1.2) mg/dl Est Cr Clr Drug Dosing 40.0 ml/min Est GFR ( Amer) 54.9 ml/min Est GFR (Non-Af Amer) 47.4 ml/min BUN/Creatinine Ratio 23.2 H (10-20) Glucose 92 (70-99(Fasting)) mg/dl Calcium 9.1 (8.6-10.3) mg/dl Magnesium 1.7 (1.7-2.4) mg/dl Medications Administered Current Inpatient Medications Acetaminophen (Acetaminophen 325 Mg Tab) 650 mg PO Q4H PRN PRN Reason: Pain or Fever Stop: 07/22/23 20:00 Last Admin: 06/24/23 12:54 Dose: 650 mg Al Hydrox/Mg Hydrox/Simethicone (Aluminum/Magnesium Susp 30 Ml Udc) 15 ml PO Q4H PRN PRN Reason: Dyspepsia Stop: 07/22/23 20:00 Albuterol (Albut/Ipratrop 3mg/0.5mg Neb 3 Ml Vial) 3 ml NEB QIDR PRN; Protocol PRN Reason: SOB/wheezing Stop: 07/23/23 06:59 Last Admin: 06/23/23 20:22 Dose: 3 ml Albuterol (Albut/Ipratrop 3mg/0.5mg Neb 3 Ml Vial) 3 ml NEB Q6R [facility]; Protocol Stop: 07/24/23 06:59 Last Admin: 06/27/23 12:07 Dose: 3 ml Amoxicillin/Clavulanate Potassium (Amoxicillin/Clavulanate 875 Mg Tab) 1 tab PO BID [facility]; Protocol Stop: 07/02/23 20:59 Last Admin: 06/27/23 07:52 Dose: 1 tab Aspirin (Aspirin 81 Mg Ectab) 81 mg PO QAM [facility] Stop: 07/23/23 08:59 Last Admin: 06/27/23 07:51 Dose: 81 mg Enoxaparin Sodium (Enoxaparin Inj 40 Mg/0.4 Ml Syr) 40 mg SQ QAM [facility] Stop: 07/23/23 08:59 Last Admin: 06/27/23 07:52 Dose: 40 mg Ergocalciferol (Ergocalciferol 50,000 Units 1250 Mcg Cap) 50,000 units PO Q30D [facility] Stop: 07/25/23 08:59 Last Admin: 06/25/23 08:31 Dose: 50,000 units Fluticasone Furoate (Fluticasone Furoate 100mcg 14 Puffs/Inhaler) 1 puffs INH DAILY [facility] Stop: 07/23/23 08:59 Last Admin: 06/27/23 07:53 Dose: 1 puffs Folic Acid (Folic Acid 1 Mg Tab) 1 mg PO QAM [facility] Stop: 07/23/23 08:59 Last Admin: 06/27/23 07:51 Dose: 1 mg Guaifenesin (Guaifenesin 600 Mg Tabcr) 1,200 mg PO Q12 [facility] Stop: 07/22/23 20:59 Last Admin: 06/27/23 07:51 Dose: 1,200 mg Doxycycline Hyclate 100 mg/ (Dextrose) 110 mls @ 50 mls/hr IV Q12H [facility] Stop: 06/30/23 06:59 Last Infusion: 06/27/23 09:58 Dose: Infused Methylprednisolone 40 mg/ (Syringe) 0.64 mls @ 1.5 mls/min IV DAILY [facility] Stop: 07/26/23 08:59 Last Admin: 06/27/23 08:31 Dose: 1.5 mls/min Magnesium Sulfate/Dextrose (Magnesium Sulfate / D5w) 1 gm in 100 mls @ 50 mls/hr IV ONE ONE Stop: 06/27/23 16:49 Last Admin: 06/27/23 15:01 Dose: 50 mls/hr Lactobacillus Acidophilus (Advanced Probiotic 1250 Mg Capsule) 2 cap PO DAILY [facility] Stop: 07/24/23 16:44 Last Admin: 06/27/23 07:51 Dose: 2 cap Levothyroxine Sodium (Levothyroxine Sodium 75 Mcg Tablet) 75 mcg PO DAILYBB [facility] Stop: 07/23/23 06:29 Last Admin: 06/27/23 06:29 Dose: 75 mcg Loperamide HCl (Loperamide Hcl 2 Mg Cap) 2 mg PO BID PRN PRN Reason: Diarrhea Stop: 07/26/23 16:26 Last Admin: 06/27/23 13:41 Dose: 2 mg Magnesium Hydroxide (Magnesium Hydroxide Susp 30 Ml Udc) 30 ml PO Q12H PRN PRN Reason: Constipation Stop: 07/22/23 20:00 Methocarbamol (Methocarbamol 500 Mg Tablet) 500 mg PO TID PRN PRN Reason: muscle spasms Stop: 07/23/23 23:35 Last Admin: 06/27/23 07:51 Dose: 500 mg Metoprolol Succinate (Metoprolol Succ 25mg Ext Rel Tab) 25 mg PO HS [facility] Stop: 07/22/23 20:59 Last Admin: 06/26/23 21:34 Dose: 25 mg Metoprolol Succinate (Metoprolol Succ 50mg Ext Rel Tab) 50 mg PO QAM [facility] Stop: 07/23/23 08:59 Last Admin: 06/27/23 07:50 Dose: 50 mg Midodrine (Midodrine Hcl 2.5 Mg Tab) 2.5 mg PO TID@0800,1200,1700 [facility] Stop: 07/23/23 02:24 Last Admin: 06/27/23 11:48 Dose: 2.5 mg Ondansetron HCl (Ondansetron Inj 2 Mg/Ml 2 Ml Vial) 4 mg IV Q6H PRN PRN Reason: Nausea Stop: 07/22/23 20:00 Last Admin: 06/27/23 13:44 Dose: 4 mg Pantoprazole Sodium (Pantoprazole 40 Mg Tab) 40 mg PO BID [facility] Stop: 07/22/23 20:59 Last Admin: 06/27/23 07:51 Dose: 40 mg Polyethylene Glycol (Polyethylene (Miralax) 17 Gm Pack) 17 gm PO DAILY PRN PRN Reason: Constipation Stop: 07/22/23 20:00 Pregabalin (Pregabalin 75 Mg Cap) 75 mg PO TID@0800,1200,2100 [facility] Stop: 07/22/23 20:59 Last Admin: 06/27/23 11:48 Dose: 75 mg Sacubitril/Valsartan (Valsartan/Sacubitril 26/24mg Tab) 1 tab PO BID [facility] Stop: 07/22/23 20:59 Last Admin: 06/23/23 07:46 Dose: 1 tab Umeclidinium/Vilanterol (Umeclidinium/Vilanterol 62.5/25mcg 7 Puffs/Inhaler) 1 puffs INH DAILY [facility] Stop: 07/23/23 08:59 Last Admin: 06/27/23 07:52 Dose: 1 puffs
[2023-06-27] MEDS ORDERED: LORazepam 0.5 MG TAB PO STA (17:37)
[2023-06-27] MEDS ORDERED: LOPERAMIDE HCL 2 MG CAP PO STA (17:37)
[2023-06-27] MEDS: METOPROLOL SUCC 25MG EXT REL TAB PO SCH (19:52)
[2023-06-28] MEDS: ALBUT/IPRATROP 3MG/0.5MG NEB 3 ML VIAL NEB SCH ×2 (00:10→07:36)
[2023-06-28] MEDS: LEVOTHYROXINE SODIUM 75 MCG TABLET PO SCH (06:16)
[2023-06-28] MEDS: DOXYCYCLINE HYCLATE 100 MG in DEXTROSE 5% 100 ML IV SCH (06:16)
[2023-06-28] MEDS: PREGABALIN 75 MG CAP PO SCH ×2 (07:44→11:51)
[2023-06-28] MEDS: ADVANCED PROBIOTIC 1250 MG CAPSULE PO SCH (07:44)
[2023-06-28] MEDS: guaiFENesin 600 MG TABCR PO SCH (07:44)
[2023-06-28] MEDS: PANTOprazole 40 MG TAB PO SCH (07:44)
[2023-06-28] MEDS: LOPERAMIDE HCL 2 MG CAP PO PRN (07:44)
[2023-06-28] MEDS: METHOCARBAMOL 500 MG TABLET PO PRN (07:44)
[2023-06-28] MEDS: FOLIC ACID 1 MG TAB PO SCH (07:44)
[2023-06-28] MEDS: ASPIRIN 81 MG ECTAB PO SCH (07:44)
[2023-06-28] MEDS: FLUTICASONE FUROATE 100MCG 14 PUFFS/INHALER INH SCH (07:45)
[2023-06-28] MEDS: ENOXAPARIN INJ 40 MG/0.4 ML SYR SQ SCH (07:45)
[2023-06-28] MEDS: UMECLIDINIUM/VILANTEROL 62.5/25MCG 7 PUFFS/INHALER INH SCH (07:45)
[2023-06-28] MEDS: METOPROLOL SUCC 50MG EXT REL TAB PO SCH (07:47)
[2023-06-28 07:53] LABS: Hematocrit (blood only) 36.5 % (37.0-47.0); Hemoglobin 12.5 g/dl (12.0-16.0); Mean Corpuscular Hemoglobin 32.5 pg (25.0-34.0); Mean Corpuscular Hgb Conc 34.2 g/dL (32.0-36.0); Mean Corpuscular Volume 94.8 fL (80.0-100.0); Mean Platelet Volume 9.8 fL (9.4-12.4); Platelet Count 261 K/uL (130-400); RDW Coefficient of Variation 14.3 % (11.5-14.5); RDW Standard Deviation 49.6 fL (36.4-46.3); Red Blood Count 3.85 M/uL (4.20-5.40); White Blood Count 11.19 K/ul (4.8-10.8)
[2023-06-28 08:06] LABS: BUN Creatinine Ratio 30.5 (10-20); Calcium 8.9 mg/dl (8.6-10.3); Creatinine Clr Calc Pharmacy 42.3 ml/min; Est GFR (African American) 58.9 ml/min; Est GFR (Non-African American) 50.8 ml/min; Potassium 3.7 mmol/L (3.5-5.1)
[2023-06-28] MEDS: methylPREDNISolone 40 MG in SYRINGE 0 ML IV SCH (08:24)
[2023-06-28] MEDS: MIDODRINE HCL 2.5 MG TAB PO SCH ×2 (08:24→11:51)
[2023-06-28] MEDS: ACETAMINOPHEN 325 MG TAB PO PRN (08:43)
[2023-06-28] MEDS ORDERED: POTASSIUM CHLORIDE CRTAB 20 MEQ TABCR PO STA (10:54)
--- NOTE | 2023-06-28 11:24 | Discharge Summary ---
Date of Service June 28, 2023 Admission HPI Per Admitting Provider Ms. Santiago is a 57 year old female presents with respiratory distress x24 hours coupled wit some AMS that started on Satuday. She wears 2LNC supplemental O2 at baseline. Urine and blood cultures obtained in the ED, COVID-negative. Chest x- ray raised suggestive of advanced emphysema questionable pneumonitis to correlate clinically. Borderline leukocytosis WBC 9.92, otherwise electrolytes unremarkable. VBG without hypercapnia or acidosis. Last ECHO: 03/14; reduced EF 35 to 39%, at that time loculated pericardial effusion, with moderate diffuse left ventricular hypokinesis. Additional past medical history includes HFrEF, COPD, CAD, history of seizure, hypothyroidism. Patient denies NUGENT, dizziness, visual or auditory changes, abdominal pain, N/V/D, recent falls or trauma. Overall poor appetite, only drinks pepsi during the day and is most often in her bed; without much ambulation. Suspect that patient has COPD exacerbation as family reports not taking medications or breathing treatments over past few days. Will treat for acute on chronic COPD exacerbation with IV abx, IV steroids, supportive treatment with Mucinex; await culture results. Obtain a recent echo due to HFrEF and tachycardia on monitor that I suspect is from recent neb tx instead of sepsis. Does not appear toxic, but generally chronically ill individual with suspected pneumonitis. Patient will be admitted for further evaluation and management. Please see A/P for further details. Admission Exam Per Admitting Provider Neuro: AAOx4, PERRLA, no aphagia, memory changes, CNII-XII grossly intact HEENT: head normocephalic, moist mucus membranes CV: S1/S2, (-) M/G/R, (-) edema, cap refill < 3 seconds Resp: Lungs CTA in all jerry. On RA GI: Abdomen S/NT/ND, Ax4 bowel sounds, (-) CVA tenderness Musculoskeletal: 5/5 B/L UE strength, 5/5 B/L LE strength. No gait disturbance Skin: (-) rashes , (-) erythema. Psych: euthymic mood Principal Diagnosis COPD exacerbation LLL pna Discharge Exam General- oriented x 3, not in distress, speaks in sentences with no effort or accessory muscle use Eyes- anicteric Neck- no JVD Lungs- CTAB, no wheezing Heart- normal rate, regular rhythm; no murmurs Abdomen- normal bowel sounds, nondistended, soft, nontender Extremities- no pretibial edema, no calf tenderness Neuro- alert, oriented x 3; no gross focal neurologic deficits Skin- warm & dry Discharge Data Allergies Allergy/AdvReac Type Severity Reaction Status Date / Time tramadol Allergy Severe Seizure Verified 04/30/23 08:43 adhesive Allergy Mild BANDAIDS : Verified 04/30/23 08:43 SKIN ABRASION ketorolac [From Toradol] Allergy Mild HX KIDNEY Verified 04/30/23 08:43 FAILURE adhesive tape Allergy Unknown SKIN TEARS Verified 04/30/23 08:43 ibuprofen Allergy Unknown HX KIDNEY Verified 04/30/23 08:43 FAILURE NSAIDS (Non-Steroidal Allergy Unknown HX KIDNEY Verified 04/30/23 08:43 Anti-Inflamma FAILURE Sulfa (Sulfonamide Allergy Unknown HIVES Verified 04/30/23 08:43 Antibiotics) meperidine AdvReac Unknown NOT A Verified 04/30/23 08:43 VERIFIED RXN: MOOD SWINGS prednisone AdvReac Unknown Patient Verified 04/30/23 08:43 Reports Contraindication in Kidney Failure/SEE NOTES rosuvastatin [From Crestor] AdvReac Unknown Weakness, Verified 04/30/23 08:43 RHABDOMYLOSIS, ACUTE RENAL FAILURE Consultations 06/22/23 20:28 ED Decision to Admit Stat Hospital Course (1) COPD exacerbation: (2) HFrEF (heart failure with reduced ejection fraction): (3) CAD (coronary artery disease): (4) Hypertension: (5) Depression: (6) Anxiety: (7) Hypothyroidism: (8) Left lower lobe pneumonia: (9) Acute metabolic encephalopathy: Plan 57 year old with SOB and AMS over past few days per family. (+) cough and not taking medications, including breathing treatment at home over past few days. Wears 2LNC / at home. WBC 9.92; CXR advanced emphysema with possible pneumonitis. Blood, urine and sputum cultures pending. Nebs QID + Q2 PRN, Doxy given in ED; continue with Rocephin pending cultures. Add'l PMH includes HFrEF, CAD s/p AMI, HTN, HLD, Hypothyroidism, GERD. LEFT LOWER LOBE PNEUMONIA COPD EXACERBATION CHRONIC RESPIRATORY FAILURE ON HOME O2, 2 L ACUTE METABOLIC ENCEPHALOPATHY SECONDARY TO ABOVE WBC 9.92 Wears 2LNC supplemental O2 at home.24/ Chest x-ray reveals advanced emphysema with questionable pneumonitis to correlate clinically Clinically improving Afebrile On 2 L of oxygen, which is her baseline Sputum culture: normal zan Blood cultures: negat. in 48 hrs WBC down despite being on steroids Switched Zosyn IV to po augmentin and cont. Doxycycline, finished abx now Solu-Medrol 40 mg every 12 hours-> switched to daily , can't transition to prednisone as pt says she can't tolerate po prednisone As needed nebs-patient experiencing tremors and tachycardia with nebs Pt's breathing is good and she continues to use home O2. No significant cough anymore. Diarrhea - c. diff negative - ok to give imodium - avoid dairy products and sorbitol/diet products while having loose stools HFrEF: Last ECHO: 03/14; reduced EF 35 to 39%, at that time loculated pericardial effusion, with moderate diffuse left ventricular hypokinesis. Obtained ECHO while inpt -there is borderline mild diffuse LV hypokinesis. LV systolic function is mildly reduced. LVEF 45 to 50%. RV appears small and underfilled suggestive of hypovolemia. There is a small to moderately sized anterior and right lateral pericardial effusion with fibrinous strands consistent with some degree of chronicity. There are no echocardiographic indications of cardiac tamponade. Compared to her prior study from October 2022, LVEF is unchanged. The size of the pericardial effusion is unchanged. Fibrinous strands now present. --Patient appears to be euvolemic-on the dry side -- BP on the lower side Entresto held - will need to re-eval as outpt if/when to restart -- Continue Jardiance Continue midodrine Advised to increase fluid intake CAD: Status post AMI 2010; stent x1 placed Takes baby aspirin; continue HTN: Takes metoprolol; continue HLD: Was taking Repatha; not taking anymore per outpatient records Hypothyroidism: Takes levothyroxine; continue GERD: Takes omeprazole; continue Total Time Total Time Spent Total Time Spent (In Minutes): 40 Discharge Plan Discharge Items Patient Disposition: Home - Self-Care Reason For Visit: COPD EXACERBATION Discharge Diagnosis: COPD exacerbation LLL pna Activity: Per Instructions section Non-emergency contact: Primary Care Provider Call non-emergency contact if: you have any medication questions and your symptoms worsen Follow-up/Referrals: Ace Rodriguez DO [Primary Care Provider] - (Date & Time 07/02/2023 1:00 PM Provider Ace Rodriguez DO Department [facility] ) Diet: Heart Healthy Diet Texture: Easy to Chew Addtl Attending Provider Instructions: Follow up with your primary care doctor within 1 week. The appointment was scheduled for you for 07/02/2023. Recommend to take probiotics and if you persistently have troubles with diarrhea, then make sure to discuss this with your primary care physician as your stool may need to be tested. Do not take Entresto for now as your blood pressure has been on lower side. Monitor your blood pressure at home and discuss with your physicians if/when you should restart this medication. Pending Studies at Discharge: No Stand-Alone Forms: My [facility] [employer], Smoking Cessation Medications and DC Order Prescriptions: New Advanced Probiotic 625 mg (10 billion cell) Capsule 2 cap PO DAILY 5 Days Qty: 10 0RF Continued ipratropium-albuterol 0.5 mg-3 mg(2.5 mg base)/3 mL solution for nebulization 3 ml INHALATION QID aspirin 81 mg Tablet,Delayed Release (Dr/Ec) 81 mg PO QAM levothyroxine [Synthroid] 75 mcg tablet 75 mcg PO QAM lorazepam 0.5 mg tablet 0.5 mg PO DAILY PRN (Reason: Anxiety) cyanocobalamin (vitamin B-12) 1,000 mcg/mL Solution 1,000 mcg IM MONTHLY Rx Instructions: inject every 30 days omeprazole 20 mg capsule,delayed release(DR/EC) 20 mg PO BID folic acid 1 mg Tablet 1 mg PO QAM metoprolol succinate 25 mg tablet extended release 24 hr 50 mg PO QAM albuterol sulfate 90 mcg/actuation HFA aerosol inhaler 2 puff INHALATION Q4H PRN (Reason: cough,SOB or wheezing) pregabalin 75 mg capsule 75 mg PO TID Rx Instructions: morning,noon and bedtime Repatha Pushtronex 420 mg/3.5 mL wearable injector 420 mg SUBCUT MONTHLY Rx Instructions: remove from refrigerator 45 min prior to injection dicyclomine 10 mg Capsule 10 mg PO TID PRN (Reason: Abdominal Pain) Qty: 30 0RF midodrine 2.5 mg Tablet 2.5 mg PO TID@0800,1200,1700 Qty: 90 0RF methocarbamol 500 mg tablet 500 mg PO TID PRN (Reason: muscle spasms) spironolactone 25 mg tablet 12.5 mg PO QAM ondansetron HCl 4 mg tablet 4 mg PO Q8 PRN (Reason: Nausea) acetaminophen 325 mg Tablet 325 mg PO Q6 PRN (Reason: Fever Or Pain) metoprolol succinate 25 mg Tablet Extended Release 24 Hr 25 mg PO HS ergocalciferol (vitamin D2) [Vitamin D2] 1,250 mcg (50,000 unit) Capsule 1,250 mcg PO UD Patient Comments: ONCE A MONTH food supplemt, lactose-reduced Liquid 1 ea PO UD Patient Comments: NOT EVERY DAY Trelegy Ellipta 100-62.5-25 mcg Blister With Device 1 inh INHALATION HS lidocaine HCl 4 % (40 mg/mL) Kit 40 mg UD Patient Comments: LIDOCAINE INJECTIONS LEFT ARM EVERY 3 MONTHS. albuterol sulfate 2.5 mg /3 mL (0.083 %) solution for nebulization 2.5 mg continuous nebulization QID PRN (Reason: Wheezing) Discontinued Entresto 24-26 mg Tablet 1 tab PO BID Discharge Orders: Discharge Order (Routine); Ordered 06/28/23 Ordered By: Herve Escalante/Other Patient Handouts: Asthma and COPD, COPD and Heart Disease, Treating Pneumonia Admission Data Admit Date/Time: 06/22/23 20:01 Attending Provider: Herve Anglin Admit Provider: Evelia Beltran Primary Care Provider: Ace Rodriguez Other Providers: Evelia Beltran ; Cecil Cash ; Alex Matthew Other Interventions: Discharge Summary Assessment (RN) Last Done: 06/28/23 07:03
--- NOTE | 2023-06-30 16:50 | Coding Query ---
SEPSIS To promote full compliance with coding requirements relating to patient care, physician participation is requested in all cases of computer language coder uncertainty. Please assist us with the question(s) below: In responding to this query, please exercise your independent professional judgement. The fact that a question is asked does not imply that any particular answer is desired or expected. We appreciate your clarification on this issue. The medical record reflects the following clinical findings: Pt admitted with Pneumonia. 06/23 progress note documented Sepsis . Please check below the applicable diagnosis if applicable. Thank you. Jonnie Arteaga [facility] ____ ( )Bacteremia (Nonspecific laboratory finding of bacteria in the blood) Specify Organism ( ) Present on Admission ( ) Not present on admission ( ) Unable to clinically determine ( ) Septicemia (Systemic disease associated with the presence of pathogenic microorganisms in the blood): Specify Organism ( ) Present on Admission ( ) Not present on admission ( ) Unable to clinically determine (x ) Sepsis Specify Organism Specify Associated Condition/Diagnosis ( ) Present on Admission ( ) Not present on admission ( ) Unable to clinically determine ( ) Severe Sepsis (Sepsis associated with acute organ dysfunction) Specify Organism Specify Associated Condition/Diagnosis ( ) Present on Admission ( ) Not present on admission ( ) Unable to clinically determine ( ) Septic Shock (Severe sepsis with acute circulatory failure, unexplained by other causes) ( ) Present on Admission ( ) Not present on admission ( ) Unable to clinically determine ( ) Other, patient has: MTDD
== END 2023-06-28 13:39 | disposition home or self-care (01) | DRG 871 ==
LOC: ED 14:24 → 2N 20:01 → SUATTDRO 20:01 → 2N 20:57

== ENCOUNTER 2024-08-31 07:24 | Inpatient (IN) ==
[2024-08-31] MEDS: dexAMETHasone**PF** 10 MG/ML VIAL IV ONE (07:44)
[2024-08-31] MEDS: MAGNESIUM SULFATE / D5W 1 GM/100 ML BAG IV STA (07:44)
[2024-08-31] MEDS: SODIUM CHLORIDE 0.9% 500 ML IV ONE (07:45)
[2024-08-31] MEDS: ALBUT/IPRATROP 3MG/0.5MG NEB 3 ML VIAL INH STA (07:46)
--- NOTE | 2024-08-31 07:46 | Emergency Department Note ---
ED Provider Note History of Present Illness Chief Complaint: Shortness of Breath/Dyspnea Stated Complaint: SOB Time Seen by Provider: 08/31/24 07:28 59-year-old female, history of COPD and asthma, along with chronic kidney disease, who presents the emergency department via EMS for evaluation of progressively worsening shortness of breath over the past few days. The patient is on O2 at 2 L/min at home. Patient denies any fever or chills, chest pain, back pain, headache, nausea or abdominal discomfort. Patient denies any known sick contacts. Home Medications Medication Instructions Recorded Confirmed Type albuterol sulfate 90 mcg/actuation 2 puff inhalation Q4H PRN 03/10/22 08/31/24 History aerosol inhaler cough,SOB or wheezing aspirin 81 mg tablet,delayed 81 mg PO QAM 03/10/22 08/31/24 History release evolocumab 420 mg/3.5 mL 420 mg subcut Q30D 03/10/22 08/31/24 History subcutaneous wearable injector (Repatha Pushtronex) folic acid 1 mg tablet 1 mg PO QAM 03/10/22 08/31/24 History levothyroxine 75 mcg tablet 75 mcg PO QAM 03/10/22 08/31/24 History (Synthroid) lorazepam 0.5 mg tablet 0.5 mg PO DAILY PRN Anxiety 03/10/22 08/31/24 History metoprolol succinate 25 mg 25 - 50 mg PO UD 03/10/22 08/31/24 History tablet,extended release 24 hr omeprazole 20 mg capsule,delayed 20 mg PO BID 03/10/22 08/31/24 History release pregabalin 75 mg capsule 75 mg PO TID 03/10/22 08/31/24 History midodrine 2.5 mg tablet 2.5 mg PO TID@0800,1200,1700 #90 05/06/22 08/31/24 Rx tabs acetaminophen 325 mg tablet 325 mg PO Q6H PRN Fever Or Pain 10/19/22 08/31/24 History methocarbamol 500 mg tablet 500 mg PO TID PRN muscle spasms 10/19/22 08/31/24 History ondansetron HCl 4 mg tablet 4 mg PO Q8 PRN Nausea 10/19/22 08/31/24 History spironolactone 25 mg tablet 12.5 mg PO UD 10/19/22 08/31/24 History (Aldactone) albuterol sulfate 2.5 mg/3 mL 2.5 mg continuous nebulization QID 06/22/23 08/31/24 History (0.083 %) solution for nebulization PRN Wheezing empagliflozin 25 mg tablet 25 mg PO QAM heart failure 01/21/24 08/31/24 History (Jardiance) paroxetine HCl 40 mg tablet (Paxil) 40 mg PO HS 01/21/24 08/31/24 History sacubitril 24 mg-valsartan 26 mg 1 tab PO BID 01/21/24 08/31/24 History tablet (Entresto) oxycodone 5 mg tablet 5 mg PO Q4H PRN pain #15 tabs 08/27/24 08/31/24 Rx Allergies Allergy/AdvReac Type Severity Reaction Status Date / Time tramadol Allergy Severe Seizure Verified 02/23/24 07:31 adhesive Allergy Mild BANDAIDS : Verified 02/23/24 07:31 SKIN ABRASION ketorolac [From Toradol] Allergy Mild HX KIDNEY Verified 02/23/24 07:31 FAILURE adhesive tape Allergy Unknown SKIN TEARS Verified 02/23/24 07:31 ibuprofen Allergy Unknown HX KIDNEY Verified 02/23/24 07:31 FAILURE NSAIDS (Non-Steroidal Allergy Unknown HX KIDNEY Verified 02/23/24 07:31 Anti-Inflamma FAILURE Sulfa (Sulfonamide Allergy Unknown HIVES Verified 02/23/24 07:31 Antibiotics) meperidine AdvReac Unknown NOT A Verified 02/23/24 07:31 VERIFIED RXN: MOOD SWINGS prednisone AdvReac Unknown Patient Verified 02/23/24 07:31 Reports Contraindication in Kidney Failure/SEE NOTES rosuvastatin [From Crestor] AdvReac Unknown Weakness, Verified 02/23/24 07:31 RHABDOMYLOSIS, ACUTE RENAL FAILURE Past Med/Surg History Problem List (Updated 08/31/24 @ 16:05 by Arthur Devlin) Right lumbar radiculitis (Acute) Asthma exacerbation in COPD (Acute) Acute metabolic encephalopathy Left lower lobe pneumonia Encounter for pre-operative examination Acute on chronic heart failure with reduced ejection fraction and diastolic dysfunction CKD (chronic kidney disease), stage III (Acute) Acute on chronic respiratory failure with hypoxia DVT prophylaxis Pulmonary nodule Pericardial effusion Hypotension Bacteremia Prolonged QT interval Hypertension Diarrhea (Acute) Lab test negative for COVID-19 virus (Acute) Nausea & vomiting (Acute) Colitis (Acute) Acute dehydration (Acute) Electrolyte abnormality Hypomagnesemia (Acute) Nausea and vomiting (Acute) Hypokalemia (Acute) Generalized abdominal pain (Acute) Pericardial effusion Left ventricular systolic dysfunction UNRULY (acute kidney injury) Chronic pericarditis with effusion UTI (urinary tract infection) Acute respiratory failure with hypercapnia Acute exacerbation of chronic obstructive pulmonary disease (Acute) Acute respiratory distress (Acute) Influenza A (Acute) Hypotension Volume overload Acute respiratory failure with hypoxia Anxiety Depression Electrolyte abnormality Transaminitis DVT prophylaxis COPD (chronic obstructive pulmonary disease) (Acute) HLD (hyperlipidemia) Rhabdomyolysis Acute renal failure Pulmonary nodule Nausea (Acute) Hypokalemia (Acute) COPD exacerbation (Acute) Wrist pain, right (Acute) Seizure (Acute) Influenza A (Acute) Hypoxia (Acute) Hypokalemia (Acute) Hypokalemia (Acute) Hypokalemia (Acute) COPD exacerbation (Acute) COPD exacerbation (Acute) Bronchitis (Acute) Asthma exacerbation in COPD (Acute) Acute bronchitis (Acute) Acute bronchitis (Acute) Cellulitis (Acute) CAD (coronary artery disease) Hypothyroidism HFrEF (heart failure with reduced ejection fraction) hx Medical History Emphysema/COPD daily nebulizer, and prn neb and inh; f/u pulmonology at [facility] and [place] 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 History of colitis Decreased mobility lt arm>CRPS PTSD (post-traumatic stress disorder) Unique anesthetic considerations on preoperative anesthesia assessment high level anxiety when sedated, hx intubation w Flu A....PTSD, "gets scared when put to sleep" History of colon polyps Low blood pressure currently on midodrine; f/u [facility] cardio at and [place] History of influenza INFLUENZA A, February 2022 - [facility] hospitalization, "intubated while in the hospital" Pain syndrome, chronic chronic regional pain syndrome : left arm/received lidocaine injections in [place]/every three months/due may 2023. left limb restriction. History of renal failure "from her crestor medication" Oxygen dependent 2 L o2 continuous. Emphysema lung Statin intolerance Chronic pain see pain clinic for lt arm and neck, @[facility] Anxiety Shortness of breath chronic Neurofibromatosis Hypokalemia HX / CAN NOT TOLERATE PO POTASSIUM PILLS DUE TO GASTROPARESIS Hx of bronchitis Myocardial infarction 2010 - CHEST PAIN -[facility] ER AND HAD HEART CATH WITH ONE STENT (BARE METAL) FOLLOW WITH [facility] CARDIO Seizure 2014 ONLY HAD ONE -- ADMITTED TO [facility] --- METABOLIC RELATED ---- NO MEDICATION Pneumothorax AGE 24 - SURGERY TO REPAIR THE LEFT SIDE AND CHEMICAL TREATMENT ON THE RIGHT SIDE AT [place] Gastroparesis Cavernous hemangioma of brain stable Surgical History Hx of right cataract extraction History of heart artery stent 2010, [place], [facility], x1 stent; f/u [facility] History of endoscopy Hx of colonoscopy Hx of vaginal surgery 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 Hx of section X2 Hx of cardiac cath 2010, [place], [facility], x1 stent; f/u s cardio at History of hernia repair UMBILICAL Family History Father Lung disease Severe emphysema, pneumothorax Brother Family history of diabetes mellitus Brother Family history of diabetes mellitus Family/Other Family history of cancer Aunt Family history of colonic polyps Grandfather Family history of lymphoma Social History Smoking Status: Current some day smoker Tobacco Type: Cigarettes Age Started Using Tobacco: 11; Age Quit Using Tobacco: 53; packs per day: 1; Cigarettes Per Day: has 1 occasionally; Second Hand Exposure: Yes; Do You Dip or Chew Tobacco: No; Hx Alcohol Use: No Hx Substance Use: No Preferred Language: [place] Korean Communication Ability: Effective Potato Chip Sorter Required: No Beliefs That Will Affect Care: None marital status: Current Living Situation: Spouse How many Children do You have: 3 Other Information That Helps Us Care for You: No Feels Safe at Home: Yes Safety Concerns: Feels Safe At This Time Assistive Devices: Denture - Upper, Denture - Lower and Oxygen - Continuous Physical Exam Vital Signs Vital Signs - 24 hr 08/31/24 07:29 08/31/24 07:48 08/31/24 07:58 Pulse Rate 128 H 122 H Pulse Rate [Right Apical] 81 Pulse Rhythm Regular Regular Pulse Rhythm [Right Apical] Pulse Strength Normal Pulse Strength [Right Apical] Respiratory Rate 20 20 20 Respiratory Effort / Characteristics Non-Labored Non-Labored Spontaneous Respiratory Depth Normal Respiratory Pattern Regular Blood Pressure 138/96 Blood Pressure [Right Arm] Blood Pressure Mean 110 Blood Pressure Mean [Right Arm] Blood Pressure Position [Right Arm] Pulse Oximetry 98 94 99 Oxygen Delivery Method Nasal Cannula Nasal Cannula Nasal Cannula Oxygen Flow Rate 2 2 2 Sepsis Recent Fever Within 48 Hours No Sepsis New/Unexplained Change in Mental Status No Sepsis Action Taken by Nursing No Action Required 08/31/24 07:58 08/31/24 07:58 08/31/24 07:58 Pulse Rate Pulse Rate [Right Apical] 121 H Pulse Rhythm Pulse Rhythm [Right Apical] Regular Pulse Strength Pulse Strength [Right Apical] Normal Respiratory Rate 20 Respiratory Effort / Characteristics Non-Labored Non-Labored Respiratory Depth Normal Normal Respiratory Pattern Regular Regular Blood Pressure Blood Pressure [Right Arm] 138/96 Blood Pressure Mean Blood Pressure Mean [Right Arm] 110 Blood Pressure Position [Right Arm] Sitting Pulse Oximetry 99 99 Oxygen Delivery Method Nasal Cannula Nasal Cannula Nasal Cannula Oxygen Flow Rate 2 2 2 Sepsis Recent Fever Within 48 Hours Sepsis New/Unexplained Change in Mental Status Sepsis Action Taken by Nursing 08/31/24 08:29 Pulse Rate 125 H Pulse Rate [Right Apical] Pulse Rhythm Pulse Rhythm [Right Apical] Pulse Strength Pulse Strength [Right Apical] Respiratory Rate Respiratory Effort / Characteristics Respiratory Depth Respiratory Pattern Blood Pressure Blood Pressure [Right Arm] Blood Pressure Mean Blood Pressure Mean [Right Arm] Blood Pressure Position [Right Arm] Pulse Oximetry Oxygen Delivery Method Oxygen Flow Rate Sepsis Recent Fever Within 48 Hours Sepsis New/Unexplained Change in Mental Status Sepsis Action Taken by Nursing CONSTITUTIONAL: Healthy and well nourished. Alert and oriented X 3. Patient appears in moderate respiratory distress with persistent coughing. HEENT: Normocephalic, atraumatic. Pupils equal, round and reactive. No scleral icterus or conjunctival injection. NECK: Full active range of motion without discomfort. LYMPHATICS: No cervical chain adenopathy. RESPIRATORY: Lung sounds are distant but clear to auscultation bilaterally with no wheezing, crackles, rhonchi or stridor. CARDIOVASCULAR: Regular rate and rhythm with no murmurs, rubs or gallops. GASTROINTESTINAL: Bowel sounds present in all quadrants. Soft and nontender to palpation. MUSCULOSKELETAL: Full range of motion of all joints without discomfort. INTEGUMENTARY: No rash or other significant dermatologic conditions noted. HEMATOLOGIC: No ecchymosis or petechiae. PSYCHIATRIC: Positive affect. NEUROLOGIC: No focal neurologic deficits noted. Course Course Patient history and physical exam were performed. Nurses notes were reviewed. Also reviewed prior medical records, showing that the patient was admitted with similar symptoms in June 2023. Today's vital signs were reviewed, showing heart rate in the 130s. O2 saturation is 98% on nasal cannula at 2 L/min. Patient is not hypotensive or tachypneic. Patient otherwise does not appear in any acute respiratory distress except when she is coughing. IV access was established, and labs are drawn. The patient was hydrated with normal saline 500 cc bolus, and administered IV Decadron and mag sulfate. Portable chest x-ray shows emphysematous changes without evidence for any pneumonia, pneumothorax or cardiomegaly. ECG was performed, showing a sinus tachycardia at [address] elevations or ischemic changes. The patient was placed on court recording monitor while in the emergency department. Review of additional labs shows a normal white count without significant neutrophilic shift or bandemia. Coagulation studies and CMP were grossly normal. Troponin was mildly elevated at 16.6, as well as BNP at 111. Urinalysis shows 2+ ketonuria and trace hematuria without other evidence for infection. A [employer] upper respiratory PCR panel was ordered and was negative. The patient was administered an hour-long DuoNeb treatment without any significant relief of symptoms. At this point, I did discuss the case with our Footwear Machinery Instructor, who [facility] The patient was evaluated, and felt that admission was warranted. Please see their dictation for further treatment and final disposition, as well as additional lab work and imaging studies. Administered Medications Albuterol (Albut/Ipratrop 3mg/0.5mg Neb 3 Ml Vial) 3 ml NEB QIDR [facility]; Protocol Stop: 09/30/24 14:59 Last Admin: 08/31/24 15:49 Dose: Not Given Documented By: JUAQUIN Doxycycline Hyclate (Doxycycline Hyclate 100 Mg Cap) 100 mg PO BID [facility] Stop: 09/07/24 12:47 Last Admin: 08/31/24 14:03 Dose: 100 mg Documented By: EMILY Guaifenesin/Dextromethorphan (Guaifenesin/Dextrom Syrup 200mg/20mg 10ml Udc) 10 ml PO Q6H PRN PRN Reason: Cough Stop: 09/30/24 12:47 Last Admin: 08/31/24 14:02 Dose: 10 ml Documented By: EMILY Methylprednisolone 40 mg/ (Syringe) 0.64 mls @ 1.5 mls/min IV Q12H JUDITH Stop: 09/30/24 13:29 Last Admin: 08/31/24 14:03 Dose: 1.5 mls/min Documented By: EMILY Levalbuterol HCl (Levalbuterol Hcl 0.63 Mg/3 Ml Neb) 0.63 mg NEB Q6R PRN; Protocol PRN Reason: Shortness Of Breath Or Wheezing Stop: 09/30/24 13:32 Last Admin: 08/31/24 15:53 Dose: 0.63 mg Documented By: JUAQUIN Lorazepam (Lorazepam 0.5 Mg Tab) 0.5 mg PO DAILY PRN PRN Reason: Anxiety Stop: 09/30/24 12:47 Last Admin: 08/31/24 13:19 Dose: 0.5 mg Documented By: EMILY Midodrine (Midodrine Hcl 2.5 Mg Tab) 2.5 mg PO TID@0800,1200,1700 [facility] Stop: 09/30/24 12:47 Last Admin: 08/31/24 14:03 Dose: 2.5 mg Documented By: EMILY Pregabalin (Pregabalin 75 Mg Cap) 75 mg PO TID [facility] Stop: 09/30/24 13:59 Last Admin: 08/31/24 14:09 Dose: 75 mg Documented By: EMILY Discontinued Medications Albuterol (Albut/Ipratrop 3mg/0.5mg Neb 3 Ml Vial) 12 ml INH ONE STA Stop: 08/31/24 07:33 Last Admin: 08/31/24 07:46 Dose: 12 ml Documented By: [facility] Dexamethasone Sodium Phosphate (DexamethasonePf 10 Mg/Ml Vial) 10 mg IV NOW ONE Stop: 08/31/24 07:39 Last Admin: 08/31/24 07:44 Dose: 10 mg Documented By: JOSEP Famotidine (Famotidine 20 Mg Tab) 20 mg PO NOW ONE Stop: 08/31/24 09:23 Last Admin: 08/31/24 09:32 Dose: 20 mg Documented By: JOSEP Magnesium Sulfate/Dextrose (Magnesium Sulfate / D5w) 1 gm in 100 mls @ 100 mls/hr IV NOW STA Stop: 08/31/24 08:38 Last Infusion: 08/31/24 08:51 Dose: Infused Documented By: Admin: 08/31/24 07:44 Dose: 100 mls/hr Documented By: JOSEP Sodium Chloride (Nss) 500 mls @ 999 mls/hr IV .Q31M ONE Stop: 08/31/24 08:12 Last Infusion: 08/31/24 08:52 Dose: Infused Documented By: Admin: 08/31/24 07:45 Dose: 999 mls/hr Documented By: JOSEP Ioversol (Optiray 320 125ml) 112 ml IV ONCE ONE Stop: 08/31/24 10:06 Last Admin: 08/31/24 10:05 Dose: 112 ml Documented By: JULIANA Levalbuterol HCl (Levalbuterol Hcl 0.63 Mg/3 Ml Neb) 0.63 mg NEB NOW STA; Protocol Stop: 08/31/24 11:06 Last Admin: 08/31/24 11:10 Dose: 0.63 mg Documented By: JOSEP Levalbuterol HCl (Levalbuterol 1.25 Mg/3 Ml Neb) Confirm Administered Dose 1.25 mg .ROUTE .STK-MED ONE Stop: 08/31/24 13:44 Last Admin: 08/31/24 13:46 Dose: 1.25 mg Documented By: [id number] Medical Decision Making Medical Records Attestation: I reviewed the patient's medical records. Home Medications was personally reviewed by me Laboratory Data Attestation: I reviewed the patient's lab results. 08/31/24 07:30 08/31/24 07:30 Lab Results 08/31/24 08/31/24 08/31/24 Range/Units 07:30 07:34 07:51 WBC 8.67 (4.8-10.8) K/ul RBC 3.72 L (4.20-5.40) M/uL Hgb 12.0 (12.0-16.0) g/dl Hct 35.5 L (37.0-47.0) % MCV 95.4 (80.0-100.0) fL MCH 32.3 (25.0-34.0) pg MCHC 33.8 (32.0-36.0) g/dL RDW Std Deviation 49.0 H (36.4-46.3) fL RDW Coeff of Akiko 14.1 (11.5-14.5) % Plt Count 248 (130-400) K/uL MPV 9.4 (9.4-12.4) fL Immature Gran % (Auto) 0.5 % Neut % (Auto) 75.7 % Lymph % (Auto) 14.5 % Carolina % (Auto) 8.8 % Eos % (Auto) 0.2 % Baso % (Auto) 0.3 % Neut # (Auto) 6.56 H (1.40-6.50) K/uL Lymph # (Auto) 1.26 (1.20-3.40) K/uL Carolina # (Auto) 0.76 H (0.11-0.59) K/uL Eos # (Auto) 0.02 (0.00-0.50) K/uL Baso # (Auto) 0.03 (0.00-0.20) K/uL Immature Gran # (Auto) 0.04 (0.01-0.20) K/uL PT 10.9 (9.0-12.0) Seconds INR 1.0 (0.9-1.1) APTT 23 (21-31) Seconds PTT Ratio 0.9 D-Dimer 710 H* (0-500) ug/L FEU Sodium 140 (136-145) mmol/L Potassium 3.8 (3.5-5.1) mmol/L Chloride 104 (98-107) mmol/L Carbon Dioxide 22 (21-32) mmol/L Anion Gap 14 H (3-11) BUN 15 (6-23) mg/dl Creatinine 1.05 (0.6-1.2) mg/dl Est Cr Clr Drug Dosing 51.3 ml/min eGFR 60.83 BUN/Creatinine Ratio 14.3 (10-20) Glucose 109 H (70-99(Fasting)) mg/dl Calcium 9.6 (8.6-10.3) mg/dl Magnesium 1.9 (1.7-2.4) mg/dl Total Bilirubin 0.7 (0.2-1.0) mg/dl AST 17 (13-39) U/L ALT 8 (7-52) U/L Alkaline Phosphatase 56 (34-104) U/L Troponin I High Sens 16.6 H (0-14) pg/ml B-Natriuretic Peptide 111 H (0-100) pg/ml Total Protein 7.1 (6.0-8.3) gm/dl Albumin 4.1 (3.4-5.0) gm/dl Globulin 3.0 (2.5-4.0) gm/dl Albumin/Globulin Ratio 1.4 (0.9-2) Adenovirus (PCR) Not Detected (NotDetected) B. pertussis DNA (PCR) Not Detected (NotDetected) B.parapertussis DNA PCR Not Detected (NotDetected) C. pneumoniae DNA (PCR) Not Detected (NotDetected) Coronavirus OC43 (PCR) Not Detected (NotDetected) Coronavirus HKU1 (PCR) Not Detected (NotDetected) Coronavirus 229E (PCR) Not Detected (NotDetected) SARS-CoV-2 (PCR) Not Detected (NotDetected) Coronavirus NL63 (PCR) Not Detected (NotDetected) Human Metapneumovir PCR Not Detected (NotDetected) Influenza Type A (PCR) Not Detected (NotDetected) Influenza Type B (PCR) Not Detected (NotDetected) M. pneumoniae (PCR) Not Detected (NotDetected) Parainfluenza 1 (PCR) Not Detected (NotDetected) Parainfluenza 2 (PCR) Not Detected (NotDetected) Parainfluenza 3 (PCR) Not Detected (NotDetected) Parainfluenza 4 (PCR) Not Detected (NotDetected) RSV (PCR) Not Detected (NotDetected) Entero/Rhino (PCR) Not Detected (NotDetected) Imaging Data Attestation: I personally reviewed and interpreted this imaging study as follows: My Impression: My interpretation reportable chest x-ray does not show evidence for any pneumonia, pneumothorax or cardiomegaly. Emphysematous changes are noted. Radiologist report was also reviewed with concurrence. Radiologist's Impression: Chest X-Ray 08/31/24 07:33 SINGLE VIEW CHEST CLINICAL HISTORY: Dyspnea FINDINGS: 2 AP upright chest radiographs are compared to study dated 06/23/2023 and correlated with chest CT dated 05/23/2022. The examination is degraded by portable technique and patient rotation. The cardiomediastinal silhouette is unremarkable noting atherosclerotic calcification of the thoracic aorta. Advanced emphysema and chronic interstitial thickening is similar to previous. Apical scarring is observed with postsurgical change on the left. Additional foci of parenchymal scarring are seen throughout both lungs. No airspace consolidation or large pleural effusion is identified. No pneumothorax is seen. The skeletal structures are osteopenic. The bony thorax is grossly intact. IMPRESSION: Advanced emphysematous change with no acute cardiopulmonary abnormality identified. . ACT 112: Negative or not required by law. Electronically signed by: Binh Henson M.D. 08/31/2024 7:46 AM MDM Narrative See ED Course section for further details of today's visit. The patient presents for evaluation of shortness of breath. Patient does have a known history of asthma exacerbation with chronic asthma. Patient presents with worsening symptoms over the past few days. Workup today is not suggestive of any concerning cardiac etiology, having a normal ECG. She does have a mildly elevated troponin that has been elevated in the past. I do not suspect acute cardiac injury, without evidence for ST elevations or ischemic changes on ECG. I also reviewed prior medical records, showing the patient has safely been administered IV corticosteroids in the past. The patient initially refused the steroids, however indicated that this would be the mainstay of treatment for her asthma/COPD exacerbation. Patient does have a normal creatinine today of 1.05. The patient was administered an hour-long DuoNeb treatment without relief, therefore [facility] and management. The case was also discussed with Dr. Malcolm, ED attending physician, who agrees with workup and admission for further management. Impression Asthma exacerbation in COPD, CKD (chronic kidney disease), stage III Discharge Plan Visit Data Chief Complaint: Shortness of Breath/Dyspnea Stated Complaint: SOB ED Provider: Binh Malcolm ED Midlevel Provider: Arthur Devlin Discharge Problem: Asthma exacerbation in COPD, CKD (chronic kidney disease), stage III Patient Disposition: Admitted As Inpatient Discharge Instructions Interventions: ED Discharge Assessment Last Done: 08/31/24 12:09
[2024-08-31 07:47] LABS: Basophils # (auto) 0.03 K/uL (0.00-0.20); Basophils % (auto) 0.3 %; Eosinophils # (auto) 0.02 K/uL (0.00-0.50); Eosinophils % (auto) 0.2 %; Hematocrit (blood only) 35.5 % (37.0-47.0); Immature Granulocytes # (auto) 0.04 K/uL (0.01-0.20); Immature Granulocytes % (auto) 0.5 %; Lymphocytes # (auto) 1.26 K/uL (1.20-3.40); Lymphocytes % (auto) 14.5 %; Mean Corpuscular Hemoglobin 32.3 pg (25.0-34.0); Mean Corpuscular Hgb Conc 33.8 g/dL (32.0-36.0); Mean Corpuscular Volume 95.4 fL (80.0-100.0); Mean Platelet Volume 9.4 fL (9.4-12.4); Monocytes # (auto) 0.76 K/uL (0.11-0.59); Monocytes % (auto) 8.8 %; Neutrophils # (auto) 6.56 K/uL (1.40-6.50); Neutrophils % (auto) 75.7 %; Platelet Count 248 K/uL (130-400); RDW Coefficient of Variation 14.1 % (11.5-14.5); Red Blood Count 3.72 M/uL (4.20-5.40); White Blood Count 8.67 K/ul (4.8-10.8)
--- NOTE | 2024-08-31 07:47 | XRay Report ---
SINGLE VIEW CHEST CLINICAL HISTORY: Dyspnea FINDINGS: 2 AP upright chest radiographs are compared to study dated 06/23/2023 and correlated with [facility] st CT dated 05/23/2022. The examination is degraded by portable technique and patient rotation. The car diomediastinal silhouette is unremarkable noting atherosclerotic calcification of the thoracic aorta. Advanced emphysema and chronic interstitial thickening is similar to previous. Apical scarring is ob served with postsurgical change on the left. Additional foci of parenchymal scarring are seen through out both lungs. No airspace consolidation or large pleural effusion is identified. No pneumothorax is seen. The skeletal structures are osteopenic. The bony thorax is grossly intact. IMPRESSION: Advanced emphysematous change with no acute cardiopulmonary abnormality identified. . ACT 112: Negative or not required by law. Electronically signed by: Binh Henson M.D. 08/31/2024 7:46 AM
[2024-08-31 08:07] LABS: Albumin Globulin Ratio 1.4 (0.9-2); Albumin Level 4.1 gm/dl (3.4-5.0); BUN Creatinine Ratio 14.3 (10-20); Bilirubin,Total 0.7 mg/dl (0.2-1.0); Calcium 9.6 mg/dl (8.6-10.3); Creatinine Clr Calc Pharmacy 51.3 ml/min; Magnesium 1.9 mg/dl (1.7-2.4); Potassium 3.8 mmol/L (3.5-5.1); Total Protein 7.1 gm/dl (6.0-8.3)
[2024-08-31 08:13] LABS: Troponin I High Sensitivity 16.6 pg/ml (0-14)
[2024-08-31 08:18] LABS: Partial Thromboplastin Ratio 0.9; Partial Thromboplastin Time 23 Seconds (21-31); Prothrombin Time 10.9 Seconds (9.0-12.0)
[2024-08-31 08:33] LABS: Adenovirus PCR Not Detected (NotDetected); Bordetella parapertussis PCR Not Detected (NotDetected); Bordetella pertussis PCR Not Detected (NotDetected); Chlamydia pneumoniae PCR Not Detected (NotDetected); Coronavirus 229E PCR Not Detected (NotDetected); Coronavirus CoV-2 (COVID19)PCR Not Detected (NotDetected); Coronavirus HKU1 PCR Not Detected (NotDetected); Coronavirus NL63 PCR Not Detected (NotDetected); Coronavirus OC43PCR Not Detected (NotDetected); Human Metapneumovirus PCR Not Detected (NotDetected); Influenza A PCR Not Detected (NotDetected); Influenza B PCR Not Detected (NotDetected); Mycoplasma pneumoniae PCR Not Detected (NotDetected); Parainfluenza Virus 1 PCR Not Detected (NotDetected); Parainfluenza Virus 2 PCR Not Detected (NotDetected); Parainfluenza Virus 3 PCR Not Detected (NotDetected); Parainfluenza Virus 4 PCR Not Detected (NotDetected); Respiratory Syncytial VirusPCR Not Detected (NotDetected); Rhinovirus/Enterovirus PCR Not Detected (NotDetected)
[2024-08-31] MEDS: FAMOTIDINE 20 MG TAB PO ONE (09:32)
[2024-08-31 09:45] LABS: D Dimer 710 ug/L FEU (0-500)
[2024-08-31] MEDS: OPTIRAY 320 125ml IV ONE (10:05)
[2024-08-31 10:06] LABS: Base Excess ABG -3.2 mEq/L (-9-1.8); HCO3 ABG 20 mmol/L (19-24); Oxygen Saturation ABG 98.9 % (90-95); PCO2 ABG 28 mmHg (35-46); PO2 ABG 86 mmHg (80-95); pH ABG 7.45 (7.35-7.45)
--- NOTE | 2024-08-31 10:07 | History & Physical Report ---
Date of Service August 31, 2024 Assessment & Plan (1) Asthma exacerbation in COPD: (2) Acute on chronic heart failure with reduced ejection fraction and diastolic dysfunction: (3) CKD (chronic kidney disease), stage III: (4) Acute on chronic respiratory failure with hypoxia: (5) Hypertension: (6) HLD (hyperlipidemia): (7) CAD (coronary artery disease): (8) Hypothyroidism: (9) HFrEF (heart failure with reduced ejection fraction): Plan Assessment and plan: Acute on chronic hypoxic respiratory failure: Hx COPDchronically On 2 L: Maintained on an albuterol inhaler/albuterol nebs at home -Follows with pulmonology, previously on Spiriva consider maintenance inhaler on DC Currently on 2 L still with shortness of breath, ABG with normal pH, no hypoxia Continue IV Solu-Medrol every 12, patient with low tolerance for steroids Levalbuterol ordered due to sinus tachycardia secondary to nebulizers/steroids Chest PT/hypertonic saline nebs/Robitussin as needed for cough Consider pulmonology consult if no improvement Hx chronic diastolic CHFEF 35%: On Jardiance/Aldactone at home, appears on the tubing drier side Recheck echo, last EF was 35%, BNP elevated at 111 Continue Jardiance, hold Aldactone Carefully monitor I&O, did receive 500 cc NSS in ED Hx hypothyroidism: Continue Synthroid Hx CAD/HLD/GA: Continue aspirin in a.m./Entresto/Repatha on DC/metoprolol Hx chronic pain syndrome: Continue Oxy as needed A total of 60 minutes was spent on chart review/reviewing medical history/facilitation of plan of care/discussion with specialist Full code DVT prophylaxis: Heparin sub-q History of Present Illness Chief Complaint: Shortness of breath Primary Care Provider: ALIYAH Goldman The patient is a 59-year-old female with a past medical history of acute on chronic diastolic dysfunction with reduced EF35%, CKD stage III, COPDchronically on 2 L, anxiety, HLD, GA, CAD, hypothyroidism who reports to the ED on 08/31/2024 with complaints of increasing shortness of breath and wheezing. She reports over the past few days her shortness of breath has been worse. She wears 2 L of oxygen [id number]. She reports her COPD is normally managed at home with albuterol inhaler and nebulizer treatments. She reports following with pulmonology outpatient. She denies any recent viral illness. She denies any sick contacts or recent travel. She denies any nause a/vomiting/diarrhea. She denies chest pain/abdominal pain. On exam, she reports still feeling short of breath despite nebulizer treatment and a dose of dexamethasone. She reports having issues with steroids in the past because it makes it hard for her to sleep. She reports being compliant with home medications. Patient does not appear fluid overloaded on exam. On arrival to the ED, labs remarkable for D-dimer 710, anion gap 14, Trope 16.6, BNP 111. Her viral panel was negative Chest x-ray showed advanced emphysematous change with no acute cardiopulmonary abnormality The patient was given an hour-long nebulizer in the ER and 1 dose of IV dexamethasone 10 mg ABG with pH of 7.45, CO2 28, O2 86, bicarb 20 The patient will be admitted for further management Allergies Allergy/AdvReac Type Severity Reaction Status Date / Time tramadol Allergy Severe Seizure Verified 02/23/24 07:31 adhesive Allergy Mild BANDAIDS : Verified 02/23/24 07:31 SKIN ABRASION ketorolac [From Toradol] Allergy Mild HX KIDNEY Verified 02/23/24 07:31 FAILURE adhesive tape Allergy Unknown SKIN TEARS Verified 02/23/24 07:31 ibuprofen Allergy Unknown HX KIDNEY Verified 02/23/24 07:31 FAILURE NSAIDS (Non-Steroidal Allergy Unknown HX KIDNEY Verified 02/23/24 07:31 Anti-Inflamma FAILURE Sulfa (Sulfonamide Allergy Unknown HIVES Verified 02/23/24 07:31 Antibiotics) meperidine AdvReac Unknown NOT A Verified 02/23/24 07:31 VERIFIED RXN: MOOD SWINGS prednisone AdvReac Unknown Patient Verified 02/23/24 07:31 Reports Contraindication in Kidney Failure/SEE NOTES rosuvastatin [From Crestor] AdvReac Unknown Weakness, Verified 02/23/24 07:31 RHABDOMYLOSIS, ACUTE RENAL FAILURE Home Medications Medication Instructions Recorded Confirmed Type albuterol sulfate 90 mcg/actuation 2 puff inhalation Q4H PRN 03/10/22 08/31/24 History aerosol inhaler cough,SOB or wheezing aspirin 81 mg tablet,delayed 81 mg PO QAM 03/10/22 08/31/24 History release evolocumab 420 mg/3.5 mL 420 mg subcut Q30D 03/10/22 08/31/24 History subcutaneous wearable injector (Repatha Pushtronex) folic acid 1 mg tablet 1 mg PO QAM 03/10/22 08/31/24 History levothyroxine 75 mcg tablet 75 mcg PO QAM 03/10/22 08/31/24 History (Synthroid) lorazepam 0.5 mg tablet 0.5 mg PO DAILY PRN Anxiety 03/10/22 08/31/24 History metoprolol succinate 25 mg 25 - 50 mg PO UD 03/10/22 08/31/24 History tablet,extended release 24 hr omeprazole 20 mg capsule,delayed 20 mg PO BID 03/10/22 08/31/24 History release pregabalin 75 mg capsule 75 mg PO TID 03/10/22 08/31/24 History midodrine 2.5 mg tablet 2.5 mg PO TID@0800,1200,1700 #90 05/06/22 08/31/24 Rx tabs acetaminophen 325 mg tablet 325 mg PO Q6H PRN Fever Or Pain 10/19/22 08/31/24 History methocarbamol 500 mg tablet 500 mg PO TID PRN muscle spasms 10/19/22 08/31/24 History ondansetron HCl 4 mg tablet 4 mg PO Q8 PRN Nausea 10/19/22 08/31/24 History spironolactone 25 mg tablet 12.5 mg PO UD 10/19/22 08/31/24 History (Aldactone) albuterol sulfate 2.5 mg/3 mL 2.5 mg continuous nebulization QID 06/22/23 08/31/24 History (0.083 %) solution for nebulization PRN Wheezing empagliflozin 25 mg tablet 25 mg PO QAM heart failure 01/21/24 08/31/24 History (Jardiance) paroxetine HCl 40 mg tablet (Paxil) 40 mg PO HS 01/21/24 08/31/24 History sacubitril 24 mg-valsartan 26 mg 1 tab PO BID 01/21/24 08/31/24 History tablet (Entresto) oxycodone 5 mg tablet 5 mg PO Q4H PRN pain #15 tabs 08/27/24 08/31/24 Rx Past Med/Surg History Problem List Right lumbar radiculitis (Acute) Asthma exacerbation in COPD (Acute) Acute metabolic encephalopathy Left lower lobe pneumonia Encounter for pre-operative examination Acute on chronic heart failure with reduced ejection fraction and diastolic dysfunction CKD (chronic kidney disease), stage III Acute on chronic respiratory failure with hypoxia DVT prophylaxis Pulmonary nodule Pericardial effusion Hypotension Bacteremia Prolonged QT interval Hypertension Diarrhea (Acute) Lab test negative for COVID-19 virus (Acute) Nausea & vomiting (Acute) Colitis (Acute) Acute dehydration (Acute) Electrolyte abnormality Hypomagnesemia (Acute) Nausea and vomiting (Acute) Hypokalemia (Acute) Generalized abdominal pain (Acute) Pericardial effusion Left ventricular systolic dysfunction UNRULY (acute kidney injury) Chronic pericarditis with effusion UTI (urinary tract infection) Acute respiratory failure with hypercapnia Acute exacerbation of chronic obstructive pulmonary disease (Acute) Acute respiratory distress (Acute) Influenza A (Acute) Hypotension Volume overload Acute respiratory failure with hypoxia Anxiety Depression Electrolyte abnormality Transaminitis DVT prophylaxis COPD (chronic obstructive pulmonary disease) (Acute) HLD (hyperlipidemia) Rhabdomyolysis Acute renal failure Pulmonary nodule Nausea (Acute) Hypokalemia (Acute) COPD exacerbation (Acute) Wrist pain, right (Acute) Seizure (Acute) Influenza A (Acute) Hypoxia (Acute) Hypokalemia (Acute) Hypokalemia (Acute) Hypokalemia (Acute) COPD exacerbation (Acute) COPD exacerbation (Acute) Bronchitis (Acute) Asthma exacerbation in COPD (Acute) Acute bronchitis (Acute) Acute bronchitis (Acute) Cellulitis (Acute) CAD (coronary artery disease) Hypothyroidism HFrEF (heart failure with reduced ejection fraction) hx Medical History Emphysema/COPD daily nebulizer, and prn neb and inh; f/u pulmonology at [facility] and [place] 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 History of colitis Decreased mobility lt arm>CRPS PTSD (post-traumatic stress disorder) Unique anesthetic considerations on preoperative anesthesia assessment high level anxiety when sedated, hx intubation w Flu A....PTSD, "gets scared when put to sleep" History of colon polyps Low blood pressure currently on midodrine; f/u [facility] cardio at and [place] History of influenza INFLUENZA A, February 2022 - [facility] hospitalization, "intubated while in the hospital" Pain syndrome, chronic chronic regional pain syndrome : left arm/received lidocaine injections in [place]/every three months/due may 2023. left limb restriction. History of renal failure "from her crestor medication" Oxygen dependent 2 L o2 continuous. Emphysema lung Statin intolerance Chronic pain see pain clinic for lt arm and neck, @[facility] Anxiety Shortness of breath chronic Neurofibromatosis Hypokalemia HX / CAN NOT TOLERATE PO POTASSIUM PILLS DUE TO GASTROPARESIS Hx of bronchitis Myocardial infarction 2010 - CHEST PAIN -[facility] ER AND HAD HEART CATH WITH ONE STENT (BARE METAL) FOLLOW WITH [facility] Seizure 2013 ONLY HAD ONE -- ADMITTED TO [facility] --- METABOLIC RELATED ---- NO MEDICATION Pneumothorax AGE 24 - SURGERY TO REPAIR THE LEFT SIDE AND CHEMICAL TREATMENT ON THE RIGHT SIDE AT [place] Gastroparesis Cavernous hemangioma of brain stable Surgical History Hx of right cataract extraction History of heart artery stent 2010, [facility], x1 stent; f/u s cardio at History of endoscopy Hx of colonoscopy Hx of vaginal surgery 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 Hx of section X2 Hx of cardiac cath 2010, [facility], x1 stent; f/u s cardio at History of hernia repair UMBILICAL Family History Father Lung disease Severe emphysema, pneumothorax Brother Family history of diabetes mellitus Brother Family history of diabetes mellitus Family/Other Family history of cancer Aunt Family history of colonic polyps Grandfather Family history of lymphoma Social History Smoking Status: Current every day smoker Tobacco Type: Cigarettes Age Started Using Tobacco: 11; Age Quit Using Tobacco: 53; packs per day: 1; Cigarettes Per Day: has 1 occasionally; Second Hand Exposure: Yes; Do You Dip or Chew Tobacco: No; Hx Alcohol Use: Yes Alcohol type: beer, wine and hard liquor Hx Substance Use: Yes Last Used Substance: Days (ago) Last Used Substance Other:: daily-"just a few hits a day" Preferred Language: Icelandic Communication Ability: Effective Radio Commentator Required: No Beliefs That Will Affect Care: None marital status: Current Living Situation: Spouse and Family How many Children do You have: 3 Feels Safe at Home: Yes Assistive Devices: Denture - Upper, Denture - Lower, Glasses and Oxygen - Continuous Review of Systems Review of Systems: All systems reviewed & are unremarkable except as noted in HPI & below Physical Exam Constitutional: WD/WN, vitals as above Eyes: PERRL, conjunctivae normal, anicteric sclerae ENMT: external ear and nose normal, oropharynx normal Neck: trachea midline, no thyromegaly Respiratory: Auscultation: + crackles, + rales and + wheezes Cardiovascular: RRR, no murmur, no edema (Tachycardic in the 130s after nebulizer) Rate/Rhythm: regular rate Gastrointestinal (Abdomen): normal bowel sounds, soft, nontender, no hepatosplenomegaly Musculoskeletal: no cyanosis or clubbing, extremities motor strength 5/5 Skin: no rashes, warm and dry Neurologic: PERRL, EOMI, accommodation nl, no face palsy, no dysarthria Psychiatric: A+Ox3, euthymic affect Lymphatic: no cervical or axillary lymphadenopathy Results & Data Results & Data Vital Signs (Past 12 Hours) Vital Signs Pulse Pulse Resp BP BP Pulse Ox O2 Del Method 08/31/24 08:29 125 H 08/31/24 07:58 121 H 20 138/96 99 Nasal Cannula 08/31/24 07:58 99 Nasal Cannula 08/31/24 07:58 Nasal Cannula 08/31/24 07:58 122 H 20 99 Nasal Cannula 08/31/24 07:48 81 20 94 Nasal Cannula 08/31/24 07:29 128 H 20 138/96 98 Nasal Cannula O2 Flow Rate 08/31/24 08:29 08/31/24 07:58 2 08/31/24 07:58 2 08/31/24 07:58 2 08/31/24 07:58 2 08/31/24 07:48 2 08/31/24 07:29 2 Diagnostic Findings Laboratory Results WBC 8.67 K/ul (4.8-10.8) 08/31/24 07:30 RBC 3.72 M/uL (4.20-5.40) L 08/31/24 07:30 Hgb 12.0 g/dl (12.0-16.0) 08/31/24 07:30 Hct 35.5 % (37.0-47.0) L 08/31/24 07:30 MCV 95.4 fL (80.0-100.0) 08/31/24 07:30 MCH 32.3 pg (25.0-34.0) 08/31/24 07:30 MCHC 33.8 g/dL (32.0-36.0) 08/31/24 07:30 RDW Std Deviation 49.0 fL (36.4-46.3) H 08/31/24 07:30 RDW Coeff of Akiko 14.1 % (11.5-14.5) 08/31/24 07:30 Plt Count 248 K/uL (130-400) 08/31/24 07:30 MPV 9.4 fL (9.4-12.4) 08/31/24 07:30 Immature Gran % (Auto) 0.5 % 08/31/24 07:30 Neut % (Auto) 75.7 % 08/31/24 07:30 Lymph % (Auto) 14.5 % 08/31/24 07:30 [place] % (Auto) 8.8 % 08/31/24 07:30 Eos % (Auto) 0.2 % 08/31/24 07:30 Baso % (Auto) 0.3 % 08/31/24 07:30 Neut # (Auto) 6.56 K/uL (1.40-6.50) H 08/31/24 07:30 Lymph # (Auto) 1.26 K/uL (1.20-3.40) 08/31/24 07:30 [place] # (Auto) 0.76 K/uL (0.11-0.59) H 08/31/24 07:30 Eos # (Auto) 0.02 K/uL (0.00-0.50) 08/31/24 07:30 Baso # (Auto) 0.03 K/uL (0.00-0.20) 08/31/24 07:30 Immature Gran # (Auto) 0.04 K/uL (0.01-0.20) 08/31/24 07:30 PT 10.9 Seconds (9.0-12.0) 08/31/24 07:30 INR 1.0 (0.9-1.1) 08/31/24 07:30 APTT 23 Seconds (21-31) 08/31/24 07:30 PTT Ratio 0.9 08/31/24 07:30 D-Dimer 710 ug/L FEU (0-500) H* 08/31/24 07:30 ABG pH 7.45 (7.35-7.45) 08/31/24 09:48 ABG pCO2 28 mmHg (35-46) L 08/31/24 09:48 ABG pO2 86 mmHg (80-95) 08/31/24 09:48 ABG HCO3 20 mmol/L (19-24) 08/31/24 09:48 ABG O2 Saturation 98.9 % (90-95) H 08/31/24 09:48 ABG Base Excess -3.2 mEq/L (-9-1.8) 08/31/24 09:48 Joao Test Pos (Pos) 08/31/24 09:48 Oxygen Given 2L 08/31/24 09:48 Sodium 140 mmol/L (136-145) 08/31/24 07:30 Potassium 3.8 mmol/L (3.5-5.1) 08/31/24 07:30 Chloride 104 mmol/L (98-107) 08/31/24 07:30 Carbon Dioxide 22 mmol/L (21-32) 08/31/24 07:30 Anion Gap 14 (3-11) H 08/31/24 07:30 BUN 15 mg/dl (6-23) 08/31/24 07:30 Creatinine 1.05 mg/dl (0.6-1.2) 08/31/24 07:30 Est Cr Clr Drug Dosing 51.3 ml/min 08/31/24 07:30 eGFR 60.83 08/31/24 07:30 BUN/Creatinine Ratio 14.3 (10-20) 08/31/24 07:30 Glucose 109 mg/dl (70-99(Fasting)) H 08/31/24 07:30 Calcium 9.6 mg/dl (8.6-10.3) 08/31/24 07:30 Magnesium 1.9 mg/dl (1.7-2.4) 08/31/24 07:30 Total Bilirubin 0.7 mg/dl (0.2-1.0) 08/31/24 07:30 AST 17 U/L (13-39) 08/31/24 07:30 ALT 8 U/L (7-52) 08/31/24 07:30 Alkaline Phosphatase 56 U/L (34-104) 08/31/24 07:30 Troponin I High Sens 16.6 pg/ml (0-14) H 08/31/24 07:30 B-Natriuretic Peptide 111 pg/ml (0-100) H 08/31/24 07:51 Total Protein 7.1 gm/dl (6.0-8.3) 08/31/24 07:30 Albumin 4.1 gm/dl (3.4-5.0) 08/31/24 07:30 Globulin 3.0 gm/dl (2.5-4.0) 08/31/24 07:30 Albumin/Globulin Ratio 1.4 (0.9-2) 08/31/24 07:30 Adenovirus (PCR) Not Detected (NotDetected) 08/31/24 07:34 B. pertussis DNA (PCR) Not Detected (NotDetected) 08/31/24 07:34 B.parapertussis DNA PCR Not Detected (NotDetected) 08/31/24 07:34 C. pneumoniae DNA (PCR) Not Detected (NotDetected) 08/31/24 07:34 Coronavirus OC43 (PCR) Not Detected (NotDetected) 08/31/24 07:34 Coronavirus HKU1 (PCR) Not Detected (NotDetected) 08/31/24 07:34 Coronavirus 229E (PCR) Not Detected (NotDetected) 08/31/24 07:34 SARS-CoV-2 (PCR) Not Detected (NotDetected) 08/31/24 07:34 Coronavirus NL63 (PCR) Not Detected (NotDetected) 08/31/24 07:34 Human Metapneumovir PCR Not Detected (NotDetected) 08/31/24 07:34 Influenza Type A (PCR) Not Detected (NotDetected) 08/31/24 07:34 Influenza Type B (PCR) Not Detected (NotDetected) 08/31/24 07:34 M. pneumoniae (PCR) Not Detected (NotDetected) 08/31/24 07:34 Parainfluenza 1 (PCR) Not Detected (NotDetected) 08/31/24 07:34 Parainfluenza 2 (PCR) Not Detected (NotDetected) 08/31/24 07:34 Parainfluenza 3 (PCR) Not Detected (NotDetected) 08/31/24 07:34 Parainfluenza 4 (PCR) Not Detected (NotDetected) 08/31/24 07:34 RSV (PCR) Not Detected (NotDetected) 08/31/24 07:34 Entero/Rhino (PCR) Not Detected (NotDetected) 08/31/24 07:34 Impressions Chest X-Ray 08/31/24 07:33 SINGLE VIEW CHEST CLINICAL HISTORY: Dyspnea FINDINGS: 2 AP upright chest radiographs are compared to study dated 06/23/2023 and correlated with chest CT dated 05/23/2022. The examination is degraded by portable technique and patient rotation. The cardiomediastinal silhouette is unremarkable noting atherosclerotic calcification of the thoracic aorta. Advanced emphysema and chronic interstitial thickening is similar to previous. Apical scarring is observed with postsurgical change on the left. Additional foci of parenchymal scarring are seen throughout both lungs. No airspace consolidation or large pleural effusion is identified. No pneumothorax is seen. The skeletal structures are osteopenic. The bony thorax is grossly intact. IMPRESSION: Advanced emphysematous change with no acute cardiopulmonary abnormality identified. . ACT 112: Negative or not required by law. Electronically signed by: Binh Henson M.D. 08/31/2024 7:46 AM Code Status & VTE Plan VTE Prophylaxis Plan VTE Prophylaxis will be ordered: Yes Supervising Physician Co-Signing Physician Notes Patient is a 59-year-old female with history of COPD, chronic oxygen dependency 2 L at baseline, CHF, CKD, hypothyroidism, CAD and other medical problems presents with 2-3 days of worsening shortness of breath associated with cough and an a episode of hemoptysis while in ED. Patient also admits to have chest congestion/tightness. She was previously on Spiriva but currently not on any maintenance inhalers. Has been using her nebulizers to control her symptoms. Patient visited ED 4 days ago for sciatic pain which is currently controlled. She denies any chest pain, nausea, vomiting, dizziness, sick contact. She previously followed with a forensic accountant which currently has been more than 9- year per patient. Please review HPI for complete details of presentation. I personally reviewed blood work and imaging studies. D-dimer elevated at 710, CTA showed no PE. BNP elevated 111. Patient received hour-long nebs in ED to control her symptoms. CT chest also showed no signs of volume overload, pneumonia. BioFire negative. Urinalysis, echo currently pending. Physical Exam: Vitals signs as noted above General Appearance:Moderately built and nourished, chronically appearing, mild resp distress Head: normocephalic, Atraumatic,+ poor dentition Eyes: normal inspection, EOMI Neck: supple, Trachea midline Respiratory/Chest: Decreased breath sounds, scattered wheezing, minimal accessory muscle use Cardiovascular: S1, S2, No murmur, + tachycardia Abdomen/GI:Soft, Non tender, Bowel sounds present Extremities/Musculoskeletal:normal inspection, no edema Neurologic/Psych:AAOX3, grossly no focal neurological deficits Skin: normal color, warm Acute COPD exacerbation Chronic respiratory failure with hypoxia Elevated D-dimer Mildly elevated BNP Mild troponin elevation likely demand ischemia secondary to above --CTA showed findings suggestive of severe emphysema with bronchitis and mucous plugging. No PE, pneumonia. ABG showed no hypercarbia BioFire negative Patient is saturating well on baseline supplemental oxygen Agree with nebs, Solu-Medrol, pulmonary hygiene Continue supplemental oxygen to maintain sats 88 to 92% Antitussives as needed Start started on p.o. doxycycline May need to hold DVT prophylaxis/Aspirin if patient has persistence of hemoptysis Avoid flutter, hypertonic saline given hemoptysis. Can consider pulmonology if no improvement Patient will need maintenance inhalers on discharge Resting echo pending I personally interviewed and examined at bedside. Patient's care is coordinated with Anahi LY. I have reviewed the advanced practitioner's documentation, and I agree with plan of care. Please refer to the documentation above for details of patient's presentation and for discussion of other issues. I spent a total [id number] coordinating, documenting, and providing care for this patient excluding time spent in the performance of separately billed services.
[2024-08-31 10:08] LABS: Allen Test Pos (Pos)
--- NOTE | 2024-08-31 10:51 | CT Scan Report ---
CT angio chest PE protocol CT DOSE: 401.32 mGy.cm HISTORY: 59 years-old Female with PE. Acute shortness of breath TECHNIQUE: Multiple CTA images of the chest were obtained after the intravenous administration of 112 ml Optiray. Coronal and sagittal MIPS were obtained from the axial data set and were submitted for review. All measurements were obtained according to NASCET criteria. A dose lowering technique was u tilized adhering to the principles of ALARA. COMPARISON: 05/23/2022 FINDINGS: CTA: Heart is normal in size. No pericardial effusion or thoracic aortic aneurysm. No pulmonary emboli javid ntified. CT CHEST: No thyroid nodule identified. No lymphadenopathy. No pneumothorax, pleural effusion or overt pulmonar y edema. Severe emphysema with bronchitis and mucous plugging. Biapical pleural-parenchymal scarring. Stable spiculated irregular 7 mm nodule in the left upper lobe on image 187 which demonstrates great er than 2 years of stability. Probable nerve sheath tumors in the subpleural tissues adjacent to the left lower lobe on image 59 series 4 measuring 1.1 cm. Mild distal esophageal wall thickening. Unremarkable soft tissues. No acute fracture. IMPRESSION: 1. No pulmonary emboli identified. 2. Severe emphysema with bronchitis and mucous plugging. 3. No pleural effusion or airspace consolidation typical for pneumonia. 4. Unchanged appearance of the biapical pleural parenchymal scarring. 5. No lymphadenopathy. ACT 112: Negative or not required by law. The above report was generated using voice recognition software. It may contain grammatical, syntax o r spelling errors. Electronically signed by: Silas Santos M.D. 08/31/2024 10:49 AM
[2024-08-31] MEDS: LEVALBUTEROL HCL 0.63 MG/3 ML NEB NEB STA (11:10)
[2024-08-31] MEDS ORDERED: methylPREDNISolone 1000 MG/16 ML IV SCH (12:48)
[2024-08-31] MEDS: LORazepam 0.5 MG TAB PO PRN (13:19)
[2024-08-31] MEDS: LEVALBUTEROL 1.25 MG/3 ML NEB ONE (13:46)
[2024-08-31] MEDS: guaiFENesin/DEXTROM SYRUP 200MG/20MG 10ML UDC PO PRN (14:02)
[2024-08-31] MEDS: MIDODRINE HCL 2.5 MG TAB PO SCH (14:03)
[2024-08-31] MEDS: DOXYCYCLINE HYCLATE 100 MG CAP PO SCH (14:03)
[2024-08-31] MEDS: methylPREDNISolone 40 MG in SYRINGE 0 ML IV SCH (14:03)
[2024-08-31 14:07] LABS: Appearance Urine Clear (Clear); Bacteria Urine Automated None Seen (None Seen); Bilirubin Urine Negative (Negative); Blood Urine Trace (Negative); Color Urine Yellow; Epithelial Cell Urine Auto 0-2 /hpf (0-2); Glucose Urine UA Negative (Negative); Ketones Urine 2+ (Negative); Leukocyte Esterase Urine Negative (Negative); Nitrite Urine Negative (Negative); Protein Urine 1+ (Negative); Specific Gravity Urine > 1.045 (1.000-1.030); Urobilinogen Urine Negative (Negative); WBC Urine Automated 0-5 /hpf (0-5)
[2024-08-31] MEDS: PREGABALIN 75 MG CAP PO SCH (14:09)
[2024-08-31] MEDS ORDERED: LEVALBUTEROL 1.25 MG/3 ML NEB NEB SCH (15:00)
--- NOTE | 2024-08-31 15:21 | Electrocardiogram Report ---
Test Reason : Blood Pressure : */* mmHG Vent. Rate : 130 BPM Atrial Rate : 130 BPM P-R Int : 128 ms QRS Dur : 92 ms QT Int : 312 ms P-R-T Axes : 91 84 86 degrees QTcB Int : 459 ms Sinus tachycardia Possible Left atrial enlargement Nonspecific ST abnormality Abnormal ECG When compared with ECG of 22-Jun-2023 16:43, Nonspecific T wave abnormality no longer evident in Inferior leads Confirmed by Berlin Rod ([id number]) on 08/31/2024 3:20:47 PM Referred By: REFERRED SELF Confirmed By: Berlin Rod
[2024-08-31] MEDS: ALBUT/IPRATROP 3MG/0.5MG NEB 3 ML VIAL NEB SCH (15:49)
[2024-08-31] MEDS: LEVALBUTEROL HCL 0.63 MG/3 ML NEB NEB PRN (15:53)
[2024-08-31] MEDS: LEVALBUTEROL 1.25 MG/3 ML NEB NEB SCH (16:18)
[2024-08-31] MEDS: ONDANSETRON INJ 2 MG/ML 2 ML VIAL IV PRN (16:42)
[2024-08-31] MEDS: oxyCODONE HCL IR 5 MG TAB (IMMEDIATE RELEASE) PO PRN (18:05)
[2024-08-31] MEDS: BUDESONIDE 0.5 MG/2 ML VIAL (PULMICORT) NEB SCH (19:40)
[2024-08-31] MEDS: VALSARTAN/SACUBITRIL 26/24MG TAB PO SCH (20:47)
[2024-08-31] MEDS: HEPARIN SOD 5,000 UNIT/0.5 ML VIAL SQ SCH (20:47)
[2024-08-31] MEDS: METOPROLOL SUCC 25MG EXT REL TAB PO SCH (20:48)
[2024-08-31] MEDS: PANTOprazole 40 MG TAB PO SCH (20:48)
[2024-08-31] MEDS: PARoxetine HCL 20 MG TAB PO SCH (20:49)
[2024-09-01] MEDS: ACETAMINOPHEN 325 MG TAB PO PRN (01:00)
--- NOTE | 2024-09-01 07:09 | Hospitalist Progress Note ---
Date of Service September 01, 2024 Assessment & Plan (1) Asthma exacerbation in COPD: (2) Acute on chronic heart failure with reduced ejection fraction and diastolic dysfunction: (3) CKD (chronic kidney disease), stage III: (4) Acute on chronic respiratory failure with hypoxia: (5) Hypertension: (6) HLD (hyperlipidemia): (7) CAD (coronary artery disease): (8) Hypothyroidism: (9) HFrEF (heart failure with reduced ejection fraction): Plan Ms. Brown is a 59-year-old female with a past medical history of acute on chronic diastolic dysfunction with reduced EF35%, CKD stage III, chronic hypoxic respiratory failure COPDchronically on 2 L, anxiety, HLD, [place], CAD, hypothyroidism who was admitted due to SOB and found to have signs of bronchitis on imaging. Patient admitted for acute on chronic hypoxia iso bronchitis and COPD exacerbation. #Acute on chronic hypoxic respiratory failure, 2L continuous baseline #Bronchitis on imaging #COPD exacerbation Biofire negative; CTA with severe emphysema w/ bronchitis and mucous plugging -Follows with pulmonology, previously on Spiriva Currently on 2 L still with shortness of breath, ABG with normal pH, no hypoxia Continue IV Solu-Medrol every 12, patient with low tolerance for steroids Levalbuterol ordered due to sinus tachycardia secondary to nebulizers/steroids Chest PT/hypertonic saline nebs/Robitussin as needed for cough Schedule mucinex -Continue doxycycline Prescribed Trelegy by Dr. Duong 2022 at last visit, but seems to have not returned to follow #Chronic heart failure with recovered EF #Ischemic Cardiomyopathy #Prior STEMI s/p bare metal stent in RCA ECHO 65-70%, anterior/right lateral pericardidal effusion, no tamponade, appears chronic per ECHO report Recheck echo, last EF was 45%, 06/2023; stable pericardial effusion noted at pam t time On Jardiance/Aldactone at home - GDMT: *BetaB: continue metoprolol 50mg qam/25mg qpm *RAAS: Entresto BID *Narendra: resume aldactone *SGLT: resume Jardiance *ICD: Address outpatient Carefully monitor I&O, did receive 500 cc NSS in ED -Continue ASA -On repatha as OP #hypothyroidism: Continue Synthroid #chronic pain syndrome: Continue Oxy as needed Full code DVT prophylaxis: Heparin sub-q Admission and Anticipated Discharge Date Admission Date: August 31, 2024 Subjective NAEO Reports feeling some subjective improvement overall Endorses ongoing cough, less intense than on presentation but notably better Denies chest pain, palpitations or SOB at rest On baseline O2 this am Reports an episode of hemoptysis v hematemesis---however denies abdominal pain,nausea--stating that the "vomit with blood" happened during severe coughing spell Physical Exam Constitutional: WD/WN, vitals as above Respiratory: notably diminished in all air jerry Cardiovascular: RRR, no murmur, no edema Skin: no rashes, warm and dry Results & Data Results & Data Vital Signs (Past 12 Hours) Vital Signs Temp Pulse Pulse Resp BP Pulse Ox O2 Del Method 09/01/24 03:03 36.7 C 84 18 114/76 98 Nasal Cannula 08/31/24 22:29 36.7 C 105 H 16 129/77 96 Nasal Cannula 08/31/24 21:51 115 H 08/31/24 21:00 Nasal Cannula 08/31/24 19:41 120 H 18 98 Nasal Cannula 08/31/24 19:03 36.9 C 122 H 18 126/84 97 Nasal Cannula O2 Flow Rate 09/01/24 03:03 2 08/31/24 22:29 2 08/31/24 21:51 08/31/24 21:00 2 08/31/24 19:41 2 08/31/24 19:03 2 Laboratory Results Short CBC 08/31/24 Range/Units 07:30 WBC 8.67 (4.8-10.8) K/ul Hgb 12.0 (12.0-16.0) g/dl Hct 35.5 L (37.0-47.0) % Plt Count 248 (130-400) K/uL BMP 08/31/24 07:30 Sodium 140 Potassium 3.8 Chloride 104 Carbon Dioxide 22 BUN 15 Creatinine 1.05 Glucose 109 H Calcium 9.6 Liver Function 08/31/24 Range/Units 07:30 Total Bilirubin 0.7 (0.2-1.0) mg/dl AST 17 (13-39) U/L ALT 8 (7-52) U/L Alkaline Phosphatase 56 (34-104) U/L Albumin 4.1 (3.4-5.0) gm/dl Urine 08/31/24 Range/Units 13:45 Urine Color Yellow Urine Appearance Clear (Clear) Urine pH 6.0 (4.5-7.5) Ur Specific [place] > 1.045 H (1.000-1.030) Urine Protein 1+ H (Negative) Urine Glucose (UA) Negative (Negative) Medications Administered Home Medications Medication Instructions Recorded Confirmed Last Taken albuterol sulfate 90 mcg/actuation 2 puff inhalation Q4H PRN 03/10/22 08/31/24 03/09/22 aerosol inhaler cough,SOB or wheezing aspirin 81 mg tablet,delayed 81 mg PO QAM 03/10/22 08/31/24 08/30/24 release evolocumab 420 mg/3.5 mL 420 mg subcut Q30D 03/10/22 08/31/24 03/30/23 subcutaneous wearable injector (Repatha Pushtronex) folic acid 1 mg tablet 1 mg PO QAM 03/10/22 08/31/24 08/30/24 levothyroxine 75 mcg tablet 75 mcg PO QAM 03/10/22 08/31/24 08/30/24 (Synthroid) lorazepam 0.5 mg tablet 0.5 mg PO DAILY PRN Anxiety 03/10/22 08/31/24 03/09/22 metoprolol succinate 25 mg 25 - 50 mg PO UD 03/10/22 08/31/24 08/30/24 tablet,extended release 24 hr omeprazole 20 mg capsule,delayed 20 mg PO BID 03/10/22 08/31/24 08/30/24 release pregabalin 75 mg capsule 75 mg PO TID 03/10/22 08/31/24 08/30/24 midodrine 2.5 mg tablet 2.5 mg PO TID@0800,1200,1700 #90 05/06/22 08/31/24 08/30/24 tabs acetaminophen 325 mg tablet 325 mg PO Q6H PRN Fever Or Pain 10/19/22 08/31/24 Unknown methocarbamol 500 mg tablet 500 mg PO TID PRN muscle spasms 10/19/22 08/31/24 04/29/23 ondansetron HCl 4 mg tablet 4 mg PO Q8 PRN Nausea 10/19/22 08/31/24 Unknown spironolactone 25 mg tablet 12.5 mg PO UD 10/19/22 08/31/24 02/03/24 (Aldactone) albuterol sulfate 2.5 mg/3 mL 2.5 mg continuous nebulization QID 06/22/23 08/31/24 02/03/24 (0.083 %) solution for nebulization PRN Wheezing empagliflozin 25 mg tablet 25 mg PO QAM heart failure 01/21/24 08/31/24 08/30/24 (Jardiance) paroxetine HCl 40 mg tablet (Paxil) 40 mg PO HS 01/21/24 08/31/24 08/30/24 sacubitril 24 mg-valsartan 26 mg 1 tab PO BID 01/21/24 08/31/24 08/30/24 tablet (Entresto) oxycodone 5 mg tablet 5 mg PO Q4H PRN pain #15 tabs 08/27/24 08/31/24 Unknown Active Medications Generic Name Dose Route Start Last Admin Trade Name Freq PRN Reason Stop Dose Admin Acetaminophen 650 mg 08/31/24 12:48 09/01/24 01:00 Acetaminophen 325 Mg Tab PO 09/30/24 12:47 650 mg Q4H PRN Administration Pain or Fever Albuterol 3 ml 08/31/24 15:00 08/31/24 19:42 Albut/Ipratrop 3mg/0.5mg Neb 3 Ml Vial NEB 09/30/24 14:59 Not Given QIDR [facility] Protocol Budesonide 0.5 mg 08/31/24 19:00 08/31/24 19:40 Budesonide 0.5 Mg/2 Ml Vial (Pulmicort) NEB 09/30/24 18:59 0.5 mg BIDR JUDITH Administration Doxycycline Hyclate 100 mg 08/31/24 12:48 08/31/24 20:49 Doxycycline Hyclate 100 Mg Cap PO 09/07/24 12:47 100 mg BID JUDITH Administration Guaifenesin/Dextromethorphan 10 ml 08/31/24 12:48 08/31/24 14:02 Guaifenesin/Dextrom Syrup 200mg/20mg 10ml Udc PO 09/30/24 12:47 10 ml Q6H PRN Administration Cough Heparin Sodium (Porcine) 5,000 units 08/31/24 21:00 08/31/24 20:47 Heparin Sod 5,000 Unit/0.5 Ml Vial SQ 09/30/24 20:59 5,000 units Q12 JUDITH Administration Methylprednisolone 40 mg/ 0.64 mls @ 1.5 mls/min 08/31/24 13:30 09/01/24 00:48 Syringe IV 09/30/24 13:29 1.5 mls/min Q12H JUDITH Administration Levalbuterol HCl 0.63 mg 08/31/24 13:33 08/31/24 15:53 Levalbuterol Hcl 0.63 Mg/3 Ml Neb NEB 09/30/24 13:32 0.63 mg Q6R PRN Administration Shortness Of Breath Or Wheezing Protocol Lorazepam 0.5 mg 08/31/24 12:48 08/31/24 13:19 Lorazepam 0.5 Mg Tab PO 09/30/24 12:47 0.5 mg DAILY PRN Administration Anxiety Metoprolol Succinate 25 mg 08/31/24 21:00 08/31/24 20:48 Metoprolol Succ 25mg Ext Rel Tab PO 09/30/24 20:59 25 mg HS JUDITH Administration Midodrine 2.5 mg 08/31/24 12:48 08/31/24 16:42 Midodrine Hcl 2.5 Mg Tab PO 09/30/24 12:47 2.5 mg TID@0800,1200,1700 JUDITH Administration Ondansetron HCl 4 mg 08/31/24 16:17 08/31/24 16:42 Ondansetron Inj 2 Mg/Ml 2 Ml Vial IV 09/30/24 16:16 4 mg Q6H PRN Administration Nausea And Vomiting Oxycodone HCl 5 mg 08/31/24 12:48 08/31/24 22:34 Oxycodone Hcl Ir 5 Mg Tab (Immediate Release) PO 09/14/24 12:47 5 mg Q4H PRN Administration pain Pantoprazole Sodium 40 mg 08/31/24 21:00 08/31/24 20:48 Pantoprazole 40 Mg Tab PO 09/30/24 20:59 40 mg BID JUDITH Administration Protocol Paroxetine HCl 40 mg 08/31/24 21:00 08/31/24 20:49 Paroxetine Hcl 20 Mg Tab PO 09/30/24 20:59 40 mg HS JUDITH Administration Pregabalin 75 mg 08/31/24 14:00 08/31/24 20:47 Pregabalin 75 Mg Cap PO 09/30/24 13:59 75 mg TID JUDITH Administration Sacubitril/Valsartan 1 tab 08/31/24 21:00 08/31/24 20:47 Valsartan/Sacubitril 26/24mg Tab PO 09/30/24 20:59 1 tab BID JUDITH Administration
[2024-09-01] MEDS: FOLIC ACID 1 MG TAB PO SCH (07:56)
[2024-09-01] MEDS: METOPROLOL SUCC 50MG EXT REL TAB PO SCH (07:57)
[2024-09-01] MEDS: LEVOTHYROXINE SODIUM 75 MCG TABLET PO SCH (07:57)
[2024-09-01] MEDS: ASPIRIN 81 MG ECTAB PO SCH (07:58)
[2024-09-01 08:01] LABS: Basophils # (auto) 0.01 K/uL (0.00-0.20); Basophils % (auto) 0.1 %; Eosinophils # (auto) 0.01 K/uL (0.00-0.50); Eosinophils % (auto) 0.1 %; Hematocrit (blood only) 34.6 % (37.0-47.0); Hemoglobin 11.5 g/dl (12.0-16.0); Immature Granulocytes # (auto) 0.12 K/uL (0.01-0.20); Immature Granulocytes % (auto) 1.5 %; Lymphocytes % (auto) 10.2 %; Mean Corpuscular Hemoglobin 31.8 pg (25.0-34.0); Mean Corpuscular Hgb Conc 33.2 g/dL (32.0-36.0); Mean Corpuscular Volume 95.6 fL (80.0-100.0); Mean Platelet Volume 9.4 fL (9.4-12.4); Monocytes # (auto) 0.23 K/uL (0.11-0.59); Monocytes % (auto) 2.9 %; Neutrophils # (auto) 6.64 K/uL (1.40-6.50); Neutrophils % (auto) 85.2 %; Platelet Count 275 K/uL (130-400); RDW Coefficient of Variation 14.2 % (11.5-14.5); RDW Standard Deviation 49.3 fL (36.4-46.3); Red Blood Count 3.62 M/uL (4.20-5.40); White Blood Count 7.81 K/ul (4.8-10.8)
[2024-09-01 08:27] LABS: Albumin Globulin Ratio 1.3 (0.9-2); Albumin Level 3.9 gm/dl (3.4-5.0); BUN Creatinine Ratio 13.7 (10-20); Bilirubin,Total 0.5 mg/dl (0.2-1.0); Globulin 2.9 gm/dl (2.5-4.0); Magnesium 2.1 mg/dl (1.7-2.4); Total Protein 6.8 gm/dl (6.0-8.3)
[2024-09-01] MEDS ORDERED: METOPROLOL SUCC 25MG EXT REL TAB PO SCH (09:00)
[2024-09-01] MEDS: guaiFENesin/CODEINE 100MG/10MG 5ML UDC PO STA (10:34)
[2024-09-01] MEDS: BENZONATATE 100 MG CAPSULE PO SCH (10:34)
[2024-09-01] MEDS: guaiFENesin 600 MG TABCR PO SCH (10:34)
[2024-09-01] MEDS: PANTOprazole 40 MG in SYRINGE 0 ML IV SCH (10:35)
--- NOTE | 2024-09-01 11:28 | Electrocardiogram Report ---
Test Reason : Blood Pressure : */* mmHG Vent. Rate : 89 BPM Atrial Rate : 89 BPM P-R Int : 140 ms QRS Dur : 98 ms QT Int : 378 ms P-R-T Axes : 91 83 72 degrees QTcB Int : 459 ms Sinus rhythm with frequent Premature ventricular complexes Possible Left atrial enlargement Borderline ECG When compared with ECG of 31-Aug-2024 07:32, Premature ventricular complexes are now Present Nonspecific T wave abnormality no longer evident in Lateral leads Confirmed by [place] Rod [id number] on 09/01/2024 11:27:51 AM Referred By: REFERRED SELF Confirmed By: Berlin Rod
[2024-09-01] MEDS: SPIRONOLACTONE 12.5 MG TAB PO SCH (14:27)
[2024-09-02] MEDS: methylPREDNISolone 40 MG in SYRINGE 0 ML IV SCH (07:58)
[2024-09-02] MEDS: EMPAGLIFLOZIN 25 MG TAB PO SCH (07:59)
[2024-09-02 08:23] LABS: Hematocrit (blood only) 33.7 % (37.0-47.0); Hemoglobin 12.2 g/dl (12.0-16.0); Mean Corpuscular Hgb Conc 36.2 g/dL (32.0-36.0); Mean Corpuscular Volume 96.6 fL (80.0-100.0); Mean Platelet Volume 10.3 fL (9.4-12.4); Platelet Count 282 K/uL (130-400); RDW Coefficient of Variation 14.6 % (11.5-14.5); RDW Standard Deviation 51.3 fL (36.4-46.3); Red Blood Count 3.49 M/uL (4.20-5.40); White Blood Count 10.26 K/ul (4.8-10.8)
[2024-09-02 08:32] LABS: Calcium 8.9 mg/dl (8.6-10.3); Magnesium 2.1 mg/dl (1.7-2.4); Potassium 4.2 mmol/L (3.5-5.1)
[2024-09-02 08:38] LABS: BUN Creatinine Ratio 15.4 (10-20); Creatinine Clr Calc Pharmacy 41.4 ml/min; Phosphorus 2.6 mg/dl (2.5-4.9)
[2024-09-02] MEDS ORDERED: ALBUT/IPRATROP 3MG/0.5MG NEB 3 ML VIAL NEB PRN (09:33)
[2024-09-02] MEDS: LIDOCAINE 5% 1 PATCH TD STA (10:22)
[2024-09-02] MEDS: FORMOTEROL 20 MCG/2 ML VIAL NEB SCH (10:28)
[2024-09-02] MEDS: UMECLIDINIUM/VILANTEROL 62.5/25MCG 7 PUFFS/INHALER INH SCH (11:49)
--- NOTE | 2024-09-02 12:15 | Hospitalist Progress Note ---
Date of Service September 02, 2024 Assessment & Plan (1) Asthma exacerbation in COPD: (2) Acute on chronic heart failure with reduced ejection fraction and diastolic dysfunction: (3) CKD (chronic kidney disease), stage III: (4) Acute on chronic respiratory failure with hypoxia: (5) Hypertension: (6) HLD (hyperlipidemia): (7) CAD (coronary artery disease): (8) Hypothyroidism: (9) HFrEF (heart failure with reduced ejection fraction): Plan Ms. Brown is a 59-year-old female with a past medical history of acute on chronic diastolic dysfunction with reduced EF35%, CKD stage III, chronic hypoxic respiratory failure COPDchronically on 2 L, anxiety, HLD, [place], CAD, hypothyroidism who was admitted due to SOB and found to have signs of bronchitis on imaging. Patient admitted for acute on chronic hypoxia iso bronchitis and COPD exacerbation. #Acute on chronic hypoxic respiratory failure, 2L continuous baseline #Bronchitis on imaging #COPD exacerbation Biofire negative; CTA with severe emphysema w/ bronchitis and mucous plugging -Follows with pulmonology, previously on Spiriva Currently on 2 L still with shortness of breath, ABG with normal pH, no hypoxia Continue IV Solu-Medrol every 12, patient with low tolerance for steroids Levalbuterol ordered due to sinus tachycardia secondary to nebulizers/steroids Chest PT/hypertonic saline nebs/Robitussin as needed for cough Schedule mucinex -Continue doxycycline Prescribed Trelegy by Dr. Duong 2022 at last visit, but seems to have not returned to follow Starting LAMA/LABA/ICS Budesonide and pulmicort bid continue pulm toilet as above #Chronic heart failure with recovered EF #Ischemic Cardiomyopathy #Prior STEMI s/p bare metal stent in RCA ECHO 65-70%, anterior/right lateral pericardidal effusion, no tamponade, appears chronic per ECHO report Recheck echo, last EF was 45%, 06/2023; stable pericardial effusion noted at that time On Jardiance/Aldactone at home - GDMT: *BetaB: continue metoprolol 50mg qam/25mg qpm *RAAS: Entresto BID *Narendra: continue aldactone *SGLT: continue Jardiance *ICD: Address outpatient Carefully monitor I&O, did receive 500 cc NSS in ED -Continue ASA -On repatha as OP #hypothyroidism: Continue Synthroid #chronic pain syndrome: Continue Oxy as needed Full code DVT prophylaxis: Heparin sub-q Admission and Anticipated Discharge Date Admission Date: August 31, 2024 Subjective SAÚL reports some expiratory difficulty Discussed inhalers at length--she notes that she has not had coverage for some time and the Trelegy inhaler was quite expensive out of pocket Patient initially declined--but then agreed for inhalers and other nebs to help in this acute situation. She does agree with inhalers on discharge if able to find a good op alternative Physical Exam Constitutional: WD/WN, vitals as above Respiratory: diminshed, dry cough in inhalation, prolong expirtatory effort Cardiovascular: RRR, no murmur, no edema Results & Data Results & Data Vital Signs (Past 12 Hours) Vital Signs Temp Pulse Resp BP Pulse Ox O2 Del Method O2 Flow Rate 09/02/24 11:21 37.4 C 65 18 101/66 97 Nasal Cannula 2.0 09/02/24 10:29 75 16 96 Nasal Cannula 2 09/02/24 09:54 Nasal Cannula 2 09/02/24 08:00 36.5 C 66 18 105/62 98 Nasal Cannula 2 09/02/24 07:32 72 16 98 Nasal Cannula 2 09/02/24 02:56 37.2 C 70 18 98/68 L 99 Nasal Cannula 2 Diagnostic Findings Home Medications Medication Instructions Recorded Confirmed Last Taken albuterol sulfate 90 mcg/actuation 2 puff inhalation Q4H PRN 03/10/22 08/31/24 03/09/22 aerosol inhaler cough,SOB or wheezing aspirin 81 mg tablet,delayed 81 mg PO QAM 03/10/22 08/31/24 08/30/24 release evolocumab 420 mg/3.5 mL 420 mg subcut Q30D 03/10/22 08/31/24 03/30/23 subcutaneous wearable injector (Repatha Pushtronex) folic acid 1 mg tablet 1 mg PO QAM 03/10/22 08/31/24 08/30/24 levothyroxine 75 mcg tablet 75 mcg PO QAM 03/10/22 08/31/24 08/30/24 (Synthroid) lorazepam 0.5 mg tablet 0.5 mg PO DAILY PRN Anxiety 03/10/22 08/31/24 03/09/22 metoprolol succinate 25 mg 25 - 50 mg PO UD 03/10/22 08/31/24 08/30/24 tablet,extended release 24 hr omeprazole 20 mg capsule,delayed 20 mg PO BID 03/10/22 08/31/24 08/30/24 release pregabalin 75 mg capsule 75 mg PO TID 03/10/22 08/31/24 08/30/24 midodrine 2.5 mg tablet 2.5 mg PO TID@0800,1200,1700 #90 05/06/22 08/31/24 08/30/24 tabs acetaminophen 325 mg tablet 325 mg PO Q6H PRN Fever Or Pain 10/19/22 08/31/24 Unknown methocarbamol 500 mg tablet 500 mg PO TID PRN muscle spasms 10/19/22 08/31/24 04/29/23 ondansetron HCl 4 mg tablet 4 mg PO Q8 PRN Nausea 10/19/22 08/31/24 Unknown spironolactone 25 mg tablet 12.5 mg PO UD 10/19/22 08/31/24 02/03/24 (Aldactone) albuterol sulfate 2.5 mg/3 mL 2.5 mg continuous nebulization QID 06/22/23 08/31/24 02/03/24 (0.083 %) solution for nebulization PRN Wheezing empagliflozin 25 mg tablet 25 mg PO QAM heart failure 01/21/24 08/31/24 08/30/24 (Jardiance) paroxetine HCl 40 mg tablet (Paxil) 40 mg PO HS 01/21/24 08/31/24 08/30/24 sacubitril 24 mg-valsartan 26 mg 1 tab PO BID 01/21/24 08/31/24 08/30/24 tablet (Entresto) oxycodone 5 mg tablet 5 mg PO Q4H PRN pain #15 tabs 08/27/24 08/31/24 Unknown Active Medications Generic Name Dose Route Start Last Admin Trade Name Freq PRN Reason Stop Dose Admin Acetaminophen 650 mg 08/31/24 12:48 09/01/24 01:00 Acetaminophen 325 Mg Tab PO 09/30/24 12:47 650 mg Q4H PRN Administration Pain or Fever Aspirin 81 mg 09/01/24 09:00 09/02/24 07:59 Aspirin 81 Mg Ectab PO 10/01/24 08:59 81 mg QAM JUDITH Administration Benzonatate 100 mg 09/01/24 09:25 09/02/24 07:58 Benzonatate 100 Mg Capsule PO 10/01/24 09:24 100 mg TID JUDITH Administration Budesonide 0.5 mg 08/31/24 19:00 09/02/24 07:32 Budesonide 0.5 Mg/2 Ml Vial (Pulmicort) NEB 09/30/24 18:59 0.5 mg BIDR JUDITH Administration Doxycycline Hyclate 100 mg 08/31/24 12:48 09/02/24 07:58 Doxycycline Hyclate 100 Mg Cap PO 09/07/24 12:47 100 mg BID JUDITH Administration Empagliflozin 25 mg 09/02/24 09:00 09/02/24 07:59 Empagliflozin 25 Mg Tab PO 10/02/24 08:59 25 mg QAM JUDITH Administration Folic Acid 1 mg 09/01/24 09:00 09/02/24 07:59 Folic Acid 1 Mg Tab PO 10/01/24 08:59 1 mg QAM JUDITH Administration Formoterol Fumarate 20 mcg 09/02/24 09:45 09/02/24 10:28 Formoterol 20 Mcg/2 Ml Vial NEB 10/02/24 09:44 20 mcg BIDR JUDITH Administration Guaifenesin 600 mg 09/01/24 09:00 09/02/24 07:57 Guaifenesin 600 Mg Tabcr PO 10/01/24 08:59 600 mg Q12 JUDITH Administration Guaifenesin/Dextromethorphan 10 ml 08/31/24 12:48 09/02/24 07:57 Guaifenesin/Dextrom Syrup 200mg/20mg 10ml Udc PO 09/30/24 12:47 10 ml Q6H PRN Administration Cough Heparin Sodium (Porcine) 5,000 units 08/31/24 21:00 09/02/24 07:59 Heparin Sod 5,000 Unit/0.5 Ml Vial SQ 09/30/24 20:59 5,000 units Q12 JUDITH Administration Pantoprazole Sodium 40 mg/ 10 mls @ 5 mls/min 09/01/24 09:30 09/02/24 07:57 Syringe IV 10/01/24 09:29 5 mls/min BID JUDITH Administration Methylprednisolone 40 mg/ 0.64 mls @ 1.5 mls/min 09/02/24 09:00 09/02/24 07:58 Syringe IV 10/02/24 08:59 1.5 mls/min DAILY JUDITH Administration Levalbuterol HCl 0.63 mg 08/31/24 13:33 08/31/24 15:53 Levalbuterol Hcl 0.63 Mg/3 Ml Neb NEB 09/30/24 13:32 0.63 mg Q6R PRN Administration Shortness Of Breath Or Wheezing Protocol Levothyroxine Sodium 75 mcg 09/01/24 09:00 09/02/24 07:57 Levothyroxine Sodium 75 Mcg Tablet PO 10/01/24 08:59 75 mcg QAM JUDITH Administration Lorazepam 0.5 mg 08/31/24 12:48 09/01/24 20:31 Lorazepam 0.5 Mg Tab PO 09/30/24 12:47 0.5 mg DAILY PRN Administration Anxiety Metoprolol Succinate 25 mg 08/31/24 21:00 09/01/24 20:35 Metoprolol Succ 25mg Ext Rel Tab PO 09/30/24 20:59 25 mg HS JUDITH Administration Metoprolol Succinate 50 mg 08/31/24 13:25 09/02/24 07:59 Metoprolol Succ 50mg Ext Rel Tab PO 09/30/24 13:24 50 mg QAM JUDITH Administration Midodrine 2.5 mg 08/31/24 12:48 09/02/24 11:49 Midodrine Hcl 2.5 Mg Tab PO 09/30/24 12:47 2.5 mg TID@0800,1200,1700 JUDITH Administration Ondansetron HCl 4 mg 08/31/24 16:17 08/31/24 16:42 Ondansetron Inj 2 Mg/Ml 2 Ml Vial IV 09/30/24 16:16 4 mg Q6H PRN Administration Nausea And Vomiting Oxycodone HCl 5 mg 08/31/24 12:48 09/02/24 07:58 Oxycodone Hcl Ir 5 Mg Tab (Immediate Release) PO 09/14/24 12:47 5 mg Q4H PRN Administration pain Paroxetine HCl 40 mg 08/31/24 21:00 09/01/24 20:33 Paroxetine Hcl 20 Mg Tab PO 09/30/24 20:59 40 mg HS JUDITH Administration Pregabalin 75 mg 08/31/24 14:00 09/02/24 07:58 Pregabalin 75 Mg Cap PO 09/30/24 13:59 75 mg TID JUDITH Administration Sacubitril/Valsartan 1 tab 08/31/24 21:00 09/02/24 07:58 Valsartan/Sacubitril 26/24mg Tab PO 09/30/24 20:59 1 tab BID JUDITH Administration Spironolactone 12.5 mg 09/01/24 11:00 09/02/24 07:59 Spironolactone 12.5 Mg Tab PO 10/01/24 10:59 12.5 mg DAILY JUDITH Administration Umeclidinium/Vilanterol 1 puffs 09/02/24 09:45 09/02/24 11:49 Umeclidinium/Vilanterol 62.5/25mcg 7 Puffs/Inhaler INH 10/02/24 09:44 1 puffs DAILY JUDITH Administration
--- NOTE | 2024-09-02 14:53 | Electrocardiogram Report ---
Test Reason : Blood Pressure : */* mmHG Vent. Rate : 65 BPM Atrial Rate : 65 BPM P-R Int : 134 ms QRS Dur : 98 ms QT Int : 404 ms P-R-T Axes : 91 86 86 degrees QTcB Int : 420 ms Sinus rhythm with sinus arrhythmia with occasional Premature ventricular complexes Otherwise normal ECG When compared with ECG of 01-Sep-2024 05:30, No significant change was found Confirmed by [place] Rod ([id number]) on 09/02/2024 2:53:35 PM Referred By: REFERRED SELF Confirmed By: [place] Rod
[2024-09-02] MEDS: BUDESONIDE 0.5 MG/2 ML VIAL (PULMICORT) NEB SCH (20:17)
[2024-09-03 06:23] LABS: Hematocrit (blood only) 34.2 % (37.0-47.0); Hemoglobin 11.4 g/dl (12.0-16.0); Mean Corpuscular Hemoglobin 32.2 pg (25.0-34.0); Mean Corpuscular Hgb Conc 33.3 g/dL (32.0-36.0); Mean Corpuscular Volume 96.6 fL (80.0-100.0); Mean Platelet Volume 9.8 fL (9.4-12.4); Platelet Count 285 K/uL (130-400); RDW Coefficient of Variation 13.9 % (11.5-14.5); RDW Standard Deviation 49.8 fL (36.4-46.3); Red Blood Count 3.54 M/uL (4.20-5.40); White Blood Count 11.27 K/ul (4.8-10.8)
[2024-09-03 06:40] LABS: BUN Creatinine Ratio 17.6 (10-20); Calcium 8.7 mg/dl (8.6-10.3); Creatinine Clr Calc Pharmacy 35.2 ml/min; Magnesium 1.9 mg/dl (1.7-2.4); Phosphorus 2.7 mg/dl (2.5-4.9); Potassium 3.9 mmol/L (3.5-5.1)
[2024-09-03] MEDS: FLUTICASONE FUROATE 100MCG 14 PUFFS/INHALER INH SCH (08:08)
--- NOTE | 2024-09-03 15:21 | Hospitalist Progress Note ---
Date of Service September 03, 2024 Assessment & Plan (1) Asthma exacerbation in COPD: (2) Acute on chronic heart failure with reduced ejection fraction and diastolic dysfunction: (3) CKD (chronic kidney disease), stage III: (4) Acute on chronic respiratory failure with hypoxia: (5) Hypertension: (6) HLD (hyperlipidemia): (7) CAD (coronary artery disease): (8) Hypothyroidism: (9) HFrEF (heart failure with reduced ejection fraction): Plan Ms. Brown is a 59-year-old female with a past medical history of acute on chronic diastolic dysfunction with reduced EF35%, CKD stage III, chronic hypoxic respiratory failure COPDchronically on 2 L, anxiety, HLD, [place], CAD, hypothyroidism who was admitted due to SOB and found to have signs of bronchitis on imaging. Patient admitted for acute on chronic hypoxia iso bronchitis and COPD exacerbation. #Acute on chronic hypoxic respiratory failure, 2L continuous baseline #Bronchitis on imaging #COPD exacerbation Biofire negative; CTA with severe emphysema w/ bronchitis and mucous plugging -Follows with pulmonology, previously on Spiriva Currently on 2 L still with shortness of breath, ABG with normal pH, no hypoxia patient requested discontinuing steroids, refusing further steroids at this time Levalbuterol ordered due to sinus tachycardia secondary to nebulizers/steroids Chest PT/hypertonic saline nebs/Robitussin as needed for cough Schedule mucinex -Continue doxycycline Prescribed Trelegy by Dr. Duong 2022 at last visit, but seems to have not returned to follow continue LAMA/LABA/ICS Budesonide and pulmicort bid continue pulm toilet as above #UNRULY on CKDIII Reports that she was going to resume spironolactone, but remembers that it was discontinued at another admission in [facility] D/c spironolactone Hold jardiance/entresto, resume as able Repeat BMP in am encourage po #Chronic heart failure with recovered EF #Ischemic Cardiomyopathy #Prior STEMI s/p bare metal stent in RCA ECHO 65-70%, anterior/right lateral pericardidal effusion, no tamponade, appears chronic per ECHO report Recheck echo, last EF was 45%, 06/2023; stable pericardial effusion noted at that time On Jardiance/Aldactone at home - GDMT: *BetaB: continue metoprolol 50mg qam/25mg qpm *RAAS: Entresto BID *Narendra: continue aldactone *SGLT: continue Jardiance *ICD: Address outpatient Carefully monitor I&O, did receive 500 cc NSS in ED -Continue ASA -On repatha as OP #hypothyroidism: Continue Synthroid #chronic pain syndrome: Continue Oxy as needed Full code DVT prophylaxis: Heparin sub-q Admission and Anticipated Discharge Date Admission Date: August 31, 2024 Results & Data Results & Data Vital Signs (Past 12 Hours) Vital Signs Temp Pulse Pulse Resp BP Pulse Ox O2 Del Method 09/03/24 14:53 68 09/03/24 14:28 37.2 C 66 18 90/61 L 96 Nasal Cannula 09/03/24 11:16 37.1 C 76 18 91/57 L 97 Nasal Cannula 09/03/24 09:00 Nasal Cannula 09/03/24 07:30 64 09/03/24 07:21 73 18 98 Nasal Cannula 09/03/24 07:11 37.4 C 73 18 105/70 99 Nasal Cannula O2 Flow Rate 09/03/24 14:53 09/03/24 14:28 2.0 09/03/24 11:16 2.0 09/03/24 09:00 2 09/03/24 07:30 09/03/24 07:21 2 09/03/24 07:11 2.0 Laboratory Results Short CBC 09/03/24 Range/Units 05:24 WBC 11.27 H (4.8-10.8) K/ul Hgb 11.4 L (12.0-16.0) g/dl Hct 34.2 L (37.0-47.0) % Plt Count 285 (130-400) K/uL BMP 09/03/24 05:24 Sodium 137 Potassium 3.9 Chloride 105 Carbon Dioxide 26 BUN 27 H Creatinine 1.53 H Glucose 95 Calcium 8.7 Medications Administered Home Medications Medication Instructions Recorded Confirmed Last Taken albuterol sulfate 90 mcg/actuation 2 puff inhalation Q4H PRN 03/10/22 08/31/24 03/09/22 aerosol inhaler cough,SOB or wheezing aspirin 81 mg tablet,delayed 81 mg PO QAM 03/10/22 08/31/24 08/30/24 release evolocumab 420 mg/3.5 mL 420 mg subcut Q30D 0408/31/24 03/30/23 subcutaneous wearable injector (Repatha Pushtronex) folic acid 1 mg tablet 1 mg PO QAM 03/10/22 08/31/24 08/30/24 levothyroxine 75 mcg tablet 75 mcg PO QAM 03/10/22 08/31/24 08/30/24 (Synthroid) lorazepam 0.5 mg tablet 0.5 mg PO DAILY PRN Anxiety 03/10/22 08/31/24 03/09/22 metoprolol succinate 25 mg 25 - 50 mg PO UD 03/10/22 08/31/24 08/30/24 tablet,extended release 24 hr omeprazole 20 mg capsule,delayed 20 mg PO BID 03/10/22 08/31/24 08/30/24 release pregabalin 75 mg capsule 75 mg PO TID 03/10/22 08/31/24 08/30/24 midodrine 2.5 mg tablet 2.5 mg PO TID@0800,1200,1700 #90 05/06/22 08/31/24 08/30/24 tabs acetaminophen 325 mg tablet 325 mg PO Q6H PRN Fever Or Pain 10/19/22 08/31/24 Unknown methocarbamol 500 mg tablet 500 mg PO TID PRN muscle spasms 10/19/22 08/31/24 04/29/23 ondansetron HCl 4 mg tablet 4 mg PO Q8 PRN Nausea 10/19/22 08/31/24 Unknown spironolactone 25 mg tablet 12.5 mg PO UD 10/19/22 08/31/24 02/03/24 (Aldactone) albuterol sulfate 2.5 mg/3 mL 2.5 mg continuous nebulization QID 06/22/23 08/31/24 02/03/24 (0.083 %) solution for nebulization PRN Wheezing empagliflozin 25 mg tablet 25 mg PO QAM heart failure 01/21/24 08/31/24 08/30/24 (Jardiance) paroxetine HCl 40 mg tablet (Paxil) 40 mg PO HS 01/21/24 08/31/24 08/30/24 sacubitril 24 mg-valsartan 26 mg 1 tab PO BID 01/21/24 08/31/24 08/30/24 tablet (Entresto) oxycodone 5 mg tablet 5 mg PO Q4H PRN pain #15 tabs 08/27/24 08/31/24 Unknown Active Medications Generic Name Dose Route Start Last Admin Trade Name Haroldo PRN Reason Stop Dose Admin Acetaminophen 650 mg 08/31/24 12:48 09/01/24 01:00 Acetaminophen 325 Mg Tab PO 09/30/24 12:47 650 mg Q4H PRN Administration Pain or Fever Aspirin 81 mg 09/01/24 09:00 09/03/24 08:03 Aspirin 81 Mg Ectab PO 10/01/24 08:59 81 mg QAM JUDITH Administration Benzonatate 100 mg 09/01/24 09:25 09/03/24 12:59 Benzonatate 100 Mg Capsule PO 10/01/24 09:24 100 mg TID JUDITH Administration Budesonide 0.5 mg 09/02/24 19:00 09/03/24 07:21 Budesonide 0.5 Mg/2 Ml Vial (Pulmicort) NEB 10/02/24 18:59 Not Given BIDR JUDITH Doxycycline Hyclate 100 mg 08/31/24 12:48 09/03/24 08:09 Doxycycline Hyclate 100 Mg Cap PO 09/07/24 12:47 100 mg BID JUDITH Administration Empagliflozin 25 mg 09/02/24 09:00 09/03/24 08:04 Empagliflozin 25 Mg Tab PO 10/02/24 08:59 25 mg QAM JUDITH Administration Fluticasone Furoate 1 puffs 09/03/24 09:00 09/03/24 08:08 Fluticasone Furoate 100mcg 14 Puffs/Inhaler INH 10/03/24 08:59 1 puffs DAILY JUDITH Administration Folic Acid 1 mg 09/01/24 09:00 09/03/24 08:04 Folic Acid 1 Mg Tab PO 10/01/24 08:59 1 mg QAM JUDITH Administration Formoterol Fumarate 20 mcg 09/02/24 09:45 09/03/24 07:21 Formoterol 20 Mcg/2 Ml Vial NEB 10/02/24 09:44 20 mcg BIDR JUDITH Administration Guaifenesin 600 mg 09/01/24 09:00 09/03/24 08:08 Guaifenesin 600 Mg Tabcr PO 10/01/24 08:59 600 mg Q12 JUDITH Administration Guaifenesin/Dextromethorphan 10 ml 08/31/24 12:48 09/03/24 08:05 Guaifenesin/Dextrom Syrup 200mg/20mg 10ml Udc PO 09/30/24 12:47 10 ml Q6H PRN Administration Cough Heparin Sodium (Porcine) 5,000 units 08/31/24 21:00 09/03/24 08:15 Heparin Sod 5,000 Unit/0.5 Ml Vial SQ 09/30/24 20:59 5,000 units Q12 JUDITH Administration Pantoprazole Sodium 40 mg/ 10 mls @ 5 mls/min 09/01/24 09:30 09/03/24 08:10 Syringe IV 10/01/24 09:29 5 mls/min BID JUDITH Administration Levalbuterol HCl 0.63 mg 08/31/24 13:33 08/31/24 15:53 Levalbuterol Hcl 0.63 Mg/3 Ml Neb NEB 09/30/24 13:32 0.63 mg Q6R PRN Administration Shortness Of Breath Or Wheezing Protocol Levothyroxine Sodium 75 mcg 09/01/24 09:00 09/03/24 08:07 Levothyroxine Sodium 75 Mcg Tablet PO 10/01/24 08:59 75 mcg QAM JUDITH Administration Lorazepam 0.5 mg 08/31/24 12:48 09/02/24 21:33 Lorazepam 0.5 Mg Tab PO 09/30/24 12:47 0.5 mg DAILY PRN Administration Anxiety Metoprolol Succinate 25 mg 08/31/24 21:00 09/02/24 21:17 Metoprolol Succ 25mg Ext Rel Tab PO 09/30/24 20:59 25 mg HS JUDITH Administration Metoprolol Succinate 50 mg 08/31/24 13:25 09/03/24 08:06 Metoprolol Succ 50mg Ext Rel Tab PO 09/30/24 13:24 50 mg QAM JUDITH Administration Midodrine 2.5 mg 08/31/24 12:48 09/03/24 12:54 Midodrine Hcl 2.5 Mg Tab PO 09/30/24 12:47 2.5 mg TID@0800,1200,1700 JUDITH Administration Ondansetron HCl 4 mg 08/31/24 16:17 09/02/24 23:33 Ondansetron Inj 2 Mg/Ml 2 Ml Vial IV 09/30/24 16:16 4 mg Q6H PRN Administration Nausea And Vomiting Oxycodone HCl 5 mg 08/31/24 12:48 09/03/24 12:59 Oxycodone Hcl Ir 5 Mg Tab (Immediate Release) PO 09/14/24 12:47 5 mg Q4H PRN Administration pain Paroxetine HCl 40 mg 08/31/24 21:00 09/02/24 21:18 Paroxetine Hcl 20 Mg Tab PO 09/30/24 20:59 40 mg HS JUDITH Administration Pregabalin 75 mg 08/31/24 14:00 09/03/24 13:00 Pregabalin 75 Mg Cap PO 09/30/24 13:59 75 mg TID JUDITH Administration Sacubitril/Valsartan 1 tab 08/31/24 21:00 09/03/24 08:04 Valsartan/Sacubitril 26/24mg Tab PO 09/30/24 20:59 1 tab BID JUDITH Administration Umeclidinium/Vilanterol 1 puffs 09/02/24 09:45 09/03/24 08:08 Umeclidinium/Vilanterol 62.5/25mcg 7 Puffs/Inhaler INH 10/02/24 09:44 1 puffs DAILY JUDITH Administration
[2024-09-04 05:43] LABS: Hematocrit (blood only) 38.7 % (37.0-47.0); Hemoglobin 12.5 g/dl (12.0-16.0); White Blood Count 9.56 K/ul (4.8-10.8)
[2024-09-04 05:44] LABS: Mean Corpuscular Hemoglobin 32.1 pg (25.0-34.0); Mean Corpuscular Hgb Conc 32.3 g/dL (32.0-36.0); Mean Corpuscular Volume 99.2 fL (80.0-100.0); Mean Platelet Volume 9.6 fL (9.4-12.4); Platelet Count 299 K/uL (130-400); RDW Coefficient of Variation 14.2 % (11.5-14.5); RDW Standard Deviation 51.9 fL (36.4-46.3)
[2024-09-04 05:56] LABS: BUN Creatinine Ratio 19.1 (10-20); Calcium 8.7 mg/dl (8.6-10.3); Creatinine Clr Calc Pharmacy 39.6 ml/min; Phosphorus 2.8 mg/dl (2.5-4.9); Potassium 4.1 mmol/L (3.5-5.1)
--- NOTE | 2024-09-04 11:46 | Hospitalist Progress Note ---
Date of Service September 04, 2024 Assessment & Plan (1) Asthma exacerbation in COPD: (2) Acute on chronic heart failure with reduced ejection fraction and diastolic dysfunction: (3) CKD (chronic kidney disease), stage III: (4) Acute on chronic respiratory failure with hypoxia: (5) Hypertension: (6) HLD (hyperlipidemia): (7) CAD (coronary artery disease): (8) Hypothyroidism: (9) HFrEF (heart failure with reduced ejection fraction): Plan Ms. Brown is a 59-year-old female with a past medical history of acute on chronic diastolic dysfunction with reduced EF35%, CKD stage III, chronic hypoxic respiratory failure COPDchronically on 2 L, anxiety, HLD, [place], CAD, hypothyroidism who was admitted due to SOB and found to have signs of bronchitis on imaging. Patient admitted for acute on chronic hypoxia iso bronchitis and COPD exacerbation. #Acute on chronic hypoxic respiratory failure, 2L continuous baseline #Bronchitis on imaging #COPD exacerbation Biofire negative; CTA with severe emphysema w/ bronchitis and mucous plugging -Follows with pulmonology, previously on Spiriva Currently on 2 L still with shortness of breath, ABG with normal pH, no hypoxia patient requested discontinuing steroids, refusing further steroids at this time Levalbuterol ordered due to sinus tachycardia secondary to nebulizers/steroids Chest PT/hypertonic saline nebs/Robitussin as needed for cough Schedule mucinex -Continue doxycycline Prescribed Trelegy by Dr. Duong 2022 at last visit, but seems to have not returned to follow continue LAMA/LABA/ICS reduced nebs, plan for dispo tomorrow continue pulm toilet as above #UNRULY on CKDIII *resolved Reports that she was going to resume spironolactone, but remembers that it was discontinued at another admission in [facility] D/c spironolactone Hold jardiance/entresto, resume regimen upon d/c Repeat BMP in am encourage po #Chronic heart failure with recovered EF #Ischemic Cardiomyopathy #Prior STEMI s/p bare metal stent in RCA ECHO 65-70%, anterior/right lateral pericardidal effusion, no tamponade, appears chronic per ECHO report Recheck echo, last EF was 45%, 06/2023; stable pericardial effusion noted at that time On Jardiance/Aldactone at home - GDMT: *BetaB: continue metoprolol 50mg qam/25mg qpm *RAAS: Entresto BID upon d/c *Narendra: discontinue aldactone *SGLT: continue Jardiance upon d/c *ICD: Address outpatient Carefully monitor I&O, did receive 500 cc NSS in ED -Continue ASA -On repatha as OP #hypothyroidism: Continue Synthroid #chronic pain syndrome: Continue Oxy as needed Full code DVT prophylaxis: Heparin sub-q Needs OP cards follow up and pulm follow up Admission and Anticipated Discharge Date Admission Date: August 31, 2024 Subjective Reports subjective improvement but significant anxiety about leaving Reports history of prolonged admissions and recounts prior episodes of intubation and renal failure Discussed that there is no looming intubation nor signs of renal failure this admission Reassurance provided, not able to take home today will dispo tomorrow Physical Exam Constitutional: WD/WN, vitals as above Cardiovascular: RRR, no murmur, no edema Skin: no rashes, warm and dry Results & Data Results & Data Vital Signs (Past 12 Hours) Vital Signs Temp Pulse Resp BP Pulse Ox O2 Del Method O2 Flow Rate 09/04/24 11:31 36.6 C 70 18 87/58 L 97 Nasal Cannula 2 09/04/24 09:26 Nasal Cannula 2 09/04/24 07:59 36.8 C 69 18 98/66 L 100 Room Air 09/04/24 07:11 74 17 99 Nasal Cannula 2 09/04/24 03:34 36.8 C 66 18 96/61 L 99 Nasal Cannula Laboratory Results Short CBC 09/04/24 Range/Units 05:14 WBC 9.56 (4.8-10.8) K/ul Hgb 12.5 (12.0-16.0) g/dl Hct 38.7 (37.0-47.0) % Plt Count 299 (130-400) K/uL BMP 09/04/24 05:14 Sodium 138 Potassium 4.1 Chloride 103 Carbon Dioxide 28 BUN 26 H Creatinine 1.36 H Glucose 99 Calcium 8.7 Medications Administered Home Medications Medication Instructions Recorded Confirmed Last Taken albuterol sulfate 90 mcg/actuation 2 puff inhalation Q4H PRN 03/10/22 08/31/24 03/09/22 aerosol inhaler cough,SOB or wheezing aspirin 81 mg tablet,delayed 81 mg PO QAM 0408/31/24 08/30/24 release evolocumab 420 mg/3.5 mL 420 mg subcut Q30D 03/10/22 08/31/24 03/30/23 subcutaneous wearable injector (Repatha Pushtronex) folic acid 1 mg tablet 1 mg PO QAM 03/10/22 08/31/24 08/30/24 levothyroxine 75 mcg tablet 75 mcg PO QAM 03/10/22 08/31/24 08/30/24 (Synthroid) lorazepam 0.5 mg tablet 0.5 mg PO DAILY PRN Anxiety 03/10/22 08/31/24 03/09/22 metoprolol succinate 25 mg 25 - 50 mg PO UD 03/10/22 08/31/24 08/30/24 tablet,extended release 24 hr omeprazole 20 mg capsule,delayed 20 mg PO BID 03/10/22 08/31/24 08/30/24 release pregabalin 75 mg capsule 75 mg PO TID 03/10/22 08/31/24 08/30/24 midodrine 2.5 mg tablet 2.5 mg PO TID@0800,1200,1700 #90 05/06/22 08/31/24 08/30/24 tabs acetaminophen 325 mg tablet 325 mg PO Q6H PRN Fever Or Pain 10/19/22 08/31/24 Unknown methocarbamol 500 mg tablet 500 mg PO TID PRN muscle spasms 10/19/22 08/31/24 04/29/23 ondansetron HCl 4 mg tablet 4 mg PO Q8 PRN Nausea 10/19/22 08/31/24 Unknown spironolactone 25 mg tablet 12.5 mg PO UD 10/19/22 08/31/24 02/03/24 (Aldactone) albuterol sulfate 2.5 mg/3 mL 2.5 mg continuous nebulization QID 06/22/23 08/31/24 02/03/24 (0.083 %) solution for nebulization PRN Wheezing empagliflozin 25 mg tablet 25 mg PO QAM heart failure 01/21/24 08/31/24 08/30/24 (Jardiance) paroxetine HCl 40 mg tablet (Paxil) 40 mg PO HS 01/21/24 08/31/24 08/30/24 sacubitril 24 mg-valsartan 26 mg 1 tab PO BID 01/21/24 08/31/24 08/30/24 tablet (Entresto) oxycodone 5 mg tablet 5 mg PO Q4H PRN pain #15 tabs 08/27/24 08/31/24 Unknown Active Medications Generic Name Dose Route Start Last Admin Trade Name Freq PRN Reason Stop Dose Admin Acetaminophen 650 mg 08/31/24 12:48 09/01/24 01:00 Acetaminophen 325 Mg Tab PO 09/30/24 12:47 650 mg Q4H PRN Administration Pain or Fever Aspirin 81 mg 09/01/24 09:00 09/04/24 08:43 Aspirin 81 Mg Ectab PO 10/01/24 08:59 81 mg QAM JUDITH Administration Benzonatate 100 mg 09/01/24 09:25 09/04/24 08:44 Benzonatate 100 Mg Capsule PO 10/01/24 09:24 100 mg TID JUDITH Administration Doxycycline Hyclate 100 mg 08/31/24 12:48 09/04/24 08:42 Doxycycline Hyclate 100 Mg Cap PO 09/07/24 12:47 100 mg BID JUDITH Administration Empagliflozin 25 mg 09/02/24 09:00 09/03/24 08:04 Empagliflozin 25 Mg Tab PO 10/02/24 08:59 25 mg QAM JUDITH Administration Fluticasone Furoate 1 puffs 09/03/24 09:00 09/04/24 08:41 Fluticasone Furoate 100mcg 14 Puffs/Inhaler INH 10/03/24 08:59 1 puffs DAILY JUDITH Administration Folic Acid 1 mg 09/01/24 09:00 09/04/24 08:42 Folic Acid 1 Mg Tab PO 10/01/24 08:59 1 mg QAM JUDITH Administration Guaifenesin 600 mg 09/01/24 09:00 09/04/24 08:42 Guaifenesin 600 Mg Tabcr PO 10/01/24 08:59 600 mg Q12 JUDITH Administration Guaifenesin/Dextromethorphan 10 ml 08/31/24 12:48 09/04/24 08:43 Guaifenesin/Dextrom Syrup 200mg/20mg 10ml Udc PO 09/30/24 12:47 10 ml Q6H PRN Administration Cough Heparin Sodium (Porcine) 5,000 units 10/09/24 21:00 09/04/24 08:44 Heparin Sod 5,000 Unit/0.5 Ml Vial SQ 09/30/24 20:59 5,000 units Q12 JUDITH Administration Pantoprazole Sodium 40 mg/ 10 mls @ 5 mls/min 09/01/24 09:30 09/04/24 08:42 Syringe IV 10/01/24 09:29 5 mls/min BID JUDITH Administration Levalbuterol HCl 0.63 mg 08/31/24 13:33 08/31/24 15:53 Levalbuterol Hcl 0.63 Mg/3 Ml Neb NEB 09/30/24 13:32 0.63 mg Q6R PRN Administration Shortness Of Breath Or Wheezing Protocol Levothyroxine Sodium 75 mcg 09/01/24 09:00 09/04/24 08:43 Levothyroxine Sodium 75 Mcg Tablet PO 10/01/24 08:59 75 mcg QAM JUDITH Administration Lorazepam 0.5 mg 08/31/24 12:48 09/03/24 22:16 Lorazepam 0.5 Mg Tab PO 09/30/24 12:47 0.5 mg DAILY PRN Administration Anxiety Metoprolol Succinate 25 mg 08/31/24 21:00 09/03/24 22:20 Metoprolol Succ 25mg Ext Rel Tab PO 09/30/24 20:59 25 mg HS JUDITH Administration Metoprolol Succinate 50 mg 08/31/24 13:25 09/04/24 08:43 Metoprolol Succ 50mg Ext Rel Tab PO 09/30/24 13:24 50 mg QAM JUDITH Administration Midodrine 2.5 mg 08/31/24 12:48 09/04/24 11:47 Midodrine Hcl 2.5 Mg Tab PO 09/30/24 12:47 2.5 mg TID@0800,1200,1700 JUDITH Administration Ondansetron HCl 4 mg 08/31/24 16:17 09/02/24 23:33 Ondansetron Inj 2 Mg/Ml 2 Ml Vial IV 09/30/24 16:16 4 mg Q6H PRN Administration Nausea And Vomiting Oxycodone HCl 5 mg 08/31/24 12:48 09/04/24 08:43 Oxycodone Hcl Ir 5 Mg Tab (Immediate Release) PO 09/14/24 12:47 5 mg Q4H PRN Administration pain Paroxetine HCl 40 mg 08/31/24 21:00 09/03/24 22:17 Paroxetine Hcl 20 Mg Tab PO 09/30/24 20:59 40 mg HS JUDITH Administration Pregabalin 75 mg 08/31/24 14:00 09/04/24 08:43 Pregabalin 75 Mg Cap PO 09/30/24 13:59 75 mg TID JUDITH Administration Sacubitril/Valsartan 1 tab 08/31/24 21:00 09/03/24 08:04 Valsartan/Sacubitril 26/24mg Tab PO 09/30/24 20:59 1 tab BID JUDITH Administration Umeclidinium/Vilanterol 1 puffs 09/02/24 09:45 09/04/24 08:42 Umeclidinium/Vilanterol 62.5/25mcg 7 Puffs/Inhaler INH 10/02/24 09:44 1 puffs DAILY JUDITH Administration
[2024-09-05 07:01] LABS: BUN Creatinine Ratio 17.1 (10-20); Calcium 8.4 mg/dl (8.6-10.3); Creatinine Clr Calc Pharmacy 36.9 ml/min; Potassium 4.1 mmol/L (3.5-5.1)
--- NOTE | 2024-09-05 11:08 | Discharge Summary ---
Discharge Summary Date of Service September 05, 2024 Principal Dx & Hospital Course #1 = Principal Diagnosis (1) Asthma exacerbation in COPD: (2) Acute on chronic heart failure with reduced ejection fraction and diastolic dysfunction: (3) CKD (chronic kidney disease), stage III: (4) Acute on chronic respiratory failure with hypoxia: (5) Hypertension: (6) HLD (hyperlipidemia): (7) CAD (coronary artery disease): (8) Hypothyroidism: (9) HFrEF (heart failure with reduced ejection fraction): Plan Ms. Brown is a 59-year-old female with a past medical history of acute on chronic diastolic dysfunction with reduced EF35%, CKD stage III, chronic hypoxic respiratory failure COPDchronically on 2 L, anxiety, HLD, [place], CAD, hypothyroidism who was admitted due to SOB and found to have signs of bronchitis on imaging. Patient admitted for acute on chronic hypoxia iso bronchitis and COPD exacerbation. Patient much improved with inhalers/nebs. Patient with notable anxiety. Patient states she planned to resume spironolactone at home, but then revealed that it was discontinued at another hospital due to renal function. Therefore despite initiation here, once labs uptrended, aldactone discontinued. Home regimen otherwise unchanged. Encouraged patient to follow up with Cardiology given recovered EF and likely modification of current meds. Patient agreed to Wixela inhaler bid and follow up with PCP. Patient remained stable on home o2 for days. Renal function stable compare to op baseline of 1.2-15 #Acute on chronic hypoxic respiratory failure, 2L continuous baseline #Bronchitis on imaging #COPD exacerbation Biofire negative; CTA with severe emphysema w/ bronchitis and mucous plugging -Follows with pulmonology, previously on Spiriva Currently on 2 L still with shortness of breath, ABG with normal pH, no hypoxia patient requested discontinuing steroids, refusing further steroids at this time Levalbuterol ordered due to sinus tachycardia secondary to nebulizers/steroids Chest PT/hypertonic saline nebs/Robitussin as needed for cough Schedule mucinex -coompleted course of abx, steroids discontinued given patient refusal to complete course statng she was told she "cannot have them" Prescribed Sheri by Dr. Duong 2022 at last visit, but seems to have not returned to follow continue LAMA/LABA/ICS--wixela sent to pharmacy #UNRULY on CKDIII *resolved Reports that she was going to resume spironolactone, but remembers that it was discontinued at another admission in [facility] D/c spironolactone jardiance/entresto, resume regimen upon d/c encourage po #Chronic heart failure with recovered EF #Ischemic Cardiomyopathy #Prior STEMI s/p bare metal stent in RCA ECHO 65-70%, anterior/right lateral pericardidal effusion, no tamponade, appears chronic per ECHO report Recheck echo, last EF was 45%, 06/2023; stable pericardial effusion noted at that time On Jardiance/Aldactone at home - GDMT: *BetaB: continue metoprolol 50mg qam/25mg qpm *RAAS: Entresto BID upon d/c *Narendra: discontinue aldactone *SGLT: continue Jardiance upon d/c *ICD: Address outpatient Carefully monitor I&O, did receive 500 cc NSS in ED -Continue ASA -On repatha as OP Needs OP follow up with Cards #hypothyroidism: Continue Synthroid #chronic pain syndrome: Continue Oxy as needed Notes For Next Care Provider Encouraged patient to follow up with Cards OP Encouraged patient to follow up with Pulm OP Medication Changes From Visit Wixela inhaler BID Admission HPI Per Admitting Provider The patient is a 59-year-old female with a past medical history of acute on chronic diastolic dysfunction with reduced EF35%, CKD stage III, COPDchronically on 2 L, anxiety, HLD, [place], CAD, hypothyroidism who reports to the ED on 08/31/2024 with complaints of increasing shortness of breath and wheezing. She reports over the past few days her shortness of breath has been worse. She wears 2 L of oxygen [id number]. She reports her COPD is normally managed at home with albuterol inhaler and nebulizer treatments. She reports following with pulmonology outpatient. She denies any recent viral illness. She denies any sick contacts or recent travel. She denies any nausea/vomiting/diarrhea. She denies chest pain/abdominal pain. On exam, she reports still feeling short of breath despite nebulizer treatment and a dose of dexamethasone. She reports having issues with steroids in the past because it makes it hard for her to sleep. She reports being compliant with home medi cations. Patient does not appear fluid overloaded on exam. On arrival to the ED, labs remarkable for D-dimer 710, anion gap 14, Trope 16.6, BNP 111. Her viral panel was negative Chest x-ray showed advanced emphysematous change with no acute cardiopulmonary abnormality The patient was given an hour-long nebulizer in the ER and 1 dose of IV dexamethasone 10 mg ABG with pH of 7.45, CO2 28, O2 86, bicarb 20 The patient will be admitted for further management Admission Exam Per Admitting Provider Constitutional: WD/WN, vitals as above Eyes: PERRL, conjunctivae normal, anicteric sclerae ENMT: external ear and nose normal, oropharynx normal Neck: trachea midline, no thyromegaly Respiratory: Auscultation: + crackles, + rales and + wheezes Cardiovascular: RRR, no murmur, no edema (Tachycardic in the 130s after nebulizer) Rate/Rhythm: regular rate Gastrointestinal (Abdomen): normal bowel sounds, soft, nontender, no hepatosplenomegaly Musculoskeletal: no cyanosis or clubbing, extremities motor strength 5/5 Skin: no rashes, warm and dry Neurologic: PERRL, EOMI, accommodation nl, no face palsy, no dysarthria Psychiatric: A+Ox3, euthymic affect Lymphatic: no cervical or axillary lymphadenopathy Discharge Exam Constitutional WD/WN, vitals as above Respiratory rhonchi cleared with cough Cardiovascular RRR, no murmur, no edema Skin no rashes, warm and dry Updated Medication List Medication Instructions Recorded Confirmed Type albuterol sulfate 90 mcg/actuation 2 puff inhalation Q4H PRN 03/10/22 08/31/24 History aerosol inhaler cough,SOB or wheezing aspirin 81 mg tablet,delayed 81 mg PO QAM 03/10/22 08/31/24 History release evolocumab 420 mg/3.5 mL 420 mg subcut Q30D 03/10/22 08/31/24 History subcutaneous wearable injector (Repatha Pushtronex) folic acid 1 mg tablet 1 mg PO QAM 03/10/22 08/31/24 History levothyroxine 75 mcg tablet 75 mcg PO QAM 03/10/22 08/31/24 History (Synthroid) lorazepam 0.5 mg tablet 0.5 mg PO DAILY PRN Anxiety 03/10/22 08/31/24 History metoprolol succinate 25 mg 25 - 50 mg PO UD 03/10/22 08/31/24 History tablet,extended release 24 hr omeprazole 20 mg capsule,delayed 20 mg PO BID 03/10/22 08/31/24 History release pregabalin 75 mg capsule 75 mg PO TID 03/10/22 08/31/24 History midodrine 2.5 mg tablet 2.5 mg PO TID@0800,1200,1700 #90 05/06/22 08/31/24 Rx tabs acetaminophen 325 mg tablet 325 mg PO Q6H PRN Fever Or Pain 10/19/22 08/31/24 History methocarbamol 500 mg tablet 500 mg PO TID PRN muscle spasms 10/19/22 08/31/24 History ondansetron HCl 4 mg tablet 4 mg PO Q8 PRN Nausea 10/19/22 08/31/24 History albuterol sulfate 2.5 mg/3 mL 2.5 mg continuous nebulization QID 06/22/23 08/31/24 History (0.083 %) solution for nebulization PRN Wheezing empagliflozin 25 mg tablet 25 mg PO QAM heart failure 01/21/24 08/31/24 History (Jardiance) paroxetine HCl 40 mg tablet (Paxil) 40 mg PO HS 01/21/24 08/31/24 History sacubitril 24 mg-valsartan 26 mg 1 tab PO BID 01/21/24 08/31/24 History tablet (Entresto) fluticasone 250 mcg-salmeterol 50 1 inh inhalation BID #60 ea 09/05/24 Rx mcg/dose blistr powdr for inhalation (Wixela Inhub) guaifenesin 600 mg tablet, 600 mg PO Q12 #30 tabs 09/05/24 Rx extended release 12 hr (Mucinex) oxycodone 5 mg tablet 5 mg PO Q4H PRN pain #15 tabs 09/05/24 Rx Hospital Stay Data Consultations 08/31/24 08:59 ED Decision to Admit Stat Diagnostic Imagining Performed 08/31/24 09:47 CT angio chest PE protocol Stat Pending Results Patient Have Any Pending Studies at Discharge: No Discharge Instructions Given to Patient (Per Discharging Provider) You were admitted for copd exacerbation and bronchitis. You were treated with a course of antibiotics and steroids. You were stable with your oxygen levels. Please start a Wixela inhaler, 1 puff two times a day. Please continue mucinex two times a day to help keep secretions thin while you recover from bronchitis. Please follow up with your [employer] as soon as able Total Time Total Time Spent Total Time Spent (In Minutes): 45
[2024-09-05] MEDS: LORazepam 0.5 MG TAB PO STA (15:03)
--- NOTE | 2024-09-05 19:37 | Communication Note ---
Date of Service: September 05, 2024 Discharge cancelled as patient's did not bring oxygen and patient with issue with home oxygen suppler. Will need to repeat 2 step in am and resecure home oxygen
[2024-09-05] MEDS: PANTOprazole 40 MG TAB PO SCH (20:27)
[2024-09-06] MEDS ORDERED: PANTOprazole 40 MG in SYRINGE BID IV SCH (09:00)
[2024-09-06 11:14] VITALS: TEMP 98.4; O2SAT 97
--- NOTE | 2024-09-06 11:44 | Hospitalist Progress Note ---
Date of Service September 06, 2024 Assessment & Plan (1) Asthma exacerbation in COPD: (2) Acute on chronic heart failure with reduced ejection fraction and diastolic dysfunction: (3) CKD (chronic kidney disease), stage III: (4) Acute on chronic respiratory failure with hypoxia: (5) Hypertension: (6) HLD (hyperlipidemia): (7) CAD (coronary artery disease): (8) Hypothyroidism: (9) HFrEF (heart failure with reduced ejection fraction): Plan Ms. Brown is a 59-year-old female with a past medical history of acute on chronic diastolic dysfunction with reduced EF35%, CKD stage III, chronic hypoxic respiratory failure COPDchronically on 2 L, anxiety, HLD, [place], CAD, hypothyroidism who was admitted due to SOB and found to have signs of bronchitis on imaging. Patient admitted for acute on chronic hypoxia iso bronchitis and COPD exacerbation. Patient much improved with inhalers/nebs. Patient with notable anxiety. Patient states she planned to resume spironolactone at home, but then revealed that it was discontinued at another hospital due to renal function. Therefore despite initiation here, once labs uptrended, aldactone discontinued. Home regimen otherwise unchanged. Encouraged patient to follow up with Cardiology given recovered EF and likely modification of current meds. Patient agreed to Wixela inhaler bid and follow up with PCP. Patient remained stable on home o2 for days. Renal function stable compare to op baseline of 1.2-15 Patient's failed to bring in oxygen to pick patient up. Given patient has open balance with current o2 supplier, unable to offer O2 Patient had stated she was unhappy with oxygen supplier, and 2 step repeat ordered. Respiratory notes that patient does not require exertional oxygen. Discussed with patient indepth however, patient redacts comments about dissatifaction with oxygen supplier and states she "never wanted anything changed in the first place" and "doesnt understand why [we] didnt give her a tank to go home" when her forgot hers. Attempted to explain the insurance concerns, however, patient was not receptive to the outstanding balance owed and continued to state that "we" shouldve given her a tank. Patient to discharge today. 2step normal, no o2 requirement Please see d/c summary from day prior. #Acute on chronic hypoxic respiratory failure, 2L continuous baseline repeat 2 step w/o O2 requirment #Bronchitis on imaging #COPD exacerbation Biofire negative; CTA with severe emphysema w/ bronchitis and mucous plugging -Follows with pulmonology, previously on Spiriva Currently on 2 L still with shortness of breath, ABG with normal pH, no hypox ia patient requested discontinuing steroids, refusing further steroids at this time Levalbuterol ordered due to sinus tachycardia secondary to nebulizers/steroids Chest PT/hypertonic saline nebs/Robitussin as needed for cough Schedule mucinex -coompleted course of abx, steroids discontinued given patient refusal to complete course stating she was told she "cannot have them" Prescribed Trelegy by Dr. Duong 2022 at last visit, but seems to have not returned to follow continue LAMA/LABA/ICS--wixela sent to pharmacy #UNRULY on CKDIII *resolved Reports that she was going to resume spironolactone, but remembers that it was discontinued at another admission in [facility] D/c spironolactone Jardiance/Entresto, resume regimen upon d/c encourage po #Chronic heart failure with recovered EF #Ischemic Cardiomyopathy #Prior STEMI s/p bare metal stent in RCA ECHO 65-70%, anterior/right lateral pericardial effusion, no tamponade, appears chronic per ECHO report Recheck echo, last EF was 45%, 06/2023; stable pericardial effusion noted at that time On Jardiance/Aldactone at home - GDMT: *BetaB: continue metoprolol 50mg qam/25mg qpm *RAAS: Entresto BID upon d/c *Narendra: discontinue Aldactone *SGLT: continue Jardiance upon d/c *ICD: Address outpatient Carefully monitor I&O, did receive 500 cc NSS in ED -Continue ASA -On repatha as OP Needs OP follow up with Cards #hypothyroidism: Continue Synthroid #chronic pain syndrome: Continue Oxy as needed Admission and Anticipated Discharge Date Admission Date: August 31, 2024 Subjective Please see D/C summary from day prior, no changes to discharge plan NAEO Patient ambulated with out issues, on room air with 2 step Physical Exam Constitutional: WD/WN, vitals as above Cardiovascular: RRR, no murmur, no edema Skin: no rashes, warm and dry Results & Data Results & Data Vital Signs (Past 12 Hours) Vital Signs Temp Pulse Pulse Pulse Resp Resp Resp 09/06/24 11:12 36.9 C 61 17 09/06/24 09:58 80 76 18 18 09/06/24 08:54 09/06/24 08:00 09/06/24 07:27 36.6 C 63 17 BP Pulse Ox Pulse Ox Pulse Ox O2 Del Method O2 Flow Rate 09/06/24 11:12 86/56 L 97 Nasal Cannula 2 09/06/24 09:58 91 94 09/06/24 08:54 92/54 L 09/06/24 08:00 Nasal Cannula 2 09/06/24 07:27 98/68 L 97 Nasal Cannula 2 Medications Administered Home Medications Medication Instructions Recorded Confirmed Last Taken albuterol sulfate 90 mcg/actuation 2 puff inhalation Q4H PRN 03/10/22 08/31/24 03/09/22 aerosol inhaler cough,SOB or wheezing aspirin 81 mg tablet,delayed 81 mg PO QAM 03/10/22 08/31/24 08/30/24 release evolocumab 420 mg/3.5 mL 420 mg subcut Q30D 03/10/22 08/31/24 03/30/23 subcutaneous wearable injector (Repatha Pushtronex) folic acid 1 mg tablet 1 mg PO QAM 03/10/22 08/31/24 08/30/24 levothyroxine 75 mcg tablet 75 mcg PO QAM 03/10/22 08/31/24 08/30/24 (Synthroid) lorazepam 0.5 mg tablet 0.5 mg PO DAILY PRN Anxiety 03/10/22 08/31/24 03/09/22 metoprolol succinate 25 mg 25 - 50 mg PO UD 03/10/22 08/31/24 08/30/24 tablet,extended release 24 hr omeprazole 20 mg capsule,delayed 20 mg PO BID 03/10/22 08/31/24 08/30/24 release pregabalin 75 mg capsule 75 mg PO TID 03/10/22 08/31/24 08/30/24 midodrine 2.5 mg tablet 2.5 mg PO TID@0800,1200,1700 #90 05/06/22 08/31/24 08/30/24 tabs acetaminophen 325 mg tablet 325 mg PO Q6H PRN Fever Or Pain 10/19/22 08/31/24 Unknown methocarbamol 500 mg tablet 500 mg PO TID PRN muscle spasms 10/19/22 08/31/24 04/29/23 ondansetron HCl 4 mg tablet 4 mg PO Q8 PRN Nausea 10/19/22 08/31/24 Unknown albuterol sulfate 2.5 mg/3 mL 2.5 mg continuous nebulization QID 06/22/23 08/31/24 02/03/24 (0.083 %) solution for nebulization PRN Wheezing empagliflozin 25 mg tablet 25 mg PO QAM heart failure 01/21/24 08/31/24 08/30/24 (Jardiance) paroxetine HCl 40 mg tablet (Paxil) 40 mg PO HS 01/21/24 08/31/24 08/30/24 sacubitril 24 mg-valsartan 26 mg 1 tab PO BID 01/21/24 08/31/24 08/30/24 tablet (Entresto) fluticasone 250 mcg-salmeterol 50 1 inh inhalation BID #60 ea 09/05/24 Unknown mcg/dose blistr powdr for inhalation (Wixela Inhub) guaifenesin 600 mg tablet, 600 mg PO Q12 #30 tabs 09/05/24 Unknown extended release 12 hr (Mucinex) oxycodone 5 mg tablet 5 mg PO Q4H PRN pain #15 tabs 09/05/24 Unknown Active Medications Generic Name Dose Route Start Last Admin Trade Name Freq PRN Reason Stop Dose Admin Acetaminophen 650 mg 08/31/24 12:48 09/01/24 01:00 Acetaminophen 325 Mg Tab PO 09/30/24 12:47 650 mg Q4H PRN Administration Pain or Fever Aspirin 81 mg 09/01/24 09:00 09/06/24 08:41 Aspirin 81 Mg Ectab PO 10/01/24 08:59 81 mg QAM JUDITH Administration Benzonatate 100 mg 09/01/24 09:25 09/06/24 08:54 Benzonatate 100 Mg Capsule PO 10/01/24 09:24 100 mg TID JUDITH Administration Doxycycline Hyclate 100 mg 08/31/24 12:48 09/06/24 08:41 Doxycycline Hyclate 100 Mg Cap PO 09/07/24 12:47 100 mg BID JUDITH Administration Empagliflozin 25 mg 09/02/24 09:00 09/03/24 08:04 Empagliflozin 25 Mg Tab PO 10/02/24 08:59 25 mg QAM JUDITH Administration Fluticasone Furoate 1 puffs 09/03/24 09:00 09/06/24 08:44 Fluticasone Furoate 100mcg 14 Puffs/Inhaler INH 10/03/24 08:59 1 puffs DAILY JUDITH Administration Folic Acid 1 mg 09/01/24 09:00 09/06/24 08:43 Folic Acid 1 Mg Tab PO 10/01/24 08:59 1 mg QAM JUDITH Administration Guaifenesin 600 mg 09/01/24 09:00 09/06/24 08:42 Guaifenesin 600 Mg Tabcr PO 10/01/24 08:59 600 mg Q12 JUDITH Administration Guaifenesin/Dextromethorphan 10 ml 08/31/24 12:48 09/05/24 08:11 Guaifenesin/Dextrom Syrup 200mg/20mg 10ml Udc PO 09/30/24 12:47 10 ml Q6H PRN Administration Cough Heparin Sodium (Porcine) 5,000 units 08/31/24 21:00 09/06/24 08:54 Heparin Sod 5,000 Unit/0.5 Ml Vial SQ 09/30/24 20:59 5,000 units Q12 JUDITH Administration Levalbuterol HCl 0.63 mg 08/31/24 13:33 08/31/24 15:53 Levalbuterol Hcl 0.63 Mg/3 Ml Neb NEB 09/30/24 13:32 0.63 mg Q6R PRN Administration Shortness Of Breath Or Wheezing Protocol Levothyroxine Sodium 75 mcg 09/01/24 09:00 09/06/24 08:43 Levothyroxine Sodium 75 Mcg Tablet PO 10/01/24 08:59 75 mcg QAM JUDITH Administration Lorazepam 0.5 mg 08/31/24 12:48 09/04/24 22:17 Lorazepam 0.5 Mg Tab PO 09/30/24 12:47 0.5 mg DAILY PRN Administration Anxiety Metoprolol Succinate 25 mg 08/31/24 21:00 09/05/24 20:26 Metoprolol Succ 25mg Ext Rel Tab PO 09/30/24 20:59 Not Given HS JUDITH Metoprolol Succinate 50 mg 08/31/24 13:25 09/06/24 10:28 Metoprolol Succ 50mg Ext Rel Tab PO 09/30/24 13:24 Not Given QAM JUDITH Midodrine 2.5 mg 08/31/24 12:48 09/06/24 11:55 Midodrine Hcl 2.5 Mg Tab PO 09/30/24 12:47 2.5 mg TID@0800,1200,1700 JUDITH Administration Ondansetron HCl 4 mg 08/31/24 16:17 09/02/24 23:33 Ondansetron Inj 2 Mg/Ml 2 Ml Vial IV 09/30/24 16:16 4 mg Q6H PRN Administration Nausea And Vomiting Oxycodone HCl 5 mg 08/31/24 12:48 09/06/24 08:53 Oxycodone Hcl Ir 5 Mg Tab (Immediate Release) PO 09/14/24 12:47 5 mg Q4H PRN Administration pain Pantoprazole Sodium 40 mg 09/05/24 21:00 09/06/24 08:42 Pantoprazole 40 Mg Tab PO 10/05/24 20:59 40 mg BID JUDITH Administration Paroxetine HCl 40 mg 08/31/24 21:00 09/05/24 20:27 Paroxetine Hcl 20 Mg Tab PO 09/30/24 20:59 40 mg HS JUDITH Administration Pregabalin 75 mg 08/31/24 14:00 09/06/24 08:53 Pregabalin 75 Mg Cap PO 09/30/24 13:59 75 mg TID JUDITH Administration Sacubitril/Valsartan 1 tab 08/31/24 21:00 09/03/24 08:04 Valsartan/Sacubitril 26/24mg Tab PO 09/30/24 20:59 1 tab BID JUDITH Administration Umeclidinium/Vilanterol 1 puffs 09/02/24 09:45 09/06/24 08:44 Umeclidinium/Vilanterol 62.5/25mcg 7 Puffs/Inhaler INH 10/02/24 09:44 1 puffs DAILY JUDITH Administration
[2024-09-06 14:21] VITALS: PULSE 69; RESP 19
[2024-09-06 15:48] VITALS: BP 91/58
== END 2024-09-06 16:03 | disposition home or self-care (01) | DRG 189 ==
LOC: ED 07:24 → SUATTDRO 09:03 → 2S 09:03

== ENCOUNTER 2024-09-18 23:41 | Inpatient (IN) ==
--- OUTSIDE RECORDS SUMMARY | 2024-09-18 23:48 | External Medical Summary | Summary of Care ---
Author Name Unknown Organization [facility] Address [address] [place] [address] Phone [phone] Care Team Providers Care Seam Closer Name Role Phone Ludy Jacobs Zeina LY Primary Care Provider Encounter Details Date Type Department Care Team (Latest Contact Info) Description 09/09/2024 Medication Management [facility] C[facility] [address] [place] [address] Chelsea Goetz, [facility] [address] [place] [address] Referred for medication therapy management* Allergies Active Allergy Reactions Criticality Noted Date Comments Adhesive Tape 10/12/2019 Other reaction(s): BANDAIDS SKIN ABRASION Colchicine 05/08/2022 N/v/d Rosuvastatin 04/02/2021 Went into kidney failure Demerol 08/11/2012 Depression Ibuprofen 04/02/2021 Meperidine And Related 09/28/2002 depression Nsaids 04/02/2021 Sulfa Antibiotics Rash 07/09/2001 Ketorolac Tromethamine Medium 04/04/2021 documented as of this encounter (statuses as of 09/09/2024) Medications Medication Sig Dispensed Refills Start Date End Date Status VALVED HOLDING CHAMBER DEVIIndications:COPD with emphysema (HCC) to be used with inhalers as instructed 1 Device 2 10/12/2012 Active Additional Information Patient not taking.Informant: Transferring Facility Documents, Reported on 02/02/2024 oxygen GAS 2 LPM via NC during hours of sleep 1 Each 03/16/2018 Active Additional Information Patient taking differently: 2 L/min(Oxygen), 2 LPM via NC all day and during hours, Informant: Transferring Facility Documents, Reported on 12/24/2022 Nebulizers (NEBULIZER COMPRESSOR) MISC Inhale via nebulizer. Along with supply . Use as directed. Dx code- J44.9 and J43.9 1 Each 10/05/2018 Active aspirin enteric coated 81 MG TBEC Take 1 Tablet by mouth every morning. Active Acetaminophen 325 MG Oral Tablet (Tylenol) Take 1 Tablet by mouth every 6 hours as needed. Active Nebulizer DeviceIndications:CO PD, group C, 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 ([facility]),Chronic hypoxemic respiratory failure ([facility]) Use with nebulized medications 1 Each 07/24/2022 Active Full Kit Nebulizer SetIndications:COPD, group C, 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 ([facility]),Chronic hypoxemic respiratory failure ([facility]) Use with nebulizer 1 Each 07/24/2022 Active Syringe 25G X 1-1/2" 3 ML Use for intramuscular B12 injection 1 Each 11 10/02/2022 Active Albuterol Sulfate (2.5 MG/3ML) 0.083% Inhalation Nebulization Solution (Proventil)Indicatio ns:COPD, group D, 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 ([facility]) Inhale 1 Vial via nebulizer 4 times a day as needed for Wheezing. Use in place of rescue inhaler. 360 mL 2 12/24/2022 Active Midodrine HCl 5 MG Oral Tablet (Proamatine)Indicati ons:Chronic diastolic congestive heart failure (HCC) Take 1 Tablet by mouth in the morning and 1 Tablet at noon and 1 Tablet before bedtime. 270 Tablet 3 07/29/2023 Active Empagliflozin 10 MG Oral Tablet (Jardiance)Indicatio ns:Chronic combined systolic and diastolic congestive heart failure (HCC) Take 1 Tablet by mouth in the morning. 90 Tablet 3 12/15/2023 Active Entresto 24-26 MG Oral Tablet (sacubitril-valsarta n 24-26 mg per tab)Indications:Reference Test Clerk darius combined systolic and diastolic congestive heart failure (HCC),HFrEF (heart failure with reduced ejection fraction) ([facility]) Take 1 Tablet by mouth in the morning and 1 Tablet before bedtime. 180 Tablet 3 12/15/2023 Active Ondansetron HCl 4 MG Oral Tablet (Zofran)Indications: Nausea TAKE (1) TABLET BY MOUTH EVERY EIGHT HOURS NEEDED FOR NAUSEA. Strength: 4 mg 30 Tablet 01/14/2024 Active Omeprazole 20 MG Oral Capsule Delayed Release (PriLOSEC)Indication s:Abdominal pain, epigastric TAKE 1 CAPSULE IN THE MORNING AND 1 CAPSULE BEFORE BEDTIME 60 Capsule 5 03/17/2024 Active Metoprolol Succinate ER 50 MG Oral Tablet Extended Release 24 Hour (toPROL XL)Indications:Old NC (myocardial infarction) TAKE 1 AND 1/2 TABLETS BY MOUTH EVERY MORNING 135 Tablet 04/07/2024 Active Methocarbamol 500 MG Oral Tablet (Robamol)Indications :Chronic pain syndrome TAKE 1 TABLET IN THE MORNING, 1 AT NOON, 1 IN THE EVENING AND 1 BEFORE BEDTIME. 120 Tablet 3 04/19/2024 Active Folic Acid 1 MG Oral TabletIndications:Fo lic acid deficiency Take 1 Tablet by mouth in the morning. In the morning.. 100 Tablet 3 04/28/2024 Active Synthroid 75 MCG Oral TabletIndications:Ac quired hypothyroidism TAKE 1 TABLET BY MOUTH DAILY (AT LEAST 30 MINUTES PRIOR TO BREAKFAST OR OTHER MEDS). 90 Tablet 3 05/03/2024 Active Spironolactone 25 MG Oral Tablet (Aldactone)Indicatio ns:Chronic combined systolic and diastolic congestive heart failure (HCC) Take 0.5 Tablets by mouth in the morning. 45 Tablet 3 05/04/2024 Active Repatha SureClick 140 MG/ML Subcutaneous Solution Auto-injector (evolocumab) Inject 140 mg (1 pen) under the skin every 14 days. Remove from refrigerator 30 minutes prior to injection. 6 mL 3 05/04/2024 Active PARoxetine HCl 40 MG Oral Tablet (pAXil) Take 1 Tablet by mouth in the morning. 30 Tablet 3 05/13/2024 Active Pregabalin 75 MG Oral Capsule (Lyrica)Indications: Complex regional pain syndrome type 1 of left upper extremity Take 1 Capsule by mouth in the morning and 1 Capsule at noon and 1 Capsule before bedtime. 90 Capsule 5 06/20/2024 Active Albuterol Sulfate HFA 108 (90 Base) MCG/ACT Inhalation Aerosol SolutionIndications: COPD, group C, 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 ([facility]) Inhale 2 Puffs by mouth every 4 hrs as needed for Cough, Shortness of Breath or Withdrawal symptoms. 54 g 1 07/11/2024 Active LORazepam 0.5 MG Oral Tablet (Ativan) Take 1 Tablet by mouth daily as needed for Anxiety. Do not start before August 12, 2024. 30 Tablet 2 08/12/2024 Active Ipratropium-Albutero l 0.5-2.5 (3) MG/3ML Inhalation Solution (Duoneb) INHALE 3 ML VIA NEBULIZER 4 TIMES DAILY NEEDED FOR COUGH, SHORTNESS OF BREATH OR WHEEZING. USE IN PLACE OF RESCUE INHALER. 360 mL 5 08/11/2024 Active Hospital, Clinic, or Other Facility Administered Medication Ordered Dose Route Frequency Start Date End Date Status Albuterol Sulfate (Proventil) (2.5 MG/3ML) 0.083% inhalation solution 2.5 mgIndications:COPD, group D, 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 ([facility]) 2.5 mg NEBULIZER ONCE PRN 04/28/2024 04/28/2025 Acti ve documented as of this encounter (statuses as of 09/09/2024) Active Problems Problem Noted Date Diagnosed Date Acute low back pain with left-sided sciatica 04/2024 Malodorous urine 04/28/2024 Pain of right lower leg 04/28/2024 Hypertensive heart and kidne y disease with chronic systolic congestive heart failure and stage 3a chronic kidney disease 04/28/2024 Diverticulosis of large intestine without hemorr kervin 01/27/2024 Hepatic steatosis 01/27/2024 Atherosclerosis of aorta 01/27/2024 [place] 01/27/2024 Moderate mitral regurgitation 01/27/2024 Benign hypertensive heart an d CKD, stage 3 (GFR 30-59), w CHF 01/27/2024 Systolic congestive heart failure 01/14/2024 HTN, goal below 140/90 07/02/2023 COPD, group D, 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 05/04 Overview: Per COPD GOLD Classification Complex regional pain syndrome of left upper ext remity 03/23/2023 MDD (major depressive disorder), recurrent episo de, mild 01/21/2023 Last Assessment & Plan: stable meds noted above Atherosclerotic heart diseas e of [place] coronary artery with other forms of angina pectoris 11/12/2022 Chronic hypoxemic respiratory failure 10/30/2022 Last Assessment & Plan: O2 stable on 2 L PTSD (post-traumatic stress disorder) 10/30/2022 RSD (reflex sympathetic dystrophy) 10/30/2022 Neuropathic pain 07/02/2022 Last Assessment & Plan: Continue lyrica AC joint arthropathy 06/11/2022 Tendinosis of rotator cuff 06/11/2022 Chronic pain 03/04/2022 Last Assessment & Plan: Appointment scheduled with [facility] pain [facility] [place] 07/02. Statin intolerance 01/24/2022 Osteopenia 01/08/2022 LYNDON (generalized anxiety disorder) 10/07/2021 Last Assessment & Plan: Continue paxil Chronic combined systolic an d diastolic congestive heart failure 09/22/2019 Last Assessment & Plan: Last EF 35-39% Follow up with cardiology today Lung nodules 08/19/2019 Last Assessment & Plan: Pt made aware. Will d/w PCP for repeat CT Centrilobular emphysema 08/19/2019 Overview: 09/06/19 In Check dial performed to assess inhaler technique:Name of inhaler Albuterol Pass: Yes at 55L/min and Trelegy Ellipta Pass: Yes at 45L/min. Encouraged to take nice slow deep breaths and encouraged to use aero chamber. Test performed by Flex [employer] ANALYST CPFT Circadian rhythm sleep disorder 09/17/2018 Nocturnal hypoxemia due to emphysema 07/30/2018 Adjustment disorder with mixed anxiety and depre ssed mood 07/04/2018 TERMINATED MEDICATION USAGE AGREEMENT 06/03/2018 Dupuytren's contracture of left hand 02/01/2018 Mixed incontinence urge and stress (male)(female ) 03/20/2017 Vitamin D deficiency 03/03/2016 Overview: March 2015 = 13. Took high dose replacement. Due to repeat. Coronary artery disease invo lving [place] coronary artery of [place] heart without angina pectoris 11/12/2015 Last Assessment & Plan: Stable no angina -continue ASA, metoprolol xl, repatha. Can't tolerate delgado d/t low bp Dyslipidemia, goal LDL below 70 11/12/2015 Sicca syndrome 12/29/2014 Acquired hypothyroidism 12/29/2014 Last Assessment & Plan: Continue synthroid Old NC (myocardial infarction) 11/01/2013 Last Assessment & Plan: Continue metoprolol Cerebellar hemangioma 12/15/2012 Overview: MRI 2008 Generalized osteoarthritis 09/14/2012 S/P angioplasty with stent 02/19/2011 Gastroparesis 04/13/2009 History of peptic ulcer disease 03/05/2009 Overview: ICD-10 update of inactive term ADVANCE DIRECTIVE INFORMATION 12/02/2008 Overview: No, Advance Directive brochure offered , patient declined. Tobacco use disorder 12/02/2008 Last Assessment & Plan: No interest in cessation DDD (degenerative disc disease), cervical Endometriosis Irritable bowel syndrome with constipation documented as of this encounter (statuses as of 09/09/2024) Resolved Problems Problem Noted Date Diagnosed Date Resolved Date Chronic respiratory failure, unsp w hypoxia or hypercapnia 01/14/2024 01/27/2024 Major depressive disorder, r ecurrent episode, moderate 01/14/2024 01/27/2024 Vomiting and diarrhea 01/22/20232023 Last Assessment & Plan: had similar sx. Likely viral -zofran helping. Now keeping down fluids COPD, group C, 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 11/03/2022 05/07/2023 Overview: Per COPD GOLD Classification Last Assessment & Plan: COPD "RED FLAG" COPD symptoms: o Increased shortness of breath at rest ("I struggle to breathe even when watching TV", "I have to wear or turn up my oxygen just when I'm sitting on the couch") Medication Regimen o Albuterol neb, flovent, stiolto Exacerbation Mgt: o No exacerbations in the past 3 months o Recent ER visit due to exacerbation (within 3 months) o Rescue Kit in place in Medication List: Yes. o Used rescue kit in the past month: no o Required IM or IV steroids (Solumedrol) since last visit: No Very wheezy, but O2 ok. Continue nebs HFrEF (heart failure with re duced ejection fraction) 10/30/2022 01/27/2024 Overview: Duplicated on pl Last Assessment & Plan: Euvolemic today -continue aldactone (may hold today with low bp and vomiting earlier this week) Hypotension 05/30/2022 01/27/2024 Last Assessment & Plan: Low BP today. Asymptomatic. -continue midodrine -hold aldactone if still low -recheck bp tomorrow and call with results. Will call sooner if symptomatic Hypokalemia 05/30/2022 01/27/2024 Last Assessment & Plan: Start KCL eliixr 20 Allison daily Check BMP in 1-2 weeks Acute systolic heart failure 04/11/2022 05/09/2022 Pericardial effusion 01/24/2022 024 Last Assessment & Plan: Was on colchicine d/c'ed due to side effects. Follow up with cardiology today Stage 3a chronic kidney disease 01/14/2022 01/21/2023 Major depressive disorder with single episode 10/07/20 21 01/27/2024 Chronic kidney disease, stage 3b 09/30/2021 01/14/2022 Overview: Per CKD protocol Gastro-esophageal reflux dis ease without esophagitis 04/08/2021 10/08/2021 UNRULY (acute kidney injury) 03/28/20211 Thrush 09/13/2019 10/08/2021 COPD exacerbation 08/19/2019 11/25/2023 Overview: 09/06/19 In Check dial performed to assess inhaler technique:Name of inhaler Albuterol Pass: Yes at 55L/min and Trelegy Ellipta Pass: Yes at 45L/min. Encouraged to take nice slow deep breaths and encouraged to use aero chamber. Test performed by Flex [employer] ANALYST CPFT Last Assessment & Plan: O2 stable on 2L continuous. Continue respimat, flovent Has neb/meds for prn use Enterovirus infection 08/19/20192019 COPD with exacerbation 06/16/201912/29 Overview: 09/06/19 In Check dial performed to assess inhaler technique:Name of inhaler Albuterol Pass: Yes at 55L/min and Trelegy Ellipta Pass: Yes at 45L/min. Encouraged to take nice slow deep breaths and encouraged to use aero chamber. Test performed by Flex CAR CPFT COPD, group B, 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 05/02/2019 08/19/2019 Overview: Per COPD GOLD Classification Ganglion 04/04/2019 04/04/2019 Prediabetes 12/06/2018 03/02/2019 Overview: Per Prediabetes protocol #1 History of pneumothorax 07/30/201809/23 Pain in mouth 07/30/2018 10/08/2021 Visual hallucinations 07/30/20182017 History of smoking 25-50 pack years 07/30/2018 10/07/2021 Emphysema with chronic bronchitis 07/30/2018 02/22/2019 MEDICATION USE AGREEMENT 03/20/201710/2018 Vasovagal syncope 11/12/2015 10/08/2021 Medical home patient encounter 10/15/2012 01/27/2024 Overview: ICD-10 update of inactive term COPD, moderate 04/07/2012 10/05/2012 Overview: PFT 03/2008 [facility] COPD, SEVERE 04/07/2012 05/04/2019 Overview: PER COPD PROTOCOL #24. PFT 03/2008 [facility] LAST PFT -06/07/12 Gastroesophageal reflux dise ase with esophagitis 04/30/2009 01/14/2022 Overview: mild COPD with emphysema 10/05/20 12 documented as of this encounter (statuses as of 09/09/2024) Immunizations Name Administration Dates Next Due COVID-19 mRNA, LNP-s, No Pre serve, 2-Dose Series (LogLogic) 09/26/2022,11/18/2021,04/04/2021,02/28 COVID-19, MRNA-LNP, 23-24, P F, 30 MCG/0.3 mL, 12 YRS AND ABOVE, IM ([facility] 10/21/2023 Covid-19, Mrna, Lnp-s, Pf, B ivalent, 30 Mcg, IM, 12 yrs and above (LogLogic) 09/26/2022 HEPATITIS B VACCINE, RECOMB, 20 MCG/ML, ADULT (HEPLISAV-B) 03/02/2023,01/29/2023 PPD 04/04/2022,01/04/2009 Pneumococcal Conjugate Vacc, 13 Valent (Prevnar) 12/14/2014 Pneumococcal Polysaccharide PPV23 (Pneumovax) 12/14/2014,10/11/2008 RSV Vac., Bivalent, Perfusio n F, Pf,0.5 Ml (Abrysvo) 08/02/2024 Seasonal Influenza Vac., MDV , IM, 0.5 mL (Fluzone) 08/29/2014,11/01/2013,12/07/2012,09/14(Deferred: Patient Refused - states was sick, wants to discuss with Dr. Mcdermott),08/19/2011,09/13/2010, 008 Seasonal Influenza, PF, 6 M & above, IM , (FluLaval or Fluzone) 10/21/2023,09/24/2022,09/04/2021,08/03,08/24/2019,10/05/2018,02/01/2018 ,09/02/2016,08/29/2014,12/07/2012,07/25,09/13/2010,12/11/2009, 8 Seasonal Influenza, Quadriva lent, No Preserve, IM 08/24/2019,09/02/2016,10/10/2015 Seasonal Influenza, Trivalen t, (IIV3), PF, (Fluzone) 08/02/2024 TDAP (age 10 and older)(Boostrix) 01/09/2021 TDAP, Age 7 and older, IM (Adacel) 01/04/2009 Zoster Vaccine Recombinant (Shingrix) 01/09/2021 documented as of this encounter Social History Tobacco Use Types Packs/Day Years Used Date Smoking Tobacco: Every Day Cigarettes 0.5 45 Smokeless Tobacco: Never Alcohol Use Standard Drinks/Week Comments Yes 0 (1 standard drink = 0.6 oz pur e alcohol) Very rarely AUDIT-C Answer Date Recorded Q1: How often do you have a drink containing alc ohol? Monthly or less 12/31/2022 Q2: How many drinks containi ng alcohol do you have on a typical day when you are drinking? 1 or 2 12/31/2022 Q3: How often do you have si x or more drinks on one occasion? Never 12/31/2022 PHQ-2 Answer Date Recorded PHQ Adult Total Score 0 07/02/2023 Hunger Vital Sign Answer Date Recorded Within the past 12 months, y ou worried that your food would run out before you got the money to buy more. Never true 01/30/20 23 Within the past 12 months, t he food you bought just didn't last and you didn't have money to get more. Never true 01/29/2023 Sex and Gender Information Value Date Recorded Sex Assigned at Female 03/10/2019 2:38 PM EDT Gender Identity Female 03/10/2019 2:38 PM EDT Sexual Orientation Straight 03/10/2019 2: 38 PM EDT Job Start Date Occupation Industry Not on file Not on file Not on file documented as of this encounter Functional Status Functional Status Response Date of Assess ment Are you deaf or do you have serious difficulty h earing? No 03/28/2021 Are you blind or do you have serious difficulty seeing, even when wearing glasses? No 03/28/2021 Do you have serious difficul ty walking or climbing stairs? (5 years old or older) Yes 03/28/2021 Do you have difficulty dress ing or bathing? (5 years old or older) Yes 03/28/2021 Because of a physical, menta l, or emotional condition, do you have difficulty doing errands alone such as visiting a doctor s office or shopping? (15 years old or older) Yes 03/28/20 Cognitive Status Response Date of Assessm ent Because of a physical, menta l, or emotional condition, do you have serious difficulty concentrating, remembering, or making decisions? (5 years old or older) No 03/28/2021 documented as of this encounter Progress Notes * Rachael Weaver PHARM Tech - 09/09/2024 8:13 PM EDT Marisa Santiago is a 59 year old female. TMR Interventions TMR Patient Education - Safe Medication Use (Opioid Therapy): OXYCODONE TAB 5MG Incomplete Encounter MTPs No medication therapy recommendations to display Complete Encounter MTPs Referred for medication therapy management Rationale: Patient Education - Needs Education - Safety Recommendation: Provide Education Status: No Longer Relevant Note: TMR for safe use of opioid therapy. Patient is not taking an opioid. Assessment & Plan Indication, effectiveness, safety and convenience of her medications were reviewed today. The patient's medical conditions were assessed, evaluated, and deemed meeting goals of drug therapy, with thefollowing exceptions. YVONNE Smith Tech 09/09/2024, 8:13 PM documented in this encounter Plan of Treatment Upcoming Encounters Date Type Department Care Team (Late st Contact Info) Description 09/12/2024 8:20 AM EDT Office Visit Pulmonary Medicine, [facility] [address] [facility] [place] [address] [facility] [address] [facility] [place] [address] 10/21/2024 3:00 PM EST Telemedicine Psychiatry Loreta Odell [place] [address] [place] [address] Codi Reardon CRNP [address] [place] [address] 11/02/2024 2:40 PM EST Office Visit Family [facility] [address] [place] [address] Ludy Jacobs CRNP [address] [place] [address] 11/08/2024 2:00 PM EST Telemedicine Cardiology [facility], [place] [address] [place], [place] [id number] [place], Pharmacist Cardiology [facility] [address] [place], [place] [id number] 02/13/2025 3:30 PM EDT Telemedicine Care at Home [address] [place], [place] [id number] Lulu Yee PA-C [address] [place], [place] [id number] Scheduled Procedures Name Priority Associated Diagnoses Date/Ti me COLONOSCOPY FLEXIBLE PROXIMAL DIAGNOSTIC Recall History of colon polyps Health Maintenance Due Date Last Done Comments Alpha-1 Antitrypsin 1982 HPV/Co-Test 1994 Cologuard 2009 Fecal Occult Blood Test 2009 Sigmoidoscopy 2009 DISCUSS TOBACCO CESSATION (REFER TO SMARTSET #3291) 04/04/2020 04/04/2019, 10/05/2018 Zoster Vaccines (2 of 2) 03/06/2021 01/09/2021 CKD PHOS USE SMARTSET 98198 03/29/2022 03/29/2021, 0 03/28/2021 Albumin/Creatinine Ratio 09/29/2023 09/29/2022, 05/0 03/2021 Mammogram 03/02/2024 03/02/2023, 02/21, 11/04/2016, Additional history exists Depression Monitoring 07/02/2024 07/02/2023 COVID-19 Vaccine ( season) 2024 10/21/2023, 09/26/2022, 09/26/2022, Additional history exists Cervical Cancer Screening 12/04/2024 Pap Smear 12/04/2024 12/04/2021, 02/21, 03/03/2016, Additional history exists GFR 01/30/2025 08/02/2024, 06/0 04/2024, 04/05/2024, Additional history exists CKD HGB USE SMARTSET 55657 08/02/202508/02, 08/02/2024, 04/28/2024, Additional history exists O2 ASSESSMENT COMPLETED IN PAST YEAR FOR COPD 08/02/2025 08/02/2024 TSH 08/02/2025 08/02/2024, 06/0 04/2024, 03/06/2023, Additional history exists Colonoscopy 04/30/2026 04/30/2023, 06/0 06/2023, 11/28/2019, Additional history exists Colorectal Cancer Screening 04/30/2026 Pneumococcal Vaccine: Pediatrics (0 to 5 Years) and At-Risk Patients (6 to 64 Years) (3 of 3 - PPSV23 or PCV20) 2029 12/14/2014, 12/14/2014, 10/11/2008 DTap/Tdap Vaccines (3 - Td or Tdap) 01/09/2031 01/09/2021, 01/04/2009 Hepatitis B Vaccine Completed 03/02/2023, Influenza Vaccine (FLU shot) Completed 08/2024, 10/21/2023, 09/24/2022, Additional history exists HPV (Gardasil) Vaccine Aged Out No lo nger eligible based on patient's age to complete this topic MENINGOCOCCAL (MENACTRA/MENVEO) Aged Out No longer eligible based on patient's age to complete this topic documented as of this encounter Medical Devices Not on filedocumented as of this encounter Visit Diagnoses Diagnosis Referred for medication therapy management- Primary Encounter for long-term (current) use of other medications documented in this encounter Advance Directives * Full Code (Latest Code Status on File) Date Activated Date Inactivated Comments 03/27/2021 9:46 PM 03/29/2021 6:15 PM This order ref lects the patients wishes and were consensually agreed upon. Question Answer Comments Discussion of Advance Directives occurred with: Patient * Full Code Date Activated Date Inactivated Comments 03/14/2019 1:39 PM 03/14/2019 6:13 PM This order r eflects the patients wishes and were consensually agreed upon. Healthcare Agents on File Name Relationship Healthcare Agent Counts Include [phone] Lopez Santiago Spouse First Alternate Health Care Agent [place] Adult Child Health Care Agent Care Teams Seam Closer Relationship Specialty Start Date End Date Ludy Jacobs CRNP [address] [place] [id number] PCP - General Nurse Practitioner 04/20/24 documented as of this encounter
--- OUTSIDE RECORDS SUMMARY | 2024-09-18 23:48 | External Medical Summary | Summary of Care ---
Author Name Unknown Organization [facility] Address [address] [facility] [address] Phone [phone] Care Team Providers Care Homeworker Name Role Phone Ludy Jacobs Zeina LY Primary Care Provider Reason for Visit * Reason Onset Date Comments Precert Approved 08/03/2024 Repatha 140mg/m L sureclick pen (new) Encounter Details Date Type Department Care Team (Late st Contact Info) Description 08/03/2024 Telephone Cardiology, [place] [address] [facility] [place] [address] [facility] [place] [address] Precert Approved (Repatha 140mg/mL surecli... Allergies Active Allergy Reactions Criticality Noted Date Comments Adhesive Tape 10/12/2019 Other reaction(s): BANDAIDS SKIN ABRASION Colchicine 05/08/2022 N/v/d Rosuvastatin 04/02/2021 Went into kidney failure Demerol 08/11/2012 Depression Ibuprofen 04/02/2021 Meperidine And Related 09/28/2002 depression Nsaids 04/02/2021 Sulfa Antibiotics Rash 07/09/2001 Ketorolac Tromethamine Medium 04/04/2021 documented as of this encounter (statuses as of 09/07/2024) Medications Medication Sig Dispensed Refills Start Date End Date Status VALVED HOLDING CHAMBER DEVIIndications:CO PD with emphysema ([facility]) to be used with inhalers as instructed 1 Device 2 2 Active Additional Information Patient not taking.Informant: Transferring Facility Documents, Reported on 02/02/2024 oxygen GAS 2 LPM via NC during hours of sleep 1 Each 8 Active Additional Information Patient taking differently: 2 L/min(Oxygen), 2 LPM via NC all day and during hours, Informant: Transferring Facility Documents, Reported on 12/24/2022 Nebulizers (NEBULIZER COMPRESSOR) MISC Inhale via nebulizer. Along with supply . Use as directed. Dx code- J44.9 and J43.9 1 Each 8 Active aspirin enteric coated 81 MG TBEC Take 1 Tablet by mouth every morning. Active Acetaminophen 325 MG Oral Tablet (Tylenol) Take 1 Tablet by mouth every 6 hours as needed. Active Nebulizer DeviceIndications: COPD, group C, 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 ([facility]),Chronic hypoxemic respiratory failure ([facility]) Use with nebulized medications 1 Each 2 Active Full Kit Nebulizer SetIndications:HOSPITALITY TEAM MEMBER D, group C, 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 ([facility]),Chronic hypoxemic respiratory failure ([facility]) Use with nebulizer 1 Each 2 Active Syringe 25G X 1-1/2" 3 ML Use for intramuscular B12 injection 1 Each 11 2 Active Albuterol Sulfate (2.5 MG/3ML) 0.083% Inhalation Nebulization Solution (Proventil)Indicat ions:COPD, group D, 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 ([facility]) Inhale 1 Vial via nebulizer 4 times a day as needed for Wheezing. Use in place of rescue inhaler. 360 mL 2 3 Active Midodrine HCl 5 MG Oral Tablet (Proamatine)Indica tions:Chronic diastolic congestive heart failure (HCC) Take 1 Tablet by mouth in the morning and 1 Tablet at noon and 1 Tablet before bedtime. 270 Tablet 3 3 Active Empagliflozin 10 MG Oral Tablet (Jardiance)Indicat ions:Chronic combined systolic and diastolic congestive heart failure (HCC) Take 1 Tablet by mouth in the morning. 90 Tablet 3 4 Active Entresto 24-26 MG Oral Tablet (sacubitril-valsar barber 24-26 mg per tab)Indications:Ch ronic combined systolic and diastolic congestive heart failure (HCC),HFrEF (heart failure with reduced ejection fraction) ([facility]) Take 1 Tablet by mouth in the morning and 1 Tablet before bedtime. 180 Tablet 3 4 Active Ondansetron HCl 4 MG Oral Tablet (Zofran)Indication s:Nausea TAKE (1) TABLET BY MOUTH EVERY EIGHT HOURS NEEDED FOR NAUSEA. Strength: 4 mg 30 Tablet 4 Active Omeprazole 20 MG Oral Capsule Delayed Release (PriLOSEC)Indicati ons:Abdominal pain, epigastric TAKE 1 CAPSULE IN THE MORNING AND 1 CAPSULE BEFORE BEDTIME 60 Capsule 5 4 Active Metoprolol Succinate ER 50 MG Oral Tablet Extended Release 24 Hour (toPROL XL)Indications:Old [place] (myocardial infarction) TAKE 1 AND 1/2 TABLETS BY MOUTH EVERY MORNING 135 Tablet 4 Active Methocarbamol 500 MG Oral Tablet (Robamol)Indicatio ns:Chronic pain syndrome TAKE 1 TABLET IN THE MORNING, 1 AT NOON, 1 IN THE EVENING AND 1 BEFORE BEDTIME. 120 Tablet 3 4 Active Folic Acid 1 MG Oral TabletIndications: Folic acid deficiency Take 1 Tablet by mouth in the morning. In the morning.. 100 Tablet 3 4 Active Synthroid 75 MCG Oral TabletIndications: Acquired hypothyroidism TAKE 1 TABLET BY MOUTH DAILY (AT LEAST 30 MINUTES PRIOR TO BREAKFAST OR OTHER MEDS). 90 Tablet 3 4 Active Spironolactone 25 MG Oral Tablet (Aldactone)Indicat ions:Chronic combined systolic and diastolic congestive heart failure (HCC) Take 0.5 Tablets by mouth in the morning. 45 Tablet 3 4 Active Repatha SureClick 140 MG/ML Subcutaneous Solution Auto-injector (evolocumab) Inject 140 mg (1 pen) under the skin every 14 days. Remove from refrigerator 30 minutes prior to injection. 6 mL 3 4 Active PARoxetine HCl 40 MG Oral Tablet (pAXil) Take 1 Tablet by mouth in the morning. 30 Tablet 3 4 Active Pregabalin 75 MG Oral Capsule (Lyrica)Indication s:Complex regional pain syndrome type 1 of left upper extremity Take 1 Capsule by mouth in the morning and 1 Capsule at noon and 1 Capsule before bedtime. 90 Capsule 5 4 Active Albuterol Sulfate HFA 108 (90 Base) MCG/ACT Inhalation Aerosol SolutionIndication s:COPD, group C, 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 ([facility]) Inhale 2 Puffs by mouth every 4 hrs as needed for Cough, Shortness of Breath or Withdrawal symptoms. 54 g 1 4 Active LORazepam 0.5 MG Oral Tablet (Ativan) Take 1 Tablet by mouth daily as needed for Anxiety. Do not start before August 12, 2024. 30 Tablet 2 4 Active Ipratropium-Albute rol 0.5-2.5 (3) MG/3ML Inhalation Solution (Duoneb) USE 1 AMPULE IN NEBULIZER 4 TIMES DAILY NEEDED FOR COUGH, SHORTNESS OF BREATH OR WHEEZING -USE IN PLACE OF RESCUE INHALER 360 mL 5 4 024 Discontinued Hospital, Clinic, or Other Facility Administered Medication Ordered Dose Route Frequency Start Date End Date Status Albuterol Sulfate (Proventil) (2.5 MG/3ML) 0.083% inhalation solution 2.5 mgIndications:COPD, group D, 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 ([facility]) 2.5 mg NEBULIZER ONCE PRN 04/28/2024 04/28/2025 Acti ve documented as of this encounter (statuses as of 09/07/2024) Active Problems Problem Noted Date Diagnosed Date [...] noted above Atherosclerotic heart diseas e of [place] coronary artery with other forms of angina pectoris 11/12/2022 Chronic hypoxemic respiratory failure 10/30/2022 Last Assessment & Plan: O2 stable on 2 L PTSD (post-traumatic stress disorder) 10/30/2022 RSD (reflex sympathetic dystrophy) 10/30/2022 Neuropathic pain 07/02/2022 Last Assessment & Plan: Continue lyrica AC joint arthropathy 06/11/2022 Tendinosis of rotator cuff 06/11/2022 Chronic pain 03/04/2022 Last Assessment & Plan: Appointment scheduled with [facility] pain clinic [place] 07/02. Statin intolerance 01/24/2022 Osteopenia 01/08/2022 LYNDON [...] use aero chamber. 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 Took high dose replacement. Due to repeat. Coronary artery disease invo lving [place] coronary artery of [place] heart without angina pectoris 11/12/2015 Last Assessment & Plan: Stable no angina -continue ASA, metoprolol xl, repatha. Can't tolerate delgado d/t low bp Dyslipidemia, goal LDL below 70 11/12/2015 Sicca syndrome 12/29/2014 Acquired hypothyroidism 12/29/2014 Last Assessment & Plan: Continue synthroid Old [place] (myocardial infarction) 11/01/2013 Last Assessment & Plan: [...] as of this encounter (statuses as of 09/07/2024) Resolved Problems Problem Noted Date Diagnosed Date [...] esophagitis 04/08/2021 10/08/2021 UNRULY (acute kidney injury) 03/28/2021 Thrush 09/13/2019 10/08/2021 COPD exacerbation 08/19/2019 11/25/2023 Overview: 09/06/19 In Check dial performed to assess inhaler technique:Name of inhaler Albuterol Pass: Yes at 55L/min and Trelegy Ellipta Pass: Yes at 45L/min. Encouraged to take nice slow deep breaths and encouraged to use aero chamber. Test performed by Flex CAR CPFT Last Assessment & Plan: O2 stable [...] COPD, moderate 04/07/2012 10/05/2012 Overview: PFT 03/2008 [facility] COPD, SEVERE 04/07/2012 05/04/2019 Overview: PER COPD PROTOCOL #24. PFT 03/2008 [facility] LAST PFT -06/07/12 Gastroesophageal reflux dise ase with esophagitis 04/30/2009 01/14/2022 Overview: mild COPD with emphysema 10/05/20 12 documented as of this encounter (statuses as of 09/07/2024) Immunizations Name Administration Dates Next Due COVID-19 mRNA, LNP-s, No Pre serve, 2-Dose Series ([employer]) 09/26/2022,11/18/2021,04/04/2021,02/28 COVID-19, MRNA-LNP, 23-24, P F, 30 MCG/0.3 mL, 12 YRS AND ABOVE, IM ([employer]) 10/21/2023 Covid-19, Mrna, Lnp-s, Pf, B ivalent, 30 Mcg, IM, 12 yrs and above ([employer]) 09/26/2022 HEPATITIS B VACCINE, RECOMB, 20 MCG/ML, [...] (15 years old or older) Yes 03/28/20 21 Cognitive Status Response Date of Assessm ent Because of a physical, menta l, or emotional condition, do you have serious difficulty concentrating, remembering, or making decisions? (5 years old or older) No 03/28/2021 documented as of this encounter Miscellaneous Notes * Telephone Encounter - Daily Henderson RPh - 09/07/2024 9:59 AM EDT LVM reminding patient to reach out when able. Provided [facility] phone number. Daily Henderson PharmD Clinical Pharmacist - Director Hospice Operations [facility] 09/07/2024 9:59 AM * Telephone Encounter - Daily Henderson RPh - 08/31/2024 2:48 PM EDT Called patient to follow up. States she is currently admitted to the hospital. Is willing to speak with [facility] regarding financial assistance and requests a call to discuss next week. Daily Henderson PharmD Clinical Pharmacist - Director Hospice Operations [facility] 08/31/2024 2:49 PM * Telephone Encounter - Daily Henderson RPh - 08/23/2024 4:01 PM EDT Patient's co-pay is $389.37. [facility] assessing for assistance options but was unable to reach patient. Called patient today and she reports has been away dealing with loss of family member, but plans to return [facility] call regarding Repatha cost tomorrow. * Telephone Encounter - Cheri Yee RPh - 08/03/2024 9:35 AM EDT PCSK-9 Inhibitor Prior-Authorization Request Medication/Disease State Information: PCSK9 inhibitor needing prior auth: Repatha 140 mg every 2 weeks Diagnosis: HLD; ASCVD (CAD) Quantity (30 or 90 day): 90 days Failed or Intolerant to or Contraindicated: rhabdomyolysis with crestor march 2021 LDL Goal: < 70 mg/dL Pre-Treatment LDL: 182 mg/dL Date: 08/02/24 Current therapy: none Trial of max tolerated dose of Statin and Ezetimibe: yes; statins CI; zetia would not be enough to get patient to goal Lipid Panel Results: Results for orders placed or performed in visit on 05/09/20 LIPID PANEL Result Value Ref Range HOURS FASTING >8 HOURS hours Triglycerides 84 0 - 174 mg/dL Cholesterol 143 <200 mg/dL HDL Cholesterol 54 >49 mg/dL NON-HDL CHOLESTEROL 89 0 - 159 mg/dL LDL Cholesterol 72 0 - 129 mg/dL Results for orders placed or performed in visit on 08/02/24 LIPID PANEL WITH DIRECT LDL IF TG IS HIGH Result Value Ref Range Triglycerides 205 (H) <=174 mg/dL Cholesterol 267 (H) <200 mg/dL HDL Cholesterol 44 (L) >49 mg/dL Non-HDL Cholesterol 223 (H) <=159 mg/dL LDL Cholesterol 182 (H) <=129 mg/dL Route referral message to [facility] [[id number]]. Please submit to BOTH primary insurance and secondary insurance (ex PACE/PACENET) if applicable. documented in this encounter Plan of Treatment Upcoming Encounters Date Type Department Care Team (Late st Contact Info) Description 09/09/2024 11:00 AM EDT Office Visit [facility] [address] [place] [address] Ludy Jacobs CRNP [address] [place] [address] 09/12/2024 8:20 AM EDT Office Visit Pulmonary Medicine, [facility] [address] [place] [address] [facility] Duong [facility] [address] [facility] [address] 10/21/2024 3:00 PM EST Telemedicine Psychiatry [facility] [address] [place] [address] Codi Reardon CRNP [address] [place] [address] 11/02/2024 2:40 PM EST Office Visit [facility] [address] [facility] [address] Ludy Jacobs CRNP [address] [place] [address] 11/08/2024 2:00 PM EST Telemedicine [facility]iology [facility] [place] [address] [place] [address] [place], Pharmacist Cardiology [facility] [address] [place], [place] [phone] 02/13/2025 3:30 PM EDT Telemedicine Care at Home [address] [place], [place] [id number] Lulu Yee PA-C [address] [place], [place] [phone] Scheduled Procedures Name Priority Associated Diagnoses Date/Ti me COLONOSCOPY FLEXIBLE PROXIMAL DIAGNOSTIC Recall History of colon polyps Health Maintenance Due Date Last Done Comments Alpha-1 Antitrypsin 1982 HPV/Co-Test 1994 Cologuard 2009 Fecal Occult Blood Test 2009 Sigmoidoscopy 2009 DISCUSS TOBACCO CESSATION (REFER TO SMARTSET #6321) 04/04/2020 04/04/2019, 10/05/2018 Zoster Vaccines (2 of 2) 03/06/2021 01/09/2021 CKD PHOS USE SMARTSET 89983 03/29/2022 03/29/2021, 0 03/28/2021 Albumin/Creatinine Ratio 09/29/2023 09/29/2022, 0503/2021 Mammogram 03/02/2024 03/02/2023, 02/21, 11/04/2016, Additional history exists Depression Monitoring 07/02/2024 07/02/2023 COVID-19 Vaccine ( season) 2024 10/21/2023, 09/26/2022, 09/26/2022, Additional history exists Cervical Cancer Screening 12/04/2024 Pap Smear 12/04/2024 12/04/2021, 02/21, 03/03/2016, Additional history exists GFR 01/30/2025 08/02/2024, 06/0 04/2024, 04/05/2024, Additional history exists CKD HGB USE SMARTSET 14939 08/02/202508/02, 08/02/2024, 04/28/2024, Additional history exists O2 [...] Not on filedocumented as of this encounter Advance Directives * Full Code (Latest Code Status on File) Date Activated Date Inactivated Comments 03/27/2021 9:46 PM 03/29/2021 6:15 PM This order ref lects the patients wishes and were consensually agreed upon. Question Answer Comments Discussion of Advance Directives occurred with: Patient * Full Code Date Activated Date Inactivated Comments 03/14/2019 1:39 PM 03/14/2019 6:13 PM This order reflects the patients wishes and were consensually agreed upon. Healthcare Agents on File Name Relationship Healthcare Agent [facility] Communication Lopez Brown Spouse First Alternate Health Care Agent [place] Adult Child Health Care Agent Care Teams Homeworker Relationship Specialty Start Date End Date Ludy Jacobs CRNP [address] [place] [address] PCP - General Nurse Practitioner 04/20/24 documented as of this encounter
--- OUTSIDE RECORDS SUMMARY | 2024-09-18 23:48 | External Medical Summary | Summary of Care ---
Author Name Unknown Organization [facility] Address [address] [facility] [place] [address] Phone [phone] Care Team Providers Care Conveyor Monitor Name Role Phone Ludy Jacobs Zeina LY Primary Care Provider Encounter Details Date Type Department Care Team (Late st Contact Info) Description 09/09/2024 Population Health External Data Unspecified Department Allergies Active Allergy Reactions Criticality Noted Date [...] Documents, Reported on 12/24/2022 Nebulizers (NEBULIZER COMPRESSOR) [facility] [place]ale via nebulizer. Along with supply . Use as directed. Dx code- J44.9 and J43.9 1 Each 10/05/2018 Active aspirin enteric coated 81 MG TBEC Take 1 Tablet by mouth every morning. Active Acetaminophen 325 MG Oral Tablet (Tylenol) Take 1 Tablet by mouth every 6 hours as needed. Active Nebulizer DeviceIndications:CO PD, group C, 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 ([facility]),Chronic hypoxemic respiratory failure ([facility]) Use with nebulized medications 1 Each 07/24/2022 Active Full Kit Nebulizer SetIndications:COPD, group C, 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 ([facility]),Chronic hypoxemic respiratory failure ([facility]) Use with nebulizer 1 Each 07/24/2022 Active Syringe 25G X 1-1/2" 3 ML Use for intramuscular B12 injection 1 Each 11 10/02/2022 Active Albuterol Sulfate (2.5 MG/3ML) 0.083% Inhalation Nebulization Solution (Proventil)Indicatio ns:COPD, group D, 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 ([facility]) Inhale 1 Vial via nebulizer 4 [...] Oral Tablet (sacubitril-valsarta n 24-26 mg per tab)Indications:Worm Grower darius combined systolic and diastolic congestive heart failure (HCC),HFrEF (heart failure with reduced ejection fraction) ([facility]) Take 1 Tablet by mouth in [...] Tablet Extended Release 24 Hour (toPROL XL)Indications:Old [place] (myocardial infarction) TAKE 1 AND 1/2 TABLETS [...] COPD, group C, 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 ([facility]) Inhale 2 Puffs by mouth every [...] mgIndications:COPD, group D, 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 (HCC) 2.5 mg NEBULIZER ONCE PRN 04/28/2024 04/28/2025 [...] noted above Atherosclerotic heart diseas e of [place] coronary artery with other forms of angina pectoris 11/12/2022 Chronic hypoxemic respiratory failure 10/30/2022 Last Assessment & Plan: O2 stable on 2 L PTSD (post-traumatic stress disorder) 10/30/2022 RSD (reflex sympathetic dystrophy) 10/30/2022 Neuropathic pain 07/02/2022 Last Assessment & Plan: Continue lyrica AC joint arthropathy 06/11/2022 Tendinosis of rotator cuff 06/11/2022 Chronic pain 03/04/2022 Last Assessment & Plan: Appointment scheduled with [facility] pain clinic [place] 07/02. Statin intolerance 01/24/2022 Osteopenia 01/08/2022 LYNDON [...] use aero chamber. 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 Took high dose replacement. Due to repeat. Coronary artery disease invo lving [place] coronary artery of [place] heart without angina pectoris 11/12/2015 Last Assessment & Plan: Stable no angina -continue ASA, metoprolol xl, repatha. Can't tolerate delgado d/t low bp Dyslipidemia, goal LDL below 70 11/12/2015 Sicca syndrome 12/29/2014 Acquired hypothyroidism 12/29/2014 Last Assessment & Plan: Continue synthroid Old [place] (myocardial infarction) 11/01/2013 Last Assessment & Plan: Continue metoprolol Cerebellar hemangioma 12/15/2012 Overview: MRI 2009 Generalized osteoarthritis 09/14/2012 S/P angioplasty with stent [...] use aero chamber. Test performed by Flex COOKER PIE FILLING CPFT Last Assessment & Plan: O2 stable [...] COPD, moderate 04/07/2012 10/05/2012 Overview: PFT 03/2008 [facility] COPD, SEVERE 04/07/2012 05/04/2019 Overview: PER COPD PROTOCOL #24. PFT 03/2008 [facility] LAST PFT -06/07/12 Gastroesophageal reflux dise ase with esophagitis 04/30/2009 01/14/2022 Overview: mild COPD with emphysema 10/05/20 12 documented as of this encounter (statuses as of 09/09/2024) Immunizations Name Administration Dates Next Due COVID-19 mRNA, LNP-s, No Pre serve, 2-Dose Series ([employer]) 09/26/2022,11/18/2021,04/04/2021,02/28 COVID-19, MRNA-LNP, 23-24, P F, 30 MCG/0.3 mL, 12 YRS AND ABOVE, IM ([employer]) 10/21/2023 Covid-19, Mrna, Lnp-s, Pf, B ivalent, 30 Mcg, IM, 12 yrs and above ([employer]) 09/26/2022 HEPATITIS B VACCINE, RECOMB, 20 MCG/ML, [...] No 03/28/2021 documented as of this encounter Plan of Treatment Upcoming Encounters Date Type Department Care Team (Late st Contact Info) Description 09/09/2024 11:00 AM EDT Office Visit [facility] [address] [facility] [place] [address] Ludy Jacobs CRNP [address] [facility] [place] [address] 09/12/2024 8:20 AM EDT Office Visit Pulmonary Medicine, [facility] [address] [facility] [place] [address] Sony Duong MD [address] [place] [address] 10/21/2024 3:00 PM EST Telemedicine Psychiatry [facility] [address] [place] [address] Codi Reardon CRNP [address] [place] [address] 11/02/2024 2:40 PM EST Office Visit [facility] [address] [facility] [place] [address] Ludy Jacobs CRNP [address] [place] [address] 11/08/2024 2:00 PM EST Telemedicine Cardiology [facility], [place] [address] [place] [address] Angel, Pharmacist Cardiology [facility] [address] [place] [address] 02/13/2025 3:30 PM EDT Telemedicine Care at Home [address] [place] [address] Lulu Yee PA-C [address] [place], [place] [phone] Scheduled Procedures Name Priority Associated Diagnoses Date/Ti me COLONOSCOPY FLEXIBLE PROXIMAL DIAGNOSTIC Recall History of colon polyps Health Maintenance Due Date Last Done Comments Alpha-1 Antitrypsin 1982 HPV/Co-Test 1994 Cologuard 2009 Fecal Occult Blood Test 2009 Sigmoidoscopy 2009 DISCUSS TOBACCO CESSATION (REFER TO SMARTSET #3291) 04/04/2020 04/04/2019, 10/05/2018 Zoster Vaccines (2 of 2) 03/06/2021 01/09/2021 CKD PHOS USE SMARTSET 31206 03/29/2022 03/29/2021, 0 03/28/2021 Albumin/Creatinine Ratio 09/29/2023 09/29/2022, 0503/2021 Mammogram 03/02/2024 03/02/2023, 02/21, 11/04/2016, Additional history exists Depression Monitoring 07/02/2024 07/02/2023 COVID-19 Vaccine ( season) 2024 10/21/2023, 09/26/2022, 09/26/2022, Additional history exists Cervical Cancer Screening 12/04/2024 Pap Smear 12/04/2024 12/04/2021, 02/21, 03/03/2016, Additional history exists GFR 01/30/2025 08/02/2024, 06/0 04/2024, 04/05/2024, Additional history exists CKD HGB USE SMARTSET 00170 08/02/202508/02, 08/02/2024, 04/28/2024, Additional history exists O2 [...] Agents on File Name Relationship Healthcare Agent [facility] p Communication Lopez Santiago Spouse First Alternate Health Care Agent [place] Adult Child Health Care Agent Care Teams Conveyor Monitor Relationship Specialty Start Date End Date Ludy Jacobs CRNP [address] [place] [address] PCP - General Nurse Practitioner 04/20/24 documented as of this encounter
--- OUTSIDE RECORDS SUMMARY | 2024-09-18 23:48 | External Medical Summary | Summary of Care ---
Author Name Unknown Organization [facility] Address [address] [facility] [place] [address] Phone [phone] Care Team Providers Care Civil Engineering Teacher Name Role Phone Ludy Jacobs Zeina LY Primary Care Provider Encounter Details Date Type Department Care Team (Late st Contact Info) Description 09/06/2024 Population Health External Data Unspecified Department Allergies [...] Documents, Reported on 12/24/2022 Nebulizers (NEBULIZER COMPRESSOR) [facility] [place] Inhale via nebulizer. Along with supply . Use as directed. Dx code- J44.9 and J43.9 1 Each 10/05/2018 Active aspirin enteric coated 81 MG TBEC Take 1 Tablet by mouth every morning. Active Acetaminophen 325 MG Oral Tablet (Tylenol) Take 1 Tablet by mouth every 6 hours as needed. Active Nebulizer DeviceIndications:CO PD, group C, 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 ([facility]),Chronic hypoxemic respiratory failure ([facility]) Use with nebulized medications 1 Each 07/24/2022 Active Full Kit Nebulizer SetIndications:COPD, group C, 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 ([facility]),Chronic hypoxemic respiratory failure ([facility]) Use with nebulizer 1 Each 07/24/2022 Active Syringe 25G X 1-1/2" 3 ML Use for intramuscular B12 injection 1 Each 11 10/02/2022 Active Albuterol Sulfate (2.5 MG/3ML) 0.083% Inhalation Nebulization Solution (Proventil)Indicatio ns:COPD, group D, 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 ([facility]) Inhale 1 Vial via nebulizer [...] Oral Tablet (sacubitril-valsarta n 24-26 mg per tab)Indications:Claims Associate darius combined systolic and diastolic congestive heart failure (HCC),HFrEF (heart failure with reduced ejection fraction) ([facility]) Take 1 Tablet by mouth [...] Tablet Extended Release 24 Hour (toPROL XL)Indications:Old RI (myocardial infarction) TAKE 1 AND 1/2 TABLETS [...] COPD, group C, 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 ([facility]) Inhale 2 Puffs by mouth [...] noted above 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 Statin intolerance 01/24/2022 Osteopenia 01/08/2022 LYNDON [...] use aero chamber. 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 Took high dose replacement. Due to repeat. Coronary artery disease invo lving telida coronary artery of telida heart without angina pectoris 11/12/2015 Last Assessment & Plan: Stable no angina -continue ASA, metoprolol xl, repatha. Can't tolerate delgado d/t low bp Dyslipidemia, goal LDL below 70 11/12/2015 Sicca syndrome 12/29/2014 Acquired hypothyroidism 12/29/2014 Last Assessment & Plan: Continue synthroid Old RI (myocardial infarction) 11/01/2013 Last Assessment & Plan: [...] use aero chamber. Test performed by Flex ETL TESTER CPFT Last Assessment & Plan: O2 stable [...] moderate 04/07/2012 10/05/2012 Overview: PFT 03/2008 [facility] COPD, SEVERE 04/07/2012 05/04/2019 Overview: PER COPD PROTOCOL #24. PFT 03/2008 [facility] LAST PFT -06/07/12 Gastroesophageal reflux dise ase with esophagitis 04/30/2009 01/14/2022 Overview: mild COPD with emphysema 10/05/20 12 documented as of this encounter (statuses as of 09/07/2024) Immunizations Name Administration Dates Next Due COVID-19 mRNA, LNP-s, No Pre serve, 2-Dose Series ([employer]) 09/26/2022,11/18/2021,04/04/2021,02/28 COVID-19, MRNA-LNP, 23-24, P F, 30 MCG/0.3 mL, 12 YRS AND ABOVE, IM ([employer]MySQUAR[employer]) 10/21/2023 Covid-19, Mrna, Lnp-s, Pf, B ivalent, [...] Description 09/09/2024 11:00 AM EDT Office Visit [facility] [address] [place] [address] Ludy Jacobs CRNP [address] [facility] [place] [address] 09/12/2024 8:20 AM EDT Office Visit Pulmonary Medicine, [facility] [address] [place] [address] Sony Duong MD [address] [place] [address] 10/21/2024 3:00 PM EST Telemedicine Psychiatry [facility] [address] [place] [address] Codi Reardon CRNP [address] [place] [address] 11/02/2024 2:40 PM EST Office Visit [facility] [address] [place] [address] Ludy Jacobs CRNP [address] [place] [address] 11/08/2024 2:00 PM EST Telemedicine Cardiology [facility], [place] [address] [place] [address] Angel, Pharmacist Cardiology [facility] [address] [place] [address] 02/13/2025 3:30 PM EDT Telemedicine Care at Home [address] [place] [address] Lulu Yee PA-C [address], [place] [phone] Scheduled Procedures Name Priority Associated Diagnoses Date/Ti me COLONOSCOPY FLEXIBLE PROXIMAL DIAGNOSTIC Recall History of colon polyps Health Maintenance Due Date Last Done Comments Alpha-1 Antitrypsin 1982 HPV/Co-Test 1994 Cologuard 2009 Fecal Occult Blood Test 2009 Sigmoidoscopy 2009 DISCUSS TOBACCO CESSATION (REFER TO SMARTSET #3291) 04/04/2020 04/04/2019, 10/05/2018 Zoster Vaccines (2 of 2) 03/06/2021 01/09/2021 CKD PHOS USE SMARTSET 54076 03/29/2022 03/29/2021, 0 03/28/2021 Albumin/Creatinine Ratio 09/29/2023 09/29/2022, 0503/2021 Mammogram 03/02/2024 03/02/2023, 02/21, 11/04/2016, Additional history exists Depression Monitoring 07/02/2024 07/02/2023 COVID-19 Vaccine ( season) 2024 10/21/2023, 09/26/2022, 09/26/2022, Additional history exists Cervical Cancer Screening 12/04/2024 Pap Smear 12/04/2024 12/04/2021, 02/21, 03/03/2016, Additional history exists GFR 01/30/2025 08/02/2024, 06/0 04/2024, 04/05/2024, Additional history exists CKD HGB USE SMARTSET 70564 08/02/202508/02, 08/02/2024, 04/28/2024, Additional history exists O2 [...] Agents on File Name Relationship Healthcare Agent [facility] p Communication Lopez Santiago Spouse First Alternate Health Care Agent [place] Adult Child Health Care Agent Care Teams Civil Engineering Teacher Relationship Specialty Start Date End Date Ludy Jacobs CRNP [address] [place] [id number] PCP - General Nurse Practitioner 04/20/24 documented as of this encounter
--- OUTSIDE RECORDS SUMMARY | 2024-09-18 23:48 | External Medical Summary | Summary of Care ---
Author Name Unknown Organization [facility] Address [address] [address] Phone [phone] Care Team Providers Care Instructor Painting Name Role Phone Ludy Jacobs Zeina LY Primary Care Provider Reason for Visit * Reason Onset Date Comments Precert Approved 08/03/2024 Repatha 140mg/m L sureclick pen (new) Encounter Details Date Type Department Care Team (Late st Contact Info) Description 08/03/2024 Telephone Cardiology, [place] [address] [facility] [place] [address] [facility] [address] [facility] [place] [address] Precert Approved (Repatha 140mg/mL surecli... Allergies Active Allergy Reactions Criticality Noted Date Comments Adhesive Tape 10/12/2019 Other reaction(s): BANDAIDS SKIN ABRASION Colchicine 05/08/2022 N/v/d Rosuvastatin 04/02/2021 Went into kidney failure Demerol 08/11/2012 Depression Ibuprofen 04/02/2021 Meperidine And Related 09/28/2002 depression Nsaids 04/02/2021 Sulfa Antibiotics Rash 07/09/2001 Ketorolac Tromethamine Medium 04/04/2021 documented as of this encounter (statuses as of 09/14/2024) Medications Medication Sig Dispensed Refills Start Date End Date Status VALVED HOLDING CHAMBER DEVIIndications:CO PD with emphysema ([facility]) to be used with inhalers [...] COPD, group C, 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 ([facility]),Chronic hypoxemic respiratory failure ([facility]) Use with nebulized medications 1 Each 2 Active Full Kit Nebulizer SetIndications:MAP AND CHART MOUNTER D, group C, 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 ([facility]),Chronic hypoxemic respiratory failure ([facility]) Use with nebulizer 1 Each 2 Active Syringe 25G X 1-1/2" 3 ML Use for intramuscular B12 injection 1 Each 11 2 Active Albuterol Sulfate (2.5 MG/3ML) 0.083% Inhalation Nebulization Solution (Proventil)Indicat ions:COPD, group D, 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 ([facility]) Inhale 1 Vial via nebulizer [...] (HCC),HFrEF (heart failure with reduced ejection fraction) ([facility]) Take 1 Tablet by mouth [...] Tablet Extended Release 24 Hour (toPROL XL)Indications:Old GA (myocardial infarction) TAKE 1 AND 1/2 TABLETS [...] s:COPD, group C, 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 ([facility]) Inhale 2 Puffs by mouth [...] mgIndications:COPD, group D, 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 ([facility]) 2.5 mg NEBULIZER ONCE PRN 04/28/2024 04/28/2025 Acti ve documented as of this encounter (statuses as of 09/14/2024) Active Problems Problem Noted Date Diagnosed Date [...] noted above Atherosclerotic heart diseas e of pamunkey coronary artery with other forms of angina pectoris 11/12/2022 Chronic hypoxemic respiratory failure 10/30/2022 Last Assessment & Plan: O2 stable on 2 L PTSD (post-traumatic stress disorder) 10/30/2022 RSD (reflex sympathetic dystrophy) 10/30/2022 Neuropathic pain 07/02/2022 Last Assessment & Plan: Continue lyrica AC joint arthropathy 06/11/2022 Tendinosis of rotator cuff 06/11/2022 Chronic pain 03/04/2022 Last Assessment & Plan: Appointment scheduled with [facility] pain clinic [place] 07/02. Statin intolerance 01/24/2022 Osteopenia 01/08/2022 LYNDON [...] use aero chamber. 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 Took high dose replacement. Due to repeat. Coronary artery disease invo lving pamunkey coronary artery of pamunkey heart without angina pectoris 11/12/2015 Last Assessment & Plan: Stable no angina -continue ASA, metoprolol xl, repatha. Can't tolerate delgado d/t low bp Dyslipidemia, goal LDL below 70 11/12/2015 Sicca syndrome 12/29/2014 Acquired hypothyroidism 12/29/2014 Last Assessment & Plan: Continue synthroid Old GA (myocardial infarction) 11/01/2013 Last Assessment & Plan: [...] as of this encounter (statuses as of 09/14/2024) Resolved Problems Problem Noted Date Diagnosed Date [...] moderate 04/07/2012 10/05/2012 Overview: PFT 03/2008 [facility] COPD, SEVERE 04/07/2012 05/04/2019 Overview: PER COPD PROTOCOL #24. PFT 03/2008 [facility] LAST PFT -06/07/12 Gastroesophageal reflux dise ase with esophagitis 04/30/2009 01/14/2022 Overview: mild COPD with emphysema 10/05/20 12 documented as of this encounter (statuses as of 09/14/2024) Immunizations Name Administration Dates Next Due COVID-19 mRNA, LNP-s, No Pre serve, 2-Dose Series ([employer]) 09/26/2022,11/18/2021,04/04/2021,02/28 COVID-19, MRNA-LNP, 23-24, P F, 30 MCG/0.3 mL, 12 YRS AND ABOVE, IM ([employer]-Comirnat) 10/21/2023 Covid-19, Mrna, Lnp-s, Pf, B ivalent, 30 Mcg, IM, 12 yrs and above ([employer]) 09/26/2022 HEPATITIS B VACCINE, RECOMB, 20 MCG/ML, [...] encounter Miscellaneous Notes * Telephone Encounter - Cheri Yee RPh - 09/14/2024 11:32 AM EDT myG sent to patient to call assistance team. * Telephone Encounter - Daily Henderson RPh - 09/07/2024 9:59 AM EDT LVM reminding patient to reach out when able. Provided [facility] phone number. Daily Henderson, Talya Clinical Pharmacist - Orange Picker Machine Operator [facility] 09/07/2024 9:59 AM * Telephone Encounter - Daily Henderson RPh - 08/31/2024 2:48 PM EDT Called patient to follow up. States she is currently admitted to the hospital. Is willing to speak with [facility] regarding financial assistance and requests a call to discuss next week. Daily Henderson, PharmD Clinical Pharmacist - Orange Picker Machine Operator [facility] 08/31/2024 2:49 PM [...] tomorrow. * Telephone Encounter - Cheri Yee RP - 08/03/2024 9:35 AM EDT PCSK-9 Inhibitor [...] mg/dL Route referral message to [facility] [[id number]]. Please submit to BOTH primary insurance and secondary insurance (ex PACE/PACENET) if applicable. documented in this encounter Plan of Treatment Upcoming Encounters Date Type Department Care Team (Late st Contact Info) Description 10/21/2024 3:00 PM EST Telemedicine Psychiatry [facility], [place] [address] [place] [phone] Codi Reardon CRNP [address] [place] [address] 11/02/2024 2:40 PM EST Office Visit Family Practice [facility] [address] [place] [address] Ludy Jacobs CRNP [address] [place] [address] 11/08/2024 2:00 PM EST Telemedicine Cardiology [facility], [place] [address] [place], [place] [phone] [place], Pharmacist Cardiology [facility] [address] [place], [place] [phone] 02/13/2025 3:30 PM EDT Telemedicine Care at Home [address] [place] [address], [place] [phone] Lulu Yee PA-C [address] [place], [place] [phone] Scheduled Procedures Name Priority Associated Diagnoses Date/Ti me COLONOSCOPY FLEXIBLE PROXIMAL DIAGNOSTIC Recall History of colon polyps Health Maintenance Due Date Last Done Comments Alpha-1 Antitrypsin 1982 HPV/Co-Test 1994 Cologuard 2009 Fecal Occult Blood Test 2009 Sigmoidoscopy 2009 DISCUSS TOBACCO CESSATION (REFER TO SMARTSET #3291) 04/04/2020 04/04/2019, 10/05/2018 Zoster Vaccines (2 of 2) 03/06/2021 01/09/2021 CKD PHOS USE SMARTSET 62922 03/29/2022 03/29/2021, 0 03/28/2021 Albumin/Creatinine Ratio 09/29/2023 09/29/2022, 05/0 03/2021 Mammogram 03/02/2024 03/02/2023, 02/21, 11/04/2016, Additional history exists Depression Monitoring 07/02/2024 07/02/2023 COVID-19 Vaccine ( season) 2024 10/21/2023, 09/26/2022, 09/26/2022, Additional history exists Cervical Cancer Screening 12/04/2024 Pap Smear 12/04/2024 12/04/2021, 02/21, 03/03/2016, Additional history exists GFR 01/30/2025 08/02/2024, 06/0 04/2024, 04/05/2024, Additional history exists CKD HGB USE SMARTSET 30276 08/02/202508/02, 08/02/2024, 04/28/2024, Additional history exists O2 [...] Agents on File Name Relationship Healthcare Agent [facility] p Communication Lopez Santiago Spouse First Alternate Health Care Agent [place] Adult Child Health Care Agent Care Teams Instructor Painting Relationship Specialty Start Date End Date Ludy Jacobs CRNP [address] [place] [address] PCP - General Nurse Practitioner 04/20/24 documented as of this encounter
--- OUTSIDE RECORDS SUMMARY | 2024-09-18 23:48 | External Medical Summary | Summary of Care ---
Author Name Unknown Organization [facility] Address [address] [address] Phone [phone] Care Team Providers Care Account Solutions Analyst Name Role Phone Ludy Jacobs Zeina LY Primary Care Provider Reason for Visit * Reason Onset Date Comments [facility]: Screening 09/06/2024 Encounter Details Date Type Department Care Team (Late st Contact Info) Description 09/06/2024 Telephone [facility], [facility] [address] [place] [address] Bree Kay LPN [address] [place] [address] [facility]: Screening Allergies Active Allergy Reactions Criticality Noted Date Comments Adhesive Tape 10/12/2019 Other reaction(s): BANDAIDS SKIN ABRASION Colchicine 05/08/2022 N/v/d Rosuvastatin 04/02/2021 Went into kidney failure Demerol 08/11/2012 Depression Ibuprofen 04/02/2021 Meperidine And Related 09/28/2002 depression Nsaids 04/02/2021 Sulfa Antibiotics Rash 07/09/2001 Ketorolac Tromethamine Medium 04/04/2021 documented as of this encounter (statuses as of 09/06/2024) Medications Medication Sig Dispensed Refills Start Date [...] 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 ([facility]),Chronic hypoxemic respiratory failure ([facility]) Use with nebulized medications 1 Each 07/24/2022 Active Full Kit Nebulizer SetIndications:COPD, group C, 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 ([facility]),Chronic hypoxemic respiratory failure ([facility]) Use with nebulizer 1 Each 07/24/2022 Active Syringe 25G X 1-1/2" 3 ML Use for intramuscular B12 injection 1 Each 11 10/02/2022 Active Albuterol Sulfate (2.5 MG/3ML) 0.083% Inhalation Nebulization Solution (Proventil)Indicatio ns:COPD, group D, 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 ([facility]) Inhale 1 Vial via nebulizer 4 [...] Oral Tablet (sacubitril-valsarta n 24-26 mg per tab)Indications:Senior Net Software Developer darius combined systolic and diastolic congestive heart failure (HCC),HFrEF (heart failure with reduced ejection fraction) (HCC) Take 1 Tablet by mouth in [...] Tablet Extended Release 24 Hour (toPROL XL)Indications:Old LA (myocardial infarction) TAKE 1 AND 1/2 TABLETS [...] 30 minutes prior to injection. 6 mL 05/04/2024 Active PARoxetine HCl 40 MG Oral Tablet (pAXil) Take 1 Tablet by mouth in the morning. 30 Tablet 05/13/2024 Active Pregabalin 75 MG Oral Capsule (Lyrica)Indications: Complex regional pain syndrome type 1 of left upper extremity Take 1 Capsule by mouth in the morning and 1 Capsule at noon and 1 Capsule before bedtime. 90 Capsule 5 06/20/2024 Active Albuterol Sulfate HFA 108 (90 Base) MCG/ACT Inhalation Aerosol SolutionIndications: COPD, group C, 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 ([facility]) Inhale 2 Puffs by mouth every [...] 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 ([facility]) 2.5 mg NEBULIZER ONCE PRN 04/28/2024 04/28/2025 Acti ve documented as of this encounter (statuses as of 09/06/2024) Active Problems Problem Noted Date Diagnosed Date [...] noted above Atherosclerotic heart diseas e of [place] coronary artery with other forms of angina pectoris 11/12/2022 Chronic hypoxemic respiratory failure 10/30/2022 Last Assessment & Plan: O2 stable on 2 L PTSD (post-traumatic stress disorder) 10/30/2022 RSD (reflex sympathetic dystrophy) 10/30/2022 Neuropathic pain 07/02/2022 Last Assessment & Plan: Continue lyrica AC joint arthropathy 06/11/2022 Tendinosis of rotator cuff 06/11/2022 Chronic pain 03/04/2022 Last Assessment & Plan: Appointment scheduled with [facility] pain clinic [place] 07/02. Statin intolerance 01/24/2022 Osteopenia 01/08/2022 LYNDON [...] use aero chamber. 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 Took high dose replacement. Due to repeat. Coronary artery disease invo lving [place] coronary artery of [place] heart without angina pectoris 11/12/2015 Last Assessment & Plan: Stable no angina -continue ASA, metoprolol xl, repatha. Can't tolerate delgado d/t low bp Dyslipidemia, goal LDL below 70 11/12/2015 Sicca syndrome 12/29/2014 Acquired hypothyroidism 12/29/2014 Last Assessment & Plan: Continue synthroid Old LA (myocardial infarction) 11/01/2013 Last Assessment & Plan: [...] as of this encounter (statuses as of 09/06/2024) Resolved Problems Problem Noted Date Diagnosed Date [...] use aero chamber. Test performed by Flex TECHNICAL SUPPORT MANAGER CPFT Last Assessment & Plan: O2 stable [...] use aero chamber. Test performed by Flex TECHNICAL SUPPORT MANAGER CPFT COPD, group B, by GOLD 2017 [...] COPD, moderate 04/07/2012 10/05/2012 Overview: PFT 03/2008 [facility] COPD, SEVERE 04/07/2012 05/04/2019 Overview: PER COPD PROTOCOL #24. PFT 03/2008 [facility] LAST PFT -06/07/12 Gastroesophageal reflux dise ase with esophagitis 04/30/2009 01/14/2022 Overview: mild COPD with emphysema 10/05/20 12 documented as of this encounter (statuses as of 09/06/2024) Immunizations Name Administration Dates Next Due COVID-19 mRNA, LNP-s, No Pre serve, 2-Dose Series ([employer]) 09/26/2022,11/18/2021,04/04/2021,02/28 COVID-19, MRNA-LNP, 23-24, P F, 30 MCG/0.3 mL, 12 YRS AND ABOVE, IM (ENDOGENX-Comirnat) 10/21/2023 Covid-19, Mrna, Lnp-s, Pf, B ivalent, 30 Mcg, IM, 12 yrs and above (ImpactRx) 09/26/2022 HEPATITIS B VACCINE, RECOMB, 20 MCG/ML, [...] encounter Miscellaneous Notes * Telephone Encounter - Bree Kay LPN - 09/06/2024 1:58 PM EDT Marisa Santiago was referred as a potential candidate for enrollment for [facility]. A review of this chart was completed and: Marisa does not meet criteria for enrollment into [facility]. Referral Source: Monthly Proactive Eligibility List Criteria for Ineligibility: Not Located in Service Area Referring care team was notified via : [employer] communication Recently graduated [employer] no new concerns documented in this encounter Plan of Treatment Upcoming Encounters Date Type Department Care Team (Late st Contact Info) Description 09/09/2024 11:00 AM EDT Office Visit Family Practice [facility] [address] [place] [address] Ludy Jacobs CRNP [address] [place] [address] 09/12/2024 8:20 AM EDT Office Visit Pulmonary Medicine, [facility] [address] [place] [address] Sony Duong MD [address] [place] [address] 10/21/2024 3:00 PM EST Telemedicine Psychiatry [place] [facility] [address] [place] [address] Codi Reardon CRNP [address] [place] [address] 11/02/2024 2:40 PM EST Office Visit Family Practice [facility] [address] [place] [address] Ludy Jacobs CRNP [address] [place] [address] 11/08/2024 2:00 PM EST Telemedicine [facility] [place] [address] [place] [address] [place] [address], Pharmacist Cardiology [facility] [address] [place] [address] 02/13/2025 3:30 PM EDT Telemedicine Care at Home [address] [place] [address] Lulu Yee PA-C [address] [place], [place] [id number] Scheduled Procedures Name Priority Associated Diagnoses Date/Ti me COLONOSCOPY FLEXIBLE PROXIMAL DIAGNOSTIC Recall History of colon polyps Health Maintenance Due Date Last Done Comments Alpha-1 Antitrypsin 1982 HPV/Co-Test 1994 Cologuard 2009 Fecal Occult Blood Test 2009 Sigmoidoscopy 2009 DISCUSS TOBACCO CESSATION (REFER TO SMARTSET #3291) 04/04/2020 04/04/2019, 10/05/2018 Zoster Vaccines (2 of 2) 03/06/2021 01/09/2021 CKD PHOS USE SMARTSET 45806 03/29/2022 03/29/2021, 0 03/28/2021 Albumin/Creatinine Ratio 09/29/2023 09/29/2022, 05/0 03/2021 Mammogram 03/02/2024 03/02/2023, 02/21, 11/04/2016, Additional history exists Depression Monitoring 07/02/2024 07/02/2023 COVID-19 Vaccine ( season) 2024 10/21/2023, 09/26/2022, 09/26/2022, Additional history exists Cervical Cancer Screening 12/04/2024 Pap Smear 12/04/2024 12/04/2021, 02/21, 03/03/2016, Additional history exists GFR 01/30/2025 08/02/2024, 06/0 04/2024, 04/05/2024, Additional history exists CKD HGB USE SMARTSET 64164 08/02/202508/02, 08/02/2024, 04/28/2024, Additional history exists O2 [...] Agents on File Name Relationship Healthcare Agent [facility] p Communication Lopez Santiago Spouse First Alternate Health Care Agent [place] Adult Child Health Care Agent Care Teams Account Solutions Analyst Relationship Specialty Start Date End Date Ludy Jacobs CRNP [address] [place] [address] PCP - General Nurse Practitioner 04/20/24 documented as of this encounter
--- OUTSIDE RECORDS SUMMARY | 2024-09-18 23:49 | External Medical Summary | Summary of Care ---
Author Name Unknown Organization [facility] Address [address] [facility] [place] [address] Phone [phone] Care Team Providers Care Manager Rehab Name Role Phone Ludy Jacobs Zeina LY Primary Care Provider Encounter Details Date Type Department Care Team (Late st Contact Info) Description 09/05/2024 Population Health External Data Unspecified Department Allergies Active Allergy Reactions Criticality Noted Date Comments Adhesive Tape 10/12/2019 Other reaction(s): BANDAIDS SKIN ABRASION Colchicine 05/08/2022 N/v/d Rosuvastatin 04/02/2021 Went into kidney failure Demerol 08/11/2012 Depression Ibuprofen 04/02/2021 Meperidine And Related 09/28/2002 depression Nsaids 04/02/2021 Sulfa Antibiotics Rash 07/09/2001 Ketorolac Tromethamine Medium 04/04/2021 documented as of this encounter (statuses as of 09/05/2024) Medications Medication Sig Dispensed Refills Start Date [...] Documents, Reported on 12/24/2022 Nebulizers (NEBULIZER COMPRESSOR) [facility] Inhale via nebulizer. Along with supply . Use as directed. Dx code- J44.9 and J43.9 1 Each 10/05/2018 Active aspirin enteric coated 81 MG TBEC Take 1 Tablet by mouth every morning. Active Acetaminophen 325 MG Oral Tablet (Tylenol) Take 1 Tablet by mouth every 6 hours as needed. Active Nebulizer DeviceIndications:CO PD, group C, 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 ([facility]),Chronic hypoxemic respiratory failure ([facility]) Use with nebulized medications 1 Each 07/24/2022 Active Full Kit Nebulizer SetIndications:COPD, group C, 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 ([facility]),Chronic hypoxemic respiratory failure ([facility]) Use with nebulizer 1 Each 07/24/2022 Active Syringe 25G X 1-1/2" 3 ML Use for intramuscular B12 injection 1 Each 11 10/02/2022 Active Albuterol Sulfate (2.5 MG/3ML) 0.083% Inhalation Nebulization Solution (Proventil)Indicatio ns:COPD, group D, 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 ([facility]) Inhale 1 Vial via nebulizer [...] Oral Tablet (sacubitril-valsarta n 24-26 mg per tab)Indications:Entry Specialist darius combined systolic and diastolic congestive heart failure (HCC),HFrEF (heart failure with reduced ejection fraction) ([facility]) Take 1 Tablet by mouth [...] Tablet Extended Release 24 Hour (toPROL XL)Indications:Old ID (myocardial infarction) TAKE 1 AND 1/2 TABLETS [...] COPD, group C, 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 ([facility]) Inhale 2 Puffs by mouth [...] as of this encounter (statuses as of 09/05/2024) Active Problems Problem Noted Date Diagnosed Date [...] noted above Atherosclerotic heart diseas e of [place] coronary artery with other forms of angina [...] scheduled with [facility] pain clinic [place] 07/02. Statin intolerance 01/24/2022 Osteopenia 01/08/2022 LYNDON [...] use aero chamber. 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 Took high dose replacement. Due to repeat. Coronary artery disease invo lving [place] coronary artery of [place] heart without angina pectoris 11/12/2015 Last Assessment & Plan: Stable no angina -continue ASA, metoprolol xl, repatha. Can't tolerate delgado d/t low bp Dyslipidemia, goal LDL below 70 11/12/2015 Sicca syndrome 12/29/2014 Acquired hypothyroidism 12/29/2014 Last Assessment & Plan: Continue synthroid Old ID (myocardial infarction) 11/01/2013 Last Assessment & Plan: [...] as of this encounter (statuses as of 09/05/2024) Resolved Problems Problem Noted Date Diagnosed Date [...] use aero chamber. Test performed by Flex MARKETING PROJECT SPECIALIST CPFT Last Assessment & Plan: O2 stable [...] COPD, moderate 04/07/2012 10/05/2012 Overview: PFT 03/2008 [facility] COPD, SEVERE 04/07/2012 05/04/2019 Overview: PER COPD PROTOCOL #24. PFT 03/2008 [facility] LAST PFT -06/07/12 Gastroesophageal reflux dise ase with esophagitis 04/30/2009 01/14/2022 Overview: mild COPD with emphysema 10/05/20 12 documented as of this encounter (statuses as of 09/05/2024) Immunizations Name Administration Dates Next Due COVID-19 mRNA, LNP-s, No Pre serve, 2-Dose Series ([employer]) 09/26/2022,11/18/2021,04/04/2021,02/28 COVID-19, MRNA-LNP, 23-24, P F, 30 MCG/0.3 mL, 12 YRS AND ABOVE, IM ([employer]) 10/21/2023 Covid-19, Mrna, Lnp-s, Pf, B ivalent, [...] Description 09/09/2024 11:00 AM EDT Office Visit [facility] [address] [facility] [place] [address] Ludy Jacobs CRNP [address] [facility] [address] 10/21/2024 3:00 PM EST Telemedicine Psychiatry [place] [facility] [address] [place] [address] Codi Reardon CRNP [address] [place] [address] 11/02/2024 2:40 PM EST Office Visit [facility] [address] [facility] [place] [address] Ludy Jacobs CRNP [address] [facility] [address] 11/08/2024 2:00 PM EST Telemedicine Cardiology [facility] [place] [address] [place] [address] [facility], Pharmacist Cardiology [facility] [address] [place] [address] 02/13/2025 3:30 PM EDT Telemedicine Care at Home [address] [place], [place] [phone] Lulu Yee PA-C [address] [place] [address] Scheduled Procedures Name Priority Associated Diagnoses Date/Ti me COLONOSCOPY FLEXIBLE PROXIMAL DIAGNOSTIC Recall History of colon polyps Health Maintenance Due Date Last Done Comments Alpha-1 Antitrypsin 1982 HPV/Co-Test 1994 Cologuard 2009 Fecal Occult Blood Test 2009 Sigmoidoscopy 2009 DISCUSS TOBACCO CESSATION (REFER TO SMARTSET #3291) 04/04/2020 04/04/2019, 10/05/2018 Zoster Vaccines (2 of 2) 03/06/2021 01/09/2021 CKD PHOS USE SMARTSET 17731 03/29/2022 03/29/2021, 0 03/28/2021 Albumin/Creatinine Ratio 09/29/2023 09/29/2022, 050 03/2021 Mammogram 03/02/2024 03/02/2023, 02/21, 11/04/2016, Additional history exists Depression Monitoring 07/02/2024 07/02/2023 COVID-19 Vaccine ( season) 2024 10/21/2023, 09/26/2022, 09/26/2022, Additional history exists Cervical Cancer Screening 12/04/2024 Pap Smear 12/04/2024 12/04/2021, 02/21, 03/03/2016, Additional history exists GFR 01/30/2025 08/02/2024, 06/0 04/2024, 04/05/2024, Additional history exists CKD HGB USE SMARTSET 73567 08/02/202508/02, 08/02/2024, 04/28/2024, Additional history exists O2 [...] Agents on File Name Relationship Healthcare Agent [facility] p Communication Lopez Santiago Spouse [facility] Health Care Agent [place] Adult Child Health Care Agent Care Teams Manager Rehab Relationship Specialty Start Date End Date Ludy Jacobs CRNP [address] [place] [address] PCP - General Nurse Practitioner 04/20/24 documented as of this encounter
--- OUTSIDE RECORDS SUMMARY | 2024-09-18 23:49 | External Medical Summary | Summary of Care ---
Author Name Unknown Organization [facility] Address [address] [address] Phone [phone] Care Team Providers Care Senior Cost Analyst Name Role Phone Ludy Jacobs Zeina LY Primary Care Provider Reason for Visit * Reason Onset Date Comments Precert Approved 08/03/2024 Repatha 140mg/m L sureclick pen (new) Encounter Details Date Type Department Care Team (Late st Contact Info) Description 08/03/2024 Telephone Cardiology, [place] [address] [facility] [place] [id number] [facility] [address] [facility] [place] [id number] Precert Approved (Repatha 140mg/mL surecli... Allergies Active Allergy Reactions Criticality Noted Date Comments Adhesive Tape 10/12/2019 Other reaction(s): BANDAIDS SKIN ABRASION Colchicine 05/08/2022 N/v/d Rosuvastatin 04/02/2021 Went into kidney failure Demerol 08/11/2012 Depression Ibuprofen 04/02/2021 Meperidine And Related 09/28/2002 depression Nsaids 04/02/2021 Sulfa Antibiotics Rash 07/09/2001 Ketorolac Tromethamine Medium 04/04/2021 documented as of this encounter (statuses as of 08/31/2024) Medications Medication Sig Dispensed Refills Start Date End Date Status VALVED HOLDING CHAMBER DEVIIndications:CO PD with emphysema ([facility]) to be used with inhalers [...] COPD, group C, 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 ([facility]),Chronic hypoxemic respiratory failure ([facility]) Use with nebulized medications 1 Each 2 Active Full Kit Nebulizer SetIndications:CATALOG LIBRARY ASSISTANT D, group C, 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 ([facility]),Chronic hypoxemic respiratory failure ([facility]) Use with nebulizer 1 Each 2 Active Syringe 25G X 1-1/2" 3 ML Use for intramuscular B12 injection 1 Each 11 2 Active Albuterol Sulfate (2.5 MG/3ML) 0.083% Inhalation Nebulization Solution (Proventil)Indicat ions:COPD, group D, 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 ([facility]) Inhale 1 Vial via nebulizer [...] (HCC),HFrEF (heart failure with reduced ejection fraction) ([facility]) Take 1 Tablet by mouth [...] Tablet Extended Release 24 Hour (toPROL XL)Indications:Old [place] (myocardial infarction) TAKE 1 AND 1/2 TABLETS [...] s:COPD, group C, 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 ([facility]) Inhale 2 Puffs by mouth [...] mgIndications:COPD, group D, 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 ([facility]) 2.5 mg NEBULIZER ONCE PRN 04/28/2024 04/28/2025 Acti ve documented as of this encounter (statuses as of 08/31/2024) Active Problems Problem Noted Date Diagnosed Date [...] noted above Atherosclerotic heart diseas e of [place] coronary artery with other forms of angina pectoris 11/12/2022 Chronic hypoxemic respiratory failure 10/30/2022 Last Assessment & Plan: O2 stable on 2 L PTSD (post-traumatic stress disorder) 10/30/2022 RSD (reflex sympathetic dystrophy) 10/30/2022 Neuropathic pain 07/02/2022 Last Assessment & Plan: Continue lyrica AC joint arthropathy 06/11/2022 Tendinosis of rotator cuff 06/11/2022 Chronic pain 03/04/2022 Last Assessment & Plan: Appointment scheduled with [facility] pain clinic [place] 07/02. Statin intolerance 01/24/2022 Osteopenia 01/08/2022 LYNDON [...] use aero chamber. 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 Took high dose replacement. Due to repeat. Coronary artery disease invo lving [place] coronary artery of [place] heart without angina pectoris 11/12/2015 Last Assessment & Plan: Stable no angina -continue ASA, metoprolol xl, repatha. Can't tolerate delgado d/t low bp Dyslipidemia, goal LDL below 70 11/12/2015 Sicca syndrome 12/29/2014 Acquired hypothyroidism 12/29/2014 Last Assessment & Plan: Continue synthroid Old [place] (myocardial infarction) 11/01/2013 Last Assessment & Plan: [...] as of this encounter (statuses as of 08/31/2024) Resolved Problems Problem Noted Date Diagnosed Date [...] COPD, moderate 04/07/2012 10/05/2012 Overview: PFT 03/2008 [facility] COPD, SEVERE 04/07/2012 05/04/2019 Overview: PER COPD PROTOCOL #24. PFT 03/2008 [facility] LAST PFT -06/07/12 Gastroesophageal reflux dise ase with esophagitis 04/30/2009 01/14/2022 Overview: mild COPD with emphysema 10/05/20 12 documented as of this encounter (statuses as of 08/31/2024) Immunizations Name Administration Dates Next Due COVID-19 mRNA, LNP-s, No Pre serve, 2-Dose Series ([employer]) 09/26/2022,11/18/2021,04/04/2021,02/28 COVID-19, MRNA-LNP, 23-24, P F, 30 MCG/0.3 mL, 12 YRS AND ABOVE, IM ([employer]) 10/21/2023 Covid-19, Mrna, Lnp-s, Pf, B ivalent, 30 Mcg, IM, 12 yrs and above ([employer]) 09/26/2022 HEPATITIS B VACCINE, RECOMB, 20 MCG/ML, [...] the hospital. Is willing to speak with [facility] regarding financial assistance and requests a call to discuss next week. Daily Henderson, Talya Clinical Pharmacist - [facility] 08/31/2024 2:49 PM * Telephone Encounter - Daily Henderson RPh - 08/23/2024 4:01 PM EDT Patient's co-pay is $389.37. [facility] assessing for assistance options but was unable to reach patient. Called patient today and she reports has been away dealing with loss of family member, but plans to return [facility] call regarding Repatha cost tomorrow. * Telephone Encounter - Cheri Yee [facility] - 08/03/2024 9:35 AM EDT PCSK-9 Inhibitor [...] mg/dL Route referral message to [facility]IOLOG[facility] PHARMAC[facility] [[id number]]. Please submit to BOTH primary insurance and secondary insurance (ex PACE/PACENET) if applicable. documented in this encounter Plan of Treatment Upcoming Encounters Date Type Department Care Team (Late st Contact Info) Description 10/21/2024 3:00 PM EST Telemedicine Psychiatry [facility] [address] [place] [phone] Codi Reardon CRNP [address] [place] [address] 11/02/2024 2:40 PM EST Office Visit Family [facility] [address] [place] [id number] Ludy Jacobs CRNP [address] [place] [address] 11/08/2024 2:00 PM EST Telemedicine Cardiology [facility] [place] [address] [place], [place] [id number] [place] [id number], Pharmacist Cardiology [facility] [address] [place], [place] [id number] 02/13/2025 3:30 PM EDT Telemedicine Care at Home [address] [place], [place] [id number] Lulu Yee PA-C [address] [place], [place] [id number] Scheduled Procedures Name Priority Associated Diagnoses Date/Ti me COLONOSCOPY FLEXIBLE PROXIMAL DIAGNOSTIC Recall History of colon polyps Health Maintenance Due Date Last Done Comments Alpha-1 Antitrypsin 1982 HPV/Co-Test 1994 Cologuard 2009 Fecal Occult Blood Test 2009 Sigmoidoscopy 2009 DISCUSS TOBACCO CESSATION (REFER TO SMARTSET #3291) 04/04/2020 04/04/2019, 10/05/2018 Zoster Vaccines (2 of 2) 03/06/2021 01/09/2021 CKD PHOS USE SMARTSET 63807 03/29/2022 03/29/2021, 0 03/28/2021 Albumin/Creatinine Ratio 09/29/2023 09/29/2022, 05/0 03/2021 Mammogram 03/02/2024 03/02/2023, 02/21, 11/04/2016, Additional history exists Depression Monitoring 07/02/2024 07/02/2023 COVID-19 Vaccine ( season) 2024 10/21/2023, 09/26/2022, 09/26/2022, Additional history exists Cervical Cancer Screening 12/04/2024 Pap Smear 12/04/2024 12/04/2021, 02/21, 03/03/2016, Additional history exists GFR 01/30/2025 08/02/2024, 06/0 04/2024, 04/05/2024, Additional history exists CKD HGB USE SMARTSET 02754 08/02/202508/02, 08/02/2024, 04/28/2024, Additional history exists O2 ASSESSMENT COMPLETED IN PAST YEAR FOR COPD 08/02/2025 08/02/2024 TSH 08/02/2025 08/02/2024, 06/0 04/2024, 03/06/2023, Additional history exists Colonoscopy 04/30/2026 04/30/2023, 0 06/2023, 11/28/2019, Additional history exists Colorectal Cancer [...] Agents on File Name Relationship Healthcare Agent Relationshi p Communication Lopez Brown Spouse First Alternate Health Care Agent Alma Delia Adult Child Health Care Agent Care Teams Senior Cost Analyst Relationship Specialty Start Date End Date Ludy Jacobs CRNP [address] [place] [id number] PCP - General Nurse Practitioner 04/20/24 documented as of this encounter
[2024-09-18] MEDS: ALBUT/IPRATROP 3MG/0.5MG NEB 3 ML VIAL NEB STA (23:58)
[2024-09-18] MEDS: methylPREDNISolone 125 MG/2 ML VIAL IV STA (23:58)
--- NOTE | 2024-09-19 00:01 | Emergency Department Note ---
History of Present Illness General Chief complaint: Shortness of Breath/Dyspnea Stated complaint: SHORTNESS OF BREATH X COUPLE DAYS History of Present Illness This 59-year-old female with COPD and asthma continue to smoke presents ER complaining of cough, congestion, dyspnea for the past few days steadily getting worse. Patient states she has been too weak to eat or drink. Patient denies abdominal pain, headache, sore throat. Home Medications Medication Instructions Recorded Confirmed Type albuterol sulfate 90 mcg/actuation 2 puff inhalation Q4H PRN 03/10/22 09/19/24 History aerosol inhaler cough,SOB or wheezing aspirin 81 mg tablet,delayed 81 mg PO QAM 03/10/22 09/19/24 History release evolocumab 420 mg/3.5 mL 420 mg subcut Q30D 03/10/22 09/19/24 History subcutaneous wearable injector (Repatha Pushtronex) folic acid 1 mg tablet 1 mg PO QAM 03/10/22 09/19/24 History levothyroxine 75 mcg tablet 75 mcg PO QAM 03/10/22 09/19/24 History (Synthroid) lorazepam 0.5 mg tablet 0.5 mg PO DAILY PRN Anxiety 03/10/22 09/19/24 History metoprolol succinate 25 mg 25 - 50 mg PO UD 03/10/22 09/19/24 History tablet,extended release 24 hr omeprazole 20 mg capsule,delayed 20 mg PO BID 03/10/22 09/19/24 History release pregabalin 75 mg capsule 75 mg PO TID 03/10/22 09/19/24 History midodrine 2.5 mg tablet 2.5 mg PO TID@0800,1200,1700 #90 05/06/22 09/19/24 Rx tabs acetaminophen 325 mg tablet 325 mg PO Q6H PRN Fever Or Pain 10/19/22 09/19/24 History methocarbamol 500 mg tablet 500 mg PO TID PRN muscle spasms 10/19/22 09/19/24 History ondansetron HCl 4 mg tablet 4 mg PO Q8 PRN Nausea 10/19/22 09/19/24 History albuterol sulfate 2.5 mg/3 mL 2.5 mg continuous nebulization QID 06/22/23 09/19/24 History (0.083 %) solution for nebulization PRN Wheezing empagliflozin 25 mg tablet 25 mg PO QAM heart failure 01/21/24 09/19/24 History (Jardiance) paroxetine HCl 40 mg tablet (Paxil) 40 mg PO HS 01/21/24 09/19/24 History sacubitril 24 mg-valsartan 26 mg 1 tab PO BID 01/21/24 09/19/24 History tablet (Entresto) fluticasone 250 mcg-salmeterol 50 1 inh inhalation BID #60 ea 09/05/24 09/19/24 Rx mcg/dose blistr powdr for inhalation (Wixela Inhub) guaifenesin 600 mg tablet, 600 mg PO Q12 #30 tabs 09/05/24 09/19/24 Rx extended release 12 hr (Mucinex) oxycodone 5 mg tablet 5 mg PO Q4H PRN pain #15 tabs 09/05/24 09/19/24 Rx Allergies Allergy/AdvReac Type Severity Reaction Status Date / Time tramadol Allergy Severe Seizure Verified 02/23/24 07:31 adhesive Allergy Mild BANDAIDS : Verified 02/23/24 07:31 SKIN ABRASION ketorolac [From Toradol] Allergy Mild HX KIDNEY Verified 02/23/24 07:31 FAILURE adhesive tape Allergy Unknown SKIN TEARS Verified 02/23/24 07:31 ibuprofen Allergy Unknown HX KIDNEY Verified 02/23/24 07:31 FAILURE NSAIDS (Non-Steroidal Allergy Unknown HX KIDNEY Verified 02/23/24 07:31 Anti-Inflamma FAILURE Sulfa (Sulfonamide Allergy Unknown HIVES Verified 02/23/24 07:31 Antibiotics) meperidine AdvReac Unknown NOT A Verified 02/23/24 07:31 VERIFIED RXN: MOOD SWINGS prednisone AdvReac Unknown Patient Verified 02/23/24 07:31 Reports Contraindication in Kidney Failure/SEE NOTES rosuvastatin [From Crestor] AdvReac Unknown Weakness, Verified 02/23/24 07:31 RHABDOMYLOSIS, ACUTE RENAL FAILURE Past Med/Surg History Problem List (Updated 09/19/24 @ 02:37 by Micky Owens MD) COPD exacerbation Asthma exacerbation in COPD (Acute) Acute metabolic encephalopathy Left lower lobe pneumonia Encounter for pre-operative examination Acute on chronic heart failure with reduced ejection fraction and diastolic dysfunction CKD (chronic kidney disease), stage III (Acute) Acute on chronic respiratory failure with hypoxia DVT prophylaxis Pulmonary nodule Pericardial effusion Hypotension Bacteremia Prolonged QT interval Hypertension Diarrhea (Acute) Lab test negative for COVID-19 virus (Acute) Nausea & vomiting (Acute) Colitis (Acute) Acute dehydration (Acute) Electrolyte abnormality Hypomagnesemia (Acute) Nausea and vomiting (Acute) Hypokalemia (Acute) Generalized abdominal pain (Acute) Pericardial effusion Left ventricular systolic dysfunction UNRULY (acute kidney injury) Chronic pericarditis with effusion UTI (urinary tract infection) Acute respiratory failure with hypercapnia Acute exacerbation of chronic obstructive pulmonary disease (Acute) Acute respiratory distress (Acute) Influenza A (Acute) Hypotension Volume overload Acute respiratory failure with hypoxia Anxiety Depression Electrolyte abnormality Transaminitis DVT prophylaxis COPD (chronic obstructive pulmonary disease) (Acute) HLD (hyperlipidemia) Rhabdomyolysis Acute renal failure Pulmonary nodule Nausea (Acute) Hypokalemia (Acute) COPD exacerbation (Acute) Wrist pain, right (Acute) Seizure (Acute) Influenza A (Acute) Hypoxia (Acute) Hypokalemia (Acute) Hypokalemia (Acute) Hypokalemia (Acute) COPD exacerbation (Acute) COPD exacerbation (Acute) Bronchitis (Acute) Asthma exacerbation in COPD (Acute) Acute bronchitis (Acute) Acute bronchitis (Acute) Cellulitis (Acute) CAD (coronary artery disease) Hypothyroidism HFrEF (heart failure with reduced ejection fraction) hx Medical History Emphysema/COPD daily nebulizer, and prn neb and inh; f/u pulmonology at [facility] and [place] 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 History of colitis Decreased mobility lt arm>CRPS PTSD (post-traumatic stress disorder) Unique anesthetic considerations on preoperative anesthesia assessment high level anxiety when sedated, hx intubation w Flu A....PTSD, "gets scared when put to sleep" History of colon polyps Low blood pressure currently on midodrine; f/u [facility] at and [place] History of influenza INFLUENZA A, February 2022 - [facility] hospitalization, "intubated while in the hospital" Pain syndrome, chronic chronic regional pain syndrome : left arm/received lidocaine injections in [place]/every three months/due may 2023. left limb restriction. History of renal failure "from her crestor medication" Oxygen dependent 2 L o2 continuous. Emphysema lung Statin intolerance Chronic pain see pain clinic for lt arm and neck, @[facility] Anxiety Shortness of breath chronic Neurofibromatosis Hypokalemia HX / CAN NOT TOLERATE PO POTASSIUM PILLS DUE TO GASTROPARESIS Hx of bronchitis Myocardial infarction 2010 - CHEST PAIN -[facility] ER AND HAD HEART CATH WITH ONE STENT (BARE METAL) FOLLOW WITH [facility] Seizure 2013 ONLY HAD ONE -- ADMITTED TO [facility] --- METABOLIC RELATED ---- NO MEDICATION Pneumothorax AGE 24 - SURGERY TO REPAIR THE LEFT SIDE AND CHEMICAL TREATMENT ON THE RIGHT SIDE AT [facility] Gastroparesis Cavernous hemangioma of brain stable Surgical History Hx of right cataract extraction History of heart artery stent 2010, [place], [facility], x1 stent; f/u [facility] at History of endoscopy Hx of colonoscopy Hx of vaginal surgery 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 Hx of section X2 Hx of cardiac cath 2010, [place], [facility], x1 stent; f/u [facility] History of hernia repair UMBILICAL Family History Father Lung disease Severe emphysema, pneumothorax Brother Family history of diabetes mellitus Brother Family history of diabetes mellitus Family/Other Family history of cancer Aunt Family history of colonic polyps Grandfather Family history of lymphoma Social History Smoking Status: Current some day smoker Tobacco Type: Cigarettes Age Started Using Tobacco: 11; Age Quit Using Tobacco: 53; packs per day: 1; Cigarettes Per Day: has 1 occasionally; Second Hand Exposure: Yes; Do You Dip or Chew Tobacco: No; Hx Alcohol Use: No Hx Substance Use: No Preferred Language: South Korean Communication Ability: Effective 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: No Beliefs That Will Affect Care: None marital status: Current Living Situation: Spouse How many Children do You have: 3 Other Information That Helps Us Care for You: No Feels Safe at Home: Yes Safety Concerns: Feels Safe At This Time Assistive Devices: Denture - Upper, Denture - Lower and Oxygen - Continuous Review of Systems A total of 10 systems reviewed and were otherwise negative Physical Exam Vital Signs Vital Signs - 24 hr 09/18/24 23:46 09/18/24 23:47 09/18/24 23:48 Temperature 36.9 C Temperature Source Oral Pulse Rate 85 83 Pulse Rate [Apical] Pulse Rate from SpO2 Sensor Respiratory Rate 24 Respiratory Effort / Characteristics Non-Labored Spontaneous Respiratory Depth Normal Respiratory Pattern Regular Blood Pressure 124/87 124/87 Blood Pressure [Right Arm] Blood Pressure Mean 99 96 Blood Pressure Mean [Right Arm] Pulse Oximetry 98 Oxygen Delivery Method Room Air Oxygen Flow Rate Sepsis Recent Fever Within 48 Hours No Sepsis New/Unexplained Change in Mental Status N/A Sepsis Action Taken by Nursing No Action Required 09/18/24 23:48 09/19/24 00:06 09/19/24 00:12 Temperature Temperature Source Pulse Rate 98 H 92 H Pulse Rate [Apical] Pulse Rate from SpO2 Sensor 83 Respiratory Rate 14 18 Respiratory Effort / Characteristics Respiratory Depth Respiratory Pattern Blood Pressure 124/87 Blood Pressure [Right Arm] Blood Pressure Mean 96 Blood Pressure Mean [Right Arm] Pulse Oximetry 99 100 Oxygen Delivery Method Room Air Oxygen Flow Rate Sepsis Recent Fever Within 48 Hours Sepsis New/Unexplained Change in Mental Status Sepsis Action Taken by Nursing 09/19/24 00:21 09/19/24 00:30 09/19/24 00:42 Temperature Temperature Source Pulse Rate 88 87 107 H Pulse Rate [Apical] Pulse Rate from SpO2 Sensor 88 86 Respiratory Rate 21 17 11 L Respiratory Effort / Characteristics Respiratory Depth Respiratory Pattern Blood Pressure Blood Pressure [Right Arm] Blood Pressure Mean Blood Pressure Mean [Right Arm] Pulse Oximetry 97 97 Oxygen Delivery Method Oxygen Flow Rate Sepsis Recent Fever Within 48 Hours Sepsis New/Unexplained Change in Mental Status Sepsis Action Taken by Nursing 09/19/24 00:45 09/19/24 00:46 09/19/24 00:47 Temperature Temperature Source Pulse Rate 103 H Pulse Rate [Apical] 87 Pulse Rate from SpO2 Sensor 102 H Respiratory Rate 24 14 Respiratory Effort / Characteristics Respiratory Depth Respiratory Pattern Regular Blood Pressure 111/81 Blood Pressure [Right Arm] 111/81 Blood Pressure Mean 97 Blood Pressure Mean [Right Arm] 91 Pulse Oximetry 98 97 Oxygen Delivery Method Nasal Cannula Oxygen Flow Rate 2 Sepsis Recent Fever Within 48 Hours Sepsis New/Unexplained Change in Mental Status Sepsis Action Taken by Nursing 09/19/24 00:54 09/19/24 01:00 09/19/24 01:15 Temperature Temperature Source Pulse Rate 81 96 H Pulse Rate [Apical] Pulse Rate from SpO2 Sensor 79 88 Respiratory Rate 18 31 H Respiratory Effort / Characteristics Respiratory Depth Respiratory Pattern Blood Pressure 106/70 Blood Pressure [Right Arm] Blood Pressure Mean 83 Blood Pressure Mean [Right Arm] Pulse Oximetry 98 98 Oxygen Delivery Method Oxygen Flow Rate Sepsis Recent Fever Within 48 Hours Sepsis New/Unexplained Change in Mental Status Sepsis Action Taken by Nursing 09/19/24 01:24 09/19/24 01:30 09/19/24 01:30 Temperature Temperature Source Pulse Rate 95 H Pulse Rate [Apical] Pulse Rate from SpO2 Sensor 93 H Respiratory Rate 14 Respiratory Effort / Characteristics Respiratory Depth Respiratory Pattern Blood Pressure 118/75 118/75 Blood Pressure [Right Arm] Blood Pressure Mean 79 79 Blood Pressure Mean [Right Arm] Pulse Oximetry 99 Oxygen Delivery Method Oxygen Flow Rate Sepsis Recent Fever Within 48 Hours Sepsis New/Unexplained Change in Mental Status Sepsis Action Taken by Nursing 09/19/24 01:30 09/19/24 01:45 Temperature Temperature Source Pulse Rate 82 Pulse Rate [Apical] 80 Pulse Rate from SpO2 Sensor 82 Respiratory Rate 26 H 24 Respiratory Effort / Characteristics Respiratory Depth Respiratory Pattern Blood Pressure Blood Pressure [Right Arm] 118/75 Blood Pressure Mean Blood Pressure Mean [Right Arm] 89 Pulse Oximetry 99 98 Oxygen Delivery Method Nasal Cannula Oxygen Flow Rate 2 Sepsis Recent Fever Within 48 Hours Sepsis New/Unexplained Change in Mental Status Sepsis Action Taken by Nursing VITALS: Vitals are noted on the nurse's note and reviewed by myself. Vital signs stable. GENERAL: Pleasant female coughing with tobacco odor, in no acute distress, nondiaphoretic, well-developed well-nourished. SKIN: The skin was without rashes, erythema, edema, or bruising. There is no tenting of the skin. Capillary reflex less than 2 seconds. HEAD: Normocephalic atraumatic. EARS: External auditory canals clear EYES: Pupils equal round and reactive to light and accommodation. Conjunctivae without injection, sclerae without icterus. Extraocular movements intact. NOSE: Patent, no discharge. MOUTH: Mucous membranes moist. Pharynx without erythema or exudate. Uvula midline. Airway patent. Tongue does not deviate. NECK: Supple without nuchal rigidity. No lymphadenopathy. No thyromegaly. Cervical spine is nontender. No JVD. HEART: Regular rate and rhythm LUNGS: Diffuse inspiratory and end expiratory wheezes, No retractions or accessory muscle use. ABDOMEN: Positive bowel sounds x 4. Normal tympanic percussion. Soft, nontender, without masses or organomegaly. Crandall sign negative. No guarding or rebound tenderness. No CVA tenderness MUSCULOSKELETAL: No muscle atrophy, erythema, or edema noted. NEURO: Patient was alert and oriented to person place and time. Normal sensation to light and sharp touch. No focal neurological deficits. Course Administered Medications Albuterol (Albut/Ipratrop 3mg/0.5mg Neb 3 Ml Vial) 3 ml NEB QIDR [facility]; Protocol Stop: 10/19/24 06:59 Last Admin: 09/19/24 20:18 Dose: 3 ml Documented By: Admin: 09/19/24 15:32 Dose: 3 ml Documented By: Admin: 09/19/24 11:02 Dose: 3 ml Documented By: Admin: 09/19/24 07:06 Dose: 3 ml Documented By: AFSHAN Aspirin (Aspirin 81 Mg E[facility]ab) [facility] [place]: 10/19/24 08:59 Last Admin: 09/19/24 08:46 Dose: 81 mg Documented By: AURA Doxycycline Hyclate (Doxycycline Hyclate 100 Mg Cap) 100 mg PO BID [facility] Stop: 09/26/24 08:59 Last Admin: 09/19/24 20:06 Dose: 100 mg Documented By: Admin: 09/19/24 08:47 Dose: 100 mg Documented By: AURA Empagliflozin (Empagliflozin 25 Mg Tab) [facility] Stop: 10/19/24 08:59 Last Admin: 09/19/24 08:46 Dose: 25 mg Documented By: AURA Enoxaparin Sodium (Enoxaparin Inj 40 Mg/0.4 Ml Syr) 40 mg SQ Q24H [facility] Stop: 10/19/24 08:59 Last Admin: 09/19/24 08:47 Dose: 40 mg Documented By: AURA Fluticasone/Vilanterol (Fluticasone/Vilanterol 200/25mcg 14 Puffs/Inhaler) 1 puffs INH DAILY [facility] Stop: 10/19/24 08:59 Last Admin: 09/19/24 08:45 Dose: 1 puffs Documented By: AURA Folic Acid (Folic Acid 1 Mg Tab) 1 mg PO QAM [facility] Stop: 10/19/24 08:59 Last Admin: 09/19/24 08:47 Dose: 1 mg Documented By: AURA Guaifenesin (Guaifenesin 600 Mg Tabcr) 600 mg PO Q12 [facility] Stop: 10/19/24 08:59 Last Admin: 09/19/24 20:09 Dose: 600 mg Documented By: Admin: 09/19/24 08:47 Dose: 600 mg Documented By: AURA Guaifenesin/Dextromethorphan (Guaifenesin/Dextrom Syrup 100mg/10mg 5ml Udc) 5 ml PO Q6H PRN PRN Reason: Cough Stop: 10/19/24 10:49 Last Admin: 09/19/24 20:10 Dose: 5 ml Documented By: SONYA Levothyroxine Sodium (Levothyroxine Sodium 75 Mcg Tablet) 75 mcg PO DAILYBB [facility] Stop: 10/19/24 06:29 Last Admin: 09/19/24 05:27 Dose: 75 mcg Documented By: ADDISON Lorazepam (Lorazepam 0.5 Mg Tab) 0.5 mg PO DAILY PRN PRN Reason: Anxiety Stop: 10/19/24 03:11 Last Admin: 09/19/24 04:09 Dose: 0.5 mg Documented By: ADDISON Magnesium Oxide (Magnesium Oxide 400 Mg Tab) 400 mg PO BID [facility] Stop: 10/19/24 08:59 Last Admin: 09/19/24 20:08 Dose: 400 mg Documented By: Admin: 09/19/24 08:44 Dose: 400 mg Documented By: AURA Methocarbamol (Methocarbamol 500 Mg Tablet) 500 mg PO TID PRN PRN Reason: muscle spasms Stop: 10/19/24 03:11 Last Admin: 09/19/24 20:10 Dose: 500 mg Documented By: Admin: 09/19/24 08:45 Dose: 500 mg Documented By: Admin: 09/19/24 05:27 Dose: 500 mg Documented By: ADDISON Metoprolol Succinate (Metoprolol Succ 50mg Ext Rel Tab) 50 mg PO QAM [facility] Stop: 10/19/24 08:59 Last Admin: 09/19/24 08:59 Dose: Not Given Documented By: AURA Metoprolol Succinate (Metoprolol Succ 25mg Ext Rel Tab) 25 mg PO HS [facility] Stop: 10/19/24 20:59 Last Admin: 09/19/24 19:34 Dose: Not Given Documented By: SONYA Midodrine (Midodrine Hcl 2.5 Mg Tab) 2.5 mg PO TID@0800,1200,1700 [facility] Stop: 10/19/24 07:59 Last Admin: 09/19/24 16:42 Dose: 2.5 mg Documented By: Admin: 09/19/24 12:16 Dose: 2.5 mg Documented By: Admin: 09/19/24 08:47 Dose: 2.5 mg Documented By: AURA Oxycodone HCl (Oxycodone Hcl Ir 5 Mg Tab (Immediate Release)) 5 mg PO Q4H PRN PRN Reason: pain Stop: 10/03/24 03:11 Last Admin: 09/19/24 16:44 Dose: 5 mg Documented By: Admin: 09/19/24 09:47 Dose: 5 mg Documented By: Admin: 09/19/24 04:08 Dose: 5 mg Documented By: ADDISON Pantoprazole Sodium (Pantoprazole 40 Mg Tab) 40 mg PO BID [facility] Stop: 10/19/24 08:59 Last Admin: 09/19/24 20:07 Dose: 40 mg Documented By: Admin: 09/19/24 08:47 Dose: 40 mg Documented By: AURA Paroxetine HCl (Paroxetine Hcl 20 Mg Tab) 40 mg PO HS [facility] Stop: 10/19/24 20:59 Last Admin: 09/19/24 20:06 Dose: 40 mg Documented By: SONYA Pregabalin (Pregabalin 75 Mg Cap) 75 mg PO TID [facility] Stop: 10/19/24 08:59 Last Admin: 09/19/24 20:05 Dose: 75 mg Documented By: Admin: 09/19/24 13:36 Dose: 75 mg Documented By: Admin: 09/19/24 08:47 Dose: 75 mg Documented By: AURA Sacubitril/Valsartan (Valsartan/Sacubitril 26/24mg Tab) 1 tab PO BID [facility] Stop: 10/19/24 08:59 Last Admin: 09/19/24 08:46 Dose: 1 tab Documented By: AURA Discontinued Medications Albuterol (Albut/Ipratrop 3mg/0.5mg Neb 3 Ml Vial) 3 ml NEB NOW STA; Protocol Stop: 09/18/24 23:47 Last Admin: 09/18/24 23:58 Dose: 3 ml Documented By: ATIYA Doxycycline Hyclate (Doxycycline Hyclate 100 Mg Cap) 100 mg PO NOW STA Stop: 09/19/24 01:17 Last Admin: 09/19/24 01:33 Dose: 100 mg Documented By: ATIYA Guaifenesin/Dextromethorphan (Guaifenesin/Dextrom Syrup 100mg/10mg 5ml Udc) 5 ml PO NOW ONE Stop: 09/19/24 10:51 Last Admin: 09/19/24 11:42 Dose: 5 ml Documented By: AURA Methylprednisolone 40 mg/ (Syringe) 0.64 mls @ 1.5 mls/min IV Q12H [facility] Stop: 10/19/24 08:59 Last Admin: 09/19/24 08:45 Dose: 1.5 mls/min Documented By: AURA Methylprednisolone (Methylprednisolone 125 Mg/2 Ml Vial) 125 mg IV NOW STA Stop: 09/18/24 23:47 Last Admin: 09/18/24 23:58 Dose: 125 mg Documented By: ATIYA Miscellaneous (Remove Nicoderm Patch) 1 each N/A DAILY@0859 [facility] Stop: 09/19/24 09:00 Last Admin: 09/19/24 08:44 Dose: Not Given Documented By: AURA Nicotine (Nicotine 14 Mg/24 Hr Patch) 1 patch TD NOW STA Stop: 09/18/24 23:47 Last Admin: 09/19/24 01:35 Dose: Not Given Documented By: ATIYA Potassium Chloride (Potassium Chloride Crtab 20 Meq Tabcr) 20 meq PO NOW STA Stop: 09/19/24 01:01 Last Admin: 09/19/24 01:33 Dose: 20 meq Documented By: ATIYA Potassium Chloride (Potassium Chloride Crtab 20 Meq Tabcr) 20 meq PO NOW STA Stop: 09/19/24 02:18 Last Admin: 09/19/24 02:31 Dose: 20 meq Documented By: ATIYA Medical Decision Making Medical Records Attestation: I reviewed the patient's medical records. Home Medications Current Medication List: was personally reviewed by me Laboratory Data Attestation: I reviewed the patient's lab results. 09/19/24 06:44 09/19/24 06:44 Lab Results 09/18/24 09/19/24 09/19/24 Range/Units 23:58 00:00 00:31 WBC 9.11 (4.8-10.8) K/ul RBC 4.39 (4.20-5.40) M/uL Hgb 14.0 (12.0-16.0) g/dl Hct 42.4 (37.0-47.0) % MCV 96.6 (80.0-100.0) fL MCH 31.9 (25.0-34.0) pg MCHC 33.0 (32.0-36.0) g/dL RDW Std Deviation 48.5 H (36.4-46.3) fL RDW Coeff of Akiko 13.4 (11.5-14.5) % Plt Count 280 (130-400) K/uL MPV 9.7 (9.4-12.4) fL Immature Gran % (Auto) 0.3 % Neut % (Auto) 53.3 % Lymph % (Auto) 37.2 % Harper % (Auto) 6.1 % Eos % (Auto) 2.3 % Baso % (Auto) 0.8 % Neut # (Auto) 4.85 (1.40-6.50) K/uL Lymph # (Auto) 3.39 (1.20-3.40) K/uL Harper # (Auto) 0.56 (0.11-0.59) K/uL Eos # (Auto) 0.21 (0.00-0.50) K/uL Baso # (Auto) 0.07 (0.00-0.20) K/uL Immature Gran # (Auto) 0.03 (0.01-0.20) K/uL Sodium 138 (136-145) mmol/L Potassium 3.3 L (3.5-5.1) mmol/L Chloride 100 (98-107) mmol/L Carbon Dioxide 27 (21-32) mmol/L Anion Gap 11 (3-11) BUN 8 (6-23) mg/dl Creatinine 1.15 (0.6-1.2) mg/dl Est Cr Clr Drug Dosing 49.7 ml/min eGFR 54.54 BUN/Creatinine Ratio 7.0 L (10-20) Glucose 105 H (70-99(Fasting)) mg/dl Lactate 1.4 (0.4-2.0) mmol/L Calcium 9.6 (8.6-10.3) mg/dl Magnesium 1.8 (1.7-2.4) mg/dl Total Bilirubin 0.7 (0.2-1.0) mg/dl Direct Bilirubin 0.1 (0-0.2) mg/dl AST 17 (13-39) U/L ALT 10 (7-52) U/L Alkaline Phosphatase 60 (34-104) U/L Troponin I High Sens 11.6 (0-14) pg/ml B-Natriuretic Peptide 110 H (0-100) pg/ml Total Protein 7.4 (6.0-8.3) gm/dl Albumin 4.3 (3.4-5.0) gm/dl Urine Color Urine Appearance (Clear) Urine pH (4.5-7.5) Ur Specific [place] (1.000-1.030) Urine Protein (Negative) Urine Glucose (UA) (Negative) Urine Ketones (Negative) Urine Blood (Negative) Urine Nitrite (Negative) Urine Bilirubin (Negative) Urine Urobilinogen (Negative) Ur Leukocyte Esterase (Negative) Adenovirus (PCR) Not Detected (NotDetected) B. pertussis DNA (PCR) Not Detected (NotDetected) B.parapertussis DNA PCR Not Detected (NotDetected) C. pneumoniae DNA (PCR) Not Detected (NotDetected) Coronavirus OC43 (PCR) Not Detected (NotDetected) Coronavirus HKU1 (PCR) Not Detected (NotDetected) Coronavirus 229E (PCR) Not Detected (NotDetected) SARS-CoV-2 (PCR) Not Detected (NotDetected) Coronavirus NL63 (PCR) Not Detected (NotDetected) Human Metapneumovir PCR Not Detected (NotDetected) Influenza Type A (PCR) Not Detected (NotDetected) Influenza Type B (PCR) Not Detected (NotDetected) M. pneumoniae (PCR) Not Detected (NotDetected) Parainfluenza 1 (PCR) Not Detected (NotDetected) Parainfluenza 2 (PCR) Not Detected (NotDetected) Parainfluenza 3 (PCR) Not Detected (NotDetected) Parainfluenza 4 (PCR) Not Detected (NotDetected) RSV (PCR) Not Detected (NotDetected) Entero/Rhino (PCR) Not Detected (NotDetected) 09/19/24 Range/Units 00:44 WBC (4.8-10.8) K/ul RBC (4.20-5.40) M/uL Hgb (12.0-16.0) g/dl Hct (37.0-47.0) % MCV (80.0-100.0) fL MCH (25.0-34.0) pg MCHC (32.0-36.0) g/dL RDW Std Deviation (36.4-46.3) fL RDW Coeff of Akiko (11.5-14.5) % Plt Count (130-400) K/uL MPV (9.4-12.4) fL Immature Gran % (Auto) % Neut % (Auto) % Lymph % (Auto) % Harper % (Auto) % Eos % (Auto) % Baso % (Auto) % Neut # (Auto) (1.40-6.50) K/uL Lymph # (Auto) (1.20-3.40) K/uL Harper # (Auto) (0.11-0.59) K/uL Eos # (Auto) (0.00-0.50) K/uL Baso # (Auto) (0.00-0.20) K/uL Immature Gran # (Auto) (0.01-0.20) K/uL Sodium (136-145) mmol/L Potassium (3.5-5.1) mmol/L Chloride (98-107) mmol/L Carbon Dioxide (21-32) mmol/L Anion Gap (3-11) BUN (6-23) mg/dl Creatinine (0.6-1.2) mg/dl Est Cr Clr Drug Dosing ml/min eGFR BUN/Creatinine Ratio (10-20) Glucose (70-99(Fasting)) mg/dl Lactate (0.4-2.0) mmol/L Calcium (8.6-10.3) mg/dl Magnesium (1.7-2.4) mg/dl Total Bilirubin (0.2-1.0) mg/dl Direct Bilirubin (0-0.2) mg/dl AST (13-39) U/L ALT (7-52) U/L Alkaline Phosphatase (34-104) U/L Troponin I High Sens (0-14) pg/ml B-Natriuretic Peptide (0-100) pg/ml Total Protein (6.0-8.3) gm/dl Albumin (3.4-5.0) gm/dl Urine Color Yellow Urine Appearance Clear (Clear) Urine pH 6.5 (4.5-7.5) Ur Specific [place] 1.009 (1.000-1.030) Urine Protein Negative (Negative) Urine Glucose (UA) 3+ H (Negative) Urine Ketones Negative (Negative) Urine Blood Negative (Negative) Urine Nitrite Negative (Negative) Urine Bilirubin Negative (Negative) Urine Urobilinogen Negative (Negative) Ur Leukocyte Esterase Negative (Negative) Adenovirus (PCR) (NotDetected) B. pertussis DNA (PCR) (NotDetected) B.parapertussis DNA PCR (NotDetected) C. pneumoniae DNA (PCR) (NotDetected) Coronavirus OC43 (PCR) (NotDetected) Coronavirus HKU1 (PCR) (NotDetected) Coronavirus 229E (PCR) (NotDetected) SARS-CoV-2 (PCR) (NotDetected) Coronavirus NL63 (PCR) (NotDetected) Human Metapneumovir PCR (NotDetected) Influenza Type A (PCR) (NotDetected) Influenza Type B (PCR) (NotDetected) M. pneumoniae (PCR) (NotDetected) Parainfluenza 1 (PCR) (NotDetected) Parainfluenza 2 (PCR) (NotDetected) Parainfluenza 3 (PCR) (NotDetected) Parainfluenza 4 (PCR) (NotDetected) RSV (PCR) (NotDetected) Entero/Rhino (PCR) (NotDetected) Imaging Data Attestation: I personally reviewed and interpreted this imaging study as follows: MDM Narrative Prior records/ancillary studies reviewed. Triage Nursing notes reviewed. Additional history obtained from the EMS. The patient's history was concerning for respiratory difficulties. Differential diagnosis: Etiologies such as infections, reactive airway disease, pneumonia, pneumothorax, COPD, CHF, cardiac ischemia, pulmonary embolism, musculoskeletal, gastrointestinal, as well as others were entertained. Physical examination: As above. ER treatment provided: An order was placed for continuous cardiac monitoring. The monitor shows a rate of 60-100 with a sinus rhythm per my interpretation. Nebulizer, Solu-Medrol, doxycycline On reassessment the patient felt better. Diagnostic interpretation by me: The electrocardiogram was ordered for SOB. ECG: Normal sinus, occasional PVC, incomplete right bundle, right and 96. Impression normal sinus rhythm with incomplete right bundle branch block occasional PVC independently interpreted by myself The labs Independently Interpreted by myself revealed negative BioFire. Negative troponin Blood cultures pending Imaging studies: Chest x-ray with no acute consolidation, pneumothorax or free air per my independent interpretation. Consultation: A consultation was placed with the hospitalist. The case was discussed and diagnostics were reviewed. The patient was evaluated in the ER for further treatment. This appears to be consistent with COPD exacerbation. Patient was still feeling quite short of breath. She did not feel COVID going home. Medicine was consulted case discussed. She will be admitted to the medical service. She was given steroids and antibiotics for the COPD exacerbation.. By the evaluation outlined above emergent etiologies such as CHF, cardiac ischemia, pulmonary embolism, reactive airway disease, pneumonia, pneumothorax, musculoskeletal, serious bacterial infections, as well as others were deemed relatively unlikely. The pt informed about the findings as listed above. All questions were answered and pleased with the treatment. The chart was completed utilizing [employer] Speech voice recognition software. Grammatical errors, random word insertions, pronoun errors, and incomplete sentences are an occassional consequence of this system due to software limitations, ambient noise, and hardware issues. Any formal questions or concerns about the content, text, or information contained within the body of this dictation should be directly addressed to the physician pastry assistant for clarification. Impression & Plan COPD exacerbation Discharge Plan Visit Data Chief Complaint: Shortness of Breath/Dyspnea Stated Complaint: SHORTNESS OF BREATH X COUPLE DAYS ED Provider: [facility] ED Midlevel Provider: Lyric Tamayo Discharge Problem: COPD exacerbation Patient Disposition: Admitted As Inpatient Condition: Good Discharge Instructions Interventions: ED Discharge Assessment Last Done: 09/19/24 03:18
[2024-09-19 00:25] LABS: Basophils # (auto) 0.07 K/uL (0.00-0.20); Basophils % (auto) 0.8 %; Eosinophils # (auto) 0.21 K/uL (0.00-0.50); Eosinophils % (auto) 2.3 %; Hematocrit (blood only) 42.4 % (37.0-47.0); Immature Granulocytes # (auto) 0.03 K/uL (0.01-0.20); Immature Granulocytes % (auto) 0.3 %; Lymphocytes # (auto) 3.39 K/uL (1.20-3.40); Lymphocytes % (auto) 37.2 %; Mean Corpuscular Hemoglobin 31.9 pg (25.0-34.0); Mean Corpuscular Volume 96.6 fL (80.0-100.0); Mean Platelet Volume 9.7 fL (9.4-12.4); Monocytes # (auto) 0.56 K/uL (0.11-0.59); Monocytes % (auto) 6.1 %; Neutrophils # (auto) 4.85 K/uL (1.40-6.50); Neutrophils % (auto) 53.3 %; Platelet Count 280 K/uL (130-400); RDW Coefficient of Variation 13.4 % (11.5-14.5); RDW Standard Deviation 48.5 fL (36.4-46.3); Red Blood Count 4.39 M/uL (4.20-5.40); White Blood Count 9.11 K/ul (4.8-10.8)
[2024-09-19 00:43] LABS: Albumin Level 4.3 gm/dl (3.4-5.0); Bilirubin Direct 0.1 mg/dl (0-0.2); Bilirubin,Total 0.7 mg/dl (0.2-1.0); Calcium 9.6 mg/dl (8.6-10.3); Creatinine Clr Calc Pharmacy 49.7 ml/min; Magnesium 1.8 mg/dl (1.7-2.4); Potassium 3.3 mmol/L (3.5-5.1); Total Protein 7.4 gm/dl (6.0-8.3)
[2024-09-19 00:49] LABS: Troponin I High Sensitivity 11.6 pg/ml (0-14)
[2024-09-19 00:59] LABS: Adenovirus PCR Not Detected (NotDetected); Bordetella parapertussis PCR Not Detected (NotDetected); Bordetella pertussis PCR Not Detected (NotDetected); Chlamydia pneumoniae PCR Not Detected (NotDetected); Coronavirus 229E PCR Not Detected (NotDetected); Coronavirus CoV-2 (COVID19)PCR Not Detected (NotDetected); Coronavirus HKU1 PCR Not Detected (NotDetected); Coronavirus NL63 PCR Not Detected (NotDetected); Coronavirus OC43PCR Not Detected (NotDetected); Human Metapneumovirus PCR Not Detected (NotDetected); Influenza A PCR Not Detected (NotDetected); Influenza B PCR Not Detected (NotDetected); Mycoplasma pneumoniae PCR Not Detected (NotDetected); Parainfluenza Virus 1 PCR Not Detected (NotDetected); Parainfluenza Virus 2 PCR Not Detected (NotDetected); Parainfluenza Virus 3 PCR Not Detected (NotDetected); Parainfluenza Virus 4 PCR Not Detected (NotDetected); Respiratory Syncytial VirusPCR Not Detected (NotDetected); Rhinovirus/Enterovirus PCR Not Detected (NotDetected)
[2024-09-19 01:00] LABS: Appearance Urine Clear (Clear); Bilirubin Urine Negative (Negative); Blood Urine Negative (Negative); Color Urine Yellow; Glucose Urine UA 3+ (Negative); Ketones Urine Negative (Negative); Leukocyte Esterase Urine Negative (Negative); Nitrite Urine Negative (Negative); Protein Urine Negative (Negative); Specific Gravity Urine 1.009 (1.000-1.030); Urobilinogen Urine Negative (Negative); pH Urine 6.5 (4.5-7.5)
[2024-09-19] MEDS: DOXYCYCLINE HYCLATE 100 MG CAP PO STA (01:33)
[2024-09-19] MEDS: POTASSIUM CHLORIDE CRTAB 20 MEQ TABCR PO STA ×2 (01:33→02:31)
[2024-09-19] MEDS: NICOTINE 14 MG/24 HR PATCH TD STA (01:35)
--- NOTE | 2024-09-19 02:26 | History & Physical Report ---
Date of Service September 19, 2024 Assessment & Plan (1) COPD exacerbation: Plan: 59-year-old female with past med history significant for chronic respiratory failure on 2 L oxygen, COPD, hypothyroidism, hyperlipidemia, lung nodules, history of CAD status post stent, chronic combined systolic and diastolic CHF, CKD stage III, cerebellar hemangioma, hypertension, moderate mitral regurgitation, irritable bowel syndrome with constipation, gastroparesis, sicca syndrome, diverticulosis, degenerative disease, reflux sympathetic dystrophy, depression, generalized anxiety disorder, PTSD, statin intolerance, presents with shortness of breath and cough and chest pain and nausea and diarrhea going for last 2 to 3 days. Patient says she has chronic cough but for last 2- 3 days it got worse. It is dry cough. Also feeling short of breath. She is chronically on 2 L oxygen. Denies any fevers. She was feeling fuzzy in the head. And had an episode of fall on her knees. No loss of consciousness. Did not hit her head. She also feeling nauseous and having poor appetite and not able to eat anything for last couple of days. Also having diarrhea daily 3-4 times for last couple of days. No blood in the stools or black stools. Thinks diarrhea is getting better. No abdominal pain. Also complaining of left-sided chest pain for last 2 -3 days on and off. Feeling very weak and not getting out from the bed. Currently having headache thinks from the medications. Vision is okay. No runny nose or sore throat. Micturating okay. No swelling in the legs. Currently hemodynamics are okay and seems resting comfortably. Recently she was in the hospital for acute on chronic respiratory failure secondary to bronchitis and COPD exacerbation and UNRULY. States she smokes cigarette 5-6 daily but last 2 to 3 days was not feeling well and did not smoke. COPD exacerbation Chronic respiratory failure on 2 L oxygen Comes with cough and shortness of breath Has mild wheezing and rhonchi No leukocytosis Bio fire negative Chest x-ray okay Will check procalcitonin IV Solu-Medrol 40 mg 3 times daily DuoNebs [id number] and as needed Empiric Doxy for now Continue Wixela Close monitor Chest pains Feeling fuzzy Weakness EKG no acute findings Initial troponin unremarkable Will follow serial enzymes and echo Monitoring med/telemetry History of CAD status post stent Bare-metal stents x 1 RCA 2011 On beta-lynne and aspirin and Repatha History of right cerebellar cavernoma High risk of bleeding to avoid antiplatelet/anticoagulation as per cardiology notes As per cardiology notes it has been considered that patient is high risk of bleeding and possible if hemorrhage occurred and was deemed high risk to proceed with ischemic workup and potential need for dual antiplatelet therapy ,if cardiac cath was deemed necessary medical management recommended. Also plan for repeat MRI but seems not done yet Chronic systolic and diastolic CHF Moderate mitral regurgitation EF 35 to 39% echo done on 07/28/2023 ef 65-70% on echo 08/31/24 On metoprolol succinate, Jardiance and Entresto Monitor for volume overload Hypotension On midodrine GERD On omeprazole Hyperlipidemia On Repatha Hypothyroidism On Synthyroid Depression and anxiety On Paxil and Ativan as needed DVT prophylaxis Lovenox Disposition Med/telemetry Full code. History of Present Illness Chief Complaint: Shortness of breath.not feeling well Primary Care Provider: ALIYAH Goldman 59-year-old female with past med history significant for chronic respiratory failure on 2 L oxygen, COPD, hypothyroidism, hyperlipidemia, lung nodules, history of CAD status post stent, chronic combined systolic and diastolic CHF, CKD stage III, cerebellar hemangioma, hypertension, moderate mitral regurgitation, irritable bowel syndrome with constipation, gastroparesis, sicca syndrome, diverticulosis, degenerative disease, reflux sympathetic dystrophy, depression, generalized anxiety disorder, PTSD, statin intolerance, presents with shortness of breath and cough and chest pain and nausea and diarrhea going for last 2 to 3 days. Patient says she has chronic cough but for last 2- 3 days it got worse. It is dry cough. Also feeling short of breath. She is chronically on 2 L oxygen. Denies any fevers. She was feeling fuzzy in the head. And had an episode of fall on her knees. No loss of consciousness. Did not hit her head. She also feeling nauseous and having poor appetite and not able to eat anything for last couple of days. Also having diarrhea daily 3-4 times for last couple of days. No blood in the stools or black stools. Thinks diarrhea is getting better. No abdominal pain. Also complaining of left-sided chest pain for last 2 -3 days on and off. Feeling very weak and not getting out from the bed. Currently having headache thinks from the medications. Vision is okay. No runny nose or sore throat. Micturating okay. No swelling in the legs. Currently hemodynamics are okay and seems resting comfortably. Recently she was in the hospital for acute on chronic respiratory failure secondary to bronchitis and COPD exacerbation and UNRULY. States she smokes cigarette 5-6 daily but last 2 to 3 days was not feeling well and did not smoke. Past medical history. As mentioned above. Past surgical history. . Colonoscopy. Conization of cervix. EGD. EGD with biopsy. Injection of lumbosacral spine. Diagnostic laparoscopy. Ligation of oviducts. Tonsillectomy. Excision of left wrist ganglion. Repair of incisional hernia. Thoracotomy with repair of lung in 1988 and 1990 secondary to pneumothorax. Social history. . Smokes half pack a day for 45 years. Alcohol rarely. No drug use. Social history. Paternal grandfather had cancer. Aunt had colon cancer. Father had heart attack. Stroke. Mother had rheumatoid arthritis. Sister had stroke. Sister has diabetes. Brother has hypertension, diabetes. Allergies Allergy/AdvReac Type Severity Reaction Status Date / Time tramadol Allergy Severe Seizure Verified 02/23/24 07:31 adhesive Allergy Mild BANDAIDS : Verified 02/23/24 07:31 SKIN ABRASION ketorolac [From Toradol] Allergy Mild HX KIDNEY Verified 02/23/24 07:31 FAILURE adhesive tape Allergy Unknown SKIN TEARS Verified 02/23/24 07:31 ibuprofen Allergy Unknown HX KIDNEY Verified 02/23/24 07:31 FAILURE NSAIDS (Non-Steroidal Allergy Unknown HX KIDNEY Verified 02/23/24 07:31 Anti-Inflamma FAILURE Sulfa (Sulfonamide Allergy Unknown HIVES Verified 02/23/24 07:31 Antibiotics) meperidine AdvReac Unknown NOT A Verified 02/23/24 07:31 VERIFIED RXN: MOOD SWINGS prednisone AdvReac Unknown Patient Verified 02/23/24 07:31 Reports Contraindication in Kidney Failure/SEE NOTES rosuvastatin [From Crestor] AdvReac Unknown Weakness, Verified 02/23/24 07:31 RHABDOMYLOSIS, ACUTE RENAL FAILURE Home Medications Medication Instructions Recorded Confirmed Type albuterol sulfate 90 mcg/actuation 2 puff inhalation Q4H PRN 03/10/22 09/19/24 History aerosol inhaler cough,SOB or wheezing aspirin 81 mg tablet,delayed 81 mg PO QAM 03/10/22 09/19/24 History release evolocumab 420 mg/3.5 mL 420 mg subcut Q30D 03/10/22 09/19/24 History subcutaneous wearable injector (Repatha Pushtronex) folic acid 1 mg tablet 1 mg PO QAM 03/10/22 09/19/24 History levothyroxine 75 mcg tablet 75 mcg PO QAM 03/10/22 09/19/24 History (Synthroid) lorazepam 0.5 mg tablet 0.5 mg PO DAILY PRN Anxiety 03/10/22 09/19/24 History metoprolol succinate 25 mg 25 - 50 mg PO UD 03/10/22 09/19/24 History tablet,extended release 24 hr omeprazole 20 mg capsule,delayed 20 mg PO BID 03/10/22 09/19/24 History release pregabalin 75 mg capsule 75 mg PO TID 03/10/22 09/19/24 History midodrine 2.5 mg tablet 2.5 mg PO TID@0800,1200,1700 #90 05/06/22 09/19/24 Rx tabs acetaminophen 325 mg tablet 325 mg PO Q6H PRN Fever Or Pain 10/19/22 09/19/24 History methocarbamol 500 mg tablet 500 mg PO TID PRN muscle spasms 10/19/22 09/19/24 History ondansetron HCl 4 mg tablet 4 mg PO Q8 PRN Nausea 10/19/22 09/19/24 History albuterol sulfate 2.5 mg/3 mL 2.5 mg continuous nebulization QID 06/22/23 09/19/24 History (0.083 %) solution for nebulization PRN Wheezing empagliflozin 25 mg tablet 25 mg PO QAM heart failure 01/21/24 09/19/24 History (Jardiance) paroxetine HCl 40 mg tablet (Paxil) 40 mg PO HS 01/21/24 09/19/24 History sacubitril 24 mg-valsartan 26 mg 1 tab PO BID 01/21/24 09/19/24 History tablet (Entresto) fluticasone 250 mcg-salmeterol 50 1 inh inhalation BID #60 ea 09/05/24 09/19/24 Rx mcg/dose blistr powdr for inhalation (Wixela Inhub) guaifenesin 600 mg tablet, 600 mg PO Q12 #30 tabs 09/05/24 09/19/24 Rx extended release 12 hr (Mucinex) oxycodone 5 mg tablet 5 mg PO Q4H PRN pain #15 tabs 09/05/24 09/19/24 Rx Past Med/Surg History Problem List (Updated 09/19/24 @ 02:37 by Micky Owens MD) COPD exacerbation Asthma exacerbation in COPD (Acute) Acute metabolic encephalopathy Left lower lobe pneumonia Encounter for pre-operative examination Acute on chronic heart failure with reduced ejection fraction and diastolic dysfunction CKD (chronic kidney disease), stage III (Acute) Acute on chronic respiratory failure with hypoxia DVT prophylaxis Pulmonary nodule Pericardial effusion Hypotension Bacteremia Prolonged QT interval Hypertension Diarrhea (Acute) Lab test negative for COVID-19 virus (Acute) Nausea & vomiting (Acute) Colitis (Acute) Acute dehydration (Acute) Electrolyte abnormality Hypomagnesemia (Acute) Nausea and vomiting (Acute) Hypokalemia (Acute) Generalized abdominal pain (Acute) Pericardial effusion Left ventricular systolic dysfunction UNRULY (acute kidney injury) Chronic pericarditis with effusion UTI (urinary tract infection) Acute respiratory failure with hypercapnia Acute exacerbation of chronic obstructive pulmonary disease (Acute) Acute respiratory distress (Acute) Influenza A (Acute) Hypotension Volume overload Acute respiratory failure with hypoxia Anxiety Depression Electrolyte abnormality Transaminitis DVT prophylaxis COPD (chronic obstructive pulmonary disease) (Acute) HLD (hyperlipidemia) Rhabdomyolysis Acute renal failure Pulmonary nodule Nausea (Acute) Hypokalemia (Acute) COPD exacerbation (Acute) Wrist pain, right (Acute) Seizure (Acute) Influenza A (Acute) Hypoxia (Acute) Hypokalemia (Acute) Hypokalemia (Acute) Hypokalemia (Acute) COPD exacerbation (Acute) COPD exacerbation (Acute) Bronchitis (Acute) Asthma exacerbation in COPD (Acute) Acute bronchitis (Acute) Acute bronchitis (Acute) Cellulitis (Acute) CAD (coronary artery disease) Hypothyroidism HFrEF (heart failure with reduced ejection fraction) hx Medical History Emphysema/COPD daily nebulizer, and prn neb and inh; f/u pulmonology at [facility] and lapel 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 History of colitis Decreased mobility lt arm>CRPS PTSD (post-traumatic stress disorder) Unique anesthetic considerations on preoperative anesthesia assessment high level anxiety when sedated, hx intubation w Flu A....PTSD, "gets scared when put to sleep" History of colon polyps Low blood pressure currently on midodrine; f/u s cardio at and lapel History of influenza INFLUENZA A, February 2022 - [facility] hospitalization, "intubated while in the hospital" Pain syndrome, chronic chronic regional pain syndrome : left arm/received lidocaine injections in lapel/every three months/due may 2023. left limb restriction. History of renal failure "from her crestor medication" Oxygen dependent 2 L o2 continuous. Emphysema lung Statin intolerance Chronic pain see pain clinic for lt arm and neck, @[facility] Anxiety Shortness of breath chronic Neurofibromatosis Hypokalemia HX / CAN NOT TOLERATE PO POTASSIUM PILLS DUE TO GASTROPARESIS Hx of bronchitis Myocardial infarction 2010 - CHEST PAIN -[facility] ER AND HAD HEART CATH WITH ONE STENT (BARE METAL) FOLLOW WITH [facility] CARDIO Seizure 2013 ONLY HAD ONE -- ADMITTED TO [facility] --- METABOLIC RELATED ---- NO MEDICATION Pneumothorax AGE 24 - SURGERY TO REPAIR THE LEFT SIDE AND CHEMICAL TREATMENT ON THE RIGHT SIDE AT [place] Gastroparesis Cavernous hemangioma of brain stable Surgical History Hx of right cataract extraction History of heart artery stent 2010, [facility], x1 stent; f/u [facility] cardio at History of endoscopy Hx of colonoscopy Hx of vaginal surgery 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 Hx of section X2 Hx of cardiac cath 2010, [facility], x1 stent; f/u s cardio at History of hernia repair UMBILICAL Family History Father Lung disease Severe emphysema, pneumothorax Brother Family history of diabetes mellitus Brother Family history of diabetes mellitus Family/Other Family history of cancer Aunt Family history of colonic polyps Grandfather Family history of lymphoma Social History Smoking Status: Current some day smoker Tobacco Type: Cigarettes Age Started Using Tobacco: 11; Age Quit Using Tobacco: 53; packs per day: 1; Cigarettes Per Day: has 1 occasionally; Second Hand Exposure: Yes; Do You Dip or Chew Tobacco: No; Hx Alcohol Use: No Hx Substance Use: No Preferred Language: Faroese Communication Ability: Effective Shearing Shed Hand Required: No Beliefs That Will Affect Care: None marital status: Current Living Situation: Spouse How many Children do You have: 3 Other Information That Helps Us Care for You: No Feels Safe at Home: Yes Safety Concerns: Feels Safe At This Time Assistive Devices: Denture - Upper, Denture - Lower and Oxygen - Continuous Review of Systems Review of Systems: All systems reviewed & are unremarkable except as noted in HPI & below Physical Exam Physical Exam: General- Not in distress Head- atraumatic Eyes- PERRL. ENT- oropharynx clear Neck- supple, no JVD. Lungs- clear to auscultation mild bilateral wheezing and rhonchi, no crackles Heart- regular rate and rhythm; no murmur, no gallop. Abdomen- normal bowel sounds, soft, nontender, no distension Extremities- no pretibial edema, no erythema seen. Neuro- alert, oriented PERRL, EOMI; no facial palsy; no dysarthria; moves extremities Results & Data Results & Data Vital Signs (Past 12 Hours) Vital Signs Temp Pulse Pulse Resp BP BP Pulse Ox 09/19/24 01:45 80 24 118/75 98 09/19/24 01:30 82 26 H 99 09/19/24 01:30 118/75 09/19/24 01:30 118/75 09/19/24 01:24 95 H 14 99 09/19/24 01:15 96 H 31 H 98 09/19/24 01:00 106/70 09/19/24 00:54 81 18 98 09/19/24 00:47 111/81 09/19/24 00:46 87 14 111/81 97 09/19/24 00:45 103 H 24 98 09/19/24 00:42 107 H 11 L 09/19/24 00:30 87 17 97 09/19/24 00:21 88 21 97 09/19/24 00:12 92 H 18 100 09/19/24 00:06 98 H 14 99 09/18/24 23:48 124/87 09/18/24 23:48 124/87 09/18/24 23:47 83 09/18/24 23:46 36.9 C 85 24 124/87 98 O2 Del Method O2 Flow Rate 09/19/24 01:45 Nasal Cannula 2 09/19/24 01:30 09/19/24 01:30 09/19/24 01:30 09/19/24 01:24 09/19/24 01:15 09/19/24 01:00 09/19/24 00:54 09/19/24 00:47 09/19/24 00:46 Nasal Cannula 2 09/19/24 00:45 09/19/24 00:42 09/19/24 00:30 09/19/24 00:21 09/19/24 00:12 09/19/24 00:06 Room Air 09/18/24 23:48 09/18/24 23:48 09/18/24 23:47 09/18/24 23:46 Room Air Diagnostic Findings Laboratory Results WBC 9.11 K/ul (4.8-10.8) 09/18/24 23:58 RBC 4.39 M/uL (4.20-5.40) 09/18/24 23:58 Hgb 14.0 g/dl (12.0-16.0) 09/18/24 23:58 Hct 42.4 % (37.0-47.0) 09/18/24 23:58 MCV 96.6 fL (80.0-100.0) 09/18/24 23:58 MCH 31.9 pg (25.0-34.0) 09/18/24 23:58 MCHC 33.0 g/dL (32.0-36.0) 09/18/24 23:58 RDW Std Deviation 48.5 fL (36.4-46.3) H 09/18/24 23:58 RDW Coeff of Akiko 13.4 % (11.5-14.5) 09/18/24 23:58 Plt Count 280 K/uL (130-400) 09/18/24 23:58 MPV 9.7 fL (9.4-12.4) 09/18/24 23:58 Immature Gran % (Auto) 0.3 % 09/18/24 23:58 Neut % (Auto) 53.3 % 09/18/24 23:58 Lymph % (Auto) 37.2 % 09/18/24 23:58 [place] % (Auto) 6.1 % 09/18/24 23:58 Eos % (Auto) 2.3 % 09/18/24 23:58 Baso % (Auto) 0.8 % 09/18/24 23:58 Neut # (Auto) 4.85 K/uL (1.40-6.50) 09/18/24 23:58 Lymph # (Auto) 3.39 K/uL (1.20-3.40) 09/18/24 23:58 [place] # (Auto) 0.56 K/uL (0.11-0.59) 09/18/24 23:58 Eos # (Auto) 0.21 K/uL (0.00-0.50) 09/18/24 23:58 Baso # (Auto) 0.07 K/uL (0.00-0.20) 09/18/24 23:58 Immature Gran # (Auto) 0.03 K/uL (0.01-0.20) 09/18/24 23:58 Sodium 138 mmol/L (136-145) 09/18/24 23:58 Potassium 3.3 mmol/L (3.5-5.1) L 09/18/24 23:58 Chloride 100 mmol/L (98-107) 09/18/24 23:58 Carbon Dioxide 27 mmol/L (21-32) 09/18/24 23:58 Anion Gap 11 (3-11) 09/18/24 23:58 BUN 8 mg/dl (6-23) 09/18/24 23:58 Creatinine 1.15 mg/dl (0.6-1.2) 09/18/24 23:58 Est Cr Clr Drug Dosing 49.7 ml/min 09/18/24 23:58 eGFR 54.54 09/18/24 23:58 BUN/Creatinine Ratio 7.0 (10-20) L 09/18/24 23:58 Glucose 105 mg/dl (70-99(Fasting)) H 09/18/24 23:58 Lactate 1.4 mmol/L (0.4-2.0) 09/19/24 00:31 Calcium 9.6 mg/dl (8.6-10.3) 09/18/24 23:58 Magnesium 1.8 mg/dl (1.7-2.4) 09/18/24 23:58 Total Bilirubin 0.7 mg/dl (0.2-1.0) 09/18/24 23:58 Direct Bilirubin 0.1 mg/dl (0-0.2) 09/18/24 23:58 AST 17 U/L (13-39) 09/18/24 23:58 ALT 10 U/L (7-52) 09/18/24 23:58 Alkaline Phosphatase 60 U/L (34-104) 09/18/24 23:58 Troponin I High Sens 11.6 pg/ml (0-14) 09/18/24 23:58 B-Natriuretic Peptide 110 pg/ml (0-100) H 09/18/24 23:58 Total Protein 7.4 gm/dl (6.0-8.3) 09/18/24 23:58 Albumin 4.3 gm/dl (3.4-5.0) 09/18/24 23:58 Urine Color Yellow 09/19/24 00:44 Urine Appearance Clear (Clear) 09/19/24 00:44 Urine pH 6.5 (4.5-7.5) 09/19/24 00:44 Ur Specific [place] 1.009 (1.000-1.030) 09/19/24 00:44 Urine Protein Negative (Negative) 09/19/24 00:44 Urine Glucose (UA) 3+ (Negative) H 09/19/24 00:44 Urine Ketones Negative (Negative) 09/19/24 00:44 Urine Blood Negative (Negative) 09/19/24 00:44 Urine Nitrite Negative (Negative) 09/19/24 00:44 Urine Bilirubin Negative (Negative) 09/19/24 00:44 Urine Urobilinogen Negative (Negative) 09/19/24 00:44 Ur Leukocyte Esterase Negative (Negative) 09/19/24 00:44 Adenovirus (PCR) Not Detected (NotDetected) 09/19/24 00:00 B. pertussis DNA (PCR) Not Detected (NotDetected) 09/19/24 00:00 B.parapertussis DNA PCR Not Detected (NotDetected) 09/19/24 00:00 C. pneumoniae DNA (PCR) Not Detected (NotDetected) 09/19/24 00:00 Coronavirus OC43 (PCR) Not Detected (NotDetected) 09/19/24 00:00 Coronavirus HKU1 (PCR) Not Detected (NotDetected) 09/19/24 00:00 Coronavirus 229E (PCR) Not Detected (NotDetected) 09/19/24 00:00 SARS-CoV-2 (PCR) Not Detected (NotDetected) 09/19/24 00:00 Coronavirus NL63 (PCR) Not Detected (NotDetected) 09/19/24 00:00 Human Metapneumovir PCR Not Detected (NotDetected) 09/19/24 00:00 Influenza Type A (PCR) Not Detected (NotDetected) 09/19/24 00:00 Influenza Type B (PCR) Not Detected (NotDetected) 09/19/24 00:00 M. pneumoniae (PCR) Not Detected (NotDetected) 09/19/24 00:00 Parainfluenza 1 (PCR) Not Detected (NotDetected) 09/19/24 00:00 Parainfluenza 2 (PCR) Not Detected (NotDetected) 09/19/24 00:00 Parainfluenza 3 (PCR) Not Detected (NotDetected) 09/19/24 00:00 Parainfluenza 4 (PCR) Not Detected (NotDetected) 09/19/24 00:00 RSV (PCR) Not Detected (NotDetected) 09/19/24 00:00 Entero/Rhino (PCR) Not Detected (NotDetected) 09/19/24 00:00 ECG Additional Comments: ECG. Sinus rhythm with frequent PVCs with rate of 96. Incomplete right bundle branch block. Nonspecific T wave abnormalities. QTc 497. Code Status & VTE Plan VTE Prophylaxis Plan VTE Prophylaxis will be ordered: Yes
[2024-09-19] MEDS ORDERED: ALBUT/IPRATROP 3MG/0.5MG NEB 3 ML VIAL NEB PRN (03:12)
[2024-09-19] MEDS ORDERED: ACETAMINOPHEN 325 MG TAB PO PRN (03:12)
[2024-09-19] MEDS ORDERED: ALBUTEROL HFA 8 GM INHALER INH PRN (03:12)
[2024-09-19] MEDS ORDERED: NITROGLYCERIN SL 0.4 MG/TAB TAB SL PRN (03:12)
[2024-09-19] MEDS ORDERED: POLYETHYLENE (MIRALAX) 17 GM PACK PO PRN (03:12)
[2024-09-19] MEDS: oxyCODONE HCL IR 5 MG TAB (IMMEDIATE RELEASE) PO PRN (04:08)
[2024-09-19] MEDS: LORazepam 0.5 MG TAB PO PRN (04:09)
[2024-09-19] MEDS: METHOCARBAMOL 500 MG TABLET PO PRN (05:27)
[2024-09-19] MEDS: LEVOTHYROXINE SODIUM 75 MCG TABLET PO SCH (05:27)
--- NOTE | 2024-09-19 07:03 | XRay Report ---
XR chest 1V portable CLINICAL HISTORY: Sepsis. COMPARISON STUDY: Chest radiograph and chest CT August 31, 2024. FINDINGS: Lung volumes are normal. Emphysema is again noted. Lungs are clear. There is no pneumothora x or pleural effusion. Cardiac size is normal. Mediastinal contours are normal. There is no evidence for pulmonary edema. IMPRESSION: No acute cardiopulmonary findings. Emphysema. No significant change in appearance of the chest. ACT 112: Negative or not required by law. Electronically signed by: Shaheed Xiong M.D. 09/19/2024 7:01 AM
[2024-09-19] MEDS: ALBUT/IPRATROP 3MG/0.5MG NEB 3 ML VIAL NEB SCH (07:06)
[2024-09-19 07:36] LABS: BUN Creatinine Ratio 7.1 (10-20); Calcium 8.7 mg/dl (8.6-10.3); Creatinine Clr Calc Pharmacy 53.1 ml/min; Magnesium 1.6 mg/dl (1.7-2.4); Potassium 3.7 mmol/L (3.5-5.1)
[2024-09-19 07:43] LABS: Troponin I High Sensitivity 7.1 pg/ml (0-14)
[2024-09-19 07:56] LABS: D Dimer 190 ug/L FEU (0-500)
[2024-09-19 08:01] LABS: Basophils # (auto) 0.03 K/uL (0.00-0.20); Basophils % (auto) 0.6 %; Eosinophils # (auto) 0.01 K/uL (0.00-0.50); Eosinophils % (auto) 0.2 %; Hematocrit (blood only) 36.2 % (37.0-47.0); Hemoglobin 12.4 g/dl (12.0-16.0); Immature Granulocytes # (auto) 0.04 K/uL (0.01-0.20); Immature Granulocytes % (auto) 0.9 %; Lymphocytes # (auto) 0.53 K/uL (1.20-3.40); Lymphocytes % (auto) 11.4 %; Mean Corpuscular Hemoglobin 32.7 pg (25.0-34.0); Mean Corpuscular Hgb Conc 34.3 g/dL (32.0-36.0); Mean Corpuscular Volume 95.5 fL (80.0-100.0); Mean Platelet Volume 10.4 fL (9.4-12.4); Monocytes # (auto) 0.08 K/uL (0.11-0.59); Monocytes % (auto) 1.7 %; Neutrophils # (auto) 3.97 K/uL (1.40-6.50); Neutrophils % (auto) 85.2 %; Platelet Count 251 K/uL (130-400); RDW Coefficient of Variation 13.5 % (11.5-14.5); RDW Standard Deviation 47.7 fL (36.4-46.3); Red Blood Count 3.79 M/uL (4.20-5.40); White Blood Count 4.66 K/ul (4.8-10.8)
[2024-09-19] MEDS: MAGNESIUM OXIDE 400 MG TAB PO SCH (08:44)
[2024-09-19] MEDS: FLUTICASONE/VILANTEROL 200/25MCG 14 PUFFS/INHALER INH SCH (08:45)
[2024-09-19] MEDS: methylPREDNISolone 40 MG in SYRINGE 0 ML IV SCH (08:45)
[2024-09-19] MEDS: ASPIRIN 81 MG ECTAB PO SCH (08:46)
[2024-09-19] MEDS: VALSARTAN/SACUBITRIL 26/24MG TAB PO SCH (08:46)
[2024-09-19] MEDS: EMPAGLIFLOZIN 25 MG TAB PO SCH (08:46)
[2024-09-19] MEDS: DOXYCYCLINE HYCLATE 100 MG CAP PO SCH (08:47)
[2024-09-19] MEDS: MIDODRINE HCL 2.5 MG TAB PO SCH (08:47)
[2024-09-19] MEDS: PREGABALIN 75 MG CAP PO SCH (08:47)
[2024-09-19] MEDS: guaiFENesin 600 MG TABCR PO SCH (08:47)
[2024-09-19] MEDS: ENOXAPARIN INJ 40 MG/0.4 ML SYR SQ SCH (08:47)
[2024-09-19] MEDS: FOLIC ACID 1 MG TAB PO SCH (08:47)
[2024-09-19] MEDS: PANTOprazole 40 MG TAB PO SCH (08:47)
[2024-09-19] MEDS: METOPROLOL SUCC 50MG EXT REL TAB PO SCH (08:59)
[2024-09-19] MEDS ORDERED: methylPREDNISolone 125 MG/2 ML VIAL IV SCH (09:00)
[2024-09-19] MEDS: guaiFENesin/DEXTROM SYRUP 100MG/10MG 5ML UDC PO ONE (11:42)
--- NOTE | 2024-09-19 12:47 | Electrocardiogram Report ---
Test Reason : Blood Pressure : */* mmHG Vent. Rate : 96 BPM Atrial Rate : 96 BPM P-R Int : 132 ms QRS Dur : 96 ms QT Int : 394 ms P-R-T Axes : 88 84 89 degrees QTcB Int : 497 ms Sinus rhythm with frequent Premature ventricular complexes Incomplete right bundle branch block Nonspecific T wave abnormality Abnormal ECG When compared with ECG of 02-Sep-2024 06:20, Incomplete right bundle branch block is now Present QT has lengthened Confirmed by Jesus Garzon ([id number]) on 09/19/2024 12:47:32 PM Referred By: REFERRED SELF Confirmed By: Jesus Garzon
--- NOTE | 2024-09-19 12:49 | Electrocardiogram Report ---
Test Reason : Blood Pressure : */* mmHG Vent. Rate : 76 BPM Atrial Rate : 76 BPM P-R Int : 128 ms QRS Dur : 98 ms QT Int : 404 ms P-R-T Axes : 86 83 77 degrees QTcB Int : 454 ms Poor data quality, interpretation may be adversely affected Normal sinus rhythm When compared with ECG of 18-Sep-2024 23:47, (unconfirmed) Premature ventricular complexes are no longer Present Incomplete right bundle branch block is no longer Present Confirmed by Jesus Garzon ([id number]) on 09/19/2024 12:48:48 PM Referred By: REFERRED SELF Confirmed By: Jesus Garzon
--- NOTE | 2024-09-19 15:33 | Communication Note ---
Date of Service: September 19, 2024 Patient states that she just feels weak, but that diarrhea has resolved. Patient states that she just isnt hungry and hasnt smoked in days. She feels as if her breathing is stable--she states that she will do a longer steroid taper as last time she declined further steroids Patient did not follow up s/p discharge EXAM diminished breath sounds, no wheezing or rhonchi on exam no increased sputum, dry cough reports chronic RRR, no MRG no edema #Chronic hypotension #Weakness Suspect that polypharmacy contributing, holding medications at this time and will discuss regimen with cards given antihypertensive combo with midodrine PT/OT #COPD #emphysema #Chronic tobacco use #History of hypoxic respiratory failure 2 step last admission without O2 requirement; however, patient anxious and nervous without o2 Continue wixela NO showed Dr. Duong appt on 09/12 No show for FP appointment 09/09 [facility] for now Patient declines azithromycin, will continue doxy #Chronic heart failure with recovered EF #Ischemic Cardiomyopathy #Prior STEMI s/p bare metal stent in RCA #Chronic pericardial effusion ECHO 65-70%, anterior/right lateral pericardial effusion, no tamponade, appears chronic per ECHO report Recheck echo, last EF was 45%, 06/2023; stable pericardial effusion noted at that time On Jardiance/Aldactone at home - GDMT: *BetaB: continue metoprolol 50mg qam/25mg qpm *RAAS: hold entresto *Narendra: discontinue Aldactone *SGLT: continue Jardiance *ICD: Address outpatient Carefully monitor I&O, did receive 500 cc NSS in ED -Continue ASA -On repatha as OP -Will discuss medications with cards in am #Noncardiac chest pain acute on chronic cough with reproducible chest pain suspect MSK trop wnl low suspicion for for ischemic event Continue on tele #R Cerebellar Cavernoma -high risk for bleeding/hemorrhage; avoid antiplatelet/anticoagulation rest of plan per hp
[2024-09-19] MEDS: METOPROLOL SUCC 25MG EXT REL TAB PO SCH (19:34)
[2024-09-19] MEDS: PARoxetine HCL 20 MG TAB PO SCH (20:06)
[2024-09-19] MEDS: guaiFENesin/DEXTROM SYRUP 100MG/10MG 5ML UDC PO PRN (20:10)
[2024-09-20 06:06] LABS: Hematocrit (blood only) 33.7 % (37.0-47.0); Hemoglobin 11.5 g/dl (12.0-16.0); Mean Corpuscular Hemoglobin 32.6 pg (25.0-34.0); Mean Corpuscular Hgb Conc 34.1 g/dL (32.0-36.0); Mean Corpuscular Volume 95.5 fL (80.0-100.0); Mean Platelet Volume 9.8 fL (9.4-12.4); Platelet Count 267 K/uL (130-400); RDW Coefficient of Variation 13.5 % (11.5-14.5); RDW Standard Deviation 48.1 fL (36.4-46.3); Red Blood Count 3.53 M/uL (4.20-5.40); White Blood Count 9.51 K/ul (4.8-10.8)
[2024-09-20 06:24] LABS: BUN Creatinine Ratio 8.2 (10-20); Creatinine Clr Calc Pharmacy 48.9 ml/min; Magnesium 1.9 mg/dl (1.7-2.4); Phosphorus 2.4 mg/dl (2.5-4.9); Potassium 3.7 mmol/L (3.5-5.1)
[2024-09-20 07:02] LABS: Hypersegmented Neutrophils 1+
[2024-09-20] MEDS: methylPREDNISolone 40 MG in SYRINGE 0 ML IV SCH (08:21)
[2024-09-20 11:11] LABS: Estimated Average Glucose 114 mg/dl; Hemoglobin A1C 5.6 % (4.5-5.6)
--- NOTE | 2024-09-20 11:31 | Electrocardiogram Report ---
Test Reason : Blood Pressure : */* mmHG Vent. Rate : 73 BPM Atrial Rate : 73 BPM P-R Int : 144 ms QRS Dur : 80 ms QT Int : 430 ms P-R-T Axes : 79 34 56 degrees QTcB Int : 473 ms Normal sinus rhythm Normal ECG When compared with ECG of 19-Sep-2024 06:23, Nonspecific T wave abnormality no longer evident in Anterolateral leads Confirmed by Jesus Garzon ([id number]) on 09/20/2024 11:31:27 AM Referred By: REFERRED SELF Confirmed By: Jesus Garzon
--- NOTE | 2024-09-20 11:31 | Electrocardiogram Report ---
Test Reason : Blood Pressure : */* mmHG Vent. Rate : 86 BPM Atrial Rate : 86 BPM P-R Int : 136 ms QRS Dur : 98 ms QT Int : 396 ms P-R-T Axes : 78 73 61 degrees QTcB Int : 473 ms Normal sinus rhythm Normal ECG When compared with ECG of 19-Sep-2024 08:31, (unconfirmed) QRS duration has increased Confirmed by Jesus Garzon ([id number]) on 09/20/2024 11:31:01 AM Referred By: REFERRED SELF Confirmed By: Jesus Garzon
--- NOTE | 2024-09-20 11:46 | Cardiology Consultation ---
Date of Consultation September 20, 2024 Assessment & Plan (1) COPD exacerbation: (2) Hypotension: (3) Chronic heart failure with preserved ejection fraction: Plan Patient admitted with atypical chest pain, SOB/cough, suggesting COPD exacerbation. Chest pain was musculoskeletal in nature with coughing. Negative HS troponin x3 since admission EKG without acute ischemic changes. Echo with normal LVEF at 65% and no wall motion abnormalities. stable mild pericardial effusion (chronic) She has a long history of variable LVEF ranging 35-55% dating back to 2010 at time of her BMS to the RCA. EF with med management. Medications have been limited by hypotension and midodrine added last year. Multiple metoprolol doses have been held since admission due to borderline hypotension. Patient reports worsening palpitations when not receiving her metoprolol. Recommend resuming metoprolol 50 mg in AM and 25 mg in PM. Change holding parameters for systolic BP < 90. Increase midodrine to 5 mg in AM and at lunch. Will keep 2.5 mg in the evening for now. Continue Jardiance for now Spironolactone previously stopped due to UNRULY. Continue to hold. Reduce Entresto to 1/2 tab of the 25 mg dose. Pharmacy reports they are unable to cut medication - so will change to 1 tab at bedtime. IF BP improves with higher dose midodrine, will increase Entresto back to BID dosing. Currently appears euvolemic. Continue ASA. Patient intolerant to statins. She is to be taking PCSK9 inhib at home. Case discussed with Dr. Kearns I spent a total of 45 minutes on the date of service in preparation, delivery, and documentation of the care provided to this patient, excluding any time spent in the performance of separately billed services. Angeline Madsen PA-C Department of Cardiology, [facility] This chart was completed in part utilizing Speech Voice Recognition Software. Grammatical errors, random word insertions, pronoun errors, and incomplete sentences are an occasional consequence of this system due to software limitations, ambient noise, and hardware issues. Any formal questions or concerns about the content, text, or information contained within the body of this dictation should be directly addressed to the provider for clarification. Supervising Physician Co-Signing Physician Notes Attending attestation: Case reviewed with the advanced practitioner. I have personally performed a history and physical examination on the patient. I have reviewed the advanced practitioner's documentation on the date of service referenced in note, and I agree with, and take responsibility for the plan of care. I spent a total of 20 minutes coordinating, documenting, and providing care for this patient excluding time spent in the performance of separately billed services or time spent by another provider. Calvin Kearns, History of Present Illness Reason for Consultation: hypotension; Med management; History of HF; atypical chest pain Requesting Physician: Dr. Wong Attending Physician: Dr. Kearns History of Present Illness Patient is a 59 year old female who presented to [facility] with atypical chest pain, worsening cough and SOB, consistent with COPD exacerbation. Chest pain was exacerbated by coughing. Started on antibiotics and nebulizers. Patient declined steroids. She has had low BP readings at home with "woozy" feeling in her head. no syncope or near syncope. No palpitations. However she reports she has symptoms of fluttering are worse if she misses a dose of her metoprolol. No exertional chest pain or need for SL nitro. No recent weight gain, edema. Upon admission, HS troponin negative x3 since admission EKG demonstrating NSR with PVC's. No significant change. Since admission multiple doses of her metoprolol were held, along with Entresto due to borderline hypotension. remains on midodrine 2.5 mg TID. Per outpatient records at some point, she was on 5 mg TID. Echo since admission reveals improved/normal LVEF at 60-65%, stable/chronic pericardial effusion. At time of consult, patient reports feeling well. CP improved along with cough. No wheezing. SOB at baseline. No orthopnea, PND or edema. No dizziness this morning. Complex history including: CAD -BMS x1 RCA 2010, repeat cath in 2011 with patent stent. Nuclear stress test in 02/2021 was negative for inducible ischemia Ischemic chronic HFrEF - variable EF -EF 35-39% 2021 and 2022, improving to 55% this admission Moderate Mitral Regurgitation Supraventricular Ectopy & SVT Chronic Pericardial Effusion Dyslipidemia Statin Intolerance -Rhabdomyolysis 03/2021 Hypotension -on Midodrine COPD R Cerebellar Cavernoma -high risk for bleeding/hemorrhage; avoid antiplatelet/anticoagulation CKD Tobacco Use Allergies Allergy/AdvReac Type Severity Reaction Status Date / Time tramadol Allergy Severe Seizure Verified 02/23/24 07:31 adhesive Allergy Mild BANDAIDS : Verified 02/23/24 07:31 SKIN ABRASION ketorolac [From Toradol] Allergy Mild HX KIDNEY Verified 02/23/24 07:31 FAILURE adhesive tape Allergy Unknown SKIN TEARS Verified 02/23/24 07:31 ibuprofen Allergy Unknown HX KIDNEY Verified 02/23/24 07:31 FAILURE NSAIDS (Non-Steroidal Allergy Unknown HX KIDNEY Verified 02/23/24 07:31 Anti-Inflamma FAILURE Sulfa (Sulfonamide Allergy Unknown HIVES Verified 02/23/24 07:31 Antibiotics) meperidine AdvReac Unknown NOT A Verified 02/23/24 07:31 VERIFIED RXN: MOOD SWINGS prednisone AdvReac Unknown Patient Verified 02/23/24 07:31 Reports Contraindication in Kidney Failure/SEE NOTES rosuvastatin [From Crestor] AdvReac Unknown Weakness, Verified 02/23/24 07:31 RHABDOMYLOSIS, ACUTE RENAL FAILURE Home Medications Medication Instructions Recorded Confirmed Type albuterol sulfate 90 mcg/actuation 2 puff inhalation Q4H PRN 03/10/22 09/19/24 History aerosol inhaler cough,SOB or wheezing aspirin 81 mg tablet,delayed 81 mg PO QAM 03/10/22 09/19/24 History release evolocumab 420 mg/3.5 mL 420 mg subcut Q30D 03/10/22 09/19/24 History subcutaneous wearable injector (Repatha Pushtronex) folic acid 1 mg tablet 1 mg PO QAM 03/10/22 09/19/24 History levothyroxine 75 mcg tablet 75 mcg PO QAM 03/10/22 09/19/24 History (Synthroid) lorazepam 0.5 mg tablet 0.5 mg PO DAILY PRN Anxiety 03/10/22 09/19/24 History metoprolol succinate 25 mg 25 - 50 mg PO UD 03/10/22 09/19/24 History tablet,extended release 24 hr omeprazole 20 mg capsule,delayed 20 mg PO BID 03/10/22 09/19/24 History release pregabalin 75 mg capsule 75 mg PO TID 03/10/22 09/19/24 History midodrine 2.5 mg tablet 2.5 mg PO TID@0800,1200,1700 #90 05/06/22 09/19/24 Rx tabs acetaminophen 325 mg tablet 325 mg PO Q6H PRN Fever Or Pain 10/19/22 09/19/24 History methocarbamol 500 mg tablet 500 mg PO TID PRN muscle spasms 10/19/22 09/19/24 History ondansetron HCl 4 mg tablet 4 mg PO Q8 PRN Nausea 10/19/22 09/19/24 History albuterol sulfate 2.5 mg/3 mL 2.5 mg continuous nebulization QID 06/22/23 09/19/24 History (0.083 %) solution for nebulization PRN Wheezing empagliflozin 25 mg tablet 25 mg PO QAM heart failure 01/21/24 09/19/24 History (Jardiance) paroxetine HCl 40 mg tablet (Paxil) 40 mg PO HS 01/21/24 09/19/24 History sacubitril 24 mg-valsartan 26 mg 1 tab PO BID 01/21/24 09/19/24 History tablet (Entresto) fluticasone 250 mcg-salmeterol 50 1 inh inhalation BID #60 ea 09/05/24 09/19/24 Rx mcg/dose blistr powdr for inhalation (Wixela Inhub) guaifenesin 600 mg tablet, 600 mg PO Q12 #30 tabs 09/05/24 09/19/24 Rx extended release 12 hr (Mucinex) oxycodone 5 mg tablet 5 mg PO Q4H PRN pain #15 tabs 09/05/24 09/19/24 Rx Patient History Medical History Emphysema/COPD daily nebulizer, and prn neb and inh; f/u pulmonology at [facility] and [place] 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 History of colitis Decreased mobility lt arm>CRPS PTSD (post-traumatic stress disorder) Unique anesthetic considerations on preoperative anesthesia assessment high level anxiety when sedated, hx intubation w Flu A....PTSD, "gets scared when put to sleep" History of colon polyps Low blood pressure currently on midodrine; f/u [facility] cardio at and [place] History of influenza INFLUENZA A, February 2022 - [facility] hospitalization, "intubated while in the hospital" Pain syndrome, chronic chronic regional pain syndrome : left arm/received lidocaine injections in [place]/every three months/due may 2023. left limb restriction. History of renal failure "from her crestor medication" Oxygen dependent 2 L o2 continuous. Emphysema lung Statin intolerance Chronic pain see pain clinic for lt arm and neck, @[facility] Anxiety Shortness of breath chronic Neurofibromatosis Hypokalemia HX / CAN NOT TOLERATE PO POTASSIUM PILLS DUE TO GASTROPARESIS Hx of bronchitis Myocardial infarction 2010 - CHEST PAIN -[facility] ER AND HAD HEART CATH WITH ONE STENT (BARE METAL) FOLLOW WITH [facility] Seizure 2013 ONLY HAD ONE -- ADMITTED TO [facility] --- METABOLIC RELATED ---- NO MEDICATION Pneumothorax AGE 24 - SURGERY TO REPAIR THE LEFT SIDE AND CHEMICAL TREATMENT ON THE RIGHT SIDE AT [place] Gastroparesis Cavernous hemangioma of brain stable Surgical History Hx of right cataract extraction History of heart artery stent 2010, [place], [facility], x1 stent; f/u [facility] cardio at History of endoscopy Hx of colonoscopy Hx of vaginal surgery 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 Hx of section X2 Hx of cardiac cath 2010, [place], [facility], x1 stent; f/u s cardio at [facility] History of hernia repair UMBILICAL Family History Father Lung disease Severe emphysema, pneumothorax Brother Family history of diabetes mellitus Brother Family history of diabetes mellitus Family/Other Family history of cancer Aunt Family history of colonic polyps Grandfather Family history of lymphoma Social History Smoking Status: Current some day smoker Tobacco Type: Cigarettes Age Started Using Tobacco: 11; Age Quit Using Tobacco: 53; packs per day: 1; Cigarettes Per Day: has 1 occasionally; Second Hand Exposure: Yes; Do You Dip or Chew Tobacco: No; Hx Alcohol Use: No Hx Substance Use: No Preferred Language: Polish Communication Ability: Effective Parts Lister Required: No Beliefs That Will Affect Care: None marital status: Current Living Situation: Spouse How many Children do You have: 3 Other Information That Helps Us Care for You: No Feels Safe at Home: Yes Safety Concerns: Feels Safe At This Time Assistive Devices: Oxygen - Continuous, Walker and Wheelchair Review of Systems Review of Systems: All systems reviewed & are unremarkable except as noted in HPI & below Physical Exam Constitutional: WD/WN, vitals as above average body habitus; no acute distress Neck: trachea midline, no thyromegaly normal visual inspection Respiratory: normal respiratory effort; no respiratory distress Auscultation: + diminished lung sounds and + wheezes Cardiovascular: Rate/Rhythm: regular rate and regular rhythm Heart Sounds: normal S1 and normal S2; no murmur Vessels: no JVD Extremities: no edema Gastrointestinal (Abdomen): normal bowel sounds, soft, nontender, no hepatosplenomegaly Neurologic: PERRL, EOMI, accommodation nl, no face palsy, no dysarthria Psychiatric: A+Ox3, euthymic affect Results & Data Vital Signs (Past 12 Hours) Vital Signs Temp Pulse Pulse Resp BP Pulse Ox O2 Del Method 09/20/24 11:36 36.9 C 108 H 18 91/62 L 92 Nasal Cannula 09/20/24 10:49 105 H 18 91 Room Air 09/20/24 09:04 Nasal Cannula 09/20/24 07:42 36.9 C 84 18 104/67 98 Nasal Cannula 09/20/24 07:22 89 20 94 Room Air 09/20/24 07:18 82 09/20/24 03:51 36.6 C 94 H 18 98/62 L 97 Nasal Cannula O2 Flow Rate 09/20/24 11:36 2 09/20/24 10:49 09/20/24 09:04 2 09/20/24 07:42 2 09/20/24 07:22 09/20/24 07:18 09/20/24 03:51 2 Laboratory Results Cardiac Enzymes 09/19/24 09/19/24 Range/Units 12:52 19:01 Troponin I High Sens 4.2 3.7 (0-14) pg/ml CBC 09/20/24 Range/Units 05:25 WBC 9.51 (4.8-10.8) K/ul RBC 3.53 L (4.20-5.40) M/uL Hgb 11.5 L (12.0-16.0) g/dl Hct 33.7 L (37.0-47.0) % Plt Count 267 (130-400) K/uL Comprehensive Metabolic Panel 09/20/24 Range/Units 05:25 Sodium 138 (136-145) mmol/L Potassium 3.7 (3.5-5.1) mmol/L Chloride 105 (98-107) mmol/L Carbon Dioxide 27 (21-32) mmol/L BUN 9 (6-23) mg/dl Creatinine 1.10 (0.6-1.2) mg/dl Glucose 107 H (70-99(Fasting)) mg/dl Calcium 9.0 (8.6-10.3) mg/dl Intake and Output 09/19/24 09/20/24 09/20/24 22:59 06:59 14:59 Intake Total 240 / 1665 780 / 1665 Balance 240 / 1665 780 / 1665 Intake: Oral 240 / 1665 780 / 1665 Other: # Unmeasured Voids 1 2 Weight 59.058 kg Weight Measurement Method Built in [facility] Diagnostic Findings Telemetry reviewed: NSR with occ PVC; HR ranging 80-100 bmp Multiple EKG's reviewed since admission - No acute ischemic changes noted EKG reviewed from admission 09/19/24 at 23:47: NSR with PVCs incomplete RBBB non specific T wave abnormality Repeat EKG reviewed from 09/19 at 6:23 NSR, compared with prior EKG, PVC's are no longer present No acute ischemic changes echo report reviewed dated 09/19/24: limited report - compared with echo on 08/31/24 Normal LVEF at 60-64% Small sized anterior and right lateral pericardial effusion with fibrinous strands suggesting chronicity No echo indications of cardiac tamponade. Echo report reviewed from last admission dated 08/31/24: No wall motion abnormalities LVEF 65-70% Small pericardial effusion - anterior and right lateral wall No tamponade Chest X-Ray 09/18/24 23:46 XR chest 1V portable CLINICAL HISTORY: Sepsis. COMPARISON STUDY: Chest radiograph and chest CT August 31, 2024. FINDINGS: Lung volumes are normal. Emphysema is again noted. Lungs are clear. There is no pneumothorax or pleural effusion. Cardiac size is normal. Mediastinal contours are normal. There is no evidence for pulmonary edema. IMPRESSION: No acute cardiopulmonary findings. Emphysema. No significant change in appearance of the chest ACT 112: Negative or not required by law. Electronically signed by: Shaheed Xiong M.D. 09/19/2024 7:01 AM Medications Administered Current Inpatient Medications Acetaminophen (Acetaminophen 325 Mg Tab) 650 mg PO Q4H PRN PRN Reason: Pain or Fever Stop: 10/19/24 03:11 Albuterol (Albuterol Hfa 8 Gm Inhaler) 2 puffs INH Q4H PRN PRN Reason: cough,SOB or wheezing Stop: 10/19/24 03:11 Albuterol (Albut/Ipratrop 3mg/0.5mg Neb 3 Ml Vial) 3 ml NEB QIDR JUDITH; Protocol Stop: 10/19/24 06:59 Last Admin: 09/20/24 10:48 Dose: 3 ml Albuterol (Albut/Ipratrop 3mg/0.5mg Neb 3 Ml Vial) 3 ml NEB Q4H PRN; Protocol PRN Reason: Shortness Of Breath Or Wheezing Stop: 10/19/24 03:11 Aspirin (Aspirin 81 Mg Ectab) 81 mg PO QAM [facility] Stop: 10/19/24 08:59 Last Admin: 09/20/24 08:21 Dose: 81 mg Doxycycline Hyclate (Doxycycline Hyclate 100 Mg Cap) 100 mg PO BID [facility] Stop: 09/26/24 08:59 Last Admin: 09/20/24 08:18 Dose: 100 mg Empagliflozin (Empagliflozin 25 Mg Tab) 25 mg PO QAM [facility] Stop: 10/19/24 08:59 Last Admin: 09/20/24 08:18 Dose: 25 mg Enoxaparin Sodium (Enoxaparin Inj 40 Mg/0.4 Ml Syr) 40 mg SQ Q24H [facility] Stop: 10/19/24 08:59 Last Admin: 09/20/24 08:21 Dose: 40 mg Fluticasone/Vilanterol (Fluticasone/Vilanterol 200/25mcg 14 Puffs/Inhaler) 1 puffs INH DAILY [facility] Stop: 10/19/24 08:59 Last Admin: 09/20/24 08:20 Dose: 1 puffs Folic Acid (Folic Acid 1 Mg Tab) 1 mg PO QAM [facility] Stop: 10/19/24 08:59 Last Admin: 09/20/24 08:18 Dose: 1 mg Guaifenesin (Guaifenesin 600 Mg Tabcr) 600 mg PO Q12 JUDITH Stop: 10/19/24 08:59 Last Admin: 09/20/24 08:20 Dose: 600 mg Guaifenesin/Dextromethorphan (Guaifenesin/Dextrom Syrup 100mg/10mg 5ml Udc) 5 ml PO Q6H PRN PRN Reason: Cough Stop: 10/19/24 10:49 Last Admin: 09/20/24 08:22 Dose: 5 ml Levothyroxine Sodium (Levothyroxine Sodium 75 Mcg Tablet) 75 mcg PO DAILYBB [facility] Stop: 10/19/24 06:29 Last Admin: 09/20/24 06:07 Dose: 75 mcg Lorazepam (Lorazepam 0.5 Mg Tab) 0.5 mg PO DAILY PRN PRN Reason: Anxiety Stop: 10/19/24 03:11 Last Admin: 09/19/24 21:28 Dose: 0.5 mg Magnesium Oxide (Magnesium Oxide 400 Mg Tab) 400 mg PO BID [facility] Stop: 10/19/24 08:59 Last Admin: 09/20/24 08:18 Dose: 400 mg Methocarbamol (Methocarbamol 500 Mg Tablet) 500 mg PO TID PRN PRN Reason: muscle spasms Stop: 10/19/24 03:11 Last Admin: 09/19/24 20:10 Dose: 500 mg Metoprolol Succinate (Metoprolol Succ 50mg Ext Rel Tab) 50 mg PO QAM [facility] Stop: 10/19/24 08:59 Last Admin: 09/20/24 11:28 Dose: 50 mg Metoprolol Succinate (Metoprolol Succ 25mg Ext Rel Tab) 25 mg PO HS [facility] Stop: 10/19/24 20:59 Last Admin: 09/19/24 19:34 Dose: Not Given Midodrine (Midodrine Hcl 2.5 Mg Tab) 5 mg PO 0800,1200 [facility] Stop: 10/21/24 07:59 Midodrine (Midodrine Hcl 2.5 Mg Tab) 2.5 mg PO 1700 [facility] Stop: 10/20/24 16:59 Nitroglycerin (Nitroglycerin Sl 0.4 Mg/Tab Tab) 0.4 mg SL Q5M PRN PRN Reason: Chest Pain Stop: 10/19/24 03:11 Oxycodone HCl (Oxycodone Hcl Ir 5 Mg Tab (Immediate Release)) 5 mg PO Q4H PRN PRN Reason: pain Stop: 10/03/24 03:11 Last Admin: 09/20/24 08:17 Dose: 5 mg Pantoprazole Sodium (Pantoprazole 40 Mg Tab) 40 mg PO BID [facility] Stop: 10/19/24 08:59 Last Admin: 09/20/24 08:20 Dose: 40 mg Paroxetine HCl (Paroxetine Hcl 20 Mg Tab) 40 mg PO HS [facility] Stop: 10/19/24 20:59 Last Admin: 09/19/24 20:06 Dose: 40 mg Polyethylene Glycol (Polyethylene (Miralax) 17 Gm Pack) 17 gm PO DAILY PRN PRN Reason: Constipation Stop: 10/19/24 03:11 Prednisone (Prednisone 20 Mg Tab) 40 mg PO DAILY [facility] Stop: 10/21/24 08:59 Pregabalin (Pregabalin 75 Mg Cap) 75 mg PO TID [facility] Stop: 10/19/24 08:59 Last Admin: 09/20/24 08:24 Dose: 75 mg Sacubitril/Valsartan (Valsartan/Sacubitril 26/24mg Tab) 1 tab PO HS [facility] Stop: 10/20/24 20:59 (2) Hypotension Hypotension type: unspecified hypotension type Qualified Code(s): I95.9 - Hypotension, unspecified
[2024-09-20] MEDS: MIDODRINE HCL 2.5 MG TAB PO SCH ×2 (12:20→16:28)
[2024-09-20] MEDS: MIDODRINE HCL 2.5 MG TAB PO ONE (12:30)
--- NOTE | 2024-09-20 14:49 | Hospitalist Progress Note ---
Date of Service September 20, 2024 Assessment & Plan (1) COPD exacerbation: Plan: Ms. Brown is a 59-year-old female with a past medical history of acute on chronic diastolic dysfunction with reduced EF35%, CKD stage III, chronic hypoxic respiratory failure COPDchronically on 2 L, anxiety, HLD, [place], CAD, hypothyroidism who was admitted due to generalized weakness. Patient recently admitted for acute on chronic hypoxia iso bronchitis and COPD exacerbation. Patient reports return of cough and feeling fatigued. Discussed concern that current medications for GDMT may be too much or require titrating. Also spent notable time discussing prednisone and perhaps need for a taper as she was adamant it was to be discontinued last visit. Patient worked with PT who notes that despite weakness she compensates well and can return home. #COPD exacerbation #History of chronic respiratory failure prior admission 2 step noted no further o2 need patient adamant against full steroid course last admission or other medication adjustments mild wheezing and rhonchi on admission, now resolved No leukocytosis Bio fire negative Chest x-ray okay Continue IV methyl pred 40mg, patient states she will transition to oral steroid 20mg prednisone, but no higher dose as fear of prior psych effects Empiric Doxy for now Continue Wixela Close monitor Duonebs qid, plan to adjust prn tomorrow overnight pulse ox ordered #Noncardiac Chest pain troponin negative ECHO with rec EF #Chronic heart failure with recovered EF #Ischemic Cardiomyopathy #Prior STEMI s/p bare metal stent in RCA #Chronic pericardial effusion ECHO 65-70%, anterior/right lateral pericardial effusion, no tamponade, appears chronic per ECHO report Recheck echo, last EF was 45%, 06/2023; stable pericardial effusion noted at that time On Jardiance/Aldactone at home - GDMT: *BetaB: continue metoprolol 50mg qam/25mg qpm, adjusted parameters *RAAS: Reduce entresto per cards "Reduce Entresto to 1/2 tab of the 25 mg dose. Pharmacy reports they are unable to cut medication - so will change to 1 tab at bedtime" *Narendra: discontinue Aldactone *SGLT: continue Jardiance *ICD: Address outpatient Carefully monitor I&O, did receive 500 cc NSS in ED -Continue ASA -On repatha as OP -Midodrine increased to 5mg am, noon, and continue 2.5mg qpm # right cerebellar cavernoma High risk of bleeding to avoid antiplatelet/anticoagulation as per cardiology notes As per cardiology notes it has been considered that patient is high risk of bleeding and possible if hemorrhage occurred and was deemed high risk to proceed with ischemic workup and potential need for dual antiplatelet therapy ,if cardiac cath was deemed necessary medical management recommended. Also plan for repeat MRI but seems not done yet #GERD On omeprazole #Hyperlipidemia On Repatha #Hypothyroidism On Synthyroid #Depression and anxiety On Paxil and Ativan as needed DVT prophylaxis Lovenox Disposition Med/telemetry Full code. Admission and Anticipated Discharge Date Admission Date: September 19, 2024 Subjective Patient reports feeling much better overall denies any acute concerns this morning, outside of generalized weakness Off of oxygen. states that she worries about her night time oxygen levels Also reports concern about prednisone--discussed additional day of IV then transition to lower dose prednisone (she reports noted psych issues with 40mg and higher, but recalls being ok on a 20mg or lower dose) Physical Exam Constitutional: WD/WN, vitals as above Respiratory: normal respiratory effort, lungs clear to auscultation Cardiovascular: RRR, no murmur, no edema Musculoskeletal: no cyanosis or clubbing, extremities motor strength 5/5 Results & Data Results & Data Vital Signs (Past 12 Hours) Vital Signs Temp Pulse Pulse Resp BP Pulse Ox O2 Del Method 09/20/24 14:38 84 15 96 Room Air 09/20/24 14:32 85 09/20/24 11:36 36.9 C 108 H 18 91/62 L 92 Nasal Cannula 09/20/24 10:49 105 H 18 91 Room Air 09/20/24 09:04 Nasal Cannula 09/20/24 07:42 36.9 C 84 18 104/67 98 Nasal Cannula 09/20/24 07:22 89 20 94 Room Air 09/20/24 07:18 82 09/20/24 03:51 36.6 C 94 H 18 98/62 L 97 Nasal Cannula O2 Flow Rate 09/20/24 14:38 09/20/24 14:32 09/20/24 11:36 2 09/20/24 10:49 09/20/24 09:04 2 09/20/24 07:42 2 09/20/24 07:22 09/20/24 07:18 09/20/24 03:51 2 Laboratory Results Home Medications Medication Instructions Recorded Confirmed Last Taken albuterol sulfate 90 mcg/actuation 2 puff inhalation Q4H PRN 03/10/22 09/19/24 03/09/22 aerosol inhaler cough,SOB or wheezing aspirin 81 mg tablet,delayed 81 mg PO QAM 03/10/22 09/19/24 08/30/24 release evolocumab 420 mg/3.5 mL 420 mg subcut Q30D 03/10/22 09/19/24 03/30/23 subcutaneous wearable injector (Repatha Pushtronex) folic acid 1 mg tablet 1 mg PO QAM 03/10/22 09/19/24 08/30/24 levothyroxine 75 mcg tablet 75 mcg PO QAM 03/10/22 09/19/24 08/30/24 (Synthroid) lorazepam 0.5 mg tablet 0.5 mg PO DAILY PRN Anxiety 03/10/22 09/19/24 03/09/22 metoprolol succinate 25 mg 25 - 50 mg PO UD 03/10/22 09/19/24 08/30/24 tablet,extended release 24 hr omeprazole 20 mg capsule,delayed 20 mg PO BID 03/10/22 09/19/24 08/30/24 release pregabalin 75 mg capsule 75 mg PO TID 03/10/22 09/19/24 08/30/24 midodrine 2.5 mg tablet 2.5 mg PO TID@0800,1200,1700 #90 05/06/22 09/19/24 08/30/24 tabs acetaminophen 325 mg tablet 325 mg PO Q6H PRN Fever Or Pain 10/19/22 09/19/24 Unknown methocarbamol 500 mg tablet 500 mg PO TID PRN muscle spasms 10/19/22 09/19/24 04/29/23 ondansetron HCl 4 mg tablet 4 mg PO Q8 PRN Nausea 10/19/22 09/19/24 Unknown albuterol sulfate 2.5 mg/3 mL 2.5 mg continuous nebulization QID 06/22/23 09/19/24 02/03/24 (0.083 %) solution for nebulization PRN Wheezing empagliflozin 25 mg tablet 25 mg PO QAM heart failure 01/21/24 09/19/24 08/30/24 (Jardiance) paroxetine HCl 40 mg tablet (Paxil) 40 mg PO HS 01/21/24 09/19/24 08/30/24 sacubitril 24 mg-valsartan 26 mg 1 tab PO BID 01/21/24 09/19/24 08/30/24 tablet (Entresto) fluticasone 250 mcg-salmeterol 50 1 inh inhalation BID #60 ea 09/05/24 09/19/24 Unknown mcg/dose blistr powdr for inhalation (Patriciaxela Inhub) guaifenesin 600 mg tablet, 600 mg PO Q12 #30 tabs 09/05/24 09/19/24 Unknown extended release 12 hr (Mucinex) oxycodone 5 mg tablet 5 mg PO Q4H PRN pain #15 tabs 09/05/24 09/19/24 Unknown Active Medications Generic Name Dose Route Start Last Admin Trade Name Freq PRN Reason Stop Dose Admin Albuterol 3 ml 09/19/24 07:00 09/20/24 14:37 Albut/Ipratrop 3mg/0.5mg Neb 3 Ml Vial NEB 10/19/24 06:59 3 ml QIDR JUDITH Administration Protocol Aspirin 81 mg 09/19/24 09:00 09/20/24 08:21 Aspirin 81 Mg Ectab PO 10/19/24 08:59 81 mg QAM JUDITH Administration Doxycycline Hyclate 100 mg 09/19/24 09:00 09/20/24 08:18 Doxycycline Hyclate 100 Mg Cap PO 09/26/24 08:59 100 mg BID JUDITH Administration Empagliflozin 25 mg 09/19/24 09:00 09/20/24 08:18 Empagliflozin 25 Mg Tab PO 10/19/24 08:59 25 mg QAM JUDITH Administration Enoxaparin Sodium 40 mg 09/19/24 09:00 09/20/24 08:21 Enoxaparin Inj 40 Mg/0.4 Ml Syr SQ 10/19/24 08:59 40 mg Q24H JUDITH Administration Fluticasone/Vilanterol 1 puffs 09/19/24 09:00 09/20/24 08:20 Fluticasone/Vilanterol 200/25mcg 14 Puffs/Inhaler INH 10/19/24 08:59 1 puffs DAILY JUDITH Administration Folic Acid 1 mg 09/19/24 09:00 09/20/24 08:18 Folic Acid 1 Mg Tab PO 10/19/24 08:59 1 mg QAM JUDITH Administration Guaifenesin 600 mg 09/19/24 09:00 09/20/24 08:20 Guaifenesin 600 Mg Tabcr PO 10/19/24 08:59 600 mg Q12 JUDITH Administration Guaifenesin/Dextromethorphan 5 ml 09/19/24 10:50 09/20/24 08:22 Guaifenesin/Dextrom Syrup 100mg/10mg 5ml Udc PO 10/19/24 10:49 5 ml Q6H PRN Administration Cough Levothyroxine Sodium 75 mcg 09/19/24 06:30 09/20/24 06:07 Levothyroxine Sodium 75 Mcg Tablet PO 10/19/24 06:29 75 mcg DAILYBB JUDITH Administration Lorazepam 0.5 mg 09/19/24 03:12 09/19/24 21:28 Lorazepam 0.5 Mg Tab PO 10/19/24 03:11 0.5 mg DAILY PRN Administration Anxiety Magnesium Oxide 400 mg 09/19/24 09:00 09/20/24 08:18 Magnesium Oxide 400 Mg Tab PO 10/19/24 08:59 400 mg BID JUDITH Administration Methocarbamol 500 mg 09/19/24 03:12 09/19/24 20:10 Methocarbamol 500 Mg Tablet PO 10/19/24 03:11 500 mg TID PRN Administration muscle spasms Metoprolol Succinate 50 mg 09/19/24 09:00 09/20/24 11:28 Metoprolol Succ 50mg Ext Rel Tab PO 10/19/24 08:59 50 mg QAM JUDITH Administration Metoprolol Succinate 25 mg 09/19/24 21:00 09/19/24 19:34 Metoprolol Succ 25mg Ext Rel Tab PO 10/19/24 20:59 Not Given HS JUDITH Midodrine 2.5 mg 09/20/24 17:00 09/20/24 16:28 Midodrine Hcl 2.5 Mg Tab PO 10/20/24 16:59 2.5 mg 1700 JUDITH Administration Oxycodone HCl 5 mg 09/19/24 03:12 09/20/24 12:47 Oxycodone Hcl Ir 5 Mg Tab (Immediate Release) PO 10/03/24 03:11 5 mg Q4H PRN Administration pain Pantoprazole Sodium 40 mg 09/19/24 09:00 09/20/24 08:20 Pantoprazole 40 Mg Tab PO 10/19/24 08:59 40 mg BID JUDITH Administration Paroxetine HCl 40 mg 09/19/24 21:00 09/19/24 20:06 Paroxetine Hcl 20 Mg Tab PO 10/19/24 20:59 40 mg HS JUDITH Administration Pregabalin 75 mg 09/19/24 09:00 09/20/24 13:26 Pregabalin 75 Mg Cap PO 10/19/24 08:59 75 mg TID JUDITH Administration Medications Administered Home Medications Medication Instructions Recorded Confirmed Last Taken albuterol sulfate 90 mcg/actuation 2 puff inhalation Q4H PRN 03/10/22 09/19/24 03/09/22 aerosol inhaler cough,SOB or wheezing aspirin 81 mg tablet,delayed 81 mg PO QAM 03/10/22 09/19/24 08/30/24 release evolocumab 420 mg/3.5 mL 420 mg subcut Q30D 03/10/22 09/19/24 03/30/23 subcutaneous wearable injector (Repatha Pushtronex) folic acid 1 mg tablet 1 mg PO QAM 03/10/22 09/19/24 08/30/24 levothyroxine 75 mcg tablet 75 mcg PO QAM 03/10/22 09/19/24 08/30/24 (Synthroid) lorazepam 0.5 mg tablet 0.5 mg PO DAILY PRN Anxiety 03/10/22 09/19/24 03/09/22 metoprolol succinate 25 mg 25 - 50 mg PO UD 03/10/22 09/19/24 08/30/24 tablet,extended release 24 hr omeprazole 20 mg capsule,delayed 20 mg PO BID 03/10/22 09/19/24 08/30/24 release pregabalin 75 mg capsule 75 mg PO TID 03/10/22 09/19/24 08/30/24 midodrine 2.5 mg tablet 2.5 mg PO TID@0800,1200,1700 #90 05/06/22 09/19/24 08/30/24 tabs acetaminophen 325 mg tablet 325 mg PO Q6H PRN Fever Or Pain 10/19/22 09/19/24 Unknown methocarbamol 500 mg tablet 500 mg PO TID PRN muscle spasms 10/19/22 09/19/24 04/29/23 ondansetron HCl 4 mg tablet 4 mg PO Q8 PRN Nausea 10/19/22 09/19/24 Unknown albuterol sulfate 2.5 mg/3 mL 2.5 mg continuous nebulization QID 06/22/23 09/19/24 02/03/24 (0.083 %) solution for nebulization PRN Wheezing empagliflozin 25 mg tablet 25 mg PO QAM heart failure 01/21/24 09/19/24 08/30/24 (Jardiance) paroxetine HCl 40 mg tablet (Paxil) 40 mg PO HS 01/21/24 09/19/24 08/30/24 sacubitril 24 mg-valsartan 26 mg 1 tab PO BID 01/21/24 09/19/24 08/30/24 tablet (Entresto) fluticasone 250 mcg-salmeterol 50 1 inh inhalation BID #60 ea 09/05/24 09/19/24 Unknown mcg/dose blistr powdr for inhalation (Wixela Inhub) guaifenesin 600 mg tablet, 600 mg PO Q12 #30 tabs 09/05/24 09/19/24 Unknown extended release 12 hr (Mucinex) oxycodone 5 mg tablet 5 mg PO Q4H PRN pain #15 tabs 09/05/24 09/19/24 Unknown Active Medications Generic Name Dose Route Start Last Admin Trade Name Freq PRN Reason Stop Dose Admin Albuterol 3 ml 09/19/24 07:00 09/20/24 14:37 Albut/Ipratrop 3mg/0.5mg Neb 3 Ml Vial NEB 10/19/24 06:59 3 ml QIDR JUDITH Administration Protocol Aspirin 81 mg 09/19/24 09:00 09/20/24 08:21 Aspirin 81 Mg Ectab PO 10/19/24 08:59 81 mg QAM JUDITH Administration Doxycycline Hyclate 100 mg 09/19/24 09:00 09/20/24 08:18 Doxycycline Hyclate 100 Mg Cap PO 09/26/24 08:59 100 mg BID JUDITH Administration Empagliflozin 25 mg 09/19/24 09:00 09/20/24 08:18 Empagliflozin 25 Mg Tab PO 10/19/24 08:59 25 mg QAM JUDITH Administration Enoxaparin Sodium 40 mg 09/19/24 09:00 09/20/24 08:21 Enoxaparin Inj 40 Mg/0.4 Ml Syr SQ 10/19/24 08:59 40 mg Q24H JUDITH Administration Fluticasone/Vilanterol 1 puffs 09/19/24 09:00 09/20/24 08:20 Fluticasone/Vilanterol 200/25mcg 14 Puffs/Inhaler INH 10/19/24 08:59 1 puffs DAILY JUDITH Administration Folic Acid 1 mg 09/19/24 09:00 09/20/24 08:18 Folic Acid 1 Mg Tab PO 10/19/24 08:59 1 mg QAM JUDITH Administration Guaifenesin 600 mg 09/19/24 09:00 09/20/24 08:20 Guaifenesin 600 Mg Tabcr PO 10/19/24 08:59 600 mg Q12 JUDITH Administration Guaifenesin/Dextromethorphan 5 ml 09/19/24 10:50 09/20/24 08:22 Guaifenesin/Dextrom Syrup 100mg/10mg 5ml Udc PO 10/19/24 10:49 5 ml Q6H PRN Administration Cough Levothyroxine Sodium 75 mcg 09/19/24 06:30 09/20/24 06:07 Levothyroxine Sodium 75 Mcg Tablet PO 10/19/24 06:29 75 mcg DAILYBB JUDITH Administration Lorazepam 0.5 mg 09/19/24 03:12 09/19/24 21:28 Lorazepam 0.5 Mg Tab PO 10/19/24 03:11 0.5 mg DAILY PRN Administration Anxiety Magnesium Oxide 400 mg 09/19/24 09:00 09/20/24 08:18 Magnesium Oxide 400 Mg Tab PO 10/19/24 08:59 400 mg BID JUDITH Administration Methocarbamol 500 mg 09/19/24 03:12 09/19/24 20:10 Methocarbamol 500 Mg Tablet PO 10/19/24 03:11 500 mg TID PRN Administration muscle spasms Metoprolol Succinate 50 mg 09/19/24 09:00 09/20/24 11:28 Metoprolol Succ 50mg Ext Rel Tab PO 10/19/24 08:59 50 mg QAM JUDITH Administration Metoprolol Succinate 25 mg 09/19/24 21:00 09/19/24 19:34 Metoprolol Succ 25mg Ext Rel Tab PO 10/19/24 20:59 Not Given HS JUDITH Midodrine 2.5 mg 09/20/24 17:00 09/20/24 16:28 Midodrine Hcl 2.5 Mg Tab PO 10/20/24 16:59 2.5 mg 1700 JUDITH Administration Oxycodone HCl 5 mg 09/19/24 03:12 09/20/24 12:47 Oxycodone Hcl Ir 5 Mg Tab (Immediate Release) PO 10/03/24 03:11 5 mg Q4H PRN Administration pain Pantoprazole Sodium 40 mg 09/19/24 09:00 09/20/24 08:20 Pantoprazole 40 Mg Tab PO 10/19/24 08:59 40 mg BID JUDITH Administration Paroxetine HCl 40 mg 09/19/24 21:00 09/19/24 20:06 Paroxetine Hcl 20 Mg Tab PO 10/19/24 20:59 40 mg HS JUDITH Administration Pregabalin 75 mg 09/19/24 09:00 09/20/24 13:26 Pregabalin 75 Mg Cap PO 10/19/24 08:59 75 mg TID JUDITH Administration
[2024-09-20] MEDS ORDERED: VALSARTAN/SACUBITRIL 26/24MG TAB PO SCH (21:00)
[2024-09-20] MEDS: VALSARTAN/SACUBITRIL 26/24MG TAB PO SCH (21:55)
[2024-09-21] MEDS: methylPREDNISolone 40 MG in SYRINGE 0 ML IV SCH (07:36)
[2024-09-21 07:46] LABS: Hematocrit (blood only) 35.7 % (37.0-47.0); Hemoglobin 11.6 g/dl (12.0-16.0); Mean Corpuscular Hgb Conc 32.5 g/dL (32.0-36.0); Mean Corpuscular Volume 98.3 fL (80.0-100.0); Mean Platelet Volume 9.9 fL (9.4-12.4); Platelet Count 264 K/uL (130-400); RDW Coefficient of Variation 13.8 % (11.5-14.5); RDW Standard Deviation 50.2 fL (36.4-46.3); Red Blood Count 3.63 M/uL (4.20-5.40); White Blood Count 10.43 K/ul (4.8-10.8)
[2024-09-21 07:57] LABS: BUN Creatinine Ratio 12.7 (10-20); Calcium 8.6 mg/dl (8.6-10.3); Creatinine Clr Calc Pharmacy 40.2 ml/min; Magnesium 2.1 mg/dl (1.7-2.4); Phosphorus 2.4 mg/dl (2.5-4.9); Potassium 4.1 mmol/L (3.5-5.1)
[2024-09-21] MEDS ORDERED: predniSONE 20 MG TAB PO SCH (09:00)
[2024-09-21] MEDS ORDERED: methylPREDNISolone 125 MG/2 ML VIAL IV SCH (09:00)
--- NOTE | 2024-09-21 09:06 | Cardiology Progress Note ---
Date of Service September 21, 2024 Assessment & Plan (1) COPD exacerbation: (2) Hypotension: (3) Chronic heart failure with preserved ejection fraction: Plan 09/20/24 Patient admitted with atypical chest pain, SOB/cough, suggesting COPD exacerbation. Chest pain was musculoskeletal in nature with coughing. Negative HS troponin x3 since admission EKG without acute ischemic changes. Echo with normal LVEF at 65% and no wall motion abnormalities. stable mild pericardial effusion (chronic) She has a long history of variable LVEF ranging 35-55% dating back to 2010 at time of her BMS to the [facility]. EF with med management. Medications have been limited by hypotension and midodrine added last year. Multiple metoprolol doses have been held since admission due to borderline hypotension. Patient reports worsening palpitations when not receiving her metoprolol. Recommend resuming metoprolol 50 mg in AM and 25 mg in PM. Change holding parameters for systolic BP < 90. Increase midodrine to 5 mg in AM and at lunch. Will keep 2.5 mg in the evening for now. Continue Jardiance for now Spironolactone previously stopped due to URNULY. Continue to hold. Reduce Entresto to 1/2 tab of the 25 mg dose. Pharmacy reports they are unable to cut medication - so will change to 1 tab at bedtime. IF BP improves with higher dose midodrine, will increase Entresto back to BID dosing. Currently appears euvolemic. Continue ASA. Patient intolerant to statins. She is to be taking PCSK9 inhib at home. 09/21/24: Patient doing well this morning. Improved respiratory status from admission. No chest pain. BP improved this morning. She was mildly hypotensive last night. Increase midodrine to 5 mg TID. She was previously on this dose as an outpatient last year per review of records. Mild renal insufficiency today with creatinine of 1.3. Monitor. Reduce Jardiance to 10 mg daily Continue Entresto 26/24 mg - 1 tablet in the PM Continue metoprolol succinate 50 mg in AM and 25 mg in PM (holding parameters changed yesterday to systolic BP < 90) Currently appears euvolemic. Spironolactone previously discontinue due to UNRULY/hyperkalemia. Do not resume. continue ASA. continue PCSK9 inhib at home on discharge. Would consider repeating nocturnal oximetry tonight Case discussed with Dr. Kearns I spent a total of 30 minutes on the date of service in preparation, delivery, and documentation of the care provided to this patient, excluding any time spent in the performance of separately billed services. Angeline Madsen PA-C Department of Cardiology, [facility] This chart was completed in part utilizing Speech Voice Recognition Software. Grammatical errors, random word insertions, pronoun errors, and incomplete sentences are an occasional consequence of this system due to software limitations, ambient noise, and hardware issues. Any formal questions or concerns about the content, text, or information contained within the body of this dictation should be directly addressed to the provider for clarification. Admission and Anticipated Discharge Date Admission Date: September 19, 2024 Supervising Physician Co-Signing Physician Notes Attending attestation: Case reviewed with the advanced practitioner. I have personally performed a history and physical examination on the patient. I have reviewed the advanced practitioner's documentation on the date of service referenced in note, and I agree with, and take responsibility for the plan of care. I spent a total of 20 minutes coordinating, documenting, and providing care for this patient excluding time spent in the performance of separately billed services or time spent by another provider. Calvin Kearns, DO Subjective Patient resting in bed comfortably, eating breakfast. Reports her SOB/cough has improved since admission. No recurrent chest pain. No dizziness overnight or this morning. No orthopnea, PND or edema. She reports feeling tired. She did not sleep at all last night and feels the nocturnal oximetry test will not be accurate. She wishes to try and repeat test tonight Review of Systems Review of Systems: All systems reviewed & are unremarkable except as noted in HPI & below Physical Exam Constitutional: WD/WN, vitals as above average body habitus; no acute distress Neck: trachea midline, no thyromegaly normal visual inspection Respiratory: normal respiratory effort; no respiratory distress Auscultation: + diminished lung sounds Cardiovascular: Rate/Rhythm: regular rate and regular rhythm Heart Sounds: normal S1 and normal S2; no murmur Vessels: no JVD Extremities: no edema Gastrointestinal (Abdomen): normal bowel sounds, soft, nontender, no hepatosplenomegaly Neurologic: PERRL, EOMI, accommodation nl, no face palsy, no dysarthria Psychiatric: A+Ox3, euthymic affect Results & Data Vital Signs (Past 12 Hours) Vital Signs Temp Pulse Pulse Pulse Resp BP Pulse Ox 10/30/24 07:57 36.6 C 66 20 114/76 09/21/24 07:44 09/21/24 07:21 64 17 98 09/21/24 07:14 68 09/21/24 03:30 37.2 C 72 18 100/67 94 09/21/24 02:33 78 09/21/24 00:12 80 09/20/24 23:26 73 09/20/24 23:03 37.1 C 82 18 98/60 L 94 09/20/24 22:52 09/20/24 22:45 80 Pulse Ox O2 Del Method O2 Del Method O2 Flow Rate FiO2 09/21/24 07:57 Room Air 09/21/24 07:44 Room Air 09/21/24 07:21 Room Air 21 09/21/24 07:14 09/21/24 03:30 Room Air 09/21/24 02:33 95 Room Air 09/21/24 00:12 96 Room Air 09/20/24 23:26 09/20/24 23:03 Room Air 09/20/24 22:52 Nasal Cannula 2 09/20/24 22:45 97 Room Air Laboratory Results CBC 09/21/24 Range/Units 07:03 WBC 10.43 (4.8-10.8) K/ul RBC 3.63 L (4.20-5.40) M/uL Hgb 11.6 L (12.0-16.0) g/dl Hct 35.7 L (37.0-47.0) % Plt Count 264 (130-400) K/uL Comprehensive Metabolic Panel 09/21/24 Range/Units 07:03 Sodium 138 (136-145) mmol/L Potassium 4.1 (3.5-5.1) mmol/L Chloride 105 (98-107) mmol/L Carbon Dioxide 29 (21-32) mmol/L BUN 17 (6-23) mg/dl Creatinine 1.34 H (0.6-1.2) mg/dl Glucose 95 (70-99(Fasting)) mg/dl Calcium 8.6 (8.6-10.3) mg/dl Intake and Output 09/20/24 09/21/24 09/21/24 22:59 06:59 14:59 Intake Total 1230 / 1730 500 / 1730 Balance 1230 / 1730 500 / 1730 Intake: Oral 1230 / 1730 500 / 1730 Other: # Unmeasured Voids 2 1 Weight 58.4 kg Weight Measurement Method Built in [facility] Diagnostic Findings Telemetry reviewed: NSR in the 70's. Occ PVC. No arrhythmias Medications Administered Current Inpatient Medications Acetaminophen (Acetaminophen 325 Mg Tab) 650 mg PO Q4H PRN PRN Reason: Pain or Fever Stop: 10/19/24 03:11 Albuterol (Albuterol Hfa 8 Gm Inhaler) 2 puffs INH Q4H PRN PRN Reason: cough,SOB or wheezing Stop: 10/19/24 03:11 Albuterol (Albut/Ipratrop 3mg/0.5mg Neb 3 Ml Vial) 3 ml NEB QIDR [facility]; Protocol Stop: 10/19/24 06:59 Last Admin: 09/21/24 07:21 Dose: 3 ml Albuterol (Albut/Ipratrop 3mg/0.5mg Neb 3 Ml Vial) 3 ml NEB Q4H PRN; Protocol PRN Reason: Shortness Of Breath Or Wheezing Stop: 10/19/24 03:11 Aspirin (Aspirin 81 Mg Ectab) 81 mg PO QAM [facility] Stop: 10/19/24 08:59 Last Admin: 09/21/24 07:38 Dose: 81 mg Doxycycline Hyclate (Doxycycline Hyclate 100 Mg Cap) 100 mg PO BID [facility] Stop: 09/26/24 08:59 Last Admin: 09/21/24 07:38 Dose: 100 mg Empagliflozin (Empagliflozin 10 Mg Tab) 10 mg PO QAM [facility] Stop: 10/22/24 08:59 Enoxaparin Sodium (Enoxaparin Inj 40 Mg/0.4 Ml Syr) 40 mg SQ Q24H [facility] Stop: 10/19/24 08:59 Last Admin: 09/21/24 07:38 Dose: 40 mg Fluticasone/Vilanterol (Fluticasone/Vilanterol 200/25mcg 14 Puffs/Inhaler) 1 puffs INH DAILY [facility] Stop: 10/19/24 08:59 Last Admin: 09/21/24 07:36 Dose: 1 puffs Folic Acid (Folic Acid 1 Mg Tab) 1 mg PO QAM [facility] Stop: 10/19/24 08:59 Last Admin: 09/21/24 07:39 Dose: 1 mg Guaifenesin (Guaifenesin 600 Mg Tabcr) 600 mg PO Q12 JUDITH Stop: 10/19/24 08:59 Last Admin: 09/21/24 07:38 Dose: 600 mg Guaifenesin/Dextromethorphan (Guaifenesin/Dextrom Syrup 100mg/10mg 5ml Udc) 5 ml PO Q6H PRN PRN Reason: Cough Stop: 10/19/24 10:49 Last Admin: 09/21/24 07:38 Dose: 5 ml Methylprednisolone 40 mg/ (Syringe) 0.64 mls @ 1.5 mls/min IV TODAY@0900 JUDITH Stop: 10/21/24 08:59 Last Admin: 09/21/24 07:36 Dose: 1.5 mls/min Levothyroxine Sodium (Levothyroxine Sodium 75 Mcg Tablet) 75 mcg PO DAILYBB JUDITH Stop: 10/19/24 06:29 Last Admin: 09/21/24 05:36 Dose: 75 mcg Lorazepam (Lorazepam 0.5 Mg Tab) 0.5 mg PO DAILY PRN PRN Reason: Anxiety Stop: 10/19/24 03:11 Last Admin: 09/20/24 21:53 Dose: 0.5 mg Magnesium Oxide (Magnesium Oxide 400 Mg Tab) 400 mg PO BID [facility] Stop: 10/19/24 08:59 Last Admin: 09/21/24 07:39 Dose: 400 mg Methocarbamol (Methocarbamol 500 Mg Tablet) 500 mg PO TID PRN PRN Reason: muscle spasms Stop: 10/19/24 03:11 Last Admin: 09/19/24 20:10 Dose: 500 mg Metoprolol Succinate (Metoprolol Succ 50mg Ext Rel Tab) 50 mg PO QAM JUDITH Stop: 10/19/24 08:59 Last Admin: 09/21/24 07:39 Dose: 50 mg Metoprolol Succinate (Metoprolol Succ 25mg Ext Rel Tab) 25 mg PO HS [facility] Stop: 10/19/24 20:59 Last Admin: 09/20/24 21:55 Dose: 25 mg Midodrine (Midodrine Hcl 2.5 Mg Tab) 5 mg PO 0800,1200 JUDITH Stop: 10/21/24 07:59 Last Admin: 09/21/24 07:39 Dose: 5 mg Midodrine (Midodrine Hcl 2.5 Mg Tab) 2.5 mg PO 1700 JUDITH Stop: 10/20/24 16:59 Last Admin: 09/20/24 16:28 Dose: 2.5 mg Nitroglycerin (Nitroglycerin Sl 0.4 Mg/Tab Tab) 0.4 mg SL Q5M PRN PRN Reason: Chest Pain Stop: 10/19/24 03:11 Oxycodone HCl (Oxycodone Hcl Ir 5 Mg Tab (Immediate Release)) 5 mg PO Q4H PRN PRN Reason: pain Stop: 10/03/24 03:11 Last Admin: 09/21/24 07:52 Dose: 5 mg Pantoprazole Sodium (Pantoprazole 40 Mg Tab) 40 mg PO BID JUDITH Stop: 10/19/24 08:59 Last Admin: 09/21/24 07:39 Dose: 40 mg Paroxetine HCl (Paroxetine Hcl 20 Mg Tab) 40 mg PO HS JUDITH Stop: 10/19/24 20:59 Last Admin: 09/20/24 21:54 Dose: 40 mg Polyethylene Glycol (Polyethylene (Miralax) 17 Gm Pack) 17 gm PO DAILY PRN PRN Reason: Constipation Stop: 10/19/24 03:11 Pregabalin (Pregabalin 75 Mg Cap) 75 mg PO TID JUDITH Stop: 10/19/24 08:59 Last Admin: 09/21/24 07:52 Dose: 75 mg Sacubitril/Valsartan (Valsartan/Sacubitril 26/24mg Tab) 1 tab PO HS JUDITH Stop: 10/20/24 20:59 Last Admin: 09/20/24 21:55 Dose: 1 tab (2) Hypotension Hypotension type: unspecified hypotension type Qualified Code(s): I95.9 - Hypotension, unspecified
[2024-09-21] MEDS: MIDODRINE HCL 2.5 MG TAB PO SCH (13:05)
--- NOTE | 2024-09-21 15:35 | Hospitalist Progress Note ---
Date of Service September 21, 2024 Assessment & Plan (1) COPD exacerbation: Plan: Ms. Brown is a 59-year-old female with a past medical history of acute on chronic diastolic dysfunction with reduced EF35%, CKD stage III, chronic hypoxic respiratory failure COPDchronically on 2 L, anxiety, HLD, [place], CAD, hypothyroidism who was admitted due to generalized weakness. Patient recently admitted for acute on chronic hypoxia iso bronchitis and COPD exacerbation. Acute COPD exacerbation H/O Chronic respiratory failure with hypoxia and hypercarbia Last admission 2 step: Did not qualify for supplemental oxygen patient adamant against full steroid course last admission or other medication adjustments --CXR:No acute cardiopulmonary findings. Emphysema. No significant change in appearance of the chest. --Biofire:Negative --Continue IV Solu-Medrol, nebs Continue home inhalers Also on doxycycline Nocturnal oximetry study pending Transition to oral prednisone as able Noncardiac Chest pain Troponin negative ECHO with rec EF Chronic heart failure with recovered EF Ischemic Cardiomyopathy Prior STEMI s/p bare metal stent in RCA Chronic pericardial effusion ECHO 65-70%, anterior/right lateral pericardial effusion, no tamponade, appears chronic per ECHO report Recheck echo, last EF was 45%, 06/2023; stable pericardial effusion noted at that time -- Continue Entresto 26/24 mg 1 tablet every afternoon Continue metoprolol, aspirin Started on Jardiance Increase midodrine to 5 mg 3 times daily Spironolactone previously discontinued due to UNRULY/hyperkalemia Appreciate cardiology input Also on Repatha as outpatient Right cerebellar cavernoma High risk of bleeding to avoid antiplatelet/anticoagulation as per cardiology notes As per cardiology notes it has been considered that patient is high risk of bleeding and possible if hemorrhage occurred and was deemed high risk to proceed with ischemic workup and potential need for dual antiplatelet therapy ,if cardiac cath was deemed necessary medical management recommended. Also plan for repeat MRI but seems not done yet GERD Continue PPI Hyperlipidemia Continue Repatha Hypothyroidism Continue levothyroxine Depression and anxiety On Paxil and Ativan as needed DVT Px: Lovenox SQ CODE STATUS Full code Disposition Expected discharge home in stable Admission and Anticipated Discharge Date Admission Date: September 19, 2024 Subjective Patient is seen and examined at bedside States feeling very tired today Poor sleep overnight Less cough, dyspnea today Denies any chest pain, nausea, vomiting, abdominal pain No other complaints Review of Systems Review of Systems: All systems reviewed & are unremarkable except as noted in Subjective Physical Exam Physical Exam: Physical Exam: Vitals signs as noted above General Appearance:Moderately built and nourished, no apparent distress Head: normocephalic, Atraumatic Eyes: normal inspection, EOMI Neck: supple, Trachea midline Respiratory/Chest: Decreased breath sounds, CTA, No accessory muscle use Cardiovascular: S1, S2, No murmur Abdomen/GI:Soft, Non tender, Bowel sounds present Extremities/Musculoskeletal:normal inspection, no edema Neurologic/Psych:AAOX3, grossly no focal neurological deficits Skin: normal color, warm Results & Data Results & Data Vital Signs (Past 12 Hours) Vital Signs Temp Pulse Pulse Resp BP Pulse Ox O2 Del Method 09/21/24 14:27 67 09/21/24 11:46 36.8 C 67 18 91/55 L 94 Room Air 09/21/24 11:17 65 17 97 Room Air 09/21/24 07:57 36.6 C 66 20 114/76 Room Air 09/21/24 07:44 Room Air 09/21/24 07:21 64 17 98 Room Air 09/21/24 07:14 68 FiO2 09/21/24 14:27 09/21/24 11:46 09/21/24 11:17 21 09/21/24 07:57 09/21/24 07:44 09/21/24 07:21 21 09/21/24 07:14 Laboratory Results Short CBC 09/21/24 Range/Units 07:03 WBC 10.43 (4.8-10.8) K/ul Hgb 11.6 L (12.0-16.0) g/dl Hct 35.7 L (37.0-47.0) % Plt Count 264 (130-400) K/uL BMP 09/21/24 07:03 Sodium 138 Potassium 4.1 Chloride 105 Carbon Dioxide 29 BUN 17 Creatinine 1.34 H Glucose 95 Calcium 8.6
[2024-09-21 21:37] LABS: BUN Creatinine Ratio 13.3 (10-20); Calcium 8.6 mg/dl (8.6-10.3); Creatinine Clr Calc Pharmacy 35.9 ml/min; Potassium 4.4 mmol/L (3.5-5.1)
[2024-09-21] MEDS: SODIUM CHLORIDE 0.9% 1,000 ML IV ONE (22:33)
--- NOTE | 2024-09-22 05:47 | Communication Note ---
Date of Service: September 21, 2024 Late entry 09/21, 840P Notified by RN of SBP 90s, patient asymptomatic. Serum creatinine 1.5 from 1.34 in a.m. AP Hypotension Worsening kidney dysfunction Baseline UA Monitor creatinine response to IVF Hold Entresto for now.
[2024-09-22 06:32] LABS: Anion Gap 4 (3-11); BUN Creatinine Ratio 16.7 (10-20); Blood Urea Nitrogen 21 mg/dl (6-23); Calcium 8.4 mg/dl (8.6-10.3); Carbon Dioxide 27 mmol/L (21-32); Chloride 106 mmol/L (98-107); Creatinine Clr Calc Pharmacy 42.7 ml/min; Glucose 90 mg/dl (70-99(Fasting)); Sodium 137 mmol/L (136-145)
[2024-09-22] MEDS: MAGNESIUM OXIDE 400 MG TAB PO SCH (07:53)
[2024-09-22] MEDS: EMPAGLIFLOZIN 10 MG TAB PO SCH (07:56)
--- NOTE | 2024-09-22 11:11 | Cardiology Progress Note ---
Date of Service September 22, 2024 Assessment & Plan (1) COPD exacerbation: (2) Hypotension: (3) Chronic heart failure with preserved ejection fraction: Plan 09/20/24 Patient admitted with atypical chest pain, SOB/cough, suggesting COPD exacerbation. Chest pain was musculoskeletal in nature with coughing. Negative HS troponin x3 since admission EKG without acute ischemic changes. Echo with normal LVEF at 65% and no wall motion abnormalities. stable mild pericardial effusion (chronic) She has a long history of variable LVEF ranging 35-55% dating back to 2010 at time of her BMS to the RCA. EF with med management. Medications have been limited by hypotension and midodrine added last year. Multiple metoprolol doses have been held since admission due to borderline hypotension. Patient reports worsening palpitations when not receiving her metoprolol. Recommend resuming metoprolol 50 mg in AM and 25 mg in PM. Change holding parameters for systolic BP < 90. Increase midodrine to 5 mg in AM and at lunch. Will keep 2.5 mg in the evening for now. Continue Jardiance for now Spironolactone previously stopped due to UNRULY. Continue to hold. Reduce Entresto to 1/2 tab of the 25 mg dose. Pharmacy reports they are unable to cut medication - so will change to 1 tab at bedtime. IF BP improves with higher dose midodrine, will increase Entresto back to BID dosing. Currently appears euvolemic. Continue ASA. Patient intolerant to statins. She is to be taking PCSK9 inhib at home. 09/21/24: Patient doing well this morning. Improved respiratory status from admission. No chest pain. BP improved this morning. She was mildly hypotensive last night. Increase midodrine to 5 mg TID. She was previously on this dose as an outpatient last year per review of records. Mild renal insufficiency today with creatinine of 1.3. Monitor. Reduce Jardiance to 10 mg daily Continue Entresto 26/24 mg - 1 tablet in the PM Continue metoprolol succinate 50 mg in AM and 25 mg in PM (holding parameters changed yesterday to systolic BP < 90) Currently appears euvolemic. Spironolactone previously discontinue due to UNRULY/hyperkalemia. Do not resume. continue ASA. continue PCSK9 inhib at home on discharge. 09/22/24: Hypotension noted last night. Patient was asymptomatic. Creatinine increased to 1.5. Improved this morning to 1.2 (around baseline) Entresto was placed on hold last night. Resume tonight if BP is stable. Continue midodrine 5 mg TID Jardiance reduced - continue lower dose at 10 mg daily Continue metoprolol 50 mg in AM and 25 mg in PM Appears euvolemic Continue treatment for COPD exacerbation. No further cardiac testing warranted at this time. Will sign off. Please contact national accounts recruiter provider with additional questions or concerns. Case discussed with Dr. Kearns I spent a total of 30 minutes on the date of service in preparation, delivery, and documentation of the care provided to this patient, excluding any time spent in the performance of separately billed services. Angeline Madsen PA-C Department of Cardiology, [facility] This chart was completed in part utilizing Speech Voice Recognition Software. Grammatical errors, random word insertions, pronoun errors, and incomplete sentences are an occasional consequence of this system due to software limitations, ambient noise, and hardware issues. Any formal questions or concerns about the content, text, or information contained within the body of this dictation should be directly addressed to the provider for clarification. Admission and Anticipated Discharge Date Admission Date: September 19, 2024 Supervising Physician Co-Signing Physician Notes Attending attestation: Case reviewed with the advanced practitioner. I have personally performed a history and physical examination on the patient. I have reviewed the advanced practitioner's documentation on the date of service referenced in note, and I agree with, and take responsibility for the plan of care. OK to resume HS dose of Entresto. At discharge proceed with Entresto /, 1/2 tablet two times per day. [employer] MACHINE OPERATOR Jardiance dose reduced from 25 mg to 10 mg. I spent a total of 20 minutes coordinating, documenting, and providing care for this patient excluding time spent in the performance of separately billed services or time spent by another provider. Calvin Kearns, DO Subjective Patient resting in bed. Feels "tired" but voices no other complaints. No chest pain. Ongoing cough noted. No dizziness. Review of Systems Review of Systems: All systems reviewed & are unremarkable except as noted in HPI & below Physical Exam Constitutional: WD/WN, vitals as above average body habitus; no acute distress Neck: trachea midline, no thyromegaly normal visual inspection Respiratory: normal respiratory effort; no respiratory distress Auscultation: + diminished lung sounds and + rhonchi Cardiovascular: Rate/Rhythm: regular rate and regular rhythm Heart Sounds: normal S1 and normal S2; no murmur Vessels: no JVD Extremities: no edema Gastrointestinal (Abdomen): normal bowel sounds, soft, nontender, no hepatosplenomegaly Neurologic: PERRL, EOMI, accommodation nl, no face palsy, no dysarthria Psychiatric: A+Ox3, euthymic affect Results & Data Vital Signs (Past 12 Hours) Vital Signs Temp Pulse Pulse Pulse Resp BP BP 09/22/24 10:58 70 16 09/22/24 08:00 36.6 C 70 20 117/73 09/22/24 07:49 09/22/24 07:03 65 17 09/22/24 07:01 63 09/22/24 03:50 36.7 C 62 18 98/69 L 09/22/24 03:05 63 09/22/24 00:46 73 09/21/24 23:38 09/21/24 23:35 37.0 C 74 18 106/70 Pulse Ox Pulse Ox O2 Del Method O2 Del Method 09/22/24 10:58 95 Room Air 09/22/24 08:00 95 Room Air 09/22/24 07:49 Room Air 09/22/24 07:03 94 Room Air 09/22/24 07:01 09/22/24 03:50 95 Room Air 09/22/24 03:05 96 Room Air 09/22/24 00:46 09/21/24 23:38 Room Air 09/21/24 23:35 95 Room Air Laboratory Results Comprehensive Metabolic Panel 09/21/24 09/22/24 09/22/24 Range/Units 20:56 05:38 07:22 Sodium 135 L 137 (136-145) mmol/L Potassium 4.4 TNP 3.8 (3.5-5.1) mmol/L Chloride 103 106 (98-107) mmol/L Carbon Dioxide 25 27 (21-32) mmol/L BUN 20 21 (6-23) mg/dl Creatinine 1.50 H 1.26 H (0.6-1.2) mg/dl Glucose 98 90 (70-99(Fasting)) mg/dl Calcium 8.6 8.4 L (8.6-10.3) mg/dl Intake and Output 09/21/24 09/22/24 09/22/24 22:59 06:59 14:59 Intake Total 300 / 600 300 / 600 861.333 / 861.333 Balance 300 / 600 300 / 600 861.333 / 861.333 Intake: IV 861.333 / 861.333 Sodium Chloride 0.9% 1,000 ml @ 861.333 / 861.333 80 mls/hr IV .[id number] ONE Rx#: [id number] Oral 300 / 600 300 / 600 Other: Weight 59.1 kg Weight Measurement Method Built in [facility] Diagnostic Findings Telemetry reviewed: NSR in the 60-70's. Rare PVC's. EKG reviewed from 09/20/24: NSR, normal EKG Baseline artifact in several leads. No acute ischemic changes Medications Administered Current Inpatient Medications Acetaminophen (Acetaminophen 325 Mg Tab) 650 mg PO Q4H PRN PRN Reason: Pain or Fever Stop: 10/19/24 03:11 Albuterol (Albuterol Hfa 8 Gm Inhaler) 2 puffs INH Q4H PRN PRN Reason: cough,SOB or wheezing Stop: 10/19/24 03:11 Albuterol (Albut/Ipratrop 3mg/0.5mg Neb 3 Ml Vial) 3 ml NEB QIDR [facility]; Protocol Stop: 10/19/24 06:59 Last Admin: 09/22/24 10:57 Dose: 3 ml Albuterol (Albut/Ipratrop 3mg/0.5mg Neb 3 Ml Vial) 3 ml NEB Q4H PRN; Protocol PRN Reason: Shortness Of Breath Or Wheezing Stop: 10/19/24 03:11 Aspirin (Aspirin 81 Mg Ectab) 81 mg PO QAM [facility] Stop: 10/19/24 08:59 Last Admin: 09/22/24 07:52 Dose: 81 mg Doxycycline Hyclate (Doxycycline Hyclate 100 Mg Cap) 100 mg PO BID [facility] Stop: 09/26/24 08:59 Last Admin: 09/22/24 07:53 Dose: 100 mg Empagliflozin (Empagliflozin 10 Mg Tab) 10 mg PO QAM [facility] Stop: 10/22/24 08:59 Last Admin: 09/22/24 07:56 Dose: 10 mg Enoxaparin Sodium (Enoxaparin Inj 40 Mg/0.4 Ml Syr) 40 mg SQ Q24H [facility]ITH Stop: 10/19/24 08:59 Last Admin: 09/22/24 07:52 Dose: 40 mg Fluticasone/Vilanterol (Fluticasone/Vilanterol 200/25mcg 14 Puffs/Inhaler) 1 puffs INH DAILY JUDITH Stop: 10/19/24 08:59 Last Admin: 09/22/24 07:54 Dose: 1 puffs Folic Acid (Folic Acid 1 Mg Tab) 1 mg PO QAM [facility]ITH Stop: 10/19/24 08:59 Last Admin: 09/22/24 07:53 Dose: 1 mg Guaifenesin (Guaifenesin 600 Mg Tabcr) 600 mg PO Q12 JUDITH Stop: 10/19/24 08:59 Last Admin: 09/22/24 07:54 Dose: 600 mg Guaifenesin/Dextromethorphan (Guaifenesin/Dextrom Syrup 100mg/10mg 5ml Udc) 5 ml PO Q6H PRN PRN Reason: Cough Stop: 10/19/24 10:49 Last Admin: 09/21/24 17:42 Dose: 5 ml Methylprednisolone 40 mg/ (Syringe) 0.64 mls @ 1.5 mls/min IV TODAY@0900 [facility] Stop: 10/21/24 08:59 Last Admin: 09/22/24 07:52 Dose: 1.5 mls/min Levothyroxine Sodium (Levothyroxine Sodium 75 Mcg Tablet) 75 mcg PO DAILYBB JUDITH Stop: 10/19/24 06:29 Last Admin: 09/22/24 05:38 Dose: 75 mcg Lorazepam (Lorazepam 0.5 Mg Tab) 0.5 mg PO DAILY PRN PRN Reason: Anxiety Stop: 10/19/24 03:11 Last Admin: 09/21/24 21:44 Dose: 0.5 mg Magnesium Oxide (Magnesium Oxide 400 Mg Tab) 400 mg PO DAILY JUDITH Stop: 10/22/24 08:59 Last Admin: 09/22/24 07:53 Dose: 400 mg Methocarbamol (Methocarbamol 500 Mg Tablet) 500 mg PO TID PRN PRN Reason: muscle spasms Stop: 10/19/24 03:11 Last Admin: 09/19/24 20:10 Dose: 500 mg Metoprolol Succinate (Metoprolol Succ 50mg Ext Rel Tab) 50 mg PO QAM JUDITH Stop: 10/19/24 08:59 Last Admin: 09/22/24 07:53 Dose: 50 mg Metoprolol Succinate (Metoprolol Succ 25mg Ext Rel Tab) 25 mg PO HS [facility] Stop: 10/19/24 20:59 Last Admin: 09/21/24 21:44 Dose: 25 mg Midodrine (Midodrine Hcl 2.5 Mg Tab) 5 mg PO TID@0800,1200,1700 [facility] Stop: 10/21/24 11:59 Last Admin: 09/22/24 07:51 Dose: 5 mg Nitroglycerin (Nitroglycerin Sl 0.4 Mg/Tab Tab) 0.4 mg SL Q5M PRN PRN Reason: Chest Pain Stop: 10/19/24 03:11 Oxycodone HCl (Oxycodone Hcl Ir 5 Mg Tab (Immediate Release)) 5 mg PO Q4H PRN PRN Reason: pain Stop: 10/03/24 03:11 Last Admin: 09/22/24 08:04 Dose: 5 mg Pantoprazole Sodium (Pantoprazole 40 Mg Tab) 40 mg PO BID [facility] Stop: 10/19/24 08:59 Last Admin: 09/22/24 07:52 Dose: 40 mg Paroxetine HCl (Paroxetine Hcl 20 Mg Tab) 40 mg PO HS [facility] Stop: 10/19/24 20:59 Last Admin: 09/21/24 21:43 Dose: 40 mg Polyethylene Glycol (Polyethylene (Miralax) 17 Gm Pack) 17 gm PO DAILY PRN PRN Reason: Constipation Stop: 10/19/24 03:11 Pregabalin (Pregabalin 75 Mg Cap) 75 mg PO TID [facility] Stop: 10/19/24 08:59 Last Admin: 09/22/24 08:05 Dose: 75 mg Sacubitril/Valsartan (Valsartan/Sacubitril 26/24mg Tab) 1 tab PO HS [facility] Stop: 10/20/24 20:59 Last Admin: 09/20/24 21:55 Dose: 1 tab (2) Hypotension Hypotension type: unspecified hypotension type Qualified Code(s): I95.9 - Hypotension, unspecified
--- NOTE | 2024-09-22 15:25 | Hospitalist Progress Note ---
Date of Service September 22, 2024 Assessment & Plan (1) COPD exacerbation: Plan: Ms. rBown is a 59-year-old female with a past medical history of acute on chronic diastolic dysfunction with reduced EF35%, CKD stage III, chronic hypoxic respiratory failure COPDchronically on 2 L, anxiety, HLD, [place], CAD, hypothyroidism who was admitted due to generalized weakness. Patient recently admitted for acute on chronic hypoxia iso bronchitis and COPD exacerbation. Acute COPD exacerbation H/O Chronic respiratory failure with hypoxia and hypercarbia Last admission 2 step: Did not qualify for supplemental oxygen patient adamant against full steroid course last admission or other medication adjustments --CXR:No acute cardiopulmonary findings. Emphysema. No significant change in appearance of the chest. --Biofire:Negative --Continue IV Solu-Medrol, nebs Continue home inhalers Also on doxycycline Nocturnal oximetry study: Did not qualify for supplemental oxygen Patient reluctant to be transition to prednisone Likely to be discharged home tomorrow if stable Noncardiac Chest pain Troponin negative ECHO reviewed Chronic heart failure with recovered EF Ischemic Cardiomyopathy Prior STEMI s/p bare metal stent in RCA Chronic pericardial effusion ECHO 65-70%, anterior/right lateral pericardial effusion, no tamponade, appears chronic per ECHO report Recheck echo, last EF was 45%, 06/2023; stable pericardial effusion noted at t hat time -- Started on Entresto 26/24 mg 1 tablet every afternoon Continue metoprolol, aspirin Started on Jardiance--continue 10 mg daily Increase midodrine to 5 mg 3 times daily Spironolactone previously discontinued due to UNRULY/hyperkalemia Appreciate cardiology input Also on Repatha as outpatient Entresto on hold due to low BP, resume if blood pressure improves Right cerebellar cavernoma High risk of bleeding to avoid antiplatelet/anticoagulation as per cardiology notes As per cardiology notes it has been considered that patient is high risk of bleeding and possible if hemorrhage occurred and was deemed high risk to proceed with ischemic workup and potential need for dual antiplatelet therapy ,if cardiac cath was deemed necessary medical management recommended. Also plan for repeat MRI but seems not done yet GERD Continue PPI Hyperlipidemia Continue Repatha Hypothyroidism Continue levothyroxine Depression and anxiety On Paxil and Ativan as needed DVT Px: Lovenox SQ CODE STATUS Full code Disposition Expected discharge home in stable Admission and Anticipated Discharge Date Admission Date: September 19, 2024 Subjective Patient is seen and examined at bedside States feeling tired, no other complaints today Saturating well on room air No new complaints Denies any significant cough Dyspnea continues to improve Denies any chest pain, nausea, vomiting, abdominal pain Hypotensive overnight improved with IV fluids Review of Systems Review of Systems: All systems reviewed & are unremarkable except as noted in Subjective Physical Exam Physical Exam: Physical Exam: Vitals signs as noted above General Appearance:Moderately built and nourished, no apparent distress Head: normocephalic, Atraumatic Eyes: normal inspection, EOMI Neck: supple, Trachea midline Respiratory/Chest: Decreased breath sounds, CTA, No accessory muscle use Cardiovascular: S1, S2, No murmur Abdomen/GI:Soft, Non tender, Bowel sounds present Extremities/Musculoskeletal:normal inspection, no edema Neurologic/Psych:AAOX3, grossly no focal neurological deficits Skin: normal color, warm Results & Data Results & Data Vital Signs (Past 12 Hours) Vital Signs Temp Pulse Pulse Resp BP BP Pulse Ox 09/22/24 14:42 69 09/22/24 11:49 36.8 C 62 16 106/70 98 09/22/24 10:58 70 16 95 09/22/24 08:00 36.6 C 70 20 117/73 95 09/22/24 07:49 09/22/24 07:03 65 17 94 09/22/24 07:01 63 09/22/24 03:50 36.7 C 62 18 98/69 L 95 O2 Del Method 09/22/24 14:42 09/22/24 11:49 Room Air 09/22/24 10:58 Room Air 09/22/24 08:00 Room Air 09/22/24 07:49 Room Air 09/22/24 07:03 Room Air 09/22/24 07:01 09/22/24 03:50 Room Air Laboratory Results BMP 09/21/24 09/22/24 09/22/24 20:56 05:38 07:22 Sodium 135 L 137 Potassium 4.4 TNP 3.8 Chloride 103 106 Carbon Dioxide 25 27 BUN 20 21 Creatinine 1.50 H 1.26 H Glucose 98 90 Calcium 8.6 8.4 L
[2024-09-23 06:30] LABS: BUN Creatinine Ratio 16.5 (10-20); Calcium 8.7 mg/dl (8.6-10.3); Creatinine Clr Calc Pharmacy 42.4 ml/min; Potassium 3.9 mmol/L (3.5-5.1)
[2024-09-23 07:57] VITALS: RESP 18
[2024-09-23] MEDS: ONDANSETRON INJ 2 MG/ML 2 ML VIAL IV ONE (11:28)
[2024-09-23 11:49] VITALS: BP 100/63; PULSE 70; TEMP 98.1; O2SAT 96
--- NOTE | 2024-09-23 12:27 | Electrocardiogram Report ---
Test Reason : Blood Pressure : */* mmHG Vent. Rate : 85 BPM Atrial Rate : 85 BPM P-R Int : 134 ms QRS Dur : 94 ms QT Int : 336 ms P-R-T Axes : 87 79 75 degrees QTcB Int : 399 ms Normal sinus rhythm Normal ECG When compared with ECG of 19-Sep-2024 09:07, QT has shortened Confirmed by Jesus Garzon ([id number]) on 09/23/2024 12:26:57 PM Referred By: REFERRED SELF Confirmed By: Jesus Garzon
--- NOTE | 2024-09-23 12:39 | Hospitalist Progress Note ---
Date of Service September 23, 2024 Assessment & Plan (1) COPD exacerbation: Plan: Ms. Brown is a 59-year-old female with a past medical history of acute on chronic diastolic dysfunction with reduced EF35%, CKD stage III, chronic hypoxic respiratory failure COPDchronically on 2 L, anxiety, HLD, [place], CAD, hypothyroidism who was admitted due to generalized weakness. Patient recently admitted for acute on chronic hypoxia iso bronchitis and COPD exacerbation. Acute COPD exacerbation H/O Chronic respiratory failure with hypoxia and hypercarbia Last admission 2 step: Did not qualify for supplemental oxygen patient adamant against full steroid course last admission or other medication adjustments --CXR:No acute cardiopulmonary findings. Emphysema. No significant change in appearance of the chest. --Biofire:Negative --Continue IV Solu-Medrol, nebs Continue home inhalers Also on doxycycline Will discontinue IV Solu-Medrol today Nocturnal oximetry study: Did not qualify for supplemental oxygen Patient reluctant to be transition to prednisone as recommended Likely to be discharged home today Noncardiac Chest pain Troponin negative ECHO reviewed Chronic heart failure with recovered EF Ischemic Cardiomyopathy Prior STEMI s/p bare metal stent in RCA Chronic pericardial effusion ECHO 65-70%, anterior/right lateral pericardial effusion, no tamponade, appears chronic per ECHO report Recheck echo, last EF was 45%, 06/2023; stable pericardial effusion noted at that time -- Started on Entresto 26/24 mg 1 tablet every afternoon Continue metoprolol, aspirin Started on Jardiance--continue 10 mg daily Increase midodrine to 5 mg 3 times daily Spironolactone previously discontinued due to UNRULY/hyperkalemia Appreciate cardiology input Also on Repatha as outpatient Entresto on hold due to low BP, resume if blood pressure improves We will advised to follow-up with cardiology on discharge Right cerebellar cavernoma High risk of bleeding to avoid antiplatelet/anticoagulation as per cardiology notes As per cardiology notes it has been considered that patient is high risk of bleeding and possible if hemorrhage occurred and was deemed high risk to proceed with ischemic workup and potential need for dual antiplatelet therapy ,if cardiac cath was deemed necessary medical management recommended. Also plan for repeat MRI but seems not done yet GERD Continue PPI Hyperlipidemia Continue Repatha Hypothyroidism Continue levothyroxine Depression and anxiety On Paxil and Ativan as needed DVT Px: Lovenox SQ CODE STATUS Full code Disposition Home Admission and Anticipated Discharge Date Admission Date: September 19, 2024 Subjective Patient is seen and examined at bedside Feels transient nausea but otherwise feels well today Prefers to be discharged home today No other complaints today Cough, dyspnea improved Denies any chest pain, nausea, vomiting, abdominal pain Review of Systems Review of Systems: All systems reviewed & are unremarkable except as noted in Subjective Physical Exam Physical Exam: Physical Exam: Vitals signs as noted above General Appearance:Moderately built and nourished, no apparent distress Head: normocephalic, Atraumatic Eyes: normal inspection, EOMI Neck: supple, Trachea midline Respiratory/Chest: Decreased breath sounds, CTA, No accessory muscle use Cardiovascular: S1, S2, No murmur Abdomen/GI:Soft, Non tender, Bowel sounds present Extremities/Musculoskeletal:normal inspection, no edema Neurologic/Psych:AAOX3, grossly no focal neurological deficits Skin: normal color, warm Results & Data Results & Data Vital Signs (Past 12 Hours) Vital Signs Temp Pulse Pulse Resp BP Pulse Ox O2 Del Method 09/23/24 11:48 36.7 C 70 18 100/63 96 Room Air 09/23/24 09:39 58 L 09/23/24 09:37 Room Air 09/23/24 07:56 37.0 C 65 18 110/69 95 Room Air 09/23/24 04:00 36.7 C 69 20 116/77 96 Room Air Laboratory Results [facility] 09/23/24 05:25 Sodium 139 Potassium 3.9 Chloride 107 Carbon Dioxide 26 BUN 21 Creatinine 1.27 H Glucose 88 Calcium 8.7
--- NOTE | 2024-09-23 12:58 | Discharge Summary ---
Date of Service September 23, 2024 Admission HPI Per Admitting Provider 59-year-old female with past med history significant for chronic respiratory failure on 2 L oxygen, COPD, hypothyroidism, hyperlipidemia, lung nodules, history of CAD status post stent, chronic combined systolic and diastolic CHF, CKD stage III, cerebellar hemangioma, hypertension, moderate mitral regurgitation, irritable bowel syndrome with constipation, gastroparesis, sicca syndrome, diverticulosis, degenerative disease, reflux sympathetic dystrophy, depression, generalized anxiety disorder, PTSD, statin intolerance, presents with shortness of breath and cough and chest pain and nausea and diarrhea going for last 2 to 3 days. Patient says she has chronic cough but for last 2- 3 days it got worse. It is dry cough. Also feeling short of breath. She is chronically on 2 L oxygen. Denies any fevers. She was feeling fuzzy in the head. And had an episode of fall on her knees. No loss of consciousness. Did not hit her head. She also feeling nauseous and having poor appetite and not able to eat anything for last couple of days. Also having diarrhea daily 3-4 times for last couple of days. No blood in the stools or black stools. Thinks diarrhea is getting better. No abdominal pain. Also complaining of left-sided chest pain for last 2 -3 days on and off. Feeling very weak and not getting out from the bed. Currently having headache thinks from the medications. Vision is okay. No runny nose or sore throat. Micturating okay. No swelling in the legs. Currently hemodynamics are okay and seems resting comfortably. Recently she was in the hospital for acute on chronic respiratory failure secondary to bronchitis and COPD exacerbation and UNRULY. States she smokes cigarette 5-6 daily but last 2 to 3 days was not feeling well and did not smoke. Past medical history. As mentioned above. Past surgical history. . Colonoscopy. Conization of cervix. EGD. EGD with biopsy. Injection of lumbosacral spine. Diagnostic laparoscopy. Ligation of oviducts. Tonsillectomy. Excision of left wrist ganglion. Repair of incisional hernia. Thoracotomy with repair of lung in 1988 and 1990 secondary to pneumothorax. Social history. . Smokes half pack a day for 45 years. Alcohol rarely. No drug use. Social history. Paternal grandfather had cancer. Aunt had colon cancer. Father had heart attack. Stroke. Mother had rheumatoid arthritis. Sister had stroke. Sister has diabetes. Brother has hypertension, diabetes. Admission Exam Per Admitting Provider General- Not in distress Head- atraumatic Eyes- PERRL. ENT- oropharynx clear Neck- supple, no JVD. Lungs- clear to auscultation mild bilateral wheezing and rhonchi, no crackles Heart- regular rate and rhythm; no murmur, no gallop. Abdomen- normal bowel sounds, soft, nontender, no distension Extremities- no pretibial edema, no erythema seen. Neuro- alert, oriented PERRL, EOMI; no facial palsy; no dysarthria; moves extremities Principal Diagnosis Acute COPD exacerbation Atypical chest pain Ischemic cardiomyopathy Discharge Data Allergies Allergy/AdvReac Type Severity Reaction Status Date / Time tramadol Allergy Severe Seizure Verified 02/23/24 07:31 adhesive Allergy Mild BANDAIDS : Verified 02/23/24 07:31 SKIN ABRASION ketorolac [From Toradol] Allergy Mild HX KIDNEY Verified 02/23/24 07:31 FAILURE adhesive tape Allergy Unknown SKIN TEARS Verified 02/23/24 07:31 ibuprofen Allergy Unknown HX KIDNEY Verified 02/23/24 07:31 FAILURE NSAIDS (Non-Steroidal Allergy Unknown HX KIDNEY Verified 02/23/24 07:31 Anti-Inflamma FAILURE Sulfa (Sulfonamide Allergy Unknown HIVES Verified 02/23/24 07:31 Antibiotics) meperidine AdvReac Unknown NOT A Verified 02/23/24 07:31 VERIFIED RXN: MOOD SWINGS prednisone AdvReac Unknown Patient Verified 02/23/24 07:31 Reports Contraindication in Kidney Failure/SEE NOTES rosuvastatin [From Crestor] AdvReac Unknown Weakness, Verified 02/23/24 07:31 RHABDOMYLOSIS, ACUTE RENAL FAILURE Consultations 09/19/24 01:16 ED Decision to Admit Stat 09/20/24 11:34 Consult Cardiology Routine Procedures Performed Laboratory Results WBC 10.43 K/ul (4.8-10.8) 09/21/24 07:03 RBC 3.63 M/uL (4.20-5.40) L 09/21/24 07:03 Hgb 11.6 g/dl (12.0-16.0) L 09/21/24 07:03 Hct 35.7 % (37.0-47.0) L 09/21/24 07:03 MCV 98.3 fL (80.0-100.0) 09/21/24 07:03 MCH 32.0 pg (25.0-34.0) 09/21/24 07:03 MCHC 32.5 g/dL (32.0-36.0) 09/21/24 07:03 RDW Std Deviation 50.2 fL (36.4-46.3) H 09/21/24 07:03 RDW Coeff of Akiko 13.8 % (11.5-14.5) 09/21/24 07:03 Plt Count 264 K/uL (130-400) 09/21/24 07:03 MPV 9.9 fL (9.4-12.4) 09/21/24 07:03 Immature Gran % (Auto) 0.9 % 09/19/24 06:44 Neut % (Auto) 85.2 % 09/19/24 06:44 Lymph % (Auto) 11.4 % 09/19/24 06:44 Taylor % (Auto) 1.7 % 09/19/24 06:44 Eos % (Auto) 0.2 % 09/19/24 06:44 Baso % (Auto) 0.6 % 09/19/24 06:44 Neut # (Auto) 3.97 K/uL (1.40-6.50) 09/19/24 06:44 Lymph # (Auto) 0.53 K/uL (1.20-3.40) L 09/19/24 06:44 Taylor # (Auto) 0.08 K/uL (0.11-0.59) L 09/19/24 06:44 Eos # (Auto) 0.01 K/uL (0.00-0.50) 09/19/24 06:44 Baso # (Auto) 0.03 K/uL (0.00-0.20) 09/19/24 06:44 Immature Gran # (Auto) 0.04 K/uL (0.01-0.20) 09/19/24 06:44 Hypersegmented Neuts 1+ 09/19/24 06:44 D-Dimer 190 ug/L FEU (0-500) 09/19/24 06:44 Sodium 139 mmol/L (136-145) 09/23/24 05:25 Potassium 3.9 mmol/L (3.5-5.1) 09/23/24 05:25 Chloride 107 mmol/L (98-107) 09/23/24 05:25 Carbon Dioxide 26 mmol/L (21-32) 09/23/24 05:25 Anion Gap 6 (3-11) 09/23/24 05:25 BUN 21 mg/dl (6-23) 09/23/24 05:25 Creatinine 1.27 mg/dl (0.6-1.2) H 09/23/24 05:25 Est Cr Clr Drug Dosing 42.4 ml/min 09/23/24 05:25 eGFR 48.41 09/23/24 05:25 BUN/Creatinine Ratio 16.5 (10-20) 09/23/24 05:25 Glucose 88 mg/dl (70-99(Fasting)) 09/23/24 05:25 Estimat Average Glucose 114 mg/dl 09/20/24 05:25 Hemoglobin A1c 5.6 % (4.5-5.6) 09/20/24 05:25 Lactate 2.0 mmol/L (0.4-2.0) 09/21/24 20:56 Calcium 8.7 mg/dl (8.6-10.3) 09/23/24 05:25 Phosphorus 2.4 mg/dl (2.5-4.9) L 09/21/24 07:03 Magnesium 2.1 mg/dl (1.7-2.4) 09/21/24 07:03 Total Bilirubin 0.7 mg/dl (0.2-1.0) 09/18/24 23:58 Direct Bilirubin 0.1 mg/dl (0-0.2) 09/18/24 23:58 AST 17 U/L (13-39) 09/18/24 23:58 ALT 10 U/L (7-52) 09/18/24 23:58 Alkaline Phosphatase 60 U/L (34-104) 09/18/24 23:58 Troponin I High Sens 3.7 pg/ml (0-14) 09/19/24 19:01 B-Natriuretic Peptide 110 pg/ml (0-100) H 09/18/24 23:58 Total Protein 7.4 gm/dl (6.0-8.3) 09/18/24 23:58 Albumin 4.3 gm/dl (3.4-5.0) 09/18/24 23:58 Procalcitonin Cancelled 09/19/24 06:44 Urine Color Yellow 09/19/24 00:44 Urine Appearance Clear (Clear) 09/19/24 00:44 Urine pH 6.5 (4.5-7.5) 09/19/24 00:44 Ur Specific [place] 1.009 (1.000-1.030) 09/19/24 00:44 Urine Protein Negative (Negative) 09/19/24 00:44 Urine Glucose (UA) 3+ (Negative) H 09/19/24 00:44 Urine Ketones Negative (Negative) 09/19/24 00:44 Urine Blood Negative (Negative) 09/19/24 00:44 Urine Nitrite Negative (Negative) 09/19/24 00:44 Urine Bilirubin Negative (Negative) 09/19/24 00:44 Urine Urobilinogen Negative (Negative) 09/19/24 00:44 Ur Leukocyte Esterase Negative (Negative) 09/19/24 00:44 Adenovirus (PCR) Not Detected (NotDetected) 09/19/24 00:00 B. pertussis DNA (PCR) Not Detected (NotDetected) 09/19/24 00:00 B.parapertussis DNA PCR Not Detected (NotDetected) 09/19/24 00:00 C. pneumoniae DNA (PCR) Not Detected (NotDetected) 09/19/24 00:00 Coronavirus OC43 (PCR) Not Detected (NotDetected) 09/19/24 00:00 Coronavirus HKU1 (PCR) Not Detected (NotDetected) 09/19/24 00:00 Coronavirus 229E (PCR) Not Detected (NotDetected) 09/19/24 00:00 SARS-CoV-2 (PCR) Not Detected (NotDetected) 09/19/24 00:00 Coronavirus NL63 (PCR) Not Detected (NotDetected) 09/19/24 00:00 Human Metapneumovir PCR Not Detected (NotDetected) 09/19/24 00:00 Influenza Type A (PCR) Not Detected (NotDetected) 09/19/24 00:00 Influenza Type B (PCR) Not Detected (NotDetected) 09/19/24 00:00 M. pneumoniae (PCR) Not Detected (NotDetected) 09/19/24 00:00 Parainfluenza 1 (PCR) Not Detected (NotDetected) 09/19/24 00:00 Parainfluenza 2 (PCR) Not Detected (NotDetected) 09/19/24 00:00 Parainfluenza 3 (PCR) Not Detected (NotDetected) 09/19/24 00:00 Parainfluenza 4 (PCR) Not Detected (NotDetected) 09/19/24 00:00 RSV (PCR) Not Detected (NotDetected) 09/19/24 00:00 Entero/Rhino (PCR) Not Detected (NotDetected) 09/19/24 00:00 Ref Lab Test Result See Scanned Report 09/19/24 06:44 Impressions Chest X-Ray 09/18/24 23:46 XR chest 1V portable CLINICAL HISTORY: Sepsis. COMPARISON STUDY: Chest radiograph and chest CT August 31, 2024. FINDINGS: Lung volumes are normal. Emphysema is again noted. Lungs are clear. There is no pneumothorax or pleural effusion. Cardiac size is normal. Mediastinal contours are normal. There is no evidence for pulmonary edema. IMPRESSION: No acute cardiopulmonary findings. Emphysema. No significant change in appearance of the chest. ACT 112: Negative or not required by law. Electronically signed by: Shaheed Xiong M.D. 09/19/2024 7:01 AM Hospital Course (1) COPD exacerbation: Ms. Brown is a 59-year-old female with a past medical history of acute on chronic diastolic dysfunction with reduced EF35%, CKD stage III, chronic hypoxic respiratory failure COPDchronically on 2 L, anxiety, HLD, [place], CAD, hypothyroidism who was admitted due to generalized weakness. Patient recently admitted for acute on chronic hypoxia iso bronchitis and COPD exacerbation. Acute COPD exacerbation H/O Chronic respiratory failure with hypoxia and hypercarbia Last admission 2 step: Did not qualify for supplemental oxygen patient adamant against full steroid course last admission or other medication adjustments --CXR:No acute cardiopulmonary findings. Emphysema. No significant change in appearance of the chest. --Biofire:Negative --Continue IV Solu-Medrol, nebs Continue home inhalers Also on doxycycline Will discontinue IV Solu-Medrol today Nocturnal oximetry study: Did not qualify for supplemental oxygen Patient reluctant to be transition to prednisone as recommended Likely to be discharged home today Noncardiac Chest pain Troponin negative ECHO reviewed Chronic heart failure with recovered EF Ischemic Cardiomyopathy Prior STEMI s/p bare metal stent in RCA Chronic pericardial effusion ECHO 65-70%, anterior/right lateral pericardial effusion, no tamponade, appears chronic per ECHO report Recheck echo, last EF was 45%, 06/2023; stable pericardial effusion noted at that time -- Started on Entresto 26/24 mg 1 tablet every afternoon Continue metoprolol, aspirin Started on Jardiance--continue 10 mg daily Increase midodrine to 5 mg 3 times daily Spironolactone previously discontinued due to UNRULY/hyperkalemia Appreciate cardiology input Also on Repatha as outpatient Entresto on hold due to low BP, resume if blood pressure improves We will advised to follow-up with cardiology on discharge Right cerebellar cavernoma High risk of bleeding to avoid antiplatelet/anticoagulation as per cardiology notes As per cardiology notes it has been considered that patient is high risk of bleeding and possible if hemorrhage occurred and was deemed high risk to proceed with ischemic workup and potential need for dual antiplatelet therapy ,if cardiac cath was deemed necessary medical management recommended. Also plan for repeat MRI but seems not done yet GERD Continue PPI Hyperlipidemia Continue Repatha Hypothyroidism Continue levothyroxine Depression and anxiety On Paxil and Ativan as needed DVT Px: Lovenox SQ CODE STATUS Full code Disposition Home Total Time Total Time Spent Total Time Spent (In Minutes): 42 minutes Discharge Plan Discharge Items Patient Disposition: Home - Self-Care Reason For Visit: COPD EXACERBATION, CHEST PAIN Discharge Diagnosis: Acute COPD exacerbation Atypical chest pain Ischemic cardiomyopathy Condition on Discharge: Good Activity: Per Instructions section Exercise/Sports: Wait until after follow-up appointment Non-emergency contact: Primary Care Provider and [facility] Call non-emergency contact if: you have any medication questions, your symptoms worsen, your pain is concerning for you and you have a fever Follow-up/Referrals: Ludy Jacobs CRNP [Primary Care Provider] - (Date & Time 09/29/2024 3:00 PM Provider Ludy Jacobs CRNP Department [facility] ) Diet: Heart Healthy Add Attending Provider Instructions: Follow-up with your primary care physician Ludy LY on 09/29/2024 3:00 PM as scheduled Follow-up with your electrical construction project manager Dr. Kearns as recommended -- Monitor your blood pressure regularly at home. Discuss with your physician for further adjustment of medications as needed. -- Your blood cultures are pending at the time of discharge. Follow-up with your physician for results. -- Complete the doxycycline course for 2 more days as prescribed. --Your midodrine dose is increased to 5 mg three times a day to help with low blood pressure --Your Jardiance is decreased to 10 mg daily --Hold taking Entresto for now until your blood pressure improves. Discussed with your physician for further recommendations Seek immediate medical attention if your symptoms reoccur or worsen Please take all medications as instructed on discharge list below. Please call if you have any questions or problems. You can reach a [facility] hospitalist on duty at [facility] 24 hours a day by calling [phone] Pending Studies at Discharge: Yes Studies:: Blood cultures Stand-Alone Forms: My [facility], Smoking Cessation Medications and DC Order Prescriptions: New doxycycline hyclate 100 mg Capsule 100 mg PO BID Qty: 5 0RF midodrine 5 mg tablet 5 mg PO TID@0800,1200,1700 Qty: 90 1RF Jardiance 10 mg Tablet 10 mg PO QAM Qty: 30 1RF Continued aspirin 81 mg Tablet,Delayed Release (Dr/Ec) 81 mg PO QAM levothyroxine [Synthroid] 75 mcg tablet 75 mcg PO QAM lorazepam 0.5 mg tablet 0.5 mg PO DAILY PRN (Reason: Anxiety) omeprazole 20 mg capsule,delayed release(DR/EC) 20 mg PO BID folic acid 1 mg Tablet 1 mg PO QAM metoprolol succinate 25 mg tablet extended release 24 hr 25 - 50 mg PO UD Rx Instructions: 50mg QAM and 25mg HS albuterol sulfate 90 mcg/actuation HFA aerosol inhaler 2 puff INHALATION Q4H PRN (Reason: cough,SOB or wheezing) pregabalin 75 mg capsule 75 mg PO TID Rx Instructions: morning,noon and bedtime Repatha Pushtronex 420 mg/3.5 mL wearable injector 420 mg SUBCUT Q30D Rx Instructions: hasn't started medication yet remove from refrigerator 45 min prior to injection methocarbamol 500 mg tablet 500 mg PO TID PRN (Reason: muscle spasms) ondansetron HCl 4 mg tablet 4 mg PO Q8 PRN (Reason: Nausea) acetaminophen 325 mg Tablet 325 mg PO Q6H PRN (Reason: Fever Or Pain) albuterol sulfate 2.5 mg /3 mL (0.083 %) solution for nebulization 2.5 mg continuous nebulization QID PRN (Reason: Wheezing) paroxetine HCl [Paxil] 40 mg Tablet 40 mg PO HS guaifenesin [Mucinex] 600 mg Tablet Extended Release 12hr 600 mg PO Q12 Qty: 30 0RF fluticasone propion-salmeterol [Wixela Inhub] 250-50 mcg/dose blister with device 1 inh inhalation BID Qty: 60 0RF oxycodone 5 mg tablet 5 mg PO Q4H PRN (Reason: pain) Qty: 15 0RF Held Entresto 24-26 mg Tablet 1 tab PO BID Hold Instructions: Held due to low blood pressure. Discussed with your primary care physician/electrical construction project manager for further recommendations Discontinued midodrine 2.5 mg Tablet 2.5 mg PO TID@0800,1200,1700 Qty: 90 0RF Jardiance 25 mg Tablet 25 mg PO QAM Discharge Orders: Discharge Order (Routine); Ordered 09/23/24 Ordered By: Mir Carreon Admission Data Admit Date/Time: 09/19/24 02:16 Attending Provider: Mir Carreon Admit Provider: Micky Owens Primary Care Provider: Ludy Jacobs Other Providers: Micky Owens; Calvin Kearns
== END 2024-09-23 16:49 | disposition home or self-care (01) | DRG 190 ==
LOC: ED 23:41 → SUATTDRO 09-19 02:16 → EDINP 09-19 02:16 → 2N 09-19 03:18

== ENCOUNTER 2024-10-12 21:38 | Inpatient (IN) ==
[2024-10-12] MEDS: MAGNESIUM SULFATE / D5W 1 GM/100 ML BAG IV SCH (22:21)
[2024-10-12] MEDS: ALBUT/IPRATROP 3MG/0.5MG NEB 3 ML VIAL NEB STA (22:22)
[2024-10-12] MEDS: methylPREDNISolone 125 MG/2 ML VIAL IV STA (22:22)
[2024-10-12 22:26] LABS: Base Excess VBG -0.2 mEq/L; HCO3 VBG 25 mmol/L; Oxygen Saturation VBG 91.3 %; PCO2 VBG 41 mmHg (38-50); PO2 VBG 61 mmHg; pH VBG 7.39 (7.36-7.41)
[2024-10-12 22:29] LABS: Basophils # (auto) 0.11 K/uL (0.00-0.20); Basophils % (auto) 1.1 %; Eosinophils # (auto) 0.36 K/uL (0.00-0.50); Eosinophils % (auto) 3.7 %; Hemoglobin 14.2 g/dl (12.0-16.0); Immature Granulocytes # (auto) 0.03 K/uL (0.01-0.20); Immature Granulocytes % (auto) 0.3 %; Lymphocytes # (auto) 4.04 K/uL (1.20-3.40); Lymphocytes % (auto) 41.1 %; Mean Corpuscular Hemoglobin 32.6 pg (25.0-34.0); Mean Corpuscular Hgb Conc 33.8 g/dL (32.0-36.0); Mean Corpuscular Volume 96.3 fL (80.0-100.0); Mean Platelet Volume 9.5 fL (9.4-12.4); Monocytes % (auto) 7.1 %; Neutrophils # (auto) 4.59 K/uL (1.40-6.50); Neutrophils % (auto) 46.7 %; Platelet Count 380 K/uL (130-400); RDW Coefficient of Variation 12.9 % (11.5-14.5); RDW Standard Deviation 46.5 fL (36.4-46.3); Red Blood Count 4.36 M/uL (4.20-5.40); White Blood Count 9.83 K/ul (4.8-10.8)
--- NOTE | 2024-10-12 22:32 | XRay Report ---
EXAM: Portable AP chest radiograph TECHNIQUE: AP portable radiograph of the chest was obtained. INDICATION: Shortness of breath Comparison: Chest radiograph September 19, 2024 FINDINGS: LINES and TUBES: None CARDIOVASCULAR: Cardiac silhouette is normal in size. LUNGS/PLEURA: Some increased patchy densities in the left lower lobe and lingular region. No significant pleural fluid. No discernible pneumothorax. Emphysema. Calcifications versus surgical materials again project over the left lung apex. OSSEOUS/OTHER: No displaced acute osseous process identified. IMPRESSION: Redemonstrated emphysema. Somewhat increased patchy densities suggested over the lingula and left lower lobe region could represent a mild airspace disease. Please correlate with physical examination. Electronically signed by Perfecto Hall 10-12-2024 10:32 PM
[2024-10-12 22:46] LABS: Alanine Aminotransferase 9 U/L (7-52); Albumin Globulin Ratio 1.3 (0.9-2); Alkaline Phosphatase 59 U/L (34-104); Anion Gap 10 (3-11); Aspartate Aminotransferase 16 U/L (13-39); BUN Creatinine Ratio 11.6 (10-20); Bilirubin,Total 0.6 mg/dl (0.2-1.0); Blood Urea Nitrogen 15 mg/dl (6-23); Calcium 9.4 mg/dl (8.6-10.3); Carbon Dioxide 25 mmol/L (21-32); Chloride 106 mmol/L (98-107); Globulin 3.1 gm/dl (2.5-4.0); Glucose 103 mg/dl (70-99(Fasting)); Magnesium 1.9 mg/dl (1.7-2.4); Potassium 3.5 mmol/L (3.5-5.1); Sodium 141 mmol/L (136-145); Total Protein 7.1 gm/dl (6.0-8.3)
[2024-10-12 22:52] LABS: Troponin I High Sensitivity 8.6 pg/ml (0-14)
--- NOTE | 2024-10-12 23:05 | Emergency Department Note ---
History of Present Illness General Chief complaint: Shortness of Breath/Dyspnea Stated complaint: SOB, FATIGUED, NOT EATING, CHESTPAIN, Time Seen by Provider: 10/12/24 21:49 History of Present Illness Maximum Pain Intensity: 5 This 59-year-old female with COPD chronically on 2 L presents ER complaint of COPD exacerbation and difficulty breathing. Patient states she does not feel comfortable going home. Patient complains of cough, congestion and shortness of breath. Patient denies abdominal pain, vomiting, diarrhea, fever, chills. Home Medications Medication Instructions Recorded Confirmed Type albuterol sulfate 90 mcg/actuation 2 puff inhalation Q4H PRN 03/10/22 10/12/24 History aerosol inhaler cough,SOB or wheezing aspirin 81 mg tablet,delayed 81 mg PO QAM 03/10/22 10/12/24 History release evolocumab 420 mg/3.5 mL 420 mg subcut Q30D 03/10/22 09/19/24 History subcutaneous wearable injector (Repatha Pushtronex) folic acid 1 mg tablet 1 mg PO QAM 03/10/22 09/19/24 History levothyroxine 75 mcg tablet 75 mcg PO QAM 03/10/22 09/19/24 History (Synthroid) lorazepam 0.5 mg tablet 0.5 mg PO DAILY PRN Anxiety 03/10/22 10/12/24 History metoprolol succinate 25 mg 37.5 mg PO QAM 03/10/22 09/19/24 History tablet,extended release 24 hr omeprazole 20 mg capsule,delayed 20 mg PO BID 03/10/22 09/19/24 History release pregabalin 75 mg capsule 75 mg PO TID 03/10/22 09/19/24 History acetaminophen 325 mg tablet 650 mg PO Q6H PRN Fever Or Pain 10/19/22 10/12/24 History methocarbamol 500 mg tablet 500 mg PO TID PRN muscle spasms 10/19/22 09/19/24 History ondansetron HCl 4 mg tablet 4 mg PO Q8 PRN Nausea 10/19/22 09/19/24 History albuterol sulfate 2.5 mg/3 mL 2.5 mg continuous nebulization QID 06/22/23 10/12/24 History (0.083 %) solution for nebulization PRN Wheezing paroxetine HCl 40 mg tablet (Paxil) 40 mg PO HS 02/29/24 10/28/24 History sacubitril 24 mg-valsartan 26 mg 1 tab PO BID 01/21/24 09/19/24 History tablet (Entresto) fluticasone 250 mcg-salmeterol 50 1 inh inhalation BID #60 ea 09/05/24 09/19/24 Rx mcg/dose blistr powdr for inhalation (Wixela Inhub) guaifenesin 600 mg tablet, 600 mg PO Q12 #30 tabs 09/05/24 09/19/24 Rx extended release 12 hr (Mucinex) oxycodone 5 mg tablet 5 mg PO Q4H PRN pain #15 tabs 09/05/24 09/19/24 Rx empagliflozin 10 mg tablet 10 mg PO QAM #30 tabs 09/23/24 10/12/24 Rx (Jardiance) midodrine 5 mg tablet 5 mg PO TID@0800,1200,1700 #90 tabs 09/23/24 10/12/24 Rx evolocumab 140 mg/mL subcutaneous 140 mg subcut UD 10/12/24 10/12/24 History pen injector (Repathann Uptonick) ipratropium 0.5 mg-albuterol 3 mg 3 ml inhalation QID PRN 10/12/24 10/12/24 History (2.5 mg base)/3 mL nebulization COUGH,SOB,WHEEZING soln Allergies Allergy/AdvReac Type Severity Reaction Status Date / Time tramadol Allergy Severe Seizure Verified 02/23/24 07:31 adhesive Allergy Mild BANDAIDS : Verified 02/23/24 07:31 SKIN ABRASION ketorolac [From Toradol] Allergy Mild HX KIDNEY Verified 02/23/24 07:31 FAILURE adhesive tape Allergy Unknown SKIN TEARS Verified 02/23/24 07:31 ibuprofen Allergy Unknown HX KIDNEY Verified 02/23/24 07:31 FAILURE NSAIDS (Non-Steroidal Allergy Unknown HX KIDNEY Verified 02/23/24 07:31 Anti-Inflamma FAILURE Sulfa (Sulfonamide Allergy Unknown HIVES Verified 02/23/24 07:31 Antibiotics) meperidine AdvReac Unknown NOT A Verified 02/23/24 07:31 VERIFIED RXN: MOOD SWINGS prednisone AdvReac Unknown Patient Verified 02/23/24 07:31 Reports Contraindication in Kidney Failure/SEE NOTES rosuvastatin [From Crestor] AdvReac Unknown Weakness, Verified 02/23/24 07:31 RHABDOMYLOSIS, ACUTE RENAL FAILURE Past Med/Surg History Problem List (Updated 10/12/24 @ 23:51 by Lyric Tamayo PA-C) Pneumonia (Acute) Chronic heart failure with preserved ejection fraction COPD exacerbation (Acute) Asthma exacerbation in COPD (Acute) Acute metabolic encephalopathy Left lower lobe pneumonia Encounter for pre-operative examination Acute on chronic heart failure with reduced ejection fraction and diastolic dysfunction CKD (chronic kidney disease), stage III (Acute) Acute on chronic respiratory failure with hypoxia DVT prophylaxis Pulmonary nodule Pericardial effusion Hypotension Bacteremia Prolonged QT interval Hypertension Diarrhea (Acute) Lab test negative for COVID-19 virus (Acute) Nausea & vomiting (Acute) Colitis (Acute) Acute dehydration (Acute) Electrolyte abnormality Hypomagnesemia (Acute) Nausea and vomiting (Acute) Hypokalemia (Acute) Generalized abdominal pain (Acute) Pericardial effusion Left ventricular systolic dysfunction UNRULY (acute kidney injury) Chronic pericarditis with effusion UTI (urinary tract infection) Acute respiratory failure with hypercapnia Acute exacerbation of chronic obstructive pulmonary disease (Acute) Acute respiratory distress (Acute) Influenza A (Acute) Hypotension Volume overload Acute respiratory failure with hypoxia Anxiety Depression Electrolyte abnormality Transaminitis DVT prophylaxis COPD (chronic obstructive pulmonary disease) (Acute) HLD (hyperlipidemia) Rhabdomyolysis Acute renal failure Pulmonary nodule Nausea (Acute) Hypokalemia (Acute) COPD exacerbation (Acute) Wrist pain, right (Acute) Seizure (Acute) Influenza A (Acute) Hypoxia (Acute) Hypokalemia (Acute) Hypokalemia (Acute) Hypokalemia (Acute) COPD exacerbation (Acute) COPD exacerbation (Acute) Bronchitis (Acute) Asthma exacerbation in COPD (Acute) Acute bronchitis (Acute) Acute bronchitis (Acute) Cellulitis (Acute) CAD (coronary artery disease) Hypothyroidism HFrEF (heart failure with reduced ejection fraction) hx Medical History Emphysema/COPD daily nebulizer, and prn neb and inh; f/u pulmonology at [facility] and [place] 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 History of colitis Decreased mobility lt arm>CRPS PTSD (post-traumatic stress disorder) Unique anesthetic considerations on preoperative anesthesia assessment high level anxiety when sedated, hx intubation w Flu A....PTSD, "gets scared when put to sleep" History of colon polyps Low blood pressure currently on midodrine; f/u [facility] cardio at and [place] History of influenza INFLUENZA A, February 2022 - [facility] hospitalization, "intubated while in the hospital" Pain syndrome, chronic chronic regional pain syndrome : left arm/received lidocaine injections in [place]/every three months/due may 2023. left limb restriction. History of renal failure "from her crestor medication" Oxygen dependent 2 L o2 continuous. Emphysema lung Statin intolerance Chronic pain see pain clinic for lt arm and neck, [facility] Anxiety Shortness of breath chronic Neurofibromatosis Hypokalemia HX / CAN NOT TOLERATE PO POTASSIUM PILLS DUE TO GASTROPARESIS Hx of bronchitis Myocardial infarction 2010 - CHEST PAIN -[facility] ER AND HAD HEART CATH WITH ONE STENT (BARE METAL) FOLLOW WITH [facility] Seizure 2013 ONLY HAD ONE -- ADMITTED TO [facility] --- METABOLIC RELATED ---- NO MEDICATION Pneumothorax AGE 24 - SURGERY TO REPAIR THE LEFT SIDE AND CHEMICAL TREATMENT ON THE RIGHT SIDE AT [place] Gastroparesis Cavernous hemangioma of brain stable Surgical History Hx of right cataract extraction History of heart artery stent 2010, [facility], x1 stent; f/u [facility] cardio at History of endoscopy Hx of colonoscopy Hx of vaginal surgery 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 Hx of section X2 Hx of cardiac cath 2010, [facility], x1 stent; f/u s cardio at History of hernia repair UMBILICAL Family History Father Lung disease Severe emphysema, pneumothorax Brother Family history of diabetes mellitus Brother Family history of diabetes mellitus Family/Other Family history of cancer Aunt Family history of colonic polyps Grandfather Family history of lymphoma Social History Smoking Status: Never smoker Tobacco Type: Cigarettes Age Started Using Tobacco: 11; Age Quit Using Tobacco: 53; packs per day: 1; Cigarettes Per Day: has 1 occasionally; Second Hand Exposure: Yes; Do You Dip or Chew Tobacco: No; Hx Alcohol Use: No Hx Substance Use: No Preferred Language: Albanian Communication Ability: Effective Relay Operator Required: No Beliefs That Will Affect Care: None marital status: Current Living Situation: Spouse How many Children do You have: 3 Feels Safe at Home: Yes Assistive Devices: Oxygen - Continuous, Walker and Wheelchair Review of Systems A total of 10 systems reviewed and were otherwise negative Physical Exam Vital Signs Vital Signs - 24 hr 10/12/24 21:40 10/12/24 22:20 10/12/24 22:20 Temperature 36.6 C Temperature Source Temporal Artery Scan Pulse Rate 81 Pulse Rate [Finger] Pulse Rhythm Respiratory Rate 16 Respiratory Depth Normal Normal Blood Pressure 110/71 Blood Pressure [Right Arm] Blood Pressure Mean 84 Blood Pressure Mean [Right Arm] Blood Pressure Position [Right Arm] Pulse Oximetry 94 Oxygen Delivery Method Nasal Cannula Nasal Cannula Nasal Cannula Oxygen Flow Rate 2 2 2 Fraction of Inspired Oxygen 0 Sepsis Recent Fever Within 48 Hours No Sepsis New/Unexplained Change in Mental Status No Sepsis Action Taken by Nursing No Action Required 10/12/24 22:20 10/12/24 22:20 10/12/24 22:21 Temperature Temperature Source Pulse Rate 76 Pulse Rate [Finger] 74 Pulse Rhythm Regular Respiratory Rate 20 Respiratory Depth Normal Blood Pressure Blood Pressure [Right Arm] 111/77 Blood Pressure Mean Blood Pressure Mean [Right Arm] 88 Blood Pressure Position [Right Arm] Lying Pulse Oximetry 98 99 Oxygen Delivery Method Nasal Cannula Nasal Cannula Oxygen Flow Rate 2 2 Fraction of Inspired Oxygen Sepsis Recent Fever Within 48 Hours Sepsis New/Unexplained Change in Mental Status Sepsis Action Taken by Nursing VITALS: Vitals are noted on the nurse's note and reviewed by myself. Vital signs stable. GENERAL: Pleasant female short of breath, in no acute distress, nondiaphoretic, well-developed well-nourished. SKIN: The skin was without rashes, erythema, edema, or bruising. There is no tenting of the skin. Capillary reflex less than 2 seconds. HEAD: Normocephalic atraumatic. EARS: External auditory canals clear EYES: Pupils equal round and reactive to light and accommodation. Conjunctivae without injection, sclerae without icterus. Extraocular movements intact. NOSE: Patent, no discharge. MOUTH: Mucous membranes moist. Pharynx without erythema or exudate. Uvula midline. Airway patent. Tongue does not deviate. NECK: Supple without nuchal rigidity. No lymphadenopathy. No thyromegaly. Cervical spine is nontender. No JVD. HEART: Regular rate and rhythm LUNGS: Diffuse inspiratory and end expiratory wheezes, No retractions or accessory muscle use. ABDOMEN: Positive bowel sounds x 4. Normal tympanic percussion. Soft, nontender, without masses or organomegaly. Crandall sign negative. No guarding or rebound tenderness. No CVA tenderness MUSCULOSKELETAL: No muscle atrophy, erythema, or edema noted. NEURO: Patient was alert and oriented to person place and time. Normal sensation to light and sharp touch. No focal neurological deficits. Course Administered Medications Discontinued Medications Albuterol (Albut/Ipratrop 3mg/0.5mg Neb 3 Ml Vial) 3 ml NEB NOW STA; Protocol Stop: 10/12/24 21:53 Last Admin: 10/12/24 22:22 Dose: 3 ml Documented By: THELMA Magnesium Sulfate/Dextrose (Magnesium Sulfate / D5w) 1 gm in 100 mls @ 600 mls/hr IV Q10M JUDITH Stop: 10/12/24 22:12 Last Infusion: 10/12/24 22:54 Dose: Infused Documented By: Admin: 10/12/24 22:40 Dose: 600 mls/hr Documented By: Infusion: 10/12/24 22:35 Dose: Infused Documented By: Admin: 10/12/24 22:21 Dose: 600 mls/hr Documented By: THELMA Methylprednisolone (Methylprednisolone 125 Mg/2 Ml Vial) 125 mg IV NOW STA Stop: 10/12/24 21:53 Last Admin: 10/12/24 22:22 Dose: 125 mg Documented By: THELMA Medical Decision Making Medical Records Attestation: I reviewed the patient's medical records. Home Medications Current Medication List: was personally reviewed by nh Laboratory Data Attestation: I reviewed the patient's lab results. 10/12/24 22:11 10/12/24 22:11 Lab Results 10/12/24 10/12/24 10/12/24 Range/Units 21:52 22:11 22:15 WBC 9.83 (4.8-10.8) K/ul RBC 4.36 (4.20-5.40) M/uL Hgb 14.2 (12.0-16.0) g/dl Hct 42.0 (37.0-47.0) % MCV 96.3 (80.0-100.0) fL MCH 32.6 (25.0-34.0) pg MCHC 33.8 (32.0-36.0) g/dL RDW Std Deviation 46.5 H (36.4-46.3) fL RDW Coeff of Akiko 12.9 (11.5-14.5) % Plt Count 380 (130-400) K/uL MPV 9.5 (9.4-12.4) fL Immature Gran % (Auto) 0.3 % Neut % (Auto) 46.7 % Lymph % (Auto) 41.1 % Story % (Auto) 7.1 % Eos % (Auto) 3.7 % Baso % (Auto) 1.1 % Neut # (Auto) 4.59 (1.40-6.50) K/uL Lymph # (Auto) 4.04 H (1.20-3.40) K/uL Story # (Auto) 0.70 H (0.11-0.59) K/uL Eos # (Auto) 0.36 (0.00-0.50) K/uL Baso # (Auto) 0.11 (0.00-0.20) K/uL Immature Gran # (Auto) 0.03 (0.01-0.20) K/uL VBG pH 7.39 (7.36-7.41) VBG pCO2 41 (38-50) mmHg VBG pO2 61 mmHg VBG HCO3 25 mmol/L VBG O2 Saturation 91.3 % VBG Base Excess -0.2 mEq/L Sodium 141 (136-145) mmol/L Potassium 3.5 (3.5-5.1) mmol/L Chloride 106 (98-107) mmol/L Carbon Dioxide 25 (21-32) mmol/L Anion Gap 10 (3-11) BUN 15 (6-23) mg/dl Creatinine 1.29 H (0.6-1.2) mg/dl Est Cr Clr Drug Dosing Not Reportable eGFR 47.51 BUN/Creatinine Ratio 11.6 (10-20) Glucose 103 H (70-99(Fasting)) mg/dl Calcium 9.4 (8.6-10.3) mg/dl Magnesium 1.9 (1.7-2.4) mg/dl Total Bilirubin 0.6 (0.2-1.0) mg/dl AST 16 (13-39) U/L ALT 9 (7-52) U/L Alkaline Phosphatase 59 (34-104) U/L Troponin I High Sens 8.6 (0-14) pg/ml Total Protein 7.1 (6.0-8.3) gm/dl Albumin 4.0 (3.4-5.0) gm/dl Globulin 3.1 (2.5-4.0) gm/dl Albumin/Globulin Ratio 1.3 (0.9-2) Procalcitonin 0.03 (0-0.5) ng/ml Adenovirus (PCR) Not Detected (NotDetected) B. pertussis DNA (PCR) Not Detected (NotDetected) B.parapertussis DNA PCR Not Detected (NotDetected) C. pneumoniae DNA (PCR) Not Detected (NotDetected) Coronavirus OC43 (PCR) Not Detected (NotDetected) Coronavirus HKU1 (PCR) Not Detected (NotDetected) Coronavirus 229E (PCR) Not Detected (NotDetected) SARS-CoV-2 (PCR) Not Detected (NotDetected) Coronavirus NL63 (PCR) Not Detected (NotDetected) Human Metapneumovir PCR Not Detected (NotDetected) Influenza Type A (PCR) Not Detected (NotDetected) Influenza Type B (PCR) Not Detected (NotDetected) M. pneumoniae (PCR) Not Detected (NotDetected) Parainfluenza 1 (PCR) Not Detected (NotDetected) Parainfluenza 2 (PCR) Not Detected (NotDetected) Parainfluenza 3 (PCR) Not Detected (NotDetected) Parainfluenza 4 (PCR) Not Detected (NotDetected) RSV (PCR) Not Detected (NotDetected) Entero/Rhino (PCR) Not Detected (NotDetected) Imaging Data Attestation: I personally reviewed and interpreted this imaging study as follows: Radiologist's Impression: Chest X-Ray 10/12/24 21:49 EXAM: Portable AP chest radiograph TECHNIQUE: AP portable radiograph of the chest was obtained. INDICATION: Shortness of breath Comparison: Chest radiograph September 19, 2024 FINDINGS: LINES and TUBES: None CARDIOVASCULAR: Cardiac silhouette is normal in size. LUNGS/PLEURA: Some increased patchy densities in the left lower lobe and lingular region. No significant pleural fluid. No discernible pneumothorax. Emphysema. Calcifications versus surgical materials again project over the left lung apex. OSSEOUS/OTHER: No displaced acute osseous process identified. IMPRESSION: Redemonstrated emphysema. Somewhat increased patchy densities suggested over the lingula and left lower lobe region could represent a mild airspace disease. Please correlate with physical examination. Electronically signed by Perfecto Hall 10-12-2024 10:32 PM MDM Narrative Prior records/ancillary studies reviewed. Triage Nursing notes reviewed. Additional history obtained from the family. The patient's history was concerning for respiratory difficulties. Differential diagnosis: Etiologies such as infections, reactive airway disease, pneumonia, pneumothorax, COPD, CHF, cardiac ischemia, pulmonary embolism, musculoskeletal, gastrointestinal, as well as others were entertained. Physical examination: As above. ER treatment provided: An order was placed for continuous cardiac monitoring. The monitor shows a rate of 60-100 with a sinus rhythm per my interpretation. Nebulizer, Solu-Medrol, magnesium was ordered Zosyn was ordered for possible pneumonia as patient was recently hospitalized On reassessment the patient felt better. Diagnostic interpretation by me: The electrocardiogram was ordered for SOB. ECG: Normal sinus, normal intervals, no acute ST-T wave changes. Impression normal sinus rhythm rate of 74 independently interpreted by myself The labs Independently Interpreted by myself revealed no worrisome leukocytosis, negative troponin BC pending Imaging studies: Chest x-ray was reviewed and read by radiology as above. Consultation: A consultation was placed with the hospitalist. The case was discussed and diagnostics were reviewed. The patient was evaluated in the ER for further treatment. This appears to be consistent with COPD exacerbation with possibly developing pneumonia. Patient was still quite short of breath. Medicine was consulted and the case discussed. She will be admitted to the medical service. By the evaluation outlined above emergent etiologies such as CHF, cardiac ischemia, pulmonary embolism, reactive airway disease, pneumothorax, musculoskeletal, serious bacterial infections, as well as others were deemed relatively unlikely. The pt informed about the findings as listed above. All questions were answered and pleased with the treatment. The chart was completed utilizing [employer] voice recognition software. Grammatical errors, random word insertions, pronoun errors, and incomplete sentences are an occassional consequence of this system due to software limitations, ambient noise, and hardware issues. Any formal questions or concerns about the content, text, or information contained within the body of this dictation should be directly addressed to the physician blood bank assistant for clarification. Impression & Plan COPD exacerbation, Pneumonia Discharge Plan Visit Data Chief Complaint: Shortness of Breath/Dyspnea Stated Complaint: SOB, FATIGUED, NOT EATING, CHESTPAIN, ED Provider: Allyn Larsen ED Midlevel Provider: Lyric Tamayo Discharge Problem: COPD exacerbation, Pneumonia Patient Disposition: Admitted As Inpatient Condition: Good Forms Stand Alone Forms: [facility] Prescriptions Prescriptions: No Action aspirin 81 mg Tablet,Delayed Release (Dr/Ec) 81 mg PO QAM levothyroxine [Synthroid] 75 mcg tablet 75 mcg PO QAM lorazepam 0.5 mg tablet 0.5 mg PO DAILY PRN (Reason: Anxiety) omeprazole 20 mg capsule,delayed release(DR/EC) 20 mg PO BID folic acid 1 mg Tablet 1 mg PO QAM metoprolol succinate 25 mg tablet extended release 24 hr 37.5 mg PO QAM Rx Instructions: 50mg QAM and 25mg HS albuterol sulfate 90 mcg/actuation HFA aerosol inhaler 2 puff INHALATION Q4H PRN (Reason: cough,SOB or wheezing) pregabalin 75 mg capsule 75 mg PO TID Rx Instructions: morning,noon and bedtime Repatha Pushtronex 420 mg/3.5 mL wearable injector 420 mg SUBCUT Q30D Rx Instructions: hasn't started medication yet remove from refrigerator 45 min prior to injection methocarbamol 500 mg tablet 500 mg PO TID PRN (Reason: muscle spasms) ondansetron HCl 4 mg tablet 4 mg PO Q8 PRN (Reason: Nausea) acetaminophen 325 mg Tablet 650 mg PO Q6H PRN (Reason: Fever Or Pain) albuterol sulfate 2.5 mg /3 mL (0.083 %) solution for nebulization 2.5 mg continuous nebulization QID PRN (Reason: Wheezing) paroxetine HCl [Paxil] 40 mg Tablet 40 mg PO HS Entresto 24-26 mg Tablet 1 tab PO BID Hold Instructions: Held due to low blood pressure. Discussed with your primary care physician/senior svp for further recommendations guaifenesin [Mucinex] 600 mg Tablet Extended Release 12hr 600 mg PO Q12 Qty: 30 0RF fluticasone propion-salmeterol [Wixela Inhub] 250-50 mcg/dose blister with device 1 inh inhalation BID Qty: 60 0RF oxycodone 5 mg tablet 5 mg PO Q4H PRN (Reason: pain) Qty: 15 0RF midodrine 5 mg tablet 5 mg PO TID@0800,1200,1700 Qty: 90 1RF Jardiance 10 mg Tablet 10 mg PO QAM Qty: 30 1RF ipratropium-albuterol 0.5 mg-3 mg(2.5 mg base)/3 mL solution for nebulization 3 ml INHALATION QID PRN (Reason: COUGH,SOB,WHEEZING) Rx Instructions: USE IN PLACE OF INHALER Repatha SureClick 140 mg/mL pen injector 140 mg SUBCUT UD Referrals Referrals: Ludy Jacobs CRNP [Primary Care Provider] -
[2024-10-12 23:25] LABS: Adenovirus PCR Not Detected (NotDetected); Bordetella parapertussis PCR Not Detected (NotDetected); Bordetella pertussis PCR Not Detected (NotDetected); Chlamydia pneumoniae PCR Not Detected (NotDetected); Coronavirus 229E PCR Not Detected (NotDetected); Coronavirus CoV-2 (COVID19)PCR Not Detected (NotDetected); Coronavirus HKU1 PCR Not Detected (NotDetected); Coronavirus NL63 PCR Not Detected (NotDetected); Coronavirus OC43PCR Not Detected (NotDetected); Human Metapneumovirus PCR Not Detected (NotDetected); Influenza A PCR Not Detected (NotDetected); Influenza B PCR Not Detected (NotDetected); Mycoplasma pneumoniae PCR Not Detected (NotDetected); Parainfluenza Virus 1 PCR Not Detected (NotDetected); Parainfluenza Virus 2 PCR Not Detected (NotDetected); Parainfluenza Virus 3 PCR Not Detected (NotDetected); Parainfluenza Virus 4 PCR Not Detected (NotDetected); Respiratory Syncytial VirusPCR Not Detected (NotDetected); Rhinovirus/Enterovirus PCR Not Detected (NotDetected)
[2024-10-13] MEDS: PIPERACILLIN/TAZOBACTAM 4.5 GM/100 ML BAG IV ONE (01:58)
[2024-10-13] MEDS: DEXTROSE IV ONE (02:01)
[2024-10-13] MEDS: PIPERACILLIN IV ONE (02:01)
[2024-10-13] MEDS: TAZOBACTAM IV ONE (02:01)
--- NOTE | 2024-10-13 03:56 | History & Physical Report ---
Date of Service October 13, 2024 Assessment & Plan (1) COPD exacerbation: Plan: 59-year-old female with past med history significant for chronic respiratory failure on 2 L oxygen, COPD, hypothyroidism, hyperlipidemia, lung nodules, history of CAD status post stent, chronic combined systolic and diastolic CHF, CKD stage III, cerebellar hemangioma, hypertension, moderate mitral regurgitation, irritable bowel syndrome with constipation, gastroparesis, sicca syndrome, diverticulosis, degenerative disease, reflux sympathetic dystrophy, depression, generalized anxiety disorder, PTSD, statin intolerance, presents with shortness of breath and cough going on for last 5 days. Patient states last 5 days she is feeling weak and not able to get up from the bed. She thinks she also missed her medications. Having dry cough. Denies any fevers. She also has chest pain which is more with coughing. Says she weaned off her oxygen in the recent past but since last 5 days she has put back on oxygen as she is feeling short of breath. Feeling nauseous. Not able to eat anything. Having diarrhea 4-5 times daily. Denies any blood in the stools. Not micturating much. Denies any abdominal pain. Denies any headache. Vision is okay. Has runny nose. Denies sore throat. Hemodynamics are okay. She was recently in the hospital for COPD exacerbation and also seen by cardiology for chest pain. During last admission Entresto was held because of hypotension supposed to follow-up with the PCP and cardiology. Patient says Entresto was restarted but was holding it and also metoprolol for last few days as her BP was dropping per patient. COPD exacerbation Possible pneumonia Will follow CT scan Empiric Rocephin and Doxy IV Solu-Medrol DuoNebs ATC and as needed Two step prior to discharge Close monitor Chest pain More with cough Will follow EKG and troponins and echo Diarrhea Recent antibiotics Will follow CT abdomen pelvis Will follow stool cultures and C. difficile studies History of hypotension On midodrine History of CAD status post stent Bare-metal stents x 1 RCA 2010 On beta-lynne and aspirin and Repatha History of right cerebellar cavernoma High risk of bleeding to avoid antiplatelet/anticoagulation as per cardiology notes As per cardiology notes it has been considered that patient is high risk of bleeding and possible if hemorrhage occurred and was deemed high risk to proceed with ischemic workup and potential need for dual antiplatelet therapy ,if cardiac cath was deemed necessary medical management recommended. Also plan for repeat MRI but seems not done yet Chronic systolic and diastolic CHF Moderate mitral regurgitation EF 35 to 39% echo done on 07/28/2023 ef 60-65% on echo 09/19/24 On metoprolol succinate, Jardiance and Entresto Monitor for volume overload Hypotension On midodrine GERD On omeprazole Hyperlipidemia On Repatha Hypothyroidism On Synthyroid Depression and anxiety On Paxil and Ativan as needed DVT prophylaxis Heparin subcu Disposition Med/telemetry Full code. History of Present Illness Chief Complaint: Shortness of breath Primary Care Provider: ALIYAH Goldman 59-year-old female with past med history significant for chronic respiratory failure on 2 L oxygen, COPD, hypothyroidism, hyperlipidemia, lung nodules, history of CAD status post stent, chronic combined systolic and diastolic CHF, CKD stage III, cerebellar hemangioma, hypertension, moderate mitral regurgitation, irritable bowel syndrome with constipation, gastroparesis, sicca syndrome, diverticulosis, degenerative disease, reflux sympathetic dystrophy, depression, generalized anxiety disorder, PTSD, statin intolerance, presents with shortness of breath and cough going on for last 5 days. Patient states last 5 days she is feeling weak and not able to get up from the bed. She thinks she also missed her medications. Having dry cough. Denies any fevers. She also has chest pain which is more with coughing. Says she weaned off her oxygen in the recent past but since last 5 days she has put back on oxygen as she is feeling short of breath. Feeling nauseous. Not able to eat anything. Having diarrhea 4-5 times daily. Denies any blood in the stools. Not micturating much. Denies any abdominal pain. Denies any headache. Vision is okay. Has runny nose. Denies sore throat. Hemodynamics are okay. She was recently in the hospital for COPD exacerbation and also seen by cardiology for chest pain. During last admission Entresto was held because of hypotension supposed to follow-up with the PCP and cardiology. Patient says Entresto was restarted but was holding it and also metoprolol for last few days as her BP was dropping per patient. Past medical history. As mentioned above. Past surgical history. . Colonoscopy. Conization of cervix. EGD. EGD with biopsy. Injection of lumbosacral spine. Diagnostic laparoscopy. Ligation of oviducts. Tonsillectomy. Excision of left wrist ganglion. Repair of incisional hernia. Thoracotomy with repair of lung in 1988 and 1990 secondary to pneumothorax. Social history. . Smokes half pack a day for 45 years. Alcohol rarely. No drug use. Social history. Paternal grandfather had cancer. Aunt had colon cancer. Father had heart attack. Stroke. Mother had rheumatoid arthritis. Sister had stroke. Sister has diabetes. Brother has hypertension, diabetes. Allergies Allergy/AdvReac Type Severity Reaction Status Date / Time tramadol Allergy Severe Seizure Verified 10/13/24 00:02 adhesive Allergy Mild BANDAIDS : Verified 10/13/24 00:02 SKIN ABRASION ketorolac [From Toradol] Allergy Mild HX KIDNEY Verified 10/13/24 00:02 FAILURE adhesive tape Allergy Unknown SKIN TEARS Verified 10/13/24 00:02 ibuprofen Allergy Unknown HX KIDNEY Verified 10/13/24 00:02 FAILURE NSAIDS (Non-Steroidal Allergy Unknown HX KIDNEY Verified 10/13/24 00:02 Anti-Inflamma FAILURE Sulfa (Sulfonamide Allergy Unknown HIVES Verified 10/13/24 00:02 Antibiotics) meperidine AdvReac Unknown NOT A Verified 10/13/24 00:02 VERIFIED RXN: MOOD SWINGS prednisone AdvReac Unknown Patient Verified 10/13/24 00:02 Reports Contraindication in Kidney Failure/SEE NOTES rosuvastatin [From Crestor] AdvReac Unknown Weakness, Verified 10/13/24 00:02 RHABDOMYLOSIS, ACUTE RENAL FAILURE Home Medications Medication Instructions Recorded Confirmed Type albuterol sulfate 90 mcg/actuation 2 puff inhalation Q4H PRN 03/10/22 10/12/24 History aerosol inhaler cough,SOB or wheezing aspirin 81 mg tablet,delayed 81 mg PO QAM 03/10/22 10/12/24 History release folic acid 1 mg tablet 1 mg PO QAM 03/10/22 10/12/24 History levothyroxine 75 mcg tablet 75 mcg PO DAILYBB 03/10/22 10/13/24 History (Synthroid) lorazepam 0.5 mg tablet 0.5 mg PO DAILY PRN Anxiety 03/10/22 10/12/24 History omeprazole 20 mg capsule,delayed 20 mg PO BID 03/10/22 10/12/24 History release pregabalin 75 mg capsule 75 mg PO TID 03/10/22 10/12/24 History acetaminophen 325 mg tablet 650 mg PO Q6H PRN Fever Or Pain 10/19/22 10/12/24 History methocarbamol 500 mg tablet 500 mg PO QID PRN muscle spasms 10/19/22 10/12/24 History ondansetron HCl 4 mg tablet 4 mg PO Q8 PRN Nausea 10/19/22 10/12/24 History albuterol sulfate 2.5 mg/3 mL 2.5 mg continuous nebulization QID 06/22/23 10/12/24 History (0.083 %) solution for nebulization PRN Wheezing paroxetine HCl 40 mg tablet (Paxil) 40 mg PO HS 01/21/24 10/12/24 History sacubitril 24 mg-valsartan 26 mg 1 tab PO BID 01/21/24 10/12/24 History tablet (Entresto) fluticasone 250 mcg-salmeterol 50 1 inh inhalation BID #60 ea 09/05/24 10/12/24 Rx mcg/dose blistr powdr for inhalation (Wixela Inhub) oxycodone 5 mg tablet 5 mg PO Q4H PRN pain #15 tabs 09/05/24 10/13/24 Rx empagliflozin 10 mg tablet 10 mg PO QAM #30 tabs 09/23/24 10/12/24 Rx (Jardiance) midodrine 5 mg tablet 5 mg PO TID@0800,1200,1700 #90 tabs 09/23/24 10/12/24 Rx evolocumab 140 mg/mL subcutaneous 140 mg subcut UD 10/12/24 10/12/24 History pen injector (Repatha SureClick) ipratropium 0.5 mg-albuterol 3 mg 3 ml inhalation QID PRN 10/12/24 10/12/24 History (2.5 mg base)/3 mL nebulization COUGH,SOB,WHEEZING soln metoprolol succinate 50 mg 50 mg PO UD 10/12/24 10/12/24 History tablet,extended release 24 hr Past Med/Surg History Problem List (Updated 10/12/24 @ 23:51 by Lyric Tamayo PA-C) Pneumonia (Acute) Chronic heart failure with preserved ejection fraction COPD exacerbation (Acute) Asthma exacerbation in COPD (Acute) Acute metabolic encephalopathy Left lower lobe pneumonia Encounter for pre-operative examination Acute on chronic heart failure with reduced ejection fraction and diastolic dysfunction CKD (chronic kidney disease), stage III (Acute) Acute on chronic respiratory failure with hypoxia DVT prophylaxis Pulmonary nodule Pericardial effusion Hypotension Bacteremia Prolonged QT interval Hypertension Diarrhea (Acute) Lab test negative for COVID-19 virus (Acute) Nausea & vomiting (Acute) Colitis (Acute) Acute dehydration (Acute) Electrolyte abnormality Hypomagnesemia (Acute) Nausea and vomiting (Acute) Hypokalemia (Acute) Generalized abdominal pain (Acute) Pericardial effusion Left ventricular systolic dysfunction UNRULY (acute kidney injury) Chronic pericarditis with effusion UTI (urinary tract infection) Acute respiratory failure with hypercapnia Acute exacerbation of chronic obstructive pulmonary disease (Acute) Acute respiratory distress (Acute) Influenza A (Acute) Hypotension Volume overload Acute respiratory failure with hypoxia Anxiety Depression Electrolyte abnormality Transaminitis DVT prophylaxis COPD (chronic obstructive pulmonary disease) (Acute) HLD (hyperlipidemia) Rhabdomyolysis Acute renal failure Pulmonary nodule Nausea (Acute) Hypokalemia (Acute) COPD exacerbation (Acute) Wrist pain, right (Acute) Seizure (Acute) Influenza A (Acute) Hypoxia (Acute) Hypokalemia (Acute) Hypokalemia (Acute) Hypokalemia (Acute) COPD exacerbation (Acute) COPD exacerbation (Acute) Bronchitis (Acute) Asthma exacerbation in COPD (Acute) Acute bronchitis (Acute) Acute bronchitis (Acute) Cellulitis (Acute) CAD (coronary artery disease) Hypothyroidism HFrEF (heart failure with reduced ejection fraction) hx Medical History Emphysema/COPD daily nebulizer, and prn neb and inh; f/u pulmonology at [facility] and [place] 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 History of colitis Decreased mobility lt arm>CRPS PTSD (post-traumatic stress disorder) Unique anesthetic considerations on preoperative anesthesia assessment high level anxiety when sedated, hx intubation w Flu A....PTSD, "gets scared when put to sleep" History of colon polyps Low blood pressure currently on midodrine; f/u [facility] cardio at and [place] History of influenza INFLUENZA A, February 2022 - [facility] hospitalization, "intubated while in the hospital" Pain syndrome, chronic chronic regional pain syndrome : left arm/received lidocaine injections in [place]/every three months/due may 2023. left limb restriction. History of renal failure "from her crestor medication" Oxygen dependent 2 L o2 continuous. Emphysema lung Statin intolerance Chronic pain see pain clinic for lt arm and neck, @[facility] Anxiety Shortness of breath chronic Neurofibromatosis Hypokalemia HX / CAN NOT TOLERATE PO POTASSIUM PILLS DUE TO GASTROPARESIS Hx of bronchitis Myocardial infarction 2010 - CHEST PAIN -[facility] ER AND HAD HEART CATH WITH ONE STENT (BARE METAL) FOLLOW WITH [facility] CARDIO Seizure 2013 ONLY HAD ONE -- ADMITTED TO [facility] --- METABOLIC RELATED ---- NO M EDICATION Pneumothorax AGE 24 - SURGERY TO REPAIR THE LEFT SIDE AND CHEMICAL TREATMENT ON THE RIGHT SIDE AT [place] Gastroparesis Cavernous hemangioma of brain stable Surgical History Hx of right cataract extraction History of heart artery stent 2010, [place], [facility], x1 stent; f/u s cardio at History of endoscopy Hx of colonoscopy Hx of vaginal surgery 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 Hx of section X2 Hx of cardiac cath 2010, [place], [facility], x1 stent; f/u s cardio at History of hernia repair UMBILICAL Family History Father Lung disease Severe emphysema, pneumothorax Brother Family history of diabetes mellitus Brother Family history of diabetes mellitus Family/Other Family history of cancer Aunt Family history of colonic polyps Grandfather Family history of lymphoma Social History Smoking Status: Current some day smoker Tobacco Type: Cigarettes Age Started Using Tobacco: 11; Age Quit Using Tobacco: 53; packs per day: 1; Cigarettes Per Day: has 1 occasionally; Second Hand Exposure: Yes; Do You Dip or Chew Tobacco: No; Hx Alcohol Use: No Hx Substance Use: No Preferred Language: Thai Communication Ability: Effective 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 Beliefs That Will Affect Care: None marital status: Current Living Situation: Spouse How many Children do You have: 3 Other Information That Helps Us Care for You: No Feels Safe at Home: No Is there a partner from a previous relationship who is making you feel unsafe now?: No Any Concerns about Your Family Situation: No Would You Like to Speak to Someone About Your Situation: No Safety Concerns: Feels Safe At This Time Assistive Devices: None, Denture - Upper, Denture - Lower and Oxygen - Continuous Review of Systems Review of Systems: All systems reviewed & are unremarkable except as noted in HPI & below Physical Exam Physical Exam: General- Not in distress Head- atraumatic Eyes- PERRL. ENT- oropharynx clear Neck- supple, no JVD. Lungs- clear to auscultation b/l, mild b/l rhonchi, no wheezing or crackles. Heart- regular rate and rhythm; no murmur, no gallop. Abdomen- normal bowel sounds, soft, nontender, no distension Extremities- no pretibial edema, no erythema seen Neuro- alert, oriented ; PERRL, no facial palsy; no dysarthria; moves extremities. Results & Data Results & Data Vital Signs (Past 12 Hours) Vital Signs Temp Pulse Pulse Resp BP BP Pulse Ox 10/13/24 03:00 72 20 108/77 98 10/13/24 02:23 76 10/13/24 02:05 67 19 97 10/13/24 02:01 116/61 10/13/24 02:01 116/61 10/13/24 02:01 116/61 10/13/24 01:59 73 18 97 10/13/24 01:41 71 17 95 10/13/24 01:14 69 22 98 10/12/24 23:30 76 16 101/74 97 10/12/24 23:00 65 20 114/69 99 10/12/24 22:30 70 16 125/74 10/12/24 22:21 76 10/12/24 22:20 99 10/12/24 22:20 74 20 111/77 98 10/12/24 22:20 10/12/24 22:20 10/12/24 21:40 36.6 C 81 16 110/71 94 O2 Del Method O2 Flow Rate FiO2 10/13/24 03:00 10/13/24 02:23 10/13/24 02:05 10/13/24 02:01 10/13/24 02:01 10/13/24 02:01 10/13/24 01:59 10/13/24 01:41 10/13/24 01:14 10/12/24 23:30 10/12/24 23:00 10/12/24 22:30 10/12/24 22:21 10/12/24 22:20 Nasal Cannula 2 10/12/24 22:20 Nasal Cannula 2 10/12/24 22:20 Nasal Cannula 2 0 10/12/24 22:20 Nasal Cannula 2 10/12/24 21:40 Nasal Cannula 2 Diagnostic Findings Laboratory Results WBC 9.83 K/ul (4.8-10.8) 10/12/24 22:11 RBC 4.36 M/uL (4.20-5.40) 10/12/24 22:11 Hgb 14.2 g/dl (12.0-16.0) 10/12/24 22:11 Hct 42.0 % (37.0-47.0) 10/12/24 22:11 MCV 96.3 fL (80.0-100.0) 10/12/24 22:11 MCH 32.6 pg (25.0-34.0) 10/12/24 22:11 MCHC 33.8 g/dL (32.0-36.0) 10/12/24 22:11 RDW Std Deviation 46.5 fL (36.4-46.3) H 10/12/24 22:11 RDW Coeff of Akiko 12.9 % (11.5-14.5) 10/12/24 22:11 Plt Count 380 K/uL (130-400) 10/12/24 22:11 MPV 9.5 fL (9.4-12.4) 10/12/24 22:11 Immature Gran % (Auto) 0.3 % 10/12/24 22:11 Neut % (Auto) 46.7 % 10/12/24 22:11 Lymph % (Auto) 41.1 % 10/12/24 22:11 [place] % (Auto) 7.1 % 10/12/24 22:11 Eos % (Auto) 3.7 % 10/12/24 22:11 Baso % (Auto) 1.1 % 10/12/24 22:11 Neut # (Auto) 4.59 K/uL (1.40-6.50) 10/12/24 22:11 Lymph # (Auto) 4.04 K/uL (1.20-3.40) H 10/12/24 22:11 [place] # (Auto) 0.70 K/uL (0.11-0.59) H 10/12/24 22:11 Eos # (Auto) 0.36 K/uL (0.00-0.50) 10/12/24 22:11 Baso # (Auto) 0.11 K/uL (0.00-0.20) 10/12/24 22:11 Immature Gran # (Auto) 0.03 K/uL (0.01-0.20) 10/12/24 22:11 VBG pH 7.39 (7.36-7.41) 10/12/24 22:15 VBG pCO2 41 mmHg (38-50) 10/12/24 22:15 VBG pO2 61 mmHg 10/12/24 22:15 VBG HCO3 25 mmol/L 10/12/24 22:15 VBG O2 Saturation 91.3 % 10/12/24 22:15 VBG Base Excess -0.2 mEq/L 10/12/24 22:15 Sodium 141 mmol/L (136-145) 10/12/24 22:11 Potassium 3.5 mmol/L (3.5-5.1) 10/12/24 22:11 Chloride 106 mmol/L (98-107) 10/12/24 22:11 Carbon Dioxide 25 mmol/L (21-32) 10/12/24 22:11 Anion Gap 10 (3-11) 10/12/24 22:11 BUN 15 mg/dl (6-23) 10/12/24 22:11 Creatinine 1.29 mg/dl (0.6-1.2) H 10/12/24 22:11 Est Cr Clr Drug Dosing Not Reportable 10/12/24 22:11 eGFR 47.51 10/12/24 22:11 BUN/Creatinine Ratio 11.6 (10-20) 10/12/24 22:11 Glucose 103 mg/dl (70-99(Fasting)) H 10/12/24 22:11 Calcium 9.4 mg/dl (8.6-10.3) 10/12/24 22:11 Magnesium 1.9 mg/dl (1.7-2.4) 10/12/24 22:11 Total Bilirubin 0.6 mg/dl (0.2-1.0) 10/12/24 22:11 AST 16 U/L (13-39) 10/12/24 22:11 ALT 9 U/L (7-52) 10/12/24 22:11 Alkaline Phosphatase 59 U/L (34-104) 10/12/24 22:11 Troponin I High Sens 8.6 pg/ml (0-14) 10/12/24 22:11 Total Protein 7.1 gm/dl (6.0-8.3) 10/12/24 22:11 Albumin 4.0 gm/dl (3.4-5.0) 10/12/24 22:11 Globulin 3.1 gm/dl (2.5-4.0) 10/12/24 22:11 Albumin/Globulin Ratio 1.3 (0.9-2) 10/12/24 22:11 Procalcitonin 0.03 ng/ml (0-0.5) 10/12/24 22:11 Adenovirus (PCR) Not Detected (NotDetected) 10/12/24 21:52 B. pertussis DNA (PCR) Not Detected (NotDetected) 10/12/24 21:52 B.parapertussis DNA PCR Not Detected (NotDetected) 10/12/24 21:52 C. pneumoniae DNA (PCR) Not Detected (NotDetected) 10/12/24 21:52 Coronavirus OC43 (PCR) Not Detected (NotDetected) 10/12/24 21:52 Coronavirus HKU1 (PCR) Not Detected (NotDetected) 10/12/24 21:52 Coronavirus 229E (PCR) Not Detected (NotDetected) 10/12/24 21:52 SARS-CoV-2 (PCR) Not Detected (NotDetected) 10/12/24 21:52 Coronavirus NL63 (PCR) Not Detected (NotDetected) 10/12/24 21:52 Human Metapneumovir PCR Not Detected (NotDetected) 10/12/24 21:52 Influenza Type A (PCR) Not Detected (NotDetected) 10/12/24 21:52 Influenza Type B (PCR) Not Detected (NotDetected) 10/12/24 21:52 M. pneumoniae (PCR) Not Detected (NotDetected) 10/12/24 21:52 Parainfluenza 1 (PCR) Not Detected (NotDetected) 10/12/24 21:52 Parainfluenza 2 (PCR) Not Detected (NotDetected) 10/12/24 21:52 Parainfluenza 3 (PCR) Not Detected (NotDetected) 10/12/24 21:52 Parainfluenza 4 (PCR) Not Detected (NotDetected) 10/12/24 21:52 RSV (PCR) Not Detected (NotDetected) 10/12/24 21:52 Entero/Rhino (PCR) Not Detected (NotDetected) 10/12/24 21:52 Impressions Chest X-Ray 10/12/24 21:49 EXAM: Portable AP chest radiograph TECHNIQUE: AP portable radiograph of the chest was obtained. INDICATION: Shortness of breath Comparison: Chest radiograph September 19, 2024 FINDINGS: LINES and TUBES: None CARDIOVASCULAR: Cardiac silhouette is normal in size. LUNGS/PLEURA: Some increased patchy densities in the left lower lobe and lingular region. No significant pleural fluid. No discernible pneumothorax. Emphysema. Calcifications versus surgical materials again project over the left lung apex. OSSEOUS/OTHER: No displaced acute osseous process identified. IMPRESSION: Redemonstrated emphysema. Somewhat increased patchy densities suggested over the lingula and left lower lobe region could represent a mild airspace disease. Please correlate with physical examination. Electronically signed by Perfecto Hall 10-12-2024 10:32 PM Code Status & VTE Plan VTE Prophylaxis Plan VTE Prophylaxis will be ordered: Yes
[2024-10-13] MEDS ORDERED: ALBUT/IPRATROP 3MG/0.5MG NEB 3 ML VIAL NEB PRN (04:48)
[2024-10-13] MEDS ORDERED: NITROGLYCERIN SL 0.4 MG/TAB TAB SL PRN (04:48)
[2024-10-13] MEDS ORDERED: ACETAMINOPHEN 325 MG TAB PO PRN (04:48)
[2024-10-13] MEDS ORDERED: ALBUTEROL HFA 8 GM INHALER INH PRN (04:48)
[2024-10-13] MEDS ORDERED: POLYETHYLENE (MIRALAX) 17 GM PACK PO PRN (04:48)
[2024-10-13] MEDS ORDERED: METHOCARBAMOL 500 MG TABLET PO PRN (04:48)
[2024-10-13 04:57] LABS: Appearance Urine Clear (Clear); Bacteria Urine Automated 2+ (None Seen); Bilirubin Urine Negative (Negative); Blood Urine Negative (Negative); Color Urine Yellow; Glucose Urine UA 3+ (Negative); Ketones Urine 2+ (Negative); Leukocyte Esterase Urine Negative (Negative); Nitrite Urine Negative (Negative); Protein Urine Trace (Negative); RBC Urine Automated 0-2 /hpf (0-2); Specific Gravity Urine 1.028 (1.000-1.030); Urobilinogen Urine Negative (Negative); WBC Urine Automated 0-5 /hpf (0-5); pH Urine 5.5 (4.5-7.5)
[2024-10-13] MEDS: cefTRIAXone SODIUM 2,000 MG/50 ML BAG IV SCH (06:25)
[2024-10-13] MEDS: HEPARIN SOD 5,000 UNIT/0.5 ML VIAL SQ SCH (06:25)
[2024-10-13] MEDS: methylPREDNISolone 40 MG in SYRINGE 0 ML IV SCH (06:25)
--- NOTE | 2024-10-13 06:54 | CT Scan Report ---
EXAM: CT chest diagnostic wo con CLINICAL HISTORY: TECHNIQUE: Contiguous axial images were obtained from the neck base through the upper abdomen without contrast. In addition, sagittal and coronal reconstructions were performed to potentially increase the sensitivity for the detection of disease. CT scan was performed according to ALARA (as low as reasonable achievable). COMPARISON: Prior scan dated August,. FINDINGS: Advanced destructive emphysema noted in bilateral lung parenchyma. A solid, elongated, spiculated nodule measuring 1.6 cm in length is noted at the anterior segment of left upper lobe. The central airways are patent. There are no pleural effusions. No pneumothorax is seen. Evaluation of the mediastinum and connie is limited due to the lack of intravenous contrast. No axillary or mediastinal adenopathy is identified. The heart, aorta, and pulmonary arteries are of normal size and configuration. No pericardial effusion is identified. Imaged portions of the upper abdomen are unremarkable. No aggressive appearing osseous lesions are identified. No interval change in findings compared to the prior scan. IMPRESSION: 1. Bilateral advanced destructive emphysema. 2. 1.6 cm spiculated nodule in left upper lobe anterior segment, unchanged from prior scan. Recommended continued CT surveillance at 12 months. Electronically signed by Gavino Espinosa 10-13-2024 06:53 AM
--- NOTE | 2024-10-13 06:57 | CT Scan Report ---
EXAM: CT abd pelvis wo con CLINICAL HISTORY: TECHNIQUE: Contiguous axial images were obtained from the level of the diaphragm to the pubic symphysis without intravenous or oral contrast. Coronal and sagittal reconstructions were likewise performed and indicated to increase the sensitivity for detecting clinically relevant pathology. CT scan was performed according to ALARA (as low as reasonable achievable). COMPARISON: Prior scan dated March,. FINDINGS: The visualized lung bases show emphysematous changes. Evaluation of the abdominal and pelvic visceral organs is limited without intravenous contrast. The unenhanced liver, spleen, pancreas, and adrenal glands are grossly unremarkable. The gallbladder is present. Left kidney is normal in size and attenuation without obvious calcification. There is no hydronephrosis or perinephric stranding. Right kidney is not visualized in the right renal fossa. A reniform structure measuring 6.5 cm in length is noted in the right iliac fossa, consistent with ectopic right kidney. Few small mural outpouchings noted from the sigmoid colon. No evidence of focal or diffuse bowel wall thickening or evidence of bowel obstruction is seen. Previously seen thickening of sigmoid and descending colon is not seen on present scan. The appendix is visualized in the right lower quadrant and appears within normal limits. Mild dextroconvex lumbar scoliosis noted. Degenerative changes seen in the visualized spine. The aorta is normal in caliber. The urinary bladder is normal in contour. No adenopathy or free pelvic fluid is seen. No other interval change in findings compared to prior scan. IMPRESSION: 1. Ectopic right kidney in right iliac fossa. 2. Colonic diverticulosis, without imaging evidence of diverticulitis. 3. Resolution of previously noted sigmoid and descending colon thickening. Electronically signed by Gavino Espinosa 10-13-2024 06:57 AM
[2024-10-13] MEDS: LEVOTHYROXINE SODIUM 75 MCG TABLET PO SCH (07:08)
[2024-10-13] MEDS: ALBUT/IPRATROP 3MG/0.5MG NEB 3 ML VIAL NEB SCH (07:12)
[2024-10-13] MEDS: PREGABALIN 75 MG CAP PO SCH (08:04)
[2024-10-13] MEDS: oxyCODONE HCL IR 5 MG TAB (IMMEDIATE RELEASE) PO PRN (08:04)
[2024-10-13] MEDS: ASPIRIN 81 MG ECTAB PO SCH (08:05)
[2024-10-13] MEDS: DOXYCYCLINE HYCLATE 100 MG CAP PO SCH (08:05)
[2024-10-13] MEDS: VALSARTAN/SACUBITRIL 26/24MG TAB PO SCH (08:05)
[2024-10-13] MEDS: FOLIC ACID 1 MG TAB PO SCH (08:05)
[2024-10-13] MEDS: PANTOprazole 40 MG TAB PO SCH (08:06)
[2024-10-13] MEDS: METOPROLOL SUCC 50MG EXT REL TAB PO SCH (08:07)
[2024-10-13] MEDS: EMPAGLIFLOZIN 10 MG TAB PO SCH (08:07)
[2024-10-13] MEDS: FLUTICASONE/VILANTEROL 200/25MCG 14 PUFFS/INHALER INH SCH (08:08)
[2024-10-13 08:27] LABS: Basophils # (auto) 0.01 K/uL (0.00-0.20); Basophils % (auto) 0.2 %; Hematocrit (blood only) 38.4 % (37.0-47.0); Hemoglobin 12.9 g/dl (12.0-16.0); Immature Granulocytes # (auto) 0.02 K/uL (0.01-0.20); Immature Granulocytes % (auto) 0.5 %; Lymphocytes # (auto) 0.97 K/uL (1.20-3.40); Lymphocytes % (auto) 23.2 %; Mean Corpuscular Hemoglobin 32.7 pg (25.0-34.0); Mean Corpuscular Hgb Conc 33.6 g/dL (32.0-36.0); Mean Corpuscular Volume 97.5 fL (80.0-100.0); Mean Platelet Volume 9.6 fL (9.4-12.4); Monocytes # (auto) 0.05 K/uL (0.11-0.59); Monocytes % (auto) 1.2 %; Neutrophils # (auto) 3.13 K/uL (1.40-6.50); Neutrophils % (auto) 74.9 %; Platelet Count 362 K/uL (130-400); RDW Coefficient of Variation 12.8 % (11.5-14.5); RDW Standard Deviation 45.9 fL (36.4-46.3); Red Blood Count 3.94 M/uL (4.20-5.40); White Blood Count 4.18 K/ul (4.8-10.8)
[2024-10-13 08:36] LABS: BUN Creatinine Ratio 11.9 (10-20); Calcium 8.9 mg/dl (8.6-10.3); Creatinine Clr Calc Pharmacy 38.3 ml/min; Magnesium 2.6 mg/dl (1.7-2.4); Potassium 3.9 mmol/L (3.5-5.1)
[2024-10-13 08:52] LABS: Troponin I High Sensitivity 5.4 pg/ml (0-14)
--- NOTE | 2024-10-13 08:57 | Hospitalist Progress Note ---
Date of Service October 13, 2024 Assessment & Plan (1) COPD exacerbation: Plan: 59-year-old female with past med history significant for chronic respiratory failure on 2 L oxygen, COPD, hypothyroidism, hyperlipidemia, lung nodules, history of CAD status post stent, chronic combined systolic and diastolic CHF, CKD stage III, cerebellar hemangioma, hypertension, moderate mitral regurgitation, irritable bowel syndrome with constipation, gastroparesis, sicca syndrome, diverticulosis, degenerative disease, reflux sympathetic dystrophy, depression, generalized anxiety disorder, PTSD, statin intolerance, presents with shortness of breath and cough going on for last 5 days. COPD exacerbation Patient presented with shortness of breath and cough for [address] chest on admission shows bilateral advanced emphysema. Also found to have 1.6 cm spiculated nodule in left upper lobe anterior segment, unchanged from prior scan. Started on budesonide and formoterol nebulization Continue IV Solu-Medrol Continue [id number] DuoNeb Started on azithromycin for 3 days I discussed patient to follow-up with her primary care doctor and obtain referral for pulmonology for long-term management of COPD and evaluation of the lung nodule. Patient verbalized understanding. Chest pain Likely pleuritic; increases with cough. High since troponin is negative Echo ordered and pending Diarrhea CT abdomen pelvis does not show acute finding C. difficile negative Monitor History of hypotension On midodrine, continue History of CAD status post stent Bare-metal stents x 1 RCA 2010 On beta-lynne and aspirin and Repatha Chronic systolic and diastolic CHF Moderate mitral regurgitation EF 35 to 39% echo done on 07/28/2023 ef 60-65% on echo 09/19/24 On metoprolol succinate, Jardiance and Entresto Monitor for volume overload Hypotension On midodrine, continue GERD On omeprazole, continue Hyperlipidemia On Repatha, on hold while inpatient Hypothyroidism On Synthyroid, continue Depression and anxiety On Paxil and Ativan as needed DVT prophylaxis Heparin subcu Disposition Med/telemetry Full code. Please note the above document was generated using voice recognition software. It may contain grammatical, syntax or spelling errors. Any formal questions or concerns about the content, text or information contained within the body of this dictation should be directly addressed to the provider for clarification Admission and Anticipated Discharge Date Admission Date: October 13, 2024 Subjective Patient seen and examined at bedside. Comfortable; not in distress. Reports that her shortness of breath has improved Discussed with patient of possible discharge in next few days on oral steroid. Patient reports that she does not tolerate oral steroids. Review of Systems Review of Systems: All systems reviewed & are unremarkable except as noted in Subjective Physical Exam Physical Exam: General- Not in distress Head- atraumatic Eyes- PERRL. ENT- oropharynx clear Neck- supple, no JVD. Lungs- b/l clear breath sounds Heart- regular rate and rhythm; no murmur, no gallop. Abdomen- normal bowel sounds, soft, nontender, no distension Extremities- no pretibial edema, no erythema seen Neuro- alert, oriented ; PERRL, no facial palsy; no dysarthria; moves extremities. Results & Data Results & Data Vital Signs (Past 12 Hours) Vital Signs Temp Pulse Pulse Resp BP BP Pulse Ox 10/13/24 08:13 65 10/13/24 07:12 36.3 C L 70 19 118/71 100 10/13/24 07:12 79 17 98 10/13/24 05:19 74 10/13/24 04:48 10/13/24 04:45 36.7 C 76 22 121/87 97 10/13/24 04:20 10/13/24 03:00 72 20 108/77 98 10/13/24 02:23 76 10/13/24 02:05 67 19 97 10/13/24 02:01 116/61 10/13/24 02:01 116/61 10/13/24 02:01 116/61 10/13/24 01:59 73 18 97 10/13/24 01:41 71 17 95 10/13/24 01:14 69 22 98 10/12/24 23:30 76 16 101/74 97 10/12/24 23:00 65 20 114/69 99 10/12/24 22:30 70 16 125/74 10/12/24 22:21 76 10/12/24 22:20 99 10/12/24 22:20 74 20 111/77 98 10/12/24 22:20 10/12/24 22:20 10/12/24 21:40 36.6 C 81 16 110/71 94 O2 Del Method O2 Flow Rate FiO2 10/13/24 08:13 10/13/24 07:12 Nasal Cannula 2 10/13/24 07:12 Nasal Cannula 2 10/13/24 05:19 10/13/24 04:48 Nasal Cannula 2 10/13/24 04:45 Nasal Cannula 2 10/13/24 04:20 Nasal Cannula 2 10/13/24 03:00 10/13/24 02:23 10/13/24 02:05 10/13/24 02:01 10/13/24 02:01 10/13/24 02:01 10/13/24 01:59 10/13/24 01:41 10/13/24 01:14 10/12/24 23:30 10/12/24 23:00 10/12/24 22:30 10/12/24 22:21 10/12/24 22:20 Nasal Cannula 2 10/12/24 22:20 Nasal Cannula 2 10/12/24 22:20 Nasal Cannula 2 0 10/12/24 22:20 Nasal Cannula 2 10/12/24 21:40 Nasal Cannula 2
[2024-10-13] MEDS ORDERED: methylPREDNISolone 125 MG/2 ML VIAL IV SCH (09:00)
[2024-10-13 09:01] LABS: Estimated Average Glucose 108 mg/dl; Hemoglobin A1C 5.4 % (4.5-5.6)
[2024-10-13] MEDS: MIDODRINE HCL 2.5 MG TAB PO SCH (09:14)
[2024-10-13] MEDS: AZITHROMYCIN 250 MG TAB PO SCH (09:44)
[2024-10-13] MEDS: FORMOTEROL 20 MCG/2 ML VIAL NEB SCH (10:43)
[2024-10-13] MEDS: BUDESONIDE 0.5 MG/2 ML VIAL (PULMICORT) NEB SCH (10:43)
[2024-10-13] MEDS: LORazepam 0.5 MG TAB PO PRN (12:53)
[2024-10-13] MEDS: PARoxetine HCL 20 MG TAB PO SCH (21:23)
[2024-10-13] MEDS: METOPROLOL SUCC 25MG EXT REL TAB PO SCH (21:26)
--- OUTSIDE RECORDS SUMMARY | 2024-10-13 23:33 | External Medical Summary | Summary of Care ---
Author Name Unknown Organization [facility] Address [address] [place] [address] Phone [phone] Care Team Providers Care Scaleman Name Role Phone Ludy Jacobs Zeina LY Primary Care Provider Encounter Details Date Type Department Care Team (Late st Contact Info) Description 10/07/2024 9:20 AM EST Scheduled Telephone Care Coordination and Integration [address] [place] [address] Lulu Umaña, Community [facility] Bulk Driver [address] [place] [address] Allergies Active Allergy Reactions Criticality Noted Date Comments Adhesive Tape 10/12/2019 Other reaction(s): BANDAIDS SKIN ABRASION Colchicine 05/08/2022 N/v/d Rosuvastatin 04/02/2021 Went into kidney failure Demerol 08/11/2012 Depression Ibuprofen 04/02/2021 Meperidine And Related 09/28/2002 depression Nsaids 04/02/2021 Sulfa Antibiotics Rash 07/09/2001 Ketorolac Tromethamine Medium 04/04/2021 documented as of this encounter (statuses as of 10/07/2024) Medications VALVED HOLDING CHAMBER DEVIIndications:CO PD with emphysema (HCC) to be used with inhalers as instructed 1 Device 2 10/12/20 12 Active Additional Information Patient not taking.Informant: Transferring Facility Documents, Reported on 02/02/2024 oxygen GAS 2 LPM via NC during hours of sleep 1 Each 03/16/20 18 Active Additional Information Patient taking differently: 2 L/min(Oxygen), 2 LPM via NC all day and during hours, Informant: Transferring Facility Documents, Reported on 12/24/2022 Nebulizers (NEBULIZER COMPRESSOR) MISC Inhale via nebulizer. Along with supply . Use as directed. Dx code- J44.9 and J43.9 1 Each 10/05/20 18 Active aspirin enteric coated 81 MG TBEC Take 1 Tablet by mouth every morning. Active Acetaminophen 325 MG Oral Tablet (Tylenol) Take 1 Tablet by mouth every 6 hours as needed. Active Nebulizer DeviceIndications: COPD, group C, 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 ([facility]ERLY [facility]),Chronic hypoxemic respiratory failure ([facility]) Use with nebulized medications 1 Each 07/24/20 22 Active Full Kit Nebulizer SetIndications:TOP INSTALLER D, group C, 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 ([facility]LY [facility]),Chronic hypoxemic respiratory failure ([facility]) Use with nebulizer 1 Each 07/24/20 22 Active Syringe 25G X 1-1/2" 3 ML Use for intramuscular B12 injection 1 Each 10/02/20 22 Active Albuterol Sulfate (2.5 MG/3ML) 0.083% Inhalation Nebulization Solution (Proventil)Indicat ions:COPD, group D, 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 (FORM[facility]LY [facility]) Inhale 1 Vial via nebulizer 4 times a day as needed for Wheezing. Use in place of rescue inhaler. 360 mL 2 12/24/19 23 Active Midodrine HCl 5 MG Oral Tablet (Proamatine)Indica tions:Chronic diastolic congestive heart failure (HCC) Take 1 Tablet by mouth in the morning and 1 Tablet at noon and 1 Tablet before bedtime. 270 Tablet 3 07/29/20 23 Active Empagliflozin 10 MG Oral Tablet (Jardiance)Indicat ions:Chronic combined systolic and diastolic congestive heart failure (HCC) Take 1 Tablet by mouth in the morning. 90 Tablet 3 12/15/19 24 Active Entresto 24-26 MG Oral Tablet (sacubitril-valsar barber 24-26 mg per tab)Indications:Ch ronic combined systolic and diastolic congestive heart failure (HCC),HFrEF (heart failure with reduced ejection fraction) ([facility]) Take 1 Tablet by mouth in the morning and 1 Tablet before bedtime. 180 Tablet 3 12/15/19 24 Active Additional Information Patient not taking.Reported on 09/27/2024 Ondansetron HCl 4 MG Oral Tablet (Zofran)Indication s:Nausea TAKE (1) TABLET BY MOUTH EVERY EIGHT HOURS NEEDED FOR NAUSEA. Strength: 4 mg 30 Tablet 01/14/20 24 Active Omeprazole 20 MG Oral Capsule Delayed Release (PriLOSEC)Indicati ons:Abdominal pain, epigastric TAKE 1 CAPSULE IN THE MORNING AND 1 CAPSULE BEFORE BEDTIME 60 Capsule 5 03/17/20 24 Active Metoprolol Succinate ER 50 MG Oral Tablet Extended Release 24 Hour (toPROL XL)Indications:[place] (myocardial infarction) TAKE 1 AND 1/2 TABLETS BY MOUTH EVERY MORNING 135 Tablet 04/07/20 24 Active Methocarbamol 500 MG Oral Tablet (Robamol)Indicatio ns:Chronic pain syndrome TAKE 1 TABLET IN THE MORNING, 1 AT NOON, 1 IN THE EVENING AND 1 BEFORE BEDTIME. 120 Tablet 3 04/19/20 24 Active Folic Acid 1 MG Oral TabletIndications: Folic acid deficiency Take 1 Tablet by mouth in the morning. In the morning.. 100 Tablet 3 04/28/20 24 Active Synthroid 75 MCG Oral TabletIndications: Acquired hypothyroidism TAKE 1 TABLET BY MOUTH DAILY (AT LEAST 30 MINUTES PRIOR TO BREAKFAST OR OTHER MEDS). 90 Tablet 05/03/20 24 Active Spironolactone 25 MG Oral Tablet (Aldactone)Indicat ions:Chronic combined systolic and diastolic congestive heart failure (HCC) Take 0.5 Tablets by mouth in the morning. 45 Tablet 05/04/20 24 Active Repatha SureClick 140 MG/ML Subcutaneous Solution Auto-injector (evolocumab) Inject 140 mg (1 pen) under the skin every 14 days. Remove from refrigerator 30 minutes prior to injection. 6 mL 05/04/20 24 Active PARoxetine HCl 40 MG Oral Tablet (pAXil) Take 1 Tablet by mouth in the morning. 30 Tablet 05/13/20 24 Active Pregabalin 75 MG Oral Capsule (Lyrica)Indication s:Complex regional pain syndrome type 1 of left upper extremity Take 1 Capsule by mouth in the morning and 1 Capsule at noon and 1 Capsule before bedtime. 90 Capsule 5 06/20/20 24 Active Albuterol Sulfate HFA 108 (90 Base) MCG/ACT Inhalation Aerosol SolutionIndication s:COPD, group C, 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 ([facility]) Inhale 2 Puffs by mouth every 4 hrs as needed for Cough, Shortness of Breath or Withdrawal symptoms. 54 g 1 07/11/20 24 Active LORazepam 0.5 MG Oral Tablet (Ativan) Take 1 Tablet by mouth daily as needed for Anxiety. Do not start before August 12, 2024. 30 Tablet 2 08/12/20 24 Active Ipratropium-Albute rol 0.5-2.5 (3) MG/3ML Inhalation Solution (Duoneb) USE 1 AMPULE IN NEBULIZER 4 TIMES DAILY NEEDED FOR COUGH, SHORTNESS OF BREATH OR WHEEZING -USE IN PLACE OF RESCUE INHALER 360 mL 5 10/06/20 24 Active Hospital, Clinic, or Other Facility Administered Medication Ordered Dose Route Frequency Start Date End Date Status Albuterol Sulfate (Proventil) (2.5 MG/3ML) 0.083% inhalation solution 2.5 mgIndications:COPD, group D, 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 ([facility]) 2.5 mg NEBULIZER ONCE PRN 04/28/2024 04/28/2025 Acti ve documented as of this encounter (statuses as of 10/07/2024) Active Problems Problem Noted Date Diagnosed Date [...] depressive disorder), recurrent episo de, mild 01/21/2023 Assessment & Plan (01/22/2023 12:46 PM EST): stable meds noted above 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 Statin intolerance 01/24/2022 Osteopenia 01/08/2022 LYNDON (generalized anxiety disorder) 10/07/2021 Assessment & Plan (01/22/2023 12:46 PM EST): Continue paxil Chronic combined systolic an d diastolic congestive heart failure 09/22/2019 Assessment & Plan (05/30/2022 4:20 PM EDT): Last EF 35-39% Follow up with cardiology today Lung nodules 08/19/2019 Assessment & Plan (05/30/2022 4:30 PM EDT): Pt made aware. Will d/w PCP for repeat CT Centrilobular emphysema 08/19/2019 Overview (09/06/2019): 09/06/19 In Check dial performed to assess inhaler technique:Name of inhaler Albuterol Pass: Yes at 55L/min and Trelegy Ellipta Pass: Yes at 45L/min. Encouraged to take nice slow deep breaths and encouraged to use aero chamber. Test performed by [employer] IMM[employer]RATION CASE WORKER CPFT Circadian rhythm sleep disorder 09/17/2018 Nocturnal hypoxemia due to emphysema 07/30/2018 Adjustment disorder with mixed anxiety and depre ssed mood 07/04/2018 TERMINATED MEDICATION USAGE AGREEMENT 06/03/2018 Dupuytren's contracture of left hand 02/01/2018 Mixed incontinence urge and stress (male)(female ) 03/20/2017 Vitamin D deficiency 03/03/2016 Overview (03/03/2016): March 2015 = 13. Took high dose replacement. Due to repeat. Coronary artery disease invo lving tejon coronary artery of tejon heart without angina pectoris 11/12/2015 Assessment & Plan (01/22/2023 12:36 PM EST): Stable no angina -continue ASA, metoprolol xl, repatha. Can't tolerate delgado d/t low bp Dyslipidemia, goal LDL below 70 11/12/2015 Sicca syndrome 12/29/2014 Acquired hypothyroidism 12/29/2014 Assessment & Plan (01/22/2023 12:45 PM EST): Continue synthroid [place] (myocardial infarction) 11/01/2013 Assessment & Plan (05/30/2022 4:26 PM EDT): Continue metoprolol Cerebellar hemangioma 12/15/2012 Overview (12/15/2012): MRI 2009 Generalized osteoarthritis 09/14/2012 S/P angioplasty with stent 02/19/2011 Gastroparesis 04/13/2009 History of peptic ulcer disease 03/05/2009 Overview (08/24/2017): ICD-10 update of inactive term Tobacco use disorder 12/02/2008 Assessment & Plan (01/22/2023 12:46 PM EST): No interest in cessation DDD (degenerative disc disease), cervical Endometriosis Irritable bowel syndrome with constipation documented as of this encounter (statuses as of 10/07/2024) Resolved Problems Problem Noted Date Diagnosed Date Resolved Date Chronic respiratory failure, unsp w hypoxia or hypercapnia 01/14/2024 01/27/2024 Major depressive disorder, r ecurrent episode, moderate 01/14/2024 01/27/2024 Vomiting and diarrhea 01/22/20232023 Assessment & Plan (01/22/2023 12:47 PM EST): had similar sx. Likely viral -zofran helping. Now keeping down fluids COPD, group C, 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 11/03/2022 05/07/2023 Overview: Per COPD GOLD Classification Assessment & Plan (01/22/2023 12:45 PM EST): COPD "RED FLAG" COPD symptoms: o Increased [...] with re duced ejection fraction) 10/30/2022 01/27/2024 Overview (01/27/2024): Duplicated on pl Assessment & Plan (01/22/2023 12:38 PM EST): Euvolemic today -continue aldactone (may hold today with low bp and vomiting earlier this week) Hypotension 05/30/2022 01/27/2024 Assessment & Plan (01/22/2023 12:40 PM EST): Low BP today. Asymptomatic. -continue midodrine -hold aldactone if still low -recheck bp tomorrow and call with results. Will call sooner if symptomatic Assessment & Plan (05/30/2022 4:59 PM EDT): BP stable today. Occasionally, gets dizzy when standing up too fast'. Continue midodrine TID Hypokalemia 05/30/2022 01/27/2024 Assessment & Plan (05/30/2022 12:40 PM EDT): Start KCL eliixr 20 Allison daily Check BMP in 1-2 weeks Acute systolic heart failure 04/11/2022 05/09/2022 Pericardial effusion 01/24/2022 024 Assessment & Plan (05/30/2022 4:21 PM EDT): Was on colchicine d/c'ed due to side effects. Follow up with cardiology today Stage 3a chronic kidney disease 01/14/2022 01/21/2023 Major depressive disorder with single episode 10/07/20 21 01/27/2024 Chronic kidney disease, stage 3b 09/30/2021 01/14/2022 Overview: Per CKD protocol Gastro-esophageal reflux dis ease without esophagitis 04/08/2021 10/08/2021 UNRULY (acute kidney injury) 03/28/2021 Thrush 09/13/2019 10/08/2021 COPD exacerbation 08/19/2019 11/25/2023 Overview (09/06/2019): 09/06/19 In Check dial performed to assess inhaler technique:Name of inhaler Albuterol Pass: Yes at 55L/min and Trelegy Ellipta Pass: Yes at 45L/min. Encouraged to take nice slow deep breaths and encouraged to use aero chamber. 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 Continue respimat, flovent Has neb/meds for prn use Enterovirus infection 08/19/20192019 COPD with exacerbation 06/16/201912/29 Overview (09/06/2019): 09/06/19 In Check dial performed to assess [...] 10/08/2021 Medical home patient encounter 10/15/2012 01/27/2024 Overview (09/15/2017): ICD-10 update of inactive term COPD, moderate 04/07/2012 10/05/2012 Overview (04/07/2012): PFT 03/2008 [facility] COPD, SEVERE 04/07/2012 05/04/2019 Overview: PER COPD PROTOCOL #24. PFT 03/2008 [facility] LAST PFT -06/07/12 Gastroesophageal reflux dise ase with esophagitis 04/30/2009 01/14/2022 Overview (05/15/2009): mild ADVANCE DIRECTIVE INFORMATION 12/02/2008 09/26/2024 Overview (12/02/2008): No, Advance Directive brochure offered , patient declined. COPD with emphysema 10/05/20 12 documented as of this encounter (statuses as of 10/07/2024) Immunizations Name Administration Dates Next Due COVID-19 mRNA, LNP-s, No Pre serve, 2-Dose Series ([employer]) 09/26/2022,11/18/2021,04/04/2021,02/28 COVID-19, MRNA-LNP, PF, 30 M CG/0.3 mL, 12 YRS AND ABOVE, IM ([facility]) 10/21/2023 Covid-19, Mrna, Lnp-s, Pf, B ivalent, [...] Types Packs/Day Years Used Date Smoking Tobacco: Former Cigarettes 0.5 45 Smokeless Tobacco: Never Alcohol [...] Date Recorded PHQ Adult Total Score 0 09/27/2024 Hunger Vital Sign Answer Date Recorded Within the past 12 months, y ou worried that your food would run out before you got the money to buy more. Never true 09/27/20 24 Within the past 12 months, t he food you bought just didn't last and you didn't have money to get more. Never true 09/27/2024 Childcare Answer Date Recorded Do you feel overwhelmed with taking care of a child, family member or friend? No 09/27/2024 Does your family need help f inding childcare? (Household - for ages 0-17 years) Not on file 09/27/2024 Clothing Answer Date Recorded Have you been unable to get clothing when it was really needed? No 09/27/2024 Is your family able to get c lothes or diapers when needed? (Household - for ages 0-17 years) Not on file 09/27/2024 Personal Safety Answer Date Recorded Do you feel unsafe or have concerns for your saf ety? No 09/27/2024 Do you have concerns for you r family's safety? (Household - for ages 0-17 years) Not on file 09/27/2024 Utilities Answer Date Recorded Do you have trouble paying y our heating, water, or electric bill? No 09/27/2024 Is your family able to pay t he heat, water, or electric bill? (Household - for ages 0-17 years) Not on file 09/27/2024 Does your family have access to good internet? (Household - for ages 0-17 years) Not on file 09/27/2024 Employment Status Answer Date Recorded Are you unemployed or without regular income? No 09/27/2024 Does the household have a re gular source of income? (Household - for ages 0-17 years) Not on file 09/27/2024 Social Connections Answer Date Recorded How often do you feel lonely or isolated from th ose around you? Never 09/27/2024 Financial Resource Strain Answer Date R ecorded Do you have any trouble payi ng for your medications, or do you think you might in the future? No 09/27/2024 Does your family have troubl e paying for medicine? (Household - for ages 0-17 years) Not on file 09/27/2024 Transportation Needs Answer Date Record ed Do you have trouble getting a ride to medical visits or work? (Adult - for ages 18 years and over) Not on file 09/27/2024 Does your family have a hard time getting a ride to doctors visits? (Household - for ages 0-17 years) Not on file 09/27/2024 Has lack of transportation k ept you from medical appointments, meetings, work, or from getting things needed for daily living? Check all that apply. No 09/27/2024 Do you (or your family) have trouble finding or paying for a ride (transportation)? (Household - for ages 0-17 years) Not on file 09/27/2024 Housing Stability Answer Date Recorded Do you currently live in a s helter or have no steady place to sleep at night? No 09/27/2024 Do you think you are at risk of becoming homeless? (Adult - for ages 18 years and over) Not on file 09/27/2024 Does your family worry about paying for your home or becoming homeless? (Household - for ages 0-17 years) Not on file 1 11/27/2023 Are you homeless or worried that you might be in the future? No 09/27/2024 Are you (or your family) hieu eless or worried that you might be in the future? (Household - for ages 0-17 years) Not on file Food Insecurity Answer Date Recorded Do you need food for this week? No 09/27/2024 Are you able to get enough f ood for your family? (Household - for ages 0-17 years) Not on file 09/27/2024 Does your family need food t his week? (Household - for ages 0-17 years) Not on file 09/27/2024 Do you always have enough fo od for your family? (Household - for ages 0-17 years) Not on file 09/27/2024 Comments No Sex and Gender Information Value Date Recorded Sex Assigned at Female 03/10/2019 2:38 PM EDT Legal Sex Female 7:03 AM EST Gender Identity Female 03/10/2019 2:38 PM EDT Sexual Orientation Straight 03/10/2019 2: 38 PM EDT Occupation Industry Job Start Date Job End Date unemployed Not on file Not on file Not on file documented as of this encounter Functional Status * Are you deaf or do you have serious difficulty hearing? Answer Date of Assessment Author No 03/28/2021 5:37 AM EDValentino Young RN * Are you blind or do you have serious difficulty seeing, even when wearing glasses? Answer Date of Assessment Author No 03/28/2021 5:37 AM Valentino Mcduffie RN * Do you have serious difficulty walking or climbing stairs? (5 years old or older) Answer Date of Assessment Author Yes 03/28/2021 10:00 AM Daija Benavides RN * Do you have difficulty dressing or bathing? (5 years old or older) Answer Date of Assessment Author Yes 03/28/2021 5:37 AM Valentino Mcduffie RN * Because of a physical, mental, or emotional condition, do you have difficulty doing errands alone such as visiting a doctors office or shopping? (15 years old or older) Answer Date of Assessment Author Yes 03/28/2021 5:37 AM Valentino Mcduffie RN documented as of this encounter Mental Status * Because of a physical, mental, or emotional condition, do you have serious difficulty concentrating, remembering, or making decisions? (5 years old or older) Answer Entry Date Author No 03/28/2021 5:37 AM Valentino Mcduffie RN documented in this encounter Progress Notes * Lulu Umaña, Community Health Bulk Driver - 10/07/2024 9:41 AM EST Telemedicine visit: No Community Health Bulk Driver (DEVIN) documentation: CHW outbound call to patient Per Tamika Lepe RNCM [facility] Left voicemail for patient to call left phone number Lulu Leeroy [facility] Community Health Worker Call or Text- [phone] documented in this encounter Plan of Treatment Upcoming Encounters Date Type Department Care Team (Late st Contact Info) Description 10/21/2024 3:00 PM EST Telemedicine Psychiatry [facility] [place] [address] [place] [id number] Codi Reardon CRNP [address] [place] [address] 11/08/2024 2:00 PM EST Telemedicine Cardiology [facility], [place] [address] [place] [address] [place], Pharmacist Cardiology [facility] [address], [place] [id number] 11/10/2024 2:20 PM EST Office Visit Family Practice [facility] [address] [place] [address] Ludy Jacobs CRNP [address] [place] [address] 02/13/2025 3:30 PM EDT Telemedicine Care at Home [address], [place] [phone] Lulu Yee PA-C [address], [place] [phone] Scheduled Procedures Name Priority Associated Diagnoses Date/Ti me COLONOSCOPY FLEXIBLE PROXIMAL DIAGNOSTIC Recall History of colon polyps Health Maintenance Due Date Last Done Comments Alpha-1 Antitrypsin 1982 HPV/Co-Test 1994 Cologuard 2009 Fecal Occult Blood Test 2009 Sigmoidoscopy 2009 Zoster Vaccines (2 of 2) 03/06/2021 01/09/2021 CKD PHOS USE SMARTSET 23366 03/29/2022 03/29/2021, 0 03/28/2021 Albumin/Creatinine Ratio 09/29/2023 09/29/2022, 05/0 03/2021 Mammogram 03/02/2024 03/02/2023, 02/21, 11/04/2016, Additional history exists COVID-19 Vaccine ( season) 2024 10/21/2023, 09/26/2022, 09/26/2022, Additional history exists Cervical Cancer Screening 12/04/2024 Pap Smear 12/04/2024 12/04/2021, 02/21, 03/03/2016, Additional history exists GFR 01/30/2025 08/02/2024, 06/0 04/2024, 04/05/2024, Additional history exists CKD HGB USE SMARTSET 72136 08/02/202508/02, 08/02/2024, 04/28/2024, Additional history exists O2 ASSESSMENT COMPLETED IN PAST YEAR FOR COPD 08/02/2025 08/02/2024 TSH 08/02/2025 08/02/2024, 06/0 04/2024, 03/06/2023, Additional history exists Depression Monitoring 09/27/2025 09/27/2024 Colonoscopy 04/30/2026 04/30/2023, 06/0 06/2023, 11/28/2019, Additional history exists Colorectal Cancer Screening 04/30/2026 Pneumococcal Vaccine: Pediatrics (0 to 5 Years) and At-Risk Patients (6 to 64 Years) (3 of 3 - PPSV23 or PCV20) 2029 12/14/2014, 12/14/2014, 10/11/2008 DTap/Tdap Vaccines (3 - Td or Tdap) 01/09/2031 01/09/2021, 01/04/2009 Hepatitis B Vaccine Completed 03/02/2023, 3 Influenza Vaccine (FLU shot) Completed 08/2024, 10/21/2023, [...] Agents on File Name Relationship [facility] Lopez Brown Spouse First Alternate Health Care Agent [place] Adult Child Health Care Agent Care Teams Scaleman Relationship Specialty Start Date End Date Ludy Jacobs CRNP [address] [place] [address] PCP - General Nurse Practitioner 04/20/24 documented as of this encounter
--- OUTSIDE RECORDS SUMMARY | 2024-10-13 23:33 | External Medical Summary | Summary of Care ---
Author Name Unknown Organization [facility] Address [address] [facility] [address] Phone [phone] Care Team Providers Care Beer Cooler Name Role Phone Ludy Jacobs Zeina LY Primary Care Provider Reason for Visit * Reason Onset Date Comments Precert Approved 08/03/2024 Repatha 140mg/m L sureclick pen (new) Encounter Details Date Type Department Care Team (Late st Contact Info) Description 08/03/2024 Telephone Cardiology, [place] [address] [facility] [place] [address] [facility] [place] [address] Precert Approved (Repatha 140mg/mL surecli... Allergies Active Allergy Reactions Criticality Noted Date Comments Adhesive Tape 10/12/2019 Other reaction(s): BANDAIDS SKIN ABRASION Colchicine 05/08/2022 N/v/d Rosuvastatin 04/02/2021 Went into kidney failure Demerol 08/11/2012 Depression Ibuprofen 04/02/2021 Meperidine And Related 09/28/2002 depression Nsaids 04/02/2021 Sulfa Antibiotics Rash 07/09/2001 Ketorolac Tromethamine Medium 04/04/2021 documented as of this encounter (statuses as of 09/21/2024) Medications Medication Sig Dispensed Refills Start Date End Date Status VALVED HOLDING CHAMBER DEVIIndications:CO PD with emphysema ([facility]) to be used with inhalers as instructed [...] COPD, group C, 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 ([facility]),Chronic hypoxemic respiratory failure ([facility]) Use with nebulized medications 1 Each 2 Active Full Kit Nebulizer SetIndications: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, 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, 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 ([facility]),Chronic hypoxemic respiratory failure ([facility]) Use with nebulizer 1 Each 2 Active Syringe 25G X 1-1/2" 3 ML Use for intramuscular B12 injection 1 Each 11 2 Active Albuterol Sulfate (2.5 MG/3ML) 0.083% Inhalation Nebulization Solution (Proventil)Indicat ions:COPD, group D, 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 ([facility]) Inhale 1 Vial via nebulizer 4 times [...] (HCC),HFrEF (heart failure with reduced ejection fraction) ([facility]) Take 1 Tablet by mouth in the [...] Tablet Extended Release 24 Hour (toPROL XL)Indications:Old [place] (myocardial infarction) TAKE 1 AND 1/2 TABLETS [...] s:COPD, group C, 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 ([facility]) Inhale 2 Puffs by mouth every 4 [...] mgIndications:COPD, group D, 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 ([facility]) 2.5 mg NEBULIZER ONCE PRN 04/28/2024 04/28/2025 Acti ve documented as of this encounter (statuses as of 09/21/2024) Active Problems Problem Noted Date Diagnosed Date [...] noted above Atherosclerotic heart diseas e of [place] coronary artery with other forms of angina [...] scheduled with [facility] pain clinic [place] 07/02. Statin intolerance 01/24/2022 Osteopenia 01/08/2022 LYNDON [...] use aero chamber. 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 Took high dose replacement. Due to repeat. Coronary artery disease invo lving [place] coronary artery of [place] heart without angina pectoris 11/12/2015 Last Assessment & Plan: Stable no angina -continue ASA, metoprolol xl, repatha. Can't tolerate delgado d/t low bp Dyslipidemia, goal LDL below 70 11/12/2015 Sicca syndrome 12/29/2014 Acquired hypothyroidism 12/29/2014 Last Assessment & Plan: Continue synthroid Old [place] (myocardial infarction) 11/01/2013 Last Assessment & Plan: [...] as of this encounter (statuses as of 09/21/2024) Resolved Problems Problem Noted Date Diagnosed Date [...] COPD, moderate 04/07/2012 10/05/2012 Overview: PFT 03/2008 [facility] COPD, SEVERE 04/07/2012 05/04/2019 Overview: PER COPD PROTOCOL #24. PFT 03/2008 [facility] LAST PFT -06/07/12 Gastroesophageal reflux dise ase with esophagitis 04/30/2009 01/14/2022 Overview: mild COPD with emphysema 10/05/20 12 documented as of this encounter (statuses as of 09/21/2024) Immunizations Name Administration Dates Next Due COVID-19 mRNA, LNP-s, No Pre serve, 2-Dose Series ([employer]) 09/26/2022,11/18/2021,04/04/2021,02/28 COVID-19, MRNA-LNP, 23-24, P F, 30 MCG/0.3 mL, 12 YRS AND ABOVE, IM ([employer]) 10/21/2023 Covid-19, Mrna, Lnp-s, Pf, B ivalent, 30 Mcg, IM, 12 yrs and above ([employer]) 09/26/2022 HEPATITIS B VACCINE, RECOMB, 20 MCG/ML, [...] Telephone Encounter - Daily Henderson RPh - 09/21/2024 4:51 PM EDT Asda rhys unsuccessful. Can we please check if pt would qualify for [facility]? Thank you! Daily Henderson PharmD Clinical Pharmacist - Shutdown Planner [facility] 09/21/2024 4:51 PM * Telephone Encounter - Cheri Yee RPh - 09/14/2024 11:32 AM EDT myG sent to patient to call assistance team. * Telephone Encounter - Daily Henderson RPh - 09/07/2024 9:59 AM EDT LVM reminding patient to reach out when able. Provided [facility] phone number. Daily Henderson PharmD Clinical Pharmacist - Shutdown Planner [facility] 09/07/2024 9:59 AM * Telephone Encounter - Daily Henderson RPh - 08/31/2024 2:48 PM EDT Called patient to follow up. States she is currently admitted to the hospital. Is willing to speak with [facility] regarding financial assistance and requests a call to discuss next week. Daily Henderson PharmD Clinical Pharmacist - Shutdown Planner [facility] 08/31/2024 2:49 PM [...] tomorrow. * Telephone Encounter - Cheri Yee [facility] - 08/03/2024 9:35 AM EDT PCSK-9 [...] mg/dL Route referral message to CARDIOLOGY PHARMACIST JUANITO [[id number]]. Please submit to BOTH primary insurance and secondary insurance (ex PACE/PACENET) if applicable. documented in this encounter Plan of Treatment Upcoming Encounters Date Type Department Care Team (Late st Contact Info) Description 10/21/2024 3:00 PM EST Telemedicine Psychiatry [facility] [address] [place] [id number] Codi Reardon CRNP [address] [place] [address] 11/02/2024 2:40 PM EST Office Visit Family Practice [facility] [address] [place] [address] Ludy Jacobs CRNP [address] [place] [address] 11/08/2024 2:00 PM EST Telemedicine Cardiology [facility], [place] [address] [place] [address] [facility] Pharmacist Cardiology [facility] [address] [place], [place] [id number] 02/13/2025 3:30 PM EDT Telemedicine Care at Home [address] [place], [place] [phone] Lulu Yee PA-C [address] [place], [place] [phone] Scheduled Procedures Name Priority Associated Diagnoses Date/Ti me COLONOSCOPY FLEXIBLE PROXIMAL DIAGNOSTIC Recall History of colon polyps Health Maintenance Due Date Last Done Comments Alpha-1 Antitrypsin 1982 HPV/Co-Test 1994 Cologuard 2009 Fecal Occult Blood Test 2009 Sigmoidoscopy 2009 DISCUSS TOBACCO CESSATION (REFER TO SMARTSET #3291) 04/04/2020 04/04/2019, 10/05/2018 Zoster Vaccines (2 of 2) 03/06/2021 01/09/2021 CKD PHOS USE SMARTSET 66473 03/29/2022 03/29/2021, 0 03/28/2021 Albumin/Creatinine Ratio 09/29/2023 09/29/2022, 050 03/2021 Mammogram 03/02/2024 03/02/2023, 02/21, 11/04/2016, Additional history exists Depression Monitoring 07/02/2024 07/02/2023 COVID-19 Vaccine ( season) 2024 10/21/2023, 09/26/2022, 09/26/2022, Additional history exists Cervical Cancer Screening 12/04/2024 Pap Smear 12/04/2024 12/04/2021, 02/21, 03/03/2016, Additional history exists GFR 01/30/2025 08/02/2024, 06/0 04/2024, 04/05/2024, Additional history exists CKD HGB USE SMARTSET 39682 08/02/202508/02, 08/02/2024, 04/28/2024, Additional history exists O2 [...] Agents on File Name Relationship Healthcare Agent [facility] p Communication Lopez Santiago Spouse First Alternate Health Care Agent [place] Adult Child Health Care Agent Care Teams Beer Cooler Relationship Specialty Start Date End Date Ludy Jacobs CRNP [address] [place] [address] PCP - General Nurse Practitioner 04/20/24 documented as of this encounter
--- OUTSIDE RECORDS SUMMARY | 2024-10-13 23:33 | External Medical Summary | Summary of Care ---
Author Name Unknown Organization [facility] Address [address] [facility] [address] Phone [phone] Care Team Providers Care Analysis Intern Name Role Phone Ludy Jacobs Zeina LY Primary Care Provider Reason for Visit * Reason Onset Date Comments Precert Approved 08/03/2024 Repatha 140mg/m L sureclick pen (new) Encounter Details Date Type Department Care Team (Late st Contact Info) Description 08/03/2024 Telephone Cardiology, [place] [address] [facility] [place] [address] [facility] [place] [address] Precert Approved (Repatha 140mg/mL surecli... Allergies Active Allergy Reactions Criticality Noted Date Comments Adhesive Tape 10/12/2019 Other reaction(s): BANDAIDS SKIN ABRASION Colchicine 05/08/2022 N/v/d Rosuvastatin 04/02/2021 Went into kidney failure Demerol 08/11/2012 Depression Ibuprofen 04/02/2021 Meperidine And Related 09/28/2002 depression Nsaids 04/02/2021 Sulfa Antibiotics Rash 07/09/2001 Ketorolac Tromethamine Medium 04/04/2021 documented as of this encounter (statuses as of 09/22/2024) Medications Medication Sig Dispensed Refills Start Date End Date Status VALVED HOLDING CHAMBER DEVIIndications:CO PD with emphysema ([facility]) to be used with inhalers as instructed [...] COPD, group C, 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 ([facility]),Chronic hypoxemic respiratory failure ([facility]) Use with nebulized medications 1 Each 2 Active Full Kit Nebulizer SetIndications: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, group C, 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 ([facility]),Chronic hypoxemic respiratory failure ([facility]) Use with nebulizer 1 Each 2 Active Syringe 25G X 1-1/2" 3 ML Use for intramuscular B12 injection 1 Each 11 2 Active Albuterol Sulfate (2.5 MG/3ML) 0.083% Inhalation Nebulization Solution (Proventil)Indicat ions:COPD, group D, 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 ([facility]) Inhale 1 Vial via nebulizer 4 times [...] (HCC),HFrEF (heart failure with reduced ejection fraction) ([facility]) Take 1 Tablet by mouth in the [...] Tablet Extended Release 24 Hour (toPROL XL)Indications:Old [place] (myocardial infarction) TAKE 1 AND 1/2 TABLETS [...] s:COPD, group C, 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 ([facility]) Inhale 2 Puffs by mouth every 4 [...] mgIndications:COPD, group D, 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 ([facility]) 2.5 mg NEBULIZER ONCE PRN 04/28/2024 04/28/2025 Acti ve documented as of this encounter (statuses as of 09/22/2024) Active Problems Problem Noted Date Diagnosed Date [...] noted above Atherosclerotic heart diseas e of [place] coronary artery with other forms of angina pectoris 11/12/2022 Chronic hypoxemic respiratory failure 10/30/2022 Last Assessment & Plan: O2 stable on 2 L PTSD (post-traumatic stress disorder) 10/30/2022 RSD (reflex sympathetic dystrophy) 10/30/2022 Neuropathic pain 07/02/2022 Last Assessment & Plan: Continue lyrica AC joint arthropathy 06/11/2022 Tendinosis of rotator cuff 06/11/2022 Chronic pain 03/04/2022 Last Assessment & Plan: Appointment scheduled with [facility] pain clinic [place] 07/02. Statin intolerance 01/24/2022 Osteopenia 01/08/2022 LYNDON [...] use aero chamber. 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 Took high dose replacement. Due to repeat. Coronary artery disease invo lving [place] coronary artery of [place] heart without angina pectoris 11/12/2015 Last Assessment & Plan: Stable no angina -continue ASA, metoprolol xl, repatha. Can't tolerate delgado d/t low bp Dyslipidemia, goal LDL below 70 11/12/2015 Sicca syndrome 12/29/2014 Acquired hypothyroidism 12/29/2014 Last Assessment & Plan: Continue synthroid Old [place] (myocardial infarction) 11/01/2013 Last Assessment & Plan: [...] as of this encounter (statuses as of 09/22/2024) Resolved Problems Problem Noted Date Diagnosed Date [...] COPD, moderate 04/07/2012 10/05/2012 Overview: PFT 03/2008 [facility] COPD, SEVERE 04/07/2012 05/04/2019 Overview: PER COPD PROTOCOL #24. PFT 03/2008 [facility] LAST PFT -06/07/12 Gastroesophageal reflux dise ase with esophagitis 04/30/2009 01/14/2022 Overview: mild COPD with emphysema 10/05/20 12 documented as of this encounter (statuses as of 09/22/2024) Immunizations Name Administration Dates Next Due COVID-19 mRNA, LNP-s, No Pre serve, 2-Dose Series ([employer]) 09/26/2022,11/18/2021,04/04/2021,02/28 COVID-19, MRNA-LNP, PF, 30 M CG/0.3 mL, 12 YRS AND ABOVE, IM ([employer]) 10/21/2023 Covid-19, Mrna, Lnp-s, Pf, B ivalent, [...] Telephone Encounter - Daily Henderson RPh - 09/22/2024 12:42 PM EDT Patient has been approved for [employer] dusty funding. [employer] ID : [id number] Reference Number : [id number] Marisa Brown Fund : Hypercholesterolemia - Medicare Access Assistance Type : Co-pay Start Date : 08/23/2024 End Date : 08/22/2025 Dusty Balance : $2500.00 * Telephone Encounter - Daily Henderson RPh - 09/21/2024 4:51 PM EDT Sada rhys unsuccessful. Can we please check if pt would qualify for hypercholesterolemia fund? Thank you! Daily Henderson PharmD Clinical Pharmacist - Salesforce Specialist [facility] 09/21/2024 4:51 PM * Telephone Encounter - Cheri Yee RPh - 09/14/2024 11:32 AM EDT myG sent to patient to call assistance team. * Telephone Encounter - Daily Henderson RPh - 09/07/2024 9:59 AM EDT LVM reminding patient to reach out when able. Provided [facility] phone number. Daily Henderson PharmD Clinical Pharmacist - Salesforce Specialist [facility] 09/07/2024 9:59 AM * Telephone Encounter - Daily Henderson RPh - 08/31/2024 2:48 PM EDT Called patient to follow up. States she is currently admitted to the hospital. Is willing to speak with [facility] regarding financial assistance and requests a call to discuss next week. Daily Henderson PharmD Clinical Pharmacist - Salesforce Specialist [facility] 08/31/2024 2:49 PM * Telephone Encounter - Daily Henderson RPh - 08/23/2024 4:01 PM EDT Patient's co-pay is $389.37. [facility] assessing for assistance options but was unable to reach patient. Called patient today and she reports has been away dealing with loss of family member, but plans to return [facility] call regarding Repatha cost tomorrow. * Telephone [...] mg/dL Route referral message to CARDIOLOGY PHARMACIST POOL [[id number]]. Please submit to BOTH primary insurance and secondary insurance (ex PACE/PACENET) if applicable. documented in this encounter Plan of Treatment Upcoming Encounters Date Type Department Care Team (Late st Contact Info) Description 09/29/2024 3:00 PM EST Office Visit Family [facility] [address] [address] Ludy Jacobs CRNP [address] [address] 10/21/2024 3:00 PM EST Telemedicine Psychiatry [place] [address] [place] [phone] Codi Reardon CRNP [address] [place] [address] 11/02/2024 2:40 PM EST Office Visit Family Practice [facility] [address] [place] [address] Ludy Jacobs CRNP [address] [place] [address] 11/08/2024 2:00 PM EST Telemedicine Cardiology [facility], [place] [address] [place] [address] [place], Pharmacist Cardiology [facility] [address] [place] [address] 02/13/2025 3:30 PM EDT Telemedicine Care at Home [address] [place] [address] Lulu Yee PA-C [address] [place] [address] Scheduled Procedures Name Priority Associated Diagnoses Date/Ti me COLONOSCOPY FLEXIBLE PROXIMAL DIAGNOSTIC Recall History of colon polyps Health Maintenance Due Date Last Done Comments Alpha-1 Antitrypsin 1982 HPV/Co-Test 1994 Cologuard 2009 Fecal Occult Blood Test 2009 Sigmoidoscopy 2009 DISCUSS TOBACCO CESSATION (REFER TO SMARTSET #3291) 04/04/2020 04/04/2019, 10/05/2018 Zoster Vaccines (2 of 2) 03/06/2021 01/09/2021 CKD PHOS USE SMARTSET 61030 03/29/2022 03/29/2021, 0 03/28/2021 Albumin/Creatinine Ratio 09/29/2023 09/29/2022, 05/0 03/2021 Mammogram 03/02/2024 03/02/2023, 02/21, 11/04/2016, Additional history exists Depression Monitoring 07/02/2024 07/02/2023 COVID-19 Vaccine ( season) 2024 10/21/2023, 09/26/2022, 09/26/2022, Additional history exists Cervical Cancer Screening 12/04/2024 Pap Smear 12/04/2024 12/04/2021, 02/21, 03/03/2016, Additional history exists GFR 01/30/2025 08/02/2024, 06/0 04/2024, 04/05/2024, Additional history exists CKD HGB USE SMARTSET 57743 08/02/202508/02, 08/02/2024, 04/28/2024, Additional history exists O2 [...] Brown Spouse First Alternate Health Care Agent [place] Adult Child Health Care Agent Care Teams Analysis Intern Relationship Specialty Start Date End Date Ludy Jacobs CRNP [address] [address] PCP - General Nurse Practitioner 04/20/24 documented as of this encounter
--- OUTSIDE RECORDS SUMMARY | 2024-10-13 23:33 | External Medical Summary | Summary of Care ---
Author Name Unknown Organization [facility] Address [address] [place] [address] Phone [phone] Care Team Providers Care Solution Maker Name Role Phone Ludy Jacobs Zeina LY Primary Care Provider Encounter Details Date Type Department Care Team (Late st Contact Info) Description 10/11/2024 8:30 AM EST Scheduled Telephone Care Coordination and Integration [address] [place] [address] Lulu Umaña, Community Health Blacksmith Supervisor [address] [place] [address] Allergies Active Allergy Reactions Criticality Noted Date Comments Adhesive Tape 10/12/2019 Other reaction(s): BANDAIDS SKIN ABRASION Colchicine 05/08/2022 N/v/d Rosuvastatin 04/02/2021 Went into kidney failure Demerol 08/11/2012 Depression Ibuprofen 04/02/2021 Meperidine And Related 09/28/2002 depression Nsaids 04/02/2021 Sulfa Antibiotics Rash 07/09/2001 Ketorolac Tromethamine Medium 04/04/2021 documented as of this encounter (statuses as of 10/11/2024) Medications VALVED HOLDING CHAMBER DEVIIndications:CO PD with [...] COPD, group C, 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 ([facility]),Chronic hypoxemic respiratory failure ([facility]) Use with nebulized medications 1 Each 07/24/20 22 Active Full Kit Nebulizer SetIndications:PLASTIC FRAME INSERTER D, group C, 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 ([facility]),Chronic hypoxemic respiratory failure ([facility]) Use with nebulizer 1 Each 07/24/20 22 Active Syringe 25G X 1-1/2" 3 ML Use for intramuscular B12 injection 1 Each 10/02/20 22 Active Albuterol Sulfate (2.5 MG/3ML) 0.083% Inhalation Nebulization Solution (Proventil)Indicat ions:COPD, group D, 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 ([facility]) Inhale 1 Vial via nebulizer 4 times [...] (HCC),HFrEF (heart failure with reduced ejection fraction) ([facility]) Take 1 Tablet by mouth in the [...] Tablet Extended Release 24 Hour (toPROL XL)Indications:Old [place] (myocardial infarction) TAKE 1 AND 1/2 TABLETS [...] s:COPD, group C, 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 ([facility]) Inhale 2 Puffs by mouth every 4 [...] mgIndications:COPD, group D, 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 ([facility]) 2.5 mg NEBULIZER ONCE PRN 04/28/2024 04/28/2025 Acti ve documented as of this encounter (statuses as of 10/11/2024) Active Problems Problem Noted Date Diagnosed Date [...] noted above Atherosclerotic heart diseas e of chinik coronary artery with other forms of angina [...] (05/30/2022 4:32 PM EDT): Appointment scheduled with [facility] pain clinic [place] 07/02. Statin intolerance 01/24/2022 Osteopenia 01/08/2022 LYNDON [...] aero chamber. 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 Took high dose replacement. Due to repeat. Coronary artery disease invo lving chinik coronary artery of chinik heart without angina pectoris 11/12/2015 Assessment & Plan (01/22/2023 12:36 PM EST): Stable no angina -continue ASA, metoprolol xl, repatha. Can't tolerate delgado d/t low bp Dyslipidemia, goal LDL below 70 11/12/2015 Sicca syndrome 12/29/2014 Acquired hypothyroidism 12/29/2014 Assessment & Plan (01/22/2023 12:45 PM EST): Continue synthroid Old [place] (myocardial infarction) 11/01/2013 Assessment & Plan (05/30/2022 [...] as of this encounter (statuses as of 10/11/2024) Resolved Problems Problem Noted Date Diagnosed Date [...] aero chamber. Test performed by Flex CAR PUSHER CPFT Assessment & Plan (05/30/2022 4:27 PM [...] moderate 04/07/2012 10/05/2012 Overview (04/07/2012): PFT 03/2008 [facility] COPD, SEVERE 04/07/2012 05/04/2019 Overview: PER COPD PROTOCOL #24. PFT 03/2008 [facility] LAST PFT -06/07/12 Gastroesophageal reflux dise ase with esophagitis 04/30/2009 01/14/2022 Overview (05/15/2009): mild ADVANCE DIRECTIVE INFORMATION 12/02/2008 09/26/2024 Overview (12/02/2008): No, Advance Directive brochure offered , patient declined. COPD with emphysema 10/05/20 12 documented as of this encounter (statuses as of 10/11/2024) Immunizations Name Administration Dates Next Due COVID-19 mRNA, LNP-s, No Pre serve, 2-Dose Series ([employer]) 09/26/2022,11/18/2021,04/04/2021,02/28 COVID-19, MRNA-LNP, PF, 30 M CG/0.3 mL, 12 YRS AND ABOVE, IM ([facility]) 10/21/2023 Covid-19, Mrna, Lnp-s, Pf, B ivalent, [...] Entry Date Author No 03/28/2021 5:37 AM EDT Danyell, Da vid, RN documented in this encounter Progress Notes * Lulu Umaña, Community Health Blacksmith Supervisor - 10/11/2024 10:05 AM EST Telemedicine visit: [facility] outbound call per NADER Gould [facility] Left voicemail to call [facility] and included phone numbrer Lulu Umaña [facility] Community Health Worker Call or Text- [phone] documented in this encounter Plan of Treatment Upcoming Encounters Date Type Department Care Team (Late st Contact Info) Description 10/18/2024 11:45 AM EST Scheduled Telephone Care Coordination and Integration [address] [place] [address] Lulu Umaña, Community Health Blacksmith Supervisor [address] [place] [address] 10/21/2024 3:00 PM EST Telemedicine Psychiatry [facility] [address] [place] [id number] Codi Reardon, ALIYAH [address] [place] [address] 11/08/2024 2:00 PM EST Telemedicine Cardiology [facility], [place] [address] [place] [address] [place], Pharmacist Cardiology H[facility] [address] [place] [address] 11/10/2024 2:20 PM EST Office Visit Family Practice [facility] [address] [facility] [place] [address] Ludy Jacobs CRNP [address] [place] [address] 02/13/2025 3:30 PM EDT Telemedicine Care at Home [address] [place] [address] Lulu Yee PA-C [address] [place] [address] Scheduled Procedures Name Priority Associated Diagnoses Date/Ti me COLONOSCOPY FLEXIBLE PROXIMAL DIAGNOSTIC Recall History of colon polyps Health Maintenance Due Date Last Done Comments Alpha-1 Antitrypsin 1982 HPV/Co-Test 1994 Cologuard 2009 Fecal Occult Blood Test 2009 Sigmoidoscopy 2009 Zoster Vaccines (2 of 2) 03/06/2021 01/09/2021 CKD PHOS USE SMARTSET 19006 03/29/2022 03/29/2021, 0 03/28/2021 Albumin/Creatinine Ratio 09/29/2023 09/29/2022, 050 03/2021 Mammogram 03/02/2024 03/02/2023, 02/21, 11/04/2016, Additional history exists COVID-19 Vaccine ( season) 2024 10/21/2023, 09/26/2022, 09/26/2022, Additional history exists Cervical Cancer Screening 12/04/2024 Pap Smear 12/04/2024 12/04/2021, 02/21, 03/03/2016, Additional history exists GFR 01/30/2025 08/02/2024, 06/0 04/2024, 04/05/2024, Additional history exists CKD HGB USE SMARTSET 66637 08/02/202508/02, 08/02/2024, 04/28/2024, Additional history exists O2 [...] 9:46 PM 03/29/2021 6:15 PM This order re flects the patients wishes and were consensually agreed upon. Question Answer Comments Discussion of Advance Directives occurred with: Patient * Full Code Date Activated Date Inactivated Comments 03/14/2019 1:39 PM 03/14/2019 6:13 PM This order r eflects the patients wishes and were consensually agreed upon. Healthcare Agents on File Name Relationship Healthcare Agent [facility] Lopez Brown Spouse First Alternate Health Care Agent [place] Adult Child Health Care Agent Care Teams Solution Maker Relationship Specialty Start Date End Date Ludy Jacobs CRNP [address] [place] [address] PCP - General Nurse Practitioner 04/20/24 documented as of this encounter
--- OUTSIDE RECORDS SUMMARY | 2024-10-13 23:33 | External Medical Summary | Summary of Care ---
Author Name Unknown Organization [facility] Address [address] [facility] [place] [address] Phone [phone] Care Team Providers Care Solar Tech Name Role Phone Ludy Jacobs Zeina LY Primary Care Provider Reason for Visit * Reason Comments eRx-Medication Refill Encounter Details Date Type Department Care Team (Late st Contact Info) Description 10/04/2024 Refill Family Practice [facility] [address] [facility] [place] [address] Ace Rodriguez, DO [address] [place] [address] Allergies Active Allergy Reactions Criticality Noted Date Comments Adhesive Tape 10/12/2019 Other reaction(s): BANDAIDS SKIN ABRASION Colchicine 05/08/2022 N/v/d Rosuvastatin 04/02/2021 Went into kidney failure Demerol 08/11/2012 Depression Ibuprofen 04/02/2021 Meperidine And Related 09/28/2002 depression Nsaids 04/02/2021 Sulfa Antibiotics Rash 07/09/2001 Ketorolac Tromethamine Medium 04/04/2021 documented as of this encounter (statuses as of 10/06/2024) Medications VALVED HOLDING CHAMBER DEVIIndications:C OPD with emphysema (HCC) to be used with inhalers as instructed 1 Device 2 012 Active Additional Information Patient not taking.Informant: Transferring Facility Documents, Reported on 02/02/2024 oxygen GAS 2 LPM via NC during hours of sleep 1 Each 018 Active Additional Information Patient taking differently: 2 L/min(Oxygen), 2 LPM via NC all day and during hours, Informant: Transferring Facility Documents, Reported on 12/24/2022 Nebulizers (NEBULIZER COMPRESSOR) MISC Inhale via nebulizer. Along with supply . Use as directed. Dx code- J44.9 and J43.9 1 Each 018 Active aspirin enteric coated 81 MG TBEC Take 1 Tablet by mouth every morning. Active Acetaminophen 325 MG Oral Tablet (Tylenol) Take 1 Tablet by mouth every 6 hours as needed. Active Nebulizer DeviceIndications :COPD, group C, 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 ([facility]),Chronic hypoxemic respiratory failure ([facility]) Use with nebulized medications 1 Each 022 Active Full Kit Nebulizer SetIndications:CO PD, group C, 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 ([facility]),Chronic hypoxemic respiratory failure ([facility]) Use with nebulizer 1 Each 022 Active Syringe 25G X 1-1/2" 3 ML Use for intramuscular B12 injection 1 Each 022 Active Albuterol Sulfate (2.5 MG/3ML) 0.083% Inhalation Nebulization Solution (Proventil)Indica tions:COPD, group D, 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 ([facility]) Inhale 1 Vial via nebulizer 4 times a day as needed for Wheezing. Use in place of rescue inhaler. 360 mL 2 023 Active Midodrine HCl 5 MG Oral Tablet (Proamatine)Indic ations:Chronic diastolic congestive heart failure (HCC) Take 1 Tablet by mouth in the morning and 1 Tablet at noon and 1 Tablet before bedtime. 270 Tablet 3 023 Active Empagliflozin 10 MG Oral Tablet (Jardiance)Indica tions:Chronic combined systolic and diastolic congestive heart failure (HCC) Take 1 Tablet by mouth in the morning. 90 Tablet 3 024 Active Entresto 24-26 MG Oral Tablet (sacubitril-valsa rtan 24-26 mg per tab)Indications:C hronic combined systolic and diastolic congestive heart failure (HCC),HFrEF (heart failure with reduced ejection fraction) (HCC) Take 1 Tablet by mouth in the morning and 1 Tablet before bedtime. 180 Tablet 3 024 Active Additional Information Patient not taking.Reported on 09/27/2024 Ondansetron HCl 4 MG Oral Tablet (Zofran)Indicatio ns:Nausea TAKE (1) TABLET BY MOUTH EVERY EIGHT HOURS NEEDED FOR NAUSEA. Strength: 4 mg 30 Tablet 024 Active Omeprazole 20 MG Oral Capsule Delayed Release (PriLOSEC)Indicat ions:Abdominal pain, epigastric TAKE 1 CAPSULE IN THE MORNING AND 1 CAPSULE BEFORE BEDTIME 60 Capsule 5 024 Active Metoprolol Succinate ER 50 MG Oral Tablet Extended Release 24 Hour (toPROL XL)Indications:Ol d MD (myocardial infarction) TAKE 1 AND 1/2 TABLETS BY MOUTH EVERY MORNING 135 Tablet 024 Active Methocarbamol 500 MG Oral Tablet (Robamol)Indicati ons:Chronic pain syndrome TAKE 1 TABLET IN THE MORNING, 1 AT NOON, 1 IN THE EVENING AND 1 BEFORE BEDTIME. 120 Tablet 3 024 Active Folic Acid 1 MG Oral TabletIndications :Folic acid deficiency Take 1 Tablet by mouth in the morning. In the morning.. 100 Tablet 3 024 Active Synthroid 75 MCG Oral TabletIndications :Acquired hypothyroidism TAKE 1 TABLET BY MOUTH DAILY (AT LEAST 30 MINUTES PRIOR TO BREAKFAST OR OTHER MEDS). 90 Tablet 3 024 Active Spironolactone 25 MG Oral Tablet (Aldactone)Indica tions:Chronic combined systolic and diastolic congestive heart failure (HCC) Take 0.5 Tablets by mouth in the morning. 45 Tablet 3 024 Active Repatha SureClick 140 MG/ML Subcutaneous Solution Auto-injector (evolocumab) Inject 140 mg (1 pen) under the skin every 14 days. Remove from refrigerator 30 minutes prior to injection. 6 mL 3 024 Active PARoxetine HCl 40 MG Oral Tablet (pAXil) Take 1 Tablet by mouth in the morning. 30 Tablet 3 024 Active Pregabalin 75 MG Oral Capsule (Lyrica)Indicatio ns:Complex regional pain syndrome type 1 of left upper extremity Take 1 Capsule by mouth in the morning and 1 Capsule at noon and 1 Capsule before bedtime. 90 Capsule 5 024 Active Albuterol Sulfate HFA 108 (90 Base) MCG/ACT Inhalation Aerosol SolutionIndicatio ns:COPD, group C, 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 ([facility]) Inhale 2 Puffs by mouth every 4 hrs as needed for Cough, Shortness of Breath or Withdrawal symptoms. 54 g 1 024 Active LORazepam 0.5 MG Oral Tablet (Ativan) Take 1 Tablet by mouth daily as needed for Anxiety. Do not start before August 12, 2024. 30 Tablet 2 Active Ipratropium-Albut bryant 0.5-2.5 (3) MG/3ML Inhalation Solution (Duoneb) USE 1 AMPULE IN NEBULIZER 4 TIMES DAILY NEEDED FOR COUGH, SHORTNESS OF BREATH OR WHEEZING -USE IN PLACE OF RESCUE INHALER 360 mL 5 Active Ipratropium-Albut bryant 0.5-2.5 (3) MG/3ML Inhalation Solution (Duoneb) INHALE 3 ML VIA NEBULIZER 4 TIMES DAILY NEEDED FOR COUGH, SHORTNESS OF BREATH OR WHEEZING. USE IN PLACE OF RESCUE INHALER. 360 mL 5 024 2023 Discontinued Hospital, Clinic, or Other Facility Administered Medication Ordered Dose Route Frequency Start Date End Date Status Albuterol Sulfate (Proventil) (2.5 MG/3ML) 0.083% inhalation solution 2.5 mgIndications:COPD, group D, 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 ([facility]) 2.5 mg NEBULIZER ONCE PRN 04/28/2024 04/28/2025 Acti ve documented as of this encounter (statuses as of 10/06/2024) Active Problems Problem Noted Date Diagnosed Date [...] noted above Atherosclerotic heart diseas e of cheesh-na coronary artery with other forms of angina [...] (05/30/2022 4:32 PM EDT): Appointment scheduled with [facility] pain clinic [place] 07/02. Statin intolerance 01/24/2022 Osteopenia 01/08/2022 LNYDON (generalized anxiety disorder) 10/07/2021 Assessment & Plan [...] use aero chamber. 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 Took high dose replacement. Due to repeat. Coronary artery disease invo lving cheesh-na coronary artery of cheesh-na heart without angina pectoris 11/12/2015 Assessment & Plan (01/22/2023 12:36 PM EST): Stable no angina -continue ASA, metoprolol xl, repatha. Can't tolerate delgado d/t low bp Dyslipidemia, goal LDL below 70 11/12/2015 Sicca syndrome 12/29/2014 Acquired hypothyroidism 12/29/2014 Assessment & Plan (01/22/2023 12:45 PM EST): Continue synthroid Old MD (myocardial infarction) 11/01/2013 Assessment & Plan (05/30/2022 [...] as of this encounter (statuses as of 10/06/2024) Resolved Problems Problem Noted Date Diagnosed Date [...] use aero chamber. Test performed by Flex BULK SAUSAGE CASING TIER OFF CPFT Assessment & Plan (05/30/2022 4:27 PM [...] use aero chamber. Test performed by Flex BULK SAUSAGE CASING TIER OFF CPFT COPD, group B, by GOLD 2017 [...] moderate 04/07/2012 10/05/2012 Overview (04/07/2012): PFT 03/2008 [facility] COPD, SEVERE 04/07/2012 05/04/2019 Overview: PER COPD PROTOCOL #24. PFT 03/2008 [facility] LAST PFT -06/07/12 Gastroesophageal reflux dise ase with esophagitis 04/30/2009 01/14/2022 Overview (05/15/2009): mild ADVANCE DIRECTIVE INFORMATION 12/02/2008 09/26/2024 Overview (12/02/2008): No, Advance Directive brochure offered , patient declined. COPD with emphysema 10/05/20 12 documented as of this encounter (statuses as of 10/06/2024) Immunizations Name Administration Dates Next Due COVID-19 mRNA, LNP-s, No Pre serve, 2-Dose Series ([employer]) 09/26/2022,11/18/2021,04/04/2021,02/28 COVID-19, MRNA-LNP, PF, 30 M CG/0.3 mL, 12 YRS AND ABOVE, IM [facility] 10/21/2023 Covid-19, Mrna, Lnp-s, Pf, B ivalent, 30 Mcg, IM, 12 yrs and above ([employer]) 09/26/2022 HEPATITIS B VACCINE, RECOMB, 20 MCG/ML, [...] No 09/27/2024 Does the household have a [facility] source of income? (Household - for ages [...] Assessment Author No 03/28/2021 5:37 AM Valentino Mcduffie, BREE * Are you blind or do you have serious difficulty seeing, even when wearing glasses? Answer Date of Assessment Author No 03/28/2021 5:37 AM Valentino Mcduffie, BREE * Do you have serious difficulty walking or climbing stairs? (5 years old or older) Answer Date of Assessment Author Yes 03/28/2021 10:00 AM Daija Benavides RN * Do you have difficulty dressing or bathing? (5 years old or older) Answer Date of Assessment Author Yes 03/28/2021 5:37 AM Valentino Mcduffie, BREE * Because of a physical, mental, or [...] Valentino Mcduffie RN documented in this encounter Miscellaneous Notes * [facility] 7[facility]50 AM ESTSigned Prescriptions: Disp Refills Ipratropium-Albuterol 0.5-2.5 (3) MG/3ML I*360 mL 5 Sig: USE 1 AMPULE IN NEBULIZER 4 TIMES DAILY NEEDED FOR COUGH, SHORTNESS OF BREATH OR WHEEZING -USE IN PLACE OF RESCUE INHALERAuthorizing Provider: LUDY JACOBS User: NICOLA HAUSER--------- * Telephone Encounter - Nicola Batista [facility] - 10/06/2024 7:50 AM ESTSigned Prescriptions: Disp Refills Ipratropium-Albuterol 0.5-2.5 (3) MG/3ML I*360 mL 5 Sig: USE 1 AMPULE IN NEBULIZER 4 TIMES DAILY NEEDED FOR COUGH, SHORTNESS OF BREATH OR WHEEZING -USE IN PLACE OF RESCUE INHALER Authorizing Provider: LUDY JACOBS User: NICOLA HAUSER -- * Telephone Encounter - Dania Bran PHARM Tech - 10/04/2024 11:45 AM EST Please reroute Rx to [facility] [id number] [address] [address] [place]. Pending Prescriptions: Disp Refills Ipratropium-Albuterol 0.5-2.5 (3) MG/3ML *360 mL 0 Sig: USE 1 AMPULE IN NEBULIZER 4 TIMES DAILY NEEDED FOR COUGH, SHORTNESS OF BREATH OR WHEEZING -USE IN PLACE OF RESCUE INHALER Last Visit: 08/02/2024 (in office), 01/14/2024 (telemedicine) 11/02/2024 If no future appointments scheduled, and last appointment is greater than a year ago, please schedule patient for a follow-up appointment Last date the medication was ordered: 08/11/2024 Patient Phone Numbers Labs: Lab Results Component Value Date/Time CREAT 1.3 (H) 08/02/2024 03:56 PM CREAT 0.8 05/09/2020 03:49 PM POTASSIUM 4.0 08/02/2024 03:56 PM POTASSIUM 5.4 (H) 04/05/2024 09:30 AM POTASSIUM 3.8 05/09/2020 03:49 PM TSH 3.96 08/02/2024 03:56 PM TSH 1.37 05/09/2020 03:49 PM LDL 182 (H) 08/02/2024 03:56 PM LDL 72 05/09/2020 03:49 PM LDLCALC 64 12/22/2014 12:00 AM ALT 11 04/28/2024 03:55 PM ALT 22 05/09/2020 03:49 PM HGBA1C 5.5 09/29/2022 11:08 AM HGBA1C 5.8 (H) 05/09/2020 03:49 PM documented in this encounter Plan of Treatment Upcoming Encounters Date Type Department Care Team (Late st Contact Info) Description 10/21/2024 3:00 PM EST Telemedicine Psychiatry [facility] [address] [place] [phone] Codi Reardon CRNP [address] [place] [address] 11/02/2024 2:40 PM EST Office Visit [facility] [address] [place] [address] Ludy Jacobs CRNP [address] [place] [address] 11/08/2024 2:00 PM EST Telemedicine Cardiology [facility] [place] [address] [place] [address] [place] [address], Pharmacist Cardiology [facility] [address] [place] [address] 02/13/2025 3:30 PM EDT Telemedicine Care at Home [address] [place] [address] Lulu Yee PA-C [address] [place] [address] Scheduled Procedures Name Priority Associated Diagnoses Date/Ti me COLONOSCOPY FLEXIBLE PROXIMAL DIAGNOSTIC Recall History of colon polyps Health Maintenance Due Date Last Done Comments Alpha-1 Antitrypsin 1982 HPV/Co-Test 1994 Cologuard 2009 Fecal Occult Blood Test 2009 Sigmoidoscopy 2009 Zoster Vaccines (2 of 2) 03/06/2021 01/09/2021 CKD PHOS USE SMARTSET 52516 03/29/2022 03/29/2021, 0 03/28/2021 Albumin/Creatinine Ratio 09/29/2023 09/29/2022, 0503/2021 Mammogram 03/02/2024 03/02/2023, 02/21, 11/04/2016, Additional history exists COVID-19 Vaccine ( season) 2024 10/21/2023, 09/26/2022, 09/26/2022, Additional history exists Cervical Cancer Screening 12/04/2024 Pap Smear 12/04/2024 12/04/2021, 02/21, 03/03/2016, Additional history exists GFR 01/30/2025 08/02/2024, 06/0 04/2024, 04/05/2024, Additional history exists CKD HGB USE SMARTSET 04180 08/02/202508/02, 08/02/2024, 04/28/2024, Additional history exists O2 [...] Brown Spouse First Alternate Health Care Agent [place] Adult Child Health Care Agent Care Teams Solar Tech Relationship Specialty Start Date End Date Ludy Jacobs CRNP [address] [place] [address] PCP - General Nurse Practitioner 04/20/24 documented as of this encounter
--- OUTSIDE RECORDS SUMMARY | 2024-10-13 23:33 | External Medical Summary | Summary of Care ---
Author Name Unknown Organization [facility] Address [address] [facility] [place] [address] Phone [phone] Care Team Providers Care Tree Feller Name Role Phone Ludy Jacobs Zeina YL Primary Care Provider Encounter Details Date Type Department Care Team (Late st Contact Info) Description 09/29/2024 Population Health External Data Unspecified Department Allergies [...] as of 10/06/2024) Medications VALVED HOLDING CHAMBER DEVIIndications:CO PD with [...] Documents, Reported on 12/24/2022 Nebulizers (NEBULIZER COMPRESSOR) [facility] Inhale via nebulizer. Along with supply . Use as directed. Dx code- J44.9 and J43.9 1 Each 10/05/20 18 Active aspirin enteric coated 81 MG TBEC Take 1 Tablet by mouth every morning. Active Acetaminophen 325 MG Oral Tablet (Tylenol) Take 1 Tablet by mouth every 6 hours as needed. Active Nebulizer DeviceIndications: COPD, group C, 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 ([facility]),Chronic hypoxemic respiratory failure ([facility]) Use with nebulized medications 1 Each 07/24/20 22 Active Full Kit Nebulizer SetIndications:HEDIS ANALYST D, group C, 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 ([facility]),Chronic hypoxemic respiratory failure ([facility]) Use with nebulizer 1 Each 07/24/20 Active Syringe 25G X 1-1/2" 3 ML Use for intramuscular B12 injection 1 Each 10/02/20 22 Active Albuterol Sulfate (2.5 MG/3ML) 0.083% Inhalation Nebulization Solution (Proventil)Indicat ions:COPD, group D, 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 ([facility]) Inhale 1 Vial via nebulizer 4 times [...] (HCC),HFrEF (heart failure with reduced ejection fraction) ([facility]) Take 1 Tablet by mouth in the [...] Tablet Extended Release 24 Hour (toPROL XL)Indications:Old PR (myocardial infarction) TAKE 1 AND 1/2 TABLETS [...] BREAKFAST OR OTHER MEDS). 90 Tablet 3 05/03/20 24 Active Spironolactone 25 MG Oral Tablet (Aldactone)Indicat ions:Chronic combined systolic and diastolic congestive heart failure (HCC) Take 0.5 Tablets by mouth in the morning. 45 Tablet 3 05/04/20 24 Active Repatha SureClick 140 MG/ML Subcutaneous Solution Auto-injector (evolocumab) Inject 140 mg (1 pen) under the skin every 14 days. Remove from refrigerator 30 minutes prior to injection. 6 mL 05/04/20 24 Active PARoxetine HCl 40 MG Oral Tablet (pAXil) Take 1 Tablet by mouth in the morning. 30 Tablet 3 05/13/20 24 Active Pregabalin 75 MG Oral Capsule (Lyrica)Indication s:Complex regional pain syndrome type 1 of left upper extremity Take 1 Capsule by mouth in the morning and 1 Capsule at noon and 1 Capsule before bedtime. 90 Capsule 5 06/20/20 24 Active Albuterol Sulfate HFA 108 (90 Base) MCG/ACT Inhalation Aerosol SolutionIndication s:COPD, group C, 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 ([facility]) Inhale 2 Puffs by mouth every 4 hrs as needed for Cough, Shortness of Breath or Withdrawal symptoms. 54 g 1 07/11/20 24 Active LORazepam 0.5 MG Oral Tablet (Ativan) Take 1 Tablet by mouth daily as needed for Anxiety. Do not start before August 12, 2024. 30 Tablet 2 08/12/20 24 Active Hospital, Clinic, or Other Facility Administered Medication Ordered Dose Route Frequency Start Date End Date Status Albuterol Sulfate (Proventil) (2.5 MG/3ML) 0.083% inhalation solution 2.5 mgIndications:COPD, group D, 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 ([facility]) 2.5 mg NEBULIZER ONCE PRN 04/28/2024 04/28/2025 [...] noted above Atherosclerotic heart diseas e of [place] coronary artery with other forms of angina [...] (05/30/2022 4:32 PM EDT): Appointment scheduled with [facility] pain clinic [place] 07/02. Statin intolerance 01/24/2022 Osteopenia 01/08/2022 LYNDON [...] use aero chamber. Test performed by Flex GIN CLERK CPFT Circadian rhythm sleep disorder 09/17/2018 Nocturnal hypoxemia due to emphysema 07/30/2018 Adjustment disorder with mixed anxiety and depre ssed mood 07/04/2018 TERMINATED MEDICATION USAGE AGREEMENT 06/03/2018 Dupuytren's contracture of left hand 02/01/2018 Mixed incontinence urge and stress (male)(female ) 03/20/2017 Vitamin D deficiency 03/03/2016 Overview (03/03/2016): March 2015 = 13. Took high dose replacement. Due to repeat. Coronary artery disease invo lving [place] coronary artery of [place] heart without angina pectoris 11/12/2015 Assessment & Plan (01/22/2023 12:36 PM EST): Stable no angina -continue ASA, metoprolol xl, repatha. Can't tolerate delgado d/t low bp Dyslipidemia, goal LDL below 70 11/12/2015 Sicca syndrome 12/29/2014 Acquired hypothyroidism 12/29/2014 Assessment & Plan (01/22/2023 12:45 PM EST): Continue synthroid Old PR (myocardial infarction) 11/01/2013 Assessment & Plan (05/30/2022 [...] chamber. Test performed by Flex CAR CPFT Assessment & Plan (05/30/2022 4:27 PM [...] use aero chamber. Test performed by Flex GIN CLERK CPFT COPD, group B, by GOLD 2017 [...] moderate 04/07/2012 10/05/2012 Overview (04/07/2012): PFT 03/2008 [facility] COPD, SEVERE 04/07/2012 05/04/2019 Overview: PER COPD PROTOCOL #24. PFT 03/2008 [facility] LAST PFT -06/07/12 Gastroesophageal reflux dise ase with esophagitis 04/30/2009 01/14/2022 Overview (05/15/2009): mild ADVANCE DIRECTIVE INFORMATION 12/02/2008 09/26/2024 Overview (12/02/2008): No, Advance Directive brochure offered , patient declined. COPD with emphysema 10/05/20 12 documented as of this encounter (statuses as of 10/06/2024) Immunizations Name Administration Dates Next Due COVID-19 mRNA, LNP-s, No Pre serve, 2-Dose Series ([employer]) 09/26/2022,11/18/2021,04/04/2021,02/28 COVID-19, MRNA-LNP, PF, 30 M CG/0.3 mL, 12 YRS AND ABOVE, IM ([employer]) 10/21/2023 Covid-19, Mrna, Lnp-s, Pf, B ivalent, 30 Mcg, IM, 12 yrs and above ([employer]) 09/26/2022 HEPATITIS B VACCINE, RECOMB, 20 MCG/ML, [...] of Assessment Author No 03/28/2021 5:37 AM EDT Valentino Child RN * Are you blind or do you have serious difficulty seeing, even when wearing glasses? Answer Date of Assessment Author No 03/28/2021 5:37 AM EDT Valentino Child RN * Do you have serious difficulty walking or climbing stairs? (5 years old or older) Answer Date of Assessment Author Yes 03/28/2021 10:00 AM EDT Daija Li RN * Do you have difficulty dressing or bathing? (5 years old or older) Answer Date of Assessment Author Yes 03/28/2021 5:37 AM EDT Valentino Child RN * Because of a physical, mental, [...] Valentino Mcduffie RN documented in this encounter Plan of Treatment Upcoming Encounters Date Type Department Care Team (Late st Contact Info) Description 10/21/2024 3:00 PM EST Telemedicine Psychiatry [facility] [address] [place] [phone] Codi Reardon CRNP [address] [place] [address] 11/02/2024 2:40 PM EST Office Visit Family Practice [address] [place] [address] Ludy Jacobs CRNP [address] [place] [id number] 11/08/2024 2:00 PM EST Telemedicine Cardiology [facility] [place] [address] [place] [address] [place] [address], Pharmacist Cardiology [facility] [address] [place] [address] 02/13/2025 3:30 PM EDT Telemedicine Care at Home [address] [place] [address] Lulu Yee PA-C [address] [place], [place] [id number] Scheduled Procedures Name Priority Associated Diagnoses Date/Ti me COLONOSCOPY FLEXIBLE PROXIMAL DIAGNOSTIC Recall History of colon polyps Health Maintenance Due Date Last Done Comments Alpha-1 Antitrypsin 1982 HPV/Co-Test 1994 Cologuard 2009 Fecal Occult Blood Test 2009 Sigmoidoscopy 2009 Zoster Vaccines (2 of 2) 03/06/2021 01/09/2021 CKD PHOS USE SMARTSET 23036 03/29/2022 03/29/2021, 0 03/28/2021 Albumin/Creatinine Ratio 09/29/2023 09/29/2022, 05/0 03/2021 Mammogram 03/02/2024 03/02/2023, 02/21, 11/04/2016, Additional history exists COVID-19 Vaccine ( season) 2024 10/21/2023, 09/26/2022, 09/26/2022, Additional history exists Cervical Cancer Screening 12/04/2024 Pap Smear 12/04/2024 12/04/2021, 02/21, 03/03/2016, Additional history exists GFR 01/30/2025 08/02/2024, 06/0 04/2024, 04/05/2024, Additional history exists CKD HGB USE SMARTSET 05222 08/02/202508/02, 08/02/2024, 04/28/2024, Additional history exists O2 [...] Agents on File Name Relationship Healthcare Agent [facility] p Communication Lopez Brown Spouse First Alternate Health Care Agent [place] Adult Child Health Care Agent Care Teams Tree Feller Relationship Specialty Start Date End Date Ludy Jacobs CRNP [address] [place] [address] PCP - General Nurse Practitioner 04/20/24 documented as of this encounter
--- OUTSIDE RECORDS SUMMARY | 2024-10-13 23:34 | External Medical Summary | Summary of Care ---
Author Name Unknown Organization [facility] Address [address] [facility] [place] [address] Phone [phone] Care Team Providers Care Bindery Machine Feeder Offbearer Name Role Phone Ludy Jacobs Zeina LY Primary Care Provider Encounter Details Date Type Department Care Team (Late st Contact Info) Description 09/21/2024 Population Health External Data Unspecified Department Allergies [...] Documents, Reported on 12/24/2022 Nebulizers (NEBULIZER COMPRESSOR) [facility] Inhale via nebulizer. Along with supply . Use as directed. Dx code- J44.9 and J43.9 1 Each 10/05/2018 Active aspirin enteric coated 81 MG TBEC Take 1 Tablet by mouth every morning. Active Acetaminophen 325 MG Oral Tablet (Tylenol) Take 1 Tablet by mouth every 6 hours as needed. Active Nebulizer DeviceIndications:CO PD, group C, 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 ([facility]),Chronic hypoxemic respiratory failure ([facility]) Use with nebulized medications 1 Each 07/24/2022 Active Full Kit Nebulizer SetIndications:COPD, group C, 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 ([facility]),Chronic hypoxemic respiratory failure ([facility]) Use with nebulizer 1 Each 07/24/2022 Active Syringe 25G X 1-1/2" 3 ML Use for intramuscular B12 injection 1 Each 11 10/02/2022 Active Albuterol Sulfate (2.5 MG/3ML) 0.083% Inhalation Nebulization Solution (Proventil)Indicatio ns:COPD, group D, 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 ([facility]) Inhale 1 Vial via [...] Oral Tablet (sacubitril-valsarta n 24-26 mg per tab)Indications:Calender Inspector darius combined systolic and diastolic congestive heart failure (HCC),HFrEF (heart failure with reduced ejection fraction) ([facility]) Take 1 Tablet by [...] Tablet Extended Release 24 Hour (toPROL XL)Indications:Old HI (myocardial infarction) TAKE 1 AND 1/2 TABLETS [...] group C, 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 ([facility]) Inhale 2 Puffs by [...] noted above Atherosclerotic heart diseas e of [place] coronary artery with other forms of angina pectoris 11/12/2022 Chronic hypoxemic respiratory failure 10/30/2022 Last Assessment & Plan: O2 stable on 2 L PTSD (post-traumatic stress disorder) 10/30/2022 RSD (reflex sympathetic dystrophy) 10/30/2022 Neuropathic pain 07/02/2022 Last Assessment & Plan: Continue lyrica AC joint arthropathy 06/11/2022 Tendinosis of rotator cuff 06/11/2022 Chronic pain 03/04/2022 Last Assessment & Plan: Appointment scheduled with [facility] pain clinic [place] 07/02. Statin intolerance 01/24/2022 Osteopenia 01/08/2022 LYNDON [...] use aero chamber. Test performed by Flex BUSINESS ANALYSIS PROFESSIONAL CPFT Circadian rhythm sleep disorder 09/17/2018 Nocturnal hypoxemia due to emphysema 07/30/2018 Adjustment disorder with mixed anxiety and depre ssed mood 07/04/2018 TERMINATED MEDICATION USAGE AGREEMENT 06/03/2018 Dupuytren's contracture of left hand 02/01/2018 Mixed incontinence urge and stress (male)(female ) 03/20/2017 Vitamin D deficiency 03/03/2016 Overview: March 2015 = 13. Took high dose replacement. Due to repeat. Coronary artery disease invo lving [place] coronary artery of [place] heart without angina pectoris 11/12/2015 Last Assessment & Plan: Stable no angina -continue ASA, metoprolol xl, repatha. Can't tolerate delgado d/t low bp Dyslipidemia, goal LDL below 70 11/12/2015 Sicca syndrome 12/29/2014 Acquired hypothyroidism 12/29/2014 Last Assessment & Plan: Continue synthroid Old HI (myocardial infarction) 11/01/2013 Last Assessment & Plan: [...] use aero chamber. Test performed by Flex BUSINESS ANALYSIS PROFESSIONAL CPFT Last Assessment & Plan: O2 stable [...] moderate 04/07/2012 10/05/2012 Overview: PFT 03/2008 [facility] COPD, SEVERE 04/07/2012 05/04/2019 Overview: PER COPD PROTOCOL #24. PFT 03/2008 [facility] LAST PFT -06/07/12 Gastroesophageal reflux dise ase with esophagitis 04/30/2009 01/14/2022 Overview: mild COPD with emphysema 10/05/20 12 documented as of this encounter (statuses as of 09/21/2024) Immunizations Name Administration Dates Next Due COVID-19 mRNA, LNP-s, No Pre serve, 2-Dose Series ([employer]) 09/26/2022,11/18/2021,04/04/2021,02/28 COVID-19, MRNA-LNP, 23-24, P F, 30 MCG/0.3 mL, 12 YRS AND ABOVE, IM ([email or web address]) 10/21/2023 Covid-19, Mrna, Lnp-s, Pf, B ivalent, [...] Telemedicine Psychiatry [place] [address] [place] [id number] Codi Reardon CRNP [address] [place] [address] 11/02/2024 2:40 PM EST Office Visit Family [facility] [address] [place] [address] Ludy Jacobs CRNP [address] [place] [address] 11/08/2024 2:00 PM EST Telemedicine Cardiology [facility] [place] [address] [place], [place] [id number] [facility] Pharmacist Cardiology [facility] [address] [place] [address] 02/13/2025 3:30 PM EDT Telemedicine Care at Home [address] [place] [address] Lulu Yee PA-C [address] [place] [address] Scheduled Procedures Name Priority Associated Diagnoses Date/Ti me COLONOSCOPY FLEXIBLE PROXIMAL DIAGNOSTIC Recall History of colon polyps Health Maintenance Due Date Last Done Comments Alpha-1 Antitrypsin 1982 HPV/Co-Test 1994 Cologuard 2009 Fecal Occult Blood Test 2009 Sigmoidoscopy 2009 DISCUSS TOBACCO CESSATION (REFER TO SMARTSET #7170) 04/04/2020 04/04/2019, 10/05/2018 Zoster Vaccines (2 of 2) 03/06/2021 01/09/2021 CKD PHOS USE SMARTSET 57203 03/29/2022 03/29/2021, 0 03/28/2021 Albumin/Creatinine Ratio 09/29/2023 09/29/2022, 05/0 03/2021 Mammogram 03/02/2024 03/02/2023, 02/21, 11/04/2016, Additional history exists Depression Monitoring 07/02/2024 07/02/2023 COVID-19 Vaccine ( season) 2024 10/21/2023, 09/26/2022, 09/26/2022, Additional history exists Cervical Cancer Screening 12/04/2024 Pap Smear 12/04/2024 12/04/2021, 02/21, 03/03/2016, Additional history exists GFR 01/30/2025 08/02/2024, 06/0 04/2024, 04/05/2024, Additional history exists CKD HGB USE SMARTSET 84476 08/02/202508/02, 08/02/2024, 04/28/2024, Additional history exists O2 [...] Agents on File Name Relationship Healthcare Agent [facility] Communication Lopez Santiago Spouse First Alternate Health Care Agent [place] Adult Child Health Care Agent Care Teams Bindery Machine Feeder Offbearer Relationship Specialty Start Date End Date Ludy Jacobs CRNP [address] [address] PCP - General Nurse Practitioner 04/20/24 documented as of this encounter
--- NOTE | 2024-10-14 05:33 | Electrocardiogram Report ---
Test Reason : Blood Pressure : */* mmHG Vent. Rate : 74 BPM Atrial Rate : 74 BPM P-R Int : 132 ms QRS Dur : 98 ms QT Int : 418 ms P-R-T Axes : 90 86 80 degrees QTcB Int : 463 ms Sinus rhythm with sinus arrhythmia with occasional Premature ventricular complexes Right atrial enlargement Borderline ECG When compared with ECG of 20-Sep-2024 08:34, Premature ventricular complexes are now Present QT has lengthened Confirmed by Tyrese Jackson ([id number]) on 10/14/2024 5:32:48 AM Referred By: REFERRED SELF Confirmed By: Tyrese Jackson
[2024-10-14 06:38] LABS: BUN Creatinine Ratio 12.4 (10-20); Calcium 8.6 mg/dl (8.6-10.3); Creatinine Clr Calc Pharmacy 31.9 ml/min; Potassium 3.7 mmol/L (3.5-5.1)
[2024-10-14] MEDS: methylPREDNISolone 40 MG in SYRINGE 0 ML IV SCH (10:23)
--- NOTE | 2024-10-14 13:20 | Hospitalist Progress Note ---
Date of Service October 14, 2024 Assessment & Plan (1) COPD exacerbation: Plan: 59-year-old female with past med history significant for chronic respiratory failure on 2 L oxygen, COPD, hypothyroidism, hyperlipidemia, lung nodules, history of CAD status post stent, chronic combined systolic and diastolic CHF, CKD stage III, cerebellar hemangioma, hypertension, moderate mitral regurgitation, irritable bowel syndrome with constipation, gastroparesis, sicca syndrome, diverticulosis, degenerative disease, reflux sympathetic dystrophy, depression, generalized anxiety disorder, PTSD, statin intolerance, presents with shortness of breath and cough going on for last 5 days. COPD exacerbation Patient presented with shortness of breath and cough for [address] chest on admission shows bilateral advanced emphysema. Also found to have 1.6 cm spiculated nodule in left upper lobe anterior segment, unchanged from prior scan. Continue on budesonide and formoterol nebulization Decrease solumedrol to twice a day. Continue [id number] DuoNeb Started on azithromycin for 3 days I discussed patient to follow-up with her primary care doctor and obtain referral for pulmonology for long-term management of COPD and evaluation of the lung nodule. Patient verbalized understanding. Chest pain Likely pleuritic; increases with cough. High since troponin is negative Echo shows EF of 55-60%, LV wall motion normal. Diarrhea CT abdomen pelvis does not show acute finding C. difficile negative Monitor History of hypotension On midodrine, continue History of CAD status post stent Bare-metal stents x 1 RCA 2010 On beta-lynne and aspirin and Repatha Chronic systolic and diastolic CHF Moderate mitral regurgitation EF 35 to 39% echo done on 07/28/2023 ef 60-65% on echo 09/19/24 On metoprolol succinate, Jardiance and Entresto Monitor for volume overload Hypotension On midodrine, continue GERD On omeprazole, continue Hyperlipidemia On Repatha, on hold while inpatient Hypothyroidism On Synthyroid, continue Depression and anxiety On Paxil and Ativan as needed DVT prophylaxis Heparin subcu Disposition Med/telemetry Full code. Please note the above document was generated using voice recognition software. It may contain grammatical, syntax or spelling errors. Any formal questions or concerns about the content, text or information contained within the body of this dictation should be directly addressed to the provider for clarification Admission and Anticipated Discharge Date Admission Date: October 13, 2024 Subjective Patient seen and examined at bedside. Comfortable; not in distress. Denies fever, chills, chest pain, shortness of breath, abdominal pain or urinary symptoms. No significant overnight events Review of Systems Review of Systems: All systems reviewed & are unremarkable except as noted in Subjective Physical Exam Physical Exam: General- Not in distress Head- atraumatic Eyes- PERRL. ENT- oropharynx clear Neck- supple, no JVD. Lungs- b/l clear breath sounds Heart- regular rate and rhythm; no murmur, no gallop. Abdomen- normal bowel sounds, soft, nontender, no distension Extremities- no pretibial edema, no erythema seen Neuro- alert, oriented ; PERRL, no facial palsy; no dysarthria; moves extremities. Results & Data Results & Data Vital Signs (Past 12 Hours) Vital Signs Temp Pulse Pulse Pulse Pulse Resp Resp 10/14/24 11:54 10/14/24 11:03 36.8 C 18 10/14/24 10:12 83 67 18 10/14/24 10:11 83 18 10/14/24 07:30 72 18 10/14/24 07:28 64 10/14/24 07:15 36.8 C 74 18 10/14/24 02:32 36.8 C 68 19 Resp BP Pulse Ox Pulse Ox Pulse Ox O2 Del Method O2 Flow Rate 10/14/24 11:54 132/76 10/14/24 11:03 88/53 L 93 Room Air 10/14/24 10:12 18 91 94 10/14/24 10:11 91 Room Air 10/14/24 07:30 93 Room Air 10/14/24 07:28 10/14/24 07:15 100/70 92 Nasal Cannula 2 10/14/24 02:32 140/80 98 Nasal Cannula 2
--- NOTE | 2024-10-14 15:06 | Electrocardiogram Report ---
Test Reason : Blood Pressure : */* mmHG Vent. Rate : 73 BPM Atrial Rate : 73 BPM P-R Int : 136 ms QRS Dur : 96 ms QT Int : 414 ms P-R-T Axes : 88 81 78 degrees QTcB Int : 456 ms Normal sinus rhythm Normal ECG When compared with ECG of 12-Oct-2024 21:49, Premature ventricular complexes are no longer Present Confirmed by Tyrese aJckson ([id number]) on 10/14/2024 3:05:59 PM Referred By: REFERRED SELF Confirmed By: Tyrese Jackson
[2024-10-14] MEDS: oxyCODONE HCL IR 5 MG TAB (IMMEDIATE RELEASE) PO STA (20:45)
--- NOTE | 2024-10-15 07:23 | Electrocardiogram Report ---
Test Reason : Blood Pressure : */* mmHG Vent. Rate : 74 BPM Atrial Rate : 74 BPM P-R Int : 142 ms QRS Dur : 92 ms QT Int : 390 ms P-R-T Axes : 86 73 53 degrees QTcB Int : 432 ms Normal sinus rhythm Incomplete right bundle branch block Borderline ECG When compared with ECG of 14-Oct-2024 05:26, No significant change was found Confirmed by Jesus Garzon ([id number]) on 10/15/2024 7:23:06 AM Referred By: REFERRED SELF Confirmed By: Jesus Garzon
[2024-10-15 07:45] VITALS: BP 120/81; TEMP 98.6; O2SAT 95
--- NOTE | 2024-10-15 09:39 | Discharge Summary ---
Date of Service October 15, 2024 Admission HPI Per Admitting Provider 59-year-old female with past med history significant for chronic respiratory failure on 2 L oxygen, COPD, hypothyroidism, hyperlipidemia, lung nodules, history of CAD status post stent, chronic combined systolic and diastolic CHF, CKD stage III, cerebellar hemangioma, hypertension, moderate mitral regurgitation, irritable bowel syndrome with constipation, gastroparesis, sicca syndrome, diverticulosis, degenerative disease, reflux sympathetic dystrophy, depression, generalized anxiety disorder, PTSD, statin intolerance, presents with shortness of breath and cough going on for last 5 days. Patient states last 5 days she is feeling weak and not able to get up from the bed. She thinks she also missed her medications. Having dry cough. Denies any fevers. She also has chest pain which is more with coughing. Says she weaned off her oxygen in the recent past but since last 5 days she has put back on oxygen as she is feeling short of breath. Feeling nauseous. Not able to eat anything. Having diarrhea 4-5 times daily. Denies any blood in the stools. Not micturating much. Denies any abdominal pain. Denies any headache. Vision is okay. Has runny nose. Denies sore throat. Hemodynamics are okay. She was recently in the hospital for COPD exacerbation and also seen by cardiology for chest pain. During last admission Entresto was held because of hypotension supposed to follow-up with the PCP and cardiology. Patient says Entresto was restarted but was holding it and also metoprolol for last few days as her BP was dropping per patient. Past medical history. As mentioned above. Past surgical history. . Colonoscopy. Conization of cervix. EGD. EGD with biopsy. Injection of lumbosacral spine. Diagnostic laparoscopy. Ligation of oviducts. Tonsillectomy. Excision of left wrist ganglion. Repair of incisional hernia. Thoracotomy with repair of lung in 1988 and 1990 secondary to pneumothorax. Social history. . Smokes half pack a day for 45 years. Alcohol rarely. No drug use. Social history. Paternal grandfather had cancer. Aunt had colon cancer. Father had heart attack. Stroke. Mother had rheumatoid arthritis. Sister had stroke. Sister has diabetes. Brother has hypertension, diabetes. Admission Exam Per Admitting Provider General- Not in distress Head- atraumatic Eyes- PERRL. ENT- oropharynx clear Neck- supple, no JVD. Lungs- clear to auscultation b/l, mild b/l rhonchi, no wheezing or crackles. Heart- regular rate and rhythm; no murmur, no gallop. Abdomen- normal bowel sounds, soft, nontender, no distension Extremities- no pretibial edema, no erythema seen Neuro- alert, oriented ; PERRL, no facial palsy; no dysarthria; moves extremities. Principal Diagnosis COPD exacerbation Discharge Exam General- Not in distress Head- atraumatic Eyes- PERRL. ENT- oropharynx clear Neck- supple, no JVD. Lungs- b/l clear breath sounds Heart- regular rate and rhythm; no murmur, no gallop. Abdomen- normal bowel sounds, soft, nontender, no distension Extremities- no pretibial edema, no erythema seen Neuro- alert, oriented ; PERRL, no facial palsy; no dysarthria; moves extremities. Discharge Data Allergies Allergy/AdvReac Type Severity Reaction Status Date / Time tramadol Allergy Severe Seizure Verified 10/13/24 00:02 adhesive Allergy Mild BANDAIDS : Verified 10/13/24 00:02 SKIN ABRASION ketorolac [From Toradol] Allergy Mild HX KIDNEY Verified 10/13/24 00:02 FAILURE adhesive tape Allergy Unknown SKIN TEARS Verified 10/13/24 00:02 ibuprofen Allergy Unknown HX KIDNEY Verified 10/13/24 00:02 FAILURE NSAIDS (Non-Steroidal Allergy Unknown HX KIDNEY Verified 10/13/24 00:02 Anti-Inflamma FAILURE Sulfa (Sulfonamide Allergy Unknown HIVES Verified 10/13/24 00:02 Antibiotics) meperidine AdvReac Unknown NOT A Verified 10/13/24 00:02 VERIFIED RXN: MOOD SWINGS prednisone AdvReac Unknown Patient Verified 10/13/24 00:02 Reports Contraindication in Kidney Failure/SEE NOTES rosuvastatin [From Crestor] AdvReac Unknown Weakness, Verified 10/13/24 00:02 RHABDOMYLOSIS, ACUTE RENAL FAILURE Consultations 10/12/24 23:07 ED Decision to Admit Stat Ordered Studies 10/13/24 04:48 CT Abd and Pelvis [CT abd pelvis wo con] Routine CT chest diagnostic wo con Routine Hospital Course (1) COPD exacerbation: 59-year-old female with past med history significant for chronic respiratory failure on 2 L oxygen, COPD, hypothyroidism, hyperlipidemia, lung nodules, history of CAD status post stent, chronic combined systolic and diastolic CHF, CKD stage III, cerebellar hemangioma, hypertension, moderate mitral regurgitation, irritable bowel syndrome with constipation, gastroparesis, sicca syndrome, diverticulosis, degenerative disease, reflux sympathetic dystrophy, depression, generalized anxiety disorder, PTSD, statin intolerance, presents with shortness of breath and cough going on for last 5 days. COPD exacerbation Patient presented with shortness of breath and cough for [address] chest on admission shows bilateral advanced emphysema. Also found to have 1.6 cm spiculated nodule in left upper lobe anterior segment, unchanged from prior scan. During the hospitalization, patient was treated with [id number] DuoNeb, IV steroids, azithromycin with significant improvement in her shortness of breath. She was saturating well on room air at the time of the discharge. She underwent two-step oxygen evaluation; did not require supplemental oxygen. Discussed with patient regarding possible trial of oral steroids; but she refused as she reported history of intolerance in the past. I also discussed patient regarding CT chest finding multiple times during the hospitalization. I discussed the importance of follow-up with PCP/pulmonology for workup of the lung nodule seen in the left upper lobe. Patient verbalizes understanding. Patient was discharged home with her . Please note the above document was generated using voice recognition software. It may contain grammatical, syntax or spelling errors. Any formal questions or concerns about the content, text or information contained within the body of this dictation should be directly addressed to the provider for clarification Total Time Total Time Spent Total Time Spent (In Minutes): 45 Total Time Includes: Examination of the Patient, Discharge Planning, Medication Reconciliation, Communication With Other Providers and Other Discharge Plan Discharge Items Patient Disposition: Home - Self-Care Reason For Visit: COPD EXACERBATION,PNEUMONIA,DIARRHEA Discharge Diagnosis: COPD exacerbation Condition on Discharge: Good Activity: Resume your previous activity Non-emergency contact: Primary Care Provider Call non-emergency contact if: you have any medication questions and your symptoms worsen Follow-up/Referrals: Ludy Jacobs CRNP [Primary Care Provider] - 10/18/24 8:40 am (Date & Time 10/18/2024 8:40 AM Provider Ludy Jacobs CRNP Department [facility] ) Sony Duong MD [Outside Practitioners] - 10/24/24 3:40 pm (Date & Time 10/24/2024 3:40 PM Provider Sony Duong MD Department Pulmonary Medicine, [facility] ) Diet: Regular Addtl Attending Provider Instructions: You were admitted to the hospital due to COPD exacerbation. You are treated with antibiotics, steroids and breathing treatments. Please follow-up with your lung doctor regarding long-term management of COPD. As we have discussed, there is 1.6 cm spiculated nodule in the left upper lobe anterior segment. Please discuss with your primary care doctor regarding further evaluation with referral to pulmonology/possible PET/CT. Pending Studies at Discharge: No Stand-Alone Forms: My [facility] [employer], Smoking Cessation Medications and DC Order Prescriptions: Continued aspirin 81 mg Tablet,Delayed Release (Dr/Ec) 81 mg PO QAM levothyroxine [Synthroid] 75 mcg tablet 75 mcg PO DAILYBB Rx Instructions: SYNTHROID BRAND SPECIFIC lorazepam 0.5 mg tablet 0.5 mg PO DAILY PRN (Reason: Anxiety) omeprazole 20 mg capsule,delayed release(DR/EC) 20 mg PO BID folic acid 1 mg Tablet 1 mg PO QAM albuterol sulfate 90 mcg/actuation HFA aerosol inhaler 2 puff INHALATION Q4H PRN (Reason: cough,SOB or wheezing) pregabalin 75 mg capsule 75 mg PO TID Rx Instructions: morning,noon and bedtime methocarbamol 500 mg tablet 500 mg PO QID PRN (Reason: muscle spasms) ondansetron HCl 4 mg tablet 4 mg PO Q8 PRN (Reason: Nausea) acetaminophen 325 mg Tablet 650 mg PO Q6H PRN (Reason: Fever Or Pain) albuterol sulfate 2.5 mg /3 mL (0.083 %) solution for nebulization 2.5 mg continuous nebulization QID PRN (Reason: Wheezing) paroxetine HCl [Paxil] 40 mg Tablet 40 mg PO HS Entresto 24-26 mg Tablet 1 tab PO BID Hold Instructions: Held due to low blood pressure. 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.to be every 2 weeks metoprolol succinate 50 mg tablet extended release 24 hr 50 mg PO UD Rx Instructions: take 50mg in morning and 25mg at bedtime. Discharge Orders: Discharge Order (Routine); Ordered 10/15/24 Ordered By: Marcell Becker Admission Data Admit Date/Time: 10/13/24 03:48 Attending Provider: Marcell Becker Admit Provider: Micky Owens Primary Care Provider: Ludy Jacobs Other Providers: Micky Owens Other Interventions: Discharge Summary Assessment (RN) Last Done: 10/15/24 11:21
[2024-10-15] MEDS: oxyCODONE HCL IR 5 MG TAB (IMMEDIATE RELEASE) PO STA (10:43)
[2024-10-15 11:01] VITALS: PULSE 88; RESP 17
== END 2024-10-15 14:00 | disposition home or self-care (01) | DRG 191 ==
LOC: ED 21:38 → 2S 10-13 03:48

== ENCOUNTER 2024-11-10 19:55 | Inpatient (IN) ==
[2024-11-10 20:43] LABS: Basophils # (auto) 0.04 K/uL (0.00-0.20); Basophils % (auto) 0.5 %; Eosinophils # (auto) 0.14 K/uL (0.00-0.50); Eosinophils % (auto) 1.9 %; Hematocrit (blood only) 39.7 % (37.0-47.0); Hemoglobin 13.4 g/dl (12.0-16.0); Immature Granulocytes # (auto) 0.02 K/uL (0.01-0.20); Immature Granulocytes % (auto) 0.3 %; Lymphocytes # (auto) 2.88 K/uL (1.20-3.40); Lymphocytes % (auto) 38.6 %; Mean Corpuscular Hemoglobin 32.3 pg (25.0-34.0); Mean Corpuscular Hgb Conc 33.8 g/dL (32.0-36.0); Mean Corpuscular Volume 95.7 fL (80.0-100.0); Mean Platelet Volume 9.4 fL (9.4-12.4); Monocytes # (auto) 0.58 K/uL (0.11-0.59); Monocytes % (auto) 7.8 %; Neutrophils % (auto) 50.9 %; Platelet Count 321 K/uL (130-400); RDW Coefficient of Variation 12.4 % (11.5-14.5); Red Blood Count 4.15 M/uL (4.20-5.40); White Blood Count 7.46 K/ul (4.8-10.8)
[2024-11-10 21:01] LABS: Albumin Globulin Ratio 1.6 (0.9-2); Albumin Level 4.4 gm/dl (3.4-5.0); Bilirubin,Total 0.7 mg/dl (0.2-1.0); Calcium 9.8 mg/dl (8.6-10.3); Globulin 2.7 gm/dl (2.5-4.0); Magnesium 1.7 mg/dl (1.7-2.4); Potassium 3.7 mmol/L (3.5-5.1); Total Protein 7.1 gm/dl (6.0-8.3)
[2024-11-10 21:08] LABS: Troponin I High Sensitivity 7.6 pg/ml (0-14)
[2024-11-10 21:12] LABS: Prothrombin Time 11.2 Seconds (9.0-12.0)
[2024-11-10 21:25] LABS: Base Excess VBG 5.6 mEq/L; HCO3 VBG 30 mmol/L; Oxygen Saturation VBG 94.6 %; PCO2 VBG 41 mmHg (38-50); PO2 VBG 67 mmHg; pH VBG 7.47 (7.36-7.41)
[2024-11-10 21:34] LABS: Adenovirus PCR Not Detected (NotDetected); Bordetella parapertussis PCR Not Detected (NotDetected); Bordetella pertussis PCR Not Detected (NotDetected); Chlamydia pneumoniae PCR Not Detected (NotDetected); Coronavirus 229E PCR Not Detected (NotDetected); Coronavirus CoV-2 (COVID19)PCR Not Detected (NotDetected); Coronavirus HKU1 PCR Not Detected (NotDetected); Coronavirus NL63 PCR Not Detected (NotDetected); Coronavirus OC43PCR Not Detected (NotDetected); Human Metapneumovirus PCR Not Detected (NotDetected); Influenza A PCR Not Detected (NotDetected); Influenza B PCR Not Detected (NotDetected); Mycoplasma pneumoniae PCR Not Detected (NotDetected); Parainfluenza Virus 1 PCR Not Detected (NotDetected); Parainfluenza Virus 2 PCR Not Detected (NotDetected); Parainfluenza Virus 3 PCR Not Detected (NotDetected); Parainfluenza Virus 4 PCR Not Detected (NotDetected); Respiratory Syncytial VirusPCR Not Detected (NotDetected); Rhinovirus/Enterovirus PCR Not Detected (NotDetected)
[2024-11-10] MEDS: ALBUT/IPRATROP 3MG/0.5MG NEB 3 ML VIAL NEB STA (21:57)
[2024-11-10] MEDS: ALBUTEROL 0.5% NEB SOLN 2.5 MG/0.5 ML VIAL NEB STA (22:45)
--- NOTE | 2024-11-11 00:27 | XRay Report ---
Exam(s): XR CXR 1 VIEW EXAM: XR Chest, 1 View CLINICAL HISTORY: Reason for exam: Dyspnea. TECHNIQUE: Frontal view of the chest. COMPARISON: Prior CT Chest . FINDINGS: Lungs: Advanced centrilobular emphysematous changes with bulla formation. Mild to moderate peribronchial thickening of the central lower lobe bronchi. No consolidation. Pleural space: Pleural parenchymal scar in the lung apices with small metallic suture line at the left lung apex. No pneumothorax. Heart: Unremarkable. No cardiomegaly. Mediastinum: Unremarkable. Normal mediastinal contour. Bones/joints: Unremarkable. No acute fracture. IMPRESSION: Findings concerning for bronchitis, which may be of infectious or inflammatory etiologies. No consolidation or pleural effusion. Advanced centrilobular emphysematous changes with bulla formation. Electronically signed by: Olga Lidia Moy MD 11/11/24 00:26 AM
--- NOTE | 2024-11-11 00:37 | Emergency Department Note ---
Impression & Plan COPD exacerbation, Acute bronchitis, Acute metabolic encephalopathy ED Provider Note NAME: ANISHA KINGSLEY AGE: 59 SEX: F : 1965 ARRIVES VIA: Ambulance INFORMANT: Patient, ED PROVIDER(S): Vasquez Chamberlain MD CHIEF COMPLAINT: Shortness of breath HPI: This is a 59-year-old female presenting for shortness of breath 3. History of emphysema and states is very pretty similar. She notes that he also has CHF but does not have any leg swelling orthopnea. She notes she feels very wheezy. She notes no recent fever or chills. She notes she feels very tired but has no cough, congestion. No pleurisy. ROS: See above HPI for pertinent positives & negatives. A total of 10 systems reviewed and were otherwise negative. PAST MEDICAL HISTORY: See Below PAST SURGICAL HISTORY: See Below FAMILY HISTORY: See Below SOCIAL HISTORY: See Below HOME MEDICATIONS: See Below ALLERGIES: See Below VITALS: See Below PHYSICAL EXAMINATION: General: resting comfortably in no acute distress Head: Normocephalic and atraumatic Eyes: Normal inspection, extraocular muscles intact Ear, nose, throat: Normal external exam Neck: Normal range of motion Respiratory: Diminished lung sounds, faint wheeze Cardiovascular: Regular rate/rhythm, no murmur GI: soft, nontender, no guarding or rebound Extremities: nontender, moves all extremities Neuro: The patient awake and alert, appropriately conversive, no focal deficits, symmetric faces Skin: Warm, dry, and intact MEDICAL DECISION MAKING: This is a 59-year-old female presenting for shortness of breath. With history of COPD observations, suspect similar. Will check for pneumonia, URI, low concern for acute PE as she is not hypoxic, to having chest pain or pleurisy. -Patient is tachycardic into the 120s at this time. -No hypoxia, no hypoxia with ambulation as well but does get significantly dyspneic -Bloodwork is reviewed showing no significant leukocytosis, anemia, electrolyte or creatinine abnormality. Troponin and BNP are also negative at this time making ACS and PE unlikely. Upper respiratory panel negative -Patient notes improved after first DuoNeb. Will continue albuterol -Chest Xray independently interpreted by me showing no pneumothorax, focal opacity, or pleural effusions. -X-ray reveals findings concerning for bronchitis as per radiology -After second albuterol, decreased patient still tachycardic, dyspneic. Required admission for CT preservation. Patient is an allergy to prednisone it appears. -Care discussed Dr. Owens for admission Differential diagnosis: COPD exacerbation, pneumonia, PE, ACS Diagnostics interpreted by me: ECG: None Cardiac Monitoring: An order was placed for continuous cardiac monitoring. The monitor shows a rate of 131 with sinus] rhythm. Past Med/Surg History Problem List (Updated 11/11/24 @ 01:47 by Vasquez Chamberlain MD) Chronic heart failure with preserved ejection fraction COPD exacerbation (Acute) Asthma exacerbation in COPD (Acute) Acute metabolic encephalopathy (Acute) Left lower lobe pneumonia Encounter for pre-operative examination Acute on chronic heart failure with reduced ejection fraction and diastolic dysfunction CKD (chronic kidney disease), stage III (Acute) Acute on chronic respiratory failure with hypoxia DVT prophylaxis Pulmonary nodule Pericardial effusion Hypotension Bacteremia Prolonged QT interval Hypertension Diarrhea (Acute) Lab test negative for COVID-19 virus (Acute) Nausea & vomiting (Acute) Colitis (Acute) Acute dehydration (Acute) Electrolyte abnormality Hypomagnesemia (Acute) Nausea and vomiting (Acute) Hypokalemia (Acute) Generalized abdominal pain (Acute) Pericardial effusion Left ventricular systolic dysfunction UNRULY (acute kidney injury) Chronic pericarditis with effusion UTI (urinary tract infection) Acute respiratory failure with hypercapnia Acute exacerbation of chronic obstructive pulmonary disease (Acute) Acute respiratory distress (Acute) Influenza A (Acute) Hypotension Volume overload Acute respiratory failure with hypoxia Anxiety Depression Electrolyte abnormality Transaminitis DVT prophylaxis COPD (chronic obstructive pulmonary disease) (Acute) HLD (hyperlipidemia) Rhabdomyolysis Acute renal failure Pulmonary nodule Nausea (Acute) Hypokalemia (Acute) COPD exacerbation (Acute) Wrist pain, right (Acute) Seizure (Acute) Influenza A (Acute) Hypoxia (Acute) Hypokalemia (Acute) Hypokalemia (Acute) Hypokalemia (Acute) COPD exacerbation (Acute) COPD exacerbation (Acute) Bronchitis (Acute) Asthma exacerbation in COPD (Acute) Acute bronchitis (Acute) Acute bronchitis (Acute) Cellulitis (Acute) CAD (coronary artery disease) Hypothyroidism HFrEF (heart failure with reduced ejection fraction) hx Medical History Emphysema/COPD daily nebulizer, and prn neb and inh; f/u pulmonology at [facility] and [place] 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 History of colitis Decreased mobility lt arm>CRPS PTSD (post-traumatic stress disorder) Unique anesthetic considerations on preoperative anesthesia assessment high level anxiety when sedated, hx intubation w Flu A....PTSD, "gets scared when put to sleep" History of colon polyps Low blood pressure currently on midodrine; f/u s cardio at and [place] History of influenza INFLUENZA A, February 2022 - [facility] hospitalization, "intubated while in the hospital" Pain syndrome, chronic chronic regional pain syndrome : left arm/received lidocaine injections in [place]/every three months/due may 2023. left limb restriction. History of renal failure "from her crestor medication" Oxygen dependent 2 L o2 continuous. Emphysema lung Statin intolerance Chronic pain see pain clinic for lt arm and neck, @[facility] Anxiety Shortness of breath chronic Neurofibromatosis Hypokalemia HX / CAN NOT TOLERATE PO POTASSIUM PILLS DUE TO GASTROPARESIS Hx of bronchitis Myocardial infarction 2010 - CHEST PAIN -[facility] ER AND HAD HEART CATH WITH ONE STENT (BARE METAL) FOLLOW WITH [facility] CARDIO Seizure 2013 ONLY HAD ONE -- ADMITTED TO [facility] --- METABOLIC RELATED ---- NO MEDICATION Pneumothorax AGE 24 - SURGERY TO REPAIR THE LEFT SIDE AND CHEMICAL TREATMENT ON THE RIGHT SIDE AT [place] Gastroparesis Cavernous hemangioma of brain stable Surgical History Hx of right cataract extraction History of heart artery stent 2010, [facility], x1 stent; f/u s cardio at History of endoscopy Hx of colonoscopy Hx of vaginal surgery 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 Hx of section X2 Hx of cardiac cath 2010, [facility], x1 stent; f/u s cardio at History of hernia repair UMBILICAL Family History Father Lung disease Severe emphysema, pneumothorax Brother Family history of diabetes mellitus Brother Family history of diabetes mellitus Family/Other Family history of cancer Aunt Family history of colonic polyps Grandfather Family history of lymphoma Social History Smoking Status: Current every day smoker Tobacco Type: Cigarettes Age Started Using Tobacco: 11; Age Quit Using Tobacco: 53; packs per day: 1; Cigarettes Per Day: has 1 occasionally; Second Hand Exposure: Yes; Do You Dip or Chew Tobacco: No; Hx Alcohol Use: No Hx Substance Use: No Preferred Language: Setswana Communication Ability: Effective 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 Required: No Beliefs That Will Affect Care: None marital status: Current Living Situation: Spouse How many Children do You have: 3 Feels Safe at Home: Yes Assistive Devices: Nebulizer, Oxygen - at Night, Walker and Wheelchair Allergies Allergies Allergy/AdvReac Type Severity Reaction Status Date / Time tramadol Allergy Severe Seizure Verified 10/13/24 00:02 adhesive Allergy Mild BANDAIDS : Verified 10/13/24 00:02 SKIN ABRASION ketorolac [From Toradol] Allergy Mild HX KIDNEY Verified 10/13/24 00:02 FAILURE adhesive tape Allergy Unknown SKIN TEARS Verified 10/13/24 00:02 ibuprofen Allergy Unknown HX KIDNEY Verified 10/13/24 00:02 FAILURE NSAIDS (Non-Steroidal Allergy Unknown HX KIDNEY Verified 10/13/24 00:02 Anti-Inflamma FAILURE Sulfa (Sulfonamide Allergy Unknown HIVES Verified 10/13/24 00:02 Antibiotics) meperidine AdvReac Unknown NOT A Verified 10/13/24 00:02 VERIFIED RXN: MOOD SWINGS prednisone AdvReac Unknown Patient Verified 10/13/24 00:02 Reports Contraindication in Kidney Failure/SEE NOTES rosuvastatin [From Crestor] AdvReac Unknown Weakness, Verified 10/13/24 00:02 RHABDOMYLOSIS, ACUTE RENAL FAILURE Home Meds Home Medications Medication Instructions Recorded Confirmed albuterol sulfate 90 mcg/actuation 2 puff inhalation Q4H PRN 11/11/24 11/11/24 aerosol inhaler Shortness Of Breath Or Wheezing aspirin 81 mg tablet,delayed 81 mg PO DAILY 11/11/24 11/11/24 release empagliflozin 10 mg tablet 10 mg PO DAILY 11/11/24 11/11/24 (Jardiance) evolocumab 140 mg/mL subcutaneous 140 mg subcut UD 11/11/24 11/11/24 pen injector (Reyes Muro) fluticasone 250 mcg-salmeterol 50 1 inh inhalation BID 11/11/24 11/11/24 mcg/dose blistr powdr for inhalation folic acid 1 mg tablet 1 mg PO DAILY 11/11/24 11/11/24 ipratropium 0.5 mg-albuterol 3 mg 3 ml inhalation QID PRN Shortness 11/11/24 11/11/24 (2.5 mg base)/3 mL nebulization Of Breath Or Wheezing soln levothyroxine 75 mcg tablet 75 mcg PO DAILY 11/11/24 11/11/24 (Synthroid) lorazepam 0.5 mg tablet 0.5 mg PO DAILY PRN Anxiety 11/11/24 11/11/24 methocarbamol 500 mg tablet 500 mg PO QID PRN muscle spasms 11/11/24 11/11/24 metoprolol succinate 50 mg 50 mg PO UD 11/11/24 11/11/24 tablet,extended release 24 hr midodrine 5 mg tablet 5 mg PO UD 11/11/24 11/11/24 omeprazole 20 mg capsule,delayed 20 mg PO DAILY 11/11/24 11/11/24 release ondansetron HCl 4 mg tablet 4 mg PO TID PRN Nausea And Vomiting 11/11/24 11/11/24 oxycodone 5 mg tablet 5 mg PO Q4H PRN Pain, Severe 11/11/24 11/11/24 paroxetine HCl 40 mg tablet 40 mg PO HS 11/11/24 11/11/24 pregabalin 75 mg capsule 75 mg PO TID 11/11/24 11/11/24 sacubitril 24 mg-valsartan 26 mg 1 tab PO BID 11/11/24 11/11/24 tablet (Entresto) Results & Data (ED) Vital Signs Vital Signs - 24 hr 11/10/24 19:57 11/10/24 20:00 11/10/24 20:09 Temperature 36.8 C Temperature Source Oral Pulse Rate 112 H 116 H Pulse Rate [Right Finger] Pulse Rate from SpO2 Sensor Pulse Rhythm Pulse Rhythm [Right Finger] Pulse Strength [Right Finger] Respiratory Rate 18 Respiratory Effort / Characteristics Non-Labored Spontaneous Non-Labored Spontaneous Respiratory Depth Normal Normal Respiratory Pattern Regular Regular Blood Pressure 142/116 H Blood Pressure [Right Arm] Blood Pressure Mean 124 Blood Pressure Mean [Right Arm] Blood Pressure Position Sitting Pulse Oximetry 98 Oxygen Delivery Method Room Air Room Air Sepsis Recent Fever Within 48 Hours No Sepsis New/Unexplained Change in Mental Status N/A Sepsis Action Taken by Nursing No Action Required 11/10/24 20:09 11/10/24 20:13 11/10/24 20:30 Temperature Temperature Source Pulse Rate 112 H 114 H Pulse Rate [Right Finger] Pulse Rate from SpO2 Sensor 114 H Pulse Rhythm Regular Pulse Rhythm [Right Finger] Pulse Strength [Right Finger] Respiratory Rate 18 19 Respiratory Effort / Characteristics Respiratory Depth Respiratory Pattern Blood Pressure 127/97 Blood Pressure [Right Arm] Blood Pressure Mean 120 Blood Pressure Mean [Right Arm] Blood Pressure Position Pulse Oximetry 98 97 Oxygen Delivery Method Room Air Room Air Sepsis Recent Fever Within 48 Hours Sepsis New/Unexplained Change in Mental Status Sepsis Action Taken by Nursing 11/10/24 20:30 11/10/24 21:30 11/10/24 22:00 Temperature Temperature Source Pulse Rate 115 H 120 H 120 H Pulse Rate [Right Finger] Pulse Rate from SpO2 Sensor 114 H 121 H 119 H Pulse Rhythm Pulse Rhythm [Right Finger] Pulse Strength [Right Finger] Respiratory Rate 25 H 24 18 Respiratory Effort / Characteristics Respiratory Depth Respiratory Pattern Blood Pressure 127/97 165/105 H 128/108 H Blood Pressure [Right Arm] Blood Pressure Mean 120 124 114 Blood Pressure Mean [Right Arm] Blood Pressure Position Pulse Oximetry 97 97 100 Oxygen Delivery Method Sepsis Recent Fever Within 48 Hours Sepsis New/Unexplained Change in Mental Status Sepsis Action Taken by Nursing 11/10/24 22:30 11/10/24 23:00 11/10/24 23:57 Temperature Temperature Source Pulse Rate 117 H 132 H Pulse Rate [Right Finger] Pulse Rate from SpO2 Sensor 117 H 119 H Pulse Rhythm Pulse Rhythm [Right Finger] Pulse Strength [Right Finger] Respiratory Rate 17 20 Respiratory Effort / Characteristics Respiratory Depth Respiratory Pattern Blood Pressure 128/94 120/92 Blood Pressure [Right Arm] Blood Pressure Mean 105 109 Blood Pressure Mean [Right Arm] Blood Pressure Position Pulse Oximetry 98 100 Oxygen Delivery Method Sepsis Recent Fever Within 48 Hours Sepsis New/Unexplained Change in Mental Status Sepsis Action Taken by Nursing 11/11/24 00:01 11/11/24 01:30 Temperature Temperature Source Pulse Rate 131 H Pulse Rate [Right Finger] 128 H Pulse Rate from SpO2 Sensor 127 H Pulse Rhythm Pulse Rhythm [Right Finger] Regular Pulse Strength [Right Finger] Normal Respiratory Rate 24 22 Respiratory Effort / Characteristics Non-Labored Spontaneous Respiratory Depth Normal Respiratory Pattern Regular Blood Pressure 129/91 Blood Pressure [Right Arm] 114/81 Blood Pressure Mean 114 Blood Pressure Mean [Right Arm] 92 Blood Pressure Position Pulse Oximetry 97 98 Oxygen Delivery Method Room Air Sepsis Recent Fever Within 48 Hours Sepsis New/Unexplained Change in Mental Status Sepsis Action Taken by Nursing Laboratory Data 11/10/24 20:25 11/10/24 20:25 Lab Results 11/10/24 11/10/24 Range/Units 20:25 21:11 WBC 7.46 (4.8-10.8) K/ul RBC 4.15 L (4.20-5.40) M/uL Hgb 13.4 (12.0-16.0) g/dl Hct 39.7 (37.0-47.0) % MCV 95.7 (80.0-100.0) fL MCH 32.3 (25.0-34.0) pg MCHC 33.8 (32.0-36.0) g/dL RDW Std Deviation 44.0 (36.4-46.3) fL RDW Coeff of Akiko 12.4 (11.5-14.5) % Plt Count 321 (130-400) K/uL MPV 9.4 (9.4-12.4) fL Immature Gran % (Auto) 0.3 % Neut % (Auto) 50.9 % Lymph % (Auto) 38.6 % Sterling % (Auto) 7.8 % Eos % (Auto) 1.9 % Baso % (Auto) 0.5 % Neut # (Auto) 3.80 (1.40-6.50) K/uL Lymph # (Auto) 2.88 (1.20-3.40) K/uL Sterling # (Auto) 0.58 (0.11-0.59) K/uL Eos # (Auto) 0.14 (0.00-0.50) K/uL Baso # (Auto) 0.04 (0.00-0.20) K/uL Immature Gran # (Auto) 0.02 (0.01-0.20) K/uL PT 11.2 (9.0-12.0) Seconds INR 1.0 (0.9-1.1) VBG pH 7.47 H (7.36-7.41) VBG pCO2 41 (38-50) mmHg VBG pO2 67 mmHg VBG HCO3 30 mmol/L VBG O2 Saturation 94.6 % VBG Base Excess 5.6 mEq/L Sodium 142 (136-145) mmol/L Potassium 3.7 (3.5-5.1) mmol/L Chloride 104 (98-107) mmol/L Carbon Dioxide 30 (21-32) mmol/L Anion Gap 8 (3-11) BUN 14 (6-23) mg/dl Creatinine 1.17 (0.6-1.2) mg/dl Est Cr Clr Drug Dosing 46.0 ml/min eGFR 53.42 BUN/Creatinine Ratio 12.0 (10-20) Glucose 118 H (70-99(Fasting)) mg/dl Calcium 9.8 (8.6-10.3) mg/dl Magnesium 1.7 (1.7-2.4) mg/dl Total Bilirubin 0.7 (0.2-1.0) mg/dl AST 28 (13-39) U/L ALT 18 (7-52) U/L Alkaline Phosphatase 55 (34-104) U/L Troponin I High Sens 7.6 (0-14) pg/ml B-Natriuretic Peptide 40 (0-100) pg/ml Total Protein 7.1 (6.0-8.3) gm/dl Albumin 4.4 (3.4-5.0) gm/dl Globulin 2.7 (2.5-4.0) gm/dl Albumin/Globulin Ratio 1.6 (0.9-2) Adenovirus (PCR) Not Detected (NotDetected) B. pertussis DNA (PCR) Not Detected (NotDetected) B.parapertussis DNA PCR Not Detected (NotDetected) C. pneumoniae DNA (PCR) Not Detected (NotDetected) Coronavirus OC43 (PCR) Not Detected (NotDetected) Coronavirus HKU1 (PCR) Not Detected (NotDetected) Coronavirus 229E (PCR) Not Detected (NotDetected) SARS-CoV-2 (PCR) Not Detected (NotDetected) Coronavirus NL63 (PCR) Not Detected (NotDetected) Human Metapneumovir PCR Not Detected (NotDetected) Influenza Type A (PCR) Not Detected (NotDetected) Influenza Type B (PCR) Not Detected (NotDetected) M. pneumoniae (PCR) Not Detected (NotDetected) Parainfluenza 1 (PCR) Not Detected (NotDetected) Parainfluenza 2 (PCR) Not Detected (NotDetected) Parainfluenza 3 (PCR) Not Detected (NotDetected) Parainfluenza 4 (PCR) Not Detected (NotDetected) RSV (PCR) Not Detected (NotDetected) Entero/Rhino (PCR) Not Detected (NotDetected) Administered Medications Discontinued Medications Albuterol (Albut/Ipratrop 3mg/0.5mg Neb 3 Ml Vial) 3 ml NEB NOW STA; Protocol Stop: 11/10/24 21:49 Last Admin: 11/10/24 21:57 Dose: 3 ml Documented By: CLAUDINE Albuterol (Albuterol 0.5% Neb Soln 2.5 Mg/0.5 Ml Vial) 2.5 mg NEB NOW STA; Protocol Stop: 11/10/24 22:32 Last Admin: 11/10/24 22:45 Dose: 2.5 mg Documented By: CLAUDINE Methylprednisolone (Methylprednisolone 125 Mg/2 Ml Vial) 40 mg IV NOW STA Stop: 11/11/24 01:23 Last Admin: 11/11/24 01:29 Dose: 40 mg Documented By: CLAUDINE Oxycodone HCl (Oxycodone Hcl Ir 5 Mg Tab (Immediate Release)) 5 mg PO NOW STA Stop: 11/11/24 00:58 Last Admin: 11/11/24 01:28 Dose: 5 mg Documented By: CLAUDINE Imaging Data Radiologist's Impression: Chest X-Ray 11/10/24 20:12 Exam(s): XR CXR 1 VIEW EXAM: XR Chest, 1 View CLINICAL HISTORY: Reason for exam: Dyspnea. TECHNIQUE: Frontal view of the chest. COMPARISON: Prior CT Chest . FINDINGS: Lungs: Advanced centrilobular emphysematous changes with bulla formation. Mild to moderate peribronchial thickening of the central lower lobe bronchi. No consolidation. Pleural space: Pleural parenchymal scar in the lung apices with small metallic suture line at the left lung apex. No pneumothorax. Heart: Unremarkable. No cardiomegaly. Mediastinum: Unremarkable. Normal mediastinal contour. Bones/joints: Unremarkable. No acute fracture. IMPRESSION: Findings concerning for bronchitis, which may be of infectious or inflammatory etiologies. No consolidation or pleural effusion. Advanced centrilobular emphysematous changes with bulla formation. Electronically signed by: Olga Lidia Moy MD 11/11/24 00:26 AM Discharge Plan Visit Data Chief Complaint: Shortness of Breath/Dyspnea Stated Complaint: SOB ED Provider: Vasquez Chamberlain Discharge Problem: COPD exacerbation, Acute bronchitis, Acute metabolic encephalopathy Forms Stand Alone Forms: My [facility] Prescriptions Prescriptions: No Action methocarbamol 500 mg tablet 500 mg PO QID PRN (Reason: muscle spasms) fluticasone propion-salmeterol 250-50 mcg/dose blister with device 1 inh INHALATION BID ipratropium-albuterol 0.5 mg-3 mg(2.5 mg base)/3 mL solution for nebulization 3 ml INHALATION QID PRN (Reason: Shortness Of Breath Or Wheezing) metoprolol succinate 50 mg tablet extended release 24 hr 50 mg PO UD Rx Instructions: 50mg in am and 25mg q hs ondansetron HCl 4 mg tablet 4 mg PO TID PRN (Reason: Nausea And Vomiting) midodrine 5 mg tablet 5 mg PO UD Rx Instructions: 5mg PO TID at 8AM, NOON AND 5PM aspirin [Aspir-81] 81 mg Tablet,Delayed Release (Dr/Ec) 81 mg PO DAILY levothyroxine [Synthroid] 75 mcg tablet 75 mcg PO DAILY lorazepam 0.5 mg tablet 0.5 mg PO DAILY PRN (Reason: Anxiety) omeprazole 20 mg capsule,delayed release(DR/EC) 20 mg PO DAILY folic acid 1 mg tablet 1 mg PO DAILY albuterol sulfate 90 mcg/actuation HFA aerosol inhaler 2 puff INHALATION Q4H PRN (Reason: Shortness Of Breath Or Wheezing) paroxetine HCl 40 mg tablet 40 mg PO HS oxycodone 5 mg tablet 5 mg PO Q4H PRN (Reason: Pain, Severe) pregabalin 75 mg capsule 75 mg PO TID Jardiance 10 mg tablet 10 mg PO DAILY sacubitril-valsartan [Entresto] 24-26 mg tablet 1 tab PO BID Repatha SureClick 140 mg/mL pen injector 140 mg SUBCUT UD Rx Instructions: every 2 weeks Referrals Referrals: Ludy Jacobs CRNP [Primary Care Provider] -
--- NOTE | 2024-11-11 01:14 | History & Physical Report ---
Date of Service November 11, 2024 Assessment & Plan (1) COPD exacerbation: Plan: 59-year-old female with past med history significant for chronic respiratory failure using oxygen as needed 2 L, COPD, hypothyroidism, hyperlipidemia, lung nodules, history of CAD status post stent, chronic combined systolic and diastolic CHF, CKD stage III, cerebellar hemangioma, hypertension, moderate mitral regurgitation, irritable bowel syndrome with constipation, gastroparesis, sicca syndrome, diverticulosis, degenerative disease, reflux sympathetic dystrophy, depression, generalized anxiety disorder, PTSD, statin intolerance, presents with shortness of breath and cough going on for last few days. She is coughing and bringing up phlegm yellow-green color. Walking short distance making her short of breath. Denies any fevers. No chest pain. No nausea or vomiting. No abdominal pain. Normal bowel and bladder movements. Appetite is down. No difficulty swallowing. Vision is okay. Has some runny eyes. No runny nose or sore throat. Complaining of pain in lower extremities which she says is chronic. Hemodynamics are okay currently. Patient was admitted last last month for COPD exacerbation. After discharge she had appointments to follow-up with PCP and pulmonary but she did not followed up. COPD exacerbation Recurrent No leukocytosis VBG is okay Chest x-ray okay Respiratory BioFire okay Received nebs in the ER We will continue with IV Solu-Medrol, nebs [id number] and as needed Continue home inhalers Monitoring telemetry Will check procalcitonin Close monitor History of hypotension On midodrine History of CAD status post stent Bare-metal stents x 1 RCA 2010 On beta-lynne and aspirin and Repatha History of right cerebellar cavernoma High risk of bleeding to avoid antiplatelet/anticoagulation as per cardiology notes As per cardiology notes it has been considered that patient is high risk of bleeding and possible if hemorrhage occurred and was deemed high risk to proceed with ischemic workup and potential need for dual antiplatelet therapy ,if cardiac cath was deemed necessary medical management recommended. Also plan for repeat MRI but seems not done yet Chronic systolic and diastolic CHF Moderate mitral regurgitation EF 35 to 39% echo done on 07/28/2023 ef 55-60% on echo 10/13/24 On metoprolol succinate, Jardiance and Entresto Monitor for volume overload GERD On omeprazole Hyperlipidemia On Repatha Hypothyroidism On Synthyroid Depression and anxiety On Paxil and Ativan as needed Lung nodule 1.6 cm spiculated nodule left upper lobe anterior segment on CAT scan done last admit in September 2024 which seemed unchanged from prior scan. Needs follow-up DVT prophylaxis Lovenox Disposition Med/telemetry Full code. History of Present Illness Chief Complaint: Shortness of breath Primary Care Provider: ALIYAH Goldman 59-year-old female with past med history significant for chronic respiratory failure using oxygen as needed 2 L, COPD, hypothyroidism, hyperlipidemia, lung nodules, history of CAD status post stent, chronic combined systolic and diastolic CHF, CKD stage III, cerebellar hemangioma, hypertension, moderate mitral regurgitation, irritable bowel syndrome with constipation, gastroparesis, sicca syndrome, diverticulosis, degenerative disease, reflux sympathetic dystrophy, depression, generalized anxiety disorder, PTSD, statin intolerance, presents with shortness of breath and cough going on for last few days. She is coughing and bringing up phlegm yellow-green color. Walking short distance making her short of breath. Denies any fevers. No chest pain. No nausea or vomiting. No abdominal pain. Normal bowel and bladder movements. Appetite is down. No difficulty swallowing. Vision is okay. Has some runny eyes. No runny nose or sore throat. Complaining of pain in lower extremities which she says is chronic. Hemodynamics are okay currently. Patient was admitted last last month for COPD exacerbation. After discharge she had appointments to follow-up with PCP and pulmonary but she did not followed up. Past medical history. As mentioned above. Past surgical history. . Colonoscopy. Conization of cervix. EGD. EGD with biopsy. Injection of lumbosacral spine. Diagnostic laparoscopy. Ligation of oviducts. Tonsillectomy. Excision of left wrist ganglion. Repair of incisional hernia. Thoracotomy with repair of lung in 1988 and 1990 secondary to pneumothorax. Social history. . Smokes half pack a day for 45 years. Alcohol rarely. No drug use. Social history. Paternal grandfather had cancer. Aunt had colon cancer. Father had heart attack. Stroke. Mother had rheumatoid arthritis. Sister had stroke. Sister has diabetes. Brother has hypertension, diabetes. Allergies Allergy/AdvReac Type Severity Reaction Status Date / Time tramadol Allergy Severe Seizure Verified 10/13/24 00:02 adhesive Allergy Mild BANDAIDS : Verified 10/13/24 00:02 SKIN ABRASION ketorolac [From Toradol] Allergy Mild HX KIDNEY Verified 10/13/24 00:02 FAILURE adhesive tape Allergy Unknown SKIN TEARS Verified 10/13/24 00:02 ibuprofen Allergy Unknown HX KIDNEY Verified 10/13/24 00:02 FAILURE NSAIDS (Non-Steroidal Allergy Unknown HX KIDNEY Verified 10/13/24 00:02 Anti-Inflamma FAILURE Sulfa (Sulfonamide Allergy Unknown HIVES Verified 10/13/24 00:02 Antibiotics) meperidine AdvReac Unknown NOT A Verified 10/13/24 00:02 VERIFIED RXN: MOOD SWINGS prednisone AdvReac Unknown Patient Verified 10/13/24 00:02 Reports Contraindication in Kidney Failure/SEE NOTES rosuvastatin [From Crestor] AdvReac Unknown Weakness, Verified 10/13/24 00:02 RHABDOMYLOSIS, ACUTE RENAL FAILURE Home Medications Medication Instructions Recorded Confirmed Type albuterol sulfate 90 mcg/actuation 2 puff inhalation Q4H PRN 11/11/24 11/11/24 History aerosol inhaler Shortness Of Breath Or Wheezing aspirin 81 mg tablet,delayed 81 mg PO DAILY 11/11/24 11/11/24 History release empagliflozin 10 mg tablet 10 mg PO DAILY 11/11/24 11/11/24 History (Jardiance) evolocumab 140 mg/mL subcutaneous 140 mg subcut UD 11/11/24 11/11/24 History pen injector (Reyes Muro) fluticasone 250 mcg-salmeterol 50 1 inh inhalation BID 11/11/24 11/11/24 History mcg/dose blistr powdr for inhalation folic acid 1 mg tablet 1 mg PO DAILY 11/11/24 11/11/24 History ipratropium 0.5 mg-albuterol 3 mg 3 ml inhalation QID PRN Shortness 11/11/24 11/11/24 History (2.5 mg base)/3 mL nebulization Of Breath Or Wheezing soln levothyroxine 75 mcg tablet 75 mcg PO DAILY 11/11/24 11/11/24 History (Synthroid) lorazepam 0.5 mg tablet 0.5 mg PO DAILY PRN Anxiety 11/11/24 11/11/24 History methocarbamol 500 mg tablet 500 mg PO QID PRN muscle spasms 11/11/24 11/11/24 History metoprolol succinate 50 mg 50 mg PO UD 11/11/24 11/11/24 History tablet,extended release 24 hr midodrine 5 mg tablet 5 mg PO UD 11/11/24 11/11/24 History omeprazole 20 mg capsule,delayed 20 mg PO DAILY 11/11/24 11/11/24 History release ondansetron HCl 4 mg tablet 4 mg PO TID PRN Nausea And Vomiting 11/11/24 11/11/24 History oxycodone 5 mg tablet 5 mg PO Q4H PRN Pain, Severe 11/11/24 11/11/24 History paroxetine HCl 40 mg tablet 40 mg PO HS 11/11/24 11/11/24 History pregabalin 75 mg capsule 75 mg PO TID 11/11/24 11/11/24 History sacubitril 24 mg-valsartan 26 mg 1 tab PO BID 11/11/24 11/11/24 History tablet (Entresto) Past Med/Surg History Problem List (Updated 11/11/24 @ 01:47 by Vasquez Chamberlain MD) Chronic heart failure with preserved ejection fraction COPD exacerbation (Acute) Asthma exacerbation in COPD (Acute) Acute metabolic encephalopathy (Acute) Left lower lobe pneumonia Encounter for pre-operative examination Acute on chronic heart failure with reduced ejection fraction and diastolic dysfunction CKD (chronic kidney disease), stage III (Acute) Acute on chronic respiratory failure with hypoxia DVT prophylaxis Pulmonary nodule Pericardial effusion Hypotension Bacteremia Prolonged QT interval Hypertension Diarrhea (Acute) Lab test negative for COVID-19 virus (Acute) Nausea & vomiting (Acute) Colitis (Acute) Acute dehydration (Acute) Electrolyte abnormality Hypomagnesemia (Acute) Nausea and vomiting (Acute) Hypokalemia (Acute) Generalized abdominal pain (Acute) Pericardial effusion Left ventricular systolic dysfunction UNRULY (acute kidney injury) Chronic pericarditis with effusion UTI (urinary tract infection) Acute respiratory failure with hypercapnia Acute exacerbation of chronic obstructive pulmonary disease (Acute) Acute respiratory distress (Acute) Influenza A (Acute) Hypotension Volume overload Acute respiratory failure with hypoxia Anxiety Depression Electrolyte abnormality Transaminitis DVT prophylaxis COPD (chronic obstructive pulmonary disease) (Acute) HLD (hyperlipidemia) Rhabdomyolysis Acute renal failure Pulmonary nodule Nausea (Acute) Hypokalemia (Acute) COPD exacerbation (Acute) Wrist pain, right (Acute) Seizure (Acute) Influenza A (Acute) Hypoxia (Acute) Hypokalemia (Acute) Hypokalemia (Acute) Hypokalemia (Acute) COPD exacerbation (Acute) COPD exacerbation (Acute) Bronchitis (Acute) Asthma exacerbation in COPD (Acute) Acute bronchitis (Acute) Acute bronchitis (Acute) Cellulitis (Acute) CAD (coronary artery disease) Hypothyroidism HFrEF (heart failure with reduced ejection fraction) hx Medical History Emphysema/COPD daily nebulizer, and prn neb and inh; f/u pulmonology at [facility] and [place] 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 History of colitis Decreased mobility lt arm>CRPS PTSD (post-traumatic stress disorder) Unique anesthetic considerations on preoperative anesthesia assessment high level anxiety when sedated, hx intubation w Flu A....PTSD, "gets scared when put to sleep" History of colon polyps Low blood pressure currently on midodrine; f/u [facility] cardio at and [place] History of influenza INFLUENZA A, February 2022 - [facility] hospitalization, "intubated while in the hospital" Pain syndrome, chronic chronic regional pain syndrome : left arm/received lidocaine injections in [place]/every three months/due may 2023. left limb restriction. History of renal failure "from her crestor medication" Oxygen dependent 2 L o2 continuous. Emphysema lung Statin intolerance Chronic pain see pain clinic for lt arm and neck, [facility] Anxiety Shortness of breath chronic Neurofibromatosis Hypokalemia HX / CAN NOT TOLERATE PO POTASSIUM PILLS DUE TO GASTROPARESIS Hx of bronchitis Myocardial infarction 2010 - CHEST PAIN -[facility] ER AND HAD HEART CATH WITH ONE STENT (BARE METAL) FOLLOW WITH [facility] CARDIO Seizure 2013 ONLY HAD ONE -- ADMITTED TO [facility] --- METABOLIC RELATED ---- NO MEDICATION Pneumothorax AGE 24 - SURGERY TO REPAIR THE LEFT SIDE AND CHEMICAL TREATMENT ON THE RIGHT SIDE AT [place] Gastroparesis Cavernous hemangioma of brain stable Surgical History Hx of right cataract extraction History of heart artery stent 2010, [place], [facility], x1 stent; f/u [facility] cardio at History of endoscopy Hx of colonoscopy Hx of vaginal surgery 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 Hx of section X2 Hx of cardiac cath 2010, [place], [facility], x1 stent; f/u [facility] cardio at History of hernia repair UMBILICAL Family History Father Lung disease Severe emphysema, pneumothorax Brother Family history of diabetes mellitus Brother Family history of diabetes mellitus Family/Other Family history of cancer Aunt Family history of colonic polyps Grandfather Family history of lymphoma Social History Smoking Status: Current every day smoker Tobacco Type: Cigarettes Age Started Using Tobacco: 11; Age Quit Using Tobacco: 53; packs per day: 1; Cigarettes Per Day: has 1 occasionally; Second Hand Exposure: Yes; Do You Dip or Chew Tobacco: No; Hx Alcohol Use: Yes Alcohol type: beer, wine and hard liquor Hx Substance Use: Yes Last Used Substance: Days (ago) Last Used Substance Other:: daily-"just a few hits a day" Preferred Language: [place] Communication Ability: Effective Survey Research Analyst Required: No Beliefs That Will Affect Care: None marital status: Current Living Situation: Spouse Current Living Situation Comment: C/ , daughter How many Children do You have: 3 Other Information That Helps Us Care for You: No Feels Safe at Home: Yes Safety Concerns: Feels Safe At This Time Assistive Devices: Nebulizer, Oxygen - at Night, Walker and Wheelchair Review of Systems Review of Systems: All systems reviewed & are unremarkable except as noted in HPI & below Physical Exam Physical Exam: General- Not in acute distress Head- atraumatic Eyes- PERRL, EOMI, anicteric ENT- oropharynx clear Neck- supple, no JVD. Lungs- diminished bilateral breath sounds, mild occasional wheezing Heart- regular rate and rhythm; no murmur, no gallop. Abdomen- normal bowel sounds, soft, nontender, no distension Extremities- no pretibial edema, no erythema seen Neuro- alert, oriented PERRL, no facial palsy; no dysarthria; moves extremities Results & Data Results & Data Vital Signs (Past 12 Hours) Vital Signs Temp Pulse Resp BP Pulse Ox O2 Del Method 11/11/24 00:01 131 H 24 129/91 97 11/10/24 23:57 132 H 11/10/24 23:00 20 120/92 100 11/10/24 22:30 117 H 17 128/94 98 11/10/24 22:00 120 H 18 128/108 H 100 11/10/24 21:30 120 H 24 165/105 H 97 11/10/24 20:30 115 H 25 H 127/97 97 11/10/24 20:30 114 H 19 127/97 97 11/10/24 20:13 112 H 18 98 Room Air 11/10/24 20:09 Room Air 11/10/24 20:09 Room Air 11/10/24 20:00 116 H 11/10/24 19:57 36.8 C 112 H 18 142/116 H 98 Room Air Diagnostic Findings Laboratory Results WBC 7.46 K/ul (4.8-10.8) 11/10/24 20:25 RBC 4.15 M/uL (4.20-5.40) L 11/10/24 20:25 Hgb 13.4 g/dl (12.0-16.0) 11/10/24 20:25 Hct 39.7 % (37.0-47.0) 11/10/24 20:25 MCV 95.7 fL (80.0-100.0) 11/10/24 20:25 MCH 32.3 pg (25.0-34.0) 11/10/24 20:25 MCHC 33.8 g/dL (32.0-36.0) 11/10/24 20:25 RDW Std Deviation 44.0 fL (36.4-46.3) 11/10/24 20:25 RDW Coeff of Akiko 12.4 % (11.5-14.5) 11/10/24 20:25 Plt Count 321 K/uL (130-400) 11/10/24 20:25 MPV 9.4 fL (9.4-12.4) 11/10/24 20:25 Immature Gran % (Auto) 0.3 % 11/10/24 20:25 Neut % (Auto) 50.9 % 11/10/24 20:25 Lymph % (Auto) 38.6 % 11/10/24 20:25 [place] % (Auto) 7.8 % 11/10/24 20:25 Eos % (Auto) 1.9 % 11/10/24 20:25 Baso % (Auto) 0.5 % 11/10/24 20:25 Neut # (Auto) 3.80 K/uL (1.40-6.50) 11/10/24 20:25 Lymph # (Auto) 2.88 K/uL (1.20-3.40) 11/10/24 20:25 [place] # (Auto) 0.58 K/uL (0.11-0.59) 11/10/24 20:25 Eos # (Auto) 0.14 K/uL (0.00-0.50) 11/10/24 20:25 Baso # (Auto) 0.04 K/uL (0.00-0.20) 11/10/24 20:25 Immature Gran # (Auto) 0.02 K/uL (0.01-0.20) 11/10/24 20:25 PT 11.2 Seconds (9.0-12.0) 11/10/24 20:25 INR 1.0 (0.9-1.1) 11/10/24 20:25 VBG pH 7.47 (7.36-7.41) H 11/10/24 21:11 VBG pCO2 41 mmHg (38-50) 11/10/24 21:11 VBG pO2 67 mmHg 11/10/24 21:11 VBG HCO3 30 mmol/L 11/10/24 21:11 VBG O2 Saturation 94.6 % 11/10/24 21:11 VBG Base Excess 5.6 mEq/L 11/10/24 21:11 Sodium 142 mmol/L (136-145) 11/10/24 20:25 Potassium 3.7 mmol/L (3.5-5.1) 11/10/24 20:25 Chloride 104 mmol/L (98-107) 11/10/24 20:25 Carbon Dioxide 30 mmol/L (21-32) 11/10/24 20:25 Anion Gap 8 (3-11) 11/10/24 20:25 BUN 14 mg/dl (6-23) 11/10/24 20:25 Creatinine 1.17 mg/dl (0.6-1.2) 11/10/24 20:25 Est Cr Clr Drug Dosing 46.0 ml/min 11/10/24 20:25 eGFR 53.42 11/10/24 20:25 BUN/Creatinine Ratio 12.0 (10-20) 11/10/24 20:25 Glucose 118 mg/dl (70-99(Fasting)) H 11/10/24 20:25 Calcium 9.8 mg/dl (8.6-10.3) 11/10/24 20: Magnesium 1.7 mg/dl (1.7-2.4) 11/10/24 20:25 Total Bilirubin 0.7 mg/dl (0.2-1.0) 11/10/24 20:25 AST 28 U/L (13-39) 11/10/24 20:25 ALT 18 U/L (7-52) 11/10/24 20:25 Alkaline Phosphatase 55 U/L (34-104) 11/10/24 20:25 Troponin I High Sens 7.6 pg/ml (0-14) 11/10/24 20:25 B-Natriuretic Peptide 40 pg/ml (0-100) 11/10/24 20:25 Total Protein 7.1 gm/dl (6.0-8.3) 11/10/24 20:25 Albumin 4.4 gm/dl (3.4-5.0) 11/10/24 20:25 Globulin 2.7 gm/dl (2.5-4.0) 11/10/24 20:25 Albumin/Globulin Ratio 1.6 (0.9-2) 11/10/24 20:25 Adenovirus (PCR) Not Detected (NotDetected) 11/10/24 20:25 B. pertussis DNA (PCR) Not Detected (NotDetected) 11/10/24 20:25 B.parapertussis DNA PCR Not Detected (NotDetected) 11/10/24 20:25 C. pneumoniae DNA (PCR) Not Detected (NotDetected) 11/10/24 20:25 Coronavirus OC43 (PCR) Not Detected (NotDetected) 11/10/24 20:25 Coronavirus HKU1 (PCR) Not Detected (NotDetected) 11/10/24 20:25 Coronavirus 229E (PCR) Not Detected (NotDetected) 11/10/24 20:25 SARS-CoV-2 (PCR) Not Detected (NotDetected) 11/10/24 20:25 Coronavirus NL63 (PCR) Not Detected (NotDetected) 11/10/24 20:25 Human Metapneumovir PCR Not Detected (NotDetected) 11/10/24 20:25 Influenza Type A (PCR) Not Detected (NotDetected) 11/10/24 20:25 Influenza Type B (PCR) Not Detected (NotDetected) 11/10/24 20:25 M. pneumoniae (PCR) Not Detected (NotDetected) 11/10/24 20:25 Parainfluenza 1 (PCR) Not Detected (NotDetected) 11/10/24 20:25 Parainfluenza 2 (PCR) Not Detected (NotDetected) 11/10/24 20:25 Parainfluenza 3 (PCR) Not Detected (NotDetected) 11/10/24 20:25 Parainfluenza 4 (PCR) Not Detected (NotDetected) 11/10/24 20:25 RSV (PCR) Not Detected (NotDetected) 11/10/24 20:25 Entero/Rhino (PCR) Not Detected (NotDetected) 11/10/24 20:25 Impressions Chest X-Ray 11/10/24 20:12 Exam(s): XR CXR 1 VIEW EXAM: XR Chest, 1 View CLINICAL HISTORY: Reason for exam: Dyspnea. TECHNIQUE: Frontal view of the chest. COMPARISON: Prior CT Chest . FINDINGS: Lungs: Advanced centrilobular emphysematous changes with bulla formation. Mild to moderate peribronchial thickening of the central lower lobe bronchi. No consolidation. Pleural space: Pleural parenchymal scar in the lung apices with small metallic suture line at the left lung apex. No pneumothorax. Heart: Unremarkable. No cardiomegaly. Mediastinum: Unremarkable. Normal mediastinal contour. Bones/joints: Unremarkable. No acute fracture. IMPRESSION: Findings concerning for bronchitis, which may be of infectious or inflammatory etiologies. No consolidation or pleural effusion. Advanced centrilobular emphysematous changes with bulla formation. Electronically signed by: Olga Lidia Moy MD 11/11/24 00:26 AM ECG Additional Comments: ECG. Sinus tachycardia with occasional PVCs with rate of 108. Right atrial enlargement. Nonspecific T wave abnormality in lateral leads Code Status & VTE Plan VTE Prophylaxis Plan VTE Prophylaxis will be ordered: Yes
[2024-11-11] MEDS: oxyCODONE HCL IR 5 MG TAB (IMMEDIATE RELEASE) PO STA (01:28)
[2024-11-11] MEDS: methylPREDNISolone 125 MG/2 ML VIAL IV STA (01:29)
[2024-11-11] MEDS ORDERED: POLYETHYLENE (MIRALAX) 17 GM PACK PO PRN (03:21)
[2024-11-11] MEDS ORDERED: ACETAMINOPHEN 325 MG TAB PO PRN (03:21)
[2024-11-11] MEDS ORDERED: NITROGLYCERIN SL 0.4 MG/TAB TAB SL PRN (03:21)
[2024-11-11] MEDS ORDERED: oxyCODONE HCL IR 5 MG TAB (IMMEDIATE RELEASE) PO PRN (03:21)
[2024-11-11] MEDS ORDERED: LEVALBUTEROL 1.25 MG/3 ML NEB NEB PRN (03:21)
[2024-11-11] MEDS ORDERED: ALBUTEROL HFA 8 GM INHALER INH PRN (03:21)
[2024-11-11] MEDS: LEVALBUTEROL 1.25 MG/3 ML NEB NEB SCH (06:53)
[2024-11-11] MEDS: LEVOTHYROXINE SODIUM 75 MCG TABLET PO SCH (07:02)
[2024-11-11 08:30] LABS: BUN Creatinine Ratio 12.2 (10-20); Calcium 9.3 mg/dl (8.6-10.3); Creatinine Clr Calc Pharmacy 46.8 ml/min; Magnesium 1.4 mg/dl (1.7-2.4); Potassium 3.6 mmol/L (3.5-5.1)
[2024-11-11 08:32] LABS: Basophils # (auto) 0.01 K/uL (0.00-0.20); Basophils % (auto) 0.2 %; Eosinophils # (auto) 0.03 K/uL (0.00-0.50); Eosinophils % (auto) 0.6 %; Hematocrit (blood only) 36.4 % (37.0-47.0); Hemoglobin 12.2 g/dl (12.0-16.0); Immature Granulocytes # (auto) 0.03 K/uL (0.01-0.20); Immature Granulocytes % (auto) 0.6 %; Lymphocytes # (auto) 0.78 K/uL (1.20-3.40); Lymphocytes % (auto) 15.1 %; Mean Corpuscular Hemoglobin 32.2 pg (25.0-34.0); Mean Corpuscular Hgb Conc 33.5 g/dL (32.0-36.0); Mean Platelet Volume 9.8 fL (9.4-12.4); Monocytes # (auto) 0.06 K/uL (0.11-0.59); Monocytes % (auto) 1.2 %; Neutrophils # (auto) 4.25 K/uL (1.40-6.50); Neutrophils % (auto) 82.3 %; Platelet Count 284 K/uL (130-400); RDW Coefficient of Variation 12.6 % (11.5-14.5); RDW Standard Deviation 44.4 fL (36.4-46.3); Red Blood Count 3.79 M/uL (4.20-5.40); White Blood Count 5.16 K/ul (4.8-10.8)
[2024-11-11] MEDS: methylPREDNISolone 40 MG in SYRINGE 0 ML IV SCH (08:45)
[2024-11-11] MEDS: FLUTICASONE/VILANTEROL 200/25MCG 14 PUFFS/INHALER INH SCH (08:45)
[2024-11-11] MEDS: FOLIC ACID 1 MG TAB PO SCH (08:46)
[2024-11-11] MEDS: PREGABALIN 75 MG CAP PO SCH (08:46)
[2024-11-11] MEDS: ENOXAPARIN INJ 40 MG/0.4 ML SYR SQ SCH (08:46)
[2024-11-11] MEDS: ASPIRIN 81 MG ECTAB PO SCH (08:46)
[2024-11-11] MEDS: METOPROLOL SUCC 50MG EXT REL TAB PO SCH (08:46)
[2024-11-11] MEDS: VALSARTAN/SACUBITRIL 26/24MG TAB PO SCH (08:46)
[2024-11-11] MEDS: PANTOprazole 40 MG TAB PO SCH (08:46)
[2024-11-11] MEDS: MIDODRINE HCL 2.5 MG TAB PO SCH (08:46)
[2024-11-11] MEDS: EMPAGLIFLOZIN 10 MG TAB PO SCH (08:46)
[2024-11-11] MEDS ORDERED: methylPREDNISolone 125 MG/2 ML VIAL IV SCH (09:00)
[2024-11-11 09:35] LABS: Estimated Average Glucose 111 mg/dl; Hemoglobin A1C 5.5 % (4.5-5.6)
--- OUTSIDE RECORDS SUMMARY | 2024-11-11 09:49 | External Medical Summary | Summary of Care ---
Author Name Unknown Organization [facility] Address [address] [place] [address] Phone [phone] Care Team Providers Care Community Engagement Representative Name Role Phone Ludy Jacobs Zeina LY Primary Care Provider Encounter Details Date Type Department Care Team (Late st Contact Info) Description 11/08/2024 8:45 AM EST Scheduled Telephone Care Coordination and Integration [address] [place] [address] Lulu Umaña, Community [facility] V Belt Curer [address] [place] [address] Allergies Active Allergy Reactions Criticality Noted Date Comments Adhesive Tape 10/12/2019 Other reaction(s): BANDAIDS SKIN ABRASION Colchicine 05/08/2022 N/v/d Rosuvastatin 04/02/2021 Went into kidney failure Demerol 08/11/2012 Depression Ibuprofen 04/02/2021 Meperidine And Related 09/28/2002 depression Nsaids 04/02/2021 Sulfa Antibiotics Rash 07/09/2001 Ketorolac Tromethamine Medium 04/04/2021 documented as of this encounter (statuses as of 11/08/2024) Medications VALVED HOLDING CHAMBER DEVIIndications:CO PD with [...] COPD, group C, 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 ([facility]),Chronic hypoxemic respiratory failure (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),Chronic hypoxemic respiratory failure ([facility]) Use with nebulizer 1 Each 07/24/20 22 Active Syringe 25G X 1-1/2" 3 ML Use for intramuscular B12 injection 1 Each 10/02/20 22 Active Albuterol Sulfate (2.5 MG/3ML) 0.083% Inhalation Nebulization Solution (Proventil)Indicat ions:COPD, group D, 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 ([facility]) Inhale 1 Vial via nebulizer 4 [...] (HCC),HFrEF (heart failure with reduced ejection fraction) ([facility]) Take 1 Tablet by mouth in [...] Tablet Extended Release 24 Hour (toPROL XL)Indications:Old ND (myocardial infarction) TAKE 1 AND 1/2 TABLETS BY MOUTH EVERY MORNING 135 Tablet 04/07/20 24 Active Folic Acid 1 MG Oral [...] prior to injection. 6 mL 3 4 8:51 AM EST 05/04/20 24 Active PARoxetine HCl 40 MG [...] s:COPD, group C, 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 ([facility]) Inhale 2 Puffs by mouth every [...] INHALER 360 mL 5 10/06/20 24 Active Methocarbamol 500 MG Oral Tablet (Robamol)Indicatio ns:Chronic pain syndrome TAKE 1 TABLET BY MOUTH 4 TIMES A DAY (MORNING, NOON, EVENING, AND BEFORE BEDTIME) 120 Tablet 10/27/20 24 Active Hospital, Clinic, or Other Facility Administered Medication Ordered Dose Route Frequency Start Date End Date Status Albuterol Sulfate (Proventil) (2.5 MG/3ML) 0.083% inhalation solution 2.5 mgIndications:COPD, group D, 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 (HCC) 2.5 mg NEBULIZER ONCE PRN 04/28/2024 04/28/2025 Acti ve documented as of this encounter (statuses as of 11/08/2024) Active Problems Problem Noted Date Diagnosed Date [...] noted above Atherosclerotic heart diseas e of [place] coronary artery with other forms of angina [...] (05/30/2022 4:32 PM EDT): Appointment scheduled with [facility] pain clinic [place] 07/02. Statin intolerance 01/24/2022 Osteopenia 01/08/2022 LYNDON [...] use aero chamber. Test performed by Flex SOCIAL DIRECTOR CPFT Circadian rhythm sleep disorder 09/17/2018 Nocturnal hypoxemia due to emphysema 07/30/2018 Adjustment disorder with mixed anxiety and depre ssed mood 07/04/2018 TERMINATED MEDICATION USAGE AGREEMENT 06/03/2018 Dupuytren's contracture of left hand 02/01/2018 Mixed incontinence urge and stress (male)(female ) 03/20/2017 Vitamin D deficiency 03/03/2016 Overview (03/03/2016): March 2015 = 13. Took high dose replacement. Due to repeat. Coronary artery disease invo lving [place] coronary artery of [place] heart without angina pectoris 11/12/2015 Assessment & Plan (01/22/2023 12:36 PM EST): Stable no angina -continue ASA, metoprolol xl, repatha. Can't tolerate delgado d/t low bp Dyslipidemia, goal LDL below 70 11/12/2015 Sicca syndrome 12/29/2014 Acquired hypothyroidism 12/29/2014 Assessment & Plan (01/22/2023 12:45 PM EST): Continue synthroid Old ND (myocardial infarction) 11/01/2013 Assessment & Plan (05/30/2022 [...] as of this encounter (statuses as of 11/08/2024) Resolved Problems Problem Noted Date Diagnosed Date [...] use aero chamber. Test performed by Flex SOCIAL DIRECTOR CPFT Assessment & Plan (05/30/2022 4:27 PM [...] moderate 04/07/2012 10/05/2012 Overview (04/07/2012): PFT 03/2008 [facility] COPD, SEVERE 04/07/2012 05/04/2019 Overview: PER COPD PROTOCOL #24. PFT 03/2008 [facility] LAST PFT -06/07/12 Gastroesophageal reflux dise ase with esophagitis 04/30/2009 01/14/2022 Overview (05/15/2009): mild ADVANCE DIRECTIVE INFORMATION 12/02/2008 09/26/2024 Overview (12/02/2008): No, Advance Directive brochure offered , patient declined. COPD with emphysema 10/05/20 12 documented as of this encounter (statuses as of 11/08/2024) Immunizations Name Administration Dates Next Due COVID-19 mRNA, LNP-s, No Pre serve, 2-Dose Series ([employer]) 09/26/2022,11/18/2021,04/04/2021,02/28 COVID-19, MRNA-LNP, PF, 30 M CG/0.3 mL, 12 YRS AND ABOVE, IM ([facility]) 10/21/2023 Covid-19, Mrna, Lnp-s, Pf, B ivalent, 30 Mcg, IM, 12 yrs and above ([employer]) 09/26/2022 HEPATITIS B VACCINE, RECOMB, 20 MCG/ML, [...] 03/28/2021 5:37 AM Valentino Mcduffie RN * Are you blind or do [...] Date Author No 03/28/2021 5:37 AM EDT Valentino Child, BREE documented in this encounter Progress Notes * Lulu Umaña, Community [facility] V Belt Curer - 11/08/2024 10:54 AM EST Telemedicine visit: No Community [facility] V Belt Curer (DEVIN) documentation: CHW outbound call to [facility] Left detailed message to contact CHW, supplied phone number Lulu Leeroy [facility] Community Health Worker Call or Text- [phone] documented in this encounter Plan of Treatment Upcoming Encounters Date Type Department Care Team (Late st Contact Info) Description 11/08/2024 2:00 PM EST Telemedicine Cardiology [facility] [place] [address] [place] [address] [place] [address], Pharmacist Cardiology [facility] [address] [place] [address] Arrived 11/10/2024 2:20 PM EST Office Visit Family Practice [facility] [address] [place] [address] Ludy Jacobs CRNP [address] [place] [address] 11/15/2024 8:00 AM EST Scheduled Telephone Care Coordination and Integration [address] [place] [address] Lulu Umaña [facility] Curer [address] [place] [address] 02/13/2025 3:30 PM EDT Telemedicine Care at Home [address] [place] [address] Lulu Yee PA-C [address] [place] [address] Scheduled Procedures Name Priority Associated Diagnoses Date/Ti me COLONOSCOPY FLEXIBLE PROXIMAL DIAGNOSTIC Recall History of colon polyps Health Maintenance Due Date Last Done Comments Alpha-1 Antitrypsin 1982 HPV/Co-Test 1994 Cologuard 2009 Fecal Occult Blood Test 2009 Sigmoidoscopy 2009 Zoster Vaccines (2 of 2) 03/06/2021 01/09/2021 CKD PHOS USE SMARTSET 06995 03/29/2022 03/29/2021, 0 03/28/2021 Albumin/Creatinine Ratio 09/29/2023 09/29/2022, 05/0 03/2021 Mammogram 03/02/2024 03/02/2023, 02/21, 11/04/2016, Additional history exists COVID-19 Vaccine ( season) 2024 10/21/2023, 09/26/2022, 09/26/2022, Additional history exists Cervical Cancer Screening 12/04/2024 Pap Smear 12/04/2024 12/04/2021, 02/21, 03/03/2016, Additional history exists GFR 01/30/2025 08/02/2024, 06/0 04/2024, 04/05/2024, Additional history exists CKD HGB USE SMARTSET 17800 08/02/202508/02, 08/02/2024, 04/28/2024, Additional history exists O2 [...] Agents on File Name Relationship Healthcare Agent [facility] p Communication Lopez Santiago Spouse First Alternate Health Care Agent [place] Adult Child Health Care Agent Care Teams Community Engagement Representative Relationship Specialty Start Date End Date Ludy Jacobs CRNP [address] [place] [address] PCP - General Nurse Practitioner 04/20/24 documented as of this encounter
--- OUTSIDE RECORDS SUMMARY | 2024-11-11 09:50 | External Medical Summary | Summary of Care ---
Author Name Unknown Organization [facility] Address [address] [place] [address] Phone [phone] Care Team Providers Care Security Manager Name Role Phone Ludy Jacobs Zeina LY Primary Care Provider Encounter Details Date Type Department Care Team (Late st Contact Info) Description 10/25/2024 2:00 PM EST Scheduled Telephone Care Coordination and Integration [address] [place] [address] Lulu Umaña, Community Health Bulb Grower [address] [place] [address] Allergies Active Allergy Reactions Criticality Noted Date Comments Adhesive Tape 10/12/2019 Other reaction(s): BANDAIDS SKIN ABRASION Colchicine 05/08/2022 N/v/d Rosuvastatin 04/02/2021 Went into kidney failure Demerol 08/11/2012 Depression Ibuprofen 04/02/2021 Meperidine And Related 09/28/2002 depression Nsaids 04/02/2021 Sulfa Antibiotics Rash 07/09/2001 Ketorolac Tromethamine Medium 04/04/2021 documented as of this encounter (statuses as of 10/25/2024) Medications VALVED HOLDING CHAMBER DEVIIndications:CO PD with [...] COPD, group C, 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 ([facility]),Chronic hypoxemic respiratory failure ([facility]) Use with nebulized medications 1 Each 07/24/20 22 Active Full Kit Nebulizer SetIndications: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, group C, 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 ([facility]),Chronic hypoxemic respiratory failure ([facility]) Use with nebulizer 1 Each 07/24/20 22 Active Syringe 25G X 1-1/2" 3 ML Use for intramuscular B12 injection 1 Each 10/02/20 22 Active Albuterol Sulfate (2.5 MG/3ML) 0.083% Inhalation Nebulization Solution (Proventil)Indicat ions:COPD, group D, 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 ([facility]) Inhale 1 Vial via nebulizer 4 times [...] (HCC),HFrEF (heart failure with reduced ejection fraction) ([facility]) Take 1 Tablet by mouth in the [...] Tablet Extended Release 24 Hour (toPROL XL)Indications:Old SD (myocardial infarction) TAKE 1 AND 1/2 TABLETS [...] s:COPD, group C, 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 ([facility]) Inhale 2 Puffs by mouth every 4 [...] mgIndications:COPD, group D, 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 ([facility]) 2.5 mg NEBULIZER ONCE PRN 04/28/2024 04/28/2025 Acti ve documented as of this encounter (statuses as of 10/25/2024) Active Problems Problem Noted Date Diagnosed Date [...] noted above Atherosclerotic heart diseas e of [place] coronary artery with other forms of angina [...] (05/30/2022 4:32 PM EDT): Appointment scheduled with [facility] pain clinic [place] 07/02. Statin intolerance 01/24/2022 Osteopenia 01/08/2022 LYNDON [...] use aero chamber. 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 Took high dose replacement. Due to repeat. Coronary artery disease invo lving [place] coronary artery of [place] heart without angina pectoris 11/12/2015 Assessment & Plan (01/22/2023 12:36 PM EST): Stable no angina -continue ASA, metoprolol xl, repatha. Can't tolerate delgado d/t low bp Dyslipidemia, goal LDL below 70 11/12/2015 Sicca syndrome 12/29/2014 Acquired hypothyroidism 12/29/2014 Assessment & Plan (01/22/2023 12:45 PM EST): Continue synthroid Old SD (myocardial infarction) 11/01/2013 Assessment & Plan (05/30/2022 [...] as of this encounter (statuses as of 10/25/2024) Resolved Problems Problem Noted Date Diagnosed Date [...] use aero chamber. Test performed by Flex MERCHANDISING INTERNSHIP CPFT Assessment & Plan (05/30/2022 4:27 PM [...] moderate 04/07/2012 10/05/2012 Overview (04/07/2012): PFT 03/2008 [facility] [...] as of this encounter (statuses as of 10/25/2024) Immunizations Name Administration Dates Next Due COVID-19 mRNA, LNP-s, No Pre serve, 2-Dose Series ([employer]) 09/26/2022,11/18/2021,04/04/2021,02/28 COVID-19, MRNA-LNP, PF, 30 M CG/0.3 mL, 12 YRS AND ABOVE, IM ([facility]) 10/21/2023 Covid-19, Mrna, Lnp-s, Pf, B ivalent, 30 Mcg, IM, 12 yrs and above ([employer]) 09/26/2022 HEPATITIS B VACCINE, RECOMB, 20 MCG/ML, [...] documented in this encounter Progress Notes * Luul Umaña, Community [facility] Bulb Grower - 10/25/2024 3:42 PM EST Telemedicine visit: No Community Health Bulb Grower (DEVIN) documentation: CHW outbound call to patient per Tamika Carbajal RNCM Needs an appointment with Ludy , regarding test, have some questions Needs late appointments They told her in the hospital they want patient to have pet scan, they feel that she may have cancer, due to a nodule in the lung 1 cm Still is short of breath Cough is about the same Not a lot of mucus production Denies chest pain Feet feel tight when she looks at them they are not swollen Denies Swelling Lost Blood Pressure Cuff Pain in right leg, started awhile ago On patient went without oxygen, she climbed stairs , a little short of breath Wears oxygen to sleep Lulu Umaña [facility] Community Health Worker Call or Text- [phone] Lulu Umaña [facility] Community Health Worker Call or Text- [phone] documented in this encounter Plan of Treatment Upcoming Encounters Date Type Department Care Team (Late st Contact Info) Description 11/01/2024 11:00 AM EST Scheduled Telephone Care Coordination and Integration [address] [place] [address] Lulu Umaña [facility] Bulb Grower [address] [place] [address] 11/08/2024 8:45 AM EST Scheduled Telephone Care Coordination and Integration [address] [place] [address] Lulu Umaña [facility] Health Bulb Grower [address] [place] [address] 11/08/2024 2:00 PM EST Telemedicine Cardiology [facility] [place] [address] [place], [place] [id number] [facility], Pharmacist Cardiology [facility] [address] [place] [address] 11/10/2024 2:20 PM EST Office Visit Family Practice [facility] [address] [place] [address] Ludy Jacobs CRNP [address] [place] [address] 11/15/2024 8:00 AM EST Scheduled Telephone Care Coordination and Integration [address] [place] [address] Lulu Umaña, Community Health Bulb Grower [address] [place] [address] 02/13/2025 3:30 PM EDT Telemedicine Care at Home [address] [place] [address] Lulu Yee PA-C [address] [place] [address] Scheduled Procedures Name Priority Associated Diagnoses Date/Ti me COLONOSCOPY FLEXIBLE PROXIMAL DIAGNOSTIC Recall History of colon polyps Health Maintenance Due Date Last Done Comments Alpha-1 Antitrypsin 1982 HPV/Co-Test 1994 Cologuard 2009 Fecal Occult Blood Test 2009 Sigmoidoscopy 2009 Zoster Vaccines (2 of 2) 03/06/2021 01/09/2021 CKD PHOS USE SMARTSET 49605 03/29/2022 03/29/2021, 0 03/28/2021 Albumin/Creatinine Ratio 09/29/2023 09/29/2022, 05/0 03/2021 Mammogram 03/02/2024 03/02/2023, 02/21, 11/04/2016, Additional history exists COVID-19 Vaccine ( season) 2024 10/21/2023, 09/26/2022, 09/26/2022, Additional history exists Cervical Cancer Screening 12/04/2024 Pap Smear 12/04/2024 12/04/2021, 02/21, 03/03/2016, Additional history exists GFR 01/30/2025 08/02/2024, 06/0 04/2024, 04/05/2024, Additional history exists CKD HGB USE SMARTSET 50410 08/02/202508/02, 08/02/2024, 04/28/2024, Additional history exists O2 ASSESSMENT COMPLETED IN PAST YEAR FOR COPD 08/02/2025 08/02/2024 TSH 08/02/2025 08/02/2024, 06/0 04/2024, 03/06/2023, Additional history exists Depression Monitoring 09/27/2025 09/27/2024 Colonoscopy 04/30/2026 04/30/2023, 060 06/2023, 11/28/2019, Additional history exists Colorectal Cancer [...] Relationship Healthcare Agent Relationshi p Communication Lopez Santiago Spouse First Alternate Health Care Agent [place] Adult Child Health Care Agent Care Teams Security Manager Relationship Specialty Start Date End Date Ludy Jacobs CRNP [address] [address] PCP - General Nurse Practitioner 04/20/24 documented as of this encounter
--- OUTSIDE RECORDS SUMMARY | 2024-11-11 09:50 | External Medical Summary | Summary of Care ---
Author Name Unknown Organization [facility] Address [address] [place] [address] Phone [phone] Care Team Providers Care Clay Artisan Name Role Phone Ludy Jacobs Zeina LY Primary Care Provider Encounter Details Date Type Department Care Team (Late st Contact Info) Description 11/01/2024 11:00 AM EST Scheduled Telephone Care Coordination and Integration [address] [place] [address] Lulu Umaña, Community Health Ferry Boat Captain [address] [place] [address] Allergies Active Allergy Reactions Criticality Noted Date Comments Adhesive Tape 10/12/2019 Other reaction(s): BANDAIDS SKIN ABRASION Colchicine 05/08/2022 N/v/d Rosuvastatin 04/02/2021 Went into kidney failure Demerol 08/11/2012 Depression Ibuprofen 04/02/2021 Meperidine And Related 09/28/2002 depression Nsaids 04/02/2021 Sulfa Antibiotics Rash 07/09/2001 Ketorolac Tromethamine Medium 04/04/2021 documented as of this encounter (statuses as of 11/01/2024) Medications VALVED HOLDING CHAMBER DEVIIndications:CO PD with [...] COPD, group C, 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 ([facility]),Chronic hypoxemic respiratory failure ([facility]) Use with nebulized medications 1 Each 07/24/20 22 Active Full Kit Nebulizer SetIndications:CUSTOMER SUCCESS SPECIALIST D, group C, 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 ([facility]),Chronic hypoxemic respiratory failure ([facility]) Use with nebulizer 1 Each 07/24/20 22 Active Syringe 25G X 1-1/2" 3 ML Use for intramuscular B12 injection 1 Each 10/02/20 22 Active Albuterol Sulfate (2.5 MG/3ML) 0.083% Inhalation Nebulization Solution (Proventil)Indicat ions:COPD, group D, 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 ([facility]) Inhale 1 Vial via nebulizer 4 [...] (HCC),HFrEF (heart failure with reduced ejection fraction) ([facility]) Take 1 Tablet by mouth in [...] Tablet Extended Release 24 Hour (toPROL XL)Indications:Old CA (myocardial infarction) TAKE 1 AND 1/2 TABLETS [...] s:COPD, group C, 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 ([facility]) Inhale 2 Puffs by mouth every [...] as of this encounter (statuses as of 11/01/2024) Active Problems Problem Noted Date Diagnosed Date [...] noted above Atherosclerotic heart diseas e of [place] coronary artery with other forms of angina [...] (05/30/2022 4:32 PM EDT): Appointment scheduled with [facility] pain clinic [place] 07/02. Statin intolerance 01/24/2022 Osteopenia 01/08/2022 LYNDON [...] use aero chamber. 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 Took high dose replacement. Due to repeat. Coronary artery disease invo lving [place] coronary artery of [place] heart without angina pectoris 11/12/2015 Assessment & Plan (01/22/2023 12:36 PM EST): Stable no angina -continue ASA, metoprolol xl, repatha. Can't tolerate delgado d/t low bp Dyslipidemia, goal LDL below 70 11/12/2015 Sicca syndrome 12/29/2014 Acquired hypothyroidism 12/29/2014 Assessment & Plan (01/22/2023 12:45 PM EST): Continue synthroid Old CA (myocardial infarction) 11/01/2013 Assessment & Plan (05/30/2022 [...] as of this encounter (statuses as of 11/01/2024) Resolved Problems Problem Noted Date Diagnosed Date [...] use aero chamber. Test performed by Flex BRANNER MACHINE TENDER CPFT Assessment & Plan (05/30/2022 4:27 PM [...] 10/05/2012 Overview (04/07/2012): PFT 03/2008 [facility] COPD, SEVERE 04/07/2012 05/04/2019 Overview: PER COPD PROTOCOL #24. PFT 03/2008 [facility] LAST PFT -06/07/12 Gastroesophageal reflux dise ase with esophagitis 04/30/2009 01/14/2022 Overview (05/15/2009): mild ADVANCE DIRECTIVE INFORMATION 12/02/2008 09/26/2024 Overview (12/02/2008): No, Advance Directive brochure offered , patient declined. COPD with emphysema 10/05/20 12 documented as of this encounter (statuses as of 11/01/2024) Immunizations Name Administration Dates Next Due COVID-19 mRNA, LNP-s, No Pre serve, 2-Dose Series ([employer]) 09/26/2022,11/18/2021,04/04/2021,02/28 COVID-19, MRNA-LNP, PF, 30 M CG/0.3 mL, 12 YRS AND ABOVE, IM ([facility]) 10/21/2023 Covid-19, Mrna, Lnp-s, Pf, B ivalent, 30 Mcg, IM, 12 yrs and above ([employer]) 09/26/2022 HEPATITIS B VACCINE, RECOMB, 20 MCG/ML, [...] Progress Notes * Lulu Umaña, Community Health Ferry Boat Captain - 11/01/2024 12:55 PM EST Telemedicine visit: No Community Health Ferry Boat Captain (DEVIN) documentation: [facility] Left detailed message , supplied CHW phone number Lulu Leeroy [facility] Community Health Worker Call or Text- [phone] documented in this encounter Plan of Treatment Upcoming Encounters Date Type Department Care Team (Late st Contact Info) Description 11/08/2024 8:45 AM EST Scheduled Telephone Care Coordination and Integration [address] [place] [address] Lulu Umaña [facility] [employer] Boat Captain [address] [place] [address] 11/08/2024 2:00 PM EST Telemedicine Cardiology [facility] [place] [address] [place] [address] [place], Pharmacist Cardiology H[facility] [address] [place] [address] 11/10/2024 2:20 PM EST Office Visit Family Practice [facility] [address] [place] [address] Ludy Jacobs CRNP [address] [place] [address] 11/15/2024 8:00 AM EST Scheduled Telephone Care Coordination and Integration [address] [place] [address] Lulu Umaña [facility] Health Ferry Boat Captain [address] [place] [address] 02/13/2025 3:30 PM EDT Telemedicine Care at Home [address] [place], [place] [id number] Lulu Yee PA-C [address] [place] [address] Scheduled Procedures Name Priority Associated Diagnoses Date/Ti me COLONOSCOPY FLEXIBLE PROXIMAL DIAGNOSTIC Recall History of colon polyps Health Maintenance Due Date Last Done Comments Alpha-1 Antitrypsin 1982 HPV/Co-Test 1994 Cologuard 2009 Fecal Occult Blood Test 2009 Sigmoidoscopy 2009 Zoster Vaccines (2 of 2) 03/06/2021 01/09/2021 CKD PHOS USE SMARTSET 53694 03/29/2022 03/29/2021, 0 03/28/2021 Albumin/Creatinine Ratio 09/29/2023 09/29/2022, 050 03/2021 Mammogram 03/02/2024 03/02/2023, 02/21, 11/04/2016, Additional history exists COVID-19 Vaccine ( season) 2024 10/21/2023, 09/26/2022, 09/26/2022, Additional history exists Cervical Cancer Screening 12/04/2024 Pap Smear 12/04/2024 12/04/2021, 02/21, 03/03/2016, Additional history exists GFR 01/30/2025 08/02/2024, 06/0 04/2024, 04/05/2024, Additional history exists CKD HGB USE SMARTSET 14586 08/02/202508/02, 08/02/2024, 04/28/2024, Additional history exists O2 [...] on File Name Relationship Healthcare Agent [facility] p Communication Lopez Santiago Spouse First Alternate Health Care Agent [place] Adult Child Health Care Agent Care Teams Clay Artisan Relationship Specialty Start Date End Date Ludy Jacobs CRNP [address] [place] [address] PCP - General Nurse Practitioner 04/20/24 documented as of this encounter
--- OUTSIDE RECORDS SUMMARY | 2024-11-11 09:50 | External Medical Summary | Summary of Care ---
Author Name Unknown Organization [facility] Address [address] [place] [address] Phone [phone] Care Team Providers Care Clinical Services Specialist Name Role Phone Ludy Jacobs Zeina LY Primary Care Provider Encounter Details Date Type Department Care Team (Late st Contact Info) Description 11/02/2024 11:15 AM EST Scheduled Telephone Care Coordination and Integration [address] [place] [address] Lulu Umaña, Community Health Angiography Technologist [address] [place] [address] Allergies Active Allergy Reactions Criticality Noted Date Comments Adhesive Tape 10/12/2019 Other reaction(s): BANDAIDS SKIN ABRASION Colchicine 05/08/2022 N/v/d Rosuvastatin 04/02/2021 Went into kidney failure Demerol 08/11/2012 Depression Ibuprofen 04/02/2021 Meperidine And Related 09/28/2002 depression Nsaids 04/02/2021 Sulfa Antibiotics Rash 07/09/2001 Ketorolac Tromethamine Medium 04/04/2021 documented as of this encounter (statuses as of 11/02/2024) Medications VALVED HOLDING CHAMBER DEVIIndications:CO PD with [...] Each 07/24/20 22 Active Full Kit Nebulizer SetIndications: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 D, group C, 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 ([facility]),Chronic hypoxemic respiratory failure ([facility]) Use with nebulizer 1 Each 07/24/20 22 Active Syringe 25G X 1-1/2" 3 ML Use for intramuscular B12 injection 1 Each 10/02/20 22 Active Albuterol Sulfate (2.5 MG/3ML) 0.083% Inhalation Nebulization Solution (Proventil)Indicat ions:COPD, group D, 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 ([facility] [...] Tablet Extended Release 24 Hour (toPROL XL)Indications:Old IA (myocardial infarction) TAKE 1 AND 1/2 TABLETS [...] s:COPD, group C, 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 ([facility] [...] as of this encounter (statuses as of 11/02/2024) Active Problems Problem Noted Date Diagnosed Date [...] noted above Atherosclerotic heart diseas e of [place] coronary artery with other forms of angina [...] (05/30/2022 4:32 PM EDT): Appointment scheduled with [facility] pain clinic [place] 07/02. Statin intolerance 01/24/2022 Osteopenia 01/08/2022 LYNDON [...] use aero chamber. 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 Took high dose replacement. Due to repeat. Coronary artery disease invo lving [place] coronary artery of [place] heart without angina pectoris 11/12/2015 Assessment & Plan (01/22/2023 12:36 PM EST): Stable no angina -continue ASA, metoprolol xl, repatha. Can't tolerate delgado d/t low bp Dyslipidemia, goal LDL below 70 11/12/2015 Sicca syndrome 12/29/2014 Acquired hypothyroidism 12/29/2014 Assessment & Plan (01/22/2023 12:45 PM EST): Continue synthroid Old IA (myocardial infarction) 11/01/2013 Assessment & Plan (05/30/2022 [...] as of this encounter (statuses as of 11/02/2024) Resolved Problems Problem Noted Date Diagnosed Date [...] use aero chamber. Test performed by Flex DIGITAL LIBRARIAN CPFT Assessment & Plan (05/30/2022 4:27 PM [...] moderate 04/07/2012 10/05/2012 Overview (04/07/2012): PFT 03/2008 [facility] COPD, SEVERE 04/07/2012 05/04/2019 Overview: PER COPD PROTOCOL #24. PFT 03/2008 [facility] LAST PFT -06/07/12 Gastroesophageal reflux dise ase with esophagitis 04/30/2009 01/14/2022 Overview (05/15/2009): mild ADVANCE DIRECTIVE INFORMATION 12/02/2008 09/26/2024 Overview (12/02/2008): No, Advance Directive brochure offered , patient declined. COPD with emphysema 10/05/20 12 documented as of this encounter (statuses as of 11/02/2024) Immunizations Name Administration Dates Next Due COVID-19 mRNA, LNP-s, No Pre serve, 2-Dose Series ([employer]) 09/26/2022,11/18/2021,04/04/2021,02/28 COVID-19, MRNA-LNP, PF, 30 M CG/0.3 mL, 12 YRS AND ABOVE, IM ([employer]) 10/21/2023 Covid-19, Mrna, Lnp-s, Pf, B ivalent, 30 Mcg, IM, 12 yrs and above ([employer]) 09/26/2022 HEPATITIS B VACCINE, RECOMB, 20 MCG/ML, [...] Progress Notes * Lulu Umaña, Community Health Angiography Technologist - 11/02/2024 10:38 AM EST Telemedicine visit: No Community Health Angiography Technologist (DEVIN) documentation: [facility]W outbound call to patient per Tamika Lepe RNCM [facility] Left detailed message included Tamika SAMPSON phone number Luluann Umaña [facility] Community Health Worker Call or Text- [phone] documented in this encounter Plan of Treatment Upcoming Encounters Date Type Department Care Team (Late st Contact Info) Description 11/08/2024 8:45 AM EST Scheduled Telephone Care Coordination and Integration [address] [place] [address] Lulu Umaña Community Health Angiography Technologist [address] [place] [address] 11/08/2024 2:00 PM EST Telemedicine Cardiology [facility] [place] [address] [place] [address] [place], Pharmacist Cardiology [facility] [address] [place] [address] 11/10/2024 2:20 PM EST Office Visit Family Practice [facility] [address] [place] [address] Ludy Jacobs CRNP [address] [place] [address] 11/15/2024 8:00 AM EST Scheduled Telephone Care Coordination and Integration [address] [place] [address] Lulu Umaña Community Health Angiography Technologist [address] [place] [address] 02/13/2025 3:30 PM EDT Telemedicine Care at Home [address] [place] [address] Lulu Yee PA-C [address] [place] [address] Scheduled Procedures Name Priority Associated Diagnoses Date/Ti me COLONOSCOPY FLEXIBLE PROXIMAL DIAGNOSTIC Recall History of colon polyps Health Maintenance Due Date Last Done Comments Alpha-1 Antitrypsin 1982 HPV/Co-Test 1994 Cologuard 2009 Fecal Occult Blood Test 2009 Sigmoidoscopy 2009 Zoster Vaccines (2 of 2) 03/06/2021 01/09/2021 CKD PHOS USE SMARTSET 57177 03/29/2022 03/29/2021, 0 03/28/2021 Albumin/Creatinine Ratio 09/29/2023 09/29/2022, 050 03/2021 Mammogram 03/02/2024 03/02/2023, 02/21, 11/04/2016, Additional history exists COVID-19 Vaccine ( season) 2024 10/21/2023, 09/26/2022, 09/26/2022, Additional history exists Cervical Cancer Screening 12/04/2024 Pap Smear 12/04/2024 12/04/2021, 02/21, 03/03/2016, Additional history exists GFR 01/30/2025 08/02/2024, 06/0 04/2024, 04/05/2024, Additional history exists CKD HGB USE SMARTSET 26291 08/02/202508/02, 08/02/2024, 04/28/2024, Additional history exists O2 [...] Agents on File Name Relationship Healthcare Agent [facility] p Communication Lopez Santiago Spouse First Alternate Health Care Agent [place] Adult Child Health Care Agent Care Teams Clinical Services Specialist Relationship Specialty Start Date End Date Luyd Jacobs CRNP [address] [place] [address] PCP - General Nurse Practitioner 04/20/24 documented as of this encounter
--- OUTSIDE RECORDS SUMMARY | 2024-11-11 09:50 | External Medical Summary | Summary of Care ---
Author Name Unknown Organization [facility] Address [address] [address] Phone [phone] Care Team Providers Care Planogrammer Name Role Phone Martha Jacobssa Zeina LY Primary Care Provider Reason for Visit * Reason Comments eRx-Medication Refill Encounter Details Date Type Department Care Team (Late st Contact Info) Description 10/25/2024 Refill Family Practice [facility] [address] [facility] [place] [address] Ace Rodriguez, DO [address] [place] [address] Chronic pain syndrome Allergies Active Allergy Reactions Criticality Noted Date Comments Adhesive Tape 10/12/2019 Other reaction(s): BANDAIDS SKIN ABRASION Colchicine 05/08/2022 N/v/d Rosuvastatin 04/02/2021 Went into kidney failure Demerol 08/11/2012 Depression Ibuprofen 04/02/2021 Meperidine And Related 09/28/2002 depression Nsaids 04/02/2021 Sulfa Antibiotics Rash 07/09/2001 Ketorolac Tromethamine Medium 04/04/2021 documented as of this encounter (statuses as of 10/27/2024) Medications VALVED HOLDING CHAMBER DEVIIndications:C OPD with [...] :COPD, group C, 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 ([facility]),Chronic hypoxemic respiratory failure ([facility]) Use with nebulized medications 1 Each 022 Active Full Kit Nebulizer SetIndications:CO PD, group C, 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 ([facility]),Chronic hypoxemic respiratory failure ([facility]) Use with nebulizer 1 Each 022 Active Syringe 25G X 1-1/2" 3 ML Use for intramuscular B12 injection 1 Each 022 Active Albuterol Sulfate (2.5 MG/3ML) 0.083% Inhalation Nebulization Solution (Proventil)Indica tions:COPD, group D, 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 ([facility]) Inhale 1 Vial via nebulizer 4 [...] Extended Release 24 Hour (toPROL XL)Indications:Ol d HI (myocardial infarction) TAKE 1 AND 1/2 TABLETS BY MOUTH EVERY MORNING 135 Tablet 024 Active Folic Acid 1 MG Oral [...] minutes prior to injection. 6 mL 3 10/24/20 24 8:51 AM EST 024 Active PARoxetine HCl 40 MG Oral [...] ns:COPD, group C, 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 ([facility]) Inhale 2 Puffs by mouth every [...] PLACE OF RESCUE INHALER 360 mL 5 024 Active Methocarbamol 500 MG Oral Tablet (Robamol)Indicati ons:Chronic pain syndrome TAKE 1 TABLET BY MOUTH 4 TIMES A DAY (MORNING, NOON, EVENING, AND BEFORE BEDTIME) 120 Tablet Active Methocarbamol 500 MG Oral Tablet (Robamol)Indicati ons:Chronic pain syndrome TAKE 1 TABLET IN THE MORNING, 1 AT NOON, 1 IN THE EVENING AND 1 BEFORE BEDTIME. 120 Tablet 3 024 2023 Discontinued Hospital, Clinic, or Other Facility Administered Medication Ordered Dose Route Frequency Start Date End Date Status Albuterol Sulfate (Proventil) (2.5 MG/3ML) 0.083% inhalation solution 2.5 mgIndications:COPD, group D, 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 ([facility]) 2.5 mg NEBULIZER ONCE PRN 04/28/2024 04/28/2025 Acti ve documented as of this encounter (statuses as of 10/27/2024) Active Problems Problem Noted Date Diagnosed Date [...] noted above Atherosclerotic heart diseas e of [place] coronary artery with other forms of angina [...] (05/30/2022 4:32 PM EDT): Appointment scheduled with [facility] pain clinic [place] 07/02. Statin intolerance 01/24/2022 Osteopenia 01/08/2022 LYNDON [...] use aero chamber. 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 Coronary artery disease invo lving [place] coronary artery of [place] heart without angina pectoris 11/12/2015 Assessment & Plan (01/22/2023 12:36 PM EST): Stable no angina -continue ASA, metoprolol xl, repatha. Can't tolerate delgado d/t low bp Dyslipidemia, goal LDL below 70 11/12/2015 Sicca syndrome 12/29/2014 Acquired hypothyroidism 12/29/2014 Assessment & Plan (01/22/2023 12:45 PM EST): Continue synthroid Old HI (myocardial infarction) 11/01/2013 Assessment & Plan (05/30/2022 [...] as of this encounter (statuses as of 10/27/2024) Resolved Problems Problem Noted Date Diagnosed Date [...] use aero chamber. Test performed by Flex POLICE MANAGER CPFT Assessment & Plan (05/30/2022 4:27 PM [...] use aero chamber. Test performed by Flex POLICE MANAGER [facility] COPD, group B, 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 [...] moderate 04/07/2012 10/05/2012 Overview (04/07/2012): PFT 03/2008 [facility] COPD, SEVERE 04/07/2012 05/04/2019 Overview: PER COPD PROTOCOL #24. PFT 03/2008 [facility] LAST PFT -06/07/12 Gastroesophageal reflux dise ase with esophagitis 04/30/2009 01/14/2022 Overview (05/15/2009): mild ADVANCE DIRECTIVE INFORMATION 12/02/2008 09/26/2024 Overview (12/02/2008): No, Advance Directive brochure offered , patient declined. COPD with emphysema 10/05/20 12 documented as of this encounter (statuses as of 10/27/2024) Immunizations Name Administration Dates Next Due COVID-19 mRNA, LNP-s, No Pre serve, 2-Dose Series ([employer]) 09/26/2022,11/18/2021,04/04/2021,02/28 COVID-19, MRNA-LNP, PF, 30 M CG/0.3 mL, 12 YRS AND ABOVE, IM ([employer]) 10/21/2023 Covid-19, Mrna, Lnp-s, Pf, B ivalent, [...] No 09/27/2024 Does the household have a [facility] source of income? (Household - for [...] 03/28/2021 5:37 AM EDT Valentino Child, BREE * Are you blind or do [...] encounter Miscellaneous Notes * Telephone Encounter - Ludy Jacobs CRNP - 10/27/2024 8:33 AM EST Signed Prescriptions: Disp Refills Methocarbamol 500 MG Oral Tablet (Robamol) 120 Ta*0 Sig: TAKE 1 TABLET BY MOUTH 4 TIMES A DAY (MORNING, NOON, EVENING, AND BEFORE BEDTIME) Authorizing Provider: LUDY JACOBS * Telephone Encounter - Andreia Odonnell RPh - 10/27/2024 7:30 AM EST Pending Prescriptions: Disp Refills Methocarbamol 500 MG Oral Tablet [Pharmacy*120 Ta*3 Sig: TAKE 1 TABLET BY MOUTH 4 TIMES A DAY (MORNING, NOON, EVENING, AND BEFORE BEDTIME) * Telephone Encounter - Andreia Odonnell RPh - 10/27/2024 7:30 AM EST [facility] not authorized to approve refills for this class of medication per refillprotocol. Thank you, Andreia Odonnell, PharmD Staff Pharmacist Refill Call Center [phone] 10/27/2024, 7:30 AM Pending Prescriptions: Disp Refills Methocarbamol 500 MG Oral Tablet [Pharmacy*120 Ta*3 Sig: TAKE 1 TABLET BY MOUTH 4 TIMES A DAY (MORNING, NOON, EVENING, AND BEFORE BEDTIME) Last Visit: 08/02/2024 (in office), 01/14/2024 (telemedicine) Next Visit: 11/10/2024 If no future appointments scheduled, and last appointment is greater than a year ago, please schedule patient for a follow-up appointment Last date the medication was ordered: 04/19/24 Pharmacy: [facility] [address] Is this request for a controlled substance?No Urine Drug Screen: Results for orders placed or performed in visit on 04/02/21 PAIN MANAGEMENT DRUG PANEL, URINE W/ INTERPRETATION Result Value Compliance Interpretation Based on the medication information provided: The presence of lorazepam is CONSISTENT with lorazepam use. The presence of THC metabolite is INCONSISTENT with the information provided. Amphetamines Screen, U Negative Benzodiazepines Screen, U Refer to confirmation results (A) Cannabinoids Screen, U Refer to confirmation results (A) Cocaine Metabolite Screen, U Negative Hydrocodone Screen, U Negative Methadone Metabolite Screen, U Negative Morphine/Codeine Screen, U Negative Oxycodone Screen, U Negative Valid Interpretation Normal Creatinine, U 36 Narrative Cutoff Concentrations: Drug Level Amphetamines 500 ng/mL Benzodiazepines 100 ng/mL Cannabinoids 50 ng/mL Cocaine Metabolite 150 ng/mL Hydrocodone / Hydromorphone 100 ng/mL Methadone Metabolite 100 ng/mL Morphine / Codeine 300 ng/mL Oxycodone / Oxymorphone 100 ng/mL Screening results are presumptive and can only be used for medical purposes. Confirmatory testing is available upon request. *Note: Due to a large number of results and/or encounters for the requested time period, some results have not been displayed. A complete set of results can be found in Results Review. Patient Phone Numbers Labs: Lab Results Component [...] Telephone Care Coordination and Integration [address] [facility] [place] [address] Lulu Umaña, Community Health Regulator Assembler [address] [facility] [place] [address] 11/08/2024 8:45 AM EST Scheduled Telephone Care Coordination and Integration [address] [facility] [place] [address] Lulu Umaña, Community Health Regulator Assembler [address] [facility] [place] [address] 11/08/2024 2:00 PM EST Telemedicine Cardiology [facility] [place] [address] [address] [place] [address], Pharmacist Cardiology [facility] [address] [facility] [place] [address] 11/10/2024 2:20 PM EST [facility] [place] [place] [id number] Ludy Jacobs CRNP [address] [address] 11/15/2024 8:00 AM EST Scheduled Telephone Care Coordination and Integration [address] [place] [address] Lulu Umaña, Community Health Regulator Assembler [address] [place] [address] 02/13/2025 3:30 PM EDT Telemedicine Care at Home [address] [place] [address] Lulu Yee PA-C [address] [place] [address] Scheduled Procedures Name Priority Associated Diagnoses Date/Ti me COLONOSCOPY FLEXIBLE PROXIMAL DIAGNOSTIC Recall History of colon polyps Health Maintenance Due Date Last Done Comments Alpha-1 Antitrypsin 1982 HPV/Co-Test 1994 Cologuard 2009 Fecal Occult Blood Test 2009 Sigmoidoscopy 2009 Zoster Vaccines (2 of 2) 03/06/2021 01/09/2021 CKD PHOS USE SMARTSET 06203 03/29/2022 03/29/2021, 0 03/28/2021 Albumin/Creatinine Ratio 09/29/2023 09/29/2022, 050 03/2021 Mammogram 03/02/2024 03/02/2023, 02/21, 11/04/2016, Additional history exists COVID-19 Vaccine ( season) 2024 10/21/2023, 09/26/2022, 09/26/2022, Additional history exists Cervical Cancer Screening 12/04/2024 Pap Smear 12/04/2024 12/04/2021, 02/21, 03/03/2016, Additional history exists GFR 01/30/2025 08/02/2024, 06/0 04/2024, 04/05/2024, Additional history exists CKD HGB USE SMARTSET 87466 08/02/202508/02, 08/02/2024, 04/28/2024, Additional history exists O2 [...] as of this encounter Visit Diagnoses Diagnosis Hypokalemia- Primary Hypopotassemia Chronic combined systolic and diastolic congestive heart failure (HCC) Chronic combined systolic and diastolic heart failure Pericardial effusion Unspecified disease of pericardium COPD, group C, 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 (HCC) Hypotension, unspecified hypotension type Old HI (myocardial infarction) Old myocardial infarction Lung nodules Other nonspecific abnormal finding of lung field Other chronic pain Advanced care planning/counseling discussion- Primary Other specified counseling Generalized anxiety disorder Major depressive disorder, recurrent episode, moderate (HCC) Major depressive disorder, recurrent episode, moderate Cerebellar hemangioma (HCC) Hemangioma of intracranial structures Atherosclerotic heart disease of [place] coronary artery with other forms of angina pectoris (HCC) Coronary artery disease involving [place] coronary artery of [place] heart without angina pectoris Acquired hypothyroidism Unspecified hypothyroidism Dyslipidemia, goal LDL below 70 Other and unspecified hyperlipidemia HFrEF (heart failure with reduced ejection fraction) (HCC) Other specified hypotension Acute on chronic respiratory failure with hypoxia (HCC) COPD, group C, 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 (HCC) Neuropathic pain Neuralgia, neuritis, and radiculitis, unspecified LYNDON (generalized anxiety disorder) Generalized anxiety disorder Tobacco use disorder Vomiting and diarrhea Vomiting alone Sicca syndrome (HCC) Sicca syndrome Chronic pain syndrome documented in this encounter Advance Directives * [...] Agents on File Name Relationship Healthcare Agent [facility] Communication Lopez Brown Spouse First Alternate Health Care Agent [place] Adult Child Health Care Agent Care Teams Planogrammer Relationship Specialty Start Date End Date Ludy Jacobs CRNP [address] [place] [address] PCP - General Nurse Practitioner 04/20/24 documented as of this encounter
--- OUTSIDE RECORDS SUMMARY | 2024-11-11 09:50 | External Medical Summary | Summary of Care ---
Author Name Unknown Organization [facility] Address [address] [place] [address] Phone [phone] Care Team Providers Care Painter Spray Name Role Phone Ludy Jacobs Zeina LY Primary Care Provider Encounter Details Date Type Department Care Team (Late st Contact Info) Description 10/25/2024 2:00 PM EST Scheduled Telephone Care Coordination and Integration [address] [place] [address] Lulu Umaña, Community Health Rental Representative [address] [place] [address] Allergies Active Allergy Reactions Criticality Noted Date Comments Adhesive Tape 10/12/2019 Other reaction(s): BANDAIDS SKIN ABRASION Colchicine 05/08/2022 N/v/d Rosuvastatin 04/02/2021 Went into kidney failure Demerol 08/11/2012 Depression Ibuprofen 04/02/2021 Meperidine And Related 09/28/2002 depression Nsaids 04/02/2021 Sulfa Antibiotics Rash 07/09/2001 Ketorolac Tromethamine Medium 04/04/2021 documented as of this encounter (statuses as of 10/26/2024) Medications VALVED HOLDING CHAMBER DEVIIndications:CO PD with [...] COPD, group C, 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 ([facility]),Chronic hypoxemic respiratory failure ([facility]) Use with nebulized medications 1 Each 07/24/20 22 Active Full Kit Nebulizer SetIndications:FILTER TENDER JELLY D, group C, 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 ([facility]),Chronic hypoxemic respiratory failure ([facility]) Use with nebulizer 1 Each 07/24/20 22 Active Syringe 25G X 1-1/2" 3 ML Use for intramuscular B12 injection 1 Each 10/02/20 22 Active Albuterol Sulfate (2.5 MG/3ML) 0.083% Inhalation Nebulization Solution (Proventil)Indicat ions:COPD, group D, 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 ([facility]) Inhale 1 Vial via nebulizer 4 [...] (HCC),HFrEF (heart failure with reduced ejection fraction) ([facility]) Take 1 Tablet by mouth in [...] s:COPD, group C, 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 ([facility]) Inhale 2 Puffs by mouth every [...] mgIndications:COPD, group D, 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 ([facility]) 2.5 mg NEBULIZER ONCE PRN 04/28/2024 04/28/2025 Acti ve documented as of this encounter (statuses as of 10/26/2024) Active Problems Problem Noted Date Diagnosed Date [...] noted above Atherosclerotic heart diseas e of [place] coronary artery with other forms of angina [...] (05/30/2022 4:32 PM EDT): Appointment scheduled with [facility] pain clinic [place] 07/02. Statin intolerance 01/24/2022 Osteopenia 01/08/2022 LYNDON [...] use aero chamber. Test performed by Flex LIVING SKILLS ADVISOR CPFT Circadian rhythm sleep disorder 09/17/2018 Nocturnal hypoxemia due to emphysema 07/30/2018 Adjustment disorder with mixed anxiety and depre ssed mood 07/04/2018 TERMINATED MEDICATION USAGE AGREEMENT 06/03/2018 Dupuytren's contracture of left hand 02/01/2018 Mixed incontinence urge and stress (male)(female ) 03/20/2017 Vitamin D deficiency 03/03/2016 Overview (03/03/2016): March 2015 = 13. Took high dose replacement. Due to repeat. Coronary artery disease invo lving [place] coronary artery of [place] heart without angina pectoris 11/12/2015 Assessment & [...] as of this encounter (statuses as of 10/26/2024) Resolved Problems Problem Noted Date Diagnosed Date [...] use aero chamber. Test performed by Flex LIVING SKILLS ADVISOR CPFT Assessment & Plan (05/30/2022 4:27 PM [...] moderate 04/07/2012 10/05/2012 Overview (04/07/2012): PFT 03/2008 [facility] COPD, SEVERE 04/07/2012 05/04/2019 Overview: PER COPD PROTOCOL #24. PFT 03/2008 [facility] LAST PFT -06/07/12 Gastroesophageal reflux dise ase with esophagitis 04/30/2009 01/14/2022 Overview (05/15/2009): mild ADVANCE DIRECTIVE INFORMATION 12/02/2008 09/26/2024 Overview (12/02/2008): No, Advance Directive brochure offered , patient declined. COPD with emphysema 10/05/20 12 documented as of this encounter (statuses as of 10/26/2024) Immunizations Name Administration Dates Next Due COVID-19 mRNA, LNP-s, No Pre serve, 2-Dose Series ([facility]) 09/26/2022,11/18/2021,04/04/2021,02/28 COVID-19, MRNA-LNP, PF, 30 M CG/0.3 mL, 12 YRS AND ABOVE, IM ([facility]) 10/21/2023 Covid-19, Mrna, Lnp-s, Pf, B ivalent, 30 Mcg, IM, 12 yrs and above ([facility]) 09/26/2022 HEPATITIS B VACCINE, RECOMB, 20 MCG/ML, [...] 03/28/2021 5:37 AM EDT Valentino Child RN documented in this encounter Progress Notes * Tamika Lepe RN - 10/26/2024 10:23 AM EST Patient is already scheduled with Ludy LY on 11/10 at 2:20, matching her spouse's appointment. * Lulu Umaña [facility] Health Rental Representative - 10/25/2024 3:42 PM EST Telemedicine visit: No Community Health Rental Representative (DEVIN) documentation: CHW outbound call to patient [...] breath Wears oxygen to sleep Lulu Umaña [facility] Community Health Worker Call or Text- [phone] Lulu Umaña [facility] Community Health Worker Call or Text- [phone] Electronically signed by Lulu Umaña [facility] Health Rental Representative at 10/25/2024 3:58 PM EST documented in this encounter Plan of Treatment Upcoming Encounters Date Type Department Care Team (Late st Contact Info) Description 11/01/2024 11:00 AM EST Scheduled Telephone Care Coordination and Integration [address] [place] [address] Lulu Umaña [facility] Health Rental Representative [address] [facility] [place] [address] 11/08/2024 8:45 AM EST Scheduled Telephone Care Coordination and Integration [address] [facility] [place] [address] Umaña, Lulu M, Community Health Rental Representative [address] [place] [address] 11/08/2024 2:00 PM EST Telemedicine Cardiology [facility], [place] [address] [place] [address] [place] [address], Pharmacist Cardiology [facility] [address] [place] [address] 11/10/2024 2:20 PM EST Office Visit [facility] [address] [facility] [address] Ludy Jacobs CRNP [address] [place] [address] 11/15/2024 8:00 AM EST Scheduled Telephone Care Coordination and Integration [address] [place] [address] Lulu Umaña [facility] Health Rental Representative [address] [place] [address] 02/13/2025 3:30 PM EDT Telemedicine Care at Home [address] [place] [address] Lulu Yee PA-C [address] [place] [address] Scheduled Procedures Name Priority Associated Diagnoses Date/Ti me COLONOSCOPY FLEXIBLE PROXIMAL DIAGNOSTIC Recall History of colon polyps Health Maintenance Due Date Last Done Comments Alpha-1 Antitrypsin 1982 HPV/Co-Test 1994 Cologuard 2009 Fecal Occult Blood Test 2009 Sigmoidoscopy 2009 Zoster Vaccines (2 of 2) 03/06/2021 01/09/2021 CKD PHOS USE SMARTSET 55846 03/29/2022 03/29/2021, 0 03/28/2021 Albumin/Creatinine Ratio 09/29/2023 09/29/2022, 05/0 03/2021 Mammogram 03/02/2024 03/02/2023, 02/21, 11/04/2016, Additional history exists COVID-19 Vaccine ( season) 2024 10/21/2023, 09/26/2022, 09/26/2022, Additional history exists Cervical Cancer Screening 12/04/2024 Pap Smear 12/04/2024 12/04/2021, 02/21, 03/03/2016, Additional history exists GFR 01/30/2025 08/02/2024, 06/0 04/2024, 04/05/2024, Additional history exists CKD HGB USE SMARTSET 30844 08/02/202508/02, 08/02/2024, 04/28/2024, Additional history exists O2 [...] Agents on File Name Relationship Healthcare Agent [facility] Communication Lopez Brown Spouse [facility] Health Care Agent [place] Adult Child Health Care Agent Care Teams Painter Spray Relationship Specialty Start Date End Date Ludy Jacobs CRNP [address] [place] [address] PCP - General Nurse Practitioner 04/20/24 documented as of this encounter
--- OUTSIDE RECORDS SUMMARY | 2024-11-11 09:51 | External Medical Summary | Summary of Care ---
Author Name Unknown Organization [facility] Address [address] [facility] [place] [address] Phone [phone] Care Team Providers Care Crate Builder Name Role Phone Ludy Jacobs Zeina LY Primary Care Provider Encounter Details Date Type Department Care Team (Late st Contact Info) Description 10/17/2024 Population Health External Data Unspecified Department Allergies Active Allergy Reactions Criticality Noted Date Comments Adhesive Tape 10/12/2019 Other reaction(s): BANDAIDS SKIN ABRASION Colchicine 05/08/2022 N/v/d Rosuvastatin 04/02/2021 Went into kidney failure Demerol 08/11/2012 Depression Ibuprofen 04/02/2021 Meperidine And Related 09/28/2002 depression Nsaids 04/02/2021 Sulfa Antibiotics Rash 07/09/2001 Ketorolac Tromethamine Medium 04/04/2021 documented as of this encounter (statuses as of 10/17/2024) Medications VALVED HOLDING CHAMBER DEVIIndications:CO PD with [...] Documents, Reported on 12/24/2022 Nebulizers (NEBULIZER COMPRESSOR) [facility] Inhale via nebulizer. Along with supply . Use as directed. Dx code- J44.9 and J43.9 1 Each 10/05/20 18 Active aspirin enteric coated 81 MG TBEC Take 1 Tablet by mouth every morning. Active Acetaminophen 325 MG Oral Tablet (Tylenol) Take 1 Tablet by mouth every 6 hours as needed. Active Nebulizer DeviceIndications: COPD, group C, 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 ([facility]),Chronic hypoxemic respiratory failure ([facility]) Use with nebulized medications 1 Each 07/24/20 22 Active Full Kit Nebulizer SetIndications:INSTALLATIONS INSPECTOR D, group C, 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 ([facility]),Chronic hypoxemic respiratory failure ([facility]) Use with nebulizer 1 Each 07/24/20 Active Syringe 25G X 1-1/2" 3 ML Use for intramuscular B12 injection 1 Each 10/02/20 22 Active Albuterol Sulfate (2.5 MG/3ML) 0.083% Inhalation Nebulization Solution (Proventil)Indicat ions:COPD, group D, 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 ([facility]) Inhale 1 Vial via nebulizer [...] (heart failure with reduced ejection fraction) ([facility]) Take 1 Tablet by mouth [...] group C, 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 ([facility]) Inhale 2 Puffs by mouth [...] group D, 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 ([facility]) 2.5 mg NEBULIZER ONCE PRN 04/28/2024 04/28/2025 Acti ve documented as of this encounter (statuses as of 10/17/2024) Active Problems Problem Noted Date Diagnosed Date [...] noted above Atherosclerotic heart diseas e of [place] coronary artery with other forms of angina [...] 4:32 PM EDT): Appointment scheduled with [facility] pain clinic [place] 07/02. Statin intolerance 01/24/2022 Osteopenia 01/08/2022 LYNDON [...] use aero chamber. Test performed by Flex LOOM CONTROL CHAIN BUILDER CPFT Circadian rhythm sleep disorder 09/17/2018 Nocturnal hypoxemia due to emphysema 07/30/2018 Adjustment disorder with mixed anxiety and depre ssed mood 07/04/2018 TERMINATED MEDICATION USAGE AGREEMENT 06/03/2018 Dupuytren's contracture of left hand 02/01/2018 Mixed incontinence urge and stress (male)(female ) 03/20/2017 Vitamin D deficiency 03/03/2016 Overview (03/03/2016): March 2015 = 13. Took high dose replacement. Due to repeat. Coronary artery disease invo lving [place] coronary artery of [place] heart without angina pectoris 11/12/2015 Assessment & [...] metoprolol Cerebellar hemangioma 12/15/2012 Overview (12/15/2012): MRI 2008 Generalized osteoarthritis 09/14/2012 S/P angioplasty with stent 02/19/2011 Gastroparesis 04/13/2009 History of peptic ulcer disease 03/05/2009 Overview (08/24/2017): ICD-10 update of inactive term Tobacco use disorder 12/02/2008 Assessment & Plan (01/22/2023 12:46 PM EST): No interest in cessation DDD (degenerative disc disease), cervical Endometriosis Irritable bowel syndrome with constipation documented as of this encounter (statuses as of 10/17/2024) Resolved Problems Problem Noted Date Diagnosed Date [...] 01/21/2023 Major depressive disorder with single episode 10/07/2001/27/2024 Chronic kidney disease, stage 3b 09/30/2021 01/14/2022 [...] use aero chamber. Test performed by Flex LOOM CONTROL CHAIN BUILDER CPFT Assessment & Plan (05/30/2022 4:27 PM [...] use aero chamber. Test performed by Flex LOOM CONTROL CHAIN BUILDER CPFT COPD, group B, by GOLD 2017 [...] moderate 04/07/2012 10/05/2012 Overview (04/07/2012): PFT 03/2008 [facility] COPD, SEVERE 04/07/2012 05/04/2019 Overview: PER COPD PROTOCOL #24. PFT 03/2008 [facility] LAST PFT -06/07/12 Gastroesophageal reflux dise ase with esophagitis 04/30/2009 01/14/2022 Overview (05/15/2009): mild ADVANCE DIRECTIVE INFORMATION 12/02/2008 09/26/2024 Overview (12/02/2008): No, Advance Directive brochure offered , patient declined. COPD with emphysema 10/05/20 12 documented as of this encounter (statuses as of 10/17/2024) Immunizations Name Administration Dates Next Due COVID-19 mRNA, LNP-s, No Pre serve, 2-Dose Series ([employer]) 09/26/2022,11/18/2021,04/04/2021,02/28 COVID-19, MRNA-LNP, PF, 30 M CG/0.3 mL, 12 YRS AND ABOVE, IM ([facility]) 10/21/2023 Covid-19, Mrna, Lnp-s, Pf, B ivalent, [...] Team (Late st Contact Info) Description 10/18/2024 8:40 AM EST Office Visit Family [address] [place] [address] Ludy Jacobs CRNP [address] [facility] [address] 10/18/2024 11:45 AM EST Scheduled Telephone Care Coordination and Integration [address] [place] [address] Lulu Umaña, Community Health Plisse Machine Operator Helper [address] [place] [address] 10/21/2024 3:00 PM EST Telemedicine Psychiatry [facility] [address] [place] [address] Codi Reardon CRNP [address] [place] [address] 10/24/2024 3:40 PM EST Office Visit Pulmonary Medicine, [facility] [address] [place] [address] Sony Duong MD [address] [place] [address] 11/08/2024 2:00 PM EST Telemedicine Cardiology [facility], [place] [address] [place] [address] [place], Pharmacist Cardiology [facility] [address] [place] [address] 11/10/2024 2:20 PM EST Office Visit Family Practice [facility] [address] [place] [address] Ludy Jacobs CRNP [address] [facility] [address] 02/13/2025 3:30 PM EDT Telemedicine Care at Home [address] [place] [address] Lulu Yee PA-C [address] [place] [address] Scheduled Procedures Name Priority Associated Diagnoses Date/Ti me COLONOSCOPY FLEXIBLE PROXIMAL DIAGNOSTIC Recall History of colon polyps Health Maintenance Due Date Last Done Comments Alpha-1 Antitrypsin 1982 HPV/Co-Test 1994 Cologuard 2009 Fecal Occult Blood Test 2009 Sigmoidoscopy 2009 Zoster Vaccines (2 of 2) 03/06/2021 01/09/2021 CKD PHOS USE SMARTSET [id number] 03/29/2022 03/29/2021, 0 03/28/2021 Albumin/Creatinine Ratio 09/29/2023 09/29/2022, 050 03/2021 Mammogram 03/02/2024 03/02/2023, 02/21, 11/04/2016, Additional history exists COVID-19 Vaccine ( season) 2024 10/21/2023, 09/26/2022, 09/26/2022, Additional history exists Cervical Cancer Screening 12/04/2024 Pap Smear 12/04/2024 12/04/2021, 02/21, 03/03/2016, Additional history exists GFR 01/30/2025 08/02/2024, 06/0 04/2024, 04/05/2024, Additional history exists CKD HGB USE SMARTSET 57359 08/02/202508/02, 08/02/2024, 04/28/2024, Additional history exists O2 [...] Agents on File Name Relationship Healthcare Agent [facility] Communication Lopez Santiago Spouse First Alternate Health Care Agent [place] Adult Child Health Care Agent Care Teams Crate Builder Relationship Specialty Start Date End Date Ludy Jacobs CRNP [address] [place] [address] PCP - General Nurse Practitioner 04/20/24 documented as of this encounter
--- OUTSIDE RECORDS SUMMARY | 2024-11-11 09:51 | External Medical Summary | Summary of Care ---
Author Name Unknown Organization [facility] Address [address] [place] [address] Phone [phone] Care Team Providers Care Coal Trammer Name Role Phone Ludy Jacobs Zeina LY Primary Care Provider Encounter Details Date Type Department Care Team (Late st Contact Info) Description 10/13/2024 8:30 AM EST Scheduled Telephone Care Coordination and Integration [address] [place] [address] Lulu Umaña, Community Health High Density Press Operator [address] [place] [address] Allergies Active Allergy Reactions Criticality Noted Date Comments Adhesive Tape 10/12/2019 Other reaction(s): BANDAIDS SKIN ABRASION Colchicine 05/08/2022 N/v/d Rosuvastatin 04/02/2021 Went into kidney failure Demerol 08/11/2012 Depression Ibuprofen 04/02/2021 Meperidine And Related 09/28/2002 depression Nsaids 04/02/2021 Sulfa Antibiotics Rash 07/09/2001 Ketorolac Tromethamine Medium 04/04/2021 documented as of this encounter (statuses as of 10/13/2024) Medications VALVED HOLDING CHAMBER DEVIIndications:CO PD with [...] group C, 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 ([facility]),Chronic hypoxemic respiratory failure ([facility]) Use with nebulized medications 1 Each 07/24/20 22 Active Full Kit Nebulizer SetIndications:BEET WORKER D, group C, 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 ([facility]),Chronic hypoxemic respiratory failure ([facility]) Use with nebulizer 1 Each 07/24/20 22 Active Syringe 25G X 1-1/2" 3 ML Use for intramuscular B12 injection 1 Each 10/02/20 22 Active Albuterol Sulfate (2.5 MG/3ML) 0.083% Inhalation Nebulization Solution (Proventil)Indicat ions:COPD, group D, 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 ([facility]) Inhale 1 Vial via nebulizer 4 times [...] (heart failure with reduced ejection fraction) ([facility]) Take 1 Tablet by mouth in the [...] group C, 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 ([facility]) Inhale 2 Puffs by mouth every 4 [...] group D, 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 ([facility]) 2.5 mg NEBULIZER ONCE PRN 04/28/2024 04/28/2025 Acti ve documented as of this encounter (statuses as of 10/13/2024) Active Problems Problem Noted Date Diagnosed Date [...] noted above Atherosclerotic heart diseas e of [place] coronary artery with other forms of angina [...] (05/30/2022 4:32 PM EDT): Appointment scheduled with [facility] pain clinic [place] 07/02. Statin intolerance 01/24/2022 Osteopenia 01/08/2022 LYNDON [...] use aero chamber. 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 Took high dose replacement. Due to repeat. Coronary artery disease invo lving [place] coronary artery of [place] heart without angina pectoris 11/12/2015 Assessment & Plan (01/22/2023 12:36 PM EST): Stable no angina -continue ASA, metoprolol xl, repatha. Can't tolerate delgado d/t low bp Dyslipidemia, goal LDL below 70 11/12/2015 Sicca syndrome 12/29/2014 Acquired hypothyroidism 12/29/2014 Assessment & Plan (01/22/2023 12:45 PM EST): Continue synthroid [place] (myocardial infarction) 11/01/2013 Assessment & Plan (05/30/2022 [...] as of this encounter (statuses as of 10/13/2024) Resolved Problems Problem Noted Date Diagnosed Date [...] use aero chamber. Test performed by Flex WEAPONS AND TACTICS INSTRUCTOR CPFT Assessment & Plan (05/30/2022 4:27 PM [...] moderate 04/07/2012 10/05/2012 Overview (04/07/2012): PFT 03/2008 [facility] COPD, SEVERE 04/07/2012 05/04/2019 Overview: PER COPD PROTOCOL #24. PFT 03/2008 [facility] LAST PFT -06/07/12 Gastroesophageal reflux dise ase with esophagitis 04/30/2009 01/14/2022 Overview (05/15/2009): mild ADVANCE DIRECTIVE INFORMATION 12/02/2008 09/26/2024 Overview (12/02/2008): No, Advance Directive brochure offered , patient declined. COPD with emphysema 10/05/20 12 documented as of this encounter (statuses as of 10/13/2024) Immunizations Name Administration Dates Next Due COVID-19 mRNA, LNP-s, No Pre serve, 2-Dose Series ([employer]) 09/26/2022,11/18/2021,04/04/2021,02/28 COVID-19, MRNA-LNP, PF, 30 M CG/0.3 mL, 12 YRS AND ABOVE, IM ([facility]) 10/21/2023 Covid-19, Mrna, Lnp-s, Pf, B [...] Progress Notes * Lulu Umaña, Community Health High Density Press Operator - 10/13/2024 9:25 AM EST Telemedicine visit: No Community Health High Density Press Operator (DEVIN) documentation: CHW outbound calls per Tamika SAMPSON [facility] CHW left detailed voicemail for patient to call Tamika SAMPSON phone number supplied Lulu Umaña [facility] Community Health Worker Call or Text- [phone] documented in this encounter Plan of Treatment Upcoming Encounters Date Type Department Care Team (Late st Contact Info) Description 10/18/2024 11:45 AM EST Scheduled Telephone Care Coordination and Integration [address] [place] [address] Lulu Umaña Community Health High Density Press Operator [address] [place] [address] 10/21/2024 3:00 PM EST Telemedicine Psychiatry [facility] [address] [place] [address] Codi Reardon CRNP [address] [place] [address] 11/08/2024 2:00 PM EST Telemedicine Cardiology [facility], [place] [address] [place] [address] [place], Pharmacist Cardiology [facility] [address] [place] [address] 11/10/2024 2:20 PM EST Office Visit [facility] [address] [place] [address] Ludy Jacobs CRNP [address] [place] [address] 02/13/2025 3:30 PM EDT Telemedicine Care at Home [address] [place] [address] Lulu Yee PA-C [address] [place], [place] [id number] Scheduled Procedures Name Priority Associated Diagnoses Date/Ti me COLONOSCOPY FLEXIBLE PROXIMAL DIAGNOSTIC Recall History of colon polyps Health Maintenance Due Date Last Done Comments Alpha-1 Antitrypsin 1982 HPV/Co-Test 1994 Cologuard 2009 Fecal Occult Blood Test 2009 Sigmoidoscopy 2009 Zoster Vaccines (2 of 2) 03/06/2021 01/09/2021 CKD PHOS USE SMARTSET 51238 03/29/2022 03/29/2021, 0 03/28/2021 Albumin/Creatinine Ratio 09/29/2023 09/29/2022, 050 03/2021 Mammogram 03/02/2024 03/02/2023, 02/21, 11/04/2016, Additional history exists COVID-19 Vaccine ( season) 2024 10/21/2023, 09/26/2022, 09/26/2022, Additional history exists Cervical Cancer Screening 12/04/2024 Pap Smear 12/04/2024 12/04/2021, 02/21, 03/03/2016, Additional history exists GFR 01/30/2025 08/02/2024, 06/0 04/2024, 04/05/2024, Additional history exists CKD HGB USE SMARTSET 74812 08/02/202508/02, 08/02/2024, 04/28/2024, Additional history exists O2 [...] Agents on File Name Relationship Healthcare Agent [facility] p Communication Lopez Santiago Spouse First Alternate Health Care Agent [place] Adult Child Health Care Agent Care Teams Coal Trammer Relationship Specialty Start Date End Date Ludy Jacobs CRNP [address] [place] [address] PCP - General Nurse Practitioner 04/20/24 documented as of this encounter
--- OUTSIDE RECORDS SUMMARY | 2024-11-11 11:22 | External Medical Summary | Summary of Care ---
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 Name Role Phone Ludy Jacobs Primary Care Provider Reason for Visit * Reason Onset Date Comments Advice 11/10/2024 Encounter Details Date Type Department Care Team (Late st Contact Info) Description 11/10/2024 Telephone Family Practice [facility] [address] [place] [id number] Ludy Jacobs CRNP [address] [place] [address] Advice Allergies Active Allergy Reactions Criticality Noted Date Comments Adhesive Tape 10/12/2019 Other reaction(s): BANDAIDS SKIN ABRASION Colchicine 05/08/2022 N/v/d Rosuvastatin 04/02/2021 Went into kidney failure Demerol 08/11/2012 Depression Ibuprofen 04/02/2021 Meperidine And Related 09/28/2002 depression Nsaids 04/02/2021 Sulfa Antibiotics Rash 07/09/2001 Ketorolac Tromethamine Medium 04/04/2021 documented as of this encounter (statuses as of 11/10/2024) Medications VALVED HOLDING CHAMBER DEVIIndications:CO PD with [...] Each 07/24/20 22 Active Full Kit Nebulizer SetIndications:FLAT DRIER D, group C, 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 [...] Tablet Extended Release 24 Hour (toPROL XL)Indications:Old ME (myocardial infarction) TAKE 1 AND 1/2 TABLETS [...] mgIndications:COPD, group D, 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 ([facility]) 2.5 mg NEBULIZER ONCE PRN 04/28/2024 04/28/2025 Acti ve documented as of this encounter (statuses as of 11/10/2024) Active Problems Problem Noted Date Diagnosed Date [...] noted above Atherosclerotic heart diseas e of [place] coronary artery with other forms of angina [...] (05/30/2022 4:32 PM EDT): Appointment scheduled with [facility] pain clinic [place] 07/02. Statin intolerance 01/24/2022 Osteopenia 01/08/2022 LYNDON [...] use aero chamber. Test performed by Flex TACK MAKER CPFT Circadian rhythm sleep disorder 09/17/2018 Nocturnal hypoxemia due to emphysema 07/30/2018 Adjustment disorder with mixed anxiety and depre ssed mood 07/04/2018 TERMINATED MEDICATION USAGE AGREEMENT 06/03/2018 Dupuytren's contracture of left hand 02/01/2018 Mixed incontinence urge and stress (male)(female ) 03/20/2017 Vitamin D deficiency 03/03/2016 Overview (03/03/2016): March 2015 = 13. Took high dose replacement. Due to repeat. Coronary artery disease invo lving [place] coronary artery of [place] heart without angina pectoris 11/12/2015 Assessment & Plan (01/22/2023 12:36 PM EST): Stable no angina -continue ASA, metoprolol xl, repatha. Can't tolerate delgado d/t low bp Dyslipidemia, goal LDL below 70 11/12/2015 Sicca syndrome 12/29/2014 Acquired hypothyroidism 12/29/2014 Assessment & Plan (01/22/2023 12:45 PM EST): Continue synthroid Old ME (myocardial infarction) 11/01/2013 Assessment & Plan (05/30/2022 [...] as of this encounter (statuses as of 11/10/2024) Resolved Problems Problem Noted Date Diagnosed Date [...] use aero chamber. Test performed by Flex T[employer] MA[employer] CPFT Assessment & Plan (05/30/2022 4:27 PM [...] use aero chamber. Test performed by Flex TACK MAKER CPFT COPD, group B, by GOLD 2017 [...] moderate 04/07/2012 10/05/2012 Overview (04/07/2012): PFT 03/2008 [facility] COPD, SEVERE 04/07/2012 05/04/2019 Overview: PER COPD PROTOCOL #24. PFT 03/2008 [facility] LAST PFT -06/07/12 Gastroesophageal reflux dise ase with esophagitis 04/30/2009 01/14/2022 Overview (05/15/2009): mild ADVANCE DIRECTIVE INFORMATION 12/02/2008 09/26/2024 Overview (12/02/2008): No, Advance Directive brochure offered , patient declined. COPD with emphysema 10/05/20 12 documented as of this encounter (statuses as of 11/10/2024) Immunizations Name Administration Dates Next Due COVID-19 mRNA, LNP-s, No Pre serve, 2-Dose Series (Szl.it) 09/26/2022,11/18/2021,04/04/2021,02/28 COVID-19, MRNA-LNP, PF, 30 M CG/0.3 mL, 12 YRS AND ABOVE, IM ([employer]van[employer]) 10/21/2023 Covid-19, Mrna, Lnp-s, Pf, B ivalent, [...] 09/27/2024 Does the household have a re lar source of income? (Household - for ages [...] Valentino Child RN documented in this encounter Miscellaneous Notes * Telephone Encounter - Ludy Jacobs CRNP - 11/10/2024 4:15 PM EST came for his appt today. Notes patient did not come for hers because she can not get out ofbed. Unable to eat much and not drinking for days. Very sob. Recommend they call 911 to transport patient to hospital. Patient and daughter agree with plan of care. Marli, MSN, [facility] documented in this encounter Plan of Treatment Upcoming Encounters Date Type Department Care Team (Late st Contact Info) Description 11/15/2024 8:00 AM EST Scheduled Telephone Care Coordination and Integration [address] [place] [address] Lulu Umaña, [facility] Financial Quantitative Analyst [address] [place] [address] 11/22/2024 2:30 PM EST Telemedicine Cardiology [facility], [place] [address] [place] [address] [place], Pharmacist Cardiology [facility] [address] [place] [address] 02/13/2025 3:30 PM EDT Telemedicine Care at Home [address] [place] [address] Lulu Yee PA-C [address] [place] [address] Scheduled Procedures Name Priority Associated Diagnoses Date/Ti me COLONOSCOPY FLEXIBLE PROXIMAL DIAGNOSTIC Recall History of colon polyps Health Maintenance Due Date Last Done Comments Alpha-1 Antitrypsin 1982 HPV/Co-Test 1994 Cologuard 2009 Fecal Occult Blood Test 2009 Sigmoidoscopy 2009 Zoster Vaccines (2 of 2) 03/06/2021 01/09/2021 CKD PHOS USE SMARTSET [id number] 03/29/2022 03/29/2021, 0 03/28/2021 Albumin/Creatinine Ratio 09/29/2023 09/29/2022, 05/0 03/2021 Mammogram 03/02/2024 03/02/2023, 02/21, 11/04/2016, Additional history exists COVID-19 Vaccine ( season) 2024 10/21/2023, 09/26/2022, 09/26/2022, Additional history exists Cervical Cancer Screening 12/04/2024 Pap Smear 12/04/2024 12/04/2021, 02/21, 03/03/2016, Additional history exists GFR 01/30/2025 08/02/2024, 06/0 04/2024, 04/05/2024, Additional history exists CKD HGB USE SMARTSET 78646 08/02/202508/02, 08/02/2024, 04/28/2024, Additional history exists O2 [...] [place] Spouse First Alternate Health Care Agent [place] Adult Child Health Care Agent Care Teams Railroad Car Repair Supervisor Relationship Specialty Start Date End Date Ludy Jacobs CRNP [address] [place] [address] PCP - General Nurse Practitioner 04/20/24 documented as of this encounter
--- NOTE | 2024-11-11 14:11 | Hospitalist Progress Note ---
Date of Service November 11, 2024 Assessment & Plan (1) COPD exacerbation: Plan: 59-year-old female with past med history significant for chronic respiratory failure using oxygen as needed 2 L, COPD, hypothyroidism, hyperlipidemia, lung nodules, history of CAD status post stent, chronic combined systolic and diastolic CHF, CKD stage III, cerebellar hemangioma, hypertension, moderate mitral regurgitation, irritable bowel syndrome with constipation, gastroparesis, sicca syndrome, diverticulosis, degenerative disease, reflux sympathetic dystrophy, depression, generalized anxiety disorder, PTSD, statin intolerance, presents with shortness of breath and cough going on for last few days. Patient was admitted last last month for COPD exacerbation. After discharge she had appointments to follow-up with PCP and pulmonary but she did not followed up.Patient reported that the appointment were canceled and she had no knowledge of who canceled the appointment. COPD exacerbation No leukocytosis Chest x-ray - no infiltrates Respiratory BioFire okay Received nebs in the ER continue with IV Solu-Medrol, nebs [id number] and as needed Continue home inhalers Monitoring telemetry Close monitor History of hypotension On midodrine History of CAD status post stent Bare-metal stents x 1 RCA 2010 On beta-lynne and aspirin and Repatha History of right cerebellar cavernoma High risk of bleeding to avoid antiplatelet/anticoagulation as per cardiology notes As per cardiology notes it has been considered that patient is high risk of bleeding and possible if hemorrhage occurred and was deemed high risk to proceed with ischemic workup and potential need for dual antiplatelet therapy ,if cardiac cath was deemed necessary medical management recommended. Also plan for repeat MRI but seems not done yet Chronic systolic and diastolic CHF Moderate mitral regurgitation EF 35 to 39% echo done on 07/28/2023 ef 55-60% on echo 10/13/24 On metoprolol succinate, Jardiance and Entresto Monitor for volume overload GERD On omeprazole Hyperlipidemia On Repatha Hypothyroidism On Synthyroid Depression and anxiety On Paxil and Ativan as needed Lung nodule 1.6 cm spiculated nodule left upper lobe anterior segment on CAT scan done last admit in September 2024 which seemed unchanged from prior scan. I had discussed with patient last admission and again this admission regarding following up with pulmonology for workup. She verbalized understanding but has not gone to the appointment yet. DVT prophylaxis Lovenox Disposition Med/telemetry Full code. Please note the above document was generated using voice recognition software. It may contain grammatical, syntax or spelling errors. Any formal questions or concerns about the content, text or information contained within the body of this dictation should be directly addressed to the provider for clarification Admission and Anticipated Discharge Date Admission Date: November 11, 2024 Subjective Patient seen and examined at bedside. Comfortable; not in distress. Denies fever, chills, chest pain, shortness of breath, abdominal pain or urinary symptoms. Review of Systems Review of Systems: All systems reviewed & are unremarkable except as noted in Subjective Physical Exam Physical Exam: Constitutional: WD/WN, vitals as above, NAD, sitting up in bed, pleasant, conversing easily Respiratory: Bilateral clear breath sound Cardiovascular: RRR, no murmur, no edema Vessels: no JVD or carotid bruit Abdomen: normal bowel sounds, soft, nontender, no hepatosplenomegaly Musculoskeletal: no cyanosis or clubbing, extremities motor strength 5/5 Skin: no rashes, warm and dry normal turgor Neurologic: PERRL, EOMI, accommodation nl, no face palsy, no dysarthria CN's II- XI intact bilaterally and moves all extremities Psychiatric: A+Ox3, euthymic affect Results & Data Results & Data Vital Signs (Past 12 Hours) Vital Signs Temp Pulse Pulse Pulse Resp BP BP 11/11/24 12:59 36.9 C 87 19 99/64 L 11/11/24 12:38 11/11/24 11:47 87 18 102/69 11/11/24 10:08 86 18 11/11/24 09:11 97 H 20 121/82 11/11/24 09:03 11/11/24 07:08 96 H 11/11/24 07:04 95 H 20 124/93 11/11/24 06:55 98 H 18 11/11/24 06:45 97 H 20 129/81 11/11/24 03:21 11/11/24 02:41 116 H 22 137/87 11/11/24 02:41 107 H 20 137/87 Pulse Ox Pulse Ox O2 Del Method O2 Del Method 11/11/24 12:59 95 Room Air 11/11/24 12:38 Room Air, Nasal Cannula 11/11/24 11:47 96 Room Air 11/11/24 10:08 95 Room Air 11/11/24 09:11 94 Room Air 12/20/24 09:03 Room Air 11/11/24 07:08 11/11/24 07:04 98 Room Air 11/11/24 06:55 96 Room Air 11/11/24 06:45 96 11/11/24 03:21 92 Room Air 11/11/24 02:41 95 11/11/24 02:41 94 Room Air
[2024-11-11] MEDS: guaiFENesin/CODEINE 100MG/10MG 5ML UDC PO PRN (15:16)
[2024-11-11 17:25] LABS: Appearance Urine Clear (Clear); Bilirubin Urine Negative (Negative); Blood Urine Negative (Negative); Color Urine Yellow; Glucose Urine UA 3+ (Negative); Ketones Urine Trace (Negative); Leukocyte Esterase Urine Negative (Negative); Nitrite Urine Negative (Negative); Protein Urine Negative (Negative); Specific Gravity Urine 1.037 (1.000-1.030); Urobilinogen Urine Negative (Negative); pH Urine 5.5 (4.5-7.5)
[2024-11-11] MEDS: PARoxetine HCL 20 MG TAB PO SCH (20:10)
[2024-11-11] MEDS: METOPROLOL SUCC 25MG EXT REL TAB PO SCH (20:10)
--- NOTE | 2024-11-11 21:38 | Electrocardiogram Report ---
Test Reason : Blood Pressure : */* mmHG Vent. Rate : 108 BPM Atrial Rate : 108 BPM P-R Int : 156 ms QRS Dur : 94 ms QT Int : 344 ms P-R-T Axes : 88 85 90 degrees QTcB Int : 460 ms Sinus tachycardia with occasional Premature ventricular complexes Right atrial enlargement Possible Anterior infarct , age undetermined Abnormal ECG When compared with ECG of 15-Oct-2024 05:55, Premature ventricular complexes are now Present Borderline criteria for Anterior infarct are now Present Nonspecific T wave abnormality now evident in Lateral leads Confirmed by Tyrese Jackson ([id number]) on 11/11/2024 9:38:11 PM Referred By: REFERRED SELF Confirmed By: Tyrese Jackson
--- NOTE | 2024-11-12 08:19 | Hospitalist Progress Note ---
Date of Service November 12, 2024 Assessment & Plan (1) COPD exacerbation: Plan: 59-year-old female with past med history significant for chronic respiratory failure using oxygen as needed 2 L, COPD, hypothyroidism, hyperlipidemia, lung nodules, history of CAD status post stent, chronic combined systolic and diastolic CHF, CKD stage III, cerebellar hemangioma, hypertension, moderate mitral regurgitation, irritable bowel syndrome with constipation, gastroparesis, sicca syndrome, diverticulosis, degenerative disease, reflux sympathetic dystrophy, depression, generalized anxiety disorder, PTSD, statin intolerance, presents with shortness of breath and cough going on for last few days. Patient was admitted last last month for COPD exacerbation. After discharge she had appointments to follow-up with PCP and pulmonary but she did not followed up.Patient reported that the appointment were canceled and she had no knowledge of who canceled the appointment. COPD exacerbation No leukocytosis Chest x-ray - no infiltrates Respiratory BioFire negative Received nebs in the ER continue with IV Solu-Medrol, nebs [id number] and as needed Continue home inhalers Monitoring telemetry Close monitor History of hypotension On midodrine History of CAD status post stent Bare-metal stents x 1 RCA 2010 On beta-lynne and aspirin and Repatha History of right cerebellar cavernoma High risk of bleeding to avoid antiplatelet/anticoagulation as per cardiology notes As per cardiology notes it has been considered that patient is high risk of bleeding and possible if hemorrhage occurred and was deemed high risk to proceed with ischemic workup and potential need for dual antiplatelet therapy ,if cardiac cath was deemed necessary medical management recommended. Also plan for repeat MRI but seems not done yet Chronic systolic and diastolic CHF Moderate mitral regurgitation EF 35 to 39% echo done on 07/28/2023 ef 55-60% on echo 10/13/24 On metoprolol succinate, Jardiance and Entresto Monitor for volume overload GERD On omeprazole Hyperlipidemia On Repatha Hypothyroidism On Synthyroid Depression and anxiety On Paxil and Ativan as needed Lung nodule 1.6 cm spiculated nodule left upper lobe anterior segment on CAT scan done last admit in September 2024 which seemed unchanged from prior scan. I had discussed with patient last admission and again this admission regarding following up with pulmonology for workup. She verbalized understanding but has not gone to the appointment yet. DVT prophylaxis Lovenox Disposition Med/telemetry Full code. Time spent evaluating patient, direct bedside care, chart review, placing orders, interpretation of diagnostic studies, discussion with consultants, patient, and family members, as well as other required patient management activities is 50 minutes Please note the above document was generated using voice recognition software. It may contain grammatical, syntax or spelling errors. Any formal questions or concerns about the content, text or information contained within the body of this dictation should be directly addressed to the provider for clarification Admission and Anticipated Discharge Date Admission Date: November 11, 2024 Subjective Patient seen and examined at bedside. Comfortable; not in distress. Denies fever, chills, chest pain, shortness of breath, abdominal pain or urinary symptoms. No significant overnight events Review of Systems Review of Systems: All systems reviewed & are unremarkable except as noted in Subjective Physical Exam Physical Exam: Constitutional: WD/WN, vitals as above, NAD, sitting up in bed, pleasant, conversing easily Respiratory: Bilateral clear breath sound Cardiovascular: RRR, no murmur, no edema Vessels: no JVD or carotid bruit Abdomen: normal bowel sounds, soft, nontender, no hepatosplenomegaly Musculoskeletal: no cyanosis or clubbing, extremities motor strength 5/5 Skin: no rashes, warm and dry normal turgor Neurologic: PERRL, EOMI, accommodation nl, no face palsy, no dysarthria CN's II- XI intact bilaterally and moves all extremities Psychiatric: A+Ox3, euthymic affect Results & Data Results & Data Vital Signs (Past 12 Hours) Vital Signs Temp Pulse Pulse Pulse Resp BP Pulse Ox 11/12/24 08:00 36.8 C 85 18 87/52 L 94 11/12/24 07:40 80 11/12/24 07:14 84 18 94 11/12/24 02:46 36.6 C 75 18 106/78 94 11/11/24 23:00 85 11/11/24 22:04 36.4 C L 79 18 104/69 100 11/11/24 21:45 11/11/24 21:21 73 17 97 O2 Del Method 11/12/24 08:00 Room Air 11/12/24 07:40 11/12/24 07:14 Room Air 11/12/24 02:46 Room Air 11/11/24 23:00 11/11/24 22:04 Room Air 11/11/24 21:45 Room Air 11/11/24 21:21 Room Air
[2024-11-12] MEDS: oxyCODONE HCL IR 5 MG TAB (IMMEDIATE RELEASE) PO PRN (18:49)
[2024-11-12 22:19] VITALS: TEMP 98.1
[2024-11-13 06:44] LABS: Basophils # (auto) 0.01 K/uL (0.00-0.20); Basophils % (auto) 0.1 %; Eosinophils # (auto) 0.01 K/uL (0.00-0.50); Eosinophils % (auto) 0.1 %; Hematocrit (blood only) 34.3 % (37.0-47.0); Hemoglobin 11.6 g/dl (12.0-16.0); Immature Granulocytes # (auto) 0.09 K/uL (0.01-0.20); Immature Granulocytes % (auto) 0.7 %; Lymphocytes # (auto) 0.95 K/uL (1.20-3.40); Lymphocytes % (auto) 7.8 %; Mean Corpuscular Hemoglobin 32.9 pg (25.0-34.0); Mean Corpuscular Hgb Conc 33.8 g/dL (32.0-36.0); Mean Corpuscular Volume 97.2 fL (80.0-100.0); Mean Platelet Volume 10.4 fL (9.4-12.4); Monocytes % (auto) 3.3 %; Neutrophils # (auto) 10.72 K/uL (1.40-6.50); Platelet Count 324 K/uL (130-400); RDW Coefficient of Variation 12.6 % (11.5-14.5); RDW Standard Deviation 44.5 fL (36.4-46.3); Red Blood Count 3.53 M/uL (4.20-5.40); White Blood Count 12.18 K/ul (4.8-10.8)
[2024-11-13 07:08] LABS: BUN Creatinine Ratio 21.6 (10-20); Calcium 8.6 mg/dl (8.6-10.3); Creatinine Clr Calc Pharmacy 38.7 ml/min; Potassium 3.8 mmol/L (3.5-5.1)
--- NOTE | 2024-11-13 08:20 | Hospitalist Progress Note ---
Date of Service November 13, 2024 Assessment & Plan (1) COPD exacerbation: Plan: 59-year-old female with past med history significant for chronic respiratory failure using oxygen as needed 2 L, COPD, hypothyroidism, hyperlipidemia, lung nodules, history of CAD status post stent, chronic combined systolic and diastolic CHF, CKD stage III, cerebellar hemangioma, hypertension, moderate mitral regurgitation, irritable bowel syndrome with constipation, gastroparesis, sicca syndrome, diverticulosis, degenerative disease, reflux sympathetic dystrophy, depression, generalized anxiety disorder, PTSD, statin intolerance, presents with shortness of breath and cough going on for last few days. Patient was admitted last last month for COPD exacerbation. After discharge she had appointments to follow-up with PCP and pulmonary but she did not followed up.Patient reported that the appointment were canceled and she had no knowledge of who canceled the appointment. COPD exacerbation No leukocytosis Chest x-ray - no infiltrates Respiratory BioFire negative Received nebs in the ER continue with IV Solu-Medrol, nebs [id number] and as needed Continue home inhalers Monitoring telemetry Close monitor History of hypotension On midodrine History of CAD status post stent Bare-metal stents x 1 RCA 2010 On beta-lynne and aspirin and Repatha History of right cerebellar cavernoma High risk of bleeding to avoid antiplatelet/anticoagulation as per cardiology notes As per cardiology notes it has been considered that patient is high risk of bleeding and possible if hemorrhage occurred and was deemed high risk to proceed with ischemic workup and potential need for dual antiplatelet therapy ,if cardiac cath was deemed necessary medical management recommended. Also plan for repeat MRI but seems not done yet Chronic systolic and diastolic CHF Moderate mitral regurgitation EF 35 to 39% echo done on 07/28/2023 ef 55-60% on echo 10/13/24 On metoprolol succinate, Jardiance and Entresto Monitor for volume overload GERD On omeprazole Hyperlipidemia On Repatha Hypothyroidism On Synthyroid Depression and anxiety On Paxil and Ativan as needed Lung nodule 1.6 cm spiculated nodule left upper lobe anterior segment on CAT scan done last admit in September 2024 which seemed unchanged from prior scan. I had discussed with patient last admission and again this admission regarding following up with pulmonology for workup. She verbalized understanding but has not gone to the appointment yet. DVT prophylaxis Lovenox Disposition Med/telemetry Full code. Time spent evaluating patient, direct bedside care, chart review, placing orders, interpretation of diagnostic studies, discussion with consultants, patient, and family members, as well as other required patient management activities is 50 minutes Please note the above document was generated using voice recognition software. It may contain grammatical, syntax or spelling errors. Any formal questions or concerns about the content, text or information contained within the body of this dictation should be directly addressed to the provider for clarification Admission and Anticipated Discharge Date Admission Date: November 11, 2024 Subjective Patient seen and examined at bedside. Comfortable; not in distress. Denies fever, chills, chest pain, shortness of breath, abdominal pain or urinary symptoms. No significant overnight events Physical Exam Physical Exam: Constitutional: WD/WN, vitals as above, NAD, sitting up in bed, pleasant, conversing easily Respiratory: Bilateral clear breath sound Cardiovascular: RRR, no murmur, no edema Vessels: no JVD or carotid bruit Abdomen: normal bowel sounds, soft, nontender, no hepatosplenomegaly Musculoskeletal: no cyanosis or clubbing, extremities motor strength 5/5 Skin: no rashes, warm and dry normal turgor Neurologic: PERRL, EOMI, accommodation nl, no face palsy, no dysarthria CN's II- XI intact bilaterally and moves all extremities Psychiatric: A+Ox3, euthymic affect Results & Data Results & Data Vital Signs (Past 12 Hours) Vital Signs Temp Pulse Pulse Resp BP Pulse Ox O2 Del Method 11/13/24 07:49 36.7 C 83 17 104/74 94 Room Air 11/13/24 07:07 70 16 92 Room Air 11/13/24 04:30 36.7 C 92 H 18 105/65 93 Room Air 11/12/24 23:00 65 11/12/24 22:50 Room Air 11/12/24 22:16 36.7 C 80 20 119/79 94 Room Air
[2024-11-13] MEDS: guaiFENesin/DEXTROM SYRUP 100MG/10MG 5ML UDC PO PRN (09:46)
[2024-11-13] MEDS: METHOCARBAMOL 500 MG TABLET PO PRN (09:48)
[2024-11-13] MEDS: AZITHROMYCIN 250 MG TAB PO SCH (09:50)
--- NOTE | 2024-11-13 10:44 | Discharge Summary ---
Date of Service November 13, 2024 Admission HPI Per Admitting Provider 59-year-old female with past med history significant for chronic respiratory failure using oxygen as needed 2 L, COPD, hypothyroidism, hyperlipidemia, lung nodules, history of CAD status post stent, chronic combined systolic and diastolic CHF, CKD stage III, cerebellar hemangioma, hypertension, moderate mitral regurgitation, irritable bowel syndrome with constipation, gastroparesis, sicca syndrome, diverticulosis, degenerative disease, reflux sympathetic dystrophy, depression, generalized anxiety disorder, PTSD, statin intolerance, presents with shortness of breath and cough going on for last few days. She is coughing and bringing up phlegm yellow-green color. Walking short distance making her short of breath. Denies any fevers. No chest pain. No nausea or vomiting. No abdominal pain. Normal bowel and bladder movements. Appetite is down. No difficulty swallowing. Vision is okay. Has some runny eyes. No runny nose or sore throat. Complaining of pain in lower extremities which she says is chronic. Hemodynamics are okay currently. Patient was admitted last last month for COPD exacerbation. After discharge she had appointments to follow-up with PCP and pulmonary but she did not followed up. Past medical history. As mentioned above. Past surgical history. . Colonoscopy. Conization of cervix. EGD. EGD with biopsy. Injection of lumbosacral spine. Diagnostic laparoscopy. Ligation of oviducts. Tonsillectomy. Excision of left wrist ganglion. Repair of incisional hernia. Thoracotomy with repair of lung in 1988 and 1990 secondary to pneumothorax. Social history. . Smokes half pack a day for 45 years. Alcohol rarely. No drug use. Social history. Paternal grandfather had cancer. Aunt had colon cancer. Father had heart attack. Stroke. Mother had rheumatoid arthritis. Sister had stroke. Sister has diabetes. Brother has hypertension, diabetes. Admission Exam Per Admitting Provider General- Not in acute distress Head- atraumatic Eyes- PERRL, EOMI, anicteric ENT- oropharynx clear Neck- supple, no JVD. Lungs- diminished bilateral breath sounds, mild occasional wheezing Heart- regular rate and rhythm; no murmur, no gallop. Abdomen- normal bowel sounds, soft, nontender, no distension Extremities- no pretibial edema, no erythema seen Neuro- alert, oriented PERRL, no facial palsy; no dysarthria; moves extremities Principal Diagnosis COPD exacerbation Discharge Exam Constitutional: WD/WN, vitals as above, NAD, sitting up in bed, pleasant, conversing easily Respiratory: Bilateral clear breath sound Cardiovascular: RRR, no murmur, no edema Vessels: no JVD or carotid bruit Abdomen: normal bowel sounds, soft, nontender, no hepatosplenomegaly Musculoskeletal: no cyanosis or clubbing, extremities motor strength 5/5 Skin: no rashes, warm and dry normal turgor Neurologic: PERRL, EOMI, accommodation nl, no face palsy, no dysarthria CN's II- XI intact bilaterally and moves all extremities Psychiatric: A+Ox3, euthymic affect Discharge Data Allergies Allergy/AdvReac Type Severity Reaction Status Date / Time tramadol Allergy Severe Seizure Verified 10/13/24 00:02 adhesive Allergy Mild BANDAIDS : Verified 10/13/24 00:02 SKIN ABRASION ketorolac [From Toradol] Allergy Mild HX KIDNEY Verified 10/13/24 00:02 FAILURE adhesive tape Allergy Unknown SKIN TEARS Verified 10/13/24 00:02 ibuprofen Allergy Unknown HX KIDNEY Verified 10/13/24 00:02 FAILURE NSAIDS (Non-Steroidal Allergy Unknown HX KIDNEY Verified 10/13/24 00:02 Anti-Inflamma FAILURE Sulfa (Sulfonamide Allergy Unknown HIVES Verified 10/13/24 00:02 Antibiotics) meperidine AdvReac Unknown NOT A Verified 10/13/24 00:02 VERIFIED RXN: MOOD SWINGS prednisone AdvReac Unknown Patient Verified 10/13/24 00:02 Reports Contraindication in Kidney Failure/SEE NOTES rosuvastatin [From Crestor] AdvReac Unknown Weakness, Verified 10/13/24 00:02 RHABDOMYLOSIS, ACUTE RENAL FAILURE Consultations 11/11/24 00:27 ED Decision to Admit Stat Hospital Course (1) COPD exacerbation: 59-year-old female with past med history significant for chronic respiratory failure using oxygen as needed 2 L, COPD, hypothyroidism, hyperlipidemia, lung nodules, history of CAD status post stent, chronic combined systolic and diastolic CHF, CKD stage III, cerebellar hemangioma, hypertension, moderate mitral regurgitation, irritable bowel syndrome with constipation, gastroparesis, sicca syndrome, diverticulosis, degenerative disease, reflux sympathetic dystrophy, depression, generalized anxiety disorder, PTSD, statin intolerance, presents with shortness of breath and cough going on for last few days. Patient was admitted last last month for COPD exacerbation. After discharge she had appointments to follow-up with PCP and pulmonary but she did not followed up.Patient reported that the appointment were canceled and she had no knowledge of who canceled the appointment. Patient was admitted for COPD exacerbation. Chest x-ray did not show any acute infiltrate Respiratory BioFire is negative Patient did not have any leukocytosis. Patient was admitted to the hospital; was treated with nebs [id number], IV steroids and azithromycin. I discussed with patient regarding following up with her primary care doctor for evaluation of the lung nodule seen in her CT scan last admission. She verbalized understanding and states she will follow-up after discharge. Patient had appointment set up for her last admission which she did not follow-up. Multiple discussion has been done during last admission and this admission about trial of oral steroid which will prevent hospitalization; patient is still against any trial of oral steroid. I encouraged ongoing discussion with her primary care doctor as outpatient. Please note the above document was generated using voice recognition software. It may contain grammatical, syntax or spelling errors. Any formal questions or concerns about the content, text or information contained within the body of this dictation should be directly addressed to the provider for clarification Total Time Total Time Spent Total Time Spent (In Minutes): 35 Total Time Includes: Examination of the Patient, Discharge Planning, Medication Reconciliation, Communication With Other Providers and Other Discharge Plan Discharge Items Patient Disposition: Home - Self-Care Reason For Visit: COPD EXACERBAATION,TACHYCARDIA Discharge Diagnosis: COPD excerebation Activity: Resume your previous activity Non-emergency contact: Primary Care Provider Call non-emergency contact if: you have any medication questions and your symptoms worsen Follow-up/Referrals: Ludy Jacobs CRNP [Primary Care Provider] - Diet: Regular Addtl Attending Provider Instructions: You were admitted to the hospital due to COPD exacerbation. You are treated with [id number] DuoNeb during the hospitalization and steroid. You are prescribed azithromycin to be taken once a day for 2 more days. Please follow-up with your primary care doctor and lung doctor as we discussed. Please discuss workup for the lung nodule seen in the CT during your last hospitalization. Pending Studies at Discharge: No Stand-Alone Forms: My [employer], Smoking Cessation Medications and DC Order Prescriptions: New azithromycin 500 mg tablet 500 mg PO DAILY 2 Days Qty: 2 0RF Continued methocarbamol 500 mg tablet 500 mg PO QID PRN (Reason: muscle spasms) fluticasone propion-salmeterol 250-50 mcg/dose blister with device 1 inh INHALATION BID ipratropium-albuterol 0.5 mg-3 mg(2.5 mg base)/3 mL solution for nebulization 3 ml INHALATION QID PRN (Reason: Shortness Of Breath Or Wheezing) metoprolol succinate 50 mg tablet extended release 24 hr 50 mg PO UD Rx Instructions: 50mg in am and 25mg q hs ondansetron HCl 4 mg tablet 4 mg PO TID PRN (Reason: Nausea And Vomiting) midodrine 5 mg tablet 5 mg PO UD Rx Instructions: 5mg PO TID at 8AM, NOON AND 5PM aspirin [Aspir-81] 81 mg Tablet,Delayed Release (Dr/Ec) 81 mg PO DAILY levothyroxine [Synthroid] 75 mcg tablet 75 mcg PO DAILY lorazepam 0.5 mg tablet 0.5 mg PO DAILY PRN (Reason: Anxiety) omeprazole 20 mg capsule,delayed release(DR/EC) 20 mg PO DAILY folic acid 1 mg tablet 1 mg PO DAILY albuterol sulfate 90 mcg/actuation HFA aerosol inhaler 2 puff INHALATION Q4H PRN (Reason: Shortness Of Breath Or Wheezing) paroxetine HCl 40 mg tablet 40 mg PO HS oxycodone 5 mg tablet 5 mg PO Q4H PRN (Reason: Pain, Severe) pregabalin 75 mg capsule 75 mg PO TID Jardiance 10 mg tablet 10 mg PO DAILY sacubitril-valsartan [Entresto] 24-26 mg tablet 1 tab PO BID Repatha SureClick 140 mg/mL pen injector 140 mg SUBCUT UD Rx Instructions: every 2 weeks Discharge Orders: Discharge Order (Routine); Ordered 11/13/24 Ordered By: Marcell Becker Admission Data Admit Date/Time: 11/11/24 00:56 Attending Provider: Marcell Becker Admit Provider: Micky Owens Primary Care Provider: Ludy Jacobs Other Providers: Micky Owens
[2024-11-13] MEDS: LORazepam 0.5 MG TAB PO PRN (11:03)
[2024-11-13 11:10] VITALS: BP 123/81; RESP 18; O2SAT 98
[2024-11-13 11:41] VITALS: PULSE 59
== END 2024-11-13 12:55 | disposition home or self-care (01) | DRG 191 ==
LOC: ED 19:55 → SUATTDRO 11-11 00:56 → EDINP 11-11 00:56 → 2E 11-11 03:21

== ENCOUNTER 2025-01-15 19:35 | Inpatient (IN) ==
--- OUTSIDE RECORDS SUMMARY | 2025-01-15 19:41 | External Medical Summary | Summary of Care ---
Author Name Unknown Organization [facility] Address [address] [place] [address] Phone [phone] Care Team Providers Care Director Athletic Name Role Phone Ludy Jacobs Primary Care Provider Reason for Visit * Reason Onset Date Comments [facility]: Acute 01/15/2025 Encounter Details Date Type Department Care Team (Late st Contact Info) Description 01/15/2025 6:25 PM EST Scheduled Telephone [facility], [facility] [address] [place] [address] [facility], Nurse [facility] [address] [place] [address] Allergies Active Allergy Reactions Criticality Noted Date Comments Adhesive Tape 10/12/2019 Other reaction(s): BANDAIDS SKIN ABRASION Colchicine 05/08/2022 N/v/d Rosuvastatin 04/02/2021 Went into kidney failure Demerol 08/11/2012 Depression Ibuprofen 04/02/2021 Meperidine And Related 09/28/2002 depression Nsaids 04/02/2021 Prednisone 10/13/2024 Other Reaction(s): Patient Reports Contraindication in Kidney Failure/SEE NOTES Sulfa Antibiotics Rash 07/09/2001 Ketorolac Tromethamine Medium 04/04/2021 documented as of this encounter (statuses as of 01/15/2025) Medications VALVED HOLDING CHAMBER DEVIIndications:CO PD with emphysema ([facility]) to be used with inhalers as instructed 1 Device 2 10/12/20 12 Active Additional Information Patient not taking.Informant: Transferring Facility Documents, Reported on 12/05/2024 oxygen GAS 2 LPM via NC during hours of sleep 1 Each 03/16/20 18 Active Additional Information Patient taking differently: 2 L/min(Oxygen), 2 LPM via NC all day and during hours, Informant: Transferring Facility Documents, Reported on 01/12/2025 Nebulizers (NEBULIZER COMPRESSOR) MISC Inhale via nebulizer. Along with supply . Use as directed. Dx code- J44.9 and J43.9 1 Each 10/05/20 18 Active aspirin enteric coated 81 MG TBEC Take 1 Tablet by mouth every morning. Active Acetaminophen 325 MG Oral Tablet (Tylenol) Take 1,000 mg by mouth every 8 hours as needed. Active Nebulizer DeviceIndications: COPD, group C, 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 ([facility]),Chronic hypoxemic respiratory failure ([facility]) Use with nebulized medications 1 Each 07/24/20 22 Active Full Kit Nebulizer SetIndications:INDIAN NANNY D, group C, 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 ([facility]),Chronic hypoxemic respiratory failure ([facility]) Use with nebulizer 1 Each 07/24/20 22 Active Syringe 25G X 1-1/2" 3 ML Use for intramuscular B12 injection 1 Each 10/02/20 22 Active Albuterol Sulfate (2.5 MG/3ML) 0.083% Inhalation Nebulization Solution (Proventil)Indicat ions:COPD, group D, 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 ([facility]) Inhale 1 Vial via nebulizer 4 times a day as needed for Wheezing. Use in place of rescue inhaler. 360 mL 2 12/24/19 23 Active Omeprazole 20 MG Oral Capsule Delayed Release (PriLOSEC)Indicati ons:Abdominal pain, epigastric TAKE 1 CAPSULE IN THE MORNING AND 1 CAPSULE BEFORE BEDTIME 60 Capsule 5 03/17/20 24 Active Folic Acid 1 MG Oral [...] 4 8:51 AM EST 05/04/20 24 Active Pregabalin 75 MG Oral Capsule (Lyrica)Indication s:Complex regional pain syndrome type 1 of left upper extremity Take 1 Capsule by mouth in the morning and 1 Capsule at noon and 1 Capsule before bedtime. 90 Capsule 5 06/20/20 24 Active Ipratropium-Albute rol 0.5-2.5 (3) MG/3ML Inhalation Solution (Duoneb) USE 1 AMPULE IN NEBULIZER 4 TIMES DAILY NEEDED FOR COUGH, SHORTNESS OF BREATH OR WHEEZING -USE IN PLACE OF RESCUE INHALER 360 mL 5 10/06/20 24 Active Metoprolol Succinate ER 50 MG Oral Tablet Extended Release 24 Hour (toPROL XL)Indications:Old AR (myocardial infarction) TAKE 1 AND 1/2 TABLETS BY MOUTH EVERY MORNING 135 Tablet 11/21/20 24 Active Methocarbamol 500 MG Oral Tablet (Robamol)Indicatio ns:Chronic pain syndrome Take 1 Tablet by mouth in the morning and 1 Tablet at noon and 1 Tablet before bedtime. 90 Tablet 12/09/19 25 Active Albuterol Sulfate HFA 108 (90 Base) MCG/ACT Inhalation Aerosol SolutionIndication s:COPD, group C, 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 ([facility]) Inhale 2 Puffs by mouth every 4 hrs as needed for Cough, Shortness of Breath or Withdrawal symptoms. 54 g 1 12/11/19 25 Active PARoxetine HCl 40 MG Oral Tablet (pAXil) Take 1 Tablet by mouth in the morning. 30 Tablet 12/15/19 25 Active predniSONE 5 MG Oral Tablet (Deltasone)Indicat ions:COPD, frequent exacerbations (HCC) Take 1 Tablet by mouth in the morning. As directed. 30 Tablet 1 12/31/19 25 Active LORazepam 0.5 MG Oral Tablet (Ativan) Take 1 Tablet by mouth daily as needed for Anxiety. You will need to be seen in order to get subsequent refills. 30 Tablet 12/30/19 25 Active Entresto 24-26 MG Oral Tablet (sacubitril-valsar barber 24-26 mg per tab)Indications:Ch ronic combined systolic and diastolic congestive heart failure (HCC),HFrEF (heart failure with reduced ejection fraction) (HCC) TAKE 1 TABLET BY MOUTH EVERY MORNING AND 1 TABLET BEFORE BEDTIME 180 Tablet 3 01/03/20 25 Active Empagliflozin 10 MG Oral Tablet (Jardiance)Indicat ions:Chronic combined systolic and diastolic congestive heart failure (HCC) Take 1 Tablet by mouth in the morning. 90 Tablet 3 01/06/20 25 Active Midodrine HCl 5 MG Oral Tablet (Proamatine)Indica tions:Chronic diastolic congestive heart failure (HCC) Take 1 Tablet by mouth in the morning and 1 Tablet at noon and 1 Tablet before bedtime. 270 Tablet 3 01/06/20 25 Active predniSONE 20 MG Oral Tablet (Deltasone) Take 2 Tablets by mouth in the morning for 5 days. 10 Tablet 01/12/20 25 025 Active Azithromycin 250 MG Oral Tablet (Zithromax) Take 2 tabs by mouth on the first day, then 1 tab daily on days two through five 6 Tablet 01/12/20 25 025 Active Fluticasone-Salmet bryant 500-50 MCG/ACT Inhalation Aerosol Powder Breath Activated (Advair Diskus) Inhale 1 Puff by mouth in the morning and 1 Puff before bedtime. 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 Statin intolerance 01/24/2022 Osteopenia 01/08/2022 LYNDON [...] use aero chamber. Test performed by Flex WINDOW GLASS CUTTER OFF CPFT Circadian rhythm sleep disorder 09/17/2018 [...] to repeat. Coronary artery disease invo lving lime coronary artery of lime heart without angina pectoris 11/12/2015 Assessment & Plan (01/22/2023 12:36 PM EST): Stable no angina -continue ASA, metoprolol xl, repatha. Can't tolerate delgado d/t low bp Dyslipidemia, goal LDL below 70 11/12/2015 Sicca syndrome 12/29/2014 Acquired hypothyroidism 12/29/2014 Assessment & Plan (01/22/2023 12:45 PM EST): Continue synthroid Old AR (myocardial infarction) 11/01/2013 Assessment & Plan (05/30/2022 [...] as of this encounter (statuses as of 01/15/2025) Resolved Problems Problem Noted Date Diagnosed Date [...] use aero chamber. Test performed by Flex WINDOW GLASS CUTTER OFF CPFT Assessment & Plan (05/30/2022 4:27 [...] use aero chamber. Test performed by Flex WINDOW GLASS CUTTER OFF CPFT COPD, group B, by GOLD [...] moderate 04/07/2012 10/05/2012 Overview (04/07/2012): PFT 03/2008 [facility] COPD, SEVERE 04/07/2012 05/04/2019 Overview: PER COPD PROTOCOL #24. PFT 03/2008 [facility] LAST PFT -06/07/12 Gastroesophageal reflux dise ase with esophagitis 04/30/2009 01/14/2022 Overview (05/15/2009): mild ADVANCE DIRECTIVE INFORMATION 12/02/2008 09/26/2024 Overview (12/02/2008): No, Advance Directive brochure offered , patient declined. COPD with emphysema 10/05/20 12 documented as of this encounter (statuses as of 01/15/2025) Immunizations Name Administration Dates Next Due COVID-19 mRNA, LNP-s, No Pre serve, 2-Dose Series ([employer]) 09/26/2022,11/18/2021,04/04/2021,02/28 COVID-19, MRNA-LNP, PF, 30 M CG/0.3 mL, 12 YRS AND ABOVE, IM (Condomani-Comirnaty) 10/21/2023 Covid-19, Mrna, Lnp-s, Pf, B ivalent, [...] Years Used Date Smoking Tobacco: Former Cigarettes 1 45 S tarted: 1978 Smokeless Tobacco: Never Comments:12/05/24 currently smoking 5 cig/day. Alcohol Use Standard Drinks/Week Comments Yes 0 [...] Date Recorded PHQ Adult Total Score 0 12/27/2024 Hunger Vital Sign Answer Date Recorded Within the past 12 months, y ou worried that your food would run out before you got the money to buy more. Never true 01/12/20 25 Within the past 12 months, t he food you bought just didn't last and you didn't have money to get more. Never true 01/12/2025 Childcare Answer Date Recorded Do you feel overwhelmed with taking care of a child, family member or friend? No 01/12/2025 Does your family need help f inding childcare? (Household - for ages 0-17 years) Not on file 01/12/2025 Clothing Answer Date Recorded Have you been unable to get clothing when it was really needed? No 01/12/2025 Is your family able to get c lothes or diapers when needed? (Household - for ages 0-17 years) Not on file 01/12/2025 Personal Safety Answer Date Recorded Do you feel unsafe or have concerns for your saf ety? No 01/12/2025 Do you have concerns for you r family's safety? (Household - for ages 0-17 years) Not on file 01/12/2025 Utilities Answer Date Recorded Do you have trouble paying y our heating, water, or electric bill? No 01/12/2025 Is your family able to pay t he heat, water, or electric bill? (Household - for ages 0-17 years) Not on file 01/12/2025 Does your family have access to good internet? (Household - for ages 0-17 years) Not on file 01/12/2025 Employment Status Answer Date Recorded Are you unemployed or without regular income? No 01/12/2025 Does the household have a re lar source of income? (Household - for ages 0-17 years) Not on file 01/12/2025 Social Connections Answer Date Recorded How often do you feel lonely or isolated from th ose around you? Never 01/12/2025 Financial Resource Strain Answer Date R ecorded Do you have any trouble payi ng for your medications, or do you think you might in the future? Yes 01/12/2025 Does your family have troubl e paying for medicine? (Household - for ages 0-17 years) Not on file 01/12/2025 Transportation Needs Answer Date Record ed Do you have trouble getting a ride to medical visits or work? (Adult - for ages 18 years and over) Not on file 01/12/2025 Does your family have a hard time getting a ride to doctors visits? (Household - for ages 0-17 years) Not on file 01/12/2025 Has lack of transportation k ept you from medical appointments, meetings, work, or from getting things needed for daily living? Check all that apply. No 01/12/2025 Do you (or your family) have trouble finding or paying for a ride (transportation)? (Household - for ages 0-17 years) Not on file 01/12/2025 Housing Stability Answer Date Recorded Do you currently live in a s helter or have no steady place to sleep at night? No 01/12/2025 Do you think you are at risk of becoming homeless? (Adult - for ages 18 years and over) Not on file 01/12/2025 Does your family worry about paying for your home or becoming homeless? (Household - for ages 0-17 years) Not on file 0 01/12/2025 Are you homeless or worried that you might be in the future? No 01/12/2025 Are you (or your family) hieu eless or worried that you might be in the future? (Household - for ages 0-17 years) Not on file Food Insecurity Answer Date Recorded Do you need food for this week? Yes 12/27/2024 Are you able to get enough f ood for your family? (Household - for ages 0-17 years) Not on file 12/27/2024 Does your family need food t his week? (Household - for ages 0-17 years) Not on file 12/27/2024 Do you always have enough fo od for your family? (Household - for ages 0-17 years) Not on file 12/27/2024 Food Insecurity Answer Date Recorded Within the past 12 months, y ou worried that your food would run out before you got the money to buy more. Never true 01/12/20 25 Within the past 12 months, t he food you bought just didn't last and you didn't have money to get more. Never true 01/12/2025 Do you need food for this week? No 01/12/2025 Comments No Sex and Gender Information Value [...] encounter Miscellaneous Notes * Telephone Encounter - Rodolfo, Jigna Flynn RN - 01/15/2025 6:23 PM EST Images from the original note were not included. [facility] Telephonic Nurse Follow-Up Call [facility] Subprogram: No data was found Follow Up Call Type: Same-day acute follow up Patient identified by full name and date of Acute issue requiring follow-up call: Objective: 01/12/2025 10:23 AM 01/02/2025 3:35 PM 12/27/2024 3:33 PM 12/05/2024 3:15 PM 12/02/2024 11:09 AM VITALS ACROSS ENCOUNTERS BP 80/50 98/60 94/50 92/54 108/62 Pulse 99 83 68 120 78 Weight 58.1 kg 54.4 kg BMI 21.3 19.97 BMI 21.3 kg/m2 19.97 kg/m2 Remote Patient Monitoring: NONE Oxygen Needs: NO CHANGE from baseline supplemental oxygen needs 2 LPM DME Needs: NO DME needs identified Medications: New medication(s) added: from 01/12/25 - Azithromycin,Prednisone x 5 days Subjective: Condition Status: Worsening of symptoms Current Concerns: Returned call to patient as she wanted to speak to [facility] first before going to ED Also advised EMS/911 ED same as triage She tells me her spouse will take her to hospital Declined this CM calling EMS for her Acknowledged if something changes to call back to [facility] & we can reach out to EMS/911 for her. Will f/u tomorrow pending disposition. Disposition: [facility]- Dr. Binh Álvarez aware. Follow up call scheduled for tomorrow with EMPLOYEE OPERATIONS EXAMINER Clinical Aide Future Visits Scheduled: Future Appointments-next 60 days Date/Time Provider Specialty Dept Phone 01/15/2025 6:[address] [facility], Nurse [facility] [phone] 01/16/2025 1:[address] [facility], Nurse [facility] [phone] 01/19/2025 4:00 PM (Arrive by 3:45 PM) Ludy Jacobs CRNP Family Medicine [phone] 02/09/2025 1:00 PM Jerel Sam PA-C [facility] [phone] 02/13/2025 3:30 PM Lulu Yee PA-C Family Medicine [phone] 02/14/2025 3:00 PM [facility] [phone] 02/17/2025 5:30 PM Garrett Pharmacist Cardiology [facility] [phone] 02/28/2025 3:30 PM Garrett Pharmacist Cardiology [facility] Arrive at: Patient's Home [phone] 03/10/2025 9:40 AM Nevin Choudhary, [facility] So[employer] Integration Developer Family Medicine [phone] 04/14/2025 3:00 PM Chiquis Vazquez RN [facility] [phone] 05/15/2025 4:30 PM [facility] Radiology [phone] 07/03/2025 3:00 PM (Arrive by 2:45 PM) Sony Duong MD Pulmonary [phone] 07/17/2025 3:30 PM (Arrive by 3:15 PM) Angeline Madsen PA-C Cardiology [phone] Letitia Reynolds RN [facility] Inorganic Chemistry Professor/ [place] Toll Free Number: documented in this encounter Plan of Treatment Upcoming Encounters Date Type Department Care Team (Late st Contact Info) Description 01/16/2025 10:00 AM EST Scheduled Telephone [facility], [facility] [address] [address] [facility], Nurse [facility] [address] [address] 01/19/2025 4:00 PM EST Office Visit Family Practice [facility] [address] [address] Ludy Jacobs CRNP [address] [place] [phone] 02/09/2025 1:00 PM EDT Home Visit [facility], [facility] [address] [address] Jerel Sam PA-C [address] [place] [phone] 02/13/2025 3:30 PM EDT Telemedicine Care at Home [address] [place] [address] Lulu Yee PA-C [address] [place] [address] 02/14/2025 3:00 PM EDT Laboratory Laboratory, [facility] [address] [facility] [place] [phone] [facility] [address] [place] [address] 02/17/2025 5:30 PM EDT Pharmacy Cardiology [facility] [place] [address] [place] [address] [place], Pharmacist Cardiology [facility] [address] [place] [address] 02/28/2025 3:30 PM EDT Telemedicine Cardiology [facility] [place] [address] [place] [address] [place], Pharmacist Cardiology [facility] [address] [place] [address] 03/10/2025 9:40 AM EDT Home Visit Care Coordination and Integration [address] [place] [address] Nevin Choudhary, [facility] Soa Integration Developer [address] [place] [address] 04/14/2025 3:00 PM EDT Home Visit [facility], [facility] [address] [facility] [place] [address] Chiquis Vazquez, RN [address] [place] [address] 05/15/2025 4:30 PM EDT Imaging Radiology [address] [place] [phone] 07/03/2025 3:00 PM EDT Office Visit Pulmonary Medicine, [facility] [address] [place] [address] Sony Duong MD [address] [place] [address] 07/17/2025 3:30 PM EDT Office Visit Cardiology, [facility] [address] [place] [address] Angeline Madsen, CAROL [address] [place] [phone] Scheduled Procedures Name Priority Associated Diagnoses Date/Ti me COLONOSCOPY FLEXIBLE PROXIMAL DIAGNOSTIC Recall History of colon polyps Health Maintenance Due Date Last Done Comments Alpha-1 Antitrypsin 1982 HPV/Co-Test 1994 Cologuard 2009 Fecal Occult Blood Test 2009 Sigmoidoscopy 2009 Pneumococcal Vaccine: 50+ Years (3 of 3 - PCV20 or PCV21) 12/14/2019 12/14/2014, 12/14/2014, 10/11/2008 Zoster Vaccines (2 of 2) 03/06/2021 01/09/2021 CKD PHOS USE SMARTSET 29322 03/29/2022 03/29/2021, 0 03/28/2021 Albumin/Creatinine Ratio 09/29/2023 09/29/2022, 05/0 03/2021 Mammogram 03/02/2024 03/02/2023, 02/21, 11/04/2016, Additional history exists COVID-19 Vaccine ( season) 2024 10/21/2023, 09/26/2022, 09/26/2022, Additional history exists Cervical Cancer Screening 12/04/2024 Pap Smear 12/04/2024 12/04/2021, 02/21, 03/03/2016, Additional history exists GFR 01/30/2025 08/02/2024, 06/0 04/2024, 04/05/2024, Additional history exists CKD HGB USE SMARTSET 74090 08/02/202508/02, 08/02/2024, 04/28/2024, Additional history exists TSH 08/02/2025 08/02/2024, 0 04/2024, 03/06/2023, Additional history exists Depression Monitoring 12/27/2025 12/27/2024 O2 ASSESSMENT COMPLETED IN PAST YEAR FOR COPD 01/12/2026 01/12/2025 Colonoscopy 04/30/2026 04/30/2023, 060 06/2023, 11/28/2019, Additional history exists Colorectal Cancer Screening 04/30/2026 DTap/Tdap Vaccines (3 - Td or Tdap) 01/09/2031 01/09/2021, 01/04/2009 Hepatitis B Vaccine Completed 03/02/2023, Influenza Vaccine (FLU shot) Completed 08/2024, 10/21/2023, 09/24/2022, Additional history exists HPV (Gardasil) Vaccine Aged Out No lo nger eligible based on patient's age to complete this topic MENINGOCOCCAL (MENACTRA/MENVEO) Aged Out No longer eligible based on patient's age to complete this topic Meningitis B Vaccine (Bexsero/Trumemba) Aged Out No longer eligible based on [...] Agents on File Name Relationship Healthcare Agent [facility] Communication Lopez Brown Spouse First Alternate Health Care Agent [place] Adult Child Health Care Agent Care Teams Director Athletic Relationship Specialty Start Date End Date Ludy Jacobs CRNP [address] [place] [address] PCP - General Nurse Practitioner 04/20/24 documented as of this encounter
--- OUTSIDE RECORDS SUMMARY | 2025-01-15 19:42 | External Medical Summary | Summary of Care ---
Author Name Unknown Organization [facility] Address [address] [facility] [place] [address] Phone [phone] Care Team Providers Care Billing Clinician Name Role Phone Ludy Jacobs Primary Care Provider Reason for Visit * Reason Onset Date Comments [facility]: Maintenance 01/13/2025 Encounter Details Date Type Department Care Team (Late st Contact Info) Description 01/13/2025 10:30 AM EST Scheduled Telephone [facility], [facility] [address] [facility] [place] [address] [facility], Nurse [facility] [address] [facility] [place] [address] Allergies Active Allergy Reactions Criticality Noted Date [...] as of this encounter (statuses as of 01/13/2025) Medications VALVED HOLDING CHAMBER DEVIIndications:CO PD with emphysema ([facility]) to be used with inhalers as instructed [...] C, 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 ([facility]),Chronic hypoxemic respiratory failure ([facility]) Use with nebulized medications 1 Each 07/24/20 22 Active Full Kit Nebulizer SetIndications: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 D, 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 C, 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 ([facility]),Chronic hypoxemic respiratory failure ([facility]) Use with nebulizer 1 Each 07/24/20 22 Active Syringe 25G X 1-1/2" 3 ML Use for intramuscular B12 injection 1 Each 10/02/20 22 Active Albuterol Sulfate (2.5 MG/3ML) 0.083% Inhalation Nebulization Solution (Proventil)Indicat ions:COPD, group D, 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 ([facility]) Inhale 1 Vial via nebulizer [...] Tablet Extended Release 24 Hour (toPROL XL)Indications:Old [place] (myocardial infarction) TAKE 1 AND 1/2 TABLETS [...] C, 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 ([facility]) Inhale 2 Puffs by mouth [...] D, 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 ([facility]) 2.5 mg NEBULIZER ONCE PRN 04/28/2024 04/28/2025 Acti ve documented as of this encounter (statuses as of 01/13/2025) Active Problems Problem Noted Date Diagnosed Date [...] noted above Atherosclerotic heart diseas e of cocopah coronary artery with other forms of angina [...] (05/30/2022 4:32 PM EDT): Appointment scheduled with [facility] pain clinic [place] 07/02. Statin intolerance 01/24/2022 Osteopenia 01/08/2022 LYNDON [...] use aero chamber. Test performed by Flex VIBRATOR EQUIPMENT TESTER CPFT Circadian rhythm sleep disorder 09/17/2018 [...] to repeat. Coronary artery disease invo lving cocopah coronary artery of cocopah heart without angina pectoris 11/12/2015 Assessment & Plan (01/22/2023 12:36 PM EST): Stable no angina -continue ASA, metoprolol xl, repatha. Can't tolerate delgado d/t low bp Dyslipidemia, goal LDL below 70 11/12/2015 Sicca syndrome 12/29/2014 Acquired hypothyroidism 12/29/2014 Assessment & Plan (01/22/2023 12:45 PM EST): Continue synthroid Old [place] (myocardial infarction) 11/01/2013 Assessment & Plan (05/30/2022 [...] as of this encounter (statuses as of 01/13/2025) Resolved Problems Problem Noted Date Diagnosed Date [...] use aero chamber. Test performed by Flex VIBRATOR EQUIPMENT TESTER CPFT Assessment & Plan (05/30/2022 4:27 PM [...] use aero chamber. Test performed by Flex VIBRATOR EQUIPMENT TESTER CPFT COPD, group B, by GOLD 2017 [...] 04/07/2012 10/05/2012 Overview (04/07/2012): PFT 03/2008 [facility] COPD, SEVERE 04/07/2012 05/04/2019 Overview: PER COPD PROTOCOL #24. PFT 03/2008 [facility] LAST PFT -06/07/12 Gastroesophageal reflux dise ase with esophagitis 04/30/2009 01/14/2022 Overview (05/15/2009): mild ADVANCE DIRECTIVE INFORMATION 12/02/2008 09/26/2024 Overview (12/02/2008): No, Advance Directive brochure offered , patient declined. COPD with emphysema 10/05/20 12 documented as of this encounter (statuses as of 01/13/2025) Immunizations Name Administration Dates Next Due COVID-19 mRNA, LNP-s, No Pre serve, 2-Dose Series ([employer]) 09/26/2022,11/18/2021,04/04/2021,02/28 COVID-19, MRNA-LNP, PF, 30 M CG/0.3 mL, 12 YRS AND ABOVE, IM ([employer]-Comirnaty) 10/21/2023 Covid-19, Mrna, Lnp-s, Pf, B ivalent, [...] Entry Date Author No 03/28/2021 5:37 AM EDValentino Young RN documented in this encounter Miscellaneous Notes * Telephone Encounter - Bria Adam RN - 01/13/2025 3:57 PM EST Received teams message from Kanwal Garcia CMA that [facility] called and will be going today todo chest xray between 5:30-7:30 Bria Adam RN [facility] Registered Nurse Navigator Triage * Telephone Encounter - Bria Adam RN - 01/13/2025 3:36 PM EST [facility] and was informed patient was called several times yesterday and and did not answer the phone, she was left a return number to call the [employer] tech and did not. [employer] will attempt to call patient again to schedule. Also provided [employer] with patients husbands phone number to contact. I called patient , she did not answer, I left her a message for her to check her voice mail and call [employer] tech back to schedule chest x-ray. Bria Adam RN [facility] Registered Nurse Navigator Triage * Telephone Encounter - Bria Adam RN - 01/13/2025 1:31 PM EST [facility] Telephonic Nurse Follow-Up Call [facility] Subprogram: No data was found Follow Up Call Type: 24 hour follow up Acute issue requiring follow-up call: Acute Exacerbation of COPD, acute HV yesterday, chest xray ordered Objective: 01/12/2025 10:23 AM 01/02/2025 3:35 PM 12/27/2024 3:33 PM 12/05/2024 3:15 PM 12/02/2024 11:09 AM VIT[facility] ACROSS ENCOUNTERS BP 80/50 98/60 94/50 92/54 108/62 Pulse 99 83 68 120 78 Weight 58.1 kg 54.4 kg BMI 21.3 19.97 BMI 21.3 kg/m2 19.97 kg/m2 Remote Patient Monitoring: NONE Oxygen Needs: NO CHANGE from baseline supplemental oxygen needs DME Needs: Nebulizer machine and supplies Medications: New medication(s) added: Zithromax, Prednisone and Advair Subjective: Condition Status: No change in symptoms Current Concerns: Called and spoke with patient, she stated "she is about the same as yesterday but doing ok." She did not start taking Zithromax or Prednisone yet, because is picking medication up today after work. [facility] has not done [facility] xray yet or called her with arrival time. I called [facility], spoke with Lelo, she will check on ETA and someone will be calling me back [facility] to inform me when chest xray will be done. Disposition: Routed to [facility] and/or [facility] [place] Care Team for further advice Future Visits Scheduled: Future Appointments-next 60 days Date/Time Provider Specialty Dept Phone 01/14/2025 9:00 AM [facility], Nurse [facility] Andrew [facility] [phone] 01/19/2025 4:00 PM (Arrive by 3:45 PM) Ludy Jacobs CRNP Family Medicine [phone] 02/09/2025 1:00 PM Jerel Sam PA-C [facility] [phone] 02/13/2025 3:30 PM Lulu Yee PA-C Family Medicine [phone] 02/14/2025 3:00 PM Daniel Zaman [facility] Laboratory [phone] 02/17/2025 5:30 PM Garrett, Pharmacist Cardiology [facility] Cardiology [phone] 02/28/2025 3:30 PM Garrett, Pharmacist Cardiology [facility] Cardiology Arrive at: Patient's Home [phone] 03/10/2025 9:40 AM Nevin Choudhary, [facility] General Maintenance Engineer [facility] [phone] 04/14/2025 3:00 PM Chiquis Vazquez RN [facility] [phone] 05/15/2025 4:30 [address] Radiology [phone] 07/03/2025 3:00 PM (Arrive by 2:45 PM) Sony Duong MD Pulmonary [phone] 07/17/2025 3:30 PM (Arrive by 3:15 PM) Angeline Madsen PA-C Cardiology [phone] Bria Adam RN [facility] Registered Nurse Navigator Triage documented in this encounter Plan of Treatment Upcoming Encounters Date Type Department Care Team (Late st Contact Info) Description 01/14/2025 9:00 AM EST Scheduled Telephone [facility], [facility] [address] [place] [address] [facility], Nurse [facility] [address] [place] [address] 01/19/2025 4:00 PM EST Office Visit Family Practice [facility] [address] [place] [address] Ludy Jacobs CRNP [address] [place] [phone] 02/09/2025 1:00 PM EDT Home Visit [facility], [facility] [address] [place] [address] Jerel Sam PA-C [address] [place] [address] 02/13/2025 3:30 PM EDT Telemedicine Care at Home [address] [place] [address] Lulu Yee PA-C [address] [place] [address] 02/14/2025 3:00 PM EDT Laboratory Laboratory, [facility] [address] [facility] [place] [phone] [facility] [address] [facility] [place] [address] 02/17/2025 5:30 PM EDT Pharmacy Cardiology [facility], [place] [address], [place] [id number] [place] [address], Pharmacist Cardiology [facility] [address] [place] [address] 02/28/2025 3:30 PM EDT Telemedicine Cardiology [facility], [place] [address] [place] [address] [place] [address], Pharmacist Cardiology [address] [place] [address] 03/10/2025 9:40 AM EDT Home Visit Care Coordination and Integration [address] [place] [address] Nevin Choudhary, [facility] General Maintenance Engineer [address] [place] [address] 04/14/2025 3:00 PM EDT Home Visit [facility], [facility] [address] [facility] [place] [address] Chiquis Vazquez, RN [address] [facility] [place] [address] 05/15/2025 4:30 PM EDT Imaging Radiology [facility]st [facility] [address] [facility] [place] [phone] 07/03/2025 3:00 PM EDT Office Visit Pulmonary Medicine, [facility] [address] [facility] [place] [address] Sony Duong MD [address] [place] [address] 07/17/2025 3:30 PM EDT Office Visit Cardiology, [facility] [address] [facility] [place] [address] Angeline Madsen PA-C [address] [facility] [place] [phone] Scheduled Procedures Name Priority Associated Diagnoses Date/Ti [...] 2) 03/06/2021 01/09/2021 CKD PHOS USE SMARTSET 70875 03/29/2022 03/29/2021, 0 03/28/2021 Albumin/Creatinine Ratio 09/29/2023 09/29/2022, 05/0 03/2021 Mammogram 03/02/2024 03/02/2023, 02/21, 11/04/2016, Additional history exists COVID-19 Vaccine ( season) 2024 10/21/2023, 09/26/2022, 09/26/2022, Additional history exists Cervical Cancer Screening 12/04/2024 Pap Smear 12/04/2024 12/04/2021, 02/21, 03/03/2016, Additional history exists GFR 01/30/2025 08/02/2024, 06/0 04/2024, 04/05/2024, Additional history exists CKD HGB USE SMARTSET 41909 08/02/202508/02, 08/02/2024, 04/28/2024, Additional history exists TSH 08/02/2025 08/02/2024, 06/0 04/2024, 03/06/2023, Additional history exists Depression Monitoring 12/27/2025 12/27/2024 O2 ASSESSMENT COMPLETED IN PAST YEAR FOR COPD 01/12/2026 01/12/2025 Colonoscopy 04/30/2026 04/30/2023, 06/0 06/2023, 11/28/2019, Additional [...] Agents on File Name Relationship [facility] Lopez Brown Spouse First Alternate Health Care Agent [place] Adult Child Health Care Agent Care Teams Billing Clinician Relationship Specialty Start Date End Date Ludy Jacobs CRNP [address] [place] [phone] PCP - General Nurse Practitioner 04/20/24 documented as of this encounter
--- OUTSIDE RECORDS SUMMARY | 2025-01-15 19:42 | External Medical Summary | Summary of Care ---
Author Name Unknown Organization [facility] Address [address] [facility] [place] [address] Phone [phone] Care Team Providers Care Poultry Hatchery Manager Name Role Phone Ludy Jacobs Primary Care Provider Reason for Visit * Reason Onset Date Comments [facility]: Maintenance 01/13/2025 Encounter Details Date Type Department Care Team (Late st Contact Info) Description 01/13/2025 10:30 AM EST Scheduled Telephone [facility], [facility] [address] [facility] [place] [address] [facility], Nurse [facility] [address] [facility] [place] [address] Allergies Active Allergy Reactions Criticality Noted Date [...] VALVED HOLDING CHAMBER DEVIIndications:CO PD with emphysema ([facility]) to be used with inhalers as instructed [...] [facility]) Use with nebulized medications 1 Each 07/24/20 22 Active Full Kit Nebulizer SetIndications: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 Statin intolerance 01/24/2022 Osteopenia 01/08/2022 LYNDON [...] use aero chamber. 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 Coronary artery disease invo lving grindstone coronary artery of grindstone heart without angina pectoris 11/12/2015 Assessment & Plan (01/22/2023 12:36 PM EST): Stable no angina -continue ASA, metoprolol xl, repatha. Can't tolerate delgado d/t low bp Dyslipidemia, goal LDL below 70 11/12/2015 Sicca syndrome 12/29/2014 Acquired hypothyroidism 12/29/2014 Assessment & Plan (01/22/2023 12:45 PM EST): Continue synthroid Old [place] (myocardial infarction) 11/01/2013 Assessment & Plan (05/30/2022 [...] use aero chamber. Test performed by Flex CENTRAL SUPPLY WORKER CPFT Assessment & Plan (05/30/2022 4:27 [...] use aero chamber. Test performed by Flex CENTRAL SUPPLY WORKER CPFT COPD, group B, by GOLD 2017 [...] moderate 04/07/2012 10/05/2012 Overview (04/07/2012): PFT 03/2008 [facility] COPD, SEVERE 04/07/2012 05/04/2019 Overview: PER COPD PROTOCOL #24. PFT 03/2008 [facility] LAST PFT -06/07/12 Gastroesophageal reflux dise ase with esophagitis 04/30/2009 01/14/2022 Overview (05/15/2009): mild ADVANCE DIRECTIVE INFORMATION 12/02/2008 09/26/2024 Overview (12/02/2008): No, Advance Directive brochure offered , patient declined. COPD with emphysema 10/05/20 12 documented as of this encounter (statuses as of 01/13/2025) Immunizations Name Administration Dates Next Due COVID-19 mRNA, LNP-s, No Pre serve, 2-Dose Series ([employer]) 09/26/2022,11/18/2021,04/04/2021,02/28 COVID-19, MRNA-LNP, PF, 30 M CG/0.3 mL, 12 YRS AND ABOVE, IM ([employer]-Comirnaty) 10/21/2023 Covid-19, Mrna, Lnp-s, Pf, B ivalent, [...] chest xray between 5:30-7:30 Bria Adam RN [facility] Registered Nurse Navigator Triage * Telephone Encounter - Bria Adam RN - 01/13/2025 3:36 PM EST [facility] and was informed patient was called several times yesterday and and did not answer the phone, she was left a return number to call the [employer] tech and did not. [employer] will attempt to call patient again to schedule. Also provided [employer] with patients husbands phone number to contact. I called patient , she did not answer, I left her a message for her to check her voice mail and call [employer] [facility] tech back to schedule chest x-ray. Bria Adam RN [facility] Registered Nurse Navigator Triage * Telephone Encounter - Bria Adam RN - 01/13/2025 1:31 PM EST [facility] Telephonic Nurse Follow-Up Call [facility] Subprogram: No data was found Follow Up [...] is picking medication up today [facility]. [facility] or called her with arrival time. I called [facility], spoke with Lelo, she will check on ETA and someone will be calling me back [facility] to inform me when chest xray will be done. Disposition: Routed to [facility] and/or [facility] Care Team for further advice Future Visits Scheduled: Future Appointments-next 60 days Date/Time Provider Specialty Dept Phone 01/14/2025 9:00 AM [facility], Nurse [facility] Andrew [facility] [phone] 01/19/2025 4:00 PM (Arrive by 3:45 PM) Ludy Jacobs CRNP Family Medicine [phone] 02/09/2025 1:00 PM Jerel Sam PA-C [facility] [phone] 02/13/2025 3:30 PM Lulu Yee PA-C Family Medicine [phone] 02/14/2025 3:00 PM Daniel Zaman [facility] Laboratory [phone] 02/17/2025 5:30 PM Garrett, Pharmacist Cardiology [facility] Cardiology [phone] 02/28/2025 3:30 PM Garrett, Pharmacist Cardiology [facility] Cardiology Arrive at: Patient's Home [phone] 03/10/2025 9:40 AM Nevin Choudhary, [facility] Environmental Restoration Planner [facility] [phone] 04/14/2025 3:00 PM Chiquis Vazquez RN [facility] [phone] 05/15/2025 4:30 PM [address]1 [facility] Radiology [phone] 07/03/2025 3:00 PM (Arrive by 2:45 PM) Sony Duong MD Pulmonary [phone] 07/17/2025 3:30 PM (Arrive by 3:15 PM) Angeline Madsen PA-C Cardiology [phone] Bria Adam RN [facility] Registered Nurse Navigator Triage documented in this encounter Plan of Treatment Upcoming Encounters Date Type Department Care Team (Late st Contact Info) Description 01/14/2025 9:00 AM EST Scheduled Telephone [facility], [facility] [address] [place] [address] [facility], Nurse [facility] [address] [place] [address] 01/19/2025 4:00 PM EST Office Visit Family Practice [facility] [address] [place] [address] Ludy Jacobs CRNP [address] [place] [address] 02/09/2025 1:00 PM EDT Home Visit [facility], [facility] [address] [place] [address] Jerel Sam PA-C [address] [place] [address] 02/13/2025 3:30 PM EDT Telemedicine Care at Home [address] [place] [address] Lulu Yee PA-C [address] [place] [address] 02/14/2025 3:00 PM EDT Laboratory Laboratory, [facility] 132 [facility] [place] [phone] [facility] [address] [facility] [place] [address] 02/17/2025 5:30 PM EDT Pharmacy Cardiology [facility] [place] [address] [place], [place] [address] [place] [address], Pharmacist Cardiology [address] [place] [address] 02/28/2025 3:30 PM EDT Telemedicine Cardiology [facility] [place] [address] [place] [address] [place] [address], Pharmacist Cardiology [address] [place] [address] 03/10/2025 9:40 AM EDT Home Visit Care Coordination and Integration [address] [place] [address] Nevin Choudhary, [facility] Environmental Restoration Planner [address] [place] [address] 04/14/2025 3:00 PM EDT Home Visit [facility], [facility] 132 [facility] [place] [address] Chiquis Vazquez, RN 132 [facility] [place] [address] 05/15/2025 4:30 PM EDT Imaging Radiology [facility] 1st [facility] 132 [facility] [place] [phone] 07/03/2025 3:00 PM EDT Office Visit Pulmonary Medicine, [facility] 132 [facility] [place] [address] Sony Duong MD [address] [place] [address] 07/17/2025 3:30 PM EDT Office Visit Cardiology, [facility] 132 [facility] [place] [address] Angeline Madsen PA-C 132 [facility] [place] [address] Scheduled Procedures Name Priority Associated Diagnoses Date/Ti [...] 2) 03/06/2021 01/09/2021 CKD PHOS USE SMARTSET 22472 03/29/2022 03/29/2021, 0 03/28/2021 Albumin/Creatinine Ratio 09/29/2023 09/29/2022, 05/0 03/2021 Mammogram 03/02/2024 03/02/2023, 02/21, 11/04/2016, Additional history exists COVID-19 Vaccine ( season) 2024 10/21/2023, 09/26/2022, 09/26/2022, Additional history exists Cervical Cancer Screening 12/04/2024 Pap Smear 12/04/2024 12/04/2021, 02/21, 03/03/2016, Additional history exists GFR 01/30/2025 08/02/2024, 06/0 04/2024, 04/05/2024, Additional history exists CKD HGB USE SMARTSET 88600 08/02/202508/02, 08/02/2024, 04/28/2024, Additional history exists TSH [...] File Name Relationship Healthcare [facility] Communication Lopez Brown Spouse First Alternate Health Care Agent [place] Adult Child Health Care Agent Care Teams Poultry Hatchery Manager Relationship Specialty Start Date End Date Ludy Jacobs CRNP [address] [place] [phone] PCP - General Nurse Practitioner 04/20/24 documented as of this encounter
--- OUTSIDE RECORDS SUMMARY | 2025-01-15 19:42 | External Medical Summary | Summary of Care ---
Author Name Unknown Organization [facility] Address [address] [facility] [place] [address] Phone [phone] Care Team Providers Care Executive Recruiter Name Role Phone Ludy Jacobs Primary Care Provider Reason for Visit * Reason Onset Date Comments [facility]: Maintenance 01/15/2025 Encounter Details Date Type Department Care Team (Late st Contact Info) Description 01/15/2025 8:45 AM EST Scheduled Telephone [facility], [facility] [address] [facility] [place] [address] [facility], Nurse [facility] [address] [facility] [place] [address] Allergies Active Allergy Reactions Criticality Noted Date [...] CHAMBER DEVIIndications:CO PD with emphysema ([facility]) to be used with inhalers as instructed [...] C, 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 ([facility]),Chronic hypoxemic respiratory failure ([facility]) Use with nebulized medications 1 Each 07/24/20 22 Active Full Kit Nebulizer SetIndications: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, 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, 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 ([facility]),Chronic hypoxemic respiratory failure ([facility]) Use with nebulizer 1 Each 07/24/20 22 Active Syringe 25G X 1-1/2" 3 ML Use for intramuscular B12 injection 1 Each 10/02/20 22 Active Albuterol Sulfate (2.5 MG/3ML) 0.083% Inhalation Nebulization Solution (Proventil)Indicat ions:COPD, group D, 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 ([facility]) Inhale 1 Vial via nebulizer 4 times [...] Tablet Extended Release 24 Hour (toPROL XL)Indications:Old MS (myocardial infarction) TAKE 1 AND 1/2 TABLETS [...] C, 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 ([facility]) Inhale 2 Puffs by mouth every 4 [...] D, 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 ([facility]) 2.5 mg NEBULIZER ONCE PRN 04/28/2024 04/28/2025 [...] noted above Atherosclerotic heart diseas e of hopi coronary artery with other forms of angina [...] [facility] pain clinic [place] 07/02. Statin intolerance 01/24/2022 Osteopenia 01/08/2022 LYNDON [...] use aero chamber. 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 Took high dose replacement. Due to repeat. Coronary artery disease invo lving hopi coronary artery of hopi heart without angina pectoris 11/12/2015 Assessment & Plan (01/22/2023 12:36 PM EST): Stable no angina -continue ASA, metoprolol xl, repatha. Can't tolerate delgado d/t low bp Dyslipidemia, goal LDL below 70 11/12/2015 Sicca syndrome 12/29/2014 Acquired hypothyroidism 12/29/2014 Assessment & Plan (01/22/2023 12:45 PM EST): Continue synthroid Old MS (myocardial infarction) 11/01/2013 Assessment & Plan (05/30/2022 [...] use aero chamber. Test performed by Flex INTERVENTIONAL TECHNOLOGIST CPFT Assessment & Plan (05/30/2022 4:27 PM [...] use aero chamber. Test performed by Flex INTERVENTIONAL TECHNOLOGIST CPFT COPD, group B, by GOLD 2017 [...] moderate 04/07/2012 10/05/2012 Overview (04/07/2012): PFT 03/2008 [facility] COPD, SEVERE 04/07/2012 05/04/2019 Overview: PER COPD PROTOCOL #24. PFT 03/2008 [facility] LAST PFT -06/07/12 Gastroesophageal reflux dise ase with esophagitis 04/30/2009 01/14/2022 Overview (05/15/2009): mild ADVANCE DIRECTIVE INFORMATION 12/02/2008 09/26/2024 Overview (12/02/2008): No, Advance Directive brochure offered , patient declined. COPD with emphysema 10/05/20 12 documented as of this encounter (statuses as of 01/15/2025) Immunizations Name Administration Dates Next Due COVID-19 mRNA, LNP-s, No Pre serve, 2-Dose Series ([employer]) 09/26/2022,11/18/2021,04/04/2021,02/28 COVID-19, MRNA-LNP, PF, 30 M CG/0.3 mL, 12 YRS AND ABOVE, IM ([employer]Comirnaty) 10/21/2023 Covid-19, Mrna, Lnp-s, Pf, B ivalent, [...] Assessment Author No 03/28/2021 5:37 AM EDT Vaelntino Child RN * Are you blind or [...] Telephone Encounter - Bria Adam RN - 01/15/2025 10:12 AM EST [facility] Telephonic Nurse Follow-Up Call [facility] Subprogram: No data was found Follow Up Call Type: Routine follow up call / Status Check Acute issue requiring follow-up call: Acute Exacerbation of COPD, check chest xray results Objective: 01/12/2025 10:23 AM 01/02/2025 3:35 PM [...] Zithromax, Prednisone and Advair Subjective: Condition Status: unable to contact Current Concerns: Called pt , no answer, left message to return call to [facility] Disposition: Follow up call scheduled for tomorrow with [facility] Recreation Therapy Aides Teacher Another call scheduled for tomorrow , check if Chest xray was completed and results Future Visits Scheduled: Future Appointments-next 60 days Date/Time Provider Specialty Dept Phone 01/19/2025 4:00 PM (Arrive by 3:45 PM) Ludy Jacobs CRNP Family Medicine [phone] 02/09/2025 1:00 PM Jerel Sam PA-C [facility] [phone] 02/13/2025 3:30 PM Lulu Yee PA-C Family Medicine [phone] 02/14/2025 3:00 PM Daniel Zaman [facility] Laboratory [phone] 02/17/2025 5:30 PM Garrett, Pharmacist Cardiology [facility] Cardiology [phone] 02/28/2025 3:30 PM Garrett, Pharmacist Cardiology [facility] Cardiology Arrive at: Patient's Home [phone] 03/10/2025 9:40 AM Nevin Choudhary [facility] Director Internal Audit Family Medicine [phone] 04/14/2025 3:00 PM Chiquis Vazquez RN [facility] [phone] 05/15/2025 4:30 PM CT1 [facility] Radiology [phone] 07/03/2025 3:00 PM (Arrive by 2:45 PM) Sony Duong MD Pulmonary [phone] 07/17/2025 3:30 PM (Arrive by 3:15 PM) Angeline Madsen PA-C Cardiology [phone] Bria Adam RN [facility] Registered Nurse Navigator Triage documented in this encounter Plan of Treatment Upcoming Encounters Date Type Department Care Team (Late st Contact Info) Description 01/16/2025 1:00 PM EST Scheduled Telephone [facility], [facility] [address] [place] [address] [facility], Nurse [facility] [place] [address] 01/19/2025 4:00 PM EST Office Visit Family Practice [facility] [place] [address] Ludy Jacobs CRNP [address] [place] [address] 02/09/2025 1:00 PM EDT Home Visit [facility], [facility] [address] [place] [address] Jerel Sam PA-C [address] [place] [address] 02/13/2025 3:30 PM EDT Telemedicine Care at Home [address] [place] [address] Lulu Yee PA-C [address] [place] [address] 02/14/2025 3:00 PM EDT Laboratory Laboratory, [facility] [address] [place] [phone] [facility] [address] [place] [address] 02/17/2025 5:30 PM EDT Pharmacy Cardiology [facility] [place] [address] [place] [address] [place], Pharmacist Cardiology [facility] [address] [place] [address] 02/28/2025 3:30 PM EDT Telemedicine Cardiology [facility], [place] [address] [place] [address] [place], Pharmacist Cardiology [facility] [address] [place] [address] 03/10/2025 9:40 AM EDT Home Visit [facility] Integration [address] [place] [address] Nevin Choudhary, Community Health Director Internal Audit [address] [place] [address] 04/14/2025 3:00 PM EDT Home Visit [facility], [facility] [address] [facility] [place] [address] Chiquis Vazquez, RN [address] [facility] [place] [address] 05/15/2025 4:30 PM EDT Imaging Radiology [facility] [address] [facility] [place] [phone] 07/03/2025 3:00 PM EDT Office Visit Pulmonary Medicine, [facility] [address] [facility] [place] [address] Sony Duong MD [address] [place] [address] 07/17/2025 3:30 PM EDT Office Visit Cardiology, [facility] [address] [facility] [place] [address] Angeline Madsen PA-C [address] [place] [phone] Scheduled Procedures Name Priority Associated Diagnoses Date/Ti [...] 2) 03/06/2021 01/09/2021 CKD PHOS USE SMARTSET 21717 03/29/2022 03/29/2021, 0 03/28/2021 Albumin/Creatinine Ratio 09/29/2023 09/29/2022, 05/0 03/2021 Mammogram 03/02/2024 03/02/2023, 02/21, 11/04/2016, Additional history exists COVID-19 Vaccine ( season) 2024 10/21/2023, 09/26/2022, 09/26/2022, Additional history exists Cervical Cancer Screening 12/04/2024 Pap Smear 12/04/2024 12/04/2021, 02/21, 03/03/2016, Additional history exists GFR 01/30/2025 08/02/2024, 06/0 04/2024, 04/05/2024, Additional history exists CKD HGB USE SMARTSET 84501 08/02/202508/02, 08/02/2024, 04/28/2024, Additional history exists TSH [...] Agents on File Name Relationship Healthcare Agent [facility] p Communication Lopez Brown Spouse First Alternate Health Care Agent [place] Adult Child Health Care Agent Care Teams Executive Recruiter Relationship Specialty Start Date End Date Ludy Jacobs CRNP [address] [place] [phone] PCP - General Nurse Practitioner 04/20/24 documented as of this encounter
--- OUTSIDE RECORDS SUMMARY | 2025-01-15 19:42 | External Medical Summary | Summary of Care ---
Author Name Unknown Organization [facility] Address [address] [facility] [place] [address] Phone [phone] Care Team Providers Care Sas Clinical Programmer Name Role Phone Ludy Jacobs Primary Care Provider Reason for Visit * Reason Onset Date Comments Acute Problem Follow Up 01/14/2025 Encounter Details Date Type Department Care Team (Late st Contact Info) Description 01/14/2025 9:00 AM EST Scheduled Telephone [facility] [address] [facility] [place] [address] [facility], Nurse [facility] [address] [facility] [place] [address] Allergies Active Allergy Reactions Criticality Noted Date [...] as of this encounter (statuses as of 01/14/2025) Medications VALVED HOLDING CHAMBER DEVIIndications:CO PD with emphysema (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),Chronic hypoxemic respiratory failure ([facility]) Use with nebulizer 1 Each 07/24/20 22 Active Syringe 25G X 1-1/2" 3 ML Use for intramuscular B12 injection 1 Each 11 10/02/20 22 Active Albuterol Sulfate (2.5 MG/3ML) [...] as of this encounter (statuses as of 01/14/2025) Active Problems Problem Noted Date Diagnosed Date [...] noted above Atherosclerotic heart diseas e of [place] coronary artery with other forms of angina [...] scheduled with [facility] pain clinic [place] 07/02. Statin intolerance 01/24/2022 Osteopenia 01/08/2022 LYNDON [...] use aero chamber. 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 Took high dose replacement. Due to repeat. Coronary artery disease invo lving [place] coronary artery of [place] heart without angina pectoris 11/12/2015 Assessment & [...] as of this encounter (statuses as of 01/14/2025) Resolved Problems Problem Noted Date Diagnosed Date [...] use aero chamber. Test performed by Flex COMPUTER NETWORKER CPFT Assessment & Plan (05/30/2022 4:27 PM [...] use aero chamber. Test performed by Flex COMPUTER NETWORKER CPFT COPD, group B, by GOLD 2017 [...] moderate 04/07/2012 10/05/2012 Overview (04/07/2012): PFT 03/2008 [facility] COPD, SEVERE 04/07/2012 05/04/2019 Overview: PER COPD PROTOCOL #24. PFT 03/2008 [facility] LAST PFT -06/07/12 Gastroesophageal reflux dise ase with esophagitis 04/30/2009 01/14/2022 Overview (05/15/2009): mild ADVANCE DIRECTIVE INFORMATION 12/02/2008 09/26/2024 Overview (12/02/2008): No, Advance Directive brochure offered , patient declined. COPD with emphysema 10/05/20 12 documented as of this encounter (statuses as of 01/14/2025) Immunizations Name Administration Dates Next Due COVID-19 mRNA, LNP-s, No Pre serve, 2-Dose Series ([employer]) 09/26/2022,11/18/2021,04/04/2021,02/28 COVID-19, MRNA-LNP, PF, 30 M CG/0.3 mL, 12 YRS AND ABOVE, IM ([employer]Comirnat) 10/21/2023 Covid-19, Mrna, Lnp-s, Pf, B ivalent, [...] Author No 03/28/2021 5:37 AM EDT Valentino Cihld RN * Are you blind or do [...] encounter Miscellaneous Notes * Telephone Encounter - Angeline Casarez RN - 01/14/2025 8:38 AM EST Outbound call to patient for follow up on COPD exacerbation and acute home visit. Left message requesting call back to [facility] at [phone]. documented in this encounter Plan of Treatment Upcoming Encounters Date Type Department Care Team (Late st Contact Info) Description 01/15/2025 8:45 AM EST Scheduled Telephone [facility], [facility] [address] [facility] [place] [address] [facility], Nurse [facility] [address] [place] [address] 01/19/2025 4:00 PM EST Office Visit Family Practice [facility] [address] [facility] [place] [address] Ludy Jacobs CRNP [facility] [place] [address] 02/09/2025 1:00 PM EDT Home Visit [facility], [facility] [address] [place] [address] Jerel Sam PA-C [address] [facility] [place] [address] 02/13/2025 3:30 PM EDT Telemedicine Care at Home [address] [place] [address] Lulu Yee PA-C [address] [place] [address] 02/14/2025 3:00 PM EDT Laboratory Laboratory, [facility] [address] [facility] [place] [phone] [facility] [address] [facility] [place] [address] 02/17/2025 5:30 PM EDT Pharmacy [facility] [place] [address] [place] [address] [facility], Pharmacist [facility] [place] [address] 02/28/2025 3:30 PM EDT Telemedicine Cardiology [facility] [address] [place] [address] [place] [address], Pharmacist Cardiology [facility] [address] [place] [address] 03/10/2025 9:40 AM EDT Home Visit Care Coordination and Integration [address] [place] [address] Nevin Choudhary, Community Health Manager Recruiting [address] [place] [address] 04/14/2025 3:00 PM EDT [facility] Visit [facility] [place], [facility] [address] [place] [address] Chiquis Vazquez RN [address] [place] [address] 05/15/2025 4:30 PM EDT Imaging Radiology [facility] [address] [facility] [place] [phone] 07/03/2025 3:00 PM EDT Office Visit Pulmonary Medicine, [facility] [address] [facility] [place] [address] Sony Duong MD [address] [place] [address] 07/17/2025 3:30 PM EDT Office Visit Cardiology, [facility] [address] [facility] [place] [address] Angeline Madsen PA-C [address] [place] [phone] Scheduled Procedures Name Priority Associated Diagnoses Date/Ti [...] 2) 03/06/2021 01/09/2021 CKD PHOS USE SMARTSET 23817 03/29/2022 03/29/2021, 0 03/28/2021 Albumin/Creatinine Ratio 09/29/2023 09/29/2022, 05/0 03/2021 Mammogram 03/02/2024 03/02/2023, 02/21, 11/04/2016, Additional history exists COVID-19 Vaccine ( season) 2024 10/21/2023, 09/26/2022, 09/26/2022, Additional history exists Cervical Cancer Screening 12/04/2024 Pap Smear 12/04/2024 12/04/2021, 02/21, 03/03/2016, Additional history exists GFR 01/30/2025 08/02/2024, 06/0 04/2024, 04/05/2024, Additional history exists CKD HGB USE SMARTSET 92211 08/02/202508/02, 08/02/2024, 04/28/2024, Additional history exists TSH [...] Agents on File Name Relationship Healthcare Agent [facility] p Communication Lopez Brown Spouse First Alternate Health Care Agent [place] Adult Child Health Care Agent Care Teams Sas Clinical Programmer Relationship Specialty Start Date End Date Ludy Jacobs CRNP [address] [place] [address] PCP - General Nurse Practitioner 04/20/24 documented as of this encounter
--- OUTSIDE RECORDS SUMMARY | 2025-01-15 19:42 | External Medical Summary | Summary of Care ---
Author Name Unknown Organization [facility] Address [address] [facility] [place] [address] Phone [phone] Care Team Providers Care Glass Artist Name Role Phone Ludy Jacobs Zeina LY Primary Care Provider Encounter Details Date Type Department Care Team (Late st Contact Info) Description 01/12/2025 10:00 AM EST [facility], [facility] [address] [facility] [place] [address] Chiquis Vazquez, RN [address] [place] [address] COPD, group D, 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 ([facility])* Allergies Active Allergy Reactions Criticality Noted Date [...] as of this encounter (statuses as of 01/12/2025) Medications VALVED HOLDING CHAMBER DEVIIndications:C OPD with emphysema ([facility]) to be used with inhalers [...] Documents, Reported on 01/12/2025 Nebulizers (NEBULIZER COMPRESSOR) [facility] Inhale via nebulizer. Along with supply . Use as directed. Dx code- J44.9 and J43.9 1 Each 018 Active aspirin enteric coated 81 MG TBEC Take 1 Tablet by mouth every morning. Active Acetaminophen 325 MG Oral Tablet (Tylenol) Take 1,000 mg by mouth every 8 hours as needed. Active Nebulizer DeviceIndications :COPD, group C, 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 ([facility]),Chronic hypoxemic respiratory failure ([facility]) Use with nebulized medications 1 Each 022 Active Full Kit Nebulizer SetIndications:CO PD, group C, 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 ([facility]),Chronic hypoxemic respiratory failure ([facility]) Use with nebulizer 1 Each 022 Active Syringe 25G X 1-1/2" 3 ML Use for intramuscular B12 injection 1 Each 11 022 Active Albuterol Sulfate (2.5 MG/3ML) 0.083% Inhalation Nebulization Solution (Proventil)Indica tions:COPD, group D, 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 ([facility]) Inhale 1 Vial via nebulizer 4 times a day as needed for Wheezing. Use in place of rescue inhaler. 360 mL 2 023 Active Omeprazole 20 MG Oral Capsule Delayed Release (PriLOSEC)Indicat ions:Abdominal pain, epigastric TAKE 1 CAPSULE IN THE MORNING AND 1 CAPSULE BEFORE BEDTIME 60 Capsule 5 024 Active Folic Acid 1 MG Oral [...] 10/24/20 24 8:51 AM EST 024 Active Pregabalin 75 MG Oral Capsule (Lyrica)Indicatio ns:Complex regional pain syndrome type 1 of left upper extremity Take 1 Capsule by mouth in the morning and 1 Capsule at noon and 1 Capsule before bedtime. 90 Capsule 5 024 Active Ipratropium-Albut bryant 0.5-2.5 (3) MG/3ML Inhalation Solution (Duoneb) USE 1 AMPULE IN NEBULIZER 4 TIMES DAILY NEEDED FOR COUGH, SHORTNESS OF BREATH OR WHEEZING -USE IN PLACE OF RESCUE INHALER 360 mL 5 024 Active Metoprolol Succinate ER 50 MG Oral Tablet Extended Release 24 Hour (toPROL XL)Indications:Ol d CO (myocardial infarction) TAKE 1 AND 1/2 TABLETS BY MOUTH EVERY MORNING 135 Tablet 024 Active Methocarbamol 500 MG Oral Tablet (Robamol)Indicati ons:Chronic pain syndrome Take 1 Tablet by mouth in the morning and 1 Tablet at noon and 1 Tablet before bedtime. 90 Tablet 025 Active Albuterol Sulfate HFA 108 (90 Base) MCG/ACT Inhalation Aerosol SolutionIndicatio ns:COPD, group C, 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 ([facility]) Inhale 2 Puffs by mouth every 4 hrs as needed for Cough, Shortness of Breath or Withdrawal symptoms. 54 g 1 025 Active PARoxetine HCl 40 MG Oral Tablet (pAXil) Take 1 Tablet by mouth in the morning. 30 Tablet 025 Active predniSONE 5 MG Oral Tablet (Deltasone)Indica tions:COPD, frequent exacerbations (HCC) Take 1 Tablet by mouth in the morning. As directed. 30 Tablet 1 Active LORazepam 0.5 MG Oral Tablet (Ativan) Take 1 Tablet by mouth daily as needed for Anxiety. You will need to be seen in order to get subsequent refills. 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 90 Tablet 3 Active Midodrine HCl 5 MG Oral Tablet (Proamatine)Indic ations:Chronic diastolic congestive heart failure (HCC) Take 1 Tablet by mouth in the morning and 1 Tablet at noon and 1 Tablet before bedtime. 270 Tablet 3 Active predniSONE 20 MG Oral Tablet (Deltasone) Take 2 Tablets by mouth in the morning for 5 days. 10 Tablet 2024 Active Azithromycin 250 MG Oral Tablet (Zithromax) Take 2 tabs by mouth on the first day, then 1 tab daily on days two through five 6 Tablet 2024 Active Fluticasone-Salme terol 500-50 MCG/ACT Inhalation Aerosol Powder Breath Activated (Advair Diskus) Inhale 1 Puff by mouth in the morning and 1 Puff before bedtime. 60 Each 5 Active Trelegy Ellipta 100-62.5-25 MCG/ACT Aerosol Powder Breath Activated (Fluticasone-Umec lidinium-Vilanter ol) Inhale 1 Puff by mouth in the morning. 240 Blister Dosing Unit 2024 Discontinued Hospital, Clinic, or Other Facility Administered Medication Ordered Dose Route Frequency Start Date End Date Status Albuterol Sulfate (Proventil) (2.5 MG/3ML) 0.083% inhalation solution 2.5 mgIndications:COPD, group D, 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 ([facility]) 2.5 mg NEBULIZER ONCE PRN 04/28/2024 04/28/2025 Acti ve documented as of this encounter (statuses as of 01/12/2025) Active Problems Problem Noted Date Diagnosed Date [...] noted above Atherosclerotic heart diseas e of [place] coronary artery with other forms of angina [...] (05/30/2022 4:32 PM EDT): Appointment scheduled with [facility] pain clinic [place] 07/02. Statin intolerance 01/24/2022 Osteopenia 01/08/2022 LYNDON [...] use aero chamber. 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 Took high dose replacement. Due to repeat. Coronary artery disease invo lving [place] coronary artery of [place] heart without angina pectoris 11/12/2015 Assessment & Plan (01/22/2023 12:36 PM EST): Stable no angina -continue ASA, metoprolol xl, repatha. Can't tolerate delgado d/t low bp Dyslipidemia, goal LDL below 70 11/12/2015 Sicca syndrome 12/29/2014 Acquired hypothyroidism 12/29/2014 Assessment & Plan (01/22/2023 12:45 PM EST): Continue synthroid Old CO (myocardial infarction) 11/01/2013 Assessment & Plan (05/30/2022 [...] as of this encounter (statuses as of 01/12/2025) Resolved Problems Problem Noted Date Diagnosed Date [...] use aero chamber. Test performed by [employer]IE[employer] METEOROLOGIST CPFT Assessment & Plan (05/30/2022 4:27 PM [...] use aero chamber. Test performed by [employer]EOR[employer] CPFT COPD, group B, by GOLD 2017 [...] moderate 04/07/2012 10/05/2012 Overview (04/07/2012): PFT 03/2008 [facility] COPD, SEVERE 04/07/2012 05/04/2019 Overview: PER COPD PROTOCOL #24. PFT 03/2008 [facility] LAST PFT -06/07/12 Gastroesophageal reflux dise ase with esophagitis 04/30/2009 01/14/2022 Overview (05/15/2009): mild ADVANCE DIRECTIVE INFORMATION 12/02/2008 09/26/2024 Overview (12/02/2008): No, Advance Directive brochure offered , patient declined. COPD with emphysema 10/05/20 12 documented as of this encounter (statuses as of 01/12/2025) Immunizations Name Administration Dates Next Due COVID-19 mRNA, LNP-s, No Pre serve, 2-Dose Series ([employer]) 09/26/2022,11/18/2021,04/04/2021,02/28 COVID-19, MRNA-LNP, PF, 30 M CG/0.3 mL, 12 YRS AND ABOVE, IM ([facility] 10/21/2023 Covid-19, Mrna, Lnp-s, Pf, B ivalent, [...] 01/12/2025 Does the household have a re gular [...] of Assessment Author No 03/28/2021 5:37 AM YASMINET Valentino Child RN * Are you blind [...] documented in this encounter Progress Notes * Chiquis Vazquez RN - 01/12/2025 9:03 AM EST SITUATION: Acute HV for confusion yesterday BACKGROUND: Per Bria Adam, student life coordinator yesterday at 1806: ''Marisa L Jack is a 59 year old female whose / Lopez is calling [facility] to report his does not want to get OOB and has not had anything to eat in 2 days. When he asks her what is wrong she will not answer him other then "she feels sick." states his "seems confused" but knows who he is. states she is drinking fluids ,but not much. He is not sure if she is taking her medications. Patient is not complaining of any UTI symptoms. Her oxygen is currently off, checked her ox sat and results were 94%. Patient was able to squeeze her husbands hands equally and has no facial drooping. Informed there are no nurses available at this time of day for a HV. Suggested she go to the ED to be evaluated. then said the same thing with his a few months ago , she went to the ED and nothing was wrong. asking if a [facility] nurse can have a HV tomorrow. I then spoke with patient, she stated "she feels sick", but denied any pain, SOB, cough, UTI symptoms, nausea, vomiting or diarrhea. She said she did take her medications and is drinking, just not eating, "not sure why." '' ASSESSMENT: Increased sob, cough, fatigue x past 3 days Has slept most of that time, reports intermittent confusion, no confusion noted during visit Sputum yellow Denies fever, chills Mild pursed lip breathing and pause to talk Occasional tripoding No use of accessory muscles Using nebs qid Not taking Trelegy d/t cost, states has never taken Has taken Advair in past and has been able to afford it - willing to switch to Advair d/t cost Has not missed any oral med doses this week Drinking fluids, appetite poor [facility] had same s/s in September and ended up inpt at [facility] Was treated for bronchitis with prednisone and abx at that time Recommendations: Course of prednisone Z-pack (has tolerated well in past for 5 days course) [facility] Portable cxr F/u calls x2 days Above assessment and recommendations TT to Jerel Sam PA-C TREATMENT/PLAN: Exacerbation plan as above Fills own pill box O2 2LNC continuously ([employer]) takes to apts Gait steady without assistive device Continues to smoke but trying to quit Uses nebs qid at baseline - cleans nightly Encouraged to weigh daily and record [place] [facility] [place] [facility] Exam: Physical Exam Constitutional: Appearance: She is ill-appearing. HENT: Head: Normocephalic and atraumatic. Nose: Nose normal. Mouth/Throat: Mouth: Mucous membranes are moist. Eyes: Extraocular Movements: Extraocular movements intact. Cardiovascular: Rate and Rhythm: Normal rate and regular rhythm. Heart sounds: Normal heart sounds. Pulmonary: Effort: Pulmonary effort is normal. Breath sounds: Normal breath sounds. Comments: Diffuse wheezing. No tachypnea Abdominal: General: Bowel sounds are normal. There is no distension. Palpations: Abdomen is soft. Tenderness: There is no abdominal tenderness. Musculoskeletal: Cervical back: Neck supple. Right lower leg: No edema. Left lower leg: No edema. Skin: General: Skin is warm and dry. Capillary Refill: Capillary refill takes less than 2 seconds. Neurological: General: No focal deficit present. Mental Status: She is alert and oriented to person, place, and time. Mental status is at baseline. Gait: Gait normal. Psychiatric: Mood and Affect: Mood normal. Judgment: Judgment normal. Review of Systems: Review of Systems Constitutional: Positive for fatigue (easily fatigued but has improved over time). Eyes: Negative. Respiratory: Positive for cough (chronic with white sputum - at baseline) and shortness of breath (CRUZ at baseline with use of o2 2lnc). Cardiovascular: Negative. Gastrointestinal: Negative. Endocrine: Negative. Genitourinary: Negative. Musculoskeletal: Negative. Skin: Negative. Allergic/Immunologic: Negative. Neurological: Negative. Hematological: Negative. Psychiatric/Behavioral: Negative. All other systems reviewed and are negative. Care Plan Goal Progress: GS - Patient/caregiver will verbalize an understanding of importance of notifying health care manager/provider with an increase in difficulty breathing. (Progressing) Start: 12/28/24 Expected End: 03/28/25 Goal Note Aware of s/s exacerbation, called with change in s/s Orders Placed: Plan XR Chest 2 Views predniSONE 20 MG Oral Tablet (Deltasone) Azithromycin 250 MG Oral Tablet (Zithromax) Fluticasone-Salmeterol 500-50 MCG/ACT Inhalation Aerosol Powder Breath Activated (Advair Diskus) Medications Given: Care Gaps: Care Gaps Care gaps closed this contact: Education;Medications;Plan of Care (POC);Rescue kit orderd;Social determinants of health (SDOH) resources (01/12/251057) Type of education: Clinical/disease;Educated on the benefits of connecting with their PCP () Type of medication care gap: Medication omittance (d/t cost) (01/12/251057) Type of plan of care (POC) care gap: Education and review of exacerbation plan;Adjustment of plan of care (POC) and/or Integrated Care Plan (ICP) (01/12/251057) Type of SDOH resource: Financial assistance (med cost) (01/12/251057) documented in this encounter Plan of Treatment Upcoming Encounters Date Type Department Care Team (Late st Contact Info) Description 01/13/2025 10:30 AM EST Scheduled Telephone [facility], [facility] [address] [place] [address] [facility], Nurse [place] [address] [place] [address] 01/14/2025 9:00 AM EST Scheduled Telephone [facility], [facility] [address] [place] [address] [facility], Nurse [place] [address] [place] [address] 01/19/2025 4:00 PM EST Office Visit Family Practice [facility] [address] [place] [address] Ludy Jacobs CRNP [address] [place] [id number] 02/09/2025 1:00 PM EDT Home Visit [facility] [place], [facility] [address] [place] [address] Jerel Sam PA-C [address] [place] [address] 02/13/2025 3:30 PM EDT Telemedicine Care at Home [address] [place] [address] Lulu Yee PA-C [address] [place] [address] 02/14/2025 3:00 PM EDT Laboratory Laboratory, [facility] [address] [place] [id number] [facility] [address] [place] [address] 02/17/2025 5:30 PM EDT [facility] [address] [place] [address] [email or web address], Pharmacist Cardiology H[facility] [address] [place] [address] 02/28/2025 3:30 PM EDT Telemedicine [facility], [place] [address] [place] [address] [email or web address], Pharmacist Cardiology [facility] [address] [place] [address] 03/10/2025 9:40 AM EDT Home Visit [facility] Coordination [facility] Integration [address] [place] [address] Nevin Choudhary, Community Health Air Pollution Specialist [address] [place] [address] 04/14/2025 3:00 PM EDT Home Visit [facility], [facility] [address] [facility] [place] [address] Chiquis Vazquez, RN [address] [facility] [place] [address] 05/15/2025 4:30 PM EDT Imaging Radiology [facility] 1st Floor, [place] [address] [facility] [place] [phone] 07/03/2025 3:00 PM EDT Office Visit Pulmonary Medicine, [facility] [address] [facility] [place] [address] Sony Duong MD [address] [place] [address] 07/17/2025 3:30 PM EDT Office Visit Cardiology, [facility] [address] [facility] [place] [address] Angeline Madsen PA-C [address] [facility] [place] [phone] Scheduled Orders Name Type Priority Associated Diagnoses Orde r Schedule XR CHEST 2 VIEWS Medical Imaging STAT COPD, group D, 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 (HCC) Ordered: 01/12/2025 Scheduled Procedures Name Priority Associated Diagnoses Date/Ti [...] 2) 03/06/2021 01/09/2021 CKD PHOS USE SMARTSET [id number] 03/29/2022 03/29/2021, 0 03/28/2021 Albumin/Creatinine Ratio 09/29/2023 09/29/2022, 05/0 03/2021 Mammogram 03/02/2024 03/02/2023, 04, 11/04/2016, Additional history exists COVID-19 Vaccine ( season) 2024 10/21/2023, 09/26/2022, 09/26/2022, Additional history exists Cervical Cancer Screening 12/04/2024 Pap Smear 12/04/2024 12/04/2021, 02/21, 03/03/2016, Additional history exists GFR 01/30/2025 08/02/2024, 06/0 04/2024, 04/05/2024, Additional history exists CKD HGB USE SMARTSET [id number] 08/02/202508/02, 08/02/2024, 04/28/2024, Additional history exists TSH [...] 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 (HCC) Hypotension, unspecified hypotension type Old CO (myocardial infarction) Old myocardial infarction Lung nodules Other nonspecific abnormal finding of lung field Other chronic pain Advanced care planning/counseling discussion- Primary Other specified counseling Generalized anxiety disorder Major depressive disorder, recurrent episode, moderate (HCC) Major depressive disorder, recurrent episode, moderate Cerebellar hemangioma (HCC) Hemangioma of intracranial structures Atherosclerotic heart disease of [place] coronary artery with other forms of angina pectoris (HCC) Coronary artery disease involving [place] coronary artery of [place] heart without angina pectoris Acquired hypothyroidism Unspecified hypothyroidism Dyslipidemia, goal LDL below 70 Other and unspecified hyperlipidemia HFrEF (heart failure with reduced ejection fraction) (HCC) Other specified hypotension Acute on chronic respiratory failure with hypoxia (HCC) COPD, group C, 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 ([facility]) Neuropathic pain Neuralgia, neuritis, and radiculitis, unspecified LYNDON (generalized anxiety disorder) Generalized anxiety disorder Tobacco use disorder Vomiting and diarrhea Vomiting alone Sicca syndrome (HCC) Sicca syndrome COPD, group D, 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 ([facility])- Primary documented in this encounter Advance Directives * [...] Agents on File Name Relationship Healthcare Agent [facility] p Communication Lopez Brown Spouse First Alternate Health Care Agent [place] Adult Child Health Care Agent Care Teams Glass Artist Relationship Specialty Start Date End Date Ludy Jacobs CRNP [address] [place] [address] PCP - General Nurse Practitioner 04/20/24 documented as of this encounter
--- OUTSIDE RECORDS SUMMARY | 2025-01-15 19:42 | External Medical Summary | Summary of Care ---
Author Name Unknown Organization [facility] Address [address] [facility] [place] [address] Phone [phone] Care Team Providers Care Header Boss Name Role Phone Ludy Jacobs Primary Care Provider Reason for Visit * Reason Onset Date Comments [facility]: Maintenance 01/13/2025 Encounter Details Date Type Department Care Team (Late st Contact Info) Description 01/13/2025 10:30 AM EST Scheduled Telephone [facility], [facility] [address] [facility] [place] [address] [facility], Nurse [facility] [place] [address] [facility] [place] [address] Allergies Active Allergy Reactions Criticality Noted Date [...] VALVED HOLDING CHAMBER DEVIIndications:CO PD with emphysema ([facility]) to be used with inhalers [...] COPD, group C, 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 ([facility]),Chronic hypoxemic respiratory failure ([facility]) Use with nebulized medications 1 Each 07/24/20 22 Active Full Kit Nebulizer SetIndications: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, 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, 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 ([facility]),Chronic hypoxemic respiratory failure ([facility]) Use with nebulizer 1 Each 07/24/20 22 Active Syringe 25G X 1-1/2" 3 ML Use for intramuscular B12 injection 1 Each 10/02/20 22 Active Albuterol Sulfate (2.5 MG/3ML) 0.083% Inhalation Nebulization Solution (Proventil)Indicat ions:COPD, group D, 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 ([facility]) Inhale 1 Vial via nebulizer [...] s:COPD, group C, 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 ([facility]) Inhale 2 Puffs by mouth [...] mgIndications:COPD, group D, 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 ([facility]) 2.5 mg NEBULIZER ONCE PRN [...] noted above Atherosclerotic heart diseas e of igiugig coronary artery with other forms of angina [...] scheduled with [facility] pain clinic [place] 07/02. Statin intolerance 01/24/2022 Osteopenia 01/08/2022 LYNDON [...] use aero chamber. Test performed by Flex MANAGER VAN CPFT Circadian rhythm sleep disorder 09/17/2018 Nocturnal hypoxemia due to emphysema 07/30/2018 Adjustment disorder with mixed anxiety and depre ssed mood 07/04/2018 TERMINATED MEDICATION USAGE AGREEMENT 06/03/2018 Dupuytren's contracture of left hand 02/01/2018 Mixed incontinence urge and stress (male)(female ) 03/20/2017 Vitamin D deficiency 03/03/2016 Overview (03/03/2016): March 2015 = 13. Took high dose replacement. Due to repeat. Coronary artery disease invo lving igiugig coronary artery of igiugig heart without angina pectoris 11/12/2015 Assessment & Plan (01/22/2023 12:36 PM EST): Stable no angina -continue ASA, metoprolol xl, repatha. Can't tolerate delgado d/t low bp Dyslipidemia, goal LDL below 70 11/12/2015 Sicca syndrome 12/29/2014 Acquired hypothyroidism 12/29/2014 Assessment & Plan (01/22/2023 12:45 PM EST): Continue synthroid Old [place] (myocardial infarction) 11/01/2013 Assessment & Plan (05/30/2022 [...] use aero chamber. Test performed by Flex MANAGER VAN CPFT Assessment & Plan (05/30/2022 4:27 PM [...] use aero chamber. Test performed by Flex MANAGER VAN CPFT COPD, group B, by GOLD 2017 [...] moderate 04/07/2012 10/05/2012 Overview (04/07/2012): PFT 03/2008 [facility] COPD, SEVERE 04/07/2012 05/04/2019 Overview: PER COPD PROTOCOL #24. PFT 03/2008 [facility] LAST PFT -06/07/12 Gastroesophageal reflux dise ase with esophagitis 04/30/2009 01/14/2022 Overview (05/15/2009): mild ADVANCE DIRECTIVE INFORMATION 12/02/2008 09/26/2024 Overview (12/02/2008): No, Advance Directive brochure offered , patient declined. COPD with emphysema 10/05/20 12 documented as of this encounter (statuses as of 01/13/2025) Immunizations Name Administration Dates Next Due COVID-19 mRNA, LNP-s, No Pre serve, 2-Dose Series ([employer]) 09/26/2022,11/18/2021,04/04/2021,02/28 COVID-19, MRNA-LNP, PF, 30 M CG/0.3 mL, 12 YRS AND ABOVE, IM (Gunosy-Comirnaty) 10/21/2023 Covid-19, Mrna, Lnp-s, Pf, B ivalent, [...] chest xray between 5:30-7:30 Bria Adam RN [facility] Registered Nurse Navigator Triage * Telephone Encounter - Bria Adam RN - 01/13/2025 3:36 PM EST [facility] and was informed patient was called several times yesterday and and did not answer the phone, she was left a return number to call the [employer] tech and did not. [employer] will attempt to call patient again to schedule. Also provided [employer] with patients husbands phone number to contact. I called patient , she did not answer, I left her a message for her to check her voice mail and call [employer] tech back to schedule chest x-ray. Bria Adam RN [facility] Registered Nurse Navigator Triage * Telephone Encounter - Bria Adam RN - 01/13/2025 1:31 PM EST [facility] Telephonic Nurse Follow-Up Call [facility] Subprogram: No data was found Follow [...] today after work. [facility] has not done chest xray yet or called her with arrival time. I called [facility], spoke with Lelo, she will check on ETA and someone will be calling me back [facility] to inform me when chest xray will be done. Disposition: Routed to [facility] and/or [facility] [place] Care Team for further advice Future Visits Scheduled: Future Appointments-next 60 days Date/Time Provider Specialty Dept Phone 01/14/2025 9:00 AM [facility], Nurse [facility] Andrew [facility] [phone] 01/19/2025 4:00 PM (Arrive by 3:45 PM) Ludy Jacobs CRNP Family Medicine [phone] 02/09/2025 1:00 PM Jerel Sam PA-C [facility] [phone] 02/13/2025 3:30 PM Lulu Yee PA-C Family Medicine [phone] 02/14/2025 3:00 PM Daniel Zaman [facility] Laboratory [phone] 02/17/2025 5:30 PM Garrett, Pharmacist Cardiology [facility] Cardiology [phone] 02/28/2025 3:30 PM Garrett, Pharmacist Cardiology [facility] Cardiology Arrive at: Patient's Home [phone] 03/10/2025 9:40 AM Nevin Choudhary, [facility] Ivory Polisher [facility] [phone] 04/14/2025 3:00 PM Chiquis Vazquez RN [facility] [phone] 05/15/2025 4:30 PM CT1 [facility] Radiology [phone] 07/03/2025 3:00 PM (Arrive by 2:45 PM) Sony Duong MD Pulmonary [phone] 07/17/2025 3:30 PM (Arrive by 3:15 PM) Angeline Madsen PA-C Cardiology [phone] Bria Adam RN [facility] Registered Nurse Navigator Triage documented in this encounter Plan of Treatment Upcoming Encounters Date Type Department Care Team (Late st Contact Info) Description 01/14/2025 9:00 AM EST Scheduled Telephone [facility], [facility] [address] [place] [address] [facility], Nurse [facility] [address] [place] [address] 01/19/2025 4:00 PM EST Office Visit Family Practice [facility] [address] [place] [address] Ludy Jacobs CRNP [address] [place] [address] 02/09/2025 1:00 PM EDT Home Visit [facility], [facility] [address] [place] [address] Jerel Sam PA-C [address] [place] [address] 02/13/2025 3:30 PM EDT Telemedicine Care at Home [address] [place] [address] Lulu Yee PA-C [address] [place] [address] 02/14/2025 3:00 PM EDT Laboratory Laboratory, [facility] [address] [facility] [place] [phone] [facility] [address] [facility] [place] [address] 02/17/2025 5:30 PM EDT Pharmacy Cardiology [facility], [place] [address], [place] [id number] [place] [address], Pharmacist Cardiology [facility] [address] [place] [address] 02/28/2025 3:30 PM EDT Telemedicine Cardiology [facility], [place] [address] [place] [address] [place] [address], Pharmacist Cardiology [facility] [address] [place] [address] 03/10/2025 9:40 AM EDT Home Visit Care Coordination and Integration [address] [place] [address] Nevin Choudhary, [facility] Ivory Polisher [address] [place] [address] 04/14/2025 3:00 PM EDT Home Visit [facility], [facility] [address] [facility] [place] [address] Chiquis Vazquez, RN [address] [facility] [place] [address] 05/15/2025 4:30 PM EDT Imaging Radiology [facility] [address] [facility] [place] [phone] 07/03/2025 3:00 PM EDT Office Visit Pulmonary Medicine, [facility] [address] [facility] [place] [address] Sony Duong MD [address] [place] [address] 07/17/2025 3:30 PM EDT Office Visit Cardiology, [facility] [address] [facility] [place] [address] Angeline Madsen PA-C [address] [facility] [place] [address] Scheduled Procedures Name Priority Associated Diagnoses Date/Ti [...] 2) 03/06/2021 01/09/2021 CKD PHOS USE SMARTSET 18120 03/29/2022 03/29/2021, 0 03/28/2021 Albumin/Creatinine Ratio 09/29/2023 09/29/2022, 05/0 03/2021 Mammogram 03/02/2024 03/02/2023, 02/21, 11/04/2016, Additional history exists COVID-19 Vaccine ( season) 2024 10/21/2023, 09/26/2022, 09/26/2022, Additional history exists Cervical Cancer Screening 12/04/2024 Pap Smear 12/04/2024 12/04/2021, 02/21, 03/03/2016, Additional history exists GFR 01/30/2025 08/02/2024, 06/0 04/2024, 04/05/2024, Additional history exists CKD HGB USE SMARTSET 86586 08/02/202508/02, 08/02/2024, 04/28/2024, Additional history exists TSH [...] File Name Relationship [facility] Lopez Brown Spouse First Alternate Health Care Agent [place] Adult Child Health Care Agent Care Teams Header Boss Relationship Specialty Start Date End Date Ludy Jacobs CRNP [address] [place] [phone] PCP - General Nurse Practitioner 04/20/24 documented as of this encounter
--- OUTSIDE RECORDS SUMMARY | 2025-01-15 19:42 | External Medical Summary | Summary of Care ---
Author Name Unknown Organization [facility] Address [address] [facility] [place] [address] Phone [phone] Care Team Providers Care Oyster Washer Name Role Phone Ludy Jacobs Primary Care Provider Reason for Visit * Reason Onset Date Comments [facility]: Maintenance 01/12/2025 Encounter Details Date Type Department Care Team (Late st Contact Info) Description 01/12/2025 11:45 AM EST Scheduled Telephone [facility], [facility] [address] [place] [address] Coordinator, [facility] [address] [place] [address] Allergies Active Allergy Reactions Criticality Noted Date [...] as of 01/12/2025) Medications VALVED HOLDING CHAMBER DEVIIndications:CO PD with [...] Each 07/24/20 22 Active Full Kit Nebulizer SetIndications: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 Statin intolerance 01/24/2022 Osteopenia 01/08/2022 LYNDON [...] use aero chamber. 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 Took high dose replacement. Due to repeat. Coronary artery disease invo lving jackson coronary artery of jackson heart without angina pectoris 11/12/2015 Assessment & Plan (01/22/2023 12:36 PM EST): Stable no angina -continue ASA, metoprolol xl, repatha. Can't tolerate delgado d/t low bp Dyslipidemia, goal LDL below 70 11/12/2015 Sicca syndrome 12/29/2014 Acquired hypothyroidism 12/29/2014 Assessment & Plan (01/22/2023 12:45 PM EST): Continue synthroid Old [place] (myocardial infarction) 11/01/2013 Assessment & Plan (05/30/2022 [...] use aero chamber. Test performed by Flex DIE CLEANER CPFT Assessment & Plan (05/30/2022 4:27 PM [...] use aero chamber. Test performed by Flex DIE CLEANER CPFT COPD, group B, by GOLD 2017 [...] moderate 04/07/2012 10/05/2012 Overview (04/07/2012): PFT 03/2008 [facility] COPD, SEVERE 04/07/2012 05/04/2019 Overview: PER COPD PROTOCOL #24. PFT 03/2008 [facility] LAST PFT -06/07/12 Gastroesophageal reflux dise ase with esophagitis 04/30/2009 01/14/2022 Overview (05/15/2009): mild ADVANCE DIRECTIVE INFORMATION 12/02/2008 09/26/2024 Overview (12/02/2008): No, Advance Directive brochure offered , patient declined. COPD with emphysema 10/05/20 12 documented as of this encounter (statuses as of 01/12/2025) Immunizations Name Administration Dates Next Due COVID-19 mRNA, LNP-s, No Pre serve, 2-Dose Series ([employer]) 09/26/2022,11/18/2021,04/04/2021,02/28 COVID-19, MRNA-LNP, PF, 30 M CG/0.3 mL, 12 YRS AND ABOVE, IM (kissnofrog-Comirnaty) 10/21/2023 Covid-19, Mrna, Lnp-s, Pf, B ivalent, [...] encounter Miscellaneous Notes * Telephone Encounter - Dorys Ray LPN - 01/12/2025 1:20 PM EST Patient was seen today by RNCM, no call needed documented in this encounter Plan of Treatment Upcoming Encounters Date Type Department Care Team (Late st Contact Info) Description 01/13/2025 10:30 AM EST Scheduled Telephone [facility] [place], [facility] [address] [facility] [place] [address] [facility] Nurse [facility] [address] [place] [address] 01/14/2025 9:00 AM EST Scheduled Telephone [facility], [facility] [address] [place] [address] [facility], Nurse [facility] [address] [place] [place] [address] 01/19/2025 4:00 PM EST Office Visit Family Practice [facility] [address] [place] [address] Ludy Jacobs CRNP [address] [place] [address] 02/09/2025 1:00 PM EDT Home Visit [facility], [facility] [address] [place] [address] Jerel Sam PA-C [address] [place] [address] 02/13/2025 3:30 PM EDT Telemedicine Care at Home [address] [place] [address] Lulu Yee PA-C [address] [place] [address] 02/14/2025 3:00 PM EDT Laboratory Laboratory, [facility] [address] [place] [phone] ZamanDaniel pardos [facility] [place] [address] 02/17/2025 5:30 PM EDT Pharmacy Cardiology [facility], [place] [address] [place], [place] [id number] [place], Pharmacist Cardiology [facility] [address] [place] [address] 02/28/2025 3:30 PM EDT Telemedicine Cardiology [facility] [address] [place] [address] [place], Pharmacist Cardiology [facility] [address] [place] [address] 03/10/2025 9:40 AM EDT Home Visit Care Coordination and Integration [address] [place] [address] Nevin Choudhary, [facility] [employer] [address] [place] [address] 04/14/2025 3:00 PM EDT Home Visit [facility] at [facility] [address] [facility] [place] [address] Chiquis Vazquez, RN [address] [facility] [place] [address] 05/15/2025 4:30 PM EDT Imaging Radiology [address] [facility] [place] [phone] 07/03/2025 3:00 PM EDT Office Visit Pulmonary Medicine, [facility] [address] [facility] [place] [address] Sony Duong MD [address] [place] [address] 07/17/2025 3:30 PM EDT Office Visit Cardiology, [facility] [address] [facility] [place] [address] Angeline Madsen, PAMilanC [address] [facility] [place] [address] Scheduled Procedures Name Priority Associated Diagnoses Date/Ti [...] 2) 03/06/2021 01/09/2021 CKD PHOS USE SMARTSET 85037 03/29/2022 03/29/2021, 0 03/28/2021 Albumin/Creatinine Ratio 09/29/2023 09/29/2022, 05/0 03/2021 Mammogram 03/02/2024 03/02/2023, 02/21, 11/04/2016, Additional history exists COVID-19 Vaccine ( season) 2024 10/21/2023, 09/26/2022, 09/26/2022, Additional history exists Cervical Cancer Screening 12/04/2024 Pap Smear 12/04/2024 12/04/2021, 02/21, 03/03/2016, Additional history exists GFR 01/30/2025 08/02/2024, 06/0 04/2024, 04/05/2024, Additional history exists CKD HGB USE SMARTSET 32065 08/02/202508/02, 08/02/2024, 04/28/2024, Additional history exists TSH [...] Agents on File Name Relationship Healthcare [facility] Communication Lopez Brown Spouse First Alternate Health Care Agent [place] Adult Child Health Care Agent Care Teams Oyster Washer Relationship Specialty Start Date End Date Ludy Jacobs CRNP [address] [place] [address] PCP - General Nurse Practitioner 04/20/24 documented as of this encounter
--- OUTSIDE RECORDS SUMMARY | 2025-01-15 19:43 | External Medical Summary | Summary of Care ---
Author Name Unknown Organization [facility] Address [address] [place] [address] Phone [phone] Care Team Providers Care Cs Associate Name Role Phone Ludy Jacobs Primary Care Provider Reason for Visit * Reason Onset Date Comments [facility]: Acute 01/11/2025 Encounter Details Date Type Department Care Team (Late st Contact Info) Description 01/11/2025 Telephone [facility], [facility] [address] [facility] [place] [address] [facility], Nurse [facility] [address] [facility] [address] [facility]: Acute Allergies Active Allergy Reactions Criticality Noted Date [...] VALVED HOLDING CHAMBER DEVIIndications:CO PD with emphysema ([facility]) to be used with inhalers as instructed 1 Device 2 10/12/20 12 Active Additional Information Patient not taking.Informant: Transferring Facility Documents, Reported on 12/05/2024 oxygen GAS 2 LPM via NC during hours of sleep 1 Each 03/16/20 18 Active Additional Information Patient taking differently: 2 L/min(Oxygen), 2 LPM via NC all day and during hours, Informant: Transferring Facility Documents, Reported on 01/02/2025 Nebulizers (NEBULIZER COMPRESSOR) MISC Inhale via nebulizer. [...] COPD, group C, 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 ([facility]),Chronic hypoxemic respiratory failure ([facility]) Use with nebulized medications 1 Each 07/24/20 22 Active Full Kit Nebulizer SetIndications:J2EE CONSULTANT D, group C, 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 ([facility]),Chronic hypoxemic respiratory failure ([facility]) Use with nebulizer 1 Each 07/24/20 22 Active Syringe 25G X 1-1/2" 3 ML Use for intramuscular B12 injection 1 Each 10/02/20 22 Active Albuterol Sulfate (2.5 MG/3ML) 0.083% Inhalation Nebulization Solution (Proventil)Indicat ions:COPD, group D, 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 ([facility]) Inhale 1 Vial via nebulizer [...] s:COPD, group C, 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 ([facility]) Inhale 2 Puffs by mouth [...] subsequent refills. 30 Tablet 12/30/19 25 Active Trelegy Ellipta 100-62.5-25 MCG/ACT Aerosol Powder Breath Activated (Fluticasone-Umecl idinium-Vilanterol ) Inhale 1 Puff by mouth in the morning. 240 Blister Dosing Unit 01/02/20 25 025 Active Entresto 24-26 MG Oral Tablet (sacubitril-valsar [...] bedtime. 270 Tablet 3 01/06/20 25 Active Hospital, Clinic, or Other Facility Administered Medication Ordered Dose Route Frequency Start Date End Date Status Albuterol Sulfate (Proventil) (2.5 MG/3ML) 0.083% inhalation solution 2.5 mgIndications:COPD, group D, 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 ([facility]) 2.5 mg NEBULIZER ONCE PRN [...] noted above Atherosclerotic heart diseas e of [place] coronary artery with other forms of angina [...] (05/30/2022 4:32 PM EDT): Appointment scheduled with [facility] pain clinic [place] 07/02. Statin intolerance 01/24/2022 Osteopenia 01/08/2022 LYNDON [...] use aero chamber. Test performed by [employer] LEAD DRIVER CPFT Circadian rhythm sleep disorder 09/17/2018 Nocturnal hypoxemia due to emphysema 07/30/2018 Adjustment disorder with mixed anxiety and depre ssed mood 07/04/2018 TERMINATED MEDICATION USAGE AGREEMENT 06/03/2018 Dupuytren's contracture of left hand 02/01/2018 Mixed incontinence urge and stress (male)(female ) 03/20/2017 Vitamin D deficiency 03/03/2016 Overview (03/03/2016): March 2015 = 13. Took high dose replacement. Due to repeat. Coronary artery disease invo lving [place] coronary artery of [place] heart without angina pectoris 11/12/2015 Assessment & Plan (01/22/2023 12:36 PM EST): Stable no angina -continue ASA, metoprolol xl, repatha. Can't tolerate delgado d/t low bp Dyslipidemia, goal LDL below 70 11/12/2015 Sicca syndrome 12/29/2014 Acquired hypothyroidism 12/29/2014 Assessment & Plan (01/22/2023 12:45 PM EST): Continue synthroid Old OH (myocardial infarction) 11/01/2013 Assessment & Plan (05/30/2022 [...] use aero chamber. Test performed by [employer] LEAD DR[employer] CPFT Assessment & Plan (05/30/2022 4:27 PM [...] use aero chamber. Test performed by Flex LEAD DRIVER CPFT COPD, group B, by GOLD 2017 [...] 04/07/2012 10/05/2012 Overview (04/07/2012): PFT 03/2008 [facility] COPD, SEVERE 04/07/2012 05/04/2019 Overview: PER COPD PROTOCOL #24. PFT 03/2008 [facility] LAST PFT -06/07/12 Gastroesophageal reflux dise ase with esophagitis 04/30/2009 01/14/2022 Overview (05/15/2009): mild ADVANCE DIRECTIVE INFORMATION 12/02/2008 09/26/2024 Overview (12/02/2008): No, Advance Directive brochure offered , patient declined. COPD with emphysema 10/05/20 12 documented as of this encounter (statuses as of 01/12/2025) Immunizations Name Administration Dates Next Due COVID-19 mRNA, LNP-s, No Pre serve, 2-Dose Series ([employer]) 09/26/2022,11/18/2021,04/04/2021,02/28 COVID-19, MRNA-LNP, PF, 30 M CG/0.3 mL, 12 YRS AND ABOVE, IM ([facility]) 10/21/2023 Covid-19, Mrna, Lnp-s, Pf, B ivalent, 30 Mcg, IM, 12 yrs and above ([employer]) 09/26/2022 HEPATITIS B VACCINE, RECOMB, 20 MCG/ML, [...] the money to buy more. Never true 12/27/19 25 Within the past 12 months, t he food you bought just didn't last and you didn't have money to get more. Never true 12/27/2024 Childcare Answer Date Recorded Do you feel overwhelmed with taking care of a child, family member or friend? No 12/27/2024 Does your family need help f inding childcare? (Household - for ages 0-17 years) Not on file 12/27/2024 Clothing Answer Date Recorded Have you been unable to get clothing when it was really needed? No 12/27/2024 Is your family able to get c lothes or diapers when needed? (Household - for ages 0-17 years) Not on file 12/27/2024 Personal Safety Answer Date Recorded Do you feel unsafe or have concerns for your saf ety? No 12/27/2024 Do you have concerns for you r family's safety? (Household - for ages 0-17 years) Not on file 12/27/2024 Utilities Answer Date Recorded Do you have trouble paying y our heating, water, or electric bill? No 12/27/2024 Is your family able to pay t he heat, water, or electric bill? (Household - for ages 0-17 years) Not on file 12/27/2024 Does your family have access to good internet? (Household - for ages 0-17 years) Not on file 12/27/2024 Employment Status Answer Date Recorded Are you unemployed or without regular income? No 12/27/2024 Does the household have a [facility] source of income? (Household - for ages 0-17 years) Not on file 12/27/2024 Social Connections Answer Date Recorded How often do you feel lonely or isolated from th ose around you? Never 12/27/2024 Financial Resource Strain Answer Date R ecorded Do you have any trouble payi ng for your medications, or do you think you might in the future? Yes 12/27/2024 Does your family have troubl e paying for medicine? (Household - for ages 0-17 years) Not on file 12/27/2024 Transportation Needs Answer Date Record ed Do you have trouble getting a ride to medical visits or work? (Adult - for ages 18 years and over) Not on file 12/27/2024 Does your family have a hard time getting a ride to doctors visits? (Household - for ages 0-17 years) Not on file 12/27/2024 Has lack of transportation k ept you from medical appointments, meetings, work, or from getting things needed for daily living? Check all that apply. No 12/27/2024 Do you (or your family) have trouble finding or paying for a ride (transportation)? (Household - for ages 0-17 years) Not on file 12/27/2024 Housing Stability Answer Date Recorded Do you currently live in a s helter or have no steady place to sleep at night? Yes 12/27/2024 Do you think you are at risk of becoming homeless? (Adult - for ages 18 years and over) Not on file 12/27/2024 Does your family worry about paying for your home or becoming homeless? (Household - for ages 0-17 years) Not on file 0 12/27/2024 Are you homeless or worried that you might be in the future? Yes 12/27/2024 Are you (or your family) hieu eless [...] the money to buy more. Never true 12/27/19 25 Within the past 12 months, t he food you bought just didn't last and you didn't have money to get more. Never true 12/27/2024 Do you need food for this week? Yes 12/27/2024 Comments No Sex and Gender Information Value [...] Telephone Encounter - Bria Adam RN - 01/11/2025 5:37 PM EST [facility] Acute Call Date: 01/11/2025 Time: 5:38 PM Name: Marisa Brown : 1965 Caller: Lopez Relationship to : HPI: Marisa Brown is a 59 year old female whose / Lopez is calling [facility] report his does not want to get [...] and nothing was wrong. asking if a [facility] nurse can have a HV tomorrow. I then spoke with patient, she stated "she feels sick", but denied any pain, SOB, cough, UTI symptoms, nausea, vomiting or diarrhea. She said she did take her medications and is drinking, just not eating, "not sure why." Nursing Assessment: Patient's chief complaint for this call: Other, describe refuses to get OOB and not eating Pain Denies pain Baseline Assessment Able to performing ADLs at baseline (walking, daily tasks, etc.): No Chief Complaint is related to a chronic condition: Unknown Patient prescribed oxygen? Yes, 2L/min Patient has been ordered DME equipment (assistive devices, respiratory equipment, etc.): Yes Describe DME devices: oxygen and nebulizer Patient is using DME device as directed: Unknown Medication Reconciliation: (See medication list) Received flu shot this season: Yes Taking medication as ordered: Unknown Medications ordered/taking to treat reason for call: No Heart failure symptoms: Unknown COPD exacerbation symptoms: Unknown Reinforcement Education: Stay hydrated Take medications Call 911 if condition changes or worsens tonight Treatment/Plan: (need to report) Level of call: Acute Appointment scheduled for same day: no, TT to Chiquis ASMPSON for HV in am Await [facility] recommendations Bria Adam RN [facility] Registered Nurse Navigator Triage Communication Note Name: Marisa Brown Situation: 59 year old female, called and stated patient will not get OOB , nothing to eat in 2 days. She told him "she is sick ", but unsure why. said she is confused but does know who he is. Patient denies any pain, SOB, cough, UTI symptoms, nausea , vomiting or diarrhea. Patient said she is drinking fluids and taking medications, not sure about the medications. Ox sat was 94%on RA, no facial drooping , hand grasps equal Background: Hx angioplasty, cerebellar hemangioma, old OH, emphysema, CHF, LYNDON,PTSD, COPD, CKD Assessment: not eating, not getting OOB, ? confusion Recommendation: ED evaluation tonpartha, requested [facility] HV in AM Care team availability: TT sent to Chiquis Vazquez RNCM to have HV in am Bria Adam RN [place] Registered Nurse Navigator Triage documented in this encounter Plan of Treatment Upcoming Encounters Date Type Department Care Team (Late st Contact Info) Description 01/19/2025 4:00 PM EST Office Visit Family Practice [facility] [address] [facility] [place] [address] Ludy Jacobs CRNP [address] [facility] [place] [phone] 02/09/2025 1:00 PM EDT Home Visit [facility] [place], [facility] [address] [place] [address] Jerel Sam PA-C [address] [place] [phone] 02/13/2025 3:30 PM EDT Telemedicine Care at Home [address] [place] [address] Lulu Yee PA-C [address] [place] [address] 02/14/2025 3:00 PM EDT Laboratory Laboratory, [facility] [address] [place] [phone] Daniel Zamans [address] [place] [address] 02/17/2025 5:30 PM EDT Pharmacy [facility], [place] [address] [place] [address] [place], Pharmacist Cardiology [facility] [address] [place] [address] 02/28/2025 3:30 PM EDT Telemedicine [facility], [place] [address] [place] [address] [place], Pharmacist Cardiology [facility] [address] [place] [address] 03/10/2025 9:40 AM EDT Home Visit [facility] [address] [place] [address] Nevin Choudhary, Community [facility] Router Setter [address] [place] [address] 04/14/2025 3:00 PM EDT Home Visit [facility] [place], [facility] [address] [facility] [place] [address] Chiquis Vazquez, RN [address] [facility] [place] [address] 05/15/2025 4:30 PM EDT Imaging Radiology [facility] [address] [facility] [place] [phone] 07/03/2025 3:00 PM EDT Office Visit Pulmonary Medicine, [facility] [address] [facility] [place] [address] Sony Duong MD [address] [place] [address] 07/17/2025 3:30 PM EDT Office Visit Cardiology, [facility] [address] [facility] [place] [address] Angeline Madsen PA-C [address] [place] [phone] Scheduled Procedures Name Priority Associated Diagnoses Date/Ti [...] 2) 03/06/2021 01/09/2021 CKD PHOS USE SMARTSET 34960 03/29/2022 03/29/2021, 0 03/28/2021 Albumin/Creatinine Ratio 09/29/2023 09/29/2022, 05/0 03/2021 Mammogram 03/02/2024 03/02/2023, 02/21, 11/04/2016, Additional history exists COVID-19 Vaccine ( season) 2024 10/21/2023, 09/26/2022, 09/26/2022, Additional history exists Cervical Cancer Screening 12/04/2024 Pap Smear 12/04/2024 12/04/2021, 02/21, 03/03/2016, Additional history exists GFR 01/30/2025 08/02/2024, 06/0 04/2024, 04/05/2024, Additional history exists CKD HGB USE SMARTSET 15290 08/02/202508/02, 08/02/2024, 04/28/2024, Additional history exists TSH 08/02/2025 08/02/2024, 06/0 04/2024, 03/06/2023, Additional history exists Depression Monitoring 12/27/2025 12/27/2024 O2 ASSESSMENT COMPLETED IN PAST YEAR FOR COPD 01/02/2026 01/02/2025 Colonoscopy 04/30/2026 04/30/2023, 06/0 06/2023, 11/28/2019, Additional [...] Agents on File Name Relationship Healthcare Agent [facility] p Communication Lopez Brown Spouse First Alternate Health Care Agent [place] Adult Child Health Care Agent Care Teams Cs Associate Relationship Specialty Start Date End Date Ludy Jacobs CRNP [address] [place] [address] PCP - General Nurse Practitioner 04/20/24 documented as of this encounter
--- OUTSIDE RECORDS SUMMARY | 2025-01-15 19:43 | External Medical Summary | Summary of Care ---
Author Name Unknown Organization [facility] Address [address] [facility] [place] [address] Phone [phone] Care Team Providers Care Brazer Production Line Name Role Phone Ludy Jacobs Zeina LY Primary Care Provider Reason for Visit * Reason Onset Date Comments Medication Refill 01/05/2025 Encounter Details Date Type Department Care Team (Late st Contact Info) Description 01/05/2025 Refill Cardiology, [facility] [address] [place] [address] Virgil Hunter PA-C [address] [place] [phone] Chronic combined systolic and diastolic congestive heart failure (HCC) Allergies Active Allergy Reactions Criticality Noted Date [...] as of this encounter (statuses as of 01/06/2025) Medications VALVED HOLDING CHAMBER DEVIIndications:C OPD with emphysema ([facility]) [...] Each 07/24/20 22 Active Full Kit Nebulizer SetIndications:CO PD, group [...] 24 Active Folic Acid 1 MG Oral TabletIndications :Folic acid deficiency Take 1 Tablet by mouth in the morning. In the morning.. 100 Tablet 3 04/28/20 24 Active Synthroid 75 MCG Oral TabletIndications :Acquired hypothyroidism TAKE 1 TABLET BY MOUTH DAILY (AT LEAST 30 MINUTES PRIOR TO BREAKFAST OR OTHER MEDS). 90 Tablet 3 05/03/20 24 Active Spironolactone 25 MG Oral Tablet (Aldactone)Indica [...] 24 Active Pregabalin 75 MG Oral Capsule (Lyrica)Indicatio ns:Complex regional pain syndrome type 1 of left upper extremity Take 1 Capsule by mouth in the morning and 1 Capsule at noon and 1 Capsule before bedtime. 90 Capsule 5 06/20/20 24 Active Ipratropium-Albut bryant 0.5-2.5 (3) MG/3ML Inhalation Solution (Duoneb) USE 1 AMPULE IN NEBULIZER 4 TIMES DAILY NEEDED FOR COUGH, SHORTNESS OF BREATH OR WHEEZING -USE IN PLACE OF RESCUE INHALER 360 mL 5 10/06/20 24 Active Metoprolol Succinate ER 50 MG Oral Tablet Extended Release 24 Hour (toPROL XL)Indications:Ol d [place] (myocardial infarction) TAKE 1 AND 1/2 TABLETS BY MOUTH EVERY MORNING 135 Tablet 11/21/20 24 Active Methocarbamol 500 MG Oral Tablet (Robamol)Indicati [...] 25 Active predniSONE 5 MG Oral Tablet (Deltasone)Indica [...] 025 Active Entresto 24-26 MG Oral Tablet (sacubitril-valsa rtan 24-26 mg per tab)Indications:C hronic combined systolic and diastolic congestive heart failure (HCC),HFrEF (heart failure with reduced ejection fraction) (HCC) TAKE 1 TABLET BY MOUTH EVERY MORNING AND 1 TABLET BEFORE BEDTIME 180 Tablet 3 01/03/20 25 Active Empagliflozin 10 MG Oral Tablet (Jardiance)Indica [...] before bedtime. 270 Tablet 3 07/29/20 23 025 Discontin ued(Refil l) Empagliflozin 10 MG Oral Tablet (Jardiance)Indica tions:Chronic combined systolic and diastolic congestive heart failure (HCC) Take 1 Tablet by mouth in the morning. 90 Tablet 3 12/15/19 24 025 Discontin ued(Refil l) Hospital, Clinic, or Other Facility Administered Medication Ordered Dose Route Frequency Start Date End Date Status Albuterol Sulfate (Proventil) (2.5 MG/3ML) 0.083% inhalation solution 2.5 mgIndications:COPD, group D, 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 (HCC) 2.5 mg NEBULIZER ONCE PRN 04/28/2024 04/28/2025 Acti ve documented as of this encounter (statuses as of 01/06/2025) Active Problems Problem Noted Date Diagnosed Date [...] noted above Atherosclerotic heart diseas e of [place] coronary artery with other forms of angina [...] with [facility] pain clinic [place] 07/02. Statin intolerance 01/24/2022 Osteopenia 01/08/2022 LYNDON [...] use aero chamber. Test performed by Flex COUNTRY PRINTER APPRENTICE CPFT Circadian rhythm sleep disorder 09/17/2018 [...] to repeat. Coronary artery disease invo lving [place] coronary artery of [place] heart without angina pectoris 11/12/2015 Assessment & [...] as of this encounter (statuses as of 01/06/2025) Resolved Problems Problem Noted Date Diagnosed Date [...] use aero chamber. Test performed by Flex COUNTRY PRINTER APPRENTICE CPFT Assessment & Plan (05/30/2022 4:27 PM [...] use aero chamber. Test performed by Flex COUNTRY PRINTER APPRENTICE CPFT COPD, group B, by GOLD 2017 [...] as of this encounter (statuses as of 01/06/2025) Immunizations Name Administration Dates Next Due COVID-19 mRNA, LNP-s, No Pre serve, 2-Dose Series (Kredits) 09/26/2022,11/18/2021,04/04/2021,02/28 COVID-19, MRNA-LNP, PF, 30 M CG/0.3 mL, 12 YRS AND ABOVE, IM (Quigo-Comirnaty) 10/21/2023 Covid-19, Mrna, Lnp-s, Pf, B ivalent, [...] No 12/27/2024 Does the household have a [facility] source [facility] income? (Household - for [...] encounter Miscellaneous Notes * Telephone Encounter - Virgil Hunter PA-C - 01/06/2025 2:00 PM EST Signed Prescriptions: Disp Refills Empagliflozin 10 MG Oral Tablet (Jardiance)90 Tab*3 Sig: Take 1 Tablet by mouth in the morning. Authorizing Provider: VIRGIL HUNTER * Telephone Encounter - Omi Steel, [facility] - 01/06/2025 10:12 AM EST Pending Prescriptions: Disp Refills Empagliflozin 10 MG Oral Tablet (Jardiance)90 Tab*3 Sig: Take 1 Tablet by mouth in the morning. * Telephone Encounter - Omi Steel, [facility] - 01/06/2025 10:12 AM EST Unable to authorize medication refills for pended medication(s) at this time. Part of the protocol criteria used for refill authorization was not satisfied. Patient last seen by Estrellita Bassett and is scheduled to see you on 07/17/25. You last saw the patient 05/11/2023. Please approve if appropriate. Omi Steel [facility], Pharm D Clinical Pharmacist [facility] ([facility]) 01/06/2025, 10:12 AM [phone] * Telephone Encounter - Herve Lancaster, [facility] - 01/06/2025 10:00 AM EST Pending Prescriptions: Disp Refills Empagliflozin 10 MG Oral Tablet (Jardiance)90 Tab*3 Sig: Take 1 Tablet by mouth in the morning. documented in this encounter Plan of Treatment Upcoming Encounters Date Type Department Care Team (Late st Contact Info) Description 01/19/2025 4:00 PM EST Office Visit Family Practice [facility] [address] [facility] [place] [address] Ludy Jacobs CRNP [address] [place] [address] 02/09/2025 1:00 PM EDT [facility], [facility] [address] [place] [address] Jerel Sam PA-C [address] [facility] [place] [address] 02/13/2025 3:30 PM EDT Telemedicine Care at Home [address] [place] [address] Lulu Yee PA-C [address] [place] [address] 02/14/2025 3:00 PM EDT Laboratory Laboratory, [facility] [address] [facility] [place] [phone] [facility] [address] 02/17/2025 5:30 PM EDT Pharmacy [facility], [address] [address] [facility], Pharmacist Cardiology [facility] [address] [place] [address] 02/28/2025 3:30 PM EDT Telemedicine [facility], [address] [place] [address] [facility], Pharmacist Cardiology [facility] [address] [place] [address] 03/10/2025 9:40 AM EDT Home Visit [facility] [address] [place] [address] Nevin Choudhary, [facility] Window Glass Cutter [employer] [address] [place] [address] 04/14/2025 3:00 PM EDT Home Visit ising at [facility] [address] [facility] [place] [address] Chiquis Vazquez, RN 132 [facility] [place] [address] 05/15/2025 4:30 PM EDT Imaging Radiology [facility] [address] [facility] [place] [phone] 07/03/2025 3:00 PM EDT Office Visit Pulmonary Medicine, [facility] 132 [facility] [place] [address] Sony Duong MD [address] [place] [address] 07/17/2025 3:30 PM EDT Office Visit Cardiology, [facility] [address] [facility] [place] [address] Virgil Hunter PA-C [address] [facility] [place] [address] Scheduled Procedures Name Priority Associated Diagnoses Date/Ti [...] 2) 03/06/2021 01/09/2021 CKD PHOS USE SMARTSET 96300 03/29/2022 03/29/2021, 0 03/28/2021 Albumin/Creatinine Ratio 09/29/2023 09/29/2022, 05/0 03/2021 Mammogram 03/02/2024 03/02/2023, 02/21, 11/04/2016, Additional history exists COVID-19 Vaccine ( season) 2024 10/21/2023, 09/26/2022, 09/26/2022, Additional history exists Cervical Cancer Screening 12/04/2024 Pap Smear 12/04/2024 12/04/2021, 02/21, 03/03/2016, Additional history exists GFR 01/30/2025 08/02/2024, 06/0 04/2024, 04/05/2024, Additional history exists CKD HGB USE SMARTSET 18687 08/02/202508/02, 08/02/2024, 04/28/2024, Additional history exists TSH [...] 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 (HCC) Hypotension, unspecified hypotension type Old OH (myocardial infarction) Old myocardial infarction Lung nodules Other nonspecific abnormal finding of lung field Other chronic pain Advanced care planning/counseling discussion- Primary Other specified counseling Generalized anxiety disorder Major depressive disorder, recurrent episode, moderate (HCC) Major depressive disorder, recurrent episode, moderate Cerebellar hemangioma (HCC) Hemangioma of intracranial structures Atherosclerotic heart disease of [place] coronary artery with other forms of angina pectoris (HCC) Coronary artery disease involving [place] coronary artery of [place] heart without angina pectoris Acquired hypothyroidism Unspecified [...] alone Sicca syndrome (HCC) 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
--- OUTSIDE RECORDS SUMMARY | 2025-01-15 19:43 | External Medical Summary | Summary of Care ---
Author Name Unknown Organization [facility] Address [address] [facility] [place] [address] Phone [phone] Care Team Providers Care Lawn Caretaker Name Role Phone Ludy Jacobs Primary Care Provider Reason for Visit * Reason Onset Date Comments [facility]: Acute 01/11/2025 Encounter Details Date Type Department Care Team (Late st Contact Info) Description 01/11/2025 Telephone [facility], [facility] [address] [facility] [place] [address] [facility], Nurse [facility] [address] [facility] [place] [address] [facility]: Acute Allergies Active Allergy [...] CHAMBER DEVIIndications:CO PD with emphysema ([facility]) to be used with inhalers as [...] C, 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 ([facility]),Chronic hypoxemic respiratory failure ([facility]) Use with nebulized medications 1 Each 07/24/20 22 Active Full Kit Nebulizer SetIndications:ACTING TEACHER D, group C, 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 ([facility]),Chronic hypoxemic respiratory failure ([facility]) Use with nebulizer 1 Each 07/24/20 22 Active Syringe 25G X 1-1/2" 3 ML Use for intramuscular B12 injection 1 Each 10/02/20 22 Active Albuterol Sulfate (2.5 MG/3ML) 0.083% Inhalation Nebulization Solution (Proventil)Indicat ions:COPD, group D, 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 ([facility]) Inhale 1 Vial via nebulizer 4 [...] C, 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 ([facility]) Inhale 2 Puffs by mouth every [...] D, 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 ([facility]) 2.5 mg NEBULIZER ONCE PRN 04/28/2024 [...] noted above Atherosclerotic heart diseas e of [place] coronary artery with other forms of angina [...] (05/30/2022 4:32 PM EDT): Appointment scheduled with [facility] pain clinic [place] 07/02. Statin intolerance 01/24/2022 Osteopenia 01/08/2022 LYNDON [...] aero chamber. Test performed by Flex MANAGER LOAN CPFT Circadian rhythm sleep disorder 09/17/2018 Nocturnal hypoxemia due to emphysema 07/30/2018 Adjustment disorder with mixed anxiety and depre ssed mood 07/04/2018 TERMINATED MEDICATION USAGE AGREEMENT 06/03/2018 Dupuytren's contracture of left hand 02/01/2018 Mixed incontinence urge and stress (male)(female ) 03/20/2017 Vitamin D deficiency 03/03/2016 Overview (03/03/2016): March 2015 = 13. Took high dose replacement. Due to repeat. Coronary artery disease invo lving [place] coronary artery of [place] heart without angina pectoris 11/12/2015 Assessment & [...] aero chamber. Test performed by Flex MANAGER LOAN CPFT Assessment & Plan (05/30/2022 4:27 PM [...] aero chamber. Test performed by Flex MANAGER LOAN CPFT COPD, group B, by GOLD 2017 [...] mRNA, LNP-s, No Pre serve, 2-Dose Series (Hashgo) 09/26/2022,11/18/2021,04/04/2021,02/28 COVID-19, MRNA-LNP, PF, 30 M CG/0.3 mL, 12 YRS AND ABOVE, IM ([facility]) 10/21/2023 Covid-19, Mrna, Lnp-s, Pf, B ivalent, 30 Mcg, IM, 12 yrs and above (Hashgo) 09/26/2022 HEPATITIS B VACCINE, RECOMB, 20 MCG/ML, [...] No 12/27/2024 Does the household have a [facility] source of income? (Household - for [...] of Assessment Author Yes 03/28/2021 5:37 AM EDValentino Young RN documented as of this encounter Mental Status * Because of a physical, mental, or emotional condition, do you have serious difficulty concentrating, remembering, or making decisions? (5 years old or older) Answer Entry Date Author No 03/28/2021 5:37 AM Valentino Mcduffie RN documented in this encounter Miscellaneous Notes * Telephone Encounter - Bria Adam RN - 01/12/2025 8:15 AM EST TT from Chiquis Vazquez RNCM, she will have HV this morning at 10:00 to assess patient. Called and spoke with patient, she stated she did get OOB last evening and had something to eat butstill feels "funny" , aware of HV this morning and appreciative. Bria Adam RN [facility] Registered Nurse Navigator Triage * Telephone Encounter - Bria Adam RN - 01/11/2025 5:37 PM EST [facility] retail loss prevention officer Acute Call Date: 01/11/2025 Time: 5:38 PM Name: Marisa Brown : 1965 Caller: Lopez Relationship to : HPI: Marisa Brown is a 59 year old female whose / Lopez is calling [facility] report his does not [...] and nothing was wrong. asking if a [facility] nurse can have a HV tomorrow. [...] for same day: no, TT to Chiquis SAMPSON for HV in am Await [facility] [place] Bria Adam RN [facility] Registered Nurse Navigator Triage Communication Note Name: [...] equal Background: Hx angioplasty, cerebellar hemangioma, old CA, emphysema, CHF, LYNDON,PTSD, COPD, CKD Assessment: not eating, not getting OOB, ? confusion Recommendation: ED evaluation tonight, requested [facility] HV in AM Care team availability: TT sent to Chiquis SAMPSON to have HV in am Bria Adam RN [facility] Registered Nurse Navigator Triage documented in this encounter Plan of Treatment Upcoming Encounters Date Type Department Care Team (Late st Contact Info) Description 01/12/2025 10:00 AM EST [facility] [address] [place] [address] Chiquis Vazquez RN [address] [place] [address] [place] [address] 01/13/2025 10:30 AM EST Scheduled Telephone [facility] [place], [facility] [address] [place] [address] [facility], Nurse [address] [place] [address] 01/19/2025 4:00 PM EST Office Visit Family Practice [facility] 132 [facility] [place] [address] Ludy Jacobs CRNP 132 [facility] [place] [address] 02/09/2025 1:00 PM EDT [facility] Visit [facility], [facility] 132 [facility] [place] [address] Jerel Sam PA-C 132 [facility] [place] [address] 02/13/2025 3:30 PM EDT Telemedicine Care at Home [address] [place] [address] Lulu Yee PA-C [address] [place] [address] 02/14/2025 3:00 PM EDT Laboratory Laboratory, [facility] 132 [facility] [place] [phone] [facility] [address] [place] [address] 02/17/2025 5:30 PM EDT Pharmacy [facility] [address] [place] [address] [facility], Pharmacist [facility]iology [facility] [address] [place] [address] 02/28/2025 3:30 PM EDT Telemedicine [facility], [place] [address] [place] [address] [facility], Pharmacist Cardiology [facility] [address] [place] [address] 03/10/2025 9:40 AM EDT Home Visit [facility] Coordination [facility] Integration [address] [place] [address] Nevin Choudhary, [facility] Machine Cementer And Folder [address] [place] [facility] [place] [address] 04/14/2025 3:00 PM EDT [facility], [facility] [place] [address] Chiquis Vazquez, RN [address] [place] [address] 05/15/2025 4:30 PM EDT Imaging [facility] 132 [facility] [place] [phone] 07/03/2025 3:00 PM EDT Office Visit Pulmonary Medicine, [facility] 132 [facility] [place] [address] Sony [facility]ong [facility] [address] [facility] [address] 07/17/2025 3:30 PM EDT Office Visit Cardiology, [facility] [address] [facility] [place] [address] Angeline Madsen, CAROL 132 [facility] [place] [address] Scheduled Procedures Name Priority Associated Diagnoses Date/Ti [...] 2) 03/06/2021 01/09/2021 CKD PHOS USE SMARTSET 17953 03/29/2022 03/29/2021, 0 03/28/2021 Albumin/Creatinine Ratio 09/29/2023 09/29/2022, 05/0 03/2021 Mammogram 03/02/2024 03/02/2023, 02/21, 11/04/2016, Additional history exists COVID-19 Vaccine ( season) 2024 10/21/2023, 09/26/2022, 09/26/2022, Additional history exists Cervical Cancer Screening 12/04/2024 Pap Smear 12/04/2024 12/04/2021, 02/21, 03/03/2016, Additional history exists GFR 01/30/2025 08/02/2024, 06/0 04/2024, 04/05/2024, Additional history exists CKD HGB USE SMARTSET 06866 08/02/202508/02, 08/02/2024, 04/28/2024, Additional history exists TSH [...] Agents on File Name Relationship Healthcare Agent [facility] Communication Lopez Brown Spouse First Alternate Health Care Agent [place] [facility] Child Health Care Agent Care Teams Lawn Caretaker Relationship Specialty Start Date End Date Ludy Jacobs CRNP [address] [place] [address] PCP - General Nurse Practitioner 04/20/24 documented as of this encounter
--- OUTSIDE RECORDS SUMMARY | 2025-01-15 19:43 | External Medical Summary | Summary of Care ---
Author Name Unknown Organization [facility] Address [address] [place] [address] Phone [phone] Care Team Providers Care Shipping Team Leader Name Role Phone Ludy Jacobs Primary Care Provider Reason for Visit * Reason Onset Date Comments Appointment 01/12/2025 Encounter Details Date Type Department Care Team (Late st Contact Info) Description 01/12/2025 Telephone [facility], [place] [address] [place] [address] Carey Palmer, ALDO [address] [place] [address] Appointment (///) Allergies Active Allergy Reactions Criticality Noted Date [...] VALVED HOLDING CHAMBER DEVIIndications:C OPD with emphysema ([facility]) to be used with inhalers as [...] :COPD, group C, 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 ([facility]),Chronic hypoxemic respiratory failure ([facility]) Use with nebulized medications 1 Each 022 Active Full Kit Nebulizer SetIndications:CO PD, group C, 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 ([facility]),Chronic hypoxemic respiratory failure ([facility]) Use with nebulizer 1 Each 022 Active Syringe 25G X 1-1/2" 3 ML Use for intramuscular B12 injection 1 Each 11 022 Active Albuterol Sulfate (2.5 MG/3ML) 0.083% Inhalation Nebulization Solution (Proventil)Indica tions:COPD, group D, 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 ([facility]) Inhale 1 Vial via nebulizer 4 [...] Extended Release 24 Hour (toPROL XL)Indications:Ol d RI (myocardial infarction) TAKE 1 AND 1/2 [...] ns:COPD, group C, 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 ([facility]) Inhale 2 Puffs by mouth every [...] the morning. As directed. 30 Tablet 1 025 Active LORazepam 0.5 MG Oral Tablet (Ativan) Take 1 Tablet by mouth daily as needed for Anxiety. You will need to be seen in order to get subsequent refills. 30 Tablet 025 Active Entresto 24-26 MG Oral Tablet [...] mouth in the morning. 90 Tablet 3 025 Active Midodrine HCl 5 MG Oral Tablet (Proamatine)Indic ations:Chronic diastolic congestive heart failure (HCC) Take 1 Tablet by mouth in the morning and 1 Tablet at noon and 1 Tablet before bedtime. 270 Tablet 3 025 Active Trelegy Ellipta 100-62.5-25 MCG/ACT Aerosol Powder Breath Activated (Fluticasone-Umec lidinium-Vilanter ol) Inhale 1 Puff by mouth in the morning. 240 Blister Dosing Unit 025 2024 Discontinued Hospital, Clinic, or Other Facility Administered Medication Ordered Dose Route Frequency Start Date End Date Status Albuterol Sulfate (Proventil) (2.5 MG/3ML) 0.083% inhalation solution 2.5 mgIndications:COPD, group D, 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 ([facility]) 2.5 mg NEBULIZER ONCE PRN 04/28/2024 [...] noted above Atherosclerotic heart diseas e of chilkat coronary artery with other forms of angina [...] (05/30/2022 4:32 PM EDT): Appointment scheduled with [facility] pain clinic [place] 07/02. Statin intolerance 01/24/2022 Osteopenia 01/08/2022 [...] use aero chamber. Test performed by [employer]OYEE SERVICE OFFIC[employer] CPFT Circadian rhythm sleep disorder 09/17/2018 Nocturnal hypoxemia due to emphysema 07/30/2018 Adjustment disorder with mixed anxiety and depre ssed mood 07/04/2018 TERMINATED MEDICATION USAGE AGREEMENT 06/03/2018 Dupuytren's contracture of left hand 02/01/2018 Mixed incontinence urge and stress (male)(female ) 03/20/2017 Vitamin D deficiency 03/03/2016 Overview (03/03/2016): March 2015 = 13. Took high dose replacement. Due to repeat. Coronary artery disease invo lving chilkat coronary artery of chilkat heart without angina pectoris 11/12/2015 Assessment & Plan (01/22/2023 12:36 PM EST): Stable no angina -continue ASA, metoprolol xl, repatha. Can't tolerate delgado d/t low bp Dyslipidemia, goal LDL below 70 11/12/2015 Sicca syndrome 12/29/2014 Acquired hypothyroidism 12/29/2014 Assessment & Plan (01/22/2023 12:45 PM EST): Continue synthroid Old RI (myocardial infarction) 11/01/2013 Assessment & Plan (05/30/2022 [...] use aero chamber. Test performed by [employer] CPFT Assessment & Plan (05/30/2022 4:27 PM [...] moderate 04/07/2012 10/05/2012 Overview (04/07/2012): PFT 03/2008 [facility] COPD, SEVERE 04/07/2012 05/04/2019 Overview: PER COPD PROTOCOL #24. PFT 03/2008 [facility] LAST PFT -06/07/12 Gastroesophageal reflux dise ase with esophagitis 04/30/2009 01/14/2022 Overview (05/15/2009): mild [employer]VANCE DIRECTIVE INFORMATION 12/02/2008 09/26/2024 Overview (12/02/2008): No, Advance Directive brochure offered , patient declined. COPD with emphysema 10/05/20 12 documented as of this encounter (statuses as of 01/12/2025) Immunizations Name Administration Dates Next Due COVID-19 mRNA, LNP-s, No Pre serve, 2-Dose Series ([employer]) 09/26/2022,11/18/2021,04/04/2021,02/28 COVID-19, MRNA-LNP, PF, 30 M CG/0.3 mL, 12 YRS AND ABOVE, IM ([employer]Comirnat) 10/21/2023 Covid-19, Mrna, Lnp-s, Pf, B ivalent, 30 Mcg, IM, 12 yrs and above ([employer]) 09/26/2022 HEPATITIS B VACCINE, RECOMB, 20 MCG/ML, [...] encounter Miscellaneous Notes * Telephone Encounter - Carey Palmer OSA - 01/12/2025 11:26 AM EST TT request form RN to schedule f/u calls fri and sat for copd exacerbation, cxr f/u Received TT a little later form Ryan Sam to send stat CXR to [facility]. Claim # [id number] was faxedat [phone] this morning documented in this encounter Plan of Treatment Upcoming Encounters Date Type Department Care Team (Late st Contact Info) Description 01/13/2025 10:30 AM EST Scheduled Telephone [facility] at [place], [address] [place] [address] [facility] Nurse [facility] [address] [place] [address] 01/14/2025 9:00 AM EST Scheduled Telephone [facility], [facility] [address] [place] [address] [place], Nurse [facility] [address] [place] [address] 01/19/2025 4:00 PM EST Office Visit Family Practice [facility] [address] [place] [address] Ludy Jacobs CRNP [address] [place] [address] 02/09/2025 1:00 PM EDT Home Visit [facility], [facility] [address] [place] [address] Jerel Sam PA-C [address] [place] [address] 02/13/2025 3:30 PM EDT Telemedicine Care at Home [address] [place] [address] Lulu Yee PA-C [address] [place] [address] 02/14/2025 3:00 PM EDT Laboratory Laboratory, [facility] 132 [facility] [place] [phone] [facility] [place] [address] 02/17/2025 5:30 PM EDT Pharmacy Cardiology [facility], [place] [address] [place] [address] [place], Pharmacist Cardiology [facility] [address] [place] [address] 02/28/2025 3:30 PM EDT Telemedicine Cardiology [facility], [place] [address] [place] [address] [facility], Pharmacist Cardiology [facility] [address] [place] [address] 03/10/2025 9:40 AM EDT Home Visit Care Coordination and Integration [address] [place] [address] Nevin Choudhary, Community Health Nurse Care Manager [address] [place] [address] 04/14/2025 3:00 PM EDT Home Visit [facility] [address] [facility] [place] [address] Chiquis Vazquez, RN 132 [facility] [place] [address] 05/15/2025 4:30 PM EDT Imaging Radiology [address] 132 [facility] [place] [phone] 07/03/2025 3:00 PM EDT Office Visit Pulmonary Medicine, [facility] [address] [facility] [place] [address] Sony Duong MD [address] [place] [address] 07/17/2025 3:30 PM EDT Office Visit Cardiology, [facility] [address] [facility] [place] [address] Angeline Madsen, PAMilanC 132 [facility] [place] [address] Scheduled Procedures Name Priority Associated Diagnoses Date/Ti [...] 2) 03/06/2021 01/09/2021 CKD PHOS USE SMARTSET 83551 03/29/2022 03/29/2021, 0 03/28/2021 Albumin/Creatinine Ratio 09/29/2023 09/29/2022, 050 03/2021 Mammogram 03/02/2024 03/02/2023, 02/21, 11/04/2016, Additional history exists COVID-19 Vaccine ( season) 2024 10/21/2023, 09/26/2022, 09/26/2022, Additional history exists Cervical Cancer Screening 12/04/2024 Pap Smear 12/04/2024 12/04/2021, 02/21, 03/03/2016, Additional history exists GFR 01/30/2025 08/02/2024, 06/0 04/2024, 04/05/2024, Additional history exists CKD HGB USE SMARTSET 97291 08/02/202508/02, 08/02/2024, 04/28/2024, Additional history exists TSH [...] on File Name Relationship Healthcare Agent [facility] p Communication Lopez Brown Spouse First Alternate Health Care Agent [place] Adult Child Health Care Agent Care Teams Shipping Team Leader Relationship Specialty Start Date End Date Ludy Jacobs CRNP [address] [place] [address] PCP - General Nurse Practitioner 04/20/24 documented as of this encounter
--- OUTSIDE RECORDS SUMMARY | 2025-01-15 19:43 | External Medical Summary | Summary of Care ---
Author Name Unknown Organization [facility] Address [address] [place] [address] Phone [phone] Care Team Providers Care Wooden Frame Builder Name Role Phone Ludy Jacobs Primary Care Provider Reason for Visit * Reason Onset Date Comments Appointment 01/12/2025 Encounter Details Date Type Department Care Team (Late st Contact Info) Description 01/12/2025 Telephone [facility] [place] [address] [place] [address] Carey Palmer, ALDO [address] [place] [address] Appointment (///) Allergies Active Allergy [...] VALVED HOLDING CHAMBER DEVIIndications:C OPD with emphysema ([facility] - [...] noted above Atherosclerotic heart diseas e of [place] coronary artery with other forms of angina [...] Appointment scheduled with [facility] pain clinic [place] 07/02. Statin intolerance 01/24/2022 Osteopenia 01/08/2022 [place] [...] use aero chamber. Test performed by [employer] ELECTRICAL WIRER CPFT Circadian rhythm sleep disorder 09/17/2018 Nocturnal hypoxemia due to emphysema 07/30/2018 Adjustment disorder with mixed anxiety and depre ssed mood 07/04/2018 TERMINATED MEDICATION USAGE AGREEMENT 06/03/2018 Dupuytren's contracture of left hand 02/01/2018 Mixed incontinence urge and stress (male)(female ) 03/20/2017 Vitamin D deficiency 03/03/2016 Overview (03/03/2016): March 2015 = 13. Took high dose replacement. Due to repeat. Coronary artery disease invo lving [place] coronary artery of [place] heart without angina pectoris 11/12/2015 Assessment & [...] use aero chamber. Test performed by [employer] ELECTRICAL WIRER CPFT Assessment & Plan (05/30/2022 4:27 PM [...] moderate 04/07/2012 10/05/2012 Overview (04/07/2012): PFT 03/2008 [facility] COPD, SEVERE 04/07/2012 05/04/2019 Overview: PER COPD PROTOCOL #24. PFT 03/2008 [facility] LAST PFT -06/07/12 Gastroesophageal reflux dise ase with esophagitis 04/30/2009 01/14/2022 Overview (05/15/2009): mild ADVANCE DIRECTIVE INFORMATION 12/02/2008 09/26/2024 Overview (12/02/2008): No, Advance Directive brochure offered , patient declined. COPD with emphysema 10/05/20 12 documented as of this encounter (statuses as of 01/12/2025) Immunizations Name Administration Dates Next Due COVID-19 mRNA, LNP-s, No Pre serve, 2-Dose Series ([employer] 09/26/2022,11/18/2021,04/04/2021,02/28 COVID-19, MRNA-LNP, PF, 30 M CG/0.3 mL, 12 YRS AND ABOVE, IM ([employer]-Comirnat) 10/21/2023 Covid-19, Mrna, Lnp-s, Pf, B ivalent, 30 Mcg, IM, 12 yrs and above ([employer] 09/26/2022 HEPATITIS B VACCINE, RECOMB, 20 MCG/ML, [...] Ryan Sam to send stat CXR to [facility]. Claim # [id number] was faxedat [phone] this morning documented in this encounter Plan of Treatment Upcoming Encounters Date Type Department Care Team (Late st Contact Info) Description 01/13/2025 10:30 AM EST Scheduled Telephone [facility] at [place], [address] [place] [address] [facility] Nurse [facility] [address] [place] [address] 01/14/2025 9:00 AM EST Scheduled Telephone [facility], [facility] [address] [place] [address] [place], Nurse [facility] [address] [place] [address] 01/19/2025 4:00 PM EST Office Visit Family Practice [facility] [address] [place] [address] Ludy Jacobs CRNP [address] [place] [address] 02/09/2025 1:00 PM EDT Home Visit [facility], [facility] [address] [place] [address] Jerel Sam PA-C [address] [place] [address] 02/13/2025 3:30 PM EDT Telemedicine Care at Home [address] [place] [address] Lulu Yee PA-C [address] [place] [address] 02/14/2025 3:00 PM EDT Laboratory Laboratory, [facility] 132 [facility] [place] [phone] [facility] [place] [address] 02/17/2025 5:30 PM EDT Pharmacy Cardiology [facility], [place] [address] [place] [address] [place], Pharmacist Cardiology [facility] [address] [place] [address] 02/28/2025 3:30 PM EDT Telemedicine Cardiology [facility], [place] [address] [place] [address] [facility], Pharmacist Cardiology [facility] [address] [place] [address] 03/10/2025 9:40 AM EDT Home Visit Care Coordination and Integration [address] [place] [address] Nevin Choudhary, Community Health Router Operator Pin [address] [place] [address] 04/14/2025 3:00 PM EDT Home Visit [facility] at [facility] 132 [facility] [place] [address] Chiquis Vazquez, RN 132 [facility] [place] [address] 05/15/2025 4:30 PM EDT Imaging Radiology [address] 132 [facility] [place] [phone] 07/03/2025 3:00 PM EDT Office Visit Pulmonary Medicine, [facility] 132 [facility] [place] [address] Sony Duong MD [address] [place] [address] 07/17/2025 3:30 PM EDT Office Visit Cardiology, [facility] 132 [facility] [place] [address] Angeline Madsen, PAMilanC 132 [facility] [place] [address] Scheduled Procedures Name Priority Associated Diagnoses Date/Ti [...] 2) 03/06/2021 01/09/2021 CKD PHOS USE SMARTSET 67177 03/29/2022 03/29/2021, 0 03/28/2021 Albumin/Creatinine Ratio 09/29/2023 09/29/2022, 050 03/2021 Mammogram 03/02/2024 03/02/2023, 02/21, 11/04/2016, Additional history exists COVID-19 Vaccine ( season) 2024 10/21/2023, 09/26/2022, 09/26/2022, Additional history exists Cervical Cancer Screening 12/04/2024 Pap Smear 12/04/2024 12/04/2021, 02/21, 03/03/2016, Additional history exists GFR 01/30/2025 08/02/2024, 06/0 04/2024, 04/05/2024, Additional history exists CKD HGB USE SMARTSET 60129 08/02/202508/02, 08/02/2024, 04/28/2024, Additional history exists TSH [...] File Name Relationship Healthcare Agent [facility] p Communication Lopez Brown Spouse First Alternate Health Care Agent [place] Adult Child Health Care Agent Care Teams Wooden Frame Builder Relationship Specialty Start Date End Date Ludy Jacobs CRNP [address] [place] [address] PCP - General Nurse Practitioner 04/20/24 documented as of this encounter
--- OUTSIDE RECORDS SUMMARY | 2025-01-15 19:43 | External Medical Summary | Summary of Care ---
Author Name Unknown Organization [facility] Address [address] [facility] [place] [address] Phone [phone] Care Team Providers Care Food Production Manager Name Role Phone Ludy Jacobs Primary Care Provider Reason for Visit * Reason Onset Date Comments [facility]: Acute 01/11/2025 Encounter Details Date Type Department Care Team (Late st Contact Info) Description 01/11/2025 Telephone [facility], [facility] [address] [facility] [place] [address] [facility], Nurse [facility] [address] [facility] [place] [address] [facility]: Acute Allergies Active Allergy [...] HOLDING CHAMBER DEVIIndications:CO PD with emphysema ([facility]) to be used with inhalers [...] group C, 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 ([facility]),Chronic hypoxemic respiratory failure ([facility]) Use with nebulized medications 1 Each 07/24/20 22 Active Full Kit Nebulizer SetIndications:UTILIZATION REVIEWER D, group C, 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 ([facility]),Chronic hypoxemic respiratory failure ([facility]) Use with nebulizer 1 Each 07/24/20 22 Active Syringe 25G X 1-1/2" 3 ML Use for intramuscular B12 injection 1 Each 10/02/20 22 Active Albuterol Sulfate (2.5 MG/3ML) 0.083% Inhalation Nebulization Solution (Proventil)Indicat ions:COPD, group D, 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 ([facility]) Inhale 1 Vial via [...] Tablet Extended Release 24 Hour (toPROL XL)Indications:Old IL (myocardial infarction) TAKE 1 AND 1/2 TABLETS [...] group C, 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 ([facility]) Inhale 2 Puffs by [...] group D, 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 ([facility]) 2.5 mg NEBULIZER ONCE PRN [...] noted above Atherosclerotic heart diseas e of [place] coronary artery with other forms of angina [...] (05/30/2022 4:32 PM EDT): Appointment scheduled with [facility] pain clinic [place] 07/02. Statin intolerance 01/24/2022 Osteopenia 01/08/2022 LYNDON [...] use aero chamber. 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 Took high dose replacement. Due to repeat. Coronary artery disease invo lving [place] coronary artery of [place] heart without angina pectoris 11/12/2015 Assessment & Plan (01/22/2023 12:36 PM EST): Stable no angina -continue ASA, metoprolol xl, repatha. Can't tolerate delgado d/t low bp Dyslipidemia, goal LDL below 70 11/12/2015 Sicca syndrome 12/29/2014 Acquired hypothyroidism 12/29/2014 Assessment & Plan (01/22/2023 12:45 PM EST): Continue synthroid Old IL (myocardial infarction) 11/01/2013 Assessment & Plan (05/30/2022 [...] use aero chamber. Test performed by Flex WEB PRESS OPERATOR ASSISTANT CPFT Assessment & Plan (05/30/2022 4:27 PM [...] use aero chamber. Test performed by Flex WEB PRESS OPERATOR ASSISTANT CPFT COPD, group B, by GOLD 2017 [...] 04/07/2012 10/05/2012 Overview (04/07/2012): PFT 03/2008 [facility] COPD, SEVERE 04/07/2012 05/04/2019 Overview: PER COPD PROTOCOL #24. PFT 03/2008 [facility] LAST PFT -06/07/12 Gastroesophageal reflux dise ase with esophagitis 04/30/2009 01/14/2022 Overview (05/15/2009): mild ADVANCE DIRECTIVE INFORMATION 12/02/2008 09/26/2024 Overview (12/02/2008): No, Advance Directive brochure offered , patient declined. COPD with emphysema 10/05/20 12 documented as of this encounter (statuses as of 01/12/2025) Immunizations Name Administration Dates Next Due COVID-19 mRNA, LNP-s, No Pre serve, 2-Dose Series ([employer]) 09/26/2022,11/18/2021,04/04/2021,02/28 COVID-19, MRNA-LNP, PF, 30 M CG/0.3 mL, 12 YRS AND ABOVE, IM ([employer]) 10/21/2023 Covid-19, Mrna, Lnp-s, Pf, B ivalent, 30 Mcg, IM, 12 yrs and above ([employer]) 09/26/2022 HEPATITIS B VACCINE, RECOMB, 20 MCG/ML, [...] No 12/27/2024 Does the household have a [facility] source of income? (Household - for ages [...] Adam RN - 01/11/2025 5:37 PM EST [facility] encephalographer Acute Call Date: 01/11/2025 Time: 5:38 PM Name: Marisa Brown : 1965 Caller: Lopez Relationship to : HPI: Marisa Brown is a 59 year old female whose / Lopez is calling [facility] report his does not [...] and nothing was wrong. asking if a [facility] nurse can have a HV tomorrow. [...] Chiquis SAMPSON for HV in am Await [facility] recommendations Bria Adam RN [facility] Registered Nurse Navigator Triage Communication Note [...] equal Background: Hx angioplasty, cerebellar hemangioma, old IL, emphysema, CHF, LYNDON,PTSD, COPD, CKD Assessment: not eating, not getting OOB, ? confusion Recommendation: ED evaluation tonpartha, requested [facility] HV in AM Care team availability: TT sent to Chiquis Vazquez RNCM to have HV in am Bria Adam RN [place] Registered Nurse Navigator Triage documented in this encounter Plan of Treatment Upcoming Encounters Date Type Department Care Team (Late st Contact Info) Description 01/19/2025 4:00 PM EST Office Visit Family Practice [facility] [address] [facility] [place] [address] Ludy Jacobs CRNP [address] [facility] [place] [phone] 02/09/2025 1:00 PM EDT Home Visit [facility] [place], [facility] [address] [place] [address] Jerel Sam PA-C [address] [place] [address] 02/13/2025 3:30 PM EDT Telemedicine Care at Home [address] [place] [address] Lulu Yee PA-C [address] [place] [address] 02/14/2025 3:00 PM EDT Laboratory Laboratory, [facility] [address] [place] [phone] Daniel Zamans [address] [place] [address] 02/17/2025 5:30 PM EDT Pharmacy [facility] [place] [address] [place] [address] [place], Pharmacist Cardiology [facility] [address] [place] [address] 02/28/2025 3:30 PM EDT Telemedicine [facility]iology [facility] [place] [address] [place] [address] [place], Pharmacist Cardiology [facility] [address] [place] [address] 03/10/2025 9:40 AM EDT Home Visit [facility] [address] [place] [address] Nevin Choudhary, Community Health Filler And Trimmer [address] [place] [address] 04/14/2025 3:00 PM EDT Home Visit [facility], [facility] [address] [facility] [place] [address] Chiquis Vazquez, RN [address] [facility] [place] [address] 05/15/2025 4:30 PM EDT Imaging Radiology [facility] 1st [facility] [address] [facility] [place] [phone] 07/03/2025 3:00 PM EDT Office Visit Pulmonary Medicine, [facility] [address] [facility] [place] [address] Sony Duong MD [address] [place] [address] 07/17/2025 3:30 PM EDT Office Visit Cardiology, [facility] [address] [facility] [place] [address] Angeline Madsen PA-C [address] [place] [phone] Scheduled Procedures Name Priority Associated Diagnoses Date/Ti [...] 2) 03/06/2021 01/09/2021 CKD PHOS USE SMARTSET 19341 03/29/2022 03/29/2021, 0 03/28/2021 Albumin/Creatinine Ratio 09/29/2023 09/29/2022, 05/0 03/2021 Mammogram 03/02/2024 03/02/2023, 02/21, 11/04/2016, Additional history exists COVID-19 Vaccine ( season) 2024 10/21/2023, 09/26/2022, 09/26/2022, Additional history exists Cervical Cancer Screening 12/04/2024 Pap Smear 12/04/2024 12/04/2021, 02/21, 03/03/2016, Additional history exists GFR 01/30/2025 08/02/2024, 06/0 04/2024, 04/05/2024, Additional history exists CKD HGB USE SMARTSET 08110 08/02/202508/02, 08/02/2024, 04/28/2024, Additional history exists TSH [...] Agents on File Name Relationship Healthcare Agent [facility] p Communication Lopez Brown Spouse First Alternate Health Care Agent [place] Adult Child Health Care Agent Care Teams Food Production Manager Relationship Specialty Start Date End Date Ludy Jacobs CRNP [address] [place] [address] PCP - General Nurse Practitioner 04/20/24 documented as of this encounter
--- OUTSIDE RECORDS SUMMARY | 2025-01-15 19:43 | External Medical Summary | Summary of Care ---
Author Name Unknown Organization [facility] Address [address] [facility] [place] [address] Phone [phone] Care Team Providers Care Management Accountant Name Role Phone Ludy Jacobs Zeina LY Primary Care Provider Reason for Visit * Reason Onset Date Comments Medication Refill 01/05/2025 Encounter Details Date Type Department Care Team (Late st Contact Info) Description 01/05/2025 Refill Cardiology, [facility] [address] [place] [address] Virgil Hunter PA-C [address] [place] [phone] Chronic diastolic congestive heart failure (HCC) Allergies Active [...] CHAMBER DEVIIndications:C OPD with emphysema ([facility]) to be used with inhalers [...] C, 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 ([facility]),Chronic hypoxemic respiratory failure ([facility]) Use with nebulized medications 1 Each 07/24/20 22 Active Full Kit Nebulizer SetIndications:CO PD, group C, 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 ([facility]),Chronic hypoxemic respiratory failure ([facility]) Use with nebulizer 1 Each 07/24/20 22 Active Syringe 25G X 1-1/2" 3 ML Use for intramuscular B12 injection 1 Each 11 10/02/20 22 Active Albuterol Sulfate (2.5 MG/3ML) 0.083% Inhalation Nebulization Solution (Proventil)Indica tions:COPD, group D, 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 ([facility]) Inhale 1 Vial via nebulizer [...] Extended Release 24 Hour (toPROL XL)Indications:Ol d ME (myocardial infarction) TAKE 1 AND 1/2 [...] C, 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 ([facility]) Inhale 2 Puffs by mouth [...] BEDTIME 180 Tablet 3 01/03/20 25 Active Midodrine HCl 5 MG Oral Tablet (Proamatine)Indic ations:Chronic diastolic congestive heart failure (HCC) Take 1 Tablet by mouth in the morning and 1 Tablet at noon and 1 Tablet before bedtime. 270 Tablet 3 01/06/20 25 Active Midodrine HCl 5 MG Oral Tablet (Proamatine)Indic ations:Chronic diastolic congestive heart failure (HCC) Take 1 Tablet by mouth in the morning and 1 Tablet at noon and 1 Tablet before bedtime. 270 Tablet 3 07/29/20 23 025 Discontin ued(Refil l) Hospital, Clinic, or Other Facility Administered Medication Ordered Dose Route Frequency Start Date End Date Status Albuterol Sulfate (Proventil) (2.5 MG/3ML) 0.083% inhalation solution 2.5 mgIndications:COPD, group D, 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 ([facility]) 2.5 mg NEBULIZER ONCE PRN [...] noted above Atherosclerotic heart diseas e of [place] coronary artery with other forms of angina [...] 4:32 PM EDT): Appointment scheduled with [facility] pain clinic [place] 07/02. Statin intolerance 01/24/2022 Osteopenia 01/08/2022 LYNDON [...] use aero chamber. 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 Took high dose replacement. Due to repeat. Coronary artery disease invo lving [place] coronary artery of [place] heart without angina pectoris 11/12/2015 Assessment & [...] use aero chamber. Test performed by Flex TELEGRAPH INSTALLER CPFT Assessment & Plan (05/30/2022 4:27 PM [...] use aero chamber. Test performed by Flex TELEGRAPH INSTALLER [facility] COPD, group B, 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 [...] moderate 04/07/2012 10/05/2012 Overview (04/07/2012): PFT 03/2008 [facility] COPD, SEVERE 04/07/2012 05/04/2019 Overview: PER COPD PROTOCOL #24. PFT 03/2008 [facility] LAST PFT -06/07/12 Gastroesophageal reflux dise ase with esophagitis 04/30/2009 01/14/2022 Overview (05/15/2009): mild ADVANCE DIRECTIVE INFORMATION 12/02/2008 09/26/2024 Overview (12/02/2008): No, Advance Directive brochure offered , patient declined. COPD with emphysema 10/05/20 12 documented as of this encounter (statuses as of 01/06/2025) Immunizations Name Administration Dates Next Due COVID-19 mRNA, LNP-s, No Pre serve, 2-Dose Series ([employer]) 09/26/2022,11/18/2021,04/04/2021,02/28 COVID-19, MRNA-LNP, PF, 30 M CG/0.3 mL, 12 YRS AND ABOVE, IM ([employer]) 10/21/2023 Covid-19, Mrna, Lnp-s, Pf, B ivalent, [...] No 12/27/2024 Does the household have a re gular [...] 5:37 AM EDT Valentino Child RN documented as of this encounter Mental [...] 2:00 PM EST Signed Prescriptions: Disp Refills Midodrine HCl 5 MG Oral Tablet (Proamatine)270 Ta*3 Sig: Take 1 Tablet by mouth in the morning and 1 Tablet at noon and 1 Tablet before bedtime. Authorizing Provider: VIRGIL HUNTER * Telephone Encounter - Dylan White OSA - 01/06/2025 8:43 AM EST Patient has been scheduled on: RETURN CARDIOLOGY at 3:30 PM (30 min)Arrive by 3:15 PM Thursday July 17, 2025 Appointment Provider:Virgil Hunter PA-C in CARDIOLOGY [facility] * Telephone Encounter - April Lucero CMA - 01/06/2025 8:37 AM ESTPending Prescriptions: Disp Refills Midodrine HCl 5 MG Oral Tablet (Proamatine)270 Ta*3 Sig: Take 1 Tablet by mouth in the morning and 1 Tablet at noon and 1 Tablet before bedtime. * Telephone Encounter - Drew Peacock - 01/05/2025 8:47 PM ESTPending Prescriptions: Disp Refills Midodrine HCl 5 MG Oral Tablet (Proamatine)270 Ta*3 Sig: Take 1 Tablet by mouth in the morning and 1 Tablet at noon and 1 Tablet before bedtime. * Telephone Encounter - Drew Peacock - 01/05/2025 8:45 PM EST Did you pend patient's preferred pharmacy and medication before forwarding?yes Pharmacy: [facility] [address] Pending Prescriptions: Disp Refills Midodrine HCl 5 MG Oral Tablet (Proamatin*270 Ta*3 Sig: Take 1 Tablet by mouth in the morning and 1 Tablet at noon and 1 Tablet before bedtime. Last Visit: 04/27/2023 (in office), 05/01/2023 (telemedicine) Next Visit: Visit date not found If no future appointments scheduled, and last appointment is greater than a year ago, please schedule patient for a follow-up appointment Last date the medication was ordered: 07/29/2023 Is this request for a controlled substance?No Urine Drug Screen: Results for orders placed or performed in visit on 04/02/21 PAIN MANAGEMENT DRUG PANEL, URINE W/ INTERPRETATION Result Value Pain Management Interpretation Based on the medication information provided: [...] Screen, U Negative Oxycodone Screen, U Negative Specimen Validity Interpretation Normal Creatinine, U 36 Narrative Cutoff [...] 4:00 PM EST Office Visit [facility] Practice [facility] [address] [place] [address] Ludy Jacobs CRNP [address] [place] [phone] 02/09/2025 1:00 PM EDT [facility] [address] [place] [address] Jerel Sam PA-C [address] [place] [phone] 02/13/2025 3:30 PM EDT Telemedicine Care at Home [address] [facility] [address] Lulu Yee PA-C [address] [facility] [place] [address] 02/14/2025 3:00 PM EDT Laboratory Laboratory, [facility] [address] [place] [phone] Daniel Zamans [address] [place] [address] 02/17/2025 5:30 PM EDT Pharmacy Cardiology [facility] [place] [address] [place] [address] [place], Pharmacist Cardiology [facility] [address] [place] [address] 02/28/2025 3:30 PM EDT Telemedicine Cardiology [facility] [place] [address] [place] [address] [place], Pharmacist Cardiology [facility] [address] [place] [address] 03/10/2025 9:40 AM EDT Home Visit Care Coordination and Integration [address] [place] [address] Nevin Choudhary, Community Health Manager [facility] [address] [place] [address] 04/14/2025 3:00 PM EDT [facility] Visit [facility] [place], [facility] [address] [facility] [place] [address] Chiquis Vazquez, RN [address] [facility] [place] [address] 05/15/2025 4:30 PM EDT Imaging [facility] [address] [facility] [place] [phone] 07/03/2025 3:00 PM EDT Office Visit Pulmonary Medicine, [facility] [address] [facility] [place] [address] Sony Duong MD [address] [place] [address] 07/17/2025 3:30 PM EDT Office Visit Cardiology, [facility] [address] [place] [address] Virgil Hunter, CAROL [address] [place] [address] Scheduled Procedures Name Priority Associated Diagnoses Date/Ti [...] 2) 03/06/2021 01/09/2021 CKD PHOS USE SMARTSET 86112 03/29/2022 03/29/2021, 0 03/28/2021 Albumin/Creatinine Ratio 09/29/2023 09/29/2022, 05/0 03/2021 Mammogram 03/02/2024 03/02/2023, 02/21, 11/04/2016, Additional history exists COVID-19 Vaccine ( season) 2024 10/21/2023, 09/26/2022, 09/26/2022, Additional history exists Cervical Cancer Screening 12/04/2024 Pap Smear 12/04/2024 12/04/2021, 02/21, 03/03/2016, Additional history exists GFR 01/30/2025 08/02/2024, 06/0 04/2024, 04/05/2024, Additional history exists CKD HGB USE SMARTSET 51929 08/02/202508/02, 08/02/2024, 04/28/2024, Additional history exists TSH [...] 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 (HCC) Hypotension, unspecified hypotension type Old ME (myocardial infarction) Old myocardial infarction Lung nodules Other nonspecific abnormal finding of lung field Other chronic pain Advanced care planning/counseling discussion- Primary Other specified counseling Generalized anxiety disorder Major depressive disorder, recurrent episode, moderate (HCC) Major depressive disorder, recurrent episode, moderate Cerebellar hemangioma (HCC) Hemangioma of intracranial structures Atherosclerotic heart disease of [place] coronary artery with other forms of angina pectoris (HCC) Coronary artery disease involving [place] ir[place] coronary artery of [place] heart without angina pectoris Acquired hypothyroidism Unspecified [...] alone Sicca syndrome (HCC) Sicca syndrome Chronic diastolic congestive heart failure (HCC) Chronic diastolic heart failure documented in this encounter [...] Agents on File Name Relationship Healthcare Agent [facility] p Communication Lopez Brown Spouse First [facility] Health Care Agent [place] Adult Child Health Care Agent Care Teams Management Accountant Relationship Specialty Start Date End Date Ludy Jacobs CRNP [address] [place] [address] PCP - General Nurse Practitioner 04/20/24 documented as of this encounter
--- OUTSIDE RECORDS SUMMARY | 2025-01-15 19:44 | External Medical Summary | Summary of Care ---
Author Name Unknown Organization [facility] Address [address] [facility] [place] [address] Phone [phone] Care Team Providers Care Chocolate Production Machine Operator Name Role Phone Ludy Jacobs Zeina LY Primary Care Provider Encounter Details Date Type Department Care Team (Late st Contact Info) Description 12/27/2024 2:00 PM EST Home Visit [facility], [facility] [address] [facility] [place] [address] Chiquis Vazquez, RN [address] [place] [address] Allergies Active Allergy Reactions Criticality Noted Date [...] as of this encounter (statuses as of 12/28/2024) Medications VALVED HOLDING CHAMBER DEVIIndications:C OPD with emphysema ([facility]) to [...] hours, Informant: Transferring Facility Documents, Reported on 12/27/2024 Nebulizers (NEBULIZER COMPRESSOR) MISC Inhale via nebulizer. [...] 23 Active Empagliflozin 10 MG Oral Tablet (Jardiance)Indica tions:Chronic combined systolic and diastolic congestive heart failure (HCC) Take 1 Tablet by mouth in the morning. 90 Tablet 3 12/15/19 24 Active Entresto 24-26 MG Oral Tablet (sacubitril-valsa rtan 24-26 mg per tab)Indications:C hronic combined systolic and diastolic congestive heart failure (HCC),HFrEF (heart failure with reduced ejection fraction) (HCC) Take 1 Tablet by mouth in the morning and 1 Tablet before bedtime. 180 Tablet 3 12/15/19 24 Active Omeprazole 20 MG Oral Capsule [...] bedtime. 90 Capsule 5 06/20/20 24 Active LORazepam 0.5 MG Oral Tablet (Ativan) Take 1 Tablet by mouth daily as needed for Anxiety. Do not start before August 12, 2024. 30 Tablet 2 08/12/20 24 Active Ipratropium-Albut bryant 0.5-2.5 (3) MG/3ML Inhalation Solution (Duoneb) USE 1 AMPULE IN NEBULIZER 4 TIMES DAILY NEEDED FOR COUGH, SHORTNESS OF BREATH OR WHEEZING -USE IN PLACE OF RESCUE INHALER 360 mL 5 10/06/20 24 Active Metoprolol Succinate ER 50 MG Oral Tablet Extended Release 24 Hour (toPROL XL)Indications:Ol d VT (myocardial infarction) TAKE 1 AND 1/2 TABLETS BY MOUTH EVERY MORNING 135 Tablet 11/21/20 24 Active predniSONE 5 MG Oral Tablet (Deltasone)Indica tions:COPD, frequent exacerbations (HCC) As directed 30 Tablet 12/02/19 25 Active Additional Information Patient taking differently: 5 mg Daily(AM), As directed, Reported on 12/27/2024 Methocarbamol 500 MG Oral Tablet (Robamol)Indicati ons:Chronic [...] the morning. 30 Tablet 12/15/19 25 Active Ondansetron HCl 4 MG Oral Tablet (Zofran)Indicatio ns:Nausea TAKE (1) TABLET BY MOUTH EVERY EIGHT HOURS NEEDED FOR NAUSEA. Strength: 4 mg 30 Tablet 01/14/20 24 025 Discontin ued(Medic ation List Clean Up) Hospital, Clinic, or Other Facility Administered Medication Ordered Dose Route Frequency Start Date End Date Status Albuterol Sulfate (Proventil) (2.5 MG/3ML) 0.083% inhalation solution 2.5 mgIndications:COPD, group D, 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 ([facility]) 2.5 mg NEBULIZER ONCE PRN 04/28/2024 04/28/2025 Acti ve documented as of this encounter (statuses as of 12/28/2024) Active Problems Problem Noted Date Diagnosed Date [...] noted above Atherosclerotic heart diseas e of [place] coronary artery with other forms of angina [...] (05/30/2022 4:32 PM EDT): Appointment scheduled with [facility] pain clinic [place] 07/02. Statin intolerance 01/24/2022 Osteopenia 01/08/2022 LYNDON [...] use aero chamber. 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 Coronary artery disease invo lving [place] coronary artery of [place] heart without angina pectoris 11/12/2015 Assessment & [...] as of this encounter (statuses as of 12/28/2024) Resolved Problems Problem Noted Date Diagnosed Date [...] use aero chamber. Test performed by Flex ENGINE SPECIALIST CPFT Assessment & Plan (05/30/2022 4:27 PM [...] use aero chamber. Test performed by Flex ENGINE SPECIALIST CPFT COPD, group B, by GOLD 2017 [...] as of this encounter (statuses as of 12/28/2024) Immunizations Name Administration Dates Next Due COVID-19 mRNA, LNP-s, No Pre serve, 2-Dose Series (Mydeo) 09/26/2022,11/18/2021,04/04/2021,02/28 COVID-19, MRNA-LNP, PF, 30 M CG/0.3 mL, 12 YRS AND ABOVE, IM (Wantr-Comirnat) 10/21/2023 Covid-19, Mrna, Lnp-s, Pf, B ivalent, 30 Mcg, IM, 12 yrs and above (Mydeo) 09/26/2022 HEPATITIS B VACCINE, RECOMB, 20 MCG/ML, [...] 12/27/2024 Does the household have a re lar [...] ages 0-17 years) Not on file 12/27/2024 Comments No Sex and Gender Information [...] Progress Notes * Chiquis Vazquez RN - 12/27/2024 3:42 PM EST Current Concerns: [facility] Enrollment visit Utilization: Fall 2023 - [facility], COPD exacerbation (per pt report) Treatment/Plan: Fills own pill box O2 2LNC continuously ([facility]) takes to apts Gait steady without assistive device Continues to smoke but trying to quit Uses nebs qid at baseline - cleans nightly Encouraged to weigh daily and record Follows with [facility] at [facility]: States she is at her baseline Has not been weighing self for some time Bp typically runs low but feels better since taking midodrine and daughter remain supportive Has not driven in some time but able to if needed [facility] will not deliver new o2 tubing to pt until she returns an old concentrator to them, she has and will arrange with them States only smokes 5 cigarettes daily, R hand second and third fingers stained yellow Physical Exam: Physical Exam Constitutional: Appearance: She [...] verbalize an understanding of importance of notifying ocular care aide/provider with an increase in difficulty breathing. (Progressing) Start: 12/28/24 Expected End: 03/28/25 Goal Note Breathing at baseline today with use of nebs qid, states only smoking 5 cigarettes daily, however, fingers appear to have nicotine stains and home heavy with odor of cigarette smoke, also smokes, reports, ''we are both trying to quit,'' provided support and encouragement, encouraged to callPA Quitline for support, is able to look up number/info on internet independently Orders Placed: No orders of the defined types were placed in this encounter. Medications Given: none Care Gaps: Care Gaps Care gaps closed this contact: Education;Plan of Care (POC);Medications (12/27/24 8999) Type of education: Clinical/disease;Educated on the benefits of connecting with their PCP ([id number]) Type of medication care gap: Medication adherence (12/27/24 5558) Type of plan of care (POC) care gap: Creation of plan of care (POC) and/or Integrated Care Plan (ICP);Creation of exacerbation plan (developed exacerbation plan and 3 red flags);Adjustment of plan ofcare (POC) and/or Integrated Care Plan (ICP) (12/27/24 1606) documented in this encounter Plan of Treatment Upcoming Encounters Date Type Department Care Team (Late st Contact Info) Description 01/02/2025 3:30 PM EST Office Visit Pulmonary Medicine, [facility] [address] [place] [address] Sony Duong MD [address] [place] [phone] 01/19/2025 4:00 PM EST Office Visit Family Practice [facility] [address] [place] [address] Ludy Jacobs CRNP [address] [place] [address] 02/09/2025 1:00 PM EDT Home Visit [facility] [place], [facility] [address] [place] [address] Jerel Sam PA-C [address] [place] [address] 02/13/2025 3:30 PM EDT Telemedicine Care at Home [address] [place] [address] Lulu Yee PA-C [address], [place] [phone] 02/14/2025 3:00 PM EDT Laboratory Laboratory, [facility] [address] [place] [phone] [facility] [address] [place] [address] 02/17/2025 5:30 PM EDT Pharmacy Cardiology [facility] [place] [address] [place] [address] [place], Pharmacist Cardiology [address] [address] 02/28/2025 3:30 PM EDT Telemedicine [facility]iology [facility], [place] [address] [place] [address] [place], Pharmacist Cardiology [address] [address] 04/14/2025 3:00 PM EDT Home Visit ising at Home, [facility] [address] [facility] [place] [address] Chiquis Vazquez, RN [address] [facility] [place] [address] 05/15/2025 4:30 PM EDT Imaging Radiology [address] 132 [facility] [place] [phone] Scheduled Procedures Name Priority Associated Diagnoses Date/Ti [...] 2) 03/06/2021 01/09/2021 CKD PHOS USE SMARTSET 55759 03/29/2022 03/29/2021, 0 03/28/2021 Albumin/Creatinine Ratio 09/29/2023 09/29/2022, 05/0 03/2021 Mammogram 03/02/2024 03/02/2023, 02/21, 11/04/2016, Additional history exists COVID-19 Vaccine ( season) 2024 10/21/2023, 09/26/2022, 09/26/2022, Additional history exists Cervical Cancer Screening 12/04/2024 Pap Smear 12/04/2024 12/04/2021, 02/21, 03/03/2016, Additional history exists GFR 01/30/2025 08/02/2024, 06/0 04/2024, 04/05/2024, Additional history exists CKD HGB USE SMARTSET 31099 08/02/202508/02, 08/02/2024, 04/28/2024, Additional history exists TSH 08/02/2025 08/02/2024, 06/0 04/2024, 03/06/2023, Additional history exists Depression Monitoring 12/27/2025 12/27/2024 O2 ASSESSMENT COMPLETED IN PAST YEAR FOR COPD 12/27/2025 12/27/2024 Colonoscopy 04/30/2026 04/30/2023, 06/0 06/2023, 11/28/2019, Additional [...] Agents on File Name Relationship Healthcare Agent [facility] p Communication Lopez Brown Spouse First Alternate Health Care Agent [place] Adult Child Health Care Agent Care Teams Chocolate Production Machine Operator Relationship Specialty Start Date End Date Ludy Jacobs CRNP [address] [place] [address] PCP - General Nurse Practitioner 04/20/24 documented as of this encounter
--- OUTSIDE RECORDS SUMMARY | 2025-01-15 19:44 | External Medical Summary | Summary of Care ---
Author Name Unknown Organization [facility] Address [address] [facility] [place] [address] Phone [phone] Care Team Providers Care Cost Engineer Name Role Phone Ludy Jacobs Primary Care Provider Reason for Visit * Reason Onset Date Comments Medication Refill 12/29/2024 Encounter Details Date Type Department Care Team (Late st Contact Info) Description 12/29/2024 Refill Family Practice [facility] [address] [place] [address] Ludy Jacbos CRNP [address] [place] [phone] COPD, frequent exacerbations (HCC) Allergies Active Allergy Reactions Criticality Noted [...] as of this encounter (statuses as of 12/31/2024) Medications VALVED HOLDING CHAMBER DEVIIndications:C OPD with [...] :COPD, group C, 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 ([facility]),Chronic hypoxemic respiratory failure ([facility]) Use with nebulized medications 1 Each 07/24/20 22 Active Full Kit Nebulizer SetIndications:CO PD, group C, 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 ([facility]),Chronic hypoxemic respiratory failure ([facility]) Use with nebulizer 1 Each 07/24/20 22 Active Syringe 25G X 1-1/2" 3 ML Use for intramuscular B12 injection 1 Each 10/02/20 22 Active Albuterol Sulfate (2.5 MG/3ML) 0.083% Inhalation Nebulization Solution (Proventil)Indica tions:COPD, group D, 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 ([facility] [...] ns:COPD, group C, 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 ([facility] [...] subsequent refills. 30 Tablet 12/30/19 25 Active predniSONE 5 MG Oral Tablet (Deltasone)Indica tions:COPD, frequent exacerbations (HCC) As directed 30 Tablet 12/02/19 25 025 Discontin ued(Refil l) Hospital, Clinic, or Other Facility Administered Medication Ordered Dose Route Frequency Start Date End Date Status Albuterol Sulfate (Proventil) (2.5 MG/3ML) 0.083% inhalation solution 2.5 mgIndications:COPD, group D, 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 ([facility]) 2.5 mg NEBULIZER ONCE PRN 04/28/2024 04/28/2025 Acti ve documented as of this encounter (statuses as of 12/31/2024) Active Problems Problem Noted Date Diagnosed Date [...] above Atherosclerotic heart diseas e of [place] coronary artery with other forms of angina [...] (05/30/2022 4:32 PM EDT): Appointment scheduled with [facility] pain clinic [place] 07/02. Statin intolerance 01/24/2022 Osteopenia 01/08/2022 LYNDON [...] use aero chamber. 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 Coronary artery disease invo lving [place] coronary artery of [place] heart without angina pectoris 11/12/2015 Assessment & [...] as of this encounter (statuses as of 12/31/2024) Resolved Problems Problem Noted Date Diagnosed Date [...] use aero chamber. Test performed by Flex CROWN ASSEMBLY MACHINE SET UP MECHANIC CPFT Assessment & Plan (05/30/2022 4:27 PM [...] use aero chamber. Test performed by Flex CROWN ASSEMBLY MACHINE SET UP MECHANIC CPFT COPD, group B, by GOLD 2017 [...] 04/07/2012 10/05/2012 Overview (04/07/2012): PFT 03/2008 [facility] COPD, SEVERE 04/07/2012 05/04/2019 Overview: PER COPD PROTOCOL #24. PFT 03/2008 [facility] LAST PFT -06/07/12 Gastroesophageal reflux dise ase with esophagitis 04/30/2009 01/14/2022 Overview (05/15/2009): mild ADVANCE DIRECTIVE INFORMATION 12/02/2008 09/26/2024 Overview (12/02/2008): No, Advance Directive brochure offered , patient declined. COPD with emphysema 10/05/20 12 documented as of this encounter (statuses as of 12/31/2024) Immunizations Name Administration Dates Next Due COVID-19 mRNA, LNP-s, No Pre serve, 2-Dose Series ([employer]) 09/26/2022,11/18/2021,04/04/2021,02/28 COVID-19, MRNA-LNP, PF, 30 M CG/0.3 mL, 12 YRS AND ABOVE, IM (Travel Desiya-Comirnatyeppt) 10/21/2023 Covid-19, Mrna, Lnp-s, Pf, B ivalent, [...] encounter Miscellaneous Notes * Telephone Encounter - Jameel Segovia MD - 12/31/2024 1:05 PM EST Signed Prescriptions: Disp Refills predniSONE 5 MG Oral Tablet (Deltasone) 30 Tab*1 Sig: Take 1 Tablet by mouth in the morning. As directed. Authorizing Provider: JAMEEL SEGOVIA * Telephone Encounter - Karen Warren, MED ASSIST - 12/31/2024 12:37 PM EST Pending Prescriptions: Disp Refills predniSONE 5 MG Oral Tablet (Deltasone) 30 Tab*0 Sig: As directed * Telephone Encounter - Drew Peacock - 12/30/2024 7:22 AM ESTPending Prescriptions: Disp Refills predniSONE 5 MG Oral Tablet (Deltasone) 30 Tab*0 Sig: As directe d documented in this encounter Plan of Treatment Upcoming Encounters Date Type Department Care Team (Late st Contact Info) Description 01/02/2025 3:30 PM EST Office Visit Pulmonary Medicine, [facility] [address] [place] [address] Sony Duong [facility] [address] [facility] [phone] 01/19/2025 4:00 PM EST Office Visit Family Practice [facility] [address] [place] [address] Ludy Jacobs CRNP [address] [place] [address] 02/09/2025 1:00 PM EDT Home Visit [facility] at [facility] [address] [place] [address] Jerel Sam PA-C [address] [place] [address] 02/13/2025 3:30 PM EDT Telemedicine Care at Home [address] [place] [address] Lulu Yee PA-C [address] [place] [address] 02/14/2025 3:00 PM EDT Laboratory Laboratory, [facility] 132 [facility] [place] [phone] [facility] [address] [facility] [place] [address] 02/17/2025 5:30 PM EDT Pharmacy [facility]iology [facility] [place] [address] [place] [address] [place], Pharmacist Cardiology H[place] [address] [place] [address] 02/28/2025 3:30 PM EDT Telemedicine Cardiology [facility] [place] [address] [place] [address] [place], Pharmacist Cardiology [facility] [address] [place] [address] 03/10/2025 9:40 AM EDT Home Visit [facility] [address] [place] [address] Nevin Choudhary, Community Health Game Programmer [address] [place] [address] 04/14/2025 3:00 PM EDT [facility] Visit [facility], [facility] [address] [facility] [place] [address] Chiquis Vazquez, RN 132 [facility] [place] [address] 05/15/2025 4:30 PM EDT Imaging Radiology [facility] [address]st [facility] [place] [address] [place] [phone] Scheduled Procedures Name Priority Associated Diagnoses Date/Ti [...] 2) 03/06/2021 01/09/2021 CKD PHOS USE SMARTSET 25749 03/29/2022 03/29/2021, 0 03/28/2021 Albumin/Creatinine Ratio 09/29/2023 09/29/2022, 05/0 03/2021 Mammogram 03/02/2024 03/02/2023, 02/21, 11/04/2016, Additional history exists COVID-19 Vaccine ( season) 2024 10/21/2023, 09/26/2022, 09/26/2022, Additional history exists Cervical Cancer Screening 12/04/2024 Pap Smear 12/04/2024 12/04/2021, 02/21, 03/03/2016, Additional history exists GFR 01/30/2025 08/02/2024, 06/0 04/2024, 04/05/2024, Additional history exists CKD HGB USE SMARTSET 67498 08/02/202508/02, 08/02/2024, 04/28/2024, Additional history exists TSH 08/02/2025 08/02/2024, 06/0 04/2024, 03/06/2023, Additional history exists Depression Monitoring 12/27/2025 12/27/2024 O2 ASSESSMENT COMPLETED IN PAST YEAR FOR COPD 12/27/2025 12/27/2024 Colonoscopy 04/30/2026 04/30/2023, 06/2023, 11/28/2019, Additional history exists Colorectal Cancer [...] of intracranial structures Atherosclerotic heart disease of [place] coronary artery with other forms of angina pectoris (HCC) Coronary artery disease involving [place] coronary artery of [place] heart without angina pectoris Acquired hypothyroidism Unspecified [...] alone Sicca syndrome (HCC) Sicca syndrome COPD, frequent exacerbations (HCC) Chronic airway obstruction, not elsewhere classified documented in this encounter Advance Directives * [...] Agents on File Name Relationship Healthcare Agent [facility] p Communication Lopez Brown Spouse First [facility] Health Care Agent [place] Adult Child Health Care Agent Care Teams Cost Engineer Relationship Specialty Start Date End Date Ludy Jacobs CRNP [address] [place] [address] PCP - General Nurse Practitioner 04/20/24 documented as of this encounter
--- OUTSIDE RECORDS SUMMARY | 2025-01-15 19:44 | External Medical Summary | Summary of Care ---
Author Name Unknown Organization [facility] Address [address] [facility] [place] [address] Phone [phone] Care Team Providers Care Wired Sweatband Cutter Name Role Phone Ludy Jacobs Zeina LY Primary Care Provider Encounter Details Date Type Department Care Team (Late st Contact Info) Description 12/27/2024 2:00 PM EST Home Visit [facility], [facility] [address] [facility] [place] [address] Chiquis Vazquez, RN [address] [place] [address] Allergies Active Allergy Reactions Criticality Noted Date [...] VALVED HOLDING CHAMBER DEVIIndications:C OPD with emphysema ([facility]) to be used with inhalers [...] :COPD, group C, 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 ([facility]),Chronic hypoxemic respiratory failure ([facility]) Use with nebulized medications 1 Each 07/24/20 22 Active Full Kit Nebulizer SetIndications:CO PD, group C, 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 ([facility]),Chronic hypoxemic respiratory failure ([facility]) Use with nebulizer 1 Each 07/24/20 22 Active Syringe 25G X 1-1/2" 3 ML Use for intramuscular B12 injection 1 Each 10/02/20 22 Active Albuterol Sulfate (2.5 MG/3ML) 0.083% Inhalation Nebulization Solution (Proventil)Indica tions:COPD, group D, 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 ([facility]) Inhale 1 Vial via nebulizer [...] Extended Release 24 Hour (toPROL XL)Indications:Ol d AK (myocardial infarction) TAKE 1 AND 1/2 [...] ns:COPD, group C, 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 ([facility]) Inhale 2 Puffs by mouth [...] mgIndications:COPD, group D, 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 ([facility]) 2.5 mg NEBULIZER ONCE PRN [...] noted above Atherosclerotic heart diseas e of [place] coronary artery with other forms of angina [...] EDT): Appointment scheduled with [facility] pain clinic [place] 07/02. Statin intolerance 01/24/2022 Osteopenia 01/08/2022 LYNDON [...] use aero chamber. 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 Took high dose replacement. Due to repeat. Coronary artery disease invo lving kot[place] coronary artery of [place] heart without angina pectoris 11/12/2015 Assessment & Plan (01/22/2023 12:36 PM EST): Stable no angina -continue ASA, metoprolol xl, repatha. Can't tolerate delgado d/t low bp Dyslipidemia, goal LDL below 70 11/12/2015 Sicca syndrome 12/29/2014 Acquired hypothyroidism 12/29/2014 Assessment & Plan (01/22/2023 12:45 PM EST): Continue synthroid Old AK (myocardial infarction) 11/01/2013 Assessment & Plan (05/30/2022 [...] use aero chamber. Test performed by Flex HEAD COOK CPFT Assessment & Plan (05/30/2022 4:27 PM [...] use aero chamber. Test performed by Flex HEAD COOK CPFT COPD, group B, by GOLD 2017 [...] moderate 04/07/2012 10/05/2012 Overview (04/07/2012): PFT 03/2008 [facility] COPD, SEVERE 04/07/2012 05/04/2019 Overview: PER COPD PROTOCOL #24. PFT 03/2008 [facility] LAST PFT -06/07/12 Gastroesophageal reflux dise ase with esophagitis 04/30/2009 01/14/2022 Overview (05/15/2009): mild ADVANCE DIRECTIVE INFORMATION 12/02/2008 09/26/2024 Overview (12/02/2008): No, Advance Directive brochure offered , patient declined. COPD with emphysema 10/05/20 12 documented as of this encounter (statuses as of 12/28/2024) Immunizations Name Administration Dates Next Due COVID-19 mRNA, LNP-s, No Pre serve, 2-Dose Series (soup.me) 09/26/2022,11/18/2021,04/04/2021,02/28 COVID-19, MRNA-LNP, PF, 30 M CG/0.3 mL, 12 YRS AND ABOVE, IM (GoodApril-Comirnat) 10/21/2023 Covid-19, Mrna, Lnp-s, Pf, B ivalent, 30 Mcg, IM, 12 yrs and above (soup.me) 09/26/2022 HEPATITIS B VACCINE, RECOMB, 20 MCG/ML, [...] - 12/27/2024 3:42 PM EST Current Concerns: [facility] Enrollment visit Utilization: Fall 2023 - [facility], COPD exacerbation (per pt report) Treatment/Plan: Fills own pill box O2 2LNC continuously ([employer]) takes to apts Gait steady without assistive device Continues to smoke but trying to quit Uses nebs qid at baseline - cleans nightly Encouraged to weigh daily and record Follows with [facility]: States she is [...] verbalize an understanding of importance of notifying progressive care nurse/provider with an increase in difficulty breathing. (Progressing) [...] this contact: Education;Plan of Care (POC);Medications (12/27/24 5012) Type of education: Clinical/disease;Educated on the benefits of connecting with their PCP ([id number]) Type of medication care gap: Medication adherence (12/27/24 4138) Type of plan of care (POC) care [...] 3:30 PM EST Office Visit Pulmonary Medicine, [facility] [address] [place] [address] Sony Duong MD [address] [place] [phone] 01/19/2025 4:00 PM EST Office Visit Family Practice [facility] [address] [place] [address] Ludy Jacobs CRNP [address] [place] [address] 02/09/2025 1:00 PM EDT [facility] Visit [facility] [place], [facility] [address] [place] [address] Jerel Sam PA-C [address] [place] [address] 02/13/2025 3:30 PM EDT Telemedicine Care at Home [address] [place] [address] Lulu Yee PA-C [address] [place], [place] [phone] 02/14/2025 3:00 PM EDT Laboratory Laboratory, [facility] [address] [place] [phone] Daniel Zaman [facility] [address] [place] [address] 02/17/2025 5:30 PM EDT Pharmacy [facility] [place] [address] [place] [address] [place], Pharmacist Cardiology [address] [address] 02/28/2025 3:30 PM EDT Telemedicine [facility], [place] [address] [place] [address] [place], Pharmacist Cardiology [address] [address] 04/14/2025 3:00 PM EDT Home Visit [place] at Home, [facility] [address] [facility] [place] [address] Chiquis Vazquez, RN 132 [facility] [place] [address] 05/15/2025 4:30 PM EDT Imaging Radiology [address] 132 [facility] [place] [phone] Scheduled Procedures Name Priority Associated Diagnoses Date/Ti [...] 2) 03/06/2021 01/09/2021 CKD PHOS USE SMARTSET 95311 03/29/2022 03/29/2021, 0 03/28/2021 Albumin/Creatinine Ratio 09/29/2023 09/29/2022, 05/0 03/2021 Mammogram 03/02/2024 03/02/2023, 02/21, 11/04/2016, Additional history exists COVID-19 Vaccine ( season) 2024 10/21/2023, 09/26/2022, 09/26/2022, Additional history exists Cervical Cancer Screening 12/04/2024 Pap Smear 12/04/2024 12/04/2021, 02/21, 03/03/2016, Additional history exists GFR 01/30/2025 08/02/2024, 06/0 04/2024, 04/05/2024, Additional history exists CKD HGB USE SMARTSET 70242 08/02/202508/02, 08/02/2024, 04/28/2024, Additional history exists TSH [...] Agents on File Name Relationship Healthcare Agent [facility] p Communication Lopez Brown Spouse First Alternate Health Care Agent [place] Adult Child Health Care Agent Care Teams Wired Sweatband Cutter Relationship Specialty Start Date End Date Ludy Jacobs CRNP [address] [place] [phone] PCP - General Nurse Practitioner 04/20/24 documented as of this encounter
--- OUTSIDE RECORDS SUMMARY | 2025-01-15 19:44 | External Medical Summary | Summary of Care ---
Author Name Unknown Organization [facility] Address [address] [facility] [place] [address] Phone [phone] Care Team Providers Care Weighmaster Lead Name Role Phone Ludy Jacobs Zeina LY Primary Care Provider Reason for Visit * Reason Comments eRx-Medication Refill Encounter Details Date Type Department Care Team (Late st Contact Info) Description 01/02/2025 Refill Cardiology, [facility] [address] [place] [address] Virgil Hunter PA-C [address] [place] [address] Chronic combined systolic and diastolic congestive heart failure (HCC); HFrEF (heart failure with reduced ejection fraction) ([facility]) Allergies Active Allergy Reactions Criticality Noted Date [...] as of this encounter (statuses as of 01/03/2025) Medications VALVED HOLDING CHAMBER DEVIIndications:C OPD with emphysema ([facility]) to be used with inhalers as [...] :COPD, group C, 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 ([facility]),Chronic hypoxemic respiratory failure ([facility]) Use with nebulized medications 1 Each 022 Active Full Kit Nebulizer SetIndications:CO PD, group C, 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 ([facility]),Chronic hypoxemic respiratory failure ([facility]) Use with nebulizer 1 Each 022 Active Syringe 25G X 1-1/2" 3 ML Use for intramuscular B12 injection 1 Each 11 022 Active Albuterol Sulfate (2.5 MG/3ML) 0.083% Inhalation Nebulization Solution (Proventil)Indica tions:COPD, group D, 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 ([facility]) Inhale 1 Vial via nebulizer 4 [...] the morning. 90 Tablet 3 024 Active Omeprazole 20 MG Oral Capsule [...] Extended Release 24 Hour (toPROL XL)Indications:Ol d ID (myocardial infarction) TAKE 1 AND 1/2 [...] ns:COPD, group C, 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 ([facility]) Inhale 2 Puffs by mouth every [...] get subsequent refills. 30 Tablet 025 Active Trelegy Ellipta 100-62.5-25 MCG/ACT Aerosol Powder Breath Activated (Fluticasone-Umec lidinium-Vilanter ol) Inhale 1 Puff by mouth in the morning. 240 Blister Dosing Unit 025 2024 Active Entresto 24-26 MG Oral Tablet (sacubitril-valsa rtan 24-26 mg per tab)Indications:C hronic combined systolic and diastolic congestive heart failure (HCC),HFrEF (heart failure with reduced ejection fraction) ([facility]) TAKE 1 TABLET BY MOUTH EVERY MORNING AND 1 TABLET BEFORE BEDTIME 180 Tablet 3 025 Active Entresto 24-26 MG Oral Tablet (sacubitril-valsa rtan 24-26 mg per tab)Indications:C hronic combined systolic and diastolic congestive heart failure (HCC),HFrEF (heart failure with reduced ejection fraction) ([facility]) Take 1 Tablet by mouth in the morning and 1 Tablet before bedtime. 180 Tablet 3 024 2024 Discontinued Hospital, Clinic, or Other Facility Administered Medication Ordered Dose Route Frequency Start Date End Date Status Albuterol Sulfate (Proventil) (2.5 MG/3ML) 0.083% inhalation solution 2.5 mgIndications:COPD, group D, 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 ([facility]) 2.5 mg NEBULIZER ONCE PRN 04/28/2024 04/28/2025 Acti ve documented as of this encounter (statuses as of 01/03/2025) Active Problems Problem Noted Date Diagnosed Date [...] noted above Atherosclerotic heart diseas e of [place] coronary artery with other forms of angina [...] (05/30/2022 4:32 PM EDT): Appointment scheduled with [facility] pain clinic [place] 07/02. Statin intolerance 01/24/2022 Osteopenia 01/08/2022 LYNDON [...] use aero chamber. 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 Took high dose replacement. Due to repeat. Coronary artery disease invo lving [place]a'[place] coronary artery of [place]a'[place] heart without angina pectoris 11/12/2015 Assessment & Plan (01/22/2023 12:36 PM EST): Stable no angina -continue ASA, metoprolol xl, repatha. Can't tolerate delgado d/t low bp Dyslipidemia, goal LDL below 70 11/12/2015 Sicca syndrome 12/29/2014 Acquired hypothyroidism 12/29/2014 Assessment & Plan (01/22/2023 12:45 PM EST): Continue synthroid Old ID (myocardial infarction) 11/01/2013 Assessment & Plan (05/30/2022 [...] as of this encounter (statuses as of 01/03/2025) Resolved Problems Problem Noted Date Diagnosed Date [...] 01/21/2023 Major depressive disorder with single episode 11/15/20 21 01/27/2024 Chronic kidney disease, stage 3b [...] use aero chamber. Test performed by Flex AUTOMOBILE RENTAL REPRESENTATIVE CPFT Assessment & Plan (05/30/2022 4:27 PM [...] use aero chamber. Test performed by Flex AUTOMOBILE RENTAL REPRESENTATIVE CPFT COPD, group B, by GOLD 2017 [...] 04/07/2012 10/05/2012 Overview (04/07/2012): PFT 03/2008 [facility] COPD, SEVERE 04/07/2012 05/04/2019 Overview: PER COPD PROTOCOL #24. PFT 03/2008 [facility] LAST PFT -06/07/12 Gastroesophageal reflux dise ase with esophagitis 04/30/2009 01/14/2022 Overview (05/15/2009): mild ADVANCE DIRECTIVE INFORMATION 12/02/2008 09/26/2024 Overview (12/02/2008): No, Advance Directive brochure offered , patient declined. COPD with emphysema 10/05/20 12 documented as of this encounter (statuses as of 01/03/2025) Immunizations Name Administration Dates Next Due COVID-19 mRNA, LNP-s, No Pre serve, 2-Dose Series ([employer]) 09/26/2022,11/18/2021,04/04/2021,02/28 COVID-19, MRNA-LNP, PF, 30 M CG/0.3 mL, 12 YRS AND ABOVE, IM (Udex-Comirnaty) 10/21/2023 Covid-19, Mrna, Lnp-s, Pf, B ivalent, [...] of Assessment Author Yes 03/28/2021 5:37 AM YASMINET Valentino Child RN * Because of a [...] encounter Miscellaneous Notes * Telephone Encounter - Vijaya Cherry, [facility] - 01/03/2025 8:30 AM ESTSigned Prescriptions: Disp Refills Entresto 24-26 MG Oral Tablet (sacubitril-*180 Ta*3 Sig: TAKE 1 TABLET BY MOUTH EVERY MORNING AND 1 TABLET BEFORE BEDTIME Authorizing Provider: VIRGIL HUNTER Ordering User: VIJAYA CHERRY * Telephone Encounter - Drew Peacock - 01/03/2025 4:34 AM ESTPending Prescriptions: Disp Refills Entresto 24-26 MG Oral Tablet [Pharmacy Me*180 Ta*3 Sig: TAKE 1 TABLET BY MOUTH EVERY MORNING AND 1 TABLET BEFORE BEDTIME * Telephone Encounter - Drew Peacock [facility] - 01/03/2025 4:31 AM EST Did you pend patient's preferred pharmacy and medication before forwarding?yes Pharmacy: [facility] [address] Pending Prescriptions: Disp Refills Entresto 24-26 MG Oral Tablet (sacubitril*180 Ta*3 Sig: TAKE 1 TABLET BY MOUTH EVERY MORNING AND 1 TABLET BEFORE BEDTIME Last Visit: 04/27/2023 (in office), 05/01/2023 (telemedicine) Next Visit: Visit date not found If no future appointments scheduled, and last appointment is greater than a year ago, please schedule patient for a follow-up appointment Last date the medication was ordered: 12/15/2023 Is this request for a controlled substance?No [...] Description 01/19/2025 4:00 PM EST Office Visit [facility] [address] [place] [address] Ludy Jacobs CRNP [address] [place] [address] 02/09/2025 1:00 PM EDT [facility], [facility] [address] [place] [address] Jerel Sam PA-C [address] [place] [address] 02/13/2025 3:30 PM EDT Telemedicine Care at Home [address] [place] [address] Lulu Yee PA-C [address] [place] [address] 02/14/2025 3:00 PM EDT Laboratory Laboratory, [facility] [address] [place] [phone] [facility] [address] [place] [address] 02/17/2025 5:30 PM EDT Pharmacy [facility]iology [facility] [place] [address] [place] [address] [facility] [address] [place] [address] 02/28/2025 3:30 PM EDT Telemedicine Cardiology [facility], [place] [address] [place] [address] [facility], Pharmacist Card[facility] [address] [place] [address] 03/10/2025 9:40 AM EDT Home Visit [facility] [address] [place] [address] Nevin Choudhary, [facility] International Operations Manager [address] [place] [address] 04/14/2025 3:00 PM EDT [facility], [facility] [place] [address] Chiquis Vazquez, RN 132 [facility] [place] [address] 05/15/2025 4:30 PM EDT Imaging [facility] 132 [facility] [place] [phone] 07/03/2025 3:00 PM EDT Office Visit Pulmonary Medicine, [facility] 132 [facility] [place] [address] Sony Duong MD [address] [facility] [address] Scheduled Procedures Name Priority Associated Diagnoses Date/Ti [...] 2) 03/06/2021 01/09/2021 CKD PHOS USE SMARTSET 17246 03/29/2022 03/29/2021, 0 03/28/2021 Albumin/Creatinine Ratio 09/29/2023 09/29/2022, 05/0 03/2021 Mammogram 03/02/2024 03/02/2023, 04, 11/04/2016, Additional history exists COVID-19 Vaccine ( season) 2024 10/21/2023, 09/26/2022, 09/26/2022, Additional history exists Cervical Cancer Screening 12/04/2024 Pap Smear 12/04/2024 12/04/2021, 02/21, 03/03/2016, Additional history exists GFR 01/30/2025 08/02/2024, 06/0 04/2024, 04/05/2024, Additional history exists CKD HGB USE SMARTSET 32021 08/02/202508/02, 08/02/2024, 04/28/2024, Additional history exists TSH [...] 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 (HCC) Hypotension, unspecified hypotension type Old ID (myocardial infarction) Old myocardial infarction Lung nodules Other nonspecific abnormal finding of lung field Other chronic pain Advanced care planning/counseling discussion- Primary Other specified counseling Generalized anxiety disorder Major depressive disorder, recurrent episode, moderate (HCC) Major depressive disorder, recurrent episode, moderate Cerebellar hemangioma (HCC) Hemangioma of intracranial 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 (HCC) Coronary artery disease involving [place]a'[place] coronary artery of [place] heart without angina pectoris Acquired hypothyroidism Unspecified [...] Chronic combined systolic and diastolic heart failure HFrEF (heart failure with reduced ejection fraction) ([facility]) documented in this encounter Advance Directives * [...] Agents on File Name Relationship Healthcare Agent [facility] p Communication Lopez Brown Spouse First Alternate Health Care Agent [place] Adult Child Health Care Agent Care Teams Weighmaster Lead Relationship Specialty Start Date End Date Ludy Jacobs CRNP [address] [place] [address] PCP - General Nurse Practitioner 04/20/24 documented as of this encounter
--- OUTSIDE RECORDS SUMMARY | 2025-01-15 19:44 | External Medical Summary | Summary of Care ---
Author Name Unknown Organization [facility] Address [address] [place] [address] Phone [phone] Care Team Providers Care Side Guider Name Role Phone Ludy Jacobs Primary Care Provider Reason for Visit * Reason Onset Date Comments Appointment 12/28/2024 Encounter Details Date Type Department Care Team (Late st Contact Info) Description 12/28/2024 Telephone [facility] [place] [address] [place] [address] Thomas Whitmore OSA [address] [place] [address] Appointment Allergies Active Allergy Reactions Criticality Noted Date [...] as of this encounter (statuses as of 12/29/2024) Medications VALVED HOLDING CHAMBER DEVIIndications:CO PD with [...] Each 07/24/20 22 Active Full Kit Nebulizer SetIndications:PAI GOW MANAGER D, group C, 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 [...] Tablet Extended Release 24 Hour (toPROL XL)Indications:Old CO (myocardial infarction) TAKE 1 AND 1/2 TABLETS BY MOUTH EVERY MORNING 135 Tablet 11/21/20 24 Active predniSONE 5 MG Oral Tablet (Deltasone)Indicat ions:COPD, frequent exacerbations (HCC) As directed 30 Tablet 12/02/19 25 Active Additional Information Patient taking differently: 5 mg Daily(AM), As directed, Reported on 12/27/2024 Methocarbamol 500 MG Oral Tablet (Robamol)Indicatio ns:Chronic [...] the morning. 30 Tablet 12/15/19 25 Active Hospital, Clinic, or Other Facility Administered Medication Ordered Dose Route Frequency Start Date End Date Status Albuterol Sulfate (Proventil) (2.5 MG/3ML) 0.083% inhalation solution 2.5 mgIndications:COPD, group D, 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 ([facility]) 2.5 mg NEBULIZER ONCE PRN 04/28/2024 04/28/2025 Acti ve documented as of this encounter (statuses as of 12/29/2024) Active Problems Problem Noted Date Diagnosed Date [...] noted above Atherosclerotic heart diseas e of [place] coronary artery with other forms of angina [...] (05/30/2022 4:32 PM EDT): Appointment scheduled with [facility] pain clinic [place] 07/02. Statin intolerance 01/24/2022 Osteopenia 01/08/2022 LYNDON [...] use aero chamber. 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 Took high dose replacement. Due to repeat. Coronary artery disease invo lving ek[place] coronary artery of [place] heart without angina pectoris 11/12/2015 Assessment & [...] as of this encounter (statuses as of 12/29/2024) Resolved Problems Problem Noted Date Diagnosed Date [...] use aero chamber. Test performed by [employer] Assessment & Plan (05/30/2022 4:27 PM [...] use aero chamber. Test performed by [employer] COPD, group B, by GOLD 2017 [...] as of this encounter (statuses as of 12/29/2024) Immunizations Name Administration Dates Next Due COVID-19 mRNA, LNP-s, No Pre serve, 2-Dose Series ([facility]) 09/26/2022,11/18/2021,04/04/2021,02/28 COVID-19, MRNA-LNP, PF, 30 M CG/0.3 mL, 12 YRS AND ABOVE, IM ([facility]) 10/21/2023 Covid-19, Mrna, Lnp-s, Pf, B ivalent, 30 Mcg, IM, 12 yrs and above ([facility]) 09/26/2022 HEPATITIS B VACCINE, RECOMB, 20 MCG/ML, [...] encounter Miscellaneous Notes * Telephone Encounter - Thomas Whitmore OSA - 12/28/2024 5:23 PM EST Task Request - Schedule [facility] home visit, Return HV around March 12 please Scheduled a visit with Nevin Choudhary on March 10 at 9:40 am. Spoke with patient and confirmed. documented in this encounter Plan of Treatment Upcoming Encounters Date Type Department Care Team (Late st Contact Info) Description 01/02/2025 3:30 PM EST Office Visit Pulmonary Medicine, [facility] [address] [place] [id number] Sony Duong MD [address] [facility] [place] [phone] 01/19/2025 4:00 PM EST Office Visit Family Practice [facility] [address] [place] [id number] Ludy Jacobs CRNP [address] [facility] [place] [address] 02/09/2025 1:00 PM EDT Home Visit [facility] [address] [facility] [address] Jerel Sam PA-C [address] [place] [address] 02/13/2025 3:30 PM EDT Telemedicine Care at Home [address] [place] [address] Lulu Yee PA-C [address] [place] [address] 02/14/2025 3:00 PM EDT Laboratory Laboratory, [facility] [address] [place] [id number] [facility] Daniel [facility] [address] [place] [address] 02/17/2025 5:30 PM EDT Pharmacy [facility]iology [facility], [place] [address] [place] [address] [place], Pharmacist Cardiology [facility] [address] [place] [address] 02/28/2025 3:30 PM EDT Telemedicine [facility]iology [facility] [place] [address] [place] [address] [place], Pharmacist Cardiology [facility] [address] [place] [address] 03/10/2025 9:40 AM EDT Home Visit [facility] [address] [place] [address] Nevin Choudhary [facility] Drafting Clerk [address] [place] [address] 04/14/2025 3:00 PM EDT Home Visit [facility], [facility] [address] [place] [address] Chiquis Vazquez, RN [address] [place] [address] 05/15/2025 4:30 PM EDT Imaging Radiology [address] [place] [id number] Scheduled Procedures Name Priority Associated Diagnoses [...] 2) 03/06/2021 01/09/2021 CKD PHOS USE SMARTSET 08269 03/29/2022 03/29/2021, 0 03/28/2021 Albumin/Creatinine Ratio 09/29/2023 09/29/2022, 05/0 03/2021 Mammogram 03/02/2024 03/02/2023, 02/21, 11/04/2016, Additional history exists COVID-19 Vaccine ( season) 2024 10/21/2023, 09/26/2022, 09/26/2022, Additional history exists Cervical Cancer Screening 12/04/2024 Pap Smear 12/04/2024 12/04/2021, 02/21, 03/03/2016, Additional history exists GFR 01/30/2025 08/02/2024, 06/0 04/2024, 04/05/2024, Additional history exists CKD HGB USE SMARTSET 77847 08/02/202508/02, 08/02/2024, 04/28/2024, Additional history exists TSH [...] Brown Spouse First Alternate Health Care Agent [place] Adult Child Health Care Agent Care Teams Side Guider Relationship Specialty Start Date End Date Ludy Jacobs CRNP [address] [place] [id number] PCP - General Nurse Practitioner 04/20/24 documented as of this encounter
--- OUTSIDE RECORDS SUMMARY | 2025-01-15 19:44 | External Medical Summary | Summary of Care ---
Author Name Unknown Organization [facility] Address [address] [facility] [place] [address] Phone [phone] Care Team Providers Care Jigger Operator Name Role Phone Arlene Ludy LY Primary Care Provider Reason for Visit * Reason Comments Follow Up Return. 4 week. COPD . PET scan. Would like results explained to her. Encounter Details Date Type Department Care Team (Latest Contact Info) Description 01/02/2025 3:30 PM EST Office Visit Pulmonary Medicine, [facility] [address] [facility] [place] [address] Sony Duong MD [address] [place] [address] Lung nodules*; Chronic hypoxemic respiratory failure (HCC); Centrilobular emphysema (HCC); COPD, group D, 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 (HCC); Chronic combined systolic and diastolic congestive heart failure (HCC); Tobacco use; History of pneumothorax Allergies Active Allergy Reactions Criticality Noted Date [...] as of 01/03/2025) Medications VALVED HOLDING CHAMBER DEVIIndications:CO PD with emphysema ([facility]) to be used with inhalers as [...] Each 07/24/20 22 Active Full Kit Nebulizer SetIndications: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 Statin intolerance 01/24/2022 Osteopenia 01/08/2022 LYNDON [...] use aero chamber. 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 Took high dose replacement. Due to repeat. Coronary artery disease invo lving belkofski coronary artery of belkofski heart without angina pectoris 11/12/2015 Assessment & Plan (01/22/2023 12:36 PM EST): Stable no angina -continue ASA, metoprolol xl, repatha. Can't tolerate delgado d/t low bp Dyslipidemia, goal LDL below 70 11/12/2015 Sicca syndrome 12/29/2014 Acquired hypothyroidism 12/29/2014 Assessment & Plan (01/22/2023 12:45 PM EST): Continue synthroid Old MA (myocardial infarction) 11/01/2013 Assessment & Plan (05/30/2022 [...] mRNA, LNP-s, No Pre serve, 2-Dose Series (Radiojar) 09/26/2022,11/18/2021,04/04/2021,02/28 COVID-19, MRNA-LNP, PF, 30 M CG/0.3 mL, 12 YRS AND ABOVE, IM [facility] 10/21/2023 Covid-19, Mrna, Lnp-s, Pf, [...] No 12/27/2024 Does the household have a [facility] [[email or web address]]lar source of income? (Household - for ages [...] on file documented as of this encounter Last Filed Vital Signs Vital Sign Reading Time Taken Comments Blood Pressure 98/60 01/02/2025 3:35 PM EST Pulse 83 01/02/2025 3:35 PM EST Temperature 36.4 C (97.6 F) 01/02/2025 3:35 PM ES T Respiratory Rate 16 01/02/2025 3:35 PM EST Oxygen Saturation 96% 01/02/2025 3:38 PM EST O2 2L-amb Inhaled Oxygen Concentration - - Weight 58.1 kg (128 lb) 01/02/2025 3:35 PM EST Height 165.1 cm (5' 5") 01/02/2025 3:35 PM EST Body Mass Index 21.3 01/02/2025 3:35 PM EST documented in this encounter Functional Status * Are you [...] documented in this encounter Progress Notes * Kellie Villavicencio PA-C - 01/02/2025 3:30 PM EST Images from the original note were not included. PULMONARY/THORACIC MEDICINE 01/02/2025 Pulmonary Follow Up Pulmonary Problem List: Very severe COPD (FEV1 22%) on PFT 2021 Severe bullous emphysema with radiologic evidence on CT 12/13/2024 History of right upper lung nodule stable on CT follow-up Chronic hypoxic respiratory failure on continue home oxygen at 2 L NC Tobacco use disorder currently less than half a pack a day Past history of influenza infection requiring mechanical ventilation Remote history of pneumothorax in her 20s needed talc pleurodesis OTHERS CHF Hypothyroidism HLD CAD Cerebellar hemangioma CRPS Gastroparesis IMPRESSIONS Severe COPD Severe bullous emphysema with radiologic evidence Hypoxic respiratory failure on 2 L NC oxygen Persistent dry cough Tobacco use disorder (according to 5 cigarettes per day) Stable scar/nodules on the left lobe per PET scan 2024 ASSESSMENT/PLAN: Counseling on maintenance of physical activity Continue Trelegy once a day Continue DuoNeb once a day Continue rescue inhaler as needed Counseling on nebulizer side effects Continue low-dose prednisone 5 mg Follow-up LDCCT in April 2025 Follow-up in 6 months or sooner if symptoms get worse or fail to improve HPI: Marisa Brown is a 59 year old female who was last evaluated in the office on 12/05/[address] Duong. During the visit patient described recent multiple episode of COPD exacerbation [facility] [place]. Here today for Pulmonary follow up. Patient is accompanied by her . Utilized a wheelchair. Patient said that at home she does not need a wheelchair but she get a lot of shortness of breath if she walks less than a block or a flight of stairs. Patient believes she is feeling better in compared to the last time she was here. Still having a dry cough. No recent exacerbations or hospitalization. PET scan results were reviewed with the patient, there was not increase of metabolic activity on left lobe lung nodule. Low-dose CT scan is scheduled for next April. Respiratory Symptoms: Cough: Dry cough Sputum: No Hemoptysis: No Wheeze: persistently Sinus Symptoms/Seasonal Allergies: No Medications: No Reflux: Yes Medications: Omeprazole 2 tb/d Triggers: any food Nocturnal symptoms: Orthopnea: no Paroxysmal nocturnal dyspnea: yes Sleeps in bed with 2 pillows. Swelling: No Dysphagia: No Pulmonary Therapies: Inhalers: Albuterol aerosol solution p.r.n. for cough, shortness of breath DuoNeb 4 times a day p.r.n. Trelegy daily Misc: Prednisone 5 mg p.o. daily maintenance dose Other: Oxygen: 2 L all day CPAP/BIPAP: No Respiratory Vaccines: Overdue Exacerbations/Hospitalizations: Denies recent hospitalization/exacerbations. No recent prednisone use. 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 All others negative other than those noted in the HPI. Constitutional: No change in weight, No weakness, No fatigue and No fevers, No sweats or chills. HEENT: Denies excessive dry eye, dry mouth or hoarseness. Denies difficulty swallowing. Cardiac: No chest pain. No edema, No palpitations and No syncope. No lightheadedness/dizziness. Resp: See HPI. GI:No abdominal pain, No change in bowel habits, No significant heartburn, No nausea, No vomiting, No diarrhea, No constipation, No blood in stools or black tarry stools. Heme: No abnormal bleeding, No bruising. Neuro: Normal balance, No headaches, No loss of balance. OBJECTIVE/PHYSICAL EXAM: Blood pressure 98/60, pulse 83, temperature 36.4 C (97.6 F), temperature source Tympanic, resp.rate 16, height 1.651 m (5' 5"), weight 58.1 kg (128 lb), last menstrual period 06/30/2011, SpO2 96%, not currently . General: No acute distress. A+Ox3. Eyes: Conjunctiva are pink and non-injected, sclera clear Oropharynx: No exudate, no erythema. Buccal mucosa and tongue normal Cardiac: Regular rate & rhythm. No murmurs. No JVD. Resp: Respirations even and mild labored. Scattered bibasilar wheezes, no rhonchi, or crackles auscultated. Decrease respiratory sounds. Pulses: Radial=2/4 bilaterally Extremities: No edema. No clubbing or cyanosis. Neurologic: No focal deficits. Skin: No rashes or lesions. DATA: Labs & Imaging Reviewed Below: Chest CT 12/13/2024 There are no enlarged mediastinal, hilar or axillary lymph nodes. There is stable severe pulmonary emphysema. There is stable biapical pleural/parenchymal scarring. There is a stable nodule in the left upper lobe measuring 0.7 cm (series 8, image 108). No new pulmonary nodules are noted. IMPRESSION Stable exam. Stable severe pulmonary emphysema and biapical pleural/parenchymal scarring. Stable small nodule in the left upper lobe measuring 0.7 cm. No new pulmonary nodules. PET-CT 12/08/2024 Chest: Stable biapical interstitial scarring with background level activity. Stable sub 6 mm nodulein the lateral left upper lobe without appreciable uptake. Impression No abnormal uptake within the chest. Continued follow-up via low-dose screening protocol would be recommended. LABS 08/02/2024 Latest Reference Range & Units 08/02/24 15:56 SODIUM 135 - 146 mmol/L 137 POTASSIUM 3.5 - 5.1 mmol/L 4.0 CHLORIDE 98 - 107 mmol/L 102 CO2 22 - 32 mmol/L 23 BUN 6 - 20 mg/dL 15 CREATININE 0.5 - 1.0 mg/dL 1.3 (H) EGFR >=60 mL/min 49 (L) ANION GAP 7 - 15 mmol/L 12 GLUCOSE 70 - 120 mg/dL 77 CALCIUM 8.4 - 10.2 mg/dL 9.0 (H): Data is abnormally high (L): Data is abnormally low Latest Reference Range & Units 08/02/24 15:56 WBC 4.00 - 10.80 K/uL 7.19 RBC 3.85 - 5.15 M/uL 4.07 HGB 12.0 - 15.3 g/dL 13.3 HCT 36.0 - 45.2 % 42.3 MCV 81.5 - 97.5 fL 103.9 MCH 27.0 - 34.0 pg 32.7 MCHC 32.0 - 36.0 g/dL 31.4 RDW 11.5 - 15.5 % 13.2 PLT 140 - 400 K/uL 247 MPV 6.6 - 11.1 fL 10.2 ANEMIA CBC Rpt Absolute Neutrophils 1.80 - 7.70 K/uL 3.51 Absolute Lymphocytes 1.00 - 4.80 K/ul 3.02 Absolute Monocytes 0.00 - 1.10 K/uL 0.42 Absolute Eosinophils 0.00 - 0.70 K/uL 0.16 Absolute Basophils 0.00 - 0.20 K/uL 0.05 Rpt: View report in Results Review for more information PFT's 02/27/2022 REVIEWED. Very severe COPD (FEV1 22% post BD) with significant response to bronchodilator therapy Review of patient's allergies indicates: Allergen Reactions Toradol [Ketorolac Tromethamine] Adhesive Tape Other reaction(s): BANDAIDS SKIN ABRASION Colchicine N/v/d Crestor [Rosuvastatin] Went into kidney failure Demerol Depression Ibuprofen Meperidine And Related depression Nsaids Prednisone Other Reaction(s): Patient Reports Contraindication in Kidney Failure/SEE NOTES Sulfa Antibiotics Rash Current Outpatient Medications Medication Sig Dispense Refill VALVED HOLDING CHAMBER JASPAL to be used with inhalers as instructed (Patient not taking: No sig reported) 1 Device 2 oxygen GAS 2 LPM via NC during hours of sleep (Patient taking differently: 2 L/min(Oxygen). 2 LPM via NC all day and during hours) 1 Each 0 Nebulizers (NEBULIZER COMPRESSOR) MISC Inhale via nebulizer. Along with supply . Use as directed. Dx code- J44.9 and J43.9 1 Each 0 aspirin enteric coated 81 MG TBEC Take 1 Tablet by mouth every morning. Acetaminophen 325 MG Oral Tablet (Tylenol) Take 1,000 mg by mouth every 8 hours as needed. Nebulizer Device Use with nebulized medications 1 Each 0 Full Kit Nebulizer Set Use with nebulizer 1 Each 0 Syringe 25G X 1-1/2" 3 ML Use for intramuscular B12 injection 1 Each 11 Albuterol Sulfate (2.5 MG/3ML) 0.083% Inhalation Nebulization Solution (Proventil) Inhale 1 Vial via nebulizer 4 times a day as needed for Wheezing. Use in place of rescue inhaler. 360 mL 2 Midodrine HCl 5 MG Oral Tablet (Proamatine) Take 1 Tablet by mouth in the morning and 1 Tablet at noon and 1 Tablet before bedtime. 270 Tablet 3 Empagliflozin 10 MG Oral Tablet (Jardiance) Take 1 Tablet by mouth in the morning. 90 Tablet 3 Entresto 24-26 MG Oral Tablet (sacubitril-valsartan 24-26 mg per tab) Take 1 Tablet by mouth in themorning and 1 Tablet before bedtime. 180 Tablet 3 Omeprazole 20 MG Oral Capsule Delayed Release (PriLOSEC) TAKE 1 CAPSULE IN THE MORNING AND 1 CAPSULE BEFORE BEDTIME 60 Capsule 5 Folic Acid 1 MG Oral Tablet Take 1 Tablet by mouth in the morning. In the morning.. 100 Tablet 3 Synthroid 75 MCG Oral Tablet TAKE 1 TABLET BY MOUTH DAILY (AT LEAST 30 MINUTES PRIOR TO BREAKFAST OR OTHER MEDS). 90 Tablet 3 Spironolactone 25 MG Oral Tablet (Aldactone) Take 0.5 Tablets by mouth in the morning. 45 Tablet 3 Repatha SureClick 140 MG/ML Subcutaneous Solution Auto-injector (evolocumab) Inject 140 mg (1 pen) under the skin every 14 days. Remove from refrigerator 30 minutes prior to injection. 6 mL 3 Pregabalin 75 MG Oral Capsule (Lyrica) Take 1 Capsule by mouth in the morning and 1 Capsule at noonand 1 Capsule before bedtime. 90 Capsule 5 Ipratropium-Albuterol 0.5-2.5 (3) MG/3ML Inhalation Solution (Duoneb) USE 1 AMPULE IN NEBULIZER 4 TIMES DAILY NEEDED FOR COUGH, SHORTNESS OF BREATH OR WHEEZING -USE IN PLACE OF RESCUE INHALER 360 mL 5 Metoprolol Succinate ER 50 MG Oral Tablet Extended Release 24 Hour (toPROL XL) TAKE 1 AND 1/2 TABLETS BY MOUTH EVERY MORNING 135 Tablet 0 Methocarbamol 500 MG Oral Tablet (Robamol) Take 1 Tablet by mouth in the morning and 1 Tablet at noon and 1 Tablet before bedtime. 90 Tablet 0 Albuterol Sulfate HFA 108 (90 Base) MCG/ACT Inhalation Aerosol Solution Inhale 2 Puffs by mouth every 4 hrs as needed for Cough, Shortness of Breath or Withdrawal symptoms. 54 g 1 PARoxetine HCl 40 MG Oral Tablet (pAXil) Take 1 Tablet by mouth in the morning. 30 Tablet 0 predniSONE 5 MG Oral Tablet (Deltasone) Take 1 Tablet by mouth in the morning. As directed. 30 Tablet 1 LORazepam 0.5 MG Oral Tablet (Ativan) Take 1 Tablet by mouth daily as needed for Anxiety. You will need to be seen in order to get subsequent refills. 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 Encouraged to take nice slow deep breaths and encouraged to use aero chamber. Test performed by Flex CUSTOM BOOKBINDER CPFT Cerebellar hemangioma ([facility]) 12/15/2012 MRI 2009 Chronic combined systolic and diastolic congestive heart failure ([facility]) 09/22/2019 COPD (chronic obstructive pulmonary disease) ([facility]) COPD exacerbation ([facility]) 09/06/19 In Check dial performed to assess inhaler technique:Name of inhaler Albuterol Pass: Yes at55L/min and Trelegy Ellipta Pass: Yes at 45L/min. Encouraged to take nice slow deep breaths and encouraged to use aero chamber. Test performed by Flex CUSTOM BOOKBINDER CPFT COPD with emphysema ([facility]) Degeneration of intervertebral disc Endometriosis Esophageal reflux 04/30/2009 mild Female infertility History of pneumothorax 07/30/2018 Hypokalemia Hypotension Irritable bowel syndrome Neurofibromatosis, type 2 ([facility]) Opioid Usage: appropriate, by Rheumatology 10/15/2012 Osteopenia 01/08/2022 repeat DEXA in 2023 Pain management contract signed 04/02/2021 DR Mónica Chamberlain Pericardial effusion PTSD (post-traumatic stress disorder) 10/30/2022 Recurrent spontaneous pneumothorax once in each side at age 24 S/P angioplasty with stent 02/12/2011 Sicca syndrome (HCC) 12/29/2014 Stage 3a chronic kidney disease ([facility]) 01/14/2022 Tobacco use disorder 12/02/2008 Family History Problem Relation Name Age of Onset Rheum arthritis Mother Heart attack Father x3 Stroke Father Diabetes Sister NIDDM Stroke Sister Diabetes Brother Hypertension Brother Diabetes Brother IDDM Arthritis Daughter Mental illness Son Other (Pneumothorax [Other]) Son Arthritis Son Heart Disorder Aunt (Unspecified) Colon cancer Aunt (Unspecified) Thyroid Disorder Grandmother (Maternal) Rheum arthritis Grandmother (Maternal) Lymphoma Grandfather (Maternal) Cancer Grandfather (Paternal) ? Heart Disorder Grandfather (Paternal) Social History Socioeconomic History Marital status: Spouse name: Lopez Number of children: 3 Occupational History Occupation: unemployed Tobacco Use Smoking status: Former Average packs/day: 1 pack/day for 45.0 years (45.0 ttl pk-yrs) Types: Cigarettes Start date: 1978 Smokeless tobacco: Never Tobacco comments: 12/05/24 currently smoking 5 cig/day. Vaping Use Vaping status: Never Used Substance and Sexual Activity Alcohol use: Yes Comment: Very rarely Drug use: Never Sexual activity: Not Currently Partners: Male control/protection: Surgical Other Topics Concern Blood Transfusions No Special Diet Yes Comment: avoids breads and meats Seat Belt Yes Social History Narrative 1 dog at home who doesn't sleep on patient's bed Not working, on disability Social Needs Financial Resource Strain: High Risk (12/27/2024) Financial Resource Strain Do you have any trouble paying for your medications, or do you think you might in the future? (Adult - for ages 18 years and over): Yes Food Insecurity: Food Insecurity Present (12/27/2024) Food Insecurity Worried About Running Out of Food in the Last Year: Never true Ran Out of Food in the Last Year: Never true Do you need food for this week? (Adult - for ages 18 years and over): Yes Transportation Needs: No Transportation Needs (12/27/2024) Transportation Needs Has lack of transportation kept you from medical appointments, meetings, work, or from getting things needed for daily living? Check all that apply. (Adult - for ages 18 years and over): No Social Connections: Socially Integrated (12/27/2024) Social Connections How often do you feel lonely or isolated from those around you? (Adult - for ages 18 years and over): Never Housing Stability: High Risk (12/27/2024) Housing Stability Do you currently live in a senior living or have no steady place to sleep at night? (Adult - for ages 18 years and over): Yes Are you homeless or worried that you might be in the future? (Adult - for ages 18 years and over): Yes IMPRESSIONS Severe COPD Severe bullous emphysema with radiologic evidence Hypoxic respiratory failure on 2 L NC oxygen Persistent dry cough Tobacco use disorder (according to 5 cigarettes per day) Stable scar/nodules on the left lobe per PET scan 2024 ASSESSMENT/PLAN: Counseling on maintenance of physical activity Continue Trelegy once a day Continue DuoNeb once a day Continue rescue inhaler as needed Counseling on nebulizer side effects Continue low-dose prednisone 5 mg Follow-up LDCCT in April 2025 Follow-up in 6 months or sooner if symptoms get worse or fail to improve DISPOSITION: Follow up six-month or sooner if symptoms worsen/fail to improve. All questions were answered to the patients satisfaction. Patient advised to report to ED with any and all emergencies. The patient agrees to the above plan and will call with additional questions or concerns. I spent a total of 30 minutes on the date of service in preparation, delivery, and documentation ofthe care provided to Marisa Brown excluding any time spent in the performance of separately billed services. Kellie Larson PA-C Pulmonary & Thoracic Medicine [facility] Cosigned by Sony Dunog MD at 01/02/2025 4:31 PM EST Associated attestation - Sony Duong MD - 01/02/2025 4:31 PM EST I have reviewed the advanced practitioner's documentation on the date of service referenced in note, and I agree with, and take responsibility for the plan of care. documented in this encounter Nursing Notes * Chantell Bardales LPN - 01/02/2025 3:38 PM EST Chief Complaint Patient presents with Follow Up Return. 4 week. COPD. PET scan. Would like results explained to her. Travel Screening Question 01/02/2025 3:24 PM EST - Filed by Patient Do you have any of the following new or worsening symptoms? None of these Have you recently been in contact with someone who was sick? No / Unsure Myc Visit Accident Related Question Question 01/02/2025 3:24 PM EST - Filed by Patient Is this visit related to an accident? (i.e work, motor vehicle) No Mmrc Cat Question 01/02/2025 3:34 PM EST - Filed by Chantell Bardales LPN When do you become breathless? (4) I am too breathless to leave the house or I am breathless when dressing How frequently do you cough? (5) - I cough all the time Do you have phlegm in your chest? (0) - I have no phlegm (mucus) in my chest Is your chest tight? (2) How breathless do you become when walking up a hill or steps? (5) - When I walk up a hill or one flight of stairs I am very breathless How limited are you doing activities at home? (5) - I am very limited doing activities at home How confident are you leaving home with your lung condition? (3) How soundly do you sleep? (0) - I sleep soundly How much energy do you have? (4) Total MMRC Score (range: 0 - 4) 4 Total CAT Score (range: 0 - 40) 24 Copd Rescue Question 01/02/2025 3:35 PM EST - Filed by Chantell Bardales LPN Have you used an antibiotic (e.g., azithromycin, doxycycline, augmentin) in the last 12 months because of your breathing or lung problem? Yes, two or more times Have you added or increased the dose of a steroid (e.g., prednisone, solumedrol) in the last 12 months because of your breathing or lung problem? Yes, once Did you go to the ED, or were you hospitalized in the last 12 months because of your breathing or lung problem? Yes Interm History/Respiratory Symptoms Cough: yes. Dry cough Hemoptysis: no Sinus Symptoms: no Hospitalizations: no ED Trips: no Triggers: perfumes, sauerkraut , grass, cold air. Heat. Nocturnal: sleeps with 2 pillows under head CPAP/BiPAP/O2: O2 2L at night DME Supplier: [facility] Flu Vaccine: 2023 Pneumovax: 2015 Prevnar: 2015 COVID 19: 2015. documented in this encounter Plan of Treatment Upcoming Encounters Date Type Department Care Team (Late st Contact Info) Description 01/19/2025 4:00 PM EST Office Visit Family Practice [facility] [address] [facility] [place] [address] Ludy Jacobs CRNP [address] [place] [address] 02/09/2025 1:00 PM EDT Home Visit [facility], [facility] [address] [facility] [place] [address] Jerel Sam PA-C [address] [facility] [place] [address] 02/13/2025 3:30 PM EDT Telemedicine Care at Home [address] [place] [address] Lulu Yee PA-C [address] [place] [address] 02/14/2025 3:00 PM EDT Laboratory Laboratory, [facility] [address] [place] [id number] [facility] [place] [address] 02/17/2025 5:30 PM EDT Pharmacy [facility], [address] [address] [facility], Pharmacist Cardiology [facility] [place] [address] 02/28/2025 3:30 PM EDT Telemedicine [facility]iology [facility], [address] [address] [place], Pharmacist Cardiology [facility] [address] [place] [address] 03/10/2025 9:40 AM EDT Home Visit [facility] [address] [place] [address] Nevin Choudhary, [facility] [employer] [address] [place] [address] 04/14/2025 3:00 PM EDT Home Visit [facility], [facility] [address] [facility] [place] [address] Chiquis Vazquez, RN [address] [facility] [place] [address] 05/15/2025 4:30 PM EDT Imaging Radiology [address] [facility] [place] [phone] 07/03/2025 3:00 PM EDT Office Visit Pulmonary Medicine, [facility] [address] [facility] [place] [address] Sony Duong MD [address] [place] [address] Scheduled Procedures Name Priority Associated Diagnoses Date/Ti [...] 2) 03/06/2021 01/09/2021 CKD PHOS USE SMARTSET 51582 03/29/2022 03/29/2021, 0 03/28/2021 Albumin/Creatinine Ratio 09/29/2023 09/29/2022, 05/0 03/2021 Mammogram 03/02/2024 03/02/2023, 02/21, 11/04/2016, Additional history exists COVID-19 Vaccine ( season) 2024 10/21/2023, 09/26/2022, 09/26/2022, Additional history exists Cervical Cancer Screening 12/04/2024 Pap Smear 12/04/2024 12/04/2021, 02/21, 03/03/2016, Additional history exists GFR 01/30/2025 08/02/2024, 06/0 04/2024, 04/05/2024, Additional history exists CKD HGB USE SMARTSET 80050 08/02/202508/02, 08/02/2024, 04/28/2024, Additional history exists TSH [...] classification (HCC) Hypotension, unspecified hypotension type Old MA (myocardial infarction) Old myocardial infarction Lung nodules Other nonspecific abnormal finding of lung field Other chronic pain Advanced care planning/counseling discussion- Primary Other specified counseling Generalized anxiety disorder Major depressive disorder, recurrent episode, moderate (HCC) Major depressive disorder, recurrent episode, moderate Cerebellar hemangioma (HCC) Hemangioma of intracranial structures Atherosclerotic heart disease of [place] coronary artery with other forms of angina pectoris (HCC) Coronary artery disease involving [place]ski coronary artery of [place] heart without angina pectoris Acquired hypothyroidism Unspecified hypothyroidism Dyslipidemia, goal LDL below 70 Other and unspecified hyperlipidemia HFrEF (heart failure with reduced ejection fraction) (HCC) Other specified hypotension Acute on chronic respiratory failure with hypoxia (HCC) COPD, group C, 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 ([facility]) Neuropathic pain Neuralgia, neuritis, and radiculitis, unspecified LYNDON (generalized anxiety disorder) Generalized anxiety disorder Tobacco use disorder Vomiting and diarrhea Vomiting alone Sicca syndrome (HCC) Sicca syndrome Lung nodules- Primary Other nonspecific abnormal finding of lung field Chronic hypoxemic respiratory failure (HCC) Chronic respiratory failure Centrilobular emphysema (HCC) Other emphysema COPD, group D, 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 (HCC) Chronic combined systolic and diastolic congestive heart failure (HCC) Chronic combined systolic and diastolic heart failure Tobacco use Tobacco use disorder History of pneumothorax Personal history of other diseases of respiratory system documented in this encounter Advance Directives * [...] Agents on File Name Relationship Healthcare Agent [facility] hugo Communication Lopez Brown Spouse First Alternate Health Care Agent [place] Adult Child Health Care Agent Care Teams Jigger Operator Relationship Specialty Start Date End Date Ludy Jacobs CRNP [address] [place] [address] PCP - General Nurse Practitioner 04/20/24 documented as of this encounter
--- OUTSIDE RECORDS SUMMARY | 2025-01-15 19:44 | External Medical Summary | Summary of Care ---
Author Name Unknown Organization [facility] Address [address] [place] [address] Phone [phone] Care Team Providers Care Teaching Specialists Name Role Phone Ludy Jacobs Primary Care Provider Reason for Visit * Reason Onset Date Comments Medication Refill 12/29/2024 Encounter Details Date Type Department Care Team (Late st Contact Info) Description 12/29/2024 Refill Psychiatry Angel Schaefer [address] [place] [address] Codi Reardon CRNP [address] [place] [address] Allergies Active Allergy Reactions Criticality Noted Date [...] as of this encounter (statuses as of 12/30/2024) Medications VALVED HOLDING CHAMBER DEVIIndications:C OPD with emphysema ([facility]) to be used with [...] Documents, Reported on 12/27/2024 Nebulizers (NEBULIZER COMPRESSOR) [facility] Inhale via nebulizer. Along [...] group C, 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 ([facility]),Chronic hypoxemic respiratory failure ([facility]) Use with nebulized medications 1 Each 07/24/20 22 Active Full Kit Nebulizer SetIndications:CO PD, group C, by GOLD 2017 classification ([facility]),Chronic hypoxemic respiratory failure ([facility]) Use with nebulizer 1 Each 07/24/20 22 Active Syringe 25G X 1-1/2" 3 ML Use for intramuscular B12 injection 1 Each 10/02/20 22 Active Albuterol Sulfate (2.5 MG/3ML) 0.083% Inhalation Nebulization Solution (Proventil)Indica tions:COPD, group D, by GOLD 2017 classification ([facility]) Inhale 1 Vial via [...] Extended Release 24 Hour (toPROL XL)Indications:Ol d IL (myocardial infarction) TAKE 1 AND 1/2 [...] group C, by GOLD 2017 classification ([facility]) Inhale 2 Puffs by mouth every 4 hrs as needed for Cough, Shortness of Breath or Withdrawal symptoms. 54 g 1 12/11/19 25 Active PARoxetine HCl 40 MG Oral Tablet (pAXil) Take 1 Tablet by mouth in the morning. 30 Tablet 12/15/19 25 Active LORazepam 0.5 MG Oral Tablet (Ativan) Take 1 Tablet by mouth daily as needed for Anxiety. You will need to be seen in order to get subsequent refills. 30 Tablet 12/30/19 25 Active LORazepam 0.5 MG Oral Tablet (Ativan) Take 1 Tablet by mouth daily as needed for Anxiety. Do not start before August 12, 2024. 30 Tablet 2 08/12/20 24 025 Discontin ued(Refil l) Hospital, Clinic, or Other Facility Administered Medication Ordered Dose Route Frequency Start Date End Date Status Albuterol Sulfate (Proventil) (2.5 MG/3ML) 0.083% inhalation solution 2.5 mgIndications:COPD, group D, by GOLD 2017 classification ([facility]) 2.5 mg NEBULIZER ONCE PRN 04/28/2024 04/28/2025 Acti ve documented as of this encounter (statuses as of 12/30/2024) Active Problems Problem Noted Date Diagnosed Date [...] noted above Atherosclerotic heart diseas e of [place] coronary artery with other forms of angina [...] (05/30/2022 4:32 PM EDT): Appointment scheduled with [facility] pain clinic [place] 07/02. Statin intolerance 01/24/2022 Osteopenia 01/08/2022 LYNDON [...] use aero chamber. 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 Took high dose replacement. Due to repeat. Coronary artery disease invo lving [place] coronary artery of [place] heart without angina pectoris 11/12/2015 Assessment & [...] as of this encounter (statuses as of 12/30/2024) Resolved Problems Problem Noted Date Diagnosed Date [...] use aero chamber. Test performed by [employer] PARK MAINTENANCE TECHNICIAN CPFT Assessment & Plan (05/30/2022 4:27 PM [...] moderate 04/07/2012 10/05/2012 Overview (04/07/2012): PFT 03/2008 [facility] COPD, SEVERE 04/07/2012 05/04/2019 Overview: PER COPD PROTOCOL #24. PFT 03/2008 [facility] LAST PFT -06/07/12 Gastroesophageal reflux dise ase with esophagitis 04/30/2009 01/14/2022 Overview (05/15/2009): mild ADVANCE DIRECTIVE INFORMATION 12/02/2008 09/26/2024 Overview (12/02/2008): No, Advance Directive brochure offered , patient declined. COPD with emphysema 10/05/20 12 documented as of this encounter (statuses as of 12/30/2024) Immunizations Name Administration Dates Next Due COVID-19 mRNA, LNP-s, No Pre serve, 2-Dose Series ([employer]) 09/26/2022,11/18/2021,04/04/2021,02/28 COVID-19, MRNA-LNP, PF, 30 M CG/0.3 mL, 12 YRS AND ABOVE, IM ([facility]) 10/21/2023 Covid-19, Mrna, Lnp-s, Pf, B ivalent, 30 Mcg, IM, 12 yrs and above ([employer]) 09/26/2022 HEPATITIS B VACCINE, RECOMB, 20 MCG/ML, [...] No 12/27/2024 Does the household have a unm cancer centerlar source of income? (Household - for [...] encounter Miscellaneous Notes * Telephone Encounter - Codi Reardon CRNP - 12/30/2024 3:03 PM EST Signed Prescriptions: Disp Refills LORazepam 0.5 MG Oral Tablet (Ativan) 30 Tab*0 Sig: Take 1 Tablet by mouth daily as needed for Anxiety. You will need to be seen in order to get subsequent refills. Authorizing Provider: CODI REARDON * Telephone Encounter - Minnie Salas LPN - 12/30/2024 1:38 PM EST Pending Prescriptions: Disp Refills LORazepam 0.5 MG Oral Tablet (Ativan) 30 Tab*2 Sig: Take 1 Tablet by mouth daily as needed for Anxiety. * Telephone Encounter - Minnie Salas LPN - 12/30/2024 1:35 PM EST Refill request from patient (Payal) for Ativan. Medication last filled on 08/12/2024 with 2 refills. Patient last seen on 05/13/2024 with return appointment scheduled for needs appt. Patient had 0 cancelled appointments and 1 NO SHOW appointments. documented in this encounter Plan of Treatment Upcoming Encounters Date Type Department Care Team (Late st Contact Info) Description 01/02/2025 3:30 PM EST Office Visit Pulmonary Medicine, [facility] [address] [facility] [place] [address] Sony Duong MD [address] [facility] [place] [address] 01/19/2025 4:00 PM EST Office Visit Family Practice [facility] [address] [facility] [place] [address] Ludy Jacobs CRNP 132 [facility] [place] [address] 02/09/2025 1:00 PM EDT [facility] [address] [place] [address] Jerel Sam PA-C [address] [place] [address] 02/13/2025 3:30 PM EDT Telemedicine Care at Home [address] [place] [address] Lulu Yee PA-C [address] [place] [address] 02/14/2025 3:00 PM EDT Laboratory Laboratory, [facility] [address] [place] [phone] [facility] [address] [place] [address] 02/17/2025 5:30 PM EDT Pharmacy [facility] [place] [address] [place] [address] [place], Pharmacist Cardiology H[facility] [address] [place] [address] 02/28/2025 3:30 PM EDT Telemedicine [facility] [place] [address] [place] [address] [place], Pharmacist Cardiology [facility] [address] [place] [address] 03/10/2025 9:40 AM EDT Home Visit [facility] [address] [place] [address] Nevin Choudhary, [facility] [address] [place] [address] 04/14/2025 3:00 PM EDT [facility] [address] [place] [address] Chiquis Vazquez, RN [address] [place] [address] 05/15/2025 4:30 PM EDT Imaging Radiology [address] [place] [phone] Scheduled Procedures Name Priority Associated Diagnoses Date/Ti [...] 2) 03/06/2021 01/09/2021 CKD PHOS USE SMARTSET 48892 03/29/2022 03/29/2021, 0 03/28/2021 Albumin/Creatinine Ratio 09/29/2023 09/29/2022, 05/0 03/2021 Mammogram 03/02/2024 03/02/2023, 02/21, 11/04/2016, Additional history exists COVID-19 Vaccine ( season) 2024 10/21/2023, 09/26/2022, 09/26/2022, Additional history exists Cervical Cancer Screening 12/04/2024 Pap Smear 12/04/2024 12/04/2021, 02/21, 03/03/2016, Additional history exists GFR 01/30/2025 08/02/2024, 06/0 04/2024, 04/05/2024, Additional history exists CKD HGB USE SMARTSET 37790 08/02/202508/02, 08/02/2024, 04/28/2024, Additional history exists TSH [...] Agents on File Name Relationship Healthcare Agent [facility] p Communication Lopez Brown Spouse First Alternate Health Care Agent [place] Adult Child Health Care Agent Care Teams Teaching Specialists Relationship Specialty Start Date End Date Ludy Jacobs CRNP [address] [place] [address] PCP - General Nurse Practitioner 04/20/24 documented as of this encounter
--- OUTSIDE RECORDS SUMMARY | 2025-01-15 19:45 | External Medical Summary | Summary of Care ---
Author Name Unknown Organization [facility] Address [address] [facility] [place] [address] Phone [phone] Care Team Providers Care Supervisor Pyrotechnic Loading Name Role Phone Ludy Jacobs Primary Care Provider Encounter Details Date Type Department Care Team (Late st Contact Info) Description 12/13/2024 Orders Only Family Practice [facility] [address] [place] [address] Ludy Jacobs CRNP [address] [place] [address] Allergies Active Allergy Reactions Criticality Noted Date [...] as of this encounter (statuses as of 12/13/2024) Medications VALVED HOLDING CHAMBER DEVIIndications:CO PD with emphysema ([facility]) to [...] hours, Informant: Transferring Facility Documents, Reported on 12/05/2024 Nebulizers (NEBULIZER COMPRESSOR) MISC Inhale via nebulizer. Along with supply . Use as directed. Dx code- J44.9 and J43.9 1 Each 10/05/20 Active aspirin enteric coated 81 MG TBEC [...] Each 07/24/20 22 Active Full Kit Nebulizer SetIndications:MANAGER SCIENCE D, group C, by GOLD 2017 classification ([facility]),Chronic hypoxemic respiratory failure ([facility]) Use with nebulizer 1 Each 07/24/20 [...] bedtime. 180 Tablet 3 12/15/19 24 Active Ondansetron HCl 4 MG Oral Tablet [...] Tablet Extended Release 24 Hour (toPROL XL)Indications:Old NM (myocardial infarction) TAKE 1 AND 1/2 TABLETS BY MOUTH EVERY MORNING 135 Tablet 11/21/20 24 Active predniSONE 5 MG Oral Tablet (Deltasone)Indicat ions:COPD, frequent exacerbations (HCC) As directed 30 Tablet 12/02/19 25 Active Methocarbamol 500 MG Oral Tablet (Robamol)Indicatio [...] symptoms. 54 g 1 12/11/19 25 Active Hospital, Clinic, or Other Facility Administered Medication Ordered Dose Route Frequency Start Date End Date Status Albuterol Sulfate (Proventil) (2.5 MG/3ML) 0.083% inhalation solution 2.5 mgIndications:COPD, group D, by GOLD 2017 classification ([facility]) 2.5 mg NEBULIZER ONCE PRN 04/28/2024 04/28/2025 Acti ve documented as of this encounter (statuses as of 12/13/2024) Active Problems Problem Noted Date Diagnosed Date [...] noted above Atherosclerotic heart diseas e of [place] coronary artery with other forms of angina [...] (05/30/2022 4:32 PM EDT): Appointment scheduled with [facility] pain clinic [place] 07/02. Statin intolerance 01/24/2022 Osteopenia 01/08/2022 LYNDON [...] use aero chamber. 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 Took high dose replacement. Due to repeat. Coronary artery disease invo lving [place] coronary artery of [place] heart without angina pectoris 11/12/2015 Assessment & Plan (01/22/2023 12:36 PM EST): Stable no angina -continue ASA, metoprolol xl, repatha. Can't tolerate delgado d/t low bp Dyslipidemia, goal LDL below 70 11/12/2015 Sicca syndrome 12/29/2014 Acquired hypothyroidism 12/29/2014 Assessment & Plan (01/22/2023 12:45 PM EST): Continue synthroid Old NM (myocardial infarction) 11/01/2013 Assessment & Plan (05/30/2022 [...] as of this encounter (statuses as of 12/13/2024) Resolved Problems Problem Noted Date Diagnosed Date [...] use aero chamber. Test performed by Flex GUIDE CRUISE CPFT Assessment & Plan (05/30/2022 4:27 PM [...] use aero chamber. Test performed by Flex GUIDE CRUISE CPFT COPD, group B, by GOLD 2017 [...] 10/05/2012 Overview (04/07/2012): PFT 03/2008 [facility] COPD, SEVERE 04/07/2012 05/04/2019 Overview: PER COPD PROTOCOL #24. PFT 03/2008 [facility] LAST PFT -06/07/12 Gastroesophageal reflux dise ase with esophagitis 04/30/2009 01/14/2022 Overview (05/15/2009): mild ADVANCE DIRECTIVE INFORMATION 12/02/2008 09/26/2024 Overview (12/02/2008): No, Advance Directive brochure offered , patient declined. COPD with emphysema 10/05/20 12 documented as of this encounter (statuses as of 12/13/2024) Immunizations Name Administration Dates Next Due COVID-19 mRNA, LNP-s, No Pre serve, 2-Dose Series ([employer]) 09/26/2022,11/18/2021,04/04/2021,02/28 COVID-19, MRNA-LNP, PF, 30 M CG/0.3 mL, 12 YRS AND ABOVE, IM ([employer] [facility]) 10/21/2023 Covid-19, Mrna, Lnp-s, Pf, B ivalent, 30 Mcg, IM, 12 yrs and above ([employer]) 09/26/2022 HEPATITIS B VACCINE, RECOMB, 20 MCG/ML, [...] of Assessment Author Yes 03/28/2021 10:00 AM YASMINET Daija Li RN * Do you have difficulty dressing or bathing? (5 years old or older) Answer Date of Assessment Author Yes 03/28/2021 5:37 AM EDT Valentino Child, BREE * Because of a physical, mental, or emotional condition, do you have difficulty doing errands alone such as visiting a doctors office or shopping? (15 years old or older) Answer Date of Assessment Author Yes 03/28/2021 5:37 AM EDT Valentino Child, RN documented as of this encounter Mental Status * Because of a physical, mental, or emotional condition, do you have serious difficulty concentrating, remembering, or making decisions? (5 years old or older) Answer Entry Date Author No 03/28/2021 5:37 AM EDT Valentino Child RN documented in this encounter Plan of Treatment Upcoming Encounters Date Type Department Care Team (Late st Contact Info) Description 12/27/2024 2:00 PM EST Home Visit [facility] [address] [place] [address] Chiquis Vazquez RN [address] [place] [address] 01/02/2025 3:30 PM EST Office Visit Pulmonary Medicine, [facility] [address] [place] [address] Sony Duong MD [address] [facility] [place] [address] 01/19/2025 4:00 PM EST Office Visit Family Practice [facility] [address] [place] [address] Ludy Jacobs CRNP [address] [place] [address] 02/09/2025 1:00 PM EDT Home Visit [facility] [address] [place] [address] Jerel Sam PA-C [address] [place] [address] 02/13/2025 3:30 PM EDT Telemedicine Care at Home [address] [place] [address] Lulu Yee PA-C [address] [place] [address] 02/14/2025 3:00 PM EDT Laboratory Laboratory, [facility] [address] [place] [address] [facility] [address] [place] [address] 02/17/2025 5:30 PM EDT Pharmacy [facility] [place] [address] [place] [address] [facility], Pharmacist Cardiology [facility] [address] [place] [address] 02/28/2025 3:30 PM EDT Telemedicine [facility] [place] [address] [place] [address] [place], Pharmacist Cardiology [facility] [address] [place] [address] 05/15/2025 4:30 PM EDT Imaging Radiology [address] [place] [address] Scheduled Procedures Name Priority Associated Diagnoses [...] 2) 03/06/2021 01/09/2021 CKD PHOS USE SMARTSET 09497 03/29/2022 03/29/2021, 0 03/28/2021 Albumin/Creatinine Ratio 09/29/2023 09/29/2022, 05/0 03/2021 Mammogram 03/02/2024 03/02/2023, 02/21, 11/04/2016, Additional history exists COVID-19 Vaccine ( season) 2024 10/21/2023, 09/26/2022, 09/26/2022, Additional history exists Cervical Cancer Screening 12/04/2024 Pap Smear 12/04/2024 12/04/2021, 02/21, 03/03/2016, Additional history exists GFR 01/30/2025 08/02/2024, 06/0 04/2024, 04/05/2024, Additional history exists CKD HGB USE SMARTSET 40748 08/02/202508/02, 08/02/2024, 04/28/2024, Additional history exists TSH 08/02/2025 08/02/2024, 06/0 04/2024, 03/06/2023, Additional history exists Depression Monitoring 09/27/2025 09/27/2024 O2 ASSESSMENT COMPLETED IN PAST YEAR FOR COPD 12/05/2025 12/05/2024 Colonoscopy 04/30/2026 04/30/2023, 06/0 06/2023, 11/28/2019, Additional [...] Not on filedocumented as of this encounter Procedures Procedure Name Priority Date/Time Associated Diagnosis Comments CT CHEST WO CONTRAST Routine 10/13/2024 documented in this encounter Results * CT CHEST WO CONTRAST (10/13/2024) Anatomical Region Laterality Modality Chest, Body, Cardio Other 10/13/2024 us Micky Owens MD RAD CT Final Result documented in this encounter Advance Directives * [...] Agents on File Name Relationship Healthcare Agent [facility] Communication Lopez Brown Spouse First Alternate Health Care Agent [place] Adult Child Health Care Agent Care Teams Supervisor Pyrotechnic Loading Relationship Specialty Start Date End Date Ludy Jacobs CRNP [address] [place] [address] PCP - General Nurse Practitioner 04/20/24 documented as of this encounter
--- OUTSIDE RECORDS SUMMARY | 2025-01-15 19:45 | External Medical Summary | Summary of Care ---
Author Name Unknown Organization [facility] Address [address] [facility] [place] [address] Phone [phone] Care Team Providers Care Fuel Attendant Name Role Phone Ludy Jacobs Zeina LY Primary Care Provider Reason for Visit * Reason Onset Date Comments Test Results 12/13/2024 PET scan Encounter Details Date Type Department Care Team (Late st Contact Info) Description 12/13/2024 Telephone Pulmonary Medicine, [facility] [address] [facility] [place] [address] Sony Duong MD [address] [place] [id number] Test Results (PET scan) Allergies Active Allergy Reactions Criticality Noted Date [...] VALVED HOLDING CHAMBER DEVIIndications:CO PD with emphysema ([facility]) to be used with inhalers as [...] COPD, group C, by GOLD 2017 classification ([facility]),Chronic hypoxemic respiratory failure ([facility]) Use with nebulized medications 1 Each 07/24/20 22 Active Full Kit Nebulizer SetIndications:CREDIT SPECIALIST D, group C, by GOLD 2017 classification ([facility]),Chronic hypoxemic respiratory failure ([facility]) Use with nebulizer 1 Each 07/24/20 22 Active Syringe 25G X 1-1/2" 3 ML Use for intramuscular B12 injection 1 Each 11 10/02/20 22 Active Albuterol Sulfate (2.5 MG/3ML) 0.083% Inhalation Nebulization Solution (Proventil)Indicat ions:COPD, group D, by GOLD 2017 classification ([facility]) Inhale 1 Vial via nebulizer [...] s:COPD, group C, by GOLD 2017 classification ([facility]) Inhale 2 Puffs by mouth every 4 hrs as needed for Cough, Shortness of Breath or Withdrawal symptoms. 54 g 1 12/11/19 25 Active Hospital, Clinic, or Other Facility Administered Medication Ordered Dose Route Frequency Start Date End Date Status Albuterol Sulfate (Proventil) (2.5 MG/3ML) 0.083% inhalation solution 2.5 mgIndications:COPD, group D, by GOLD 2017 classification ([facility]) 2.5 mg NEBULIZER ONCE PRN [...] noted above Atherosclerotic heart diseas e of [place] coronary artery with other forms of angina [...] EDT): Appointment scheduled with [facility] pain clinic [place] 07/02. Statin intolerance 01/24/2022 Osteopenia 01/08/2022 LYNDON [...] use aero chamber. Test performed by Flex INSURANCE COUNSELOR CPFT Circadian rhythm sleep disorder 09/17/2018 Nocturnal hypoxemia due to emphysema 07/30/2018 Adjustment disorder with mixed anxiety and depre ssed mood 07/04/2018 TERMINATED MEDICATION USAGE AGREEMENT 06/03/2018 Dupuytren's contracture of left hand 02/01/2018 Mixed incontinence urge and stress (male)(female ) 03/20/2017 Vitamin D deficiency 03/03/2016 Overview (03/03/2016): March 2015 = 13. Took high dose replacement. Due to repeat. Coronary artery disease invo lving ramona coronary artery of [place]ona heart without angina pectoris 11/12/2015 Assessment & Plan (01/22/2023 12:36 PM EST): Stable no angina -continue ASA, metoprolol xl, repatha. Can't tolerate delgado d/t low bp Dyslipidemia, goal LDL below 70 11/12/2015 Sicca syndrome 12/29/2014 Acquired hypothyroidism 12/29/2014 Assessment & Plan (01/22/2023 12:45 PM EST): Continue synthroid Old [place] (myocardial infarction) 11/01/2013 Assessment & Plan (05/30/2022 [...] use aero chamber. Test performed by Flex INSURANCE COUNSELOR CPFT Assessment & Plan (05/30/2022 4:27 PM [...] use aero chamber. Test performed by Flex INSURANCE COUNSELOR CPFT COPD, group B, by GOLD 2017 [...] moderate 04/07/2012 10/05/2012 Overview (04/07/2012): PFT 03/2008 [facility] COPD, SEVERE 04/07/2012 05/04/2019 Overview: PER COPD PROTOCOL #24. PFT 03/2008 [facility] LAST PFT -06/07/12 Gastroesophageal reflux dise ase with esophagitis 04/30/2009 01/14/2022 Overview (05/15/2009): mild ADVANCE DIRECTIVE INFORMATION 12/02/2008 09/26/2024 Overview (12/02/2008): No, Advance Directive brochure offered , patient declined. COPD with emphysema 10/05/20 12 documented as of this encounter (statuses as of 12/13/2024) Immunizations Name Administration Dates Next Due COVID-19 mRNA, LNP-s, No Pre serve, 2-Dose Series ([employer]) 09/26/2022,11/18/2021,04/04/2021,02/28 COVID-19, MRNA-LNP, PF, 30 M CG/0.3 mL, 12 YRS AND ABOVE, IM ([employer]) 10/21/2023 Covid-19, Mrna, Lnp-s, Pf, B ivalent, 30 Mcg, IM, 12 yrs and above ([employer]) 09/26/2022 HEPATITIS B VACCINE, RECOMB, 20 MCG/ML, [...] No 09/27/2024 Does the household have a [facility] source of income? (Household - for ages [...] Author No 03/28/2021 5:37 AM YASMINET Valentino Child, BREE * Do you have serious difficulty walking or climbing stairs? (5 years old or older) Answer Date of Assessment Author Yes 03/28/2021 10:00 AM EDT Perrige, Daija A, RN * Do you have difficulty dressing [...] encounter Miscellaneous Notes * Telephone Encounter - Nicole Fair LPN - 12/13/2024 11:23 AM EST Left message with spouse to have patient return call when she is available. * Telephone Encounter - Nicole Fair LPN - 12/13/2024 11:23 AM EST ----- Message from Sony Duong MD sent at 12/11/2024 10:49 AM EST ----- PET CT SKULL BASE TO MID-THIGH FDG - 12/08/2024 HISTORY: Spiculated lung nodule, COPD PET SCAN: Chest: Stable biapical interstitial scarring with background level activity. Stable sub 6 mm nodulein the lateral left upper lobe without appreciable uptake. CT SCAN: Chest: Severe bullous emphysematous changes are present with multiple areas of interstitial scarring, most prominent in the lung apices. Small left upper lobe nodule is stable from previous examinations. No suspicious pulmonary lesions are identified within the limits of the study. Continued follow-up via low-dose screening protocol would be recommended. Please notify patient that PET scan was NEGATIVE for uptake in the left upper lobe nodules/scar (that had been noted at [facility]). Likely scarring from prior pneumonia episodes. LDCT screening based protocol should be continued. documented in this encounter Plan of Treatment Upcoming Encounters Date Type Department Care Team (Late st Contact Info) Description 12/27/2024 2:00 PM EST [facility], [facility] [address] [place] [address] Chiquis Vazquez RN [address] [place] [address] 01/02/2025 3:30 PM EST Office Visit Pulmonary Medicine, [facility] [address] [place] [address] Sony Duong MD [address] [place] [place] [address] 01/19/2025 4:00 PM EST Office Visit Family Practice [facility] [address] [place] [address] Ludy Jacobs CRNP [address] [place] [address] 02/09/2025 1:00 PM EDT [facility] Visit [facility], [facility] [address] [place] [address] Jerel Sam PA-C [address] [facility] [place] [address] 02/13/2025 3:30 PM EDT Telemedicine Care at Home [address] [place], [place] [phone] Lulu Yee PA-C [address] [place], [place] [phone] 02/14/2025 3:00 PM EDT Laboratory Laboratory, [facility] [place] [phone] Daniel Zaman [facility] [address] [facility] [place] [address] 02/17/2025 5:30 PM EDT Pharmacy [facility], [place] [address] [place] [address] [place], Pharmacist Cardiology [facility] [address] [place] [address] 02/28/2025 3:30 PM EDT Telemedicine Cardiology [facility], [place] [address] [place] [address] [place], Pharmacist Cardiology [facility] [address] [place] [address] 05/15/2025 4:30 PM EDT Imaging Radiology [address] [facility] [place] [phone] Scheduled Procedures Name Priority Associated Diagnoses Date/Ti [...] 2) 03/06/2021 01/09/2021 CKD PHOS USE SMARTSET 71133 03/29/2022 03/29/2021, 0 03/28/2021 Albumin/Creatinine Ratio 09/29/2023 09/29/2022, 05/0 03/2021 Mammogram 03/02/2024 03/02/2023, 02/21, 11/04/2016, Additional history exists COVID-19 Vaccine ( season) 2024 10/21/2023, 09/26/2022, 09/26/2022, Additional history exists Cervical Cancer Screening 12/04/2024 Pap Smear 12/04/2024 12/04/2021, 02/21, 03/03/2016, Additional history exists GFR 01/30/2025 08/02/2024, 060 04/2024, 04/05/2024, Additional history exists CKD HGB USE SMARTSET 40548 08/02/202508/02, 08/02/2024, 04/28/2024, Additional history exists TSH 08/02/2025 08/02/2024, 060 04/2024, 03/06/2023, Additional history exists Depression Monitoring 09/27/2025 09/27/2024 O2 ASSESSMENT COMPLETED IN PAST YEAR FOR COPD 12/05/2025 12/05/2024 Colonoscopy 04/30/2026 04/30/2023, 060 06/2023, 11/28/2019, Additional [...] Agent [facility] p Communication Lopez Brown Spouse First [facility] Health Care Agent [place] Adult Child Health Care Agent Care Teams Fuel Attendant Relationship Specialty Start Date End Date Ludy Jacobs CRNP [address] [place] [address] PCP - General Nurse Practitioner 04/20/24 documented as of this encounter
--- OUTSIDE RECORDS SUMMARY | 2025-01-15 19:45 | External Medical Summary | Summary of Care ---
Author Name Unknown Organization [facility] Address [address] [facility] [place] [address] Phone [phone] Care Team Providers Care Sports Teacher Name Role Phone Arlene Ludysa Zeina LY Primary Care Provider Encounter Details Date Type Department Care Team (Late st Contact Info) Description 12/15/2024 Orders Only PATIENT PORTAL DO NOT DELETE THIS DEPT USED BY [place] [id number] Allergies Active Allergy Reactions Criticality Noted Date [...] as of this encounter (statuses as of 12/15/2024) Medications VALVED HOLDING CHAMBER DEVIIndications:CO PD with [...] Use with nebulized medications 1 Each 07/24/20 Active Full Kit Nebulizer SetIndications:DBA D, group C, by GOLD 2017 classification [...] as of this encounter (statuses as of 12/15/2024) Active Problems Problem Noted Date Diagnosed Date [...] noted above Atherosclerotic heart diseas e of [place] coronary artery with other forms of angina [...] scheduled with [facility] pain clinic [place] 07/02. Statin intolerance 01/24/2022 Osteopenia 01/08/2022 LYNDON [...] use aero chamber. 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 Took high dose replacement. Due to repeat. Coronary artery disease invo lving [place] coronary artery of [place] heart without angina pectoris 11/12/2015 Assessment & [...] as of this encounter (statuses as of 12/15/2024) Resolved Problems Problem Noted Date Diagnosed Date [...] use aero chamber. Test performed by Flex RADIO NEWS ANCHOR CPFT Assessment & Plan (05/30/2022 4:27 PM [...] use aero chamber. Test performed by Flex RADIO NEWS ANCHOR CPFT COPD, group B, by GOLD 2017 [...] 10/05/2012 Overview (04/07/2012): PFT 03/2008 [facility] COPD, SEVERE 04/07/2012 05/04/2019 Overview: PER COPD PROTOCOL #24. PFT 03/2008 [facility] LAST PFT -06/07/12 Gastroesophageal reflux dise ase with esophagitis 04/30/2009 01/14/2022 Overview (05/15/2009): mild ADVANCE DIRECTIVE INFORMATION 12/02/2008 09/26/2024 Overview (12/02/2008): No, Advance Directive brochure offered , patient declined. COPD with emphysema 10/05/20 12 documented as of this encounter (statuses as of 12/15/2024) Immunizations Name Administration Dates Next Due COVID-19 mRNA, LNP-s, No Pre serve, 2-Dose Series ([employer]) 09/26/2022,11/18/2021,04/04/2021,02/28 COVID-19, MRNA-LNP, PF, 30 M CG/0.3 mL, 12 YRS AND ABOVE, IM ([employer]) 10/21/2023 Covid-19, Mrna, Lnp-s, Pf, B ivalent, 30 Mcg, IM, 12 yrs and above ([employer]) 09/26/2022 HEPATITIS B VACCINE, RECOMB, 20 MCG/ML, [...] No 09/27/2024 Does the household have a [facility] source of income? (Household - for [...] PM EST [facility], [facility] [address] [place] [address] Chiquis Vazquez RN [address] [place] [address] 01/02/2025 3:30 PM EST Office Visit Pulmonary Medicine, [facility] [address] [place] [address] Sony Duong MD [address] [facility] [address] 01/19/2025 4:00 PM EST Office Visit Family Practice [facility] [address] [place] [address] Ludy Jacobs CRNP [address] [place] [address] 02/09/2025 1:00 PM EDT [facility] Visit [facility] [place], [facility] [address] [place] [address] Jerel Sam PA-C [address] [place] [address] 02/13/2025 3:30 PM EDT [facility] [address] [facility] [phone] Lulu Yee PA-C [address] [place] [address] 02/14/2025 3:00 PM EDT Laboratory Laboratory, [facility] [address] [place] [phone] [facility] [address] [place] [address] 02/17/2025 5:30 PM EDT Pharmacy [facility] [place] [address] [place] [address] [facility], Pharmacist Cardiology [facility] [address] [place] [address] 02/28/2025 3:30 PM EDT Telemedicine Cardiology [facility], [place] [address] [place] [address] [facility], Pharmacist Cardiology [facility] [address] [place] [address] 05/15/2025 4:30 PM EDT Imaging Radiology [facility] [facility] [address] [place] [address] Scheduled Procedures Name Priority Associated [...] 2) 03/06/2021 01/09/2021 CKD PHOS USE SMARTSET 81245 03/29/2022 03/29/2021, 0 03/28/2021 Albumin/Creatinine Ratio 09/29/2023 09/29/2022, 05/0 03/2021 Mammogram 03/02/2024 03/02/2023, 02/21, 11/04/2016, Additional history exists COVID-19 Vaccine ( season) 2024 10/21/2023, 09/26/2022, 09/26/2022, Additional history exists Cervical Cancer Screening 12/04/2024 Pap Smear 12/04/2024 12/04/2021, 02/21, 03/03/2016, Additional history exists GFR 01/30/2025 08/02/2024, 06/0 04/2024, 04/05/2024, Additional history exists CKD HGB USE SMARTSET 90872 08/02/202508/02, 08/02/2024, 04/28/2024, Additional history exists TSH [...] File Name Relationship Healthcare Agent [facility] p Communication Lopez Brown Spouse First [facility] Health Care Agent [place] Adult Child Health Care Agent Care Teams Sports Teacher Relationship Specialty Start Date End Date Ludy Jacobs CRNP [address] [place] [address] PCP - General Nurse Practitioner 04/20/24 documented as of this encounter
--- OUTSIDE RECORDS SUMMARY | 2025-01-15 19:45 | External Medical Summary | Summary of Care ---
Author Name Unknown Organization [facility] Address [address] [facility] [place] [address] Phone [phone] Care Team Providers Care Plant Superintendent Name Role Phone Ludy Jacobs Primary Care Provider Encounter Details Date Type Department Care Team (Late st Contact Info) Description 12/13/2024 Orders Only Family Practice [facility] [address] [place] [address] Ludy Jacobs CRNP [address] [place] [address] Allergies Active Allergy Reactions Criticality Noted Date [...] HOLDING CHAMBER DEVIIndications:CO PD with emphysema ([facility]) to be used with inhalers [...] group C, by GOLD 2017 classification ([facility]),Chronic hypoxemic respiratory failure ([facility]) Use with nebulized medications 1 Each 07/24/20 22 Active Full Kit Nebulizer SetIndications:FLIGHT RESERVATIONS MANAGER D, group C, by GOLD 2017 classification ([facility]),Chronic hypoxemic respiratory failure ([facility]) Use with nebulizer 1 Each 07/24/20 22 Active Syringe 25G X 1-1/2" 3 ML Use for intramuscular B12 injection 1 Each 10/02/20 22 Active Albuterol Sulfate (2.5 MG/3ML) 0.083% Inhalation Nebulization Solution (Proventil)Indicat ions:COPD, group D, by GOLD 2017 classification ([facility]) Inhale 1 Vial via nebulizer [...] group C, by GOLD 2017 classification ([facility]) Inhale 2 Puffs by mouth every 4 hrs as needed for Cough, Shortness of Breath or Withdrawal symptoms. 54 g 1 12/11/19 25 Active Hospital, Clinic, or Other Facility Administered Medication Ordered Dose Route Frequency Start Date End Date Status Albuterol Sulfate (Proventil) (2.5 MG/3ML) 0.083% inhalation solution 2.5 mgIndications:COPD, group D, by GOLD 2017 classification ([facility]) 2.5 mg NEBULIZER ONCE PRN [...] noted above Atherosclerotic heart diseas e of [place] coronary artery with other forms of angina [...] scheduled with [facility] pain clinic [place] 07/02. Statin intolerance 01/24/2022 Osteopenia 01/08/2022 LYNDON [...] use aero chamber. Test performed by Flex SOIL ANALYST CPFT Circadian rhythm sleep disorder 09/17/2018 [...] to repeat. Coronary artery disease invo lving torres martinez coronary artery of torres martinez heart without angina pectoris 11/12/2015 Assessment & [...] use aero chamber. Test performed by Flex SOIL ANALYST CPFT Assessment & Plan (05/30/2022 4:27 PM [...] use aero chamber. Test performed by Flex SOIL ANALYST CPFT COPD, group B, by GOLD 2017 [...] moderate 04/07/2012 10/05/2012 Overview (04/07/2012): PFT 03/2008 [facility] COPD, SEVERE 04/07/2012 05/04/2019 Overview: PER COPD PROTOCOL #24. PFT 03/2008 [facility] LAST PFT -06/07/12 Gastroesophageal reflux dise ase with esophagitis 04/30/2009 01/14/2022 Overview (05/15/2009): mild ADVANCE DIRECTIVE INFORMATION 12/02/2008 09/26/2024 Overview (12/02/2008): No, Advance Directive brochure offered , patient declined. COPD with emphysema 10/05/20 12 documented as of this encounter (statuses as of 12/13/2024) Immunizations Name Administration Dates Next Due COVID-19 mRNA, LNP-s, No Pre serve, 2-Dose Series ([employer]) 09/26/2022,11/18/2021,04/04/2021,02/28 COVID-19, MRNA-LNP, PF, 30 M CG/0.3 mL, 12 YRS AND ABOVE, IM ([facility]) 10/21/2023 Covid-19, Mrna, Lnp-s, Pf, B ivalent, 30 Mcg, IM, 12 yrs and above ([employer]) 09/26/2022 HEPATITIS B VACCINE, RECOMB, 20 MCG/ML, [...] PM EST Home Visit [facility] [address] [place] [address] Chiquis Vazquez RN [address] [place] [address] 01/02/2025 3:30 PM EST Office Visit Pulmonary Medicine, [facility] [address] [place] [address] Sony Duong MD [address] [facility] [address] [facility] [place] [address] 01/19/2025 4:00 PM EST Office Visit Family Practice [facility] [address] [place] [address] Ludy Jacobs CRNP [address] [place] [address] 02/09/2025 1:00 PM EDT [facility] Visit [facility] [address] [place] [address] Jerel Sam PA-C [address] [place] [address] 02/13/2025 3:30 PM EDT Telemedicine Care at Home [address] [place] [address] Lulu Yee PA-C [address] [place] [address] 02/14/2025 3:00 PM EDT Laboratory Laboratory, [facility] [address] [place] [address] [facility] [address] [place] [address] 02/17/2025 5:30 PM EDT Pharmacy [facility] [place] [address] [place] [address] [facility], Pharmacist Cardiology [facility] [address] [place] [address] 02/28/2025 3:30 PM EDT Telemedicine [facility] [place] [address] [place] [address] [place], Pharmacist Cardiology [facility] [address] [place] [address] 05/15/2025 4:30 PM EDT Imaging Radiology [address] [place] [address] Scheduled Procedures Name Priority Associated [...] 2) 03/06/2021 01/09/2021 CKD PHOS USE SMARTSET 93484 03/29/2022 03/29/2021, 0 03/28/2021 Albumin/Creatinine Ratio 09/29/2023 09/29/2022, 05/0 03/2021 Mammogram 03/02/2024 03/02/2023, 02/21, 11/04/2016, Additional history exists COVID-19 Vaccine ( season) 2024 10/21/2023, 09/26/2022, 09/26/2022, Additional history exists Cervical Cancer Screening 12/04/2024 Pap Smear 12/04/2024 12/04/2021, 02/21, 03/03/2016, Additional history exists GFR 01/30/2025 08/02/2024, 06/0 04/2024, 04/05/2024, Additional history exists CKD HGB USE SMARTSET 81918 08/02/202508/02, 08/02/2024, 04/28/2024, Additional history exists TSH [...] Name Priority Date/Time Associated Diagnosis Comments CT PULMONARY EMBOLUS W CONTRAST Routine 08/31/2024 documented in this encounter Results * CT PULMONARY EMBOLUS W CONTRAST (08/31/2024) Anatomical Region Laterality Modality Chest, Cardio, Body Other 08/31/[address] Final Result documented in this [...] Agents on File Name Relationship Healthcare Agent [facility] Communication Lopez Brown Spouse First Alternate Health Care Agent [place] Adult Child Health Care Agent [phone] (Mobile) Care Teams Plant Superintendent Relationship Specialty Start Date End Date Ludy Jacobs CRNP [address] [place] [address] PCP - General Nurse Practitioner 04/20/24 documented as of this encounter
--- OUTSIDE RECORDS SUMMARY | 2025-01-15 19:45 | External Medical Summary | Summary of Care ---
Author Name Unknown Organization [facility] Address [address] [place] [address] Phone [phone] Care Team Providers Care Computer Bookkeeper Name Role Phone Ludy Jacobs Primary Care Provider Reason for Visit * Reason Comments Hyperlipidemia Dosage Adjustment Via Phone (anticoag Cl inic) Encounter Details Date Type Department Care Team (Late st Contact Info) Description 12/12/2024 2:00 PM EST Telemedicine Cardiology 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 D, group C, by GOLD 2017 classification ([facility]),Chronic hypoxemic respiratory failure ([facility]) Use with nebulizer 1 Each 07/24/20 22 Active Syringe 25G X 1-1/2" 3 ML Use for intramuscular B12 injection 1 Each 10/02/20 22 Active Albuterol Sulfate (2.5 MG/3ML) 0.083% Inhalation Nebulization Solution (Proventil)Indicat ions:COPD, group D, by GOLD 2017 classification ([facility]) Inhale 1 Vial via nebulizer 4 times [...] Tablet Extended Release 24 Hour (toPROL XL)Indications:Old WA (myocardial infarction) TAKE 1 AND 1/2 TABLETS [...] by GOLD 2017 classification ([facility]) Inhale 2 Puffs by mouth every 4 hrs as needed for Cough, Shortness of Breath or Withdrawal symptoms. 54 g 1 12/11/19 25 Active Hospital, Clinic, or Other Facility Administered Medication Ordered Dose Route Frequency Start Date End Date Status Albuterol Sulfate (Proventil) (2.5 MG/3ML) 0.083% inhalation solution 2.5 mgIndications:COPD, group D, by GOLD 2017 classification ([facility]) 2.5 mg NEBULIZER ONCE PRN 04/28/2024 04/28/2025 Acti ve documented as of this encounter (statuses as of 12/12/2024) Active Problems Problem Noted Date Diagnosed Date [...] (05/30/2022 4:32 PM EDT): Appointment scheduled with [facility] [place] 07/02. Statin intolerance 01/24/2022 Osteopenia 01/08/2022 LYNDON [...] use aero chamber. Test performed by Flex DRIED FRUIT WASHER CPFT Circadian rhythm sleep disorder 09/17/2018 Nocturnal [...] (01/22/2023 12:45 PM EST): Continue synthroid Old WA (myocardial infarction) 11/01/2013 Assessment & Plan (05/30/2022 [...] as of this encounter (statuses as of 12/12/2024) Resolved Problems Problem Noted Date Diagnosed Date [...] use aero chamber. Test performed by Flex DRIED FRUIT WASHER CPFT Assessment & Plan (05/30/2022 4:27 PM [...] use aero chamber. Test performed by Flex DRIED FRUIT WASHER CPFT COPD, group B, by GOLD 2017 [...] moderate 04/07/2012 10/05/2012 Overview (04/07/2012): PFT 03/2008 [facility] COPD, SEVERE 04/07/2012 05/04/2019 Overview: PER COPD PROTOCOL #24. PFT 03/2008 [facility] LAST PFT -06/07/12 Gastroesophageal reflux dise ase with esophagitis 04/30/2009 01/14/2022 Overview (05/15/2009): mild ADVANCE DIRECTIVE INFORMATION 12/02/2008 09/26/2024 Overview (12/02/2008): No, Advance Directive brochure offered , patient declined. COPD with emphysema 10/05/20 12 documented as of this encounter (statuses as of 12/12/2024) Immunizations Name Administration Dates Next Due COVID-19 mRNA, LNP-s, No Pre serve, 2-Dose Series ([employer]) 09/26/2022,11/18/2021,04/04/2021,02/28 COVID-19, MRNA-LNP, PF, 30 M CG/0.3 mL, 12 YRS AND ABOVE, IM ([employer]) 10/21/2023 Covid-19, Mrna, Lnp-s, Pf, B ivalent, 30 Mcg, IM, 12 yrs and above ([employer]) 09/26/2022 HEPATITIS B VACCINE, RECOMB, 20 MCG/ML, [...] No 09/27/2024 Does the household have a [facility] source of income? (Household - for ages [...] documented in this encounter Progress Notes * Roge Matos, [facility] - 12/12/2024 11:19 AM EST PHARMACY CHRONIC DISEASE MANAGEMENT - HYPERLIPIDEMIA After connecting to the patient via telephone, the patient was identified by name and date of . Patient was then informed that this was a telephone call only visit. The patient agreed to participate. Visit Disposition: Routine follow-up Total call duration was 10 minutes. HPI: Marisa Brown is a 59 year old year old female. Referred for HLD management by Angeline Madsen. Diet review: Not reviewed Exercise review: Not reviewed Patient Active Problem List Diagnosis DDD (degenerative disc disease), cervical Endometriosis Irritable bowel syndrome with constipation Tobacco use disorder History of peptic ulcer disease Gastroparesis S/P angioplasty with stent Generalized osteoarthritis Cerebellar hemangioma (HCC) Old WA (myocardial infarction) Sicca syndrome (HCC) Acquired hypothyroidism Coronary artery disease involving ramona coronary artery of ramona heart without angina pectoris Dyslipidemia, goal LDL below 70 Vitamin D deficiency Mixed incontinence urge and stress (male)(female) Dupuytren's contracture of left hand TERMINATED MEDICATION USAGE AGREEMENT Adjustment disorder with mixed anxiety and depressed mood 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 Lung nodules Centrilobular emphysema (HCC) Chronic combined systolic and diastolic congestive heart failure (HCC) LYNDON (generalized anxiety disorder) Osteopenia Statin intolerance Chronic pain AC joint arthropathy Tendinosis of rotator cuff Neuropathic pain Chronic hypoxemic respiratory failure (HCC) PTSD (post-traumatic stress disorder) RSD (reflex sympathetic dystrophy) Atherosclerotic heart disease of ramona coronary artery with other forms of angina pectoris (HCC) MDD (major depressive disorder), recurrent episode, mild (HCC) Complex regional pain syndrome of left upper extremity COPD, group D, by GOLD 2017 classification (HCC) HTN, goal below 140/90 Systolic congestive heart failure (HCC) Diverticulosis of large intestine without hemorrhage Hepatic steatosis Atherosclerosis of aorta (HCC) Cavernoma Moderate mitral regurgitation Benign hypertensive heart and CKD, stage 3 (GFR 30-59), w CHF (HCC) Acute low back pain with left-sided sciatica Malodorous urine Pain of right lower leg 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 (HCC) 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) Chronic obstructive pulmonary disease with (acute) exacerbation (HCC) Chronic kidney disease, stage 3b (HCC) Hypertensive chronic kidney disease with stage 1 through stage 4 chronic kidney disease, or unspecified chronic kidney disease Review of patient's allergies indicates: Allergen Reactions Toradol [Ketorolac Tromethamine] Adhesive Tape Other reaction(s): BANDAIDS SKIN ABRASION Colchicine N/v/d Crestor [Rosuvastatin] Went into kidney failure Demerol Depression Ibuprofen Meperidine And Related depression Nsaids Prednisone Other Reaction(s): Patient Reports Contraindication in Kidney Failure/SEE NOTES Sulfa Antibiotics Rash Objective: Results for orders placed or performed in visit on 08/02/24 LIPID PANEL WITH DIRECT LDL IF TG IS HIGH Result Value Ref Range Triglycerides 205 (H) <=174 mg/dL Cholesterol 267 (H) <200 mg/dL HDL Cholesterol 44 (L) >49 mg/dL Non-HDL Cholesterol 223 (H) <=159 mg/dL LDL Cholesterol 182 (H) <=129 mg/dL Results for orders placed or performed in visit on 10/21/23 LIPID PANEL WITH DIRECT LDL IF TG IS HIGH Result Value Ref Range Triglycerides 226 (H) <=174 mg/dL Cholesterol 294 (H) <200 mg/dL HDL Cholesterol 45 (L) >49 mg/dL Non-HDL Cholesterol 249 (H) <=159 mg/dL LDL Cholesterol 204 (H) <=129 mg/dL Current Hyperlipidemia Medication(s): Repatha 140 mg every 2 weeks Assessment & Plan: Uncontrolled Dyslipidemia - LDL goal <70, CAD, HF - Rhabdomyolysis with crestor march 2021 Spoke with patient via phone. Patient was previously on Repatha 420 mg monthly and had stopped taking due to fear of side effects. Discussed with MTM at prior visit and decided to restart Repatha at that time. Today patient reports doing well. She has completed 2 doses of repatha. Discussed monitoring and pt agreeable to labs in 2 months. Approved for HW for hypercholesterolemia 09/22/24 Medication changes: none Labs Due: Lipid panel Follow up: 2 months I spent a total of 10-19 minutes (exact time 13 mins) on the date of service in preparation, delivery, and documentation of the care provided to Marisa Brown excluding any time spent in the performance of separately billed services or time spent by another provider/QHP. Roge Matos, AustinD Juan F Cardiology Pharmacist Medication Therapy Disease Management 12/12/2024, 2:12 PM documented in this encounter Plan of Treatment Upcoming Encounters Date Type Department Care Team (Late st Contact Info) Description 12/27/2024 2:00 PM EST Home Visit Juan F at [facility] [address] [place] [address] Chiquis Vazquez, RN [address] [address] 01/02/2025 3:30 PM EST Office Visit Pulmonary Medicine, [facility] [address] [place] [address] Sony Duong MD [address] [facility] [address] [place] [address] 01/19/2025 4:00 PM EST Office Visit Family Practice [facility] [address] [place] [address] Ludy Jacobs CRNP [address] [place] [address] 02/09/2025 1:00 PM EDT [facility] [address] Jerel Sam PA-C [address] [facility] [place] [address] 02/13/2025 3:30 PM EDT Telemedicine Care at Home [address] [place] [address] Lulu Yee PA-C [address] [place] [address] 02/14/2025 3:00 PM EDT Laboratory Laboratory, [facility] [address] [place] [phone] [facility] [address] [place] [address] 02/17/2025 5:30 PM EDT Pharmacy [facility] [place] [address] [place] [address] [place], Pharmacist Cardiology Hf [address] [place] [address] 02/28/2025 3:30 PM EDT Telemedicine Cardiology [facility] [place] [address] [place] [address] [place], Pharmacist Cardiology [facility] [address] [place] [address] 05/15/2025 4:30 PM EDT Imaging Radiology [facility] [address] [place] [phone] Scheduled Orders Name Type Priority Associated Diagnoses Orde r Schedule LIPID PANEL WITH DIRECT LDL IF TG IS HIGH Lab Routine Dyslipidemia, goal LDL below 70 Expected: 12/12/2024, Expires: 12/12/2025 Scheduled Procedures Name Priority Associated Diagnoses Date/Ti [...] 2) 03/06/2021 01/09/2021 CKD PHOS USE SMARTSET 56609 03/29/2022 03/29/2021, 0 03/28/2021 Albumin/Creatinine Ratio 09/29/2023 09/29/2022, 05/0 03/2021 Mammogram 03/02/2024 03/02/2023, 02/21, 11/04/2016, Additional history exists COVID-19 Vaccine ( season) 2024 10/21/2023, 09/26/2022, 09/26/2022, Additional history exists Cervical Cancer Screening 12/04/2024 Pap Smear 12/04/2024 12/04/2021, 02/21, 03/03/2016, Additional history exists GFR 01/30/2025 08/02/2024, 06/0 04/2024, 04/05/2024, Additional history exists CKD HGB USE SMARTSET 61186 08/02/202508/02, 08/02/2024, 04/28/2024, Additional history exists TSH [...] classification (HCC) Hypotension, unspecified hypotension type Old WA (myocardial infarction) Old myocardial infarction Lung nodules Other nonspecific abnormal finding of lung field Other chronic pain Advanced care planning/counseling discussion- Primary Other specified counseling Generalized anxiety disorder Major depressive disorder, recurrent episode, moderate (HCC) Major depressive disorder, recurrent episode, moderate Cerebellar hemangioma (HCC) Hemangioma of intracranial structures Atherosclerotic heart disease of ramona coronary artery with other forms of angina pectoris (HCC) Coronary artery disease involving ramona coronary artery of ramona heart without angina pectoris Acquired hypothyroidism Unspecified [...] Vomiting alone Sicca syndrome (HCC) Sicca syndrome Dyslipidemia, goal LDL below 70- Primary Other and unspecified hyperlipidemia documented in this encounter Advance Directives * [...] Agents on File Name Relationship Healthcare Agent [facility] Communication Lopez Brown Spouse First [facility] Health Care Agent [place] Adult Child Health Care Agent Care Teams Computer Bookkeeper Relationship Specialty Start Date End Date Ludy Jacobs CRNP [address] [place] [address] PCP - General Nurse Practitioner 04/20/24 documented as of this encounter
--- OUTSIDE RECORDS SUMMARY | 2025-01-15 19:45 | External Medical Summary | Summary of Care ---
Author Name Unknown Organization [facility] Address [address] [place] [address] Phone [phone] Care Team Providers Care Dietetic Aide Name Role Phone Ludy Jacobs Zeina ALIYAH Primary Care Provider Encounter Details Date Type Department Care Team (Late st Contact Info) Description 12/19/2024 Orders Only Outcomes Research Department [address] [place] [address] Lyric Young CHRA MyCode Research Other*[id number] Allergies Active Allergy Reactions Criticality Noted Date [...] as of this encounter (statuses as of 12/19/2024) Medications VALVED HOLDING CHAMBER DEVIIndications:CO PD with [...] COPD, group C, by GOLD 2017 classification ([facility]),Chronic hypoxemic respiratory failure ([facility]) Use with nebulized medications 1 Each 07/24/20 22 Active Full Kit Nebulizer SetIndications:DRUM STRAIGHTENER D, group C, by GOLD 2017 classification ([facility]),Chronic hypoxemic respiratory failure ([facility]) Use with nebulizer 1 Each 07/24/20 22 Active Syringe 25G X 1-1/2" 3 ML Use for intramuscular B12 injection 1 Each 11 10/02/20 22 Active Albuterol Sulfate (2.5 MG/3ML) 0.083% Inhalation Nebulization Solution (Proventil)Indicat ions:COPD, group D, by GOLD 2017 classification ([facility] [...] (HCC),HFrEF (heart failure with reduced ejection fraction) ([facility]) Take 1 Tablet by mouth in [...] s:COPD, group C, by GOLD 2017 classification ([facility] [...] as of this encounter (statuses as of 12/19/2024) Active Problems Problem Noted Date Diagnosed Date [...] noted above Atherosclerotic heart diseas e of klawock coronary artery with other forms of angina [...] scheduled with [facility] pain clinic [place] 07/02. Statin intolerance 01/24/2022 Osteopenia 01/08/2022 LYNDON [...] use aero chamber. Test performed by Flex DIRECTOR OF CARDIOLOGY SERVICE LINE CPFT Circadian rhythm sleep disorder 09/17/2018 Nocturnal hypoxemia due to emphysema 07/30/2018 Adjustment disorder with mixed anxiety and depre ssed mood 07/04/2018 TERMINATED MEDICATION USAGE AGREEMENT 06/03/2018 Dupuytren's contracture of left hand 02/01/2018 Mixed incontinence urge and stress (male)(female ) 03/20/2017 Vitamin D deficiency 03/03/2016 Overview (03/03/2016): March 2015 = 13. Took high dose replacement. Due to repeat. Coronary artery disease invo lving klawock coronary artery of klawock heart without angina pectoris 11/12/2015 Assessment & [...] as of this encounter (statuses as of 12/19/2024) Resolved Problems Problem Noted Date Diagnosed Date [...] use aero chamber. Test performed by Flex DIRECTOR OF CARDIOLOGY SERVICE LINE CPFT Assessment & Plan (05/30/2022 4:27 PM [...] use aero chamber. Test performed by Flex DIRECTOR OF CARDIOLOGY SERVICE LINE CPFT COPD, group B, by GOLD 2017 [...] moderate 04/07/2012 10/05/2012 Overview (04/07/2012): PFT 03/2008 [facility] COPD, SEVERE 04/07/2012 05/04/2019 Overview: PER COPD PROTOCOL #24. PFT 03/2008 [facility] LAST PFT -06/07/12 Gastroesophageal reflux dise ase with esophagitis 04/30/2009 01/14/2022 Overview (05/15/2009): mild ADVANCE DIRECTIVE INFORMATION 12/02/2008 09/26/2024 Overview (12/02/2008): No, Advance Directive brochure offered , patient declined. COPD with emphysema 10/05/20 12 documented as of this encounter (statuses as of 12/19/2024) Immunizations Name Administration Dates Next Due COVID-19 mRNA, LNP-s, No Pre serve, 2-Dose Series ([employer]) 09/26/2022,11/18/2021,04/04/2021,02/28 COVID-19, MRNA-LNP, PF, 30 M CG/0.3 mL, 12 YRS AND ABOVE, IM [facility] 10/21/2023 Covid-19, Mrna, Lnp-s, Pf, B ivalent, 30 Mcg, IM, 12 yrs and above ([employer]) 09/26/2022 HEPATITIS B VACCINE, RECOMB, 20 [...] 2:00 PM EST Home Visit [facility] [place], [facility] [address] [place] [address] Chiquis Vazquez RN [address] [place] [address] 01/02/2025 3:30 PM EST Office Visit Pulmonary Medicine, [facility] [address] [place] [address] [facility] [address] [facility] [address] 01/19/2025 4:00 PM EST Office Visit Family Practice [facility] [address] [place] [address] Ludy Jacobs CRNP [address] [place] [address] 02/09/2025 1:00 PM EDT Home Visit [facility], [facility] [address] [place] [address] Jerel Sam PA-C [address] [place] [address] 02/13/2025 3:30 PM EDT [facility] [address] [facility] [address] Lulu Yee PA-C [address] [place] [address] 02/14/2025 3:00 PM EDT Laboratory Laboratory, [facility] [address] [place] [phone] [facility] [address] [place] [address] 02/17/2025 5:30 PM EDT Pharmacy [facility] [place] [address] [place] [address] [facility] Pharmacist Cardiology Hf [address] [place] [address] 02/28/2025 3:30 PM EDT Telemedicine Cardiology [facility] [place] [address] [place] [address] [place], Pharmacist Cardiology H[facility] [address] [place] [address] 05/15/2025 4:30 PM EDT Imaging Radiology [address] [place] [phone] Scheduled Orders Name Type Priority Associated Diagnoses Orde r Schedule MYCODE INITIAL ADULT Lab Routine MyCode Research Other*[id number] Expected: 12/19/2024 (Approximate), Expires: 01/08/2026 Scheduled Procedures Name Priority Associated Diagnoses Date/Ti [...] 2) 03/06/2021 01/09/2021 CKD PHOS USE SMARTSET [id number] 03/29/2022 03/29/2021, 0 03/28/2021 Albumin/Creatinine Ratio 09/29/2023 09/29/2022, 05/0 03/2021 Mammogram 03/02/2024 03/02/2023, 02/21, 11/04/2016, Additional history exists COVID-19 Vaccine ( season) 2024 10/21/2023, 09/26/2022, 09/26/2022, Additional history exists Cervical Cancer Screening 12/04/2024 Pap Smear 12/04/2024 12/04/2021, 02/21, 03/03/2016, Additional history exists GFR 01/30/2025 08/02/2024, 06/0 04/2024, 04/05/2024, Additional history exists CKD HGB USE SMARTSET 01279 08/02/202508/02, 08/02/2024, 04/28/2024, Additional history exists TSH [...] COPD, group C, by GOLD 2017 classification ([facility]) Hypotension, unspecified hypotension type Old ID (myocardial infarction) Old myocardial infarction Lung nodules Other nonspecific abnormal finding of lung field Other chronic pain Advanced care planning/counseling discussion- Primary Other specified counseling Generalized anxiety disorder Major depressive disorder, recurrent episode, moderate (HCC) Major depressive disorder, recurrent episode, moderate Cerebellar hemangioma (HCC) Hemangioma of intracranial structures Atherosclerotic heart disease of klawock coronary artery with other forms of angina pectoris (HCC) Coronary artery disease involving klawock coronary artery of [place]ock heart without angina pectoris Acquired hypothyroidism Unspecified [...] Vomiting alone Sicca syndrome (HCC) Sicca syndrome MyCode Research Other*[id number] documented in this encounter Advance Directives * [...] [place] Spouse First Alternate Health Care Agent [place] Adult Child Health Care Agent Care Teams Dietetic Aide Relationship Specialty Start Date End Date Ludy Jacobs CRNP [address] [place] [address] PCP - General Nurse Practitioner 04/20/24 documented as of this encounter
--- OUTSIDE RECORDS SUMMARY | 2025-01-15 19:45 | External Medical Summary | Summary of Care ---
Author Name Unknown Organization [facility] Address [address] [place] [address] Phone [phone] Care Team Providers Care Crown Pouncer Name Role Phone Ludy Jacobs Primary Care Provider Reason for Visit * Reason Onset Date Comments Appointment 12/27/2024 Encounter Details Date Type Department Care Team (Late st Contact Info) Description 12/27/2024 Telephone [facility] [place] [address] [place] [address] Thomas Whitmore OSA [address] [place] [address] Appointment Allergies Active Allergy Reactions [...] as of 12/28/2024) Medications VALVED HOLDING CHAMBER DEVIIndications:[place] PD with [...] Each 07/24/20 22 Active Full Kit Nebulizer SetIndications:PAINTER AND BODY WORK D, group C, by GOLD 2017 classification [...] noted above Atherosclerotic heart diseas e of [place] coronary artery with other forms of angina [...] (05/30/2022 4:32 PM EDT): Appointment scheduled with [facility] pain clinic [place] 07/02. Statin intolerance 01/24/2022 Osteopenia 01/08/2022 LYNDON [...] aero chamber. Test performed by Flex TECHNICAL SALES ADVISOR CPFT Circadian rhythm sleep disorder 09/17/2018 [...] to repeat. Coronary artery disease invo lving [place] coronary artery of [place] heart without angina pectoris 11/12/2015 Assessment & Plan (01/22/2023 12:36 PM EST): Stable no angina -continue ASA, metoprolol xl, repatha. Can't tolerate delgado d/t low bp Dyslipidemia, goal LDL below 70 11/12/2015 Sicca syndrome 12/29/2014 Acquired hypothyroidism 12/29/2014 Assessment & Plan (01/22/2023 12:45 PM EST): Continue synthroid Old [place] (myocardial infarction) 11/01/2013 Assessment & Plan (05/30/2022 [...] aero chamber. Test performed by Flex TECHNICAL SALES ADVISOR CPFT Assessment & Plan (05/30/2022 4:27 [...] aero chamber. Test performed by Flex TECHNICAL SALES ADVISOR CPFT COPD, group B, by GOLD 2017 [...] mRNA, LNP-s, No Pre serve, 2-Dose Series ([employer]) 09/26/2022,11/18/2021,04/04/2021,02/28 COVID-19, MRNA-LNP, PF, 30 M CG/0.3 mL, 12 YRS AND ABOVE, IM ([facility]) 10/21/2023 Covid-19, Mrna, Lnp-s, Pf, B ivalent, 30 Mcg, IM, 12 yrs and above ([employer]) 09/26/2022 HEPATITIS B VACCINE, RECOMB, 20 MCG/ML, [...] 5:37 AM YASMINET Valentino Child RN * Do you have [...] Valentino Child, BREE documented in this encounter Miscellaneous Notes * Telephone Encounter - Thomas Whitmore OSA - 12/27/2024 4:39 PM EST TT Request from Chiquis Vazquez Changed pt's primary number to [phone] documented in this encounter Plan of Treatment Upcoming Encounters Date Type Department Care Team (Late st Contact Info) Description 01/02/2025 3:30 PM EST Office Visit Pulmonary Medicine, [facility] [address] [place] [address] [facility] [address] [facility] [place] [address] 01/19/2025 4:00 PM EST Office Visit Family Practice [facility] [address] [place] [address] Ludy Jacobs CRNP [address] [place] [address] 02/09/2025 1:00 PM EDT Home Visit [facility] [address] [place] [address] Jerel Sam PA-C [address] [place] [address] 02/13/2025 3:30 PM EDT Telemedicine Care at Home [address] [place] [address] Lulu Yee PA-C [address] [place] [address] 02/14/2025 3:00 PM EDT Laboratory Laboratory, [facility] [id number] [facility] [address] [place] [address] 02/17/2025 5:30 PM EDT Pharmacy Cardiology [facility] [place] [address] [place] [address] [place], Pharmacist Cardiology [facility] [address] [place] [address] 02/28/2025 3:30 PM EDT Telemedicine Cardiology [facility] [place] [address] [place] [address] [place], Pharmacist Cardiology [facility] [address] [place] [address] 04/14/2025 3:00 PM EDT Home Visit [facility] [address] [facility] [place] [address] Chiquis Vazquez RN 132 [facility] [place] [address] 05/15/2025 4:30 PM EDT Imaging Radiology [address] 132 [facility] [place] [phone] Scheduled Procedures Name Priority Associated Diagnoses Date/Ti [...] 2) 03/06/2021 01/09/2021 CKD PHOS USE SMARTSET 63909 03/29/2022 03/29/2021, 0 03/28/2021 Albumin/Creatinine Ratio 09/29/2023 09/29/2022, 05/0 03/2021 Mammogram 03/02/2024 03/02/2023, 02/21, 11/04/2016, Additional history exists COVID-19 Vaccine ( season) 2024 10/21/2023, 09/26/2022, 09/26/2022, Additional history exists Cervical Cancer Screening 12/04/2024 Pap Smear 12/04/2024 12/04/2021, 02/21, 03/03/2016, Additional history exists GFR 01/30/2025 08/02/2024, 06/0 04/2024, 04/05/2024, Additional history exists CKD HGB USE SMARTSET 18406 08/02/202508/02, 08/02/2024, 04/28/2024, Additional history exists TSH [...] Agents on File Name Relationship Healthcare Agent [facility] p Communication Lopez Brown Spouse First Alternate Health Care Agent [place] Adult Child Health Care Agent Care Teams Crown Pouncer Relationship Specialty Start Date End Date Ludy Jacobs CRNP [address] [place] [address] PCP - General Nurse Practitioner 04/20/24 documented as of this encounter
--- OUTSIDE RECORDS SUMMARY | 2025-01-15 19:46 | External Medical Summary | Summary of Care ---
Author Name Unknown Organization [facility] Address [address] [facility] [place] [address] Phone [phone] Care Team Providers Care Material Expediter Name Role Phone Ludy Jacobs Primary Care Provider Reason for Visit * Reason Onset Date Comments Medication Refill 12/11/2024 Encounter Details Date Type Department Care Team (Late st Contact Info) Description 12/11/2024 Refill Family Practice [facility] [address] [place] [address] Ludy Jacobs CRNP [address] [place] [id number] COPD, group C, by GOLD 2017 classification ([facility]) Allergies Active Allergy Reactions Criticality Noted Date [...] as of this encounter (statuses as of 12/11/2024) Medications VALVED HOLDING CHAMBER DEVIIndications:C OPD with emphysema ([facility]) to be used with inhalers as instructed [...] :COPD, group C, by GOLD 2017 classification ([facility]),Chronic hypoxemic respiratory failure ([facility]) Use with nebulized medications 1 Each 07/24/20 22 Active Full Kit Nebulizer SetIndications:[place] PD, group C, by GOLD 2017 classification ([facility]),Chronic hypoxemic respiratory failure ([facility]) Use with nebulizer 1 Each 07/24/20 22 Active Syringe 25G X 1-1/2" 3 ML Use for intramuscular B12 injection 1 Each 11 10/02/20 22 Active Albuterol Sulfate (2.5 MG/3ML) 0.083% Inhalation Nebulization Solution (Proventil)Indica tions:COPD, group D, by GOLD 2017 classification ([facility]) Inhale 1 Vial via nebulizer 4 times [...] Extended Release 24 Hour (toPROL XL)Indications:Ol d [place] (myocardial infarction) TAKE 1 AND 1/2 TABLETS BY MOUTH EVERY MORNING 135 Tablet 11/21/20 24 Active predniSONE 5 MG Oral Tablet (Deltasone)Indica tions:COPD, frequent exacerbations (HCC) As directed 30 Tablet 12/02/19 25 Active Methocarbamol 500 MG Oral Tablet (Robamol)Indicati ons:Chronic pain syndrome Take 1 Tablet by mouth in the morning and 1 Tablet at noon and 1 Tablet before bedtime. 90 Tablet 12/09/19 25 Active Albuterol Sulfate HFA 108 (90 Base) MCG/ACT Inhalation Aerosol SolutionIndicatio ns:COPD, group C, by GOLD 2017 classification ([facility]) Inhale 2 Puffs by mouth every 4 hrs as needed for Cough, Shortness of Breath or Withdrawal symptoms. 54 g 1 12/11/19 25 Active Albuterol Sulfate HFA 108 (90 Base) MCG/ACT Inhalation Aerosol SolutionIndicatio ns:COPD, group C, by GOLD 2017 classification ([facility]) Inhale 2 Puffs by mouth every 4 hrs as needed for Cough, Shortness of Breath or Withdrawal symptoms. 54 g 1 07/11/20 24 025 Discontin ued(Refil l) Hospital, Clinic, or Other Facility Administered Medication Ordered Dose Route Frequency Start Date End Date Status Albuterol Sulfate (Proventil) (2.5 MG/3ML) 0.083% inhalation solution 2.5 mgIndications:COPD, group D, by GOLD 2017 classification ([facility]) 2.5 mg NEBULIZER ONCE PRN 04/28/2024 04/28/2025 Acti ve documented as of this encounter (statuses as of 12/11/2024) Active Problems Problem Noted Date Diagnosed Date [...] noted above Atherosclerotic heart diseas e of [place] coronary artery with other forms of angina [...] (05/30/2022 4:32 PM EDT): Appointment scheduled with [facility] pain clinic [place] 07/02. Statin intolerance 01/24/2022 Osteopenia 01/08/2022 LYNDON [...] use aero chamber. Test performed by Flex FIELD ARTILLERY FIRE CONTROL MAN CPFT Circadian rhythm sleep disorder 09/17/2018 Nocturnal hypoxemia due to emphysema 07/30/2018 Adjustment disorder with mixed anxiety and depre ssed mood 07/04/2018 TERMINATED MEDICATION USAGE AGREEMENT 06/03/2018 Dupuytren's contracture of left hand 02/01/2018 Mixed incontinence urge and stress (male)(female ) 03/20/2017 Vitamin D deficiency 03/03/2016 Overview (03/03/2016): March 2015 = 13. Took high dose replacement. Due to repeat. Coronary artery disease invo lving [place] coronary artery of [place] heart without angina pectoris 11/12/2015 Assessment & Plan (01/22/2023 12:36 PM EST): Stable no angina -continue ASA, metoprolol xl, repatha. Can't tolerate delgado d/t low bp Dyslipidemia, goal LDL below 70 11/12/2015 Sicca syndrome 12/29/2014 Acquired hypothyroidism 12/29/2014 Assessment & Plan (01/22/2023 12:45 PM EST): Continue synthroid Old [place] (myocardial infarction) 11/01/2013 Assessment & Plan (05/30/2022 [...] as of this encounter (statuses as of 12/11/2024) Resolved Problems Problem Noted Date Diagnosed Date [...] use aero chamber. Test performed by Flex FIELD ARTILLERY FIRE CONTROL MAN CPFT Assessment & Plan (05/30/2022 4:27 PM [...] use aero chamber. Test performed by Flex FIELD ARTILLERY FIRE CONTROL MAN CPFT COPD, group B, by GOLD 2017 [...] moderate 04/07/2012 10/05/2012 Overview (04/07/2012): PFT 03/2008 [facility] COPD, SEVERE 04/07/2012 05/04/2019 Overview: PER COPD PROTOCOL #24. PFT 03/2008 [facility] LAST PFT -06/07/12 Gastroesophageal reflux dise ase with esophagitis 04/30/2009 01/14/2022 Overview (05/15/2009): mild ADVANCE DIRECTIVE INFORMATION 12/02/2008 09/26/2024 Overview (12/02/2008): No, Advance Directive brochure offered , patient declined. COPD with emphysema 10/05/20 12 documented as of this encounter (statuses as of 12/11/2024) Immunizations Name Administration Dates Next Due COVID-19 mRNA, LNP-s, No Pre serve, 2-Dose Series ([employer]) 09/26/2022,11/18/2021,04/04/2021,02/28 COVID-19, MRNA-LNP, PF, 30 M CG/0.3 mL, 12 YRS AND ABOVE, IM ([employer] [facility]) 10/21/2023 Covid-19, Mrna, Lnp-s, Pf, B ivalent, [...] No 03/28/2021 5:37 AM EDT Valentino Child, RN * Are you blind or do [...] encounter Miscellaneous Notes * Telephone Encounter - Huyen Leblanc [facility] - 12/11/2024 9:12 PM ESTSigned Prescriptions: Disp Refills Albuterol Sulfate HFA 108 (90 Base) MCG/AC*54 g 1 Sig: Inhale 2 Puffs by mouth every 4 hrs as needed for Cough, Shortness of Breath or Withdrawal symptoms.Authorizing Provider: LUDY JACOBS User: HUYEN LEBLANC Electronically signed by Huyen Leblanc [facility] at 12/11/2024 9:12 PM EST documented in this encounter Plan of Treatment Upcoming Encounters Date Type Department Care Team (Late st Contact Info) Description 12/12/2024 2:00 PM EST Telemedicine Cardiology [facility], [address] [place] [address] [place], Pharmacist Cardiology [facility] [address] [place] [address] 12/27/2024 2:00 PM EST [facility] [address] [facility] [place] [place] [address] Chiquis Vazquez RN [address] [facility] [address] [place] [address] 01/02/2025 3:30 PM EST Office Visit Pulmonary Medicine, [facility] [address] [facility] [address] [place] [address] Sony Duong MD [address] [place] [address] 01/19/2025 4:00 PM EST Office Visit Family Practice [facility] [address] [facility] [place] [address] Ludy Jacobs CRNP [address] [facility] [place] [address] 02/09/2025 1:00 PM EDT Home Visit [facility], [facility] [address] [place] [address] Jerel Sam PA-C [address] [facility] [place] [place] [address] 02/13/2025 3:30 PM EDT Telemedicine Care at Home [address] [place] [address] Lulu Yee PA-C [address] [place] [address] 05/15/2025 4:30 PM EDT Imaging Radiology [address] [place] [phone] Scheduled [...] 2) 03/06/2021 01/09/2021 CKD PHOS USE SMARTSET 70039 03/29/2022 03/29/2021, 0 03/28/2021 Albumin/Creatinine Ratio 09/29/2023 09/29/2022, 05/0 03/2021 Mammogram 03/02/2024 03/02/2023, 02/21, 11/04/2016, Additional history exists COVID-19 Vaccine ( season) 2024 10/21/2023, 09/26/2022, 09/26/2022, Additional history exists Cervical Cancer Screening 12/04/2024 Pap Smear 12/04/2024 12/04/2021, 02/21, 03/03/2016, Additional history exists GFR 01/30/2025 08/02/2024, 06/0 04/2024, 04/05/2024, Additional history exists CKD HGB USE SMARTSET 11548 08/02/202508/02, 08/02/2024, 04/28/2024, Additional history exists TSH [...] classification (HCC) Hypotension, unspecified hypotension type Old [place] (myocardial infarction) Old myocardial infarction Lung nodules Other nonspecific abnormal finding of lung field Other chronic pain Advanced care planning/counseling discussion- Primary Other specified counseling Generalized anxiety disorder Major depressive disorder, recurrent episode, moderate (HCC) Major depressive disorder, recurrent episode, moderate Cerebellar hemangioma (HCC) Hemangioma of intracranial structures Atherosclerotic heart disease of [place] coronary artery with other forms of angina pectoris (HCC) Coronary artery disease involving [place] coronary artery of [place] heart without angina pectoris Acquired hypothyroidism Unspecified [...] Sicca syndrome (HCC) Sicca syndrome COPD, group C, by GOLD 2017 classification (HCC) documented in this encounter Advance Directives * [...] Brown Spouse First Alternate Health Care Agent [place] Adult Child Health Care Agent Care Teams Material Expediter Relationship Specialty Start Date End Date Ludy Jacobs CRNP [address] [place] [address] PCP - General Nurse Practitioner 04/20/24 documented as of this encounter
--- OUTSIDE RECORDS SUMMARY | 2025-01-15 19:46 | External Medical Summary | Summary of Care ---
Author Name Unknown Organization [facility] Address [address] [facility] [place] [address] Phone [phone] Care Team Providers Care Circulation Director Name Role Phone Ludy Jacobs Zeina LY Primary Care Provider Encounter Details Date Type Department Care Team (Late st Contact Info) Description 12/12/2024 Population Health External Data Unspecified Department Allergies [...] Documents, Reported on 12/05/2024 Nebulizers (NEBULIZER COMPRESSOR) [facility] Inhale via nebulizer. Along with supply . Use as directed. Dx code- J44.9 and J43.9 1 Each 10/05/20 18 Active aspirin enteric coated 81 MG TBEC Take 1 Tablet by mouth every morning. Active Acetaminophen 325 MG Oral Tablet (Tylenol) Take 1 Tablet by mouth every 6 hours as needed. Active Nebulizer DeviceIndications: COPD, group C, by GOLD 2017 classification ([facility]),Chronic hypoxemic respiratory failure ([facility]) Use with nebulized medications 1 Each 07/24/20 Active Full Kit Nebulizer SetIndications:DATABASE MANAGER D, group C, by GOLD 2017 classification ([facility]),Chronic hypoxemic respiratory failure ([facility]) Use with nebulizer 1 Each 07/24/20 22 Active Syringe 25G X 1-1/2" 3 ML Use for intramuscular B12 injection 1 Each 10/02/20 22 Active Albuterol Sulfate (2.5 MG/3ML) 0.083% Inhalation Nebulization Solution (Proventil)Indicat ions:COPD, group D, by GOLD 2017 classification ([facility]) Inhale 1 Vial via nebulizer 4 [...] C, by GOLD 2017 classification ([facility]) Inhale 2 Puffs by mouth every 4 hrs as needed for Cough, Shortness of Breath or Withdrawal symptoms. 54 g 1 12/11/19 25 Active Hospital, Clinic, or Other Facility Administered Medication Ordered Dose Route Frequency Start Date End Date Status Albuterol Sulfate (Proventil) (2.5 MG/3ML) 0.083% inhalation solution 2.5 mgIndications:COPD, group D, by GOLD 2017 classification ([facility]) 2.5 mg NEBULIZER ONCE PRN 04/28/2024 [...] noted above Atherosclerotic heart diseas e of [place] coronary artery with other forms of angina [...] (05/30/2022 4:32 PM EDT): Appointment scheduled with [facility] pain clinic [place] 07/02. Statin intolerance 01/24/2022 Osteopenia 01/08/2022 [...] use aero chamber. Test performed by Flex MOTHER REPAIRER CPFT Circadian rhythm sleep disorder 09/17/2018 Nocturnal hypoxemia due to emphysema 07/30/2018 Adjustment disorder with mixed anxiety and depre ssed mood 07/04/2018 TERMINATED MEDICATION USAGE AGREEMENT 06/03/2018 Dupuytren's contracture of left hand 02/01/2018 Mixed incontinence urge and stress (male)(female ) 03/20/2017 Vitamin D deficiency 03/03/2016 Overview (03/03/2016): March 2015 = 13. Took high dose replacement. Due to repeat. Coronary artery disease invo lving [place] coronary artery of [place] heart without angina pectoris 11/12/2015 Assessment & [...] use aero chamber. Test performed by Flex MOTHER REPAIRER CPFT Assessment & Plan (05/30/2022 4:27 PM [...] use aero chamber. Test performed by Flex MOTHER REPAIRER CPFT COPD, group B, by GOLD 2017 [...] (04/07/2012): PFT 03/2008 [facility] COPD, SEVERE 04/07/2012 05/04/2019 Overview: PER COPD PROTOCOL #24. PFT 03/2008 [facility] LAST PFT -06/07/12 Gastroesophageal reflux dise ase with esophagitis 04/30/2009 01/14/2022 Overview (05/15/2009): mild ADVANCE DIRECTIVE INFORMATION 12/02/2008 09/26/2024 Overview (12/02/2008): No, Advance Directive brochure offered , patient declined. COPD with emphysema 10/05/20 12 documented as of this encounter (statuses as of 12/12/2024) Immunizations Name Administration Dates Next Due COVID-19 mRNA, LNP-s, No Pre serve, 2-Dose Series ([facility]) 09/26/2022,11/18/2021,04/04/2021,02/28 COVID-19, MRNA-LNP, PF, 30 M CG/0.3 mL, 12 YRS AND ABOVE, IM ([facility]) 10/21/2023 Covid-19, Mrna, Lnp-s, Pf, B ivalent, 30 Mcg, IM, 12 yrs and above ([facility]) 09/26/2022 HEPATITIS B VACCINE, RECOMB, 20 MCG/ML, [...] Description 12/12/2024 2:00 PM EST Telemedicine Cardiology [facility] [place] [address] [place] [address] [place] [address], Pharmacist Cardiology [facility] [address] [place] [address] Arrived 12/27/2024 2:00 PM EST [facility] Visit [facility] [address] [place] [address] Chiquis Vazquez RN [address] [facility] [place] [address] 01/02/2025 3:30 PM EST Office Visit Pulmonary Medicine, [facility] [address] [place] [address] Sony Duong MD [address] [facility] [address] 01/19/2025 4:00 PM EST Office Visit Family Practice [facility] [address] [place] [address] Ludy Jacobs CRNP [address] [place] [address] 02/09/2025 1:00 PM EDT [facility] [address] [place] [address] Jerel Sam PA-C [address] [place] [address] 02/13/2025 3:30 PM EDT Telemedicine Care at Home [address] [facility] [place] [address] Lulu Yee PA-C [address] [facility] [place] [address] 05/15/2025 4:30 PM EDT Imaging Radiology [facility] [facility], [place] [address] [place] [phone] Scheduled [...] 2) 03/06/2021 01/09/2021 CKD PHOS USE SMARTSET 27869 03/29/2022 03/29/2021, 0 03/28/2021 Albumin/Creatinine Ratio 09/29/2023 09/29/2022, 05/0 03/2021 Mammogram 03/02/2024 03/02/2023, 02/21, 11/04/2016, Additional history exists COVID-19 Vaccine ( season) 2024 10/21/2023, 09/26/2022, 09/26/2022, Additional history exists Cervical Cancer Screening 12/04/2024 Pap Smear 12/04/2024 12/04/2021, 02/21, 03/03/2016, Additional history exists GFR 01/30/2025 08/02/2024, 06/0 04/2024, 04/05/2024, Additional history exists CKD HGB USE SMARTSET 74587 08/02/202508/02, 08/02/2024, 04/28/2024, Additional history exists TSH [...] Brown Spouse First Alternate Health Care Agent [place] Adult Child Health Care Agent Care Teams Circulation Director Relationship Specialty Start Date End Date Ludy Jacobs CRNP [address] [place] [address] PCP - General Nurse Practitioner 04/20/24 documented as of this encounter
--- OUTSIDE RECORDS SUMMARY | 2025-01-15 19:46 | External Medical Summary | Summary of Care ---
Author Name Unknown Organization [facility] Address [address] [place] [address] Phone [phone] Care Team Providers Care Manager Switch Name Role Phone Martha Jacobssa Zeina LY Primary Care Provider Reason for Visit * Reason Onset Date Comments Appointment 12/08/2024 Encounter Details Date Type Department Care Team (Late st Contact Info) Description 12/08/2024 Telephone [facility] [place] [address] [place] [address] Bubba Patterson, ALDO [address] [place], [place] [id number] Appointment (//) Allergies Active Allergy Reactions Criticality Noted Date [...] as of this encounter (statuses as of 12/08/2024) Medications VALVED HOLDING CHAMBER DEVIIndications:[place] PD with [...] group C, by GOLD 2017 classification ([facility]),Chronic hypoxemic respiratory failure ([facility]) Use with nebulized medications 1 Each 07/24/20 22 Active Full Kit Nebulizer SetIndications:PUNCHBOARD ASSEMBLER D, group C, by GOLD 2017 classification ([facility]),Chronic hypoxemic respiratory failure ([facility]) Use with nebulizer 1 Each 07/24/20 22 Active Syringe 25G X 1-1/2" 3 ML Use for intramuscular B12 injection 1 Each 10/02/20 22 Active Albuterol Sulfate (2.5 MG/3ML) 0.083% Inhalation Nebulization Solution (Proventil)Indicat ions:COPD, group D, by GOLD 2017 classification ([facility]) Inhale 1 Vial via nebulizer [...] (heart failure with reduced ejection fraction) ([facility]) Take 1 Tablet by mouth [...] group C, by GOLD 2017 classification ([facility]) Inhale 2 Puffs by mouth [...] BEFORE BEDTIME) 120 Tablet 10/27/20 24 Active Metoprolol Succinate ER 50 MG Oral Tablet Extended Release 24 Hour (toPROL XL)Indications:Old VT (myocardial infarction) TAKE 1 AND 1/2 TABLETS BY MOUTH EVERY MORNING 135 Tablet 11/21/20 24 Active predniSONE 5 MG Oral Tablet (Deltasone)Indicat ions:COPD, frequent exacerbations (HCC) As directed 30 Tablet 12/02/19 25 Active Hospital, Clinic, or Other Facility Administered Medication Ordered Dose Route Frequency Start Date End Date Status Albuterol Sulfate (Proventil) (2.5 MG/3ML) 0.083% inhalation solution 2.5 mgIndications:COPD, group D, by GOLD 2017 classification (HCC) 2.5 mg NEBULIZER ONCE PRN 04/28/2024 04/28/2025 Acti ve documented as of this encounter (statuses as of 12/08/2024) Active Problems Problem Noted Date Diagnosed Date [...] noted above Atherosclerotic heart diseas e of [place] coronary artery with other forms of angina [...] 4:32 PM EDT): Appointment scheduled with [facility] pain clinic [place] 07/02. Statin intolerance 01/24/2022 Osteopenia 01/08/2022 LYNDON [...] use aero chamber. Test performed by Flex CASTABLES WORKER CPFT Circadian rhythm sleep disorder 09/17/2018 [...] to repeat. Coronary artery disease invo lving [place] coronary artery of [place] heart without angina pectoris 11/12/2015 Assessment & [...] as of this encounter (statuses as of 12/08/2024) Resolved Problems Problem Noted Date Diagnosed Date [...] use aero chamber. Test performed by Flex CASTABLES WORKER CPFT Assessment & Plan (05/30/2022 4:27 [...] use aero chamber. Test performed by Flex CASTABLES WORKER CPFT COPD, group B, by GOLD [...] moderate 04/07/2012 10/05/2012 Overview (04/07/2012): PFT 03/2008 [facility] COPD, SEVERE 04/07/2012 05/04/2019 Overview: PER COPD PROTOCOL #24. PFT 03/2008 [facility] LAST PFT -06/07/12 Gastroesophageal reflux dise ase with esophagitis 04/30/2009 01/14/2022 Overview (05/15/2009): mild ADVANCE DIRECTIVE INFORMATION 12/02/2008 09/26/2024 Overview (12/02/2008): No, Advance Directive brochure offered , patient declined. COPD with emphysema 10/05/20 12 documented as of this encounter (statuses as of 12/08/2024) Immunizations Name Administration Dates Next Due COVID-19 mRNA, LNP-s, No Pre serve, 2-Dose Series ([employer]) 09/26/2022,11/18/2021,04/04/2021,02/28 COVID-19, MRNA-LNP, PF, 30 M CG/0.3 mL, 12 YRS AND ABOVE, IM ([employer]nat[employer]) 10/21/2023 Covid-19, Mrna, Lnp-s, Pf, B ivalent, 30 Mcg, IM, 12 yrs and above ([employer]) 09/26/2022 HEPATITIS B VACCINE, RECOMB, 20 MCG/ML, [...] No 09/27/2024 Does the household have a [facility] source of income? (Household - for [...] 5:37 AM EDT Valentino Child, BREE * Do you have serious difficulty walking or climbing stairs? (5 years old or older) Answer Date of Assessment Author Yes 03/28/2021 10:00 AM EDT Daija Li RN * Do you have difficulty dressing or bathing? (5 years old or older) Answer Date of Assessment Author Yes 03/28/2021 5:37 AM EDValentino Young RN * Because of a physical, mental, [...] encounter Miscellaneous Notes * Telephone Encounter - Bubba Patterson OSA - 12/08/2024 2:21 PM EST Date Scheduled: 12/08 Time: 222pm In Person RNCM Special Instructions: enrollment appts scheduled documented in this encounter Plan of Treatment Upcoming Encounters Date Type Department Care Team (Late st Contact Info) Description 12/08/2024 3:00 PM EST Hospital Encounter PET CT IMAGING, [facility] [address] [place] [address] 12/12/2024 2:00 PM EST Telemedicine Cardiology [facility], [place] [address] [place] [address] [place] [address], Pharmacist Cardiology [facility] [address] [place] [address] 12/27/2024 2:00 PM EST Home Visit [facility] at [facility] [address] [address] Chiquis Vazquez RN [address] [place] [address] 01/02/2025 3:30 PM EST Office Visit Pulmonary Medicine, [facility] [address] [place] [address] Sony Duong MD [address] [place] [address] 01/19/2025 4:00 PM EST Office Visit Family Practice [facility] [address] [facility] [place] [address] Ludy Jacobs CRNP [address] [place] [address] 02/09/2025 1:00 PM EDT [facility] Visit [facility] [place] [place] [address] Jerel Sam PA-C [address] [facility] [place] [address] 02/13/2025 3:30 PM EDT Telemedicine Care at Home [address] [place] [address] Lulu Yee PA-C [address] [place], [place] [phone] 05/15/2025 4:30 PM EDT Imaging Radiology [address] 132 [facility] [place] [id number] Scheduled Procedures Name Priority Associated Diagnoses Date/Ti [...] 2) 03/06/2021 01/09/2021 CKD PHOS USE SMARTSET 15328 03/29/2022 03/29/2021, 0 03/28/2021 Albumin/Creatinine Ratio 09/29/2023 09/29/2022, 05/0 03/2021 Mammogram 03/02/2024 03/02/2023, 02/21, 11/04/2016, Additional history exists COVID-19 Vaccine ( season) 2024 10/21/2023, 09/26/2022, 09/26/2022, Additional history exists Cervical Cancer Screening 12/04/2024 Pap Smear 12/04/2024 12/04/2021, 02/21, 03/03/2016, Additional history exists GFR 01/30/2025 08/02/2024, 06/0 04/2024, 04/05/2024, Additional history exists CKD HGB USE SMARTSET 25488 08/02/202508/02, 08/02/2024, 04/28/2024, Additional history exists TSH [...] Hospital p Communication Lopez Brown Spouse [facility] Health Care Agent [facility] Child Health Care Agent Care Teams Manager Switch Relationship Specialty Start Date End Date Ludy Jacobs CRNP [address] [place] [address] PCP - General Nurse Practitioner 04/20/24 documented as of this encounter
--- OUTSIDE RECORDS SUMMARY | 2025-01-15 19:46 | External Medical Summary | Summary of Care ---
Author Name Unknown Organization [facility] Address [address] [facility] [place] [address] Phone [phone] Care Team Providers Care Information Security Specialist Name Role Phone Martha Jacobssa Zeina LY Primary Care Provider Reason for Visit * Reason Onset Date Comments Medication Refill 12/08/2024 Encounter Details Date Type Department Care Team (Late st Contact Info) Description 12/08/2024 Refill Family Practice [address] [facility], [place] [address] [place] [phone] Ace Rodriguez DO [address] [place] [place] [address] Chronic pain syndrome Allergies [...] as of this encounter (statuses as of 12/09/2024) Medications VALVED HOLDING CHAMBER DEVIIndications:C OPD with [...] Extended Release 24 Hour (toPROL XL)Indications:Ol d PR (myocardial infarction) TAKE 1 AND 1/2 [...] before bedtime. 90 Tablet 12/09/19 25 Active Methocarbamol 500 MG Oral Tablet (Robamol)Indicati ons:Chronic pain syndrome TAKE 1 TABLET BY MOUTH 4 TIMES A DAY (MORNING, NOON, EVENING, AND BEFORE BEDTIME) 120 Tablet 10/27/20 24 025 Discontin ued(Refil l) Hospital, Clinic, or Other Facility Administered Medication Ordered Dose Route Frequency Start Date End Date Status Albuterol Sulfate (Proventil) (2.5 MG/3ML) 0.083% inhalation solution 2.5 mgIndications:COPD, group D, by GOLD 2017 classification (HCC) 2.5 mg NEBULIZER ONCE PRN 04/28/2024 04/28/2025 Acti ve documented as of this encounter (statuses as of 12/09/2024) Active Problems Problem Noted Date Diagnosed Date [...] noted above Atherosclerotic heart diseas e of [place] coronary artery with other forms [...] 4:32 PM EDT): Appointment scheduled with [facility] pain clinic [place] 07/02. Statin intolerance 01/24/2022 Osteopenia 01/08/2022 LYNDON [...] use aero chamber. Test performed by Flex SUPPORT GROUP MANAGER CPFT Circadian rhythm sleep disorder 09/17/2018 [...] to repeat. Coronary artery disease invo lving [place] coronary artery of [place] heart without angina pectoris 11/12/2015 [...] as of this encounter (statuses as of 12/09/2024) Resolved Problems Problem Noted Date Diagnosed Date [...] aero chamber. Test performed by Flex [facility] COPD, group B, by GOLD 2017 [...] moderate 04/07/2012 10/05/2012 Overview (04/07/2012): PFT 03/2008 [facility] COPD, SEVERE 04/07/2012 05/04/2019 Overview: PER COPD PROTOCOL #24. PFT 03/2008 [facility] LAST PFT -06/07/12 Gastroesophageal reflux dise ase with esophagitis 04/30/2009 01/14/2022 Overview (05/15/2009): mild ADVANCE DIRECTIVE INFORMATION 12/02/2008 09/26/2024 Overview (12/02/2008): No, Advance Directive brochure offered , patient declined. COPD with emphysema 10/05/20 12 documented as of this encounter (statuses as of 12/09/2024) Immunizations Name Administration Dates Next Due COVID-19 mRNA, LNP-s, No Pre serve, 2-Dose Series ([employer]) 09/26/2022,11/18/2021,04/04/2021,02/28 COVID-19, MRNA-LNP, PF, 30 M CG/0.3 mL, 12 YRS AND ABOVE, IM ([employer]ir[employer]) 10/21/2023 Covid-19, Mrna, Lnp-s, Pf, B ivalent, 30 Mcg, IM, 12 yrs and above ([employer]) 09/26/2022 HEPATITIS B VACCINE, RECOMB, 20 MCG/ML, [...] Telephone Encounter - Ludy Jacobs CRNP - 12/09/2024 9:30 AM EST Signed Prescriptions: Disp Refills Methocarbamol 500 MG Oral Tablet (Robamol) 90 Tab*0 Sig: Take 1 Tablet by mouth in the morning and 1 Tablet at noon and 1 Tablet before bedtime. Authorizing Provider: LUDY JACOBS * Telephone Encounter - Tamika Coleman LPN - 12/09/2024 8:09 AM ESTPending Prescriptions: Disp Refills Methocarbamol 500 MG Oral Tablet (Robamol) 120 Ta*0 * Telephone Encounter - Cornelia Sumner CCMA - 12/09/2024 7:32 AM EST Pending Prescriptions: Disp Refills Methocarbamol 500 MG Oral Tablet (Robamol) 120 Ta*0 documented in this encounter Plan of Treatment Upcoming Encounters Date Type Department Care Team (Late st Contact Info) Description 12/12/2024 2:00 PM EST Telemedicine Cardiology [facility], [place] [address] [place] [address] [place] [address], Pharmacist Cardiology [facility] [address] [place] [address] 12/27/2024 2:00 PM EST Home Visit [facility] at [facility] [address] [facility] [place] [address] Chiquis Vazquez, RN [address] [facility] [place] [address] 01/02/2025 3:30 PM EST Office Visit Pulmonary Medicine, [facility] [address] [place] [address] Sony Duong MD [address] [place] [address] 01/19/2025 4:00 PM EST Office Visit Family Practice [facility] 132 [facility] [place] [address] Arlene Ludy Zeina, ALIYAH [address] [place] [address] 02/09/2025 1:00 PM EDT Home Visit [facility], [facility] [address] [place] [address] Jerel Sam PA-C [address] [place] [address] 02/13/2025 3:30 PM EDT Telemedicine Care at Home [address] [place], [place] [phone] Lulu Yee PA-C [address] [place] [facility] [address] 05/15/2025 4:30 PM EDT Imaging Radiology [address] [facility] [place] [phone] Scheduled Procedures Name Priority Associated Diagnoses Date/Ti [...] 2) 03/06/2021 01/09/2021 CKD PHOS USE SMARTSET 78171 03/29/2022 03/29/2021, 0 03/28/2021 Albumin/Creatinine Ratio 09/29/2023 09/29/2022, 05/0 03/2021 Mammogram 03/02/2024 03/02/2023, 02/21, 11/04/2016, Additional history exists COVID-19 Vaccine ( season) 2024 10/21/2023, 09/26/2022, 09/26/2022, Additional history exists Cervical Cancer Screening 12/04/2024 Pap Smear 12/04/2024 12/04/2021, 02/21, 03/03/2016, Additional history exists GFR 01/30/2025 08/02/2024, 06/0 04/2024, 04/05/2024, Additional history exists CKD HGB USE SMARTSET 75952 08/02/202508/02, 08/02/2024, 04/28/2024, Additional history exists TSH [...] classification (HCC) Hypotension, unspecified hypotension type Old PR (myocardial infarction) Old myocardial infarction Lung nodules Other nonspecific abnormal finding of lung field Other chronic pain Advanced care planning/counseling discussion- Primary Other specified counseling Generalized anxiety disorder Major depressive disorder, recurrent episode, moderate (HCC) Major depressive disorder, recurrent episode, moderate Cerebellar hemangioma (HCC) Hemangioma of intracranial structures Atherosclerotic heart disease of [place] coronary artery with other forms of angina pectoris (HCC) Coronary artery disease involving [place] coronary artery of [place] heart without angina pectoris Acquired [...] Brown Spouse First Alternate Health Care Agent [place] [facility] Child Health Care Agent Care Teams Information Security Specialist Relationship Specialty Start Date End Date Ludy Jacobs CRNP [address] [place] [address] PCP - General Nurse Practitioner 04/20/24 documented as of this encounter
--- OUTSIDE RECORDS SUMMARY | 2025-01-15 19:46 | External Medical Summary | Summary of Care ---
Author Name Unknown Organization [facility] Address [address] [place] [address] Phone [phone] Care Team Providers Care Shop Router Name Role Phone Ludy Jacobs Primary Care Provider Reason for Visit * Precert (Within 10 days (routine)) - Authorized Specialty Diagnoses / Procedures Referred By Cruz bridges Referred To Contact Radiology Diagnoses Lung nodules Procedures PET CT SKULL BASE TO MID-THIGH FDG [facility] [address] [facility] [address] Phone: tel: fax: Referral ID Status Reason Start Date Expiration Date V isits Requested Visits Authorized [id number] Authorized 12/05/2024 [id number] Encounter Details Date Type Department Care Team (Latest Contact Info) Description 12/08/2024 2:56 PM EST - 12/08/2024 11:59 PM EST Hospital Encounter PET CT IMAGING, [facility] [address], [place] [id number] Arrived Discharge Disposition: Home - Self Care Allergies Active Allergy Reactions Criticality Noted Date [...] HOLDING CHAMBER DEVIIndications:C OPD with emphysema ([facility]) to be used with inhalers as instructed [...] group C, by GOLD 2017 classification ([facility]),Chronic hypoxemic respiratory failure ([facility]) Use with nebulized medications 1 Each 07/24/20 22 Active Full Kit Nebulizer SetIndications:CO PD, group C, by GOLD 2017 classification ([facility]),Chronic hypoxemic respiratory failure ([facility]) Use with nebulizer 1 Each 07/24/20 22 Active Syringe 25G X 1-1/2" 3 ML Use for intramuscular B12 injection 1 Each 11 10/02/20 22 Active Albuterol Sulfate (2.5 MG/3ML) 0.083% Inhalation Nebulization Solution (Proventil)Indica tions:COPD, group D, by GOLD 2017 classification ([facility]) Inhale 1 Vial via nebulizer 4 times a day as needed for Wheezing. Use in place of rescue inhaler. 360 mL 2 12/24/19 23 Active Midodrine HCl 5 MG Oral Tablet (Proamatine)Indic ations:Chronic diastolic congestive heart failure ([facility]) Take 1 Tablet by mouth in the [...] 24 Active Pregabalin 75 MG Oral Capsule (Lyrica)Elíastio ns:Complex regional pain syndrome type 1 of left upper extremity Take 1 Capsule by mouth in the morning and 1 Capsule at noon and 1 Capsule before bedtime. 90 Capsule 5 06/20/20 24 Active Albuterol Sulfate HFA 108 (90 Base) MCG/ACT Inhalation Aerosol SolutionIndicatio ns:COPD, group C, by GOLD 2017 classification ([facility]) Inhale 2 Puffs by mouth every 4 [...] Extended Release 24 Hour (toPROL XL)Indications:Ol d [place] (myocardial infarction) TAKE 1 AND 1/2 [...] group D, by GOLD 2017 classification ([facility]) 2.5 mg NEBULIZER ONCE PRN 04/28/2024 04/28/2025 [...] noted above Atherosclerotic heart diseas e of mohegan coronary artery with other forms of angina [...] (05/30/2022 4:32 PM EDT): Appointment scheduled with [facility] pain clinic [place] 07/02. Statin intolerance 01/24/2022 Osteopenia 01/08/2022 LYNDON [...] use aero chamber. Test performed by Flex SAIL CUTTER CPFT Circadian rhythm sleep disorder 09/17/2018 Nocturnal hypoxemia due to emphysema 07/30/2018 Adjustment disorder with mixed anxiety and depre ssed mood 07/04/2018 TERMINATED MEDICATION USAGE AGREEMENT 06/03/2018 Dupuytren's contracture of left hand 02/01/2018 Mixed incontinence urge and stress (male)(female ) 03/20/2017 Vitamin D deficiency 03/03/2016 Overview (03/03/2016): March 2015 = 13. Took high dose replacement. Due to repeat. Coronary artery disease invo lving mohegan coronary artery of mohegan heart without angina pectoris 11/12/2015 Assessment & [...] use aero chamber. Test performed by Flex SAIL CUTTER CPFT Assessment & Plan (05/30/2022 4:27 PM [...] use aero chamber. Test performed by Flex SAIL CUTTER CPFT COPD, group B, by GOLD 2017 [...] moderate 04/07/2012 10/05/2012 Overview (04/07/2012): PFT 03/2008 [facility] COPD, SEVERE 04/07/2012 05/04/2019 Overview: PER COPD PROTOCOL #24. PFT 03/2008 [facility] LAST PFT -06/07/12 Gastroesophageal reflux dise ase with esophagitis 04/30/2009 01/14/2022 Overview (05/15/2009): mild ADVANCE DIRECTIVE INFORMATION 12/02/2008 09/26/2024 Overview (12/02/2008): No, Advance Directive brochure offered , patient declined. COPD with emphysema 10/05/20 12 documented as of this encounter (statuses as of 12/09/2024) Immunizations Name Administration Dates Next Due COVID-19 mRNA, LNP-s, No Pre serve, 2-Dose Series ([facility]) 09/26/2022,11/18/2021,04/04/2021,02/28 COVID-19, MRNA-LNP, PF, 30 M CG/0.3 mL, 12 YRS AND ABOVE, IM ([employer]) 10/21/2023 Covid-19, Mrna, Lnp-s, Pf, B ivalent, [...] Description 12/12/2024 2:00 PM EST Telemedicine Cardiology [facility] [place], [place] [address] [place] [address] [place] [address], Pharmacist Cardiology [facility] [address] [place] [address] 12/27/2024 2:00 PM EST [facility] Visit [facility] [address] [place] [address] Chiquis Vazquez, RN [address] [facility] [place] [address] 01/02/2025 3:30 PM EST Office Visit Pulmonary Medicine, Health system [address] [place] [address] Sony Duong MD [address] [place] [address] 01/19/2025 4:00 PM EST Office Visit Family Practice Health system [address] [facility] [place] [address] Ludy Jacobs CRNP [address] [facility] [place] [address] 02/09/2025 1:00 PM EDT Home Visit [facility], [facility] 132 [facility] [place] [address] Jerel Sam PA-C 132 [facility] [place] [address] 02/13/2025 3:30 PM EDT Telemedicine Care at Home [address] [place] [address] Lulu Yee PA-C [address] [place] [address] 05/15/2025 4:30 PM EDT Imaging Radiology [address] 132 [facility] [place] [id number] Scheduled Procedures Name Priority Associated Diagnoses Date/Ti [...] 2) 03/06/2021 01/09/2021 CKD PHOS USE SMARTSET 48210 03/29/2022 03/29/2021, 0 03/28/2021 Albumin/Creatinine Ratio 09/29/2023 09/29/2022, 05/0 03/2021 Mammogram 03/02/2024 03/02/2023, 02/21, 11/04/2016, Additional history exists COVID-19 Vaccine ( season) 2024 10/21/2023, 09/26/2022, 09/26/2022, Additional history exists Cervical Cancer Screening 12/04/2024 Pap Smear 12/04/2024 12/04/2021, 02/21, 03/03/2016, Additional history exists GFR 01/30/2025 08/02/2024, 06/0 04/2024, 04/05/2024, Additional history exists CKD HGB USE SMARTSET 23626 08/02/202508/02, 08/02/2024, 04/28/2024, Additional history exists TSH [...] Procedure Name Priority Date/Time Associated Diagnosis Comments PET CT SKULL BASE TO MID-THIGH Routine 12/08/2024 4:46 PM EST Lung nodules documented in this encounter Results * PET CT SKULL BASE TO MID-THIGH FDG (12/08/2024 4:46 PM EST) Anatomical Region Laterality Modality Body, Chest, Abdomen, Pelvis Pos itron Emission Tomography (PET) 12/09/2024 10:1 0 AM EST Impressions 12/09/2024 10:08 AM EST IMPRESSION 1. No abnormal uptake within the chest. Continued follow-up via low-dose screening protocol would be recommended. 2. Mildly hypermetabolic nodule posterior to the lesser trochanteric region of the right femur. This is most consistent with a benign process, as in retrospect it was present on the exam dated 09/22/2012, but does demonstrate interval growth over the last 12 years. Possible etiologies would be a fibro myxoid tumor, peripheral nerve sheath tumor or other similar benign type process. Narrative 12/09/2024 10:08 AM EST EXAM PET CT SKULL BASE TO MID-THIGH FDG - 12/08/2024 4:46 pm HISTORY Spiculated lung nodule, COPD DATE OF DICTATION:12/09/[address] chest dated 12/07/2023 and 05/09/2024. TECHNIQUE Following the intravenous administration of approximately 9.35 mCi of FDG 18 and the oral administration of Water, PET/CT imaging was performed from the skull base to the mid thighs 61 minutes following the radiotracer injection. Low-dose CT was performed for anatomic localization and attenuation correction purposes only. The patient's glucose level at the time of radiotracer injection was 83mg/dL. This is a follow-up PET/CT for the above indication. Max mediastinal SUV 2.30. Max hepatic SUV 2.79. FINDINGS PET SCAN: Head / Neck: Diffuse muscular uptake throughout the neck, likely physiologic Chest: Stable biapical interstitial scarring with background level activity. Stable sub 6 mm nodule in the lateral left upper lobe without appreciable uptake. Abdomen: No abnormal uptake. Pelvis: No abnormal uptake. Musculoskeletal / Other: There is a 1.7 x 1.1 cm rounded well-circumscribed nodule posterior to the lesser trochanteric region of the right femur. It has a max SUV of 3.46. This is most consistent with a benign process, as in retrospect it was present on the exam dated 09/22/2012, but does demonstrate interval growth over the last 12 years. Diffuse areas of physiologic muscular activity noted. CT SCAN: Head / Neck: No acute process identified. Chest: Severe bullous emphysematous changes are present with multiple areas of interstitial scarring, most prominent in the lung apices. Small left upper lobe nodule is stable from previous examinations. No suspicious pulmonary lesions are identified within the limits of the study. Continued follow-up via low-dose screening protocol would be recommended. Abdomen: Vascular calcifications are present. Right-sided pelvic kidney, stable. Tiny splenules at the splenic hilum. Vascular calcifications present within the aorta and its branches. Pelvis: Atherosclerotic calcifications. Few scattered diverticula within the distal colon. No acute process identified. Musculoskeletal / Other: Degenerative changes are present throughout the bony structures. Procedure Note Vamsi Edwards MD - 12/09/[address] SKULL BASE TO MID-THIGH FDG - 12/08/2024 4:46 pm HISTORY Spiculated lung nodule, COPD DATE OF DICTATION:12/09/[address] chest dated 12/07/2023 and 05/09/2024. TECHNIQUE Following the intravenous administration of approximately 9.35 mCi of FDG18 and the oral administration of Water, PET/CT imaging was performed fromthe skull base to the mid thighs 61 minutes following the radiotracerinjection. Low-dose CT was performed for anatomic localization andattenuation correction purposes only. The patient's glucose level at thetime of radiotracer injection was 83mg/dL. This is a follow- up PET/CT forthe above indication. Max mediastinal SUV 2.30. Max hepatic SUV 2.79. FINDINGS PET SCAN: Head / Neck: Diffuse muscular uptake throughout the neck, likelyphysiologic Chest: Stable biapical interstitial scarring with background levelactivity. Stable sub 6 mm nodule in the lateral left upper lobe withoutappreciable uptake. Abdomen: No abnormal uptake. Pelvis: No abnormal uptake. Musculoskeletal / Other: There is a 1.7 x 1.1 cm roundedwell-circumscribed nodule posterior to the lesser trochanteric region ofthe right femur. It has a max SUV of 3.46. This is most consistent witha benign process, as in retrospect it was present on the exam dated1, but does demonstrate interval growth over the last 12 years.Diffuse areas of physiologic muscular activity noted. CT SCAN: Head / Neck: No acute process identified. Chest: Severe bullous emphysematous changes are present with multipleareas of interstitial scarring, most prominent in the lung apices. Smallleft upper lobe nodule is stable from previous examinations. Nosuspicious pulmonary lesions are identified within the limits of thestudy. Continued follow-up via low-dose screening protocol would berecommended. Abdomen: Vascular calcifications are present. Right-sided pelvic kidney,stable. Tiny splenules at the splenic hilum. Vascular calcificationspresent within the aorta and its branches. Pelvis: Atherosclerotic calcifications. Few scattered diverticula withinthe distal colon. No acute process identified. Musculoskeletal / Other: Degenerative changes are present throughout thebony structures. IMPRESSION IMPRESSION 1. No abnormal uptake within the chest. Continued follow-up via low- dosescreening protocol would be recommended. 2. Mildly hypermetabolic nodule posterior to the lesser trochantericregion of the right femur. This is most consistent with a benign process,as in retrospect it was present on the exam dated 09/22/2012, but doesdemonstrate interval growth over the last 12 years. Possible etiologieswould be a fibro myxoid tumor, peripheral nerve sheath tumor or othersimilar benign type process. Sony Duong MD [facility] NUCLEAR MED Final Result documented in this encounter Advance [...] File Name Relationship [facility] Lopez Brown Spouse First Alternate Health Care Agent [place] Adult Child Health Care Agent Care Teams Shop Router Relationship Specialty Start Date End Date Ludy Jacobs CRNP [address] [place] [address] PCP - General Nurse Practitioner 04/20/24 documented as of this encounter
--- OUTSIDE RECORDS SUMMARY | 2025-01-15 19:46 | External Medical Summary | Summary of Care ---
Author Name Unknown Organization [facility] Address [address] [facility] [address] Phone [phone] Care Team Providers Care Forming Process Worker Name Role Phone Ludy Jacobs Primary Care Provider Reason for Referral * Precert (Within 10 days (routine)) - Authorized Specialty Diagnoses / Procedures Referred By Contac t Referred To Contact Radiology Diagnoses Lung nodules Procedures PET CT SKULL BASE TO MID-THIGH FDG Sony Duong MD [address] [place] [address] Phone: tel: fax: Referral ID Status Reason Start Date Expiration Date V isits Requested Visits Authorized [id number] Authorized 12/05/[phone] Reason for Visit * Precert (Within 10 days (routine)) - Authorized Specialty Diagnoses / Procedures Referred By Contac t Referred To Contact Radiology Diagnoses Lung nodules Procedures PET CT SKULL BASE TO MID-THIGH FDG Sony Duong MD [address] [place] [address] Phone: tel: fax: Referral ID Status Reason Start Date Expiration Date V isits Requested Visits Authorized [id number] Authorized 12/05/[phone] Encounter Details Date Type Department Care Team (Latest Contact Info) Description 12/08/2024 2:56 PM EST - 12/08/2024 11:59 PM EST Hospital Encounter PET CT IMAGING, [facility] [address] [place] [address] Arrived Discharge Disposition: Home - Self Care [...] Documents, Reported on 12/05/2024 Nebulizers (NEBULIZER COMPRESSOR) [facility] Inhale via nebulizer. Along [...] [facility] [place]Chronic hypoxemic respiratory failure (HCC) Use with nebulizer 1 Each 07/24/20 22 [...] (heart failure with reduced ejection fraction) ([facility]) Take 1 Tablet by mouth in the morning and 1 Tablet before bedtime. 180 Tablet 12/15/19 24 Active Ondansetron HCl 4 MG [...] ns:COPD, group C, by GOLD 2017 classification (HCC) Inhale 2 Puffs by mouth every 4 [...] Extended Release 24 Hour (toPROL XL)Indications:Ol d [place] (myocardial infarction) TAKE 1 AND 1/2 TABLETS [...] NEBULIZER ONCE PRN 04/28/2024 04/28/2025 Acti ve sodium chloride 0.9 % flush/inj 10 mL 10 mL IV PUSH ONCE 12/08/2024 12/08/2024 Ended documented as of this encounter (statuses as [...] (05/30/2022 4:32 PM EDT): [facility] [place] 07/02. Statin intolerance 01/24/2022 Osteopenia 01/08/2022 LYNDON [...] use aero chamber. 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 Test performed by [employer] PLANNER CHIEF CPFT COPD, group B, by GOLD 2017 [...] 10/05/2012 Overview (04/07/2012): PFT 03/2008 [facility] COPD, SEVERE 04/07/2012 05/04/2019 Overview: PER COPD PROTOCOL #24. PFT 03/2008 [facility] LAST PFT -06/07/12 Gastroesophageal reflux dise ase with esophagitis 04/30/2009 01/14/2022 Overview (05/15/2009): mild ADVANCE DIRECTIVE INFORMATION 12/02/2008 09/26/2024 Overview (12/02/2008): No, Advance Directive brochure offered , patient declined. COPD with emphysema 10/05/20 12 documented as of this encounter (statuses as of 12/09/2024) Immunizations Name Administration Dates Next Due COVID-19 mRNA, LNP-s, No Pre serve, 2-Dose Series ([email or web address]) 09/26/2022,11/18/2021,04/04/2021,02/28 COVID-19, MRNA-LNP, PF, 30 M CG/0.3 mL, 12 YRS AND ABOVE, IM ([employer]-Comirnat[employer]) 10/21/2023 Covid-19, Mrna, Lnp-s, Pf, B ivalent, [...] Description 12/12/2024 2:00 PM EST Telemedicine Cardiology [facility], [place] [address], [place] [id number] [place], Pharmacist Cardiology [facility] [address] [place] [address] 12/27/2024 2:00 PM EST [facility], [facility] [place] [address] Chiquis Vazquez, RN 132 [facility] [place] [address] 01/02/2025 3:30 PM EST Office Visit Pulmonary Medicine, [facility] [address] [facility] [place] [address] Sony Duong MD [address] [address] 01/19/2025 4:00 PM EST Office Visit Family Practice [facility] [address] [facility] [place] [address] Ludy Jacobs CRNP 132 [facility] [place] [address] 02/09/2025 1:00 PM EDT Home Visit [facility], [facility] [address] [facility] [place] [address] Jerel Sam PA-C [address] [facility] [place] [address] 02/13/2025 3:30 PM EDT Telemedicine Care at Home [address] [place] [address] Lulu Yee PA-C [address] [place] [address] 05/15/2025 4:30 PM EDT Imaging Radiology [address] [place] [id number] Scheduled Procedures Name Priority Associated Diagnoses Date/Ti [...] 2) 03/06/2021 01/09/2021 CKD PHOS USE SMARTSET 53085 03/29/2022 03/29/2021, 0 03/28/2021 Albumin/Creatinine Ratio 09/29/2023 09/29/2022, 05/0 03/2021 Mammogram 03/02/2024 03/02/2023, 02/21, 11/04/2016, Additional history exists COVID-19 Vaccine ( season) 2024 10/21/2023, 09/26/2022, 09/26/2022, Additional history exists Cervical Cancer Screening 12/04/2024 Pap Smear 12/04/2024 12/04/2021, 02/21, 03/03/2016, Additional history exists GFR 01/30/2025 08/02/2024, 06/0 04/2024, 04/05/2024, Additional history exists CKD HGB USE SMARTSET 31273 08/02/202508/02, 08/02/2024, 04/28/2024, Additional history exists TSH [...] Routine 12/08/2024 4:46 PM EST Lung nodules GLUCOSE METER, POINT OF CARE DELL 12/08/2024 3:25 PM EST documented in this encounter Results * PET [...] othersimilar benign type process. Sony Duong MD [facility] NUCLEAR MED Final Result * GLUCOSE METER, POINT OF CARE (12/08/2024 3:25 PM EST) GLUCOSE - POCT 83 70 - 120 mg/dL 12/08/2024 3:31 PM EST [facility] [employer] Blood Whole blood specimen / Unknown 12/08/2024 3:25 PM EST 12/08/2024 3:31 PM EST us No Physician Data Unknown LAB POINT OF C ARE TEST DOCKED DEVICE UNSOLICITED RESULTS Final Result [facility] [address] [place] [address] documented in this encounter Visit Diagnoses Diagnosis Hypokalemia- Primary Hypopotassemia Chronic combined systolic and diastolic congestive heart failure (HCC) Chronic combined systolic and diastolic heart failure Pericardial effusion Unspecified disease of pericardium COPD, group C, by GOLD 2017 classification (HCC) Hypotension, unspecified hypotension type Old [place] (myocardial infarction) Old myocardial infarction Lung nodules [...] alone Sicca syndrome (HCC) Sicca syndrome Lung nodules Other nonspecific abnormal finding of lung field documented in this encounter Administered Medications Inactive Administered Medications - up to 3 most recent administrations Medication Order MAR Action Action Date Dose Rate Site fludeoxyglucose f-18 (Fdg) inj 9.35 millicurie 9.35 millicurie, Intravenous, ONCE, On Bambi 12/08/24 at 1542, For 1 dose, Radiology Medication Routing (Non-IR) Given 12/08/2024 3:30 PM EST 9.35 millicuries sodium chloride 0.9 % flush/inj 10 mL 10 mL, IV Push, ONCE, On Bambi 12/08/24 at 1542, For 1 dose, Do not flush if lock, PICC, or central line not in place; IV infusing or unable to flush., Radiology Medication Routing (Non-IR) Given 12/08/2024 3:30 PM EST 10 mL documented in this encounter Advance Directives * [...] Agents on File Name Relationship Healthcare Agent [facility] Communication Lopez Brown Spouse First Alternate Health Care Agent [place] Adult Child Health Care Agent Care Teams Forming Process Worker Relationship Specialty Start Date End Date Ludy Jacobs CRNP [address] [place] [address] PCP - General Nurse Practitioner 04/20/24 documented as of this encounter
--- OUTSIDE RECORDS SUMMARY | 2025-01-15 19:46 | External Medical Summary ---
Author Name Unknown Address Unknown Organization : Laboratory Report Ordering Provider Test Date Status NO,UNKNOWN 12/08/2024 15:25:25 Final Observation Date Value Abnormality Reference (Units ) Status Glucose Point of Care 12/08/2024 15:25:25 83 70-120 (mg/dL) Final Performing Location
--- OUTSIDE RECORDS SUMMARY | 2025-01-15 19:47 | External Medical Summary | Summary of Care ---
Author Name Unknown Organization [facility] Address [address] [place] [place] [address] Phone [phone] Care Team Providers Care Hydrographic Engineer Name Role Phone Ludy Jacobs Primary Care Provider Reason for Referral * Precert (Within 10 days (routine)) - Authorized Specialty Diagnoses / Procedures Referred By Cruz bridges Referred To Contact Radiology Diagnoses Lung nodules Procedures PET CT SKULL BASE TO MID-THIGH FDG [facility] [address] [facility] [address] Phone: tel: fax: Referral ID Status Reason Start Date Expiration Date V isits Requested Visits Authorized [id number] Authorized 12/05/[phone] Reason for Visit * Reason Comments Follow Up * Evaluate & Treat - Unlimited Visits (Within 3 days (urgent)) - Authorized Specialty Diagnoses / Procedures Referred By Cruz bridges Referred To Contact Pulmonary Diseases / Pulmonary Diagnoses Nodule of upper lobe of left lung COPD exacerbation (HCC) Chronic hypoxemic respiratory failure (HCC) Ludy Jacobs CRNP [address] [place] [address] Phone: tel: fax: Referral ID Status Reason Start Date Expiration Date Visits Requested Visits Authorized [id number] Authorized Specialty Services Required 12/02/2024 [id number] Encounter Details Date Type Department Care Team (Late st Contact Info) Description 12/05/2024 3:20 PM EST Office Visit Pulmonary Medicine, [facility] [address] [facility] [place] [address] Sony Duong MD [address] [place] [phone] Lung nodules* Allergies Active Allergy Reactions Criticality Noted Date [...] as of this encounter (statuses as of 12/05/2024) Medications VALVED HOLDING CHAMBER DEVIIndications:CO PD with [...] classification ([facility]),Chronic hypoxemic respiratory failure (HCC) Use with nebulized medications 1 Each 07/24/20 22 Active Full Kit Nebulizer SetIndications:EDI PROGRAMMER D, group C, by GOLD 2017 classification ([facility]),Chronic hypoxemic respiratory failure (HCC) Use with nebulizer [...] (HCC),HFrEF (heart failure with reduced ejection fraction) ([facility]) Take 1 Tablet by mouth [...] Tablet Extended Release 24 Hour (toPROL XL)Indications:Old AL (myocardial infarction) TAKE 1 AND 1/2 TABLETS BY MOUTH EVERY MORNING 135 Tablet 12/30/20 24 Active predniSONE 5 MG Oral Tablet [...] as of this encounter (statuses as of 12/05/2024) Active Problems Problem Noted Date Diagnosed Date [...] noted above Atherosclerotic heart diseas e of chippewa-cree coronary artery with other forms of angina [...] scheduled with [facility] pain clinic [place] 07/02. Statin intolerance 01/24/2022 Osteopenia 01/08/2022 LYNDON [...] use aero chamber. 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 Took high dose replacement. Due to repeat. Coronary artery disease invo lving chippewa-cree coronary artery of chippewa-cree heart without angina pectoris 11/12/2015 Assessment & Plan (01/22/2023 12:36 PM EST): Stable no angina -continue ASA, metoprolol xl, repatha. Can't tolerate delgado d/t low bp Dyslipidemia, goal LDL below 70 11/12/2015 Sicca syndrome 12/29/2014 Acquired hypothyroidism 12/29/2014 Assessment & Plan (01/22/2023 12:45 PM EST): Continue synthroid Old AL (myocardial infarction) 11/01/2013 Assessment & Plan (05/30/2022 [...] as of this encounter (statuses as of 12/05/2024) Resolved Problems Problem Noted Date Diagnosed Date [...] use aero chamber. Test performed by Flex LADLE HANDLER CPFT COPD, group B, by GOLD 2017 [...] Overview (04/07/2012): PFT 03/2008 [facility] COPD, SEVERE 04/07/2012 05/04/2019 Overview: PER COPD PROTOCOL #24. PFT 03/2008 [facility] LAST PFT -06/07/12 Gastroesophageal reflux dise ase with esophagitis 04/30/2009 01/14/2022 Overview (05/15/2009): mild ADVANCE DIRECTIVE INFORMATION 12/02/2008 09/26/2024 Overview (12/02/2008): No, Advance Directive brochure offered , patient declined. COPD with emphysema 10/05/20 12 documented as of this encounter (statuses as of 12/05/2024) Immunizations Name Administration Dates Next Due COVID-19 mRNA, LNP-s, No Pre serve, 2-Dose Series (GloNav) 09/26/2022,11/18/2021,04/04/2021,02/28 COVID-19, MRNA-LNP, PF, 30 M CG/0.3 [...] 45 S tarted: 1979 Smokeless Tobacco: Never Tobacco Cessation:Counseling Given: Not Answered Comments:12/05/24 currently smoking 5 cig/day. Alcohol Use [...] Sign Reading Time Taken Comments Blood Pressure 92/54 12/05/2024 3:15 PM EST Pulse 120 12/05/2024 3:15 PM EST Temperature 37.1 C (98.8 F) 12/05/2024 3 :15 PM EST Respiratory Rate 20 12/05/2024 3:15 PM EST Oxygen Saturation 96% 12/05/2024 3:1 5 PM EST O2 2LPM on demand, rest Inhaled Oxygen Concentration - - Weight 54.4 kg (120 lb) 12/05/2024 3:15 PM EST Height 165.1 cm (5' 5") 12/05/2024 3:15 PM EST Body Mass Index 19.97 12/05/2024 3:15 PM EST documented in this encounter Functional [...] documented in this encounter Progress Notes * Sony Duong MD - 12/05/2024 3:38 PM EST 12/05/2024 Pulmonary Medicine, [address] [id number] [phone] Marisa Brown 1965 female 59 year old Attending Physician Documentation: 59-year-old female, significant past medical history of COPD, chronic hypoxic respiratoryfailure on continuous home oxygen at 2 L nasal cannula continuous, CHF, active smoking statushypothyroidism, dyslipidemia, History of AL, cerebellar hemangioma, CAD, gastroparesis, complex regional pain syndrome CRPS with left upper extremity discomfort, last seen March 2023, now presenting for pulmonary medicine follow-up. Patient describes recent multiple episodes of COPD exacerbations requiring hospitalization at [facility]. Left upper lobe 1.6 cm spiculated nodule noted. Patient presents for further workup and evaluation. Current respiratory/bronchodilator regimen includes Trelegy, home oxygen, rescue albuterol, recently initiated on low-dose p.o. prednisone at 5 mg daily maintenance therapy. History of influenza a in February 2022 requiring intubation and mechanical ventilation at [facility]. CHF therapy has been optimized with Entresto, Jardiance and diuretic therapy. Bronchodilator therapy was reviewed. Patient wants inhaler therapy switched from Stiolto and Flovent to Trelegy. Compliant with home oxygen therapy. Denies nocturnal awakening due to shortness of breath, cough, wheezing. Smoking cessation counseling was provided. Continuing efforts to cut down/stop smoking, currently down to less than half pack daily. Physical examination significant for class 1 throat, expiratory wheezing, scattered coarse rales, no dullness, regular cardiac rhythm, no evidence of volume overload. Reportedly, latest CT scan chest at [facility] showed 1.6 cm spiculated nodule left upper lobe. PET scan and evaluation for tissue diagnostic workup based on PET scan results recommended. CT chest February 2023 showed postsurgical changes in left lung apex along with advanced emphysema with architectural vascular distortion. Plan to proceed with PET scan and evaluation for tissue diagnostic workup based on PET scan results. Meanwhile, continue with Trelegy inhaler, 2 L nasal cannula oxygen continuous, continue efforts regarding smoking cessation and LD CT screening to continue per protocol. Pulmonary clinic follow-up recommended in 4 weeks. Assessment Spiculated Nodule Left upper lobe noted on [facility] eval PET scan Plan for tissue diagnostic workup based on PET scan results recommended It is noted that patient had a left upper lobe scar that had been noted in the past on LDCT screening as well. [facility] CT scan chest films were requested. Chronic respiratory failure with hypoxia Continue 2 LPM Maintain oxygen saturations between 89-94% Copd, group D, MMRC 4, CAT 25 Trelegy inhaler. Frequent Hospitalizations at [facility] for COPD exacerbations Currently on maintenance PO Prednisone at 5 mg Daily Remote History of pneumothroax, recurrent, with talc pleurodesis in her 20s Tobacco use Encourage full cessation -- Currently down at less than 1/2 ppd Currently in [facility], next LDCT next year Combined systolic and diastolic heart failure with reduced EF Continue following with cardiology and taking diuretics and medications as prescribed All questions and concerns answered to patient's apparent satisfaction. ? JANE spiculated nodule COPD Active Smoker Chronic Hypoxic Resp Failure Plan: PET Scan F/u CT chest 12/07/2023 Get [facility] CT chest 08/2024 ? JANE Nodule vs scar C/w PO low dose prednisone C/w Trelegy C/w Home Oxygen 2 L Cont Smoking Cessation Counselling F/u 4 weeks Follow Up: Return in about 4 weeks (around 01/02/2025) for Clinic Visit. | For: Clinic Visit | Check-out note: ? JANE spiculated nodule COPD Active Smoker Chronic Hypoxic Resp Failure Plan: PET Scan F/u CT chest 12/07/2023 Get [facility] CT chest 08/2024 ? JANE Nodule vs scar C/w PO low dose prednisone C/w Trelegy C/w Home Oxygen 2 L Cont Smoking Cessation Counselling F/u 4 weeks I spent a total of 40-54 minutes (exact time 45 mins) on the date of service in preparation, delivery, and documentation of the care provided to Marisa Brown excluding any time spent in the performance of separately billed services or time spent by another provider/QHP. Sony Duong MD Data review: Following reports, and data as outlined below was personally reviewed and interpreted by myself. Subjective CC: Chief Complaint Patient presents with Follow Up HPI: Nursing Notes: Tricia Cardona LPN 12/05/24 1524 Addendum Pt is here for pulmonary f/u. Interm History/Respiratory Symptoms Cough: frequent; typically dry, occasional clear phlegm Hemoptysis: no Sinus Symptoms: no Hospitalizations: [facility] 11/11-11/13/24 [facility] ED Trips: 11/11/24 Triggers: exertion, cold weather, hot/humid weather Nocturnal: occasional cough CPAP/BiPAP/O2: O2 2LPM continuous DME Supplier: [facility] Flu Vaccine: 2023 Pneumovax: yes, unsure of dates Prevnar: yes, unsure of dates COVID 19: x6 Mmrc Cat Question 12/05/2024 3:21 PM EST - Filed by Tricia Cardona LPN When do you become breathless? (4) I am too breathless to leave the house or I am breathless when dressing How frequently do you cough? (4) Do you have phlegm in your chest? (1) Is your chest tight? (1) How breathless do you become when walking up a hill or steps? (5) - When I walk up a hill or one flight of stairs I am very breathless How limited are you doing activities at home? (5) - I am very limited doing activities at home How confident are you leaving home with your lung condition? (0) - I am confident leaving my home despite my condition How soundly do you sleep? (1) How much energy do you have? (3) Total MMRC Score (range: 0 - 4) 4 Total CAT Score (range: 0 - 40) 20 Objective Filed Vitals: 12/05/24 1515 BP: 92/54 Pulse: 120 Resp: 20 Temp: 37.1 C (98.8 F) TempSrc: Tympanic SpO2: 96% Weight: 54.4 kg (120 lb) Height: 1.651 m (5' 5") Exam: Const: No signs of acute distress present. Head/Face: Normal on inspection. Eyes: Conjunctivae clear. Pupils equal round and reactive to light. ENMT: Oropharynx: No erythema, exudate or masses. Posterior pharynx is normal. Neck: Supple and symmetric. Resp: Respiratory examination as outlined above CV: Rate is regular. Rhythm is regular. No heart murmur appreciated. Extremities: No edema of the lower limbs bilaterally. Skin: Skin is warm and dry. Neuro: Coordination normal. No involuntary movement. Psych: Patient's attitude is cooperative. Mood is normal. Affect is normal. Tests reviewed with the patient: No imaging results in the last 6 months Available Radiologic data was reviewed by me in PACS. The images were shown to the patient and findings were discussed with the patient. HOME MEDICATIONS: predniSONE 5 MG Oral Tablet (Deltasone) Metoprolol Succinate ER 50 MG Oral Tablet Extended Release 24 Hour (toPROL XL) Methocarbamol 500 MG Oral Tablet (Robamol) Ipratropium-Albuterol 0.5-2.5 (3) MG/3ML Inhalation Solution (Duoneb) LORazepam 0.5 MG Oral Tablet (Ativan) Albuterol Sulfate HFA 108 (90 Base) MCG/ACT Inhalation Aerosol Solution Pregabalin 75 MG Oral Capsule (Lyrica) PARoxetine HCl 40 MG Oral Tablet (pAXil) Repatha SureClick 140 MG/ML Subcutaneous Solution Auto-injector (evolocumab) Spironolactone 25 MG Oral Tablet (Aldactone) Synthroid 75 MCG Oral Tablet Folic Acid 1 MG Oral Tablet Omeprazole 20 MG Oral Capsule Delayed Release (PriLOSEC) Ondansetron HCl 4 MG Oral Tablet (Zofran) Empagliflozin 10 MG Oral Tablet (Jardiance) Entresto 24-26 MG Oral Tablet (sacubitril-valsartan 24-26 mg per tab) Midodrine HCl 5 MG Oral Tablet (Proamatine) Albuterol Sulfate (2.5 MG/3ML) 0.083% Inhalation Nebulization Solution (Proventil) Syringe 25G X 1-1/2" 3 ML Full Kit Nebulizer Set Nebulizer Device Acetaminophen 325 MG Oral Tablet (Tylenol) aspirin enteric coated 81 MG TBEC Nebulizers (NEBULIZER COMPRESSOR) [facility] GAS VALVED HOLDING CHAMBER JASPAL Albuterol Sulfate (Proventil) (2.5 MG/3ML) 0.083% inhalation solution 2.5 mg ROS: No reported history of Hemoptysis, Hematemesis, Melena No reported history of Dysuria, Hematuria, Flank Pain No reported history of chronic headache, seizures No reported history of Fall or trauma . No reported history of recent change in weight or appetite. Past Medical History: Diagnosis Date Acquired hypothyroidism 12/29/2014 Acute inferior myocardial infarction (HCC) 02/12/2011 Atherosclerotic heart disease of chippewa-cree coronary artery with other forms of angina pectoris ([facility]) 11/12/2022 Centrilobular emphysema ([facility]) 08/19/2019 09/06/19 In Check dial performed to assess inhaler technique:Name of inhaler Albuterol Pass: Yes at55L/min and Trelegy Ellipta Pass: Yes at 45L/min. Encouraged to take nice slow deep breaths and encouraged to use aero chamber. Test performed by Flex LADLE HANDLER CPFT Cerebellar hemangioma ([facility]) 12/15/2012 MRI 2009 Chronic combined systolic and diastolic congestive heart failure ([facility]) 09/22/2019 COPD (chronic obstructive pulmonary disease) ([facility]) COPD exacerbation ([facility]) 09/06/19 In Check dial performed to assess inhaler technique:Name of inhaler Albuterol Pass: Yes at55L/min and Trelegy Ellipta Pass: Yes at 45L/min. Encouraged to take nice slow deep breaths and encouraged to use aero chamber. Test performed by Flex CAR CPFT COPD with emphysema ([facility]) Degeneration of intervertebral disc Endometriosis Esophageal reflux 04/30/2009 mild Female infertility History of pneumothorax 07/30/2018 Hypokalemia Hypotension Irritable bowel syndrome Neurofibromatosis, type 2 ([facility]) Opioid Usage: appropriate, by Rheumatology 10/15/2012 Osteopenia 01/08/2022 repeat DEXA in 2023 Pain management contract signed 04/02/2021 DR Mónica Chamberlain Pericardial effusion PTSD (post-traumatic stress disorder) 10/30/2022 Recurrent spontaneous pneumothorax once in each side at age 24 S/P angioplasty with stent 02/12/2011 Sicca syndrome (HCC) 12/29/2014 Stage 3a chronic kidney disease (HCC) 01/14/2022 Tobacco use disorder 12/02/2008 Past Surgical History: Procedure Laterality Date DELIVERY 1983 and 2003 Delivery Only COLONOSCOPY, DIAGNOSTIC (RECTUM) 07/28/2014 COLONOSCOPY FLEXIBLE PROXIMAL DIAGNOSTIC performed by Andrea Owens MD at ENDOSCOPY [facility] COLONOSCOPY, DIAGNOSTIC (RECTUM) 11/28/2019 adenomatous polyp, repeat 3 yrs / [facility] COLONOSCOPY, DIAGNOSTIC (RECTUM) N/A 04/30/2023 [facility]< colonoscopy / prep-fair, multi polyps in descending / diverticulosis in sigmoid, internal hemorrhoids / biopsies benign adenomatous polyps / 5 year recall / CONIZATION OF CERVIX EGD, FLEXIBLE, DIAGNOSTIC 07/28/2014 ESOPHAGOGASTRODUODENOSCOPY (EGD), FLEXIBLE, TRANSORAL, DIAGNOSTIC performed by Andrea Owens MD at ENDOSCOPY [facility] EGD, FLEXIBLE, W/BIOPSY 04/30/2009 esophageal reflux(mild) and mild gastric inflammation INJECT DX/THER SUBSTANCE INTERLAMINAR CERVICAL/THORACIC W IMAGE GUIDE 10/27/2019 INJECTION SPINE LUMBAR CERVICAL OR THORACIC performed by Ashkan Gan DO at OR [facility] LAPAROSCOPY DIAGNOSTIC 1992 and 1997 Laparoscopy for Fertility problems [facility] LIGATE/CUT OVIDUCT(S) OTHER (INFORMATION) Rectal Vaginal fistula x 3: 2x [facility] 1 x [facility] REMOVAL OF TONSILS, UNDER AGE 11 1970 Tonsillectomy ([place], [place]) REMOVE WRIST GANGLION Left 03/14/2019 EXCISION GANGLION WRIST performed by Eloisa Collins DO at OR [facility] REPAIR INITIAL INCISIONAL OR VENTRAL HERNIA; REDUCIBLE 1996 Incisional Hernia Repair,Reducible [facility] THORACOTOMY WITH REPAIR OF LUNG 1988 and 1990 Right side 2x's pneumothorax and thoracotomy and Left side 1x pneumothorax and some type of tx [facility] Social History Socioeconomic History Marital status: Spouse [...] on disability Social Needs Financial Resource Strain: Low Risk (09/27/2024) Financial Resource Strain Do you have any trouble paying for your medications, or do you think you might in the future? (Adult - for ages 18 years and over): No Food Insecurity: No Food Insecurity (09/27/2024) Food Insecurity Do you need food for this week? (Adult - for ages 18 years and over): No Transportation Needs: No Transportation Needs (09/27/2024) Transportation Needs Has lack of transportation kept you from medical appointments, meetings, work, or from getting things needed for daily living? Check all that apply. (Adult - for ages 18 years and over): No Social Connections: Socially Integrated (09/27/2024) Social Connections How often do you feel lonely or isolated from those around you? (Adult - for ages 18 years and over): Never Housing Stability: Low Risk (09/27/2024) Housing Stability Do you currently live in a penitentiary or have no steady place to sleep at night? (Adult - for ages 18 years and over): No Are you homeless or worried that you might be in the future? (Adult - for ages 18 years and over): No Family History Problem Relation Name Age of [...] Grandfather (Paternal) ? Heart Disorder Grandfather (Paternal) Review of patient's allergies indicates: Allergen Reactions Toradol [Ketorolac Tromethamine] Adhesive Tape Other reaction(s): BANDAIDS SKIN ABRASION Colchicine N/v/d Crestor [Rosuvastatin] Went into kidney failure Demerol Depression Ibuprofen Meperidine And Related depression Nsaids Prednisone Other Reaction(s): Patient Reports Contraindication in Kidney Failure/SEE NOTES Sulfa Antibiotics Rash documented in this encounter Nursing Notes * Tricia Cardona LPN - 12/05/2024 3:11 PM EST Pt is here for pulmonary f/u. Interm History/Respiratory Symptoms Cough: frequent; typically dry, occasional clear phlegm Hemoptysis: no Sinus Symptoms: no Hospitalizations: [facility] 11/11-11/13/24 [facility] ED Trips: 11/11/24 Triggers: exertion, cold weather, hot/humid weather Nocturnal: occasional cough CPAP/BiPAP/O2: O2 2LPM continuous DME Supplier: [facility] Flu Vaccine: 2023 Pneumovax: yes, unsure of dates Prevnar: yes, unsure of dates COVID 19: x6 Mmrc Cat Question 12/05/2024 3:21 PM EST - Filed by Tricia Cardona LPN When do you become breathless? (4) I am too breathless to leave the house or I am breathless when dressing How frequently do you cough? (4) Do you have phlegm in your chest? (1) Is your chest tight? (1) How breathless do you become when walking up a hill or steps? (5) - When I walk up a hill or one flight of stairs I am very breathless How limited are you doing activities at home? (5) - I am very limited doing activities at home How confident are you leaving home with your lung condition? (0) - I am confident leaving my home despite my condition How soundly do you sleep? (1) How much energy do you have? (3) Total MMRC Score (range: 0 - 4) 4 Total CAT Score (range: 0 - 40) 20 documented in this encounter Plan of Treatment Upcoming Encounters Date Type Department Care Team (Late st Contact Info) Description 12/07/2024 4:30 PM EST Imaging Radiology [address] [place] [id number] 12/12/2024 2:00 PM EST Telemedicine Cardiology [facility] [place] [address] [place] [place] [address] [facility], Pharmacist Cardiology [facility] [address] [place] [address] 01/19/2025 4:00 PM EST Office Visit [facility] [address] [facility] [place] [address] Ludy Jacobs CRNP [address] [place] [address] 02/13/2025 3:30 PM EDT Telemedicine Care at Home [address] [facility] [place] [address] Lulu Yee PA-C [address] [place] [facility] [place] [address] Scheduled Orders Name Type Priority Associated Diagnoses Orde r Schedule PET CT SKULL BASE TO MID-THIGH FDG Medical Imaging Routine Lung nodules Expected: 12/05/2024, Expires: 01/05/2026 Scheduled Procedures Name Priority Associated Diagnoses Date/Ti [...] 2) 03/06/2021 01/09/2021 CKD PHOS USE SMARTSET 23737 03/29/2022 03/29/2021, 0 03/28/2021 Albumin/Creatinine Ratio 09/29/2023 09/29/2022, 05/0 03/2021 Mammogram 03/02/2024 03/02/2023, 04, 11/04/2016, Additional history exists COVID-19 Vaccine ( season) 2024 10/21/2023, 09/26/2022, 09/26/2022, Additional history exists Cervical Cancer Screening 12/04/2024 Pap Smear 12/04/2024 12/04/2021, 02/21, 03/03/2016, Additional history exists GFR 01/30/2025 08/02/2024, 06/0 04/2024, 04/05/2024, Additional history exists CKD HGB USE SMARTSET 95915 08/02/202508/02, 08/02/2024, 04/28/2024, Additional history exists TSH [...] classification (HCC) Hypotension, unspecified hypotension type Old AL (myocardial infarction) Old myocardial infarction Lung nodules Other nonspecific abnormal finding of lung field Other chronic pain Advanced care planning/counseling discussion- Primary Other specified counseling Generalized anxiety disorder Major depressive disorder, recurrent episode, moderate (HCC) Major depressive disorder, recurrent episode, moderate Cerebellar hemangioma (HCC) Hemangioma of intracranial structures Atherosclerotic heart disease of chippewa-cree coronary artery with other forms of angina pectoris (HCC) Coronary artery disease involving chippewa-cree coronary artery of chippewa-cree heart without angina pectoris Acquired hypothyroidism Unspecified [...] of lung field documented in this encounter Advance Directives * [...] Agents on File Name Relationship Healthcare Agent [facility] p Communication Lopez Brown Spouse First Alternate Health Care Agent [place] Adult Child Health Care Agent Care Teams Hydrographic Engineer Relationship Specialty Start Date End Date Ludy Jacobs CRNP [address] [place] [address] PCP - General Nurse Practitioner 04/20/24 documented as of this encounter
--- OUTSIDE RECORDS SUMMARY | 2025-01-15 19:47 | External Medical Summary | Summary of Care ---
Author Name Unknown Organization [facility] Address [address] [place] [address] Phone [phone] Care Team Providers Care Screener And Blender Name Role Phone Ludy Jacobs Zeina LY Primary Care Provider Reason for Visit * Reason Onset Date Comments [facility]: Enrollment 12/07/2024 Encounter Details Date Type Department Care Team (Late st Contact Info) Description 12/07/2024 Telephone [facility] [place] [address] [place] [address] Thomas Whitmore OSA [address] [place] [address] [facility]: Enrollment Allergies Active Allergy Reactions Criticality Noted Date [...] as of this encounter (statuses as of 12/07/2024) Medications VALVED HOLDING CHAMBER DEVIIndications:[place] PD with [...] C, by GOLD 2017 classification ([facility]),Chronic hypoxemic respiratory failure ([facility]) Use with nebulized medications 1 Each 07/24/20 22 Active Full Kit Nebulizer SetIndications: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 D, group C, by GOLD 2017 classification ([facility]),Chronic hypoxemic respiratory failure ([facility]) Use with nebulizer 1 Each 07/24/20 22 Active Syringe 25G X 1-1/2" 3 ML Use for intramuscular B12 injection 1 Each 10/02/20 22 Active Albuterol Sulfate (2.5 MG/3ML) 0.083% Inhalation Nebulization Solution (Proventil)Indicat ions:COPD, group D, by GOLD 2017 classification ([facility]) Inhale 1 Vial via nebulizer 4 times [...] failure with reduced ejection fraction) ([facility]) Take 1 Tablet by mouth in the [...] C, by GOLD 2017 classification ([facility]) Inhale 2 Puffs by mouth every 4 [...] as of this encounter (statuses as of 12/07/2024) Active Problems Problem Noted Date Diagnosed Date [...] noted above Atherosclerotic heart diseas e of [place] coronary artery with other forms of angina [...] with [facility] [place] 07/02. Statin intolerance 01/24/2022 Osteopenia 01/08/2022 LYNDON [...] use aero chamber. Test performed by Flex LAUNDRY OPERATOR FINISHING CPFT Circadian rhythm sleep disorder 09/17/2018 Nocturnal hypoxemia due to emphysema 07/30/2018 Adjustment disorder with mixed anxiety and depre ssed mood 07/04/2018 TERMINATED MEDICATION USAGE AGREEMENT 06/03/2018 Dupuytren's contracture of left hand 02/01/2018 Mixed incontinence urge and stress (male)(female ) 03/20/2017 Vitamin D deficiency 03/03/2016 Overview (03/03/2016): March 2015 = 13. Took high dose replacement. Due to repeat. Coronary artery disease invo lving [place] coronary artery of [place] heart without angina pectoris 11/12/2015 Assessment & [...] as of this encounter (statuses as of 12/07/2024) Resolved Problems Problem Noted Date Diagnosed Date [...] use aero chamber. Test performed by Flex LAUNDRY OPERATOR FINISHING CPFT Assessment & Plan (05/30/2022 4:27 PM [...] use aero chamber. Test performed by Flex LAUNDRY OPERATOR FINISHING CPFT COPD, group B, by GOLD 2017 [...] moderate 04/07/2012 10/05/2012 Overview (04/07/2012): PFT 03/2008 [facility] COPD, SEVERE 04/07/2012 05/04/2019 Overview: PER COPD PROTOCOL #24. PFT 03/2008 [facility] LAST PFT -06/07/12 Gastroesophageal reflux dise ase with esophagitis 04/30/2009 01/14/2022 Overview (05/15/2009): mild ADVANCE DIRECTIVE INFORMATION 12/02/2008 09/26/2024 Overview (12/02/2008): No, Advance Directive brochure offered , patient declined. COPD with emphysema 10/05/20 12 documented as of this encounter (statuses as of 12/07/2024) Immunizations Name Administration Dates Next Due COVID-19 mRNA, LNP-s, No Pre serve, 2-Dose Series ([employer]) 09/26/2022,11/18/2021,04/04/2021,02/28 COVID-19, MRNA-LNP, PF, 30 M CG/0.3 mL, 12 YRS AND ABOVE, IM ([facility]) 10/21/2023 Covid-19, Mrna, Lnp-s, Pf, B ivalent, 30 Mcg, IM, 12 yrs and above ([employer]) 09/26/2022 HEPATITIS B VACCINE, RECOMB, 20 MCG/ML, [...] No 09/27/2024 Does the household have a [facility] source [facility] income? (Household - for [...] 5:37 AM EDT Valentino Child, RN * Because of a physical, mental, [...] Telephone Encounter - Thomas Whitmore OSA - 12/07/2024 8:38 AM EST [facility] Enrollment 12/07 - attempt 3 - left a message and [facility] letter sent. documented in this encounter Plan of Treatment Upcoming Encounters Date Type Department Care Team (Late st Contact Info) Description 12/07/2024 4:30 PM EST Imaging Radiology [address] [facility] [place] [phone] 12/08/2024 3:00 PM EST Appointment PET CT IMAGING, [facility] [address] [place] [address] 12/12/2024 2:00 PM EST Telemedicine Cardiology [facility], [place] [address] [facility] [place] [place] [address] [facility], Pharmacist Cardiology [facility] [address] [place] [address] 01/02/2025 3:30 PM EST Office Visit Pulmonary Medicine, [facility] [address] [place] [id number] Sony Duong MD [address] [facility] [place] [phone] 01/19/2025 4:00 PM EST Office Visit Family Practice [facility] [address] [place] [address] Ludy Jacobs CRNP [address] [place] [id number] 02/13/2025 3:30 PM EDT [facility] Home [address] [place] [address] Lulu Yee PA-C [address], [place] [id number] 05/15/2025 4:30 PM EDT Imaging Radiology [address] [place] [phone] Scheduled Procedures Name Priority Associated Diagnoses Date/Ti [...] 2) 03/06/2021 01/09/2021 CKD PHOS USE SMARTSET 35791 03/29/2022 03/29/2021, 0 03/28/2021 Albumin/Creatinine Ratio 09/29/2023 09/29/2022, 05/0 03/2021 Mammogram 03/02/2024 03/02/2023, 02/21, 11/04/2016, Additional history exists COVID-19 Vaccine ( season) 2024 10/21/2023, 09/26/2022, 09/26/2022, Additional history exists Cervical Cancer Screening 12/04/2024 Pap Smear 12/04/2024 12/04/2021, 02/21, 03/03/2016, Additional history exists GFR 01/30/2025 08/02/2024, 060 04/2024, 04/05/2024, Additional history exists CKD HGB USE SMARTSET 48759 08/02/202508/02, 08/02/2024, 04/28/2024, Additional history exists TSH [...] Brown Spouse First Alternate Health Care Agent [place] Adult Child Health Care Agent Care Teams Screener And Blender Relationship Specialty Start Date End Date Ludy Jacobs CRNP [address] [place] [phone] PCP - General Nurse Practitioner 04/20/24 documented as of this encounter
--- OUTSIDE RECORDS SUMMARY | 2025-01-15 19:47 | External Medical Summary | Summary of Care ---
Author Name Unknown Organization [facility] Address [address] [place] [address] Phone [phone] Care Team Providers Care Senior Logistics Manager Name Role Phone Ludy Jacobs Primary Care Provider Reason for Referral * Social Care (Within 30 days (routine)) - Authorized Specialty Diagnoses / Procedures Referred By Cruz bridges Referred To Contact HOME CARE / [facility] Diagnoses Chronic hypoxemic respiratory failure (HCC) COPD, frequent exacerbations (HCC) Ludy Jacobs CRNP [address] [place] [address] Phone: tel: fax: Referral ID Status Reason Start Date Expiration Date Visits Requested Visits Authorized [id number] Authorized Specialty Services Required 12/02/2024 999 999 Question Answer Referral Priority Within 30 days (routine) Where should this appointment be scheduled? [facility] Does patient have multiple co-morbid conditions? Yes Does patient have P insurance? Yes Comments Is referral coming from Care Coordination and Integration? Yes Best source of contact for the patient:Patient Patient has remote monitoring device(s): Yes Current Health Connectivity in the home: Yes * Precert (Within 10 days (routine)) - Authorized Specialty Diagnoses / Procedures Referred By Cruz bridges Referred To Contact Radiology Diagnoses Nodule of upper lobe of left lung Procedures CT CHEST WO CONTRAST Ludy Jacobs CRNP [address] [place] [address] Phone: tel: fax: Referral ID Status Reason Start Date Expiration Date V isits Requested Visits Authorized [id number] Authorized 12/02/2024 999 999 * Evaluate & Treat - Unlimited Visits (Within 3 days (urgent)) - Authorized Specialty Diagnoses / Procedures Referred By Cruz t Referred To Contact Pulmonary Diseases / Pulmonary Diagnoses Nodule of upper lobe of left lung COPD exacerbation (HCC) Chronic hypoxemic respiratory failure (HCC) Ludy Jacobs CRNP [address] [place] [address] Phone: tel: fax: Referral ID Status Reason Start Date Expiration Date Visits Requested Visits Authorized [id number] Authorized Specialty Services Required 12/02/2024 999 999 Question Answer Referral Priority Within 3 days (urgent) Where should this appointment be scheduled? [facility] Reason for Referral? Other Comments COPD SPICULATED judith 1.6 cm nodule Reason for Visit * Reason Onset Date Comments Hospital Follow-Up 12/02/2024 [facility]-COPD exa cerbation Encounter Details Date Type Department Care Team (Latest Contact Info) Description 12/02/2024 11:00 AM EST Office Visit Family [facility] [address] [place] [address] Ludy Jacobs CRNP [address] [place] [address] Hospital discharge follow-up*; Nodule of upper lobe of left lung; Chronic hypoxemic respiratory failure (HCC); COPD exacerbation (HCC); COPD, group D, by GOLD 2017 classification (HCC); Chronic combined systolic and diastolic congestive heart failure (HCC); 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 (HCC); COPD, frequent exacerbations (HCC); 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); MDD (major depressive disorder), recurrent episode, mild (HCC); Chronic obstructive pulmonary disease with (acute) exacerbation (HCC); Cerebellar hemangioma (HCC); Benign hypertensive heart and CKD, stage 3 (GFR 30-59), w CHF (HCC); Chronic kidney disease, stage 3b (HCC); Sicca syndrome (HCC); PTSD (post-traumatic stress disorder); Hypertensive chronic kidney disease with stage 1 through stage 4 chronic kidney disease, or unspecified chronic kidney disease; Old MT (myocardial infarction); Acquired hypothyroidism Allergies Active Allergy Reactions Criticality Noted Date [...] as of this encounter (statuses as of 12/02/2024) Medications VALVED HOLDING CHAMBER DEVIIndications:CO PD with [...] Documents, Reported on 12/24/2022 Nebulizers (NEBULIZER COMPRESSOR) [facility] Inhale via nebulizer. Along with supply . Use as directed. Dx code- J44.9 and J43.9 1 Each 10/05/20 18 Active aspirin enteric coated 81 MG TBEC Take 1 Tablet by mouth every morning. Active Acetaminophen 325 MG Oral Tablet (Tylenol) Take 1 Tablet by mouth every 6 hours as needed. Active Nebulizer DeviceIndications: COPD, group C, by GOLD 2017 classification ([facility]),Chronic hypoxemic respiratory failure (HCC) Use with nebulized medications 1 Each 07/24/20 Active Full Kit Nebulizer SetIndications:MANAGER EDUCATIONAL D, group C, by GOLD 2017 classification ([facility]),Chronic hypoxemic respiratory failure (HCC) Use with nebulizer 1 Each 07/24/20 Active Syringe 25G X 1-1/2" 3 ML Use for intramuscular B12 injection 1 Each 10/02/20 22 Active Albuterol Sulfate (2.5 MG/3ML) 0.083% Inhalation Nebulization Solution (Proventil)Indicat ions:COPD, group D, by GOLD 2017 classification ([facility]) Inhale 1 Vial via nebulizer [...] (HCC),HFrEF (heart failure with reduced ejection fraction) ([facility]) Take 1 Tablet by mouth [...] s:COPD, group C, by GOLD 2017 classification ([facility]) Inhale 2 Puffs by mouth [...] Tablet Extended Release 24 Hour (toPROL XL)Indications:Old MT (myocardial infarction) TAKE 1 AND 1/2 TABLETS [...] as of this encounter (statuses as of 12/02/2024) Active Problems Problem Noted Date Diagnosed Date [...] noted above Atherosclerotic heart diseas e of twenty-nine palms coronary artery with other forms of angina [...] 4:32 PM EDT): Appointment scheduled with [facility] pain clinic [place] 07/02. Statin intolerance 01/24/2022 Osteopenia 01/08/2022 LYNDON [...] use aero chamber. 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 Took high dose replacement. Due to repeat. Coronary artery disease invo lving twenty-nine palms coronary artery of twenty-nine palms heart without angina pectoris 11/12/2015 Assessment & Plan (01/22/2023 12:36 PM EST): Stable no angina -continue ASA, metoprolol xl, repatha. Can't tolerate delgado d/t low bp Dyslipidemia, goal LDL below 70 11/12/2015 Sicca syndrome 12/29/2014 Acquired hypothyroidism 12/29/2014 Assessment & Plan (01/22/2023 12:45 PM EST): Continue synthroid Old MT (myocardial infarction) 11/01/2013 Assessment & Plan (05/30/2022 [...] as of this encounter (statuses as of 12/02/2024) Resolved Problems Problem Noted Date Diagnosed Date [...] use aero chamber. Test performed by [employer] PICKER CPFT Assessment & Plan (05/30/2022 4:27 PM [...] use aero chamber. Test performed by [employer]CH[employer] OR PICKER CPFT COPD, group B, by GOLD 2017 [...] 04/07/2012 10/05/2012 Overview (04/07/2012): PFT 03/2008 [facility] COPD, SEVERE 04/07/2012 05/04/2019 Overview: PER COPD PROTOCOL #24. PFT 03/2008 [facility] LAST PFT -06/07/12 Gastroesophageal reflux dise ase with esophagitis 04/30/2009 01/14/2022 Overview (05/15/2009): mild ADVANCE DIRECTIVE INFORMATION 12/02/2008 09/26/2024 Overview (12/02/2008): No, Advance Directive brochure offered , patient declined. COPD with emphysema 10/05/20 12 documented as of this encounter (statuses as of 12/02/2024) Immunizations Name Administration Dates Next Due COVID-19 mRNA, LNP-s, No Pre serve, 2-Dose Series (Cotopaxi) 09/26/2022,11/18/2021,04/04/2021,02/28 COVID-19, MRNA-LNP, PF, 30 M CG/0.3 [...] money to buy more. Never true 09/27/20 Within the past 12 months, t he [...] Sign Reading Time Taken Comments Blood Pressure 108/62 12/02/2024 11:09 AM EST Pulse 78 12/02/2024 11:09 AM EST Temperature - - Respiratory Rate 18 12/02/2024 11:09 AM EST Oxygen Saturation 97% 12/02/2024 11:09 AM EST Inhaled Oxygen Concentration - - Weight - - Height - - Body Mass Index - - documented in this encounter Functional Status * [...] documented in this encounter Progress Notes * Ludy Jacobs CRNP - 12/02/2024 11:07 AM EST SUBJECTIVE: Marisa Santiago is a 59 year old female. Chief Complaint Patient presents with Hospital Follow-Up Recent Admission: Patient was recently admitted to [facility] 3-4 times in the last 3 times. She has been admitted for recurrent COPD exacerbations. Last admission was 11/13/2024. Treated with iv solumedrol, doxycycline andprednisone. The date of discharge was 11/15/2024.. Discharge report received and reviewed. CT scan in 10/19/2024 showing 1.6 cm spiculated JUDITH nodule. She needs follow up. She had pulm follow up but missed it. Currently smoking 5 cigarettes per day. She feels like maybe she could get meals on wheels. Patient Active Problem List Diagnosis DDD (degenerative disc disease), cervical Endometriosis Irritable bowel syndrome with constipation Tobacco use disorder History of peptic ulcer disease Gastroparesis S/P angioplasty with stent Generalized osteoarthritis Cerebellar hemangioma (HCC) Old MT (myocardial infarction) Sicca syndrome (HCC) Acquired hypothyroidism Coronary artery disease involving twenty-nine palms coronary artery of twenty-nine palms heart without angina pectoris Dyslipidemia, goal LDL [...] (reflex sympathetic dystrophy) Atherosclerotic heart disease of twenty-nine palms coronary artery with other forms of angina [...] and stage 3a chronic kidney disease (HCC) Current Outpatient Medications Medication Sig Dispense Refill VALVED HOLDING CHAMBER JASPAL to be used with inhalers as instructed (Patient not taking: Reported on02/02/2024) 1 Device 2 oxygen GAS 2 LPM [...] by mouth every 6 hours as needed. Nebulizer Device Use with [...] in themorning and 1 Tablet before bedtime. (Patient not taking: Reported on 09/27/2024) 180 Tablet 3 Ondansetron HCl 4 MG Oral Tablet (Zofran) TAKE (1) TABLET BY MOUTH EVERY EIGHT HOURS NEEDED FOR NAUSEA. Strength: 4 mg 30 Tablet 0 Omeprazole 20 MG Oral Capsule Delayed Release [...] minutes prior to injection. 6 mL 3 PARoxetine HCl 40 MG Oral Tablet (pAXil) Take 1 Tablet by mouth in the morning. 30 Tablet 3 Pregabalin 75 MG Oral Capsule (Lyrica) Take 1 Capsule by mouth in the morning and 1 Capsule at noonand 1 Capsule before bedtime. 90 Capsule 5 Albuterol Sulfate HFA 108 (90 Base) MCG/ACT Inhalation Aerosol Solution Inhale 2 Puffs by mouth every 4 hrs as needed for Cough, Shortness of Breath or Withdrawal symptoms. 54 g 1 LORazepam 0.5 MG Oral Tablet (Ativan) Take 1 Tablet by mouth daily as needed for Anxiety. Do not start before August 12, 2024. 30 Tablet 2 Ipratropium-Albuterol 0.5-2.5 (3) MG/3ML Inhalation Solution (Duoneb) USE 1 AMPULE IN NEBULIZER 4 TIMES DAILY NEEDED FOR COUGH, SHORTNESS OF BREATH OR WHEEZING -USE IN PLACE OF RESCUE INHALER 360 mL 5 Methocarbamol 500 MG Oral Tablet (Robamol) TAKE 1 TABLET BY MOUTH 4 TIMES A DAY (MORNING, NOON, EVENING, AND BEFORE BEDTIME) 120 Tablet 0 Metoprolol Succinate ER 50 MG Oral Tablet Extended Release 24 Hour (toPROL XL) TAKE 1 AND 1/2 TABLETS BY MOUTH EVERY MORNING 135 Tablet 0 Current Facility-Administered Medications Medication Dose Route Frequency Provider Last Rate Last Admin Albuterol Sulfate (Proventil) (2.5 MG/3ML) 0.083% inhalation solution 2.5 mg 2.5 mg Nebulizer Once PRN 2.5 mg at 08/02/24 1540 Current and discharge medications have been reconciled. Review of patient's allergies indicates: Allergen Reactions Toradol [Ketorolac Tromethamine] Adhesive Tape Other reaction(s): BANDAIDS SKIN ABRASION Colchicine N/v/d Crestor [Rosuvastatin] Went into kidney failure Demerol Depression Ibuprofen Meperidine And Related depression Nsaids Sulfa Antibiotics Rash OBJECTIVE: LMP 06/30/2011 REVIEW OF SYSTEMS: Review of Systems Constitutional: Positive for fatigue. Respiratory: Positive for cough and shortness of breath. Negative for wheezing. Cardiovascular: Negative for chest pain, palpitations and leg swelling. Gastrointestinal: Negative for abdominal pain. Neurological: Negative for dizziness and syncope. Psychiatric/Behavioral: Negative for sleep disturbance. The patient is nervous/anxious. PHYSICAL EXAM: [facility] 06/30/2011 Physical Exam Constitutional: Comments: Lean, seated in wheelchair HENT: Head: Normocephalic. Eyes: Pupils: Pupils are equal, round, and reactive to light. Cardiovascular: Rate and Rhythm: Normal rate and regular rhythm. Pulmonary: Effort: Pulmonary effort is normal. Breath sounds: Examination of the right-upper field reveals decreased breath sounds. Examination ofthe left-upper field reveals decreased breath sounds. Examination of the right-middle field revealsdecreased breath sounds. Examination of the right-lower field reveals decreased breath sounds. [place] of the left-lower field reveals decreased breath sounds. Decreased breath sounds present. Musculoskeletal: General: Normal range of motion. Cervical back: Normal range of motion. Skin: General: Skin is warm and dry. Nails: There is no clubbing. Neurological: General: No focal deficit present. Mental Status: She is alert and oriented to person, place, and time. Psychiatric: Mood and Affect: Mood normal. Behavior: Behavior normal. Thought Content: Thought content normal. Judgment: Judgment normal. ASSESSMENT: 1. Hospital discharge follow-up (Primary) - DISCH MED RECON CUR MED LIS 2. Nodule of upper lobe of left lung 1.[address] in September Not present on LDCT 04/2024 Referral to pulm Recheck CT chest - PULMONARY REFERRAL OP - CT CHEST WO CONTRAST 3. Chronic hypoxemic respiratory failure (HCC) Using 2lpm 15/06 - PULMONARY REFERRAL OP - [facility] RE[facility] 4. COPD exacerbation (HCC) S/p treatment in hospital 11/13,09/2024/ - PULMONARY REFERRAL OP 5. COPD, group D, by GOLD 2017 classification ([facility]) Continue trelegy Patient and her and I had a conversation regarding the severity of her copd.She is aware that this is not reversible and continues to worsen with every flare. 6. Chronic combined systolic and diastolic congestive heart failure (HCC) stable 7. 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 COPD, frequent exacerbations (HCC) Add daily prednisone 5 mg 4 exacerbations in the last 3 months - predniSONE 5 MG Oral Tablet (Deltasone); As directed Dispense: 30 Tablet; Refill: 0 - [facility] 9. 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 MDD (major depressive disorder), recurrent episode, mild (HCC) 11. Chronic obstructive pulmonary disease with (acute) exacerbation (HCC) 12. Cerebellar hemangioma (HCC) 13. Benign hypertensive heart and CKD, stage 3 (GFR 30-59), w CHF (HCC) 14. Chronic kidney disease, stage 3b (HCC) 15. Sicca syndrome (HCC) 16. PTSD (post-traumatic stress disorder) 17. Hypertensive chronic kidney disease with stage 1 through stage 4 chronic kidney disease, or unspecified chronic kidney disease 18. Old MT (myocardial infarction) 19. Acquired hypothyroidism I spent a total of 40-54 minutes (exact time 48 mins) minutes on the date of service in preparation, delivery, and documentation of the care provided to Marisa Santiago excluding any time spent in performance of separately billed services. ALIYAH Stephens documented in this encounter Nursing Notes * Florencia Mayes LPN - 12/02/2024 11:09 AM EST The patient has been properly identified by confirmation of name and date of . Chief Complaint Patient presents with Hospital Follow-Up [facility]-COPD exacerbation documented in this encounter Plan of Treatment Upcoming Encounters Date Type Department Care Team (Late st Contact Info) Description 12/05/2024 3:20 PM EST Office Visit Pulmonary Medicine, [address] [place] [address] Sony Duong MD [address] [place] [address] 12/07/2024 4:30 PM EST Imaging Radiology [address] [place] [address] 12/12/2024 2:00 PM EST Telemedicine Cardiology [facility], [place] [address] [place] [address] [place] [address], Pharmacist Cardiology [facility] [address] [place] [address] 01/19/2025 4:00 PM EST Office Visit Family Practice [facility] [address] [place] [address] Ludy Jacobs CRNP [address] [place] [address] 02/13/2025 3:30 PM EDT Telemedicine Care at Home [address] [place] [address] Lulu Yee PA-C [address] [place] [address] Scheduled Orders Name Type Priority Associated Diagnoses Orde r Schedule CT CHEST WO CONTRAST Medical Imaging Routine Nodule of upper lobe of left lung Ordered: 12/02/2024 Scheduled Procedures Name Priority Associated Diagnoses Date/Ti me COLONOSCOPY FLEXIBLE PROXIMAL DIAGNOSTIC Recall History of colon polyps Scheduled Referrals Name Type Priority Associated Diagnoses Orde r Schedule PULMONARY REFERRAL OP Referral Within 3 days (urgent) Nodule of upper lobe of left lung COPD exacerbation (HCC) Chronic hypoxemic respiratory failure (HCC) Ordered: 12/02/2024 [facility] Referral Within 30 days (routine) Chronic hypoxemic respiratory failure (HCC) COPD, frequent exacerbations (HCC) Ordered: 12/02/2024 Health Maintenance Due Date Last Done Comments Alpha-1 Antitrypsin 1982 HPV/Co-Test 1994 Cologuard 2009 Fecal Occult Blood Test 2009 Sigmoidoscopy 2009 Pneumococcal Vaccine: 50+ Years (3 of 3 - PCV20 or PCV21) 12/14/2019 12/14/2014, 12/14/2014, 10/11/2008 Zoster Vaccines (2 of 2) 03/06/2021 01/09/2021 CKD PHOS USE SMARTSET [id number] 03/29/2022 03/29/2021, 0 03/28/2021 Albumin/Creatinine Ratio 09/29/2023 09/29/2022, 05/0 03/2021 Mammogram 03/02/2024 03/02/2023, 02/21, 11/04/2016, Additional history exists COVID-19 Vaccine ( season) 2024 10/21/2023, 09/26/2022, 09/26/2022, Additional history exists Cervical Cancer Screening 12/04/2024 Pap Smear 12/04/2024 12/04/2021, 02/21, 03/03/2016, Additional history exists GFR 01/30/2025 08/02/2024, 06/0 04/2024, 04/05/2024, Additional history exists CKD HGB USE SMARTSET 69937 08/02/202508/02, 08/02/2024, 04/28/2024, Additional history exists TSH 08/02/2025 08/02/2024, 06/0 04/2024, 03/06/2023, Additional history exists Depression Monitoring 09/27/2025 09/27/2024 O2 ASSESSMENT COMPLETED IN PAST YEAR FOR COPD 12/02/2025 12/02/2024 Colonoscopy 04/30/2026 04/30/2023, 06/0 06/2023, 11/28/2019, Additional [...] classification (HCC) Hypotension, unspecified hypotension type Old MT (myocardial infarction) Old myocardial infarction Lung nodules Other nonspecific abnormal finding of lung field Other chronic pain Advanced care planning/counseling discussion- Primary Other specified counseling Generalized anxiety disorder Major depressive disorder, recurrent episode, moderate (HCC) Major depressive disorder, recurrent episode, moderate Cerebellar hemangioma (HCC) Hemangioma of intracranial structures Atherosclerotic heart disease of twenty-nine palms coronary artery with other forms of angina pectoris (HCC) Coronary artery disease involving twenty-nine palms coronary artery of twenty-nine palms heart without angina pectoris Acquired hypothyroidism Unspecified [...] Vomiting alone Sicca syndrome (HCC) Sicca syndrome Hospital discharge follow-up- Primary Other follow-up examination Nodule of upper lobe of left lung Chronic hypoxemic respiratory failure (HCC) Chronic respiratory failure COPD exacerbation (HCC) Obstructive chronic bronchitis with exacerbation COPD, group D, by GOLD 2017 classification (HCC) Chronic combined systolic and diastolic congestive heart failure (HCC) Chronic combined systolic and diastolic heart failure 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 (HCC) COPD, frequent exacerbations (HCC) Chronic airway obstruction, not elsewhere classified 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) Chronic airway obstruction, not elsewhere classified MDD (major depressive disorder), recurrent episode, mild (HCC) Major depressive disorder, recurrent episode, mild Chronic obstructive pulmonary disease with (acute) exacerbation (HCC) Cerebellar hemangioma (HCC) Hemangioma of intracranial structures Benign hypertensive heart and CKD, stage 3 (GFR 30-59), w CHF (HCC) Benign hypertensive heart and kidney disease with heart failure and with chronic kidney disease stage I through stage IV, or unspecified Chronic kidney disease, stage 3b (HCC) Sicca syndrome (HCC) Sicca syndrome PTSD (post-traumatic stress disorder) Posttraumatic stress disorder Hypertensive chronic kidney disease with stage 1 through stage 4 chronic kidney disease, or unspecified chronic kidney disease Old MT (myocardial infarction) Old myocardial infarction Acquired hypothyroidism Unspecified hypothyroidism documented in this encounter Advance Directives * [...] Healthcare Agent [facility] p Communication Lopez Santiago Spouse [facility] Care Agent [place] Adult Child Health Care Agent Care Teams Senior Logistics Manager Relationship Specialty Start Date End Date Ludy Jacobs CRNP [address] [place] [address] PCP - General Nurse Practitioner 04/20/24 documented as of this encounter
--- OUTSIDE RECORDS SUMMARY | 2025-01-15 19:47 | External Medical Summary | Summary of Care ---
Author Name Unknown Organization [facility] Address [address] [facility] [address] [facility] [address] Phone [phone] Care Team Providers Care Sensitometrist Name Role Phone Martha Jacobssa Zeina LY Primary Care Provider Reason for Visit * Reason Onset Date Comments [facility]: Screening 12/02/2024 Encounter Details Date Type Department Care Team (Late st Contact Info) Description 12/02/2024 Telephone [facility] [place] [address] [place] [address] Angelica Perez LPN [address] [place] [address] [facility]: Screening Allergies Active Allergy [...] VALVED HOLDING CHAMBER DEVIIndications:CO PD with emphysema ([facility]) to be used with inhalers [...] C, by GOLD 2017 classification ([facility]),Chronic hypoxemic respiratory failure ([facility]) Use with nebulized medications 1 Each 07/24/20 22 Active Full Kit Nebulizer SetIndications:FURNACE FEEDER D, group C, by GOLD 2017 classification ([facility]),Chronic hypoxemic respiratory failure ([facility]) Use with nebulizer 1 Each 07/24/20 22 Active Syringe 25G X 1-1/2" 3 ML Use for intramuscular B12 injection 1 Each 10/02/20 22 Active Albuterol Sulfate (2.5 MG/3ML) 0.083% Inhalation Nebulization Solution (Proventil)Indicat ions:COPD, group D, by GOLD 2017 classification ([facility]) Inhale 1 Vial via nebulizer [...] failure with reduced ejection fraction) ([facility]) Take 1 Tablet by mouth [...] C, by GOLD 2017 classification ([facility]) Inhale 2 Puffs by mouth [...] noted above Atherosclerotic heart diseas e of [place] coronary artery with other forms of angina [...] scheduled with [facility] pain clinic [place] 07/02. Statin intolerance 01/24/2022 Osteopenia 01/08/2022 [...] use aero chamber. Test performed by Flex WELL PULLER CPFT Circadian rhythm sleep disorder 09/17/2018 Nocturnal hypoxemia due to emphysema 07/30/2018 Adjustment disorder with mixed anxiety and depre ssed mood 07/04/2018 TERMINATED MEDICATION USAGE AGREEMENT 06/03/2018 Dupuytren's contracture of left hand 02/01/2018 Mixed incontinence urge and stress (male)(female ) 03/20/2017 Vitamin D deficiency 03/03/2016 Overview (03/03/2016): March 2015 = 13. Took high dose replacement. Due to repeat. Coronary artery disease invo lving [place] coronary artery of [place] heart without angina pectoris 11/12/2015 Assessment & [...] use aero chamber. Test performed by Flex WELL PULLER CPFT Assessment & Plan (05/30/2022 4:27 PM [...] use aero chamber. Test performed by Flex WELL PULLER CPFT COPD, group B, by GOLD 2017 [...] moderate 04/07/2012 10/05/2012 Overview (04/07/2012): PFT 03/2008 [facility] COPD, SEVERE 04/07/2012 05/04/2019 Overview: PER COPD PROTOCOL #24. PFT 03/2008 [facility] LAST PFT -06/07/12 Gastroesophageal reflux dise ase with esophagitis 04/30/2009 01/14/2022 Overview (05/15/2009): mild ADVANCE DIRECTIVE INFORMATION 12/02/2008 09/26/2024 Overview (12/02/2008): No, Advance Directive brochure offered , patient declined. COPD with emphysema 10/05/20 12 documented as of this encounter (statuses as of 12/02/2024) Immunizations Name Administration Dates Next Due COVID-19 mRNA, LNP-s, No Pre serve, 2-Dose Series ([employer]) 09/26/2022,11/18/2021,04/04/2021,02/28 COVID-19, MRNA-LNP, PF, 30 M CG/0.3 mL, 12 YRS AND ABOVE, IM ([employer]-Comnat) 10/21/2023 Covid-19, Mrna, Lnp-s, Pf, B ivalent, 30 Mcg, IM, 12 yrs and above ([employer]) 09/26/2022 HEPATITIS B VACCINE, RECOMB, 20 MCG/ML, [...] No 09/27/2024 Does the household have a [facility] source of income? (Household - for ages [...] Assessment Author Yes 03/28/2021 5:37 AM EDValentino Young, BREE * Because of a physical, mental, or emotional condition, do you have difficulty doing errands alone such as visiting a doctors office or shopping? (15 years old or older) Answer Date of Assessment Author Yes 03/28/2021 5:37 AM Valentino Mcduffie, BREE documented as of this encounter Mental Status * Because of a physical, mental, or emotional condition, do you have serious difficulty concentrating, remembering, or making decisions? (5 years old or older) Answer Entry Date Author No 03/28/2021 5:37 AM Vitaly Mcduffie RN documented in this encounter Miscellaneous Notes * Telephone Encounter - Ludy Jacobs CRNP - 12/02/2024 4:36 PM EST Noted. Marli, CHERELLE, ALIYAH [facility] * Telephone Encounter - Angelica Perez LPN - 12/02/2024 12:58 PM EST Marisa Brown was referred as a potential candidate for enrollment for [facility]. A review of this chart was completed and: Marisa meets criteria for [facility]. Reviewed with leadership and approved. Jump to Initiation Referring care team was notified via : Epic communication Angelica Perez LPN [facility] 12/02/2024,12:58 PM documented in this encounter Plan of Treatment Upcoming Encounters Date Type Department Care Team (Late st Contact Info) Description 12/05/2024 3:20 PM EST Office Visit Pulmonary Medicine, [address] [place] [address] Sony Duong MD [address] [place] [address] 12/07/2024 4:30 PM EST Imaging Radiology [address] [place] [address] 12/12/2024 2:00 PM EST Telemedicine Cardiology [facility], [place] [address] [place] [address] [facility], Pharmacist Cardiology H[facility] [address] [place] [address] 01/19/2025 4:00 PM EST Office Visit Family Practice [facility] [address] [place] [address] Ludy Jacobs CRNP [address] [facility] [place] [address] 02/13/2025 3:30 PM EDT Telemedicine Care at Home [address] [place] [facility] [place] [address] Lulu Yee PA-C [address] [place] [address] Scheduled Procedures Name Priority Associated Diagnoses Date/Ti [...] 2) 03/06/2021 01/09/2021 CKD PHOS USE SMARTSET 34949 03/29/2022 03/29/2021, 0 03/28/2021 Albumin/Creatinine Ratio 09/29/2023 09/29/2022, 05/0 03/2021 Mammogram 03/02/2024 03/02/2023, 02/21, 11/04/2016, Additional history exists COVID-19 Vaccine ( season) 2024 10/21/2023, 09/26/2022, 09/26/2022, Additional history exists Cervical Cancer Screening 12/04/2024 Pap Smear 12/04/2024 12/04/2021, 02/21, 03/03/2016, Additional history exists GFR 01/30/2025 08/02/2024, 06/0 04/2024, 04/05/2024, Additional history exists CKD HGB USE SMARTSET 79545 08/02/202508/02, 08/02/2024, 04/28/2024, Additional history exists TSH [...] Brown Spouse First Alternate Health Care Agent [place] Adult Child Health Care Agent Care Teams Sensitometrist Relationship Specialty Start Date End Date Ludy Jacobs CRNP [address] [place] [address] PCP - General Nurse Practitioner 04/20/24 documented as of this encounter
--- OUTSIDE RECORDS SUMMARY | 2025-01-15 19:47 | External Medical Summary | Summary of Care ---
Author Name Unknown Organization [facility] Address [address] [place] [address] Phone [phone] Care Team Providers Care News Camera Operator Name Role Phone Martha Jacobssa Zeina LY Primary Care Provider Reason for Visit * Reason Onset Date Comments Appointment 12/05/2024 Encounter Details Date Type Department Care Team (Late st Contact Info) Description 12/05/2024 Telephone [facility] [place] [address] [place] [address] Bubba Patterson, ALDO [address] [place], [place] [id number] Appointment (//) Allergies Active Allergy Reactions Criticality [...] C, by GOLD 2017 classification ([facility]),Chronic hypoxemic respiratory failure ([facility]) Use with nebulized medications 1 Each 07/24/20 22 Active Full Kit Nebulizer SetIndications:INDUSTRIAL SEWER D, group C, by GOLD 2017 classification ([facility]),Chronic hypoxemic respiratory failure ([facility]) Use with nebulizer 1 Each 07/24/20 22 Active Syringe 25G X 1-1/2" 3 ML Use for intramuscular B12 injection 1 Each 10/02/20 22 Active Albuterol Sulfate (2.5 MG/3ML) 0.083% Inhalation Nebulization Solution (Proventil)Indicat ions:COPD, group D, by GOLD 2017 classification ([facility]) Inhale 1 Vial via nebulizer [...] failure with reduced ejection fraction) ([facility]) Take 1 Tablet by mouth [...] C, by GOLD 2017 classification ([facility]) Inhale 2 Puffs by mouth [...] Tablet Extended Release 24 Hour (toPROL XL)Indications:Old CT (myocardial infarction) TAKE 1 AND 1/2 TABLETS [...] (05/30/2022 4:32 PM EDT): Appointment scheduled with [facility] pain clinic [place] 07/02. Statin intolerance 01/24/2022 Osteopenia 01/08/2022 LYNDON [...] use aero chamber. Test performed by Flex DIVER ASSISTANT CPFT Circadian rhythm sleep disorder 09/17/2018 [...] (01/22/2023 12:45 PM EST): Continue synthroid Old CT (myocardial infarction) 11/01/2013 Assessment & Plan (05/30/2022 [...] use aero chamber. Test performed by Flex DIVER ASSISTANT CPFT Assessment & Plan (05/30/2022 4:27 [...] use aero chamber. Test performed by Flex DIVER ASSISTANT CPFT COPD, group B, by GOLD [...] moderate 04/07/2012 10/05/2012 Overview (04/07/2012): PFT 03/2008 [facility] COPD, SEVERE 04/07/2012 05/04/2019 Overview: PER COPD PROTOCOL #24. PFT 03/2008 [facility] LAST PFT -06/07/12 Gastroesophageal reflux dise ase with esophagitis 04/30/2009 01/14/2022 Overview (05/15/2009): mild ADVANCE DIRECTIVE INFORMATION 12/02/2008 09/26/2024 Overview (12/02/2008): No, Advance Directive brochure offered , patient declined. COPD with emphysema 10/05/20 12 documented as of this encounter (statuses as of 12/05/2024) Immunizations Name Administration Dates Next Due COVID-19 mRNA, LNP-s, No Pre serve, 2-Dose Series (Between) 09/26/2022,11/18/2021,04/04/2021,02/28 COVID-19, MRNA-LNP, PF, 30 M CG/0.3 mL, 12 YRS AND ABOVE, IM ([employer]) 10/21/2023 Covid-19, Mrna, Lnp-s, Pf, B ivalent, 30 Mcg, IM, 12 yrs and above (Between) 09/26/2022 HEPATITIS B VACCINE, RECOMB, 20 MCG/ML, [...] Telephone Encounter - Bubba Patterson OSA - 12/05/2024 9:22 AM EST 12/05-[facility] Looking at loner 12/19 documented in this encounter Plan of Treatment Upcoming Encounters Date Type Department Care Team (Late st Contact Info) Description 12/05/2024 3:20 PM EST Office Visit Pulmonary Medicine, [facility] [address] [facility] [place] [address] Sony Duong MD [address] [facility] [place] [address] 12/07/2024 4:30 PM EST Imaging Radiology [facility] 1st Floor, [place] [address] [place] [phone] 12/12/2024 2:00 PM EST Telemedicine Cardiology [facility], [place] [address] [facility] [address] [facility], Pharmacist Cardiology [facility] [address] [facility] [address] 01/19/2025 4:00 PM EST Office Visit Family Practice [facility] [address] [place] [address] Ludy Jacobs, ALIYAH [address] [place] [address] 02/13/2025 3:30 PM EDT Telemedicine Care at Home [address] [place] [address] Lulu Yee PA-C [address] [place] [address] Scheduled Procedures Name Priority Associated [...] 2) 03/06/2021 01/09/2021 CKD PHOS USE SMARTSET 83133 03/29/2022 03/29/2021, 0 03/28/2021 Albumin/Creatinine Ratio 09/29/2023 09/29/2022, 05/0 03/2021 Mammogram 03/02/2024 03/02/2023, 02/21, 11/04/2016, Additional history exists COVID-19 Vaccine ( season) 2024 10/21/2023, 09/26/2022, 09/26/2022, Additional history exists Cervical Cancer Screening 12/04/2024 Pap Smear 12/04/2024 12/04/2021, 02/21, 03/03/2016, Additional history exists GFR 01/30/2025 08/02/2024, 06/0 04/2024, 04/05/2024, Additional history exists CKD HGB USE SMARTSET 30046 08/02/202508/02, 08/02/2024, 04/28/2024, Additional history exists TSH 08/02/2025 08/02/2024, 04/2024, 03/06/2023, Additional history exists Depression Monitoring 09/27/2025 09/27/2024 O2 ASSESSMENT COMPLETED IN PAST YEAR FOR COPD 12/02/2025 12/02/2024 Colonoscopy 04/30/2026 04/30/2023, 06/2023, 11/28/2019, Additional history [...] Agents on File Name Relationship Healthcare Agent [facility] Communication Lopez Santiago Spouse First Alternate Health Care Agent [place] Adult Child Health Care Agent Care Teams News Camera Operator Relationship Specialty Start Date End Date Ludy Jacobs CRNP [address] [place] [address] PCP - General Nurse Practitioner 04/20/24 documented as of this encounter
--- OUTSIDE RECORDS SUMMARY | 2025-01-15 19:47 | External Medical Summary | Summary of Care ---
Author Name Unknown Organization [facility] Address [address] [place] [address] Phone [phone] Care Team Providers Care Household Coordinator Name Role Phone Ludy Jacobs Zeina LY Primary Care Provider Reason for Visit * Reason Onset Date Comments [facility]: Enrollment 12/06/2024 Encounter Details Date Type Department Care Team (Late st Contact Info) Description 12/06/2024 Telephone [facility] [place] [address] [place] [address] Thomas Whitmore OSA [address] [place] [address] [facility]: Enrollment Allergies [...] as of this encounter (statuses as of 12/06/2024) Medications VALVED HOLDING CHAMBER DEVIIndications:[place] PD with [...] Each 07/24/20 22 Active Full Kit Nebulizer SetIndications:FAN BLADE ALIGNER D, group C, by GOLD 2017 classification [...] (heart failure with reduced ejection fraction) ([facility]) Take 1 Tablet by mouth in the [...] as of this encounter (statuses as of 12/06/2024) Active Problems Problem Noted Date Diagnosed Date [...] with [facility] pain clinic [place] 07/02. Statin intolerance 01/24/2022 Osteopenia 01/08/2022 LYNDON [...] use aero chamber. Test performed by Flex MARINE ELECTRICIAN APPRENTICE CPFT Circadian rhythm sleep disorder 09/17/2018 [...] as of this encounter (statuses as of 12/06/2024) Resolved Problems Problem Noted Date Diagnosed Date [...] use aero chamber. Test performed by Flex MARINE ELECTRICIAN APPRENTICE CPFT Assessment & Plan (05/30/2022 4:27 [...] use aero chamber. Test performed by Flex MARINE ELECTRICIAN APPRENTICE CPFT COPD, group B, by GOLD [...] as of this encounter (statuses as of 12/06/2024) Immunizations Name Administration Dates Next Due COVID-19 mRNA, LNP-s, No Pre serve, 2-Dose Series ([employer] 09/26/2022,11/18/2021,04/04/2021,02/28 COVID-19, MRNA-LNP, PF, 30 M CG/0.3 mL, 12 YRS AND ABOVE, IM ([employer]-Comirnat) 10/21/2023 Covid-19, Mrna, Lnp-s, Pf, B ivalent, 30 Mcg, IM, 12 yrs and above ([employer] 09/26/2022 HEPATITIS B VACCINE, RECOMB, 20 MCG/ML, [...] No 09/27/2024 Does the household have a [facility] source of income? (Household - for [...] Miscellaneous Notes * Telephone Encounter - Thomas Whtimore OSA - 12/06/2024 9:40 AM EST [facility] Enrollment 12/06 - attempt 2 - left a message Looking at [facility] 12/19 documented in this encounter Plan of Treatment Upcoming Encounters Date Type Department Care Team (Late st Contact Info) Description 12/07/2024 4:30 PM EST Imaging Radiology [address] 132 [facility] [place] [id number] 12/08/2024 3:00 PM EST Appointment PET CT IMAGING, [facility] [address] [place] [address] 12/12/2024 2:00 PM EST Telemedicine Cardiology [facility], [place] [address] [place] [facility] [place] [address] [place], Pharmacist Cardiology Hf [address] [place] [address] 01/02/2025 3:30 PM EST Office Visit Pulmonary Medicine, [facility] [address] [place] [address] Sony Duong MD [address] [facility] [place] [address] 01/19/2025 4:00 PM EST Office Visit Family Practice [facility] [address] [place] [address] Ludy Jacobs CRNP [address] [place] [address] 02/13/2025 3:30 PM EDT Telemedicine Care at Home [address] [place] [address] Lulu Yee PA-C [address] [place], [place] [address] Scheduled Procedures Name Priority Associated Diagnoses Date/Ti [...] 2) 03/06/2021 01/09/2021 CKD PHOS USE SMARTSET 44333 03/29/2022 03/29/2021, 0 03/28/2021 Albumin/Creatinine Ratio 09/29/2023 09/29/2022, 05/0 03/2021 Mammogram 03/02/2024 03/02/2023, 02/21, 11/04/2016, Additional history exists COVID-19 Vaccine ( season) 2024 10/21/2023, 09/26/2022, 09/26/2022, Additional history exists Cervical Cancer Screening 12/04/2024 Pap Smear 12/04/2024 12/04/2021, 02/21, 03/03/2016, Additional history exists GFR 01/30/2025 08/02/2024, 06/0 04/2024, 04/05/2024, Additional history exists CKD HGB USE SMARTSET 98495 08/02/202508/02, 08/02/2024, 04/28/2024, Additional history exists TSH 08/02/2025 08/02/2024, 0 04/2024, 03/06/2023, Additional history exists Depression Monitoring 09/27/2025 09/27/2024 O2 ASSESSMENT COMPLETED IN PAST YEAR FOR COPD 12/05/2025 12/05/2024 Colonoscopy 04/30/2026 04/30/2023, 0 06/2023, 11/28/2019, Additional [...] [facility] p Communication Lopez Santiago Spouse First Alternate Health Care Agent [place] Adult Child Health Care Agent Care Teams Household Coordinator Relationship Specialty Start Date End Date Ludy Jacobs CRNP [address] [place] [address] PCP - General Nurse Practitioner 04/20/24 documented as of this encounter
--- OUTSIDE RECORDS SUMMARY | 2025-01-15 19:47 | External Medical Summary | Summary of Care ---
Author Name Unknown Organization [facility] Address [address] [facility] [address] Phone [phone] Care Team Providers Care Marine Steam Fitter Helper Name Role Phone Martha Jacobssa Zeina LY Primary Care Provider Reason for Visit * Reason Onset Date Comments [facility]: Screening 12/02/2024 Encounter Details Date Type Department Care Team (Late st Contact Info) Description 12/02/2024 Telephone [facility] [place] [address] [place] [address] Angelica Perez LPN [address] [place] [address] [facility]: Screening Allergies Active Allergy [...] VALVED HOLDING CHAMBER DEVIIndications:CO PD with emphysema ([facility]) to be used with inhalers as [...] Each 07/24/20 22 Active Full Kit Nebulizer SetIndications:CASH APPLICATION CLERK D, group C, by GOLD 2017 classification ([facility]),Chronic hypoxemic respiratory failure ([facility]) Use with nebulizer 1 Each 07/24/20 22 Active Syringe 25G X 1-1/2" 3 ML Use for intramuscular B12 injection 1 Each 10/02/20 22 Active Albuterol Sulfate (2.5 MG/3ML) 0.083% Inhalation Nebulization Solution (Proventil)Indicat ions:COPD, group D, by GOLD 2017 classification ([facility] [...] s:COPD, group C, by GOLD 2017 classification ([facility] [...] Tablet Extended Release 24 Hour (toPROL XL)Indications:Old [place] (myocardial infarction) TAKE 1 AND 1/2 TABLETS [...] noted above Atherosclerotic heart diseas e of [place] coronary artery with other forms of angina [...] 4:32 PM EDT): Appointment scheduled with [facility] pain clinic [place] 07/02. Statin intolerance 01/24/2022 Osteopenia 01/08/2022 LYNDON [...] use aero chamber. Test performed by Flex SUPERVISOR DUMPING CPFT Circadian rhythm sleep disorder 09/17/2018 Nocturnal hypoxemia due to emphysema 07/30/2018 Adjustment disorder with mixed anxiety and depre ssed mood 07/04/2018 TERMINATED MEDICATION USAGE AGREEMENT 06/03/2018 Dupuytren's contracture of left hand 02/01/2018 Mixed incontinence urge and stress (male)(female ) 03/20/2017 Vitamin D deficiency 03/03/2016 Overview (03/03/2016): March 2015 = 13. Took high dose replacement. Due to repeat. Coronary artery disease invo lving [place] coronary artery of [place] heart without angina pectoris 11/12/2015 Assessment & Plan (01/22/2023 12:36 PM EST): Stable no angina -continue ASA, metoprolol xl, repatha. Can't tolerate delgado d/t low bp Dyslipidemia, goal LDL below 70 11/12/2015 Sicca syndrome 12/29/2014 Acquired hypothyroidism 12/29/2014 Assessment & Plan (01/22/2023 12:45 PM EST): Continue synthroid Old SC (myocardial infarction) 11/01/2013 Assessment & Plan (05/30/2022 [...] 12:40 PM EDT): Start KCL eliixr 20 Alliosn daily Check BMP in 1-2 weeks Acute [...] use aero chamber. Test performed by Flex SUPERVISOR DUMPING CPFT Assessment & Plan (05/30/2022 4:27 PM [...] use aero chamber. Test performed by Flex SUPERVISOR DUMPING CPFT COPD, group B, by GOLD 2017 [...] moderate 04/07/2012 10/05/2012 Overview (04/07/2012): PFT 03/2008 [facility] COPD, SEVERE 04/07/2012 05/04/2019 Overview: PER COPD PROTOCOL #24. PFT 03/2008 [facility] LAST PFT -06/07/12 Gastroesophageal reflux dise ase with esophagitis 04/30/2009 01/14/2022 Overview (05/15/2009): mild ADVANCE DIRECTIVE INFORMATION 12/02/2008 09/26/2024 Overview (12/02/2008): No, Advance Directive brochure offered , patient declined. COPD with emphysema 10/05/20 12 documented as of this encounter (statuses as of 12/02/2024) Immunizations Name Administration Dates Next Due COVID-19 mRNA, LNP-s, No Pre serve, 2-Dose Series ([employer]) 09/26/2022,11/18/2021,04/04/2021,02/28 COVID-19, MRNA-LNP, PF, 30 M CG/0.3 mL, 12 YRS AND ABOVE, IM ([employer]nat) 10/21/2023 Covid-19, Mrna, Lnp-s, Pf, B ivalent, 30 Mcg, IM, 12 yrs and above ([employer]) 09/26/2022 HEPATITIS B VACCINE, RECOMB, 20 MCG/ML, [...] Author Yes 03/28/2021 5:37 AM Valentino Mcduffie, RN documented as of this encounter Mental Status * Because of a physical, mental, or emotional condition, do you have serious difficulty concentrating, remembering, or making decisions? (5 years old or older) Answer Entry Date Author No 03/28/2021 5:37 AM Valentino Mcduffie, BREE documented in this encounter Miscellaneous Notes * Telephone Encounter - Ludy Jacobs CRNP - 12/02/2024 4:36 PM EST Noted. Marli, CHERELLE, ALIYAH [facility] Medicine * Telephone Encounter - Angelica Perez [...] 3:20 PM EST Office Visit Pulmonary Medicine, [address] [place] [address] Sony Duong MD [address] [place] [address] 12/07/2024 4:30 PM EST Imaging Radiology [address] 132 [facility] [place] [address] 12/12/2024 2:00 PM EST Telemedicine Cardiology [facility], [place] [address] [place] [address] [facility], Pharmacist Cardiology [place] [address] [place] [address] 01/19/2025 4:00 PM EST Office Visit Family Practice [facility] [address] [place] [address] Ludy Jacobs CRNP 132 [facility] [address] 02/13/2025 3:30 PM EDT Telemedicine Care at Home [address] [place] [address] Lulu Yee PA-C [address] [place] [address] Scheduled Procedures Name Priority Associated Diagnoses Date/Ti [...] 2) 03/06/2021 01/09/2021 CKD PHOS USE SMARTSET 69875 03/29/2022 03/29/2021, 0 03/28/2021 Albumin/Creatinine Ratio 09/29/2023 09/29/2022, 05/0 03/2021 Mammogram 03/02/2024 03/02/2023, 02/21, 11/04/2016, Additional history exists COVID-19 Vaccine ( season) 2024 10/21/2023, 09/26/2022, 09/26/2022, Additional history exists Cervical Cancer Screening 12/04/2024 Pap Smear 12/04/2024 12/04/2021, 02/21, 03/03/2016, Additional history exists GFR 01/30/2025 08/02/2024, 06/0 04/2024, 04/05/2024, Additional history exists CKD HGB USE SMARTSET 95201 08/02/202508/02, 08/02/2024, 04/28/2024, Additional history exists TSH [...] Brown Spouse First Alternate Health Care Agent [place] Adult Child Health Care Agent Care Teams Marine Steam Fitter Helper Relationship Specialty Start Date End Date Ludy Jacobs CRNP [address] [place] [address] PCP - General Nurse Practitioner 04/20/24 documented as of this encounter
--- OUTSIDE RECORDS SUMMARY | 2025-01-15 19:47 | External Medical Summary | Summary of Care ---
Author Name Unknown Organization [facility] Address [address] [address] Phone [phone] Care Team Providers Care Musician Instrumental Name Role Phone Ludy Jacobs Zeina LY Primary Care Provider Reason for Visit * Reason Onset Date Comments Medication Refill 11/21/2024 Encounter Details Date Type Department Care Team (Late st Contact Info) Description 11/21/2024 Telephone Cardiology, [facility] [address] [place] [address] Angeline Madsen PA-C [address] [place] [address] Medication Refill Allergies Active Allergy Reactions Criticality Noted Date [...] Each 07/24/20 22 Active Full Kit Nebulizer SetIndications:KINDERGARTEN TUTOR D, group C, by GOLD 2017 classification [...] failure with reduced ejection fraction) ([facility]) Take 1 Tablet by mouth in the [...] noted above Atherosclerotic heart diseas e of [place] coronary artery with other forms [...] (05/30/2022 4:32 PM EDT): Appointment scheduled with [facility] pain clinic [place] 07/02. Statin intolerance 01/24/2022 Osteopenia 01/08/2022 LYNDON [...] use aero chamber. Test performed by Flex DOG WARDEN CPFT Circadian rhythm sleep disorder 09/17/2018 Nocturnal hypoxemia due to emphysema 07/30/2018 Adjustment disorder with mixed anxiety and depre ssed mood 07/04/2018 TERMINATED MEDICATION USAGE AGREEMENT 06/03/2018 Dupuytren's contracture of left hand 02/01/2018 Mixed incontinence urge and stress (male)(female ) 03/20/2017 Vitamin D deficiency 03/03/2016 Overview (03/03/2016): March 2015 = 13. Took high dose replacement. Due to repeat. Coronary artery disease invo lving [place] coronary artery of [place] heart without angina pectoris 11/12/2015 [...] use aero chamber. Test performed by Flex DOG WARDEN CPFT Assessment & Plan (05/30/2022 4:27 PM [...] use aero chamber. Test performed by Flex DOG WARDEN CPFT COPD, group B, by GOLD 2017 [...] 04/07/2012 10/05/2012 Overview (04/07/2012): PFT 03/2008 [facility] COPD, SEVERE 04/07/2012 05/04/2019 Overview: PER COPD PROTOCOL #24. PFT 03/2008 [facility] LAST PFT -06/07/12 Gastroesophageal reflux dise ase with esophagitis 04/30/2009 01/14/2022 Overview (05/15/2009): mild ADVANCE DIRECTIVE INFORMATION 12/02/2008 09/26/2024 Overview (12/02/2008): No, Advance Directive brochure offered , patient declined. COPD with emphysema 10/05/20 12 documented as of this encounter (statuses as of 12/02/2024) Immunizations Name Administration Dates Next Due COVID-19 mRNA, LNP-s, No Pre serve, 2-Dose Series (BIXI) 09/26/2022,11/18/2021,04/04/2021,02/28 COVID-19, MRNA-LNP, PF, 30 M CG/0.3 mL, 12 YRS AND ABOVE, IM ([facility]) 10/21/2023 Covid-19, Mrna, Lnp-s, Pf, B ivalent, 30 Mcg, IM, 12 yrs and above (BIXI) 09/26/2022 HEPATITIS B VACCINE, RECOMB, 20 MCG/ML, [...] of Assessment Author Yes 03/28/2021 5:37 AM Valenitno Mcduffie RN * Because of a physical, mental, or emotional condition, do you have difficulty doing errands alone such as visiting a doctors office or shopping? (15 years old or older) Answer Date of Assessment Author Yes 03/28/2021 5:37 AM EDT [place], Da vid, RN documented as of this encounter Mental Status * Because of a physical, mental, or emotional condition, do you have serious difficulty concentrating, remembering, or making decisions? (5 years old or older) Answer Entry Date Author No 03/28/2021 5:37 AM Valentino Mcduffie, BREE documented in this encounter Miscellaneous Notes * Telephone Encounter - Chiquis Lazo CPhT - 11/21/2024 3:49 PM EST pt calling for a refill on metoprolol er 50mg. This was last prescribed by cardiology. Transfer to specialty refill line. Thank you, Chiquis Lazo CphT Foot Tender III [facility] 11/21/24 documented in this encounter Plan of Treatment Upcoming Encounters Date Type Department Care Team (Late st Contact Info) Description 12/05/2024 3:20 PM EST Office Visit Pulmonary Medicine, [facility] [address] [address] Sony Duong MD [address] [place] [facility] [place] [address] 12/07/2024 4:30 PM EST Imaging Radiology [facility] [address] [address] 12/12/2024 2:00 PM EST Telemedicine Cardiology [facility], [place] [address] [place] [address] [place] [address], Pharmacist Cardiology [facility] [place] [address] [place] [address] 01/19/2025 4:00 PM EST Office Visit Family Practice [facility] 132 [facility] [place] [address] Ludy Jacobs CRNP [address] [facility] [place] [address] 02/13/2025 3:30 PM EDT Telemedicine Care at Home [address] [place] [address] Lulu Yee PA-C [address] [place] [address] Scheduled Procedures Name Priority Associated Diagnoses Date/Ti [...] 2) 03/06/2021 01/09/2021 CKD PHOS USE SMARTSET 71327 03/29/2022 03/29/2021, 0 03/28/2021 Albumin/Creatinine Ratio 09/29/2023 09/29/2022, 05/0 03/2021 Mammogram 03/02/2024 03/02/2023, 02/21, 11/04/2016, Additional history exists COVID-19 Vaccine ( season) 2024 10/21/2023, 09/26/2022, 09/26/2022, Additional history exists Cervical Cancer Screening 12/04/2024 Pap Smear 12/04/2024 12/04/2021, 02/21, 03/03/2016, Additional history exists GFR 01/30/2025 08/02/2024, 06/0 04/2024, 04/05/2024, Additional history exists CKD HGB USE SMARTSET 77163 08/02/202508/02, 08/02/2024, 04/28/2024, Additional history exists TSH [...] on File Name Relationship Healthcare Agent [facility] p Communication Lopez Brown Spouse First Alternate Health Care Agent [place] Adult Child Health Care Agent Care Teams Musician Instrumental Relationship Specialty Start Date End Date Ludy Jacobs CRNP [address] [place] [address] PCP - General Nurse Practitioner 04/20/24 documented as of this encounter
--- OUTSIDE RECORDS SUMMARY | 2025-01-15 19:48 | External Medical Summary | Summary of Care ---
Author Name Unknown Organization [facility] Address [address] [facility] [place] [address] Phone [phone] Care Team Providers Care Batter Scaler Name Role Phone Ludy Jacobs Zeina LY Primary Care Provider Reason for Visit * Reason Onset Date Comments [facility]: Screening 11/14/2024 Encounter Details Date Type Department Care Team (Late st Contact Info) Description 11/14/2024 Telephone [facility], [facility] [address] [facility] [place] [address] Dorys Ray, AIR SUPPORT OPERATIONS OPERATOR [address] [place] [address] [facility]: Screening Allergies Active Allergy Reactions Criticality Noted Date Comments Adhesive Tape 10/12/2019 Other reaction(s): BANDAIDS SKIN ABRASION Colchicine 05/08/2022 N/v/d Rosuvastatin 04/02/2021 Went into kidney failure Demerol 08/11/2012 Depression Ibuprofen 04/02/2021 Meperidine And Related 09/28/2002 depression Nsaids 04/02/2021 Sulfa Antibiotics Rash 07/09/2001 Ketorolac Tromethamine Medium 04/04/2021 documented as of this encounter (statuses as of 11/14/2024) Medications VALVED HOLDING CHAMBER DEVIIndications:CO PD with [...] Each 07/24/20 22 Active Full Kit Nebulizer SetIndications:GOLF COURSE MECHANIC D, group C, by GOLD 2017 classification ([facility]),Chronic hypoxemic respiratory failure ([facility]) Use with nebulizer 1 Each 07/24/20 22 Active Syringe 25G X 1-1/2" 3 ML Use for intramuscular B12 injection 1 Each 10/02/20 22 Active Albuterol Sulfate (2.5 MG/3ML) 0.083% Inhalation Nebulization Solution (Proventil)Indicat ions:COPD, group D, by GOLD 2017 classification ([facility] [...] s:COPD, group C, by GOLD 2017 classification ([facility] [...] mgIndications:COPD, group D, by GOLD 2017 classification ([facility]) 2.5 mg NEBULIZER ONCE PRN 04/28/2024 04/28/2025 Acti ve documented as of this encounter (statuses as of 11/14/2024) Active Problems Problem Noted Date Diagnosed Date [...] above Atherosclerotic heart diseas e of [place] coronary artery with other forms of angina [...] (05/30/2022 4:32 PM EDT): Appointment scheduled with [facility] pain clinic [place] 07/02. Statin intolerance 01/24/2022 Osteopenia 01/08/2022 LYNDON [...] use aero chamber. Test performed by Flex DEPARTMENT TRAFFIC FREIGHT ROUTER CPFT Circadian rhythm sleep disorder 09/17/2018 Nocturnal [...] repeat. Coronary artery disease invo lving [place] coronary artery of [place] heart without angina pectoris 11/12/2015 Assessment & [...] as of this encounter (statuses as of 11/14/2024) Resolved Problems Problem Noted Date Diagnosed Date [...] use aero chamber. Test performed by Flex DEPARTMENT TRAFFIC FREIGHT ROUTER CPFT Assessment & Plan (05/30/2022 4:27 PM [...] use aero chamber. Test performed by Flex DEPARTMENT TRAFFIC FREIGHT ROUTER CPFT COPD, group B, by GOLD 2017 [...] as of this encounter (statuses as of 11/14/2024) Immunizations Name Administration Dates Next Due COVID-19 mRNA, LNP-s, No Pre serve, 2-Dose Series (VouchedFor) 09/26/2022,11/18/2021,04/04/2021,02/28 COVID-19, MRNA-LNP, PF, 30 M CG/0.3 mL, 12 YRS AND ABOVE, IM ([employer]ir[employer]) 10/21/2023 Covid-19, Mrna, Lnp-s, Pf, B ivalent, [...] Telephone Encounter - Dorys Ray LPN - 11/14/2024 9:32 AM EST Reviewed by Nithya Monreal Patient was enrolled previously and no showed appointments constantly. Patient also would never answer phones. Patient would need to be consistent with appointment and make contact for reconsideration of enrollment * Telephone Encounter - Dorys Ray LPN - 11/14/2024 8:48 AM EST Marisa Brown was referred as a potential candidate for enrollment for [facility]. A review of this chart was completed and: Being reviewed by upper management documented in this encounter Plan of Treatment Upcoming Encounters Date Type Department Care Team (Late st Contact Info) Description 11/15/2024 8:00 AM EST Scheduled Telephone Care Coordination and Integration [address] [place] [address] Lulu Umaña, Community Health Feeder Switchboard Operator [address] [place] [address] 11/22/2024 2:30 PM EST Telemedicine Cardiology [facility] [place] [address] [place] [address] [email or web address], Pharmacist Cardiology [facility] [address] [place] [address] 02/13/2025 3:30 PM EDT Telemedicine Care at Home [address] [place] [address] Lulu Yee PA-C [address] [place] [address] Scheduled Procedures Name Priority Associated Diagnoses Date/Ti me COLONOSCOPY FLEXIBLE PROXIMAL DIAGNOSTIC Recall History of colon polyps Health Maintenance Due Date Last Done Comments Alpha-1 Antitrypsin 1982 HPV/Co-Test 1994 Cologuard 2009 Fecal Occult Blood Test 2009 Sigmoidoscopy 2009 Pneumococcal Vaccine: Pediatrics (0 to 5 Years) and At-Risk Patients (6 to 64 Years) (3 of 3 - PCV20 or PCV21) 12/14/2019 12/14/2014, 12/14/2014, 10/11/2008 Zoster Vaccines (2 of 2) 03/06/2021 01/09/2021 CKD PHOS USE SMARTSET 71147 03/29/2022 03/29/2021, 0 03/28/2021 Albumin/Creatinine Ratio 09/29/2023 09/29/2022, 050 03/2021 Mammogram 03/02/2024 03/02/2023, 02/21, 11/04/2016, Additional history exists COVID-19 Vaccine ( season) 2024 10/21/2023, 09/26/2022, 09/26/2022, Additional history exists Cervical Cancer Screening 12/04/2024 Pap Smear 12/04/2024 12/04/2021, 02/21, 03/03/2016, Additional history exists GFR 01/30/2025 08/02/2024, 06/0 04/2024, 04/05/2024, Additional history exists CKD HGB USE SMARTSET 57880 08/02/202508/02, 08/02/2024, 04/28/2024, Additional history exists O2 [...] Agents on File Name Relationship Healthcare Agent [facility] Lopez Brown Spouse First Alternate Health Care Agent [place] Adult Child Health Care Agent Care Teams Batter Scaler Relationship Specialty Start Date End Date Ludy Jacobs CRNP [address] [place] [address] PCP - General Nurse Practitioner 04/20/24 documented as of this encounter
--- OUTSIDE RECORDS SUMMARY | 2025-01-15 19:48 | External Medical Summary | Summary of Care ---
Author Name Unknown Organization [facility] Address [address] [facility] [place] [address] Phone [phone] Care Team Providers Care Automation And Controls Instructor Name Role Phone Ludy Jacobs Primary Care Provider Reason for Visit * Reason Onset Date Comments Advice 11/14/2024 Encounter Details Date Type Department Care Team (Late st Contact Info) Description 11/14/2024 Telephone Family Practice [facility] [address] [place] [address] Ludy Jacobs CRNP [address] [place] [address] Advice Allergies Active Allergy Reactions Criticality Noted Date Comments Adhesive Tape 10/12/2019 Other reaction(s): BANDAIDS SKIN ABRASION Colchicine 05/08/2022 N/v/d Rosuvastatin 04/02/2021 Went into kidney failure Demerol 08/11/2012 Depression Ibuprofen 04/02/2021 Meperidine And Related 09/28/2002 depression Nsaids 04/02/2021 Sulfa Antibiotics Rash 07/09/2001 Ketorolac Tromethamine Medium 04/04/2021 documented as of this encounter (statuses as of 11/21/2024) Medications VALVED HOLDING CHAMBER DEVIIndications:CO PD with [...] Each 07/24/20 22 Active Full Kit Nebulizer SetIndications:CVIR TECH D, group C, by GOLD 2017 classification [...] as of this encounter (statuses as of 11/21/2024) Active Problems Problem Noted Date Diagnosed Date [...] [facility] [place] 07/02. Statin intolerance 01/24/2022 Osteopenia 01/08/2022 LYNDON [...] use aero chamber. 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 Test performed by Flex PAINT MAKER CPFT Assessment & Plan (05/30/2022 4:27 [...] use aero chamber. Test performed by Flex PAINT MAKER CPFT COPD, group B, by GOLD [...] 04/07/2012 10/05/2012 Overview (04/07/2012): PFT 03/2008 [facility] COPD, SEVERE 04/07/2012 05/04/2019 Overview: PER COPD PROTOCOL #24. PFT 03/2008 [facility] LAST PFT -06/07/12 Gastroesophageal reflux dise ase with esophagitis 04/30/2009 01/14/2022 Overview (05/15/2009): mild ADVANCE DIRECTIVE INFORMATION 12/02/2008 09/26/2024 Overview (12/02/2008): No, Advance Directive brochure offered , patient declined. COPD with emphysema 10/05/20 12 documented as of this encounter (statuses as of 11/21/2024) Immunizations Name Administration Dates Next Due COVID-19 mRNA, LNP-s, No Pre serve, 2-Dose Series (Cyntellect) 09/26/2022,11/18/2021,04/04/2021,02/28 COVID-19, MRNA-LNP, PF, 30 M CG/0.3 mL, 12 YRS AND ABOVE, IM ([employer]Comir[employer]) 10/21/2023 Covid-19, Mrna, Lnp-s, Pf, B ivalent, [...] encounter Miscellaneous Notes * Telephone Encounter - Tamika Lepe RN - 11/21/2024 3:13 PM EST Attempted outreach again today, message left on voice mail with call back number given. * Telephone Encounter - Tamika Lepe RN - 11/15/2024 2:27 PM EST Phone call to patient, went straight to voice mail. Patient has been referred to [facility] if she is agreeable and willing to participate. Message left for return phone call. * Telephone Encounter - Bettie Abdul OSA - 11/14/2024 4:00 PM EST Pt's would like a call from ALIYAH Pimentel, to discuss pt's health after her hospital discharge. Please reach out to Lopez at [phone]. His work hours are 7 am to 3:30 pm with his lunch from 12:00 pm to 12:30 pm. documented in this encounter Plan of Treatment Upcoming Encounters Date Type Department Care Team (Late st Contact Info) Description 11/22/2024 2:30 PM EST Telemedicine Cardiology [facility] [place] [address] [place] [address] [facility], Pharmacist Cardiology [facility] [address] [place] [address] 12/02/2024 11:00 AM EST Office Visit Family [facility] 132 [facility] [place] [address] Ludy Jacobs CRNP [address] [place] [address] 02/13/2025 3:30 PM EDT Telemedicine Care at Home [address] [place] [address] Lulu Yee PA-C [address] [place] [address] Scheduled Procedures Name Priority Associated Diagnoses Date/Ti [...] 2) 03/06/2021 01/09/2021 CKD PHOS USE SMARTSET 78117 03/29/2022 03/29/2021, 0 03/28/2021 Albumin/Creatinine Ratio 09/29/2023 09/29/2022, 05/0 03/2021 Mammogram 03/02/2024 03/02/2023, 02/21, 11/04/2016, Additional history exists COVID-19 Vaccine ( season) 2024 10/21/2023, 09/26/2022, 09/26/2022, Additional history exists Cervical Cancer Screening 12/04/2024 Pap Smear 12/04/2024 12/04/2021, 02/21, 03/03/2016, Additional history exists GFR 01/30/2025 08/02/2024, 06/0 04/2024, 04/05/2024, Additional history exists CKD HGB USE SMARTSET 43911 08/02/202508/02, 08/02/2024, 04/28/2024, Additional history exists O2 ASSESSMENT COMPLETED IN PAST YEAR FOR COPD 08/02/2025 08/02/2024 TSH 08/02/2025 08/02/2024, 04/2024, 03/06/2023, Additional history exists Depression Monitoring 09/27/2025 09/27/2024 Colonoscopy 04/30/2026 04/30/2023, 06/2023, 11/28/2019, Additional history [...] on File Name Relationship Healthcare Agent [facility] Lpoez Santiago Spouse First Alternate Health Care Agent [place] Adult Child Health Care Agent Care Teams Automation And Controls Instructor Relationship Specialty Start Date End Date Ludy Jacobs CRNP [address] [place] [address] PCP - General Nurse Practitioner 04/20/24 documented as of this encounter
--- OUTSIDE RECORDS SUMMARY | 2025-01-15 19:48 | External Medical Summary | Summary of Care ---
Author Name Unknown Organization [facility] Address [address] [address] Phone [phone] Care Team Providers Care Lead Consultant Name Role Phone Martha Jacobssa Zeina LY Primary Care Provider Reason for Visit * Reason Onset Date Comments [facility]: Screening 11/11/2024 Encounter Details Date Type Department Care Team (Late st Contact Info) Description 11/11/2024 Telephone [facility], [facility] [address] [facility] [place] [phone] Huong Rizzo LPN [address] [facility] [address] [facility]: Screening Allergies Active Allergy Reactions Criticality Noted Date Comments Adhesive Tape 10/12/2019 Other reaction(s): BANDAIDS SKIN ABRASION Colchicine 05/08/2022 N/v/d Rosuvastatin 04/02/2021 Went into kidney failure Demerol 08/11/2012 Depression Ibuprofen 04/02/2021 Meperidine And Related 09/28/2002 depression Nsaids 04/02/2021 Sulfa Antibiotics Rash 07/09/2001 Ketorolac Tromethamine Medium 04/04/2021 documented as of this encounter (statuses as of 11/11/2024) Medications VALVED HOLDING CHAMBER DEVIIndications:CO PD with emphysema ([facility]) to be used with inhalers [...] COPD, group C, by GOLD 2017 classification ([facility]),Chronic hypoxemic respiratory failure ([facility]) Use with nebulized medications 1 Each 07/24/20 22 Active Full Kit Nebulizer SetIndications:PELT GRADER D, group C, by GOLD 2017 classification ([facility]),Chronic hypoxemic respiratory failure ([facility]) Use with nebulizer 1 Each 07/24/20 22 Active Syringe 25G X 1-1/2" 3 ML Use for intramuscular B12 injection 1 Each 10/02/20 22 Active Albuterol Sulfate (2.5 MG/3ML) 0.083% Inhalation Nebulization Solution (Proventil)Indicat ions:COPD, group D, by GOLD 2017 classification ([facility]) Inhale 1 Vial via nebulizer [...] s:COPD, group C, by GOLD 2017 classification ([facility]) Inhale 2 Puffs by mouth [...] mgIndications:COPD, group D, by GOLD 2017 classification ([facility]) 2.5 mg NEBULIZER ONCE PRN 04/28/2024 04/28/2025 Acti ve documented as of this encounter (statuses as of 11/11/2024) Active Problems Problem Noted Date Diagnosed Date [...] noted above Atherosclerotic heart diseas e of [place] coronary artery with other forms of angina [...] (05/30/2022 4:32 PM EDT): Appointment scheduled with [facility] pain clinic [place] 07/02. Statin intolerance 01/24/2022 Osteopenia 01/08/2022 LYNDON [...] use aero chamber. Test performed by Flex DREDGE MECHANIC CPFT Circadian rhythm sleep disorder 09/17/2018 [...] to repeat. Coronary artery disease invo lving [place] coronary artery of [place] heart without angina pectoris 11/12/2015 Assessment & [...] as of this encounter (statuses as of 11/11/2024) Resolved Problems Problem Noted Date Diagnosed Date [...] use aero chamber. Test performed by Flex DREDGE MECHANIC CPFT Assessment & Plan (05/30/2022 4:27 [...] use aero chamber. Test performed by Flex DREDGE MECHANIC CPFT COPD, group B, by GOLD [...] as of this encounter (statuses as of 11/11/2024) Immunizations Name Administration Dates Next Due COVID-19 mRNA, LNP-s, No Pre serve, 2-Dose Series (OnAir Player) 09/26/2022,11/18/2021,04/04/2021,02/28 COVID-19, MRNA-LNP, PF, 30 M CG/0.3 mL, 12 YRS AND ABOVE, IM (On-Q-ity-ComirnatThengine Co) 10/21/2023 Covid-19, Mrna, Lnp-s, Pf, B ivalent, [...] encounter Miscellaneous Notes * Telephone Encounter - Huong Rizzo LPN - 11/11/2024 4:07 PM EST Marisa Santiago was referred as a potential candidate for enrollment for [facility]. A review of this chart was completed and: Marisa does not meet criteria for enrollment into [facility]. Referral Source: [facility] Criteria for Ineligibility: Not Located in Service Area Referring care team was notified via : Epic communication Reviewed by leadership Does not meet criteria for re enrollment at this time. Pt frequently unable to contact and no show for appts documented in this encounter Plan of Treatment Upcoming Encounters Date Type Department Care Team (Late st Contact Info) Description 11/15/2024 8:00 AM EST Scheduled Telephone Care Coordination and Integration [address] [place] [address] Lulu Umaña, Community Health Marketing Copywriter [address] [place] [address] 11/22/2024 2:30 PM EST Telemedicine Cardiology [facility] [place] [address] [place] [address] [place], Pharmacist Cardiology [facility] [address] [place] [address] 02/13/2025 3:30 PM EDT Telemedicine Care at Home [address] [place] [address] Lulu Yee PA-C [address] [place] [address] Scheduled Procedures Name Priority Associated Diagnoses Date/Ti me COLONOSCOPY FLEXIBLE PROXIMAL DIAGNOSTIC Recall History of colon polyps Health Maintenance Due Date Last Done Comments Alpha-1 Antitrypsin 1982 HPV/Co-Test 1994 Cologuard 2009 Fecal Occult Blood Test 2009 Sigmoidoscopy 2009 Zoster Vaccines (2 of 2) 03/06/2021 01/09/2021 CKD PHOS USE SMARTSET 87019 03/29/2022 03/29/2021, 0 03/28/2021 Albumin/Creatinine Ratio 09/29/2023 09/29/2022, 05/0 03/2021 Mammogram 03/02/2024 03/02/2023, 02/21, 11/04/2016, Additional history exists COVID-19 Vaccine ( season) 2024 10/21/2023, 09/26/2022, 09/26/2022, Additional history exists Cervical Cancer Screening 12/04/2024 Pap Smear 12/04/2024 12/04/2021, 02/21, 03/03/2016, Additional history exists GFR 01/30/2025 08/02/2024, 06/0 04/2024, 04/05/2024, Additional history exists CKD HGB USE SMARTSET 95567 08/02/202508/02, 08/02/2024, 04/28/2024, Additional history exists O2 [...] Agents on File Name Relationship Healthcare Agent [facility] p Communication Lopez Santiago Spouse First Alternate Health Care Agent [place] Adult Child Health Care Agent Care Teams Lead Consultant Relationship Specialty Start Date End Date Ludy Jacobs CRNP [address] [place] [address] PCP - General Nurse Practitioner 04/20/24 documented as of this encounter
--- OUTSIDE RECORDS SUMMARY | 2025-01-15 19:48 | External Medical Summary | Summary of Care ---
Author Name Unknown Organization [facility] Address [address] [facility] [place] [address] Phone [phone] Care Team Providers Care Rack Puller Name Role Phone Ludy Jacobs Zeina LY Primary Care Provider Encounter Details Date Type Department Care Team (Late st Contact Info) Description 11/14/2024 Population Health External Data Unspecified Department Allergies [...] Documents, Reported on 12/24/2022 Nebulizers (NEBULIZER COMPRESSOR) [facility] [place] nebulizer. Along with supply . Use as directed. Dx code- J44.9 and J43.9 1 Each 10/05/20 18 Active aspirin enteric coated 81 MG TBEC Take 1 Tablet by mouth every morning. Active Acetaminophen 325 MG Oral Tablet (Tylenol) Take 1 Tablet by mouth every 6 hours as needed. Active Nebulizer DeviceIndications: COPD, group C, by GOLD 2017 classification ([facility]),Chronic hypoxemic respiratory failure ([facility]) Use with nebulized medications 1 Each 07/24/20 22 Active Full Kit Nebulizer SetIndications:MISSION SYSTEMS ENGINEER D, group C, by GOLD 2017 classification ([facility]),Chronic hypoxemic respiratory failure ([facility]) Use with nebulizer 1 Each 07/24/20 Active Syringe 25G X 1-1/2" 3 ML Use for intramuscular B12 injection 1 Each 10/02/20 22 Active Albuterol Sulfate (2.5 MG/3ML) 0.083% Inhalation Nebulization Solution (Proventil)Indicat ions:COPD, group D, by GOLD 2017 classification ([facility]) Inhale 1 Vial via nebulizer 4 times [...] (HCC),HFrEF (heart failure with reduced ejection fraction) ([facility]) Take 1 Tablet by mouth in the [...] s:COPD, group C, by GOLD 2017 classification ([facility]) Inhale 2 Puffs by mouth every 4 [...] noted above Atherosclerotic heart diseas e of [place] coronary artery with other forms of angina [...] [facility] pain clinic [place] 07/02. Statin intolerance 01/24/2022 Osteopenia 01/08/2022 LYNDON [...] use aero chamber. Test performed by Flex POULTRY FARMWORKER CPFT Circadian rhythm sleep disorder 09/17/2018 Nocturnal hypoxemia due to emphysema 07/30/2018 Adjustment disorder with mixed anxiety and depre ssed mood 07/04/2018 TERMINATED MEDICATION USAGE AGREEMENT 06/03/2018 Dupuytren's contracture of left hand 02/01/2018 Mixed incontinence urge and stress (male)(female ) 03/20/2017 Vitamin D deficiency 03/03/2016 Overview (03/03/2016): March 2015 = 13. Took high dose replacement. Due to repeat. Coronary artery disease invo lving [place] coronary artery of [place] heart without angina pectoris 11/12/2015 Assessment & [...] use aero chamber. Test performed by Flex POULTRY FARMWORKER CPFT Assessment & Plan (05/30/2022 4:27 PM [...] use aero chamber. Test performed by Flex POULTRY FARMWORKER CPFT COPD, group B, by GOLD 2017 [...] 04/07/2012 10/05/2012 Overview (04/07/2012): PFT 03/2008 [facility] COPD, SEVERE 04/07/2012 05/04/2019 Overview: PER COPD PROTOCOL #24. PFT 03/2008 [facility] LAST PFT -06/07/12 Gastroesophageal reflux dise ase with esophagitis 04/30/2009 01/14/2022 Overview (05/15/2009): mild ADVANCE DIRECTIVE INFORMATION 12/02/2008 09/26/2024 Overview (12/02/2008): No, Advance Directive brochure offered , patient declined. COPD with emphysema 10/05/20 12 documented as of this encounter (statuses as of 11/14/2024) Immunizations Name Administration Dates Next Due COVID-19 mRNA, LNP-s, No Pre serve, 2-Dose Series ([employer]) 09/26/2022,11/18/2021,04/04/2021,02/28 COVID-19, MRNA-LNP, PF, 30 M CG/0.3 [...] Telephone Care Coordination and Integration [address] [place] [address] Lulu Umaña, Community Health Comic Book Artist [address] [place] [address] 11/22/2024 2:30 PM EST Telemedicine Cardiology [facility], [place] [address] [place], [place] [id number] [place] [address], Pharmacist Cardiology [facility] [address], [place] [id number] 02/13/2025 3:30 PM EDT Telemedicine Care at Home [address] [place] [address] Lulu Yee PA-C [address], [place] [id number] Scheduled Procedures Name Priority Associated Diagnoses Date/Ti [...] 2) 03/06/2021 01/09/2021 CKD PHOS USE SMARTSET 91545 03/29/2022 03/29/2021, 0 03/28/2021 Albumin/Creatinine Ratio 09/29/2023 09/29/2022, 05/0 03/2021 Mammogram 03/02/2024 03/02/2023, 02/21, 11/04/2016, Additional history exists COVID-19 Vaccine ( season) 2024 10/21/2023, 09/26/2022, 09/26/2022, Additional history exists Cervical Cancer Screening 12/04/2024 Pap Smear 12/04/2024 12/04/2021, 02/21, 03/03/2016, Additional history exists GFR 01/30/2025 08/02/2024, 06/0 04/2024, 04/05/2024, Additional history exists CKD HGB USE SMARTSET 39196 08/02/202508/02, 08/02/2024, 04/28/2024, Additional history exists O2 [...] on File Name Relationship Healthcare Agent [facility] p Communication Lopez Santiago Spouse First Alternate Health Care Agent Power Adult Child Health Care Agent Care Teams Rack Puller Relationship Specialty Start Date End Date Ludy Jacobs CRNP [address] [place] [address] PCP - General Nurse Practitioner 04/20/24 documented as of this encounter
--- OUTSIDE RECORDS SUMMARY | 2025-01-15 19:48 | External Medical Summary | Summary of Care ---
Author Name Unknown Organization [facility] Address [address] [place] [address] Phone [phone] Care Team Providers Care Crook Operator Name Role Phone Ludy Jacobs Primary Care Provider Reason for Referral * Social Care (Within 10 days (routine)) - Authorized Specialty Diagnoses / Procedures Referred By Cruz bridges Referred To Contact HOME CARE / [facility] at Home Diagnoses Need for case management follow-up Chronic hypoxemic respiratory failure (HCC) COPD, group D, by GOLD 2017 classification (HCC) Chronic combined systolic and diastolic congestive heart failure (HCC) Tamika Lepe, BREE [address] [place] [address] Phone: tel: fax: Referral ID Status Reason Start Date Expiration Date Visits Requested Visits Authorized [id number] Authorized Specialty Services Required 4 [phone] Question Answer Referral Priority Within 10 days (routine) Where should this appointment be scheduled? [facility] Does patient have multiple co-morbid conditions? Yes Does patient have [facility] insurance? Yes Comments Is referral coming from Care Coordination and Integration? Yes Best source of contact for the patient:Patient Patient has remote monitoring device(s): No Connectivity in the home: Yes Patient is currently hospitalized with COPD exacerbation. Please enroll at time of discharge Encounter Details Date Type Department Care Team (Late st Contact Info) Description 11/11/2024 Orders Only Family Practice [facility] [address] [facility] [place] [address] Tamika Lepe, BREE [address] [facility] [place] [phone] Need for case management follow-up*; Chronic hypoxemic respiratory failure (HCC); COPD, group D, by GOLD 2017 classification ([facility]); Chronic combined systolic and diastolic congestive heart failure ([facility]) Allergies Active Allergy Reactions Criticality Noted Date Comments Adhesive Tape 10/12/2019 Other reaction(s): BANDAIDS SKIN ABRASION Colchicine 05/08/2022 N/v/d Rosuvastatin 04/02/2021 Went into kidney failure Demerol 08/11/2012 Depression Ibuprofen 04/02/2021 Meperidine And Related 09/28/2002 depression Nsaids 04/02/2021 Sulfa Antibiotics Rash 07/09/2001 Ketorolac Tromethamine Medium 04/04/2021 documented as of this encounter (statuses as of 11/11/2024) Medications VALVED HOLDING CHAMBER DEVIIndications:CO PD with emphysema ([facility]) to be used with inhalers as [...] Documents, Reported on 12/24/2022 Nebulizers (NEBULIZER COMPRESSOR) [facility] via nebulizer. Along with supply . Use as directed. Dx code- J44.9 and J43.9 1 Each 10/05/20 18 Active aspirin enteric coated 81 MG TBEC Take 1 Tablet by mouth every morning. Active Acetaminophen 325 MG Oral Tablet (Tylenol) Take 1 Tablet by mouth every 6 hours as needed. Active Nebulizer DeviceIndications: COPD, group C, by GOLD 2017 classification ([facility]),Chronic hypoxemic respiratory failure ([facility]) Use with nebulized medications 1 Each 07/24/20 22 Active Full Kit Nebulizer SetIndications:QUILL CLEANING MACHINE OPERATOR D, group C, by GOLD 2017 classification ([facility]),Chronic hypoxemic respiratory failure (HCC) Use with nebulizer 1 Each 07/24/20 22 Active Syringe 25G X 1-1/2" 3 ML Use for intramuscular B12 injection 1 Each 10/02/20 22 Active Albuterol Sulfate (2.5 MG/3ML) 0.083% Inhalation Nebulization Solution (Proventil)Indicat ions:COPD, group D, by GOLD 2017 classification ([facility]) Inhale 1 Vial via nebulizer 4 [...] combined systolic and diastolic congestive heart failure ([facility]),HFrEF (heart failure with reduced ejection fraction) ([facility]) Take 1 Tablet by mouth in [...] s:COPD, group C, by GOLD 2017 classification ([facility]) Inhale 2 Puffs by mouth every [...] mgIndications:COPD, group D, by GOLD 2017 classification ([facility]) 2.5 mg NEBULIZER ONCE PRN 04/28/2024 [...] noted above Atherosclerotic heart diseas e of [place] coronary artery with other forms of angina [...] Appointment scheduled with [facility] pain clinic [place] 07/02. Statin intolerance 01/24/2022 Osteopenia 01/08/2022 LYNDON [...] use aero chamber. 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 Took high dose replacement. Due to repeat. Coronary artery disease invo lving [place] coronary artery of [place] heart without angina pectoris 11/12/2015 Assessment & [...] use aero chamber. Test performed by Flex FLOOR REFINISHER CPFT COPD, group B, by GOLD 2017 [...] 10/05/2012 Overview (04/07/2012): PFT 03/2008 [facility] COPD, SEVERE 04/07/2012 05/04/2019 Overview: PER COPD PROTOCOL #24. PFT 03/2008 [facility] LAST PFT -06/07/12 Gastroesophageal reflux dise ase with esophagitis 04/30/2009 01/14/2022 Overview (05/15/2009): mild ADVANCE DIRECTIVE INFORMATION 12/02/2008 09/26/2024 Overview (12/02/2008): No, Advance Directive brochure offered , patient declined. COPD with emphysema 10/05/20 12 documented as of this encounter (statuses as of 11/11/2024) Immunizations Name Administration Dates Next Due COVID-19 mRNA, LNP-s, No Pre serve, 2-Dose Series ([employer]) 09/26/2022,11/18/2021,04/04/2021,02/28 COVID-19, MRNA-LNP, PF, 30 M CG/0.3 mL, 12 YRS AND ABOVE, IM ([employer]-Comirnat) 10/21/2023 Covid-19, Mrna, Lnp-s, Pf, B ivalent, [...] Entry Date Author No 03/28/2021 5:37 AM YASMINET Valentino Child RN documented in this encounter Plan of Treatment Upcoming Encounters Date Type Department Care Team (Late st Contact Info) Description 11/15/2024 8:00 AM EST Scheduled Telephone Care Coordination and Integration [address] [place] [address] Lulu Umaña, Community Health Licensed Insurance Sales Agent [address] [place] [address] 11/22/2024 2:30 PM EST Telemedicine Cardiology [facility], [place] [address] [place] [address] [facility], Pharmacist Cardiology [facility] [address] [place] [address] 02/13/2025 3:30 PM EDT Telemedicine Care at Home [address] [place] [address] Lulu Yee PA-C [address], [place] [phone] Scheduled Procedures Name Priority Associated Diagnoses Date/Ti me COLONOSCOPY FLEXIBLE PROXIMAL DIAGNOSTIC Recall History of colon polyps Scheduled Referrals Name Type Priority Associated Diagnoses Orde r Schedule [facility] REFERRAL OP Referral Within 10 days (routine) Need for case management follow-up Chronic hypoxemic respiratory failure (HCC) COPD, group D, by GOLD 2017 classification (HCC) Chronic combined systolic and diastolic congestive heart failure (HCC) Ordered: 11/11/2024 Health Maintenance Due Date Last Done Comments Alpha-1 Antitrypsin 1982 HPV/Co-Test 1994 Cologuard 2009 Fecal Occult Blood Test 2009 Sigmoidoscopy 2009 Zoster Vaccines (2 of 2) 03/06/2021 01/09/2021 CKD PHOS USE SMARTSET 65915 03/29/2022 03/29/2021, 0 03/28/2021 Albumin/Creatinine Ratio 09/29/2023 09/29/2022, 05/0 03/2021 Mammogram 03/02/2024 03/02/2023, 02/21, 11/04/2016, Additional history exists COVID-19 Vaccine ( season) 2024 10/21/2023, 09/26/2022, 09/26/2022, Additional history exists Cervical Cancer Screening 12/04/2024 Pap Smear 12/04/2024 12/04/2021, 02/21, 03/03/2016, Additional history exists GFR 01/30/2025 08/02/2024, 06/0 04/2024, 04/05/2024, Additional history exists CKD HGB USE SMARTSET 54892 08/02/202508/02, 08/02/2024, 04/28/2024, Additional history exists O2 [...] of intracranial structures Atherosclerotic heart disease of [place] coronary artery with other forms of angina pectoris (HCC) Coronary artery disease involving solomon coronary artery of [place] heart without angina pectoris Acquired hypothyroidism Unspecified hypothyroidism Dyslipidemia, goal LDL below 70 Other and unspecified hyperlipidemia HFrEF (heart failure with reduced ejection fraction) (HCC) Other specified hypotension Acute on chronic respiratory failure with hypoxia (HCC) COPD, group C, by GOLD 2017 classification ([facility]) Neuropathic pain Neuralgia, neuritis, and radiculitis, unspecified LYNDON (generalized anxiety disorder) Generalized anxiety disorder Tobacco use disorder Vomiting and diarrhea Vomiting alone Sicca syndrome (HCC) Sicca syndrome Need for case management follow-up- Primary Chronic hypoxemic respiratory failure (HCC) Chronic respiratory failure COPD, group D, by GOLD 2017 classification [...] Name Relationship Healthcare Agent [facility] Communication Lopez Santiago Spouse First Alternate Health Care Agent [place] Adult Child Health Care Agent Care Teams Crook Operator Relationship Specialty Start Date End Date Ludy Jacobs CRNP [address] [place] [address] PCP - General Nurse Practitioner 04/20/24 documented as of this encounter
--- OUTSIDE RECORDS SUMMARY | 2025-01-15 19:48 | External Medical Summary | Summary of Care ---
Author Name Unknown Organization [facility] Address [address] [facility] [address] Phone [phone] Care Team Providers Care Behavioral Health Director Name Role Phone Martha Jacobssa Zeina LY Primary Care Provider Reason for Visit * Reason Onset Date Comments [facility]: Screening 11/11/2024 Encounter Details Date Type Department Care Team (Late st Contact Info) Description 11/11/2024 Telephone [facility], [facility] [address] [facility] [place] [phone] Huong Rizzo LPN [address] [facility] [address] [facility]: Screening Allergies Active Allergy [...] VALVED HOLDING CHAMBER DEVIIndications:CO PD with emphysema ([facility]) to be used with inhalers [...] COPD, group C, by GOLD 2017 classification ([facility]),Chronic hypoxemic respiratory failure ([facility]) Use with nebulized medications 1 Each 07/24/20 22 Active Full Kit Nebulizer SetIndications:ED PHYSICIANS D, group C, by GOLD 2017 classification ([facility]),Chronic hypoxemic respiratory failure ([facility]) Use with nebulizer 1 Each 07/24/20 22 Active Syringe 25G X 1-1/2" 3 ML Use for intramuscular B12 injection 1 Each 10/02/20 22 Active Albuterol Sulfate (2.5 MG/3ML) 0.083% Inhalation Nebulization Solution (Proventil)Indicat ions:COPD, group D, by GOLD 2017 classification ([facility]) Inhale 1 Vial via nebulizer [...] s:COPD, group C, by GOLD 2017 classification ([facility]) Inhale 2 Puffs by mouth [...] mgIndications:COPD, group D, by GOLD 2017 classification ([facility]) 2.5 mg NEBULIZER ONCE PRN [...] noted above Atherosclerotic heart diseas e of [place] coronary artery with other forms of angina [...] 4:32 PM EDT): Appointment scheduled with [facility] pain clinic [place] 07/02. Statin intolerance 01/24/2022 Osteopenia 01/08/2022 LYNDON [...] use aero chamber. 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 Took high dose replacement. Due to repeat. Coronary artery disease invo lving [place] coronary artery of [place] heart without angina pectoris 11/12/2015 Assessment & [...] use aero chamber. Test performed by Flex POOL LIFEGUARD CPFT Assessment & Plan (05/30/2022 4:27 PM [...] use aero chamber. Test performed by Flex POOL LIFEGUARD CPFT COPD, group B, by GOLD 2017 [...] (04/07/2012): PFT 03/2008 [facility] COPD, SEVERE 04/07/2012 05/04/2019 Overview: PER COPD PROTOCOL #24. PFT 03/2008 [facility] LAST PFT -06/07/12 Gastroesophageal reflux dise ase with esophagitis 04/30/2009 01/14/2022 Overview (05/15/2009): mild ADVANCE DIRECTIVE INFORMATION 12/02/2008 09/26/2024 Overview (12/02/2008): No, Advance Directive brochure offered , patient declined. COPD with emphysema 10/05/20 12 documented as of this encounter (statuses as of 11/11/2024) Immunizations Name Administration Dates Next Due COVID-19 mRNA, LNP-s, No Pre serve, 2-Dose Series ([employer]) 09/26/2022,11/18/2021,04/04/2021,02/28 COVID-19, MRNA-LNP, PF, 30 M CG/0.3 mL, 12 YRS AND ABOVE, IM ([employer]-ComirnatMusclePharm) 10/21/2023 Covid-19, Mrna, Lnp-s, Pf, B ivalent, [...] Telephone Care Coordination and Integration [address] [place] [address] Lulu Umaña, Community Health Tower Crane Operator [address] [place] [address] 11/22/2024 2:30 PM EST Telemedicine Cardiology [facility], [place] [address] [place] [address] [place], Pharmacist Cardiology [facility] [address] [place] [address] 02/13/2025 3:30 PM EDT Telemedicine Care at Home [address] [place] [address] Lulu Yee PA-C [address] [place] [address] Scheduled Procedures Name Priority Associated Diagnoses Date/Ti me COLONOSCOPY FLEXIBLE PROXIMAL DIAGNOSTIC Recall History of colon polyps Health Maintenance Due Date Last Done Comments Alpha-1 Antitrypsin 1982 HPV/Co-Test 1994 Cologuard 2009 Fecal Occult Blood Test 2009 Sigmoidoscopy 2009 Zoster Vaccines (2 of 2) 03/06/2021 01/09/2021 CKD PHOS USE SMARTSET 35496 03/29/2022 03/29/2021, 0 03/28/2021 Albumin/Creatinine Ratio 09/29/2023 09/29/2022, 05/0 03/2021 Mammogram 03/02/2024 03/02/2023, 02/21, 11/04/2016, Additional history exists COVID-19 Vaccine ( season) 2024 10/21/2023, 09/26/2022, 09/26/2022, Additional history exists Cervical Cancer Screening 12/04/2024 Pap Smear 12/04/2024 12/04/2021, 02/21, 03/03/2016, Additional history exists GFR 01/30/2025 08/02/2024, 06/0 04/2024, 04/05/2024, Additional history exists CKD HGB USE SMARTSET 32339 08/02/202508/02, 08/02/2024, 04/28/2024, Additional history exists O2 [...] Santiago Spouse First Alternate Health Care Agent [place] Adult Child Health Care Agent Care Teams Behavioral Health Director Relationship Specialty Start Date End Date Ludy Jacobs CRNP [address] [place] [address] PCP - General Nurse Practitioner 04/20/24 documented as of this encounter
--- OUTSIDE RECORDS SUMMARY | 2025-01-15 19:48 | External Medical Summary | Summary of Care ---
Author Name Unknown Organization [facility] Address [address] [address] Phone [phone] Care Team Providers Care Digital Tech Name Role Phone Martha Jacobssa Zeina LY Primary Care Provider Reason for Visit * Reason Onset Date Comments [facility]: Screening 11/11/2024 Encounter Details Date Type Department Care Team (Late st Contact Info) Description 11/11/2024 Telephone [facility], [facility] [address] [facility] [place] [id number] Huong Rizzo LPN [address] [facility] [id number] [facility]: Screening Allergies Active Allergy [...] VALVED HOLDING CHAMBER DEVIIndications:CO PD with emphysema ([facility]) to be used with inhalers as instructed [...] COPD, group C, by GOLD 2017 classification ([facility]),Chronic hypoxemic respiratory failure ([facility]) Use with nebulized medications 1 Each 07/24/20 22 Active Full Kit Nebulizer SetIndications:TRESTLE MAINTERNANCE LABORER D, group C, by GOLD 2017 classification ([facility]),Chronic hypoxemic respiratory failure ([facility]) Use with nebulizer 1 Each 07/24/20 22 Active Syringe 25G X 1-1/2" 3 ML Use for intramuscular B12 injection 1 Each 10/02/20 22 Active Albuterol Sulfate (2.5 MG/3ML) 0.083% Inhalation Nebulization Solution (Proventil)Indicat ions:COPD, group D, by GOLD 2017 classification ([facility]) Inhale 1 Vial via nebulizer 4 [...] s:COPD, group C, by GOLD 2017 classification ([facility]) Inhale 2 Puffs by mouth every [...] mgIndications:COPD, group D, by GOLD 2017 classification ([facility]) 2.5 mg NEBULIZER ONCE PRN 04/28/2024 [...] noted above Atherosclerotic heart diseas e of [place] coronary artery with other forms of angina [...] PM EDT): Appointment scheduled with [facility] pain clinic [place] 07/02. Statin intolerance 01/24/2022 Osteopenia 01/08/2022 LYNDON [...] use aero chamber. 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 Took high dose replacement. Due to repeat. Coronary artery disease invo lving [place] coronary artery of [place] heart without angina pectoris 11/12/2015 Assessment & [...] use aero chamber. Test performed by [employer] TOUR CONDUCTOR CPFT Assessment & Plan (05/30/2022 4:27 PM [...] use aero chamber. Test performed by [employer] TOUR CONDUCTOR CPFT COPD, group B, by GOLD 2017 [...] 04/07/2012 10/05/2012 Overview (04/07/2012): PFT 03/2008 [facility] COPD, SEVERE 04/07/2012 05/04/2019 Overview: PER COPD PROTOCOL #24. PFT 03/2008 [facility] LAST PFT -06/07/12 Gastroesophageal reflux dise ase with esophagitis 04/30/2009 01/14/2022 Overview (05/15/2009): mild ADVANCE DIRECTIVE INFORMATION 12/02/2008 09/26/2024 Overview (12/02/2008): No, Advance Directive brochure offered , patient declined. COPD with emphysema 10/05/20 12 documented as of this encounter (statuses as of 11/14/2024) Immunizations Name Administration Dates Next Due COVID-19 mRNA, LNP-s, No Pre serve, 2-Dose Series ([employer]) 09/26/2022,11/18/2021,04/04/2021,02/28 COVID-19, MRNA-LNP, PF, 30 M CG/0.3 mL, 12 YRS AND ABOVE, IM ([employer]) 10/21/2023 Covid-19, Mrna, Lnp-s, Pf, B ivalent, [...] Telephone Care Coordination and Integration [address] [place] [address] Lulu Umaña, Community Health Salt Plant Operator [address] [place] [address] 11/22/2024 2:30 PM EST Telemedicine Cardiology [facility], [place] [address] [place] [address] [place] [address], Pharmacist Cardiology Hf [address] [place] [address] 12/02/2024 11:00 AM EST Office Visit [facility] [address] [facility] [place] [address] Ludy Jacobs CRNP [address] [place] [address] 02/13/2025 3:30 PM EDT Telemedicine Care at Home [address] [place] [address] Lulu Yee PA-C [address] [place] [address] Scheduled Procedures Name Priority Associated [...] 2) 03/06/2021 01/09/2021 CKD PHOS USE SMARTSET 79990 03/29/2022 03/29/2021, 0 03/28/2021 Albumin/Creatinine Ratio 09/29/2023 09/29/2022, 05/0 03/2021 Mammogram 03/02/2024 03/02/2023, 02/21, 11/04/2016, Additional history exists COVID-19 Vaccine ( season) 2024 10/21/2023, 09/26/2022, 09/26/2022, Additional history exists Cervical Cancer Screening 12/04/2024 Pap Smear 12/04/2024 12/04/2021, 02/21, 03/03/2016, Additional history exists GFR 01/30/2025 08/02/2024, 06/0 04/2024, 04/05/2024, Additional history exists CKD HGB USE SMARTSET 17556 08/02/202508/02, 08/02/2024, 04/28/2024, Additional history exists O2 [...] Agents on File Name Relationship Healthcare Agent [facility] p Communication Lopez Santiago Spouse First Alternate Health Care Agent [place] Adult Child Health Care Agent Care Teams Digital Tech Relationship Specialty Start Date End Date Ludy Jacobs CRNP [address] [place] [address] PCP - General Nurse Practitioner 04/20/24 documented as of this encounter
--- OUTSIDE RECORDS SUMMARY | 2025-01-15 19:49 | External Medical Summary | Summary of Care ---
Author Name Unknown Organization [facility] Address [address] [place] [address] Phone [phone] Care Team Providers Care Business Services Officer Name Role Phone Ludy Jacobs Zeina LY Primary Care Provider Encounter Details Date Type Department Care Team (Late st Contact Info) Description 11/11/2024 9:05 AM EST Scheduled Telephone Care Coordination and Integration [address] [place] [address] Lulu Umaña, Community Health Hand Blocker [address] [place] [address] Allergies Active Allergy Reactions Criticality [...] COPD, group C, by GOLD 2017 classification ([facility]),Chronic hypoxemic respiratory failure ([facility]) Use with nebulized medications 1 Each 07/24/20 22 Active Full Kit Nebulizer SetIndications: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 D, group C, by GOLD 2017 classification ([facility]),Chronic hypoxemic respiratory failure ([facility]) Use with nebulizer 1 Each 07/24/20 22 Active Syringe 25G X 1-1/2" 3 ML Use for intramuscular B12 injection 1 Each 10/02/20 22 Active Albuterol Sulfate (2.5 MG/3ML) 0.083% Inhalation Nebulization Solution (Proventil)Indicat ions:COPD, group D, by GOLD 2017 classification ([facility]) Inhale 1 Vial via nebulizer [...] (HCC),HFrEF (heart failure with reduced ejection fraction) ([facility]) Take 1 Tablet by mouth [...] s:COPD, group C, by GOLD 2017 classification ([facility]) Inhale 2 Puffs by mouth [...] noted above Atherosclerotic heart diseas e of [place] coronary artery with other forms of angina [...] (05/30/2022 4:32 PM EDT): Appointment scheduled with [facility] pain clinic [place] 07/02. Statin intolerance 01/24/2022 Osteopenia 01/08/2022 [...] use aero chamber. Test performed by [employer] DATA WAREHOUSING ARCHITECT CPFT Circadian rhythm sleep disorder 09/17/2018 Nocturnal hypoxemia due to emphysema 07/30/2018 Adjustment disorder with mixed anxiety and depre ssed mood 07/04/2018 TERMINATED MEDICATION USAGE AGREEMENT 06/03/2018 Dupuytren's contracture of left hand 02/01/2018 Mixed incontinence urge and stress (male)(female ) 03/20/2017 Vitamin D deficiency 03/03/2016 Overview (03/03/2016): March 2015 = 13. Took high dose replacement. Due to repeat. Coronary artery disease invo lving [place] coronary artery of [place] heart without angina pectoris 11/12/2015 Assessment & [...] use aero chamber. Test performed by Flex DATA WAREHOUSING ARCHITECT CPFT Assessment & Plan (05/30/2022 4:27 PM [...] moderate 04/07/2012 10/05/2012 Overview (04/07/2012): PFT 03/2008 [facility] COPD, SEVERE 04/07/2012 05/04/2019 Overview: PER COPD PROTOCOL #24. PFT 03/2008 [facility] LAST PFT -06/07/12 Gastroesophageal reflux dise ase with esophagitis 04/30/2009 01/14/2022 Overview (05/15/2009): mild ADVANCE DIRECTIVE INFORMATION 12/02/2008 09/26/2024 Overview (12/02/2008): No, Advance Directive brochure offered , patient declined. COPD with emphysema 10/05/20 12 documented as of this encounter (statuses as of 11/11/2024) Immunizations Name Administration Dates Next Due COVID-19 mRNA, LNP-s, No Pre serve, 2-Dose Series ([employer]) 09/26/2022,11/18/2021,04/04/2021,02/28 COVID-19, MRNA-LNP, PF, 30 M CG/0.3 mL, 12 YRS AND ABOVE, IM ([facility]) 10/21/2023 Covid-19, Mrna, Lnp-s, Pf, B ivalent, 30 Mcg, IM, 12 yrs and above ([employer]) 09/26/2022 HEPATITIS B VACCINE, RECOMB, 20 MCG/ML, [...] 5:37 AM EDT Valentino Child, RN documented in this encounter Progress Notes * Lulu Umaña, Community Health Hand Blocker - 11/11/2024 9:10 AM EST Telemedicine visit: No Community Health Hand Blocker (DEVIN) documentation: CHW outbound call to patient UTC Left message for spouse to reach out to Tamika R. Supplied number Lulu Umaña [facility] Community Health Worker Call or Text- [phone] documented in this encounter Plan of Treatment Upcoming Encounters Date Type Department Care Team (Late st Contact Info) Description 11/15/2024 8:00 AM EST Scheduled Telephone Care Coordination and Integration [address] [place] [address] Lulu Umaña Community Health Hand Blocker [address] [place] [address] 11/22/2024 2:30 PM EST Telemedicine Cardiology [facility] [place] [address] [place] [address] [place] [address], Pharmacist Cardiology Hf [address] [place] [address] 02/13/2025 3:30 PM EDT Telemedicine Care at Home [address] [place] [address] Lulu Yee PA-C [address] [place], [place] [id number] Scheduled Procedures Name Priority Associated Diagnoses Date/Ti me COLONOSCOPY FLEXIBLE PROXIMAL DIAGNOSTIC Recall History of colon polyps Health Maintenance Due Date Last Done Comments Alpha-1 Antitrypsin 1982 HPV/Co-Test 1994 Cologuard 2009 Fecal Occult Blood Test 2009 Sigmoidoscopy 2009 Zoster Vaccines (2 of 2) 03/06/2021 01/09/2021 CKD PHOS USE SMARTSET 50835 03/29/2022 03/29/2021, 0 03/28/2021 Albumin/Creatinine Ratio 09/29/2023 09/29/2022, 05/0 03/2021 Mammogram 03/02/2024 03/02/2023, 02/21, 11/04/2016, Additional history exists COVID-19 Vaccine ( season) 2024 10/21/2023, 09/26/2022, 09/26/2022, Additional history exists Cervical Cancer Screening 12/04/2024 Pap Smear 12/04/2024 12/04/2021, 02/21, 03/03/2016, Additional history exists GFR 01/30/2025 08/02/2024, 06/0 04/2024, 04/05/2024, Additional history exists CKD HGB USE SMARTSET 75584 08/02/202508/02, 08/02/2024, 04/28/2024, Additional history exists O2 [...] Santiago Spouse First Alternate Health Care Agent [place] Adult Child Health Care Agent Care Teams Business Services Officer Relationship Specialty Start Date End Date Ludy Jacobs CRNP [address] [place] [address] PCP - General Nurse Practitioner 04/20/24 documented as of this encounter
--- NOTE | 2025-01-15 20:07 | Emergency Department Note ---
Impression & Plan Abnormal ECG, Elevated troponin, Shortness of breath, Upper respiratory infection, viral ED Provider Note NAME: ANISHA KINGSLEY AGE: 59 SEX: F : 1965 ARRIVES VIA: Walk-In INFORMANT: Patient ED PROVIDER(S): Huber Bunn DO CHIEF COMPLAINT: Shortness of breath cough congestion HPI: Patient is a 59-year-old female with a past medical history of asthma and COPD, chronic heart failure with preserved EF, CKD, hypertension, pericardial effusion, UNRULY who presents to the ER for significant weakness. She feels like she cannot get up and move around. Symptoms started about 3 to 4 days ago. She admits to cough and congestion. She saw her PCP who tried to work her up and improve as an outpatient. Symptoms have been worsening consequently she was referred in. Chronically on 2 to 3 L nasal cannula. ADDITIONAL HISTORY OBTAINED: Per HPI Chronic Medical/Social Conditions Affecting Care: Per HPI PAST MEDICAL HISTORY:See Below PAST SURGICAL HISTORY:See Below FAMILY HISTORY:See Below SOCIAL HISTORY:See Below HOME MEDICATIONS:See Below ALLERGIES:See Below VITALS:See Below PHYSICAL EXAMINATION: GENERAL: Sitting up in bed, alert, chronically ill-appearing, disheveled EYE EXAM: normal conjunctiva. OROPHARYNX: no exudate, no erythema, lips, buccal mucosa, and tongue normal and mucous membranes are moist NECK: supple, no nuchal rigidity, no adenopathy, non-tender LUNGS: Wheezing bilaterally, normal chest wall mechanics HEART: no murmurs, S1 normal and S2 normal ABDOMEN: abdomen soft, non-tender, normo-active bowel sounds, no masses, no rebound or guarding. UPPER EXTREMITIES: upper extremities are grossly normal. LOWER EXTREMITIES: No pitting edema. NEURO EXAM: Normal sensorium, cranial nerves II-XII grossly intact, normal speech, no gross weakness of arms, no gross weakness of legs. MEDICAL DECISION MAKING: Patient is a 59-year-old female who presents ER for the above-stated complaint. IV was established and blood work was obtained. Labs show leukocytosis of 12,000. No significant anemia. BMP with LFTs and bilirubin was unremarkable. Troponins were elevated at 30. EKG with new T wave inversions in the inferior and lateral leads. This is new in comparison to previous old records. Bio fire was negative. Chest x-ray was clean. CTA of the chest showed no acute PE. Patient was given IV fluids and remained on 3 L nasal cannula while in the ER. She was updated bedside discussed with the hospitalist Dr. Mendoza for further evaluation management and treatment. Patient never had any active chest pain while in the ER. Consults/Care Managements Discussions: Per [facility] Triage Nursing notes reviewed. Limited review of prior medical records performed Vital Signs: reviewed and remarkable for hypotension, on chronic 2 L nasal cannula Differential diagnosis: Differential diagnoses includes but is not limited to pneumonia, bronchitis, COPD/Asthma exacerbation, pneumothorax, pulmonary embolism, congestive heart failure, acute coronary syndrome ER treatment provided: See below Diagnostics interpreted by me include EKG and cardiac monitoring as listed below: -Cardiac Monitoring: An order was placed for continuous cardiac monitoring. The monitor shows a rate of 80 with sinus rhythm. -ECG: Sinus rhythm rate 77 Normal axis T wave inversions in the inferior leads PVCs T wave inversions in the lateral leads QTc 486 T wave inversions are new in comparison to previous -Laboratory studies:Interpreted by me as stated above in MDM and shown below. Imaging studies: Xrays: As interpreted by me: Portable AP upright 1 view of the chest shows no focal infiltrate CTs show: CT angio the chest was negative Procedures:none Critical Care: None Past Med/Surg History Problem List (Updated 01/16/25 @ 01:03 by Huber Bunn DO) Upper respiratory infection, viral (Acute) Shortness of breath (Acute) Elevated troponin (Acute) Abnormal ECG (Acute) Chronic heart failure with preserved ejection fraction Asthma exacerbation in COPD (Acute) Acute metabolic encephalopathy (Acute) Left lower lobe pneumonia Encounter for pre-operative examination Acute on chronic heart failure with reduced ejection fraction and diastolic dysfunction CKD (chronic kidney disease), stage III (Acute) Acute on chronic respiratory failure with hypoxia DVT prophylaxis Pulmonary nodule Pericardial effusion Hypotension Bacteremia Prolonged QT interval Hypertension Diarrhea (Acute) Lab test negative for COVID-19 virus (Acute) Nausea & vomiting (Acute) Colitis (Acute) Acute dehydration (Acute) Electrolyte abnormality Hypomagnesemia (Acute) Nausea and vomiting (Acute) Hypokalemia (Acute) Generalized abdominal pain (Acute) Pericardial effusion Left ventricular systolic dysfunction UNRULY (acute kidney injury) Chronic pericarditis with effusion UTI (urinary tract infection) Acute respiratory failure with hypercapnia Acute exacerbation of chronic obstructive pulmonary disease (Acute) Acute respiratory distress (Acute) Influenza A (Acute) Hypotension Volume overload Acute respiratory failure with hypoxia Anxiety Depression Electrolyte abnormality Transaminitis DVT prophylaxis COPD (chronic obstructive pulmonary disease) (Acute) HLD (hyperlipidemia) Rhabdomyolysis Acute renal failure Pulmonary nodule Nausea (Acute) Hypokalemia (Acute) COPD exacerbation (Acute) Wrist pain, right (Acute) Seizure (Acute) Influenza A (Acute) Hypoxia (Acute) Hypokalemia (Acute) Hypokalemia (Acute) Hypokalemia (Acute) COPD exacerbation (Acute) COPD exacerbation (Acute) Bronchitis (Acute) Asthma exacerbation in COPD (Acute) Acute bronchitis (Acute) Acute bronchitis (Acute) Cellulitis (Acute) CAD (coronary artery disease) Hypothyroidism HFrEF (heart failure with reduced ejection fraction) hx Medical History Emphysema/COPD daily nebulizer, and prn neb and inh; f/u pulmonology at [facility] and [place] 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 History of colitis Decreased mobility lt arm>CRPS PTSD (post-traumatic stress disorder) Unique anesthetic considerations on preoperative anesthesia assessment high level anxiety when sedated, hx intubation w Flu A....PTSD, "gets scared when put to sleep" History of colon polyps Low blood pressure currently on midodrine; f/u [facility] cardio at and [place] History of influenza INFLUENZA A, February 2022 - [facility] hospitalization, "intubated while in the hospital" Pain syndrome, chronic chronic regional pain syndrome : left arm/received lidocaine injections in [place]/every three months/due may 2023. left limb restriction. History of renal failure "from her crestor medication" Oxygen dependent 2 L o2 continuous. Emphysema lung Statin intolerance Chronic pain see pain clinic for lt arm and neck, @[facility] Anxiety Shortness of breath chronic Neurofibromatosis Hypokalemia HX / CAN NOT TOLERATE PO POTASSIUM PILLS DUE TO GASTROPARESIS Hx of bronchitis Myocardial infarction 2010 - CHEST PAIN -[facility] ER AND HAD HEART CATH WITH ONE STENT (BARE METAL) FOLLOW WITH [facility] C[facility] Seizure 2013 ONLY HAD ONE -- ADMITTED TO [facility] --- METABOLIC RELATED ---- NO MEDICATION Pneumothorax AGE 24 - SURGERY TO REPAIR THE LEFT SIDE AND CHEMICAL TREATMENT ON THE RIGHT SIDE AT [place] Gastroparesis Cavernous hemangioma of brain stable Surgical History Hx of right cataract extraction History of heart artery stent 2010, [facility], x1 stent; f[facility]u [facility] History of endoscopy Hx of colonoscopy Hx of vaginal surgery 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 Hx of section X2 Hx of cardiac cath 2010, [place], [facility], x1 stent; f/u [facility] cardio at [facility] History of hernia repair UMBILICAL Family History Father Lung disease Severe emphysema, pneumothorax Brother Family history of diabetes mellitus Brother Family history of diabetes mellitus Family/Other Family history of cancer Aunt Family history of colonic polyps Grandfather Family history of lymphoma Social History Smoking Status: Former smoker Tobacco Type: Cigarettes Age Started Using Tobacco: 11; Age Quit Using Tobacco: 53; packs per day: 1; Cigarettes Per Day: has 1 occasionally; Second Hand Exposure: Yes; Do You Dip or Chew Tobacco: No; Hx Alcohol Use: Yes Alcohol type: beer, wine and hard liquor Hx Substance Use: Yes Last Used Substance: Days (ago) Last Used Substance Other:: daily-"just a few hits a day" Preferred Language: Greek Communication Ability: Effective Sql [employer] Required: No Beliefs That Will Affect Care: None marital status: Current Living Situation: Spouse Current Living Situation Comment: C/ , daughter How many Children do You have: 3 Feels Safe at Home: Yes Assistive Devices: Nebulizer, Oxygen - at Night, Walker and Wheelchair Allergies Allergies Allergy/AdvReac Type Severity Reaction Status Date / Time tramadol Allergy Severe Seizure Verified 10/13/24 00:02 adhesive Allergy Mild BANDAIDS : Verified 10/13/24 00:02 SKIN ABRASION ketorolac [From Toradol] Allergy Mild HX KIDNEY Verified 10/13/24 00:02 FAILURE adhesive tape Allergy Unknown SKIN TEARS Verified 10/13/24 00:02 ibuprofen Allergy Unknown HX KIDNEY Verified 10/13/24 00:02 FAILURE NSAIDS (Non-Steroidal Allergy Unknown HX KIDNEY Verified 10/13/24 00:02 Anti-Inflamma FAILURE Sulfa (Sulfonamide Allergy Unknown HIVES Verified 10/13/24 00:02 Antibiotics) meperidine AdvReac Unknown NOT A Verified 10/13/24 00:02 VERIFIED RXN: MOOD SWINGS prednisone AdvReac Unknown Patient Verified 10/13/24 00:02 Reports Contraindication in Kidney Failure/SEE NOTES rosuvastatin [From Crestor] AdvReac Unknown Weakness, Verified 10/13/24 00:02 RHABDOMYLOSIS, ACUTE RENAL FAILURE Home Meds Home Medications Medication Instructions Recorded Confirmed albuterol sulfate 90 mcg/actuation 2 puff inhalation Q4H PRN 11/11/24 01/15/25 aerosol inhaler Shortness Of Breath Or Wheezing aspirin 81 mg tablet,delayed 81 mg PO DAILY 11/11/24 01/15/25 release empagliflozin 10 mg tablet 10 mg PO DAILY 11/11/24 01/15/25 (Jardiance) evolocumab 140 mg/mL subcutaneous 140 mg subcut UD 11/11/24 01/15/25 pen injector (Reyes Muro) fluticasone 250 mcg-salmeterol 50 1 inh inhalation AMHS 11/11/24 01/15/25 mcg/dose blistr powdr for inhalation folic acid 1 mg tablet 1 mg PO QAM 11/11/24 01/15/25 ipratropium 0.5 mg-albuterol 3 mg 3 ml inhalation QID PRN Shortness 11/11/24 01/15/25 (2.5 mg base)/3 mL nebulization Of Breath Or Wheezing soln levothyroxine 75 mcg tablet 75 mcg PO DAILY 11/11/24 01/15/25 (Synthroid) lorazepam 0.5 mg tablet 0.5 mg PO DAILY PRN Anxiety 11/11/24 01/15/25 methocarbamol 500 mg tablet 500 mg PO QID PRN muscle spasms 11/11/24 01/15/25 metoprolol succinate 50 mg 50 mg PO UD 11/11/24 01/15/25 tablet,extended release 24 hr midodrine 5 mg tablet 5 mg PO TID 11/11/24 01/15/25 omeprazole 20 mg capsule,delayed 20 mg PO AMHS 11/11/24 01/15/25 release ondansetron HCl 4 mg tablet 4 mg PO TID PRN Nausea And Vomiting 11/11/24 01/15/25 oxycodone 5 mg tablet 5 mg PO Q4H PRN Pain, Severe 11/11/24 01/15/25 paroxetine HCl 40 mg tablet 40 mg PO HS 11/11/24 01/15/25 pregabalin 75 mg capsule 75 mg PO TID 11/11/24 01/15/25 sacubitril 24 mg-valsartan 26 mg 1 tab PO AMHS 11/11/24 01/15/25 tablet (Entresto) azithromycin 250 mg tablet 250 mg PO UD 01/15/25 01/15/25 levothyroxine 75 mcg tablet 75 mcg PO DAILYBB 01/15/25 01/15/25 (Synthroid) prednisone 5 mg tablet 5 mg PO QAM 01/15/25 01/15/25 spironolactone 25 mg tablet 12.5 mg PO QAM 01/15/25 01/15/25 Results & Data (ED) Vital Signs Vital Signs - 24 hr 01/15/25 19:38 01/15/25 19:50 01/15/25 19:52 Temperature 36.9 C Temperature Source Oral Pulse Rate 81 Pulse Rate [Apical] 76 Pulse Rate from SpO2 Sensor Pulse Rhythm Regular Pulse Rhythm [Apical] Pulse Strength Normal Respiratory Rate 21 18 Respiratory Effort / Characteristics Non-Labored Spontaneous Non-Labored Respiratory Depth Normal Normal Respiratory Pattern Regular Blood Pressure 102/85 Blood Pressure [Right Arm] 99/76 L Blood Pressure Mean 90 Blood Pressure Mean [Right Arm] 83 Pulse Oximetry 97 99 Oxygen Delivery Method Room Air Nasal Cannula Room Air Oxygen Flow Rate 3 Sepsis Recent Fever Within 48 Hours No Sepsis New/Unexplained Change in Mental Status No Sepsis Action Taken by Nursing No Action Required 01/15/25 20:30 01/15/25 20:39 01/15/25 22:00 Temperature Temperature Source Pulse Rate 77 Pulse Rate [Apical] 76 72 Pulse Rate from SpO2 Sensor Pulse Rhythm Pulse Rhythm [Apical] Regular Pulse Strength Respiratory Rate 18 16 Respiratory Effort / Characteristics Non-Labored Non-Labored Respiratory Depth Normal Normal Respiratory Pattern Blood Pressure Blood Pressure [Right Arm] 106/84 103/69 Blood Pressure Mean Blood Pressure Mean [Right Arm] 91 80 Pulse Oximetry 99 98 Oxygen Delivery Method Nasal Cannula Room Air Oxygen Flow Rate 3 Sepsis Recent Fever Within 48 Hours Sepsis New/Unexplained Change in Mental Status Sepsis Action Taken by Nursing 01/15/25 22:45 01/15/25 23:01 01/15/25 23:51 Temperature Temperature Source Pulse Rate 76 70 Pulse Rate [Apical] Pulse Rate from SpO2 Sensor 78 Pulse Rhythm Pulse Rhythm [Apical] Pulse Strength Respiratory Rate 15 Respiratory Effort / Characteristics Respiratory Depth Respiratory Pattern Blood Pressure 105/74 Blood Pressure [Right Arm] Blood Pressure Mean 85 Blood Pressure Mean [Right Arm] Pulse Oximetry 98 Oxygen Delivery Method Oxygen Flow Rate Sepsis Recent Fever Within 48 Hours Sepsis New/Unexplained Change in Mental Status Sepsis Action Taken by Nursing 01/16/25 00:00 01/16/25 00:03 01/16/25 00:49 Temperature Temperature Source Pulse Rate 73 Pulse Rate [Apical] 78 Pulse Rate from SpO2 Sensor 72 Pulse Rhythm Pulse Rhythm [Apical] Pulse Strength Respiratory Rate 21 20 Respiratory Effort / Characteristics Respiratory Depth Respiratory Pattern Blood Pressure 107/78 Blood Pressure [Right Arm] 123/90 Blood Pressure Mean 81 Blood Pressure Mean [Right Arm] 101 Pulse Oximetry 100 99 Oxygen Delivery Method Nasal Cannula Nasal Cannula Oxygen Flow Rate 3 3 Sepsis Recent Fever Within 48 Hours Sepsis New/Unexplained Change in Mental Status Sepsis Action Taken by Nursing Laboratory Data 01/15/25 20:26 01/15/25 20:26 Lab Results 01/15/25 01/15/25 01/15/25 Range/Units 20:00 20:26 22:40 WBC 12.16 H (4.8-10.8) K/ul RBC 4.73 (4.20-5.40) M/uL Hgb 15.4 (12.0-16.0) g/dl Hct 46.2 (37.0-47.0) % MCV 97.7 (80.0-100.0) fL MCH 32.6 (25.0-34.0) pg MCHC 33.3 (32.0-36.0) g/dL RDW Std Deviation 45.0 (36.4-46.3) fL RDW Coeff of Akiko 12.5 (11.5-14.5) % Plt Count 336 (130-400) K/uL MPV 10.1 (9.4-12.4) fL Immature Gran % (Auto) 0.6 % Neut % (Auto) 81.3 % Lymph % (Auto) 12.7 % Divide % (Auto) 3.9 % Eos % (Auto) 1.2 % Baso % (Auto) 0.3 % Neut # (Auto) 9.89 H (1.40-6.50) K/uL Lymph # (Auto) 1.54 (1.20-3.40) K/uL Divide # (Auto) 0.47 (0.11-0.59) K/uL Eos # (Auto) 0.15 (0.00-0.50) K/uL Baso # (Auto) 0.04 (0.00-0.20) K/uL Immature Gran # (Auto) 0.07 (0.01-0.20) K/uL Sodium 139 (136-145) mmol/L Potassium 4.2 (3.5-5.1) mmol/L Chloride 103 (98-107) mmol/L Carbon Dioxide 30 (21-32) mmol/L Anion Gap 6 (3-11) BUN 21 (6-23) mg/dl Creatinine 1.24 H (0.6-1.2) mg/dl Est Cr Clr Drug Dosing 43.4 ml/min eGFR 49.82 BUN/Creatinine Ratio 16.9 (10-20) Glucose 146 H (70-99(Fasting)) mg/dl Lactate 1.0 (0.4-2.0) mmol/L Calcium 9.2 (8.6-10.3) mg/dl Magnesium 2.1 (1.7-2.4) mg/dl Total Bilirubin 0.4 (0.2-1.0) mg/dl AST 11 L (13-39) U/L ALT 8 (7-52) U/L Alkaline Phosphatase 49 (34-104) U/L Troponin I High Sens 33.9 H 32.9 H (0-14) pg/ml Total Protein 7.0 (6.0-8.3) gm/dl Albumin 4.3 (3.4-5.0) gm/dl Globulin 2.7 (2.5-4.0) gm/dl Albumin/Globulin Ratio 1.6 (0.9-2) Lipase 32 (11-82) U/L Adenovirus (PCR) Not Detected (NotDetected) B. pertussis DNA (PCR) Not Detected (NotDetected) B.parapertussis DNA PCR Not Detected (NotDetected) C. pneumoniae DNA (PCR) Not Detected (NotDetected) Coronavirus OC43 (PCR) Not Detected (NotDetected) Coronavirus HKU1 (PCR) Not Detected (NotDetected) Coronavirus 229E (PCR) Not Detected (NotDetected) SARS-CoV-2 (PCR) Not Detected (NotDetected) Coronavirus NL63 (PCR) Not Detected (NotDetected) Human Metapneumovir PCR Not Detected (NotDetected) Influenza Type A (PCR) Not Detected (NotDetected) Influenza Type B (PCR) Not Detected (NotDetected) M. pneumoniae (PCR) Not Detected (NotDetected) Parainfluenza 1 (PCR) Not Detected (NotDetected) Parainfluenza 2 (PCR) Not Detected (NotDetected) Parainfluenza 3 (PCR) Not Detected (NotDetected) Parainfluenza 4 (PCR) Not Detected (NotDetected) RSV (PCR) Not Detected (NotDetected) Entero/Rhino (PCR) Not Detected (NotDetected) Administered Medications Sodium Chloride (Nss) 1,000 mls @ 75 mls/hr IV .[id number] ONE Stop: 01/16/25 11:27 Last Admin: 01/15/25 22:51 Dose: 75 mls/hr Documented By: HB Discontinued Medications Ioversol (Optiray 320 125ml) 119 ml IV ONCE ONE Stop: 01/15/25 21:09 Last Admin: 01/15/25 21:09 Dose: 119 ml Documented By: EDK Imaging Data Radiologist's Impression: Chest X-Ray 01/15/25 19:52 Exam(s): XR CXR 1 VIEW EXAM: XR Chest, 1 View CLINICAL HISTORY: Reason for exam: Chest pain, nonspecific. TECHNIQUE: Frontal view of the chest. COMPARISON: 11/10/24 FINDINGS: Lungs: Emphysema. No consolidation. Postoperative change at the left lung apex. Pleural space: No pleural effusion or pneumothorax. Heart: No cardiomegaly or pulmonary vascular congestion. Bones/joints: No acute fracture. No dislocation. IMPRESSION: No acute findings in the chest. Electronically signed by: Sherice Pleitez M.D. 01/15/25 21:03 PM Chest CTA 01/15/25 20:07 Exam(s): CTA CHEST IV Amt: 119ml opti 320 EXAM: CT Angiography Chest With Intravenous Contrast CLINICAL HISTORY: Reason for exam: sob ekg changes. TECHNIQUE: Axial computed tomographic angiography images of the chest with intravenous contrast. CTDI is 22.98 mGy and DLP is 443.9 mGy-cm. Automated exposure control was utilized for the study. A dose lowering technique was utilized adhering to the principles of ALARA. MIP reconstructed images were created and reviewed. COMPARISON: 08/31/24 FINDINGS: Pulmonary arteries: Unremarkable. No evidence of acute pulmonary embolism. Aorta: No acute findings. No aortic aneurysm or dissection. Hepatic veins: Reflux of contrast into the hepatic veins suggesting elevated right heart pressure. Lungs: Severe emphysema. Biapical pleural-parenchymal scarring. Stable 7 mm left upper lobe nodule (series 2, image 98), unchanged across multiple prior examinations and considered benign. Bronchial wall thickening. No consolidation. Pleural space: Unremarkable. No significant effusion. No pneumothorax. Heart: No cardiomegaly. Trace pericardial effusion. 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 No acute fracture. No dislocation. Soft tissues: Unremarkable. Lymph nodes: Unremarkable. No enlarged lymph nodes. IMPRESSION: 1. No evidence of acute pulmonary embolism. 2. Severe emphysema. Pulmonary emphysema is an independent risk factor for lung cancer. Consider patient evaluation for low-dose cancer screening protocol. 3. Reflux of contrast into the hepatic veins suggesting elevated right heart pressure. Electronically signed by: Sherice Pleitez M.D. 01/15/25 22:51 PM Discharge Plan Visit Data Chief Complaint: Referred by Doctor Stated Complaint: SOB, DOC SAID TO COME OVER ED Provider: Huber Bunn Discharge Problem: Abnormal ECG, Elevated troponin, Shortness of breath, Upper respiratory infection, viral Forms Stand Alone Forms: My [facility] Prescriptions Prescriptions: No Action methocarbamol 500 mg tablet 500 mg PO QID PRN (Reason: muscle spasms) fluticasone propion-salmeterol 250-50 mcg/dose blister with device 1 inh INHALATION AMHS ipratropium-albuterol 0.5 mg-3 mg(2.5 mg base)/3 mL solution for nebulization 3 ml INHALATION QID PRN (Reason: Shortness Of Breath Or Wheezing) metoprolol succinate 50 mg tablet extended release 24 hr 50 mg PO UD Rx Instructions: 50mg in am and 25mg q hs ondansetron HCl 4 mg tablet 4 mg PO TID PRN (Reason: Nausea And Vomiting) midodrine 5 mg tablet 5 mg PO TID Rx Instructions: 5mg PO TID at 8AM, NOON AND 5PM aspirin 81 mg Tablet,Delayed Release (Dr/Ec) 81 mg PO DAILY levothyroxine [Synthroid] 75 mcg tablet 75 mcg PO DAILY lorazepam 0.5 mg tablet 0.5 mg PO DAILY PRN (Reason: Anxiety) omeprazole 20 mg capsule,delayed release(DR/EC) 20 mg PO AMHS folic acid 1 mg tablet 1 mg PO QAM albuterol sulfate 90 mcg/actuation HFA aerosol inhaler 2 puff INHALATION Q4H PRN (Reason: Shortness Of Breath Or Wheezing) paroxetine HCl 40 mg tablet 40 mg PO HS oxycodone 5 mg tablet 5 mg PO Q4H PRN (Reason: Pain, Severe) pregabalin 75 mg capsule 75 mg PO TID Jardiance 10 mg tablet 10 mg PO DAILY sacubitril-valsartan [Entresto] 24-26 mg tablet 1 tab PO AMHS Repatha SureClick 140 mg/mL pen injector 140 mg SUBCUT UD Rx Instructions: every 2 weeks azithromycin 250 mg tablet 250 mg PO UD spironolactone 25 mg tablet 12.5 mg PO QAM prednisone 5 mg tablet 5 mg PO QAM levothyroxine [Synthroid] 75 mcg tablet 75 mcg PO DAILYBB Referrals Referrals: Ludy Jacobs CRNP [Primary Care Provider] -
[2025-01-15 20:59] LABS: Albumin Globulin Ratio 1.6 (0.9-2); Albumin Level 4.3 gm/dl (3.4-5.0); BUN Creatinine Ratio 16.9 (10-20); Bilirubin,Total 0.4 mg/dl (0.2-1.0); Calcium 9.2 mg/dl (8.6-10.3); Creatinine Clr Calc Pharmacy 43.4 ml/min; Globulin 2.7 gm/dl (2.5-4.0); Potassium 4.2 mmol/L (3.5-5.1)
[2025-01-15 21:03] LABS: Adenovirus PCR Not Detected (NotDetected); Bordetella parapertussis PCR Not Detected (NotDetected); Bordetella pertussis PCR Not Detected (NotDetected); Chlamydia pneumoniae PCR Not Detected (NotDetected); Coronavirus 229E PCR Not Detected (NotDetected); Coronavirus CoV-2 (COVID19)PCR Not Detected (NotDetected); Coronavirus HKU1 PCR Not Detected (NotDetected); Coronavirus NL63 PCR Not Detected (NotDetected); Coronavirus OC43PCR Not Detected (NotDetected); Human Metapneumovirus PCR Not Detected (NotDetected); Influenza A PCR Not Detected (NotDetected); Influenza B PCR Not Detected (NotDetected); Mycoplasma pneumoniae PCR Not Detected (NotDetected); Parainfluenza Virus 1 PCR Not Detected (NotDetected); Parainfluenza Virus 2 PCR Not Detected (NotDetected); Parainfluenza Virus 3 PCR Not Detected (NotDetected); Parainfluenza Virus 4 PCR Not Detected (NotDetected); Respiratory Syncytial VirusPCR Not Detected (NotDetected); Rhinovirus/Enterovirus PCR Not Detected (NotDetected)
--- NOTE | 2025-01-15 21:04 | XRay Report ---
Exam(s): XR CXR 1 VIEW EXAM: XR Chest, 1 View CLINICAL HISTORY: Reason for exam: Chest pain, nonspecific. TECHNIQUE: Frontal view of the chest. COMPARISON: 11/10/24 FINDINGS: Lungs: Emphysema. No consolidation. Postoperative change at the left lung apex. Pleural space: No pleural effusion or pneumothorax. Heart: No cardiomegaly or pulmonary vascular congestion. Bones/joints: No acute fracture. No dislocation. IMPRESSION: No acute findings in the chest. Electronically signed by: Sherice Pleitez M.D. 01/15/25 21:03 PM
[2025-01-15 21:05] LABS: Troponin I High Sensitivity 33.9 pg/ml (0-14)
[2025-01-15] MEDS: OPTIRAY 320 125ml IV ONE (21:09)
[2025-01-15 21:10] LABS: Basophils # (auto) 0.04 K/uL (0.00-0.20); Basophils % (auto) 0.3 %; Eosinophils # (auto) 0.15 K/uL (0.00-0.50); Eosinophils % (auto) 1.2 %; Hematocrit (blood only) 46.2 % (37.0-47.0); Hemoglobin 15.4 g/dl (12.0-16.0); Immature Granulocytes # (auto) 0.07 K/uL (0.01-0.20); Immature Granulocytes % (auto) 0.6 %; Lymphocytes # (auto) 1.54 K/uL (1.20-3.40); Lymphocytes % (auto) 12.7 %; Mean Corpuscular Hemoglobin 32.6 pg (25.0-34.0); Mean Corpuscular Hgb Conc 33.3 g/dL (32.0-36.0); Mean Corpuscular Volume 97.7 fL (80.0-100.0); Mean Platelet Volume 10.1 fL (9.4-12.4); Monocytes # (auto) 0.47 K/uL (0.11-0.59); Monocytes % (auto) 3.9 %; Neutrophils # (auto) 9.89 K/uL (1.40-6.50); Neutrophils % (auto) 81.3 %; Platelet Count 336 K/uL (130-400); RDW Coefficient of Variation 12.5 % (11.5-14.5); Red Blood Count 4.73 M/uL (4.20-5.40); White Blood Count 12.16 K/ul (4.8-10.8)
[2025-01-15] MEDS: SODIUM CHLORIDE 0.9% 1,000 ML IV ONE (22:51)
--- NOTE | 2025-01-15 22:51 | CT Scan Report ---
Exam(s): CTA CHEST IV Amt: 119ml opti 320 EXAM: CT Angiography Chest With Intravenous Contrast CLINICAL HISTORY: Reason for exam: sob ekg changes. TECHNIQUE: Axial computed tomographic angiography images of the chest with intravenous contrast. CTDI is 22.98 mGy and DLP is 443.9 mGy-cm. Automated exposure control was utilized for the study. A dose lowering technique was utilized adhering to the principles of ALARA. MIP reconstructed images were created and reviewed. COMPARISON: 08/31/24 FINDINGS: Pulmonary arteries: Unremarkable. No evidence of acute pulmonary embolism. Aorta: No acute findings. No aortic aneurysm or dissection. Hepatic veins: Reflux of contrast into the hepatic veins suggesting elevated right heart pressure. Lungs: Severe emphysema. Biapical pleural-parenchymal scarring. Stable 7 mm left upper lobe nodule (series 2, image 98), unchanged across multiple prior examinations and considered benign. Bronchial wall thickening. No consolidation. Pleural space: Unremarkable. No significant effusion. No pneumothorax. Heart: No cardiomegaly. Trace pericardial effusion. 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 No acute fracture. No dislocation. Soft tissues: Unremarkable. Lymph nodes: Unremarkable. No enlarged lymph nodes. IMPRESSION: 1. No evidence of acute pulmonary embolism. 2. Severe emphysema. Pulmonary emphysema is an independent risk factor for lung cancer. Consider patient evaluation for low-dose cancer screening protocol. 3. Reflux of contrast into the hepatic veins suggesting elevated right heart pressure. Electronically signed by: Sherice Pleitez M.D. 01/15/25 22:51 PM
[2025-01-15 23:11] LABS: Magnesium 2.1 mg/dl (1.7-2.4)
[2025-01-15 23:18] LABS: Troponin I High Sensitivity 32.9 pg/ml (0-14)
[2025-01-16] MEDS ORDERED: ACETAMINOPHEN 325 MG TAB PO PRN (01:06)
[2025-01-16] MEDS ORDERED: PROMETHAZINE 6.25 MG/50.25 ML BAG IV PRN (01:06)
[2025-01-16] MEDS ORDERED: LORazepam 0.5 MG TAB PO PRN (01:09)
[2025-01-16] MEDS ORDERED: oxyCODONE HCL IR 5 MG TAB (IMMEDIATE RELEASE) PO PRN (01:09)
[2025-01-16] MEDS ORDERED: ALBUT/IPRATROP 3MG/0.5MG NEB 3 ML VIAL NEB PRN (01:10)
[2025-01-16] MEDS: DOXYCYCLINE HYCLATE 100 MG in DEXTROSE 5% MINI-B 100 ML IV STA (03:02)
[2025-01-16] MEDS: methylPREDNISolone 20 MG in SYRINGE 0 ML IV ONE (03:02)
[2025-01-16 03:41] LABS: Basophils # (auto) 0.03 K/uL (0.00-0.20); Basophils % (auto) 0.3 %; Eosinophils # (auto) 0.02 K/uL (0.00-0.50); Eosinophils % (auto) 0.2 %; Hematocrit (blood only) 42.9 % (37.0-47.0); Immature Granulocytes # (auto) 0.04 K/uL (0.01-0.20); Immature Granulocytes % (auto) 0.4 %; Lymphocytes # (auto) 2.47 K/uL (1.20-3.40); Lymphocytes % (auto) 27.5 %; Mean Corpuscular Hemoglobin 31.8 pg (25.0-34.0); Mean Corpuscular Hgb Conc 32.6 g/dL (32.0-36.0); Mean Corpuscular Volume 97.5 fL (80.0-100.0); Mean Platelet Volume 9.7 fL (9.4-12.4); Monocytes # (auto) 0.44 K/uL (0.11-0.59); Monocytes % (auto) 4.9 %; Neutrophils # (auto) 5.98 K/uL (1.40-6.50); Neutrophils % (auto) 66.7 %; Platelet Count 303 K/uL (130-400); RDW Coefficient of Variation 12.6 % (11.5-14.5); RDW Standard Deviation 45.2 fL (36.4-46.3); White Blood Count 8.98 K/ul (4.8-10.8)
[2025-01-16 03:57] LABS: BUN Creatinine Ratio 17.8 (10-20); Calcium 8.8 mg/dl (8.6-10.3); Creatinine Clr Calc Pharmacy 50.3 ml/min; Potassium 4.5 mmol/L (3.5-5.1)
--- NOTE | 2025-01-16 06:03 | History & Physical Report ---
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 Heparin subcu Full code Text document was generated using [employer] voice recognition software. It may contain grammatical or spelling errors. Kindly contact undersigned for clarification of any documentation item in question. Admission and Anticipated Discharge Date Admission Date: January 16, 2025 History of Present Illness Chief Complaint: Shortness of breath Primary Care Provider: ALIYAH Goldman History obtained from patient and records. 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 3 days history of junky cough symptoms with worsening SOB. Denies aspiration. Not sure about sick contacts. No chest pain. No fluid retention. Medical History as above Surgical History : Current section, cervical conization, diagnostic laparoscopy, BTL, tonsillectomy, ganglion cyst removal, hernia repair, lung thoracotomy Family History : Rheumatoid arthritis, lymphoma, diabetes, heart disease, stroke Personal/Social history : Past tobacco abuse, occasional EtOH intake, disabled Allergies Allergy/AdvReac Type Severity Reaction Status Date / Time tramadol Allergy Severe Seizure Verified 10/13/24 00:02 adhesive Allergy Mild BANDAIDS : Verified 10/13/24 00:02 SKIN ABRASION ketorolac [From Toradol] Allergy Mild HX KIDNEY Verified 10/13/24 00:02 FAILURE adhesive tape Allergy Unknown SKIN TEARS Verified 10/13/24 00:02 ibuprofen Allergy Unknown HX KIDNEY Verified 10/13/24 00:02 FAILURE NSAIDS (Non-Steroidal Allergy Unknown HX KIDNEY Verified 10/13/24 00:02 Anti-Inflamma FAILURE Sulfa (Sulfonamide Allergy Unknown HIVES Verified 10/13/24 00:02 Antibiotics) meperidine AdvReac Unknown NOT A Verified 10/13/24 00:02 VERIFIED RXN: MOOD SWINGS prednisone AdvReac Unknown Patient Verified 10/13/24 00:02 Reports Contraindication in Kidney Failure/SEE NOTES rosuvastatin [From Crestor] AdvReac Unknown Weakness, Verified 10/13/24 00:02 RHABDOMYLOSIS, ACUTE RENAL FAILURE Home Medications Medication Instructions Recorded Confirmed Type albuterol sulfate 90 mcg/actuation 2 puff inhalation Q4H PRN 11/11/24 01/15/25 History aerosol inhaler Shortness Of Breath Or Wheezing aspirin 81 mg tablet,delayed 81 mg PO DAILY 11/11/24 01/15/25 History release empagliflozin 10 mg tablet 10 mg PO DAILY 11/11/24 01/15/25 History (Jardiance) evolocumab 140 mg/mL subcutaneous 140 mg subcut UD 11/11/24 01/15/25 History pen injector (Reyes Muro) fluticasone 250 mcg-salmeterol 50 1 inh inhalation AMHS 11/11/24 01/15/25 History mcg/dose blistr powdr for inhalation folic acid 1 mg tablet 1 mg PO QAM 11/11/24 01/15/25 History ipratropium 0.5 mg-albuterol 3 mg 3 ml inhalation QID PRN Shortness 11/11/24 01/15/25 History (2.5 mg base)/3 mL nebulization Of Breath Or Wheezing soln levothyroxine 75 mcg tablet 75 mcg PO DAILY 11/11/24 01/15/25 History (Synthroid) lorazepam 0.5 mg tablet 0.5 mg PO DAILY PRN Anxiety 11/11/24 01/15/25 History methocarbamol 500 mg tablet 500 mg PO QID PRN muscle spasms 11/11/24 01/15/25 History metoprolol succinate 50 mg 50 mg PO UD 11/11/24 01/15/25 History tablet,extended release 24 hr midodrine 5 mg tablet 5 mg PO TID 11/11/24 01/15/25 History omeprazole 20 mg capsule,delayed 20 mg PO AMHS 11/11/24 01/15/25 History release ondansetron HCl 4 mg tablet 4 mg PO TID PRN Nausea And Vomiting 11/11/24 01/15/25 History oxycodone 5 mg tablet 5 mg PO Q4H PRN Pain, Severe 11/11/24 01/15/25 History paroxetine HCl 40 mg tablet 40 mg PO HS 11/11/24 01/15/25 History pregabalin 75 mg capsule 75 mg PO TID 11/11/24 01/15/25 History sacubitril 24 mg-valsartan 26 mg 1 tab PO AMHS 11/11/24 01/15/25 History tablet (Entresto) azithromycin 250 mg tablet 250 mg PO UD 01/15/25 01/15/25 History levothyroxine 75 mcg tablet 75 mcg PO DAILYBB 01/15/25 01/15/25 History (Synthroid) prednisone 5 mg tablet 5 mg PO QAM 01/15/25 01/15/25 History spironolactone 25 mg tablet 12.5 mg PO QAM 01/15/25 01/15/25 History Past Med/Surg History Problem List (Updated 01/16/25 @ 02:54 by Background Daemon) Upper respiratory infection, viral (Acute) Shortness of breath (Acute) Elevated troponin (Acute) Abnormal ECG (Acute) Chronic heart failure with preserved ejection fraction Asthma exacerbation in COPD (Acute) Acute metabolic encephalopathy (Acute) Left lower lobe pneumonia Encounter for pre-operative examination Acute on chronic heart failure with reduced ejection fraction and diastolic dy sfunction CKD (chronic kidney disease), stage III (Acute) Acute on chronic respiratory failure with hypoxia DVT prophylaxis Pulmonary nodule Pericardial effusion Hypotension Bacteremia Prolonged QT interval Hypertension Diarrhea (Acute) Lab test negative for COVID-19 virus (Acute) Nausea & vomiting (Acute) Colitis (Acute) Acute dehydration (Acute) Electrolyte abnormality Hypomagnesemia (Acute) Nausea and vomiting (Acute) Hypokalemia (Acute) Generalized abdominal pain (Acute) Pericardial effusion Left ventricular systolic dysfunction UNRULY (acute kidney injury) Chronic pericarditis with effusion UTI (urinary tract infection) Acute respiratory failure with hypercapnia Acute exacerbation of chronic obstructive pulmonary disease (Acute) Acute respiratory distress (Acute) Influenza A (Acute) Hypotension Volume overload Acute respiratory failure with hypoxia Anxiety Depression Electrolyte abnormality Transaminitis DVT prophylaxis COPD (chronic obstructive pulmonary disease) (Acute) HLD (hyperlipidemia) Rhabdomyolysis Acute renal failure Pulmonary nodule Nausea (Acute) Hypokalemia (Acute) COPD exacerbation (Acute) Wrist pain, right (Acute) Seizure (Acute) Influenza A (Acute) Hypoxia (Acute) Hypokalemia (Acute) Hypokalemia (Acute) Hypokalemia (Acute) COPD exacerbation (Acute) COPD exacerbation (Acute) Bronchitis (Acute) Asthma exacerbation in COPD (Acute) Acute bronchitis (Acute) Acute bronchitis (Acute) Cellulitis (Acute) CAD (coronary artery disease) Hypothyroidism HFrEF (heart failure with reduced ejection fraction) hx Medical History Emphysema/COPD daily nebulizer, and prn neb and inh; f/u pulmonology at [facility] and [place] 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 History of colitis Decreased mobility lt arm>CRPS PTSD (post-traumatic stress disorder) Unique anesthetic considerations on preoperative anesthesia assessment high level anxiety when sedated, hx intubation w Flu A....PTSD, "gets scared when put to sleep" History of colon polyps Low blood pressure currently on midodrine; f/u [facility] cardio at and [place] History of influenza INFLUENZA A, February 2022 - [facility] hospitalization, "intubated while in the hospital" Pain syndrome, chronic chronic regional pain syndrome : left arm/received lidocaine injections in [place]/every three months/due may 2023. left limb restriction. History of renal failure "from her crestor medication" Oxygen dependent 2 L o2 continuous. Emphysema lung Statin intolerance Chronic pain see pain clinic for lt arm and neck, @[facility] pain center Anxiety Shortness of breath chronic Neurofibromatosis Hypokalemia HX / CAN NOT TOLERATE PO POTASSIUM PILLS DUE TO GASTROPARESIS Hx of bronchitis Myocardial infarction 2010 - CHEST PAIN -[facility] ER AND HAD HEART CATH WITH ONE STENT (BARE METAL) FOLLOW WITH [facility] Seizure 2013 ONLY HAD ONE -- ADMITTED TO [facility] --- METABOLIC RELATED ---- NO MEDICATION Pneumothorax AGE 24 - SURGERY TO REPAIR THE LEFT SIDE AND CHEMICAL TREATMENT ON THE RIGHT SIDE AT [facility] Gastroparesis Cavernous hemangioma of brain stable Surgical History Hx of right cataract extraction History of heart artery stent 2011, [facility], x1 stent; f/u [facility] History of endoscopy Hx of colonoscopy Hx of vaginal surgery 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 Hx of section X2 Hx of cardiac cath 2011, [facility], x1 stent; f/u [facility] at [facility] History of hernia repair UMBILICAL Family History Father Lung disease Severe emphysema, pneumothorax Brother Family history of diabetes mellitus Brother Family history of diabetes mellitus Family/Other Family history of cancer Aunt Family history of colonic polyps Grandfather Family history of lymphoma Social History Smoking Status: Former smoker Tobacco Type: Cigarettes Age Started Using Tobacco: 11; Age Quit Using Tobacco: 53; packs per day: 1; Cigarettes Per Day: has 1 occasionally; Second Hand Exposure: Yes; Do You Dip or Chew Tobacco: No; Hx Alcohol Use: No Hx Substance Use: Yes Last Used Substance: Days (ago) Last Used Substance Other:: daily-"just a few hits a day" Preferred Language: Mongolian Communication Ability: Effective Archeology Faculty Member Required: No Beliefs That Will Affect Care: None marital status: Current Living Situation: Spouse and Family Current Living Situation Comment: and daughter How many Children do You have: 3 Other Information That Helps Us Care for You: No Feels Safe at Home: Yes Safety Concerns: Feels Safe At This Time Assistive Devices: Nebulizer, Oxygen - at Night, Walker and Wheelchair Review of Systems Review of Systems: As per HPI, all other systems reviewed and negative Physical Exam Physical Exam: GENERAL: Comfortable, pleasant, no respiratory distress SKIN: Normal color, warm HEENT: [place] palpebral conjunctivae, no ptosis, dry buccal mucosa, nasal cannula in place NECK : Supple, no tenderness CHEST : Decreased breath sounds, occasional expiratory wheezes , no tenderness HEART : RRR, systolic murmur ABDOMEN: no distention, nontender EXTREMITIES : No LE swelling/tenderness, no other conspicuous deformities noted NEUROLOGIC : Coherent, no facial asymmetry, no other gross focality Results & Data Results & Data Vital Signs (Past 12 Hours) Vital Signs Temp Pulse Pulse Resp BP BP Pulse Ox 01/16/25 03:11 77 01/16/25 03:11 01/16/25 03:11 36.4 C L 75 22 120/63 99 01/16/25 00:49 78 20 123/90 99 01/16/25 00:03 73 21 100 01/16/25 00:00 107/78 01/15/25 23:51 70 01/15/25 23:01 105/74 01/15/25 22:45 76 15 98 01/15/25 22:00 72 16 103/69 98 01/15/25 20:39 77 01/15/25 20:30 76 18 106/84 99 01/15/25 19:52 01/15/25 19:50 76 18 99/76 L 99 01/15/25 19:38 36.9 C 81 21 102/85 97 O2 Del Method O2 Flow Rate 01/16/25 03:11 01/16/25 03:11 Nasal Cannula 3 01/16/25 03:11 Nasal Cannula 2 01/16/25 00:49 Nasal Cannula 3 01/16/25 00:03 Nasal Cannula 3 01/16/25 00:00 01/15/25 23:51 01/15/25 23:01 01/15/25 22:45 01/15/25 22:00 Room Air 01/15/25 20:39 01/15/25 20:30 Nasal Cannula 3 01/15/25 19:52 Room Air 01/15/25 19:50 Nasal Cannula 3 01/15/25 19:38 Room Air Laboratory Results Laboratory Results WBC 8.98 K/ul (4.8-10.8) 01/16/25 03:24 RBC 4.40 M/uL (4.20-5.40) 01/16/25 03:24 Hgb 14.0 g/dl (12.0-16.0) 01/16/25 03:24 Hct 42.9 % (37.0-47.0) 01/16/25 03:24 MCV 97.5 fL (80.0-100.0) 01/16/25 03:24 MCH 31.8 pg (25.0-34.0) 01/16/25 03:24 MCHC 32.6 g/dL (32.0-36.0) 01/16/25 03:24 RDW Std Deviation 45.2 fL (36.4-46.3) 01/16/25 03:24 RDW Coeff of Akiko 12.6 % (11.5-14.5) 01/16/25 03:24 Plt Count 303 K/uL (130-400) 01/16/25 03:24 MPV 9.7 fL (9.4-12.4) 01/16/25 03:24 Immature Gran % (Auto) 0.4 % 01/16/25 03:24 Neut % (Auto) 66.7 % 01/16/25 03:24 Lymph % (Auto) 27.5 % 01/16/25 03:24 Towns % (Auto) 4.9 % 01/16/25 03:24 Eos % (Auto) 0.2 % 01/16/25 03:24 Baso % (Auto) 0.3 % 01/16/25 03:24 Neut # (Auto) 5.98 K/uL (1.40-6.50) 01/16/25 03:24 Lymph # (Auto) 2.47 K/uL (1.20-3.40) 01/16/25 03:24 Towns # (Auto) 0.44 K/uL (0.11-0.59) 01/16/25 03:24 Eos # (Auto) 0.02 K/uL (0.00-0.50) 01/16/25 03:24 Baso # (Auto) 0.03 K/uL (0.00-0.20) 01/16/25 03:24 Immature Gran # (Auto) 0.04 K/uL (0.01-0.20) 01/16/25 03:24 Sodium 138 mmol/L (136-145) 01/16/25 03:24 Potassium 4.5 mmol/L (3.5-5.1) 01/16/25 03:24 Chloride 105 mmol/L (98-107) 01/16/25 03:24 Carbon Dioxide 29 mmol/L (21-32) 01/16/25 03:24 Anion Gap 4 (3-11) 01/16/25 03:24 BUN 19 mg/dl (6-23) 01/16/25 03:24 Creatinine 1.07 mg/dl (0.6-1.2) 01/16/25 03:24 Est Cr Clr Drug Dosing 50.3 ml/min 01/16/25 03:24 eGFR 59.47 01/16/25 03:24 BUN/Creatinine Ratio 17.8 (10-20) 01/16/25 03:24 Glucose 127 mg/dl (70-99(Fasting)) H 01/16/25 03:24 Lactate 1.0 mmol/L (0.4-2.0) 01/15/25 22:40 Calcium 8.8 mg/dl (8.6-10.3) 01/16/25 03:24 Magnesium 2.1 mg/dl (1.7-2.4) 01/15/25 22:40 Total Bilirubin 0.4 mg/dl (0.2-1.0) 01/15/25 20: AST 11 U/L (13-39) L 01/15/25 20: ALT 8 U/L (7-52) 01/15/25 20: Alkaline Phosphatase 49 U/L (34-104) 01/15/25 20: Troponin I High Sens 32.9 pg/ml (0-14) H 01/15/25 22:40 Total Protein 7.0 gm/dl (6.0-8.3) 01/15/25 20: Albumin 4.3 gm/dl (3.4-5.0) 01/15/25 20: Globulin 2.7 gm/dl (2.5-4.0) 01/15/25 20: Albumin/Globulin Ratio 1.6 (0.9-2) 01/15/25 20: Lipase 32 U/L (11-82) 01/15/25 20:26 Adenovirus (PCR) Not Detected (NotDetected) 01/15/25 20:00 B. pertussis DNA (PCR) Not Detected (NotDetected) 01/15/25 20:00 B.parapertussis DNA PCR Not Detected (NotDetected) 01/15/25 20:00 C. pneumoniae DNA (PCR) Not Detected (NotDetected) 01/15/25 20:00 Coronavirus OC43 (PCR) Not Detected (NotDetected) 01/15/25 20:00 Coronavirus HKU1 (PCR) Not Detected (NotDetected) 01/15/25 20:00 Coronavirus 229E (PCR) Not Detected (NotDetected) 01/15/25 20:00 SARS-CoV-2 (PCR) Not Detected (NotDetected) 01/15/25 20:00 Coronavirus NL63 (PCR) Not Detected (NotDetected) 01/15/25 20:00 Human Metapneumovir PCR Not Detected (NotDetected) 01/15/25 20:00 Influenza Type A (PCR) Not Detected (NotDetected) 01/15/25 20:00 Influenza Type B (PCR) Not Detected (NotDetected) 01/15/25 20:00 M. pneumoniae (PCR) Not Detected (NotDetected) 01/15/25 20:00 Parainfluenza 1 (PCR) Not Detected (NotDetected) 01/15/25 20:00 Parainfluenza 2 (PCR) Not Detected (NotDetected) 01/15/25 20:00 Parainfluenza 3 (PCR) Not Detected (NotDetected) 01/15/25 20:00 Parainfluenza 4 (PCR) Not Detected (NotDetected) 01/15/25 20:00 RSV (PCR) Not Detected (NotDetected) 01/15/25 20:00 Entero/Rhino (PCR) Not Detected (NotDetected) 01/15/25 20:00 Impressions Chest X-Ray 01/15/25 19:52 Exam(s): XR CXR 1 VIEW EXAM: XR Chest, 1 View CLINICAL HISTORY: Reason for exam: Chest pain, nonspecific. TECHNIQUE: Frontal view of the chest. COMPARISON: 11/10/24 FINDINGS: Lungs: Emphysema. No consolidation. Postoperative change at the left lung apex. Pleural space: No pleural effusion or pneumothorax. Heart: No cardiomegaly or pulmonary vascular congestion. Bones/joints: No acute fracture. No dislocation. IMPRESSION: No acute findings in the chest. Electronically signed by: Sherice Pleitez M.D. 01/15/25 21:03 PM Chest CTA 01/15/25 20:07 Exam(s): CTA CHEST IV Amt: 119ml opti 320 EXAM: CT Angiography Chest With Intravenous Contrast CLINICAL HISTORY: Reason for exam: sob ekg changes. TECHNIQUE: Axial computed tomographic angiography images of the chest with intravenous contrast. CTDI is 22.98 mGy and DLP is 443.9 mGy-cm. Automated exposure control was utilized for the study. A dose lowering technique was utilized adhering to the principles of ALARA. MIP reconstructed images were created and reviewed. COMPARISON: 08/31/24 FINDINGS: Pulmonary arteries: Unremarkable. No evidence of acute pulmonary embolism. Aorta: No acute findings. No aortic aneurysm or dissection. Hepatic veins: Reflux of contrast into the hepatic veins suggesting elevated right heart pressure. Lungs: Severe emphysema. Biapical pleural-parenchymal scarring. Stable 7 mm left upper lobe nodule (series 2, image 98), unchanged across multiple prior examinations and considered benign. Bronchial wall thickening. No consolidation. Pleural space: Unremarkable. No significant effusion. No pneumothorax. Heart: No cardiomegaly. Trace pericardial effusion. 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 No acute fracture. No dislocation. Soft tissues: Unremarkable. Lymph nodes: Unremarkable. No enlarged lymph nodes. IMPRESSION: 1. No evidence of acute pulmonary embolism. 2. Severe emphysema. Pulmonary emphysema is an independent risk factor for lung cancer. Consider patient evaluation for low-dose cancer screening protocol. 3. Reflux of contrast into the hepatic veins suggesting elevated right heart pressure. Electronically signed by: Sherice Pleitez M.D. 01/15/25 22:51 PM Diagnostic Findings EKG as per my interpretation :Rate 80, RAD, LPFB, incomplete RBB, T wave inversion inferior and anterolateral leads Code Status & VTE Plan VTE Prophylaxis Plan VTE Prophylaxis will be ordered: Yes
[2025-01-16] MEDS: LEVOTHYROXINE SODIUM 75 MCG TABLET PO SCH (06:49)
[2025-01-16] MEDS: HEPARIN SOD 5,000 UNIT/0.5 ML VIAL SQ SCH (06:49)
[2025-01-16] MEDS: ALBUT/IPRATROP 3MG/0.5MG NEB 3 ML VIAL NEB SCH (06:56)
[2025-01-16] MEDS ORDERED: LEVOTHYROXINE SODIUM 75 MCG TABLET PO SCH (09:00)
[2025-01-16] MEDS: MIDODRINE HCL 2.5 MG TAB PO SCH (09:34)
[2025-01-16] MEDS: METOPROLOL SUCC 50MG EXT REL TAB PO SCH (11:05)
[2025-01-16] MEDS: PREGABALIN 75 MG CAP PO SCH (11:05)
[2025-01-16] MEDS: PANTOprazole 40 MG TAB PO SCH (11:05)
[2025-01-16] MEDS: FOLIC ACID 1 MG TAB PO SCH (11:05)
[2025-01-16] MEDS: ASPIRIN 81 MG ECTAB PO SCH (11:05)
[2025-01-16] MEDS: METHOCARBAMOL 500 MG TABLET PO PRN (11:55)
--- NOTE | 2025-01-16 15:03 | Communication Note ---
Date of Service: January 16, 2025 Patient was seen and examined at bedside. 59-year-old lady with PMH of chronic diastolic heart failure [EF 55 to 60%, TTE 2023], CAD status post angioplasty/stent, chronic respiratory failure secondary to steroid-dependent COPD on home O2, recurrent spontaneous pneumothorax status post thoracotomy, HTN, gastroparesis, neurofibromatosis, cerebellar angioma, IBS constipation predominant, past tobacco abuse presented to the ED with complaint of 3-day history of junky cough symptoms with worsening shortness of breath. Patient denied chest pain or fluid retention. She is being managed for the following: Acute exacerbation of COPD: COPD exacerbation presenting as a complicated bronchitis, no sepsis POA. Admitting chest imaging negative for acute finding, negative for pulmonary embolism. Demonstrated severe emphysema. Respiratory BioFire negative. Patient started on doxycycline and prednisone, continue. c/w home O2, nebs RTC. Titrate prednisone down to 5 mg daily home dose gradually. Pulmonary consult if without improvement Demand ischemia: Troponin flat trend in low 30s. Patient with no chest pain. Likely demand ischemia in the setting of acute exacerbation of COPD. Mild dehydration: Patient's baseline creatinine of 1.1-1.2. Admitting creatinine of 1.24, likely secondary to acute illness. Do not qualify for acute kidney injury. Continue to monitor BMP. Other chronic medical conditions: Continue with/resume home meds as when able. chronic diastolic heart failure (EF 55 to 60%, TTE 2023), patient on the dry side CAD status post angioplasty/stent history recurrent spontaneous pneumothorax status post thoracotomy hypertension, stable past tobacco abuse DVT prophylaxis. Heparin subcu Full code For detailed information on the patient, refer to today's H&P note. Text document was generated using [employer] voice recognition software. It may contain grammatical or spelling errors. Kindly contact undersigned for clarification of any documentation item in question.
--- NOTE | 2025-01-16 15:32 | Electrocardiogram Report ---
Test Reason : Blood Pressure : */* mmHG Vent. Rate : 77 BPM Atrial Rate : 77 BPM P-R Int : 134 ms QRS Dur : 102 ms QT Int : 430 ms P-R-T Axes : 85 96 239 degrees QTcB Int : 486 ms Sinus rhythm with sinus arrhythmia with occasional Premature ventricular complexes Rightward axis Incomplete right bundle branch block T wave abnormality, consider inferolateral ischemia Prolonged QT Abnormal ECG When compared with ECG of 10-Nov-2024 20:14, T wave inversion now evident in Inferior leads T wave inversion now evident in Lateral leads Confirmed by Berlin Rod ([id number]) on 01/16/2025 3:31:33 PM Referred By: REFERRED SELF Confirmed By: Berlin Rod
[2025-01-16] MEDS: DOXYCYCLINE HYCLATE 100 MG CAP PO SCH (22:12)
[2025-01-16] MEDS: BENZONATATE 100 MG CAPSULE PO SCH (22:14)
[2025-01-16] MEDS: MIDODRINE HCL 2.5 MG TAB PO STA (22:14)
[2025-01-16] MEDS: PARoxetine HCL 20 MG TAB PO SCH (22:15)
[2025-01-16] MEDS: METOPROLOL SUCC 25MG EXT REL TAB PO SCH (22:15)
[2025-01-16] MEDS: dexAMETHasone 4 MG in SYRINGE 0 ML IV ONE (22:16)
[2025-01-16] MEDS: SODIUM CHLORIDE 0.9% 1,000 ML IV ONE (22:17)
[2025-01-17 02:57] LABS: Hematocrit (blood only) 40.9 % (37.0-47.0); Hemoglobin 13.2 g/dl (12.0-16.0); Mean Corpuscular Hemoglobin 31.7 pg (25.0-34.0); Mean Corpuscular Hgb Conc 32.3 g/dL (32.0-36.0); Mean Corpuscular Volume 98.3 fL (80.0-100.0); Mean Platelet Volume 9.8 fL (9.4-12.4); Platelet Count 296 K/uL (130-400); RDW Coefficient of Variation 12.7 % (11.5-14.5); RDW Standard Deviation 45.8 fL (36.4-46.3); Red Blood Count 4.16 M/uL (4.20-5.40); White Blood Count 7.41 K/ul (4.8-10.8)
[2025-01-17 03:13] LABS: BUN Creatinine Ratio 19.1 (10-20); Calcium 8.7 mg/dl (8.6-10.3); Creatinine Clr Calc Pharmacy 48.9 ml/min; Magnesium 1.9 mg/dl (1.7-2.4); Phosphorus 3.2 mg/dl (2.5-4.9); Potassium 4.5 mmol/L (3.5-5.1)
[2025-01-17] MEDS: predniSONE 20 MG TAB PO SCH (10:36)
--- NOTE | 2025-01-17 13:55 | Hospitalist Progress Note ---
Date of Service January 17, 2025 Assessment & Plan (1) COPD exacerbation: Plan: 59-year-old lady with PMH of chronic diastolic heart failure [EF 55 to 60%, TTE 2023], CAD status post angioplasty/stent, chronic respiratory failure secondary to steroid-dependent COPD on home O2, recurrent spontaneous pneumothorax status post thoracotomy, HTN, gastroparesis, neurofibromatosis, cerebellar angioma, IBS constipation predominant, past tobacco abuse presented to the ED with complaint of 3-day history of junky cough symptoms with worsening shortness of breath. Patient denied chest pain or fluid retention. She is being managed for the following: Acute exacerbation of COPD: COPD exacerbation presenting as a complicated bronchitis, no sepsis POA. Admitting chest imaging negative for acute finding, negative for pulmonary embolism. Demonstrated severe emphysema. Respiratory BioFire negative. Patient started on doxycycline and prednisone, continue. c/w home O2, nebs RTC. Titrate prednisone down to 5 mg daily home dose gradually. Pt reports cough slightly improving. pt feels wiped out and tired today. Pulmonary consult if without improvement Demand ischemia: Troponin flat trend in low 30s. Patient with no chest pain. Likely demand ischemia in the setting of acute exacerbation of COPD. Mild dehydration: Patient's baseline creatinine of 1.1-1.2. Admitting creatinine of 1.24, likely secondary to acute illness. Do not qualify for acute kidney injury. Continue to monitor BMP. Other chronic medical conditions: Continue with/resume home meds as when able. chronic diastolic heart failure (EF 55 to 60%, TTE 2023), patient on the dry side CAD status post angioplasty/stent history recurrent spontaneous pneumothorax status post thoracotomy hypertension, stable past tobacco abuse DVT prophylaxis. Heparin subcu Full code pt/ot, likely dc raul Text document was generated using [employer] voice recognition software. It may contain grammatical or spelling errors. Kindly contact undersigned for clarification of any documentation item in question. Admission and Anticipated Discharge Date Admission Date: January 16, 2025 Subjective Patient was seen and examined at bedside. Patient was lying in bed, on 3 L oxygen via nasal cannula, NAD. Patient reports feeling wiped out and tired, lacking energy. Will consult PT/OT. Patient reports cough slightly improving, reports eating okay and moving bowels okay. Physical Exam Physical Exam: GENERAL: Comfortable, pleasant, no respiratory distress SKIN: Normal color, warm HEENT: [place] palpebral conjunctivae, no ptosis, moist buccal mucosa, nasal cannula in place NECK : Supple, no tenderness CHEST : Decreased breath sounds, occasional expiratory wheezes - improving , no tenderness HEART : RRR, systolic murmur ABDOMEN: no distention, nontender EXTREMITIES : No LE swelling/tenderness, no other conspicuous deformities noted NEUROLOGIC : Coherent, no facial asymmetry, no other gross focality Results & Data Results & Data Vital Signs (Past 12 Hours) Vital Signs Temp Pulse Pulse Resp BP Pulse Ox O2 Del Method 01/17/25 13:37 Nasal Cannula 01/17/25 12:00 76 18 90/62 L 95 Nasal Cannula 01/17/25 11:00 71 18 90/60 L 93 Nasal Cannula 01/17/25 10:54 82 20 98 Nasal Cannula 01/17/25 09:00 36.9 C 78 18 92/63 L 96 Nasal Cannula 01/17/25 08:58 71 20 98 Nasal Cannula 01/17/25 07:18 70 01/17/25 06:40 72 18 103/66 97 Nasal Cannula 01/17/25 02:52 36.8 C 70 19 103/70 97 Nasal Cannula O2 Flow Rate 01/17/25 13:37 2 01/17/25 12:00 2 01/17/25 11:00 2 01/17/25 10:54 2 01/17/25 09:00 3 01/17/25 08:58 2 01/17/25 07:18 01/17/25 06:40 2 01/17/25 02:52 2
[2025-01-17] MEDS: HYDROcodone/HOMATROPINE SYRUP 5MG/1.5MG 5ML UDP PO PRN (16:28)
[2025-01-18] MEDS: SODIUM CHLORIDE 0.9% 1,000 ML IV ONE (00:38)
[2025-01-18] MEDS: MIDODRINE HCL 2.5 MG TAB PO STA ×2 (00:38→03:25)
[2025-01-18] MEDS: dexAMETHasone 4 MG in SYRINGE 0 ML IV ONE (02:01)
[2025-01-18 04:18] LABS: Basophils # (auto) 0.04 K/uL (0.00-0.20); Basophils % (auto) 0.6 %; Eosinophils # (auto) 0.13 K/uL (0.00-0.50); Eosinophils % (auto) 1.8 %; Hematocrit (blood only) 35.2 % (37.0-47.0); Hemoglobin 11.4 g/dl (12.0-16.0); Immature Granulocytes # (auto) 0.02 K/uL (0.01-0.20); Immature Granulocytes % (auto) 0.3 %; Lymphocytes # (auto) 1.59 K/uL (1.20-3.40); Lymphocytes % (auto) 22.4 %; Mean Corpuscular Hemoglobin 31.8 pg (25.0-34.0); Mean Corpuscular Hgb Conc 32.4 g/dL (32.0-36.0); Mean Corpuscular Volume 98.1 fL (80.0-100.0); Mean Platelet Volume 9.9 fL (9.4-12.4); Monocytes # (auto) 0.31 K/uL (0.11-0.59); Monocytes % (auto) 4.4 %; Neutrophils # (auto) 5.02 K/uL (1.40-6.50); Neutrophils % (auto) 70.5 %; Platelet Count 239 K/uL (130-400); RDW Coefficient of Variation 12.8 % (11.5-14.5); RDW Standard Deviation 46.2 fL (36.4-46.3); Red Blood Count 3.59 M/uL (4.20-5.40); White Blood Count 7.11 K/ul (4.8-10.8)
[2025-01-18 04:30] LABS: BUN Creatinine Ratio 13.1 (10-20); Calcium 7.9 mg/dl (8.6-10.3); Creatinine Clr Calc Pharmacy 33.6 ml/min; Potassium 4.1 mmol/L (3.5-5.1)
[2025-01-18] MEDS ORDERED: MIDODRINE HCL 2.5 MG TAB PO SCH ×2 (08:00→12:00)
[2025-01-18] MEDS: MIDODRINE HCL 10 MG TAB PO SCH (12:04)
--- NOTE | 2025-01-18 15:16 | Hospitalist Progress Note ---
Date of Service January 18, 2025 Assessment & Plan (1) COPD exacerbation: Plan: Ms. 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 #Acute exacerbation of COPD: COPD exacerbation presenting as a complicated bronchitis, no sepsis POA. Admitting chest imaging negative for acute finding, negative for pulmonary embolism. Demonstrated severe emphysema. Respiratory BioFire negative. Patient started on doxycycline and prednisone, continue. c/w home O2, nebs RTC. Titrate prednisone down to 5 mg daily home dose gradually. Pt reports cough slightly improving, plan for discharge likely tomorrow PT/OT return to home #Demand ischemia: Troponin flat trend in low 30s. Patient with no chest pain. Likely demand ischemia in the setting of acute exacerbation of COPD. #UNRULY: Patient's baseline creatinine of 1.1-1.2. Admitting creatinine of 1.24, now up to 1.6, avoid nephrotoxic agents, trend BMP, potentially 2/2 hypotension and po intake #Chronic hypotension #Chronic heart failure with recovered EF #Moderate mitral regurgitation EF 35 to 39% echo done on 07/28/2023 ef 55-60% on echo 10/13/24 On metoprolol succinate, Jardiance and Entresto Midodrine to help facilitate GDMT -Increased to 10mg TID Other chronic medical conditions: Continue with/resume home meds as when able. CAD status post angioplasty/[id number] history recurrent spontaneous pneumothorax status post thoracotomy hypertension, stable past tobacco abuse DVT prophylaxis. Heparin subcu Full code Admission and Anticipated Discharge Date Admission Date: January 16, 2025 Subjective Reports still feeling overall poor, endorses no wheezing but ongoing cough--however, with improvement since admission Denies fevers or chills, notes some issues with midodrine not keeping pressure up to facilitate GDMT Physical Exam Constitutional: conversational, no noted dyspnea Respiratory: diminished breath sounds diffusely Cardiovascular: RRR, no murmur, no edema Gastrointestinal (Abdomen): normal bowel sounds, soft, nontender, no hepatosplenomegaly Results & Data Results & Data Vital Signs (Past 12 Hours) Vital Signs Temp Pulse Pulse Resp BP Pulse Ox O2 Del Method 01/18/25 11:54 72 18 98 Nasal Cannula 01/18/25 11:52 36.6 C 67 20 92/60 L 96 Nasal Cannula 01/18/25 10:20 Nasal Cannula 01/18/25 08:34 88 20 97 Nasal Cannula 01/18/25 08:00 80 01/18/25 05:13 93/64 L 01/18/25 03:26 36.6 C 70 18 76/49 L 94 Nasal Cannula O2 Flow Rate 01/18/25 11:54 2 01/18/25 11:52 2 01/18/25 10:20 2 01/18/25 08:34 2 01/18/25 08:00 01/18/25 05:13 01/18/25 03:26 2 Laboratory Results Short CBC 01/18/25 Range/Units 03:55 WBC 7.11 (4.8-10.8) K/ul Hgb 11.4 L (12.0-16.0) g/dl Hct 35.2 L (37.0-47.0) % Plt Count 239 (130-400) K/uL BMP 01/18/25 03:55 Sodium 138 Potassium 4.1 Chloride 108 H Carbon Dioxide 28 BUN 21 Creatinine 1.60 H D Glucose 119 H Calcium 7.9 L Medications Administered Home Medications Medication Instructions Recorded Confirmed Last Taken albuterol sulfate 90 mcg/actuation 2 puff inhalation Q4H PRN 11/11/24 01/15/25 Unknown aerosol inhaler Shortness Of Breath Or Wheezing aspirin 81 mg tablet,delayed 81 mg PO DAILY 11/11/24 01/15/25 Unknown release empagliflozin 10 mg tablet 10 mg PO DAILY 11/11/24 01/15/25 Unknown (Jardiance) evolocumab 140 mg/mL subcutaneous 140 mg subcut UD 11/11/24 01/15/25 Unknown pen injector (Reyes Muro) fluticasone 250 mcg-salmeterol 50 1 inh inhalation AMHS 11/11/24 01/15/25 Unknown mcg/dose blistr powdr for inhalation folic acid 1 mg tablet 1 mg PO QAM 11/11/24 01/15/25 Unknown ipratropium 0.5 mg-albuterol 3 mg 3 ml inhalation QID PRN Shortness 11/11/24 01/15/25 Unknown (2.5 mg base)/3 mL nebulization Of Breath Or Wheezing soln levothyroxine 75 mcg tablet 75 mcg PO DAILY 11/11/24 01/15/25 Unknown (Synthroid) lorazepam 0.5 mg tablet 0.5 mg PO DAILY PRN Anxiety 11/11/24 01/15/25 Unknown methocarbamol 500 mg tablet 500 mg PO QID PRN muscle spasms 11/11/24 01/15/25 Unknown metoprolol succinate 50 mg 50 mg PO UD 11/11/24 01/15/25 Unknown tablet,extended release 24 hr midodrine 5 mg tablet 5 mg PO TID 11/11/24 01/15/25 Unknown omeprazole 20 mg capsule,delayed 20 mg PO AMHS 11/11/24 01/15/25 Unknown release ondansetron HCl 4 mg tablet 4 mg PO TID PRN Nausea And Vomiting 11/11/24 01/15/25 Unknown oxycodone 5 mg tablet 5 mg PO Q4H PRN Pain, Severe 11/11/24 01/15/25 Unknown paroxetine HCl 40 mg tablet 40 mg PO HS 11/11/24 01/15/25 Unknown pregabalin 75 mg capsule 75 mg PO TID 11/11/24 01/15/25 Unknown sacubitril 24 mg-valsartan 26 mg 1 tab PO AMHS 11/11/24 01/15/25 Unknown tablet (Entresto) azithromycin 250 mg tablet 250 mg PO UD 01/15/25 01/15/25 Unknown levothyroxine 75 mcg tablet 75 mcg PO DAILYBB 01/15/25 01/15/25 Unknown (Synthroid) prednisone 5 mg tablet 5 mg PO QAM 01/15/25 01/15/25 Unknown spironolactone 25 mg tablet 12.5 mg PO QAM 01/15/25 01/15/25 Unknown Active Medications Generic Name Dose Route Start Last Admin Trade Name Freq PRN Reason Stop Dose Admin Albuterol 3 ml 01/16/25 07:00 01/18/25 11:54 Albut/Ipratrop 3mg/0.5mg Neb 3 Ml Vial NEB 02/15/25 06:59 3 ml QIDR JUDITH Administration Protocol Aspirin 81 mg 01/16/25 09:00 01/18/25 10:00 Aspirin 81 Mg Ectab PO 02/15/25 08:59 81 mg DAILY JUDITH Administration Benzonatate 100 mg 01/16/25 21:00 01/18/25 13:45 Benzonatate 100 Mg Capsule PO 02/15/25 20:59 100 mg TID JUDITH Administration Doxycycline Hyclate 100 mg 01/16/25 21:00 01/18/25 08:45 Doxycycline Hyclate 100 Mg Cap PO 01/21/25 20:59 100 mg BID JUDITH Administration Folic Acid 1 mg 01/16/25 09:00 01/18/25 08:45 Folic Acid 1 Mg Tab PO 02/15/25 08:59 1 mg QAM [facility] Administration Heparin Sodium (Porcine) 5,000 units 01/16/25 06:00 01/18/25 13:45 Heparin Sod 5,000 Unit/0.5 Ml Vial SQ 02/15/25 05:59 5,000 units Q8 JUDTIH Administration Hydrocodone Bit/Homatropine Methylb 5 ml 01/16/25 14:22 01/18/25 10:59 Hydrocodone/Homatropine Syrup 5mg/1.5mg 5ml Udp PO 01/30/25 14:21 5 ml Q6H PRN Administration Cough Levothyroxine Sodium 75 mcg 01/16/25 06:30 01/18/25 05:13 Levothyroxine Sodium 75 Mcg Tablet PO 02/15/25 06:29 75 mcg DAILYBB JUDITH Administration Methocarbamol 500 mg 01/16/25 01:09 01/16/25 11:55 Methocarbamol 500 Mg Tablet PO 02/15/25 01:08 500 mg QID PRN Administration muscle spasms Metoprolol Succinate 50 mg 01/16/25 09:00 01/18/25 08:40 Metoprolol Succ 50mg Ext Rel Tab PO 02/15/25 08:59 Not Given QAM [facility] Metoprolol Succinate 25 mg 01/16/25 21:00 01/17/25 20:55 Metoprolol Succ 25mg Ext Rel Tab PO 02/15/25 20:59 25 mg HS JUDITH Administration Midodrine 10 mg 01/18/25 12:00 01/18/25 12:04 Midodrine Hcl 10 Mg Tab PO 02/17/25 11:59 10 mg TID@0800,1200,1700 JUDITH Administration Pantoprazole Sodium 40 mg 01/16/25 09:00 01/18/25 08:44 Pantoprazole 40 Mg Tab PO 02/15/25 08:59 40 mg AMHS JUDITH Administration Paroxetine HCl 40 mg 01/16/25 21:00 01/17/25 20:55 Paroxetine Hcl 20 Mg Tab PO 02/15/25 20:59 40 mg HS JUDITH Administration Prednisone 20 mg 01/17/25 09:00 01/18/25 10:00 Prednisone 20 Mg Tab PO 02/16/25 08:59 20 mg DAILY JUDITH Administration Pregabalin 75 mg 01/16/25 09:00 01/18/25 13:45 Pregabalin 75 Mg Cap PO 02/15/25 08:59 75 mg TID JUDITH Administration
[2025-01-18] MEDS: SODIUM CHLORIDE 0.9% 500 ML IV ONE (16:20)
[2025-01-19 07:11] LABS: BUN Creatinine Ratio 15.2 (10-20); Calcium 8.4 mg/dl (8.6-10.3); Creatinine Clr Calc Pharmacy 48.1 ml/min; Potassium 4.2 mmol/L (3.5-5.1)
--- NOTE | 2025-01-19 10:39 | Discharge Summary ---
Discharge Summary Date of Service January 19, 2025 Principal Dx & Hospital Course #1 = Principal Diagnosis (1) COPD exacerbation: Ms. 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 Patient with uncomplicated course and improved with po prednisone burst; given frequency of symptoms will order prolonged taper. On day of dischagre patient reports doing well overall and ready to go home. #Acute exacerbation of COPD: COPD exacerbation presenting as a complicated bronchitis, no sepsis POA. Admitting chest imaging negative for acute finding, negative for pulmonary embolism. Demonstrated severe emphysema. Respiratory BioFire negative. Patient started on doxycycline and prednisone, continue. c/w home O2, nebs RTC. Titrate prednisone down to 5 mg daily home dose gradually. Prednisone 20mg x 2 more days, then 4 days of 10mg prednisone, until back to 5mg daily PT/OT return to home #Demand ischemia: Troponin flat trend in low 30s. Patient with no chest pain. Likely demand ischemia in the setting of acute exacerbation of COPD. #UNRULY resolved : Patient's baseline creatinine of 1.1-1.2. Admitting creatinine of 1.24, up to 1.6, now 1.1 avoid nephrotoxic agents, trend BMP, potentially 2/2 hypotension and po intake #Chronic hypotension #Chronic heart failure with recovered EF #Moderate mitral regurgitation EF 35 to 39% echo done on 07/28/2023 ef 55-60% on echo 10/13/24 On metoprolol succinate, Jardiance and Entresto Midodrine to help facilitate GDMT -Increased to 10mg TID Other chronic medical conditions: Continue with/resume home meds as when able. CAD status post angioplasty/[id number] history recurrent spontaneous pneumothorax status post thoracotomy hypertension, stable past tobacco abuse Notes For Next Care Provider Medication Changes From Visit Prednisone 20mg x 2 more days, then 4 days of 10mg prednisone, until back to 5mg daily Complete 4 more days of doxycycline Increase midodrine 10 mg TID Admission HPI Per Admitting Provider History obtained from patient and records. 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 3 days history of junky cough symptoms with worsening SOB. Denies aspiration. Not sure about sick contacts. No chest pain. No fluid retention. Medical History as above Surgical History : Current section, cervical conization, diagnostic laparoscopy, BTL, tonsillectomy, ganglion cyst removal, hernia repair, lung thoracotomy Family History : Rheumatoid arthritis, lymphoma, diabetes, heart disease, stroke Personal/Social history : Past tobacco abuse, occasional EtOH intake, disabled Admission Exam Per Admitting Provider GENERAL: Comfortable, pleasant, no respiratory distress SKIN: Normal color, warm HEENT: [place] palpebral conjunctivae, no ptosis, dry buccal mucosa, nasal cannula in place NECK : Supple, no tenderness CHEST : Decreased breath sounds, occasional expiratory wheezes , no tenderness HEART : RRR, systolic murmur ABDOMEN: no distention, nontender EXTREMITIES : No LE swelling/tenderness, no other conspicuous deformities noted NEUROLOGIC : Coherent, no facial asymmetry, no other gross focality Discharge Exam Constitutional WD/WN, vitals as above Respiratory diminished however no wheezing Cardiovascular RRR, no murmur, no edema Gastrointestinal (Abdomen) normal bowel sounds, soft, nontender, no hepatosplenomegaly Updated Medication List Medication Instructions Recorded Confirmed Type albuterol sulfate 90 mcg/actuation 2 puff inhalation Q4H PRN 11/11/24 01/15/25 History aerosol inhaler Shortness Of Breath Or Wheezing aspirin 81 mg tablet,delayed 81 mg PO DAILY 11/11/24 01/15/25 History release empagliflozin 10 mg tablet 10 mg PO DAILY 11/11/24 01/15/25 History (Jardiance) evolocumab 140 mg/mL subcutaneous 140 mg subcut UD 11/11/24 01/15/25 History pen injector (Reyes Uptonick) fluticasone 250 mcg-salmeterol 50 1 inh inhalation AMHS 11/11/24 01/15/25 History mcg/dose blistr powdr for inhalation folic acid 1 mg tablet 1 mg PO QAM 11/11/24 01/15/25 History ipratropium 0.5 mg-albuterol 3 mg 3 ml inhalation QID PRN Shortness 11/11/24 History (2.5 mg base)/3 mL nebulization Of Breath Or Wheezing soln lorazepam 0.5 mg tablet 0.5 mg PO DAILY PRN Anxiety 11/11/24 01/15/25 History methocarbamol 500 mg tablet 500 mg PO QID PRN muscle spasms 11/11/24 01/15/25 History metoprolol succinate 50 mg 50 mg PO UD 11/11/24 01/15/25 History tablet,extended release 24 hr omeprazole 20 mg capsule,delayed 20 mg PO AMHS 11/11/24 01/15/25 History release ondansetron HCl 4 mg tablet 4 mg PO TID PRN Nausea And Vomiting 11/11/24 01/15/25 History oxycodone 5 mg tablet 5 mg PO Q4H PRN Pain, Severe 11/11/24 01/15/25 History paroxetine HCl 40 mg tablet 40 mg PO HS 11/11/24 01/15/25 History pregabalin 75 mg capsule 75 mg PO TID 11/11/24 01/15/25 History sacubitril 24 mg-valsartan 26 mg 1 tab PO AMHS 11/11/24 01/15/25 History tablet (Entresto) levothyroxine 75 mcg tablet 75 mcg PO DAILYBB 01/15/25 01/15/25 History (Synthroid) prednisone 5 mg tablet 5 mg PO QAM 01/15/25 01/15/25 History spironolactone 25 mg tablet 12.5 mg PO QAM 01/15/25 01/15/25 History doxycycline hyclate 100 mg capsule 100 mg PO BID 4 days #8 caps 01/19/25 Rx midodrine 5 mg tablet 10 mg (2 x 5 mg) PO TID 30 days 01/19/25 Rx #180 tabs prednisone 20 mg tablet 20 mg PO DAILY 5 days #4 tabs 01/19/25 Rx Hospital Stay Data Consultations 01/15/25 21:53 ED Decision to Admit Stat Diagnostic Imagining Performed 01/15/25 20:07 CT angio chest PE protocol Stat Pending Results Patient Have Any Pending Studies at Discharge: No Discharge Instructions Given to Patient (Per Discharging Provider) You were admitted for an exacerbation of COPD Please complete the course of antibiotic: -Doxycycline 100mg two times a day until complete, next dose is this evening Please complete the following steroid taper: Please take 20mg (1 tablet) prednisone for 2 more days (Thursday, Thursday), then take 10mg (0.5 tablet) for 4 days (Thursday, Thursday, Thursday, Thursday), until resuming home dose of 5mg daily on January 26 Your midodrine was increased to 10mg three times daily Total Time Total Time Spent Total Time Spent (In Minutes): 35
[2025-01-19 10:46] VITALS: RESP 18
[2025-01-19 12:06] VITALS: BP 98/64; TEMP 97.7; O2SAT 97
[2025-01-19 13:19] VITALS: PULSE 72
== END 2025-01-19 13:45 | disposition home or self-care (01) | DRG 191 ==
LOC: ED 19:35 → SUATTDRO 01-16 01:05 → EDINP 01-16 01:05 → 2N 01-16 02:59
DX: I24.89 Other forms of acute ischemic heart disease; N18.30 Chronic kidney disease, stage 3 unspecified; Z87.891 Personal history of nicotine dependence; Z88.2 Allergy status to sulfonamides; Z88.5 Allergy status to narcotic agent; J96.11 Chronic respiratory failure with hypoxia; E86.0 Dehydration; Z79.82 Long term (current) use of aspirin; J44.1 Chronic obstructive pulmonary disease with (acute) exacerbation; I25.2 Old myocardial infarction; I13.0 Hypertensive heart and chronic kidney disease with heart failure and stage 1 through stage 4 chronic kidney disease, or unspecified chronic kidney disease; I25.10 Atherosclerotic heart disease of native coronary artery without angina pectoris; Z99.81 Dependence on supplemental oxygen; Z95.5 Presence of coronary angioplasty implant and graft; J44.0 Chronic obstructive pulmonary disease with (acute) lower respiratory infection; J43.9 Emphysema, unspecified; Z86.011 Personal history of benign neoplasm of the brain; I50.42 Chronic combined systolic (congestive) and diastolic (congestive) heart failure; Z11.52 Encounter for screening for COVID-19; E03.9 Hypothyroidism, unspecified; K21.9 Gastro-esophageal reflux disease without esophagitis; Z88.6 Allergy status to analgesic agent; I95.89 Other hypotension; Z79.899 Other long term (current) drug therapy; Z79.52 Long term (current) use of systemic steroids; Z79.890 Hormone replacement therapy; N17.9 Acute kidney failure, unspecified; E78.5 Hyperlipidemia, unspecified

== ENCOUNTER 2025-01-24 18:45 | Inpatient (IN) ==
--- NOTE | 2025-01-24 19:08 | Emergency Department Note ---
Impression & Plan SOB (shortness of breath) ED Provider Note NAME: ANISHA KINGSLEY AGE: 59 SEX: Female INFORMANT: Patient ED PROVIDER(S): Rich Mathews MD CHIEF COMPLAINT: Shortness of breath PLAN: Disposition: Admitted Outpatient prescription management: none Referral: None MEDICAL DECISION MAKING: Patient presented back to the department due to increased shortness of breath and dyspnea. She notes she is not doing well at home and feels like she needs to be admitted again. She was administered a dose of IV Solu-Medrol and a DuoNeb. Patient was maintaining her O2 saturations on her baseline 2 L. BioFire testing, chest x-ray and blood work performed. ECG is abnormal but not significantly different than prior. Slight worsening of the inferior T wave inversions noted. On reassessment the patient noted minimal improvement with the DuoNeb and Solu-Medrol. Her cardiac troponin is mildly elevated more so than prior. BNP is significantly more elevated. Chest x-ray shows emphysematous changes. BioFire test was negative. Patient may have a component of CHF on top of her COPD. Further evaluation and management in the hospital was deemed appropriate. [facility]. Patient was evaluated in the ER and admitted for further management. Care/management discussed with: manager ct Level of care consideration(s): After review of the information above and other included data, I feel the patient requires escalation of care to admission Triage Nursing notes: reviewed and agree them. Vital Signs: reviewed and remarkable for no significant abnormalities Additional History obtained from: none Chronic Medical/Social Conditions affecting care: COPD Prior/ Outside/ External records reviewed: Prior discharge summary reviewed. Patient was recently admitted for COPD asthma exacerbation. Differential Diagnosis: Reactive airway disease, pneumonia, pneumothorax, COPD, CHF, infections, cardiac ischemia, pulmonary embolism, musculoskeletal, gastrointestinal, as well as other pathologies. Diagnostics, independently interpreted by me: ECG: Twelve-lead ECG was sinus rhythm with PACs at 83 bpm. Right atrial enlargement. Inferior and anterolateral T wave inversions. Prolonged QT. When compared to prior ECG of December 2024 the anterior T wave inversions are more pronounced. Cardiac Monitoring: Cardiac monitoring ordered by me: The patient was placed on continuous cardiac monitoring and observed. It revealed a sinus rhythm at 87 beats per minute without evidence of dysrhythmia. Medical decision rules: none Imaging studies: Chest x-ray reveals COPD changes without acute infiltrate or pulmonary edema. HPI: 59 year old Female with PMH of chronic diastolic heart failure EF 55 to 60%, TTE 2023, CAD status post angioplasty/stent, chronic respiratory failure secondary to steroid-dependent COPD on home O2, recurrent spontaneous pneumothorax status post thoracotomy, HTN who arrives for evaluation of persistent shortness of breath. Patient was recently admitted for similar issues. She notes despite using her nebulizers and being on prednisone she is not doing well. She notes a mild cough. Patient denies any chest pain. No new sick contacts. Patient has been using all her other medications as prescribed. Pt denies LOC, headache, fevers, chills, diaphoresis, visual changes, neck pain, chest pain, leg swelling, nausea, vomiting, abdominal pain, back pain, melena, hematochezia, urinary symptoms, numbness, weakness, lymphadenopathy, rash, or other complaints. PAST MEDICAL HISTORY: See Below, COPD PAST SURGICAL HISTORY: See Below, SOCIAL HISTORY: See Below, HOME MEDICATIONS: See Below ALLERGIES: See Below VITALS: See Below PHYSICAL EXAMINATION: GENERAL: Awake, alert, mildly-appearing, in no distress HENT: Normocephalic, atraumatic. Oropharynx unremarkable. EYES: Normal conjunctiva. Sclera non-icteric. NECK: Inspection normal. Non-tender. Supple. No nuchal rigidity. FROM. No masses. RESPIRATORY: Decreased air movement bilateral. No wheezes. No rales. Mildly increased respiratory effort. CARDIAC: Normal rate. Normal rhythm. No murmurs. No rubs. Extremities warm and well perfused. Pulses equal. No JVD. GI: Soft, non-distended. No tenderness to palpation. No rebound or guarding. No masses. MUSCULOSKELETAL: Atraumatic. Chest examination reveals no tenderness. The back is symmetrical on inspection without obvious abnormality. There is no CVA tenderness to palpation. No joint edema. LOWER EXTREMITIES: Calves are equal size bilaterally and non-tender. No edema. No discoloration. NEURO: Normal sensorium. No sensory or motor deficits noted. SKIN: No rash or jaundice noted. PROCEDURES: none CRITICAL CARE: none OBSERVATION NOTE: none Past Med/Surg History Problem List (Updated 01/25/25 @ 00:21 by Micky Owens MD) COPD exacerbation SOB (shortness of breath) (Acute) Upper respiratory infection, viral (Acute) Shortness of breath (Acute) Elevated troponin (Acute) Abnormal ECG (Acute) Chronic heart failure with preserved ejection fraction Asthma exacerbation in COPD (Acute) Acute metabolic encephalopathy (Acute) Left lower lobe pneumonia Encounter for pre-operative examination Acute on chronic heart failure with reduced ejection fraction and diastolic dysfunction CKD (chronic kidney disease), stage III (Acute) Acute on chronic respiratory failure with hypoxia DVT prophylaxis Pulmonary nodule Pericardial effusion Hypotension Bacteremia Prolonged QT interval Hypertension Diarrhea (Acute) Lab test negative for COVID-19 virus (Acute) Nausea & vomiting (Acute) Colitis (Acute) Acute dehydration (Acute) Electrolyte abnormality Hypomagnesemia (Acute) Nausea and vomiting (Acute) Hypokalemia (Acute) Generalized abdominal pain (Acute) Pericardial effusion Left ventricular systolic dysfunction UNRULY (acute kidney injury) Chronic pericarditis with effusion UTI (urinary tract infection) Acute respiratory failure with hypercapnia Acute exacerbation of chronic obstructive pulmonary disease (Acute) Acute respiratory distress (Acute) Influenza A (Acute) Hypotension Volume overload Acute respiratory failure with hypoxia Anxiety Depression Electrolyte abnormality Transaminitis DVT prophylaxis COPD (chronic obstructive pulmonary disease) (Acute) HLD (hyperlipidemia) Rhabdomyolysis Acute renal failure Pulmonary nodule Nausea (Acute) Hypokalemia (Acute) COPD exacerbation (Acute) Wrist pain, right (Acute) Seizure (Acute) Influenza A (Acute) Hypoxia (Acute) Hypokalemia (Acute) Hypokalemia (Acute) Hypokalemia (Acute) COPD exacerbation (Acute) COPD exacerbation (Acute) Bronchitis (Acute) Asthma exacerbation in COPD (Acute) Acute bronchitis (Acute) Acute bronchitis (Acute) Cellulitis (Acute) CAD (coronary artery disease) Hypothyroidism HFrEF (heart failure with reduced ejection fraction) hx Medical History Emphysema/COPD daily nebulizer, and prn neb and inh; f/u pulmonology at [facility] and placedo 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 History of colitis Decreased mobility lt arm>CRPS PTSD (post-traumatic stress disorder) Unique anesthetic considerations on preoperative anesthesia assessment high level anxiety when sedated, hx intubation w Flu A....PTSD, "gets scared when put to sleep" History of colon polyps Low blood pressure currently on midodrine; f/u [facility] cardio at and placedo History of influenza INFLUENZA A, February 2022 - [facility] hospitalization, "intubated while in the hospital" Pain syndrome, chronic chronic regional pain syndrome : left arm/received lidocaine injections in placedo/every three months/due may 2023. left limb restriction. History of renal failure "from her crestor medication" Oxygen dependent 2 L o2 continuous. Emphysema lung Statin intolerance Chronic pain see pain clinic for lt arm and neck, [facility] Anxiety Shortness of breath chronic Neurofibromatosis Hypokalemia HX / CAN NOT TOLERATE PO POTASSIUM PILLS DUE TO GASTROPARESIS Hx of bronchitis Myocardial infarction 2010 - CHEST PAIN -[facility] ER AND HAD HEART CATH WITH ONE STENT (BARE METAL) FOLLOW WITH [facility] CARDIO Seizure 2013 ONLY HAD ONE -- ADMITTED TO [facility] --- METABOLIC RELATED ---- NO MEDICATION Pneumothorax AGE 24 - SURGERY TO REPAIR THE LEFT SIDE AND CHEMICAL TREATMENT ON THE RIGHT SIDE AT [facility] Gastroparesis Cavernous hemangioma of brain stable Surgical History Hx of right cataract extraction History of heart artery stent 2010, [facility], x1 stent; f/u [facility] cardio at History of endoscopy Hx of colonoscopy Hx of vaginal surgery 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 Hx of section X2 Hx of cardiac cath 2010, [facility], x1 stent; f/u s cardio at History of hernia repair UMBILICAL Family History Father Lung disease Severe emphysema, pneumothorax Brother Family history of diabetes mellitus Brother Family history of diabetes mellitus Family/Other Family history of cancer Aunt Family history of colonic polyps Grandfather Family history of lymphoma Social History Smoking Status: Never smoker Tobacco Type: Cigarettes Age Started Using Tobacco: 11; Age Quit Using Tobacco: 53; packs per day: 1; Cigarettes Per Day: has 1 occasionally; Second Hand Exposure: Yes; Do You Dip or Chew Tobacco: No; Hx Alcohol Use: No Hx Substance Use: Yes Last Used Substance: Days (ago) Last Used Substance Other:: daily-"just a few hits a day" Preferred Language: Kinyarwanda Communication Ability: Effective Hvac Service Technician Required: No Beliefs That Will Affect Care: None marital status: Current Living Situation: Spouse and Family Current Living Situation Comment: and daughter How many Children do You have: 3 Feels Safe at Home: Yes Assistive Devices: Nebulizer Allergies Allergies Allergy/AdvReac Type Severity Reaction Status Date / Time tramadol Allergy Severe Seizure Verified 10/13/24 00:02 adhesive Allergy Mild BANDAIDS : Verified 10/13/24 00:02 SKIN ABRASION ketorolac [From Toradol] Allergy Mild HX KIDNEY Verified 10/13/24 00:02 FAILURE adhesive tape Allergy Unknown SKIN TEARS Verified 10/13/24 00:02 ibuprofen Allergy Unknown HX KIDNEY Verified 10/13/24 00:02 FAILURE NSAIDS (Non-Steroidal Allergy Unknown HX KIDNEY Verified 10/13/24 00:02 Anti-Inflamma FAILURE Sulfa (Sulfonamide Allergy Unknown HIVES Verified 10/13/24 00:02 Antibiotics) meperidine AdvReac Unknown NOT A Verified 10/13/24 00:02 VERIFIED RXN: MOOD SWINGS prednisone AdvReac Unknown Patient Verified 10/13/24 00:02 Reports Contraindication in Kidney Failure/SEE NOTES rosuvastatin [From Crestor] AdvReac Unknown Weakness, Verified 10/13/24 00:02 RHABDOMYLOSIS, ACUTE RENAL FAILURE Home Meds Home Medications Medication Instructions Recorded Confirmed albuterol sulfate 90 mcg/actuation 2 puff inhalation Q4H PRN 11/11/24 01/24/25 aerosol inhaler Shortness Of Breath Or Wheezing aspirin 81 mg tablet,delayed 81 mg PO DAILY 11/11/24 01/24/25 release empagliflozin 10 mg tablet 10 mg PO DAILY 11/11/24 01/24/25 (Jardiance) evolocumab 140 mg/mL subcutaneous 140 mg subcut UD 11/11/24 01/24/25 pen injector (Repathann Muro) fluticasone 250 mcg-salmeterol 50 1 inh inhalation AMHS 11/11/24 01/24/25 mcg/dose blistr powdr for inhalation folic acid 1 mg tablet 1 mg PO QAM 11/11/24 01/24/25 ipratropium 0.5 mg-albuterol 3 mg 3 ml inhalation QID PRN Shortness 11/11/24 01/24/25 (2.5 mg base)/3 mL nebulization Of Breath Or Wheezing soln lorazepam 0.5 mg tablet 0.5 mg PO DAILY PRN Anxiety 11/11/24 01/24/25 methocarbamol 500 mg tablet 500 mg PO QID PRN muscle spasms 11/11/24 01/24/25 metoprolol succinate 50 mg 50 mg PO UD 11/11/24 01/24/25 tablet,extended release 24 hr omeprazole 20 mg capsule,delayed 20 mg PO AMHS 11/11/24 01/24/25 release ondansetron HCl 4 mg tablet 4 mg PO TID PRN Nausea And Vomiting 11/11/24 01/24/25 oxycodone 5 mg tablet 5 mg PO Q4H PRN Pain, Severe 11/11/24 01/24/25 paroxetine HCl 40 mg tablet 40 mg PO HS 11/11/24 01/24/25 pregabalin 75 mg capsule 75 mg PO TID 11/11/24 01/24/25 sacubitril 24 mg-valsartan 26 mg 1 tab PO AMHS 11/11/24 01/24/25 tablet (Entresto) levothyroxine 75 mcg tablet 75 mcg PO DAILYBB 01/15/25 01/24/25 (Synthroid) prednisone 5 mg tablet 5 mg PO QAM 01/15/25 01/24/25 spironolactone 25 mg tablet 12.5 mg PO QAM 01/15/25 01/24/25 Previous Rx's Medication Instructions Recorded midodrine 5 mg tablet 10 mg (2 x 5 mg) PO TID 30 days 01/19/25 #180 tabs Results & Data (ED) Vital Signs Vital Signs - 24 hr 01/24/25 18:48 01/24/25 19:05 01/24/25 19:26 Temperature 36.2 C L Temperature Source Temporal Artery Scan Pulse Rate 114 H 85 Pulse Rate [Apical] Pulse Rhythm [Apical] Pulse Strength [Apical] Respiratory Rate 20 Respiratory Effort / Characteristics Non-Labored Spontaneous Respiratory Depth Normal Respiratory Pattern Regular Blood Pressure 105/70 Blood Pressure [Right Arm] Blood Pressure Mean 81 Blood Pressure Mean [Right Arm] Blood Pressure Position [Right Arm] Pulse Oximetry 91 99 Oxygen Delivery Method Nasal Cannula Nasal Cannula Oxygen Flow Rate 2 2 Sepsis Recent Fever Within 48 Hours No Sepsis New/Unexplained Change in Mental Status N/A Sepsis Action Taken by Nursing No Action Required 01/24/25 19:26 01/24/25 21:00 01/24/25 21:09 Temperature Temperature Source Pulse Rate Pulse Rate [Apical] 87 74 Pulse Rhythm [Apical] Pulse Strength [Apical] Normal Normal Respiratory Rate 22 22 Respiratory Effort / Characteristics Labored Non-Labored Spontaneous Respiratory Depth Normal Normal Respiratory Pattern Regular Blood Pressure Blood Pressure [Right Arm] 118/91 109/74 Blood Pressure Mean Blood Pressure Mean [Right Arm] 100 85 Blood Pressure Position [Right Arm] Sitting Sitting Pulse Oximetry 99 98 Oxygen Delivery Method Nasal Cannula Nasal Cannula Oxygen Flow Rate 2 2 Sepsis Recent Fever Within 48 Hours Sepsis New/Unexplained Change in Mental Status Sepsis Action Taken by Nursing 01/24/25 22:49 01/24/25 23:00 01/25/25 01:00 Temperature Temperature Source Pulse Rate 75 Pulse Rate [Apical] 72 73 Pulse Rhythm [Apical] Regular Regular Pulse Strength [Apical] Normal Normal Respiratory Rate 20 20 Respiratory Effort / Characteristics Non-Labored Spontaneous Non-Labored Spontaneous Respiratory Depth Normal Normal Respiratory Pattern Regular Regular Blood Pressure Blood Pressure [Right Arm] 119/74 117/79 Blood Pressure Mean Blood Pressure Mean [Right Arm] 89 91 Blood Pressure Position [Right Arm] Lying Lying Pulse Oximetry 99 98 Oxygen Delivery Method Nasal Cannula Nasal Cannula Oxygen Flow Rate 2 2 Sepsis Recent Fever Within 48 Hours Sepsis New/Unexplained Change in Mental Status Sepsis Action Taken by Nursing Laboratory Data 01/24/25 19:42 01/24/25 19:42 Lab Results 01/24/25 01/24/25 01/24/25 Range/Units 19:05 19:42 23:01 WBC 13.96 H (4.8-10.8) K/ul RBC 4.48 (4.20-5.40) M/uL Hgb 14.4 (12.0-16.0) g/dl Hct 43.1 (37.0-47.0) % MCV 96.2 (80.0-100.0) fL MCH 32.1 (25.0-34.0) pg MCHC 33.4 (32.0-36.0) g/dL RDW Std Deviation 45.9 (36.4-46.3) fL RDW Coeff of Akiko 13.0 (11.5-14.5) % Plt Count 289 (130-400) K/uL MPV 9.7 (9.4-12.4) fL Immature Gran % (Auto) 0.3 % Neut % (Auto) 64.7 % Lymph % (Auto) 27.9 % [place] % (Auto) 6.9 % Eos % (Auto) 0.1 % Baso % (Auto) 0.1 % Neut # (Auto) 9.04 H (1.40-6.50) K/uL Lymph # (Auto) 3.89 H (1.20-3.40) K/uL [place] # (Auto) 0.97 H (0.11-0.59) K/uL Eos # (Auto) 0.01 (0.00-0.50) K/uL Baso # (Auto) 0.01 (0.00-0.20) K/uL Immature Gran # (Auto) 0.04 (0.01-0.20) K/uL Sodium 139 (136-145) mmol/L Potassium 3.5 (3.5-5.1) mmol/L Chloride 104 (98-107) mmol/L Carbon Dioxide 27 (21-32) mmol/L Anion Gap 8 (3-11) BUN 24 H (6-23) mg/dl Creatinine 1.35 H (0.6-1.2) mg/dl Est Cr Clr Drug Dosing Not Reportable eGFR 44.99 BUN/Creatinine Ratio 17.8 (10-20) Glucose 143 H (70-99(Fasting)) mg/dl Calcium 9.2 (8.6-10.3) mg/dl Magnesium 2.0 (1.7-2.4) mg/dl Total Bilirubin 0.5 (0.2-1.0) mg/dl AST 19 (13-39) U/L ALT 12 (7-52) U/L Alkaline Phosphatase 36 (34-104) U/L Troponin I High Sens 51.8 H* 64.3 H* D (0-14) pg/ml B-Natriuretic Peptide 532 H (0-100) pg/ml Total Protein 6.6 (6.0-8.3) gm/dl Albumin 3.9 (3.4-5.0) gm/dl Globulin 2.7 (2.5-4.0) gm/dl Albumin/Globulin Ratio 1.4 (0.9-2) Adenovirus (PCR) Not Detected (NotDetected) B. pertussis DNA (PCR) Not Detected (NotDetected) B.parapertussis DNA PCR Not Detected (NotDetected) C. pneumoniae DNA (PCR) Not Detected (NotDetected) Coronavirus OC43 (PCR) Not Detected (NotDetected) Coronavirus HKU1 (PCR) Not Detected (NotDetected) Coronavirus 229E (PCR) Not Detected (NotDetected) SARS-CoV-2 (PCR) Not Detected (NotDetected) Coronavirus NL63 (PCR) Not Detected (NotDetected) Human Metapneumovir PCR Not Detected (NotDetected) Influenza Type A (PCR) Not Detected (NotDetected) Influenza Type B (PCR) Not Detected (NotDetected) M. pneumoniae (PCR) Not Detected (NotDetected) Parainfluenza 1 (PCR) Not Detected (NotDetected) Parainfluenza 2 (PCR) Not Detected (NotDetected) Parainfluenza 3 (PCR) Not Detected (NotDetected) Parainfluenza 4 (PCR) Not Detected (NotDetected) RSV (PCR) Not Detected (NotDetected) Entero/Rhino (PCR) Not Detected (NotDetected) Administered Medications Discontinued Medications Albuterol (Albut/Ipratrop 3mg/0.5mg Neb 3 Ml Vial) 3 ml NEB NOW STA; Protocol Stop: 01/24/25 19:26 Last Admin: 01/24/25 19:36 Dose: 3 ml Documented By: EUGENIA Albuterol (Albut/Ipratrop 3mg/0.5mg Neb 3 Ml Vial) 3 ml NEB NOW STA; Protocol Stop: 01/24/25 21:40 Last Admin: 01/24/25 21:52 Dose: 3 ml Documented By: EUGENIA Methylprednisolone (Methylprednisolone 125 Mg/2 Ml Vial) 60 mg IV NOW STA Stop: 01/24/25 19:26 Last Admin: 01/24/25 19:44 Dose: 60 mg Documented By: EUGENIA Midodrine (Midodrine Hcl 10 Mg Tab) 10 mg PO NOW STA Stop: 01/24/25 21:40 Last Admin: 01/24/25 21:51 Dose: 10 mg Documented By: EUGENIA Imaging Data Radiologist's Impression: Chest X-Ray 01/24/25 18:51 Exam(s): XR CXR 1 VIEW EXAM: XR Chest, 1 View CLINICAL HISTORY: Reason for exam: Dyspnea. TECHNIQUE: Frontal view of the chest. COMPARISON: Chest x-ray 01/15/2025 FINDINGS: Lungs: Severe emphysematous changes. No consolidation. Pleural space: No pleural effusion. No pneumothorax. Heart: Unremarkable. No cardiomegaly. IMPRESSION: Severe emphysematous changes. No consolidation. Electronically signed by: Hong Chakraborty MD 01/24/25 21:33 PM Discharge Plan Visit Data Chief Complaint: Shortness of Breath/Dyspnea Stated Complaint: TROUBLE BREATHING ED Provider: Rich Mathews Discharge Problem: SOB (shortness of breath) Forms Stand Alone Forms: [facility] [employer] Prescriptions Prescriptions: No Action methocarbamol 500 mg tablet 500 mg PO QID PRN (Reason: muscle spasms) fluticasone propion-salmeterol 250-50 mcg/dose blister with device 1 inh INHALATION AMHS ipratropium-albuterol 0.5 mg-3 mg(2.5 mg base)/3 mL solution for nebulization 3 ml INHALATION QID PRN (Reason: Shortness Of Breath Or Wheezing) metoprolol succinate 50 mg tablet extended release 24 hr 50 mg PO UD Rx Instructions: 50mg in am and 25mg q hs ondansetron HCl 4 mg tablet 4 mg PO TID PRN (Reason: Nausea And Vomiting) aspirin 81 mg Tablet,Delayed Release (Dr/Ec) 81 mg PO DAILY lorazepam 0.5 mg tablet 0.5 mg PO DAILY PRN (Reason: Anxiety) omeprazole 20 mg capsule,delayed release(DR/EC) 20 mg PO AMHS folic acid 1 mg tablet 1 mg PO QAM albuterol sulfate 90 mcg/actuation HFA aerosol inhaler 2 puff INHALATION Q4H PRN (Reason: Shortness Of Breath Or Wheezing) paroxetine HCl 40 mg tablet 40 mg PO HS oxycodone 5 mg tablet 5 mg PO Q4H PRN (Reason: Pain, Severe) pregabalin 75 mg capsule 75 mg PO TID Jardiance 10 mg tablet 10 mg PO DAILY sacubitril-valsartan [Entresto] 24-26 mg tablet 1 tab PO AMHS Repatha SureClick 140 mg/mL pen injector 140 mg SUBCUT UD Rx Instructions: every 2 weeks spironolactone 25 mg tablet 12.5 mg PO QAM prednisone 5 mg tablet 5 mg PO QAM Hold Instructions: Until complete with steroid taper levothyroxine [Synthroid] 75 mcg tablet 75 mcg PO DAILYBB midodrine 5 mg tablet 10 mg PO TID 30 Days Qty: 180 0RF Rx Instructions: 5mg PO TID at 8AM, NOON AND 5PM Referrals Referrals: Ludy Jacobs CRNP [Primary Care Provider] -
[2025-01-24] MEDS: ALBUT/IPRATROP 3MG/0.5MG NEB 3 ML VIAL NEB STA ×2 (19:36→21:52)
[2025-01-24] MEDS: methylPREDNISolone 125 MG/2 ML VIAL IV STA (19:44)
[2025-01-24 20:06] LABS: Basophils # (auto) 0.01 K/uL (0.00-0.20); Basophils % (auto) 0.1 %; Eosinophils # (auto) 0.01 K/uL (0.00-0.50); Eosinophils % (auto) 0.1 %; Hematocrit (blood only) 43.1 % (37.0-47.0); Hemoglobin 14.4 g/dl (12.0-16.0); Immature Granulocytes # (auto) 0.04 K/uL (0.01-0.20); Immature Granulocytes % (auto) 0.3 %; Lymphocytes # (auto) 3.89 K/uL (1.20-3.40); Lymphocytes % (auto) 27.9 %; Mean Corpuscular Hemoglobin 32.1 pg (25.0-34.0); Mean Corpuscular Hgb Conc 33.4 g/dL (32.0-36.0); Mean Corpuscular Volume 96.2 fL (80.0-100.0); Mean Platelet Volume 9.7 fL (9.4-12.4); Monocytes # (auto) 0.97 K/uL (0.11-0.59); Monocytes % (auto) 6.9 %; Neutrophils # (auto) 9.04 K/uL (1.40-6.50); Neutrophils % (auto) 64.7 %; Platelet Count 289 K/uL (130-400); RDW Standard Deviation 45.9 fL (36.4-46.3); Red Blood Count 4.48 M/uL (4.20-5.40); White Blood Count 13.96 K/ul (4.8-10.8)
[2025-01-24 20:13] LABS: Adenovirus PCR Not Detected (NotDetected); Bordetella parapertussis PCR Not Detected (NotDetected); Bordetella pertussis PCR Not Detected (NotDetected); Chlamydia pneumoniae PCR Not Detected (NotDetected); Coronavirus 229E PCR Not Detected (NotDetected); Coronavirus CoV-2 (COVID19)PCR Not Detected (NotDetected); Coronavirus HKU1 PCR Not Detected (NotDetected); Coronavirus NL63 PCR Not Detected (NotDetected); Coronavirus OC43PCR Not Detected (NotDetected); Human Metapneumovirus PCR Not Detected (NotDetected); Influenza A PCR Not Detected (NotDetected); Influenza B PCR Not Detected (NotDetected); Mycoplasma pneumoniae PCR Not Detected (NotDetected); Parainfluenza Virus 1 PCR Not Detected (NotDetected); Parainfluenza Virus 2 PCR Not Detected (NotDetected); Parainfluenza Virus 3 PCR Not Detected (NotDetected); Parainfluenza Virus 4 PCR Not Detected (NotDetected); Respiratory Syncytial VirusPCR Not Detected (NotDetected); Rhinovirus/Enterovirus PCR Not Detected (NotDetected)
[2025-01-24 20:16] LABS: Alanine Aminotransferase 12 U/L (7-52); Albumin Globulin Ratio 1.4 (0.9-2); Albumin Level 3.9 gm/dl (3.4-5.0); Alkaline Phosphatase 36 U/L (34-104); Anion Gap 8 (3-11); Aspartate Aminotransferase 19 U/L (13-39); BUN Creatinine Ratio 17.8 (10-20); Bilirubin,Total 0.5 mg/dl (0.2-1.0); Blood Urea Nitrogen 24 mg/dl (6-23); Calcium 9.2 mg/dl (8.6-10.3); Carbon Dioxide 27 mmol/L (21-32); Chloride 104 mmol/L (98-107); Globulin 2.7 gm/dl (2.5-4.0); Glucose 143 mg/dl (70-99(Fasting)); Potassium 3.5 mmol/L (3.5-5.1); Sodium 139 mmol/L (136-145); Total Protein 6.6 gm/dl (6.0-8.3)
[2025-01-24 20:38] LABS: Troponin I High Sensitivity 51.8 pg/ml (0-14)
--- NOTE | 2025-01-24 21:34 | XRay Report ---
Exam(s): XR CXR 1 VIEW EXAM: XR Chest, 1 View CLINICAL HISTORY: Reason for exam: Dyspnea. TECHNIQUE: Frontal view of the chest. COMPARISON: Chest x-ray 01/15/2025 FINDINGS: Lungs: Severe emphysematous changes. No consolidation. Pleural space: No pleural effusion. No pneumothorax. Heart: Unremarkable. No cardiomegaly. IMPRESSION: Severe emphysematous changes. No consolidation. Electronically signed by: Hong Chakraborty MD 01/24/25 21:33 PM
[2025-01-24] MEDS: MIDODRINE HCL 10 MG TAB PO STA (21:51)
--- NOTE | 2025-01-25 00:25 | History & Physical Report ---
Date of Service January 25, 2025 Assessment & Plan (1) COPD exacerbation: Plan: 59-year-old female with past med history significant for chronic respiratory failure using oxygen 2 L, COPD, hypothyroidism, hyperlipidemia, lung nodules, history of CAD status post stent, chronic combined systolic and diastolic CHF, CKD stage III, cerebellar hemangioma, hypertension, moderate mitral regurgitation, irritable bowel syndrome with constipation, gastroparesis, sicca syndrome, diverticulosis, degenerative disease, reflux sympathetic dystrophy, depression, generalized anxiety disorder, PTSD, statin intolerance, presents with shortness of breath and cough. Patient was recently in the hospital for COPD exacerbation. Patient says she continues to have shortness of breath and cough and bringing up phlegm. Denies any fevers. She has chest pain when taking deep breath. Has mild headache. No dizziness. Vision is okay. No runny nose or sore throat. Appetite is okay. No nausea. No abdominal pain. Normal bowel and bladder movements. Hemodynamics okay. COPD exacerbation recurrent On home oxygen Chest x-ray no acute findings IV Solu-Medrol 40 mg 3 times daily DuoNebs atc and as needed Continue home inhalers Will follow procalcitonin levels Monitor in med/telemetry Chest pain when taking deep breath Mild elevation of troponin Abnormal EKG Will follow serial cardiac enzymes and echo Will follow repeat EKG If any concerns will consult cardiology Chronic hypotension On midodrine Midodrine was increased to 10 mg 3 times daily last admit History of CAD status post stent Bare-metal stents x 1 2010 On beta-lynne and aspirin and Repatha History of right cerebellar cavernoma High risk of bleeding to avoid antiplatelet/anticoagulation as per cardiology notes Chronic systolic and diastolic CHF Moderate mitral regurgitation EF 35 to 39% echo done on 07/28/2023 ef 60-65% on echo 09/19/24 On metoprolol succinate, Jardiance and Entresto and spironolactone Monitor for volume overload GERD On omeprazole Hyperlipidemia On Repatha Hypothyroidism On Synthyroid Depression and anxiety On Paxil and Ativan as needed DVT prophylaxis Heparin subcu Disposition Med/telemetry Full code. History of Present Illness Chief Complaint: Shortness of breath Primary Care Provider: ALIYAH Goldman 59-year-old female with past med history significant for chronic respiratory failure using oxygen 2 L, COPD, hypothyroidism, hyperlipidemia, lung nodules, history of CAD status post stent, chronic combined systolic and diastolic CHF, CKD stage III, cerebellar hemangioma, hypertension, moderate mitral regurgitation, irritable bowel syndrome with constipation, gastroparesis, sicca syndrome, diverticulosis, degenerative disease, reflux sympathetic dystrophy, depression, generalized anxiety disorder, PTSD, statin intolerance, presents with shortness of breath and cough. Patient was recently in the hospital for COPD exacerbation. Patient says she continues to have shortness of breath and cough and bringing up phlegm. Denies any fevers. She has chest pain when taking deep breath. Has mild headache. No dizziness. Vision is okay. No runny nose or sore throat. Appetite is okay. No nausea. No abdominal pain. Normal bowel and bladder movements. Hemodynamics okay. Past medical history. As mentioned above. Past surgical history. . Colonoscopy. Conization of cervix. EGD. EGD with biopsy. Injection of lumbosacral spine. Diagnostic laparoscopy. Ligation of oviducts. Tonsillectomy. Excision of left wrist ganglion. Repair of incisional hernia. Thoracotomy with repair of lung in 1988 and 1990 secondary to pneumothorax. Social history. . Smokes half pack a day for 45 years. Alcohol rarely. No drug use. Social history. Paternal grandfather had cancer. Aunt had colon cancer. Father had heart attack. Stroke. Mother had rheumatoid arthritis. Sister had stroke. Sister has diabetes. Brother has hypertension, diabetes. Allergies Allergy/AdvReac Type Severity Reaction Status Date / Time tramadol Allergy Severe Seizure Verified 10/13/24 00:02 adhesive Allergy Mild BANDAIDS : Verified 10/13/24 00:02 SKIN ABRASION ketorolac [From Toradol] Allergy Mild HX KIDNEY Verified 10/13/24 00:02 FAILURE adhesive tape Allergy Unknown SKIN TEARS Verified 10/13/24 00:02 ibuprofen Allergy Unknown HX KIDNEY Verified 10/13/24 00:02 FAILURE NSAIDS (Non-Steroidal Allergy Unknown HX KIDNEY Verified 10/13/24 00:02 Anti-Inflamma FAILURE Sulfa (Sulfonamide Allergy Unknown HIVES Verified 10/13/24 00:02 Antibiotics) meperidine AdvReac Unknown NOT A Verified 10/13/24 00:02 VERIFIED RXN: MOOD SWINGS prednisone AdvReac Unknown Patient Verified 10/13/24 00:02 Reports Contraindication in Kidney Failure/SEE NOTES rosuvastatin [From Crestor] AdvReac Unknown Weakness, Verified 10/13/24 00:02 RHABDOMYLOSIS, ACUTE RENAL FAILURE Home Medications Medication Instructions Recorded Confirmed Type albuterol sulfate 90 mcg/actuation 2 puff inhalation Q4H PRN 11/11/24 01/24/25 History aerosol inhaler Shortness Of Breath Or Wheezing aspirin 81 mg tablet,delayed 81 mg PO DAILY 11/11/24 01/24/25 History release empagliflozin 10 mg tablet 10 mg PO DAILY 11/11/24 01/24/25 History (Jardiance) evolocumab 140 mg/mL subcutaneous 140 mg subcut UD 11/11/24 01/24/25 History pen injector (Reyes Muro) fluticasone 250 mcg-salmeterol 50 1 inh inhalation AMHS 11/11/24 01/24/25 History mcg/dose blistr powdr for inhalation folic acid 1 mg tablet 1 mg PO QAM 11/11/24 01/24/25 History ipratropium 0.5 mg-albuterol 3 mg 3 ml inhalation QID PRN Shortness 11/11/24 01/24/25 History (2.5 mg base)/3 mL nebulization Of Breath Or Wheezing soln lorazepam 0.5 mg tablet 0.5 mg PO DAILY PRN Anxiety 11/11/24 01/24/25 History methocarbamol 500 mg tablet 500 mg PO QID PRN muscle spasms 11/11/24 01/24/25 History metoprolol succinate 50 mg 50 mg PO UD 11/11/24 01/24/25 History tablet,extended release 24 hr omeprazole 20 mg capsule,delayed 20 mg PO AMHS 11/11/24 01/24/25 History release ondansetron HCl 4 mg tablet 4 mg PO TID PRN Nausea And Vomiting 11/11/24 01/24/25 History oxycodone 5 mg tablet 5 mg PO Q4H PRN Pain, Severe 11/11/24 01/24/25 History paroxetine HCl 40 mg tablet 40 mg PO HS 11/11/24 01/24/25 History pregabalin 75 mg capsule 75 mg PO TID 11/11/24 01/24/25 History sacubitril 24 mg-valsartan 26 mg 1 tab PO AMHS 11/11/24 01/24/25 History tablet (Entresto) levothyroxine 75 mcg tablet 75 mcg PO DAILYBB 01/15/25 01/24/25 History (Synthroid) prednisone 5 mg tablet 5 mg PO QAM 01/15/25 01/24/25 History spironolactone 25 mg tablet 12.5 mg PO QAM 01/15/25 01/24/25 History midodrine 5 mg tablet 10 mg (2 x 5 mg) PO TID 30 days 01/19/25 01/24/25 Rx #180 tabs Past Med/Surg History Problem List (Updated 01/25/25 @ 00:21 by Micky Owens MD) COPD exacerbation SOB (shortness of breath) (Acute) Upper respiratory infection, viral (Acute) Shortness of breath (Acute) Elevated troponin (Acute) Abnormal ECG (Acute) Chronic heart failure with preserved ejection fraction Asthma exacerbation in COPD (Acute) Acute metabolic encephalopathy (Acute) Left lower lobe pneumonia Encounter for pre-operative examination Acute on chronic heart failure with reduced ejection fraction and diastolic d ysfunction CKD (chronic kidney disease), stage III (Acute) Acute on chronic respiratory failure with hypoxia DVT prophylaxis Pulmonary nodule Pericardial effusion Hypotension Bacteremia Prolonged QT interval Hypertension Diarrhea (Acute) Lab test negative for COVID-19 virus (Acute) Nausea & vomiting (Acute) Colitis (Acute) Acute dehydration (Acute) Electrolyte abnormality Hypomagnesemia (Acute) Nausea and vomiting (Acute) Hypokalemia (Acute) Generalized abdominal pain (Acute) Pericardial effusion Left ventricular systolic dysfunction UNRULY (acute kidney injury) Chronic pericarditis with effusion UTI (urinary tract infection) Acute respiratory failure with hypercapnia Acute exacerbation of chronic obstructive pulmonary disease (Acute) Acute respiratory distress (Acute) Influenza A (Acute) Hypotension Volume overload Acute respiratory failure with hypoxia Anxiety Depression Electrolyte abnormality Transaminitis DVT prophylaxis COPD (chronic obstructive pulmonary disease) (Acute) HLD (hyperlipidemia) Rhabdomyolysis Acute renal failure Pulmonary nodule Nausea (Acute) Hypokalemia (Acute) COPD exacerbation (Acute) Wrist pain, right (Acute) Seizure (Acute) Influenza A (Acute) Hypoxia (Acute) Hypokalemia (Acute) Hypokalemia (Acute) Hypokalemia (Acute) COPD exacerbation (Acute) COPD exacerbation (Acute) Bronchitis (Acute) Asthma exacerbation in COPD (Acute) Acute bronchitis (Acute) Acute bronchitis (Acute) Cellulitis (Acute) CAD (coronary artery disease) Hypothyroidism HFrEF (heart failure with reduced ejection fraction) hx Medical History Emphysema/COPD daily nebulizer, and prn neb and inh; f/u pulmonology at [facility] and [place] 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 History of colitis Decreased mobility lt arm>CRPS PTSD (post-traumatic stress disorder) Unique anesthetic considerations on preoperative anesthesia assessment high level anxiety when sedated, hx intubation w Flu A....PTSD, "gets scared when put to sleep" History of colon polyps Low blood pressure currently on midodrine; f/u [facility] cardio at and [place] History of influenza INFLUENZA A, February 2022 - [facility] hospitalization, "intubated while in the hospital" Pain syndrome, chronic chronic regional pain syndrome : left arm/received lidocaine injections in [place]/every three months/due may 2023. left limb restriction. History of renal failure "from her crestor medication" Oxygen dependent 2 L o2 continuous. Emphysema lung Statin intolerance Chronic pain see pain clinic for lt arm and neck, @[facility] Anxiety Shortness of breath chronic Neurofibromatosis Hypokalemia HX / CAN NOT TOLERATE PO POTASSIUM PILLS DUE TO GASTROPARESIS Hx of bronchitis Myocardial infarction 2010 - CHEST PAIN -[facility] ER AND HAD HEART CATH WITH ONE STENT (BARE METAL) FOLLOW WITH [facility] Seizure 2014 ONLY HAD ONE -- ADMITTED TO [facility] --- METABOLIC RELATED ---- NO MEDICATION Pneumothorax AGE 24 - SURGERY TO REPAIR THE LEFT SIDE AND CHEMICAL TREATMENT ON THE RIGHT SIDE AT [place] Gastroparesis Cavernous hemangioma of brain stable Surgical History Hx of right cataract extraction History of heart artery stent 2010, [place], [facility], x1 stent; f/u [facility] cardio at History of endoscopy Hx of colonoscopy Hx of vaginal surgery 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 Hx of section X2 Hx of cardiac cath 2010, [place], [facility], x1 stent; f/u [facility] cardio at History of hernia repair UMBILICAL Family History Father Lung disease Severe emphysema, pneumothorax Brother Family history of diabetes mellitus Brother Family history of diabetes mellitus Family/Other Family history of cancer Aunt Family history of colonic polyps Grandfather Family history of lymphoma Social History Smoking Status: Former smoker Tobacco Type: Cigarettes Age Started Using Tobacco: 11; Age Quit Using Tobacco: 53; packs per day: 1; Cigarettes Per Day: has 1 occasionally; Second Hand Exposure: Yes; Do You Dip or Chew Tobacco: No; Hx Alcohol Use: No Hx Substance Use: Yes Last Used Substance: Days (ago) Last Used Substance Other:: daily-"just a few hits a day" Preferred Language: Turkmen Communication Ability: Effective [employer] M[employer] Developer Required: No Beliefs That Will Affect Care: None marital status: Current Living Situation: Spouse Current Living Situation Comment: and daughter How many Children do You have: 3 Other Information That Helps Us Care for You: No Feels Safe at Home: Yes Safety Concerns: Feels Safe At This Time Assistive Devices: Oxygen - Continuous Review of Systems Review of Systems: All systems reviewed & are unremarkable except as noted in HPI & below Physical Exam Physical Exam: General- Not in distress Head- atraumatic Eyes- PERRL. ENT- oropharynx clear Neck- supple, no JVD. Lungs- clear to auscultation mild b/l wheezing, no crackles Heart- regular rhythm; no murmur, no gallop. Abdomen- normal bowel sounds, soft, nontender, no distension Extremities- no pretibial edema, no erythema seen Neuro- alert, oriented PERRL, no facial palsy; no dysarthria; moves extremities Results & Data Results & Data Vital Signs (Past 12 Hours) Vital Signs Temp Pulse Pulse Resp BP BP Pulse Ox 01/24/25 22:49 75 01/24/25 21:09 109/74 01/24/25 21:00 74 22 98 01/24/25 19:26 87 22 118/91 99 01/24/25 19:26 99 01/24/25 19:05 85 01/24/25 18:48 36.2 C L 114 H 20 105/70 91 O2 Del Method O2 Flow Rate 01/24/25 22:49 01/24/25 21:09 01/24/25 21:00 Nasal Cannula 2 01/24/25 19:26 Nasal Cannula 2 01/24/25 19:26 Nasal Cannula 2 01/24/25 19:05 01/24/25 18:48 Nasal Cannula 2 Diagnostic Findings Laboratory Results WBC 13.96 K/ul (4.8-10.8) H 01/24/25 19:42 RBC 4.48 M/uL (4.20-5.40) 01/24/25 19:42 Hgb 14.4 g/dl (12.0-16.0) 01/24/25 19:42 Hct 43.1 % (37.0-47.0) 01/24/25 19:42 MCV 96.2 fL (80.0-100.0) 01/24/25 19:42 MCH 32.1 pg (25.0-34.0) 01/24/25 19:42 MCHC 33.4 g/dL (32.0-36.0) 01/24/25 19:42 RDW Std Deviation 45.9 fL (36.4-46.3) 01/24/25 19:42 RDW Coeff of Akiko 13.0 % (11.5-14.5) 01/24/25 19:42 Plt Count 289 K/uL (130-400) 01/24/25 19:42 MPV 9.7 fL (9.4-12.4) 01/24/25 19:42 Immature Gran % (Auto) 0.3 % 01/24/25 19:42 Neut % (Auto) 64.7 % 01/24/25 19:42 Lymph % (Auto) 27.9 % 01/24/25 19:42 Edmunds % (Auto) 6.9 % 01/24/25 19:42 Eos % (Auto) 0.1 % 01/24/25 19:42 Baso % (Auto) 0.1 % 01/24/25 19:42 Neut # (Auto) 9.04 K/uL (1.40-6.50) H 01/24/25 19:42 Lymph # (Auto) 3.89 K/uL (1.20-3.40) H 01/24/25 19:42 Edmunds # (Auto) 0.97 K/uL (0.11-0.59) H 01/24/25 19:42 Eos # (Auto) 0.01 K/uL (0.00-0.50) 01/24/25 19:42 Baso # (Auto) 0.01 K/uL (0.00-0.20) 01/24/25 19:42 Immature Gran # (Auto) 0.04 K/uL (0.01-0.20) 01/24/25 19:42 Sodium 139 mmol/L (136-145) 01/24/25 19:42 Potassium 3.5 mmol/L (3.5-5.1) 01/24/25 19:42 Chloride 104 mmol/L (98-107) 01/24/25 19:42 Carbon Dioxide 27 mmol/L (21-32) 01/24/25 19:42 Anion Gap 8 (3-11) 01/24/25 19:42 BUN 24 mg/dl (6-23) H 01/24/25 19:42 Creatinine 1.35 mg/dl (0.6-1.2) H 01/24/25 19:42 Est Cr Clr Drug Dosing Not Reportable 01/24/25 19:42 eGFR 44.99 01/24/25 19:42 BUN/Creatinine Ratio 17.8 (10-20) 01/24/25 19:42 Glucose 143 mg/dl (70-99(Fasting)) H 01/24/25 19:42 Calcium 9.2 mg/dl (8.6-10.3) 01/24/25 19:42 Magnesium 2.0 mg/dl (1.7-2.4) 01/24/25 19:42 Total Bilirubin 0.5 mg/dl (0.2-1.0) 01/24/25 19:42 AST 19 U/L (13-39) 01/24/25 19:42 ALT 12 U/L (7-52) 01/24/25 19:42 Alkaline Phosphatase 36 U/L (34-104) 01/24/25 19:42 Troponin I High Sens 51.8 pg/ml (0-14) H* 01/24/25 19:42 B-Natriuretic Peptide 532 pg/ml (0-100) H 01/24/25 19:42 Total Protein 6.6 gm/dl (6.0-8.3) 01/24/25 19:42 Albumin 3.9 gm/dl (3.4-5.0) 01/24/25 19:42 Globulin 2.7 gm/dl (2.5-4.0) 01/24/25 19:42 Albumin/Globulin Ratio 1.4 (0.9-2) 01/24/25 19:42 Adenovirus (PCR) Not Detected (NotDetected) 01/24/25 19:05 B. pertussis DNA (PCR) Not Detected (NotDetected) 01/24/25 19:05 B.parapertussis DNA PCR Not Detected (NotDetected) 01/24/25 19:05 C. pneumoniae DNA (PCR) Not Detected (NotDetected) 01/24/25 19:05 Coronavirus OC43 (PCR) Not Detected (NotDetected) 01/24/25 19:05 Coronavirus HKU1 (PCR) Not Detected (NotDetected) 01/24/25 19:05 Coronavirus 229E (PCR) Not Detected (NotDetected) 01/24/25 19:05 SARS-CoV-2 (PCR) Not Detected (NotDetected) 01/24/25 19:05 Coronavirus NL63 (PCR) Not Detected (NotDetected) 01/24/25 19:05 Human Metapneumovir PCR Not Detected (NotDetected) 01/24/25 19:05 Influenza Type A (PCR) Not Detected (NotDetected) 01/24/25 19:05 Influenza Type B (PCR) Not Detected (NotDetected) 01/24/25 19:05 M. pneumoniae (PCR) Not Detected (NotDetected) 01/24/25 19:05 Parainfluenza 1 (PCR) Not Detected (NotDetected) 01/24/25 19:05 Parainfluenza 2 (PCR) Not Detected (NotDetected) 01/24/25 19:05 Parainfluenza 3 (PCR) Not Detected (NotDetected) 01/24/25 19:05 Parainfluenza 4 (PCR) Not Detected (NotDetected) 01/24/25 19:05 RSV (PCR) Not Detected (NotDetected) 01/24/25 19:05 Entero/Rhino (PCR) Not Detected (NotDetected) 01/24/25 19:05 Impressions Chest X-Ray 01/24/25 18:51 Exam(s): XR CXR 1 VIEW EXAM: XR Chest, 1 View CLINICAL HISTORY: Reason for exam: Dyspnea. TECHNIQUE: Frontal view of the chest. COMPARISON: Chest x-ray 01/15/2025 FINDINGS: Lungs: Severe emphysematous changes. No consolidation. Pleural space: No pleural effusion. No pneumothorax. Heart: Unremarkable. No cardiomegaly. IMPRESSION: Severe emphysematous changes. No consolidation. Electronically signed by: Hong Chakraborty MD 01/24/25 21:33 PM ECG Additional Comments: ECG. Sinus rhythm with PACs with aberrant conduction at rate of 83. T wave inversions in inferior and lateral leads with seems chronic. ST depression in anterior leads Code Status & VTE Plan VTE Prophylaxis Plan VTE Prophylaxis will be ordered: Yes
[2025-01-25] MEDS ORDERED: ACETAMINOPHEN 325 MG TAB PO PRN (01:28)
[2025-01-25] MEDS ORDERED: METHOCARBAMOL 500 MG TABLET PO PRN (01:28)
[2025-01-25] MEDS ORDERED: POLYETHYLENE (MIRALAX) 17 GM PACK PO PRN (01:28)
[2025-01-25] MEDS ORDERED: ALBUTEROL HFA 8 GM INHALER INH PRN (01:28)
[2025-01-25] MEDS ORDERED: oxyCODONE HCL IR 5 MG TAB (IMMEDIATE RELEASE) PO PRN (01:28)
[2025-01-25] MEDS ORDERED: NITROGLYCERIN SL 0.4 MG/TAB TAB SL PRN (01:28)
[2025-01-25] MEDS: LEVOTHYROXINE SODIUM 75 MCG TABLET PO SCH (05:34)
[2025-01-25] MEDS: methylPREDNISolone 40 MG in SYRINGE 0 ML IV SCH (05:34)
[2025-01-25] MEDS: HEPARIN SOD 5,000 UNIT/0.5 ML VIAL SQ SCH (05:34)
[2025-01-25 06:34] LABS: Eosinophils # (auto) 0.01 K/uL (0.00-0.50); Eosinophils % (auto) 0.1 %; Hemoglobin 12.9 g/dl (12.0-16.0); Immature Granulocytes # (auto) 0.04 K/uL (0.01-0.20); Immature Granulocytes % (auto) 0.5 %; Lymphocytes # (auto) 0.61 K/uL (1.20-3.40); Mean Corpuscular Hgb Conc 33.1 g/dL (32.0-36.0); Mean Corpuscular Volume 96.8 fL (80.0-100.0); Monocytes % (auto) 2.6 %; Neutrophils # (auto) 6.79 K/uL (1.40-6.50); Neutrophils % (auto) 88.8 %; Platelet Count 245 K/uL (130-400); RDW Coefficient of Variation 12.8 % (11.5-14.5); Red Blood Count 4.03 M/uL (4.20-5.40); White Blood Count 7.65 K/ul (4.8-10.8)
[2025-01-25 06:46] LABS: BUN Creatinine Ratio 17.4 (10-20); Calcium 8.9 mg/dl (8.6-10.3); Creatinine Clr Calc Pharmacy 44.5 ml/min
[2025-01-25 06:52] LABS: Troponin I High Sensitivity 48.6 pg/ml (0-14)
[2025-01-25] MEDS: ALBUT/IPRATROP 3MG/0.5MG NEB 3 ML VIAL NEB SCH (07:12)
[2025-01-25] MEDS: ASPIRIN 81 MG ECTAB PO SCH (08:54)
[2025-01-25] MEDS: FOLIC ACID 1 MG TAB PO SCH (08:55)
[2025-01-25] MEDS: EMPAGLIFLOZIN 10 MG TAB PO SCH (08:55)
[2025-01-25] MEDS: LORATADINE 10 MG TAB PO SCH (08:55)
[2025-01-25] MEDS: METOPROLOL SUCC 50MG EXT REL TAB PO SCH (08:55)
[2025-01-25] MEDS: PANTOprazole 40 MG TAB PO SCH (08:56)
[2025-01-25] MEDS: SPIRONOLACTONE 12.5 MG TAB PO SCH (08:56)
[2025-01-25] MEDS: PREGABALIN 75 MG CAP PO SCH (08:56)
[2025-01-25] MEDS: VALSARTAN/SACUBITRIL 26/24MG TAB PO SCH (08:57)
[2025-01-25] MEDS: FLUTICASONE/VILANTEROL 100/25MCG 14 PUFFS/INHALER INH SCH (09:00)
[2025-01-25] MEDS ORDERED: methylPREDNISolone 125 MG/2 ML VIAL IV SCH (09:00)
[2025-01-25] MEDS: MIDODRINE HCL 10 MG TAB PO SCH (09:19)
[2025-01-25] MEDS: UMECLIDINIUM BROMIDE 62.5MCG/BLISTER 7 PUFFS/INHALER INH SCH (09:44)
[2025-01-25] MEDS: HYDROcodone/HOMATROPINE SYRUP 5MG/1.5MG 5ML UDP PO STA (13:55)
--- NOTE | 2025-01-25 13:55 | Communication Note ---
Date of Service: January 25, 2025 admitted again for exacerbation of copd--continued wheezing and cough noted that patient ICS/LABA Denies any fevers or sputum, but increased wheezing, cough, chest tightness exam noted for wheezing and persistent dry cough #Acute exacerbation of COPD: COPD exacerbation presenting as a complicated bronchitis, no sepsis POA. Admitting chest imaging negative for acute finding, negative for pulmonary embolism. Demonstrated severe emphysema. Respiratory BioFire negative. 01/25 methylpred q 8h IV hold on abx continue laba/ics add LAMA add singulair add claritin rest of plan per H&P
[2025-01-25 18:49] LABS: Appearance Urine Clear (Clear); Bilirubin Urine Negative (Negative); Blood Urine Negative (Negative); Color Urine Yellow; Glucose Urine UA 3+ (Negative); Ketones Urine Trace (Negative); Leukocyte Esterase Urine Negative (Negative); Nitrite Urine Negative (Negative); Protein Urine 1+ (Negative); Urobilinogen Urine Negative (Negative)
[2025-01-25 19:09] LABS: Bacteria Urine None Seen (None Seen); Epithelial Cell Urine >20 /hpf (0-2); Hyaline Casts Urine 0 /lpf (None Presnt); RBC Urine 0-2 /hpf (0-2); WBC Urine 0-5 /hpf (0-5)
[2025-01-25] MEDS: METOPROLOL SUCC 25MG EXT REL TAB PO SCH (20:37)
[2025-01-25] MEDS: MONTELUKAST SODIUM 10 MG TABLET PO SCH (20:38)
[2025-01-25] MEDS: PARoxetine HCL 20 MG TAB PO SCH (20:39)
[2025-01-25] MEDS: HYDROcodone/HOMATROPINE SYRUP 5MG/1.5MG 5ML UDP PO PRN (20:39)
--- NOTE | 2025-01-25 21:43 | Electrocardiogram Report ---
Test Reason : Blood Pressure : */* mmHG Vent. Rate : 83 BPM Atrial Rate : 83 BPM P-R Int : 128 ms QRS Dur : 92 ms QT Int : 410 ms P-R-T Axes : 83 77 264 degrees QTcB Int : 481 ms Poor data quality, interpretation may be adversely affected Sinus rhythm with Premature atrial complexes Right atrial enlargement Prolonged QT Abnormal ECG When compared with ECG of 15-Jan-2025 19:57, Premature ventricular complexes are no longer Present ST now depressed in Anterior leads T wave inversion now evident in Anterior leads Confirmed by Oswaldo Avalos ([id number]) on 01/25/2025 9:42:51 PM Referred By: REFERRED SELF Confirmed By: Oswaldo Avalos
[2025-01-26 06:34] LABS: Hematocrit (blood only) 39.5 % (37.0-47.0); Mean Corpuscular Hemoglobin 31.7 pg (25.0-34.0); Mean Corpuscular Hgb Conc 32.9 g/dL (32.0-36.0); Mean Corpuscular Volume 96.3 fL (80.0-100.0); Mean Platelet Volume 10.1 fL (9.4-12.4); Platelet Count 255 K/uL (130-400); RDW Coefficient of Variation 12.9 % (11.5-14.5); RDW Standard Deviation 45.9 fL (36.4-46.3); White Blood Count 9.01 K/ul (4.8-10.8)
[2025-01-26 06:58] LABS: BUN Creatinine Ratio 22.8 (10-20); Calcium 8.6 mg/dl (8.6-10.3); Creatinine Clr Calc Pharmacy 42.6 ml/min; Magnesium 2.1 mg/dl (1.7-2.4); Phosphorus 3.3 mg/dl (2.5-4.9)
--- NOTE | 2025-01-26 08:37 | Hospitalist Progress Note ---
Date of Service January 26, 2025 Assessment & Plan (1) COPD exacerbation: Plan: 59-year-old female with past med history significant for chronic respiratory failure using oxygen 2 L, COPD, hypothyroidism, hyperlipidemia, lung nodules, history of CAD status post stent, chronic combined systolic and diastolic CHF, CKD stage III, cerebellar hemangioma, hypertension, moderate mitral regurgitation, irritable bowel syndrome with constipation, gastroparesis, sicca syndrome, diverticulosis, degenerative disease, reflux sympathetic dystrophy, depression, generalized anxiety disorder, PTSD, statin intolerance admitted for recurrent COPD exacerbation. Its noted that patient is not on full guideline therapy with lama, therefore additional agent added and will plan for wixela v trelegy upon discharge #Acute exacerbation of COPD: COPD exacerbation presenting as a complicated bronchitis, no sepsis POA. Admitting chest imaging negative for acute finding, negative for pulmonary embolism. Demonstrated severe emphysema. Respiratory BioFire negative. 01/25 Reduce steroids to IV qam hold on abx gievn recently competed course continue nebs continue laba/ics add LAMA continue singulair continue claritin #Chronic hypotension On midodrine Midodrine was increased to 10 mg 3 times daily last admit #CAD status post stent Bare-metal stents x 1 RCA 2010 On beta-lynne and aspirin and Repatha #History of right cerebellar cavernoma High risk of bleeding to avoid antiplatelet/anticoagulation as per cardiology notes #Heart failure with recovered EF Moderate mitral regurgitation EF 35 to 39% echo done on 07/28/2023 ef 60-65% on echo 09/19/24 On metoprolol succinate, Jardiance and Entresto and spironolactone Monitor for volume overload #GERD On omeprazole #Hyperlipidemia On Repatha #Hypothyroidism On Synthyroid #Depression and anxiety On Paxil and Ativan as needed DVT prophylaxis Heparin subcu Disposition Med/telemetry Full code. Admission and Anticipated Discharge Date Admission Date: January 25, 2025 Subjective patient feels improved and notices significant improvement still weak, but overall breathing much better with fewer wheezing Physical Exam Constitutional: WD/WN, vitals as above Respiratory: bilateral expiratory wheezes but improved aeration compared to day prior Cardiovascular: RRR, no murmur, no edema Results & Data Results & Data Vital Signs (Past 12 Hours) Vital Signs Temp Pulse Pulse Resp BP Pulse Ox O2 Del Method 01/26/25 08:27 Nasal Cannula 01/26/25 07:48 36.4 C L 65 20 104/70 98 Nasal Cannula 01/26/25 07:25 54 L 01/26/25 07:02 68 17 99 Nasal Cannula 01/26/25 02:43 36.7 C 70 18 99/66 L 100 Nasal Cannula 01/25/25 22:51 62 01/25/25 22:32 36.4 C L 64 18 91/60 L 98 Nasal Cannula O2 Flow Rate 01/26/25 08:27 2 01/26/25 07:48 2 01/26/25 07:25 01/26/25 07:02 1.5 01/26/25 02:43 2 01/25/25 22:51 01/25/25 22:32 2 Laboratory Results Short CBC 01/26/25 Range/Units 05:26 WBC 9.01 (4.8-10.8) K/ul Hgb 13.0 (12.0-16.0) g/dl Hct 39.5 (37.0-47.0) % Plt Count 255 (130-400) K/uL BMP 01/26/25 05:26 Sodium 139 Potassium 4.0 Chloride 106 Carbon Dioxide 29 BUN 28 H Creatinine 1.23 H Glucose 159 H Calcium 8.6 Urine 01/25/25 Range/Units 18:37 Urine Color Yellow Urine Appearance Clear (Clear) Urine pH 6.0 (4.5-7.5) Ur Specific [place] 1.020 (1.000-1.030) Urine Protein 1+ H (Negative) Urine Glucose (UA) 3+ H (Negative) Medications Administered Home Medications Medication Instructions Recorded Confirmed Last Taken albuterol sulfate 90 mcg/actuation 2 puff inhalation Q4H PRN 11/11/24 01/24/25 Unknown aerosol inhaler Shortness Of Breath Or Wheezing aspirin 81 mg tablet,delayed 81 mg PO DAILY 11/11/24 01/24/25 Unknown release empagliflozin 10 mg tablet 10 mg PO DAILY 11/11/24 01/24/25 Unknown (Jardiance) evolocumab 140 mg/mL subcutaneous 140 mg subcut UD 11/11/24 01/24/25 Unknown pen injector (Reyes Muro) fluticasone 250 mcg-salmeterol 50 1 inh inhalation [facility] 11/11/24 01/24/25 Unknown mcg/dose blistr powdr for inhalation folic acid 1 mg tablet 1 mg PO QAM 11/11/24 01/24/25 Unknown ipratropium 0.5 mg-albuterol 3 mg 3 ml inhalation QID PRN Shortness 11/11/24 01/24/25 Unknown (2.5 mg base)/3 mL nebulization Of Breath Or Wheezing soln lorazepam 0.5 mg tablet 0.5 mg PO DAILY PRN Anxiety 11/11/24 01/24/25 Unknown methocarbamol 500 mg tablet 500 mg PO QID PRN muscle spasms 11/11/24 01/24/25 Unknown metoprolol succinate 50 mg 50 mg PO UD 11/11/24 01/24/25 Unknown tablet,extended release 24 hr omeprazole 20 mg capsule,delayed 20 mg PO [facility] 11/11/24 01/24/25 Unknown release ondansetron HCl 4 mg tablet 4 mg PO TID PRN Nausea And Vomiting 11/11/24 01/24/25 Unknown oxycodone 5 mg tablet 5 mg PO Q4H PRN Pain, Severe 11/11/24 01/24/25 Unknown paroxetine HCl 40 mg tablet 40 mg PO HS 11/11/24 01/24/25 Unknown pregabalin 75 mg capsule 75 mg PO TID 11/11/24 01/24/25 Unknown sacubitril 24 mg-valsartan 26 mg 1 tab PO [facility] 11/11/24 01/24/25 Unknown tablet (Entresto) levothyroxine 75 mcg tablet 75 mcg PO DAILYBB 01/15/25 01/24/25 Unknown (Synthroid) prednisone 5 mg tablet 5 mg PO QA 01/15/25 01/24/25 Unknown spironolactone 25 mg tablet 12.5 mg PO QA 01/15/25 01/24/25 Unknown midodrine 5 mg tablet 10 mg (2 x 5 mg) PO TID 30 days 01/19/25 01/24/25 Unknown #180 tabs Active Medications Generic Name Dose Route Start Last Admin Trade Name Freq PRN Reason Stop Dose Admin Albuterol 3 ml 01/25/25 07:00 01/26/25 07:01 Albut/Ipratrop 3mg/0.5mg Neb 3 Ml Vial NEB 02/24/25 06:59 3 ml QIDR JUDITH Administration Protocol Aspirin 81 mg 01/25/25 09:00 01/25/25 08:54 Aspirin 81 Mg Ectab PO 02/24/25 08:59 81 mg DAILY JUDITH Administration Empagliflozin 10 mg 01/25/25 09:00 01/26/25 08:32 Empagliflozin 10 Mg Tab PO 02/24/25 08:59 10 mg DAILY JUDITH Administration Fluticasone/Vilanterol 1 puffs 01/25/25 09:00 01/25/25 09:00 Fluticasone/Vilanterol 100/25mcg 14 Puffs/Inhaler INH 02/24/25 08:59 1 puffs DAILY JUDITH Administration Folic Acid 1 mg 01/25/25 09:00 01/26/25 08:32 Folic Acid 1 Mg Tab PO 02/24/25 08:59 1 mg QAM JUDITH Administration Heparin Sodium (Porcine) 5,000 units 01/25/25 06:00 01/26/25 05:28 Heparin Sod 5,000 Unit/0.5 Ml Vial SQ 02/24/25 05:59 5,000 units Q8 JUDITH Administration Hydrocodone Bit/Homatropine Methylb 5 ml 01/25/25 13:42 01/25/25 20:39 Hydrocodone/Homatropine Syrup 5mg/1.5mg 5ml Udp PO 02/08/25 13:41 5 ml Q6H PRN Administration Cough Levothyroxine Sodium 75 mcg 01/25/25 06:30 01/26/25 05:28 Levothyroxine Sodium 75 Mcg Tablet PO 02/24/25 06:29 75 mcg DAILYBB JUDITH Administration Loratadine 10 mg 01/25/25 09:00 01/26/25 08:36 Loratadine 10 Mg Tab PO 02/24/25 08:59 Not Given QAM JUDITH Metoprolol Succinate 50 mg 01/25/25 09:00 01/26/25 08:31 Metoprolol Succ 50mg Ext Rel Tab PO 02/24/25 08:59 50 mg QAM JUDITH Administration Metoprolol Succinate 25 mg 01/25/25 21:00 01/25/25 20:37 Metoprolol Succ 25mg Ext Rel Tab PO 02/24/25 20:59 Not Given HS JUDITH Midodrine 10 mg 01/25/25 09:00 01/26/25 08:31 Midodrine Hcl 10 Mg Tab PO 02/24/25 08:59 10 mg TID JUDITH Administration Montelukast Sodium 10 mg 01/25/25 21:00 01/25/25 20:38 Montelukast Sodium 10 Mg Tablet PO 02/24/25 20:59 10 mg HS JUDITH Administration Pantoprazole Sodium 40 mg 01/25/25 09:00 01/26/25 08:31 Pantoprazole 40 Mg Tab PO 02/24/25 08:59 40 mg BID JUDITH Administration Paroxetine HCl 40 mg 01/25/25 21:00 01/25/25 20:39 Paroxetine Hcl 20 Mg Tab PO 02/24/25 20:59 40 mg HS JUDITH Administration Pregabalin 75 mg 01/25/25 09:00 01/26/25 08:32 Pregabalin 75 Mg Cap PO 02/24/25 08:59 75 mg TID JUDITH Administration Sacubitril/Valsartan 1 tab 01/25/25 09:00 01/26/25 08:31 Valsartan/Sacubitril 26/24mg Tab PO 02/24/25 08:59 1 tab AMHS JUDITH Administration Spironolactone 12.5 mg 01/25/25 09:00 01/26/25 08:30 Spironolactone 12.5 Mg Tab PO 02/24/25 08:59 12.5 mg QAM JUDITH Administration Umeclidinium [place] 1 puffs 01/25/25 09:00 01/25/25 09:44 Umeclidinium [place] 62.5mcg/Blister 7 Puffs/Inhaler INH 02/24/25 08:59 1 puffs DAILY JUDITH Administration Protocol
[2025-01-26] MEDS: methylPREDNISolone 40 MG in SYRINGE 0 ML IV SCH (09:06)
--- NOTE | 2025-01-26 12:59 | Electrocardiogram Report ---
Test Reason : Blood Pressure : */* mmHG Vent. Rate : 67 BPM Atrial Rate : 67 BPM P-R Int : 128 ms QRS Dur : 102 ms QT Int : 528 ms P-R-T Axes : 84 81 215 degrees QTcB Int : 557 ms Sinus rhythm with marked sinus arrhythmia Persistent global T wave inversions (first noted on 01/15/25 ECG) Prolonged QT Abnormal ECG When compared with ECG of 24-Jan-2025 19:20, HR has decreased by 16 bpm Otherwise no significant change Confirmed by Raul Godfrey [id number] on 01/26/2025 12:59:12 PM Referred By: REFERRED SELF Confirmed By: Raul Godfrey
--- NOTE | 2025-01-27 18:00 | Hospitalist Progress Note ---
Date of Service January 27, 2025 Assessment & Plan (1) COPD exacerbation: Plan: 59-year-old female with past med history significant for chronic respiratory failure using oxygen 2 L, COPD, hypothyroidism, hyperlipidemia, lung nodules, history of CAD status post stent, chronic combined systolic and diastolic CHF, CKD stage III, cerebellar hemangioma, hypertension, moderate mitral regurgitation, irritable bowel syndrome with constipation, gastroparesis, sicca syndrome, diverticulosis, degenerative disease, reflux sympathetic dystrophy, depression, generalized anxiety disorder, PTSD, statin intolerance admitted for recurrent COPD exacerbation. #Acute exacerbation of COPD: Underlying advanced COPD COPD exacerbation presenting as a complicated bronchitis, no sepsis POA. Admitting chest imaging negative for acute finding, negative for pulmonary embolism. Demonstrated severe emphysema. Respiratory BioFire negative. 01/25 Reduce steroids to IV qa/6, continue hold on abx gievn recently competed course continue nebs continue laba/ics add LAMA 01/25 continue singulair continue claritin Patient reports not much improvement, has bilateral wheezing today, consider pulmonology consult given advanced COPD in exacerbation, recurrent admission #Chronic hypotension On midodrine Midodrine was increased to 10 mg 3 times daily last admit #CAD status post stent Bare-metal stents x 1 RCA 2010 On beta-lynne and aspirin and Repatha #History of right cerebellar cavernoma High risk of bleeding to avoid antiplatelet/anticoagulation as per cardiology notes #Heart failure with recovered EF Moderate mitral regurgitation EF 35 to 39% echo done on 07/28/2023 ef 60-65% on echo 09/19/24 On metoprolol succinate, Jardiance and Entresto and spironolactone Monitor for volume overload #GERD On omeprazole #Hyperlipidemia On Repatha #Hypothyroidism On Synthyroid #Depression and anxiety On Paxil and Ativan as needed DVT prophylaxis Heparin subcu Disposition Med/telemetry Full code. Admission and Anticipated Discharge Date Admission Date: January 25, 2025 Subjective Patient was seen and examined at bedside. Patient was lying in bed, on 2 L oxygen via nasal cannula. Patient does not feel improved and reports difficulty breathing with minimal activity. Patient feels weak, reports eating okay and moving bowels okay. Physical Exam Physical Exam: General- Not in distress Head- atraumatic Eyes- PERRL. ENT- oropharynx clear Neck- supple, no JVD. Lungs- b/l wheezing, Bilateral crackles Heart- regular rhythm; no murmur, no gallop. Abdomen- normal bowel sounds, soft, nontender, no distension Extremities- no pretibial edema, no erythema seen Neuro- alert, oriented PERRL, no facial palsy; no dysarthria; moves extremities Results & Data Results & Data Vital Signs (Past 12 Hours) Vital Signs Temp Pulse Pulse Resp BP Pulse Ox O2 Del Method 01/27/25 16:55 36.5 C 75 16 95/65 L 98 Nasal Cannula 01/27/25 15:04 73 16 97 Nasal Cannula 01/27/25 14:48 72 18 92/66 L 97 Nasal Cannula 01/27/25 13:54 72 01/27/25 11:12 36.5 C 58 L 18 101/66 97 Nasal Cannula 01/27/25 10:59 68 16 97 Nasal Cannula 01/27/25 09:15 Nasal Cannula 01/27/25 07:28 66 01/27/25 07:25 36.5 C 67 18 96/68 L 98 Nasal Cannula 01/27/25 07:16 72 14 99 Nasal Cannula O2 Flow Rate 01/27/25 16:55 1 01/27/25 15:04 1 01/27/25 14:48 2 01/27/25 13:54 01/27/25 11:12 2 01/27/25 10:59 1 01/27/25 09:15 2 01/27/25 07:28 01/27/25 07:25 2 01/27/25 07:16 2.5
--- NOTE | 2025-01-28 07:43 | Pulmonary Consultation ---
Date of Consultation January 28, 2025 Assessment & Plan (1) COPD exacerbation: (2) Hypoxemic respiratory failure, chronic: Plan Impression: 59-year-old female with end-stage emphysema. She just recently stopped smoking. She has had frequent exacerbations resulting in hospitalization. She is having a slow clinical response currently but her oxygen requirement appears to be close to her baseline. Recommendations: 1. End-stage COPD: Discontinue inhalers and place her on nebulized budesonide and Perforomist to see if this offers her a benefit. Continue Incruse. Transition steroids from parenteral to oral dexamethasone given her reported issues with prednisone in the outpatient setting. Will place her on Mucinex as well. She qualifies for antimicrobial therapy given the severity of her exacerbation so we will place on azithromycin. Chronic azithromycin therapy in the outpatient setting could be a consideration. Given her frequent exacerbations, other medication such as theophylline, Daliresp, or chronic prednisone therapy might be considered but will be deferred to her outpatient pulmonary team at [facility]. 2. Chronic hypoxemic respiratory failure: The patient appears to be at her Wiley To currently. Continue oxygen and titrate to keep saturations at or above 88%. 3. Patient's prior blood gas does not demonstrate hypercarbia and AVAPS is not warranted currently. 4. Outpatient pulmonary rehab would be a recommendation. 5. Due to the patient's ongoing tobacco exposure, she is not a candidate for lung transplant. This can be reassessed if she remains free of tobacco products in the outpatient setting. Given the diffuse nature of her emphysema, she is not a candidate for bronchoscopic lung volume reduction. 6. Recommend the patient get out of bed is much as possible and ambulate in the room and in the hallways. Unfortunately the patient's lung disease is end-stage. Not sure she has good clinical insight into the severity of her disease. Given the frequent admissions, palliative care consultation may be reasonable to define goals of therapy. Will continue to follow with you to assess response to therapy. Free to contact us with questions or concerns History of Present Illness Attending Physician: Rebecca Barrera MD History of Present Illness Asked by hospitalist to assist in evaluation management this patient with end- stage COPD admitted with an exacerbation. History is obtained from discussion with the patient and review of electronic medical record. The patient is a 59-year-old female who just quit smoking about 2 months ago. She is followed by [facility] pulmonology in the outpatient setting. She is oxygen dependent at baseline anywhere between 1 and 3 L/min. Her outpatient regimen consists of Trelegy. She has been hospitalized about once a month for an acute exacerbation and most recent hospitalization was on 01/25/2025 where she presented to the emergency room after being discharged a week earlier with complaints of shortness of breath and cough. She was not given antibiotics but was treated with steroids. Her outpatient inhalers were continued. Pulmonary was consulted today due to lack of clinical improvement. The patient reports a little bit of cough with some green phlegm. Her x-ray has not demonstrated an infiltrate. She has not been febrile. She denies chest pain or palpitations. No swallowing dysfunction or aspiration events. No sinus complaints. Allergies Allergy/AdvReac Type Severity Reaction Status Date / Time tramadol Allergy Severe Seizure Verified 10/13/24 00:02 adhesive Allergy Mild BANDAIDS : Verified 10/13/24 00:02 SKIN ABRASION ketorolac [From Toradol] Allergy Mild HX KIDNEY Verified 10/13/24 00:02 FAILURE adhesive tape Allergy Unknown SKIN TEARS Verified 10/13/24 00:02 ibuprofen Allergy Unknown HX KIDNEY Verified 10/13/24 00:02 FAILURE NSAIDS (Non-Steroidal Allergy Unknown HX KIDNEY Verified 10/13/24 00:02 Anti-Inflamma FAILURE Sulfa (Sulfonamide Allergy Unknown HIVES Verified 10/13/24 00:02 Antibiotics) meperidine AdvReac Unknown NOT A Verified 10/13/24 00:02 VERIFIED RXN: MOOD SWINGS prednisone AdvReac Unknown Patient Verified 10/13/24 00:02 Reports Contraindication in Kidney Failure/SEE NOTES rosuvastatin [From Crestor] AdvReac Unknown Weakness, Verified 10/13/24 00:02 RHABDOMYLOSIS, ACUTE RENAL FAILURE Home Medications Medication Instructions Recorded Confirmed Type albuterol sulfate 90 mcg/actuation 2 puff inhalation Q4H PRN 11/11/24 01/24/25 History aerosol inhaler Shortness Of Breath Or Wheezing aspirin 81 mg tablet,delayed 81 mg PO DAILY 11/11/24 01/24/25 History release empagliflozin 10 mg tablet 10 mg PO DAILY 11/11/24 01/24/25 History (Jardiance) evolocumab 140 mg/mL subcutaneous 140 mg subcut UD 11/11/24 01/24/25 History pen injector (Repatha SureClick) fluticasone 250 mcg-salmeterol 50 1 inh inhalation AMHS 11/11/24 01/24/25 History mcg/dose blistr powdr for inhalation folic acid 1 mg tablet 1 mg PO QAM 11/11/24 01/24/25 History ipratropium 0.5 mg-albuterol 3 mg 3 ml inhalation QID PRN Shortness 11/11/24 01/24/25 History (2.5 mg base)/3 mL nebulization Of Breath Or Wheezing soln lorazepam 0.5 mg tablet 0.5 mg PO DAILY PRN Anxiety 11/11/24 01/24/25 History methocarbamol 500 mg tablet 500 mg PO QID PRN muscle spasms 11/11/24 01/24/25 History metoprolol succinate 50 mg 50 mg PO UD 11/11/24 01/24/25 History tablet,extended release 24 hr omeprazole 20 mg capsule,delayed 20 mg PO AMHS 11/11/24 01/24/25 History release ondansetron HCl 4 mg tablet 4 mg PO TID PRN Nausea And Vomiting 11/11/24 01/24/25 History oxycodone 5 mg tablet 5 mg PO Q4H PRN Pain, Severe 11/11/24 01/24/25 History paroxetine HCl 40 mg tablet 40 mg PO HS 11/11/24 01/24/25 History pregabalin 75 mg capsule 75 mg PO TID 11/11/24 01/24/25 History sacubitril 24 mg-valsartan 26 mg 1 tab PO AMHS 11/11/24 01/24/25 History tablet (Entresto) levothyroxine 75 mcg tablet 75 mcg PO DAILYBB 01/15/25 01/24/25 History (Synthroid) prednisone 5 mg tablet 5 mg PO QAM 01/15/25 01/24/25 History spironolactone 25 mg tablet 12.5 mg PO QAM 01/15/25 01/24/25 History midodrine 5 mg tablet 10 mg (2 x 5 mg) PO TID 30 days 01/19/25 01/24/25 Rx #180 tabs Patient History Medical History Emphysema/COPD daily nebulizer, and prn neb and inh; f/u pulmonology at [facility] and [place] 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 History of colitis Decreased mobility lt arm>CRPS PTSD (post-traumatic stress disorder) Unique anesthetic considerations on preoperative anesthesia assessment high level anxiety when sedated, hx intubation w Flu A....PTSD, "gets scared when put to sleep" History of colon polyps Low blood pressure currently on midodrine; f/u [facility] cardio at and [place] History of influenza INFLUENZA A, February 2022 - [facility] hospitalization, "intubated while in the hospital" Pain syndrome, chronic chronic regional pain syndrome : left arm/received lidocaine injections in [place]/every three months/due may 2023. left limb restriction. History of renal failure "from her crestor medication" Oxygen dependent 2 L o2 continuous. Emphysema lung Statin intolerance Chronic pain see pain clinic for lt arm and neck, @[facility] Anxiety Shortness of breath chronic Neurofibromatosis Hypokalemia HX / CAN NOT TOLERATE PO POTASSIUM PILLS DUE TO GASTROPARESIS Hx of bronchitis Myocardial infarction 2010 - CHEST PAIN -[facility] ER AND HAD HEART CATH WITH ONE STENT (BARE METAL) FOLLOW WITH [facility] Seizure 2013 ONLY HAD ONE -- ADMITTED TO [facility] --- METABOLIC RELATED ---- NO MEDICATION Pneumothorax AGE 24 - SURGERY TO REPAIR THE LEFT SIDE AND CHEMICAL TREATMENT ON THE RIGHT SIDE AT [place] Gastroparesis Cavernous hemangioma of brain stable Surgical History Hx of right cataract extraction History of heart artery stent 2010, [facility], x1 stent; f/u [facility] cardio at History of endoscopy Hx of colonoscopy Hx of vaginal surgery 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 Hx of section X2 Hx of cardiac cath 2010, [facility], x1 stent; f/u [facility] cardio at History of hernia repair UMBILICAL Family History Father Lung disease Severe emphysema, pneumothorax Brother Family history of diabetes mellitus Brother Family history of diabetes mellitus Family/Other Family history of cancer Aunt Family history of colonic polyps Grandfather Family history of lymphoma Social History Smoking Status: Former smoker Tobacco Type: Cigarettes Age Started Using Tobacco: 11; Age Quit Using Tobacco: 53; packs per day: 1; Cigarettes Per Day: has 1 occasionally; Second Hand Exposure: Yes; Do You Dip or Chew Tobacco: No; Hx Alcohol Use: No Hx Substance Use: Yes Last Used Substance: Days (ago) Last Used Substance Other:: daily-"just a few hits a day" Preferred Language: Albanian Communication Ability: Effective 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 No additions or deletions Physical Exam Constitutional: WD/WN, vitals as above average body habitus; no acute distress Neck: trachea midline, no thyromegaly normal visual inspection Respiratory: normal respiratory effort; no respiratory distress Auscultation: + diminished lung sounds and + rhonchi Cardiovascular: Rate/Rhythm: regular rate and regular rhythm Heart Sounds: normal S1 and normal S2; no murmur Vessels: no JVD Extremities: no edema Gastrointestinal (Abdomen): normal bowel sounds, soft, nontender, no hepatosplenomegaly Psychiatric: A+Ox3, euthymic affect Results & Data Results & Data Vital Signs (Past 12 Hours) Vital Signs Temp Pulse Pulse Resp BP Pulse Ox O2 Del Method 01/28/25 07:32 36.7 C 68 19 99/68 L 96 Nasal Cannula 01/28/25 06:58 82 18 97 Nasal Cannula 01/28/25 03:12 36.6 C 78 20 109/72 95 Nasal Cannula 01/28/25 01:02 Nasal Cannula 01/27/25 23:31 36.6 C 65 20 103/68 94 Nasal Cannula 01/27/25 23:00 78 01/27/25 20:00 36.6 C 62 20 105/69 93 Nasal Cannula O2 Flow Rate 01/28/25 07:32 1 01/28/25 06:58 1 01/28/25 03:12 1 01/28/25 01:02 2 01/27/25 23:31 1 01/27/25 23:00 01/27/25 20:00 1 Critical Care Results & Data Vital Signs (Past 12 Hours) Vital Signs Temp Pulse Pulse Resp BP Pulse Ox O2 Del Method 01/28/25 07:41 66 01/28/25 07:32 36.7 C 68 19 99/68 L 96 Nasal Cannula 01/28/25 06:58 82 18 97 Nasal Cannula 01/28/25 03:12 36.6 C 78 20 109/72 95 Nasal Cannula 01/28/25 01:02 Nasal Cannula 01/27/25 23:31 36.6 C 65 20 103/68 94 Nasal Cannula 01/27/25 23:00 78 01/27/25 20:00 36.6 C 62 20 105/69 93 Nasal Cannula O2 Flow Rate 01/28/25 07:41 01/28/25 07:32 1 01/28/25 06:58 1 01/28/25 03:12 1 01/28/25 01:02 2 01/27/25 23:31 1 01/27/25 23:00 01/27/25 20:00 1 Lab & Micro Results (Past 24 Hours) No Data to Display No Data to Display No Data to Display I & O Totals 24 Hours 01/27/25 01/28/25 01/29/25 06:59 06:59 07:59 Intake Total 480 / 480 1020 / 1020 Balance 480 / 480 1020 / 1020 Cumulative 01/24/25 18:45 thru 01/28/25 06:39 Intake Total 2100 Output Total 150 Balance 1950 RT Ventilator Mngmt (Last Documented) Ventilator Ordered Settings Respiratory Rate 19 01/28/25 07:32 Ventilator - PT Measurements Respiratory Rate 19 PG Care Time/CCT Total # of Minutes Spent Total Time Spent with Patient: Total time spent is greater than 50% in coordination of care (as documented) at patient's floor/unit and/or counseling patient: Coding Level of Care Code 79550 INT INP/OBS CARE 3/75MIN Diagnoses COPD exacerbation J44.1 Hypoxemic respiratory failure, chronic J96.11
[2025-01-28 08:51] LABS: Hematocrit (blood only) 43.8 % (37.0-47.0); Hemoglobin 14.1 g/dl (12.0-16.0); Mean Corpuscular Hemoglobin 31.8 pg (25.0-34.0); Mean Corpuscular Hgb Conc 32.2 g/dL (32.0-36.0); Mean Corpuscular Volume 98.6 fL (80.0-100.0); Mean Platelet Volume 10.3 fL (9.4-12.4); Platelet Count 248 K/uL (130-400); RDW Coefficient of Variation 13.2 % (11.5-14.5); RDW Standard Deviation 47.4 fL (36.4-46.3); Red Blood Count 4.44 M/uL (4.20-5.40)
[2025-01-28] MEDS: AZITHROMYCIN 250 MG TAB PO SCH (08:56)
[2025-01-28 09:05] LABS: BUN Creatinine Ratio 19.4 (10-20); Calcium 8.7 mg/dl (8.6-10.3); Creatinine Clr Calc Pharmacy 32.6 ml/min
[2025-01-28] MEDS: dexAMETHasone 4 MG TAB PO SCH (09:06)
[2025-01-28] MEDS: guaiFENesin 600 MG TABCR PO SCH (09:07)
--- NOTE | 2025-01-28 13:43 | Hospitalist Progress Note ---
Date of Service January 28, 2025 Assessment & Plan (1) COPD exacerbation: Plan: 59-year-old female with past med history significant for chronic respiratory failure using oxygen 2 L, COPD, hypothyroidism, hyperlipidemia, lung nodules, history of CAD status post stent, chronic combined systolic and diastolic CHF, CKD stage III, cerebellar hemangioma, hypertension, moderate mitral regurgitation, irritable bowel syndrome with constipation, gastroparesis, sicca syndrome, diverticulosis, degenerative disease, reflux sympathetic dystrophy, depression, generalized anxiety disorder, PTSD, statin intolerance admitted for recurrent COPD exacerbation. #Acute exacerbation of COPD: Underlying advanced COPD COPD exacerbation presenting as a complicated bronchitis, no sepsis POA. Admitting chest imaging negative for acute finding, negative for pulmonary embolism. Demonstrated severe emphysema. Respiratory BioFire negative. 01/25 continue nebs audra and prn. continue laba/ics add LAMA 01/25 continue singulair continue claritin Pulm evaled, recs are - neb budesonide, neb perforomist, c/w incruse, po dexa, azithro, OP pulm rehab, palliative care eval. Pt to f/u w/ pulm and pulm rehab on dc. Pt agreeable to Palliative discussion, consult placed. PT/OT. #Chronic hypotension On midodrine Midodrine was increased to 10 mg 3 times daily last admit #CAD status post stent Bare-metal stents x 1 RCA 2010 On beta-lynne and aspirin and Repatha #History of right cerebellar cavernoma High risk of bleeding to avoid antiplatelet/anticoagulation as per cardiology notes #Heart failure with recovered EF Moderate mitral regurgitation EF 35 to 39% echo done on 07/28/2023 ef 60-65% on echo 09/19/24 On metoprolol succinate, Jardiance and Entresto and spironolactone Monitor for volume overload #GERD On omeprazole #Hyperlipidemia On Repatha #Hypothyroidism On Synthyroid #Depression and anxiety On Paxil and Ativan as needed DVT prophylaxis Heparin subcu Disposition Med/telemetry Full code. Admission and Anticipated Discharge Date Admission Date: January 25, 2025 Subjective Patient was seen and examined at bedside. Patient was lying in bed, on 1 L oxygen via nasal cannula. Patient feels little improved and reports difficulty breathing with minimal activity. Patient feels weak and not much moving around, will get pt/ot, reports eating okay and moving bowels okay. Physical Exam Physical Exam: General- Not in distress Head- atraumatic Eyes- PERRL. ENT- oropharynx clear Neck- supple, no JVD. Lungs- no wheezing, b/l decreased breath sounds. Heart- regular rhythm; no murmur, no gallop. Abdomen- normal bowel sounds, soft, nontender, no distension Extremities- no pretibial edema, no erythema seen Neuro- alert, oriented PERRL, no facial palsy; no dysarthria; moves extremities Results & Data Results & Data Vital Signs (Past 12 Hours) Vital Signs Temp Pulse Pulse Resp BP Pulse Ox O2 Del Method 01/28/25 12:04 36.9 C 85 19 109/72 97 Nasal Cannula 01/28/25 10:00 Nasal Cannula 01/28/25 09:00 74 106/75 96 Nasal Cannula 01/28/25 07:41 66 01/28/25 07:32 36.7 C 68 19 99/68 L 96 Nasal Cannula 01/28/25 06:58 82 18 97 Nasal Cannula 01/28/25 03:12 36.6 C 78 20 109/72 95 Nasal Cannula O2 Flow Rate 01/28/25 12:04 1 01/28/25 10:00 1 01/28/25 09:00 1 01/28/25 07:41 01/28/25 07:32 1 01/28/25 06:58 1 01/28/25 03:12 1
[2025-01-28] MEDS: BUDESONIDE 0.5 MG/2 ML VIAL (PULMICORT) NEB SCH (19:42)
[2025-01-28] MEDS: FORMOTEROL 20 MCG/2 ML VIAL NEB SCH (19:42)
[2025-01-28] MEDS: ALBUT/IPRATROP 3MG/0.5MG NEB 3 ML VIAL NEB PRN (23:05)
[2025-01-28] MEDS: LORazepam 0.5 MG TAB PO PRN (23:33)
[2025-01-28] MEDS ORDERED: BENZONATATE 100 MG CAPSULE PO PRN (23:37)
[2025-01-28] MEDS: BENZONATATE 100 MG CAPSULE PO ONE (23:43)
--- NOTE | 2025-01-29 01:16 | XRay Report ---
EXAM: XR chest 1V portable CLINICAL HISTORY: Wheeze. TECHNIQUE: An X-ray image of the chest is obtained in AP projection. COMPARISON: 01/24/2025. FINDINGS: Pulmonary Parenchyma: Hyperinflated hyperlucent lungs with coarse interstitial linings and fibrotic bands. A nodular shadow in left lung upper zone to be correlated with CT dated 10/13/2024 (stable). No evidence of consolidation, collapse. No evidence of pleural effusion. Bilateral apical pleural thickening. Heart and Mediastinum: Heart size and shape are normal. No mediastinal widening or masses. No hilar or mediastinal lymphadenopathy. Bony Thorax: Bony thorax appears intact without fractures or deformities. Soft Tissues: Soft tissues overlying the chest wall are unremarkable. Surgical steeples the left apical region IMPRESSION: 1. Bilateral emphysematous/COPD changes with fibrosis (stable). 2. Compared to the previous no interval change is seen. Electronically signed by Chris Amaral 01-29-2025 01:15 AM
[2025-01-29 08:02] LABS: Hematocrit (blood only) 41.7 % (37.0-47.0); Hemoglobin 13.5 g/dl (12.0-16.0); Mean Corpuscular Hemoglobin 31.6 pg (25.0-34.0); Mean Corpuscular Hgb Conc 32.4 g/dL (32.0-36.0); Mean Corpuscular Volume 97.7 fL (80.0-100.0); Mean Platelet Volume 10.5 fL (9.4-12.4); Platelet Count 242 K/uL (130-400); RDW Coefficient of Variation 13.2 % (11.5-14.5); RDW Standard Deviation 47.9 fL (36.4-46.3); Red Blood Count 4.27 M/uL (4.20-5.40); White Blood Count 11.19 K/ul (4.8-10.8)
[2025-01-29 08:09] LABS: BUN Creatinine Ratio 24.1 (10-20); Calcium 8.5 mg/dl (8.6-10.3); Creatinine Clr Calc Pharmacy 46.4 ml/min; Magnesium 2.1 mg/dl (1.7-2.4)
--- NOTE | 2025-01-29 10:44 | Pulmonology Progress Note ---
Date of Service January 29, 2025 Assessment & Plan (1) COPD exacerbation: (2) Hypoxemic respiratory failure, chronic: Plan Impression: 59-year-old female with end-stage emphysema. She just recently stopped smoking. She has had frequent exacerbations resulting in hospitalization. She is having a slow clinical response currently but her oxygen requirement appears to be close to her baseline. Recommendations: 1. End-stage COPD: Continue nebulized budesonide and Perforomist. Continue Incruse. Complete course of oral dexamethasone given her reported issues with prednisone in the outpatient setting. Continue Mucinex as well. Complete 5-day course of azithromycin. Chronic azithromycin therapy in the outpatient setting could be a consideration. Given her frequent exacerbations, other medication such as theophylline, Daliresp, or chronic prednisone therapy might be considered but will be deferred to her outpatient pulmonary team at [facility]. 2. Chronic hypoxemic respiratory failure: The patient appears to be at her pulmonary baseline currently. Continue oxygen and titrate to keep saturations at or above 88%. 3. Patient's prior blood gas does not demonstrate hypercarbia and AVAPS is not warranted currently. 4. Outpatient pulmonary rehab would be a recommendation. 5. Due to the patient's ongoing tobacco exposure, she is not a candidate for lung transplant. This can be reassessed if she remains free of tobacco products in the outpatient setting. Given the diffuse nature of her emphysema, she is not a candidate for bronchoscopic lung volume reduction. 6. Recommend the patient get out of bed is much as possible and ambulate in the room and in the hallways. Patient appears to be recovering and approaching her baseline. Pulmonary will sign off. Feel free to contact us with questions or concerns. She can follow- up with her outpatient [facility] pulmonary group Admission and Anticipated Discharge Date Admission Date: January 25, 2025 Subjective Patient seen and examined. EMR reviewed. The patient reports that she slept poorly last night largely due to cough. She is better this morning. She overall feels that she is improved. She thinks she may be going home in the next day or 2. Review of Systems 2 Review of Systems: All systems reviewed & are unremarkable except as noted in Subjective Physical Exam 2 Constitutional: WD/WN, vitals as above average body habitus; no acute distress Neck: trachea midline, no thyromegaly normal visual inspection Respiratory: normal respiratory effort; no respiratory distress A uscultation: + diminished lung sounds; no rhonchi and no wheezes Cardiovascular: Rate/Rhythm: regular rate and regular rhythm Heart Sounds: normal S1 and normal S2; no murmur Vessels: no JVD Extremities: no edema Gastrointestinal (Abdomen): normal bowel sounds, soft, nontender, no hepatosplenomegaly Psychiatric: A+Ox3, euthymic affect Results & Data Results & Data Vital Signs (Past 12 Hours) Vital Signs Temp Pulse Pulse Resp BP Pulse Ox O2 Del Method 01/29/25 08:26 70 01/29/25 08:25 36.5 C 73 18 109/75 98 Room Air 01/29/25 08:06 Nasal Cannula 01/29/25 07:15 72 18 99 Nasal Cannula 01/29/25 05:37 36.8 C 71 20 107/72 98 Nasal Cannula 01/28/25 23:54 73 01/28/25 23:52 36.4 C L 84 20 112/71 96 Nasal Cannula 01/28/25 23:05 79 18 96 Nasal Cannula 01/28/25 21:58 Nasal Cannula O2 Flow Rate 01/29/25 08:26 01/29/25 08:25 01/29/25 08:06 1 01/29/25 07:15 1 01/29/25 05:37 2 01/28/25 23:54 01/28/25 23:52 2 01/28/25 23:05 1 01/28/25 21:58 1 Laboratory Results 01/29/25 07:13 01/29/25 07:13 Diagnostic Findings No new imaging PG Care Time/CCT Total # of Minutes Spent Total Time Spent with Patient: Total time spent is greater than 50% in coordination of care (as documented) at patient's floor/unit and/or counseling patient: Coding Level of Care Code 89474 SUB INP/OBS CARE 2/35MIN Diagnoses COPD exacerbation J44.1 Hypoxemic respiratory failure, chronic J96.11
--- NOTE | 2025-01-29 12:23 | Hospitalist Progress Note ---
Date of Service January 29, 2025 Assessment & Plan (1) COPD exacerbation: Plan: 59-year-old female with past med history significant for chronic respiratory failure using oxygen 2 L, COPD, hypothyroidism, hyperlipidemia, lung nodules, history of CAD status post stent, chronic combined systolic and diastolic CHF, CKD stage III, cerebellar hemangioma, hypertension, moderate mitral regurgitation, irritable bowel syndrome with constipation, gastroparesis, sicca syndrome, diverticulosis, degenerative disease, reflux sympathetic dystrophy, depression, generalized anxiety disorder, PTSD, statin intolerance admitted for recurrent COPD exacerbation. #Acute exacerbation of COPD: Underlying advanced COPD COPD exacerbation presenting as a complicated bronchitis, no sepsis POA. Admitting chest imaging negative for acute finding, negative for pulmonary embolism. Demonstrated severe emphysema. Respiratory BioFire negative. 01/25 continue nebs audra and prn. continue laba/ics add LAMA 01/25 continue singulair continue claritin Pulm evaled, recs are - neb budesonide, neb perforomist, c/w incruse, po dexa, azithro, OP pulm rehab, palliative care eval. Pt to f/u w/ pulm and pulm rehab on dc. PFT In 6-8 weeks. Pt agreeable to Palliative discussion, consult placed. PT/OT. Pt advised for ambulation to assess improvement. #Chronic hypotension On midodrine Midodrine was increased to 10 mg 3 times daily last admit #CAD status post stent Bare-metal stents x 1 RCA 2010 On beta-lynne and aspirin and Repatha #History of right cerebellar cavernoma High risk of bleeding to avoid antiplatelet/anticoagulation as per cardiology notes #Heart failure with recovered EF Moderate mitral regurgitation EF 35 to 39% echo done on 07/28/2023 ef 60-65% on echo 09/19/24 On metoprolol succinate, Jardiance and Entresto and spironolactone Monitor for volume overload #GERD On omeprazole #Hyperlipidemia On Repatha #Hypothyroidism On Synthyroid #Depression and anxiety On Paxil and Ativan as needed DVT prophylaxis Heparin subcu Disposition Med/telemetry Full code. PT/OT evalNADER to assist w/ dc plan. Admission and Anticipated Discharge Date Admission Date: January 25, 2025 Subjective Patient was seen and examined at bedside. Patient was lying in bed, on 1 L oxygen via nasal cannula. Patient feels little improved but had continuous bouts of cough w/ some activity yesterday per pt. Patient feels weak and not much moving around, reports eating okay and moving bowels okay. RN communicated for OOB and ambulation and IS. Physical Exam Physical Exam: General- Not in distress Head- atraumatic Eyes- PERRL. ENT- oropharynx clear Neck- supple, no JVD. Lungs- no wheezing, b/l decreased breath sounds. Heart- regular rhythm; no murmur, no gallop. Abdomen- normal bowel sounds, soft, nontender, no distension Extremities- no pretibial edema, no erythema seen Neuro- alert, oriented PERRL, no facial palsy; no dysarthria; moves extremities Results & Data Results & Data Vital Signs (Past 12 Hours) Vital Signs Temp Pulse Pulse Resp BP Pulse Ox O2 Del Method 01/29/25 11:14 36.7 C 68 20 114/73 96 Nasal Cannula 01/29/25 08:26 70 01/29/25 08:25 36.5 C 73 18 109/75 98 Room Air 01/29/25 08:06 Nasal Cannula 01/29/25 07:15 72 18 99 Nasal Cannula 01/29/25 05:37 36.8 C 71 20 107/72 98 Nasal Cannula 01/28/25 23:54 73 01/28/25 23:52 36.4 C L 84 20 112/71 96 Nasal Cannula O2 Flow Rate 01/29/25 11:14 1 01/29/25 08:26 01/29/25 08:25 01/29/25 08:06 1 01/29/25 07:15 1 01/29/25 05:37 2 01/28/25 23:54 01/28/25 23:52 2
--- NOTE | 2025-01-30 08:35 | Palliative Care Consultation ---
Date of Consultation January 30, 2025 Assessment & Plan (1) Palliative care by specialist: Met with pt and her grand daughter at bedside. Introduced Palliative Medicine and explained our role in advanced care planning, symptom management and navigation through the progression of life limiting disease. Patient and/or family were receptive to palliative services for goals of care discussions. Reviewed we are different from hospice, a home health nurse visiting service. Pt follows with [facility] hospice at home. (2) Counseling regarding advanced directives and goals of care: met with pt for 35 minutes to discuss nature of COPD as a progressively debilita ting disease, pt values and goals of care, importance of completing advanced directive, and roles/responsibilities of HCPOA. Ultimately pt shared that being at home is of highest value to her and although she would not want to be on ventilator for "penitentiary" at this time she wants to remain full code. encouraged ongoing family discussion as well as completion of AD. Plan -FULL CODE - Pt follows with [facility] outpatient palliative care team for symptom management and navigation. - We will sign off on this patient as goals of care are clearly established to continue all life prolonging therapies Thank you for including Palliative Care in the management of this patient. Please call with any questions or concerns regarding this consultation. History of Present Illness Reason for Consultation: end stage lung disease, [facility] Requesting Physician: Rebecca Barrera MD Attending Physician: Rebecca Barrera MD History of Present Illness Ms Brown is a 59-year-old female with PMHx including COPD baseline 2L O2, hypothyroidism, hyperlipidemia, lung nodules, history of CAD status post stent, chronic combined systolic and diastolic CHF, CKD stage III, cerebellar hemangioma, hypertension, moderate mitral regurgitation, irritable bowel syndrome with constipation, gastroparesis, sicca syndrome, diverticulosis, degenerative disease, reflux sympathetic dystrophy, depression, generalized anxiety disorder, PTSD, statin intolerance, presents to ED 01/24 with CRUZ. SOB and productive cough. Patient recently admitted (01/16-01/19) for COPD exacerbation. Allergies Allergy/AdvReac Type Severity Reaction Status Date / Time tramadol Allergy Severe Seizure Verified 10/13/24 00:02 adhesive Allergy Mild BANDAIDS : Verified 10/13/24 00:02 SKIN ABRASION ketorolac [From Toradol] Allergy Mild HX KIDNEY Verified 10/13/24 00:02 FAILURE adhesive tape Allergy Unknown SKIN TEARS Verified 10/13/24 00:02 ibuprofen Allergy Unknown HX KIDNEY Verified 10/13/24 00:02 FAILURE NSAIDS (Non-Steroidal Allergy Unknown HX KIDNEY Verified 10/13/24 00:02 Anti-Inflamma FAILURE Sulfa (Sulfonamide Allergy Unknown HIVES Verified 10/13/24 00:02 Antibiotics) meperidine AdvReac Unknown NOT A Verified 10/13/24 00:02 VERIFIED RXN: MOOD SWINGS prednisone AdvReac Unknown Patient Verified 10/13/24 00:02 Reports Contraindication in Kidney Failure/SEE NOTES rosuvastatin [From Crestor] AdvReac Unknown Weakness, Verified 10/13/24 00:02 RHABDOMYLOSIS, ACUTE RENAL FAILURE Home Medications Medication Instructions Recorded Confirmed Type albuterol sulfate 90 mcg/actuation 2 puff inhalation Q4H PRN 11/11/24 01/24/25 History aerosol inhaler Shortness Of Breath Or Wheezing aspirin 81 mg tablet,delayed 81 mg PO DAILY 11/11/24 01/24/25 History release empagliflozin 10 mg tablet 10 mg PO DAILY 11/11/24 01/24/25 History (Jardiance) evolocumab 140 mg/mL subcutaneous 140 mg subcut UD 11/11/24 01/24/25 History pen injector (Repatha Wonick) fluticasone 250 mcg-salmeterol 50 1 inh inhalation [facility] 11/11/24 01/24/25 History mcg/dose blistr powdr for inhalation folic acid 1 mg tablet 1 mg PO QAM 11/11/24 01/24/25 History ipratropium 0.5 mg-albuterol 3 mg 3 ml inhalation QID PRN Shortness 11/11/24 01/24/25 History (2.5 mg base)/3 mL nebulization Of Breath Or Wheezing soln lorazepam 0.5 mg tablet 0.5 mg PO DAILY PRN Anxiety 11/11/24 01/24/25 History methocarbamol 500 mg tablet 500 mg PO QID PRN muscle spasms 11/11/24 01/24/25 History metoprolol succinate 50 mg 50 mg PO UD 11/11/24 01/24/25 History tablet,extended release 24 hr omeprazole 20 mg capsule,delayed 20 mg PO AMHS 11/11/24 01/24/25 History release ondansetron HCl 4 mg tablet 4 mg PO TID PRN Nausea And Vomiting 11/11/24 01/24/25 History oxycodone 5 mg tablet 5 mg PO Q4H PRN Pain, Severe 11/11/24 01/24/25 History paroxetine HCl 40 mg tablet 40 mg PO HS 11/11/24 01/24/25 History pregabalin 75 mg capsule 75 mg PO TID 11/11/24 01/24/25 History sacubitril 24 mg-valsartan 26 mg 1 tab PO AMHS 11/11/24 01/24/25 History tablet (Entresto) levothyroxine 75 mcg tablet 75 mcg PO DAILYBB 01/15/25 01/24/25 History (Synthroid) prednisone 5 mg tablet 5 mg PO QAM 01/15/25 01/24/25 History spironolactone 25 mg tablet 12.5 mg PO QAM 01/15/25 01/24/25 History midodrine 5 mg tablet 10 mg (2 x 5 mg) PO TID 30 days 01/19/25 01/24/25 Rx #180 tabs Patient History Medical History Emphysema/COPD daily nebulizer, and prn neb and inh; f/u pulmonology at [facility] and [place] 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 History of colitis Decreased mobility lt arm>CRPS PTSD (post-traumatic stress disorder) Unique anesthetic considerations on preoperative anesthesia assessment high level anxiety when sedated, hx intubation w Flu A....PTSD, "gets scared when put to sleep" History of colon polyps Low blood pressure currently on midodrine; f/u [facility] cardio at and [place] History of influenza INFLUENZA A, February 2022 - [facility] hospitalization, "intubated while in the hospital" Pain syndrome, chronic chronic regional pain syndrome : left arm/received lidocaine injections in [place]/every three months/due may 2023. left limb restriction. History of renal failure "from her crestor medication" Oxygen dependent 2 L o2 continuous. Emphysema lung Statin intolerance Chronic pain see pain clinic for lt arm and neck, @[facility] Anxiety Shortness of breath chronic Neurofibromatosis Hypokalemia HX / CAN NOT TOLERATE PO POTASSIUM PILLS DUE TO GASTROPARESIS Hx of bronchitis Myocardial infarction 2010 - CHEST PAIN -[facility] ER AND HAD HEART CATH WITH ONE STENT (BARE METAL) FOLLOW WITH [facility] Seizure 2014 ONLY HAD ONE -- ADMITTED TO [facility] --- METABOLIC RELATED ---- NO MEDICATION Pneumothorax AGE 24 - SURGERY TO REPAIR THE LEFT SIDE AND CHEMICAL TREATMENT ON THE RIGHT SIDE AT [place] Gastroparesis Cavernous hemangioma of brain stable Surgical History Hx of right cataract extraction History of heart artery stent 2010, [place], [facility], x1 stent; f/u [facility] cardio at History of endoscopy Hx of colonoscopy Hx of vaginal surgery 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 Hx of section X2 Hx of cardiac cath 2010, [place], [facility], x1 stent; f/u [facility] cardio at History of hernia repair UMBILICAL Family History Father Lung disease Severe emphysema, pneumothorax Brother Family history of diabetes mellitus Brother Family history of diabetes mellitus Family/Other Family history of cancer Aunt Family history of colonic polyps Grandfather Family history of lymphoma Social History Smoking Status: Former smoker Tobacco Type: Cigarettes Age Started Using Tobacco: 11; Age Quit Using Tobacco: 53; packs per day: 1; Cigarettes Per Day: has 1 occasionally; Second Hand Exposure: Yes; Do You Dip or Chew Tobacco: No; Hx Alcohol Use: No Hx Substance Use: Yes Last Used Substance: Days (ago) Last Used Substance Other:: daily-"just a few hits a day" Preferred Language: Hungarian Communication Ability: Effective Research Editor Required: No Beliefs That Will Affect Care: None marital status: Current Living Situation: Spouse Current Living Situation Comment: and daughter How many Children do You have: 3 Other Information That Helps Us Care for You: No Feels Safe at Home: Yes Safety Concerns: Feels Safe At This Time Assistive Devices: Nebulizer and Oxygen - Continuous Review of Systems Constitutional: + fatigue, + weakness and + weight loss Respiratory: + cough, + dyspnea and + dyspnea on exer tion congestion, productive cough, difficulty clearing secretions Physical Exam Constitutional: WD/WN, vitals as above Eyes: PERRL, conjunctivae normal, anicteric sclerae ENMT: external ear and nose normal, oropharynx normal Neck: trachea midline, no thyromegaly Respiratory: + uses accessory muscles (mild), able to speak in complete sentences, + tachypneic, + prolonged expiratory phase and symmetric chest movement Gastrointestinal (Abdomen): normal bowel sounds, soft, nontender, no hepatosplenomegaly Musculoskeletal: no cyanosis or clubbing, extremities motor strength 5/5 Skin: no rashes, warm and dry Neurologic: PERRL, EOMI, accommodation nl, no face palsy, no dysarthria Results & Data Vital Signs (Past 12 Hours) Vital Signs Temp Pulse Pulse Resp BP Pulse Ox O2 Del Method 01/30/25 07:30 62 01/30/25 07:14 36.6 C 66 18 100/67 97 Nasal Cannula 01/30/25 07:05 106 H 18 97 Nasal Cannula 01/30/25 03:26 36.7 C 76 18 112/72 98 Nasal Cannula 01/29/25 23:35 36.6 C 62 16 125/80 96 Room Air 01/29/25 22:00 62 O2 Flow Rate 01/30/25 07:30 01/30/25 07:14 1 01/30/25 07:05 1 01/30/25 03:26 1 01/29/25 23:35 01/29/25 22:00 Diagnostic Findings Chest X-Ray 01/28/25 23:38 EXAM: XR chest 1V portable CLINICAL HISTORY: Wheeze. TECHNIQUE: An X-ray image of the chest is obtained in AP projection. COMPARISON: 01/24/2025. FINDINGS: Pulmonary Parenchyma: Hyperinflated hyperlucent lungs with coarse interstitial linings and fibrotic bands. A nodular shadow in left lung upper zone to be correlated with CT dated 10/13/2024 (stable). No evidence of consolidation, collapse. No evidence of pleural effusion. Bilateral apical pleural thickening. Heart and Mediastinum: Heart size and shape are normal. No mediastinal widening or masses. No hilar or mediastinal lymphadenopathy. Bony Thorax: Bony thorax appears intact without fractures or deformities. Soft Tissues: Soft tissues overlying the chest wall are unremarkable. Surgical steeples the left apical region IMPRESSION: 1. Bilateral emphysematous/COPD changes with fibrosis (stable). 2. Compared to the previous no interval change is seen. Electronically signed by Chris Amaral 01-29-2025 01:15 AM Medications Administered Current Inpatient Medications Acetaminophen (Acetaminophen 325 Mg Tab) 650 mg PO Q4H PRN PRN Reason: Pain or Fever Stop: 02/24/25 01:27 Albuterol (Albuterol Hfa 8 Gm Inhaler) 2 puffs INH Q4H PRN PRN Reason: Shortness Of Breath Or Wheezing Stop: 02/24/25 01:27 Albuterol (Albut/Ipratrop 3mg/0.5mg Neb 3 Ml Vial) 3 ml NEB Q4H PRN; Protocol PRN Reason: Shortness Of Breath Or Wheezing Stop: 02/24/25 01:27 Last Admin: 01/28/25 23:05 Dose: 3 ml Aspirin (Aspirin 81 Mg Ectab) 81 mg PO DAILY [facility] Stop: 02/24/25 08:59 Last Admin: 01/30/25 08:34 Dose: 81 mg Azithromycin (Azithromycin 250 Mg Tab) 250 mg PO QAM [facility] Stop: 02/02/25 08:59 Last Admin: 01/30/25 08:35 Dose: 250 mg Benzonatate (Benzonatate 100 Mg Capsule) 100 mg PO TID PRN PRN Reason: Cough Stop: 02/27/25 23:36 Budesonide (Budesonide 0.5 Mg/2 Ml Vial (Pulmicort)) 0.5 mg NEB BIDR [facility] Stop: 02/27/25 18:59 Last Admin: 01/30/25 07:05 Dose: 0.5 mg Dexamethasone (Dexamethasone 4 Mg Tab) 4 mg PO DAILY [facility] Stop: 02/27/25 08:59 Last Admin: 01/30/25 08:34 Dose: 4 mg Empagliflozin (Empagliflozin 10 Mg Tab) 10 mg PO DAILY [facility] Stop: 02/24/25 08:59 Last Admin: 01/30/25 08:35 Dose: 10 mg Folic Acid (Folic Acid 1 Mg Tab) 1 mg PO QAM [facility] Stop: 02/24/25 08:59 Last Admin: 01/30/25 08:33 Dose: 1 mg Formoterol Fumarate (Formoterol 20 Mcg/2 Ml Vial) 20 mcg NEB BIDR [facility] Stop: 02/27/25 18:59 Last Admin: 01/30/25 07:05 Dose: 20 mcg Guaifenesin (Guaifenesin 600 Mg Tabcr) 1,200 mg PO Q12 [facility] Stop: 02/27/25 08:59 Last Admin: 01/30/25 08:33 Dose: 1,200 mg Heparin Sodium (Porcine) (Heparin Sod 5,000 Unit/0.5 Ml Vial) 5,000 units SQ Q8 [facility] Stop: 02/24/25 05:59 Last Admin: 01/30/25 05:51 Dose: 5,000 units Hydrocodone Bit/Homatropine Methylb (Hydrocodone/Homatropine Syrup 5mg/1.5mg 5ml Udp) 5 ml PO Q6H PRN PRN Reason: Cough Stop: 02/08/25 13:41 Last Admin: 01/30/25 03:33 Dose: 5 ml Levothyroxine Sodium (Levothyroxine Sodium 75 Mcg Tablet) 75 mcg PO DAILYBB [facility] Stop: 02/24/25 06:29 Last Admin: 01/30/25 05:51 Dose: 75 mcg Loratadine (Loratadine 10 Mg Tab) 10 mg PO QAM [facility] Stop: 02/24/25 08:59 Last Admin: 01/30/25 08:34 Dose: 10 mg Lorazepam (Lorazepam 0.5 Mg Tab) 0.5 mg PO DAILY PRN PRN Reason: Anxiety Stop: 02/24/25 01:27 Last Admin: 01/30/25 08:40 Dose: 0.5 mg Methocarbamol (Methocarbamol 500 Mg Tablet) 500 mg PO QID PRN PRN Reason: muscle spasms Stop: 02/24/25 01:27 Metoprolol Succinate (Metoprolol Succ 50mg Ext Rel Tab) 50 mg PO QAM [facility] Stop: 02/24/25 08:59 Last Admin: 01/30/25 08:34 Dose: 50 mg Metoprolol Succinate (Metoprolol Succ 25mg Ext Rel Tab) 25 mg PO HS [facility] Stop: 02/24/25 20:59 Last Admin: 01/29/25 20:30 Dose: 25 mg Midodrine (Midodrine Hcl 10 Mg Tab) 10 mg PO TID [facility] Stop: 02/24/25 08:59 Last Admin: 01/30/25 08:33 Dose: 10 mg Montelukast Sodium (Montelukast Sodium 10 Mg Tablet) 10 mg PO HS [facility] Stop: 02/24/25 20:59 Last Admin: 01/29/25 20:32 Dose: 10 mg Nitroglycerin (Nitroglycerin Sl 0.4 Mg/Tab Tab) 0.4 mg SL Q5M PRN PRN Reason: Chest Pain Stop: 02/24/25 01:27 Oxycodone HCl (Oxycodone Hcl Ir 5 Mg Tab (Immediate Release)) 5 mg PO Q4H PRN PRN Reason: Pain, Severe Stop: 02/08/25 01:27 Pantoprazole Sodium (Pantoprazole 40 Mg Tab) 40 mg PO BID [facility] Stop: 02/24/25 08:59 Last Admin: 01/30/25 08:35 Dose: 40 mg Paroxetine HCl (Paroxetine Hcl 20 Mg Tab) 40 mg PO HS [facility] Stop: 02/24/25 20:59 Last Admin: 01/29/25 20:30 Dose: 40 mg Polyethylene Glycol (Polyethylene (Miralax) 17 Gm Pack) 17 gm PO DAILY PRN PRN Reason: Constipation Stop: 02/24/25 01:27 Pregabalin (Pregabalin 75 Mg Cap) 75 mg PO TID [facility] Stop: 02/24/25 08:59 Last Admin: 01/30/25 08:40 Dose: 75 mg Sacubitril/Valsartan (Valsartan/Sacubitril 26/24mg Tab) 1 tab PO AMHS [facility] Stop: 02/24/25 08:59 Last Admin: 01/30/25 08:33 Dose: 1 tab Spironolactone (Spironolactone 12.5 Mg Tab) 12.5 mg PO QAM [facility] Stop: 02/24/25 08:59 Last Admin: 01/30/25 08:34 Dose: 12.5 mg Umeclidinium [place] (Umeclidinium [place] 62.5mcg/Blister 7 Puffs/Inhaler) 1 puffs INH DAILY [facility]; Protocol Stop: 02/24/25 08:59 Last Admin: 01/30/25 08:36 Dose: 1 puffs PG Care Time/CCT Total # of Minutes Spent Total Time Spent with Patient: Total time spent is greater than 50% in coordination of care (as documented) at patient's floor/unit and/or counseling patient: Advanced Care Planning 75519 Advanced Care Planning 30 [place] [address] IN/OBS CONSULT LVL 2,35M Patient Type New History Expanded Problem Focused Exam Problem Focused Medical Decision Making Low Complexity Diagnoses Palliative care by specialist Z51.5 Counseling regarding advanced directives and goals of care Z71.89 Additional Codes Advanced Care Planning - 66373 Advanced Care Planning 30 Min: 33913 Advanced Care Planning 30 Min ([id number])
--- NOTE | 2025-01-30 11:46 | Hospitalist Progress Note ---
Date of Service January 30, 2025 Assessment & Plan (1) COPD exacerbation: Plan: 59-year-old female with past med history significant for chronic respiratory failure using oxygen 2 L, COPD, hypothyroidism, hyperlipidemia, lung nodules, history of CAD status post stent, chronic combined systolic and diastolic CHF, CKD stage III, cerebellar hemangioma, hypertension, moderate mitral regurgitation, irritable bowel syndrome with constipation, gastroparesis, sicca syndrome, diverticulosis, degenerative disease, reflux sympathetic dystrophy, depression, generalized anxiety disorder, PTSD, statin intolerance admitted for recurrent COPD exacerbation. #Acute exacerbation of COPD: Underlying advanced COPD COPD exacerbation presenting as a complicated bronchitis, no sepsis POA. Admitting chest imaging negative for acute finding, negative for pulmonary embolism. Demonstrated severe emphysema. Respiratory BioFire negative. 01/25 continue nebs audra and prn. continue laba/ics add LAMA 01/25 continue singulair continue claritin Pulm evaled, recs are - neb budesonide, neb perforomist, c/w incruse, po dexa, azithro, OP pulm rehab, palliative care eval. Pt to f/u w/ pulm and pulm rehab on dc. PFT In 6-8 weeks. Palliative consult, await eval PT/OT. Pt advised for ambulation to assess improvement. #Chronic hypotension On midodrine Midodrine was increased to 10 mg 3 times daily last admit #CAD status post stent Bare-metal stents x 1 RCA 2010 On beta-lynne and aspirin and Repatha #History of right cerebellar cavernoma High risk of bleeding to avoid antiplatelet/anticoagulation as per cardiology notes #Heart failure with recovered EF Moderate mitral regurgitation EF 35 to 39% echo done on 07/28/2023 ef 60-65% on echo 09/19/24 On metoprolol succinate, Jardiance and Entresto and spironolactone Monitor for volume overload #GERD On omeprazole #Hyperlipidemia On Repatha #Hypothyroidism On Synthyroid #Depression and anxiety On Paxil and Ativan as needed DVT prophylaxis Heparin subcu Disposition Med/telemetry Full code. PT/OT eval, CM to assist w/ dc plan. Pending palliative eval. Admission and Anticipated Discharge Date Admission Date: January 25, 2025 Subjective Patient was seen and examined at bedside. Patient was lying in bed, on 1 L oxygen via nasal cannula. Pt feels better today, reports no sob, improving cough. Patient feels weak and not much moving around, reports eating okay and moving bowels okay. Pt has been encouraged for OOB and ambulation. Physical Exam Physical Exam: General- Not in distress Head- atraumatic Eyes- PERRL. ENT- oropharynx clear Neck- supple, no JVD. Lungs- no wheezing, b/l decreased breath sounds. Heart- regular rhythm; no murmur, no gallop. Abdomen- normal bowel sounds, soft, nontender, no distension Extremities- no pretibial edema, no erythema seen Neuro- alert, oriented PERRL, no facial palsy; no dysarthria; moves extremities Results & Data Results & Data Vital Signs (Past 12 Hours) Vital Signs Temp Pulse Pulse Resp BP Pulse Ox O2 Del Method 01/30/25 11:27 36.5 C 71 18 83/63 L 97 Nasal Cannula 01/30/25 09:47 Nasal Cannula 01/30/25 07:30 62 01/30/25 07:14 36.6 C 66 18 100/67 97 Nasal Cannula 01/30/25 07:05 106 H 18 97 Nasal Cannula 01/30/25 03:26 36.7 C 76 18 112/72 98 Nasal Cannula O2 Flow Rate 01/30/25 11:27 1 01/30/25 09:47 1 01/30/25 07:30 01/30/25 07:14 1 01/30/25 07:05 1 01/30/25 03:26 1
[2025-01-31 08:14] LABS: Hematocrit (blood only) 44.8 % (37.0-47.0); Hemoglobin 14.5 g/dl (12.0-16.0); Mean Corpuscular Hemoglobin 32.9 pg (25.0-34.0); Mean Corpuscular Hgb Conc 32.4 g/dL (32.0-36.0); Mean Corpuscular Volume 101.6 fL (80.0-100.0); Mean Platelet Volume 10.4 fL (9.4-12.4); Platelet Count 239 K/uL (130-400); RDW Coefficient of Variation 13.3 % (11.5-14.5); RDW Standard Deviation 50.4 fL (36.4-46.3); Red Blood Count 4.41 M/uL (4.20-5.40); White Blood Count 14.87 K/ul (4.8-10.8)
--- NOTE | 2025-01-31 10:37 | Discharge Summary ---
Date of Service January 31, 2025 Admission HPI Per Admitting Provider 59-year-old female with past med history significant for chronic respiratory failure using oxygen 2 L, COPD, hypothyroidism, hyperlipidemia, lung nodules, history of CAD status post stent, chronic combined systolic and diastolic CHF, CKD stage III, cerebellar hemangioma, hypertension, moderate mitral regurgitation, irritable bowel syndrome with constipation, gastroparesis, sicca syndrome, diverticulosis, degenerative disease, reflux sympathetic dystrophy, depression, generalized anxiety disorder, PTSD, statin intolerance, presents with shortness of breath and cough. Patient was recently in the hospital for [place] PD exacerbation. Patient says she continues to have shortness of breath and cough and bringing up phlegm. Denies any fevers. She has chest pain when taking deep breath. Has mild headache. No dizziness. Vision is okay. No runny nose or sore throat. Appetite is okay. No nausea. No abdominal pain. Normal bowel and bladder movements. Hemodynamics okay. Past medical history. As mentioned above. Past surgical history. . Colonoscopy. Conization of cervix. EGD. EGD with biopsy. Injection of lumbosacral spine. Diagnostic laparoscopy. Ligation of oviducts. Tonsillectomy. Excision of left wrist ganglion. Repair of incisional hernia. Thoracotomy with repair of lung in 1988 and 1990 secondary to pneumothorax. Social history. . Smokes half pack a day for 45 years. Alcohol rarely. No drug use. Social history. Paternal grandfather had cancer. Aunt had colon cancer. Father had heart attack. Stroke. Mother had rheumatoid arthritis. Sister had stroke. Sister has diabetes. Brother has hypertension, diabetes. Admission Exam Per Admitting Provider General- Not in distress Head- atraumatic Eyes- PERRL. ENT- oropharynx clear Neck- supple, no JVD. Lungs- clear to auscultation mild b/l wheezing, no crackles Heart- regular rhythm; no murmur, no gallop. Abdomen- normal bowel sounds, soft, nontender, no distension Extremities- no pretibial edema, no erythema seen Neuro- alert, oriented PERRL, no facial palsy; no dysarthria; moves extremities Principal Diagnosis Acute exacerbation of COPD Underlying advanced COPD Discharge Exam General- Not in distress Head- atraumatic Eyes- PERRL. ENT- oropharynx clear Neck- supple, no JVD. Lungs- no wheezing, b/l decreased breath sounds. Heart- regular rhythm; no murmur, no gallop. Abdomen- normal bowel sounds, soft, nontender, no distension Extremities- no pretibial edema, no erythema seen Neuro- alert, oriented PERRL, no facial palsy; no dysarthria; moves extremities Discharge Data Allergies Allergy/AdvReac Type Severity Reaction Status Date / Time tramadol Allergy Severe Seizure Verified 10/13/24 00:02 adhesive Allergy Mild BANDAIDS : Verified 10/13/24 00:02 SKIN ABRASION ketorolac [From Toradol] Allergy Mild HX KIDNEY Verified 10/13/24 00:02 FAILURE adhesive tape Allergy Unknown SKIN TEARS Verified 10/13/24 00:02 ibuprofen Allergy Unknown HX KIDNEY Verified 10/13/24 00:02 FAILURE NSAIDS (Non-Steroidal Allergy Unknown HX KIDNEY Verified 10/13/24 00:02 Anti-Inflamma FAILURE Sulfa (Sulfonamide Allergy Unknown HIVES Verified 10/13/24 00:02 Antibiotics) meperidine AdvReac Unknown NOT A Verified 10/13/24 00:02 VERIFIED RXN: MOOD SWINGS prednisone AdvReac Unknown Patient Verified 10/13/24 00:02 Reports Contraindication in Kidney Failure/SEE NOTES rosuvastatin [From Crestor] AdvReac Unknown Weakness, Verified 10/13/24 00:02 RHABDOMYLOSIS, ACUTE RENAL FAILURE Consultations 01/27/25 17:59 Consult Pulmonology Routine 01/28/25 12:13 Consult Palliative Care Routine Hospital Course (1) COPD exacerbation: 59-year-old female with past med history significant for chronic respiratory failure using oxygen 2 L, COPD, hypothyroidism, hyperlipidemia, lung nodules, history of CAD status post stent, chronic combined systolic and diastolic CHF, CKD stage III, cerebellar hemangioma, hypertension, moderate mitral regurgitation, irritable bowel syndrome with constipation, gastroparesis, sicca syndrome, diverticulosis, degenerative disease, reflux sympathetic dystrophy, depression, generalized anxiety disorder, PTSD, statin intolerance admitted for recurrent COPD exacerbation. #Acute exacerbation of COPD: Underlying advanced COPD COPD exacerbation presenting as a complicated bronchitis, no sepsis POA. Admitting chest imaging negative for acute finding, negative for pulmonary embolism. Demonstrated severe emphysema. Respiratory BioFire negative. 01/25 continue laba/ics c/w LAMA 01/25 continue singulair continue claritin Pulm evaled, recs are - complete po dexa and azithro course, OP pulm rehab, palliative care eval. Pt to f/u w/ pulm and pulm rehab on dc. PFT In 6-8 weeks. Palliative consult, appreciate eval. Pt states she doesn't have palliative as OP, will need to set up on dc. PT/OT. #Chronic hypotension On midodrine Midodrine was increased to 10 mg 3 times daily last admit #CAD status post stent Bare-metal stents x 1 RCA 2010 On beta-lynne and aspirin and Repatha #History of right cerebellar cavernoma High risk of bleeding to avoid antiplatelet/anticoagulation as per cardiology notes #Heart failure with recovered EF Moderate mitral regurgitation EF 35 to 39% echo done on 07/28/2023 ef 60-65% on echo 09/19/24 On metoprolol succinate, Jardiance and Entresto and spironolactone Monitor for volume overload #GERD On omeprazole #Hyperlipidemia On Repatha #Hypothyroidism On Synthyroid #Depression and anxiety On Paxil and Ativan as needed DVT prophylaxis Heparin subcu Disposition Med/telemetry Full code. Patient is being discharged home with following instructions at the point of discharge: Follow-up with your primary care physician within a week time and likely you will need labs CBC/CMP/magnesium/phosphorus. You will be discharged on azithromycin to complete the course, you will be discharged on dexamethasone. Follow-up with your pulmonology in 2 to 4 weeks time upon discharge. Establish and follow-up with pulmonology rehab upon discharge. You will benefit from having pulmonary function test in about 6 weeks time upon discharge, coordinate with your PCP office to set up the test. You will benefit from establishing with palliative care and following up as an outpatient given End stage COPD. Take your medications as prescribed. Please make sure that you are able to get your medications today by calling your pharmacy before you leave the hospital so that your treatment continuity is not broken. Home Health Attestation I certify that this patient is under my care and that I, or a physicians geriatric assistant working with me, had a face to-face encounter that meets the home health [id number] encounter requirements with this patient. The encounter with the patient was in whole, or in part, for the following medical condition, which is the primary reason for home health care (list medical condition): I certify that, based on my findings, the following services are medically necessary home health services: My clinical findings support the need for the above services because: Further, I certify that my clinical findings support that this patient is homebound (i.e. absences from home require considerable and taxing effort and are for medical reasons or evangelical services or infrequently or of short durat ion when for other reasons) because: Certification for Home Health Services: Based on the above findings, I certify that this patient is confined to the home and needs intermittent detention care, physical therapy and/or speech therapy or continues to need occupational therapy. The patient is under my care, and I have initiated the establishment of the plan of care. This patient will be followed by a physician who will periodically review the plan of care. Total Time Total Time Spent Total Time Spent (In Minutes): 35 Discharge Plan Discharge Items Patient Disposition: Home - Self-Care Reason For Visit: COPD EXCERBATION Discharge Diagnosis: Acute exacerbation of COPD Underlying advanced COPD Activity: Resume your previous activity Non-emergency contact: Primary Care Provider Call non-emergency contact if: you have any medication questions, your symptoms worsen and your temperature is above 101 Follow-up/Referrals: Ludy Jacobs CRNP [Primary Care Provider] - (Date & Time 02/07/2025 11:00 AM Provider: Ludy Jacobs CRNP [facility] ) Diet: Heart Healthy Addtl Attending Provider Instructions: Follow-up with your primary care physician within a week time and likely you will need labs CBC/CMP/magnesium/phosphorus. You will be discharged on azithromycin to complete the course, you will be discharged on dexamethasone. Follow-up with your pulmonology in 2 to 4 weeks time upon discharge. Establish and follow-up with pulmonology rehab upon discharge. You will benefit from having pulmonary function test in about 6 weeks time upon discharge, coordinate with your PCP office to set up the test. You will benefit from establishing with palliative care and following up as an outpatient given End stage COPD. Take your medications as prescribed. Please make sure that you are able to get your medications today by calling your pharmacy before you leave the hospital so that your treatment continuity is not broken. Pending Studies at Discharge: No Stand-Alone Forms: My [facility] [employer], Smoking Cessation Medications and DC Order Prescriptions: New azithromycin 250 mg Tablet 250 mg PO QAM 3 Days Qty: 3 0RF Incruse Ellipta 62.5 mcg/actuation Blister With Device 1 inh inhalation DAILY Qty: 30 0RF dexamethasone 4 mg Tablet 4 mg PO UD Qty: 5 0RF Rx Instructions: 4mg daily x 3 day, then 2 mg daily x 3 days, then stop. guaifenesin [Mucinex] 600 mg Tablet Extended Release 12hr 1,200 mg PO Q12 5 Days Qty: 20 0RF montelukast 10 mg Tablet 10 mg PO HS Qty: 30 0RF Continued methocarbamol 500 mg tablet 500 mg PO QID PRN (Reason: muscle spasms) fluticasone propion-salmeterol 250-50 mcg/dose blister with device 1 inh INHALATION [facility] ipratropium-albuterol 0.5 mg-3 mg(2.5 mg base)/3 mL solution for nebulization 3 ml INHALATION QID PRN (Reason: Shortness Of Breath Or Wheezing) metoprolol succinate 50 mg tablet extended release 24 hr 50 mg PO UD Rx Instructions: 50mg in am and 25mg q hs ondansetron HCl 4 mg tablet 4 mg PO TID PRN (Reason: Nausea And Vomiting) aspirin 81 mg Tablet,Delayed Release (Dr/Ec) 81 mg PO DAILY lorazepam 0.5 mg tablet 0.5 mg PO DAILY PRN (Reason: Anxiety) omeprazole 20 mg capsule,delayed release(DR/EC) 20 mg PO AMHS folic acid 1 mg tablet 1 mg PO QAM albuterol sulfate 90 mcg/actuation HFA aerosol inhaler 2 puff INHALATION Q4H PRN (Reason: Shortness Of Breath Or Wheezing) paroxetine HCl 40 mg tablet 40 mg PO HS oxycodone 5 mg tablet 5 mg PO Q4H PRN (Reason: Pain, Severe) pregabalin 75 mg capsule 75 mg PO TID Jardiance 10 mg tablet 10 mg PO DAILY Entresto 24-26 mg tablet 1 tab PO [facility] Repatha SureClick 140 mg/mL pen injector 140 mg SUBCUT UD Rx Instructions: every 2 weeks spironolactone 25 mg tablet 12.5 mg PO QAM levothyroxine [Synthroid] 75 mcg tablet 75 mcg PO DAILYBB midodrine 5 mg tablet 10 mg PO TID 30 Days Qty: 180 0RF Rx Instructions: 5mg PO TID at 8AM, NOON AND 5PM Held prednisone 5 mg tablet 5 mg PO QAM Hold Instructions: Resume on 02/07/25. Discharge Orders: Discharge Order (Routine); Ordered 01/31/25 Ordered By: Rebecca Barrera Admission Data Admit Date/Time: 01/25/25 00:12 Attending Provider: Rebecca Barrera Admit Provider: Micky Owens Primary Care Provider: Ludy Jacobs Other Providers: Mehul Delgadillo; Lex Modi; Emanuel Powell; Paulette Munoz; Jaida Haile
--- NOTE | 2025-01-31 11:24 | Hospitalist Progress Note ---
Date of Service January 31, 2025 Assessment & Plan (1) COPD exacerbation: Plan: 59-year-old female with past med history significant for chronic respiratory failure using oxygen 2 L, COPD, hypothyroidism, hyperlipidemia, lung nodules, history of CAD status post stent, chronic combined systolic and diastolic CHF, CKD stage III, cerebellar hemangioma, hypertension, moderate mitral regurgitation, irritable bowel syndrome with constipation, gastroparesis, sicca syndrome, diverticulosis, degenerative disease, reflux sympathetic dystrophy, depression, generalized anxiety disorder, PTSD, statin intolerance admitted for recurrent COPD exacerbation. #Acute exacerbation of COPD: Underlying advanced COPD COPD exacerbation presenting as a complicated bronchitis, no sepsis POA. Admitting chest imaging negative for acute finding, negative for pulmonary embolism. Demonstrated severe emphysema. Respiratory BioFire negative. 01/25 continue laba/ics c/w LAMA 01/25 continue singulair continue claritin Pulm evaled, recs are - complete po dexa and azithro course, OP pulm rehab, palliative care eval. Pt to f/u w/ pulm and pulm rehab on dc. PFT In 6-8 weeks. Palliative consult, appreciate eval. Pt states she doesn't have palliative as OP, will need to set up on dc. PT/OT. #Chronic hypotension On midodrine Midodrine was increased to 10 mg 3 times daily last admit #CAD status post stent Bare-metal stents x 1 RCA 2010 On beta-lynne and aspirin and Repatha #History of right cerebellar cavernoma High risk of bleeding to avoid antiplatelet/anticoagulation as per cardiology notes #Heart failure with recovered EF Moderate mitral regurgitation EF 35 to 39% echo done on 07/28/2023 ef 60-65% on echo 09/19/24 On metoprolol succinate, Jardiance and Entresto and spironolactone Monitor for volume overload #GERD On omeprazole #Hyperlipidemia On Repatha #Hypothyroidism On Synthyroid #Depression and anxiety On Paxil and Ativan as needed DVT prophylaxis Heparin subcu Disposition Med/telemetry Full code. Dispo: per RN pt stated she had transportation issues to go home today, asked RN to coordinate w/ CM. Per NADER " Spoke with Jack in [phone]. Absolutely refusing discharge today. She does not want to have to pay for a ride home. Family can transport tomorrow. So thats all I have to offer to the conversation. I am not here to force her to accept a billable ride service". Admission and Anticipated Discharge Date Admission Date: January 25, 2025 Subjective Patient was seen and examined at bedside. Patient was lying in bed, on RA, eating breakfast. Pt feels better today, reports no sob, reports improving cough. Patient reports eating okay and moving bowels okay. Pt has been encouraged for OOB and ambulation. Physical Exam Physical Exam: General- Not in distress Head- atraumatic Eyes- PERRL. ENT- oropharynx clear Neck- supple, no JVD. Lungs- no wheezing, b/l decreased breath sounds. Heart- regular rhythm; no murmur, no gallop. Abdomen- normal bowel sounds, soft, nontender, no distension Extremities- no pretibial edema, no erythema seen Neuro- alert, oriented PERRL, no facial palsy; no dysarthria; moves extremities Results & Data Results & Data Vital Signs (Past 12 Hours) Vital Signs Temp Pulse Pulse Resp BP Pulse Ox O2 Del Method 01/31/25 10:33 36.6 C 63 17 108/74 95 01/31/25 07:57 36.6 C 63 17 108/74 95 Room Air 01/31/25 07:38 Room Air 01/31/25 07:11 74 01/31/25 06:57 78 16 93 Room Air 01/31/25 02:20 36.8 C 71 20 116/78 97 Nasal Cannula O2 Flow Rate 01/31/25 10:33 01/31/25 07:57 01/31/25 07:38 01/31/25 07:11 01/31/25 06:57 01/31/25 02:20 1
[2025-02-01 07:36] VITALS: RESP 18
[2025-02-01 11:45] VITALS: BP 103/72; PULSE 71; TEMP 97.3; O2SAT 98
== END 2025-02-01 16:37 | disposition home or self-care (01) | DRG 191 ==
LOC: ED 18:45 → SUATTDRO 01-25 00:12 → EDINP 01-25 00:12 → 2N 01-25 01:28

== ENCOUNTER 2025-05-31 18:26 | Inpatient (IN) ==
--- NOTE | 2025-05-31 18:46 | Emergency Department Note ---
Impression & Plan Acute dyspnea, Sinus tachycardia, Acute hypokalemia ED Provider Note HISTORY OF PRESENT ILLNESS: Patient is a 59-year-old female presenting with shortness of breath. Patient reports feeling generally unwell today. Reports that she was very short of breath and having difficulties getting around at home secondary to her shortness of breath. She has a history of COPD and wears 3 L nasal cannula at baseline. Reports that she feels like she has to cough something up but is unable to. Denies any DVT or PE history. She is on a baby aspirin daily but denies any other anticoagulant use. She has a history of a cardiac stent. She states that she has been out of her medications now for 2 months. Reports there has been issues with her pharmacy and insurance and sending her medications to her home, including her metoprolol and other daily medications. Reports that she was told the medications were supposed to be delivered again today and they were not. Given her symptoms and her lack of access to her home medications, she decided to come to the ER. She does report that she had some diffuse chest tightness prior to EMS arriving. EMS reported that she had a fever and gave her a gram of Tylenol prehospital. ROS: as above PHYSICAL EXAM: Constitutional: Patient appears in no acute distress. HENT: Head: Normocephalic and atraumatic. Eyes: EOMI, PERRL Mouth/Throat: Mucous membranes moist. Neck: Trachea midline. Neck supple. Cardiovascular: Tachycardic with regular rhythm. No murmurs, rubs or gallops. Intact distal pulses. Pulmonary/Chest: No respiratory distress. Breath sounds clear and equal bilaterally. Abdominal: Abdomen soft, no tenderness, rebound or guarding. Musculoskeletal: No edema, tenderness or deformity noted. Skin: Warm and dry. No rash, erythema, pallor or cyanosis Psychiatric: Appropriate mood and affect for situation. Neurological: Alert and keenly responsive. CN II-XII grossly intact, moving all extremities equally and fully. MDM: - Vitals signs showed hypertension and tachycardia. - History obtained via parent. History as above. - Chronic conditions affecting care: steroid dependent; COPD (on 2L NC); hypothyroidism; HLD; CAD (s/p PCI); CHF; CKD; HTN - Differential diagnoses include, but are not limited to: Congestive heart failure; acute coronary syndrome; COPD/asthma exacerbation; pulmonary edema; pulmonary embolism; pneumonia; pneumothorax; viral syndrome - Order placed for continuous cardiac monitoring. At this time, monitor showed rate of 127 bpm with normal sinus rhythm, per my interpretation. - External medical records reviewed. Discharge summary dated 05/07/2025 was reviewed. Patient was admitted that time for an acute COPD exacerbation and acute on chronic respiratory failure with hypoxia. - EKG image interpreted by myself showed normal sinus rhythm. Rate tachycardic at 126 bpm. QT 334. No acute ischemic changes. - Laboratory workup interpreted by myself showed normal WBC; normal PT/INR; hypokalemia (K 3.0); normal troponin; normal procalcitonin; normal lactic acid level; normal BNP; elevated TSH (9.010) with normal T4 - CXR image reviewed by myself is negative for pneumonia, per my interpretation. - Blood cultures obtained, given patient's symptoms, tachycardia and reported fever with EMS. - Patient given 1L NS and 2.5 mg IV lopressor for tachycardia. HR improved to low 100s. Given a DuoNeb treatment in the emergency department. - CT PE negative for PE but noted to have severe emphysema per radiology. - Patient is concerned about potentially being discharged home, given that she does not have any of her prescribed home medications at home and she is still feeling short of breath. Will discuss case with hospitalist service. - Discussion was had with manager of case about patient's case and need for admission - Hospitalist, Dr. Eubanks, consulted for admission at 22:14 - Patient admitted to [facility] hospitalist service for further evaluation and management. ASSESSMENT AND PLAN: Diagnosis: acute dyspnea; acute hypokalemia; sinus tachycardia Plan: admit Past Med/Surg History Problem List (Updated 05/31/25 @ 23:31 by Allyn Larsen MD) Acute hypokalemia (Acute) Sinus tachycardia (Acute) Acute dyspnea (Acute) Chronic bronchitis Hypothyroid Depression with anxiety GERD (gastroesophageal reflux disease) COPD with acute exacerbation (Acute) Acute and chronic respiratory failure (Acute) Sepsis Counseling regarding advanced directives and goals of care Palliative care by specialist Hypoxemic respiratory failure, chronic COPD exacerbation (Acute) SOB (shortness of breath) (Acute) Chronic heart failure with preserved ejection fraction Asthma exacerbation in COPD (Acute) Acute metabolic encephalopathy (Acute) Left lower lobe pneumonia Encounter for pre-operative examination Acute on chronic heart failure with reduced ejection fraction and diastolic dysfunction CKD (chronic kidney disease), stage III (Acute) Acute on chronic respiratory failure with hypoxia DVT prophylaxis Pulmonary nodule Pericardial effusion Hypotension Bacteremia Prolonged QT interval Hypertension Diarrhea (Acute) Lab test negative for COVID-19 virus (Acute) Nausea & vomiting (Acute) Colitis (Acute) Acute dehydration (Acute) Electrolyte abnormality Hypomagnesemia (Acute) Nausea and vomiting (Acute) Hypokalemia (Acute) Generalized abdominal pain (Acute) Pericardial effusion Left ventricular systolic dysfunction UNRULY (acute kidney injury) Chronic pericarditis with effusion UTI (urinary tract infection) Acute respiratory failure with hypercapnia Acute exacerbation of chronic obstructive pulmonary disease (Acute) Acute respiratory distress (Acute) Influenza A (Acute) Hypotension Volume overload Acute respiratory failure with hypoxia Anxiety Depression Electrolyte abnormality Transaminitis DVT prophylaxis COPD (chronic obstructive pulmonary disease) (Acute) HLD (hyperlipidemia) Rhabdomyolysis Acute renal failure Pulmonary nodule Nausea (Acute) Hypokalemia (Acute) COPD exacerbation (Acute) Wrist pain, right (Acute) Seizure (Acute) Influenza A (Acute) Hypoxia (Acute) Hypokalemia (Acute) Hypokalemia (Acute) Hypokalemia (Acute) COPD exacerbation (Acute) COPD exacerbation (Acute) Bronchitis (Acute) Asthma exacerbation in COPD (Acute) Acute bronchitis (Acute) Acute bronchitis (Acute) Cellulitis (Acute) CAD (coronary artery disease) Hypothyroidism HFrEF (heart failure with reduced ejection fraction) hx Medical History Shortness of breath Elevated troponin Abnormal ECG COPD exacerbation Pneumonia Emphysema/COPD daily nebulizer, and prn neb and inh; f/u pulmonology at [facility] and [place] 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 History of colitis Decreased mobility lt arm>CRPS PTSD (post-traumatic stress disorder) Unique anesthetic considerations on preoperative anesthesia assessment high level anxiety when sedated, hx intubation w Flu A....PTSD, "gets scared when put to sleep" History of colon polyps Low blood pressure currently on midodrine; f/u [facility] cardio at and [place] History of influenza INFLUENZA A, February 2022 - [facility] hospitalization, "intubated while in the hospital" Pain syndrome, chronic chronic regional pain syndrome : left arm/received lidocaine injections in [place]/every three months/due may 2023. left limb restriction. History of renal failure "from her crestor medication" Oxygen dependent 2 L o2 continuous. Emphysema lung Statin intolerance Chronic pain see pain clinic for lt arm and neck, @[facility] Anxiety Shortness of breath chronic Neurofibromatosis Hypokalemia HX / CAN NOT TOLERATE PO POTASSIUM PILLS DUE TO GASTROPARESIS Hx of bronchitis Myocardial infarction 2010 - CHEST PAIN -[facility] ER AND HAD HEART CATH WITH ONE STENT (BARE METAL) FOLLOW WITH [facility] C[facility] Seizure 2013 ONLY HAD ONE -- ADMITTED TO [facility] --- METABOLIC RELATED ---- NO MEDICATION Pneumothorax AGE 24 - SURGERY TO REPAIR THE LEFT SIDE AND CHEMICAL TREATMENT ON THE RIGHT SIDE AT [facility] Gastroparesis Cavernous hemangioma of brain stable Surgical History Hx of right cataract extraction History of heart artery stent 2010, [place], [facility], x1 stent; f/u s cardio at History of endoscopy Hx of colonoscopy Hx of vaginal surgery 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 Hx of section X2 Hx of cardiac cath 2010, [place], [facility], x1 stent; f/u s cardio at History of hernia repair UMBILICAL Family History Father Lung disease Severe emphysema, pneumothorax Brother Family history of diabetes mellitus Brother Family history of diabetes mellitus Family/Other Family history of cancer Aunt Family history of colonic polyps Grandfather Family history of lymphoma Social History Smoking Status: Former smoker Tobacco Type: Cigarettes Age Started Using Tobacco: 11; Age Quit Using Tobacco: 53; packs per day: 1; Cigarettes Per Day: has 1 occasionally; Second Hand Exposure: No; Do You Dip or Chew Tobacco: No; Hx Alcohol Use: No Hx Substance Use: No Preferred Language: Omani Communication Ability: Effective Chair Car Driver Required: No Beliefs That Will Affect Care: None marital status: Current Living Situation: Spouse Current Living Situation Comment: lives at home with How many Children do You have: 3 Feels Safe at Home: Yes Assistive Devices: Nebulizer, Oxygen - Continuous and Walker Allergies Allergies Allergy/AdvReac Type Severity Reaction Status Date / Time adhesive tape Allergy Intermediate SKIN TEARS Verified 05/31/25 21:05 Sulfa (Sulfonamide Allergy Intermediate HIVES Verified 05/31/25 21:05 Antibiotics) adhesive Allergy Mild BANDAIDS : Verified 05/31/25 21:05 SKIN ABRASION ibuprofen AdvReac Severe HX KIDNEY Verified 05/31/25 21:05 FAILURE ketorolac [From Toradol] AdvReac Severe HX KIDNEY Verified 05/31/25 21:05 FAILURE NSAIDS (Non-Steroidal AdvReac Severe HX KIDNEY Verified 05/31/25 21:05 Anti-Inflamma FAILURE prednisone AdvReac Severe Patient Verified 05/31/25 21:05 Reports Contraindication in Kidney Failure/SEE NOTES rosuvastatin [From Crestor] AdvReac Severe Weakness, Verified 05/31/25 21:05 RHABDOMYLOSIS, ACUTE RENAL FAILURE tramadol AdvReac Severe Seizure Verified 05/31/25 21:05 meperidine AdvReac Intermediate NOT A Verified 05/31/25 21:05 VERIFIED RXN: MOOD SWINGS Home Meds Home Medications Medication Instructions Recorded Confirmed albuterol sulfate 90 mcg/actuation 2 puff inhalation Q4H PRN 11/11/24 05/31/25 aerosol inhaler Shortness Of Breath Or Wheezing aspirin 81 mg tablet,delayed 81 mg PO DAILY 11/11/24 05/31/25 release empagliflozin 10 mg tablet 10 mg PO DAILY 11/11/24 05/31/25 (Jardiance) evolocumab 140 mg/mL subcutaneous 140 mg subcut UD 11/11/24 05/31/25 pen injector (Reyes Muro) folic acid 1 mg tablet 1 mg PO QAM 11/11/24 05/31/25 ipratropium 0.5 mg-albuterol 3 mg 3 ml inhalation QID PRN Shortness 11/11/24 05/31/25 (2.5 mg base)/3 mL nebulization Of Breath Or Wheezing soln lorazepam 0.5 mg tablet 0.5 mg PO DAILY PRN Anxiety 11/11/24 05/31/25 methocarbamol 500 mg tablet 500 mg PO QID PRN muscle spasms 11/11/24 05/31/25 omeprazole 20 mg capsule,delayed 20 mg PO AMHS 11/11/24 05/31/25 release paroxetine HCl 40 mg tablet 40 mg PO HS 11/11/24 05/31/25 pregabalin 75 mg capsule 75 mg PO TID 11/11/24 05/31/25 sacubitril 24 mg-valsartan 26 mg 1 tab PO AMHS 11/11/24 05/31/25 tablet (Entresto) levothyroxine 75 mcg tablet 75 mcg PO DAILYBB 01/15/25 05/31/25 (Synthroid) prednisone 5 mg tablet 5 mg PO QAM 01/15/25 05/31/25 spironolactone 25 mg tablet 12.5 mg PO QAM 01/15/25 05/31/25 albuterol sulfate 2.5 mg/3 mL 2.5 mg continuous nebulization 4XD 04/21/25 05/31/25 (0.083 %) solution for nebulization PRN Wheezing acetaminophen 500 mg tablet 500 mg PO Q8H PRN Pain 05/04/25 05/31/25 budesonide 0.5 mg/2 mL suspension 0.5 mg inhalation AMPM 05/04/25 05/31/25 for nebulization ezetimibe 10 mg tablet 10 mg PO QAM 05/04/25 05/31/25 formoterol fumarate 20 mcg/2 mL 2 ml inhalation AMPM 05/04/25 05/31/25 solution for nebulization metoprolol succinate 50 mg 75 mg PO QAM 05/04/25 05/31/25 tablet,extended release 24 hr prednisone 20 mg tablet 20 mg PO UD PRN RESCUE KIT FOR COPD 05/31/25 05/31/25 Previous Rx's Medication Instructions Recorded montelukast 10 mg tablet 10 mg PO HS #30 tabs 01/31/25 umeclidinium 62.5 mcg/actuation 1 inh inhalation DAILY #30 ea 01/31/25 blister powder for inhalation (Incruse Ellipta) azithromycin 500 mg tablet 500 mg PO 3XWK #30 tabs 05/07/25 fluticasone 500 mcg-salmeterol 50 1 inh inhalation BID #60 ea 05/07/25 mcg/dose blistr powdr for inhalation (Wixela Inhub) midodrine 2.5 mg tablet 2.5 mg PO TID #90 tabs 05/07/25 sodium chloride 7 % for 4 ml NEB BIDR #240 mL 05/07/25 nebulization Results & Data (ED) Vital Signs Vital Signs - 24 hr 05/31/25 18:40 05/31/25 18:40 05/31/25 18:40 Temperature 36.9 C Temperature Source Oral Pulse Rate 127 H Pulse Rate [Apical] Pulse Rate from SpO2 Sensor Pulse Rhythm Regular Pulse Rhythm [Apical] Pulse Strength Normal Pulse Strength [Apical] Respiratory Rate 17 Respiratory Effort / Characteristics Non-Labored Spontaneous Non-Labored Spontaneous Respiratory Depth Normal Normal Respiratory Pattern Regular Regular Blood Pressure 160/127 H Blood Pressure [Right Arm] Blood Pressure Mean 138 Blood Pressure Mean [Right Arm] Blood Pressure Position Lying Blood Pressure Position [Right Arm] Pulse Oximetry 99 99 Oxygen Delivery Method Nasal Cannula Nasal Cannula Oxygen Flow Rate 3 3 Sepsis Recent Fever Within 48 Hours No Sepsis New/Unexplained Change in Mental Status No Sepsis Action Taken by Nursing No Action Required 05/31/25 18:40 05/31/25 18:43 05/31/25 18:43 Temperature Temperature Source Pulse Rate 120 H Pulse Rate [Apical] 120 H Pulse Rate from SpO2 Sensor Pulse Rhythm Regular Pulse Rhythm [Apical] Regular Pulse Strength Pulse Strength [Apical] Normal Respiratory Rate 18 20 Respiratory Effort / Characteristics Non-Labored Spontaneous Respiratory Depth Normal Respiratory Pattern Regular Blood Pressure Blood Pressure [Right Arm] 160/127 H Blood Pressure Mean Blood Pressure Mean [Right Arm] 138 Blood Pressure Position Blood Pressure Position [Right Arm] Lying Pulse Oximetry 99 98 Oxygen Delivery Method Nasal Cannula Nasal Cannula Nasal Cannula Oxygen Flow Rate 3 3 3 Sepsis Recent Fever Within 48 Hours Sepsis New/Unexplained Change in Mental Status Sepsis Action Taken by Nursing 05/31/25 19:06 05/31/25 19:08 05/31/25 19:18 Temperature Temperature Source Pulse Rate 120 H 119 H 122 H Pulse Rate [Apical] Pulse Rate from SpO2 Sensor 120 H 122 H Pulse Rhythm Pulse Rhythm [Apical] Pulse Strength Pulse Strength [Apical] Respiratory Rate 16 14 Respiratory Effort / Characteristics Respiratory Depth Respiratory Pattern Blood Pressure 144/105 H Blood Pressure [Right Arm] Blood Pressure Mean 118 Blood Pressure Mean [Right Arm] Blood Pressure Position Blood Pressure Position [Right Arm] Pulse Oximetry 99 99 Oxygen Delivery Method Oxygen Flow Rate Sepsis Recent Fever Within 48 Hours Sepsis New/Unexplained Change in Mental Status Sepsis Action Taken by Nursing 05/31/25 19:19 05/31/25 19:19 05/31/25 19:19 Temperature Temperature Source Pulse Rate Pulse Rate [Apical] Pulse Rate from SpO2 Sensor Pulse Rhythm Pulse Rhythm [Apical] Pulse Strength Pulse Strength [Apical] Respiratory Rate Respiratory Effort / Characteristics Respiratory Depth Respiratory Pattern Blood Pressure 144/105 H 144/105 H 144/105 H Blood Pressure [Right Arm] Blood Pressure Mean 128 128 128 Blood Pressure Mean [Right Arm] Blood Pressure Position Blood Pressure Position [Right Arm] Pulse Oximetry Oxygen Delivery Method Oxygen Flow Rate Sepsis Recent Fever Within 48 Hours Sepsis New/Unexplained Change in Mental Status Sepsis Action Taken by Nursing 05/31/25 19:21 05/31/25 19:30 05/31/25 19:30 Temperature Temperature Source Pulse Rate 120 H 117 H Pulse Rate [Apical] Pulse Rate from SpO2 Sensor 118 H 116 H Pulse Rhythm Pulse Rhythm [Apical] Pulse Strength Pulse Strength [Apical] Respiratory Rate 14 17 Respiratory Effort / Characteristics Respiratory Depth Respiratory Pattern Blood Pressure 154/96 H Blood Pressure [Right Arm] Blood Pressure Mean 103 Blood Pressure Mean [Right Arm] Blood Pressure Position Blood Pressure Position [Right Arm] Pulse Oximetry 99 99 Oxygen Delivery Method Oxygen Flow Rate Sepsis Recent Fever Within 48 Hours Sepsis New/Unexplained Change in Mental Status Sepsis Action Taken by Nursing 05/31/25 19:30 05/31/25 19:48 05/31/25 20:07 Temperature Temperature Source Pulse Rate 113 H Pulse Rate [Apical] Pulse Rate from SpO2 Sensor 113 H Pulse Rhythm Pulse Rhythm [Apical] Pulse Strength Pulse Strength [Apical] Respiratory Rate 17 Respiratory Effort / Characteristics Respiratory Depth Respiratory Pattern Blood Pressure 154/96 H 176/125 H Blood Pressure [Right Arm] Blood Pressure Mean 103 142 Blood Pressure Mean [Right Arm] Blood Pressure Position Blood Pressure Position [Right Arm] Pulse Oximetry 99 Oxygen Delivery Method Oxygen Flow Rate Sepsis Recent Fever Within 48 Hours Sepsis New/Unexplained Change in Mental Status Sepsis Action Taken by Nursing 05/31/25 20:07 05/31/25 20:30 05/31/25 20:30 Temperature Temperature Source Pulse Rate Pulse Rate [Apical] Pulse Rate from SpO2 Sensor Pulse Rhythm Pulse Rhythm [Apical] Pulse Strength Pulse Strength [Apical] Respiratory Rate Respiratory Effort / Characteristics Respiratory Depth Respiratory Pattern Blood Pressure 176/125 H 163/107 H 163/107 H Blood Pressure [Right Arm] Blood Pressure Mean 142 142 142 Blood Pressure Mean [Right Arm] Blood Pressure Position Blood Pressure Position [Right Arm] Pulse Oximetry Oxygen Delivery Method Oxygen Flow Rate Sepsis Recent Fever Within 48 Hours Sepsis New/Unexplained Change in Mental Status Sepsis Action Taken by Nursing 05/31/25 20:33 05/31/25 20:39 05/31/25 21:00 Temperature Temperature Source Pulse Rate 114 H Pulse Rate [Apical] Pulse Rate from SpO2 Sensor 116 H Pulse Rhythm Pulse Rhythm [Apical] Pulse Strength Pulse Strength [Apical] Respiratory Rate 17 Respiratory Effort / Characteristics Respiratory Depth Respiratory Pattern Blood Pressure 161/109 H 167/119 H Blood Pressure [Right Arm] Blood Pressure Mean 130 141 Blood Pressure Mean [Right Arm] Blood Pressure Position Blood Pressure Position [Right Arm] Pulse Oximetry 99 Oxygen Delivery Method Oxygen Flow Rate Sepsis Recent Fever Within 48 Hours Sepsis New/Unexplained Change in Mental Status Sepsis Action Taken by Nursing 05/31/25 21:00 05/31/25 21:00 05/31/25 21:00 Temperature Temperature Source Pulse Rate 116 H Pulse Rate [Apical] Pulse Rate from SpO2 Sensor 116 H Pulse Rhythm Pulse Rhythm [Apical] Pulse Strength Pulse Strength [Apical] Respiratory Rate 14 Respiratory Effort / Characteristics Respiratory Depth Respiratory Pattern Blood Pressure 167/119 H 167/119 H Blood Pressure [Right Arm] Blood Pressure Mean 141 141 Blood Pressure Mean [Right Arm] Blood Pressure Position Blood Pressure Position [Right Arm] Pulse Oximetry 98 Oxygen Delivery Method Oxygen Flow Rate Sepsis Recent Fever Within 48 Hours Sepsis New/Unexplained Change in Mental Status Sepsis Action Taken by Nursing 05/31/25 21:18 05/31/25 21:30 05/31/25 21:33 Temperature Temperature Source Pulse Rate 97 H 98 H Pulse Rate [Apical] Pulse Rate from SpO2 Sensor 98 H 97 H Pulse Rhythm Pulse Rhythm [Apical] Pulse Strength Pulse Strength [Apical] Respiratory Rate 22 17 Respiratory Effort / Characteristics Respiratory Depth Respiratory Pattern Blood Pressure 154/106 H Blood Pressure [Right Arm] Blood Pressure Mean 128 Blood Pressure Mean [Right Arm] Blood Pressure Position Blood Pressure Position [Right Arm] Pulse Oximetry 100 99 Oxygen Delivery Method Oxygen Flow Rate Sepsis Recent Fever Within 48 Hours Sepsis New/Unexplained Change in Mental Status Sepsis Action Taken by Nursing 05/31/25 21:45 05/31/25 21:57 05/31/25 22:00 Temperature Temperature Source Pulse Rate 96 H 98 H Pulse Rate [Apical] Pulse Rate from SpO2 Sensor 97 H 98 H Pulse Rhythm Pulse Rhythm [Apical] Pulse Strength Pulse Strength [Apical] Respiratory Rate 12 15 Respiratory Effort / Characteristics Respiratory Depth Respiratory Pattern Blood Pressure 117/76 Blood Pressure [Right Arm] Blood Pressure Mean 90 Blood Pressure Mean [Right Arm] Blood Pressure Position Blood Pressure Position [Right Arm] Pulse Oximetry 100 99 Oxygen Delivery Method Oxygen Flow Rate Sepsis Recent Fever Within 48 Hours Sepsis New/Unexplained Change in Mental Status Sepsis Action Taken by Nursing 05/31/25 22:00 05/31/25 22:00 05/31/25 22:03 Temperature Temperature Source Pulse Rate 95 H Pulse Rate [Apical] Pulse Rate from SpO2 Sensor 90 Pulse Rhythm Pulse Rhythm [Apical] Pulse Strength Pulse Strength [Apical] Respiratory Rate 19 Respiratory Effort / Characteristics Respiratory Depth Respiratory Pattern Blood Pressure 117/76 117/76 Blood Pressure [Right Arm] Blood Pressure Mean 90 90 Blood Pressure Mean [Right Arm] Blood Pressure Position Blood Pressure Position [Right Arm] Pulse Oximetry 99 Oxygen Delivery Method Oxygen Flow Rate Sepsis Recent Fever Within 48 Hours Sepsis New/Unexplained Change in Mental Status Sepsis Action Taken by Nursing 05/31/25 22:30 05/31/25 22:35 05/31/25 22:47 Temperature Temperature Source Pulse Rate 102 H 100 H Pulse Rate [Apical] Pulse Rate from SpO2 Sensor 91 H 99 H Pulse Rhythm Pulse Rhythm [Apical] Pulse Strength Pulse Strength [Apical] Respiratory Rate 19 20 Respiratory Effort / Characteristics Respiratory Depth Respiratory Pattern Blood Pressure 125/80 Blood Pressure [Right Arm] Blood Pressure Mean 104 Blood Pressure Mean [Right Arm] Blood Pressure Position Blood Pressure Position [Right Arm] Pulse Oximetry 99 100 Oxygen Delivery Method Oxygen Flow Rate Sepsis Recent Fever Within 48 Hours Sepsis New/Unexplained Change in Mental Status Sepsis Action Taken by Nursing 05/31/25 22:51 05/31/25 23:00 05/31/25 23:26 Temperature Temperature Source Pulse Rate 99 H 100 H Pulse Rate [Apical] Pulse Rate from SpO2 Sensor 99 H Pulse Rhythm Pulse Rhythm [Apical] Pulse Strength Pulse Strength [Apical] Respiratory Rate 17 Respiratory Effort / Characteristics Respiratory Depth Respiratory Pattern Blood Pressure 141/96 H Blood Pressure [Right Arm] Blood Pressure Mean 113 Blood Pressure Mean [Right Arm] Blood Pressure Position Blood Pressure Position [Right Arm] Pulse Oximetry 99 Oxygen Delivery Method Oxygen Flow Rate Sepsis Recent Fever Within 48 Hours Sepsis New/Unexplained Change in Mental Status Sepsis Action Taken by Nursing Laboratory Data 05/31/25 18:57 05/31/25 19:48 Lab Results 05/31/25 05/31/25 05/31/25 Range/Units 18:43 18:57 19:46 WBC 9.66 (4.8-10.8) K/ul RBC 4.35 (4.20-5.40) M/uL Hgb 13.8 (12.0-16.0) g/dl Hct 41.2 (37.0-47.0) % MCV 94.7 (80.0-100.0) fL MCH 31.7 (25.0-34.0) pg MCHC 33.5 (32.0-36.0) g/dL RDW Std Deviation 44.5 (36.4-46.3) fL RDW Coeff of Akiko 12.7 (11.5-14.5) % Plt Count 322 (130-400) K/uL MPV 9.5 (9.4-12.4) fL Immature Gran % (Auto) 0.3 % Neut % (Auto) 57.1 % Lymph % (Auto) 31.4 % Kleberg % (Auto) 7.2 % Eos % (Auto) 3.2 % Baso % (Auto) 0.8 % Neut # (Auto) 5.51 (1.40-6.50) K/uL Lymph # (Auto) 3.03 (1.20-3.40) K/uL Kleberg # (Auto) 0.70 H (0.11-0.59) K/uL Eos # (Auto) 0.31 (0.00-0.50) K/uL Baso # (Auto) 0.08 (0.00-0.20) K/uL Immature Gran # (Auto) 0.03 (0.01-0.20) K/uL PT 10.9 (9.0-12.0) Seconds INR 1.0 (0.9-1.1) APTT 27 (21-31) Seconds PTT Ratio 1.0 Sodium 141 (136-145) mmol/L Potassium TNP Chloride 104 (98-107) mmol/L Carbon Dioxide 27 (21-32) mmol/L Anion Gap 10 (3-11) BUN 6 (6-23) mg/dl Creatinine 0.94 (0.6-1.2) mg/dl Est Cr Clr Drug Dosing 50.3 ml/min eGFR 69.47 BUN/Creatinine Ratio 6.4 L (10-20) Glucose 124 H (70-99(Fasting)) mg/dl Lactate 1.1 (0.4-2.0) mmol/L Calcium 8.8 (8.6-10.3) mg/dl Magnesium 1.8 (1.7-2.4) mg/dl Total Bilirubin 0.4 (0.2-1.0) mg/dl AST TNP ALT 10 (7-52) U/L Alkaline Phosphatase 56 (34-104) U/L Troponin I High Sens 13.2 (0-14) pg/ml B-Natriuretic Peptide 27 (0-100) pg/ml Total Protein 6.3 (6.0-8.3) gm/dl Albumin 3.6 (3.4-5.0) gm/dl Globulin 2.7 (2.5-4.0) gm/dl Albumin/Globulin Ratio 1.3 (0.9-2) Procalcitonin 0.06 (0-0.5) ng/ml TSH 9.010 H (0.300-4.500) uIu/ml Free T4 0.82 (0.61-1.60) ng/dl 05/31/25 Range/Units 19:48 WBC (4.8-10.8) K/ul RBC (4.20-5.40) M/uL Hgb (12.0-16.0) g/dl Hct (37.0-47.0) % MCV (80.0-100.0) fL MCH (25.0-34.0) pg MCHC (32.0-36.0) g/dL RDW Std Deviation (36.4-46.3) fL RDW Coeff of Akiko (11.5-14.5) % Plt Count (130-400) K/uL MPV (9.4-12.4) fL Immature Gran % (Auto) % Neut % (Auto) % Lymph % (Auto) % Kleberg % (Auto) % Eos % (Auto) % Baso % (Auto) % Neut # (Auto) (1.40-6.50) K/uL Lymph # (Auto) (1.20-3.40) K/uL Kleberg # (Auto) (0.11-0.59) K/uL Eos # (Auto) (0.00-0.50) K/uL Baso # (Auto) (0.00-0.20) K/uL Immature Gran # (Auto) (0.01-0.20) K/uL PT (9.0-12.0) Seconds INR (0.9-1.1) APTT (21-31) Seconds PTT Ratio Sodium (136-145) mmol/L Potassium 3.0 L Chloride (98-107) mmol/L Carbon Dioxide (21-32) mmol/L Anion Gap (3-11) BUN (6-23) mg/dl Creatinine (0.6-1.2) mg/dl Est Cr Clr Drug Dosing ml/min eGFR BUN/Creatinine Ratio (10-20) Glucose (70-99(Fasting)) mg/dl Lactate (0.4-2.0) mmol/L Calcium (8.6-10.3) mg/dl Magnesium (1.7-2.4) mg/dl Total Bilirubin (0.2-1.0) mg/dl AST 13 ALT (7-52) U/L Alkaline Phosphatase (34-104) U/L Troponin I High Sens (0-14) pg/ml B-Natriuretic Peptide (0-100) pg/ml Total Protein (6.0-8.3) gm/dl Albumin (3.4-5.0) gm/dl Globulin (2.5-4.0) gm/dl Albumin/Globulin Ratio (0.9-2) Procalcitonin (0-0.5) ng/ml TSH (0.300-4.500) uIu/ml Free T4 (0.61-1.60) ng/dl Administered Medications Magnesium Sulfate/Dextrose (Magnesium Sulfate / D5w) 1 gm in 100 mls @ 50 mls/hr IV ONE STA Stop: 06/01/25 00:37 Last Admin: 05/31/25 22:48 Dose: 50 mls/hr Documented By: JORDANA Doxycycline Hyclate 100 mg/ (Dextrose) 100 mls @ 50 mls/hr IV NOW STA Stop: 06/01/25 00:58 Last Admin: 05/31/25 23:24 Dose: 50 mls/hr Documented By: JORDANA Discontinued Medications Albuterol (Albut/Ipratrop 3mg/0.5mg Neb 3 Ml Vial) 3 ml NEB NOW STA; Protocol Stop: 05/31/25 20:53 Last Admin: 05/31/25 20:59 Dose: 3 ml Documented By: JORDANA Sodium Chloride (Nss) 500 mls @ 999 mls/hr IV .Q31M ONE Stop: 05/31/25 21:22 Last Admin: 05/31/25 20:58 Dose: 999 mls/hr Documented By: JORDANA Ioversol (Optiray 320 125ml) 118 ml IV ONCE ONE Stop: 05/31/25 20:04 Last Admin: 05/31/25 20:04 Dose: 118 ml Documented By: CHINA Metoprolol Tartrate (Metoprolol Tartrate 1 Mg/Ml Vial) 2.5 mg IV NOW STA Stop: 05/31/25 20:54 Last Admin: 05/31/25 20:58 Dose: 2.5 mg Documented By: JORDANA Potassium Chloride (Potassium Chloride Crtab 20 Meq Tabcr) 40 meq PO NOW STA Stop: 05/31/25 22:18 Last Admin: 05/31/25 22:48 Dose: 40 meq Documented By: JORDANA Imaging Data Radiologist's Impression: Chest X-Ray 05/31/25 18:43 Chest radiograph, one view History: Sepsis Comparison: May 04, 2025 Findings: Single AP view of the chest performed. No focal consolidation or pleural effusion. No pneumothorax. Emphysema. Scarring of the left lower lung similar to prior. The cardiomediastinal silhouette is within normal limits. Normal pulmonary vascularity. No evidence for lymphadenopathy. No visualized bony or soft tissue abnormality. Impression: Normal chest radiograph Electronically signed by Jesus Abdul 05-31-2025 7:42 PM Chest CTA 05/31/25 18:55 Exam(s): CTA CHEST IV Amt: 118 cc opti 320 EXAM: CT Angiography Chest With Intravenous Contrast CLINICAL HISTORY: Reason for exam: PE. TECHNIQUE: Axial computed tomographic angiography images of the chest with intravenous contrast. CTDI is 11.95 mGy and DLP is 463.52 mGy-cm. Automated exposure control was utilized for the study. A dose lowering technique was utilized adhering to the principles of ALARA. MIP reconstructed images were created and reviewed. COMPARISON: 01/15/2025 FINDINGS: Pulmonary arteries: No pulmonary embolism. Aorta: No acute findings. Normal caliber. No dissection. Lungs: Severe emphysema. No consolidation. Unchanged 7 mm nodule in the left upper lobe (series 2 image 102). Pleural space: No pleural effusion. No pneumothorax. Heart: Unremarkable. Bones/joints: No acute fracture. Soft tissues: Unremarkable. Lymph nodes: Unremarkable. IMPRESSION: 1. No pulmonary embolism. 2. Severe emphysema. Electronically signed by: Hnog Chakraborty MD 05/31/25 22:02 PM Discharge Plan Visit Data Chief Complaint: Shortness of Breath/Dyspnea Stated Complaint: SOB ED Provider: Allyn Larsen Discharge Problem: Acute dyspnea, Sinus tachycardia, Acute hypokalemia Condition: Fair Forms Stand Alone Forms: My [facility] [place] [employer] Prescriptions Prescriptions: No Action albuterol sulfate 2.5 mg /3 mL (0.083 %) solution for nebulization 2.5 mg continuous nebulization 4XD PRN (Reason: Wheezing) acetaminophen 500 mg Tablet 500 mg PO Q8H PRN (Reason: Pain) metoprolol succinate 50 mg Tablet Extended Release 24 Hr 75 mg PO QAM Rx Instructions: TAKE 1 & 1/2 TABLETS IN THE MORNING ezetimibe 10 mg tablet 10 mg PO QAM budesonide 0.5 mg/2 mL suspension for nebulization 0.5 mg inhalation AMPM formoterol fumarate 20 mcg/2 mL solution for nebulization 2 ml inhalation AMPM azithromycin 500 mg tablet 500 mg PO 3XWK Qty: 30 0RF Rx Instructions: On Thursday, Thursday and Thursday only fluticasone propion-salmeterol [Wixela Inhub] 500-50 mcg/dose blister with device 1 inh inhalation BID Qty: 60 0RF midodrine 2.5 mg tablet 2.5 mg PO TID Qty: 90 0RF Rx Instructions: do not give last dose of day after 6PM or within 4 hrs of bedtime sodium chloride 7 % Solution For Nebulization 4 ml NEB BIDR Qty: 240 0RF prednisone 20 mg tablet 20 mg PO UD PRN (Reason: RESCUE KIT FOR COPD) Rx Instructions: Start taking prednisone 40 mg daily for 2 days, then take 20 mg daily for 2 days methocarbamol 500 mg tablet 500 mg PO QID PRN (Reason: muscle spasms) ipratropium-albuterol 0.5 mg-3 mg(2.5 mg base)/3 mL solution for nebulization 3 ml INHALATION QID PRN (Reason: Shortness Of Breath Or Wheezing) aspirin 81 mg Tablet,Delayed Release (Dr/Ec) 81 mg PO DAILY lorazepam 0.5 mg tablet 0.5 mg PO DAILY PRN (Reason: Anxiety) omeprazole 20 mg capsule,delayed release(DR/EC) 20 mg PO [facility] folic acid 1 mg tablet 1 mg PO QAM albuterol sulfate 90 mcg/actuation HFA aerosol inhaler 2 puff INHALATION Q4H PRN (Reason: Shortness Of Breath Or Wheezing) paroxetine HCl 40 mg tablet 40 mg PO HS pregabalin 75 mg capsule 75 mg PO TID Jardiance 10 mg tablet 10 mg PO DAILY Entresto 24-26 mg tablet 1 tab PO [facility] Repatha SureClick 140 mg/mL pen injector 140 mg SUBCUT UD Rx Instructions: every 2 weeks spironolactone 25 mg tablet 12.5 mg PO QAM prednisone 5 mg tablet 5 mg PO QAM Hold Instructions: Resume on 04/27/25. levothyroxine [Synthroid] 75 mcg tablet 75 mcg PO DAILYBB Rx Instructions: MUST BE NAMEBRAND Incruse Ellipta 62.5 mcg/actuation Blister With Device 1 inh inhalation DAILY Qty: 30 0RF montelukast 10 mg Tablet 10 mg PO HS Qty: 30 0RF Referrals Referrals: Ludy Jacobs CRNP [Primary Care Provider] -
[2025-05-31 19:12] LABS: Hematocrit (blood only) 41.2 % (37.0-47.0); Hemoglobin 13.8 g/dl (12.0-16.0); Immature Granulocytes # (auto) 0.03 K/uL (0.01-0.20); Immature Granulocytes % (auto) 0.3 %; Mean Corpuscular Hemoglobin 31.7 pg (25.0-34.0); Mean Corpuscular Volume 94.7 fL (80.0-100.0); Platelet Count 322 K/uL (130-400); RDW Standard Deviation 44.5 fL (36.4-46.3); Red Blood Count 4.35 M/uL (4.20-5.40); White Blood Count 9.66 K/ul (4.8-10.8)
[2025-05-31 19:44] LABS: Alanine Aminotransferase 10 U/L (7-52); Albumin Globulin Ratio 1.3 (0.9-2); Alkaline Phosphatase 56 U/L (34-104); Anion Gap 10 (3-11); Bilirubin,Total 0.4 mg/dl (0.2-1.0); Blood Urea Nitrogen 6 mg/dl (6-23); Calcium 8.8 mg/dl (8.6-10.3); Carbon Dioxide 27 mmol/L (21-32); Chloride 104 mmol/L (98-107); Creatinine Clr Calc Pharmacy 50.3 ml/min; Globulin 2.7 gm/dl (2.5-4.0); Glucose 124 mg/dl (70-99(Fasting)); Magnesium 1.8 mg/dl (1.7-2.4); Sodium 141 mmol/L (136-145); Total Protein 6.3 gm/dl (6.0-8.3)
--- NOTE | 2025-05-31 19:44 | XRay Report ---
Chest radiograph, one view History: Sepsis Comparison: May 04, 2025 Findings: Single AP view of the chest performed. No focal consolidation or pleural effusion. No pneumothorax. Emphysema. Scarring of the left lower lung similar to prior. The cardiomediastinal silhouette is within normal limits. Normal pulmonary vascularity. No evidence for lymphadenopathy. No visualized bony or soft tissue abnormality. Impression: Normal chest radiograph Electronically signed by Jesus Abdul 05-31-2025 7:42 PM
[2025-05-31 19:49] LABS: INR 1.0 (0.9-1.1); Partial Thromboplastin Time 27 Seconds (21-31); Prothrombin Time 10.9 Seconds (9.0-12.0)
[2025-05-31] MEDS: OPTIRAY 320 125ml IV ONE (20:04)
[2025-05-31 20:23] LABS: Potassium 3.0 mmol/L (3.5-5.1)
[2025-05-31] MEDS: METOPROLOL TARTRATE 1 MG/ML VIAL IV STA (20:58)
[2025-05-31] MEDS: SODIUM CHLORIDE 0.9% 500 ML IV ONE (20:58)
[2025-05-31] MEDS: ALBUT/IPRATROP 3MG/0.5MG NEB 3 ML VIAL NEB STA (20:59)
[2025-05-31 21:48] LABS: Thyroid Stimulating Hormone 9.010 uIu/ml (0.300-4.500)
--- NOTE | 2025-05-31 22:03 | CT Scan Report ---
Exam(s): CTA CHEST IV Amt: 118 cc opti 320 EXAM: CT Angiography Chest With Intravenous Contrast CLINICAL HISTORY: Reason for exam: PE. TECHNIQUE: Axial computed tomographic angiography images of the chest with intravenous contrast. CTDI is 11.95 mGy and DLP is 463.52 mGy-cm. Automated exposure control was utilized for the study. A dose lowering technique was utilized adhering to the principles of ALARA. MIP reconstructed images were created and reviewed. COMPARISON: 01/15/2025 FINDINGS: Pulmonary arteries: No pulmonary embolism. Aorta: No acute findings. Normal caliber. No dissection. Lungs: Severe emphysema. No consolidation. Unchanged 7 mm nodule in the left upper lobe (series 2 image 102). Pleural space: No pleural effusion. No pneumothorax. Heart: Unremarkable. Bones/joints: No acute fracture. Soft tissues: Unremarkable. Lymph nodes: Unremarkable. IMPRESSION: 1. No pulmonary embolism. 2. Severe emphysema. Electronically signed by: Hong Chakraborty MD 05/31/25 22:02 PM
--- NOTE | 2025-05-31 22:28 | History & Physical Report ---
Date of Service May 31, 2025 Assessment & Plan (1) Sepsis: Plan: Assessment and plan below following discussion of case with ED provider and reviewing patient history/pertinent normal/abnormal diagnostic test results. Sepsis Secondary to COPD exacerbation/complicated bronchitis chronic respiratory failure secondary to steroid-dependent COPD and azithromycin prophylaxis on home O2 Recurrent admissions chronic diastolic heart failure (EF 60 to 65%, TTE 2024), patient euvolemic to dry hx CAD status post angioplasty/stent mild MR history recurrent spontaneous pneumothorax status post thoracotomy hypotension on midodrine Hypothyroidism, TSH noted to be elevated cerebellar angioma as per records past tobacco abuse Admit to medical telemetry CS, Doxycycline nebs RTC, continue current prednisone home dose Palliative care consult as per pulmonology recommendations from recent confinement RE: discussed goals of care given recurrent admissions for COPD exacerbation Case management consult re: assistance contacting patient's pharmacy to to facilitate procurement of meds on discharge DVT prophylaxis. Lovenox subcu. Full code Text document was generated using [employer] voice recognition software. It may contain grammatical or spelling errors. Kindly contact undersigned for clarification of any documentation item in question. History of Present Illness Chief Complaint: Worsening cough, ran out of pills Primary Care Provider: ALIYAH Goldman History obtained from patient and records. Medical history significant for chronic diastolic heart failure (EF 60 to 65%, TTE 2024), CAD status post angioplasty/stent, mild MR, chronic respiratory failure secondary to steroid-dependent COPD and azithromycin prophylaxis on home O2, history recurrent spontaneous pneumothorax status post thoracotomy, hypertension, hypotension on midodrine, gastroparesis, neurofibromatosis, cerebellar angioma as per records, IBS constipation predominant, past tobacco abuse 4 admissions this year for COPD exacerbation. Recent confinement last month. Pulmonology recommended palliative care consultation to discuss goals of care. Patient has not seen PCP on follow-up since discharge. Unable to meet up with home care nurse. Patient ran out of home medications a few days ago. Has not been able to receive shipments to home the last couple months since switching to mail order pharmacy. Patient wants to cancel mail order pharmacy arrangement and go back to prior pharmacy pickup arrangement. Patient experiencing difficulty relating this to outpatient providers on the phone as per patient account. Worsening junky cough symptoms the last few days with SOB. No chest pain or abdominal pain. Some nausea symptoms. Denies aspiration. Temperature of 101 at home. Patient feels better after Solu-Medrol and neb treatment administered at the ER. Medical History as above Surgical History : Current section, cervical conization, diagnostic laparoscopy, BTL, tonsillectomy, ganglion cyst removal, hernia repair, lung thoracotomy Family History : Rheumatoid arthritis, lymphoma, diabetes, heart disease, stroke Personal/Social history : Past tobacco abuse, occasional EtOH intake, disabled Allergies Allergy/AdvReac Type Severity Reaction Status Date / Time adhesive tape Allergy Intermediate SKIN TEARS Verified 05/31/25 21:05 Sulfa (Sulfonamide Allergy Intermediate HIVES Verified 05/31/25 21:05 Antibiotics) adhesive Allergy Mild BANDAIDS : Verified 05/31/25 21:05 SKIN ABRASION ibuprofen AdvReac Severe HX KIDNEY Verified 05/31/25 21:05 FAILURE ketorolac [From Toradol] AdvReac Severe HX KIDNEY Verified 05/31/25 21:05 FAILURE NSAIDS (Non-Steroidal AdvReac Severe HX KIDNEY Verified 05/31/25 21:05 Anti-Inflamma FAILURE prednisone AdvReac Severe Patient Verified 05/31/25 21:05 Reports Contraindication in Kidney Failure/SEE NOTES rosuvastatin [From Crestor] AdvReac Severe Weakness, Verified 05/31/25 21:05 RHABDOMYLOSIS, ACUTE RENAL FAILURE tramadol AdvReac Severe Seizure Verified 05/31/25 21:05 meperidine AdvReac Intermediate NOT A Verified 05/31/25 21:05 VERIFIED RXN: MOOD SWINGS Home Medications Medication Instructions Recorded Confirmed Type albuterol sulfate 90 mcg/actuation 2 puff inhalation Q4H PRN 11/11/24 05/31/25 History aerosol inhaler Shortness Of Breath Or Wheezing aspirin 81 mg tablet,delayed 81 mg PO DAILY 11/11/24 05/31/25 History release empagliflozin 10 mg tablet 10 mg PO DAILY 11/11/24 05/31/25 History (Jardiance) evolocumab 140 mg/mL subcutaneous 140 mg subcut UD 11/11/24 05/31/25 History pen injector (Repatha Bhaskar) folic acid 1 mg tablet 1 mg PO QAM 11/11/24 05/31/25 History ipratropium 0.5 mg-albuterol 3 mg 3 ml inhalation QID PRN Shortness 11/11/24 05/31/25 History (2.5 mg base)/3 mL nebulization Of Breath Or Wheezing soln lorazepam 0.5 mg tablet 0.5 mg PO DAILY PRN Anxiety 11/11/24 05/31/25 History methocarbamol 500 mg tablet 500 mg PO QID PRN muscle spasms 11/11/24 05/31/25 History omeprazole 20 mg capsule,delayed 20 mg PO AMHS 11/11/24 05/31/25 History release paroxetine HCl 40 mg tablet 40 mg PO HS 11/11/24 05/31/25 History pregabalin 75 mg capsule 75 mg PO TID 11/11/24 05/31/25 History sacubitril 24 mg-valsartan 26 mg 1 tab PO AMHS 11/11/24 05/31/25 History tablet (Entresto) levothyroxine 75 mcg tablet 75 mcg PO DAILYBB 01/15/25 05/31/25 History (Synthroid) prednisone 5 mg tablet 5 mg PO QAM 01/15/25 05/31/25 History spironolactone 25 mg tablet 12.5 mg PO QAM 01/15/25 05/31/25 History montelukast 10 mg tablet 10 mg PO HS #30 tabs 01/31/25 05/31/25 Rx umeclidinium 62.5 mcg/actuation 1 inh inhalation DAILY #30 ea 01/31/25 05/31/25 Rx blister powder for inhalation (Incruse Ellipta) albuterol sulfate 2.5 mg/3 mL 2.5 mg continuous nebulization 4XD 04/21/25 05/31/25 History (0.083 %) solution for nebulization PRN Wheezing acetaminophen 500 mg tablet 500 mg PO Q8H PRN Pain 05/04/25 05/31/25 History budesonide 0.5 mg/2 mL suspension 0.5 mg inhalation AMPM 05/04/25 05/31/25 History for nebulization ezetimibe 10 mg tablet 10 mg PO QAM 05/04/25 05/31/25 History formoterol fumarate 20 mcg/2 mL 2 ml inhalation AMPM 05/04/25 05/31/25 History solution for nebulization metoprolol succinate 50 mg 75 mg PO QAM 05/04/25 05/31/25 History tablet,extended release 24 hr azithromycin 500 mg tablet 500 mg PO 3XWK #30 tabs 05/07/25 05/31/25 Rx fluticasone 500 mcg-salmeterol 50 1 inh inhalation BID #60 ea 05/07/25 05/31/25 Rx mcg/dose blistr powdr for inhalation (Wixela Inhub) midodrine 2.5 mg tablet 2.5 mg PO TID #90 tabs 05/07/25 05/31/25 Rx sodium chloride 7 % for 4 ml NEB BIDR #240 mL 05/07/25 05/31/25 Rx nebulization prednisone 20 mg tablet 20 mg PO UD PRN RESCUE KIT FOR COPD 05/31/25 05/31/25 History Past Med/Surg History Problem List (Updated 05/31/25 @ 23:31 by Allyn Larsen MD) Acute hypokalemia (Acute) Sinus tachycardia (Acute) Acute dyspnea (Acute) Chronic bronchitis Hypothyroid Depression with anxiety GERD (gastroesophageal reflux disease) COPD with acute exacerbation (Acute) Acute and chronic respiratory failure (Acute) Sepsis Counseling regarding advanced directives and goals of care Palliative care by specialist Hypoxemic respiratory failure, chronic COPD exacerbation (Acute) SOB (shortness of breath) (Acute) Chronic heart failure with preserved ejection fraction Asthma exacerbation in COPD (Acute) Acute metabolic encephalopathy (Acute) Left lower lobe pneumonia Encounter for pre-operative examination Acute on chronic heart failure with reduced ejection fraction and diastolic dysfunction CKD (chronic kidney disease), stage III (Acute) Acute on chronic respiratory failure with hypoxia DVT prophylaxis Pulmonary nodule Pericardial effusion Hypotension Bacteremia Prolonged QT interval Hypertension Diarrhea (Acute) Lab test negative for COVID-19 virus (Acute) Nausea & vomiting (Acute) Colitis (Acute) Acute dehydration (Acute) Electrolyte abnormality Hypomagnesemia (Acute) Nausea and vomiting (Acute) Hypokalemia (Acute) Generalized abdominal pain (Acute) Pericardial effusion Left ventricular systolic dysfunction UNRULY (acute kidney injury) Chronic pericarditis with effusion UTI (urinary tract infection) Acute respiratory failure with hypercapnia Acute exacerbation of chronic obstructive pulmonary disease (Acute) Acute respiratory distress (Acute) Influenza A (Acute) Hypotension Volume overload Acute respiratory failure with hypoxia Anxiety Depression Electrolyte abnormality Transaminitis DVT prophylaxis COPD (chronic obstructive pulmonary disease) (Acute) HLD (hyperlipidemia) Rhabdomyolysis Acute renal failure Pulmonary nodule Nausea (Acute) Hypokalemia (Acute) COPD exacerbation (Acute) Wrist pain, right (Acute) Seizure (Acute) Influenza A (Acute) Hypoxia (Acute) Hypokalemia (Acute) Hypokalemia (Acute) Hypokalemia (Acute) COPD exacerbation (Acute) COPD exacerbation (Acute) Bronchitis (Acute) Asthma exacerbation in COPD (Acute) Acute bronchitis (Acute) Acute bronchitis (Acute) Cellulitis (Acute) CAD (coronary artery disease) Hypothyroidism HFrEF (heart failure with reduced ejection fraction) hx Medical History Shortness of breath Elevated troponin Abnormal ECG COPD exacerbation Pneumonia Emphysema/COPD daily nebulizer, and prn neb and inh; f/u pulmonology at [facility] and [place] 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 History of colitis Decreased mobility lt arm>CRPS PTSD (post-traumatic stress disorder) Unique anesthetic considerations on preoperative anesthesia assessment high level anxiety when sedated, hx intubation w Flu A....PTSD, "gets scared when put to sleep" History of colon polyps Low blood pressure currently on midodrine; f/u [facility] cardio at and [place] History of influenza INFLUENZA A, February 2022 - [facility] hospitalization, "intubated while in the hospital" Pain syndrome, chronic chronic regional pain syndrome : left arm/received lidocaine injections in [place]/every three months/due may 2023. left limb restriction. History of renal failure "from her crestor medication" Oxygen dependent 2 L o2 continuous. Emphysema lung Statin intolerance Chronic pain see pain clinic for lt arm and neck, @[facility] Anxiety Shortness of breath chronic Neurofibromatosis Hypokalemia HX / CAN NOT TOLERATE PO POTASSIUM PILLS DUE TO GASTROPARESIS Hx of bronchitis Myocardial infarction 2010 - CHEST PAIN -[facility] ER AND HAD HEART CATH WITH ONE STENT (BARE METAL) FOLLOW WITH [facility] Seizure 2013 ONLY HAD ONE -- ADMITTED TO [facility] --- METABOLIC RELATED ---- NO MEDICATION Pneumothorax AGE 24 - SURGERY TO REPAIR THE LEFT SIDE AND CHEMICAL TREATMENT ON THE RIGHT SIDE AT [place] Gastroparesis Cavernous hemangioma of brain stable Surgical History Hx of right cataract extraction History of heart artery stent 2010, [place], [facility], x1 stent; f/u [facility] cardio at History of endoscopy Hx of colonoscopy Hx of vaginal surgery 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 Hx of section X2 Hx of cardiac cath 2011, [place], [facility], x1 stent; f/u [facility] History of hernia repair UMBILICAL Family History Father Lung disease Severe emphysema, pneumothorax Brother Family history of diabetes mellitus Brother Family history of diabetes mellitus Family/Other Family history of cancer Aunt Family history of colonic polyps Grandfather Family history of lymphoma Social History Smoking Status: Former smoker Tobacco Type: Cigarettes Age Started Using Tobacco: 11; Age Quit Using Tobacco: 53; packs per day: 1; Cigarettes Per Day: has 1 occasionally; Second Hand Exposure: No; Do You Dip or Chew Tobacco: No; Hx Alcohol Use: No Hx Substance Use: No Preferred Language: Bangladeshi Communication Ability: Effective 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 Flap 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 Machine Operator Required: Yes and No Beliefs That Will Affect Care: None marital status: Current Living Situation: Significant Other Current Living Situation Comment: lives at home with How many Children do You have: 3 Feels Safe at Home: Yes Assistive Devices: Nebulizer, Oxygen - Continuous and Walker Review of Systems Review of Systems: As per HPI, all other systems reviewed and negative Physical Exam Physical Exam: GENERAL: Slightly anxious, pleasant, no respiratory distress SKIN: Normal color, warm HEENT: [place] palpebral conjunctivae, no ptosis, dry buccal mucosa, nasal cannula in place NECK : Supple, no tenderness CHEST : Decreased breath sounds, no wheezes, no tenderness HEART : RRR, systolic murmur ABDOMEN: no distention, nontender EXTREMITIES : No LE swelling/tenderness, no other conspicuous deformities noted NEUROLOGIC : Coherent, no facial asymmetry, no other gross focality Results & Data Results & Data Vital Signs (Past 12 Hours) Vital Signs Temp Pulse Pulse Resp BP BP Pulse Ox 05/31/25 22:03 95 H 19 99 05/31/25 22:00 117/76 05/31/25 22:00 117/76 05/31/25 22:00 117/76 05/31/25 21:57 98 H 15 99 05/31/25 21:45 96 H 12 100 05/31/25 21:33 98 H 17 99 05/31/25 21:30 154/106 H 05/31/25 21:18 97 H 22 100 05/31/25 21:00 116 H 14 98 05/31/25 21:00 167/119 H 05/31/25 21:00 167/119 H 05/31/25 21:00 167/119 H 05/31/25 20:39 114 H 17 99 05/31/25 20:33 161/109 H 05/31/25 20:30 163/107 H 05/31/25 20:30 163/107 H 05/31/25 20:07 176/125 H 05/31/25 20:07 176/125 H 05/31/25 19:48 113 H 17 99 05/31/25 19:30 154/96 H 05/31/25 19:30 154/96 H 05/31/25 19:30 117 H 17 99 05/31/25 19:21 120 H 14 99 05/31/25 19:19 144/105 H 05/31/25 19:19 144/105 H 05/31/25 19:19 144/105 H 05/31/25 19:18 122 H 14 99 05/31/25 19:08 119 H 05/31/25 19:06 120 H 16 144/105 H 99 05/31/25 18:43 120 H 20 98 05/31/25 18:43 05/31/25 18:40 120 H 18 160/127 H 99 05/31/25 18:40 99 05/31/25 18:40 36.9 C 127 H 17 160/127 H 99 O2 Del Method O2 Flow Rate 05/31/25 22:03 05/31/25 22:00 05/31/25 22:00 05/31/25 22:00 05/31/25 21:57 05/31/25 21:45 05/31/25 21:33 05/31/25 21:30 05/31/25 21:18 05/31/25 21:00 05/31/25 21:00 05/31/25 21:00 05/31/25 21:00 05/31/25 20:39 05/31/25 20:33 05/31/25 20:30 05/31/25 20:30 05/31/25 20:07 05/31/25 20:07 05/31/25 19:48 05/31/25 19:30 05/31/25 19:30 05/31/25 19:30 05/31/25 19:21 05/31/25 19:19 05/31/25 19:19 05/31/25 19:19 05/31/25 19:18 05/31/25 19:08 05/31/25 19:06 05/31/25 18:43 Nasal Cannula 3 05/31/25 18:43 Nasal Cannula 3 05/31/25 18:40 Nasal Cannula 3 05/31/25 18:40 Nasal Cannula 3 05/31/25 18:40 Nasal Cannula 3 Laboratory Results Laboratory Results WBC 9.66 K/ul (4.8-10.8) 05/31/25 18:57 RBC 4.35 M/uL (4.20-5.40) 05/31/25 18:57 Hgb 13.8 g/dl (12.0-16.0) 05/31/25 18:57 Hct 41.2 % (37.0-47.0) 05/31/25 18:57 MCV 94.7 fL (80.0-100.0) 05/31/25 18:57 MCH 31.7 pg (25.0-34.0) 05/31/25 18:57 MCHC 33.5 g/dL (32.0-36.0) 05/31/25 18:57 RDW Std Deviation 44.5 fL (36.4-46.3) 05/31/25 18:57 RDW Coeff of Akiko 12.7 % (11.5-14.5) 05/31/25 18:57 Plt Count 322 K/uL (130-400) 05/31/25 18:57 MPV 9.5 fL (9.4-12.4) 05/31/25 18:57 Immature Gran % (Auto) 0.3 % 05/31/25 18:57 Neut % (Auto) 57.1 % 05/31/25 18:57 Lymph % (Auto) 31.4 % 05/31/25 18:57 [place] % (Auto) 7.2 % 05/31/25 18:57 Eos % (Auto) 3.2 % 05/31/25 18:57 Baso % (Auto) 0.8 % 05/31/25 18:57 Neut # (Auto) 5.51 K/uL (1.40-6.50) 05/31/25 18:57 Lymph # (Auto) 3.03 K/uL (1.20-3.40) 05/31/25 18:57 [place] # (Auto) 0.70 K/uL (0.11-0.59) H 05/31/25 18:57 Eos # (Auto) 0.31 K/uL (0.00-0.50) 05/31/25 18:57 Baso # (Auto) 0.08 K/uL (0.00-0.20) 05/31/25 18:57 Immature Gran # (Auto) 0.03 K/uL (0.01-0.20) 05/31/25 18:57 PT 10.9 Seconds (9.0-12.0) 05/31/25 18:57 INR 1.0 (0.9-1.1) 05/31/25 18:57 APTT 27 Seconds (21-31) 05/31/25 18:57 PTT Ratio 1.0 05/31/25 18:57 Sodium 141 mmol/L (136-145) 05/31/25 18:57 Potassium 3.0 mmol/L (3.5-5.1) L 05/31/25 19:48 Chloride 104 mmol/L (98-107) 05/31/25 18:57 Carbon Dioxide 27 mmol/L (21-32) 05/31/25 18:57 Anion Gap 10 (3-11) 05/31/25 18:57 BUN 6 mg/dl (6-23) 05/31/25 18:57 Creatinine 0.94 mg/dl (0.6-1.2) 05/31/25 18:57 Est Cr Clr Drug Dosing 50.3 ml/min 05/31/25 18:57 eGFR 69.47 05/31/25 18:57 BUN/Creatinine Ratio 6.4 (10-20) L 05/31/25 18:57 Glucose 124 mg/dl (70-99(Fasting)) H 05/31/25 18:57 Lactate 1.1 mmol/L (0.4-2.0) 05/31/25 19:46 Calcium 8.8 mg/dl (8.6-10.3) 05/31/25 18:57 Magnesium 1.8 mg/dl (1.7-2.4) 05/31/25 18:57 Total Bilirubin 0.4 mg/dl (0.2-1.0) 05/31/25 18:57 AST 13 U/L (13-39) 05/31/25 19:48 ALT 10 U/L (7-52) 05/31/25 18:57 Alkaline Phosphatase 56 U/L (34-104) 05/31/25 18:57 Troponin I High Sens 13.2 pg/ml (0-14) 05/31/25 18:57 B-Natriuretic Peptide 27 pg/ml (0-100) 05/31/25 18:43 Total Protein 6.3 gm/dl (6.0-8.3) 05/31/25 18:57 Albumin 3.6 gm/dl (3.4-5.0) 05/31/25 18:57 Globulin 2.7 gm/dl (2.5-4.0) 05/31/25 18:57 Albumin/Globulin Ratio 1.3 (0.9-2) 05/31/25 18:57 Procalcitonin 0.06 ng/ml (0-0.5) 05/31/25 18:57 TSH 9.010 uIu/ml (0.300-4.500) H 05/31/25 18:57 Impressions Chest X-Ray 05/31/25 18:43 Chest radiograph, one view History: Sepsis Comparison: May 04, 2025 Findings: Single AP view of the chest performed. No focal consolidation or pleural effusion. No pneumothorax. Emphysema. Scarring of the left lower lung similar to prior. The cardiomediastinal silhouette is within normal limits. Normal pulmonary vascularity. No evidence for lymphadenopathy. No visualized bony or soft tissue abnormality. Impression: Normal chest radiograph Electronically signed by Jesus Abdul 05-31-2025 7:42 PM Chest CTA 05/31/25 18:55 Exam(s): CTA CHEST IV Amt: 118 cc opti 320 EXAM: CT Angiography Chest With Intravenous Contrast CLINICAL HISTORY: Reason for exam: PE. TECHNIQUE: Axial computed tomographic angiography images of the chest with intravenous contrast. CTDI is 11.95 mGy and DLP is 463.52 mGy-cm. Automated exposure control was utilized for the study. A dose lowering technique was utilized adhering to the principles of ALARA. MIP reconstructed images were created and reviewed. COMPARISON: 01/15/2025 FINDINGS: Pulmonary arteries: No pulmonary embolism. Aorta: No acute findings. Normal caliber. No dissection. Lungs: Severe emphysema. No consolidation. Unchanged 7 mm nodule in the left upper lobe (series 2 image 102). Pleural space: No pleural effusion. No pneumothorax. Heart: Unremarkable. Bones/joints: No acute fracture. Soft tissues: Unremarkable. Lymph nodes: Unremarkable. IMPRESSION: 1. No pulmonary embolism. 2. Severe emphysema. Electronically signed by: Hong Chakraborty MD 05/31/25 22:02 PM Diagnostic Findings EKG as per my interpretation :Rate 130, sinus tachycardia, normal axis, incomplete RBBB, T wave abnormalities inferior leads, PVCs
[2025-05-31] MEDS: POTASSIUM CHLORIDE CRTAB 20 MEQ TABCR PO STA (22:48)
[2025-05-31] MEDS: MAGNESIUM SULFATE / D5W 1 GM/100 ML BAG IV STA (22:48)
[2025-05-31] MEDS: DOXYCYCLINE HYCLATE 100 MG in DEXTROSE 5% MINI-B 100 ML IV STA (23:24)
[2025-06-01] MEDS ORDERED: PROMETHAZINE 6.25 MG/50.25 ML BAG IV PRN (00:06)
[2025-06-01] MEDS: DOXYCYCLINE HYCLATE 100 MG CAP PO STA (00:10)
[2025-06-01] MEDS: NSS + 20MEQ KCL 20 MEQ/1,000 ML BAG IV STA (00:26)
[2025-06-01] MEDS: POTASSIUM CHLORIDE CRTAB 20 MEQ TABCR PO ONE (00:28)
[2025-06-01 04:28] LABS: Hematocrit (blood only) 37.7 % (37.0-47.0); Hemoglobin 12.4 g/dl (12.0-16.0); Immature Granulocytes # (auto) 0.02 K/uL (0.01-0.20); Immature Granulocytes % (auto) 0.2 %; Mean Corpuscular Hemoglobin 32.2 pg (25.0-34.0); Mean Corpuscular Volume 97.9 fL (80.0-100.0); Platelet Count 276 K/uL (130-400); RDW Standard Deviation 45.5 fL (36.4-46.3); Red Blood Count 3.85 M/uL (4.20-5.40); White Blood Count 8.57 K/ul (4.8-10.8)
[2025-06-01 04:43] LABS: Anion Gap 4.0 (3-11); Blood Urea Nitrogen 8.0 mg/dl (6-23); Calcium 7.7 mg/dl (8.6-10.3); Carbon Dioxide 29.0 mmol/L (21-32); Chloride 108.0 mmol/L (98-107); Creatinine Clr Calc Pharmacy 44.2 ml/min; Glucose 128.0 mg/dl (70-99(Fasting)); Potassium 3.6 mmol/L (3.5-5.1); Sodium 141.0 mmol/L (136-145)
[2025-06-01] MEDS: LEVOTHYROXINE SODIUM 75 MCG TABLET PO SCH (06:45)
[2025-06-01] MEDS: SODIUM CHLOR 7% 4 ML NEB NEB SCH (07:39)
[2025-06-01] MEDS: IPRATROPIUM BROMIDE NEB SOLN 0.02% 0.5MG/2.5ML VIAL INH SCH (07:39)
[2025-06-01] MEDS: LEVALBUTEROL 1.25 MG/3 ML NEB NEB SCH (07:39)
[2025-06-01] MEDS: BUDESONIDE 0.5 MG/2 ML VIAL (PULMICORT) INH SCH (07:39)
[2025-06-01] MEDS: PREGABALIN 75 MG CAP PO SCH (08:11)
[2025-06-01] MEDS: EZETIMIBE 10 MG TAB PO SCH (08:12)
[2025-06-01] MEDS: VALSARTAN/SACUBITRIL 26/24MG TAB PO SCH (08:12)
[2025-06-01] MEDS: ENOXAPARIN INJ 40 MG/0.4 ML SYR SQ SCH (08:12)
[2025-06-01] MEDS: MIDODRINE HCL 2.5 MG TAB PO SCH (08:13)
[2025-06-01] MEDS: METOPROLOL SUCC 25MG EXT REL TAB PO SCH (08:13)
[2025-06-01] MEDS: EMPAGLIFLOZIN 10 MG TAB PO SCH (08:14)
[2025-06-01] MEDS: FOLIC ACID 1 MG TAB PO SCH (08:14)
[2025-06-01] MEDS: ASPIRIN 81 MG ECTAB PO SCH (08:14)
[2025-06-01] MEDS: SPIRONOLACTONE 12.5 MG TAB PO SCH (08:15)
[2025-06-01] MEDS: METHOCARBAMOL 500 MG TABLET PO PRN (08:15)
--- NOTE | 2025-06-01 08:24 | Palliative Care Consultation ---
Date of Consultation June 01, 2025 Assessment & Plan (1) Palliative care by specialist: met with pt a bedside, no visitors present. Introduced Palliative Medicine and explained our role in advanced care planning, symptom management and navigation through the progression of life limiting disease. Patient was receptive to palliative services for goals of care discussions. Reviewed we are different from hospice, a home health nurse visiting service. (2) Counseling regarding advanced directives and goals of care: met with pt for 35 minutes to discuss nature of COPD as a progressively debilitating disease, pt values and goals of care, importance of completing advanced directive, and roles/responsibilities of HCPOA. Ultimately pt shared that being at home is of highest value to her and although she would not want to be on ventilator for "fpc" at this time she wants to be intubated if necessary. Patient currently exhibits decisional capacity based on the ability to convey understanding of personal PMHx, current medical condition, treatment options nor the risks / benefits/ potential outcomes of accepting/declining those options, and ability to make decisions based on such knowledge. Hospital does not have written documentation of patient wishes concerning her chosen proxy for medical decisions. Per PA [id number], in absence of written documentation of patient wishes, pt's proxy for medical decisions would be her spouse Klaus Brown and her adult children from previous marriage Cornelia Salmeron and Devonte Salmeron with equal authority. She verbalized that she does not wish to have Devonte making decisions for her due to his addiction and impulsivity issues. Pt verbalized that she trusts her daughter Alma Delia Brown ([phone]) to serve as primary proxy and her daughter Cornelia Salmeron ([phone]) as secondary proxy for medical decisions in the event she lacks decisional capacity. Pt she does not require a proxy for medical decisions. Discussed code status and helped [] understand that CPR is only done after a person has and involves uncomfortable and invasive procedures that, if successful. have high risk of multiple complications including but not limited to rib fractures, pneumo/hemothorax, UNRULY, ventilator dependence, anoxic brain injury, and fpc/permanent cognitive and functional deficits. CPR survival: Only about 10% of patients who have [id number] sudden cardiac arrest survive to hospital discharge, with many survivors having neurologic impairment. This rate is even lower among patients with serious coexisting conditions, ie chance of survival to hospital discharge for in- hospital CPR in older people is low to moderate (15%) and decreases with age, comorbidities, performance status and frailty: for pts > 70 yo, more than half of the patients who initially survived resuscitation in the hospital before hospital discharge. The pooled survival to discharge after in-hospital CPR was 18% for patients between 70 and 79 years old, 15% for patients between 80 and 89 years old and 11% for patients of 90 years and older. (Lucho LEWISY, Silvino LJ, Harpreet F, et al. Trends in short- and long-term survival among [id number] cardiac arrest patients alive at hospital arrival. Circulation 2014;130:1883- 1890. AND Islily C, Katie T, Nay R, et al. Performance of clinical risk scores to predict mortality and neurological outcome in cardiac arrest patients. Resuscitation 2019;136:21-29.) Pt shared that she still wants all done to preserve her life, but if she were to while in our care she does NOT wish for resuscitation. Code status updated accordingly. encouraged ongoing family discussion as well as completion of AD (3) SOB (shortness of breath): pt states she is comfortable at this time and attributes her SOB to difficulty obtaining her prescribed medications. CM and attending team aware and addressing this. Plan as above History of Present Illness Reason for Consultation: goals of care Requesting Physician: Mir Carreon MD Attending Physician: Mir Carreon MD History of Present Illness Ms. Brown is a 59y with PMHX significant for dHFpEF (EF 60 to 65%, TTE 2024), CAD status post angioplasty/stent, mild MR, chronic respiratory failure secondary to steroid-dependent COPD and azithromycin prophylaxis on home O2, history recurrent spontaneous pneumothorax status post thoracotomy, hypertension, hypotension on midodrine, gastroparesis, neurofibromatosis, cerebellar angioma as per records, IBS constipation predominant, past tobacco abuse who presented to ED for SOB after several days without her regular medications due to access issues. Frequent admissions over past several months for COPD exacerbation (05/04- ; 04/11-; 01/24-10/2025; 01/15-; 11/11-; 10/12-; 09/18 - 09/23/2024; and 08/27-). Pulmonology recommended palliative care consultation to discuss goals of care. Allergies Allergy/AdvReac Type Severity Reaction Status Date / Time adhesive tape Allergy Intermediate SKIN TEARS Verified 05/31/25 21:05 Sulfa (Sulfonamide Allergy Intermediate HIVES Verified 05/31/25 21:05 Antibiotics) adhesive Allergy Mild BANDAIDS : Verified 05/31/25 21:05 SKIN ABRASION ibuprofen AdvReac Severe HX KIDNEY Verified 05/31/25 21:05 FAILURE ketorolac [From Toradol] AdvReac Severe HX KIDNEY Verified 05/31/25 21:05 FAILURE NSAIDS (Non-Steroidal AdvReac Severe HX KIDNEY Verified 05/31/25 21:05 Anti-Inflamma FAILURE prednisone AdvReac Severe Patient Verified 05/31/25 21:05 Reports Contraindication in Kidney Failure/SEE NOTES rosuvastatin [From Crestor] AdvReac Severe Weakness, Verified 05/31/25 21:05 RHABDOMYLOSIS, ACUTE RENAL FAILURE tramadol AdvReac Severe Seizure Verified 05/31/25 21:05 meperidine AdvReac Intermediate NOT A Verified 05/31/25 21:05 VERIFIED RXN: MOOD SWINGS Home Medications Medication Instructions Recorded Confirmed Type albuterol sulfate 90 mcg/actuation 2 puff inhalation Q4H PRN 11/11/24 05/31/25 History aerosol inhaler Shortness Of Breath Or Wheezing aspirin 81 mg tablet,delayed 81 mg PO DAILY 11/11/24 05/31/25 History release empagliflozin 10 mg tablet 10 mg PO DAILY 11/11/24 05/31/25 History (Jardiance) evolocumab 140 mg/mL subcutaneous 140 mg subcut UD 11/11/24 05/31/25 History pen injector (Repatha SureClick) folic acid 1 mg tablet 1 mg PO QAM 11/11/24 05/31/25 History ipratropium 0.5 mg-albuterol 3 mg 3 ml inhalation QID PRN Shortness 11/11/24 05/31/25 History (2.5 mg base)/3 mL nebulization Of Breath Or Wheezing soln lorazepam 0.5 mg tablet 0.5 mg PO DAILY PRN Anxiety 11/11/24 05/31/25 History methocarbamol 500 mg tablet 500 mg PO QID PRN muscle spasms 11/11/24 05/31/25 History omeprazole 20 mg capsule,delayed 20 mg PO AMHS 11/11/24 05/31/25 History release paroxetine HCl 40 mg tablet 40 mg PO HS 11/11/24 05/31/25 History pregabalin 75 mg capsule 75 mg PO TID 11/11/24 05/31/25 History sacubitril 24 mg-valsartan 26 mg 1 tab PO AMHS 11/11/24 05/31/25 History tablet (Entresto) levothyroxine 75 mcg tablet 75 mcg PO DAILYBB 01/15/25 05/31/25 History (Synthroid) prednisone 5 mg tablet 5 mg PO QAM 01/15/25 05/31/25 History spironolactone 25 mg tablet 12.5 mg PO QAM 01/15/25 05/31/25 History montelukast 10 mg tablet 10 mg PO HS #30 tabs 01/31/25 05/31/25 Rx umeclidinium 62.5 mcg/actuation 1 inh inhalation DAILY #30 ea 01/31/25 05/31/25 Rx blister powder for inhalation (Incruse Ellipta) albuterol sulfate 2.5 mg/3 mL 2.5 mg continuous nebulization 4XD 04/21/25 05/31/25 History (0.083 %) solution for nebulization PRN Wheezing acetaminophen 500 mg tablet 500 mg PO Q8H PRN Pain 05/04/25 05/31/25 History budesonide 0.5 mg/2 mL suspension 0.5 mg inhalation AMPM 05/04/25 05/31/25 History for nebulization ezetimibe 10 mg tablet 10 mg PO QAM 05/04/25 05/31/25 History formoterol fumarate 20 mcg/2 mL 2 ml inhalation AMPM 05/04/25 05/31/25 History solution for nebulization metoprolol succinate 50 mg 75 mg PO QAM 05/04/25 05/31/25 History tablet,extended release 24 hr azithromycin 500 mg tablet 500 mg PO 3XWK #30 tabs 05/07/25 05/31/25 Rx fluticasone 500 mcg-salmeterol 50 1 inh inhalation BID #60 ea 05/07/25 05/31/25 Rx mcg/dose blistr powdr for inhalation (Wixela Inhub) midodrine 2.5 mg tablet 2.5 mg PO TID #90 tabs 05/07/25 05/31/25 Rx sodium chloride 7 % for 4 ml NEB BIDR #240 mL 05/07/25 05/31/25 Rx nebulization prednisone 20 mg tablet 20 mg PO UD PRN RESCUE KIT FOR COPD 05/31/25 05/31/25 History Patient History Medical History Shortness of breath Elevated troponin Abnormal ECG COPD exacerbation Pneumonia Emphysema/COPD daily nebulizer, and prn neb and inh; f/u pulmonology at [facility] and [place] 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 History of colitis Decreased mobility lt arm>CRPS PTSD (post-traumatic stress disorder) Unique anesthetic considerations on preoperative anesthesia assessment high level anxiety when sedated, hx intubation w Flu A....PTSD, "gets scared when put to sleep" History of colon polyps Low blood pressure currently on midodrine; f/u [facility] at and [place] History of influenza INFLUENZA A, February 2022 - [facility] hospitalization, "intubated while in the hospital" Pain syndrome, chronic chronic regional pain syndrome : left arm/received lidocaine injections in [place]/every three months/due may 2023. left limb restriction. History of renal failure "from her crestor medication" Oxygen dependent 2 L o2 continuous. Emphysema lung Statin intolerance Chronic pain see pain clinic for lt arm and neck, [facility] Anxiety Shortness of breath chronic Neurofibromatosis Hypokalemia HX / CAN NOT TOLERATE PO POTASSIUM PILLS DUE TO GASTROPARESIS Hx of bronchitis Myocardial infarction 2010 - CHEST PAIN -[facility] ER AND HAD HEART CATH WITH ONE STENT (BARE METAL) FOLLOW WITH [facility] Seizure 2013 ONLY HAD ONE -- ADMITTED TO [facility] --- METABOLIC RELATED ---- NO MEDICATION Pneumothorax AGE 24 - SURGERY TO REPAIR THE LEFT SIDE AND CHEMICAL TREATMENT ON THE RIGHT SIDE AT [facility] Gastroparesis Cavernous hemangioma of brain stable Surgical History Hx of right cataract extraction History of heart artery stent 2010, [place], [facility], x1 stent; f/u [facility] History of endoscopy Hx of colonoscopy Hx of vaginal surgery 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 Hx of section X2 Hx of cardiac cath 2011, [place], [facility], x1 stent; f/u [facility] at [facility] History of hernia repair UMBILICAL Family History Father Lung disease Severe emphysema, pneumothorax Brother Family history of diabetes mellitus Brother Family history of diabetes mellitus Family/Other Family history of cancer Aunt Family history of colonic polyps Grandfather Family history of lymphoma Social History Smoking Status: Former smoker Tobacco Type: Cigarettes Age Started Using Tobacco: 11; Age Quit Using Tobacco: 53; packs per day: 1; Cigarettes Per Day: has 1 occasionally; Second Hand Exposure: No; Do You Dip or Chew Tobacco: No; Hx Alcohol Use: No Hx Substance Use: No Preferred Language: Indian Communication Ability: Effective Senior Regulatory Affairs Specialist Required: Yes and No Beliefs That Will Affect Care: None marital status: Current Living Situation: Significant Other Current Living Situation Comment: lives at home with How many Children do You have: 3 Feels Safe at Home: Yes Assistive Devices: Nebulizer, Oxygen - Continuous, Walker and Wheelchair Review of Systems Review of Systems: All systems reviewed & are unremarkable except as noted in HPI & below Physical Exam Constitutional: WD/WN, vitals as above Eyes: PERRL, conjunctivae normal, anicteric sclerae ENMT: external ear and nose normal, oropharynx normal Neck: trachea midline, no thyromegaly Respiratory: + uses accessory muscles (mild), able to speak in complete sentences, + tachypneic, + prolonged expiratory phase and symmetric chest movement Gastrointestinal (Abdomen): normal bowel sounds, soft, nontender, no hepatosplenomegaly Musculoskeletal: no cyanosis or clubbing, extremities motor strength 5/5 Skin: no rashes, warm and dry Neurologic: PERRL, EOMI, accommodation nl, no face palsy, no dysarthria Results & Data Vital Signs (Past 12 Hours) Vital Signs Pulse Pulse Resp BP BP Pulse Ox Pulse Ox 06/01/25 08:10 116 H 16 138/97 100 06/01/25 07:39 106 H 14 99 06/01/25 07:00 108 H 20 128/88 98 06/01/25 06:58 101 H 06/01/25 06:36 105 H 22 146/106 H 100 06/01/25 03:33 108 H 22 06/01/25 03:21 96 H 15 06/01/25 03:11 96 H 139/79 06/01/25 03:03 100 H 19 06/01/25 03:01 139/79 06/01/25 03:01 139/79 06/01/25 02:55 135/81 06/01/25 02:55 135/81 06/01/25 02:33 96 H 22 99 06/01/25 02:30 113/81 06/01/25 02:30 113/81 06/01/25 02:25 94 06/01/25 02:12 97 H 14 99 06/01/25 02:00 118/75 06/01/25 01:51 92 H 24 98 06/01/25 01:42 92 H 19 99 06/01/25 01:30 96 H 22 100 06/01/25 01:12 94 H 22 100 06/01/25 01:00 120/80 06/01/25 01:00 120/80 06/01/25 01:00 120/80 06/01/25 00:53 98 H 18 99 06/01/25 00:50 97 H 13 100 06/01/25 00:42 93 H 22 99 06/01/25 00:38 95 H 23 99 06/01/25 00:30 131/86 06/01/25 00:30 131/86 06/01/25 00:20 98 H 25 H 100 06/01/25 00:14 100 H 18 100 06/01/25 00:08 95 H 28 H 99 06/01/25 00:00 125/80 05/31/25 23:47 105 H 21 100 05/31/25 23:41 93 H 19 100 05/31/25 23:38 100 H 23 99 05/31/25 23:26 100 H 05/31/25 23:20 100 H 24 99 05/31/25 23:14 95 H 22 100 05/31/25 23:00 141/96 H 05/31/25 22:51 99 H 17 99 05/31/25 22:47 100 H 20 100 05/31/25 22:35 102 H 19 99 05/31/25 22:30 125/80 05/31/25 22:13 05/31/25 22:03 95 H 19 99 05/31/25 22:00 117/76 05/31/25 22:00 117/76 05/31/25 22:00 117/76 05/31/25 21:57 98 H 15 99 05/31/25 21:45 96 H 12 100 05/31/25 21:33 98 H 17 99 05/31/25 21:30 154/106 H 05/31/25 21:18 97 H 22 100 05/31/25 21:00 116 H 14 98 05/31/25 21:00 167/119 H 05/31/25 21:00 167/119 H 05/31/25 21:00 167/119 H 05/31/25 20:39 114 H 17 99 05/31/25 20:33 161/109 H 05/31/25 20:30 163/107 H 05/31/25 20:30 163/107 H O2 Del Method O2 Del Method O2 Flow Rate 06/01/25 08:10 Nebulizer 06/01/25 07:39 Nasal Cannula 2 06/01/25 07:00 Nasal Cannula 2 06/01/25 06:58 06/01/25 06:36 Nasal Cannula 06/01/25 03:33 06/01/25 03:21 06/01/25 03:11 06/01/25 03:03 06/01/25 03:01 06/01/25 03:01 06/01/25 02:55 06/01/25 02:55 06/01/25 02:33 06/01/25 02:30 06/01/25 02:30 06/01/25 02:25 Nasal Cannula 06/01/25 02:12 06/01/25 02:00 06/01/25 01:51 06/01/25 01:42 06/01/25 01:30 06/01/25 01:12 06/01/25 01:00 06/01/25 01:00 06/01/25 01:00 06/01/25 00:53 06/01/25 00:50 06/01/25 00:42 06/01/25 00:38 06/01/25 00:30 06/01/25 00:30 06/01/25 00:20 06/01/25 00:14 06/01/25 00:08 06/01/25 00:00 05/31/25 23:47 05/31/25 23:41 05/31/25 23:38 05/31/25 23:26 05/31/25 23:20 05/31/25 23:14 05/31/25 23:00 05/31/25 22:51 05/31/25 22:47 05/31/25 22:35 05/31/25 22:30 05/31/25 22:13 Nasal Cannula 05/31/25 22:03 05/31/25 22:00 05/31/25 22:00 05/31/25 22:00 05/31/25 21:57 05/31/25 21:45 05/31/25 21:33 05/31/25 21:30 05/31/25 21:18 05/31/25 21:00 05/31/25 21:00 05/31/25 21:00 05/31/25 21:00 05/31/25 20:39 05/31/25 20:33 05/31/25 20:30 05/31/25 20:30 Laboratory Results Abnormal lab results 05/31/25 05/31/25 06/01/25 Range/Units 18:57 19:48 03:53 RBC 3.85 L (4.20-5.40) M/uL Colbert # (Auto) 0.70 H (0.11-0.59) K/uL Potassium 3.0 L (3.5-5.1) mmol/L Chloride 108 H (98-107) mmol/L BUN/Creatinine Ratio 6.4 L 7.5 L (10-20) Glucose 124 H 128 H (70-99(Fasting)) mg/dl Calcium 7.7 L (8.6-10.3) mg/dl TSH 9.010 H (0.300-4.500) uIu/ml Diagnostic Findings Chest X-Ray 05/31/25 18:43 Chest radiograph, one view History: Sepsis Comparison: May 04, 2025 Findings: Single AP view of the chest performed. No focal consolidation or pleural effusion. No pneumothorax. Emphysema. Scarring of the left lower lung similar to prior. The cardiomediastinal silhouette is within normal limits. Normal pulmonary vascularity. No evidence for lymphadenopathy. No visualized bony or soft tissue abnormality. Impression: Normal chest radiograph Electronically signed by Jesus Abdul 05-31-2025 7:42 PM Chest CTA 05/31/25 18:55 Exam(s): CTA CHEST IV Amt: 118 cc opti 320 EXAM: CT Angiography Chest With Intravenous Contrast CLINICAL HISTORY: Reason for exam: PE. TECHNIQUE: Axial computed tomographic angiography images of the chest with intravenous contrast. CTDI is 11.95 mGy and DLP is 463.52 mGy-cm. Automated exposure control was utilized for the study. A dose lowering technique was utilized adhering to the principles of ALARA. MIP reconstructed images were created and reviewed. COMPARISON: 01/15/2025 FINDINGS: Pulmonary arteries: No pulmonary embolism. Aorta: No acute findings. Normal caliber. No dissection. Lungs: Severe emphysema. No consolidation. Unchanged 7 mm nodule in the left upper lobe (series 2 image 102). Pleural space: No pleural effusion. No pneumothorax. Heart: Unremarkable. Bones/joints: No acute fracture. Soft tissues: Unremarkable. Lymph nodes: Unremarkable. IMPRESSION: 1. No pulmonary embolism. 2. Severe emphysema. Electronically signed by: Hong Chakraborty MD 05/31/25 22:02 PM Medications Administered Current Inpatient Medications Acetaminophen (Acetaminophen 325 Mg Tab) 650 mg PO QID PRN PRN Reason: pain/fever Stop: 07/01/25 00:05 Aspirin (Aspirin 81 Mg Ectab) 81 mg PO DAILY [facility] Stop: 07/01/25 08:59 Last Admin: 06/01/25 08:14 Dose: 81 mg Budesonide (Budesonide 0.5 Mg/2 Ml Vial (Pulmicort)) 0.5 mg INH BIDR [facility] Stop: 07/01/25 06:59 Last Admin: 06/01/25 07:39 Dose: 0.5 mg Doxycycline Hyclate (Doxycycline Hyclate 100 Mg Cap) 100 mg PO BID [facility] Stop: 06/06/25 20:59 Ezetimibe (Ezetimibe 10 Mg Tab) 10 mg PO QAM [facility] Stop: 07/01/25 08:59 Last Admin: 06/01/25 08:12 Dose: 10 mg Empagliflozin (Empagliflozin 10 Mg Tab) 10 mg PO DAILY [facility] Stop: 07/01/25 08:59 Last Admin: 06/01/25 08:14 Dose: 10 mg Enoxaparin Sodium (Enoxaparin Inj 40 Mg/0.4 Ml Syr) 40 mg SQ [facility] Stop: 07/01/25 08:59 Last Admin: 06/01/25 08:12 Dose: 40 mg Folic Acid (Folic Acid 1 Mg Tab) 1 mg PO [facility] Stop: 07/01/25 08:59 Last Admin: 06/01/25 08:14 Dose: 1 mg Potassium Chloride/Sodium Chloride (Normal Saline W/20 Meq Kcl) 20 meq in 1,000 mls @ 60 mls/hr IV .[id number] [facility] [[email or web address]] Stop: 06/01/25 16:50 Last Admin: 06/01/25 00:26 Dose: 60 mls/hr Promethazine HCl (Phenergan) 6.25 mg in 50.25 mls @ 201 mls/hr IV Q6H PRN PRN Reason: Nausea And Vomiting Stop: 07/01/25 00:05 Ipratropium [place] (Ipratropium [place] Neb Soln 0.02% 0.5mg/2.5ml Vial) 0.5 mg INH [facility] Stop: 07/01/25 06:59 Last Admin: 06/01/25 07:39 Dose: 0.5 mg Levalbuterol HCl (Levalbuterol 1.25 Mg/3 Ml Neb) 1.25 mg NEB QIDR [facility] Stop: 07/01/25 06:59 Last Admin: 06/01/25 07:39 Dose: 1.25 mg Levothyroxine Sodium (Levothyroxine Sodium 75 Mcg Tablet) [facility]: 07/01/25 06:29 Last Admin: 06/01/25 06:45 Dose: 75 mcg Lorazepam (Lorazepam 0.5 Mg Tab) 0.5 mg PO DAILY PRN PRN Reason: Anxiety Stop: 07/01/25 00:01 Methocarbamol (Methocarbamol 500 Mg Tablet) 500 mg PO QID PRN PRN Reason: muscle spasms Stop: 07/01/25 00:01 Last Admin: 06/01/25 08:15 Dose: 500 mg Metoprolol Succinate (Metoprolol Succ 25mg Ext Rel Tab) 75 mg PO [facility] Stop: 07/01/25 08:59 Last Admin: 06/01/25 08:13 Dose: 75 mg Midodrine (Midodrine Hcl 2.5 Mg Tab) 2.5 mg PO TIDM [facility] Stop: 07/01/25 07:59 Last Admin: 06/01/25 08:13 Dose: 2.5 mg Montelukast Sodium (Montelukast Sodium 10 Mg Tablet) 10 mg PO HS [facility] Stop: 07/01/25 20:59 Pantoprazole Sodium (Pantoprazole 40 Mg Tab) 40 mg PO BID [facility] Stop: 07/01/25 08:59 Last Admin: 06/01/25 08:14 Dose: 40 mg Paroxetine HCl (Paroxetine Hcl 20 Mg Tab) 40 mg PO HS [facility] Stop: 07/01/25 20:59 Prednisone (Prednisone 5 Mg Tab) 5 mg PO QAM [facility] Stop: 07/01/25 08:59 Last Admin: 06/01/25 08:14 Dose: 5 mg Pregabalin (Pregabalin 75 Mg Cap) 75 mg PO TID [facility] Stop: 07/01/25 08:59 Last Admin: 06/01/25 08:11 Dose: 75 mg Sacubitril/Valsartan (Valsartan/Sacubitril 26/24mg Tab) 1 tab PO AMHS [facility] Stop: 07/01/25 08:59 Last Admin: 06/01/25 08:12 Dose: 1 tab Sodium Chloride (Sodium Chlor 7% 4 Ml Neb) 4 ml NEB BIDR [facility] Stop: 07/01/25 06:59 Last Admin: 06/01/25 07:39 Dose: 4 ml Spironolactone (Spironolactone 12.5 Mg Tab) 12.5 mg PO QAM [facility] Stop: 07/01/25 08:59 Last Admin: 06/01/25 08:15 Dose: 12.5 mg PG Care Time/CCT Total # of Minutes Spent Total Time Spent with Patient: Total time spent is greater than 50% in coordination of care (as documented) at patient's floor/unit and/or counseling patient: Advanced Care Planning 67414 Advanced Care Planning 30 [place] [address] IN/OBS CONSULT LVL 4,60M Patient Type New History Expanded Problem Focused Exam Expanded Problem Focused Medical Decision Making Moderate Complexity Diagnoses Palliative care by specialist Z51.5 Counseling regarding advanced directives and goals of care Z71.89 SOB (shortness of breath) R06.02 Additional Codes Advanced Care Planning - 01504 Advanced Care Planning 30 Min: 40015 Advanced Care Planning 30 Min ([id number])
[2025-06-01] MEDS: predniSONE 20 MG TAB PO SCH (12:17)
[2025-06-01] MEDS: POTASSIUM CHLORIDE 10 MEQ TABCR PO ONE (12:17)
[2025-06-01] MEDS: ACETAMINOPHEN 325 MG TAB PO PRN (12:40)
--- NOTE | 2025-06-01 13:38 | Hospitalist Progress Note ---
Date of Service June 01, 2025 Assessment & Plan (1) Sepsis: Plan: Assessment and plan below following discussion of case with ED provider and reviewing patient history/pertinent normal/abnormal diagnostic test results. Recurrent COPD exacerbation/complicated bronchitis Chronic respiratory failure secondary to steroid-dependent COPD and azithromycin prophylaxis on home O2 Noncompliant: Which she attributes to running out of medications due to delay in getting mail order pharmacy medications --Chest CTA:No pulmonary embolism. Severe emphysema. --Respiratory BioFire pending --Normal procalcitonin --Increased home dose of prednisone to 20 mg daily --Continue nebs, doxycycline -- Palliative care consulted --Titrate oxygen to keep saturations 88 to 92% -- Will need follow-up with pulmonology on discharge Suspected Sepsis Reported fever, tachycardia No clear source of infection found yet BioFire, urinalysis pending Blood cultures pending Hypokalemia Replace and monitor Chronic diastolic heart failure (EF 60 to 65%, TTE 2024) Clinically no signs of volume overload Continue Entresto, Aldactone, metoprolol succinate, Jardiance Monitor volume status, I's and O's Coronary artery disease S/P angioplasty/stent Continue aspirin, metoprolol, Zetia Hypothyroidism TSH elevated, normal free T4 Continue levothyroxine Needs repeat thyroid function test as outpatient H/O recurrent spontaneous pneumothorax S/P Thoracotomy Hypotension Continue midodrine Other chronic conditions: cerebellar angioma as per records past tobacco abuse Mood disorder Continue home medications DVT Px: Lovenox SQ CODE STATUS Full code Admission and Anticipated Discharge Date Admission Date: May 31, 2025 Subjective Patient is seen and examined at bedside States feeling better today Cough, chest tightness, dyspnea improving No other new complaints Saturating well on 2 L supplemental oxygen Review of Systems Review of Systems: All systems reviewed & are unremarkable except as noted in Subjective Physical Exam Physical Exam: Physical Exam: Vitals signs as noted above General Appearance:Moderately built and nourished, no apparent distress, chronic ill apperaing Head: normocephalic, Atraumatic Eyes: normal inspection, EOMI Neck: supple, Trachea midline Respiratory/Chest:Decreased breath sounds, scant wheezing, No accessory muscle use Cardiovascular: S1, S2, No murmur Abdomen/GI:Soft, Non tender, Bowel sounds present Extremities/Musculoskeletal:normal inspection, no edema Neurologic/Psych:AAOX3, grossly no focal neurological deficits Skin: normal color, warm Results & Data Results & Data Vital Signs (Past 12 Hours) Vital Signs Temp Pulse Pulse Resp BP BP Pulse Ox 06/01/25 11:44 92 H 17 99 06/01/25 11:39 86 17 114/75 95 06/01/25 10:02 85 18 105/61 100 06/01/25 09:16 36.8 C 06/01/25 08:10 116 H 16 138/97 100 06/01/25 07:39 106 H 14 99 06/01/25 07:00 108 H 20 128/88 98 06/01/25 06:58 101 H 06/01/25 06:36 105 H 22 146/106 H 100 06/01/25 03:33 108 H 22 06/01/25 03:21 96 H 15 06/01/25 03:11 96 H 139/79 06/01/25 03:03 100 H 19 06/01/25 03:01 139/79 06/01/25 03:01 139/79 06/01/25 02:55 135/81 06/01/25 02:55 135/81 06/01/25 02:33 96 H 22 99 06/01/25 02:30 113/81 06/01/25 02:30 113/81 06/01/25 02:25 06/01/25 02:12 97 H 14 99 06/01/25 02:00 118/75 06/01/25 01:51 92 H 24 98 06/01/25 01:42 92 H 19 99 Pulse Ox O2 Del Method O2 Del Method O2 Flow Rate 06/01/25 11:44 Nasal Cannula 2 06/01/25 11:39 Nasal Cannula 3 06/01/25 10:02 Nasal Cannula 3 06/01/25 09:16 06/01/25 08:10 Nebulizer 06/01/25 07:39 Nasal Cannula 2 06/01/25 07:00 Nasal Cannula 2 06/01/25 06:58 06/01/25 06:36 Nasal Cannula 06/01/25 03:33 06/01/25 03:21 06/01/25 03:11 06/01/25 03:03 06/01/25 03:01 06/01/25 03:01 06/01/25 02:55 06/01/25 02:55 06/01/25 02:33 06/01/25 02:30 06/01/25 02:30 06/01/25 02:25 94 Nasal Cannula 06/01/25 02:12 06/01/25 02:00 06/01/25 01:51 06/01/25 01:42 Laboratory Results Short CBC 05/31/25 06/01/25 Range/Units 18:57 03:53 WBC 9.66 8.57 (4.8-10.8) K/ul Hgb 13.8 12.4 (12.0-16.0) g/dl Hct 41.2 37.7 (37.0-47.0) % Plt Count 322 276 (130-400) K/uL BMP 05/31/25 05/31/25 06/01/25 18:57 19:48 03:53 Sodium 141 141 Potassium TNP 3.0 L 3.6 Chloride 104 108 H Carbon Dioxide 27 29 BUN 6 8 Creatinine 0.94 1.07 Glucose 124 H 128 H Calcium 8.8 7.7 L Liver Function 05/31/25 05/31/25 Range/Units 18:57 19:48 Total Bilirubin 0.4 (0.2-1.0) mg/dl AST TNP 13 ALT 10 (7-52) U/L Alkaline Phosphatase 56 (34-104) U/L Albumin 3.6 (3.4-5.0) gm/dl
[2025-06-01 14:37] LABS: Appearance Urine Clear (Clear); Glucose Urine UA 3+ (Negative)
[2025-06-01 15:23] LABS: Chlamydia pneumoniae PCR Not Detected (NotDetected); Coronavirus 229E PCR Not Detected (NotDetected); Coronavirus CoV-2 (COVID19)PCR Not Detected (NotDetected); Coronavirus HKU1 PCR Not Detected (NotDetected); Coronavirus NL63 PCR Not Detected (NotDetected); Coronavirus OC43PCR Not Detected (NotDetected); Human Metapneumovirus PCR Not Detected (NotDetected); Parainfluenza Virus 1 PCR Not Detected (NotDetected); Parainfluenza Virus 2 PCR Not Detected (NotDetected); Parainfluenza Virus 3 PCR Not Detected (NotDetected); Parainfluenza Virus 4 PCR Not Detected (NotDetected); Respiratory Syncytial VirusPCR Not Detected (NotDetected); Rhinovirus/Enterovirus PCR Not Detected (NotDetected)
--- NOTE | 2025-06-01 18:36 | Electrocardiogram Report ---
Test Reason : Blood Pressure : */* mmHG Vent. Rate : 126 BPM Atrial Rate : 126 BPM P-R Int : 126 ms QRS Dur : 88 ms QT Int : 334 ms P-R-T Axes : 86 83 89 degrees QTcB Int : 483 ms Sinus tachycardia with PVCs Biatrial enlargement Nonspecific ST abnormality Abnormal ECG When compared with ECG of 04-May-2025 18:18, ST no longer depressed in Inferior leads Confirmed by Jesus Garzon ([id number]) on 06/01/2025 6:35:57 PM Referred By: REFERRED SELF Confirmed By: Jesus Garzon
--- NOTE | 2025-06-01 18:41 | Electrocardiogram Report ---
Test Reason : Blood Pressure : */* mmHG Vent. Rate : 105 BPM Atrial Rate : 105 BPM P-R Int : 132 ms QRS Dur : 90 ms QT Int : 372 ms P-R-T Axes : 88 84 83 degrees QTcB Int : 491 ms Sinus tachycardia with PVCs Biatrial enlargement Nonspecific T wave abnormality Abnormal ECG When compared with ECG of 31-May-2025 18:35, (unconfirmed) Fusion complexes are no longer Present PVcs are now Present Nonspecific T wave abnormality now evident in Lateral leads Confirmed by Jesus Garzon ([id number]) on 06/01/2025 6:40:52 PM Referred By: REFERRED SELF Confirmed By: Jesus Garzon
[2025-06-01] MEDS: LORazepam 0.5 MG TAB PO PRN (18:44)
[2025-06-01] MEDS: ACETAMINOPHEN 1,000 MG/100 ML VIAL IV STA (20:08)
[2025-06-01] MEDS: MONTELUKAST SODIUM 10 MG TABLET PO SCH (21:03)
[2025-06-01] MEDS: DOXYCYCLINE HYCLATE 100 MG CAP PO SCH (21:03)
--- NOTE | 2025-06-01 22:40 | Communication Note ---
Date of Service: June 01, 2025
--- NOTE | 2025-06-01 23:15 | CT Scan Report ---
Exam(s): CT ABDOMEN + PELVIS Without Contrast EXAM: CT Abdomen and Pelvis Without Intravenous Contrast CLINICAL HISTORY: Reason for exam: worsening back pain. TECHNIQUE: Axial computed tomography images of the abdomen and pelvis without intravenous contrast. CTDI is 7 mGy and DLP is 248 3 weeks head sustained myositis started toward the Backpackf away work she can not lift mGy-cm. Automated exposure control was utilized for the study. A dose lowering technique was utilized adhering to the principles of ALARA. COMPARISON: 04/22/2022 FINDINGS: Lung bases: Emphysema. ABDOMEN: Liver: Unremarkable. Gallbladder and bile ducts: Unremarkable. No calcified stones. No ductal dilation. Pancreas: Unremarkable. No ductal dilation. Spleen: Unremarkable. No splenomegaly. Adrenals: Unremarkable. No mass. Kidneys and ureters: Right kidney is absent. Left kidney is normal. No obstructing stones. No hydronephrosis. Stomach and bowel: No bowel obstruction. Sigmoid diverticulosis without evidence of diverticulitis. PELVIS: Appendix: Appendix not visualized. Bladder: Hyperdense material in the urinary bladder suggesting excreted contrast from previous contrast-enhanced procedure. Reproductive: Unremarkable as visualized. ABDOMEN and PELVIS: Intraperitoneal space: Unremarkable. No free air, significant free fluid, or fluid collection. Bones/joints: Severe disc degeneration L4-L5. No acute fracture or dislocation. Soft tissues: Unremarkable. Vasculature: Atherosclerosis. No abdominal aortic aneurysm. Lymph nodes: Unremarkable. No enlarged lymph nodes. IMPRESSION: No acute findings in the abdomen or pelvis. Electronically signed by: Sherice Pleitez M.D. 06/01/25 23:14 PM
[2025-06-02 07:22] LABS: Hematocrit (blood only) 36.4 % (37.0-47.0); Hemoglobin 11.9 g/dl (12.0-16.0); Mean Corpuscular Hemoglobin 32.2 pg (25.0-34.0); Mean Corpuscular Volume 98.6 fL (80.0-100.0); Platelet Count 265 K/uL (130-400); RDW Standard Deviation 46.3 fL (36.4-46.3); Red Blood Count 3.69 M/uL (4.20-5.40); White Blood Count 7.16 K/ul (4.8-10.8)
[2025-06-02 08:01] LABS: Anion Gap 3.0 (3-11); Blood Urea Nitrogen 10.0 mg/dl (6-23); Calcium 7.9 mg/dl (8.6-10.3); Carbon Dioxide 28.0 mmol/L (21-32); Chloride 108.0 mmol/L (98-107); Creatinine Clr Calc Pharmacy 50.3 ml/min; Glucose 143.0 mg/dl (70-99(Fasting)); Magnesium 1.9 mg/dl (1.7-2.4); Potassium 4.7 mmol/L (3.5-5.1); Sodium 139.0 mmol/L (136-145)
--- NOTE | 2025-06-02 13:48 | Hospitalist Progress Note ---
Date of Service June 02, 2025 Assessment & Plan (1) Sepsis: Plan: Assessment and plan below following discussion of case with ED provider and reviewing patient history/pertinent normal/abnormal diagnostic test results. Recurrent COPD exacerbation/complicated bronchitis Chronic respiratory failure secondary to steroid-dependent COPD and azithromycin prophylaxis on home O2 Noncompliant: Which she attributes to running out of medications due to delay in getting mail order pharmacy medications --Chest CTA:No pulmonary embolism. Severe emphysema. --Respiratory BioFire : Negative --Normal procalcitonin --Increased home dose of prednisone to 20 mg daily --Continue nebs, doxycycline -- Appreciate palliative care input --Titrate oxygen to keep saturations 88 to 92% -- Will need follow-up with pulmonology on discharge Wean off of oxygen as able Clinically improving Suspected Sepsis Reported fever, tachycardia No clear source of infection found yet BioFire, urinalysis: Normal Blood cultures: Negative to date CT chest, abdomen: No signs of infection Hypokalemia Replace and monitor Chronic diastolic heart failure (EF 60 to 65%, TTE 2024) Clinically no signs of volume overload Continue Entresto, Aldactone, metoprolol succinate, Jardiance Monitor volume status, I's and O's Coronary artery disease S/P angioplasty/stent Continue aspirin, metoprolol, Zetia Hypothyroidism TSH elevated, normal free T4 Continue levothyroxine Needs repeat thyroid function test as outpatient H/O recurrent spontaneous pneumothorax S/P Thoracotomy Hypotension Continue midodrine Other chronic conditions: cerebellar angioma as per records past tobacco abuse Mood disorder Continue home medications DVT Px: Lovenox SQ CODE STATUS Full code Disposition Expected discharge home in stable Admission and Anticipated Discharge Date Admission Date: May 31, 2025 Subjective Patient is seen and examined at bedside Stated that she had sciatic pain on the right side which resolved with medications States feeling a lot better today No new complaints Chest tightness resolved No significant cough today Denies any dyspnea at rest Review of Systems Review of Systems: All systems reviewed & are unremarkable except as noted in Subjective Physical Exam Physical Exam: Physical Exam: Vitals signs as noted above General Appearance:Moderately built and nourished, no apparent distress, chronic ill apperaing Head: normocephalic, Atraumatic Eyes: normal inspection, EOMI Neck: supple, Trachea midline Respiratory/Chest:Decreased breath sounds, scant wheezing, No accessory muscle use Cardiovascular: S1, S2, No murmur Abdomen/GI:Soft, Non tender, Bowel sounds present Extremities/Musculoskeletal:normal inspection, no edema Neurologic/Psych:AAOX3, grossly no focal neurological deficits Skin: normal color, warm Results & Data Results & Data Vital Signs (Past 12 Hours) Vital Signs Temp Pulse Pulse Pulse Pulse Resp BP 06/02/25 11:12 52 L 18 135/84 06/02/25 11:09 74 18 06/02/25 07:24 36.6 C 60 18 101/66 06/02/25 07:15 84 18 06/02/25 07:13 80 06/02/25 03:33 36.4 C L 81 20 109/78 Pulse Ox O2 Del Method O2 Flow Rate 06/02/25 11:12 100 Nasal Cannula 2 06/02/25 11:09 100 Nasal Cannula 2 06/02/25 07:24 98 High Flow Nasal Cannula 8 06/02/25 07:15 99 Nasal Cannula 2 06/02/25 07:13 06/02/25 03:33 96 Nasal Cannula 2 Laboratory Results Short CBC 06/02/25 Range/Units 06:42 WBC 7.16 (4.8-10.8) K/ul Hgb 11.9 L (12.0-16.0) g/dl Hct 36.4 L (37.0-47.0) % Plt Count 265 (130-400) K/uL BMP 06/02/25 06:42 Sodium 139 Potassium 4.7 D Chloride 108 H Carbon Dioxide 28 BUN 10 Creatinine 0.94 Glucose 143 H Calcium 7.9 L Urine 06/01/25 Range/Units 14:25 Urine Color Yellow Urine Appearance Clear (Clear) Urine pH 6.5 (4.5-7.5) Ur Specific [place] 1.024 (1.000-1.030) Urine Protein Negative (Negative) Urine Glucose (UA) 3+ H (Negative)
[2025-06-03 08:24] LABS: Anion Gap 5.0 (3-11); Calcium 8.6 mg/dl (8.6-10.3); Carbon Dioxide 29.0 mmol/L (21-32); Chloride 104.0 mmol/L (98-107); Magnesium 1.9 mg/dl (1.7-2.4); Potassium 5.0 mmol/L (3.5-5.1); Sodium 138.0 mmol/L (136-145)
[2025-06-03 08:29] LABS: Blood Urea Nitrogen 14.0 mg/dl (6-23); Creatinine Clr Calc Pharmacy 47.3 ml/min; Glucose 110.0 mg/dl (70-99(Fasting))
--- NOTE | 2025-06-03 14:22 | Hospitalist Progress Note ---
Date of Service June 03, 2025 Assessment & Plan (1) Sepsis: Plan: Assessment and plan below following discussion of case with ED provider and reviewing patient history/pertinent normal/abnormal diagnostic test results. Recurrent COPD exacerbation/complicated bronchitis Chronic respiratory failure secondary to steroid-dependent COPD and azithromycin prophylaxis on home O2 Noncompliant: Which she attributes to running out of medications due to delay in getting mail order pharmacy medications --Chest CTA:No pulmonary embolism. Severe emphysema. --Respiratory BioFire : Negative --Normal procalcitonin --Continue prednisone to 20 mg daily --Continue nebs, doxycycline -- Appreciate palliative care input --Titrate oxygen to keep saturations 88 to 92% -- Will need follow-up with pulmonology on discharge Wean off of oxygen as able Expected discharge home in next 24 to 48 hours Suspected Sepsis--less likely Reported fever, tachycardia No clear source of infection found yet BioFire, urinalysis: Normal Blood cultures: Negative to date CT chest, abdomen: No signs of infection Hypokalemia Replace and monitor Chronic diastolic heart failure (EF 60 to 65%, TTE 2024) Clinically no signs of volume overload Continue Entresto, Aldactone, metoprolol succinate, Jardiance Monitor volume status, I's and O's Coronary artery disease S/P angioplasty/stent Continue aspirin, metoprolol, Zetia Hypothyroidism TSH elevated, normal free T4 Continue levothyroxine Needs repeat thyroid function test as outpatient H/O recurrent spontaneous pneumothorax S/P Thoracotomy Hypotension Continue midodrine Other chronic conditions: cerebellar angioma as per records past tobacco abuse Mood disorder Continue home medications DVT Px: Lovenox SQ CODE STATUS Full code Disposition Home in stable Admission and Anticipated Discharge Date Admission Date: May 31, 2025 Subjective Patient is seen and examined at bedside States having some "crusty discharge" from eyes denies any change in vision,Pain, itching. States that artificial tears helped Otherwise no other complaints Cough resolved Denies any chest pain, dyspnea States that her mail-order pharmacy medications were not delivered yet Review of Systems Review of Systems: All systems reviewed & are unremarkable except as noted in Subjective Physical Exam Physical Exam: Physical Exam: Vitals signs as noted above General Appearance:Moderately built and nourished, no apparent distress, chronic ill appearing Head: normocephalic, Atraumatic Eyes: normal inspection, EOMI, no signs of conjunctivitis Neck: supple, Trachea midline Respiratory/Chest:Decreased breath sounds, CTA, No accessory muscle use Cardiovascular: S1, S2, No murmur Abdomen/GI:Soft, Non tender, Bowel sounds present Extremities/Musculoskeletal:normal inspection, no edema Neurologic/Psych:AAOX3, grossly no focal neurological deficits Skin: normal color, warm Results & Data Results & Data Vital Signs (Past 12 Hours) Vital Signs Temp Pulse Pulse Resp BP Pulse Ox O2 Del Method 06/03/25 13:24 85 06/03/25 11:21 36.6 C 82 18 101/67 98 Nasal Cannula 06/03/25 10:50 81 18 98 Nasal Cannula 06/03/25 08:32 Nasal Cannula 06/03/25 07:45 36.7 C 88 18 134/87 99 Nasal Cannula 06/03/25 07:17 88 18 98 Nasal Cannula 06/03/25 07:14 80 06/03/25 03:01 36.6 C 82 16 114/74 97 Nasal Cannula O2 Flow Rate 06/03/25 13:24 06/03/25 11:21 2 06/03/25 10:50 2 06/03/25 08:32 2 06/03/25 07:45 2 06/03/25 07:17 2 06/03/25 07:14 06/03/25 03:01 2 Laboratory Results BMP 06/03/25 07:18 Sodium 138 Potassium 5.0 Chloride 104 Carbon Dioxide 29 BUN 14 Creatinine 1.00 Glucose 110 H Calcium 8.6
--- NOTE | 2025-06-04 15:01 | Hospitalist Progress Note ---
Date of Service June 04, 2025 Assessment & Plan (1) Sepsis: Plan: Assessment and plan below following discussion of case with ED provider and reviewing patient history/pertinent normal/abnormal diagnostic test results. Recurrent COPD exacerbation/complicated bronchitis Chronic respiratory failure secondary to steroid-dependent COPD and azithromycin prophylaxis on home O2 Noncompliant: Which she attributes to running out of medications due to delay in getting mail order pharmacy medications --Chest CTA:No pulmonary embolism. Severe emphysema. --Respiratory BioFire : Negative --Normal procalcitonin --Continue prednisone to 20 mg daily --Continue nebs, doxycycline -- Appreciate palliative care input --Titrate oxygen to keep saturations 88 to 92% -- Will need follow-up with pulmonology on discharge Wean off of oxygen as able Clinically improved Plan to discharge home tomorrow Suspected Sepsis--less likely Reported fever, tachycardia No clear source of infection found yet BioFire, urinalysis: Normal Blood cultures: Negative to date CT chest, abdomen: No signs of infection Hypokalemia Replace and monitor Chronic diastolic heart failure (EF 60 to 65%, TTE 2024) Clinically no signs of volume overload Continue Entresto, Aldactone, metoprolol succinate, Jardiance Monitor volume status, I's and O's Coronary artery disease S/P angioplasty/stent Continue aspirin, metoprolol, Zetia Hypothyroidism TSH elevated, normal free T4 Continue levothyroxine Needs repeat thyroid function test as outpatient H/O recurrent spontaneous pneumothorax S/P Thoracotomy Hypotension Continue midodrine Other chronic conditions: cerebellar angioma as per records past tobacco abuse Mood disorder Continue home medications DVT Px: Lovenox SQ CODE STATUS Full code Disposition Home tmw Admission and Anticipated Discharge Date Admission Date: May 31, 2025 Subjective Patient is seen and examined at bedside No new complaints Discharge home was resolved Minimal cough Denies any chest pain, dyspnea, nausea, vomiting, abdominal pain Review of Systems Review of Systems: All systems reviewed & are unremarkable except as noted in Subjective Physical Exam Physical Exam: Physical Exam: Vitals signs as noted above General Appearance:Moderately built and nourished, no apparent distress, chronic ill appearing Head: normocephalic, Atraumatic Eyes: normal inspection, EOMI, no signs of conjunctivitis Neck: supple, Trachea midline Respiratory/Chest:Decreased breath sounds, CTA, No accessory muscle use Cardiovascular: S1, S2, No murmur Abdomen/GI:Soft, Non tender, Bowel sounds present Extremities/Musculoskeletal:normal inspection, no edema Neurologic/Psych:AAOX3, grossly no focal neurological deficits Skin: normal color, warm Results & Data Results & Data Vital Signs (Past 12 Hours) Vital Signs Temp Pulse Pulse Resp BP Pulse Ox O2 Del Method 06/04/25 13:53 85 06/04/25 11:36 36.6 C 84 16 98/64 L 98 Nasal Cannula 06/04/25 10:48 83 18 94 Nasal Cannula 06/04/25 07:40 Nasal Cannula 06/04/25 07:28 71 06/04/25 07:18 36.4 C L 79 16 113/79 100 Nebulizer 06/04/25 07:05 75 18 99 Nasal Cannula O2 Flow Rate 06/04/25 13:53 06/04/25 11:36 2 06/04/25 10:48 2 06/04/25 07:40 2 06/04/25 07:28 06/04/25 07:18 06/04/25 07:05 3
[2025-06-05 07:22] LABS: Anion Gap 4.0 (3-11); Blood Urea Nitrogen 21.0 mg/dl (6-23); Calcium 8.4 mg/dl (8.6-10.3); Carbon Dioxide 33.0 mmol/L (21-32); Chloride 102.0 mmol/L (98-107); Creatinine Clr Calc Pharmacy 34.3 ml/min; Glucose 118.0 mg/dl (70-99(Fasting)); Potassium 4.8 mmol/L (3.5-5.1); Sodium 139.0 mmol/L (136-145)
[2025-06-05 11:15] VITALS: BP 100/70; PULSE 84; RESP 19; TEMP 97.7; O2SAT 97
--- NOTE | 2025-06-05 12:06 | Hospitalist Progress Note ---
Date of Service June 05, 2025 Assessment & Plan (1) Sepsis: Plan: Assessment and plan below following discussion of case with ED provider and reviewing patient history/pertinent normal/abnormal diagnostic test results. Recurrent COPD exacerbation/complicated bronchitis Chronic respiratory failure secondary to steroid-dependent COPD and azithromycin prophylaxis on home O2 Noncompliant: Which she attributes to running out of medications due to delay in getting mail order pharmacy medications --Chest CTA:No pulmonary embolism. Severe emphysema. --Respiratory BioFire : Negative --Normal procalcitonin --Continue prednisone to 20 mg daily --Continue nebs, doxycycline -- Appreciate palliative care input --Titrate oxygen to keep saturations 88 to 92% -- Will need follow-up with pulmonology on discharge Clinically improved Plan to discharge home today Advised to follow-up with pulmonology on discharge Suspected Sepsis--less likely Reported fever, tachycardia No clear source of infection found yet BioFire, urinalysis: Normal Blood cultures: Negative to date CT chest, abdomen: No signs of infection Hypokalemia Replace and monitor Chronic diastolic heart failure (EF 60 to 65%, TTE 2024) Clinically no signs of volume overload Continue Entresto, Aldactone, metoprolol succinate, Jardiance Monitor volume status, I's and O's Coronary artery disease S/P angioplasty/stent Continue aspirin, metoprolol, Zetia Hypothyroidism TSH elevated, normal free T4 Continue levothyroxine Needs repeat thyroid function test as outpatient H/O recurrent spontaneous pneumothorax S/P Thoracotomy Hypotension Continue midodrine Other chronic conditions: cerebellar angioma as per records past tobacco abuse Mood disorder Continue home medications DVT Px: Lovenox SQ CODE STATUS Full code Disposition Home today Admission and Anticipated Discharge Date Admission Date: May 31, 2025 Subjective Patient is seen and examined at bedside States feeling well today No new complaints today Denies any chest pain, dyspnea, nausea, vomiting, abdominal pain Plan to be discharged home today Review of Systems Review of Systems: All systems reviewed & are unremarkable except as noted in Subjective Physical Exam Physical Exam: Physical Exam: Vitals signs as noted above General Appearance:Moderately built and nourished, no apparent distress, chronic ill appearing Head: normocephalic, Atraumatic Eyes: normal inspection, EOMI, no signs of conjunctivitis Neck: supple, Trachea midline Respiratory/Chest:Decreased breath sounds, CTA, No accessory muscle use Cardiovascular: S1, S2, No murmur Abdomen/GI:Soft, Non tender, Bowel sounds present Extremities/Musculoskeletal:normal inspection, no edema Neurologic/Psych:AAOX3, grossly no focal neurological deficits Skin: normal color, warm Results & Data Results & Data Vital Signs (Past 12 Hours) Vital Signs Temp Pulse Pulse Resp BP Pulse Ox O2 Del Method 06/05/25 11:14 36.5 C 84 19 100/70 97 Nasal Cannula 06/05/25 10:38 88 18 96 Nasal Cannula 06/05/25 09:07 Nasal Cannula 06/05/25 07:23 36.4 C L 81 20 111/78 100 Room Air 06/05/25 07:03 79 06/05/25 06:55 87 19 91 Room Air 06/05/25 02:07 36.6 C 72 16 92/62 L 98 Nasal Cannula O2 Flow Rate 06/05/25 11:14 2 06/05/25 10:38 2 06/05/25 09:07 2 06/05/25 07:23 06/05/25 07:03 06/05/25 06:55 06/05/25 02:07 2 Laboratory Results [facility] 06/05/25 06:43 Sodium 139 Potassium 4.8 Chloride 102 Carbon Dioxide 33 H BUN 21 Creatinine 1.38 H D Glucose 118 H Calcium 8.4 L
--- NOTE | 2025-06-05 12:09 | Discharge Summary ---
Date of Service June 05, 2025 Admission HPI Per Admitting Provider History obtained from patient and records. Medical history significant for chronic diastolic heart failure (EF 60 to 65%, TTE 2024), CAD status post angioplasty/stent, mild MR, chronic respiratory failure secondary to steroid-dependent COPD and azithromycin prophylaxis on home O2, history recurrent spontaneous pneumothorax status post thoracotomy, hypertension, hypotension on midodrine, gastroparesis, neurofibromatosis, cerebellar angioma as per records, IBS constipation predominant, past tobacco abuse 4 admissions this year for COPD exacerbation. Recent confinement last month. Pulmonology recommended palliative care consultation to discuss goals of care. Patient has not seen PCP on follow-up since discharge. Unable to meet up with home care nurse. Patient ran out of home medications a few days ago. Has not been able to receive shipments to home the last couple months since switching to mail order pharmacy. Patient wants to cancel mail order pharmacy arrangement and go back to prior pharmacy pickup arrangement. Patient experiencing difficulty relating this to outpatient providers on the phone as per patient account. Worsening junky cough symptoms the last few days with SOB. No chest pain or abdominal pain. Some nausea symptoms. Denies aspiration. Temperature of 101 at home. Patient feels better after Solu-Medrol and neb treatment administered at the ER. Medical History as above Surgical History : Current section, cervical conization, diagnostic laparoscopy, BTL, tonsillectomy, ganglion cyst removal, hernia repair, lung thoracotomy Family History : Rheumatoid arthritis, lymphoma, diabetes, heart disease, stroke Personal/Social history : Past tobacco abuse, occasional EtOH intake, disabled Admission Exam Per Admitting Provider GENERAL: Slightly anxious, pleasant, no respiratory distress SKIN: Normal color, warm HEENT: [place] palpebral conjunctivae, no ptosis, dry buccal mucosa, nasal cannula in place NECK : Supple, no tenderness CHEST : Decreased breath sounds, no wheezes, no tenderness HEART : RRR, systolic murmur ABDOMEN: no distention, nontender EXTREMITIES : No LE swelling/tenderness, no other conspicuous deformities noted NEUROLOGIC : Coherent, no facial asymmetry, no other gross focality Principal Diagnosis Recurrent COPD exacerbation/complicated bronchitis Chronic respiratory failure secondary to steroid-dependent COPD Hypokalemia Abnormal thyroid function test Discharge Data Allergies Allergy/AdvReac Type Severity Reaction Status Date / Time adhesive tape Allergy Intermediate SKIN TEARS Verified 05/31/25 21:05 Sulfa (Sulfonamide Allergy Intermediate HIVES Verified 05/31/25 21:05 Antibiotics) adhesive Allergy Mild BANDAIDS : Verified 05/31/25 21:05 SKIN ABRASION ibuprofen AdvReac Severe HX KIDNEY Verified 05/31/25 21:05 FAILURE ketorolac [From Toradol] AdvReac Severe HX KIDNEY Verified 05/31/25 21:05 FAILURE NSAIDS (Non-Steroidal AdvReac Severe HX KIDNEY Verified 05/31/25 21:05 Anti-Inflamma FAILURE prednisone AdvReac Severe Patient Verified 05/31/25 21:05 Reports Contraindication in Kidney Failure/SEE NOTES rosuvastatin [From Crestor] AdvReac Severe Weakness, Verified 05/31/25 21:05 RHABDOMYLOSIS, ACUTE RENAL FAILURE tramadol AdvReac Severe Seizure Verified 05/31/25 21:05 meperidine AdvReac Intermediate NOT A Verified 05/31/25 21:05 VERIFIED RXN: MOOD SWINGS Consultations 05/31/25 22:15 ED Decision to Admit Stat 06/01/25 03:08 Consult Palliative Care Routine Procedures Performed Laboratory Results WBC 7.16 K/ul (4.8-10.8) 06/02/25 06:42 RBC 3.69 M/uL (4.20-5.40) L 06/02/25 06:42 Hgb 11.9 g/dl (12.0-16.0) L 06/02/25 06:42 Hct 36.4 % (37.0-47.0) L 06/02/25 06:42 MCV 98.6 fL (80.0-100.0) 06/02/25 06:42 MCH 32.2 pg (25.0-34.0) 06/02/25 06:42 MCHC 32.7 g/dL (32.0-36.0) 06/02/25 06:42 RDW Std Deviation 46.3 fL (36.4-46.3) 06/02/25 06:42 RDW Coeff of Akiko 12.7 % (11.5-14.5) 06/02/25 06:42 Plt Count 265 K/uL (130-400) 06/02/25 06:42 MPV 9.6 fL (9.4-12.4) 06/02/25 06:42 Immature Gran % (Auto) 0.2 % 06/01/25 03:53 Neut % (Auto) 55.5 % 06/01/25 03:53 Lymph % (Auto) 33.0 % 06/01/25 03:53 [place] % (Auto) 6.8 % 06/01/25 03:53 Eos % (Auto) 3.7 % 06/01/25 03:53 Baso % (Auto) 0.8 % 06/01/25 03:53 Neut # (Auto) 4.75 K/uL (1.40-6.50) 06/01/25 03:53 Lymph # (Auto) 2.83 K/uL (1.20-3.40) 06/01/25 03:53 [place] # (Auto) 0.58 K/uL (0.11-0.59) 06/01/25 03:53 Eos # (Auto) 0.32 K/uL (0.00-0.50) 06/01/25 03:53 Baso # (Auto) 0.07 K/uL (0.00-0.20) 06/01/25 03:53 Immature Gran # (Auto) 0.02 K/uL (0.01-0.20) 06/01/25 03:53 PT 10.9 Seconds (9.0-12.0) 05/31/25 18:57 INR 1.0 (0.9-1.1) 05/31/25 18:57 APTT 27 Seconds (21-31) 05/31/25 18:57 PTT Ratio 1.0 05/31/25 18:57 Sodium 139 mmol/L (136-145) 06/05/25 06:43 Potassium 4.8 mmol/L (3.5-5.1) 06/05/25 06:43 Chloride 102 mmol/L (98-107) 06/05/25 06:43 Carbon Dioxide 33 mmol/L (21-32) H 06/05/25 06:43 Anion Gap 4 (3-11) 06/05/25 06:43 BUN 21 mg/dl (6-23) 06/05/25 06:43 Creatinine 1.38 mg/dl (0.6-1.2) H D 06/05/25 06:43 Est Cr Clr Drug Dosing 34.3 ml/min 06/05/25 06:43 eGFR 43.82 06/05/25 06:43 BUN/Creatinine Ratio 15.2 (10-20) 06/05/25 06:43 Glucose 118 mg/dl (70-99(Fasting)) H 06/05/25 06:43 Lactate 1.1 mmol/L (0.4-2.0) 05/31/25 19:46 Calcium 8.4 mg/dl (8.6-10.3) L 06/05/25 06:43 Magnesium 1.9 mg/dl (1.7-2.4) 06/03/25 07:18 Total Bilirubin 0.4 mg/dl (0.2-1.0) 05/31/25 18:57 AST 13 U/L (13-39) 05/31/25 19:48 ALT 10 U/L (7-52) 05/31/25 18:57 Alkaline Phosphatase 56 U/L (34-104) 05/31/25 18:57 Troponin I High Sens 13.2 pg/ml (0-14) 05/31/25 18:57 B-Natriuretic Peptide 27 pg/ml (0-100) 05/31/25 18:43 Total Protein 6.3 gm/dl (6.0-8.3) 05/31/25 18:57 Albumin 3.6 gm/dl (3.4-5.0) 05/31/25 18:57 Globulin 2.7 gm/dl (2.5-4.0) 05/31/25 18:57 Albumin/Globulin Ratio 1.3 (0.9-2) 05/31/25 18:57 Procalcitonin 0.06 ng/ml (0-0.5) 05/31/25 18:57 TSH 9.010 uIu/ml (0.300-4.500) H 05/31/25 18:57 Free T4 0.82 ng/dl (0.61-1.60) 05/31/25 18:57 Urine Color Yellow 06/01/25 14: Urine Appearance Clear (Clear) 06/01/25 14: Urine pH 6.5 (4.5-7.5) 06/01/25 14: Ur Specific [place] 1.024 (1.000-1.030) 06/01/25 14: Urine Protein Negative (Negative) 06/01/25 14: Urine Glucose (UA) 3+ (Negative) H 06/01/25 14:25 Urine Ketones Negative (Negative) 06/01/25 14:25 Urine Blood Negative (Negative) 06/01/25 14:25 Urine Nitrite Negative (Negative) 06/01/25 14:25 Urine Bilirubin Negative (Negative) 06/01/25 14:25 Urine Urobilinogen Negative (Negative) 06/01/25 14:25 Ur Leukocyte Esterase Negative (Negative) 06/01/25 14:25 Urine Comment 06/01/25 14:25 Adenovirus (PCR) Not Detected (NotDetected) 06/01/25 14:20 B. pertussis DNA (PCR) Not Detected (NotDetected) 06/01/25 14:20 B.parapertussis DNA PCR Not Detected (NotDetected) 06/01/25 14:20 C. pneumoniae DNA (PCR) Not Detected (NotDetected) 06/01/25 14:20 Coronavirus OC43 (PCR) Not Detected (NotDetected) 06/01/25 14:20 Coronavirus HKU1 (PCR) Not Detected (NotDetected) 06/01/25 14:20 Coronavirus 229E (PCR) Not Detected (NotDetected) 06/01/25 14:20 SARS-CoV-2 (PCR) Not Detected (NotDetected) 06/01/25 14:20 Coronavirus NL63 (PCR) Not Detected (NotDetected) 06/01/25 14:20 Human Metapneumovir PCR Not Detected (NotDetected) 06/01/25 14:20 Influenza Type A (PCR) Not Detected (NotDetected) 06/01/25 14:20 Influenza Type B (PCR) Not Detected (NotDetected) 06/01/25 14:20 M. pneumoniae (PCR) Not Detected (NotDetected) 06/01/25 14:20 Parainfluenza 1 (PCR) Not Detected (NotDetected) 06/01/25 14:20 Parainfluenza 2 (PCR) Not Detected (NotDetected) 06/01/25 14:20 Parainfluenza 3 (PCR) Not Detected (NotDetected) 06/01/25 14:20 Parainfluenza 4 (PCR) Not Detected (NotDetected) 06/01/25 14:20 RSV (PCR) Not Detected (NotDetected) 06/01/25 14:20 Entero/Rhino (PCR) Not Detected (NotDetected) 06/01/25 14:20 Impressions Chest X-Ray 05/31/25 18:43 Chest radiograph, one view History: Sepsis Comparison: May 04, 2025 Findings: Single AP view of the chest performed. No focal consolidation or pleural effusion. No pneumothorax. Emphysema. Scarring of the left lower lung similar to prior. The cardiomediastinal silhouette is within normal limits. Normal pulmonary vascularity. No evidence for lymphadenopathy. No visualized bony or soft tissue abnormality. Impression: Normal chest radiograph Electronically signed by Jesus Abdul 05-31-2025 7:42 PM Chest CTA 05/31/25 18:55 Exam(s): CTA CHEST IV Amt: 118 cc opti 320 EXAM: CT Angiography Chest With Intravenous Contrast CLINICAL HISTORY: Reason for exam: PE. TECHNIQUE: Axial computed tomographic angiography images of the chest with intravenous contrast. CTDI is 11.95 mGy and DLP is 463.52 mGy-cm. Automated exposure control was utilized for the study. A dose lowering technique was utilized adhering to the principles of ALARA. MIP reconstructed images were created and reviewed. COMPARISON: 01/15/2025 FINDINGS: Pulmonary arteries: No pulmonary embolism. Aorta: No acute findings. Normal caliber. No dissection. Lungs: Severe emphysema. No consolidation. Unchanged 7 mm nodule in the left upper lobe (series 2 image 102). Pleural space: No pleural effusion. No pneumothorax. Heart: Unremarkable. Bones/joints: No acute fracture. Soft tissues: Unremarkable. Lymph nodes: Unremarkable. IMPRESSION: 1. No pulmonary embolism. 2. Severe emphysema. Electronically signed by: Hong Chakraborty MD 05/31/25 22:02 PM Abdomen/Pelvis CT 06/01/25 21:19 Exam(s): CT ABDOMEN + PELVIS Without Contrast EXAM: CT Abdomen and Pelvis Without Intravenous Contrast CLINICAL HISTORY: Reason for exam: worsening back pain. TECHNIQUE: Axial computed tomography images of the abdomen and pelvis without intravenous contrast. CTDI is 7 mGy and DLP is 248 3 weeks head sustained myositis started toward the [employer] work she can not lift mGy-cm. Automated exposure control was utilized for the study. A dose lowering technique was utilized adhering to the principles of ALARA. COMPARISON: 04/22/2022 FINDINGS: Lung bases: Emphysema. ABDOMEN: Liver: Unremarkable. Gallbladder and bile ducts: Unremarkable. No calcified stones. No ductal dilation. Pancreas: Unremarkable. No ductal dilation. Spleen: Unremarkable. No splenomegaly. Adrenals: Unremarkable. No mass. Kidneys and ureters: Right kidney is absent. Left kidney is normal. No obstructing stones. No hydronephrosis. Stomach and bowel: No bowel obstruction. Sigmoid diverticulosis without evidence of diverticulitis. PELVIS: Appendix: Appendix not visualized. Bladder: Hyperdense material in the urinary bladder suggesting excreted contrast from previous contrast-enhanced procedure. Reproductive: Unremarkable as visualized. ABDOMEN and PELVIS: Intraperitoneal space: Unremarkable. No free air, significant free fluid, or fluid collection. Bones/joints: Severe disc degeneration L4-L5. No acute fracture or dislocation. Soft tissues: Unremarkable. Vasculature: Atherosclerosis. No abdominal aortic aneurysm. Lymph nodes: Unremarkable. No enlarged lymph nodes. IMPRESSION: No acute findings in the abdomen or pelvis. Electronically signed by: Sherice Pleitez M.D. 06/01/25 23:14 PM Ordered Studies 05/31/25 18:55 CT for pulmonary embolism PE [CT angio chest PE protocol] Stat 06/01/25 21:19 CT Abd and Pelvis [CT abd pelvis wo con] Stat Hospital Course (1) Sepsis: Assessment and plan below following discussion of case with ED provider and reviewing patient history/pertinent normal/abnormal diagnostic test results. Recurrent COPD exacerbation/complicated bronchitis Chronic respiratory failure secondary to steroid-dependent COPD and azithromycin prophylaxis on home O2 Noncompliant: Which she attributes to running out of medications due to delay in getting mail order pharmacy medications --Chest CTA:No pulmonary embolism. Severe emphysema. --Respiratory BioFire : Negative --Normal procalcitonin --Continue prednisone to 20 mg daily --Continue nebs, doxycycline -- Appreciate palliative care input --Titrate oxygen to keep saturations 88 to 92% -- Will need follow-up with pulmonology on discharge Clinically improved Plan to discharge home today Advised to follow-up with pulmonology on discharge Suspected Sepsis--less likely Reported fever, tachycardia No clear source of infection found yet BioFire, urinalysis: Normal Blood cultures: Negative to date CT chest, abdomen: No signs of infection Hypokalemia Replace and monitor Chronic diastolic heart failure (EF 60 to 65%, TTE 2024) Clinically no signs of volume overload Continue Entresto, Aldactone, metoprolol succinate, Jardiance Monitor volume status, I's and O's Coronary artery disease S/P angioplasty/stent Continue aspirin, metoprolol, Zetia Hypothyroidism TSH elevated, normal free T4 Continue levothyroxine Needs repeat thyroid function test as outpatient H/O recurrent spontaneous pneumothorax S/P Thoracotomy Hypotension Continue midodrine Other chronic conditions: cerebellar angioma as per records past tobacco abuse Mood disorder Continue home medications DVT Px: Lovenox SQ CODE STATUS Full code Disposition Home today Total Time Total Time Spent Total Time Spent (In Minutes): 44 minutes Discharge Plan Discharge Items Patient Disposition: Home - Self-Care Reason For Visit: SEPSIS Discharge Diagnosis: Recurrent COPD exacerbation/complicated bronchitis Chronic respiratory failure secondary to steroid-dependent COPD Hypokalemia Abnormal thyroid function test Condition on Discharge: Fair Activity: Per Instructions section Exercise/Sports: Gradually increase as tolerated Non-emergency contact: Primary Care Provider and 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 Call non-emergency contact if: you have any medication questions, your symptoms worsen, your pain is concerning for you and you have a fever Follow-up/Referrals: Ludy Jacobs CRNP [Primary Care Provider] - (Date & Time 06/08/2025 3:00 PM Provider: Ludy Jacobs CRNP [facility] ) Diet: Heart Healthy Addtl Attending Provider Instructions: -- Follow-up with your primary care physician Ludy LY on 06/08/2025 3:00 PM -- 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 Seek immediate medical attention if your symptoms reoccur or worsen Please review medication list provided on discharge for any medication changes as instructed. Please call if you have any questions or problems. You can reach a [facility] hospitalist on duty at [facility] 24 hours a day by calling [phone] Pending Studies at Discharge: No Stand-Alone Forms: My [facility] Spreedly, Smoking Cessation Medications and DC Order Prescriptions: Continued albuterol sulfate 2.5 mg /3 mL (0.083 %) solution for nebulization 2.5 mg continuous nebulization 4XD PRN (Reason: Wheezing) acetaminophen 500 mg Tablet 500 mg PO Q8H PRN (Reason: Pain) metoprolol succinate 50 mg Tablet Extended Release 24 Hr 75 mg PO QAM Rx Instructions: TAKE 1 & 1/2 TABLETS IN THE MORNING ezetimibe 10 mg tablet 10 mg PO QAM budesonide 0.5 mg/2 mL suspension for nebulization 0.5 mg inhalation AMPM formoterol fumarate 20 mcg/2 mL solution for nebulization 2 ml inhalation AMPM azithromycin 500 mg tablet 500 mg PO 3XWK Qty: 30 0RF Rx Instructions: On Thursday, Thursday and Thursday only fluticasone propion-salmeterol [Wixela Inhub] 500-50 mcg/dose blister with device 1 inh inhalation BID Qty: 60 0RF midodrine 2.5 mg tablet 2.5 mg PO TID Qty: 90 0RF Rx Instructions: do not give last dose of day after 6PM or within 4 hrs of bedtime sodium chloride 7 % Solution For Nebulization 4 ml NEB BIDR Qty: 240 0RF prednisone 20 mg tablet 20 mg PO UD PRN (Reason: RESCUE KIT FOR COPD) Rx Instructions: Start taking prednisone 40 mg daily for 2 days, then take 20 mg daily for 2 days methocarbamol 500 mg tablet 500 mg PO QID PRN (Reason: muscle spasms) ipratropium-albuterol 0.5 mg-3 mg(2.5 mg base)/3 mL solution for nebulization 3 ml INHALATION QID PRN (Reason: Shortness Of Breath Or Wheezing) aspirin 81 mg Tablet,Delayed Release (Dr/Ec) 81 mg PO DAILY lorazepam 0.5 mg tablet 0.5 mg PO DAILY PRN (Reason: Anxiety) omeprazole 20 mg capsule,delayed release(DR/EC) 20 mg PO [facility] folic acid 1 mg tablet 1 mg PO QAM albuterol sulfate 90 mcg/actuation HFA aerosol inhaler 2 puff INHALATION Q4H PRN (Reason: Shortness Of Breath Or Wheezing) paroxetine HCl 40 mg tablet 40 mg PO HS pregabalin 75 mg capsule 75 mg PO TID Jardiance 10 mg tablet 10 mg PO DAILY Entresto 24-26 mg tablet 1 tab PO [facility] Repatha SureClick 140 mg/mL pen injector 140 mg SUBCUT UD Rx Instructions: every 2 weeks spironolactone 25 mg tablet 12.5 mg PO QAM prednisone 5 mg tablet 5 mg PO QAM Hold Instructions: Resume on 04/27/25. levothyroxine [Synthroid] 75 mcg tablet 75 mcg PO DAILYBB Rx Instructions: MUST BE NAMEBRAND Incruse Ellipta 62.5 mcg/actuation Blister With Device 1 inh inhalation DAILY Qty: 30 0RF montelukast 10 mg Tablet 10 mg PO HS Qty: 30 0RF Discharge Orders: Discharge Order (Routine); Ordered 06/05/25 Ordered By: Mir Carreon Admission Data Admit Date/Time: 05/31/25 23:29 Attending Provider: Mir Carreon Admit Provider: Lopez Eubanks Primary Care Provider: Ludy Jacobs Other Providers: Lopez Eubanks; Nhung Frey; Bria Khoury
--- NOTE | 2025-06-06 10:56 | Coding Query ---
CODING QUERY To promote full compliance with coding requirements relating to patient care, provider participation is requested in all cases of dipper and baker uncertainty. Please assist us with the question(s) below: Coding Question(s): Sepsis/Suspeced Sepsis is documented in the record with documentation on the H&P of, "Sepsis Secondary to COPD exacerbation/complicated bronchitis", and Progress Notes 06/01 and 06/02 document, "Suspected Sepsis Reported fever, tachycardia No clear source of infection found yet", and Progress Notes 06/03, 06/04 and the Discharge Summary document, "Suspected Sepsis--less likely". It is not clear if Suspected Sepsis was still possible, or ruled-out. Please specify below, in your clinical opinion, regarding Suspected Sepsis: ( ) Suspected Sepsis was still possible. Please specify further below, in your clinical opinion, regarding the most likely source of possible Suspected Sepsis: ( x ) secondary to COPD Exacerbation/complicated bronchitis ( ) secondary to Other: Please Specify ( ) secondary to Unknown most likely source (x ) Suspected Sepsis was Ruled-Out Physician's Response(s): Thank you Rachel Strange Principal Diagnosis: "that condition established after study, to be chiefly responsible for occasioning the admission of the patient to the hospital for care." Co-Existing Principal Diagnosis: "when two or more diagnoses equally meet the criteria for principal diagnosis as determined by the circumstances of admission, diagnostic work up, and/or therapy provided, and the Alphabetic Index, Tabular List, or another coding guideline does not provide sequencing direction, any one of the diagnoses may be sequenced first." "When the physician has documented what appears to be a current diagnosis in the body of the record, but has not included the diagnosis in the final diagnostic statement, the physician should be asked whether the diagnosis should be added." (Source Coding [facility] 2 QTR90. p3-4) MTDD
== END 2025-06-05 13:53 | disposition home health service (06) | DRG 191 ==
LOC: ED 18:26 → EDINP 23:29 → SUATTDRO 23:29 → 2N 06-01 13:36